=== PATIENT | male | born 1940 | race Caucasian/White ===

== ENCOUNTER 2023-02-08 12:47 | Outpatient (OUT) | payer MEDICARE, BC, SELFPAY ==
[2023-02-08 13:21] LABS: Basophils Percent Auto 0.9 % (0.2-2.0); Eosinophils Absolute Auto 0.1 10^3/uL (0.0-0.7); Eosinophils Percent Auto 2.8 % (0.9-7.0); Hematocrit 40.3 % (42.0-54.0); Hemoglobin 13.5 g/dL (14.0-18.0); Immature Granulocytes Abs Auto 0.02 10^3/uL (0.00-0.03); Immature Granulocytes Pct Auto 0.5 % (0.0-0.5); Lymphocytes Percent Auto 22.8 % (20.5-60.0); Mean Corpuscular HGB Conc 33.5 g/dL (29.9-35.2); Mean Corpuscular Volume 92.4 fL (80.0-94.0); Mean Platelet Volume 9.2 fL (9.5-13.5); Monocytes Absolute Auto 0.4 10^3/uL (0.3-0.8); Monocytes Percent Auto 9.7 % (1.7-12.0); Neutrophils Absolute Auto 2.8 10^3/uL (1.4-6.5); Neutrophils Percent Auto 63.3 % (43.0-75.0); Platelet Count 154 10^3/uL (150-450); Red Blood Count 4.36 10^6/uL (4.70-6.10); Red Cell Distribution Width 13.4 % (11.0-15.0); White Blood Count 4.3 10^3/uL (4.0-11.0)
[2023-02-08 13:37] LABS: Estimated Average Glucose 166 mg/dL; Glycohemoglobin A1C 7.4 % (4.5-6.2)
[2023-02-08 13:55] LABS: Anion Gap 12.6; BUN Creatinine Ratio 11.9; Calcium 8.8 mg/dL (8.5-10.1); Carbon Dioxide 27.5 mmol/L (21.0-32.0); Chloride 100 mmol/L (98-107); Estimated GFR (African America 57 (>=60); Estimated GFR (Non-African Ame 47 (>=60); Glucose 193 mg/dL (74-106); Potassium 4.1 mmol/L (3.5-5.1); Sodium 136 mmol/L (136-145); Thyroid Stimulating Hormone 0.982 uIU/mL (0.358-3.740)
== END 2023-02-08 12:48 ==
PROVIDERS: PCP Internal Medicine; Visit Provider Internal Medicine
DX: I11.0 Hypertensive heart disease with heart failure (principal); I50.32 Chronic diastolic (congestive) heart failure; E11.65 Type 2 diabetes mellitus with hyperglycemia; R53.83 Other fatigue
CPT/HCPCS: 36415; 80048; 83036; 83880; 84443; 85025

== ENCOUNTER 2023-02-19 09:53 | Outpatient (OUT) | payer MEDICARE, BC, SELFPAY ==
--- NOTE | 2023-02-19 09:57 | CT_ITS ---
[address] [address] Patient Name: JOSE L AMES MRN: [id number] date: 1940 Sex: M Assigned Patient Location: CT Current Patient Location: CT Accession/Order Number: [id number] Exam Date: 02/19/2023 10:08 Report Date: 02/19/2023 10:59 At the request of: SHERIF ALEJANDRO Procedure: CT chest wo con EXAMINATION: CT chest wo con HISTORY: Bilateral pulmonary infiltrates R91.8 , weakness, chronic cough, smoker who COMPARISON: No relevant comparison available. TECHNIQUE: Multi-planar CT images were obtained without and/or with IV contrast as indicated by examination type. Axial, Coronal, and Sagittal images. Dose reduction techniques were achieved by using automated exposure control and/or adjustment of mA and/or kV according to patient size and/or use of iterative reconstruction technique. FINDINGS: LUNGS: 5 mm poorly marginated nodule within lateral aspect of right middle lobe. Calcified 10 mm nodule within the anterior base of left lower lobe. Mild emphysematous changes. No acute infiltrates. PLEURA: No mass, effusion, or pneumothorax. VASCULATURE: No abnormality. RISSA: Calcified left hilar lymph nodes compatible with chronic granulomatous disease. MEDIASTINUM: Calcified lymph nodes. CARDIAC: Atherosclerotic coronary artery disease. AORTA: No aneurysm or dissection. CHEST WALL: No mass or axillary adenopathy. BONES: No bone lesion or fracture. LIMITED ABDOMEN: Fatty infiltration of the liver. No suspicious findings Limited images of the upper abdomen. OTHER: Negative. IMPRESSION: 1. No acute infiltrates, pleural effusion, or acute findings. 2. 5 mm nodule within right middle lobe. Follow-up CT chest without contrast in 3, 6, 12, 24 months is recommended to document stability and to evaluate for change. 3. Mild emphysematous changes. Electronically authenticated by: BLAINE FONSECA Date: 02/19/2023 10:59
== END 2023-02-19 09:54 ==
LOC: CT 09:54
PROVIDERS: PCP Internal Medicine; Visit Provider Internal Medicine
DX: R91.8 Other nonspecific abnormal finding of lung field (principal)
CPT/HCPCS: 71250

== ENCOUNTER 2023-06-04 10:26 | Outpatient (OUT) | payer MEDICARE, BC, SELFPAY ==
[2023-06-04 11:02] LABS: Estimated Average Glucose 166 mg/dL; Glycohemoglobin A1C 7.4 % (4.5-6.2)
[2023-06-04 13:23] LABS: Basophils Percent Auto 0.8 % (0.2-2.0); Eosinophils Absolute Auto 0.1 10^3/uL (0.0-0.7); Eosinophils Percent Auto 2.3 % (0.9-7.0); Hemoglobin 13.3 g/dL (14.0-18.0); Immature Granulocytes Abs Auto 0.03 10^3/uL (0.00-0.03); Immature Granulocytes Pct Auto 0.6 % (0.0-0.5); Lymphocytes Percent Auto 19.5 % (20.5-60.0); Mean Corpuscular HGB Conc 33.3 g/dL (29.9-35.2); Mean Corpuscular Hemoglobin 31.9 pg (25.9-34.0); Mean Corpuscular Volume 95.9 fL (80.0-94.0); Mean Platelet Volume 10.2 fL (9.5-13.5); Monocytes Absolute Auto 0.5 10^3/uL (0.3-0.8); Monocytes Percent Auto 9.2 % (1.7-12.0); Neutrophils Absolute Auto 3.3 10^3/uL (1.4-6.5); Neutrophils Percent Auto 67.6 % (43.0-75.0); Platelet Count 148 10^3/uL (150-450); Red Blood Count 4.17 10^6/uL (4.70-6.10); Red Cell Distribution Width 12.8 % (11.0-15.0); White Blood Count 4.9 10^3/uL (4.0-11.0)
[2023-06-04 14:52] LABS: Alanine Aminotransferase 35 U/L (16-63); Albumin Globulin Ratio 1.1; Albumin Level 3.6 g/dL (3.4-5.0); Alkaline Phosphatase 95 U/L (46-116); Anion Gap 11.3; Aspartate Amino Transferase 15 U/L (15-37); BUN Creatinine Ratio 12.3; Bilirubin Total 0.3 mg/dL (0.2-1.0); Carbon Dioxide 29.1 mmol/L (21.0-32.0); Chloride 100 mmol/L (98-107); Estimated GFR (African America >60 (>=60); Estimated GFR (Non-African Ame 57 (>=60); Globulin 3.3 g/dL; Glucose 183 mg/dL (74-106); Potassium 4.4 mmol/L (3.5-5.1); Sodium 136 mmol/L (136-145); Total Protein 6.9 g/dL (6.4-8.2)
== END 2023-06-04 10:27 | disposition home or self-care (01) ==
LOC: LAB 10:29
PROVIDERS: PCP Internal Medicine; Visit Provider Internal Medicine
DX: I12.9 Hypertensive chronic kidney disease with stage 1 through stage 4 chronic kidney disease, or unspecified chronic kidney disease (principal); E11.65 Type 2 diabetes mellitus with hyperglycemia; N18.32 Chronic kidney disease, stage 3b
CPT/HCPCS: 36415; 80053; 83036; 85025

== ENCOUNTER 2023-08-15 10:55 | Outpatient (RCR) | payer MEDICARE, BC, SELFPAY | END 2023-09-01 07:00 | disposition home or self-care (01) | LOC: PT 10:55 | PROVIDERS: PCP Internal Medicine; Visit Provider Internal Medicine | DX: R42 Dizziness and giddiness (principal); M76.60 Achilles tendinitis, unspecified leg; M79.606 Pain in leg, unspecified | CPT/HCPCS: 97110; 97140; 97162 ==

== ENCOUNTER 2023-08-21 12:54 | Outpatient (OUT) | payer MEDICARE, BC, SELFPAY ==
[2023-08-21 13:18] LABS: Basophils Percent Auto 0.5 % (0.2-2.0); Eosinophils Absolute Auto 0.1 10^3/uL (0.0-0.7); Hematocrit 40.4 % (42.0-54.0); Hemoglobin 13.4 g/dL (14.0-18.0); Immature Granulocytes Abs Auto 0.02 10^3/uL (0.00-0.03); Immature Granulocytes Pct Auto 0.3 % (0.0-0.5); Lymphocytes Absolute Auto 1.4 10^3/uL (1.2-3.8); Lymphocytes Percent Auto 22.8 % (20.5-60.0); Mean Corpuscular HGB Conc 33.2 g/dL (29.9-35.2); Mean Corpuscular Hemoglobin 32.1 pg (25.9-34.0); Mean Corpuscular Volume 96.9 fL (80.0-94.0); Mean Platelet Volume 9.9 fL (9.5-13.5); Monocytes Absolute Auto 0.6 10^3/uL (0.3-0.8); Monocytes Percent Auto 10.6 % (1.7-12.0); Neutrophils Absolute Auto 3.9 10^3/uL (1.4-6.5); Neutrophils Percent Auto 64.8 % (43.0-75.0); Platelet Count 146 10^3/uL (150-450); Red Blood Count 4.17 10^6/uL (4.70-6.10); Red Cell Distribution Width 13.3 % (11.0-15.0)
[2023-08-21 13:27] LABS: Alanine Aminotransferase 40 U/L (16-63); Albumin Level 3.5 g/dL (3.4-5.0); Alkaline Phosphatase 95 U/L (46-116); Anion Gap 10.8; Aspartate Amino Transferase 11 U/L (15-37); BUN Creatinine Ratio 16.6; Bilirubin Total 0.3 mg/dL (0.2-1.0); Calcium 9.5 mg/dL (8.5-10.1); Carbon Dioxide 29.5 mmol/L (21.0-32.0); Chloride 100 mmol/L (98-107); Estimated GFR (African America 54 (>=60); Estimated GFR (Non-African Ame 44 (>=60); Globulin 3.4 g/dL; Glucose 188 mg/dL (74-106); Potassium 4.3 mmol/L (3.5-5.1); Sodium 136 mmol/L (136-145); Total Protein 6.9 g/dL (6.4-8.2)
[2023-08-21 13:43] LABS: Thyroid Stimulating Hormone 1.298 uIU/mL (0.358-3.740)
== END 2023-08-21 12:55 | disposition home or self-care (01) ==
LOC: LAB 12:55
PROVIDERS: PCP Internal Medicine; Visit Provider Internal Medicine
DX: E11.65 Type 2 diabetes mellitus with hyperglycemia (principal); E11.22 Type 2 diabetes mellitus with diabetic chronic kidney disease; N18.32 Chronic kidney disease, stage 3b; I12.9 Hypertensive chronic kidney disease with stage 1 through stage 4 chronic kidney disease, or unspecified chronic kidney disease; R53.83 Other fatigue
CPT/HCPCS: 36415; 80053; 84443; 85025

== ENCOUNTER 2023-08-21 13:13 | Outpatient (OUT) | payer MEDICARE, BC, SELFPAY ==
--- NOTE | 2023-08-21 13:16 | MR_ITS ---
The [address] [address] Patient Name: JOSE L AMES MRN: [id number] date: 1940 Sex: M Assigned Patient Location: LAB Current Patient Location: LAB Accession/Order Number: [id number] Exam Date: 08/21/2023 13:30 Report Date: 08/21/2023 15:09 At the request of: JAILYN SEPULVEDA Procedure: MR head/brain wo/w con EXAM: MR head/brain wo/w con HISTORY: Imbalance R26.89, Dizziness R42 COMPARISON: MR brain 11/03/2019. TECHNIQUE: Multiplanar multisequence MR imaging of the brain was performed with and without intravenous contrast. FINDINGS: Calvarium/skull base: No focal marrow replacing lesion suggestive of neoplasm. Orbits: Bilateral napaimute ocular lens replacements. Paranasal sinuses: Mild mucosal thickening involving the inferior right maxillary sinus. Brain: No restricted diffusion. Mild T2 FLAIR signal hyperintensities are present involving supratentorial and to a lesser extent central pontine white matter. Moderate parenchymal volume loss. No abnormal intracranial enhancement. No mass effect, hemorrhage, or hydrocephalus. Grossly normal flow-related signal in the major intracranial arteries and dural sinuses. MR/MR head/brain wo/w con IMPRESSION: No acute intracranial process. Senescent changes detailed above. Electronically authenticated by: HERNÁN DERAS Date: 08/21/2023 15:09
== END 2023-08-21 13:14 | disposition home or self-care (01) ==
LOC: LAB 13:13
PROVIDERS: PCP Internal Medicine; Visit Provider Nurse Practitioner Family
DX: E11.65 Type 2 diabetes mellitus with hyperglycemia (principal); E11.22 Type 2 diabetes mellitus with diabetic chronic kidney disease; N18.32 Chronic kidney disease, stage 3b; I12.9 Hypertensive chronic kidney disease with stage 1 through stage 4 chronic kidney disease, or unspecified chronic kidney disease; R53.83 Other fatigue; R26.89 Other abnormalities of gait and mobility; R42 Dizziness and giddiness
CPT/HCPCS: 36415; 70553; 80053; 84443; 85025; A9575

== ENCOUNTER 2023-09-02 08:42 | Outpatient (RCR) | payer MEDICARE, BC, SELFPAY | END 2023-09-03 15:55 | disposition home or self-care (01) | LOC: PT 08:42 | PROVIDERS: PCP Internal Medicine; Visit Provider Internal Medicine | DX: R42 Dizziness and giddiness (principal); M79.606 Pain in leg, unspecified; M76.60 Achilles tendinitis, unspecified leg ==

== ENCOUNTER 2023-10-01 20:53 | Outpatient (OUT) | payer MEDICARE, BC, SELFPAY ==
--- OUTSIDE RECORDS SUMMARY | 2023-10-01 20:56 | XMS_ITS | CCD ---
Author Name Unknown Address [address] [place] [address] Organization [facility] Care Team Providers Care Transmission Repairer Name Role Phone ERICH KEY Primary Care Physician [phone] DO Erich Key Primary Care Provider MD Javier Murray Admit Provider MD Randolph Velasquez Attending Provider [phone] Randolph Velasquez Attending Unavailable Erich Key Primary Care Unavailable Javier Murray Admitting Unavailable Erich Key Unavailable Pascual PRINCE Attending Unavailable NIKI, Pascual Admitting Unavailable Ramona Burnham Attending Unavailable NIKI, Pascual Attending Unavailable JAVON, ERICH Admitting Unavailable JAVON, ERICH Attending Unavailable JAVON, DR GORMAN Admitting Unavailable BALL, DR GORMAN Attending Unavailable JAVON, DR GORMAN Primary Care Unavailable BALL, DR GORMAN Consulting Unavailable JAVON, DR GORMAN Admitting Unavailable BALL, DR GORMAN Attending Unavailable BALL, DR GORMAN Primary Care Unavailable BALL, DR GORMAN Consulting Unavailable JAVON, DR GORMAN Admitting Unavailable BALL, DR GORMAN Attending Unavailable BALL, DR GORMAN Primary Care Unavailable BALL, DR GORMAN Consulting Unavailable JAVON, DR GORMAN Primary Care Unavailable HAY ., DR TRAN Admitting Unavailable HAY ., DR TRAN Attending Unavailable HAY ., DR TRAN Consulting Unavailable TROTTI, GIROLACRISTAL Consulting Unavailable Erich Key E Unavailable Unavailable Unavailable Staci Burnette Unavailable John, Dr. Connolly Referring Unavailable John, Dr. Connolly Attending Unavailable Javon, Dr. Erich Reed Primary Care See Lopez, Dr. Connolly Attending Unavailable Javon, Dr. Erich Reed Primary Care See Lopez, Dr. Connolly Referring Unavailable John, Dr. Connolly Attending Justin Key, Dr. Erich Reed Primary Care Dr. Cathleen Mckenzie Referring MD CATHLEEN Ramon Attending MD CATHLEEN Ramon Referring Unavailable Javon, Dr. Erich Reed Primary Care MD CATHLEEN Mckenzie Attending MD CATHLEEN Ramon Referring Unavailable Javon, Dr. Erich Reed Primary Care See Key, Dr. Erich Reed Primary Care MD CATHLEEN Mckenzie Attending MD CATHLEEN Ramon Referring Unavailable Javon, Dr. Erich Reed Primary Care See muller Allergies Allergy Classification Reported Allergen(s) Allergy Type Date of Onset Reaction(s) Facility (3 sources) Angiotensin Converting Enzyme (Shruti) Inhibitors; Translations: [SHRUTI Inhibitors] Allergy to substance 08-18-20 [facility] (20 sources) Acetaminophen Drug Allergy [facility] [employer] Other (1 source) Acetaminophen; Translations: [Tylenol] Drug Allergy [facility] (1 source) Acetaminophen Drug Allergy [facility] (1 source) patient allergy list reviewed by nurse or physicia Propensity to adverse reactions 07-11-20 Comment:Done [employer] Other Medications Current Medications Medication Drug Class(es) Dates Sig (Normalized) Sig (Original) acetaminophen 325 mg oral tablet (20 sources) Start: 09-10-2022 take 2 tablets by mouth every six hours as needed for pain acetaminophen 325 mg Tab 650 mg = 2 tab(s), Oral, q6hr, PRN pain, Refills(s) 0 Start Date: 09/10/22 Status: Ordered Start: 09-08-2022 take 650 mg by mouth every six hours Acetaminophen Active 650 MG PO Every 6 hours 0 September 08, 2022 12:00am take 1-2 tablets by mouth every eight hours as needed Acetaminophen 325 MG Oral Tablet TAKE 1 TO 2 TABLETS EVERY 8 HOURS NEEDED. Quantity: 0 Refills: 0 Ordered: 12-Nov-2022 DO Active take 2 tablets by mo ut every eight hours as needed for pain Acetaminophen 325 MG 2 tablets Orally every 8 hours as needed for pain/fever Active albuterol 0.83 mg/ml inhalation solution (14 sources) beta2-Adrenergic Agonist Start: 09-10-2022 take 2.5 mg by inhalation every four hours albuterol 0.083% Inh Idalia 3 mL 2.5 mg, 3 mL, NEB, q4hr Shortness of breath or wheezing, Refill(s) 0 Start Date: 09/10/22 Status: Ordered Albuterol Sulfat e (2.5 MG/3ML) 0.083% 3 mL as needed Inhalation every 6 hrs Not-Taking albuterol 0.833 mg/ml / ipratropium bromide 0.167 mg/ml inhalation solution (1 source) Anticholinergic, beta2-Adrenergic Agonist Start: 09-08-2022 take 1 mL by inhalation three times daily Ipratropium-Albuterol Active 3 ML INHALATION Three times daily September 08, 2022 12:00am amLODIPine 10 mg oral tablet (20 sources) Dihydropyridine Calcium Channel David Start: 09-08-2022 take 1 tablet by mouth every twenty-four hours amLODIPine Besylate 10 MG 1 tablet Orally Once a day Sep, Active take 1 tablet by mouth once kulwant y Norvasc 5 MG Oral Tablet Take 1 tablet daily Quantity: 0 Refills: 0 Ordered: 11-Mar-2023 DO Active amoxicillin 875 mg / clavulanate 125 mg oral tablet (1 source) Penicillin-class Antibacterial Start: 09-08-2022 take 1 tablet by mouth twice daily Amoxicillin-Pot Clavulanate Active 1 TAB PO Twice daily 14 September 08, 2022 12:00am aspirin 81 mg delayed release oral tablet (20 sources) Platelet Aggregation Inhibitor, Nonsteroidal Anti-inflammatory Drug Start: 09-10-2022 take 1 tablet by mouth once daily aspirin 81 mg Oral EC Tab 81 mg = 1 tab(s), Oral, Daily, Refills(s) 0 Start Date: 09/10/22 Status: Ordered Start: 02-19-2018 take 1 tablet by krunal th every twenty-four hours Aspirin 81 81 MG 1 tablet Orally Once a day Jan, Active Start: 02-19-2018 take 1 tablet by mouth once da daren Aspirin 81 81 MG 1 tablet Orally Once a day Jan, Active Start: 02-19-2018 120 actuat budesonide 0.16 mg/actuat / formoterol fumarate 0.0045 mg/actuat metered dose inhaler (18 sources) Corticosteroid, beta2-Adrenergic Agonist Start: 09-08-2022 Budesonide-Formoterol (Symbicort) 160-4.5 mcg/actuation HFA aerosol inhaler Active 1 INH INHALATION Twice daily 10.2 September 08, 2022 12:00am take 2 puff(s) by mouth twice da daren Symbicort 160-4.5 MCG/ACT Inhalation Aerosol INHALE 2 PUFFS TWICE DAILY. RINSE MOUTH AFTER USE. Quantity: 3 Refills: 0 Ordered: 12-Nov-2022 DO Active take 2 puff(s) by inhalation twi ce daily Symbicort 160-4.5 MCG/ACT 2 puffs Inhalation Twice a day Active carboxymethylcellulose sodiu m 5 mg/ml ophthalmic solution (20 sources) Refresh Tears 0. 5 % as directed Ophthalmic Active take 1 drop(s) into the eye(s) four times daily Refresh Tears 0.5 % Ophthalmic Solution INSTILL 1 DROP INTO BOTH EYES 4 TIMES DAILY. Quantity: 0 Refills: 0 Ordered: 12-Nov-2022 DO Active Centrum Silver 50+Men - (14 sources) Centrum Silver 5 0+Men - as directed Orally Active cephalexin 500 mg oral capsule (1 source) Cephalosporin Antibacterial Start: 2023 take 1 capsule by mouth every eight hours Cephalexin 500 MG 1 capsule Orally tid for 7 days Sep, Active cholecalciferol 0.01 mg oral tablet (4 sources) Vitamin D Start: 09-04-2022 take 10 ug by mouth once daily Cholecalciferol (Vitamin D3) Active 10 MCG PO Daily September 04, 2022 12:00am take 1 capsule by [facility] every twenty-four hours Vitamin D3 25 MCG (1000 UT) 1 capsule Orally Once a day Active Vitamin D3 125 M CG (5000 UT) Oral Capsule TAKE DIRECTED. Quantity: 0 Refills: 0 Ordered: 11-Mar-2023 DO Active Clotrimazole-Betameth & Zn Ox 1-0.05 & 20 % (12 sources) Clotrimazole-Bet ameth & Zn Ox 1-0.05 & 20 % as directed Externally Active cyclobenzaprine hydrochloride 5 mg oral tablet (20 sources) Muscle Relaxant take 1 tablet by mouth every twenty-four hours Cyclobenzaprine HCl 5 MG 1 tablet at bedtime as needed Orally Once a day Active doxycycline hyclate 100 mg oral tablet (1 source) Tetracycline- class Drug Start : 09-08 take 100 mg by mouth every twelve hours Doxycycline Hyclate Active 100 MG PO Q12H 10 September 08, 2022 12:00am 120 actuat fluticasone propionate 0.115 mg/actuat / salmeterol 0.021 mg/actuat metered dose inhaler (20 sources) Corticosteroi d, beta2-Adrener gic Agonist Start : 10-07 take 2 puff(s) by inhalation twice daily Advair HFA 115-21 MCG/ACT 2 puffs Inhalation Twice a day Replaces Symbicort Oct, Active Start: 10-07-2022 take 2 puff(s) by in halation every twelve hours Advair HFA 115-21 MCG/ACT Inhalation Aerosol INHALE 2 PUFFS AT 12 HOUR INTERVALS (MORNING AND EVENING). Quantity: 0 Refills: 0 Ordered: 12-Nov-2022 DO Active FreeStyle Lite Test - (20 sources) FreeStyle Lite T est - TEST TWICE DAILY*E11.9* for 25 Active glucagon (rdna) 1 mg injecti on (20 sources) Antihypoglycemic Agent Glucagon Emergen cy 1 MG/ML Injection Solution Reconstituted PRN for low Blood Glucose Quantity: 0 Refills: 0 Ordered: 12-Nov-2022 DO Active glucose 0.4 mg/mg oral gel (1 source) Start: 09-08-2022 Dextrose (Glut ose-15) 40 % Gel Active 0.6 GM PO PRN 0 September 08, 2022 12:00am 12 hr guaiFENesin 600 mg extended release oral tablet (1 source) Start: 09-08-2022 take 1 tablet by krunal th twice daily, then take 1 tablet by mouth every twelve hours Guaifenesin (Mucinex) 600 mg Tablet Extended Release 12hr Active 600 MG PO Twice daily September 08, 2022 12:00am Insulin Aspart U-100 (Novolog Flexpen U-100 Insulin) 100 unit/mL (3 mL) Insulin Pen (2 sources) Start: 09-08-2022 inject 1 dose by subcutaneous injection once at mealtime Insulin Aspart U-100 (Novolog Flexpen U-100 Insulin) 100 unit/mL (3 mL) Insulin Pen Active 1 sliding scale dose SUBCUT 3X/Day with meals and bedtime 0 September 08, 2022 12:00am Start: 09-08-2022 inject 5 [IU] by sub cutaneous injection once before mealtime Insulin Aspart U-100 (Novolog Flexpen U-100 Insulin) 100 unit/mL (3 mL) Insulin Pen Active 5 UNITS SUBCUT 3x/Day before meals 0 September 08, 2022 12:00am 3 ml insulin glargine 100 unt/ml pen injector (20 sources) Insulin Analog Start: 09-10-2022 Lantus Solosta r Pen 100 units/mL subcutaneous solution 20 unit(s), SubCutaneous, Daily, Refills(s) 0 Start Date: 09/10/22 Status: Ordered Start: 09-08-2022 Insulin Glargi ne (Lantus Solostar U-100 Insulin) 100 unit/mL (3 mL) Insulin Pen Active 15 UNITS SUBCUT Daily 0 September 08, 2022 12:00am Lantus SoloStar 100 UNIT/ML 20 units Subcutaneous daily Active Lactobacillus Combination No.4 (Probiotic) 3 billion cell capsule (1 source) Start: 09-08-2022 take 3 capsules by mouth once daily Lactobacillus Combination No.4 (Probiotic) 3 billion cell capsule Active 3000 MMU CELLS PO Daily September 08, 2022 12:00am administer with a meal lisinopril 20 mg oral tablet (20 sources) Angiotensin Converting Enzyme Inhibitor Start: 09-19-2022 End: 10-19-2022 take 1 tablet by mouth once daily lisinopril 20 mg Tab 20 mg = 1 tab(s), Oral, Daily, X 30 day(s), # 30 tab(s), Refills(s) 0, Pharmacy: [facility]/pharmacy #[id number], 180, cm, 08/07/21 10:07:00 EST, Height/Length Dosing, 110.8, kg, 08/07/21 10:07:00 EST, Weight Dosing Start Date: 09/19/22 Stop Date: 10/19/22 Status: Ordered Start: 09-08-2022 take 10 mg by mouth once daily Lisinopril Active 10 MG PO Daily September 08, 2022 12:00am Start: 12-23-2020 End: 09-08-2022 take 20 mg by mouth once daily Lisinopril Discontinued 20 MG PO Daily September 04, 2022 12:00am September 08, 2022 9:19am metFORMIN hydrochloride 1000 mg oral tablet (20 sources) Biguanide Start: 12-23-2020 take 1 tablet by mouth twice daily metformin 1000 mg oral tablet 1,000 mg = 1 tab(s), Oral, BID, Refills(s) 0 Start Date: 12/23/20 Status: Ordered take 1 tablet by krunal th every twelve hours metFORMIN HCl - 1000 MG Oral Tablet TAKE 1 TABLET EVERY 12 HOURS Quantity: 180 Refills: 0 Ordered: 12-Nov-2022 DO Active mupirocin 0.02 mg/mg topical ointment (20 sources) RNA Synthetase Inhibitor Antibacterial Mupirocin 2 % 1 appl ication Externally Twice a day for 30 days Active Mupirocin 2 % Ex ternal Ointment APPLY SPARINGLY TO AFFECTED AREA(S) TWICE DAILY Quantity: 0 Refills: 0 Ordered: 12-Nov-2022 DO Active potassium chloride 10 meq extended release oral tablet (20 sources) Start: 09-25-2022 take 1 tablet by krunal th every twenty-four hours Klor-Con 10 10 MEQ 1 Tablet Orally daily for 30 day(s) Sep, Active Start: 09-10-2022 take 1 tablet by krunal th once daily potassium chloride 15 mEq oral tablet, extended release 15 mEq = 1 tab(s), Oral, Daily, Refills(s) 0 Start Date: 09/10/22 Status: Ordered Start: 09-08-2022 take 15 mEq by mouth once kulwant y Potassium Chloride Active 15 MEQ PO Daily September 08, 2022 12:00am predniSONE 10 mg oral tablet (1 source) Start: 09-08-2022 take 1 tablet by mouth twice daily, then take 1 tablet by mouth once daily, then take 0.5 tablet by mouth once daily Prednisone Active 10 MG PO As Directed September 08, 2022 12:00am Take 1 tablet twice a day for 5 days then 1 tablet daily for 5 days then half a tablet daily Bronwyn-Bid Probiotic - (12 sources) Bronwyn-Bid Probiotic - as directed Orally Active Symbicort 160/4.5 inhalation aerosol with adapter (3 sources) Start: 09-10-2022 take 2 puff(s) by inhalation twice daily Symbicort 160/4.5 inhalation aerosol with adapter 2 puff(s), Inhalation, BID, Refill(s) 0 Start Date: 09/10/22 Status: Ordered tamsulosin hydrochloride 0.4 mg oral capsule (20 sources) alpha-Adrenergic David Start: 05-08-2021 take 1 capsule by mouth once daily tamsulosin 0.4 mg Cap 0.4 mg = 1 cap(s), Oral, Daily, Refills(s) 0 Start Date: 05/08/21 Status: Ordered tiotropium 0.018 mg inhalation powder (20 sources) Anticholinergic Start: 09-10-2022 take 1 capsule by inhalation once daily Spiriva HandiHaler 18 mcg inhalation capsule 18 mcg = 1 cap(s), Inhalation, Daily, Refills(s) 0 Start Date: 09/10/22 Status: Ordered Start: 09-08-2022 take 1 capsule by in halation once daily Tiotropium Power (Spiriva With Handihaler) 18 mcg capsule, w/inhalation device Active 1 CAP INHALATION Daily September 08, 2022 12:00am puncture 1 cap using device; one dose = 2 inhalations Spiriva HandiHal er 18 MCG 1 Casule Inhalation Once a day for 30 days Active tiZANidine 2 mg oral tablet (20 sources) Central alpha-2 Adrenergic Agonist take 0.5-1 tablets by mouth once daily at bedtime tiZANidine HCl 2 MG TAKE 1/2 TO 1 TABLET BY MOUTH EVERY DAY AT BEDTIME for 30 Active torsemide 10 mg oral tablet (20 sources) Loop Diuretic Start: 09-08-2022 take 1 tablet by mouth every twenty-four hours Torsemide 10 MG 1 tablet Orally Once a day Sep, Active Torsemide 10 MG 2 Orally daily Active Vitamin D3 25 MCG (1000 UT) (20 sources) take 1 capsule by mouth once len ly Vitamin D3 25 MCG (1000 UT) 1 capsule Orally Once a day Active Completed/Discontinued Medications Medication Drug Class(es) Dates Sig (Normalized) Sig (Original) azithromycin 250 mg oral tablet (3 sources) Macrolide Antimicrobial Start: 01-10-2023 Azithromycin 250 MG Oral Tablet Quantity: 6 Refills: 0 Ordered: 10-Jan-2023 DO Start : 10-Jan-2023 Complete Start: 01-10-2023 Azithromycin 2 50 MG as directed Orally daily for 5 days December, Active B-12 - up to 1000 mcg (20 sources) Start: 07-23-2023 B-12 - up to 1 000 mcg Jul, 1000 mcg Start: 06-18-2023 B-12 - up to 1 000 mcg Jun, 1000 mcg Start: 03-20-2023 B-12 - up to 1 000 mcg Mar, 1000 mcg Start: 02-11-2023 Start: 02-11-2023 B-12 - up to 1 000 mcg Jan, 1000 mcg Start: 01-10-2023 Start: 01-10-2023 B-12 - up to 1 000 mcg December, 1000 mcg Start: 11-28-2022 Start: 11-28-2022 B-12 - up to 1 000 mcg Oct, 1000 mcg Start: 10-26-2022 Start: 10-26-2022 B-12 - up to 1 000 mcg Oct, 1000 mcg Start: 09-24-2022 Start: 09-24-2022 B-12 - up to 1 000 mcg Sep, 1000 mcg carvedilol 6.25 mg oral tablet (16 sources) alpha-Adrenergic David, beta-Adrenergic David Start: 12-17-2022 take 1 tablet by mouth twice daily at mealtime Carvedilol 6.25 MG Oral Tablet TAKE 1 TABLET TWICE DAILY WITH MEALS. Quantity: 180 Refills: 1 Ordered: 17-Dec-2022 Cathleen Lopez MD Start : 17-Dec-2022 Active new start D/C Amlodipine celecoxib 100 mg oral capsule (1 source) Nonsteroidal Anti-inflammatory Drug Start: 09-04-2022 End: 09-08-2022 take 100 mg by mouth twice daily Celecoxib Discontinued 100 MG PO Twice daily September 04, 2022 12:00am September 08, 2022 9:19am DermacinRx Therazole Rocky 1-0.05 & 20 % External Therapy Pack (5 sources) DermacinRx Therazole Rocky 1-0.05 & 20 % External Therapy Pack as directed Quantity: 0 Refills: 0 Ordered: 12-Nov-2022 DO Active ferrous sulfate (11 sources) take 1 tablet by mouth once daily Ferrous Sulfate 325 (65 Fe) MG 1 tablet Orally Once a day Not-Taking take 1 tablet by krunal th every twenty-four hours Ferrous Sulfate 325 (65 Fe) MG 1 tablet Orally Once a day Not-Taking fluticasone propionate 0.05 mg/actuat metered dose nasal spray (20 sources) Corticosteroid Start: 09-04-2022 End: 09-08-2022 Fluticasone Propionate (Flonase) 50 mcg/actuation [place],Suspension Discontinued 1 SPRAY INTRANASAL Daily September 04, 2022 12:00am September 08, 2022 9:19am take 2 spray(s) nasal route once daily Fluticasone Propionate 50 MCG/ACT USE 2 SPRAYS IN EACH NOSTRIL ONCE DAILY for 90 Active take 2 spray(s) nasal route once daily Fluticasone Propionate 50 MCG/ACT USE 2 SPRAYS IN EACH NOSTRIL ONCE DAILY for 90 Active take 2 spray(s) nasal route once daily Flonase 50 MCG/ACT SUSP SPRAY 2 SPRAYS INTO EACH NOSTRIL EVERY DAY Quantity: 0 Refills: 0 Ordered: 12-Nov-2022 DO Active hydroCHLOROthiazide 12.5 mg oral tablet (1 source) Thiazide Diuretic Start: 09-04-2022 End: 09-08-2022 take 12.5 mg by mouth once daily Hydrochlorothiazide Discontinued 12.5 MG PO Daily September 04, 2022 12:00am September 08, 2022 9:19am Hydrochlorothiazide-12. 5 mg 12.5 MG (11 sources) Start: 02-19-2018 take 1 capsule by mouth once daily in the morning Hydrochlorothiazide-12 .5 mg 12.5 MG 1 capsule in the morning Orally Once a day Jan, Not-Taking 3 ml insulin aspart, human 100 unt/ml pen injector (1 source) Insulin Analog Start: 09-10-2022 NovoLOG FlexPen 100 units/mL injectable solution 5 unit(s), SubCutaneous, TIDAC, plus 150-199 3, 200-249 4, 250-299 7, 300-349 10, 350-399 12, 400-449 14, >450 20, Refills(s) 0 Start Date: 09/10/22 Status: Ordered ketoconazole 20 mg/ml topical cream (1 source) Azole Antifungal Start: 02-07-2023 Ketoconazole 2 % External Cream Quantity: 60 Refills: 0 Ordered: 07-Feb-2023 DO Start : 07-Feb-2023 Complete meloxicam 15 mg oral tablet (11 sources) Nonsteroidal Anti-inflammator y Drug take 1 tablet by mouth every twenty-fou r hours Meloxicam 15 MG 1 tablet Orally Once a day Not-Taking oxybutynin chloride 5 mg oral tablet (20 sources) Cholinergic Muscarinic Antagonist Start: 09-04-2022 End: 09-08-2022 take 5 mg by mouth at bedtime Oxybutynin Chloride Discontinued 5 MG PO Bedtime September 04, 2022 12:00am September 08, 2022 9:19am Start: 08-07-2021 take 1 tablet by krunal th once daily oxybutynin 10 mg ER Tab 10 mg = 1 tab(s), Oral, Daily, # 30 tab(s), Refills(s) 11, Pharmacy: [facility]/pharmacy #[id number], 180, cm, 08/07/21 10:07:00 EST, Height/Length Dosing, 110.8, kg, 08/07/21 10:07:00 EST, Weight Dosing Start Date: 08/07/21 Status: Ordered Problems Active Problems Problem Classification Problem Date Documented Da te Episodic/Chronic Abdominal pain (20 sources) Abdominal pain; Translations: [Unspecified abdominal pain] Resolved: 06-10-2020 Episodic Acute and unspecified renal failure (1 source) Acute kidney failure, unspecified; Translations: [ACUTE KIDNEY FAILURE UNSPECIFIED] Onset: 09-06-2022 Episodic Acute posthemorrhagic anemia (20 sources) Acute posthemorrhagic anemia; Translations: [Acute posthemorrhagic anemia] Episodic Administrative/social admission (4 sources) Counseling procedure with explicit context; Translations: [Tobacco abuse counseling] Onset: 09-04-2022 09-08-2022 Episodic Aortic; peripheral; and visceral artery aneurysms (20 sources) Aneurysm of left common iliac artery; Translations: [Aneurysm of iliac artery] Chronic Chronic kidney disease (11 sources) Chronic kidney disease stage 3A ; Translations: [Chronic kidney disease, Stage III (moderate)] Chronic Chronic obstructive pulmonary disease and bronchiectasis (20 sources) Chronic obstructive lung disease; Translations: [Chronic obstructive pulmonary disease, unspecified] Onset: 09-04-2022 Chronic Complications of surgical procedures or medical care (1 source) Infection following a procedure, other surgical site, initial encounter Episodic Conditions associated with dizziness or vertigo (6 sources) Benign paroxysmal positional vertigo; Translations: [Benign paroxysmal vertigo, bilateral] Episodic Congestive heart failure; nonhypertensive (20 sources) Diastolic heart failure; Translations: [Unspecified diastolic (congestive) heart failure] Onset: 09-04-2022 09-08-2022 Chronic Deficiency and other anemia (3 sources) Anemia due to blood loss 09-10-2022 Chronic Deficiency and other anemia (20 sources) Anemia due to chronic blood loss; Translations: [Iron deficiency anemia secondary to blood loss (chronic)] Chronic Deficiency and other anemia (20 sources) Pernicious anemia; Translations: [Vitamin B12 deficiency anemia due to intrinsic factor deficiency] Episodic Deficiency and other anemia (7 sources) Vitamin B12 deficiency anemia due to intrinsic factor deficiency; Translations: [VITAMIN B12 DEF ANEMIA DUE IF DEF] Onset: 11-01-2021 Episodic Diabetes mellitus with complications (20 sources) Type 2 diabetes mellitus; Translations: [Type 2 diabetes mellitus with hyperglycemia] Onset: 09-06-2022 Chronic Diabetes mellitus without complication (19 sources) Type 2 diabetes mellitus without complication; Translations: [Type 2 diabetes mellitus without complications] Onset: 07-03-2018 Chronic Disorders of lipid metabolism (20 sources) Mixed hyperlipidemia; Translations: [Mixed hyperlipidemia] Onset: 07-03-2018 12-23-2020 Chronic Diverticulosis and diverticulitis (20 sources) Diverticulosis of colon; Translations: [Diverticulosis of large intestine without perforation or abscess without bleeding] Onset: 07-03-2018 12-23-2020 Chronic Essential hypertension (20 sources) Essential hypertension; Translations: [Essential (primary) hypertension] Onset: 04-24-2022 Chronic Fever of unknown origin (3 sources) Fever, unspecified; Translations: [FEVER UNSPECIFIED] Onset: 09-04-2022 Episodic Fracture of upper limb (20 sources) Closed fracture of surgical neck of humerus; Translations: [Closed fracture of humerus] Onset: 04-28-2021 09-10-2022 Episodic Genitourinary symptoms and ill-defined conditions (7 sources) Urge incontinence; Translations: [Urge incontinence of urine] Onset: 09-10-2022 Chronic Genitourinary symptoms and ill-defined conditions (20 sources) Increased frequency of urination; Translations: [Micturition frequency and polyuria] Onset: 09-04-2022 Resolved: 06-10-2020 12-27-2020 Episodic Headache; including migraine (6 sources) Headache; Translations: [Headache, unspecified] Episodic Hyperplasia of prostate (20 sources) Benign prostatic hypertrophy with outflow obstruction; Translations: [Lower urinary tract symptoms due to benign prostatic hypertrophy] Onset: 07-03-2018 12-23-2020 Chronic Hypertension with complications and secondary hypertension (2 sources) Hypertensive heart disease with heart failure; Translations: [Hypertensive heart and chronic kidney disease] Onset: 12-11-2022 Chronic Immunizations and screening for infectious disease (6 sources) Vaccination given; Translations: [Encounter for immunization] Episodic Inflammatory conditions of male genital organs (1 source) Acute prostatitis Episodic Malaise and fatigue (20 sources) Asthenia; Translations: [Other malaise] Onset: 01-08-2019 09-07-2022 Episodic Miscellaneous mental health disorders (20 sources) Occipital headache; Translations: [Occipital headache] Chronic Nutritional deficiencies (20 sources) Vitamin D deficiency; Translations: [Vitamin D deficiency, unspecified] Onset: 11-01-2021 Chronic Other aftercare (20 sources) Long-term current use of insulin; Translations: [intermediate (current) use of insulin] Episodic Other aftercare (20 sources) H/O: high risk medication; Translations: [Other termite helper (current) drug therapy] Episodic Other aftercare (1 source) Other custodial (current) drug therapy; Translations: [OTH ASSISTED CURRENT DRUG THERAPY] Onset: 09-06-2022 Episodic Other aftercare (1 source) ad terminal makeup operator (current) use of aspirin; Translations: [ASSISTED CURRENT USE OF ASPIRIN] Onset: 09-06-2022 Episodic Other aftercare (1 source) intermediate (current) use of oral hypoglycemic drugs; Translations: [LD TEACHER USE ORAL HYPOGLYCEMIC DX] Onset: 09-06-2022 Episodic Other aftercare (5 sources) Post-discharge follow-up; Translations: [Other follow-up examination] Episodic Other aftercare (3 sources) intermediate (current) use of insulin Episodic Other aftercare (6 sources) Long-term current use of drug therapy; Translations: [Other termite helper (current) drug therapy] Episodic Other connective tissue disease (20 sources) Other symptoms and signs involving the nervous system; Translations: [Suspected sleep apnea] Episodic Other connective tissue disease (1 source) Achilles tendinitis, right leg Episodic Other diseases of veins and lymphatics (20 sources) Peripheral venous insufficiency; Translations: [Venous insufficiency (chronic) (peripheral)] Episodic Other diseases of veins and lymphatics (5 sources) Venous insufficiency (chronic) (peripheral) Episodic Other ear and sense organ disorders (20 sources) Impacted cerumen; Translations: [Impacted cerumen, right ear] Onset: 10-16-2018 Resolved: 06-10-2020 Episodic Other gastrointestinal disorders (20 sources) Flatulence, eructation and gas pain; Translations: [Abdominal distension (gaseous)] Episodic Other hematologic conditions (6 sources) Raised cardiac enzyme or marker; Translations: [Other specified abnormalities of plasma proteins] 09-04-2022 Episodic Other hematologic conditions (6 sources) Other specified abnormalities of plasma proteins; Translations: [Other abnormal blood chemistry] Onset: 09-04-2022 09-08-2022 Episodic Other injuries and conditions due to external causes (20 sources) 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, left arm, subsequent encounter; Translations: [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, left arm, subsequent encounter] Episodic Other injuries and conditions due to external causes (6 sources) History of fall; Translations: [History of falling] Episodic Other lower respiratory disease (1 source) Computed tomography result abnormal; Translations: [Other nonspecific abnormal finding of lung field] 09-08-2022 Episodic Other lower respiratory disease (2 sources) Other nonspecific abnormal finding of lung field; Translations: [Other nonspecific abnormal finding of lung field] Onset: 09-04-2022 Episodic Other lower respiratory disease (20 sources) Dyspnea; Translations: [Shortness of breath] Episodic Other lower respiratory disease (1 source) Hypoxemia; Translations: [HYPOXEMIA] Onset: 09-06-2022 Episodic Other lower respiratory disease (2 sources) Shortness of breath; Translations: [SHORTNESS OF BREATH] Onset: 09-06-2022 Episodic Other lower respiratory disease (4 sources) Dyspnea on exertion; Translations: [Shortness of breath] Episodic Other nervous system disorders (20 sources) Unsteadiness on feet; Translations: [Unsteady] Episodic Other nervous system disorders (6 sources) Abnormal gait; Translations: [Unsteadiness on feet] Episodic Other nervous system disorders (3 sources) General unsteadiness; Translations: [Unsteadiness on feet] Episodic Other non-epithelial cancer of skin (20 sources) 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; Translations: [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, including shoulder] Onset: 08-21-2022 Episodic Other nutritional; endocrine; and metabolic disorders (20 sources) Obese class I; Translations: [Body mass index (BMI) 34.0-34.9, adult] Onset: 07-11-2018 Chronic Other nutritional; endocrine; and metabolic disorders (20 sources) Obesity; Translations: [Obesity, unspecified] Chronic Pneumonia (except that caused by tuberculosis or sexually transmitted disease) (11 sources) Pneumonia; Translations: [Pneumonia, unspecified organism] Onset: 09-04-2022 Episodic Residual codes; unclassified (1 source) Disorientated; Translations: [Disorientation, unspecified] Onset: 09-10-2022 Episodic Residual codes; unclassified (1 source) Edema; Translations: [Edema, unspecified] Onset: 09-10-2022 Episodic Residual codes; unclassified (3 sources) Delirium 09-10-2022 Episodic Residual codes; unclassified (3 sources) Dependent edema 09-10-2022 Episodic Residual codes; unclassified (1 source) Tobacco user; Translations: [Tobacco use] 09-08-2022 Episodic Residual codes; unclassified (1 source) Tobacco use; Translations: [Tobacco use] Onset: 09-04-2022 Episodic Residual codes; unclassified (2 sources) Edema of lower extremity; Translations: [Edema] Episodic Respiratory failure; insufficiency; arrest (adult) (2 sources) Acute respiratory failure; Translations: [Acute respiratory failure with hypoxia] 09-04-2022 Episodic Respiratory failure; insufficiency; arrest (adult) (1 source) Respiratory failure; insufficiency; arrest (adult); Translations: [Acute respiratory failure with hypoxia] Onset: 09-04-2022 Septicemia (except in labor) (1 source) Sepsis, unspecified organism; Translations: [SEPSIS UNSPECIFIED ORGANISM] Onset: 09-06-2022 Episodic Skin and subcutaneous tissue infections (20 sources) Carbuncle of buttock; Translations: [Carbuncle of buttock] Episodic Spondylosis; intervertebral disc disorders; other back problems (20 sources) Lumbar spondylosis; Translations: [Spondylosis without myelopathy or radiculopathy, lumbar region] Onset: 07-03-2018 12-23-2020 Chronic Substance-related disorders (20 sources) Nicotine dependence; Translations: [Nicotine dependence, cigarettes, uncomplicated] Onset: 07-11-2018 Chronic Unclassified (3 sources) Asymptomatic microscopic hematuria 12-27-2020 Unclassified (3 sources) 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 05-08-2021 Unclassified (1 source) CONTACT W/AND (SUSP) EXPOS COVID-19; Translations: [CONTACT W/AND (SUSP) EXPOS COVID-19] Onset: 09-06-2022 Past or Other Problems Problem Classification Problem Date Documented Da te Episodic/Chronic Chronic kidney disease (3 sources) Chronic kidney disease Deficiency and other anemia (4 sources) Iron deficiency anemia, unspecified; Translations: [IRON DEFICIENCY ANEMIA UNSPECIFIED] Onset: 2 Episodic Mycoses (6 sources) Candidiasis of skin and nails; Translations: [Candidiasis of skin and nail] Resolved: 0 Episodic Other ear and sense organ disorders (6 sources) Cellulitis of right external ear; Translations: [Cellulitis of right external ear] Resolved: 0 Episodic Other gastrointestinal disorders (6 sources) H/O: gastrointestinal disease; Translations: [Personal history of other diseases of the digestive system] Resolved: 0 Episodic Other gastrointestinal disorders (6 sources) Altered bowel function; Translations: [Change in bowel habit] Resolved: 0 Episodic Other nutritional; endocrine; and metabolic disorders (9 sources) Simple obesity ; Translations: [Other obesity due to excess calories] Resolved: 0 05-01-2021 Chronic Other screening for suspected conditions (not mental disorders or infectious disease) (6 sources) Disorder of cardiovascular system; 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] Onset: 8 Episodic Residual codes; unclassified (6 sources) Reduced libido; Translations: [Decreased libido] Onset: 8 Episodic Screening and history of mental health and substance abuse codes (12 sources) Ex-smoker; Translations: [Personal history of tobacco use] Onset: 8 Episodic Comment on above: quit smoking in 2019 ; Spondylosis; intervertebral disc disorders; other back problems (6 sources) Backache; Translations: [Unspecified backache] Onset: 8 Episodic Unclassified (18 sources) Abdominal aortic aneurysm, without rupture, unspecified; Translations: [Abdominal aortic aneurysm, without rupture, unspecified] Results Test Name Value Interpretation Reference Range Facility Office Visit (Cardiology)on 03-11-2023 Follow-up visit Diagnoses/Problems Assessed Diastolic dysfunction with chronic heart failure (428.32) (I50.32) Hypertension (401.9) (I10) SOB (shortness of breath) on exertion (786.05) (R06.02) Diabetes (250.00) (E11.9) Class 1 obesity with body mass index (BMI) of 33.0 to 33.9 in adult (278.00,V85.33) (E66.9,Z68.33) Lower extremity edema (782.3) (R60.0) Orders Class 1 obesity with body mass index (BMI) of 33.0 to 33.9 in adult Healthy Weight Tips; Status:Complete; Done: [id number] Some eating tips that can help you lose weight.; Status:Complete; Done: [id number] Diabetes Hemoglobin A1C; Status:Canceled; Hyperlipidemia ALT - Alanine Aminotransferase, Serum; Status:Canceled; AST; Status:Canceled; Lipid Panel; Status:Canceled; Patient Instructions Please bring all medicines, vitamins, and herbal supplements with you when you come to the office. Prescriptions will not be filled unless you are compliant with your follow up appointments or have a follow up appointment scheduled as per instruction of your physician. Refills should be requested at the time of your visit. Follow up as needed only The provider reviewed the following test(s) and result(s) with the patient: echocardiogram and Myocardial perfusion study Chief Complaint JOSE L MAURICIO is being seen for a 6 month follow-up of. History of Present Illness Patient is accompanied by . Most recently seen in December 2019 at that time because of significant lower extremity edema we had suggested that he stop the amlodipine. Patient's complaint is fatigue. He denies any shortness of breath. He is quite ambivalent about his medical regimen, says that he does not look at the instructions and he does not know what he takes. He then points to his to be responsible for all his medications, she has a list but the list may not be accurate because it does not the patient remains on amlodipine. No recent laboratory data to review. Patient says that he is under the care of multiple physicians, who prescribed multiple medications, and it is very difficult for him to keep track of them all. Does not report any symptoms of hypoglycemia. Very high clinical suspicion for sleep apnea, in fact patient was sleeping in his chair when I walked into the room. Apparently sleep study has been recommended, but patient would not want to proceed. He says he feels fine . Assessment: 1 hospital stay September 2022 with acute hypoxemic respiratory failure, treated as pneumonia, there is some concern for diastolic heart failure 2. Elevated troponin-raising concern for underlying coronary artery disease, in patient with several risk factors 3. Ex smoker for more than 60 years, having quit about 2 years ago. 4. COPD 5. Hypertension 6. Increased BMI 7. BPH 8. Type 2 diabetes, insulin requiring 9. History of open reduction and internal fixation of fracture of the left arm, history of TURP in 2014, history of colon resection 10. Echocardiogram September 2022-LVEF 60 to 65% impaired LV relaxation/diastolic dysfunction mild concentric LVH upper septal hypertrophy/sigmoid septum grossly normal valves aortic root 4 cm TAPSE 2.6 cm LV end-systolic dimension 2.8 cm RVSP could not be estimated 11. There is an EKG from the hospital dated 09/05/2022, that calls the rhythm to be atrial fibrillation however to my review it looks like sinus with isolated supraventricular premature beats. There is left axis deviation, deviation 12. Lexiscan Myoview December 2022-normal, transient ischemic dilatation 0.91, LVEF 63%, evidence of inferior apical attenuation artifact. 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 14. Lower extremity edema may improve if amlodipine is discontinued. Recommendations: 1. At this point, in order to minimize confusion from recommendations from multiple providers, and given the inconsistency regarding medical therapy, I will see Jose L on an as-needed basis, I will defer his blood pressure management to his primary care. If primary MD feels that patient should see me, I will be more than happy to reevaluate him. Patient with multiple cardiac risk factors multiple comorbidities, with recent hospital stay in the setting of hypoxemic respiratory failure due to pneumonia, could not exclude diastolic heart failure, and had mild elevation of troponin. Diagnosis is elevated troponin not related to myocardial injury, but possibly related to supply demand mismatch. Patient has chronic diastolic heart failure Shortness of breath class III multifactorial EKG today sinus rhythm 85 first-degree AV block NM interval 218 ms compared to EKG of 09/05/2022 heart rate has decreased. 1 Uses cane as ambulatory aid, no falls Surgical History Problems History of Arm surgery History of Cataract surgery History of Colon surgery History of Complete colonoscopy History of Tonsillectomy Current Meds Medication NameInstruction Acetaminophen 325 MG Or (more content not included)... Normal [facility] Tobacco Screening.on 023 Fall risk assessment a) No falls within the last year [facility] 250 DO Work Phone: Tobacco use status [facility] b) No M [facility] [employer] y 250 DO Work Phone: Office Visit (Cardiology)on 12-17-2022 Follow-up visit Patient Instructions Please bring all medicines, vitamins, and herbal supplements with you when you come to the office. Prescriptions will not be filled unless you are compliant with your follow up appointments or have a follow up appointment scheduled as per instruction of your physician. Refills should be requested at the time of your visit. Follow up in 3 months1 1 Amended By: Margie Garcia; Dec 17 2022 3:05 PM REBECAChijunior Lazo JOSE L MAURICIO is being seen for testing results. History of Present Illness Patient is accompanied by to the office. Has multiple cardiac risk factors including suboptimally controlled diabetes. He is here to go over results of his stress test. 1 Has not noticed any chest pressure tightness heaviness palpitations lightheadedness orthopnea or PND, does have lower extremity edema for which she was prescribed torsemide by primary care. Patient is complaining about the increased frequency of urination. Test results were reviewed. 1 This cardiology consultation was prompted by a hospital stay at [facility]. Patient was admitted in transfer from [facility], with hypoxemia cough congestion, treated for pneumonia, CT apparently showed more diffuse changes, raising the possibility for pulmonary vascular congestion. 1 Smoker for 60 years previously heavy recently half pack per day Flat elevation of troponin, not consistent with acute coronary syndrome or plaque rupture, however patient with high risk for having underlying coronary artery disease. Physical examination is notable for significant i.e. 3+ bilateral lower extremity edema. Recent laboratory data showed GFR 1 of 53 consistent with stage IIIa kidney disease. Hemoglobin A1c from September 02 of this year was elevated at 9.8, patient may have been on prednisone at that time. 1 Assessment: 1 1. 1 hospital stay September 2022 1 with acute hypoxemic respiratory failure, treated as pneumonia, there is some concern for diastolic heart failure 2. Elevated troponin-raising concern for underlying coronary artery disease, in patient with several risk factors 3. Ex smoker for more than 60 years, having quit about 2 years ago. 4. COPD 5. Hypertension 6. Increased BMI 7. BPH 8. Type 2 diabetes, insulin requiring 9. History of open reduction and internal fixation of fracture of the left arm, history of TURP in 2014, history of colon resection 10. Echocardiogram September 2022-LVEF 60 to 65% impaired LV relaxation/diastolic dysfunction mild concentric LVH upper septal hypertrophy/sigmoid septum grossly normal valves aortic root 4 cm TAPSE 2.6 cm LV end-systolic dimension 2.8 cm RVSP could not be estimated 11. There is an EKG from the hospital dated 09/05/2022, that calls the rhythm to be atrial fibrillation however to my review it looks like sinus with isolated supraventricular premature beats. There is left axis deviation 12. Lexiscan Myoview December 2022-normal, transient ischemic dilatation 0.91, LVEF 63%, evidence of inferior apical attenuation artifact. 1 Patient with multiple cardiac risk factors multiple comorbidities, with recent hospital stay in the setting of hypoxemic respiratory failure due to pneumonia, could not exclude diastolic heart failure, and had mild elevation of troponin. Diagnosis is elevated troponin not related to myocardial injury, but possibly related to supply demand mismatch. Patient has chronic diastolic heart failure Shortness of breath class III multifactorial 1 Uses cane as ambulatory aid, no falls Significant lower extremity edema, possibly related to diabetic nephropathy?, Amlodipine could be a contributory factor, alternatively chronic right-sided heart failure is not excluded, PA pressure could not be estimated on recent echocardiogram. Patient does not report any shortness of breath but seems to have a relatively limited activity lifestyle. Recommendations: 1. Discontinue amlodipine in view of the fact that lower extremity edema may improve 2. Carvedilol 6.25 mg p.o. twice daily, we were holding off on beta-blockers due to respiratory issues, at recent hospital stay 3. Follow-up in 2 to 3 months, at which time we will recommend further changes in medication such as? Adding Farxiga if affordable. Alternatively, will defer the decision of Kaylynn or Deep to Dr. Joiner.1 1 Amended By: Cathleen Lopez; Dec 17 2022 3:23 PM ESTCurrent Meds Medication NameInstruction Acetaminophen 325 MG Oral TabletTAKE 1 TO 2 TABLETS EVERY 8 HOURS NEEDED. Advair HFA 115-21 MCG/ACT Inhalation AerosolINHALE 2 PUFFS AT 12 HOUR INTERVALS (MORNING AND EVENING). Aspirin 81 MG Oral Tablet Delayed ReleaseTAKE 1 TABLET DAILY. DermacinRx Therazole Rocky 1-0.05 AND 20 % External Therapy Packas directed Flexeril 5 MG TABSTAKE 1 TABLET AT BEDTIME NEEDED. Flonase 50 MCG/ACT SUSPSPRAY 2 SPRAYS INTO EACH NOSTRIL EVERY DAY Glucagon Emergency 1 MG/ML Injection Solution ReconstitutedPRN for low Blood Glucose Klor- (more content not included)... Normal [place] Tobacco Screening.on 023 Adult depression screening assessment No [facility] [facility] [employer] 250 DO Work Phone: Fall risk assessment a) No falls within the last year [facility] 250 DO Work Phone: Tobacco use status [facility] b) No M [facility] 250 DO Work Phone: [facility] CARDIAC STRESS/REST INJE CTIONon 12-11-2022 [facility] CARDIAC STRESS/REST INJECTION Patient Name: JOSE L MAURICIO STUDY: MYOCARDIAL PERFUSION STRESS TEST WITH LEXISCAN Performing facility: [facility], [address] [place] [address], [address], [place] [id number] [facility] Provider: Cathleen Lopez MD, [facility] PCP: Dr. Alejandro KEY Supervising provider: Liz Morales MD INDICATION: R77.8: Elevated troponin I50.32: Diastolic dysfunction with chronic heart failure HISTORY: Gender: M; Age: 82 y/o ; Height: 0 cm; Weight: 216.8732426 kg. Diabetes; High Cholesterol; HTN; SOB; COPD; Quit smoking 2 years ago. COMPARISON: No comparison. ACCESSION NUMBER(S): [id number]; [id number]; [id number] ORDERING CLINICIAN: CATHLEEN LOPEZ TECHNIQUE: ONE DAY protocol. Stress injection: Date:12/11/22, 33.2 mCi of Myoview IV 20 seconds after rapid injection of Lexiscan. Rest injection: Date: 12/12/22, 35.2 mCi of Myoview IV at rest. The patient had a rapid injection of 0.4 mg of Lexiscan IV over 10 seconds. Imaging was performed by gated tomographic technique. Reason for Lexiscan: CANE STRESS TEST DATA: Resting heart rate was 78 BPM. Resting blood pressure was 136/78 mmHg. Peak blood pressure was 130/74 mmHg. Peak heart rate was 90 BPM. TEST TERMINATED DUE TO: Protocol completed FINDINGS: STRESS TEST RESULTS: Resting electrocardiogram revealed normal sinus rhythm. There were no significant ischemic ECG changes or dysrhythmias. The patient did not have chest pains/symptoms during procedure. There was a normal recovery phase. IMAGING RESULTS: Image quality was good. Rest and stress tomographic images were reviewed and revealed normal perfusion without evidence of ischemia, myocardial infarction, or left ventricular dilatation with stress. Overall left ventricular systolic function appeared to be normal without regional wall motion abnormalities. Ejection fraction was 63%. TID is 0.91 and is normal. There was evidence of inferoapical attenuation artifact. IMPRESSION: Normal Lexiscan Myoview cardiac perfusion stress test. No evidence of ischemia or myocardial infarction by perfusion imaging. Normal left ventricular systolic function, ejection fraction 63%. No previous studies are available for comparison. Electronically signed by: IRINA HALL MD Normal [facility] No Panel Informationon 12-11 [facility] 250 DO Work Phone: Office Visit (Cardiology)on 11-12-2022 Follow-up visit Diagnoses/Problems Assessed Hypertension (401.9) (I10) Hyperlipidemia (272.4) (E78.5) Elevated troponin (790.6) (R77.8) COPD (chronic obstructive pulmonary disease) (496) (J44.9) Hospital discharge follow-up (V67.59) (Z09) Diabetes (250.00) (E11.9) Diastolic dysfunction with chronic heart failure (428.32) (I50.32) Class 1 obesity with body mass index (BMI) of 34.0 to 34.9 in adult (278.00,V85.34) (E66.9,Z68.34) Former smoker (V15.82) (Z87.891) quit smoking in 2019 SOB (shortness of breath) on exertion (786.05) (R06.02) Orders Class 1 obesity with body mass index (BMI) of 34.0 to 34.9 in adult Healthy Weight Tips; Status:Complete; Done: 12Nov2022 Some eating tips that can help you lose weight.; Status:Complete; Done: 12Nov2022 Diastolic dysfunction with chronic heart failure, Elevated troponin NM Cardiac Stress/Rest Nuclear Med Order; Status:Hold For - Scheduling; Requested for:12Nov2022; Radiologist to Determine Optimal Study : Y What are the patient's signs and symptoms? : ELEVATED TROPONIN Elevated troponin IO EKG Electrocardiogram- 12 Lead; Status:Complete; Done: 12Nov2022 SocHx: Former smoker Tobacco Use Screening; Status:Complete; Done: 12Nov2022 Patient Instructions Please bring all medicines, vitamins, and herbal supplements with you when you come to the office. Prescriptions will not be filled unless you are compliant with your follow up appointments or have a follow up appointment scheduled as per instruction of your physician. Refills should be requested at the time of your visit. Follow-up after testing completed Chief Complaint JOSE L MAURICIO is being seen for CAD referral S/P [facility] [place]. History of Present Illness 82-year-old with multiple cardiac risk factors is being seen in cardiology consultation at the request of Dr. Key for evaluation of coronary artery disease. Patient ambulates with the help of a cane, and is very careful to avoid falls. 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 Accompanied by to the office. All medications so far are refilled by Dr. Key. This cardiology consultation was prompted by a hospital stay at [facility]. Patient was admitted in transfer from [facility], with hypoxemia cough congestion, treated for pneumonia, CT apparently showed more diffuse changes, raising the possibility for pulmonary vascular congestion. Reviewed extensive records and hospital chart. Reviewed Dr. Velasquez's discharge summary. Smoker for 60 years previously heavy recently half pack per day Flat elevation of troponin, not consistent with acute coronary syndrome or plaque rupture, however patient with high risk for having underlying coronary artery disease. Beta-blockers are being avoided because of the extent of COPD with reactive airway disease during hospital stay. Assessment: 1. Recent hospital stay with acute hypoxemic respiratory failure, treated as pneumonia, there is some concern for diastolic heart failure 2. Elevated troponin-raising concern for underlying coronary artery disease, in patient with several risk factors 3. Ex smoker for more than 60 years, having quit about 2 years ago. 4. COPD 5. Hypertension 6. Increased BMI 7. BPH 8. Type 2 diabetes, insulin requiring 9. History of open reduction and internal fixation of fracture of the left arm, history of TURP in 2015, history of colon resection 10. Echocardiogram September 2022-LVEF 60 to 65% impaired LV relaxation/diastolic dysfunction mild concentric LVH upper septal hypertrophy/sigmoid septum grossly normal valves aortic root 4 cm TAPSE 2.6 cm LV end-systolic dimension 2.8 cm RVSP could not be estimated 11. There is an EKG from the hospital dated 09/05/2022, that calls the rhythm to be atrial fibrillation however to my review it looks like sinus with isolated supraventricular premature beats. There is left axis deviation, Patient with multiple cardiac risk factors multiple comorbidities, with recent hospital stay in the setting of hypoxemic respiratory failure due to pneumonia, could not exclude diastolic heart failure, and had mild elevation of troponin. Diagnosis is elevated troponin not related to myocardial injury, but possibly related to supply demand mismatch. Patient has chronic diastolic heart failure Shortness of breath class III multifactorial EKG today sinus rhythm 85 first-degree AV block NM interval 218 ms compared to EKG of 09/05/2022 heart rate has decreased. Uses cane as ambulatory aid, no falls Recommendations: 1. In addition to ongoing risk factor modification, we will proceed with a Lexiscan Myoview. Follow-up after testing sooner if interval problems arise. Thank you for allowing us to participate in patient's care. Please do not hesitate to call if further questions arise, Sincerely, Cathleen Lopez MD [facility] I told patient that he should bring his inhalers and use them prior to his perfusion study. Current (more content not included)... Normal [facility] Tobacco Screening.on 023 Adult depression screening assessment No [facility] 250 DO Work Phone: Fall risk assessment a) No falls within the last year [facility] 250 DO Work Phone: Tobacco use status CP b) No M [facility] 250 DO Work Phone: Coding Summary.on 10-22-2022 Coding Summary. [id number] Gh0bWw+PGhlYWQ+PE1FV QDsW46stGLqrZ0MD4lRN N4UKHDBYYPLID8ZPG3cd RY0THxdZ3VqsnQr JekkkMXdGA87VMd5NOU6 sFioSLkpjP9jxZAmG6c6 EuIzWT74sQ45CLyzRNCz MfX4McFinikehZXv L4ssAhLobNYcNfx+PHRh YmxlIHdpZHRoPScxMDAl VmRpmYtdPP4lPa6uTZKm LWNvbGxhcHNlOiBj a9wnBALtLItyYA4qbRmc F5CybPC9BJArd9k7Gx78 dHI+ELYgZKO5eClgIZzs o445YcHxh9vpZSP6 wLBqNLazVML7S91kw3A0 TPLgXAMpKGZ4cUI7fX6a zQigixutG1EjsYIuOgQ8 PQB1cEQitV3ctArp lkbkyM1sOzq+H42IZX6W BIGYHW1KTyb3A7RwEdfn dHI+YI90IDQcYF15gDUd hTZda4lpgAc6IlUp CRLdQDL6eXieENprg0Wr NDPlD89mvWRsm9B9GFHw mCnfkSYaQySilFY4sD0w GLotlbmak4cwplqb Gjntr1zasj11yW13B71y NOorFNBaQXH4LPZdOYZu gNgtiu5pnU5mQm9+IDxj l2phk8iewYn7NuEg MLVwyiKvdOvzHJI7s4Ib Fc74E2MgdUmpw2HmGqj3 np65uQRya2Q1aVF6UQsg YFEdwI2fHHfwOjG7 EAGfHbXhiP06pVQwZPit Uk0fnVqkoCveLG1eDGXh kullFSRszT2yHLJqsJJn pJhoNM0kVPKgnefy o966EtYdOZC6GCJfjBHc E1RjnB1lCiDkJHKlSCSq I2AwyARaZYnsE654AUcl SzE1WSIsstUeX4Dy JNFnkRcaSiL4j4N4So0V e1ImqiqfKOG0YDksUBGp JvOaKzHbDiO3S7GmFcf2 CQYphWruJX1mU0Jy FPBvhvyqxesxdBK9EIPo ICNtiZ50yTAiEIdmIi2y e8M2q796FPOkVINlmR91 Wb4jlYniSERvdJDV mL3ngkwcj2lrgusiQqOg UVZvBTr9LWw2JVMywAha ZvMlADV7SmD7UUT9bPAq sY2roVqkkfisxL9o Oyc+I73rpL0dERD2VXO9 fzodQWCqyyXlHL84OP29 O4HmYhbeeRAfgMZ+PGRp rcUgpXrhAN5vOyCi c7smj8LkGSymW5BtRPAj MNcrOmt2XTTsJZC4qSI9 hL0vFUYeQCczk9R5uTD9 D0QxkpXdac4va1lc VDPfUUdvE16ncWCge7L9 UHZhnAW8NPTmmEmlMbSj aB78Jvq+UKAkwUjos2Pj Dbdvu3alk2npbQm1 IjMwJSIgdmFsaWduPSJ0 t7XpKe23Q31yBJlcTQNc FHWhEIBhRLFoqYdxkk3e xQ1kKc5+PGNvbCB3 qUP7lA6zKMLfWmU0GAxj V011FaDgdXZfPdfrz0sy x7nykBc9LpNmJRUvmcLg xGqjMJK8w4DiPj91 T12wNCnpAQAoPGZtQMAk NXMvpCesaw8cbR2bPv8+ VA0on1ryay58vI01sOS+ WSYjQBK3qPfyOAad TIDpjI0mEZjyJwK9YMRj AlUljH53bKMwAFiiAy9g aVqzcBykUG4iWCYrrdlc t865ZwKoy6kwLMBe sDOsTBmvWZD3A64xs9O2 JYXoNBYnJNW3bNQ1kD2v bGlnbjogbGVmdDsgdmVy yGumCQzrHIyhE655 IHRvcDsnPlBhdGllbnQg JdTlLNi4S7AmSpr6IGJu dXicCE6oeYQjBTfeKo6w qPqcxDupQZ0aJSDx rrzfh716MeAqp1qsBSLi dBMsHUxoKON4V79cf3L3 UUThUTOvGGP2dCC0xH9w bGlnbjogbGVmdDsg ijFmmQlfTVetYYrpU483 IHRvcDsnPkJpcnRoIERh sZV0ZS48EW62bTFzr9X5 yWV5Z2LoCRQzcnst idzbvWX6XGBcOEGqaO07 Da6fmGjyGg1gGJOhIFO3 CMYguZYfA3VlnQ1vOeVq LGPlYCBlM3DfpTQb ELdkK412XCsxYaS7EDIy ziSvU5HtJQUxwBlhEvV4 m0E8Ts2KF6N8EN21GO14 tXNnp7S3eLZ0L1Of GTNvgqketrqebJJ2ODLd IEAyuY93Xo4ngIyyFq0e GETkGJR4YEHmuRUwM5Uf cF2lBoEmOMUbVEOq P5MxgANgAFehD072WHat MzP0WMThkxBxK5MxJHUc aDapMrU4l4H4Xl5YOTq3 CD58KJ81mPDfu4V7 vOO5P3MqZOWpetjrxgta wVF2BYYnKRVadO48Ub2b vTdqHn5uWUMwWRO3VRQb aAVvI0OtqM6bKsZi IRFaFESpH5WtrKMtUMip R531XWtoEgO6IJQwxiYs G4NoXHVczTptUhD2m1L4 At7VGBPwIX23ETZ6 tLS6DB42MV47C6IyQokh dGFibGU+PHRhYmxlIHdp ZHRoPScxMDAlJyBzdHls UQ2xVb7uVRVxMBTi jTrghLKiGdDcc5szLVLh JXsgMV5txVrqO8InyCD3 DEEkp0f5Ha55E18sE1Dv dXA+AHFqoUG5uLO0 fB8cAvJlXbV9ZObiE791 JbGiuCAjCqfoc1xyc3vf mUu8FjN1RHDobfRanWxe KYW2y9EbVa54J74x IHdpZHRoPSIxNSUiIHZh jJjksc7hhP5uJm1+PGNv yCA2zBR4wZ5fWjHmJwW6 XApiX046PvNfaBTq Ladrw8yel1wdvAt9XuKo MLNnyrOziGovIBD7q2Hj Ju29O5RqmAfkq8ViWvg0 mq01nSZbz8F1oZG5 X2XvDFLerigdeKYfrBxb PI9mLWZfrihqICSubC1z SFJvT2l2AeIdUxJ2WLdr G0IcbyZ9IBLtkCSw JIaoKKC2C50cd5V1STBe PMBxRDG8wFG4zW3dwHvo bjogbGVmdDsgdmVydGlj QOylMJqoX066WFPy qMhsHVShtQ2bFVEyoCRh uShaMI3nZWSqzdlkKymR AnGbZUzBNyZWMPk9I8Cd Pxi2NNFbcQicOZ7c iIArJQfuDy7jiZagaMpz IG8cDRTiycyrAWTulD7o VZWngCScyXwzVS8gIMOw ysiff121MySmQCP4 JPHvbPWqP1XwdD6rQyRh PYUiVTYbQ9PmtIKgXWqu G127LTyxRxT2AISifkYe P5CcUDEsjLvhXeP3 r0X2Vv1hVG4wET6gMQU9 NQ59LD92oKUux0S7uCE2 N2TzFMGmgtneskzoxAO7 HBOsKPLqzR46gXRk CWkwNi9sf6M8u000MTMl DXYaoX94Zp7eyJhoZZLh pUCBvA3vzobir3uqqdew UcAjECXhNFq5KEo3 TAYgnCnbReFlXJK6CjR6 KQH4tCNdgX0okYewkyva mD4lMri+ODQgWWVhcnM8 C1DdYku0IYLldPtt TV9isPBvBFkjOl1riWzo hTsgQL0zMPLykhqeFLXy dF2zKFTyaJIwqYyxXM6j JKIosoroy936YbRb SRB9MIKkqXIcH6UvnY7s KlPjWTFvGLBvF3BhoSXh CVxmR137NVcxHlL1RMMx ysPmF4UcGYXqlKar CbE3i3I9Kg9MTGgpUC51 UM72pKXyj7C2lPD6F7Xo PXRfbamfilyqyIB7YYWh FKZehZ93kULtKYnh Iy7of7B5w845OTWnYZLo zX12Do1wkPneVKNnuXJM gP9offsms6lxrcqcJwSd RERgMZu0XYv2ERFk pJjpJgGoUCT3EdR6ZFA5 bOQydT5eiWelufradW3m Oyc+PaWmtVTvnU9qOE02 JW91H9OwPvqjrTTl bGU+PHRhYmxlIHdpZHRo SPjtEAZsJgMntYmkCT1y Mq8xVTMsWQHspSvkcGDb IfFev8aqGLByVFpa ML1pjNztB0DahKC9MDMy g5z2Ik72F94kZ8MofKR+ LXNvuPO5fSL0oO2lRvVy TcD1WPxrG365IzBk eMGdYpbgc3gmk5dcnSa7 IjMwJSIgdmFsaWduPSJ0 c5TrHi14D16tGHunNFOi PSIyMCUiIHZhbGln zj6deK5gMw6+PGNvbCB3 lVU5yF1iQjSxFiB4WGgp P967DwGwmHUmRhbdI70b V9OviAN+PHRyPjx0 ZWItmKpaLN7rrTYhLQje Rj8pRHK9DvCrXtHuYFvf X0OhZAAvhokzmjrtmQD0 GVQzPNEmkD19Eh2i yXlzEx7sXVCmYRV7KYUp pPCqP7OueA4qLvHfXZZs ZZQtN1OrcCLnPBnvQ831 IRmyYrP8RRJyawIz W9WnDBOmtIvqSoQ6v1B8 Gg9NdIylqPTzQF3xOmOb CPc3N4EzHre7AEUjuPps ZG0pkVBoTHidKr0o gSrrqObmGK9rWPTrodoq j238KlUvs3ctNRVbfJDh SIjaDUA3N94mk5K9JKSs TVQwNTN0kKU5gG4b bGlnbjogbGVmdDsgdmVy oGzuNExgQPdyM707FNBx oLhgQfFLZpi0W1DgWsb9 WZVexNfwNC8xuAHo AHpdCt6kjIquzLamUL0p AXFresnqw230SeXtc2yc ZNYbaQElGZzbTIZ8W77w w3T8XCPiCNGwGEX1 lBQ5aA2rsNbqprlcxZMx dDsgdmVydGljYWwtYWxp X042BJZdqYozGf3IOvd8 Y5IgLry9CXBllAgu JP9cwAVmJSocWp7qnLzn eEacPU3eOLItnnore806 WuGgm8vdDBGnyENaXVvq AWK0M67pj3E7KMNr JISrPIG5rMO1uJ1nbBke bjogbGVmdDsgdmVydGlj SIztSSkhY774YCMreAum PlBheWVyOjwvdGQ+ HS22dw41G0CbUjasFwb9 POUvBSI9pOF4jZ9vHMLq GZvcy9G9xZC8J6UlxnPq uu4ng5hcJQGqPVmv Y29s (more content not included)... Normal [facility] Auto Diffon 10-18-2022 Basophils/100 WBC (Bld) 0.5 % Normal 0.0-2.0 F [facility] Comment on above: Order Comment: Order Added by Discern Expert. Performed By: #### 2 322071, 30550017, 3402541, 4367507, 7109260 #### [facility] [address] [place] [address] Basophils/Leukocytes Auto (Bld) [Pure # fraction] 0.0 E9/L Normal 0.0-0.2 [facility] Comment on above: Order Comment: Order Added by Discern Expert. Performed By: #### 2 928231, 32046774, 9214899, 4496800, 5501000 #### [facility] [address] [place] [address] Eosinophils/100 WBC (Bld) 3.3 % Normal 0.0-8.0 [facility] Comment on above: Order Comment: Order Added by Discern Expert. Performed By: #### 2 074227, 47941983, 0399173, 4316983, 4268404 #### [facility] [address] [place] [address] Eosinophils/Leukocytes Auto (Bld) [Pure # fraction] 0.2 E9/L Normal 0.0-0.5 [facility] Comment on above: Order Comment: Order Added by Discern Expert. Performed By: #### 2 795643, 35314361, 3682304, 8860774, 9185752 #### [facility] [address] [place] [address] Lymphocytes/100 WBC (Bld) 22.0 % Normal 14.0-50.0 [facility] Comment on above: Order Comment: Order Added by Discern Expert. Performed By: #### 2 637380, 15457384, 2613680, 7405629, 2970734 #### [facility] [address] [place] [address] Lymphocytes/Leukocytes Auto (Bld) [Pure # fraction] 1.3 E9/L Normal 1.0-4.0 [facility] Comment on above: Order Comment: Order Added by Silvia Expert. Performed By: #### 2 286800, 03193165, 3637717, 4767497, 3339642 #### [facility] [address] [place] [address] Monocytes/100 WBC (Bld) 9.4 % Normal 4.0-14.0 [facility] Comment on above: Order Comment: Order Added by Silvia Expert. Performed By: #### 2 740836, 36065355, 1798375, 0123211, 4048123 #### [facility] [address] [place] [address] Monocytes/Leukocytes Auto (Bld) [Pure # fraction] 0.6 E9/L Normal 0.2-1.0 [facility] Comment on above: Order Comment: Order Added by Silvia Expert. Performed By: #### 2 422180, 71771139, 2312800, 1999251, 8199359 #### [facility] [address] [place] [address] Neutrophils/100 WBC (Bld) 64.8 % Normal 36.0-75.0 [facility] Comment on above: Order Comment: Order Added by Silvia Expert. Performed By: #### 2 334839, 77530500, 9602569, 9623666, 9260484 #### [facility] [address] [place] [address] Neutrophils/Leukocytes Auto (Bld) [Pure # fraction] 4.0 E9/L Normal 2.0-7.5 [facility] Comment on above: Order Comment: Order Added by Discern Expert. Performed By: #### 2 254569, 10279832, 5495852, 2979157, 8962388 #### [facility] [address] [place] [address] CBC w/ Auto Diffon 3 Erythrocyte distribution width (RBC) [Ratio] 15.5 % High 10.9-14.2 [facility] Comment on above: Performed By: #### 2 224174, 96880158, 9558494, 6803326, 4437064 #### [facility] [address] [place] [address] Hematocrit (Bld) [Volume fraction] 37.5 % Low 37.7-49.0 [facility] Comment on above: Performed By: #### 2 002181, 14962436, 0808186, 2086819, 1022242 #### [facility] [address] [place] [address] Hemoglobin (Bld) [Mass/Vol] 12.5 g/dL Low 13.5-17.5 [facility] Comment on above: Performed By: #### 2 857548, 61190641, 5217626, 2897916, 3311046 #### [facility] [address] [place] [address] MCH (RBC) [Entitic mass] 30.6 pg Normal 27.0-34.0 [facility] Comment on above: Performed By: #### 2 630617, 82052698, 5806204, 6704183, 2500434 #### [facility] [address] [place] [address] MCHC (RBC) [Mass/Vol] 33.3 g/dL Normal 31.4-36.0 [facility] Comment on above: Performed By: #### 2 939596, 95237065, 2513187, 7523201, 6731761 #### [facility] [address] [place] [address] MCV (RBC) [Entitic vol] 91.8 fL Normal 80.0-100.0 [facility] Comment on above: Performed By: #### 2 986222, 36956672, 0271972, 0739703, 5405930 #### [facility] [address] [place] [address] Platelet mean volume (Bld) [Entitic vol] 7.9 fL Normal 6.4-10.8 [facility] Comment on above: Performed By: #### 2 971798, 84879668, 9066044, 9662361, 9124012 #### [facility] [address] [place] [address] Platelets (Bld) [#/Vol] 185.0 E9/L Normal 150.0-500.0 [facility] Comment on above: Performed By: #### 2 112659, 79801284, 0520789, 9783488, 6048510 #### [facility] [address] [place] [address] RBC (Bld) [#/Vol] 4.1 E12/L Low 4.3-5.9 [facility] Comment on above: Performed By: #### 2 558966, 24261376, 1301759, 5936580, 6426171 #### [facility] [address] [place] [address] WBC corrected for nucl RBC Auto (Bld) [#/Vol] 6.1 E9/L Normal 4.0-11.0 [facility] Comment on above: Performed By: #### 2 809622, 83130542, 9571277, 5599499, 0982945 #### [facility] [address] [place] [address] CMPon 10-18-2022 Albumin [Mass/Vol] 3.7 g/dL Normal 3.3-5.0 [facility] Comment on above: Performed By: #### 2 592116, 63406029, 0100072, 5167451, 0301164 #### [facility] [address] [place] [address] Albumin/Globulin (S) [Mass conc ratio] 1.2 Normal 1.1-2.2 [facility] Comment on above: Performed By: #### 2 633720, 02644339, 9434719, 2060113, 2359564 #### [facility] [address] [place] [address] ALP [Catalytic activity/Vol] 88 Int._Unit/L Normal 21-98 [facility] Comment on above: Performed By: #### 2 569969, 26297638, 0796571, 3496715, 6548493 #### [facility] [address] [place] [address] ALT No additional P-5'-P [Catalytic activity/Vol] 22 Int._Unit/L Normal 6-46 [facility] Comment on above: Performed By: #### 2 554415, 26692160, 5407483, 2021901, 1641269 #### [facility] [address] [place] [address] Anion gap [Moles/Vol] 14 mmol/L Normal 6-16 [facility] Comment on above: Performed By: #### 2 492305, 38929591, 2740479, 2792898, 0497196 #### [facility] [address] [place] [address] AST [Catalytic activity/Vol] 22 Int._Unit/L Normal 5-43 [facility] Comment on above: Performed By: #### 2 236503, 18281834, 1373287, 9454685, 0339038 #### [facility] [address] [place] [address] Bilirubin [Mass/Vol] 0.5 mg/dL Normal 0.0-1.1 [facility] Comment on above: Performed By: #### 2 272041, 50789780, 4493660, 6096030, 2632079 #### [facility] [address] [place] [address] Calcium [Mass/Vol] 9.1 mg/dL Normal 8.9-11.1 [facility] Comment on above: Performed By: #### 2 835944, 46233591, 9367063, 2706634, 5335147 #### [facility] [address] [place] [address] Chloride [Moles/Vol] 99 mmol/L Low 101-111 [facility] Comment on above: Performed By: #### 2 715438, 84110695, 9772825, 9316177, 0291669 #### [facility] [address] [place] [address] CO2 [Moles/Vol] 28 mmol/L Normal 21-31 [facility] Comment on above: Performed By: #### 2 267108, 65794540, 3424958, 0620781, 5964945 #### [facility] [address] [place] [address] Creatinine [Mass/Vol] 1.3 mg/dL Normal 0.5-1.3 [facility] Comment on above: Performed By: #### 2 343382, 85165824, 3349965, 5327711, 0347713 #### [facility] [address] [place] [address] Globulin (S) [Mass/Vol] 3.2 g/dL Normal 1.4-4.0 F [facility] Comment on above: Performed By: #### 2 805872, 41417064, 3014144, 8424931, 6589135 #### [facility] [address] [place] [address] Glucose [Mass/Vol] 102 mg/dL Normal 55-199 [facility] Comment on above: Result Comment: If t his glucose result represents a fasting glucose, interpretation should refer to the following reference range: 55-99 mg/dL Performed By: #### 2 557604, 98301184, 3560988, 2895683, 1231371 #### [facility] [address] [place] [address] Potassium [Moles/Vol] 4.8 mmol/L Normal 3.5-5.3 [facility] Comment on above: Performed By: #### 2 447534, 86776674, 2436219, 9720095, 4846685 #### [facility] [address] [place] [address] Protein [Mass/Vol] 6.9 g/dL Normal 6.0-7.8 [facility] Comment on above: Performed By: #### 2 929002, 00289700, 2070686, 8767574, 4517848 #### [facility] [address] [place] [address] Sodium [Moles/Vol] 136 mmol/L Normal 135-145 [facility] Comment on above: Performed By: #### 2 201034, 61106422, 3640886, 3316584, 3995397 #### [facility] [address] [place] [address] Urea nitrogen [Mass/Vol] 18 mg/dL Normal 5-21 [facility] Comment on above: Performed By: #### 2 107046, 50801279, 6059065, 2483379, 3242348 #### [facility] [address] [place] [address] Urea nitrogen/Creatinine [Mass ratio] 14 No Units Normal 10-20 [facility] Comment on above: Performed By: #### 2 805084, 57205423, 9149558, 3316866, 7381532 #### [facility] [address] [place] [address] TSHon 10-18-2022 TSH Qn 1.62 m[IU]/L Normal 0.34-5.60 [facility] Comment on above: Performed By: #### 2 100336, 46779574, 6728396, 1064379, 7400972 #### [facility] [address] [place] [address] Urinalysison 10-18-2022 Bilirubin Ql (U) Negative Normal Negative [facility] Comment on above: Performed By: #### 2 103675, 37205673, 3142474, 1054538, 9149782 #### [facility] [address] [place] [address] Clarity (U) CLEAR Normal Clear [facility] Comment on above: Performed By: #### 2 457384, 18302858, 0667895, 1453200, 5594992 #### [facility] [address] [place] [address] Color (U) YELLOW Normal Yellow [facility] Comment on above: Performed By: #### 2 214731, 21487687, 2350741, 8029970, 3242324 #### [facility] [address] [place] [address] Epithelial cells.squamous LM.HPF (Urine sed) [#/Area] 0-2 Normal 0-2 [facility] Comment on above: Performed By: #### 2 171602, 65865475, 7594659, 3042408, 9491855 #### [facility] [address] [place] [address] Glucose Test strip (U) [Mass/Vol] Negative Normal Negative [facility] Comment on above: Performed By: #### 2 863923, 59106335, 7150764, 8902285, 5405889 #### [facility] [address] [place] [address] Hemoglobin Ql (U) Negative Normal Negative [facility] Comment on above: Performed By: #### 2 098373, 77679466, 8880984, 9132322, 0168949 #### [facility] [address] [place] [address] Ketones (U) [Mass/Vol] Negative Normal Negative [facility] Comment on above: Performed By: #### 2 086235, 66511389, 7289521, 2753491, 5181763 #### [facility] [address] [place] [address] [place].plasma/[place]. RBC (Bld) [Mass ratio] 0-3 Normal 0-3 [facility] Comment on above: Performed By: #### 2 799964, 74331323, 5831758, 2709879, 2564464 #### [facility] [address] [place] [address] Nitrite Ql (U) Negative Normal Negative [facility] Comment on above: Performed By: #### 2 949819, 51905065, 4740886, 7205974, 1307002 #### [facility] [address] [place] [address] pH (U) 6.0 [pH] Invalid Interpretation Code 5.0-9.0 [facility] Comment on above: Performed By: #### 2 152523, 04106511, 8551782, 5435822, 4189807 #### [facility] [address] [place] [address] Protein (U) [Mass/Vol] Negative Normal Negative [facility] Comment on above: Performed By: #### 2 616212, 99707013, 5268784, 1487031, 9680412 #### [facility] [address] [place] [address] 23226 Specific gravity (U) [Rel density] 1.015 Invalid Interpretation Code 1.005-1.030 [facility] Comment on above: Performed By: #### 2 390380, 63458639, 4483006, 8892123, 7161666 #### [facility] [address] [place] [address] Type of Urine collection method Clean Catch Normal [facility] Comment on above: Performed By: #### 2 895611, 65895393, 1911830, 2579281, 6034757 #### [facility] [address] [place] [address] Urobilinogen Qn (U) 0.2 {Zeb'U}/dL Normal 0.0-1.0 [facility] Comment on above: Performed By: #### 2 029268, 10264062, 3277526, 3731314, 3420401 #### [facility] [address] [place] [address] WBC Auto Ql (U) Negative Normal Negative [facility] Comment on above: Performed By: #### 2 258222, 77880887, 4788824, 0578816, 9184785 #### [facility] [address] [place] [address] WBC LM.HPF (Urine sed) [#/Area] 0-5 Normal 0-5 [facility] Comment on above: Performed By: #### 2 [id number], [id number], [id number], [id number], [id number] #### [facility] [address] [place] [address] eGFRon 10-18-2022 GFR/1.73 sq M.predicted among blacks MDRD (S/P/Bld) [Vol rate/Area] mL/min/{1.73_m2} Normal >=59 [facility] Comment on above: Order Comment: Order added by Discern Expert. Result Comment: eGFR is race adjusted. AA=. Performed By: #### 2 [id number], [id number], [id number], [id number], [id number] #### [facility] [address] [place] [address] GFR/1.73 sq M.predicted among non-blacks MDRD (S/P/Bld) [Vol rate/Area] 53 mL/min/1.73 m2 Low >=59 [facility] Comment on above: Order Comment: Order added by Discern Expert. Result Comment: [employer] deni kidney disease could be indicated at eGFR's of less than 60 mL/min/1.73m2. Kidney failure is indicated at less than 15 mL/min/1.73m2. Performed By: #### 2 [id number], [id number], [id number], [id number], [id number] #### [facility] [address] [place] [address] Physician Orderon 10-16-2022 Physician Order [id number] 0#1.00CD:127 Normal [facility] Physician Order [id number] 1#1.00CD:127 Normal [facility] Physician Order [id number] 8#1.00CD:127 Normal [facility] Physician Order [id number] 7#1.00CD:127 Normal [facility] CHEMISTRYOrdered By: Neli BALDERRAMA User on 09-19-2022 Glucose [Mass/Vol] 110 mg/dL High 55 - 99 mg/dL [facility] POC Subsection Comment on above: Result Comment: Na ara Meter POC Device SN [id number] Invalid Interpretation Code [facility] POC Subsection POC User ID [id number] Invalid Interpretation Code [facility] POC Subsection POC Username LOULOU WRIGHT Invalid Interpretation Code [facility] POC Subsection Glucose [Mass/Vol] 93 mg/dL Normal 55 - 99 mg/dL [facility] [place] [place] POC Subsection Comment on above: Result Comment: Na ara M[employer] POC Device SN [id number] Invalid Interpretation Code [facility] POC Subsection POC User ID [id number] Invalid Interpretation Code [facility] POC Subsection POC Username KRISTEN SHEPPARD Invalid Interpretation Code [facility] POC Subsection Capillary Glucose POCon 09-02 Glucose [Mass/Vol] 110 mg/dL High 55-99 [facility] Comment on above: Result Comment: Na ara Meter Performed By: #### 2 [id number], [id number], [id number], [id number], [id number] #### [facility] [address] [place] [address] Glucose [Mass/Vol] 93 mg/dL Normal 55-99 [facility] Comment on above: Result Comment: Na ara Meter Performed By: #### 2 [id number] #### [facility] [address] [place] [address] Family Medicine Office/Clini c Noteon 09-19-2022 Family Medicine Office/Clinic Note Chief Complaint Discharge History of Present Illness Patient is being seen today for discharge visit. Admit on 09/04 was originally at [place] then transferred to [facility] for hypoxia, cough, and congestion. Tx'd for pneumonia but CT showed more diffuse change not lobar. Coccyx area treated with mepilex dressing. Sent to TCU for skilled pt/ot. Patient on exam is pleasant. Says he is ready to go home. Denies any chest pain or SOB. Afebrile. VSSWNL. No patient or nursing concerns at this time. Home Health [facility]Jyvr Encounter Type: Medicare Reason for Oyzz-ve-Fetb (Diagnosis): DISCHARGE DIAGNOSIS Skilled Encounter Detail I certify that I conducted and documented that a cyym-iw-izjf (F2F) encounter with the consumer occurred within the 90 days prior to the home health services start of care date, or within 30 days following the start of care date (inclusive of the start of care date), preceding the certification of medical necessity. Snf: Yes Physical Therapy: Yes Occupational Therapy: Yes Speech Therapy: No Special Programs Director: No Putty Worker: No Need for Home Health Services I certify based on my findings that... a. Home health services are medically necessary for this patient, including either intermittent assisted and/or therapy, AND b. The patient cannot leave his/her home due to the following reasons: Musculoskeletal - _weaknes/ decreased functional ADL's My clinical finding(s) support the need for these services because: _weakness, ADL assist Certificate of Medical Necessity for Home Health Medicare Requirement I certify that I am the qualifying treating provider for the above-named consumer and that the consumer needs medically necessary home health services for the treatment of consumer's illness or injury that are appropriate for the consumer's diagnosis, prognosis, functional and medical conditions. Review of Systems as per HPI. all other ROS neg. Physical Exam General: Well developed, well nourished, in no acute distress Lungs: Normal respiratory effort and clear to auscultation Cardio: Regular rate and rhythm, no murmur Abdomen: Soft, non-distended, non-tender Musculoskeletal: No deformity noted. Normal range of motion. Joints normal. RLE: no edema_ LLE: no edema_ Neurologic: Grossly normal Skin: No rashes, ulcerations, or suspicious lesions Mental Status: Alert and oriented x3. Normal mood and affect Assessment/Plan 1. COPD type B (J44.9: Chronic obstructive pulmonary disease, unspecified) Smoker. Symbicort,spiriva, prn mednebs. No home O2. 2. DM2 (diabetes mellitus, type 2) (E11.9: Type 2 diabetes mellitus without complications) Lantus increased to 20U daily, Not on home insulin. Metformin 1000mg bid. A1c 9.8%. 3. Essential hypertension (I10: Essential (primary) hypertension) Lisinopril 20mg daily, amlodipine 10mg daily. 4. Pneumonia (J18.9: Pneumonia, unspecified organism) Viral versus lobar. Finished course of Augmentin and doxycycline. Orders: lisinopril, 20 mg = 1 tab(s), Oral, Daily, X 30 day(s), # 30 tab(s), Refills(s) 0, Pharmacy: [facility]/pharmacy #[id number], 180, cm, 08/07/21 10:07:00 EST, Height/Length Dosing, 110.8, kg, 08/07/21 10:07:00 EST, Weight Dosing Follow-up No qualifying data available Problem List/Past Medical History Ongoing Asymptomatic microscopic hematuria BPH with urinary obstruction Cigarette smoker COPD type B Delirium Dependent edema Diverticulosis of colon DM2 (diabetes mellitus, type 2) Essential hypertension Frequency of urination and polyuria Hypertension Lumbar spondylosis Mixed hyperlipidemia Obesity due to excess calories Pneumonia Radial nerve palsy Urge incontinence Urinary frequency Urinary incontinence Historical 3-part fracture of surgical neck of left humerus, initial encounter for closed fracture Anemia, blood loss Procedure/Surgical History ORIF - Open reduction and internal fixation of fracture (05/01/2021), Left arm (04/28/2021), Cystourethroscopy with dilation of urethral stricture (01/12/2021), TURP - Transurethral resection of prostate (2014), Complete resection of colon, Tonsillectomy. Medications acetaminophen 325 mg Tab, 650 mg= 2 tab(s), Oral, q6hr, PRN albuterol 0.083% Inh Idalia 3 mL, 2.5 mg= 3 mL, NEB, q4hr, PRN aspirin 81 mg Oral EC Tab, 81 mg= 1 tab(s), Oral, Daily Lantus Solostar Pen 100 units/mL subcutaneous solution, 20 unit(s), SubCutaneous, Daily lisinopril 20 mg Tab, 20 mg= 1 tab(s), Oral, Daily metformin 1000 mg oral tablet, 1000 mg= 1 tab(s), Oral, BID NovoLOG FlexPen 100 units/mL injectable solution, 5 unit(s), SubCutaneous, TIDAC oxybutynin 10 mg ER Tab, 10 mg= 1 tab(s), Oral, Daily, 11 refills potassium chloride 15 mEq oral tablet, extended release, 15 mEq= 1 tab(s), Oral, Daily Spiriva HandiHaler 18 mcg inhalation capsule, 18 mcg= 1 cap(s), Inhalation, Daily Symbicort 160/4.5 inhalation aerosol with adapter, 2 puff(s), Inhalation, BID (more content not included)... Normal [facility] Comment on above: Result Comment: Elec tronically Signed By: Tej CHILDRESS, Ramona Claros\.br\Date and Time Signed: 09/19/22 11:15 EST CHEMISTRYOrdered By: Lab ROP User on 09-18-2022 Glucose [Mass/Vol] 187 mg/dL High 55 - 99 mg/dL [facility] POC Subsection Comment on above: Result Comment: Na ara Meter POC Device SN [id number] Invalid Interpretation Code [facility] POC Subsection POC User ID [id number] Invalid Interpretation Code [facility] POC Subsection POC Username KRISTEN SHEPPARD Invalid Interpretation Code [facility] POC Subsection Capillary Glucose POCon 09-02 Glucose [Mass/Vol] 187 mg/dL High 55-99 [facility] Comment on above: Result Comment: Na ara Meter Performed By: #### 2 [id number] #### [facility] [address] [place] [address] Glucose [Mass/Vol] 133 mg/dL High 55-99 [facility] Comment on above: Result Comment: Na ara Meter Performed By: #### 2 302585, [id number], 3184270, 1654131, 6123638 #### [facility] [address] [place] [address] BMPon 09-17-2022 Anion gap [Moles/Vol] 14 mmol/L Normal 6-16 [facility] Comment on above: Performed By: #### 2 615839, [id number], 4590842, 5562323, 3533395 #### [facility] [address] [place] [address] Calcium [Mass/Vol] 8.8 mg/dL Low 8.9-11.1 [facility] Comment on above: Performed By: #### 2 279204, 16112294, 3478941, 7891099, 2917877 #### [facility] [address] [place] [address] Chloride [Moles/Vol] 97 mmol/L Low 101-111 [facility] Comment on above: Performed By: #### 2 603264, 29263157, 0786743, 1476183, 7117010 #### [facility] [address] [place] [address] CO2 [Moles/Vol] 28 mmol/L Normal 21-31 [facility] Comment on above: Performed By: #### 2 146581, [id number], 2696178, 0966259, 1150824 #### [facility] [address] [place] [address] Creatinine [Mass/Vol] 1.3 mg/dL Normal 0.5-1.3 [facility] Comment on above: Performed By: #### 2 401842, 61754803, 9781240, 5678982, 1579170 #### [facility] [address] [place] [address] Glucose [Mass/Vol] 89 mg/dL Normal 55-199 [facility] Comment on above: Result Comment: If t his glucose result represents a fasting glucose, interpretation should refer to the following reference range: 55-99 mg/dL Performed By: #### 2 099858, 68809322, 5824244, 1105062, 9046305 #### [facility] [address] [place] [address] Potassium [Moles/Vol] 4.2 mmol/L Normal 3.5-5.3 [facility] Comment on above: Performed By: #### 2 094438, 52216755, 4599575, 8373693, 1221697 #### [facility] [address] [place] [address] Sodium [Moles/Vol] 135 mmol/L Normal 135-145 [facility] Comment on above: Performed By: #### 2 650543, 65916818, 1158788, 7209044, 4691272 #### [facility] [address] [place] [address] Urea nitrogen [Mass/Vol] 20 mg/dL Normal 5-21 [facility] Comment on above: Performed By: #### 2 030830, 48319607, 8353608, 7704957, 3398195 #### [facility] [address] [place] [address] Urea nitrogen/Creatinine [Mass ratio] 15 No Units Normal 10-20 [facility] Comment on above: Performed By: #### 2 876315, 12316854, 7793686, 2735276, 1988810 #### [facility] [address] [place] [address] CHEMISTRYOrdered By: SYSTEM SYSTEM on 09-17-2022 Anion gap [Moles/Vol] 14 mmol/L Normal 6 - 16 mEq/L [facility] Remisol Calcium [Mass/Vol] 8.8 mg/dL Low 8.9 - 11. 1 mg/dL [facility] Remisol Chloride [Moles/Vol] 97 mmol/L Low 101 - 1 11 mmol/L [facility] Remisol CO2 [Moles/Vol] 28 mmol/L Normal 21 - 31 mmol/L [facility] Remisol Creatinine [Mass/Vol] 1.3 mg/dL Normal 0.5 - 1.3 mg/dL [facility] Remisol GFR/1.73 sq M.predicted among blacks MDRD (S/P/Bld) [Vol rate/Area] mL/min/1.73 m2 Normal >=59mL/min/1 .73 m2 [facility] Chem S GFR/1.73 sq M.predicted among non-blacks MDRD (S/P/Bld) [Vol rate/Area] 53 mL/min/1.73 m2 Low >=59mL/min/1 .73 m2 [facility] Chem S Glucose [Mass/Vol] 89 mg/dL Normal 55 - 199 mg/dL [facility] Remisol Potassium [Moles/Vol] 4.2 mmol/L Normal 3.5 - 5.3 mmol/L [facility] Remisol Sodium [Moles/Vol] 135 mmol/L Normal 135 - 145 mmol/L [facility] Remisol Urea nitrogen [Mass/Vol] 20 mg/dL Normal 5 - 21 mg/dL [facility] Remisol Urea nitrogen/Creatinine [Mass ratio] 15 mg/mg Normal 10 - 20 [facility] Remisol CHEMISTRYOrdered By: Omkar Angel on 09-17-2022 HbA1c (Bld) [Mass fraction] 9.8 % High <=5.9% [facility] ChemAutoSS Capillary Glucose POCon 09-02 Glucose [Mass/Vol] 175 mg/dL High 55-99 [facility] Comment on above: Result Comment: Na ara Meter Performed By: #### 2 390242, 16456885, 5323850, 7516285, 4298574 #### [facility] [address] [place] [address] Glucose [Mass/Vol] 104 mg/dL High 55-99 [facility] Comment on above: Result Comment: Na ara Meter Performed By: #### 2 965243, 34916598, 2809020, 7336011, 6067289 #### [facility] [address] [place] [address] Glucose [Mass/Vol] 153 mg/dL High 55-99 [facility] Comment on above: Result Comment: Na ara Meter Performed By: #### 2 853456, 15038489, 4244395, 6002264, 4757943 #### [facility] [address] [place] [address] Glucose [Mass/Vol] 94 mg/dL Normal 55-99 [facility] Comment on above: Result Comment: Na ara Meter Performed By: #### 2 626996, 13023122, 8049691, 6982985, 0086357 #### [facility] [address] [place] [address] [id number] 09-17-2022 HbA1c (Bld) [Mass fraction] 9.8 % High <=5.9 [facility] Comment on above: Performed By: #### 2 458678, 21443000, 3162811, 1377013, 0744198 #### [facility] [address] [place] [address] eGFRon 09-17-2022 GFR/1.73 sq M.predicted among blacks MDRD (S/P/Bld) [Vol rate/Area] mL/min/{1.73_m2} Normal >=59 [facility] Comment on above: Order Comment: Order added by Discern Expert. Result Comment: eGFR is race adjusted. AA=. Performed By: #### 2 065666, 27212217, 6841256, 2553711, 4470690 #### [facility] [address] [place] [address] GFR/1.73 sq M.predicted among non-blacks MDRD (S/P/Bld) [Vol rate/Area] 53 mL/min/1.73 m2 Low >=59 [facility] Comment on above: Order Comment: Order added by Discern Expert. Result Comment: [employer] deni kidney disease could be indicated at eGFR's of less than 60 mL/min/1.73m2. Kidney failure is indicated at less than 15 mL/min/1.73m2. Performed By: #### 2 603155, 30306891, 5922044, 6681787, 0027963 #### [facility] [address] [place] [address] Capillary Glucose POCon 09-02 Glucose [Mass/Vol] 165 mg/dL High 55-99 [facility] Comment on above: Result Comment: Na ara Meter Performed By: #### 2 210754, 52533542, 7871470, 1531426, 1441708 #### [facility] [address] [place] [address] Glucose [Mass/Vol] 137 mg/dL High [address] [place] [address] Comment on above: Result Comment: Na ara Meter Performed By: #### 2 730205, 90139773, 7019182, 2331575, 4773951 #### [facility] [address] [place] [address] Glucose [Mass/Vol] 127 mg/dL [address] Comment on above: Result Comment: Na ara Meter Performed By: #### 2 [id number] #### [facility] [address] [place] [address] Glucose [Mass/Vol] 123 mg/dL [address] Comment on above: Result Comment: Na ara Meter Performed By: #### 2 [id number] #### [facility] [address] [place] [address] Capillary Glucose POCon 09-02 Glucose [Mass/Vol] 221 mg/dL [address] Comment on above: Result Comment: Na ara Meter Performed By: #### 2 695597, 09502706, 3037819, 5653673, 1045345 #### [facility] [address] [place] [address] Glucose [Mass/Vol] 173 mg/dL [address] Comment on above: Result Comment: Na ara Meter Performed By: #### 2 743941, 76642326, 6817203, 1426480, 1662457 #### [facility] [address] [place] [address] Glucose [Mass/Vol] 152 mg/dL [address] Comment on above: Result Comment: Na ara Meter Performed By: #### 2 896156, 38700466, 7975450, 1314807, 4504775 #### [facility] [address] [place] [address] Capillary Glucose POCon 09-02 Glucose [Mass/Vol] 136 mg/dL [address] [facility] Comment on above: Result Comment: Na ara Meter Performed By: #### 2 [id number] #### [facility] [address] [place] [address] Glucose [Mass/Vol] 244 mg/dL High 55-99 [facility] Comment on above: Result Comment: Na ara Meter Performed By: #### 2 553089, 68742090, 4776744, 8508955, 9192585 #### [facility] [address] [place] [address] Glucose [Mass/Vol] 129 mg/dL High 55-99 [facility] Comment on above: Result Comment: Na raa Meter Performed By: #### 2 [id number] #### [facility] [address] [place] [address] Capillary Glucose POCon 09-02 Glucose [Mass/Vol] 316 mg/dL High 55-[address] [place] [address] Comment on above: Result Comment: Na ara Meter Performed By: #### 2 [id number] #### [facility] [address] [place] [address] Glucose [Mass/Vol] 194 mg/dL High 55-[address] [place] [address] Comment on above: Performed By: #### 2 245373, 59416631, 8763908, 5439112, 7848741 #### [facility] [address] [place] [address] Glucose [Mass/Vol] 150 mg/dL High 55-[address] [place] [address] Comment on above: Result Comment: Na ara Meter Performed By: #### 2 [id number] #### [facility] [address] [place] [address] Glucose [Mass/Vol] 209 mg/dL High 55-99 [facility] Comment on above: Result Comment: Na ara Meter Performed By: #### 2 436111, 85575839, 7383545, 6870915, 0738509 #### [facility] [address] [place] [address] Glucose [Mass/Vol] 142 mg/dL High 55-99 [facility] Comment on above: Result Comment: Na ara Meter Performed By: #### 2 762428, 09403265, 6341799, 2504376, 2632513 #### [facility] [address] [place] [address] Capillary Glucose POCon 09-02 Glucose [Mass/Vol] 260 mg/dL High 55-99 [facility] Comment on above: Result Comment: Na ara Meter Performed By: #### 2 181246, 40290343, 4662374, 5452299, 3877299 #### [facility] [address] [place] [address] Glucose [Mass/Vol] 181 mg/dL High -[address] [place] [address] Comment on above: Result Comment: Na ara Meter Performed By: #### 2 029886, 64955081, 2984707, 6989824, 9671351 #### [facility] [address] [place] [address] Glucose [Mass/Vol] 246 mg/dL High -[address] [place] [address] Comment on above: Result Comment: Na ara Meter Performed By: #### 2 873212, 86231920, 2399984, 9887481, 7449370 #### [facility] [address] [place] [address] Glucose [Mass/Vol] 141 mg/dL High -[address] [place] [address] Comment on above: Result Comment: Na ara Meter Performed By: #### 2 [id number] #### [facility] [address] [place] [address] Capillary Glucose POCon 09-02 Glucose [Mass/Vol] 377 mg/dL [place] [address] [place] [address] Comment on above: Result Comment: Na ara Meter Performed By: #### 2 758065, 56429770, 0383543, 4533983, 3513135 #### [facility] [address] [place] [address] Glucose [Mass/Vol] 279 mg/dL High 55-99 [facility] Comment on above: Result Comment: Repe at Test Performed By: #### 2 [id number] #### [facility] [address] [place] [address] Glucose [Mass/Vol] 230 mg/dL High 55-99 [facility] Comment on above: Result Comment: Na ara Meter Performed By: #### 2 [id number] #### [facility] [address] [place] [address] Glucose [Mass/Vol] 238 mg/dL High 55-99 [facility] Comment on above: Result Comment: Na ara Meter Performed By: #### 2 335312, 41097367, 6326238, 8894134, 3244110 #### [facility] [address] [place] [address] Family Medicine Office/Clini c Noteon 09-11-2022 Family Medicine Office/Clinic Note History of Present Illness [place]CU AD[place] [facility] [place]04 Was originally at [place] then transferred to [facility] for hypoxia, cough and congestion. Tx'd for PNA but CT with more of a diffuse change not lobar. Had troponin rise, not much else known as no narrative record sent and /son contacted and they don't have much info to add. Coccygeal area tx'd with meripex protective dressing. Admit WBC 11,300 discharge (on steroids) 13,600 and today 6300 Cr 1.45 --> 1.2 --> 1.1 Na+ 132 K+ 4.3 Hb 12.6 --> 13.6 PMHx- HTN, BPH s/p TURP, DM-2, obesity Admit TCU 05/24 for left humeral fx, ORIF after fall at home PCP Dr [facility] Baez Dtr is to Dr Simons Physical Exam 153/81 - 81 - 20 wt 241# which is what he was here in 2020 93 - 95% on O2 Large framed, obese WM seated in chair. Alert, pleasant but poor historian Lungs CTA Ht RRR wo murmur Abd obese BLE- 1-2+ edema Assessment/Plan Pt states doesn't really know his meds as handles it. I contacted and she says she sets them out but doesn't know what he takes. Son with her is from [place] and he doesn't know. 1. Pneumonia (J18.9: Pneumonia, unspecified organism) Viral vs lobar? COVID, Influenza was neg to finish augmentin and doxycycline (? was CAP?) Med lists from [facility] confusing- One nurses used on admit doesn't have all his home meds, and I found second list which has home meds to continue but not duration of antbx's. Wean O2 to sat >= 92% not prev on home oxygen rehab [facility] rec'd f/u CT Chest 6 wks out- will plan as OP thru PCP. 2. COPD type B (J44.9: Chronic obstructive pulmonary disease, unspecified) states smoked heavier as younger, still smoking some. Denies any inhalers at home Was sent out on symbicort 160, Spiriva which these seem to be new, and prn medneb d/c guaifenesin- not coughing or expectorating Shorten pred course given high BS's not prev on home oxygen 3. Cigarette smoker (F17.210: Nicotine dependence, cigarettes, uncomplicated) notes cont to smoke some at home 4. DM2 (diabetes mellitus, type 2) (E11.9: Type 2 diabetes mellitus without complications) not on insulin at home feels BS's were running high but says they never tested and is unaware of any A1c results Inc Lantus 20 units daily Cont SSI Resume home metformin to 1000 bid Check A1c with labs next week 5. Hypertension (I10: Essential (primary) hypertension) was prev on lisinopril 20, HCT 12.5 amlodipine 10 is new inc lisinopril 10 back to his usual 20 His Na+ today a little low so will stay off the HCT for now BMP next wk 6. Urge incontinence (N39.41: Urge incontinence) His biggest complaint Frequency and inability to hold since his TURP on tamsulosin, oxybutynin ER 10 at home- resume 7. Delirium (R41.0: Disorientation, unspecified) mild confusion noted Son notes was worse on hosp admission but denies issues at home. would still suspect some underlying dementia- sounds like may be dealing with some as well. monitor 8. Dependent edema (R60.9: Edema, unspecified) was started on torsemide 10 and KCL 15 daily- both unusual choices for apparent edema? Family unaware of any heart issues arising from stay again no discharge narrative sent. Knee high support hose daily Follow-up No qualifying data available Problem List/Past Medical History Ongoing Asymptomatic microscopic hematuria BPH with urinary obstruction Cigarette smoker COPD type B Delirium Dependent edema Diverticulosis of colon DM2 (diabetes mellitus, type 2) Essential hypertension Frequency of urination and polyuria Hypertension Lumbar spondylosis Mixed hyperlipidemia Obesity due to excess calories Pneumonia Radial nerve palsy Urge incontinence Urinary frequency Urinary incontinence Historical 3-part fracture of surgical neck of left humerus, initial encounter for closed fracture Anemia, blood loss Procedure/Surgical History ORIF - Open reduction and internal fixation of fracture (05/01/2021), Left arm (04/28/2021), Cystourethroscopy with dilation of urethral stricture (01/12/2021), TURP - Transurethral resection of prostate (2014), Complete resection of colon, Tonsillectomy. Medications acetaminophen 325 mg Tab, 650 mg= 2 tab(s), Oral, q6hr, PRN albuterol 0.083% Inh Idalia 3 mL, 2.5 mg= 3 mL, NEB, q4hr, PRN aspirin 81 mg Oral EC Tab, 81 mg= 1 tab(s), Oral, Daily Lantus Solostar Pen 100 units/mL subcutaneous solution, 20 unit(s), SubCutaneous, Daily lisinopril 20 mg Tab, 20 mg= 1 tab(s), Oral, Daily metformin 1000 mg oral tablet, 1000 mg= 1 tab(s), Oral, BID NovoLOG FlexPen 100 units/mL injectable solution, 5 unit(s), SubCutaneous, TIDAC oxybutynin 10 mg ER Tab, 10 mg= 1 tab(s), Oral, Daily, 11 refills potassium chloride 15 mEq oral tablet, extended release, 15 mEq= 1 tab(s), Oral, Daily Spiriva HandiHaler 18 mcg inhalation capsule, 18 mcg= 1 cap(s), Inhalation, Daily Symbicort 160/4.5 inhalation (more content not included)... Normal [facility] Comment on above: Result Comment: Elec tronically Signed By: NIKI DAUGHRETY, Pascual\.br\Date and Time Signed: 09/10/22 22:34 EST Auto Diffon 09-10-2022 Basophils/100 WBC (Bld) 0.2 % Normal 0.0-2.0 [facility] Comment on above: Order Comment: Order Added by Discern Expert. Performed By: #### 2 695501, 81839856, 7754885, 1890242, 4838164 #### [facility] [address] [place] [address] Basophils/Leukocytes Auto (Bld) [Pure # fraction] 0.0 E9/L Normal 0.0-0.2 [facility] Comment on above: Order Comment: Order Added by Discern Expert. Performed By: #### 2 926863, 96452771, 3399166, 5199223, 0593690 #### [facility] [address] [place] [address] Eosinophils/100 WBC (Bld) 0.6 % Normal 0.0-8.0 [facility] Comment on above: Order Comment: Order Added by Discern Expert. Performed By: #### 2 256299, 67989845, 9265535, 3220942, 9113698 #### [facility] [address] [place] [address] Eosinophils/Leukocytes Auto (Bld) [Pure # fraction] 0.0 E9/L Normal 0.0-0.5 [facility] Comment on above: Order Comment: Order Added by Discern Expert. Performed By: #### 2 289351, 65429175, 9785166, 1186589, 4947402 #### [facility] [address] [place] [address] Lymphocytes/100 WBC (Bld) 11.4 % Low 14.0-50.0 [facility] Comment on above: Order Comment: Order Added by Discern Expert. Performed By: #### 2 393364, 31980426, 2113424, 0557968, 5041220 #### [facility] [address] [place] [address] Lymphocytes/Leukocytes Auto (Bld) [Pure # fraction] 0.7 E9/L Low 1.0-4.0 [facility] Comment on above: Order Comment: Order Added by Discern Expert. Performed By: #### 2 290412, 75399429, 6138256, 2643127, 4208304 #### [facility] [address] [place] [address] Monocytes/100 WBC (Bld) 7.9 % Normal 4.0-14.0 [facility] Comment on above: Order Comment: Order Added by Discern Expert. Performed By: #### 2 191188, 24404141, 0498910, 1874506, 9373860 #### [facility] [address] [place] [address] Monocytes/Leukocytes Auto (Bld) [Pure # fraction] 0.5 E9/L Normal 0.2-1.0 [facility] Comment on above: Order Comment: Order Added by Discern Expert. Performed By: #### 2 240115, 18628582, 1782086, 4929217, 4715195 #### [facility] [address] [place] [address] Neutrophils/100 WBC (Bld) 79.9 % High 36.0-75.0 [facility] Comment on above: Order Comment: Order Added by Discern Expert. Performed By: #### 2 [id number], [id number], 7335459, 8578395, 5126264 #### [facility] [address] [place] [address] Neutrophils/Leukocytes Auto (Bld) [Pure # fraction] 5.0 E9/L Normal 2.0-7.5 [facility] Comment on above: Order Comment: Order Added by Discern Expert. Performed By: #### 2 015818, [id number], 1607914, 8767314, 9023110 #### [facility] [address] [place] [address] BMPon 09-10-2022 Anion gap [Moles/Vol] 11 mmol/L Normal 6-16 [facility] Comment on above: Performed By: #### 2 514817, 56453477, 9443115, 3334541, 2622310 #### [facility] [address] [place] [address] Calcium [Mass/Vol] 8.3 mg/dL Low 8.9-11.1 [facility] Comment on above: Performed By: #### 2 965194, 30064192, 8240121, 3183592, 6376920 #### [facility] [address] [place] [address] Chloride [Moles/Vol] 93 mmol/L Low 101-111 [facility] Comment on above: Performed By: #### 2 936975, 16400802, 9488626, 1382445, 7244375 #### [facility] [address] [place] [address] CO2 [Moles/Vol] 32 mmol/L High 21-31 [facility] Comment on above: Performed By: #### 2 304434, 57686236, 7783872, 7875240, 8174815 #### [facility] [address] [place] [address] Creatinine [Mass/Vol] 1.1 mg/dL Normal 0.5-1.3 [facility] Comment on above: Performed By: #### 2 409448, 56763277, 0969763, 2212336, 6298123 #### [facility] [address] [place] [address] Glucose [Mass/Vol] 281 mg/dL High 55-199 [facility] Comment on above: Result Comment: If t his glucose result represents a fasting glucose, interpretation should refer to the following reference range: 55-99 mg/dL Performed By: #### 2 475411, 39138919, 4459923, 8104110, 4555463 #### [facility] [address] [place] [address] Potassium [Moles/Vol] 4.3 mmol/L Normal 3.5-5.3 [facility] Comment on above: Performed By: #### 2 532163, 39601562, 6873384, 0293615, 8145625 #### [facility] [address] [place] [address] Sodium [Moles/Vol] 132 mmol/L Low 135-145 [facility] Comment on above: Performed By: #### 2 419453, 64277135, 4980965, 6329672, 4917327 #### [facility] [address] [place] [address] Urea nitrogen [Mass/Vol] 24 mg/dL High 5-21 [facility] Comment on above: Performed By: #### 2 341366, 31238876, 8943434, 5348304, 5906409 #### [facility] [address] [place] [address] Urea nitrogen/Creatinine [Mass ratio] 22 No Units High 10-20 [facility] Comment on above: Performed By: #### 2 290165, 11922987, 7654530, 8431787, 4473306 #### [facility] [address] [place] [address] CBC w/ Auto Diffon 3 Erythrocyte distribution width (RBC) [Ratio] 13.9 % Normal 10.9-14.2 [facility] Comment on above: Performed By: #### 2 431311, 48940268, 8685336, 5484147, 7287096 #### [facility] [address] [place] [address] Hematocrit (Bld) [Volume fraction] 40.7 % Normal 37.7-49.0 [facility] Comment on above: Performed By: #### 2 501575, 90263346, 3251656, 1893566, 9951804 #### [facility] [address] [place] [address] Hemoglobin (Bld) [Mass/Vol] 13.6 g/dL Normal 13.5-17.5 [facility] Comment on above: Performed By: #### 2 661065, 06230015, 2090408, 5452321, 2266536 #### [facility] [address] [place] [address] MCH (RBC) [Entitic mass] 30.5 pg Normal 27.0-34.0 [facility] Comment on above: Performed By: #### 2 517427, 93120602, 9498028, 4147429, 9299952 #### [facility] [address] [place] [address] MCHC (RBC) [Mass/Vol] 33.5 g/dL Normal 31.4-36.0 [facility] Comment on above: Performed By: #### 2 385566, 18730964, 3138076, 7384650, 2996765 #### [facility] [address] [place] [address] MCV (RBC) [Entitic vol] 91.1 fL Normal 80.0-100.0 [facility] Comment on above: Performed By: #### 2 794578, 19408964, 4590834, 2704495, 7403122 #### [facility] [address] [place] [address] Platelet mean volume (Bld) [Entitic vol] 8.0 fL Normal 6.4-10.8 [facility] Comment on above: Performed By: #### 2 776722, 19474365, 5816020, 4496159, 5387958 #### [facility] [address] [place] [address] Platelets (Bld) [#/Vol] 218.0 E9/L Normal 150.0-500.0 [facility] Comment on above: Performed By: #### 2 834218, 53816803, 6051504, 1799763, 3995113 #### [facility] [address] [place] [address] RBC (Bld) [#/Vol] 4.5 E12/L Normal 4.3-5.9 [facility] Comment on above: Performed By: #### 2 695849, 37773185, 2290545, 4737892, 0834768 #### [facility] [address] [place] [address] WBC corrected for nucl RBC Auto (Bld) [#/Vol] 6.3 E9/L Normal 4.0-11.0 [facility] Comment on above: Performed By: #### 2 020458, 03516391, 9885956, 9088078, 1877635 #### [facility] [address] [place] [address] CHEMISTRYOrdered By: SYSTEM SYSTEM on 09-10-2022 Anion gap [Moles/Vol] 11 mmol/L Normal 6 - 16 mEq/L [facility] Calcium [Mass/Vol] 8.3 mg/dL Low 8.9 - 11. 1 mg/dL [facility] Chloride [Moles/Vol] 93 mmol/L Low 101 - 1 11 mmol/L [facility] CO2 [Moles/Vol] 32 mmol/L High 21 - 31 mmol/L [facility] Creatinine [Mass/Vol] 1.1 mg/dL Normal 0.5 - 1.3 mg/dL [facility] Remisol GFR/1.73 sq M.predicted among blacks MDRD (S/P/Bld) [Vol rate/Area] mL/min/1.73 m2 Normal >=59mL/min/1 .73 m2 [facility] Chem S GFR/1.73 sq M.predicted among non-blacks MDRD (S/P/Bld) [Vol rate/Area] mL/min/1.73 m2 Normal >=59mL/min/1 .73 m2 [facility] Chem S Glucose [Mass/Vol] 281 mg/dL High 55 - 199 mg/dL [facility] Potassium [Moles/Vol] 4.3 mmol/L Normal 3.5 - 5.3 mmol/L [facility] Sodium [Moles/Vol] 132 mmol/L Low 135 - 145 mmol/L [facility] Urea nitrogen [Mass/Vol] 24 mg/dL High 5 - 21 mg/dL [facility] Urea nitrogen/Creatinine [Mass ratio] 22 mg/mg High 10 - 20 [facility] Capillary Glucose POCon Glucose [Mass/Vol] 381 mg/dL High 55-99 [facility] Comment on above: Result Comment: Na ara Meter Performed By: #### 2 259632, 21183075, 2105202, 7245571, 5511703 #### [facility] [address] [place] [address] HEMATOLOGYOrdered By: SYSTEM SYSTEM on 09-10-2022 Basophils/100 WBC (Bld) 0.2 % Normal 0.0 - 2.0 % [facility] HemeAutoSS Basophils/Leukocytes Auto (Bld) [Pure # fraction] 0.0 E9/L Normal 0.0 - 0.2 E9/L [facility] HemeAutoSS Eosinophils/100 WBC (Bld) 0.6 % Normal 0.0 - 8.0 % [facility] HemeAutoSS Eosinophils/Leukocytes Auto (Bld) [Pure # fraction] 0.0 E9/L Normal 0.0 - 0.5 E9/L [facility] HemeAutoSS Lymphocytes/100 WBC (Bld) 11.4 % Low 14.0 - 50.0 % [facility] HemeAutoSS Lymphocytes/Leukocytes Auto (Bld) [Pure # fraction] 0.7 E9/L Low 1.0 - 4.0 E9/L [facility] HemeAutoSS Monocytes/100 WBC (Bld) 7.9 % Normal 4.0 - 14.0 % [facility] HemeAutoSS Monocytes/Leukocytes Auto (Bld) [Pure # fraction] 0.5 E9/L Normal 0.2 - 1.0 E9/L [facility] HemeAutoSS Neutrophils/100 WBC (Bld) 79.9 % High 36.0 - 75.0 % [facility] HemeAutoSS Neutrophils/Leukocytes Auto (Bld) [Pure # fraction] 5.0 E9/L Normal 2.0 - 7.5 E9/L [facility] HemeAutoSS HEMATOLOGYOrdered By: Chrissy Orosco on 09-10-2022 Erythrocyte distribution width (RBC) [Ratio] 13.9 % Normal 10.9 - 14.2 % [facility] HemeAutoSS Hematocrit (Bld) [Volume fraction] 40.7 % Normal 37.7 - 49.0 % [facility] HemeAutoSS Hemoglobin (Bld) [Mass/Vol] 13.6 g/dL Normal 13.5 - 17.5 gm/dL [facility] HemeAutoSS MCH (RBC) [Entitic mass] 30.5 pg Normal 27.0 - 34.0 pg [facility] HemeAutoSS MCHC (RBC) [Mass/Vol] 33.5 g/dL Normal 31.4 - 36.0 gm/dL [facility] HemeAutoSS MCV (RBC) [Entitic vol] 91.1 fL Normal 80.0 - 100.0 fL [facility] HemeAutoSS Platelet mean volume (Bld) [Entitic vol] 8.0 fL Normal 6.4 - 10.8 fL [facility] HemeAutoSS Platelets (Bld) [#/Vol] 218.0 E9/L Normal 150. 0 - 500.0 E9/L [facility] HemeAutoSS RBC (Bld) [#/Vol] 4.5 E12/L Normal 4.3 - 5.9 E12/L [facility] HemeAutoSS WBC corrected for nucl RBC Auto (Bld) [#/Vol] 6.3 E9/L Normal 4.0 - 11.0 E9/L [facility] HemeAutoSS eGFRon 09-10-2022 GFR/1.73 sq M.predicted among blacks MDRD (S/P/Bld) [Vol rate/Area] mL/min/{1.73_m2} Normal >=59 [facility] Comment on above: Order Comment: Order Added by Discern Expert. Result Comment: eGFR is race adjusted. AA=. Performed By: #### 2 144256, 19257313, 0917406, 8829311, 8697147 #### [facility] [address] [place] [address] GFR/1.73 sq M.predicted among non-blacks MDRD (S/P/Bld) [Vol rate/Area] mL/min/{1.73_m2} Normal >=59 [facility] Comment on above: Order Comment: Order Added by Discern Expert. Result Comment: [employer] deni kidney disease could be indicated at eGFR's of less than 60 mL/min/1.73m2. Kidney failure is indicated at less than 15 mL/min/1.73m2. Performed By: #### 2 903136, 08577999, 8901583, 4690765, 8817873 #### [facility] [address] [place] [address] Capillary Glucose POCon Glucose [Mass/Vol] 403 mg/dL High 55-99 [facility] Comment on above: Result Comment: Na ara Meter Performed By: #### 2 298379, 88503293, 6272144, 7002609, 8093330 #### [facility] [address] [place] [address] Glucose [Mass/Vol] 370 mg/dL High 55-99 [facility] Comment on above: Result Comment: Na ara Meter Performed By: #### 2 620418, 08603631, 3473662, 5347859, 8267312 #### [facility] [address] [place] [address] Glucose [Mass/Vol] 286 mg/dL High 55-99 [facility] Comment on above: Performed By: #### 2 971282, 77868991, 1754590, 2895709, 7823917 #### [facility] [address] [place] [address] Glucose [Mass/Vol] 196 mg/dL High 55-99 [facility] Comment on above: Result Comment: Na ara Meter Performed By: #### 2 [id number] #### [facility] [address] [place] [address] Basic Metabolic Panelon Anion gap [Moles/Vol] 7.5 mmol/L Normal 6.0-15.0 [facility] Comment on above: Performed By: #### G JESENIA #### Point of Care testing , Calcium [Mass/Vol] 7.9 mg/dL Low 8.2-10.2 [facility] Comment on above: Performed By: #### G JESENIA #### Point of Care testing , Chloride [Moles/Vol] 98 mmol/L Normal 95-114 [facility] Comment on above: Performed By: #### G JESENIA #### Point of Care testing , CO2 [Moles/Vol] 31.9 mmol/L High 22.0-30.0 [facility] Comment on above: Performed By: #### G LULS #### Point of Care testing , Creatinine [Mass/Vol] 1.12 mg/dL Normal 0.64-1.27 [facility] Comment on above: Performed By: #### G LULS #### Point of Care testing , Creatinine Clr Calc Pharmacy 62.70 [facility] Comment on above: Result Comment: PERF ORMED BY: [facility] [place] [address] PATHOLOGIST [employer] CLARENCE MARTINO M.D. Performed By: #### G LULS #### Point of Care testing , Estimated GFR ( [place] > 60 [facility] Comment on above: Result Comment: GFR estimated reference range: According to KDOQI guidelines, <60 ml/min/1.73m2 is sufficient to diagnose a patient with chronic kidney disease. Performed By: #### G LULS #### Point of Care testing , Estimated GFR (Non- Am > 60 [facility] Comment on above: Performed By: #### G LULS #### Point of Care testing , Glucose [Mass/Vol] 170 mg/dL High 70-100 [facility] Comment on above: Result Comment: [place] Glucose Reference Range is dependent on time and content of last meal. Glucose of more than 200 mg/dL in a nonstressed, ambulatory subject supports the diagnosis of Diabetes Mellitus. ADA recommended reference range Performed By: #### G LULS #### Point of Care testing , Potassium [Moles/Vol] 3.4 mmol/L Significan t change down 3.5-5.1 [facility] Comment on above: Performed By: #### G LULS #### Point of Care testing , Sodium [Moles/Vol] 134 mmol/L Low 136-146 [facility] Comment on above: Performed By: #### G LULS #### Point of Care testing , Urea nitrogen [Mass/Vol] 22 mg/dL Normal 9-23 [facility] Comment on above: Performed By: #### G LULS #### Point of Care testing , COVID-19 Antigenon 3 COVID-19 Antigen Healthcare Worker?: N Reference Range: Negative Negative results, from patients with symptom onset beyond five days, should be treated as presumptive and confirmation with a molecular assay, if necessary, for patient management, may be performed. Negative results do not rule out COVID-19 and should not be used as the sole basis for treatment or patient management decisions, including infection control decisions. Negative results should be considered in the context of a patient's recent exposures, history and the presence of clinical signs and symptoms consistent with COVID-19. The Kyung SARS Antigen DAVE does not differentiate between SARS-CoV and SARS-CoV-2. This test was developed and its performance characteristic determined by [employer] and validated at [facility]. This test has not been FDA cleared or approved. This test has been authorized by FDA under an Emergency Use Authorization (EUA). This test has been validated in accordance with the FDA's Guidance Document (Policy for Diagnostics Testing in Laboratories Certified to Perform High Complexity Testing under CLIA prior to Emergency Use Authorization for Coronavirus Disease-2019 during the Public Health Emergency) issued on December 03, 2019. This test is only authorized for the duration of time the declaration that circumstances exist justifying the authorization of the emergency use of in vitro diagnostic tests for detection of SARS-CoV-2 virus and/or diagnosis of COVID-19 infection under section 564(b)(1) of the Act, 21 U.S.C. 360bbb-3(b)(1), unless the authorization is terminated or revoked sooner. SARS-CoV+SARS-CoV-2 (COVID-19) Ag [Presence] in Respiratory specimen by Rapid immunoassay Negative for SARS Antigen by DAVE PERFORMED BY: [facility] [address] [place] [address] PATHOLOGIST [employer]F CLARENCE MARTINO M.D. Normal [facility] Comment on above: Performed By: #### G JESENIA #### Point of Care testing , COVID-19 SOFIAOrdered By: Ra daryl Velasquez on 09-08-2022 SARS-CoV+SARS-CoV-2 (COVID-19) Ag IA.rapid Ql (Resp) Negative Negative [facility] Comment on above: This is a duplicate Kyung SARS Antigen (DAVE) result to be used for statistical tracking purpose only. Capillary Glucose POCon -0 Glucose [Mass/Vol] 199 mg/dL High 55-99 [facility] Comment on above: Result Comment: Na ara Meter Performed By: #### 2 168125, [id number], 0132168, 1247622, 3036329 #### [facility] [address] [place] [address] Glucose [Mass/Vol] 415 mg/dL High 55-99 [facility] Comment on above: Result Comment: Na ara Meter Performed By: #### 2 [id number] #### [facility] [address] [place] [address] Creatinine and Glomerular fi ltration rate.predicted panel (S/P/Bld)Ordered By: Randolph Velasquez on 09-08-2022 Creatinine [Mass/Vol] 1.12 mg/dL 0.64-1.27 [facility] Estimated glomerular filtrat ion rate (GFR) non- AmericanOrdered By: Randolph Velasquez on 09-08-2022 GFR/1.73 sq M.predicted among non-blacks MDRD (S/P/Bld) [Vol rate/Area] > 60 mL/Min [facility] Glucose Glucometer (BldC) [M ass/Vol]Ordered By: Randolph Velasquez on 09-08-2022 Glucose [Mass/Vol] 342 mg/dL [facility] Comment on above: Random Glucose Refer ence Range is dependent on time and content of last meal. Glucose of more than 200 mg/dL in a nonstressed, ambulatory subject supports the diagnosis of Diabetes Mellitus. Glucose Poct Glucometerson 0 09-08-2022 Glucose [Mass/Vol] 342 mg/dL Normal [facility] Comment on above: Result Comment: [place] Glucose Reference Range is dependent on time and content of last meal. Glucose of more than 200 mg/dL in a nonstressed, ambulatory subject supports the diagnosis of Diabetes Mellitus. PERFORMED BY: [facility] [address] [place] [address] PATHOLOGIST [employer] CLARENCE MARTINO M.D. Performed By: #### G LULS #### Point of Care testing , Glucose [Mass/Vol] 179 mg/dL Normal [facility] Comment on above: Result Comment: [place] om Glucose Reference Range is dependent on time and content of last meal. Glucose of more than 200 mg/dL in a nonstressed, ambulatory subject supports the diagnosis of Diabetes Mellitus. PERFORMED BY: [facility] [address] [place] [address] PATHOLOGIST [employer]IEF CALRENCE MARTINO M.D. Performed By: #### B MP, LACTIC, BNP, HS TROP, DIFF CBC #### [facility] [address] No Panel InformationOrdered By: Randolph Velasquez on 09-08-2022 SARS Antigen (LFIA) [facility] Estimated GFR () > 60 mL/Min [facility] Comment on above: GFR estimated refere nce range: According to KDOQI guidelines, <60 ml/min/1.73m2 is sufficient to diagnose a patient with chronic kidney disease. Pharmacy Creatinine Clearance (Chem 62.70 [facility] Serum or plasma anion gap de terminationOrdered By: Randolph Velasquez on 09-08-2022 Anion gap [Moles/Vol] 7.5 mmol/L 6.0-15.0 [facility] Serum or plasma calcium [place] urement (mass/volume)Ordered By: Randolph Velasquez on 09-08-2022 Calcium [Mass/Vol] 7.9 mg/dL 8.2-10.2 [facility] Serum or plasma chloride kathy surement (moles/volume)Ordered By: Randolph Velasquez on 09-08-2022 Chloride [Moles/Vol] 98 mmol/L 95-114 [facility] Serum or plasma glucose [place] urement (mass/volume)Ordered By: Randolph Velasquez on 09-08-2022 Glucose [Mass/Vol] 170 mg/dL 70-100 [facility] Comment on above: ADA recommended refe rence rangeRandom Glucose Reference Range is dependent on time and content of last meal. Glucose of more than 200 mg/dL in a nonstressed, ambulatory subject supports the diagnosis of Diabetes Mellitus. Serum or plasma potassium me asurement (moles/volume)Ordered By: Randolph Velasquez on 09-08-2022 Potassium [Moles/Vol] 3.4 mmol/L 3.5-5.1 [facility] Comment on above: Delta: 4.9 on Serum or plasma sodium measu rement (moles/volume)Ordered By: Randolph Velasquez on 09-08-2022 Sodium [Moles/Vol] 134 mmol/L 136-146 [facility] Serum or plasma total carbon dioxide measurement (moles/volume)Ordered By: Randolph Velasquez on 09-08-2022 CO2 [Moles/Vol] 31.9 mmol/L 22.0-30.0 [facility] Serum or plasma urea nitroge n measurement (mass/volume)Ordered By: Randolph Velasquez on 09-08-2022 Urea nitrogen [Mass/Vol] 22 mg/dL 9-23 [facility] Kyung Ag Negativeon 09-08-19 Kyung Ag Negative Negative Normal Negative [facility] Comment on above: Result Comment: This is a duplicate Kyung SARS Antigen (DAVE) result to be used for statistical tracking purpose only. PERFORMED BY: [place] [address] [place] [address] PATHOLOGIST [employer] CLARENCE MARTINO M.D. Performed By: #### G LUEMMIE #### Point of Care testing , Automated erythrocytes count in urine sediment (number/area)Ordered By: Randolph Velasquez on 09-07-2022 RBC Auto (Urine sed) [#/Area] Innumerable [HPF] 0-4 [facility] Automated leukocytes count i n urine sediment (number/area)Ordered By: Randolph Velasquez on 09-07-2022 WBC Auto (Urine sed) [#/Area] 1-2 [HPF] 0-4 [facility] Basic Metabolic Panelon Anion gap [Moles/Vol] 15.7 mmol/L High 6.0-15.0 [facility] Comment on above: Performed By: #### G LULS #### Point of Care testing , Calcium [Mass/Vol] 8.4 mg/dL Normal 8.2-10.2 [facility] Comment on above: Performed By: #### G LULS #### Point of Care testing , Chloride [Moles/Vol] 97 mmol/L Normal 95-114 [facility] Comment on above: Performed By: #### G LULS #### Point of Care testing , CO2 [Moles/Vol] 31.2 mmol/L High 22.0-30.0 [facility] Comment on above: Performed By: #### G LULS #### Point of Care testing , Creatinine [Mass/Vol] 1.21 mg/dL Normal 0.64-1.27 [facility] Comment on above: Performed By: #### G LULS #### Point of Care testing , Creatinine Clr Calc Pharmacy 58.03 [facility] Comment on above: Result Comment: PERF ORMED BY: [facility] [address] [place] [address] PATHOLOGIST [employer]IEF CLARENCE MARTINO M.D. Performed By: #### G LULS #### Point of Care testing , Estimated GFR ( [place] > 60 [facility] Comment on above: Result Comment: GFR estimated reference range: According to KDOQI guidelines, <60 ml/min/1.73m2 is sufficient to diagnose a patient with chronic kidney disease. Performed By: #### G LULS #### Point of Care testing , Estimated GFR (Non- Am 57 [facility] Comment on above: Performed By: #### G LULS #### Point of Care testing , Glucose [Mass/Vol] 220 mg/dL High 70-100 [facility] Comment on above: Result Comment: [place] om Glucose Reference Range is dependent on time and content of last meal. Glucose of more than 200 mg/dL in a nonstressed, ambulatory subject supports the diagnosis of Diabetes Mellitus. ADA recommended reference range Performed By: #### G LULS #### Point of Care testing , Potassium [Moles/Vol] 4.9 mmol/L Normal 3.5-5.1 [facility] Comment on above: Performed By: #### G LULS #### Point of Care testing , Sodium [Moles/Vol] 139 mmol/L Normal 136-146 [facility] Comment on above: Performed By: #### G LULS #### Point of Care testing , Urea nitrogen [Mass/Vol] 30 mg/dL High 9-23 [facility] Comment on above: Performed By: #### G LULS #### Point of Care testing , Basophils Auto (Bld) [#/Vol] Ordered By: Randolph Velasquez on 09-07-2022 Basophils (Bld) [#/Vol] 0.0 10*3/uL 0.0-0.2 [facility] Basophils/100 WBC Auto (Bld) Ordered By: Randolph Velasquez on 09-07-2022 Basophils/100 WBC (Bld) 0.3 % . F [facility] Bilirubin Test strip Ql (U)O rdered By: Randolph Velasquez on 09-07-2022 Bilirubin Ql (U) Negative Negative [facility] Color Auto (U)Ordered By: Ra daryl Velasquez on 09-07-2022 Color (U) Yellow Yellow [facility] Dipstick and Microscopicon 0 09-07-2022 Appearance (U) Clear Normal Clear [facility] Comment on above: Order Comment: Name Collection Type:: Lewis Catheter Performed By: #### G LULS #### Point of Care testing , Bacteria,Urine None Seen Normal None Seen [facility] Comment on above: Order Comment: Name Collection Type:: Lewis Catheter Performed By: #### G LULS #### Point of Care testing , Bilirubin,Urine Negative Normal Negative [facility] Comment on above: Order Comment: Name Collection Type:: Lewis Catheter Performed By: #### G LULS #### Point of Care testing , Color (U) Yellow Normal Yellow [facility] Comment on above: Order Comment: Name Collection Type:: Lewis Catheter Performed By: #### G LULS #### Point of Care testing , Glucose Ql (U) >=1000 [facility] Normal [facility] Comment on above: Order Comment: Name Collection Type:: Lewis Catheter Performed By: #### G LULS #### Point of Care testing , Hyaline Casts,Urine 0-8 Normal 0-8 [facility] Comment on above: Order Comment: Name Collection Type:: Lewis Catheter Result Comment: PERF ORMED BY: [address] [place] [id number] PATHOLOGIST [employer]IE[employer] CLARENCE MARTINO M.D. Performed By: #### G LULS #### Point of Care testing , Ketones Ql (U) Trace High Negative [facility] Comment on above: Order Comment: Name Collection Type:: Lewis Catheter Performed By: #### G LULS #### Point of Care testing , Leukocyte esterase Test strip Ql (U) 1+ High Negative [facility] Comment on above: Order Comment: Name Collection Type:: Lewis Catheter Performed By: #### G LULS #### Point of Care testing , Nitrite,Urine Negative Normal Negative [facility] Comment on above: Order Comment: Name Collection Type:: Lewis Catheter Performed By: #### G LULS #### Point of Care testing , Occult Blood,Urine 3+ High Negative [facility] Comment on above: Order Comment: Name Collection Type:: Lewis Catheter Result Comment: PERF ORMED BY: [address] [place] [id number] PATHOLOGIST [employer]IE[employer] CLARENCE MARTINO M.D. Performed By: #### G LULS #### Point of Care testing , pH (U) 5.5 [pH] Normal 5.0-9.0 [facility] Comment on above: Order Comment: Name Collection Type:: Lewis Catheter Performed By: #### G LULS #### Point of Care testing , Protein (U) [Mass/Vol] 100 mg/dL High Negative [facility] Comment on above: Order Comment: Name Collection Type:: Lewis Catheter Performed By: #### G LULS #### Point of Care testing , RBC,Urine Innumerable High 0-4 [facility] Comment on above: Order Comment: Name Collection Type:: Lewis Catheter Performed By: #### G LULS #### Point of Care testing , Specificy Gilbert,Urine 1.030 Normal 1.001-1.030 [facility] Comment on above: Order Comment: Name Collection Type:: Lewis Catheter Performed By: #### G LULS #### Point of Care testing , Squamous Epithelial Cell,Urine None Seen Normal 0-2 [facility] Comment on above: Order Comment: Name Collection Type:: Lewis Catheter Performed By: #### G LULS #### Point of Care testing , Urobilinogen,Urine Normal Normal Normal [facility] Comment on above: Order Comment: Name Collection Type:: Lewis Catheter Performed By: #### G LULS #### Point of Care testing , WBC,Urine 1-2 Normal 0-4 [facility] Comment on above: Order Comment: Name Collection Type:: Lewis Catheter Performed By: #### G LULS #### Point of Care testing , Eosinophils Auto (Bld) [#/Vo l]Ordered By: [facility] on 09-07-2022 Eosinophils (Bld) [#/Vol] 0.0 10*3/uL 0.0-0.45 [facility] Eosinophils/100 WBC Auto (Bl d)Ordered By: [facility] on 09-07-2022 Eosinophils/100 WBC (Bld) 0.0 % . [facility] Erythrocyte distribution wid th Auto (RBC) [Ratio][facility] on 09-07-2022 Erythrocyte distribution width (RBC) [Ratio] 13.9 % 12.0-14.8 [facility] Glucose Poct Glucometerson 0 09-07-2022 Commemt1 Normal [facility] Comment on above: Result Comment: Glu2 : Will Repeat Test Performed By: #### B MP, LACTIC, BNP, HS TROP, DIFF CBC #### [facility] [address] [place] [address] [place] Commemt2 Cleaned Meter Normal [facility] Comment on above: Result Comment: PERF ORMED BY: [facility] [address] [place] [address] PATHOLOGIST [employer] CLARENCE MARTINO M.D. Performed By: #### B MP, LACTIC, BNP, HS TROP, DIFF CBC #### [facility] [address] Glucose [Mass/Vol] 428 mg/dL Off scale high [facility] Comment on above: Result Comment: [place] om Glucose Reference Range is dependent on time and content of last meal. Glucose of more than 200 mg/dL in a nonstressed, ambulatory subject supports the diagnosis of Diabetes Mellitus. Performed By: #### B MP, LACTIC, BNP, HS TROP, DIFF CBC #### [facility] [address] Commemt1 Glu2: Cleaned Meter Normal [facility] Comment on above: Result Comment: PERF ORMED BY: [address] [place] [address] PATHOLOGIST [employer] CLARENCE MARTINO M.D. Performed By: #### G LULS #### Point of Care testing , Glucose [Mass/Vol] 277 mg/dL [facility] Comment on above: Result Comment: [place] om Glucose Reference Range is dependent on time and content of last meal. Glucose of more than 200 mg/dL in a nonstressed, ambulatory subject supports the diagnosis of Diabetes Mellitus. Performed By: #### G LULS #### Point of Care testing , Glucose [Mass/Vol] 355 mg/dL Normal [facility] Comment on above: Result Comment: [place] om Glucose Reference Range is dependent on time and content of last meal. Glucose of more than 200 mg/dL in a nonstressed, ambulatory subject supports the diagnosis of Diabetes Mellitus. PERFORMED BY: [place] [address] PATHOLOGIST [employer] CLARENCE MARTINO M.D. Performed By: #### G LULS #### Point of Care testing , Glucose [Mass/Vol] 235 mg/dL Normal [facility] Comment on above: Result Comment: [place] om Glucose Reference Range is dependent on time and content of last meal. Glucose of more than 200 mg/dL in a nonstressed, ambulatory subject supports the diagnosis of Diabetes Mellitus. PERFORMED BY: [facility] [address] [place] [address] PATHOLOGIST [employer] CLARENCE MARTINO M.D. Performed By: #### G LULS #### Point of Care testing , Glucose [Mass/Vol] 399 mg/dL Normal [facility] Comment on above: Result Comment: [place] Glucose Reference Range is dependent on time and content of last meal. Glucose of more than 200 mg/dL in a nonstressed, ambulatory subject supports the diagnosis of Diabetes Mellitus. PERFORMED BY: [place] [address] PATHOLOGIST [employer] CLARENCE MARTINO M.D. Performed By: #### B MP, LACTIC, BNP, HS TROP, DIFF CBC #### [place] [id number] [facility] Hematocrit Auto (Bld) [Volum e fraction]Ordered By: Randolph Velasquez on 09-07-2022 Hematocrit (Bld) [Volume fraction] 38.6 % 38.8-50.0 [facility] Hemoglobin [Mass/volume] in BloodOrdered By: Randolph Velasquez on 09-07-2022 Hemoglobin (Bld) [Mass/Vol] 12.6 g/dL 13.0-17.0 [facility] Ketones Auto test strip (U) [Mass/Vol]Ordered By: Randolph Velasquez on 09-07-2022 Ketones (U) [Mass/Vol] Trace Negative [facility] - UrinalysisOrder ed By: Randolph Velasquez on 09-07-2022 Hyaline casts LM Ql (Urine sed) 0-8 [LPF] 0-8 [facility] Leukocytes [#/volume] correc layton for nucleated erythrocytes in Blood by Automated counOrdered By: Randolph Velasquez on 09-07-2022 WBC corrected for nucl RBC Auto (Bld) [#/Vol] 13.0 10*3/uL 4.1-10.5 [facility] Lymphocytes Auto (Bld) [#/Vo l]Ordered By: Randolph Velasquez on 09-07-2022 Lymphocytes (Bld) [#/Vol] 0.5 10*3/uL 1.00-4.8 [facility] Lymphocytes/100 WBC Auto (Bl d)Ordered By: Randolph Velasquez on 09-07-2022 Lymphocytes/100 WBC (Bld) 3.6 % . [facility] MCH Auto (RBC) [Entitic mass ]Ordered By: Randolph Velasquez on 09-07-2022 MCH (RBC) [Entitic mass] 30.2 pg 27.5-35.2 [facility] MCHC Auto (RBC) [Mass/Vol]Or dered By: Randolph Velasquez on 09-07-2022 MCHC (RBC) [Mass/Vol] 32.7 g/dL 32.5-35.6 [facility] MCV Auto (RBC) [Entitic vol] Ordered By: Randolph Velasquez on 09-07-2022 MCV (RBC) [Entitic vol] 92.1 fL 83.5-101 F [facility] Monocytes Auto (Bld) [#/Vol] Ordered By: Randolph Velasquez on 09-07-2022 Monocytes (Bld) [#/Vol] 0.6 10*3/uL 0.0-0.8 [facility] Monocytes/100 WBC Auto (Bld) Ordered By: Randolph Velasquez on 09-07-2022 Monocytes/100 WBC (Bld) 4.5 % . [facility] Neutrophils Auto (Bld) [#/Vo l]Ordered By: Randolph Velasquez on 09-07-2022 Neutrophils (Bld) [#/Vol] 11.9 10*3/uL 1.8-7.7 [facility] Neutrophils/100 WBC Auto (Bl d)Ordered By: Randolph Velasquez on 09-07-2022 Neutrophils/100 WBC (Bld) 91.6 % . [facility] Nitrite Test strip Ql (U)Ord ered By: Randolph Velasquez on 09-07-2022 Nitrite Ql (U) Negative Negative [facility] No Panel InformationOrdered By: Randolph Velasquez on 09-07-2022 Bedside Glucose #2 Comment Cleaned meter [facility] Bedside Glucose Comment See comment [facility] Comment on above: Glu2: Will Repeat Te st Nucleated erythrocytes [Pres ence] in Blood by Automated countOrdered By: Randolph Velasquez on 09-07-2022 Nucleated RBC Auto Ql (Bld) 0.0 /100{WBC} 0-0.5 [facility] Platelet adequacy [Presence] in Blood by Light microscopyOrdered By: Randolph Velasquez on 09-07-2022 Platelets LM Ql (Bld) Normal Normal [facility] Platelet mean volume Auto (B ld) [Entitic vol]Ordered By: Randolph Velasquez on 09-07-2022 Platelet mean volume (Bld) [Entitic vol] 8.3 fL 6.6-10.1 [facility] Platelet morphology finding [Identifier] in BloodOrdered By: Randolph Velasquez on 09-07-2022 Platelet morphology finding Nom (Bld) Normal Normal [facility] Platelets Auto (Bld) [#/Vol] Ordered By: Randolph Velasquez on 09-07-2022 Platelets (Bld) [#/Vol] 227 10*3/uL 150-450 [facility] Protein Auto test strip (U) [Mass/Vol]Ordered By: Randolph Velasquez on 09-07-2022 Protein (U) [Mass/Vol] 100 mg/dL Negative [facility] RBC Auto (Bld) [#/Vol]Ordere d By: Randolph Velasquez on 09-07-2022 RBC (Bld) [#/Vol] 4.19 10*6/uL 3.90-5.60 [facility] RBC morphologyOrdered By: Ra daryl Velasquez on 09-07-2022 RBC morphology finding Nom (Bld) Normal Normal [facility] Scan and CBCon 09-07-2022 Basophils (Bld) [#/Vol] 0.0 10*3/uL Normal 0.0-0.2 [facility] Comment on above: Performed By: #### G LULS #### Point of Care testing , Basophils/100 WBC (Bld) 0.3 % Normal . [facility] Comment on above: Performed By: #### G LULS #### Point of Care testing , Eosinophils (Bld) [#/Vol] 0.0 10*3/uL Normal 0.0-0.45 [facility] Comment on above: Performed By: #### G KRYSTALLS #### Point of Care testing , Eosinophils/100 WBC (Bld) 0.0 % Normal . [facility] Comment on above: Performed By: #### G KRYSTALLS #### Point of Care testing , Erythrocyte distribution width (RBC) [Ratio] 13.9 % Normal 12.0-14.8 [facility] Comment on above: Performed By: #### G KRYSTALLS #### Point of Care testing , Hematocrit (Bld) [Volume fraction] 38.6 % Low 38.8-50.0 [facility] Comment on above: Performed By: #### G KRYSTALLS #### Point of Care testing , Hemoglobin (Bld) [Mass/Vol] 12.6 g/dL Low 13.0-17.0 [facility] Comment on above: Performed By: #### G KRYSTALLS #### Point of Care testing , Lymphocytes (Bld) [#/Vol] 0.5 10*3/uL Low 1.00-4.8 [facility] Comment on above: Performed By: #### G KRYSTALLS #### Point of Care testing , Lymphocytes/100 WBC (Bld) 3.6 % Normal . [facility] Comment on above: Performed By: #### Joon RICELS #### Point of Care testing , MCH (RBC) [Entitic mass] 30.2 pg Normal 27.5-35.2 [facility] Comment on above: Performed By: #### G KRYSTALLS #### Point of Care testing , MCV (RBC) [Entitic vol] 92.1 fL Normal 83.5-101 F [facility] Comment on above: Performed By: #### G KRYSTALLS #### Point of Care testing , Mean Corpuscular HGB Conc 32.7 g/dL Normal 32.5-35.6 [facility] Comment on above: Performed By: #### Joon RICELS #### Point of Care testing , Monocytes (Bld) [#/Vol] 0.6 10*3/uL Normal 0.0-0.8 [facility] Comment on above: Performed By: #### G LULS #### Point of Care testing , Monocytes/100 WBC (Bld) 4.5 % Normal . [facility] Comment on above: Performed By: #### G LULS #### Point of Care testing , Neutrophils (Bld) [#/Vol] 11.9 10*3/uL High 1.8-7.7 [facility] Comment on above: Performed By: #### G LULS #### Point of Care testing , Neutrophils/100 WBC (Bld) 91.6 % Normal . [facility] Comment on above: Performed By: #### G LULS #### Point of Care testing , NRBC% 0.0 /100{WBC} Normal 0-0.5 [facility] Comment on above: Performed By: #### G LULS #### Point of Care testing , Platelet Estimate Normal Normal Normal [facility] Comment on above: Performed By: #### G LULS #### Point of Care testing , Platelet mean volume (Bld) [Entitic vol] 8.3 fL Normal 6.6-10.1 [facility] Comment on above: Performed By: #### G LULS #### Point of Care testing , Platelet Morphology Normal Normal Normal [facility] Comment on above: Result Comment: PERF ORMED BY: [facility] [address] [place] [address] PATHOLOGIST [employer]F CLARENCE MARTINO M.D. Performed By: #### G LULS #### Point of Care testing , Platelets (Bld) [#/Vol] 227 10*3/uL Normal 150-450 [facility] Comment on above: Performed By: #### G LULS #### Point of Care testing , RBC (Bld) [#/Vol] 4.19 10*6/uL Normal 3.90-5.60 [facility] Comment on above: Performed By: #### G LULS #### Point of Care testing , RBC morphology finding Nom (Bld) Normal Normal Normal [facility] Comment on above: Performed By: #### G KRYSTALLS #### Point of Care testing , WBC (Bld) [#/Vol] 13.0 10*3/uL High 4.1-10.5 [facility] Comment on above: Performed By: #### G LULS #### Point of Care testing , Specific gravity Auto test s trip (U) [Rel density]Ordered By: Randolph Velasquez on 09-07-2022 Specific gravity (U) [Rel density] 1.030 1.001-1.030 [facility] Squamous epithelial cells de tection in urine sediment by light microscopyOrdered By: Randolph Velasquez on 09-07-2022 Epithelial cells.squamous LM Ql (Urine sed) None seen [HPF] 0-2 [facility] Urine bacteria detection by automated methodOrdered By: Randolph Velasquez on 09-07-2022 Bacteria Auto Ql (U) None seen None Seen [facility] Urine clarity by refractomet ry automatedOrdered By: Randolph Velasquez on 09-07-2022 Clarity Refractometry automated (U) Clear Clear [facility] Urine glucose measurement by automated test strip (mass/volume)Ordered By: Randolph Velasquez on 09-07-2022 Glucose Auto test strip (U) [Mass/Vol] >=1000 mg/dL Normal [facility] Urine hemoglobin detection b y automated test stripOrdered By: Randolph Velasquez on 09-07-2022 Hemoglobin Auto test strip Ql (U) 3+ Negative [facility] Urine leukocyte esterase det ection by automated test stripOrdered By: Randolph Velasquez on 09-07-2022 Leukocyte esterase Auto test strip Ql (U) 1+ Negative [facility] Urobilinogen Auto test strip (U) [Mass/Vol]Ordered By: Randolph Velasquez on 09-07-2022 Urobilinogen (U) [Mass/Vol] Normal mg/dL Normal [facility] WBC Auto (Bld) [#/Vol]Ordere d By: Randolph Velasquez on 01-06-2023 WBC (Bld) [#/Vol] 13.0 10*3/uL 4.1-10.5 [facility] pH Auto test strip (U)Ordere d By: Randolph Velasquez on 09-07-2022 pH (U) 5.5 [pH] 5.0-9.0 [facility] Aerobic Cultureon 09-06-2022 Aerobic Culture Light Normal Respiratory Nadine 2 Days Gram Stain Result 1+ White Blood Cells 1+ Epithelial Cells Rare Gram Positive Cocci Rare Gram Positive Bacilli PERFORMED BY: [place] [address] PATHOLOGIST [employer] CLARENCE MARTINO M.D. [facility] Comment on above: Performed By: #### G JESENIA #### Point of Care testing , Glucose Poct Glucometerson 0 09-06-2022 Commemt1 Glu2: Cleaned Meter [facility] Comment on above: Performed By: #### B MP, LACTIC, BNP, HS TROP, DIFF CBC #### [address] Commemt2 WILL NOTIFY DR/RN [facility] Comment on above: Result Comment: PERF ORMED BY: [place] [address] PATHOLOGIST [employer] CLARENCE MARTINO M.D. Performed By: #### B MP, LACTIC, BNP, HS TROP, DIFF CBC #### [address] Glucose [Mass/Vol] 486 mg/dL Off scale high [facility] Comment on above: Result Comment: [facility] Glucose Reference Range is dependent on time and content of last meal. Glucose of more than 200 mg/dL in a nonstressed, ambulatory subject supports the diagnosis of Diabetes Mellitus. Performed By: #### B MP, LACTIC, BNP, HS TROP, DIFF CBC #### [facility] [address] [place] [address] Commemt1 [facility] Comment on above: Result Comment: Glu2 : Will Repeat Test PERFORMED BY: [place] [id number] PATHOLOGIST [employer] CLARENCE MARTINO M.D. Performed By: #### G LULS #### Point of Care testing , Glucose [Mass/Vol] 437 mg/dL Off scale [facility] Comment on above: Result Comment: [place] Glucose Reference Range is dependent on time and content of last meal. Glucose of more than 200 mg/dL in a nonstressed, ambulatory subject supports the diagnosis of Diabetes Mellitus. Performed By: #### G LULS #### Point of Care testing , Commemt1 Glu2: Cleaned Meter [facility] Comment on above: Performed By: #### G LULS #### Point of Care testing , Commemt2 WILL NOTIFY DR/RN [facility] Comment on above: Result Comment: PERF ORMED BY: [address] [place] [address] PATHOLOGIST [employer] CLARENCE MARTINO M.D. Performed By: #### G LULS #### Point of Care testing , Glucose [Mass/Vol] 451 mg/dL Off scale [facility] Comment on above: Result Comment: [place] Glucose Reference Range is dependent on time and content of last meal. Glucose of more than 200 mg/dL in a nonstressed, ambulatory subject supports the diagnosis of Diabetes Mellitus. Performed By: #### G LULS #### Point of Care testing , Commemt1 [facility] Comment on above: Result Comment: Glu2 : WILL NOTIFY DR/CLEO PERFORMED BY: [facility] [address] [place] [address] PATHOLOGIST [employer] CLARENCE MARTINO M.D. Performed By: #### G LULS #### Point of Care testing , Glucose [Mass/Vol] 421 mg/dL Off scale [facility] Comment on above: Result Comment: [place] Glucose Reference Range is dependent on time and content of last meal. Glucose of more than 200 mg/dL in a nonstressed, ambulatory subject supports the diagnosis of Diabetes Mellitus. Performed By: #### G LULS #### Point of Care testing , Glucose [Mass/Vol] 356 mg/dL Normal [facility] Comment on above: Result Comment: [place] [facility] Glucose Reference Range is dependent on time and content of last meal. Glucose of more than 200 mg/dL in a nonstressed, ambulatory subject supports the diagnosis of Diabetes Mellitus. PERFORMED BY: [place] [address] PATHOLOGIST [employer] CLARENCE MARTINO M.D. Performed By: #### B MP, LACTIC, BNP, HS TROP, DIFF CBC #### [address] Commemt1 Normal [facility] Comment on above: Result Comment: Glu2 : WILL NOTIFY DR/RN PERFORMED BY: [place] [address] PATHOLOGIST [employer] CLARENCE MARTINO M.D. Performed By: #### G LULS #### Point of Care testing , Glucose [Mass/Vol] 419 mg/dL Off scale [facility] Comment on above: Result Comment: [place] [facility] Glucose Reference Range is dependent on time and content of last meal. Glucose of more than 200 mg/dL in a nonstressed, ambulatory subject supports the diagnosis of Diabetes Mellitus. Performed By: #### G LUEMMIE #### Point of Care testing , Gram Stainon 09-06-2022 Microscopic observation Gram stain Nom (Unsp spec) Gram Stain Result 1+ White Blood Cells 1+ Epithelial Cells Rare Gram Positive Cocci Rare Gram Positive Bacilli PERFORMED BY: [place] [address] PATHOLOGIST [employer] CLARENCE MARTINO M.D. [facility] Comment on above: Performed By: #### A ERC, GS #### [address] Arterial Blood Gason 023 ABG Base Excess 0.3 mmol/L Normal -3.0-3.0 [facility] Comment on above: Performed By: #### B MP, LACTIC, BNP, HS TROP, DIFF CBC #### [address] [place] [address] [place] ABG Frac Inspired O2 32 % Normal [facility] Comment on above: Performed By: #### B MP, LACTIC, BNP, HS TROP, DIFF CBC #### [address] ABG Liter Flow 2 Normal [facility] Comment on above: Performed By: #### B MP, LACTIC, BNP, HS TROP, DIFF CBC #### [address] ABG Oxygen Content 8.3 mmol/L Normal 6.6-9.7 [facility] Comment on above: Performed By: #### B MP, LACTIC, BNP, HS TROP, DIFF CBC #### [address] ABG Oxygen Saturation 95.6 % Normal 95.0-100.0 [facility] Comment on above: Performed By: #### B MP, LACTIC, BNP, HS TROP, DIFF CBC #### [address] ABG PCO2 36.7 mm[Hg] Normal 35.0-45.0 [facility] Comment on above: Performed By: #### B MP, LACTIC, BNP, HS TROP, DIFF CBC #### [address] ABG PH 7.44 Normal 7.35-7.45 [facility] Comment on above: Performed By: #### B MP, LACTIC, BNP, HS TROP, DIFF CBC #### [address] ABG PO2 75.3 mm[Hg] Low 80.0-100.0 [facility] Comment on above: Performed By: #### B MP, LACTIC, BNP, HS TROP, DIFF CBC #### [address] CO2 [Moles/Vol] 25.3 mmol/L Normal 23.0-27.0 [facility] Comment on above: Performed By: #### B MP, LACTIC, BNP, HS TROP, DIFF CBC #### [facility] [address] HCO3 (Bld) [Moles/Vol] 24.1 mmol/L Normal 23.0-29.0 [facility] Comment on above: Performed By: #### B MP, LACTIC, BNP, HS TROP, DIFF CBC #### [facility] [address] Oxygen Device Nasal Cannula Normal [facility] Comment on above: Performed By: #### B MP, LACTIC, BNP, HS TROP, DIFF CBC #### [address] Respiratory Critical Normal [facility] Comment on above: Result Comment: Crit ical Value called on: 09/05/2022 at 11:59 PERFORMED BY: [place] [address] PATHOLOGIST [employer]IEF CLARENCE MARTINO M.D. Performed By: #### B MP, LACTIC, BNP, HS TROP, DIFF CBC #### [address] VBG Draw Site Right Brachial Normal [facility] Comment on above: Performed By: #### B MP, LACTIC, BNP, HS TROP, DIFF CBC #### [address] B-Type Natriuretic Peptideon 09-05-2022 Natriuretic peptide B (Bld) [Mass/Vol] 200.0 pg/mL High 5-100 [facility] Comment on above: Result Comment: PERF ORMED BY: [place] [address] PATHOLOGIST [employer]IEF CLARENCE MARTINO M.D. Performed By: #### B MP, LACTIC, BNP, HS TROP, DIFF CBC #### [address] Band form neutrophils/100 WB C Manual cnt (Bld)Ordered By: Lakesha Haskins on 09-05-2022 Band form neutrophils/100 WBC (Bld) 17 % 0-5 [facility] Basic Metabolic Panelon -0 Anion gap [Moles/Vol] 14.6 mmol/L Normal 6.0-15.0 [facility] Comment on above: Performed By: #### G LULS #### Point of Care testing , Calcium [Mass/Vol] 8.3 mg/dL Normal 8.2-10.2 [facility] Comment on above: Performed By: #### G LULS #### Point of Care testing , Chloride [Moles/Vol] 99 mmol/L Normal 95-114 [facility] Comment on above: Performed By: #### G LULS #### Point of Care testing , CO2 [Moles/Vol] 28.3 mmol/L Normal 22.0-30.0 [facility] Comment on above: Performed By: #### G LULS #### Point of Care testing , Creatinine [Mass/Vol] 1.21 mg/dL Normal 0.64-1.27 [facility] Comment on above: Performed By: #### G LULS #### Point of Care testing , Creatinine Clr Calc Pharmacy 57.67 [facility] Comment on above: Result Comment: PERF ORMED BY: [facility] [address] [place] [address] PATHOLOGIST [employer]IEF CLARENCE MARTINO M.D. Performed By: #### G LULS #### Point of Care testing , Estimated GFR ( [place] > 60 [facility] Comment on above: Result Comment: GFR estimated reference range: According to KDOQI guidelines, <60 ml/min/1.73m2 is sufficient to diagnose a patient with chronic kidney disease. Performed By: #### G LULS #### Point of Care testing , Estimated GFR (Non- Am 57 [facility] Comment on above: Performed By: #### G LULS #### Point of Care testing , Glucose [Mass/Vol] 313 mg/dL High 70-100 [facility] Comment on above: Result Comment: [facility] Glucose Reference Range is dependent on time and content of last meal. Glucose of more than 200 mg/dL in a nonstressed, ambulatory subject supports the diagnosis of Diabetes Mellitus. ADA recommended reference range Performed By: #### G LULS #### Point of Care testing , Potassium [Moles/Vol] 3.9 mmol/L Normal 3.5-5.1 [facility] Comment on above: Performed By: #### G LULS #### Point of Care testing , Sodium [Moles/Vol] 138 mmol/L Normal 136-146 [facility] Comment on above: Performed By: #### G LULS #### Point of Care testing , Urea nitrogen [Mass/Vol] 22 mg/dL Normal 9-23 [facility] Comment on above: Performed By: #### G LULS #### Point of Care testing , Anion gap [Moles/Vol] 14.1 mmol/L Normal 6.0-15.0 [facility] Comment on above: Performed By: #### B MP, LACTIC, BNP, HS TROP, DIFF CBC #### [facility] [address] Calcium [Mass/Vol] 8.6 mg/dL Normal 8.2-10.2 [facility] Comment on above: Performed By: #### B MP, LACTIC, BNP, HS TROP, DIFF CBC #### [facility] [address] Chloride [Moles/Vol] 99 mmol/L Normal 95-114 [facility] Comment on above: Performed By: #### B MP, LACTIC, BNP, HS TROP, DIFF CBC #### [place] [address] [place] CO2 [Moles/Vol] 27.0 mmol/L Normal 22.0-30.0 [facility] Comment on above: Performed By: #### B MP, LACTIC, BNP, HS TROP, DIFF CBC #### [facility] [address] Creatinine [Mass/Vol] 1.24 mg/dL Normal 0.64-1.27 [facility] Comment on above: Performed By: #### B MP, LACTIC, BNP, HS TROP, DIFF CBC #### [address] Creatinine Clr Calc Pharmacy 56.53 [facility] Comment on above: Result Comment: PERF ORMED BY: [place] [address] PATHOLOGIST [employer]IEF CLARENCE MARTINO M.D. Performed By: #### B MP, LACTIC, BNP, HS TROP, DIFF CBC #### [address] Estimated GFR ( [place] > 60 [facility] Comment on above: Result Comment: GFR estimated reference range: According to KDOQI guidelines, <60 ml/min/1.73m2 is sufficient to diagnose a patient with chronic kidney disease. Performed By: #### B MP, LACTIC, BNP, HS TROP, DIFF CBC #### [address] Estimated GFR (Non- Am 56 [facility] Comment on above: Performed By: #### B MP, LACTIC, BNP, HS TROP, DIFF CBC #### [address] Glucose [Mass/Vol] 315 mg/dL High 70-100 [facility] Comment on above: Result Comment: [place] om Glucose Reference Range is dependent on time and content of last meal. Glucose of more than 200 mg/dL in a nonstressed, ambulatory subject supports the diagnosis of Diabetes Mellitus. ADA recommended reference range Performed By: #### B MP, LACTIC, BNP, HS TROP, DIFF CBC #### [address] Potassium [Moles/Vol] 4.1 mmol/L Normal 3.5-5.1 [facility] Comment on above: Performed By: #### B MP, LACTIC, BNP, HS TROP, DIFF CBC #### [address] Sodium [Moles/Vol] 136 mmol/L Normal 136-146 [facility] Comment on above: Performed By: #### B MP, LACTIC, BNP, HS TROP, DIFF CBC #### [facility] [address] [place] [id number] [place] Urea nitrogen [Mass/Vol] 22 mg/dL Normal 9- [facility] Comment on above: Performed By: #### B MP, LACTIC, BNP, HS TROP, DIFF CBC #### [facility] [address] [place] [id number] [facility] Basophils/100 WBC Manual cnt (Bld)Ordered By: Lakesha Haskins on 09-05-2022 Basophils/100 WBC (Bld) 0 % 0-2 [facility] CT chest w conon 09-05-2022 CT chest w con [facility] [place] [address] [place] [address] CT Scan Report Signed Patient: Jose L Mauricio MR#: [id number] : 1940 Acct:[id number] Age/Sex: 81 / M ADM Date: 09/04/22 Loc: Room: [address] [place] [address] Type: ADM IN Attending Dr: Randolph Velasquez MD Copies to: Randolph Velasquez MD Ordering Provider: Randolph Velasquez MD Date of Service: 09/05/22 CT/CT chest w con: PNA, COPD , smoker, ro/ CA CT CHEST WITH INTRAVENOUS CONTRAST: CLINICAL HISTORY: Cough, shortness of breath, fever, chest pain, hypoxia COMPARISON: Chest 09/05/2022 TECHNIQUE: Spiral images were obtained through the chest following intravenous administration of IV contrast. This CT exam was performed using one or more following dose reduction techniques: Automated exposure control, adjustment of the mA and/or kV according to patient size, or use of iterative reconstruction technique. FINDINGS: Mediastinum:Thoracic aorta demonstrates mild calcification. Pulmonary trunk appears nondilated. No pleural effusion. Calcified subcarinal and left hilar lymph nodes. The esophagus is grossly unremarkable. Lungs:Retrograde motion limits evaluation. Scattered tree-in-bud nodularity is seen. Bronchial wall thickening and mild consolidative changes involving the basilar segments of the lower lobes. No pneumothorax. Calcified granuloma left lower lobe. Abd:Hepatic steatosis. Splenic granulomas. Thickening of the adrenal glands. 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 Soft tissues/Bones: Soft tissues of the no acute findings. Osseous structures demonstrate degenerative change. CT/CT chest w con IMPRESSION: Scattered tree-in-bud nodularity. Bronchial wall thickening with mild consolidative changes involving the lower lobes. An infectious process, possibly related to aspiration is suspected. Repeat CT chest after therapy is recommended to ensure resolution. Impression dictated by: Singh Ha Jr., LibbyORl09/05/2022 3:30 PM Dictation Location: [place] [address] Transcribed By: [facility] 09/05/22 1530 Dictated By: Singh Ha Jr, DO 09/05/22 1527 Signed By: 09/05/22 1530 Normal [facility] Diff and CBCon 09-05-2022 Band form neutrophils/100 WBC (Bld) 17 % High 0-5 [facility] Comment on above: Performed By: #### G LULS #### Point of Care testing , Basophils/100 WBC (Bld) 0 % Normal 0-2 [facility] Comment on above: Performed By: #### G LULS #### Point of Care testing , Eosinophils/100 WBC (Bld) 0 % Low 1-3 [facility] Comment on above: Performed By: #### G LULS #### Point of Care testing , Erythrocyte distribution width (RBC) [Ratio] 14.0 % Normal 12.0-14.8 [facility] Comment on above: Performed By: #### G LULS #### Point of Care testing , Hematocrit (Bld) [Volume fraction] 37.1 % Low 38.8-50.0 [facility] Comment on above: Performed By: #### G LULS #### Point of Care testing , Hemoglobin (Bld) [Mass/Vol] 12.5 g/dL Low 13.0-17.0 [facility] Comment on above: Performed By: #### G LULS #### Point of Care testing , Lymphocytes/100 WBC (Bld) 8 % Low 18-42 [facility] Comment on above: Performed By: #### G LULS #### Point of Care testing , MCH (RBC) [Entitic mass] 30.9 pg Normal 27.5-35.2 [facility] Comment on above: Performed By: #### G LULS #### Point of Care testing , MCV (RBC) [Entitic vol] 91.9 fL Normal 83.5-101 [facility] Comment on above: Performed By: #### G LULS #### Point of Care testing , Mean Corpuscular HGB Conc 33.6 g/dL Normal 32.5-35.6 [facility] Comment on above: Performed By: #### G LULS #### Point of Care testing , Metamyelocytes 1 % High 0-0 [facility] Comment on above: Performed By: #### G LULS #### Point of Care testing , Monocytes/100 WBC (Bld) 8 % Normal 2-11 [facility] Comment on above: Performed By: #### G LULS #### Point of Care testing , Platelet Estimate Normal Normal Normal [facility] Comment on above: Performed By: #### G LULS #### Point of Care testing , Platelet mean volume (Bld) [Entitic vol] 8.0 fL Normal 6.6-10.1 [facility] Comment on above: Result Comment: PERF ORMED BY: [address] [place] [address] PATHOLOGIST [employer]IEF CLARENCE MARTINO M.D. Performed By: #### G LULS #### Point of Care testing , Platelet Morphology Normal Normal Normal [facility] Comment on above: Result Comment: PERF ORMED BY: [facility] [address] [facility] [place] [address] PATHOLOGIST [employer]IEF CLARENCE MARTINO M.D. Performed By: #### G LULS #### Point of Care testing , Platelets (Bld) [#/Vol] 212 10*3/uL Normal 150-450 [facility] Comment on above: Performed By: #### G LULS #### Point of Care testing , RBC (Bld) [#/Vol] 4.04 10*6/uL Normal 3.90-5.60 [facility] Comment on above: Performed By: #### G JESENIA #### Point of Care testing , RBC morphology finding Nom (Bld) Normal Normal Normal [facility] Comment on above: Performed By: #### G JESENIA #### Point of Care testing , Segmented neutrophils/100 WBC (Bld) 66 % Normal 50-70 [facility] Comment on above: Performed By: #### G JESENIA #### Point of Care testing , WBC (Bld) [#/Vol] 9.6 10*3/uL Normal 4.1-10.5 [facility] Comment on above: Performed By: #### G JESENIA #### Point of Care testing , Band form neutrophils/100 WBC (Bld) 32 % High 0-5 [facility] Comment on above: Performed By: #### B MP, LACTIC, BNP, HS TROP, DIFF CBC #### [facility] [address] [place] [address] [place] Basophils/100 WBC (Bld) 2 % Normal 0-2 [facility] Comment on above: Performed By: #### B MP, LACTIC, BNP, HS TROP, DIFF CBC #### [facility] [address] [place] [address] [place] Eosinophils/100 WBC (Bld) 1 % Normal 1-3 [facility] Comment on above: Performed By: #### B MP, LACTIC, BNP, HS TROP, DIFF CBC #### [facility] [address] [place] [address] [place] Erythrocyte distribution width (RBC) [Ratio] 14.2 % Normal 12.0-14.8 [facility] Comment on above: Performed By: #### B MP, LACTIC, BNP, HS TROP, DIFF CBC #### [facility] [address] [place] [address] [place] Hematocrit (Bld) [Volume fraction] 38.5 % Low 38.8-50.0 [facility] Comment on above: Performed By: #### B MP, LACTIC, BNP, HS TROP, DIFF CBC #### [facility] [address] [place] [address] [place] Hemoglobin (Bld) [Mass/Vol] 13.0 g/dL Normal 13.0-17.0 [facility] Comment on above: Performed By: #### B MP, LACTIC, BNP, HS TROP, DIFF CBC #### [address] Lymphocytes/100 WBC (Bld) 7 % Low 18-42 [facility] Comment on above: Performed By: #### B MP, LACTIC, BNP, HS TROP, DIFF CBC #### [address] MCH (RBC) [Entitic mass] 31.1 pg Normal 27.5-35.2 [facility] Comment on above: Performed By: #### B MP, LACTIC, BNP, HS TROP, DIFF CBC #### [address] MCV (RBC) [Entitic vol] 91.7 fL Normal 83.5-101 [facility] Comment on above: Performed By: #### B MP, LACTIC, BNP, HS TROP, DIFF CBC #### [address] Mean Corpuscular HGB Conc 33.9 g/dL Normal 32.5-35.6 [facility] Comment on above: Performed By: #### B MP, LACTIC, BNP, HS TROP, DIFF CBC #### [address] Monocytes/100 WBC (Bld) 5 % Normal 2-11 [facility] Comment on above: Performed By: #### B MP, LACTIC, BNP, HS TROP, DIFF CBC #### [address] Myelocytes 4 % High 0-0 [facility] Comment on above: Performed By: #### B MP, LACTIC, BNP, HS TROP, DIFF CBC #### [address] Plasma Cells 1 % High 0-0 [facility] Comment on above: Performed By: #### B MP, LACTIC, BNP, HS TROP, DIFF CBC #### [facility] [address] Platelet Estimate Normal Normal Normal [facility] Comment on above: Performed By: #### B MP, LACTIC, BNP, HS TROP, DIFF CBC #### [address] Platelet mean volume (Bld) [Entitic vol] 8.1 fL Normal 6.6-10.1 [facility] Comment on above: Performed By: #### B MP, LACTIC, BNP, HS TROP, DIFF CBC #### [address] Platelet Morphology Normal Normal Normal [facility] Comment on above: Result Comment: PERF ORMED BY: [place] [address] PATHOLOGIST [employer] CHIEF CLARENCE MARTINO M.D. Performed By: #### B MP, LACTIC, BNP, HS TROP, DIFF CBC #### [address] Platelets (Bld) [#/Vol] 230 10*3/uL Normal 150-450 [facility] Comment on above: Performed By: #### B MP, LACTIC, BNP, HS TROP, DIFF CBC #### [address] Promyelocytes 1 % High 0-0 [facility] Comment on above: Performed By: #### B MP, LACTIC, BNP, HS TROP, DIFF CBC #### [address] RBC (Bld) [#/Vol] 4.20 10*6/uL Normal 3.90-5.60 [facility] Comment on above: Performed By: #### B MP, LACTIC, BNP, HS TROP, DIFF CBC #### [address] RBC morphology finding Nom (Bld) Normal Normal Normal [facility] Comment on above: Performed By: #### B MP, LACTIC, BNP, HS TROP, DIFF CBC #### [address] Segmented neutrophils/100 WBC (Bld) 47 % Low 50-70 [facility] Comment on above: Performed By: #### B MP, LACTIC, BNP, HS TROP, DIFF CBC #### [facility] [address] WBC (Bld) [#/Vol] 9.5 10*3/uL Normal 4.1-10.5 [facility] Comment on above: Performed By: #### B MP, LACTIC, BNP, HS TROP, DIFF CBC #### [facility] [address] ECG 12 lead ECGon 09-05-2022 ECG 12 lead ECG [facility] [place] [address] Electrocardiograph Report Signed Patient: Jose L Mauricio MR#: [id number] : 1940 Acct:[id number] Age/Sex: 81 / M ADM Date: 09/04/22 Loc: Room: [address] [place] [address] Type: DIS IN Attending Dr: Randolph Velasquez MD Ordering Provider: Randolph Velasquez MD Date of Service: 09/05/2212/23/1118 ECG/ECG 12 lead ECG: pt evalulation Copies to: Test Reason : Blood Pressure : / mmHG Vent. Rate : 111 BPM Atrial Rate : 113 BPM P-R Int : 000 ms QRS Dur : 102 ms QT Int : 324 ms P-R-T Axes : 000 -36 047 degrees QTc Int : 440 ms Atrial fibrillation with rapid ventricular response Left axis deviation Diffuse nonspecific ST and T wave changes Abnormal ECG When compared with ECG of 05-SEP-2022 11:17, (Unconfirmed) Atrial fibrillation has replaced Sinus rhythm Significant changes have occurred Confirmed by CESAR HAILE DO ([id number]) on 09/06/2022 7:24:15 PM Referred By: Electronically Signed By:CESAR HAILE DO Transcribed By: MUS Signed By Cesar Haile DO 09/06 [facility] ECH echo transthoracicon [facility] echo transthoracic [facility] [address] Echocardiogram Signed Patient: Jose L Mauricio MR#: [id number] : 1940 Acct:[id number] Age/Sex: 81 / M ADM Date: 09/04/22 Loc: Room: [address] [place] [address] Type: DIS IN Attending Dr: Randolph Velasquez MD Ordering Provider: Lakesha Haskins APRN Date of Service: 09/04/2211/22/2332 ECH/ECH echo transthoracic: elevated troponins Copies to: MD Lakesha Mccullough, COLD REDUCTION ROLLER BSA: 2.3 m2 BP: 165/80 mmHg HR: 106 Reason For Study: elevated troponins History: DM. HTN. Former Smoker. Interpretation Summary The left ventricular wall motion is normal. Mild concentric left ventricular hypertrophy. Ejection Fraction = 60-65%. A variety of Doppler measurements indicate impaired left ventricular relaxation, which is associated with grade I/IV or mild diastolic dysfunction. Borderline aortic root dilatation. There is no comparison study available. Procedure/Quality: A two-dimensional transthoracic echocardiogram with color flow, Doppler and injection of contrast agent Definity was performed. A two- dimensional transthoracic echocardiogram with color flow and Doppler was performed. The study was technically good in quality. Left Ventricle: The left ventricular size is normal. Mild concentric left ventricular hypertrophy. Upper septal hypertrophy (sigmoid septum), normal variant. Ejection Fraction = 60-65%. A variety of Doppler measurements indicate impaired left ventricular relaxation, which is associated with grade I/IV or mild diastolic dysfunction. The left ventricular wall motion is normal. Left Atrium: The left atrium appears normal in size. Right Atrium: The right atrium appears normal in size. Right Ventricle: The right ventricular size, thickness and function are normal. Aortic Valve: The aortic valve is normal in structure and function. No aortic regurgitation is present. Mitral Valve: The mitral valve is normal in structure and function. There is no mitral regurgitation noted. Tricuspid Valve: The tricuspid valve is normal in structure and function. No tricuspid regurgitation. Pulmonic Valve: The pulmonic valve is normal in structure and function. Arteries: Borderline aortic root dilatation. Pericardium/Pleura: No pericardial effusion seen. There is no pleural effusion. IVC/Hepatic Viens: The inferior vena cava is normal in size, with a normal collapsibility index. Measurements with Normals IVSd: 1.2 cm (0.7-1.1 cm)LVIDd: 4.3 cm(3.7-5.4 cm) LVPWd: 1.3 cm (0.7-1.1 cm)LVIDs: 2.8 cm(2.3-3.6 cm) Ao root diam: 3.8 cm (2.0-3.6 cm) asc Aorta Diam: 4.0 cm(2.1-3.4cm) Doppler with Normals LV V1 max: 97.0 cm/sec (0.7-1.7m/s)MV E max alex: 80.2 cm/sec(0.8-1.3m/s) MV A max alex: 143.2 cm/sec(0.0-0.0m/s) MV E/A: 0.56 (<1.5) MMode/2D Measurements Calculations TAPSE: 2.6 cm FS: 34.1 % Ao root area: LVOT diam: 2.5 cm RV S Alex: EDV(Teich): 11.5 cm2 LVOT area: 4.7 cm2 18.3 cm/sec 83.6 ml ESV(Teich): 30.6 ml EF(Teich): 63.4 % __ LVLd ap4: 8.3 cm SV(MOD-sp4): LAV(MOD-sp4): LA A2 area: 16.1 cm2 EDV(MOD-sp4): 63.1 ml 52.4 ml 116.0 ml LAV(MOD-sp2): LA A4 area: 20.2 cm2 LVLs ap4: 7.4 cm 43.9 ml LA length (vol): ESV(MOD-sp4): 5.9 cm 52.9 ml LA vol: 46.5 ml EF(MOD-sp4): 54.4 % LA vol index: 20.5 ml/m2 Doppler Measurements Calculations MV dec time: E/E' lat: 8.8 MV dec slope: Ao V2 max: 0.15 sec E/E' med: 13.4 209.0 cm/sec 542.2 cm/sec2 Ao max P.5 mmHg Ao mean P.7 mmHg Ao V2 mean: 174.6 cm/sec Ao V2 VTI: 33.2 cm VÍCTOR(I,D): 2.0 cm2 VÍCTOR(V,D): 2.2 cm2 __ LV V1 max PG: RAP systole: 3.8 mmHg 3.0 mmHg LV V1 mean P.3 mmHg LV V1 mean: 72.5 cm/sec LV V1 VTI: 14.2 cm Transcribed By: NELDA Performed At: 09/05/22 0841 Signed By: Liz Morales MD 09/05/22 0943 Normal [facility] Eosinophils/100 WBC Manual c nt (Bld)Ordered By: Lakesha Haskins on 09-05-2022 Eosinophils/100 WBC (Bld) 0 % 1-3 [facility] Glucose Poct Glucometerson 0 09-05-2022 Glucose [Mass/Vol] 338 mg/dL Normal [facility] Comment on above: Result Comment: [place] Glucose Reference Range is dependent on time and content of last meal. Glucose of more than 200 mg/dL in a nonstressed, ambulatory subject supports the diagnosis of Diabetes Mellitus. PERFORMED BY: [place] [address] PATHOLOGIST [employer]IEF CLARENCE MARTINO M.D. Performed By: #### G LULS #### Point of Care testing , Commemt1 Glu2: Cleaned Meter Normal [facility] Comment on above: Result Comment: PERF ORMED BY: [place] [id number] PATHOLOGIST [employer] CHIEF CLARENCE MARTINO M.D. Performed By: #### B MP, LACTIC, BNP, HS TROP, DIFF CBC #### [address] Glucose [Mass/Vol] 269 mg/dL Normal [facility] Comment on above: Result Comment: [place] om Glucose Reference Range is dependent on time and content of last meal. Glucose of more than 200 mg/dL in a nonstressed, ambulatory subject supports the diagnosis of Diabetes Mellitus. Performed By: #### B MP, LACTIC, BNP, HS TROP, DIFF CBC #### [address] Glucose [Mass/Vol] 344 mg/dL Normal [facility] Comment on above: Result Comment: [place] om Glucose Reference Range is dependent on time and content of last meal. Glucose of more than 200 mg/dL in a nonstressed, ambulatory subject supports the diagnosis of Diabetes Mellitus. PERFORMED BY: [place] [address] PATHOLOGIST [employer] CHIEF CLARENCE MARTINO M.D. Performed By: #### B MP, LACTIC, BNP, HS TROP, DIFF CBC #### [address] Glucose [Mass/Vol] 340 mg/dL Normal [facility] Comment on above: Result Comment: [place] Glucose Reference Range is dependent on time and content of last meal. Glucose of more than 200 mg/dL in a nonstressed, ambulatory subject supports the diagnosis of Diabetes Mellitus. PERFORMED BY: [place] [address] PATHOLOGIST [employer] CHIEF CLARENCE MARTINO M.D. Performed By: #### G LULS #### Point of Care testing , Glucose [Mass/Vol] 342 mg/dL Normal [facility] Comment on above: Result Comment: [place] om Glucose Reference Range is dependent on time and content of last meal. Glucose of more than 200 mg/dL in a nonstressed, ambulatory subject supports the diagnosis of Diabetes Mellitus. PERFORMED BY: [place] [address] PATHOLOGIST [employer]UR[employer]IEF CLARENCE MARTINO M.D. Performed By: #### B MP, LACTIC, BNP, HS TROP, DIFF CBC #### [address] [place] [address] [facility] Laboratory - Chemistry and C hemistry - challengeOrdered By: Randolph Velasquez on 09-05-2022 CO2 [Moles/Vol] 25.3 mmol/L 23.0-27.0 [facility] HCO3 (Bld) [Moles/Vol] 24.1 mmol/L 23.0-29.0 [facility] [place] [facility] Lactic Acidon 09-05-2022 Lactate [Moles/Vol] 1.6 mmol/L Normal 0.5-2.2 [facility] Comment on above: Result Comment: PERF ORMED BY: [facility] [address] [place] [address] PATHOLOGIST [employer] CHIEF CLARENCE MARTINO M.D. Performed By: #### B MP, LACTIC, BNP, HS TROP, DIFF CBC #### [facility] [address] [place] [id number] [facility] Lymphocytes/100 WBC Manual c nt (Bld)Ordered By: Lakesha Haskins on 09-05-2022 Lymphocytes/100 WBC (Bld) 8 % 18-42 [facility] Metamyelocytes/100 WBC Manua l cnt (Bld)Ordered By: Lakesha Haskins on 09-05-2022 Metamyelocytes/100 WBC (Bld) 1 % 0-0 [facility] Monocytes/100 WBC Manual cnt (Bld)Ordered By: Lakesha Haskins on 09-05-2022 Monocytes/100 WBC (Bld) 8 % 2-11 [facility] [place] [facility] No Panel InformationOrdered By: Randolph Velasquez on 09-05-2022 Arterial Blood Base Excess 0.3 mmol/L -3.0-3.0 [facility] Arterial Blood Oxygen Content 8.3 mmol/L 6.6-9.7 [facility] Arterial Blood Oxygen Saturation 95.6 % 95.0-100.0 [facility] Arterial Blood Partial Pressure CO2 36.7 mm[Hg] 35.0-45.0 [facility] Arterial Blood Partial Pressure O2 75.3 mm[Hg] 80.0-100.0 [facility] Arterial Blood pH 7.44 7.35-7.45 [facility] Blood Gas Critical Value See comment [facility] Comment on above: Critical Value coles d on: 09/05/2022 at 11:59 Blood Gas Liter Flow 2 L/min [facility] Blood Gas Sample Site Right brachial [facility] FiO2 32 % [facility] Oxygen Delivery Device Nasal cannula [facility] Segmented neutrophils/100 WB C Manual cnt (Bld)Ordered By: Lakesha Haskins on 09-05-2022 Segmented neutrophils/100 WBC (Bld) 66 % 50-70 [facility] Troponin I High Sensitivityo n 09-05-2022 Troponin I High Sensitivity 97 pg/mL Off scale high 0-20 [facility] Comment on above: Result Comment: Resu lts called at 0640 on 09/05/22 PERFORMED BY: [place] [address] PATHOLOGIST [employer] CHIEF CLARENCE MARTINO M.D. Performed By: #### G LULS #### Point of Care testing , Troponin I High Sensitivity 128 pg/mL Off scale high 0-20 [facility] Comment on above: Result Comment: Resu lts called at 0123 on 09/05/22 PERFORMED BY: [place] [address] PATHOLOGIST [employer] CHIEF CLARENCE MARTINO M.D. Performed By: #### B MP, LACTIC, BNP, HS TROP, DIFF CBC #### [place] [address] [place] Troponin I.cardiac [Mass/vol ume] in Serum or Plasma by High sensitivity methodOrdered By: Lakesha Haskins on 09-05-2022 Troponin I.cardiac High sensitivity method [Mass/Vol] 97 pg/mL 0-20 [facility] Comment on above: Results calledat 064 0 on 09/05/22 XR chest 1V portableon 09-05 XR chest 1V portable [facility] [place] [address] [place], [place] [id number] XRay Report Signed Patient: Jose L Mauricio MR#: [id number] : 1940 Acct:[id number] Age/Sex: 81 / M ADM Date: 09/04/22 Loc: Room: [address] [place] [address] Type: ADM IN Attending Dr: Randolph Velasquez MD Copies to: Randolph Velasquez MD Ordering Provider: Randolph Velasquez MD Date of Service: 09/05/22 XR/XR chest 1V portable: Pneumonia, CHF SINGLE VIEW CHEST CLINICAL HISTORY: Cough, pneumonia/CHF. COMPARISON: Chest 09/04/2022 FINDINGS: Heart appears normal in size. Interstitial changes are unchanged. Evidence old granulomatous disease. No consolidation pneumothorax, large pleural effusion or free air. XR/XR chest 1V portable IMPRESSION: NO SIGNIFICANT CHANGE IN CHEST FINDINGS COMPARED TO THE 09/04/2022 STUDY. INTERSTITIAL CHANGES PERSIST WITHOUT FOCAL CONSOLIDATION. Impression dictated by: Singh Ha Jr., D.O.09/05/2022 12:48 PM Dictation Location: [place] [address] Transcribed By: [facility] 09/05/22 1248 Dictated By: Singh Ha Jr, DO 09/05/22 1245 Signed By: 09/05/22 1248 [facility] ACETONE SERUMon 09-04-2022 ACETONE Negative Normal NEGATIVE [facility] Comment on above: Performed By: #### A CETON #### [facility] [address] [place] [address] Dr. Luis Manuel Asher BNPon 09-04-2022 Natriuretic peptide B (Bld) [Mass/Vol] 1464.0 pg/mL Normal <=1,800.0 [facility] Comment on above: Performed By: #### V ITAD #### [facility] [address] [place] [address] Dr. Luis Manuel Asher CBC W MANUAL DIFFon 09-04-19 ATYPICAL LYMPH # Normal [facility] Comment on above: Performed By: #### C BCMAN #### [facility] [address] [place] [address] Dr. Luis Manuel Asher ATYPICAL LYMPH % Normal [facility] Comment on above: Performed By: #### C BCMAN #### [facility] [address] [place] [address] Dr. Luis Manuel Asher BAND # 0.7 103/ul Critically high 0.0-0.3 [facility] Comment on above: Performed By: #### C BCMAN #### [facility] [address] [place] [address] Dr. Luis Manuel Asher BAND % 6 % Critically high 0-5 [facility] Comment on above: Performed By: #### C BCMAN #### [facility] [address] [place] [address] Dr. Luis Manuel Asher BASOM # 0.00 103/ul Normal 0.00-0.10 [facility] Comment on above: Performed By: #### C BCMAN #### [facility] [address] [place] [address] Dr. Luis Manuel Asher BASOM % 0.0 % Critically low 0.2-2.0 [facility] Comment on above: Performed By: #### C BCYAMILETH #### [facility] [address] [place] [address] Dr. Luis Manuel Asher BLAST # Normal [facility] Comment on above: Performed By: #### C SANTOS #### [facility] [address] [place] [address] Dr. Luis Manuel Asher BLAST % Normal [facility] Comment on above: Performed By: #### C BCYAMILETH #### [facility] [address] [place] [address] Dr. Luis Manuel Asher CORRECTED WBC Normal 4.0-11.0 [facility] Comment on above: Performed By: #### C BCMAN #### [facility] [address] [place] [address] Dr. Luis Manuel Asher EOS # 0.00 103/ul Normal 0.00-0.70 [facility] Comment on above: Performed By: #### C BCMAN #### [facility] [address] [place] [address] Dr. Luis Manuel Asher EOS% 0.0 % Critically low 0.9-7.0 [facility] Comment on above: Performed By: #### C BCYAMILETH #### [facility] [address] [place] [address] Dr. Luis Manuel Asher HCT 41.3 % Critically low 42.0-54.0 [facility] Comment on above: Performed By: #### C SANTOS #### [facility] [address] [address] [address] Luis Manuel Asher HGB 13.6 g/dl Critically low 14.0-18.0 [facility] Comment on above: Performed By: #### C SANTOS #### [facility] [address] [address] [address] Luis Manuel Asher LYMPHM # 0.79 103/ul Critically low 1.20-3.80 [facility] Comment on above: Performed By: #### C SANTOS #### [facility] [address] [place] [address] Dr. Luis Manuel Asher LYMPHM% 7.0 % Critically low 20.5-60.0 [facility] Comment on above: Performed By: #### C SANTOS #### [facility] [address] [place] [address] Dr. Luis Manuel Asher MCH 30.4 pg Normal 25.9-34.0 [facility] Comment on above: Performed By: #### C SANTOS #### [facility] [address] [place] [address] Dr. Luis Manuel Asher MCHC 32.9 g/dl Normal 29.9-35.2 [facility] Comment on above: Performed By: #### C SANTOS #### [facility] [address] [place] [address] Dr. Luis Manuel Asher MCV 92.2 fL Normal 80.0-94.0 [facility] Comment on above: Performed By: #### C SANTOS #### [facility] [address] [address] [address] Luis Manuel Asher METAMYELOCYTE # Normal [facility] Comment on above: Performed By: #### C SANTOS #### [facility] [address] [place] [address] Dr. Luis Manuel Asher METAMYELOCYTE % Normal [facility] Comment on above: Performed By: #### C SANTOS #### [facility] [address] [address] [address] Luis Manuel Asher MONOM# 1.36 103/ul Critically high 0.30-0.80 [facility] Comment on above: Performed By: #### C SANTOS #### [facility] [address] [address] [address] Luis Manuel Asher MONOM% 12.0 % Normal 1.7-12.0 [facility] Comment on above: Performed By: #### C SANTOS #### [facility] [address] [place] [address] Dr. Luis Manuel Asher MPV 10.0 fL Normal 9.5-13.5 [facility] Comment on above: Performed By: #### C SANTOS #### [facility] [address] [place] [address] Dr. Luis Manuel Asher MYELOCYTE # Normal [facility] Comment on above: Performed By: #### C SANTOS #### [facility] [address] [place] [address] Dr. Luis Manuel Asher MYELOCYTE % Normal [facility] Comment on above: Performed By: #### C SANTOS #### [facility] [address] [place] [address] Dr. Luis Manuel Asher NRBC Normal [facility] Comment on above: Performed By: #### Naz GRAHAM #### [facility] [address] [place] [address] Dr. Luis Manuel Asher PLT 251 103/ul Normal 150-450 [facility] Comment on above: Performed By: #### C SANTOS #### [facility] [address] [place] [address] Dr. Luis Manuel Asher RBC 4.48 106/ul Critically low 4.70-6.10 [facility] Comment on above: Performed By: #### C SANTOS #### [facility] [address] [place] [address] Dr. Luis Manuel Asher RDW 13.4 % Normal 11.0-15.0 [facility] Comment on above: Performed By: #### C SANTOS #### [facility] [address] [address] [address] Luis Manuel Asher SEG # 8.47 103/ul Critically high 1.40-6.50 [facility] Comment on above: Performed By: #### C BCMAN #### [facility] [address] [place] [address] Dr. Luis Manuel Asher SEG % 75.0 % Normal 43.0-75.0 [facility] Comment on above: Performed By: #### C BCMAN #### [facility] [address] [address] [address] Luis Manuel Asher WBC 11.3 103/ul Critically high 4.0-11.0 [facility] Comment on above: Performed By: #### C SHIRAMAN #### [facility] [address] [place] [address] Dr. Luis Manuel Asher CULTURE BLOODon 09-04-2022 Microscopic examination of blood, culture Culture Observations: NO GROWTH AT 5 DAYS. Normal [facility] Comment on above: Performed By: #### V ITAD #### [facility] [address] [place] [address] Dr. Luis Manuel Asher Microscopic examination of blood, culture Culture Observations: NO GROWTH AT 5 DAYS. Normal [facility] Comment on above: Performed By: #### V ITAD #### [facility] [address] [place] [address] Dr. Luis Manuel Asher [facility]on SARS-CoV-2 (COVID-19) RNA ABE+probe Ql (Unsp spec) Not detected Normal NOT DETECTED [facility] Comment on above: Result Comment: When diagnostic testing is negative, the possibility of a false negative should be considered in the context of a patient's recent exposures and the presence of clinical signs and symptoms consistent with SARS-CoV-2. This test is not yet approved or cleared by the [place] FDA. When there are no FDA-approved or cleared tests available, and other criteria are met, FDA can make tests available under an emergency access mechanism called an Emergency Use Authorization (EUA). The EUA for this test is supported by the [employer] of Health and Human Service's declaration that circumstances exist to justify the emergency use of in vitro diagnostics for the detection and/or diagnosis of the virus that causes COVID-19. This EUA will remain in effect for the duration of the COVID-19 declaration justifying emergency of IVDs, unless it is terminated or revoked by the FDA (after which the test may no longer be used). Performed By: #### V ITAD #### [facility] [address] [place] [address] Dr. Luis Manuel Asher INFLUENZA A AND B AGon 09-04 INFLUANE SEE BELOW Normal [facility] Comment on above: Result Comment: Nega tive for Flu A protein angiten. Infection due to Flu A cannot be ruled out. Flu A angiten in the sample may be below the detection limit of the test. Performed By: #### A CETON #### [facility] [address] [place] [address] Dr. Luis Manuel Asher [facility]GED WITH [facility] SEE BELOW Normal [facility] Comment on above: Result Comment: Nega tive for Flu B protein antigen. Infection due to Flu B cannot be ruled out. Flu B antigen in the sample may be below the detection limit of the test. Performed By: #### A CETON #### [facility] [address] [place] [address] Dr. Luis Manuel Asher INFLUENZA A AG Negative Normal NEGATIVE SEE COMMENT [facility] Comment on above: Performed By: #### A CETON #### [facility] [address] [place] [address] Dr. Luis Manuel Asher INFLUENZA B AG Negative Normal NEGATIVE SEE COMMENT [facility] Comment on above: Performed By: #### A CETON #### [facility] [address] [place] [address] Dr. Luis Manuel Asher LACTATE/LACTIC ACIDon 2022 Lactate [Moles/Vol] 4.0 mmol/L Critically high 0.4-1.9 [facility] Comment on above: Performed By: #### L ACT #### [facility] [address] [place] [address] Dr. Luis Manuel Asher Laboratory - Chemistry and C hemistry - challengeOrdered By: Lakesha Haskins on 09-04-2022 Natriuretic peptide B (Bld) [Mass/Vol] 200.0 pg/mL 5-100 [facility] Myelocytes/100 WBC Manual cn t (Bld)Ordered By: Lakesha Haskins on 09-04-2022 Myelocytes/100 WBC (Bld) 4 % 0-0 [facility] POINT OF CARE GLUCOSEon - Glucose [Mass/Vol] 362 mg/dL Critically high -106 [facility] Comment on above: Performed By: #### P OCGLUC #### [facility] [address] [place] [address] Dr. Luis Manuel Asher Glucose [Mass/Vol] 352 mg/dL Critically high -106 [facility] Comment on above: Performed By: #### V ITAD #### [facility] [address] [place] [address] Dr. Luis Manuel Asher PROF 14(COMP METB)on 023 Albumin [Mass/Vol] 2.6 g/dL Critically low 3.4-5.0 [facility] Comment on above: Performed By: #### V ITAD #### [facility] [address] [address] [address] Luis Manuel Asher Albumin/Globulin [Mass ratio] 0.5 {ratio} Normal [facility] Comment on above: Performed By: #### V ITAD #### [facility] [address] [place] [address] Dr. Luis Manuel sAher ALP [Catalytic activity/Vol] 163 U/L Critically high 46-116 [facility] Comment on above: Performed By: #### V ITAD #### [facility] [address] [address] [address] Luis Manuel Asher ALT [Catalytic activity/Vol] 98 U/L Critically high 16-63 [facility] Comment on above: Performed By: #### V ITAD #### [facility] [address] [place] [address] Dr. Luis Manuel Asher Anion gap [Moles/Vol] 14.9 mmol/L Normal [facility] Comment on above: Performed By: #### V ITAD #### [facility] [address] [address] [address] Luis Manuel Asher AST [Catalytic activity/Vol] 57 U/L Critically high 15-37 [facility] Comment on above: Performed By: #### V ITAD #### [facility] [address] [address] [address] Luis Manuel Asher Bilirubin [Mass/Vol] 0.4 mg/dL Normal 0.2-1.0 [facility] Comment on above: Performed By: #### V ITAD #### [facility] [address] [address] [address] Luis Manuel Asher Calcium [Mass/Vol] 9.4 mg/dL Normal 8.5-10.1 [facility] Comment on above: Performed By: #### V ITAD #### [facility] [address] [address] [address] Luis Manuel Asher Chloride [Moles/Vol] 100 mmol/L Normal 98-107 [facility] Comment on above: Performed By: #### V ITAD #### [facility] [address] [address] [address] Luis Manuel Asher CO2 [Moles/Vol] 27.2 mmol/L Normal 21.0-32.0 [facility] Comment on above: Performed By: #### V ITAD #### [facility] [address] [address] [address] Luis Manuel Asher Creatinine [Mass/Vol] 1.45 mg/dL Critically high 0.70-1.30 [facility] Comment on above: Performed By: #### V ITAD #### [facility] [address] [address] [address] Luis Manuel Asher EGFR-AF WALLISIAN 56 mL/min/1.73m2 Critically low >=60 [facility] Comment on above: Performed By: #### V ITAD #### [facility] [address] [address] [address] Luis Manuel Asher EGFR-NON AF WALLISIAN 46 mL/min/1.73m2 Critically low >=60 [facility] Comment on above: Performed By: #### V ITAD #### [facility] [address] [address] [address] Luis Manuel Asher Globulin (S) [Mass/Vol] 4.9 g/dL Normal [facility] Comment on above: Performed By: #### V ITAD #### [facility] [address] [address] [address] Luis Manuel Asher Glucose [Mass/Vol] 396 mg/dL Critically high 74-106 [facility] Comment on above: Performed By: #### V ITAD #### [facility] [address] [address] [address] Luis Manuel Asher Potassium [Moles/Vol] 4.1 mmol/L Normal 3.5-5.1 [facility] Comment on above: Performed By: #### V ITAD #### [facility] [address] [address] [address] Luis Manuel Asher Protein [Mass/Vol] 7.5 g/dL Normal 6.4-8.2 [facility] Comment on above: Performed By: #### V ITAD #### [facility] [address] [address] [address] Luis Manuel Asher Sodium [Moles/Vol] 138 mmol/L Normal 136-145 [facility] Comment on above: Performed By: #### V ITAD #### [facility] [address] [address] [address] Luis Manuel Asher Urea nitrogen [Mass/Vol] 26.0 mg/dL Critically high 7.0-18.0 [facility] Comment on above: Performed By: #### V ITAD #### [facility] [address] [address] [address] Luis Manuel Asher Urea nitrogen/Creatinine [Mass ratio] 17.9 mg/mg Normal [facility] Comment on above: Performed By: #### V ITAD #### [facility] [id number] Luis Manuel Asher Plasma cells/100 leukocytes in Blood by Manual countOrdered By: Lakesha Haskins on 09-04-2022 Plasma cells/100 WBC Manual cnt (Bld) 1 % 0-0 [facility] Promyelocytes/100 WBC Manual cnt (Bld)Ordered By: Lakesha Haskins on 09-04-2022 Promyelocytes/100 WBC (Bld) 1 % 0-0 [facility] TROPONIN, HIGH SENSITIVITYon 09-04-2022 HSTROP 180.9 pg/mL Critically high 4.0-76.1 [facility] Comment on above: Result Comment: CUT- OFF POINTS HAVE BEEN ESTABLISHED BASED ON THE FOURTH UNIVERSAL DEFINITIONS OF MYOCARDIAL INFARCTION. THE UPPER REFERENCE LIMIT (URL) OF TROPONIN, DEFINED THE 99TH PERCENTILE OF cTnI DISTRIBUTION IN A REFERENCE POPULATION, HAS BEEN CONFIRMED THE DECISION THRESHOLD FOR [place] DIAGNOSIS. Performed By: #### V ITAD #### [facility] [address] [address] [address] Luis Manuel Asher Urine lactic acid measuremen tOrdered By: Lakesha Haskins on 09-04-2022 Lactate (U) [Moles/Vol] 1.6 mmol/L 0.5-2.2 [facility] [place] [facility] XR CHEST 1 Von 09-04-2022 XR CHEST 1 V ONE-VIEW CHEST RADIOGRAPH, 09/04/2022 4:55 PM EST COMPARISON: Chest, 11/02/2020. CLINICAL HISTORY: SHORTNESS OF BREATH/weakness and confusion. Findings and impression: 1. Some questionable interstitial pulmonary edema suspected. Some underlying inflammatory or infectious pneumonitis cannot be excluded. 2. Borderline heart size. 3. No acute osseous abnormality. Electronically authenticated by: Gael KENNEY Date: 2022-09-04 17:54 Normal [facility] MICROALBUMIN URINEon 022 Albumin, Urine 30.0 ug/mL Normal Not Estab. The [facility] Comment on above: Performed By: #### A CETON #### [facility] [address] [place], [place] [address] Dr. Luis Manuel Asher CBC AUTO DIFFon 04-24-2022 BASO # 0.0 103/ul Normal 0.0-0.1 [facility] Comment on above: Performed By: #### C BC #### [facility] [address], [place] [address] Dr. Luis Manuel Asher Basophils/100 WBC (Bld) 0.5 % Normal 0.2-2.0 [facility] Comment on above: Performed By: #### C BC #### [facility] [address] [place] [address] Dr. Luis Manuel Asher EO # 0.1 103/ul Normal 0.0-0.7 [facility] Comment on above: Performed By: #### C BC #### [facility] [address] [place] [address] Dr. Luis Manuel Asher Eosinophils/100 WBC (Bld) 1.4 % Normal 0.9-7.0 [facility] Comment on above: Performed By: #### C BC #### [facility] [address] [place] [address] Dr. Luis Manuel Asher Erythrocyte distribution width (RBC) [Ratio] 13.1 % Normal 11.0-15.0 [facility] Comment on above: Performed By: #### C BC #### [facility] [address] [place] [address] Dr. Luis Manuel Asher Hematocrit (Bld) [Volume fraction] 39.3 % Critically low 42.0-54.0 [facility] Comment on above: Performed By: #### C BC #### [facility] [address] [place] [address] Dr. Luis Manuel Asher Hemoglobin (Bld) [Mass/Vol] 13.3 g/dL Critically low 14.0-18.0 [facility] Comment on above: Performed By: #### C BC #### [facility] [address] [place] [address] Dr. Luis Manuel Asher IG # 0.02 10e3/ul Normal 0.00-0.03 [facility] Comment on above: Performed By: #### C BC #### [facility] [address] [place] [address] Dr. Luis Manuel Asher IG % 0.3 % Normal 0.0-0.5 [facility] Comment on above: Performed By: #### C BC #### [facility] [address] [place] [address] Dr. Luis Manuel Asher LYMPH # 0.6 103/ul Critically low 1.2-3.8 [facility] Comment on above: Performed By: #### C BC #### [facility] [address] [place] [address] Dr. Luis Manuel Asher Lymphocytes/100 WBC (Bld) 9.1 % Critically low 20.5-60.0 [facility] Comment on above: Performed By: #### C BC #### [facility] [address] [place] [address] Dr. LuisM anuel Asher MANUAL DIFF REQ NO Normal [facility] Comment on above: Performed By: #### C BC #### [facility] [address] [place] [address] Dr. Luis Manuel Asher MCH (RBC) [Entitic mass] 31.0 pg Normal 25.9-34.0 [facility] Comment on above: Performed By: #### C BC #### [facility] [address] [place] [address] Dr. Luis Manuel Asher MCHC (RBC) [Mass/Vol] 33.8 g/dL Normal 29.9-35.2 [facility] Comment on above: Performed By: #### C BC #### [facility] [address] [place] [address] Dr. Luis Manuel Asher MCV (RBC) [Entitic vol] 91.6 fL Normal 80.0-94.0 [facility] Comment on above: Performed By: #### C BC #### [facility] [address] [place] [address] Dr. Luis Manuel Asher MONO # 0.7 103/ul Normal 0.3-0.8 [facility] Comment on above: Performed By: #### C BC #### [facility] [address] [place] [address] Dr. Luis Manuel Asher Monocytes/100 WBC (Bld) 10.3 % Normal 1.7-12.0 [facility] Comment on above: Performed By: #### C BC #### [facility] [address] [place] [address] Dr. Luis Manuel Asher NEUT # 5.0 103/ul Normal 1.4-6.5 [facility] Comment on above: Performed By: #### C BC #### [facility] [address] [address] [address] Luis Manuel Asher Neutrophils/100 WBC (Bld) 78.4 % Critically high 43.0-75.0 [facility] Comment on above: Performed By: #### C BC #### [facility] [address] [address] [address] Luis Manuel Asher Platelet mean volume (Bld) [Entitic vol] 9.7 fL Normal 9.5-13.5 [facility] Comment on above: Performed By: #### C BC #### [facility] [address] [address] [address] Luis Manuel Asher PLT 148 103/ul Critically low 150-450 [facility] Comment on above: Performed By: #### C BC #### [facility] [address] [address] [address] Luis Manuel Asher RBC 4.29 106/ul Critically low 4.70-6.10 [facility] Comment on above: Performed By: #### C BC #### [facility] [address] [address] [address] Luis Manuel Asher WBC 6.4 103/ul Normal 4.0-11.0 [facility] Comment on above: Performed By: #### C BC #### [facility] [address] [address] [address] Luis Manuel Asher GLYCOHEMOGLOBIN A1Con 2021 ADA RECOMMENDATION SEE BELOW Normal [facility] Comment on above: Result Comment: ADA RECOMMENDED LIMIT 4.0 - 6.0 ADA THERAPEUTIC TARGET < 7.0 ACTION SUGGESTED > 7.0 Performed By: #### A CETON #### [facility] [address] [address] [address] Luis Manuel Asher Glucose [Mass/Vol] 169 mg/dL Normal [facility] Comment on above: Performed By: #### A CETON #### [facility] [address] [address] [address] Luis Manuel Asher HbA1c (Bld) [Mass fraction] 7.5 % Critically high 4.5-6.2 [facility] Comment on above: Performed By: #### A CETON #### [facility] [address] [address] [address] Luis Manuel Asher PROF CHEM 8 (BAS METB)on Anion gap [Moles/Vol] 7.8 mmol/L Normal [facility] Comment on above: Performed By: #### B MP #### [facility] [address] [place] [address] Dr. Luis Manuel Asher Calcium [Mass/Vol] 8.3 mg/dL Critically low 8.5-10.1 [facility] Comment on above: Performed By: #### B MP #### [facility] [address] [place] [address] Dr. Luis Manuel Asher Chloride [Moles/Vol] 97 mmol/L Critically low 98-107 [facility] Comment on above: Performed By: #### B MP #### [facility] [address] [place] [address] Dr. Luis Manuel Asher CO2 [Moles/Vol] 29.6 mmol/L Normal 21.0-32.0 [facility] Comment on above: Performed By: #### B MP #### [facility] [address] [place] [address] Dr. Luis Manuel Asher Creatinine [Mass/Vol] 1.36 mg/dL Critically high 0.70-1.30 [facility] Comment on above: Performed By: #### B MP #### [facility] [address] [place] [address] Dr. Luis Manuel Asher EGFR-AF WALLISIAN >60 Normal >=60 [facility] Comment on above: Performed By: #### B MP #### [facility] [address] [place] [address] Dr. Luis Manuel Asher EGFR-NON AF WALLISIAN 50 mL/min/1.73m2 Critically low >=60 [facility] Comment on above: Performed By: #### B MP #### [facility] [address] [place] [address] Dr. Luis Manuel Asher Glucose [Mass/Vol] 331 mg/dL Critically high 74-106 [facility] Comment on above: Performed By: #### B MP #### [facility] [address] [address] [address] Luis Manuel Asher Potassium [Moles/Vol] 4.4 mmol/L Normal 3.5-5.1 [facility] Comment on above: Performed By: #### B MP #### [facility] [address] [address] [address] Luis Manuel Asher Sodium [Moles/Vol] 130 mmol/L Critically low 136-145 [facility] Comment on above: Performed By: #### B MP #### [facility] [address] [address] [address] Luis Manuel Asher Urea nitrogen [Mass/Vol] 15.0 mg/dL Normal 7.0-18.0 [facility] Comment on above: Performed By: #### B MP #### [facility] [address] [place] [address] Dr. Luis Manuel Asher Urea nitrogen/Creatinine [Mass ratio] 11.0 mg/mg Normal [facility] Comment on above: Performed By: #### B MP #### [facility] [address] [place] [address] Dr. Luis Manuel Asher OT - Home Exercise Programon 02-12-2022 OT - Home Exercise Program [id number] #1.00CD:127 Normal [facility] OT - Otheron 02-12-2022 OT - Other [id number] #1.00CD:127 Normal [facility] Nonvisit Note - OTon 022 Nonvisit Note - OT Pt. cx, still at the eye doctor. Normal [facility] Nonvisit Note - OTon 022 Nonvisit Note - OT cancelled per Pt's unable to make this appointment. Normal [facility] PT - Home Exercise Programon 12-15-2021 PT - Home Exercise Program [id number] 5#1.00CD:127 Normal [facility] PT - Home Exercise Programon 12-11-2021 PT - Home Exercise Program [id number] 3#1.00CD:127 Normal [facility] PT - Assessmentson 2 PT - Assessments [id number] #1.00CD:127 Normal [facility] FERRITINon 11-29-2021 Ferritin [Mass/Vol] 57.0 ng/mL Normal 17.9-464.0 [facility] Comment on above: Performed By: #### F ERR #### [facility] [address] [address] [address] Luis Manuel Asher GLYCOHEMOGLOBIN A1Con 2021 ADA RECOMMENDATION ADA THERAPEUTIC TARGET 6.0 - 7.0 ACTION SUGGESTED > 7.0 Normal [facility] Comment on above: Performed By: #### A 1C #### [facility] [address] [address] [address] Luis Manuel Asher Glucose [Mass/Vol] 146 mg/dL Normal [facility] Comment on above: Performed By: #### A 1C #### [facility] [address] [address] [address] Luis Manuel Asher HbA1c (Bld) [Mass fraction] 6.7 % Critically high <=6.0 [facility] Comment on above: Performed By: #### A 1C #### [facility] [address] [address] [address] Luis Manuel Asher PT - Assessmentson 2 PT - Assessments [id number] 6#1.00CD:127 Normal [facility] PT - Home Exercise Programon 11-23-2021 PT - Home Exercise Program [id number] #1.00CD:127 Normal [facility] PT - Orderson 11-23-2021 PT - Orders [id number] 4#1.00CD:127 Normal [facility] OT - Home Exercise Programon 11-21-2021 OT - Home Exercise Program [id number] #1.00CD:127 Normal [facility] PT - Assessmentson PT - Assessments [id number] 0#1.00CD:127 Normal [facility] CBC AUTO DIFFon 10-30-2021 BASO # 0.0 103/ul Normal 0.0-0.1 [facility] Comment on above: Performed By: #### V ITAD #### [facility] [address] [place] [address] Dr. Luis Manuel Asher Basophils/100 WBC (Bld) 0.6 % Normal 0.2-2.0 [facility] Comment on above: Performed By: #### V ITAD #### [facility] [address] [place] [address] Dr. Luis Manuel Asher EO # 0.2 103/ul Normal 0.0-0.7 [facility] Comment on above: Performed By: #### V ITAD #### [facility] [address] [place] [address] Dr. Luis Manuel Asher Eosinophils/100 WBC (Bld) 2.9 % Normal 0.9-7.0 [facility] Comment on above: Performed By: #### V ITAD #### [facility] [address] [place] [address] Dr. Luis Manuel Asher Erythrocyte distribution width (RBC) [Ratio] 13.1 % Normal 11.0-15.0 [facility] Comment on above: Performed By: #### V ITAD #### [facility] [address] [place] [address] Dr. Luis Manuel Asher Hematocrit (Bld) [Volume fraction] 42.3 % Normal 42.0-54.0 [facility] Comment on above: Performed By: #### V ITAD #### [facility] [address] [place] [address] Dr. Luis Manuel Asher Hemoglobin (Bld) [Mass/Vol] 14.0 g/dL Normal 14.0-18.0 [facility] Comment on above: Performed By: #### V ITAD #### [facility] [address] [place] [address] Dr. Luis Manuel Asher IG # 0.02 10e3/ul Normal 0.00-0.03 [facility] Comment on above: Performed By: #### V ITAD #### [facility] [address] [place] [address] Dr. Luis Manuel Asher IG % 0.4 % Normal 0.0-0.5 [facility] Comment on above: Performed By: #### V ITAD #### [facility] [address] [place] [address] Dr. Luis Manuel Asher LYMPH # 0.8 103/ul Critically low 1.2-3.8 [facility] Comment on above: Performed By: #### V ITAD #### [facility] [address] [place] [address] Dr. Luis Manuel Asher Lymphocytes/100 WBC (Bld) 15.5 % Critically low 20.5-60.0 [facility] Comment on above: Performed By: #### V ITAD #### [facility] [address] [place] [address] Dr. Luis Manuel Asher MANUAL DIFF REQ NO Normal [facility] Comment on above: Performed By: #### V ITAD #### [facility] [address] [place] [address] Dr. Luis Manuel Asher MCH (RBC) [Entitic mass] 30.5 pg Normal 25.9-34.0 [facility] Comment on above: Performed By: #### V ITAD #### [facility] [address] [place] [address] Dr. Luis Manuel Asher MCHC (RBC) [Mass/Vol] 33.1 g/dL Normal 29.9-35.2 [facility] Comment on above: Performed By: #### V ITAD #### [facility] [address] [place] [address] Dr. Luis Manuel Asher MCV (RBC) [Entitic vol] 92.2 fL Normal 80.0-94.0 [facility] Comment on above: Performed By: #### V ITAD #### [facility] [address] [place] [address] Dr. Luis Manuel Asher MONO # 0.5 103/ul Normal 0.3-0.8 [facility] Comment on above: Performed By: #### V ITAD #### [facility] [address] [place] [address] Dr. Luis Manuel Asher Monocytes/100 WBC (Bld) 10.0 % Normal 1.7-12.0 [facility] Comment on above: Performed By: #### V ITAD #### [facility] [address] [place] [address] Dr. Luis Manuel Asher NEUT # 3.6 103/ul Normal 1.4-6.5 [facility] Comment on above: Performed By: #### V ITAD #### [facility] [address] [place] [address] Dr. Luis Manuel Asher Neutrophils/100 WBC (Bld) 70.6 % Normal 43.0-75.0 [facility] Comment on above: Performed By: #### V ITAD #### [facility] [address] [place] [address] Dr. Luis Manuel Asher Platelet mean volume (Bld) [Entitic vol] 10.1 fL Normal 9.5-13.5 [facility] Comment on above: Performed By: #### V ITAD #### [facility] [address] [place] [address] Dr. Luis Manuel Asher PLT 161 103/ul Normal 150-450 [facility] Comment on above: Result Comment: smea r reviewed for platelets Performed By: #### V ITAD #### [facility] [address] [place] [address] Dr. Luis Manuel Asher RBC 4.59 106/ul Critically low 4.70-6.10 [facility] Comment on above: Performed By: #### V ITAD #### [facility] [address] [place] [address] Dr. Luis Manuel Asher WBC 5.1 103/ul Normal 4.0-11.0 [facility] Comment on above: Performed By: #### V ITAD #### [facility] [address] [place] [address] Dr. Luis Manuel Asher PROF 14(COMP METB)on 022 Albumin [Mass/Vol] 3.9 g/dL Normal 3.5-5.0 [facility] Comment on above: Performed By: #### T EMERITA, CMP #### [facility] [address] [place] [address] Dr. Luis Manuel Asher Albumin/Globulin [Mass ratio] 1.2 {ratio} Normal [facility] Comment on above: Performed By: #### T EMERITA, CMP #### [facility] [address] [place] [address] Dr. Luis Manuel Asher ALP [Catalytic activity/Vol] 85 U/L Normal 38-126 [facility] Comment on above: Performed By: #### T EMERITA, CMP #### [facility] [address] [place] [address] Dr. Luis Manuel Asher ALT [Catalytic activity/Vol] 28 U/L Normal 21-72 [facility] Comment on above: Performed By: #### T EMERITA, CMP #### [facility] [address] [place] [address] Dr. Luis Manuel Asher Anion gap [Moles/Vol] 8.6 mmol/L Normal [facility] Comment on above: Performed By: #### T EMERITA, CMP #### [facility] [address] [place] [address] Dr. Luis Manuel Asher AST [Catalytic activity/Vol] 14 U/L Critically low 17-59 [facility] Comment on above: Performed By: #### T EMERITA, CMP #### [facility] [address] [place] [address] Dr. Luis Manuel Asher Bilirubin [Mass/Vol] 0.4 mg/dL Normal 0.2-1.3 [facility] Comment on above: Performed By: #### T EMERITA, CMP #### [facility] [address] [place] [address] Dr. Luis Manuel Asher Calcium [Mass/Vol] 9.7 mg/dL Normal 8.4-10.2 [facility] Comment on above: Performed By: #### T SH, CMP #### [facility] [address] [place] [address] Dr. Luis Manuel Asher Chloride [Moles/Vol] 99 mmol/L Normal 98-107 [facility] Comment on above: Performed By: #### T SH, CMP #### [facility] [address] [address] [address] Luis Manuel Asher CO2 [Moles/Vol] 32.2 mmol/L Critically high 22.0-30.0 [facility] Comment on above: Performed By: #### T SH, CMP #### [facility] [address] [place] [address] Dr. Luis Manuel Asher Creatinine [Mass/Vol] 1.20 mg/dL Normal 0.66-1.25 [facility] Comment on above: Performed By: #### T SH, CMP #### [facility] [address] [place] [address] Dr. Luis Manuel Asher EGFR-AF WALLISIAN >60 Normal >=60 [facility] Comment on above: Performed By: #### T SH, CMP #### [facility] [address] [place] [address] Dr. Luis Manuel Asher EGFR-NON AF WALLISIAN 58 mL/min/1.73m2 Critically low >=60 [facility] Comment on above: Performed By: #### T EMERITA, CMP #### [facility] [address] [place] [address] Dr. Luis Manuel Asher Globulin (S) [Mass/Vol] 3.2 g/dL Normal [facility] Comment on above: Performed By: #### T SH, CMP #### [facility] [address] [place] [address] Dr. Luis Manuel Asher Glucose [Mass/Vol] 135 mg/dL Critically high 74-106 [facility] Comment on above: Performed By: #### T SH, CMP #### [facility] [address] [place] [address] Dr. Luis Manuel Asher Potassium [Moles/Vol] 4.8 mmol/L Normal 3.4-5.0 [facility] Comment on above: Performed By: #### T EMERITA, CMP #### [facility] [address] [place] [address] Dr. Luis Manuel Asher Protein [Mass/Vol] 7.1 g/dL Normal 6.1-8.2 [facility] Comment on above: Performed By: #### T EMERITA, CMP #### [facility] [address] [place] [address] Dr. Luis Manuel Asher Sodium [Moles/Vol] 135 mmol/L Critically low 137-145 [facility] Comment on above: Performed By: #### T EMERITA, CMP #### [facility] [address] [place] [address] Dr. Luis Manuel Asher Urea nitrogen [Mass/Vol] 19.0 mg/dL Normal 9.0-20.0 [facility] Comment on above: Performed By: #### T EMERITA, CMP #### [facility] [address] [place] [address] Dr. Luis Manuel Asher Urea nitrogen/Creatinine [Mass ratio] 15.8 mg/mg Normal [facility] Comment on above: Performed By: #### T EMERITA, CMP #### [facility] [address] [place] [address] Dr. Luis Manuel Asher PT - Orderson 10-30-2021 PT - Orders [id number] #1.00CD:127 Normal [facility] TSHon 10-30-2021 TSH 1.146 uIU/mL Normal 0.470-4.680 [facility] Comment on above: Performed By: #### V ITAD #### [facility] [address] [place] [address] Dr. Luis Manuel Asher TSH RANGE SEE BELOW Normal [facility] Comment on above: Result Comment: <0.3 4 UIU/ml HYPERTHYROID 0.34-5.60 UIU/ml EUTHYROID >5.60 UIU/ml HYPOTHYROID Performed By: #### V ITAD #### [facility] [address] [address] [address] Luis Manuel Asher VITAMIN D 25 OHon 10-30-2021 VIT D 25-OH 84.6 ng/mL Normal [facility] Comment on above: Performed By: #### V ITAD #### [facility] [address] [address] [address] Luis Manuel Asher VIT D RANGES SEE BELOW Normal [facility] Comment on above: Result Comment: <20 ng/mL Vit D deficient 20 - <30 ng/mL Vit D insufficient 30 - 100 ng/mL Vit D sufficient >100 ng/mL Potential Toxicity Performed By: #### V ITAD #### [facility] [address] [place] [address] Dr. Luis Manuel Asher Vital Signs Date Time Vital Sign Value Performing Clinician Facility 08-07-2023 10:30-0500 Body height 180.34 cm Erich Lolay Other [facility] Other 08-07-2023 10:30-0500 Body mass index (BMI) [Ratio] 34.42 kg/m2 Erich Ball Other [facility] Other 08-07-2023 10:30-0500 Body weight 111.95 kg Erich Ball Other [facility] [employer] [facility] Other 08-07-2023 10:30-0500 Diastolic blood pressure 74 mm[Hg] Erich Ball Other [facility] Other 08-07-2023 10:30-0500 Respiratory rate 12 /min Erich Ball Other [facility] [employer] [facility] Other 08-07-2023 10:30-0500 Systolic blood pressure 136 mm[Hg] Erich Ball Other [facility] Other 05-08-2023 11:00-0400 Body height 180.34 cm Erich Ball Other [facility] [employer] [facility] Other 05-08-2023 11:00-0400 Body mass index (BMI) [Ratio] 34.84 kg/m2 Erich Ball Other [facility] Other 05-08-2023 11:00-0400 Body weight 113.31 kg Erich Ball Other [facility] Other 05-08-2023 11:00-0400 Diastolic blood pressure 79 mm[Hg] Erich Ball Other [facility] Other 05-08-2023 11:00-0400 Respiratory rate 12 /min Erich Ball Other [facility] Other 05-08-2023 11:00-0400 Systolic blood pressure 161 mm[Hg] Erich Ball Other [facility] Other 03-11-2023 12:48-0400 Body height 182.88 cm Erich E Ball Work Phone: [facility] [employer] DO Work Phone: 03-11-2023 12:48-0400 Body mass index (BMI) [Ratio] 33.92 kg/m2 Erich E Ball Work Phone: [facility] [employer] DO Work Phone: 03-11-2023 12:48-0400 Body surface area Derived from formula 2.34 m2 Erich E Ball Work Phone: [facility] [facility] [employer] DO Work Phone: 03-11-2023 12:48-0400 Body weight 113.46 kg Erich E Ball Work Phone: [facility] [email or web address] DO Work Phone: 03-11-2023 12:48-0400 Diastolic blood pressure 72 mm[Hg] Erich E Ball Work Phone: [facility] [employer] 250 DO Work Phone: 03-11-2023 12:48-0400 Heart rate 78 /min Erich E Ball Work Phone: [facility] [employer] 250 DO Work Phone: 03-11-2023 12:48-0400 Systolic blood pressure 128 mm[Hg] Erich E Ball Work Phone: [facility] [employer] DO Work Phone: 02-05-2023 14:30-0400 Body height 180.34 cm Erich Ball Other [facility] Other 02-05-2023 14:30-0400 Body mass index (BMI) [Ratio] 35.42 kg/m2 Erich Ball Other [employer] Other 02-05-2023 14:30-0400 Body weight 115.21 kg Erich Ball Other [employer] Other 02-05-2023 14:30-0400 Diastolic blood pressure 74 mm[Hg] Erich Ball Other [facility] Other 02-05-2023 14:30-0400 Respiratory rate 12 /min Erich Ball Other [employer] Other 02-05-2023 14:30-0400 Systolic blood pressure 117 mm[Hg] Erich Ball Other [employer] Other 12-17-2022 14:49-0400 Body height 182.88 cm Erich E Ball Work Phone: [facility] [employer] 250 DO Work Phone: 12-17-2022 14:49-0400 Body mass index (BMI) [Ratio] 34.31 kg/m2 Erich E Ball Work Phone: [facility] [employer] 250 DO Work Phone: 12-17-2022 14:49-0400 Body surface area Derived from formula 2.35 m2 Erich E Ball Work Phone: [facility] 250 DO Work Phone: 12-17-2022 14:49-0400 Body weight 114.76 kg Erich E Ball Work Phone: [facility] 250 DO Work Phone: 12-17-2022 14:49-0400 Diastolic blood pressure 70 mm[Hg] Erich E Ball Work Phone: [facility] 250 DO Work Phone: 12-17-2022 14:49-0400 Heart rate 76 /min Erich E Ball Work Phone: [facility] [employer] 250 DO Work Phone: 12-17-2022 14:49-0400 Systolic blood pressure 128 mm[Hg] Erich E Ball Work Phone: [facility] 250 DO Work Phone: 12-11-2022 14:00-0400 63 1 Erich E Ball Work Phone: [facility] [email or web address] [place] Work Phone: Comment on above: [id number] 11-21-2022 12:00-0400 Body height 180.34 cm Erich Ball Other [facility] [employer] Other 11-21-2022 12:00-0400 Body mass index (BMI) [Ratio] 35.37 kg/m2 Erich Ball Other [facility] [employer] Other 11-21-2022 12:00-0400 Body weight 115.03 kg Erich Ball Other [facility] Other 11-21-2022 12:00-0400 Diastolic blood pressure 73 mm[Hg] Erich Ball Other [facility] [employer] Other 11-21-2022 12:00-0400 Respiratory rate 16 /min Erich Ball Other [facility] [employer] Other 11-21-2022 12:00-0400 Systolic blood pressure 144 mm[Hg] Erich Ball Other [facility] [employer] Other 11-12-2022 10:48-0400 Diastolic blood pressure 80 mm[Hg] Erich E Ball Work Phone: [facility] [employer] 250 DO Work Phone: 11-12-2022 10:48-0400 Systolic blood pressure 142 mm[Hg] Erich E Ball Work Phone: [facility] [employer] 250 DO Work Phone: 11-12-2022 10:27-0400 Diastolic blood pressure 86 mm[Hg] Erich E Ball Work Phone: [facility] [employer] 250 DO Work Phone: 11-12-2022 10:27-0400 Systolic blood pressure 148 mm[Hg] Erich E Ball Work Phone: [facility] [employer] 250 DO Work Phone: 11-12-2022 10:22-0400 Body height 182.88 cm Erich E Ball Work Phone: [facility] [employer] 250 DO Work Phone: 11-12-2022 10:22-0400 Body mass index (BMI) [Ratio] 34.31 kg/m2 Erich E Ball Work Phone: [facility] [employer] 250 DO Work Phone: 11-12-2022 10:22-0400 Body surface area Derived from formula 2.35 m2 Erich E Ball Work Phone: [facility] [email or web address] 250 DO Work Phone: 11-12-2022 10:22-0400 Body weight 114.76 kg Erich E Ball Work Phone: [facility] [employer] 250 DO Work Phone: 11-12-2022 10:22-0400 Diastolic blood pressure 86 mm[Hg] Erich E Ball Work Phone: [facility] [employer] 250 DO Work Phone: 11-12-2022 10:22-0400 Heart rate 85 /min Erich E Ball Work Phone: [facility] [employer] 250 DO Work Phone: 11-12-2022 10:22-0400 Systolic blood pressure 150 mm[Hg] Erich E Ball Work Phone: [facility] [employer] 250 DO Work Phone: 10-26-2022 11:30-0500 Body height 180.34 cm Erich Ball Other [facility] [employer] Other 10-26-2022 11:30-0500 Body mass index (BMI) [Ratio] 34.22 kg/m2 Erich Ball Other [facility] [employer] Other 10-26-2022 11:30-0500 Body weight 111.31 kg Erich Ball Other [facility] [employer] Other 10-26-2022 11:30-0500 Diastolic blood pressure 68 mm[Hg] Erich Ball Other [facility] [employer] Other 10-26-2022 11:30-0500 Respiratory rate 16 /min Erich Ball Other [facility] [employer] Other 10-26-2022 11:30-0500 SaO2% (BldA) [Mass fraction] 97 % Erich Ball Other [facility] [employer] Other 10-26-2022 11:30-0500 Systolic blood pressure 122 mm[Hg] Erich Ball Other [facility] [employer] Other 09-09-2022 08:15-0500 SaO2% (BldA) [Mass fraction] 93 % Pascual PRINCE [facility] 09-08-2022 11:46-0500 Body temperature 97.8 [degF] DO Erich Ball Work Phone: [facility] 09-08-2022 11:46-0500 Diastolic blood pressure 73 mm[Hg] DO Erich Ball Work Phone: [facility] 09-08-2022 11:46-0500 Heart rate 82 /min DO Erich Ball Work Phone: [facility] 09-08-2022 11:46-0500 Inhaled oxygen flow rate 2 L/min DO Erich Ball Work Phone: [facility] 09-08-2022 11:46-0500 Respiratory rate 17 /min DO Erich Ball Work Phone: [facility] 09-08-2022 11:46-0500 SaO2% (BldA) [Mass fraction] 92 % DO Erich Ball Work Phone: [facility] 09-08-2022 11:46-0500 Systolic blood pressure 121 mm[Hg] DO Erich Ball Work Phone: [facility] 09-08-2022 06:00-0500 Body weight 110.3 kg DO Erich Ball Work Phone: [facility] 09-05-2022 15:05-0500 Body height 180.34 cm DO Erich Ball Work Phone: [facility] Encounters Encounter Date Encounter Type Care Provider Facility Start: 2023 End: 2023 ambulatory Erich Javon Other [employer] Other Start: 2023 Telephone encounter Erich Key [facility] Start: 08-23-2023 End: 08-23-2023 ambulatory Erich Ball Other [employer] Other Start: 08-23-2023 Telephone encounter Erich Key [facility] Start: 08-07-2023 End: 08-07-2023 ambulatory Erich Ball Other [employer] Other Start: 08-07-2023 Office outpatient vi sit 25 minutes Erich Ball [facility] Start: 07-23-2023 End: 07-23-2023 ambulatory Erich Ball Other [employer] Other Start: 07-23-2023 Nursing evaluation o f patient and report Erich Ball [facility] Start: 06-18-2023 End: 06-18-2023 ambulatory Erich Ball Other [employer] Other Start: 06-18-2023 Nursing evaluation o f patient and report Erich Key [facility] Start: 06-05-2023 End: 06-05-2023 ambulatory Erich Ball Other [employer] Other Start: 06-05-2023 Telephone encounter Erich Key [facility] Start: 06-04-2023 End: 06-04-2023 ambulatory Erich Ball Other [employer] Other Start: 06-04-2023 Telephone encounter Erich Key [facility] Start: 05-08-2023 End: 05-08-2023 ambulatory Erich Ball Other [employer] Other Start: 05-08-2023 Patient encounter procedure Erich Ball [facility] Start: 04-22-2023 End: 04-22-2023 ambulatory Erich Ball Other [employer] Other Start: 04-22-2023 Telephone encounter Erich JAVIER [facility] Start: 03-20-2023 End: 03-20-2023 ambulatory Erich Key Other [employer] Other Start: 03-20-2023 Nursing evaluation o f patient and report Erich Key [facility] Start: 03-11-2023 Office outpatient vi sit 15 minutes Erich E Javon Work Phone: [facility] 250 DO Work Phone: Start: 03-11-2023 ambulatory MD CATHLEEN LOPEZ Facilit y: Start: 02-14-2023 End: 02-14-2023 ambulatory Erich Key Other [employer] Other Start: 02-14-2023 Telephone encounter Erich JAVIER [facility] Start: 02-13-2023 End: 02-13-2023 ambulatory Erich Key Other [employer] Other Start: 02-13-2023 Telephone encounter Erich JAVIER [facility] Start: 02-11-2023 End: 02-11-2023 ambulatory Staci Burnette Other [employer] Other Start: 02-11-2023 Nursing evaluation o f patient and report Staci Burnette [facility] Start: 02-05-2023 End: 02-05-2023 ambulatory Erich Key Other [employer] Other Start: 02-05-2023 Office outpatient vi sit 25 minutes Erich Key [facility] Start: 01-10-2023 End: 01-10-2023 ambulatory Erich Key Other [employer] Other Start: 01-10-2023 Nursing evaluation o f patient and report Erich Key [facility] Start: 01-10-2023 Telephone encounter Erich Ball [facility] Start: 12-17-2022 Office outpatient vi sit 25 minutes Erich Valentine Ball Work Phone: [facility] 250 DO Work Phone: Start: 12-17-2022 ambulatory MD CATHLEEN Rivera y: Start: 12-12-[address] Cathleen Joseph [id number] Start: 12-11-2022 Patient encounter procedure Erich Grijalva [facility] [place] Work Phone: Start: 12-11-[address] Cathleen Joseph [id number] Start: 12-03-2022 End: 12-03-2022 ambulatory Erich Key Other [employer] Other Start: 12-03-2022 Telephone encounter Erich Key [facility] Start: 11-21-2022 End: 11-21-2022 ambulatory Erich Key Other [employer] Other Start: 11-21-2022 Office outpatient vi sit 25 minutes Erich Key [facility] Start: 11-12-2022 Office consultation new/estab patient 60 min Erich Grijalva Ball Work Phone: [facility] 250 DO Work Phone: Start: 11-12-2022 Patient encounter procedure Erich Key Work Phone: [facility] 250 DO Work Phone: Start: 11-12-2022 ambulatory MD CATHLEEN LOPEZ Facilit y: Start: 10-26-2022 End: 10-26-2022 ambulatory Erich Key Other [employer] Other Start: 10-26-2022 Office outpatient vi sit 25 minutes Erich Key [facility] Start: 10-16-2022 End: 10-24-2022 ambulatory ERICH KEY Facility:[facility] Start: 10-07-2022 End: 10-07-2022 ambulatory Erich Key Other [employer] Other Start: 10-07-2022 Telephone encounter Erich Dupree [facility] Start: 10-03-2022 End: 10-03-2022 ambulatory Erich Key Other [employer] Other Start: 10-03-2022 Telephone encounter Erich Javon Dupree [facility] Start: 09-25-2022 End: 09-25-2022 ambulatory Erich Key Other [employer] Other Start: 09-25-2022 Telephone encounter Erich Dupree [facility] Start: 09-19-2022 End: 2022 ambulatory Ramona Burnham Facility:[id number] Start: 09-19-2022 End: 09-19-2022 [facility]Site [facility] Start: 09-10-2022 End: 09-11-2022 ambulatory Pascual PRINCE Facility:[id number] Start: 09-10-2022 Telephone encounter Erich Dupree [facility] Start: 09-10-2022 End: 09-10-2022 Off-Site [facility] Start: 09-08-2022 End: 09-19-2022 ambulatory Pascual SAGAMORE Facility:[facility] Start: 09-08-2022 End: 09-19-2022 Evaluation and management of inpatient Pascual PRINCE [facility] Start: 09-05-2022 End: 09-05-2022 ambulatory Erich Key Other [employer] Other Start: 09-05-2022 Telephone encounter Erich Key No [facility] Start: 09-05-[address] Erich Key Facility:[id number] Start: 09-04-2022 End: 09-08-2022 Evaluation and management of inpatient Randolph Velasquez Facility:[facility] Start: 09-04-2022 End: 09-08-2022 Evaluation and management of inpatient DO Erich Key Work Phone: [facility] [employer] Work Phone: Start: 09-04-2022 End: 09-04-[address] ERICH KEY Facility:[facility] Start: 04-24-2022 End: 04-25-[address] ERICH KEY Facility:[facility] Start: 04-23-2022 Adult health examination Jorge L anderson Javon Other [employer] Other Start: 11-29-2021 End: 11-30-[address] ERICH KEY Facility:[facility] Start: 10-30-2021 End: 10-31-[address] ERICH KEY Facility:[facility] Procedures Date Procedure Procedure Detail Performing Clinician Start: 09-08-2022 SARS Antigen (LFIA) DO Erich Key Work Phone: Start: 09-05-2022 CT of thorax with contrast DO Erich Key Work Phone: Start: 09-05-2022 Plain chest X-ray DO Dominic son Javon Work Phone: Start: 05-01-2021 Open reduction of fr acture with internal fixation Pascual PRINCE Comment on above: HUMERAL SHAFT WITH E XTENSION OF HUMERAL HEAD. Start: 04-28-2021 Left upper arm struc ture (body structure) Pascual PRINCE Start: 01-12-2021 Cystourethroscopy wi th dilation of urethral stricture Pascual PRINCE Start: 09-02-2014 Transurethral prostatectomy Pascual PRINCE Cataract surgery Erich Key Work Phone: Depression screening Ashley [facility] Other Operation on colon Erich Key Work Phone: Surgical repair of u pper extremity Erich Grijalva Javon Work Phone: Tonsillectomy Pascual NEWMANLOKI Ambrocio Tonsillectomy Erich Girjalva Reji moulton Work Phone: Total colectomy Pascual NEWMAN ADAM Total colonoscopy Erich Key Work Phone: Plan of Treatment Date Care Activity Detail Author Start: 03-11-2023 FUV, Provider: Cathleen Lopez, Status: Pen, Time: 12:45 PM FUV, Provider: Cathleen Lopez, Status: Pen, Time: 12:45 PM [facility] 250 DO Work Phone: Start: 12-17-2022 FUV, Provider: Cathleen Lopez, Status: Pen, Time: 2:45 PM FUV, Provider: Cathleen Lopez, Status: Pen, Time: 2:45 PM [facility] 250 DO Work Phone: Start: 12-12-2022 REST ONLY, Provider: DON HHVI NUCLEAR 01,[id number], Status: Pen, Time: 12:30 PM REST ONLY, Provider: ODN HHVI NUCLEAR 01,[id number], Status: Pen, Time: 12:30 PM [facility] 250 DO Work Phone: Start: 12-11-2022 STRESSNUC2, Provider : DON HHVI NUCLEAR 01,[id number], Status: Pen, Time: 2:00 PM STRESSNUC2, Provider: DON HHVI NUCLEAR 01,[id number], Status: Pen, Time: 2:00 PM [facility] 250 DO Work Phone: Start: 09-08-2022 [facility] Start: 09-04-[address] [facility] Patient referral [facility] Work Phone: Immunizations Immunization Date Immunization Notes Care Provider Liz dixon 06-10-2022 Fluzone High-Dose Quadrivalent 0.7 ML Intramuscular Suspension Prefilled Syringe Erich Key Work Phone: [facility] 250 DO Work Phone: 06-10-2022 influenza virus vaccine, unspecified formulation Pascual PRINCE [facility] 01-23-2022 Comirnaty 30 MCG/0.3 ML Intramuscular Suspension Erich Key Work Phone: [facility] 250 DO Work Phone: 01-23-2022 SARS-CoV-2 mRNA (dcltldxdlzq-iosa-ehwul se) vaccine Pascual PRINCE [facility] 07-05-2021 COVID-19, mRNA, LNP- S, PF, 100 mcg or 50 mcg dose Pascual PRINCE [facility] 06-23-2021 influenza virus vaccine, split virus (incl. purified surface antigen) Erich Key Other [facility] [employer] Other 04-27-2021 tetanus toxoid, redu angela diphtheria toxoid, and acellular pertussis vaccine, adsorbed Pascual PRINCE [facility] Comment on above: Early/Late Reason: E mikki/Late Reason: Other : . 10-12-2020 SARS-CoV-2 (COVID-19 ) mRNA-1273 vaccine Pascual PRINCE [facility] 09-14-2020 SARS-CoV-2 (COVID-19 ) mRNA-1273 vaccine Pascual PRINCE [facility] 06-02-2020 influenza virus vaccine, unspecified formulation Pascual PRINCE [facility] 09-19-2019 zoster vaccine, live Ashley Key Other [employer] Other 05-30-2019 influenza virus vaccine, split virus (incl. purified surface antigen) Erich Key Other [employer] Other 05-30-2019 zoster vaccine recombinant Pascual PRINCE [facility] 06-11-2018 influenza virus vaccine, split virus (incl. purified surface antigen) Erich Key Other [employer] Other 06-01-2017 influenza virus vaccine, split virus (incl. purified surface antigen) Erich Key Other [employer] Other 02-25-2016 pneumococcal polysaccharide vaccine, 23 valent Erich Key Other [employer] Other 12-18-2014 pneumococcal conjuga te vaccine, 13 valent Erich Key Other [employer] Other 07-11-2005 influenza virus vaccine, whole virus Erich Key Work Phone: [facility] 250 DO Work Phone: 07-11-2005 pneumococcal polysaccharide vaccine, 23 valent Pascual PRINCE [facility] Payers Date Payer Category Payer Self-pay 1961 Medicare [id number] 1961 Unknown [id number] 1938 Unknown [id number] 2.16.8 [id number] 1938 Unknown [id number] 2.16.8 [id number] 1938 Unknown [id number] 2.16.8 [id number] 1938 Unknown [id number] 2.16.8 40.1.002376.3.579.2.727 1938 Unknown [id number] 2.16.84 0.1.865096.3.579.2.593 1938 Unknown [id number] 2.16.84 0.1.206624.3.579.2.593 1938 Unknown [id number] 2.16.84 0.1.414127.3.579.2.593 1938 Unknown [id number] 2.16.84 0.1.847437.3.579.2.593 1938 Unknown [id number] 2.16.8 40.1.359510.3.579.2.1068 1938 Unknown [id number] 2.16.8 [id number] 1938 Unknown [id number] 2.16.8 40.1.001664.3.579.2.1068 1938 Unknown [id number] 2.16. 840.1.370774.3.579.2.356 1938 Unknown [id number] 2.16. [id number] 1938 Unknown [id number] 2.16 [id number] 1938 Unknown [id number] 2.16 [id number] Unknown [id number] 2.16.8 [id number] Unknown Social History Date Type Detail Facility Start: 08-07-2021 Tobacco smoking status Light t obacco smoker (finding) [facility] Sex Assigned At Male [facility] Start: 09-04-2022 [facility] Start: 1940 Sex Assigned At Male [facility] No alcohol use No alcohol use [facility] 250 DO Work Phone: Comment on above: quit smoking in 2019 ; Medical Equipment Procedure Code Equipment Code Equipment Origin al Text Equipment Identifier Dates HUMERUS FRACTURE ORIF Alissa DO Edward K. 05/01/21 Unknown Arm L FDA Start: 05-01-2021 HUMERUS FRACTURE ORIF Maxwell DO, Edward K. 05/01/21 Unknown Arm L FDA Start: 05-01-2021 HUMERUS FRACTURE ORIF Maxwell DO, Edward K. 05/01/21 Unknown Arm L FDA Start: 05-01-2021 HUMERUS FRACTURE ORIF Maxwell DO, Edward K. 05/01/21 Unknown Arm L FDA Start: 05-01-2021 HUMERUS FRACTURE ORIF Maxwell DO, Edward K. 05/01/21 Unknown Arm L FDA Start: 05-01-2021 HUMERUS FRACTURE ORIF Maxwell DO, Edward K. 05/01/21 Unknown Arm L FDA Start: 05-01-2021 HUMERUS FRACTURE ORIF Maxwell DO, Edward K. 05/01/21 Unknown Arm L FDA Start: 05-01-2021 HUMERUS FRACTURE ORIF Maxwell DO, Edward K. 05/01/21 Unknown Arm L FDA Start: 05-01-2021 HUMERUS FRACTURE ORIF Maxwell DO, Edward K. 05/01/21 Unknown Arm L FDA Start: 05-01-2021 HUMERUS FRACTURE ORIF Maxwell DO, Edward K. 05/01/21 Unknown Arm L FDA Start: 05-01-2021 HUMERUS FRACTURE ORIF Maxwell DO, Edward K. 05/01/21 Unknown Arm L FDA Start: 05-01-2021 HUMERUS FRACTURE ORIF Maxwell DO, Edward K. 05/01/21 Unknown Arm L FDA Start: 05-01-2021 HUMERUS FRACTURE ORIF Maxwell DO, Edward K. 05/01/21 Unknown Arm L FDA Start: 05-01-2021 HUMERUS FRACTURE ORIF Maxwell DO, Edward K. 05/01/21 Unknown Arm L FDA Start: 05-01-2021 HUMERUS FRACTURE ORIF Maxwell DO, Edward K. 05/01/21 Unknown Arm L FDA Start: 05-01-2021 HUMERUS FRACTURE ORIF Zach Maxwell DOolas K. 05/01/21 Unknown Arm L FDA Start: 05-01-2021 HUMERUS FRACTURE ORIF Alissa CRISTINA Edward K. 05/01/21 Unknown Arm L FDA Start: 05-01-2021 HUMERUS FRACTURE ORIF Alissa CRISTINA Edward K. 05/01/21 Unknown Arm L FDA Start: 05-01-2021 HUMERUS FRACTURE ORIF Alissa CRISTINA Edward K. 05/01/21 Unknown Arm L FDA Start: 05-01-2021 HUMERUS FRACTURE ORIF Alissa CRISTINA Edward K. 05/01/21 Unknown Arm L FDA Start: 05-01-2021 HUMERUS FRACTURE ORIF Alissa CRISTINA Edward K. 05/01/21 Unknown Arm L FDA Start: 05-01-2021 HUMERUS FRACTURE ORIF Alissa CRISTINA Edward K. 05/01/21 Unknown Arm L FDA Start: 05-01-2021 HUMERUS FRACTURE ORIF Alissa CRISTINA Edward K. 05/01/21 Unknown Arm L FDA Start: 05-01-2021 HUMERUS FRACTURE ORIF Alissa CRISTINA Edward K. 05/01/21 Unknown Arm L FDA Start: 05-01-2021 HUMERUS FRACTURE ORIF Alissa CRISTINA Edward K. 05/01/21 Unknown Arm L FDA Start: 05-01-2021 HUMERUS FRACTURE ORIF Alissa CRISTINA Edward K. 05/01/21 Unknown Arm L FDA Start: 05-01-2021 HUMERUS FRACTURE ORIF Alissa CRISTINA Edward K. 05/01/21 Unknown Arm L FDA Start: 05-01-2021 HUMERUS FRACTURE ORIF Alissa CRISTINA Edward K. 05/01/21 Unknown Arm L FDA Start: 05-01-2021 HUMERUS FRACTURE ORIF Alissa CRISTINA Edward K. 05/01/21 Unknown Arm L FDA Start: 05-01-2021 HUMERUS FRACTURE ORIF Alissa CRISTINA, Edward K. 05/01/21 Unknown Arm L FDA Start: 05-01-2021 HUMERUS FRACTURE ORIF Alissa CRISTINA Edward K. 05/01/21 Unknown Arm L FDA Start: 05-01-2021 HUMERUS FRACTURE ORIF Alissa CRISTINA Edward K. 05/01/21 Unknown Arm L FDA Start: 05-01-2021 HUMERUS FRACTURE ORIF Alissa DO, Edward K. 05/01/21 Unknown Arm L FDA Start: 05-01-2021 HUMERUS FRACTURE ORIF Alissa DO, Edward K. 05/01/21 Unknown Arm L FDA Start: 05-01-2021 HUMERUS FRACTURE ORIF Alissa DO, Edward K. 05/01/21 Unknown Arm L FDA Start: 05-01-2021 HUMERUS FRACTURE ORIF Alissa DO, Edward K. 05/01/21 Unknown Arm L FDA Start: 05-01-2021 HUMERUS FRACTURE ORIF Alissa DO, Edward K. 05/01/21 Unknown Arm L FDA Start: 05-01-2021 HUMERUS FRACTURE ORIF Alissa DO, Edward K. 05/01/21 Unknown Arm L FDA Start: 05-01-2021 HUMERUS FRACTURE ORIF Alissa DO, Edward K. 05/01/21 Unknown Arm L FDA Start: 05-01-2021 HUMERUS FRACTURE ORIF Alissa DO, Edward K. 05/01/21 Unknown Arm L FDA Start: 05-01-2021 HUMERUS FRACTURE ORIF Alissa DO, Edward K. 05/01/21 Unknown Arm L FDA Start: 05-01-2021 HUMERUS FRACTURE ORIF Alissa DO, Edward K. 05/01/21 Unknown Arm L FDA Start: 05-01-2021 HUMERUS FRACTURE ORIF Alissa DO, Edward K. 05/01/21 Unknown Arm L FDA Start: 05-01-2021 HUMERUS FRACTURE ORIF Alissa DO, Edward K. 05/01/21 Unknown Arm L FDA Start: 05-01-2021 HUMERUS FRACTURE ORIF Maxwell DO, Edward K. 05/01/21 Unknown Arm L FDA Start: 05-01-2021 HUMERUS FRACTURE ORIF Maxwell DO, Edward K. 05/01/21 Unknown Arm L FDA Start: 05-01-2021 HUMERUS FRACTURE ORIF Maxwell DO, Edward K. 05/01/21 Unknown Arm L FDA Start: 05-01-2021 HUMERUS FRACTURE ORIF Maxwell DO, Edward K. 05/01/21 Unknown Arm L FDA Start: 05-01-2021 HUMERUS FRACTURE ORIF Rica Maxwell DOs K. 05/01/21 Unknown Arm L FDA Start: 05-01-2021 HUMERUS FRACTURE ORIF Rica Maxwell DOs K. 05/01/21 Unknown Arm L FDA Start: 05-01-2021 HUMERUS FRACTURE ORIF Rica Maxwell DOs K. 05/01/21 Unknown Arm L FDA Start: 05-01-2021 HUMERUS FRACTURE ORIF Rica Maxwell DOs K. 05/01/21 Unknown Arm L FDA Start: 05-01-2021 HUMERUS FRACTURE ORIF Rica Maxwell DOs K. 05/01/21 Unknown Arm L FDA Start: 05-01-2021 HUMERUS FRACTURE ORIF Rica Maxwell DOs K. 05/01/21 Unknown Arm L FDA Start: 05-01-2021 Goals Date Patient Goal Desired Activity /State Functional Status Date Assessment Result Facility 09-08-2022 Functional status Patient at Baseline [facility] Work Phone: Mental Status Date Assessment Result Facility 09-08-2022 Cognitive function Cognitive Sta tus Patient at Baseline [facility] Work Phone: Clinical Notes 12-02-2019 to 2023 Note Date & Type Note Facility 2023 Evaluation note Encounter Date Diagnosis Assessment Notes Sep, Acute prostatitis (ICD-10 - N41.0) [employer] Other 12-06-2023 Evaluation note* Encounter Date Diagnosis Assessment Notes Treatment Notes Treatment Clinical Notes Aug, Type 2 diabetes mellitus with hyperglycemia, without long-term current use of insulin (ICD-10 - E11.65) This patient is following a comprehensive diabetic treatment plan. They are checking their feet daily for calluses and nonhealing ulcers. They are being seen for yearly dilated eye examinations. Goals: SBP less than 130, LDL less than 100, FBS less than 140, A1C less than 7%. They are checking their BS daily, will which are reviewed at the office visit. Continue regular routine monitoring of A1C,] Microalbumin, Dilated eye exam and Foot exam Aug, Type 2 diabetes mellitus with diabetic polyneuropathy, without long-term current use of insulin (ICD-10 - E11.42) Inspect feet daily for cuts and calluses.Recommend diabetic shoes and inserts to prevent callus formation.Fall precautions. Aug, Stage 3b chronic kidney disease (ICD-10 - N18.32) The patient is instructed on adequate control of hypertension and diabetes, if appropriate. They are also educated on the associated risks of NSAIDs and PPI use with kidney disease. They were instructed on adequate fluid balance and to avoid dehydration. Aug, Chronic diastolic heart failure (ICD-10 - I50.32) Healthy, low salt diet and exercise. Daily weights. Euvolemic today w/ mild peripheral edema Aug, Mucopurulent chronic bronchitis (ICD-10 - J41.1) Instructed on smoking cessation. Mucolytics as needed. UTD w/ vaccines Aug, Cigarette nicotine dependence without complication (ICD-10 - F17.210) This patient has been encouraged to quit tobacco use immediately. They are aware of the hazards associated with tobacco use, including but not limited to respiratory infections, vascular disease and cancers. Aug, Primary hypertension (ICD-10 - I10) This patient is instructed to consume a healthy, low-fat, low-salt diet. They are also encouraged to continue exercise to achieve/maintain a normal BMI. Aug, Chronic venous insufficiency (ICD-10 - I87.2) Avoid salt and elevate lower extremities, support stockings, inspect legs and feet daily for blisters and ulcerations. Kassie's sign negative Aug, Fatigue, unspecified type (ICD-10 - R53.83) Multifactorial:- COPD, diastolic heart failure, deconditioning, untreated YASMANI- sedentary lifestyle, poor sleeping habits due to nocturia, daytime somnolence Encouraged to increase activity, walk daily, avoid napping. Discussed testing for YASMANI Aug, Generally unsteady (ICD-10 - R26.81) Neurologic examination normal. Finger-nose, heel-graves, toe-heel walk all normal Romberg negative. Ambulates w/ shoulders forward in a slow tentative shuffling gait Recommend referral to PT Aug, Achilles tendinitis of right lower extremity (ICD-10 - M76.61) No provoking injury or accident. Pain reproduced w/ palpation of mid Gastrocnemius muscle and over distal tendon. No bruising or erythema. Negative Kassie's sign No s/s DVT, ischemia or injury. Likely tendonitis: - instructed on stretching exercises - ice/heat and stretch - refer to PT Aug, Suspected sleep apnea (ICD-10 - R29.818) Refer to sleep clinic for testing. Sleep w/ HOB elevated, avoid back sleeping. Weight loss [employer] Other 11-21-2023 Evaluation note* Encounter Date Diagnosis Assessment Notes Treatment Notes Treatment Clinical Notes Jul, Pernicious anemia (ICD-10 - D51.0) [employer] Other 10-17-2023 Evaluation note* Encounter Date Diagnosis Assessment Notes Treatment Notes Treatment Clinical Notes Jun, Pernicious anemia (ICD-10 - D51.0) [employer] Other 09-06-2023 Evaluation note* Encounter Date Diagnosis Assessment Notes Treatment Notes Treatment Clinical Notes May, Medicare annual well ness visit, subsequent (ICD-10 - Z00.00) Personalized health advice was given to the beneficiary including a written plan for screenings discussed and provided. Advanced care planning reviewed and/or information given as requested. Additional counseling was provided here today in regards to, [ ]. The above visit was performed by [ ], under direct supervision of [ ]. Document reviewed and amended by provider signed below. May, Type 2 diabetes dana itus with hyperglycemia, without long-term current use of insulin (ICD-10 - E11.65) This patient is following a comprehensive diabetic treatment plan. They are checking their feet daily for calluses and nonhealing ulcers. They are being seen for yearly dilated eye examinations. Goals: SBP less than 130, LDL less than 100, FBS less than 140, AC and A1C less than 7%. They are checking their BS daily, will which are reviewed at the office visit. Continue regular routine monitoring of A1C,] Microalbumin, Dilated eye exam and Foot exam May, Type 2 diabetes dana itus with diabetic polyneuropathy, without long-term current use of insulin (ICD-10 - E11.42) Inspect feet daily for cuts and calluses.Recommend diabetic shoes and inserts to prevent callus formation.Fall precautions. May, Stage 3b chronic kid madina disease (ICD-10 - N18.32) May, Chronic diastolic he art failure (ICD-10 - I50.32) Instructed on low salt diet, exercise and daily weights. Instructed to notify office for any unexpected weight gain > 3lbs and/or increased dyspnea, difficulty breathing during sleep, worsening lower extremity swelling, chest pain or lightheadedness. May, Primary hypertension (ICD-10 - I10) This patient is instructed to consume a healthy, low-fat, low-salt diet. They are also encouraged to continue exercise to achieve/maintain a normal BMI. Patient is instructed on home BP measurements: - rest for 5 minutes w/o talking- positioned w/ feet on floor and arm supported- average best 2/3 readings w/ goal < 135/85 May, Mucopurulent chronic bronchitis (ICD-10 - J41.1) Instructed on smoking cessation States he cut back May, Pure hypercholestero lemia (ICD-10 - E78.00) Instructed on diet and exercise with continued statin therapy.Discussed the beneficial effects of lowering cholesterol in reducing the risk for cerebrovascular and cardiovascular disease. May, Chronic venous insufficiency (ICD-10 - I87.2) Avoid salt and elevate lower extremities, support stockings, inspect legs and feet daily for blisters and ulcerations. May, Suspected sleep apne a (ICD-10 - R29.818) This patient is aware of the benefits associated with YASMANI: With continued use, the patient reduces the risk for NV, CVA, HTN, cardiac dysrhythmias and sudden cardiac deaths.The patient is also aware of the association between YASMANI and morning headaches, daytime somnolence, fatigue and obesity Refuses to be tested May, Benign prostatic hyperplasia with lower urinary tract symptoms (ICD-10 - N40.1) Symptoms tolerable Continue FLomax May, Cigarette nicotine dependence without complication (ICD-10 - F17.210) This patient has been encouraged to quit tobacco use immediately. They are aware of the hazards associated with tobacco use, including but not limited to respiratory infections, vascular disease and cancers. [employer] Other 08-21-2023 Evaluation note* Encounter Date Diagnosis Assessment Notes Treatment Notes Treatment Clinical Notes Apr, Mucopurulent chronic bronchitis (ICD-10 - J41.1) [employer] Other 07-19-2023 Evaluation note* Encounter Date Diagnosis Assessment Notes Treatment Notes Treatment Clinical Notes Mar, Pernicious anemia (ICD-10 - D51.0) [employer] Other 06-12-2023 Evaluation note* Encounter Date Diagnosis Assessment Notes Treatment Notes Treatment Clinical Notes Jan, Pernicious anemia (ICD-10 - D51.0) [employer] Other 06-06-2023 Evaluation note* Encounter Date Diagnosis Assessment Notes Treatment Notes Treatment Clinical Notes Jan, Chronic diastolic he art failure (ICD-10 - I50.32) Instructed on low salt diet, exercise and daily weights. Instructed to notify office for any unexpected weight gain > 3lbs and/or increased dyspnea, difficulty breathing during sleep, worsening lower extremity swelling, chest pain or lightheadedness. Jan, Primary hypertension (ICD-10 - I10) This patient is instructed to consume a healthy, low-fat, low-salt diet. They are also encouraged to continue exercise to achieve/maintain a normal BMI. Jan, Mucopurulent chronic bronchitis (ICD-10 - J41.1) Mucinex daily as needed for cough. Push fluids to assist in clearing secretions. SMoking cessation stressed. Jan, Type 2 diabetes dana itus with hyperglycemia (ICD-10 - E11.65) This patient is following a comprehensive diabetic treatment plan. They are checking their feet daily for calluses and nonhealing ulcers. They are being seen for yearly dilated eye examinations. Goals: SBP less than 130, LDL less than 100, FBS less than 140, AC and A1C less than 7%. They are checking their BS daily, will which are reviewed at the office visit. 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 Jan, Cigarette nicotine dependence without complication (ICD-10 - F17.210) This patient has been encouraged to quit tobacco use immediately. They are aware of the hazards associated with tobacco use, including but not limited to respiratory infections, vascular disease and cancers. Jan, Chronic venous insufficiency (ICD-10 - I87.2) Avoid salt and elevate lower extremities, support stockings, inspect legs and feet daily for blisters and ulcerations. Jan, Pure hypercholestero lemia (ICD-10 - E78.00) Instructed on diet and exercise with continued statin therapy.Discussed the beneficial effects of lowering cholesterol in reducing the risk for cerebrovascular and cardiovascular disease. Jan, intermediate (current) use of insulin (ICD-10 - Z79.4) Jan, Bilateral pulmonary infiltrates (ICD-10 - R91.8) Denies dyspnea, cough, wheezing or hemoptysis. Denies fever, chills or any additional symptoms of intercurrent infection Jan, Fatigue, unspecified type (ICD-10 - R53.83) [employer] Other 05-11-2023 Evaluation note* Encounter Date Diagnosis Assessment Notes Treatment Notes Treatment Clinical Notes December, Pernicious anemia (ICD-10 - D51.0) [employer] Other 03-22-2023 Evaluation note* Encounter Date Diagnosis Assessment Notes Treatment Notes Treatment Clinical Notes Oct, Primary hypertension (ICD-10 - I10) This patient is instructed to consume a healthy, low-fat, low-salt diet. They are also encouraged to continue exercise to achieve/maintain a normal BMI. Oct, Type 2 diabetes mellitus with hyperglycemia (ICD-10 - E11.65) This patient is following a comprehensive diabetic treatment plan. They are checking their feet daily for calluses and nonhealing ulcers. They are being seen for yearly dilated eye examinations. Goals: SBP less than 130, LDL less than 100, FBS less than 140, AC and A1C less than 7%. They are checking their BS daily, will which are reviewed at the office visit. Oct, Mucopurulent chronic bronchitis (ICD-10 - J41.1) Mucinex as needed Continue Spiriva and Symbicort Tobacco cessation discussed Oct, Chronic diastolic heart failure (ICD-10 - I50.32) Control BP, diuresis for fluid excess. Increase activity Decrease weight Repeat Echocardiogram yearly Oct, Suspected sleep apnea (ICD-10 - R29.818) Daytime fatigue, easily falls asleep, snoring, increased BMI, enlarged neck size and gender all increase risk for YASMANI. Discussed treatment options, need to complete sleep study before treatment options discussed Weight loss stressed Refer for home sleep study Oct, Cigarette nicotine dependence without complication (ICD-10 - F17.210) This patient has been encouraged to quit tobacco use immediately. They are aware of the hazards associated with tobacco use, including but not limited to respiratory infections, vascular disease and cancers. Oct, intermediate (current) use of insulin (ICD-10 - Z79.4) Oct, Surgical wound infection (ICD-10 - T81.49XA) [employer] Other 02-24-2023 Evaluation note* Encounter Date Diagnosis Assessment Notes Treatment Notes Treatment Clinical Notes Oct, Primary hypertension (ICD-10 - I10) This patient is instructed to consume a healthy, low-fat, low-salt diet. They are also encouraged to continue exercise to achieve/maintain a normal BMI. Oct, Mucopurulent chronic bronchitis (ICD-10 - J41.1) No episodes of acute exacerbation. Continue LABA/ICS and LAMA - may simplify to LABA/LAMA combination Oct, Cigarette nicotine dependence without complication (ICD-10 - F17.210) This patient has been encouraged to quit tobacco use immediately. They are aware of the hazards associated with tobacco use, including but not limited to respiratory infections, vascular disease and cancers. Encouraged to continue abstinence Oct, Type 2 diabetes mellitus with hyperglycemia (ICD-10 - E11.65) This patient is following a comprehensive diabetic treatment plan. They are checking their feet daily for calluses and nonhealing ulcers. They are being seen for yearly dilated eye examinations. Goals: SBP less than 130, LDL less than 100, FBS less than 140, AC and A1C less than 7%. They are checking their BS daily, will which are reviewed at the office visit. A1C: May simplify treatment to lantus and one Metformin - d/c'd ISS coverage Oct, intermediate (current) use of insulin (ICD-10 - Z79.4) Oct, Chronic diastolic heart failure (ICD-10 - I50.32) Maintain euvolemic state. Control BP and HR Oct, Pernicious anemia (ICD-10 - D51.0) COntinue B12 injections Oct, Pneumonia of lower lobe due to infectious organism, unspecified laterality (ICD-10 - J18.9) Review imaging results from [facility] vs CXR f/u to ensure resolution [employer] Other 02-05-2023 Evaluation note* Encounter Date Diagnosis Assessment Notes Treatment Notes Treatment Clinical Notes Oct, Mucopurulent chronic bronchitis (ICD-10 - J41.1) [employer] Other 01-24-2023 Evaluation note* Encounter Date Diagnosis Assessment Notes Treatment Notes Treatment Clinical Notes Sep, Community acquired pneumonia, unspecified laterality (ICD-10 - J18.9) [employer] Other 01-24-2023 Evaluation note* Encounter Date Diagnosis Assessment Notes Treatment Notes Treatment Clinical Notes Sep, Mucopurulent chronic bronchitis (ICD-10 - J41.1) Sep, Chronic venous insufficiency (ICD-10 - I87.2) [employer] Other 01-08-2023 NoteST completed bedside swallow evaluation. Patient admitted to [facility] with dx of RESPIRATORY FAILURE, PNEUMONIA DMII, HTN, ELEVATED TROPONIN. On this date, patient presents with oral, suspect pharyngeal swallow WFL. Patient tolerated trials of pureed, soft and bite sized, regular diet consistencies, and thin liquids. Patient stated he wears full upper dentures, however, were not present during bedside examination. Patient with adequate A\P transit, mild prolonged mastication, and no oral residue remaining post-swallow. No overt s/s of aspiration/penetration were noted throughout all consistenciestrialed. ST recommends regular diet and thin liquids; pills one at a time with water. No additionaldysphagia tx is warranted at this time.[facility]01-07-2023 Discharge summary Author Randolph Velasquez [facility] September 08, 2022 9:31am Note Date/Time September 08, 2022 9: 31am [facility] [address] [place], [place] [id number] Discharge Summary Signed Patient: Jose L Mauricio MR#: [id number] : 1940 Acct:[id number] Age/Sex: 81 / M Adm Date: 3 Loc: 4 Room: [address] [place] [address]: Randolph Velasquez MD Copies to: DO Randolph Delatorre MD~ Providers Date of Discharge: 09/08/22 Discharging Provider: Randolph Velasquez Primary Care Provider: Erich Key Consults: 09/04/22 22:57 Consult to Occupational Therapy Routine Consult to Physical Therapy Routine 09/05/22 09:34 swallow [Consult to Speech Therapy] Routine Discharge Diagnosis (1) Acute respiratory failure with hypoxia: (2) Community acquired pneumonia: (3) Type 2 diabetes mellitus: (4) Hypertension: (5) Elevated troponin: (6) Multifactorial functional impairment: (7) Diastolic heart failure: (8) Tobacco abuse: (9) Tobacco abuse counseling: (10) COPD exacerbation: (11) Abnormal CT lung screening: (12) Hematuria: Final Diagnosis Final Discharge Diagnosis: As listed above and others that are not listed Summary Hospital Course Hospital course: Patient was transferred to [facility] with respiratory distress and hypoxic respiratory failure requiring the use of oxygen. I orderedCAT scan of the chest which showed bilateral infiltration suspected to have pneumonia. Patient had bilateral wheezing indicative of acute COPD exacerbationand bronchospasm. Blood culture from [place] came back negative thus far Patient was started on Unasyn and doxycycline for community and aspiration pneumonia. Patient was seen by speech who did not detect any evidence of aspiration. Patient was started on albuterol, Atrovent, Mucinex and the Solu-Medrol. With the aforementioned the treatment that the patient had made significant improvement and the resolution of his respiratory symptoms. Is back to baselinestate. Patient had never been diagnosed having COPD however I do suspect that he has underlying COPD and emphysema. He has been a smoker for the last 60 years. He used to be heavy smoker but now he smokes a half a pack daily. Patient will be discharged home on a combination of corticosteroid, long-acting but agonist and anticholinergic in addition to as needed but agonist and anticholinergic immediate release Patient will be discharged on antibiotic and a tapered dose of prednisone. Echocardiogram showed evidence of a diastolic heart failure. Patient will be discharged on a small dose of diuretics and potassium supplementation Flat elevation of the troponin. No clinical evidence to suggest ACS or acute plaque rupture nonetheless patient may have underlying CAD. He is on aspirin. Avoid beta-david. Patient will be arranged to follow-up with cardiology in the outpatient setting. He may need to have coronary investigation which may include but not limited to cardiac stress test no evidence of angina at this time Hematuria after Lewis catheter inserted. Could be traumatic in nature. I wouldrecommend repeat UA. If hematuria persist I would recommend referral to see urology. He may need to have cystoscopy or IVP or other imagings for the kidneys Recommended the patient to follow-up with pulmonary regarding underlying COPD. The patient would need to have a repeat CAT scan of the chest in 6 weeks to ensure complete resolution of the abnormality seen otherwise he would need to have additional investigation which may include but not limited to bronchoscopy. I had informed the patient and his family (, son and grandson ) that I may not have addressed or treated all of your medical illnesses or the abnormal blood work or imaging studies during this hospitalization. Please ask your primary care provider to obtain [facility] records entirely to follow up on all of the abnormal physical, laboratory, and imaging findings that I have not addressed. Please return back to the emergency room or seek medical attention if your symptoms worsen or return. Discharging you from [facility] does not mean that your medical care ends here and now. You may still need additional monitoring, work up, investigation, and treatment plan to be handled from this point on by out patient providers including your primary care provider and specialists. For any medication question, please contact your retail pharmacist or your primary care provider. Patient has multiple complex medical issues. All appear to be stable. I do nothave any clear or strong clinical justification to extend inpatient hospitalization. Patient however will require close and the frequent monitoringas well as additional work-up, investigation and therapeutic intervention that could take place from this point on post discharge. That is to prevent relapse,decompensation, rehospitalization and other medical implications. Patient was seen by physical and Occupational Therapy team. He is recommended to be discharged to rehab unit for short period of time before he can go back home. Time Spent with Patient Time spent providing/coordinating discharge services (# min): 75 Diagnostic Studies Completed and Pending Studies Pending studies at discharge: 09/06/22 06:30 Sputum Culture Routine Preliminary micro results at discharge 09/06/22 06:30 Aerobic Culture - Preliminary Sputum - Expectorated Light Normal Respiratory Nadine 1 Day Labs on day of discharge: 09/08/22 07:39: POC Glucose 179 09/08/22 05:39: PHA Creatinine Clear 62.70, Sodium 134 L, Potassium 3.4 L D, Chloride 98, Carbon Dioxide 31.9 H, Anion Gap 7.5, BUN 22, Creatinine 1.12, Est GFR ( Amer) > 60, Est GFR (Non-Af Amer) > 60, Glucose 170 H, Calcium 7.9 L 09/07/22 20:38: POC Glucose 428 H*, POC Glucose Comment Cleaned meter 09/07/22 16:24: POC Glucose 277, POC Glucose Comment Glu2: cleaned meter 09/07/22 11:22: POC Glucose 355 09/07/22 07:10: Corrected WBC 13.0 H, Uncorrected WBC Count 13.0 H, RBC 4.19, Hgb 12.6 L, Hct 38.6 L, MCV 92.1, MCH 30.2, MCHC 32.7, RDW 13.9, Plt Count 227, MPV 8.3, Neut % (Auto) 91.6, Lymph % (Auto) 3.6, [place] % (Auto) 4.5, Eos % (Auto)0.0, Baso % (Auto) 0.3, Nucleat RBC Rel Count 0.0, Neut # (Auto) 11.9 H, Lymph #(Auto) 0.5 L, [place] # (Auto) 0.6, Eos # (Auto) 0.0, Baso # (Auto) 0.0, Platelet Estimate Normal, Plt Morphology Comment Normal, RBC Morphology Normal Exam Physical Exam Vital Signs: Temp Pulse Resp BP Pulse Ox O2 Del Method O2 Flow Rate 97.7 F 88 16 139/77 94 L Nasal Cannula 2 09/08/22 08:00 09/08/22 08:00 09/08/22 08:00 09/08/22 08:00 09/08/22 08:00 09/08/22 08:00 09/08/22 08:00 Narrative: [pt is awake and alert. oriented to place and person but not to the exact date and location. Morbidly obese. No Respiratory distress at rest or with minimal exertion. HEENT: [place] conjunctiva and NL buccal mucosa Neck: Supple, no tenderness Endocrine: No Thyromegaly. Vascular: No JVD or carotid bruit. Lymphatic: No cervical lymphadenopathy. Chest: Almost complete resolution of the bilateral rhonchi and wheezing Heart RRR, no extra sound or murmur. Abd: Soft, no tenderness, no rebound and no rigidity. Increase abd girth therefore clinically I could not exclude the possibility of intra abd mass or organomegaly. LE: No cyanosis or clubbing, no varices or edema. Neuro: Awake and oriented to place and person but not to the exact date and location. Symmetrical motor and tone. Moderate functional loss. Patient is able to change his position in bed and sit up. Patient is able to ambulate with support and supervision []] Discharge Plan Discharge Plan Patient Disposition: Sn[facility] Facility Additional Instructions: I may not have addressed or treated all of your medical illnesses or the abnormal blood work or imaging studies during this hospitalization. Please ask your primary care provider to obtain [facility] records entirely to follow up on all of the abnormal physical, laboratory, and imaging findings that I have not addressed. At the rehab facility Please do CBC and BMP every Saturday and for 2 weeks then every Saturday Please arrange for patient to have repeat CAT scan of the chest in 6 weeks to ensure complete resolution of abnormalities seen on current CAT scan done at [facility]. Please collaborate with his primary care doctor to arrange for that. Please monitor his voiding pattern, frequency and the residual Fall precautions. Titrate oxygen to keep saturation above 92% Please evaluate for possible need of home oxygen within 24 hours of discharge back home Titrate insulin to keep his blood sugar between 1 20-180. Please arrange for patient to follow-up with PCP, pulmonary and cardiology as instructed prior to discharge from home. Please arrange for patient to have a repeat UA in 2 weeks to ensure complete resolution of his hematuria. If his hematuria persists I would recommend that you refer him to see urology. Please return back to the emergency room or seek medical attention if your symptoms worsen or return. Discharging you from [facility] does not mean that your medical care ends here and now. You may still need additional monitoring, work up, investigation, and treatment plan to be handled from this point on by out patient providers including your primary care provider and specialists. For any medication question, please contact your retail pharmacist or your primary care provider. Thank you. Stand Alone Forms: Insulin Corrective Scale #3 Prescriptions: New acetaminophen 325 mg Tablet 650 mg PO Q6HR PRN (Reason: Pain Scale 1 - 3 or fever) Qty: 0 0RF dextrose [Glutose-15] 40 % Gel 0.6 g PO PRN PRN (Reason: Hypoglycemia) Qty: 0 0RF amlodipine 10 mg Tablet 10 mg PO DAILY Qty: 0 0RF doxycycline hyclate 100 mg Tablet 100 mg PO Q12H 5 Days Qty: 10 0RF insulin aspart U-100 [Novolog Flexpen U-100 Insulin] 100 unit/mL (3 mL) Insulin Pen 1 sliding scale dose subcut TID.WM.HS Qty: 0 0RF guaifenesin [Mucinex] 600 mg Tablet Extended Release 12hr 600 mg PO BID PRN (Reason: cough) Qty: 0 0RF ipratropium-albuterol 0.5 mg-3 mg(2.5 mg base)/3 mL Solution For Nebulization 3 ml inhalation TID PRN (Reason: wheezing) Qty: 0 0RF lisinopril 10 mg Tablet 10 mg PO DAILY Qty: 0 0RF Probiotic 3 billion cell capsule 3,000 mmu cells PO DAILY Qty: 20 0RF Rx Instructions: administer with a meal amoxicillin-pot clavulanate 875-125 mg tablet 1 tab PO BID 7 Days Qty: 14 0RF prednisone 10 mg tablet 10 mg PO DIRECTED Qty: 18 0RF Rx Instructions: Take 1 tablet twice a day for 5 days then 1 tablet daily for 5 days then half a tablet daily torsemide 10 mg tablet 10 mg PO DAILY Qty: 30 0RF potassium chloride 15 mEq tablet,ER particles/crystals 15 meq PO DAILY Qty: 30 0RF insulin aspart U-100 [Novolog Flexpen U-100 Insulin] 100 unit/mL (3 mL) Insulin Pen 5 units subcut TID.AC Qty: 0 0RF insulin glargine [Lantus Solostar U-100 Insulin] 100 unit/mL (3 mL) Insulin Pen 15 units subcut DAILY Qty: 0 0RF budesonide-formoterol [Symbicort] 160-4.5 mcg/actuation HFA aerosol inhaler 1 inh inhalation BID Qty: 10.2 0RF Spiriva with HandiHaler 18 mcg capsule, w/inhalation device 1 cap inhalation DAILY Qty: 30 0RF Rx Instructions: puncture 1 cap using device; one dose = 2 inhalations Continued oxybutynin chloride 10 mg tablet extended release 24hr 10 mg PO DAILY Patient Comments: TAKE 1 TABLET BY MOUTH EVERY DAY tamsulosin 0.4 mg capsule 0.4 mg PO DAILY Patient Comments: TAKE 1 CAPSULE BY MOUTH EVERY DAY IN THE EVENING metformin 1,000 mg tablet 1,000 mg PO BID aspirin 81 mg Tablet 81 mg PO DAILY cholecalciferol (vitamin D3) 10 mcg (400 unit) Tablet 10 mcg PO DAILY Discontinued lisinopril 20 mg Tablet 20 mg PO DAILY celecoxib 100 mg Capsule 100 mg PO BID oxybutynin chloride 5 mg Tablet 5 mg PO HS fluticasone propionate [Flonase] 50 mcg/actuation [place],Suspension 1 spray INTRANASAL DAILY PRN (Reason: Congestion) hydrochlorothiazide 12.5 mg tablet 12.5 mg PO DAILY Follow Up: Liz Morales MD [Active Staff] - (Suspect underlying CAD) Vince Welsh MD [Active Staff] - (COPD. Abnormal CT of the chest) Erich Key DO [Primary Care Provider] - (Follow-up with your Primary Care Provider after discharge from Rehab) Documented By: Randolph Velasquez MD 09/08/22922 Signed By: <Electronically signed by Randolph Velasquez MD> 09/08/22930 [facility] Work Phone: [phone] 249-757601-06-2023 Progress note Author Randolph Velasquez [facility] September 07, 2022 9:02am Note Date/Time September 07, 2022 9: 02am [facility] [address] [place] [address] Hospitalist Progress Note Signed Patient: Jose L Mauricio MR#: [id number] : 1940 Acct:[id number] Age/Sex: 81 / M Adm Date: 3 Loc: Room: [address] [place] [address] Type: ADM IN Attending Dr: Randolph Velasquez MD Copies to: ~ Date of Service: 09/07/2022 Subjective Subjective Narrative: Patient continues to improve gradually. Less cough and congestion. Less shortness of breath. Improved strength and stamina. Uneventful night otherwise. Exam Physical Exam Vital Signs: Temp Pulse Resp BP Pulse Ox O2 Del Method O2 Flow Rate 98.0 F 95 H 16 151/72 H 93 L Nasal Cannula 3 09/07/22 03:14 09/07/22 08:13 09/07/22 08:13 09/07/22 03:14 09/07/22 03:14 09/07/22 08:09 09/07/22 08:09 Narrative: [pt is awake and alert. oriented to place and person but not to the exact date and location. Morbidly obese. No Respiratory distress at rest. Mild respiratory distress with minimal exertion such as changing position and is sitting up in bed HEENT: [place] conjunctiva and NL buccal mucosa Neck: Supple, no tenderness Endocrine: No Thyromegaly. Vascular: No JVD or carotid bruit. Lymphatic: No cervical lymphadenopathy. Chest: Noticeable improvement of the bilateral rhonchi and wheezing Heart RRR, no extra sound or murmur. Abd: Soft, no tenderness, no rebound and no rigidity. Increase abd girth therefore clinically I could not exclude the possibility of intra abd mass or organomegaly. LE: No cyanosis or clubbing, no varices or edema. Neuro: Awake and oriented to place and person but not to the exact date and location. Symmetrical motor and tone. Moderate functional loss. Patient is able to change his position in bed and sit up. Patient is able to ambulate with support and supervision []] Objective Lab Results 09/07/22 07:10 09/07/22 07:10 Microbiology Results Microbiology 09/06/22 06:30 Sputum - Expectorated Gram Stain - Final Meds Allergies and Active Meds Allergies SHRUTI Inhibitors Allergy (Mild, Verified 09/04/22 23:10) Cough Active Meds: Active Medications Generic Name Dose Route Start Last Admin Trade Name Freq PRN Reason Stop Dose Admin Acetaminophen 650 mg 09/04/22 22:57 Acetaminophen 325 Mg Tablet PO 09/04/23 22:56 Q6HR PRN Pain Scale 1 - 3 or fever Albuterol 2.5 mg 09/05/22 09:40 Albuterol Neb 2.5 Mg/3 Ml Vial.Neb INHALATION 09/05/23 09:39 Q3H PRN Shortness Of Breath Albuterol/Ipratropium 3 ml 09/05/22 14:00 09/07/22 08:14 Ipratropium/Albuterol 0.5-3 Mg 3 Ml Ampul.Neb INHALATION 09/05/23 13:59 3 ml TID SHARI Administration Amlodipine Besylate 10 mg 09/07/22 10:00 Amlodipine 10 Mg Tablet PO 09/07/23 09:59 DAILY SHARI Aspirin 81 mg 09/05/22 09:00 09/06/22 09:21 Aspirin 81 Mg Tablet.Dr PO 09/05/23 08:59 81 mg DAILY SHARI Administration Dextrose 0 gm 09/05/22 09:39 Dextrose 20 % In Water 10 Gm/50 Ml Syringe IV-PUSH 09/05/23 09:38 PRN PRN Hypoglycemia Doxycycline Hyclate 100 mg 09/07/22 10:00 Doxycycline Hyclate 100 Mg Tablet PO Q12H SHARI Enoxaparin Sodium 40 mg 09/05/22 10:00 09/06/22 09:25 Enoxaparin 40 Mg/0.4 Ml Syringe SUBCUT 09/05/23 09:59 40 mg DAILY@1000 SHARI Administration Fluticasone Propionate 1 spray 09/04/22 23:34 Fluticasone Propionate [place] 120 [place]/16 Gm Bottle INTRANASAL 09/04/23 23:33 DAILY PRN Congestion Furosemide 40 mg 09/07/22 08:00 Furosemide 40 Mg Tablet PO 09/07/23 07:59 DAILY.8A SHARI Glucose 0 gm 09/05/22 09:37 Dextrose 40% Gel 15 Gm Tube PO 09/05/23 09:36 PRN PRN Hypoglycemia Guaifenesin 600 mg 09/05/22 10:00 09/06/22 21:36 Guaifenesin 600 Mg Tab.Er.12h PO 09/05/23 09:59 600 mg BID SHARI Administration Hydralazine HCl 10 mg 09/05/22 11:47 Hydralazine 20 Mg/Ml Vial IV-PUSH 09/05/23 11:46 Q4H PRN Blood Pressure - High Ampicillin Sodium/Sulbactam Sodium 3 gm in 100 mls @ 200 mls/hr 09/05/22 02:30 09/07/22 05:07 Unasyn IV 200 mls/hr Q6H SHARI Administration Insulin Aspart 0 units 09/05/22 10:00 09/06/22 22:59 Insulin Aspart 300 Units/3 Ml Insuln.Pen SUBCUT 09/05/23 09:59 14 units TID.WM.HS SHARI Administration Protocol Insulin Aspart 5 units 09/06/22 11:30 09/06/22 17:15 Insulin Aspart 300 Units/3 Ml Insuln.Pen SUBCUT 09/06/23 11:29 5 units TID.AC SHARI Administration Lisinopril 10 mg 09/06/22 09:30 09/06/22 10:32 Lisinopril 10 Mg Tablet PO 09/06/23 09:29 10 mg DAILY SHARI Administration Methylprednisolone Sodium Succinate 40 mg 09/06/22 21:00 09/06/22 21:36 Methylprednisolone Sod Succ/Pf 40 Mg/Ml (1ml) Vial IV-PUSH 09/06/23 20:59 40 mg Q12H SHARI Administration Nystatin 200,000 unit 09/04/22 23:40 09/06/22 21:36 Nystatin Susp 500,000 Unit/5 Ml Udc PO 09/04/23 23:39 200,000 unit QID SHARI Administration Sodium Chloride 0 ml 09/05/22 06:00 09/07/22 05:10 Sodium Chloride 0.9 % 10 Ml Syringe IV-PUSH 09/05/23 05:59 10 ml QSHIFT SHARI Administration Tamsulosin HCl 0.4 mg 09/05/22 21:00 09/06/22 21:37 Tamsulosin 0.4 Mg Cap.Er.24h PO 09/05/23 20:59 0.4 mg QPM SHARI Administration A&P - Hospitalist Assessment/Plan (1) Acute respiratory failure with hypoxia: (2) Community acquired pneumonia: (3) Type 2 diabetes mellitus: (4) Hypertension: (5) Elevated troponin: (6) Multifactorial functional impairment: Plan Acute hypoxic respiratory failure 2/2 community-acquired pneumonia Severe sepsis secondary to community-acquired pneumonia I believe that patient also has COPD exacerbation. He continues to smoke. He has been a smoker for 50 years. I suspect that the patient has chronic hypoxic respiratory failure. He is not on oxygen at home but likely will qualify for oxygen Much improvement over the last 24 hours. We called [facility] to inquire about the blood culture. Blood culture from [facility] showed no growth thus far. Swallow evaluation did not reveal any aspiration risk. Continue antibiotic. Continue Solu-Medrol. Continue albuterol and Atrovent Pulmonary edema?, mild diastolic acute on chronic heart failure. Echocardiogram showed normal ejection fraction ? Lasix x ? Lewis catheter?accurate I&O -Requested echo. Keep patient in a euvolemic state, preferably on dry and dry side. Continue Lasix 40 mg p.o. daily. Elevated troponin ? Trend troponins. Flat elevation. Doubt ACS. Requested EKG -Normal ejection fraction. I suspect that the patient could have underlying CAD. I would recommend CAD evaluation electively once his respiratory issues have resolved. Could be done in the outpatient setting to be arranged by PCP Tobacco addiction. Counseling about the need to stop smoking. Patient has been a smoker for 50 years he used to smoke heavily in the past. Now he smokes few cigarettes daily Chronic conditions T2DM?fingersticks AC at bedtime, sliding scale insulin coverage. Poor control. Increased the sliding scale dose as well as the long-acting insulin dose. I added meal insulin as per HTN?monitor, better controlled. Continue amlodipine and lisinopril. BPH?tamsulosin ANGIE, resolved. Resume lisinopril at small dose, increased dose of amlodipine DVT PPx ? Heparin, SCDs CODE STATUS ? DNR CCA without intubation as discussed with patient Functional impairment. Patient may qualify to go to a skilled care for short period of time I had discussed his case with his and the son on 09/05 and on 09/06. I provided information about his disease, prognosis, expectation and trajectory. I answered all of her questions. Continue current treatment plan. Expect discharge to skilled care tomorrow. Documented By: Randolph Velasquez MD 09/07/22 0857 Signed By: <Electronically signed by Randolph Velasquez MD> 09/07/22 0902 [facility] Work Phone: [phone] Progress note Author Randolph Velasquez [facility] September 06, 2022 9:15am Note Date/Time September 06, 2022 9: 15am [facility] [address] [place] [address] Hospitalist Progress Note Signed Patient: Jose L Mauricio MR#: [id number] : 1940 Acct:[id number] Age/Sex: 81 / M Adm Date: 3 Loc: 4P Room: 0D8448-0 Type: ADM IN Attending Dr: Randolph Velasquez MD Copies to: ~ Date of Service: 09/06/2022 Subjective Subjective Narrative: Patient is somewhat better. Maybe about 25% better. Less cough and congestion. Less tachypnea. No chest pain or palpitation. No abdominal pain, nausea or vomiting Exam Physical Exam Vital Signs: Temp Pulse Resp BP Pulse Ox O2 Del Method O2 Flow Rate 97.8 F 108 H 16 172/91 H 91 L Nasal Cannula 3 09/06/22 07:35 09/06/22 09:05 09/06/22 09:05 09/06/22 07:35 09/06/22 09:05 09/06/22 09:05 09/06/22 09:05 Narrative: [pt is awake and alert. oriented to place and person but not to the exact date and location. Morbidly obese. No Respiratory distress at rest. Mild respiratory distress with minimal exertion such as changing position and is sitting up in bed HEENT: [place] conjunctiva and NL buccal mucosa Neck: Supple, no tenderness Endocrine: No Thyromegaly. Vascular: No JVD or carotid bruit. Lymphatic: No cervical lymphadenopathy. Chest: Bilateral rhonchi and wheezing noted persistent since yesterday. Heart RRR, no extra sound or murmur. Abd: Soft, no tenderness, no rebound and no rigidity. Increase abd girth therefore clinically I could not exclude the possibility of intra abd mass or organomegaly. LE: No cyanosis or clubbing, no varices or edema. Neuro: Awake and oriented to place and person but not to the exact date and location. Symmetrical motor and tone. Moderate functional loss. Patient needed the my support to sit up from laying position. []] Objective Lab Results 09/05/22 05:22 09/05/22 05:22 Meds Allergies and Active Meds Allergies SHRUTI Inhibitors Allergy (Mild, Verified 09/04/22 23:10) Cough Active Meds: Active Medications Generic Name Dose Route Start Last Admin Trade Name Freq PRN Reason Stop Dose Admin Acetaminophen 650 mg 09/04/22 22:57 Acetaminophen 325 Mg Tablet PO 09/04/23 22:56 Q6HR PRN Pain Scale 1 - 3 or fever Albuterol 2.5 mg 09/05/22 09:40 Albuterol Neb 2.5 Mg/3 Ml Vial.Neb INHALATION 09/05/23 09:39 Q3H PRN Shortness Of Breath Albuterol/Ipratropium 3 ml 09/05/22 14:00 09/06/22 09:05 Ipratropium/Albuterol 0.5-3 Mg 3 Ml Ampul.Neb INHALATION 09/05/23 13:59 3 ml TID SHARI Administration Amlodipine Besylate 5 mg 09/06/22 09:15 Amlodipine 5 Mg Tablet PO 09/06/23 09:14 BID SHARI Aspirin 81 mg 09/05/22 09:00 09/05/22 09:50 Aspirin 81 Mg Tablet.Dr PO 09/05/23 08:59 81 mg DAILY SHARI Administration Dextrose 0 gm 09/05/22 09:39 Dextrose 20 % In Water 10 Gm/50 Ml Syringe IV-PUSH 09/05/23 09:38 PRN PRN Hypoglycemia Enoxaparin Sodium 40 mg 09/05/22 10:00 09/05/22 10:16 Enoxaparin 40 Mg/0.4 Ml Syringe SUBCUT 09/05/23 09:59 40 mg DAILY@1000 SHARI Administration Fluticasone Propionate 1 spray 09/04/22 23:34 Fluticasone Propionate [place] 120 [place]/16 Gm Bottle INTRANASAL 09/04/23 23:33 DAILY PRN Congestion Furosemide 40 mg 09/05/22 10:00 09/05/22 09:52 Furosemide 40 Mg/4 Ml Vial IV-PUSH 09/05/23 09:59 40 mg DAILY.8A SHARI Administration Glucose 0 gm 09/05/22 09:37 Dextrose 40% Gel 15 Gm Tube PO 09/05/23 09:36 PRN PRN Hypoglycemia Guaifenesin 600 mg 09/05/22 10:00 09/05/22 21:19 Guaifenesin 600 Mg Tab.Er.12h PO 09/05/23 09:59 600 mg BID SHARI Administration Hydralazine HCl 10 mg 09/05/22 11:47 Hydralazine 20 Mg/Ml Vial IV-PUSH 09/05/23 11:46 Q4H PRN Blood Pressure - High Ampicillin Sodium/Sulbactam Sodium 3 gm in 100 mls @ 200 mls/hr 09/05/22 02:30 09/06/22 04:11 Unasyn IV 200 mls/hr Q6H SHARI Administration Doxycycline Hyclate 100 mg in 100 mls @ 100 mls/hr 09/05/22 10:00 09/05/22 23:17 Doxy 100 IV Infused Q12H SHARI Infusion Insulin Aspart 0 units 09/05/22 10:00 09/06/22 07:40 Insulin Aspart 300 Units/3 Ml Insuln.Pen SUBCUT 09/05/23 09:59 12 units TID.WM.HS SHARI Administration Protocol Insulin Aspart 5 units 09/06/22 11:30 Insulin Aspart 300 Units/3 Ml Insuln.Pen SUBCUT 09/06/23 11:29 TID.AC SHARI Insulin Glargine 25 units 09/06/22 09:10 Insulin Glargine 300 Units/3 Ml Insuln.Pen SUBCUT 09/06/23 09:09 DAILY SHARI Methylprednisolone Sodium Succinate 40 mg 09/05/22 14:00 09/06/22 06:15 Methylprednisolone Sod Succ/Pf 40 Mg/Ml (1ml) Vial IV-PUSH 09/05/23 13:59 40 mg Q8HR SHARI Administration Nystatin 200,000 unit 09/04/22 23:40 09/05/22 21:20 Nystatin Susp 500,000 Unit/5 Ml Udc PO 09/04/23 23:39 200,000 unit QID SHARI Administration Sodium Chloride 0 ml 09/05/22 06:00 09/06/22 06:15 Sodium Chloride 0.9 % 10 Ml Syringe IV-PUSH 09/05/23 05:59 10 ml QSHIFT SHARI Administration Tamsulosin HCl 0.4 mg 09/05/22 21:00 09/05/22 21:19 Tamsulosin 0.4 Mg Cap.Er.24h PO 09/05/23 20:59 0.4 mg QPM SHARI Administration A&P - Hospitalist Assessment/Plan (1) Acute respiratory failure with hypoxia: (2) Community acquired pneumonia: (3) Type 2 diabetes mellitus: (4) Hypertension: (5) Elevated troponin: Plan Acute hypoxic respiratory failure 2/2 community-acquired pneumonia Severe sepsis secondary to community-acquired pneumonia I believe that patient also has COPD exacerbation. He continues to smoke. He has been a smoker for 50 years. I suspect that the patient has chronic hypoxic respiratory failure. He is not on oxygen at home but likely will qualify for oxygen Swallow evaluation did not reveal any aspiration risk. Continue antibiotic. Continue Solu-Medrol. Continue albuterol and Atrovent Pulmonary edema?, mild diastolic acute on chronic heart failure. Echocardiogram showed normal ejection fraction ? Lasix x ? Lewis catheter?accurate I&O -Requested echo. Keep patient in a euvolemic state, preferably on dry and dry side Elevated troponin ? Trend troponins. Flat elevation. Doubt ACS. Requested EKG -Normal ejection fraction. I suspect that the patient could have underlying CAD. I would recommend CAD evaluation electively once his respiratory issues have resolved. Could be done in the outpatient setting to be arranged by PCP Oral Thrush - Nystatin suspension Tobacco addiction. Counseling about the need to stop smoking. Patient has been a smoker for 50 years he used to smoke heavily in the past. Now he smokes few cigarettes daily Chronic conditions T2DM?fingersticks AC at bedtime, sliding scale insulin coverage. Poor control. Increase the sliding scale dose as well as the long-acting insulin dose. I added meal insulin as per HTN?monitor, hold lisinopril and HCTZ for now BPH?tamsulosin ANGIE, resolved. Resume lisinopril at small dose, increased dose of amlodipine DVT PPx ? Heparin, SCDs CODE STATUS ? DNR CCA without intubation as discussed with patient Functional impairment. Patient may qualify to go to a skilled care for short period of time I had discussed his case with his and the son on 09/05/2022. I provided information about his disease, prognosis, expectation and trajectory. Answered all of her questions Documented By: Randolph Velasquez MD 09/06/2211 Signed By: <Electronically signed by Randolph Velasquez MD> 09/06/2215 [facility] Work Phone: [phone] 615-246201-04-2023 Progress note Author Randolph Velasquez [facility] September 05, 2022 9:46am Note Date/Time September 05, 2022 9: 46am [facility] [address] [place] [address] Hospitalist Progress Note Signed Patient: Jose L Mauricio MR#: [id number] : 1940 Acct:[id number] Age/Sex: 81 / M Adm Date: 3 Loc: Room: [address] [place] [address] Type: ADM IN Attending Dr: Randolph Velasquez MD Copies to: ~ Date of Service: 09/05/2022 Subjective Subjective Narrative: I saw patient this morning. Is coughing throughout. Audible rhonchi noted. Heis awake. He has cognitive loss. Is able to answer questions. He denies any headaches. No chest pain. No abdominal pain. No nausea or vomiting. Exam Physical Exam Vital Signs: Temp Pulse Resp BP Pulse Ox O2 Del Method O2 Flow Rate 98.3 F 110 H 20 165/80 H 95 Nasal Cannula 6 09/05/22 04:00 09/05/22 04:00 09/05/22 04:00 09/05/22 04:00 09/05/22 04:00 09/05/22 08:19 09/05/22 08:19 Narrative: [pt is awake and alert. oriented to place and person but not to the exact date and location. Morbidly obese. Mild respiratory distress. Respiratory it is about 20 patient is on oxygen. Morbidly obese HEENT: [place] conjunctiva and NL buccal mucosa Neck: Supple, no tenderness Endocrine: No Thyromegaly. Vascular: No JVD or carotid bruit. Lymphatic: No cervical lymphadenopathy. Chest: Bilateral rhonchi and wheezing noted Heart RRR, no extra sound or murmur. Abd: Soft, no tenderness, no rebound and no rigidity. Increase abd girth therefore clinically I could not exclude the possibility of intra abd mass or organomegaly. LE: No cyanosis or clubbing, no varices or edema. Neuro: Awake and oriented to place and person but not to the exact date and location. Symmetrical motor and tone. Moderate functional loss. Patient needed the my support to sit up from laying position. []] Objective Lab Results 09/05/22 05:22 09/05/22 05:22 Meds Allergies and Active Meds Allergies SHRUTI Inhibitors Allergy (Mild, Verified 09/04/22 23:10) Cough Active Meds: Active Medications Generic Name Dose Route Start Last Admin Trade Name Freq PRN Reason Stop Dose Admin Acetaminophen 650 mg 09/04/22 22:57 Acetaminophen 325 Mg Tablet PO 09/04/23 22:56 Q6HR PRN Pain Scale 1 - 3 or fever Albuterol 2.5 mg 09/05/22 09:40 Albuterol Neb 2.5 Mg/3 Ml Vial.Neb INHALATION 09/05/23 09:39 Q3H PRN Shortness Of Breath Albuterol/Ipratropium 3 ml 09/05/22 14:00 Ipratropium/Albuterol 0.5-3 Mg 3 Ml Ampul.Neb INHALATION 09/05/23 13:59 TID SHARI Aspirin 81 mg 09/05/22 09:00 Aspirin 81 Mg Tablet. PO 09/05/23 08:59 DAILY [facility] Dextrose 0 gm 09/05/22 09:39 Dextrose 20 % In Water 10 Gm/50 Ml Syringe IV-PUSH 09/05/23 09:38 PRN PRN Hypoglycemia Enoxaparin Sodium 40 mg 09/05/22 10:00 Enoxaparin 40 Mg/0.4 Ml Syringe SUBCUT 09/05/23 09:59 DAILY@1000 [facility] Fluticasone Propionate 1 spray 09/04/22 23:34 Fluticasone Propionate [place] 120 [place]/16 Gm Bottle INTRANASAL 09/04/23 23:33 DAILY PRN Congestion Furosemide 40 mg 09/05/22 08:00 Furosemide 40 Mg/4 Ml Vial IV-PUSH 09/05/23 07:59 BID@0800,1600 [facility] Glucose 0 gm 09/05/22 09:37 Dextrose 40% Gel 15 Gm Tube PO 09/05/23 09:36 PRN PRN Hypoglycemia Guaifenesin 600 mg 09/05/22 21:00 Guaifenesin 600 Mg Tab.Er.12h PO 09/05/23 20:59 BID [facility] Ampicillin Sodium/Sulbactam Sodium 3 gm in 100 mls @ 200 mls/hr 09/05/22 02:30 09/05/22 03:58 Unasyn IV 200 mls/hr Q6H [facility] Administration Doxycycline Hyclate 100 mg in 100 mls @ 100 mls/hr 09/05/22 10:00 Doxy 100 IV Q12H [facility] Insulin Aspart 0 units 09/05/22 12:00 Insulin Aspart 300 Units/3 Ml Insuln.Pen SUBCUT 09/05/23 11:59 TID.WM.HS [facility] Protocol Insulin Glargine 15 units 09/05/22 09:45 Insulin Glargine 300 Units/3 Ml Insuln.Pen SUBCUT 09/05/23 09:44 DAILY [facility] Methylprednisolone Sodium Succinate 40 mg 09/05/22 14:00 Methylprednisolone Sod Succ/Pf 40 Mg/Ml (1ml) Vial IV-PUSH 09/05/23 13:59 Q8HR SHARI Nystatin 200,000 unit 09/04/22 23:40 09/05/22 00:34 Nystatin Susp 500,000 Unit/5 Ml Udc PO 09/04/23 23:39 200,000 unit QID SHARI Administration Sodium Chloride 0 ml 09/05/22 06:00 09/05/22 07:23 Sodium Chloride 0.9 % 10 Ml Syringe IV-PUSH 09/05/23 05:59 10 ml QSHIFT SHARI Administration Tamsulosin HCl 0.4 mg 09/05/22 21:00 Tamsulosin 0.4 Mg Cap.Er.24h PO 09/05/23 20:59 QPM [facility] A&P - Hospitalist Assessment/Plan (1) Acute respiratory failure with hypoxia: (2) Community acquired pneumonia: (3) Type 2 diabetes mellitus: (4) Hypertension: (5) Elevated troponin: Plan Acute hypoxic respiratory failure 2/2 community-acquired pneumonia Severe sepsis secondary to community-acquired pneumonia I believe that patient also has COPD exacerbation. He continues to smoke. He has been a smoker for 50 years. I suspect that the patient has chronic hypoxic respiratory failure. He is not on oxygen at home but likely will qualify for oxygen ? Telemetry ? Oxygen as needed, keep SPO2 greater than 90%?currently on 6 L nasal cannula ? Unasyn, added doxycycline to cover atypical organism -Repeat chest x-ray today ? Recheck lactate, CBC, BMP ? CBC, BMP in a.m. ? Blood cultures were obtained at the [facility] -Counseling about tobacco addiction and the need to stop. -Consider CAT scan of the chest. Pulmonary edema?recheck BNP ? Lasix x 1 now ? Lewis catheter?accurate I&O -Requested echo. Keep patient in a euvolemic state, preferably on dry and dry side Elevated troponin ? Trend troponins. Flat elevation. Doubt ACS. Requested EKG ? Echocardiogram Oral Thrush - Nystatin suspension Chronic conditions T2DM?fingersticks AC at bedtime, sliding scale insulin coverage. I had a long acting insulin HTN?monitor, hold lisinopril and HCTZ for now BPH?tamsulosin ANGIE, resolved. Resume lisinopril at small dose DVT PPx ? Heparin, SCDs CODE STATUS ? DNR CCA without intubation as discussed with patient Attending Physician Attestation: I personally reviewed the history, performed the bennett elements of the exam, formulated the plan of care and confirmed the written note. I agree with the findings and plan as documented in this note and have edited it if needed to reflect my findings and plan. Patient was transferred from [facility]. Initial working diagnosis: -Sepsis secondary to community-acquired pneumonia: Started IV antibiotics. Blood cultures were collected at [facility]. Follow-up and de-escalate accordingly. -Acute hypoxic respiratory failure secondary to pneumonia: Requiring oxygen. Wean off as tolerated -Suspect new onset CHF given elevated BNP, chest x-ray with bilateral vascular congestion, leg edema on exam. Given Lasix. Check echocardiogram Javier Jerry MD Documented By: Randolph Velasquez MD 09/05/22 0942 Signed By: <Electronically signed by Randolph Velasquez MD> 09/05/22 0946 [facility] Work Phone: [phone] History and physical note Author Javier Murray [facility] September 05, 2022 1:03am Note Date/Time September 04, 2022 11 :14pm [facility] [address] [place], [place] [address] Hospitalist H&P Signed Patient: Jose L Mauricio MR#: [id number] : 1940 Acct:[id number] Age/Sex: 81 / M Adm Date: 3 Loc: Room: [address] [place] [address] Type: ADM IN Attending Dr: Clyde Wright DO Copies to: DO Javier Delatorre MD Paula G Smith, APRN Shawn J Warner, ~ HPI DATE OF EXAMINATION: 09/04/22 CHIEF COMPLAINT: shortness of breath, cough, fever, chills HISTORY OF PRESENT ILLNESS: Mr. Mauricio is an 81-year-old male with a PMH of T2DM, HTN, BPH that was transferred from the [facility] for elevated troponin, shortness of breath, with increasing weakness and confusion at home. Seen and evaluated at bedside. He had removed his oxygen and was wrapped around his neck. Oxygen reapplied, 6 L nasal cannula. He is alert and oriented to time, place, and self. However his conversation seems to wander, slight confusion. He reports fever, chills at home over the past few days. Shortness of breath has worsened over the past few days as well, harsh, moist, nonproductive cough. He also reports chest pain with palpation. Patient arrived to the [facility] emergency room with a pulse ox of 80% on room air. Family reported fever with cough and shortness of breath, generalized weakness and increasing confusion over the last week. Nasal swab was negative for influenza and COVID. CBC white blood cell count 11.3. Lactateis 4, NT proBNP is 1464, troponin high-sensitivity is 180.9. CMP with a glucoseof 396, BUN 26, creatinine 1.45, liver enzymes elevated ALT 98, AST 57, ALP 163. Chest x-ray shows questionable interstitial pulmonary edema suspected. Some underlying inflammatory or infectious pneumonitis cannot be excluded, borderlineheart size. Patient received Zosyn 3.375, 500 cc normal saline bolus, and 5 units of regular insulin. Repeat blood glucose was 352. Review of Systems Review of Systems Review of systems: A 10 point review of systems was obtained, negative unless noted in the HPI or below. [facility] Social History Smoking Status: Former smoker Substance Use Type: None Meds Medications and Allergies Allergies SHRUTI Inhibitors Allergy (Mild, Verified 09/04/22 23:10) Cough Home Medications aspirin 81 mg tablet 81 mg PO DAILY 09/04/22 [History Confirmed 09/04/22] celecoxib 100 mg capsule 100 mg PO BID 09/04/22 [History Confirmed 09/04/22] cholecalciferol (vitamin D3) 10 mcg (400 unit) tablet 10 mcg PO DAILY 09/04/22 [History Confirmed 09/04/22] fluticasone propionate 50 mcg/actuation nasal spray,suspension 1 spray intranasal DAILY PRN Congestion 09/04/22 [History Confirmed 09/04/22] hydrochlorothiazide 12.5 mg tablet 12.5 mg PO DAILY 09/04/22 [History Confirmed 09/04/22] lisinopril 20 mg tablet 20 mg PO DAILY 09/04/22 [History Confirmed 09/04/22] metformin 1,000 mg tablet 1,000 mg PO BID 09/04/22 [History Confirmed 09/04/22] oxybutynin chloride 10 mg tablet,extended release 24 hr 10 mg PO DAILY 09/04/22 [History Confirmed 09/04/22] oxybutynin chloride 5 mg tablet 5 mg PO HS 09/04/22 [History Confirmed 09/04/22] tamsulosin 0.4 mg capsule 0.4 mg PO DAILY 09/04/22 [History Confirmed 09/04/22] Exam Physical Exam Vital Signs: Temp Pulse Resp BP Pulse Ox O2 Del Method O2 Flow Rate 98.3 F 102 H 18 163/79 H 92 L Nasal Cannula 6 09/04/22 21:11 09/04/22 21:11 09/04/22 21:11 09/04/22 21:11 09/04/22 21:11 09/04/22 21:24 09/04/22 21:24 Narrative: CONST- Appears well -developed and well nourished. HEAD - Normocephalic and atraumatic EENT-Sclera nonicteric, conjunctive are non-erythemic, moist oral mucosa-tongue white, pharynx clear NECK-Supple, no cervical lymphadenopathy CARDIAC-tachycardic, regular rhythm, S1 & S2. PULM-bibasilar crackles, exp wheeze, 6L NC, no accessory muscle use, moist, nonpoductive cough ABD - Soft. Bowel sounds are normal. No distention. No tenderness EXTREM- +2 edema BLE calves, nontender SKIN- W/D good turgor, abrasion to R elbow, band aid to L wrist MS- MAEX4 spontaneously with equal with equal strength NEURO- A&Ox3 speech clear and tongue midline, equal facial symmetry PSYCH-Mood, affect, and behavior appropriate A&P - Hospitalist Assessment/Plan (1) Acute respiratory failure with hypoxia: (2) Community acquired pneumonia: (3) Type 2 diabetes mellitus: (4) Hypertension: (5) Elevated troponin: Plan Acute hypoxic respiratory failure 2/2 community-acquired pneumonia Severe sepsis secondary to community-acquired pneumonia ? Telemetry ? Oxygen as needed, keep SPO2 greater than 90%?currently on 6 L nasal cannula ? Unasyn ? Recheck lactate, CBC, BMP ? CBC, BMP in a.m. ? Blood cultures were obtained at the [facility] Pulmonary edema?recheck BNP ? Lasix x 1 now ? Lewis catheter?accurate I&O Elevated troponin ? Trend troponins ? Echocardiogram Oral Thrush - Nystatin suspension Chronic conditions T2DM?fingersticks AC at bedtime, sliding scale insulin coverage HTN?monitor, hold lisinopril and HCTZ for now BPH?tamsulosin DVT PPx ? Heparin, SCDs CODE STATUS ? DNR CCA without intubation as discussed with patient Attending Physician Attestation: I personally reviewed the history, performed the bennett elements of the exam, formulated the plan of care and confirmed the written note. I agree with the findings and plan as documented in this note and have edited it if needed to reflect my findings and plan. Patient was transferred from [facility]. Initial working diagnosis: -Sepsis secondary to community-acquired pneumonia: Started IV antibiotics. Blood cultures were collected at [place]. Follow-up and de-escalate accordingly. -Acute hypoxic respiratory failure secondary to pneumonia: Requiring oxygen. Wean off as tolerated -Suspect new onset CHF given elevated BNP, chest x-ray with bilateral vascular congestion, leg edema on exam. Given Lasix. Check echocardiogram Javier Jerry MD Documented By: Lakesha Haskins APRN 09/04/22 2304 Signed By: <Electronically signed by DOROTHY Haskins> 09/04/22 2344 <Electronically signed by Javier Murray MD> 09/05/22 0103 [facility] Work Phone: [phone] History of Present illness Narrative* Patient is accompanied by . * Most recently seen in December 2019 at that time because of significant lower extremity edema we had suggested that he stop the amlodipine. * Patient's complaint is fatigue. He denies any shortness of breath. He is quite ambivalent about hismedical regimen, says that he does not look at the instructions and he does not know what he takes.He then points to his to be responsible for all his medications, she has a list but the list may not be accurate because it does not the patient remains on amlodipine. * No recent laboratory data to review. * Patient says that he is under the care of multiple physicians, who prescribed multiple medications,and it is very difficult for him to keep track of them all. * Does not report any symptoms of hypoglycemia. * Very high clinical suspicion for sleep apnea, in fact patient was sleeping in his chair when I walked into the room. Apparently sleep study has been recommended, but patient would not want to proceed. He says he feels fine . * Assessment: * 1 hospital stay September 2022 with acute hypoxemic respiratory failure, treated as pneumonia, there is some concern for diastolic heart failure * 2. Elevated troponin-raising concern for underlying coronary artery disease, in patient with several risk factors * 3. Ex smoker for more than 60 years, having quit about 2 years ago. * 4. COPD * 5. Hypertension * 6. Increased BMI * 7. BPH * 8. Type 2 diabetes, insulin requiring * 9. History of open reduction and internal fixation of fracture of the left arm, history of TURP in 2015, history of colon resection * 10. Echocardiogram September 2022-LVEF 60 to 65% impaired LV relaxation/diastolic dysfunction mild concentric LVH upper septal hypertrophy/sigmoid septum grossly normal valves aortic root 4 cm TAPSE 2.6 cm LV end-systolic dimension 2.8 cm RVSP could not be estimated * 11. There is an EKG from the hospital dated 09/05/2022, that calls the rhythm to be atrial fibrillation however to my review it looks like sinus with isolated supraventricular premature beats. There isleft axis deviation, * deviation * 12. Lexiscan Myoview December 2022-normal, transient ischemic dilatation 0.91, LVEF 63%, evidence of inferior apical attenuation artifact. 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 * 14. Lower extremity edema may improve if amlodipine is discontinued. * Recommendations: * 1. At this point, in order to minimize confusion from recommendations from multiple providers, and given the inconsistency regarding medical therapy, I will see Jose L on an as-needed basis, I will defer his blood pressure management to his primary care. * If primary MD feels that patient should see me, I will be more than happy to reevaluate him. * Patient with multiple cardiac risk factors multiple comorbidities, [facility] due to pneumonia, could not exclude diastolic heart failure, and had mild elevation of troponin. * Diagnosis is elevated troponin not related to myocardial injury, but possibly related to supply demand mismatch. * Patient has chronic diastolic heart failure * Shortness of breath class III multifactorial * EKG today sinus rhythm 85 first-degree AV block NM interval 218 ms compared to EKG of 09/05/2022 heart rate has decreased. * 1 Uses cane as ambulatory aid, no falls [facility] DO Work Phone: Chief complaint Narrative - ReportedLARRY KWAKU is being seen for CAD referral S/P FT.[facility] DO Work Phone: Chief complaint Narrative - ReportedLARRY KWAKU is being seen for CAD referral S/P FT.[facility] DO Work Phone: Evaluation + Plan note No data available for this section [facility] Evaluation note* Diagnosis Onset Date Resolution Status Acute respiratory failure with hypoxia acute Community acquired pneumonia acute Elevated troponin acute Hypertension acute Multifactorial functional impairment acute Type 2 diabetes mellitus acu [facility] Work Phone: Evaluation noteNo [place] Other History general Narrative - Reported* Type Description Date Medical History 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 Medical History Left humeral fracture Medical History Suspected sleep apnea Medical History Pernicious anemia Medical History Obesity Medical History Benign prostatic hyp erplasia with lower urinary tract symptoms Medical History Cervical spondylosis Medical History Type 2 diabetes dana itus with hyperglycemia, without long-term current use of insulin Medical History Hyperlipidemia, mixed Medical History Essential hypertension Medical History Carbuncle of buttock Medical History High risk medication use Medical History Abdominal aortic ane urysm, without rupture, unspecified Medical History Chronic venous insufficiency Medical History Iron deficiency anemia due to ch ronic blood loss Medical History Fatigue Medical History Vitamin D deficiency Medical History Acute blood loss anemia Medical History Injury of radial ner ve at upper arm level, left arm, subsequent encounter Medical History Hearing loss of right ear due to cerumen impaction Medical History Unsteady Medical History Shortness of breath Medical History Malaise Medical History Frequency of urination Medical History Polyuria Medical History Cerumen in auditory canal on exa mination Medical History Occipital headache Medical History Type 2 diabetes dana itus with diabetic polyneuropathy, without long-term current use of insulin Medical History Lumbar spondylosis Medical History Diverticulosis of colon Medical History 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 Surgical History Part of colon removed Surgical History CATARACT EXTRACTION, BILATERAL 07/2021 Surgical History ORIF, HUMERUS, PROXIMAL 04/2021 Surgical History COLON RESECTION, OPEN SIGMOID 0 11/2019 Surgical History TONSILLECTOMY Surgical History COLONOSCOPY Surgical History TURP WITH CYSTOSCOPY 2014 Hospitalization History [facility] Hospitalization History SEE SURGICAL HX [facility] [employer] Other History general [facility]ative - [facility] [employer] Other History of Present illness Narrative* 82-year-old with multiple cardiac risk factors is being seen in cardiology consultation at the request of Dr. Key for evaluation of coronary artery disease. * Patient ambulates with the help of a cane, and is very careful to avoid falls. 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 * Accompanied by to the office. * All medications so far are refilled by Dr. Key. * This cardiology consultation was prompted by a hospital stay at [facility].Patient was admitted in transfer from [facility], with hypoxemia cough congestion, treated for pneumonia, CT apparently showed more diffuse changes, raising the possibility for pulmonary vascular congestion. * Reviewed extensive records and hospital chart. Reviewed Dr. Velasquez's discharge summary. * Smoker for 60 years previously heavy recently half pack per day * Flat elevation of troponin, not consistent with acute coronary syndrome or plaque rupture, however patient with high risk for having underlying coronary artery disease. Beta-blockers are being avoided because of the extent of COPD with reactive airway disease during hospital stay. * Assessment: * 1. Recent hospital stay with acute hypoxemic respiratory failure, treated as pneumonia, there is some concern for diastolic heart failure * 2. Elevated troponin-raising concern for underlying coronary artery disease, in patient with several risk factors * 3. Ex smoker for more than 60 years, having quit about 2 years ago. * 4. COPD * 5. Hypertension * 6. Increased BMI * 7. BPH * 8. Type 2 diabetes, insulin requiring * 9. History of open reduction and internal fixation of fracture of the left arm, history of TURP in 2014, history of colon resection * 10. Echocardiogram September 2022-LVEF 60 to 65% impaired LV relaxation/diastolic dysfunction mild concentric LVH upper septal hypertrophy/sigmoid septum grossly normal valves aortic root 4 cm TAPSE 2.6 cm LV end-systolic dimension 2.8 cm RVSP could not be estimated * 11. There is an EKG from the hospital dated 09/05/2022, that calls the rhythm to be atrial fibrillation however to my review it looks like sinus with isolated supraventricular premature beats. There isleft axis deviation, * Patient with multiple cardiac risk factors multiple comorbidities, [facility] hypoxemic respiratory failure due to pneumonia, could not exclude diastolic heart failure, and had mild elevation of troponin. * Diagnosis is elevated troponin not related to myocardial injury, but possibly related to supply demand mismatch. * Patient has chronic diastolic heart failure * Shortness of breath class III multifactorial * EKG today sinus rhythm 85 first-degree AV block NM interval 218 ms compared to EKG of 09/05/2022 heart rate has decreased. * Uses cane as ambulatory aid, no falls * Recommendations: * 1. In addition to ongoing risk factor modification, we will proceed with a Lexiscan Myoview. Follow-up after testing sooner if interval problems arise. * Thank you for allowing us to participate in patient's care. Please do not hesitate to call if further questions arise, * Sincerely, * Cathleen Lopez MD [facility] * I told patient that he should bring his inhalers and use them prior to his perfusion study. [facility] DO Work Phone: Hospital Discharge instructions No data available for this section [facility] Discharge instructions Additional Instructions I may not have addressed or treated all of your medical illnesses or the abnormal blood work or imaging studies during this hospitalization. Please ask your primary care provider to obtain [facility] records entirely to follow up on all of the abnormal physical, laboratory, and imaging findings that I have not addressed. At the rehab facility Please do CBC and BMP every Saturday and for 2 weeks then every Saturday Please arrange for patient to have repeat CAT scan of the chest in 6 weeks to ensure complete resolution of abnormalities seen on current CAT scan done at [facility]. Please collaborate with his primary care doctor to arrange for that. Please monitor his voiding pattern, frequency and the residual Fall precautions. Titrate oxygen to keep saturation above 92% Please evaluate for possible need of home oxygen within 24 hours of discharge back home Titrate insulin to keep his blood sugar between 1 20-180. Please arrange for patient to follow-up with PCP, pulmonary and cardiology as instructed prior to discharge from home. Please arrange for patient to have a repeat UA in 2 weeks to ensure complete resolution of his hematuria. If his hematuria persists I would recommend that you refer him to see urology. Please return back to the emergency room or seek medical attention if your symptoms worsen or return. Discharging you from [facility] does not mean that your medical care ends here and now. You may still need additional monitoring, work up, investigation, and treatment plan to be handled from this point on by out patient providers including your primary care provider and specialists. For any medication question, please contact your retail pharmacist or your primary care provider. Thank you. [facility] Rehab to manage care: - DNRCCA without intubation - PT/OT eval and treat - Routine vital signs - Mepilex border foam to coccyx for added protection. Change every 3 days and as needed. - CBC and BMP every Saturday and for 2 weeks then every Saturday - Repeat CT scan with contrast in 6 weeks - - Monitor intake and output- notify MD if unable to urinate - lewis catheter removed on 09/08/22 - Fingerstick blood sugar ACHS - sliding scale 3 as ordered - Oxygen at 2L per nasal cannula - titrate as needed to keep pox > 92% - Repeat urinalysis in 2 weeks - [facility] Work Phone: Progress note No data available for this section [facility] Chief Complaint and Reason for Visit Chief Complaint Sepsis second to pne umonia Reason for Visit Acute respiratory fa ilure with hypoxia Community acquired pneumonia Elevated troponin Hypertension Multifactorial functional impairment Type 2 diabetes mellitus Advance Directives Advance Directive Response Recorded Date/ Time Advance Directives No September 04, 2022 6:55pm Summary Purpose Family History Unknown Family Member Name Dates Details No pertinent family history: Mother, Father, Sibling(V49.89, Z78.9) Status:Active Unknown Family Member Name Dates Details No pertinent family history: Mother, Father, Sibling(V49.89, Z78.9) Status:Active Unknown Family Member Name Dates Details No pertinent family history: Mother, Father, Sibling(V49.89, Z78.9) Status:Active Unknown Family Member Name Dates Details No pertinent family history: Mother, Father, Sibling(V49.89, Z78.9) Status:Active Unknown Family Member Name Dates Details No pertinent family history: Mother, Father, Sibling(V49.89, Z78.9) Status:Active Chief Complaint JOSE L MAURICIO is being seen for a 6 month follow-up of. Additional Source Comments Patient Care team informatio n (unrecognized section and content) Team Status: Inactive Member Role Status Dates Erich Key DO Primary Care Provider Active Javier Murray MD Admit Provider Active Randolph Velasquez MD Attending Provider Active Team Status: Active Member Role Status Dates Erich Key DO Primary Care Provider Active (unrecognized sect ion and content) No Status Records FoundNo Status Records FoundNo Status Records FoundNo Status Records FoundNo Status Records FoundNo Status Records Found INFORMATION SOURCE (unrecogn ized section and content) DATE CREATED AUTHOR 10/06/2022 [facility] DATE CREATED AUTHOR AUTHOR'S ORGANIZ ATION 10/26/2022 [facility] DATE CREATED AUTHOR AUTHOR'S ORGANIZ ATION 10/26/2022 [facility] DATE CREATED AUTHOR AUTHOR'S ORGANIZ ATION [facility] DATE CREATED AUTHOR AUTHOR'S ORGANIZ ATION 03/12/2023 [facility] DATE CREATED AUTHOR AUTHOR'S ORGANIZ ATION 03/12/2023 [employer] REASON FOR VISIT (unrecogniz ed section and content) ClinicalTCT scanNo Informa tiondischargeNo Information1 month Follow up4 MONTH FOLLOW UPCT [id number] upB-12 ShotWeight/BP checkB-12 ShotRefillAWEAWENo InformationLab resultsB-12 ShotB-12 SHOT3 month Follow uplab resultsMedication Change FOR RECORDS PERTAINING TO PATIENTS WHO ARE OR HAVE BEEN ENROLLED IN A CHEMICAL DEPENDENCY/SUBSTANCEABUSE PROGRAM, SOME INFORMATION MAY BE OMITTED. This clinical summary was aggregated from multiple sources. Caution should be exercised in using it in the provision of clinical care. This summary normalizes information from multiple sources, and as a consequence, information in this document may materially change the coding, format and clinical context of patient data. In addition, data may be omitted in some cases. CLINICAL DECISIONS SHOULD BE BASED ON THE PRIMARY CLINICAL RECORDS. [email or web address] [facility]. provides no warranty or guarantee of the accuracy or completeness of information in this document.
== END 2023-10-01 20:54 | disposition home or self-care (01) ==
LOC: SLEEP 20:53
PROVIDERS: PCP Internal Medicine; Visit Provider Internal Medicine
DX: G47.33 Obstructive sleep apnea (adult) (pediatric) (principal)
CPT/HCPCS: 95810

== ENCOUNTER 2023-11-14 10:07 | Outpatient (RCR) | payer MEDICARE, BC, SELFPAY | END 2024-02-08 11:23 | disposition home or self-care (01) | LOC: PT 10:07 | PROVIDERS: PCP Internal Medicine; Visit Provider Internal Medicine | DX: R42 Dizziness and giddiness (principal); R26.81 Unsteadiness on feet; R26.89 Other abnormalities of gait and mobility; R29.3 Abnormal posture | CPT/HCPCS: 97110; 97162; 97530 ==

== ENCOUNTER 2023-12-19 14:54 | Outpatient (OUT) | payer MEDICARE, BC, SELFPAY ==
[2023-12-19 15:21] LABS: Basophils Percent Auto 0.6 % (0.2-2.0); Eosinophils Absolute Auto 0.1 10^3/uL (0.0-0.7); Eosinophils Percent Auto 1.1 % (0.9-7.0); Hematocrit 38.3 % (42.0-54.0); Hemoglobin 12.3 g/dL (14.0-18.0); Immature Granulocytes Abs Auto 0.01 10^3/uL (0.00-0.03); Immature Granulocytes Pct Auto 0.2 % (0.0-0.5); Lymphocytes Absolute Auto 1.1 10^3/uL (1.2-3.8); Mean Corpuscular HGB Conc 32.1 g/dL (29.9-35.2); Mean Corpuscular Volume 99.7 fL (80.0-94.0); Mean Platelet Volume 9.6 fL (9.5-13.5); Monocytes Absolute Auto 0.5 10^3/uL (0.3-0.8); Monocytes Percent Auto 9.2 % (1.7-12.0); Neutrophils Absolute Auto 3.7 10^3/uL (1.4-6.5); Neutrophils Percent Auto 68.9 % (43.0-75.0); Platelet Count 136 10^3/uL (150-450); Red Blood Count 3.84 10^6/uL (4.70-6.10); Red Cell Distribution Width 12.9 % (11.0-15.0); White Blood Count 5.4 10^3/uL (4.0-11.0)
[2023-12-19 15:55] LABS: Alanine Aminotransferase 36 U/L (16-63); Albumin Globulin Ratio 1.1; Albumin Level 3.4 g/dL (3.4-5.0); Alkaline Phosphatase 88 U/L (46-116); Anion Gap 12.4; Aspartate Amino Transferase 14 U/L (15-37); BUN Creatinine Ratio 13.5; Bilirubin Total 0.3 mg/dL (0.2-1.0); C Reactive Protein <0.50 mg/dL (<=0.50); Calcium 9.3 mg/dL (8.5-10.1); Carbon Dioxide 31.6 mmol/L (21.0-32.0); Chloride 102 mmol/L (98-107); Estimated GFR (African America 52 (>=60); Estimated GFR (Non-African Ame 43 (>=60); Globulin 3.1 g/dL; Glucose 217 mg/dL (74-106); Sodium 141 mmol/L (136-145); Thyroid Stimulating Hormone 0.974 uIU/mL (0.358-3.740); Total Protein 6.5 g/dL (6.4-8.2)
[2023-12-19 17:11] LABS: Estimated Average Glucose 166 mg/dL; Glycohemoglobin A1C 7.4 % (4.5-6.2)
[2023-12-19 19:10] LABS: Percent Iron Saturation 26.9 %
[2023-12-20 15:09] LABS: Albumin 3.9 g/dL (2.9-4.4); Alpha-1-Globulin 0.2 g/dL (0.0-0.4); Alpha-2-Globulin 0.6 g/dL (0.4-1.0); Free Kappa Lt Chains,S 33.8 mg/L (3.3-19.4); Gamma Globulin 0.7 g/dL (0.4-1.8); Immunoglobulin A, Qn, Serum 112 mg/dL (61-437); Immunoglobulin G, Qn, Serum 805 mg/dL (603-1613); Immunoglobulin M, Qn, Serum 48 mg/dL (15-143); Kappa/Lambda Ratio,S 1.61 (0.26-1.65); Protein, Total 6.2 g/dL (6.0-8.5)
== END 2023-12-19 14:55 | disposition home or self-care (01) ==
LOC: LAB 14:55
PROVIDERS: PCP Internal Medicine; Visit Provider Internal Medicine
DX: I13.0 Hypertensive heart and chronic kidney disease with heart failure and stage 1 through stage 4 chronic kidney disease, or unspecified chronic kidney disease (principal); N18.32 Chronic kidney disease, stage 3b; I50.32 Chronic diastolic (congestive) heart failure; E78.00 Pure hypercholesterolemia, unspecified; E11.65 Type 2 diabetes mellitus with hyperglycemia; E11.22 Type 2 diabetes mellitus with diabetic chronic kidney disease; R53.83 Other fatigue
CPT/HCPCS: 36415; 80053; 82607; 82728; 82746; 83036; 83540; 83550; 84443; 85025; 86140

== ENCOUNTER 2024-01-16 09:26 | Outpatient (OUT) | payer MEDICARE, BC, SELFPAY ==
--- NOTE | 2024-01-16 09:30 | US_ITS ---
[facility] [place] [id number] Patient Name: JOSE L AMES MRN: [id number] date: 1940 Sex: M Assigned Patient Location: [place] Current Patient Location: [place] Accession/Order Number: [id number] Exam Date: 01/16/2024 09:32 Report Date: 01/16/2024 14:29 At the request of: SHERIF ALEJANDRO Procedure: US renal BI US renal BI, 01/16/2024 9:32 AM EDT INDICATION: Stage 3b Chronic Kidney Disease, Anemia COMPARISON: There is no appropriate prior study for comparison. FINDINGS: The kidneys measure 11.4 x 4.9 x 5.3 cm on the right and 10.8 x 5.9 x 6.3 cm on the left side. No hydronephrosis is noted. Normal vascularity of kidneys. Tiny hyperechogenic lesion in the midpole of the left kidney is noted measuring 2 x 1 x 2 mm likely nonobstructive nephrolithiasis. Multiple calcified granulomas within the spleen are noted. The visualized portion of the urinary bladder is unremarkable. No ureteral jet is noted. The urinary bladder measures 45.9 cc. The visualized portion of the liver is hyperechogenic suggesting of hepatic steatosis. US/US renal BI IMPRESSION: No hydronephrosis Electronically authenticated by: MORENITA AGUIRRE Date: 01/16/2024 14:29
[2024-01-16 10:23] LABS: Basophils Percent Auto 0.8 % (0.2-2.0); Eosinophils Absolute Auto 0.1 10^3/uL (0.0-0.7); Eosinophils Percent Auto 1.5 % (0.9-7.0); Hematocrit 39.5 % (42.0-54.0); Hemoglobin 13.3 g/dL (14.0-18.0); Immature Granulocytes Abs Auto 0.01 10^3/uL (0.00-0.03); Immature Granulocytes Pct Auto 0.2 % (0.0-0.5); Lymphocytes Absolute Auto 0.9 10^3/uL (1.2-3.8); Lymphocytes Percent Auto 17.7 % (20.5-60.0); Mean Corpuscular HGB Conc 33.7 g/dL (29.9-35.2); Mean Corpuscular Hemoglobin 32.8 pg (25.9-34.0); Mean Corpuscular Volume 97.3 fL (80.0-94.0); Mean Platelet Volume 9.5 fL (9.5-13.5); Monocytes Absolute Auto 0.4 10^3/uL (0.3-0.8); Monocytes Percent Auto 9.2 % (1.7-12.0); Neutrophils Absolute Auto 3.4 10^3/uL (1.4-6.5); Neutrophils Percent Auto 70.6 % (43.0-75.0); Platelet Count 123 10^3/uL (150-450); Red Blood Count 4.06 10^6/uL (4.70-6.10); White Blood Count 4.8 10^3/uL (4.0-11.0)
[2024-01-16 10:36] LABS: Creatinine Urine Random 117.34 mg/dL (20.00-300.00); Protein Creatinine Ratio Urine 0.28; Total Protein Urine Random 32.8 mg/dL (<=11.9)
[2024-01-16 11:28] LABS: Anion Gap 9.2; BUN Creatinine Ratio 12.2; Calcium 9.1 mg/dL (8.5-10.1); Carbon Dioxide 32.5 mmol/L (21.0-32.0); Chloride 100 mmol/L (98-107); Estimated GFR (African America >60 (>=60); Estimated GFR (Non-African Ame 56 (>=60); Glucose 244 mg/dL (74-106); Potassium 4.7 mmol/L (3.5-5.1); Sodium 137 mmol/L (136-145)
== END 2024-01-16 09:27 | disposition home or self-care (01) ==
LOC: US 09:26
PROVIDERS: PCP Internal Medicine; Visit Provider Internal Medicine
DX: N18.32 Chronic kidney disease, stage 3b (principal); D64.9 Anemia, unspecified
CPT/HCPCS: 36415; 76775; 80048; 82570; 84156; 85025

== ENCOUNTER 2024-04-07 10:58 | Outpatient (OUT) | payer MEDICARE, BC, SELFPAY ==
[2024-04-07 11:17] LABS: Basophils Percent Auto 0.9 % (0.2-2.0); Eosinophils Percent Auto 0.7 % (0.9-7.0); Hematocrit 42.1 % (42.0-54.0); Immature Granulocytes Abs Auto 0.01 10^3/uL (0.00-0.03); Immature Granulocytes Pct Auto 0.2 % (0.0-0.5); Lymphocytes Absolute Auto 0.7 10^3/uL (1.2-3.8); Lymphocytes Percent Auto 16.1 % (20.5-60.0); Mean Corpuscular HGB Conc 33.3 g/dL (29.9-35.2); Mean Corpuscular Hemoglobin 32.7 pg (25.9-34.0); Mean Corpuscular Volume 98.4 fL (80.0-94.0); Mean Platelet Volume 9.7 fL (9.5-13.5); Monocytes Absolute Auto 0.4 10^3/uL (0.3-0.8); Monocytes Percent Auto 9.1 % (1.7-12.0); Neutrophils Absolute Auto 3.3 10^3/uL (1.4-6.5); Platelet Count 125 10^3/uL (150-450); Red Blood Count 4.28 10^6/uL (4.70-6.10); Red Cell Distribution Width 12.8 % (11.0-15.0); White Blood Count 4.5 10^3/uL (4.0-11.0)
--- OUTSIDE RECORDS SUMMARY | 2024-04-07 11:21 | XMS_ITS | CCD ---
Author Organization [facility] Care Team Providers Care Service Establishment Attendant Name Role Phone ERICH KEY Primary Care Physician [phone] DO Erich Key Primary Care Provider [phone] MD Javier Murray Admit Provider MD Randolph Velasquez Attending Provider Randolph Velasquez Attending Unavailable Erich Key Primary Care Unavailable Javier Murray Admitting Unavailable Erich Key Unavailable JAVON, DR GORMAN Admitting Unavailable BALL, [...] HAY ., DR TRAN Consulting Unavailable TROTTI, GIROLAMO Consulting Unavailable Javon, Erich Grijalva Unavailable Unavailable Unavailable Staci Burnette Unavailable Dr. Cathleen Loepz Referring Unavailable John, Dr. Connolly Attending Unavailable Javon, Dr. Erich Reed Primary Care See Lopez, Dr. Connolly Attending Unavailable Javon, Dr. Erich Reed Primary Care See Lopez, Dr. Connolly Referring Unavailable John, Dr. Connolly Attending Unavailable Javon, Dr. Erich Reed Primary Care See Lopez, Dr. Connolly Referring Unavailable MD CATHLEEN LOPEZ Attending Unavailable MD CATHLEEN LOPEZ Referring Unavailable Javon, Dr. Erich Reed Primary Care MD CATHLEEN Jo Attending Unavailable MD CATHLEEN LOPEZ Referring Unavailable Javon, Dr. Erich Reed Primary Care See Key, Dr. Erich Reed Primary Care MD CATHLEEN Jo Attending Unavailable MD CATHLEEN LOPEZ Referring Unavailable Javon, Dr. Erich Reed Primary Care Carlos A Mendez Attending Unavailable Carlos A PETERS Attending Unavailable Carlos A PETERS Attending Unavailable JAILYN SEPULVEDA Attending Unavailable Allergies Allergy Classification Reported Allergen(s) Allergy Type Date of Onset Reaction(s) Facility (5 sources) Angiotensin Converting Enzyme (Shruti) Inhibitors; Translations: [SHRUTI Inhibitors] Allergy to substance 08-18-20 17 [facility] (20 sources) Acetaminophen Drug Allergy 11-06-19 24 [facility] (1 source) Acetaminophen Drug Allergy [facility]ository (1 source) patient allergy list reviewed by nurse or physicia Propensity to adverse reactions 07-11-20 Comment:Done [facility] Other (1 source) Acetaminophen; Translations: [Tylenol] Drug Allergy [facility] Repository Medications Current Medications Medication Drug Class(es) Dates [...] Every 6 hours 0 September 08, 2022 1:00am take 1-2 tablets by mouth every eight hours as needed Acetaminophen 325 MG Oral Tablet TAKE 1 TO 2 TABLETS EVERY 8 HOURS NEEDED. Quantity: 0 Refills: 0 Ordered: 12-Nov-2022 DO Active take 2 tablets by mo [facility] every eight hours as needed for pain Acetaminophen 325 MG 2 tablets Orally every 8 hours as needed for pain/fever Active albuterol 0.83 mg/ml inhalation solution (15 sources) beta2-Adrenergic Agonist Start: 09-10-2022 take 2.5 mg by inhalation every four hours albuterol 0.083% Inh Idalia 3 mL 2.5 mg, 3 mL, NEB, q4hr Shortness of breath or wheezing, Refill(s) 0 Start Date: 09/10/22 Status: Ordered Albuterol Sulfat e (2.5 MG/3ML) 0.083% 3 mL as needed Inhalation every 6 hrs Not-Taking amLODIPine 10 mg oral tablet (20 sources) Dihydropyridine Calcium Channel David Start: 09-08-2022 amLODIPine 10 mg Tab Refills(s) 0 Start Date: 01/29/24 Status: Ordered take 1 tablet by mouth once kulwant y Norvasc 5 MG Oral Tablet Take 1 tablet daily Quantity: 0 Refills: 0 Ordered: 11-Mar-2023 DO Active aspirin 81 mg delayed release oral tablet (20 sources) Platelet Aggregation Inhibitor, Nonsteroidal Anti-inflammatory Drug Start: 09-10-2022 take 1 tablet by mouth once daily aspirin 81 mg Oral EC Tab 81 mg = 1 tab(s), Oral, Daily, Refills(s) 0 Start Date: 09/10/22 Status: Ordered Start: 02-19-2018 take 81 mg by mouth once daily Aspirin Active 81 MG PO Daily September 04, 2022 1:00am Start: 02-19-2018 take 1 tablet by krunal th every twenty-four hours Aspirin 81 81 MG 1 tablet Orally Once a day Jan, Active Start: 02-19-2018 Blood-Glucose Meter (Freesty le Lite Meter) kit (1 source) Start: 01-09-2024 Blood-Glucose Meter (Freestyle Lite Meter) kit Active 0 .Route January 09, 2024 12:00am to check blood sugar daily Carboxymethylcellulose (20 sources) Start: 11-05-2023 Carboxymethylc ellulose Sodium Active 1 DROPS OPHTHALMIC As Directed November 05, 2023 1:00am Refresh Tears 0. 5 % as directed Ophthalmic Active take 1 drop(s) into the eye(s) four times daily Refresh Tears 0.5 % Ophthalmic Solution INSTILL 1 DROP INTO BOTH EYES 4 TIMES DAILY. Quantity: 0 Refills: 0 Ordered: 12-Nov-2022 DO Active carvedilol 6.25 mg oral tablet (20 sources) alpha-Adrenergic David, beta-Adrenergic David Start: 11-05-2023 take 6.25 mg by mouth twice daily Carvedilol Active 6.25 MG PO Twice daily November 05, 2023 1:00am Start: 12-17-2022 take 1 tablet by krunal twice daily at mealtime Carvedilol 6.25 MG Oral Tablet TAKE 1 TABLET TWICE DAILY WITH MEALS. Quantity: 180 Refills: 1 Ordered: 17-Dec-2022 Cathleen Lopez MD Start : 17-Dec-2022 Active new start D/C Amlodipine Centrum Silver 50+Men - (16 sources) Centrum Silver 5 0+Men - as directed Orally Active cephalexin 500 mg oral capsule (3 sources) Cephalosporin Antibacterial Start: 2023 take 1 capsule by mouth every eight hours Cephalexin 500 MG 1 capsule Orally tid for 14 days Sep, Active cholecalciferol 0.01 mg oral tablet (8 sources) Vitamin D Start: 09-04-2022 take 10 ug by mouth once daily Cholecalciferol (Vitamin D3) Active 10 MCG PO Daily September 04, 2022 1:00am take 1 capsule by mo ut every twenty-four hours Vitamin D3 25 MCG [...] Relaxant take 1 tablet by mouth every twenty-fou r hours Cyclobenzaprine HCl 5 MG 1 tablet at bedtime as needed Orally Once a day Active empagliflozin 10 mg oral tablet (1 source) Sodium-Glucose Cotransporter 2 Inhibitor Start : 02-04 take 1 tablet by mouth once daily Empagliflozin (Jardiance) 10 mg tablet Active 10 MG PO Daily 90 90 February 05, 2024 12:00am fluticasone propionate 0.05 mg/actuat metered dose nasal spray (20 sources) Corticosteroid Start : 11-04 Fluticasone Propionate Active 2 SPRAY INTRANASAL Daily November 05, 2023 1:00am Start: 09-04-2022 End: 09-08-2022 Fluticasone Propionate (Flon ase) 50 mcg/actuation Gage,Suspension Discontinued 1 SPRAY INTRANASAL Daily September 04, 2022 1:00am September 08, 2022 10:19am take 2 spray(s) nasa l route once daily Fluticasone Propionate 50 MCG/ACT USE 2 SPRAYS IN EACH NOSTRIL ONCE DAILY for 90 Active take 2 spray(s) nasa l route once daily Fluticasone Propionate 50 MCG/ACT USE 2 SPRAYS IN EACH NOSTRIL ONCE DAILY for 90 Active take 2 spray(s) nasa l route once daily Flonase 50 MCG/ACT SUSP SPRAY 2 SPRAYS INTO EACH NOSTRIL EVERY DAY Quantity: 0 Refills: 0 Ordered: 12-Nov-2022 DO Active Fluticasone Propion-Salmeterol (20 sources) Corticosteroid, beta2-Adrenergic Agonist Start: 11-05-2023 take 1 puff(s) by inhalation twice daily Fluticasone Propion-Salmeterol (Advair Hfa) 115-21 mcg/actuation HFA aerosol inhaler Active 2 PUFF INHALATION Twice daily November 05, 2023 1:00am Start: 10-07-2022 take 2 puff(s) by in halation twice daily Advair HFA 115-21 MCG/ACT 2 [...] DO Active glucose 0.4 mg/mg oral gel (3 sources) Start: 09-08-2022 Dextrose (Glut ose-15) 40 % Gel Active 0.6 GM PO PRN 0 September 08, 2022 1:00am Insulin Aspart U-100 (Novolog Flexpen U-100 Insulin) 100 unit/mL (3 mL) Insulin Pen (6 sources) Start: 09-08-2022 inject 1 dose by subcutaneous injection once at mealtime Insulin Aspart U-100 (Novolog Flexpen U-100 Insulin) 100 unit/mL (3 mL) Insulin Pen Active 1 sliding scale dose SUBCUT 3X/Day with meals and bedtime 0 September 08, 2022 1:00am Start: 09-08-2022 End: 11-05-2023 inject 5 [IU] by subcutaneous injection once before mealtime Insulin Aspart U-100 (Novolog Flexpen U-100 Insulin) 100 unit/mL (3 mL) Insulin Pen Discontinued 5 UNITS SUBCUT 3x/Day before meals 0 September 08, 2022 1:00am November 05, 2023 12:29pm Start: 09-08-2022 inject 1 dose by sub cutaneous injection once at mealtime Insulin Aspart U-100 [...] pen injector (20 sources) Insulin Analog Start: 11-05-2023 Insulin Glargi ne (Lantus Solostar U-100 Insulin) 100 unit/mL (3 mL) insulin pen Active 20 UNIT SUBCUT Daily November 05, 2023 12:25pm Start: 09-10-2022 Lantus Solosta r Pen 100 units/mL subcutaneous solution 20 unit(s), SubCutaneous, Daily, Refills(s) 0 Start Date: 09/10/22 Status: Ordered Start: 09-08-2022 End: 11-05-2023 Insulin Glargine (Lantus Idalia ostar U-100 Insulin) 100 unit/mL (3 mL) Insulin Pen Discontinued 15 UNITS SUBCUT Daily 0 September 08, 2022 1:00am November 05, 2023 12:29pm Lantus SoloStar 100 UNIT/ML 20 units Subcutaneous daily Active Lactobacillus Combination No.4 (Probiotic) 3 billion cell capsule (3 sources) Start: 09-08-2022 take 3 capsules by mouth once daily Lactobacillus Combination No.4 (Probiotic) 3 billion cell capsule Active 3000 MMU CELLS PO Daily September 08, 2022 1:00am administer with a meal Start: 09-08-2022 take 3 capsules by m outh once daily Lactobacillus Combination No.4 (Probiotic) 3 billion cell capsule Active 3000 MMU CELLS PO Daily September 08, 2022 12:00am administer with a meal lisinopril 20 mg oral tablet (20 sources) Angiotensin Converting Enzyme Inhibitor Start: 01-29-2024 lisinopril 20 mg Tab Refills(s) 0 Start Date: 01/29/24 Status: Ordered Start: 11-11-2023 take 1 tablet by krunal th once daily Lisinopril Active 0 .ROUTE .COMPLEX November 11, 2023 1:23pm TAKE 1 TABLET BY MOUTH EVERY DAY Start: 11-05-2023 End: 11-11-2023 take 20 mg by mouth once daily Lisinopril Discontinued 20 MG PO Daily November 05, 2023 1:00am November 11, 2023 1:23pm Start: 09-19-2022 End: 10-19-2022 take 1 tablet by mouth once daily lisinopril 20 mg Tab 20 mg = 1 tab(s), Oral, Daily, X 30 day(s), # 30 tab(s), Refills(s) 0, Pharmacy: [facility]/pharmacy #[id number], 180, cm, 08/07/21 10:07:00 EST, Height/Length Dosing, 110.8, kg, 08/07/21 10:07:00 EST, Weight Dosing Start Date: 09/19/22 Stop Date: 10/19/22 Status: Ordered Start: 09-08-2022 End: 11-05-2023 take 10 mg by mouth once daily Lisinopril Discontinued 10 MG PO Daily 0 September 08, 2022 1:00am November 05, 2023 12:25pm Start: 12-23-2020 End: 09-08-2022 take 20 mg by mouth once daily Lisinopril Discontinued 20 MG PO Daily September 04, 2022 1:00am September 08, 2022 10:19am 24 hr mirabegron 50 mg extended release oral tablet (2 sources) beta3-Adrenergic Agonist Start: 02-05-2024 take 50 mg by mouth once daily Mirabegron Active 50 MG PO Daily February 05, 2024 12:00am Start: 01-29-2024 take 1 tablet by krunal th once daily Myrbetriq 50 mg oral tablet, extended release 50 mg = 1 tab(s), Oral, Daily, # 30 tab(s), Refills(s) 11, Pharmacy: [facility]/pharmacy #[id number] Start Date: 01/29/24 Status: Ordered mupirocin 0.02 mg/mg topical ointment (20 sources) RNA Synthetase Inhibitor Antibacterial Start: 11-05-2023 Mupirocin Active 1 APPLIC TOPICAL Twice daily November 05, 2023 1:00am Mupirocin 2 % 1 application Externally Twice a day for 30 days Active Mupirocin 2 % Ex ternal Ointment APPLY SPARINGLY TO AFFECTED AREA(S) TWICE DAILY Quantity: 0 Refills: 0 Ordered: 12-Nov-2022 DO Active Ov-Bob-Demee-B0-Wujpxqt-Vwoz in (Centrum Silver Men) [phone] mcg tablet (2 sources) Start: 11-05-2023 take 1 tablet by mouth once daily Vl-Arq-Ygfzp-M7-Ztfmaaf-Colzvb (Centrum Silver Men) [phone] mcg tablet Active 1 TAB PO Daily November 05, 2023 1:00am potassium chloride 10 meq extended release oral tablet (20 sources) Start: 11-05-2023 take 10 mEq by mouth once daily Potassium Chloride Active 10 MEQ PO Daily November 05, 2023 1:00am Start: 09-25-2022 take 1 tablet by krunal every twenty-four hours Klor-Con 10 10 MEQ 1 Tablet Orally daily for 30 day(s) Sep, Active Start: 09-08-2022 End: 11-05-2023 take 15 mEq by mouth once daily Potassium Chloride Dis continued 15 MEQ PO Daily September 08, 2022 1:00am November 05, 2023 12:26pm Bronwyn-Bid Probiotic - (12 sources) Bronwyn-Bid Probiot ic - as directed Orally Active Symbicort 160/4.5 inhalation aerosol with adapter (4 sources) Start: take 2 puff(s) by inhalation twice daily Symbicort 160/4.5 inhalation aerosol with adapter 2 puff(s), Inhalation, BID, Refill(s) 0 Start Date: 09/10/22 Status: Ordered tamsulosin hydrochloride 0.4 mg oral capsule (20 sources) alpha-Adrenergic David Start: take 1 capsule by mouth once daily in the evening Tamsulosin Active 0 .ROUTE .COMPLEX October 26, 2023 4:55pm TAKE 1 CAPSULE BY MOUTH EVERY EVENING Start: 05-08-2021 End: 10-26-2023 take 0.4 mg by mouth once daily Tamsulosin Discontinued 0.4 MG PO Daily September 04, 2022 1:00am October 26, 2023 4:55pm tiotropium 0.018 mg inhalation powder (20 sources) Anticholinergic Start: 09-10-2022 take 1 capsule by inhalation once daily Spiriva HandiHaler 18 mcg inhalation capsule 18 mcg = 1 cap(s), Inhalation, Daily, Refills(s) 0 Start Date: 09/10/22 Status: Ordered Start: 09-10-2022 take 1 capsule by in halation once daily Spiriva HandiHaler 18 mcg inhalation capsule 18 mcg = 1 cap(s), Inhalation, Daily, Refills(s) 0 Start Date: 09/10/22 Status: Ordered Start: 09-08-2022 End: 11-05-2023 take 1 capsule by inhalation once daily Tiotropium [place] (Spiriva With Handihaler) 18 mcg capsule, w/inhalation device Discontinued 1 CAP INHALATION Daily September 08, 2022 1:00am November 05, 2023 12:28pm puncture 1 cap using device; one dose = 2 inhalations tiZANidine 2 mg oral tablet (20 sources) Central alpha-2 Adrenergic Agonist Start: 01-29-2024 tiZANidine 2 mg Tab Refills(s) 0 Start Date: 01/29/24 Status: Ordered Start: 12-13-2023 take 0.5-1 tablets b y mouth once daily at bedtime Tizanidine Active 0 .ROUTE .COMPLEX December 13, 2023 1:56pm TAKE 1/2 TO 1 TABLET BY MOUTH EVERY DAY AT BEDTIME Start: 11-05-2023 End: 12-13-2023 take 2 mg by mouth once daily at bedtime Tizanidine Discontinued 2 MG PO Daily at bedtime November 05, 2023 1:00am December 13, 2023 1:56pm take 0.5-1 tablets b y mouth once daily at bedtime tiZANidine HCl 2 MG TAKE 1/2 TO 1 TABLET BY MOUTH EVERY DAY AT BEDTIME for 30 Active torsemide 10 mg oral tablet (20 sources) Loop Diuretic Start: 11-05-2023 take 20 mg by mouth once daily Torsemide Active 20 MG PO Daily November 05, 2023 12:28pm Start: 09-08-2022 End: 11-05-2023 take 10 mg by mouth once daily Torsemide Discontinued 10 MG PO Daily September 08, 2022 1:00am November 05, 2023 12:29pm Torsemide 10 MG 2 Orally daily Active Vitamin D3 25 MCG (1000 UT) (20 sources) take 1 capsule by mouth once len ly Vitamin D3 25 MCG (1000 UT) 1 capsule Orally Once a day Active Completed/Discontinued Medications Medication Drug Class(es) Dates Sig (Normalized) Sig (Original) albuterol 0.833 mg/ml / ipratropium bromide 0.167 mg/ml inhalation solution (3 sources) Anticholinergic, beta2-Adrenergic Agonist Start: 09-08-2022 End: 11-05-2023 take 1 mL by inhalation three times daily Ipratropium-[place] rol Discontinued 3 ML INHALATION Three times daily September 08, 2022 1:00am November 05, 2023 12:29pm amoxicillin 875 mg / clavulanate 125 mg oral tablet (3 sources) Penicillin-class Antibacterial Start: 09-08-2022 End: 11-05-2023 take 1 tablet by mouth twice daily Amoxicillin-Pot Clavulanate Discontinued 1 TAB PO Twice daily 14 September 08, 2022 1:00am November 05, 2023 12:22pm azithromycin 250 mg oral tablet (3 sources) [...] to 1 000 mcg Sep, 1000 mcg 120 actuat budesonide 0.16 mg/actuat / formoterol fumarate 0.0045 mg/actuat metered dose inhaler (20 sources) Corticosteroid, beta2-Adrenergic Agonist Start: 09-08-2022 End: 11-05-2023 Budesonide-Formoterol (Symbicort) 160-4.5 mcg/actuation HFA aerosol inhaler Discontinued 1 INH INHALATION Twice daily 10.2 September 08, 2022 1:00am November 05, 2023 12:28pm take 2 puff(s) by mouth twice da daren Symbicort 160-4.5 MCG/ACT Inhalation Aerosol INHALE 2 PUFFS TWICE DAILY. RINSE MOUTH AFTER USE. Quantity: 3 Refills: 0 Ordered: 12-Nov-2022 DO Active take 2 puff(s) by inhalation twi ce daily Symbicort 160-4.5 MCG/ACT 2 puffs Inhalation Twice a day Active celecoxib 100 mg oral capsule (3 sources) Nonsteroidal Anti-inflammatory Drug Start: 09-04-2022 End: 09-08-2022 take 100 mg by mouth twice daily Celecoxib Discontinued 100 MG PO Twice daily September 04, 2022 1:00am September 08, 2022 10:19am DermacinRx Therazole Rocky 1-0.05 & 20 % External Therapy Pack (5 sources) DermacinRx Therazole Rocky 1-0.05 & 20 % External Therapy Pack as directed Quantity: 0 Refills: 0 Ordered: 12-Nov-2022 DO Active doxycycline hyclate 100 mg oral tablet (3 sources) Tetracycline-class Drug Start: 09-08-2022 End: 11-05-2023 take 100 mg by mouth every twelve hours Doxycycline Hyclate Discontinued 100 MG PO Q12H 10 September 08, 2022 1:00am November 05, 2023 12:22pm ferrous sulfate (11 sources) take 1 tablet by mouth once daily Ferrous Sulfate 325 (65 Fe) MG 1 tablet Orally Once a day Not-Taking take 1 tablet by krunal th every twenty-four hours Ferrous Sulfate 325 (65 Fe) MG 1 tablet Orally Once a day Not-Taking 12 hr guaiFENesin 600 mg extended release oral tablet (3 sources) Start: 09-08-2022 End: 11-05-2023 take 1 tablet by mouth twice daily, then take 1 tablet by mouth every twelve hours Guaifenesin (Mucinex) 600 mg Tablet Extended Release 12hr Discontinued 600 MG PO Twice daily September 08, 2022 1:00am November 05, 2023 12:29pm hydroCHLOROthiazide 12.5 mg oral tablet (3 sources) Thiazide Diuretic Start: 09-04-2022 End: 09-08-2022 take 12.5 mg by mouth once daily Hydrochlorothiazide Discontinued 12.5 MG PO Daily September 04, 2022 1:00am September 08, 2022 10:19am Hydrochlorothiazide-12. 5 mg 12.5 MG (11 sources) [...] 1 tablet Orally Once a day Not-Taking metFORMIN hydrochloride 1000 mg oral tablet (20 sources) Biguanide Start: 12-23-2020 End: 02-05-2024 take 1000 mg by mouth twice daily Metformin Discontinued 1000 MG PO Twice daily September 04, 2022 1:00am February 05, 2024 11:25am take 1 tablet by krunal th every twelve hours metFORMIN HCl - 1000 MG Oral Tablet TAKE 1 TABLET EVERY 12 HOURS Quantity: 180 Refills: 0 Ordered: 12-Nov-2022 DO Active oxybutynin chloride 5 mg oral tablet (20 sources) Cholinergic Muscarinic Antagonist Start: 09-04-2022 End: 09-08-2022 take 5 mg by mouth at bedtime Oxybutynin Chloride Discontinued 5 MG PO Bedtime September 04, 2022 1:00am September 08, 2022 10:19am Start: 08-07-2021 take 10 mg by mouth once daily Oxybutynin Chloride Active 10 MG PO Daily September 04, 2022 1:00am predniSONE 10 mg oral tablet (3 sources) Start: 09-08-2022 End: 11-05-2023 take 1 tablet by mouth twice daily, then take 1 tablet by mouth once daily, then take 0.5 tablet by mouth once daily Prednisone Discontinued 10 MG PO As Directed 18 September 08, 2022 1:00am November 05, 2023 12:29pm Take 1 tablet twice a day for 5 days then 1 tablet daily for 5 days then half a tablet daily Problems Active Problems Problem Classification Problem Date Documented Da te Episodic/Chronic Abdominal pain (20 sources) Abdominal pain; Translations: [Unspecified abdominal pain] Resolved: 06-10-2020 Episodic Acute and unspecified renal failure (1 source) Acute kidney failure, unspecified; Translations: [ACUTE KIDNEY FAILURE UNSPECIFIED] Onset: 09-06-2022 Episodic Acute posthemorrhagic anemia (20 sources) Acute posthemorrhagic anemia; Translations: [Acute posthemorrhagic anemia] Episodic Administrative/social admission (6 sources) Counseling procedure with explicit context; Translations: [Tobacco abuse counseling] Onset: 09-04-2022 09-08-2022 Episodic Aortic; peripheral; and visceral artery aneurysms (20 sources) Aneurysm of left common iliac artery; Translations: [Aneurysm of iliac artery] Chronic Chronic kidney disease (16 sources) Chronic kidney disease stage 3A ; Translations: [Chronic kidney disease, Stage III (moderate)] 11-05-2023 Chronic Chronic obstructive pulmonary disease and bronchiectasis [...] 09-04-2022 09-08-2022 Chronic Deficiency and other anemia (4 sources) Anemia due to blood loss 09-10-2022 Chronic Deficiency and other anemia (20 sources) Anemia due to chronic blood loss; Translations: [Iron deficiency anemia secondary to blood loss (chronic)] Chronic Deficiency and other anemia (20 sources) Pernicious anemia; Translations: [Vitamin B12 deficiency anemia due to intrinsic factor deficiency] 11-06-2023 Episodic Deficiency and other anemia (9 sources) Vitamin B12 deficiency anemia due to intrinsic factor deficiency; Translations: [Pernicious anemia] Onset: 11-01-2021 Episodic Deficiency and other anemia (1 source) Anemia; Translations: [Anemia, unspecified] 01-05-2024 Episodic Diabetes mellitus with complications (20 sources) Type 2 diabetes mellitus; Translations: [Type 2 diabetes mellitus with hyperglycemia] Onset: 09-06-2022 Chronic Diabetes mellitus without complication (20 sources) Type 2 diabetes mellitus without complication; [...] 09-10-2022 Episodic Genitourinary symptoms and ill-defined conditions (9 sources) Urge incontinence; Translations: [Urge incontinence of [...] sources) Long-term current use of insulin; Translations: [group home (current) use of insulin] Episodic Other aftercare (20 sources) H/O: high risk medication; Translations: [Other intermediate (current) drug therapy] Episodic Other aftercare (1 source) Other intermediate (current) drug therapy; Translations: [OTH USP CURRENT DRUG THERAPY] Onset: 09-06-2022 Episodic Other aftercare (1 source) group home (current) use of aspirin; Translations: [INVOICE 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 CLERK CURRENT USE OF ASPIRIN] Onset: 09-06-2022 Episodic Other aftercare (1 source) group home (current) use of oral hypoglycemic drugs; Translations: [INVOICE 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 CLERK USE ORAL HYPOGLYCEMIC DX] Onset: 09-06-2022 Episodic Other aftercare (5 sources) Post-discharge follow-up; Translations: [Other follow-up examination] Episodic Other aftercare (3 sources) group home (current) use of insulin Episodic Other aftercare (6 sources) Long-term current use of drug therapy; Translations: [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] Episodic Other connective tissue disease (20 sources) Other symptoms and signs involving the nervous system; Translations: [Suspected sleep apnea] Episodic Other connective tissue disease (1 source) Achilles tendinitis, right leg Episodic Other diseases of bladder and urethra (1 source) Detrusor overactivity; Translations: [Overactive bladder] Onset: 01-29-2024 Chronic Other diseases of bladder and urethra (1 source) Overactive bladder 01-29-2024 Chronic Other diseases of veins and lymphatics (20 sources) Peripheral venous insufficiency; Translations: [Venous insufficiency (chronic) (peripheral)] Episodic Other diseases of veins and lymphatics (7 sources) Venous insufficiency (chronic) (peripheral); Translations: [Venous (peripheral) insufficiency, unspecified] Episodic Other diseases of veins and lymphatics (2 sources) Venous insufficiency of leg; Translations: [Venous insufficiency (chronic) (peripheral)] 11-03-2023 Episodic Other ear and sense organ disorders (20 sources) Impacted cerumen; Translations: [Impacted cerumen, right ear] Onset: 10-16-2018 Resolved: 06-10-2020 Episodic Other gastrointestinal disorders (20 sources) Flatulence, eructation and gas pain; Translations: [Abdominal distension (gaseous)] Episodic Other hematologic conditions (8 sources) Raised cardiac enzyme or marker; Translations: [...] of falling] Episodic Other lower respiratory disease (3 sources) Computed tomography result abnormal; Translations: [Other nonspecific [...] on feet] Episodic Other nervous system disorders (7 sources) General unsteadiness; Translations: [Unsteadiness on feet] 11-06-2023 Episodic Other non-epithelial cancer of skin (20 sources) 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; Translations: [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, including shoulder] Onset: 08-21-2022 Episodic Other nutritional; endocrine; and metabolic disorders (10 sources) Simple obesity ; Translations: [Other obesity due to excess calories] Resolved: 03-21-2020 05-01-2021 Chronic Other nutritional; endocrine; and metabolic disorders (20 sources) Obese class I; Translations: [Body mass index (BMI) 34.0-34.9, adult] Onset: 07-11-2018 Chronic Other nutritional; endocrine; and metabolic disorders (20 sources) Obesity; Translations: [Obesity, unspecified] Chronic Pneumonia (except that caused by tuberculosis or sexually transmitted disease) (14 sources) Pneumonia; Translations: [Pneumonia, unspecified organism] Onset: 09-04-2022 Episodic Residual codes; unclassified (2 sources) Obstructive sleep apnea syndrome; Translations: [Obstructive sleep apnea (adult) (pediatric)] 11-03-2023 Chronic Residual codes; unclassified (2 sources) Obstructive sleep apnea (adult) (pediatric); Translations: [Obstructive sleep apnea (adult)(pediatric)] 11-06-2023 Chronic Residual codes; unclassified (1 source) Disorientated; Translations: [Disorientation, unspecified] Onset: 09-10-2022 Episodic Residual codes; unclassified (1 source) Edema; Translations: [Edema, unspecified] Onset: 09-10-2022 Episodic Residual codes; unclassified (4 sources) Delirium 09-10-2022 Episodic Residual codes; unclassified (4 sources) Dependent edema 09-10-2022 Episodic Residual codes; unclassified (3 sources) Tobacco user; Translations: [Tobacco use] 09-08-2022 Episodic Residual codes; unclassified (1 source) Tobacco use; Translations: [Tobacco use] Onset: 09-04-2022 Episodic Residual codes; unclassified (2 sources) Edema of lower extremity; Translations: [Edema] Episodic Respiratory failure; insufficiency; arrest (adult) (4 sources) Acute respiratory failure; Translations: [Acute respiratory [...] dependence, cigarettes, uncomplicated] Onset: 07-11-2018 Chronic Unclassified (4 sources) Asymptomatic microscopic hematuria 12-27-2020 Unclassified (4 sources) Injury of radial nerve at upper [...] in bowel habit] Resolved: 0 Episodic Other screening for suspected conditions (not mental [...] Test Name Value Interpretation Reference Range Facility Ambulatory Visit Summaryon 0 01-29-2024 Ambulatory Visit Summary JOSE L MAURICIO :1940 Visit Date:01/29/2024 Ambulatory Visit Instructions Your Diagnosis OAB (overactive bladder) BPH with urinary obstruction Asymptomatic microscopic hematuria Your Care Team Attending Physician - Carlos A PETERS MD Primary Care Physician - ERICH KEY DO This Is Your Medications List mirabegron (Myrbetriq 50 mg oral tablet, extended release) Contact prescribing physician if questions or concerns acetaminophen (acetaminophen 325 mg Tab) albuterol (albuterol 0.083% Inh Idalia 3 mL) amlodipine (amLODIPine 10 mg Tab) aspirin (aspirin 81 mg Oral EC Tab) budesonide-formotero l (Symbicort 160/4.5 inhalation aerosol with adapter) insulin glargine (Lantus Solostar Pen 100 units/mL subcutaneous solution) lisinopril (lisinopril 20 mg Tab) metformin (metformin 1000 mg oral tablet) potassium chloride (potassium chloride 15 mEq oral tablet, extended release) tiotropium (Spiriva HandiHaler 18 mcg inhalation capsule) tizanidine (tiZANidine 2 mg Tab) torsemide (torsemide 10 mg Tab) [Image Removed: STOP]Stop taking these medications tamsulosin (tamsulosin 0.4 mg Cap) Procedures Performed ORIF - Open reduction and internal fixation of fracture (05/01/2021), Left arm (04/28/2021), Cystourethroscopy with dilation of urethral stricture (01/12/2021), TURP - Transurethral resection of prostate (2014), Complete resection of colon, Tonsillectomy. What to do next Scheduled Follow-Up Appointments Saturday 1:00 PM EDT With: Carlos A PETERS MD Where: [facility] Patient Educationon 01-29-20 Patient Education Obstetrics and Gynecology Overactive Bladder, Adult Overactive bladder is a condition in which a person has a sudden and frequent need to urinate. A person might also leak urine if he or she cannot get to the bathroom fast enough (urinary incontinence). Sometimes, symptoms can interfere with work or social activities. What are the causes? Overactive bladder is associated with poor nerve signals between your bladder and your brain. Your bladder may get the signal to empty before it is full. You may also have very sensitive muscles that make your bladder squeeze too soon. This condition may also be caused by other factors, such as: ? Medical conditions: ? Urinary tract infection. ? Infection of nearby tissues. ? Prostate enlargement. ? Bladder stones, inflammation, or tumors. ? Diabetes. ? Muscle or nerve weakness, especially from these conditions: ? A spinal cord injury. ? Stroke. ? Multiple sclerosis. ? Parkinson's disease. ? Other causes: ? Surgery on the uterus or urethra. ? Drinking too much caffeine or alcohol. ? Certain medicines, especially those that eliminate extra fluid in the body (diuretics). ? Constipation. What increases the risk? You may be at greater risk for overactive bladder if you: ? Are an older adult. ? Smoke. ? Are going through menopause. ? Have prostate problems. ? Have a neurological disease, such as stroke, dementia, Parkinson's disease, or multiple sclerosis (MS). ? Eat or drink alcohol, spicy food, caffeine, and other things that irritate the bladder. ? Are overweight or obese. What are the signs or symptoms? Symptoms of this condition include a sudden, strong urge to urinate. Other symptoms include: ? Leaking urine. ? Urinating 8 or more times a day. ? Waking up to urinate 2 or more times overnight. How is this diagnosed? This condition may be diagnosed based on: ? Your symptoms and medical history. ? A physical exam. ? Blood or urine tests to check for possible causes, such as infection. You may also need to see a health care provider who specializes in urinary tract problems. This is called a urologist. How is this treated? Treatment for overactive bladder depends on the cause of your condition and whether it is mild or severe. Treatment may include: ? Bladder training, such as: ? Learning to control the urge to urinate by following a schedule to urinate at regular intervals. ? Doing Kegel exercises to strengthen the pelvic floor muscles that support your bladder. ? Special devices, such as: ? Biofeedback. This uses sensors to help you become aware of your body's signals. ? Electrical stimulation. This uses electrodes placed inside the body (implanted) or outside the body. These electrodes send gentle pulses of electricity to strengthen the nerves or muscles that control the bladder. ? Women may use a plastic device, called a pessary, that fits into the vagina and supports the bladder. ? Medicines, such as: ? Antibiotics to treat bladder infection. ? Antispasmodics to stop the bladder from releasing urine at the wrong time. ? Tricyclic antidepressants to relax bladder muscles. ? Injections of botulinum toxin type A directly into the bladder tissue to relax bladder muscles. ? Surgery, such as: ? A device may be implanted to help manage the nerve signals that control urination. ? An electrode may be implanted to stimulate electrical signals in the bladder. ? A procedure may be done to change the shape of the bladder. This is done only in very severe cases. Follow these instructions at home: Eating and drinking ? Make diet or lifestyle changes recommended by your health care provider. These may include: ? Drinking fluids throughout the day and not only with meals. ? Cutting down on caffeine or alcohol. ? Eating a healthy and balanced diet to prevent constipation. This may include: ? Choosing foods that are high in fiber, such as beans, whole grains, and fresh fruits and vegetables. ? Limiting foods that are high in fat and processed sugars, such as fried and sweet foods. Lifestyle ? Lose weight if needed. ? Do not use any products that contain nicotine or tobacco. These include cigarettes, chewing tobacco, and vaping devices, such as e-cigarettes. If you need help quitting, ask your health care provider. General instructions ? Take diuf-cjv-[id number] and prescription medicines only as told by your health care provider. ? If you were prescribed an antibiotic medicine, take it as told by your health care provider. Do not stop taking the antibiotic even if you start to feel better. ? Use any implants or pessary as told by your health care provider. ? If needed, wear pads to absorb urine leakage. ? Keep a log to track how much and when you drink, and when you need to urinate. This will help your health care provider monitor yo (more content not included)... [facility] Urology Office/Clinic Noteon 01-29-2024 Urology Office/Clinic Note HPI Staff 83 year old male here for frequency Previous Dx: Bph with luts *flomax 0.4mg qd by pcp *, Micro hematuria, Urinary frequency qd*, ED pt. states that the Flomax is not helping TURP done 2014 Dysuria: no Incomplete bladder emptying: no Hematuria: no Frequency: Urgency:severe Nocturia: 4x Stream: good stream Leaking: intermittent Post void dripping: no Wearing pads/ Depends: no Urge incontinence: no Stress incontinence: no Incontinence without Sensory Awareness: no Abdominal pain: no Flank pain: no Sexual complaints: no History of Present Illness Tests reviewed: reviewed UA. I have reviewed the previous health record information and history for this patient from Dr. Peters. I have reviewed and verified the staff HPI to be accurate for this encounter. There have been no associated fever, chills, flank pain, or blood in the urine. Denies any urinary infections since last encounter. Review of Systems ROS - Provider Constitutional: denies weight loss, denies hot flashes. Eyes: denies eye problems. Gastrointestinal: denies nausea, denies vomiting. Cardiovascular: denies chest pain or angina. Integumentary: no dryness Musculoskeletal: denies musculoskeletal symptoms. ENMT: denies otolaryngeal symptoms. Respiratory: no shortness of breath. Heme/Lymph: denies easy bleeding tendency, denies easy bruising tendency. Psychiatric: no confusion, no anxiety. Genitourinary: See HPI. Physical Exam General Appearance: alert, no distress, well nourished, well developed male. Assessment/Plan Pt here with today. 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 RICHY N/A. Portions of this record may have been created with voice recognition artificial intelligence software, specifically Lil[employer]uxe, [employer] and or toucanBox. Substitutions may have occurred due to the inherent limitations of voice recognition and artificial intelligence software. 1. OAB (overactive bladder) (N32.81: Overactive bladder) PVR (cc): 01/28/ - 27 Having severe urgency and getting up 4x per night. Minimal leakage. Has taken Oxybutynin in the past. No longer taking. States he stopped taking it due to no improvement. Discussed alternative OAB medications such as Myrbetriq. Pt advised that it could be cost prohibitive. Pt willing to trial to see if med is covered by insurance. Reports he used to drink 10-12 cups of coffee per day. States he drinks 0-1 cups now. Counseled pt on how bladder irritants affect urination. Literature provided today. PE: bladder nonpalpable, no CVA tenderness. -Script sent for Myrbetriq 50mg qd -Pt to call if cost prohibitive -F/up in 6 wks, cont sx monitoring 2. 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 prostatic hyperplasia with lower urinary tract symptoms) S/p TURP 2014. States this was done by Dr. Carrasquillo. UA today neg. IPSS 11. No longer taking Flomax due to no improvement. See #1. 3. Asymptomatic microscopic hematuria (R31.21: Asymptomatic microscopic hematuria) S/p cysto/UD 01/12/21. FISH/cytol 12/29/20 neg. UA today neg. Denies gross hematuria. Pt understands to call the office with visible blood in urine. The patient is here with his today. He has a history of a prostate resection in the distant past. Reviewing his IPSS score sheet, urinary flow problems do not exist. It is mainly urgency and problems sleeping. Bladder irritants sheet given. He states he has good urinary flow which seems to indicate good open bladder outlet status post TURP. He had tried oxybutynin in the past without much success and I have not seen him in several years. Will now start with a beta 3 agonist and the potential side effects have been discussed with him. Follow-up in about 6 to 8 weeks and he knows that he needs to be on the medication for at least 4 to 6 weeks to see if it is going to help. Follow-up With When Contact Information LORRAINE DAUGHERTY, Carlos A Hamilton, URL [address] [place] [phone] Additional Instructions: 6 wks Patient Education Overactive Bladder, Adult I, Alisson Saeed, personally scribed for Dr. Peters on 01/29/2024 14:46:11. . Documentation recorded by the scribeAlisson, accurately reflects the services(s) I performed and decisions made by me. Authenticated by Dr. Peters on 01/29/2024 14:49:34. Problem List/Past Medical History Ongoing Asymptomatic microscopic hematuria BPH with urinary obstruction Cigarette smoker COPD type B Delirium Dependent edema Diverticulosis of colon DM2 (diabetes mellitus, type 2) Essential hypertension Frequency of urination and polyuria Hypertension Lumbar spondylosis Mixed hyperlipidemia OAB (overactive bladder) Obesity due to excess calories Pneumonia Radial nerve palsy Urge incontinence Urinary frequency Urinary incontinence Historical 3-part fracture of surgical neck of left humerus, (more content not included)... [facility] Comment on above: Result Comment: Elec tronically Signed By: Carlos A PETERS MD\.br\Date and Time Signed: 01/29/24 14:50 EDT\.br\Electronically Co-Signed By: Alisson Saeed\.br\Date and Time Co-Signed: 01/29/24 14:46 EDT\.br\Electronically Co-Signed By: Alisson Saeed\.br\Date and Time Co-Signed: 01/29/24 14:47 EDT Basophils Auto (Bld) [#/Vol] on 01-16-2024 Basophils (Bld) [#/Vol] 0.0 10 3/uL 0.0-0.1 [facility] Basophils/100 WBC Auto (Bld) on 01-16-2024 Basophils/100 WBC (Bld) 0.8 % 0.2-2.0 [facility] Eosinophils/100 WBC Auto (Bl d)on 01-16-2024 Eosinophils/100 WBC (Bld) 1.5 % 0.9-7.0 [facility] Erythrocyte distribution wid th Auto (RBC) [Ratio]on 01-16-2024 Erythrocyte distribution width (RBC) [Ratio] 13.0 % 11.0-15.0 [facility] Estimated glomerular filtrat ion rate (GFR) non- Americanon 01-16-2024 GFR/1.73 sq M.predicted among non-blacks MDRD (S/P/Bld) [Vol rate/Area] 56 mL/min/{1.73_m2} >=60 [facility] Hematocrit Auto (Bld) [Volum e fraction]on 01-16-2024 Hematocrit (Bld) [Volume fraction] 39.5 % 42.0-54.0 [facility] Hemoglobin [Mass/volume] in Bloodon 01-16-2024 Hemoglobin (Bld) [Mass/Vol] 13.3 g/dL 14.0-18.0 [facility] Laboratory - Chemistry and C hemistry - challengeon 01-16-2024 Calcium [Mass/Vol] 9.1 mg/dL 8.5-10.1 [facility] Chloride [Moles/Vol] 100 mmol/L 98-107 [facility] CO2 [Moles/Vol] 32.5 mmol/L 21.0-32.0 [facility] Creatinine [Mass/Vol] 1.23 mg/dL 0.70-1.30 [facility] GFR/1.73 sq M.predicted MDRD (S/P/Bld) [Vol rate/Area] mL/min/{1.73_m2} >=60 [facility] Glucose [Mass/Vol] 244 mg/dL 74-106 [facility] Potassium [Moles/Vol] 4.7 mmol/L 3.5-5.1 [facility] Sodium [Moles/Vol] 137 mmol/L 136-145 [facility] Urea nitrogen [Mass/Vol] 15.0 mg/dL 7.0-18.0 [facility] Urea nitrogen/Creatinine [Mass ratio] 12.2 mg/mg [facility] Laboratory - Hematology and Cell countson 01-16-2024 Immature granulocytes/100 WBC (Bld) 0.2 % 0.0-0.5 [facility] Laboratory - Urinalysison Protein (U) [Mass/Vol] 32.8 mg/dL <=11.9 [facility] Leukocytes [#/volume] correc layton for nucleated erythrocytes in Blood by Automated counon 01-16-2024 WBC corrected for nucl RBC Auto (Bld) [#/Vol] 4.8 10 3/uL 4.0-11.0 [facility] Lymphocytes Auto (Bld) [#/Vo l]on 01-16-2024 Lymphocytes (Bld) [#/Vol] 0.9 10 3/uL 1.2-3.8 [facility] Lymphocytes/100 WBC Auto (Bl d)on 01-16-2024 Lymphocytes/100 WBC (Bld) 17.7 % 20.5-60.0 [facility] MCH Auto (RBC) [Entitic mass ]on 01-16-2024 MCH (RBC) [Entitic mass] 32.8 pg 25.9-34.0 [facility] MCHC Auto (RBC) [Mass/Vol]on 01-16-2024 MCHC (RBC) [Mass/Vol] 33.7 g/dL 29.9-35.2 [facility] MCV Auto (RBC) [Entitic vol] on 01-16-2024 MCV (RBC) [Entitic vol] 97.3 fL 80.0-94.0 [facility] Monocytes Auto (Bld) [#/Vol] on 01-16-2024 Monocytes (Bld) [#/Vol] 0.4 10 3/uL 0.3-0.8 [facility] Monocytes/100 WBC Auto (Bld) on 01-16-2024 Monocytes/100 WBC (Bld) 9.2 % 1.7-12.0 [facility] Neutrophils Auto (Bld) [#/Vo l]on 01-16-2024 Neutrophils (Bld) [#/Vol] 3.4 10 3/uL 1.4-6.5 [facility] Neutrophils/100 WBC Auto (Bl d)on 01-16-2024 Neutrophils/100 WBC (Bld) 70.6 % 43.0-75.0 [facility] No Panel Informationon 01-15 Eosinophils # (Auto) 0.1 10 3/uL 0.0-0.7 [facility] Immature Granulocyte # (Auto) 0.01 10 3/uL 0.00-0.03 [facility] Urine Random Creatinine 117.34 mg/dL 20.00-300. 00 [facility] Platelet mean volume Auto (B ld) [Entitic vol]on 01-16-2024 Platelet mean volume (Bld) [Entitic vol] 9.5 fL 9.5-13.5 [facility] Platelets Auto (Bld) [#/Vol] on 01-16-2024 Platelets (Bld) [#/Vol] 123 10 3/uL 150-450 [facility] RBC Auto (Bld) [#/Vol]on RBC (Bld) [#/Vol] 4.06 10 6/uL 4.70-6.10 [facility] Serum or plasma anion gap de terminationon 01-16-2024 Anion gap [Moles/Vol] 9.2 mmol/L [facility] Urine protein/creatinine rat ioon 01-16-2024 Protein/Creatinine (U) [Ratio] 0.28 [facility] Albumin [Mass/volume] in Ser um or Plasmaon 12-19-2023 Albumin [Mass/Vol] 3.9 g/dL 2.9-4.4 [facility] Basophils Auto (Bld) [#/Vol] on 12-19-2023 Basophils (Bld) [#/Vol] 0.0 10 3/uL 0.0-0.1 [facility] Basophils/100 WBC Auto (Bld) on 12-19-2023 Basophils/100 WBC (Bld) 0.6 % 0.2-2.0 [facility] Eosinophils/100 WBC Auto (Bl d)on 12-19-2023 Eosinophils/100 WBC (Bld) 1.1 % 0.9-7.0 [facility] Erythrocyte distribution wid th Auto (RBC) [Ratio]on 12-19-2023 Erythrocyte distribution width (RBC) [Ratio] 12.9 % 11.0-15.0 [facility] Estimated glomerular filtrat ion rate (GFR) non- Americanon 12-19-2023 GFR/1.73 sq M.predicted among non-blacks MDRD (S/P/Bld) [Vol rate/Area] 43 mL/min/{1.73_m2} >=60 [facility] Globulin Calc (S) [Mass/Vol] on 12-19-2023 Globulin (S) [Mass/Vol] 3.1 g/dL [facility] Glucose mean value [Mass/vol ume] in Blood Estimated from glycated hemoglobinon 12-19-2023 Average glucose Estimated from glycated hemoglobin (Bld) [Mass/Vol] 166 mg/dL [facility] Hematocrit Auto (Bld) [Volum e fraction]on 12-19-2023 Hematocrit (Bld) [Volume fraction] 38.3 % 42.0-54.0 [facility] Hemoglobin [Mass/volume] in Bloodon 12-19-2023 Hemoglobin (Bld) [Mass/Vol] 12.3 g/dL 14.0-18.0 [facility] IgA [Mass/volume] in Serum o r Plasmaon 12-19-2023 IgA [Mass/Vol] 112 mg/dL 61-437 [facility] IgG [Mass/volume] in Serum o r Plasmaon 12-19-2023 IgG [Mass/Vol] 805 mg/dL 603-1613 [facility] IgM [Mass/volume] in Serum o r Plasmaon 12-19-2023 IgM [Mass/Vol] 48 mg/dL 15-143 [facility] Immunoglobulin light chains. kappa.free [Mass/volume] in Serumon 12-19-2023 Immunoglobulin light chains.kappa.free (S) [Mass/Vol] 33.8 mg/L 3.3-19.4 [facility] Immunoglobulin light chains. kappa.free/Immunoglobulin light chains.lambda.free [Sandra 12-19-2023 Immunoglobulin light chains.kappa.free/Immuno globulin light chains.lambda.free (S) [Mass ratio] 1.61 0.26-1.65 [facility] Comment on above: Performed at: [address] [id number] Director: Juan José Butler PhD, Phone: [phone] Immunoglobulin light chains. lambda.free [Mass/volume] in Serum or Plasmaon 12-19-2023 Immunoglobulin light chains.lambda.free [Mass/Vol] 21.0 mg/L 5.7-26.3 [facility] Iron binding capacity [Mass/ volume] in Serum or Plasmaon 12-19-2023 Iron binding capacity [Mass/Vol] 294.0 ug/dL 250.0-450.0 [facility] Iron saturation [Mass Fracti on] in Serum or Plasmaon 12-19-2023 Iron saturation [Mass fraction] 26.9 % [facility] Laboratory - Chemistry and C hemistry - challengeon 12-19-2023 Albumin [Mass/Vol] 3.4 g/dL 3.4-5.0 [facility] ALP [Catalytic activity/Vol] 88 U/L 46-116 [facility] ALT [Catalytic activity/Vol] 36 U/L 16-63 [facility] AST [Catalytic activity/Vol] 14 U/L 15-37 [facility] Bilirubin [Mass/Vol] 0.3 mg/dL 0.2-1.0 [facility] Calcium [Mass/Vol] 9.3 mg/dL 8.5-10.1 [facility] Chloride [Moles/Vol] 102 mmol/L 98-107 [facility] CO2 [Moles/Vol] 31.6 mmol/L 21.0-32.0 [facility] Cobalamin (Vitamin B12) [Mass/Vol] 386.0 pg/mL 193.0-986.0 [facility] Creatinine [Mass/Vol] 1.55 mg/dL 0.70-1.30 [facility] Ferritin [Mass/Vol] 94.0 ng/mL 26.0-388.0 [facility] GFR/1.73 sq M.predicted MDRD (S/P/Bld) [Vol rate/Area] 52 mL/min/{1.73_m2} >=60 [facility] Glucose [Mass/Vol] 217 mg/dL 74-106 [facility] Iron [Mass/Vol] 79.0 ug/dL 65.0-175.0 [facility] Potassium [Moles/Vol] 5.0 mmol/L 3.5-5.1 [facility] Protein [Mass/Vol] 6.5 g/dL 6.4-8.2 [facility] Sodium [Moles/Vol] 141 mmol/L 136-145 [facility] TSH Qn 0.974 m[IU]/L 0.358-3.740 [facility] Urea nitrogen [Mass/Vol] 21.0 mg/dL 7.0-18.0 [facility] Urea nitrogen/Creatinine [Mass ratio] 13.5 mg/mg [facility] Laboratory - Hematology and Cell countson 12-19-2023 HbA1c (Bld) [Mass fraction] 7.4 % 4.5-6.2 [facility] Comment on above: ADA RECOMMENDED LIMI T 4.0 - 6.0ADA THERAPEUTIC TARGET < 7.0ACTION SUGGESTED> 7.0 Immature granulocytes/100 WBC (Bld) 0.2 % 0.0-0.5 [facility] Leukocytes [#/volume] correc layton for nucleated erythrocytes in Blood by Automated counon 12-19-2023 WBC corrected for nucl RBC Auto (Bld) [#/Vol] 5.4 10 3/uL 4.0-11.0 [facility] Lymphocytes Auto (Bld) [#/Vo l]on 12-19-2023 Lymphocytes (Bld) [#/Vol] 1.1 10 3/uL 1.2-3.8 [facility] Lymphocytes/100 WBC Auto (Bl d)on 12-19-2023 Lymphocytes/100 WBC (Bld) 20.0 % 20.5-60.0 [facility] MCH Auto (RBC) [Entitic mass ]on 12-19-2023 MCH (RBC) [Entitic mass] 32.0 pg 25.9-34.0 [facility] MCHC Auto (RBC) [Mass/Vol]on 12-19-2023 MCHC (RBC) [Mass/Vol] 32.1 g/dL 29.9-35.2 [facility] MCV Auto (RBC) [Entitic vol] on 12-19-2023 MCV (RBC) [Entitic vol] 99.7 fL 80.0-94.0 [facility] Monocytes Auto (Bld) [#/Vol] on 12-19-2023 Monocytes (Bld) [#/Vol] 0.5 10 3/uL 0.3-0.8 [facility] Monocytes/100 WBC Auto (Bld) on 12-19-2023 Monocytes/100 WBC (Bld) 9.2 % 1.7-12.0 [facility] Neutrophils Auto (Bld) [#/Vo l]on 12-19-2023 Neutrophils (Bld) [#/Vol] 3.7 10 3/uL 1.4-6.5 [facility] Neutrophils/100 WBC Auto (Bl d)on 12-19-2023 Neutrophils/100 WBC (Bld) 68.9 % 43.0-75.0 [facility] No Panel Informationon 12-18 C-Reactive Protein, Quantitative <0.50 mg/dL <=0.50 [facility] Eosinophils # (Auto) 0.1 10 3/uL 0.0-0.7 [facility] Folate 22.10 ng/mL 8.60-58.90 [facility] Immature Granulocyte # (Auto) 0.01 10 3/uL 0.00-0.03 [facility] Protein Electrophoresis M-Delfino Not Observed g/dL Not Observed [facility] Protein Electrophoresis Note Comment . [facility] Comment on above: Protein electrophore sis scan will follow via computer,mail, or bulb assembler delivery. Platelet mean volume Auto (B ld) [Entitic vol]on 12-19-2023 Platelet mean volume (Bld) [Entitic vol] 9.6 fL 9.5-13.5 [facility] Platelets Auto (Bld) [#/Vol] on 12-19-2023 Platelets (Bld) [#/Vol] 136 10 3/uL 150-450 [facility] Protein [Mass/volume] in Ser um or Plasmaon 12-19-2023 Protein [Mass/Vol] 6.2 g/dL 6.0-8.5 [facility] RBC Auto (Bld) [#/Vol]on RBC (Bld) [#/Vol] 3.84 10 6/uL 4.70-6.10 [facility] Serum globulin measurement ( mass/volume)on 12-19-2023 Globulin (S) [Mass/Vol] 2.3 g/dL 2.2-3.9 [facility] Serum or plasma albumin/glob ulin mass ratioon 12-19-2023 Albumin/Globulin [Mass ratio] 1.1 {ratio} [facility] Albumin/Globulin [Mass ratio] 1.7 {ratio} 0.7-1.7 [facility] Serum or plasma alpha 1 glob ulin measurement by electrophoresis (mass/volume)on 12-19-2023 Alpha 1 globulin Elph [Mass/Vol] 0.2 g/dL 0.0-0.4 [facility] Serum or plasma alpha 2 glob ulin measurement by electrophoresis (mass/volume)on 12-19-2023 Alpha 2 globulin Elph [Mass/Vol] 0.6 g/dL 0.4-1.0 [facility] Serum or plasma anion gap de terminationon 12-19-2023 Anion gap [Moles/Vol] 12.4 mmol/L [facility] Serum or plasma beta globuli n measurement by electrophoresis (mass/volume)on 12-19-2023 Beta globulin Elph [Mass/Vol] 0.8 g/dL 0.7-1.3 [facility] Serum or plasma gamma globul in measurement by electrophoresis (mass/volume)on 12-19-2023 Gamma globulin Elph [Mass/Vol] 0.7 g/dL 0.4-1.8 [facility] Serum or plasma immunoelectr ophoresis interpretationon 12-19-2023 Interpretation IEP [Interp] Comment . [facility] Comment on above: No monoclonality det ected. Office Visit (Cardiology)on 03-11-2023 Follow-up visit Diagnoses/Problems [...] in adult Healthy Weight Tips; Status:Complete; Done: [id number] Some eating tips that can help you lose weight.; Status:Complete; Done: [id number] Diabetes Hemoglobin A1C; Status:Canceled; Hyperlipidemia ALT - [...] today sinus rhythm 85 first-degree AV block NE interval 218 ms compared to EKG of 09/05/2022 heart rate has decreased. 1 Uses cane as ambulatory aid, no falls Surgical History Problems History of Arm surgery History of Cataract surgery History of Colon surgery History of Complete colonoscopy History of Tonsillectomy Current Meds Medication NameInstruction Acetaminophen 325 MG Or (more content not included)... Normal [employer] Tobacco Screening.on 023 Fall risk assessment a) No falls within the last year [facility] [place] [employer] DaWanda 250 DO Work Phone: Tobacco use status CPHS b) No [facility] [employer] [place] 250 DO Work Phone: Office Visit (Cardiology)on [...] Margie Garcia; Dec 17 2022 3:05 PM ESTChief Complaint JOSE L MAURICIO is being seen [...] was prompted by a hospital stay at [facility]. Patient was admitted in transfer from [facility], with hypoxemia cough congestion, treated for pneumonia, [...] affordable. Alternatively, will defer the decision of Farximisty or Jardiance to Dr. Joiner.1 1 Amended By: Cathleen [...] Glucose Klor- (more content not included)... Normal [employer] Tobacco Screening.on 023 Adult depression screening assessment No [facility] [employer] [place] 250 DO Work Phone: Fall risk assessment a) No falls within the last year [facility] [employer] [place] 250 DO Work Phone: Tobacco use status CPHS b) No [facility] [employer] [place] 250 DO Work Phone: [facility] CARDIAC STRESS/REST INJE CTIONon 12-11-2022 [facility] CARDIAC STRESS/REST INJECTION Patient Name: JOSE L MAURICIO STUDY: MYOCARDIAL PERFUSION STRESS TEST WITH LEXISCAN Performing facility: [facility], [address] [place] [address], [address] [place] [id number] [facility] Provider: Cathleen Lopez MD, [facility] PCP: Dr. 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 Diabetes; High Cholesterol; HTN; SOB; COPD; Quit smoking 2 years ago. COMPARISON: No comparison. ACCESSION NUMBER(S): [id number]; [id number]; [id number] ORDERING CLINICIAN: CATHLEEN LOPEZ TECHNIQUE: ONE DAY [...] Electronically signed by: IRINA HALL MD Normal [facility] No Panel Informationon 12-11 Normal -[facility] [place] 250 DO Work Phone: Office Visit (Cardiology)on [...] is being seen for CAD referral S/P [facility]. History of Present Illness 82-year-old with multiple [...] was prompted by a hospital stay at [facility]. Patient was admitted in transfer from [facility], with hypoxemia cough congestion, treated for pneumonia, [...] today sinus rhythm 85 first-degree AV block NE interval 218 ms compared to EKG of [...] further questions arise, Sincerely, Cathleen Lopez MD [facility] I told patient that he should bring his inhalers and use them prior to his perfusion study. Current (more content not included)... Normal [employer] Tobacco Screening.on 023 Adult depression screening assessment No [facility] [place] [employer] [place] 250 DO Work Phone: Fall risk assessment a) No falls within the last year [facility] [place] 250 DO Work Phone: Tobacco use status CPHS b) No [facility] [place] [employer] [place] 250 DO Work Phone: CHEMISTRYOrdered By: Lab ROP User on 09-19-2022 Glucose [Mass/Vol] 110 mg/dL High 55 - 99 mg/dL [facility] POC Subsection Comment on above: Result Comment: Na [employer]ra Meter POC Device SN [id number] Invalid Interpretation Code [facility] POC Subsection POC User ID [id number] Invalid Interpretation Code [facility] POC Subsection POC Username ADRIANA LOULOU Invalid Interpretation Code [facility] POC Subsection Glucose [Mass/Vol] 93 mg/dL Normal 55 - 99 mg/dL [facility] POC Subsection Comment on above: Result Comment: [employer] POC Device SN [id number] Invalid Interpretation Code [facility] POC Subsection POC User ID [id number] Invalid Interpretation Code [facility] POC Subsection POC Username KRISTEN SHEPPARD Invalid Interpretation Code [facility] POC Subsection CHEMISTRYOrdered By: Lab ROP User on 09-18-2022 Glucose [Mass/Vol] 187 mg/dL High 55 - 99 mg/dL [facility] POC Subsection Comment on above: Result Comment: [employer] M[employer] POC Device SN [id number] Invalid Interpretation Code [facility] POC Subsection POC User ID [id number] Invalid Interpretation Code [facility] POC Subsection POC Username KRISTEN SHEPPARD Invalid Interpretation Code [facility] POC Subsection CHEMISTRYOrdered By: SYSTEM SYSTEM on 09-17-2022 Anion gap [Moles/Vol] 14 mmol/L Normal 6 - 16 mEq/L F [facility] Remisol Calcium [Mass/Vol] 8.8 mg/dL Low 8.9 - 11. 1 mg/dL [facility] Remisol Chloride [Moles/Vol] 97 mmol/L Low 101 - 1 11 mmol/L [facility] CO2 [Moles/Vol] 28 mmol/L Normal 21 - 31 mmol/L [facility] Creatinine [Mass/Vol] 1.3 mg/dL Normal 0.5 - 1.3 mg/dL [facility] GFR/1.73 sq M.predicted among blacks MDRD (S/P/Bld) [Vol rate/Area] mL/min/1.73 m2 Normal >=59mL/min/1 .73 m2 [facility] Chem S GFR/1.73 sq M.predicted among non-blacks MDRD (S/P/Bld) [Vol rate/Area] 53 mL/min/1.73 m2 Low >=59mL/min/1 .73 m2 [facility] Chem S Glucose [Mass/Vol] 89 mg/dL Normal 55 - 199 mg/dL [facility] Potassium [Moles/Vol] 4.2 mmol/L Normal 3.5 - 5.3 mmol/L [facility] Sodium [Moles/Vol] 135 mmol/L Normal 135 - 145 mmol/L [facility] Urea nitrogen [Mass/Vol] 20 mg/dL Normal 5 - 21 mg/d L [facility] Urea nitrogen/Creatinine [Mass ratio] 15 mg/mg Normal 10 - 20 [facility] Remisol CHEMISTRYOrdered By: Omkar Angel on 09-17-2022 HbA1c (Bld) [Mass fraction] 9.8 % High <=5.9% [facility] ChemAutoSS CHEMISTRYOrdered By: SYSTEM SYSTEM on 09-10-2022 Anion gap [Moles/Vol] 11 mmol/L Normal 6 - 16 mEq/L F [facility] Remisol Calcium [Mass/Vol] 8.3 mg/dL Low 8.9 - 11. 1 mg/dL [facility] Chloride [Moles/Vol] 93 mmol/L Low 101 - 1 11 mmol/L [facility] CO2 [Moles/Vol] 32 mmol/L High 21 - 31 mmol/L [facility] Creatinine [Mass/Vol] 1.1 mg/dL Normal 0.5 - 1.3 mg/dL [facility] GFR/1.73 sq M.predicted among blacks MDRD (S/P/Bld) [Vol rate/Area] mL/min/1.73 m2 Normal >=59mL/min/1 .73 m2 [facility] Chem S GFR/1.73 sq M.predicted among non-blacks MDRD (S/P/Bld) [Vol rate/Area] mL/min/1.73 m2 Normal >=59mL/min/1 .73 m2 [facility] Chem S Glucose [Mass/Vol] 281 mg/dL High 55 - 199 mg/dL [facility] Potassium [Moles/Vol] 4.3 mmol/L Normal 3.5 - 5.3 mmol/L [facility] Sodium [Moles/Vol] 132 mmol/L Low 135 - 145 mmol/L [facility] Remisol Urea nitrogen [Mass/Vol] 24 mg/dL High 5 - 21 mg/d L [facility] Remisol Urea nitrogen/Creatinine [Mass ratio] 22 mg/mg High 10 - 20 [facility] Remisol HEMATOLOGYOrdered By: SYSTEM SYSTEM on 09-10-2022 Basophils/100 [...] 5.0 E9/L Normal 2.0 - 7.5 E9/L [facility] HemeAutoSS HEMATOLOGYOrdered By: Chrissy Orosco on 09-10-2022 Erythrocyte distribution width (RBC) [Ratio] 13.9 % Normal 10.9 - 14.2 % [facility] HemeAutoSS Hematocrit (Bld) [Volume fraction] 40.7 % Normal 37.7 - 49.0 % [facility] HemeAutoSS Hemoglobin (Bld) [Mass/Vol] 13.6 g/dL Normal 13.5 - 17.5 gm/dL [facility] HemeAutoSS MCH (RBC) [Entitic mass] 30.5 pg Normal 27. 0 - 34.0 pg [facility] [employer]eAutoSS MCHC (RBC) [Mass/Vol] 33.5 g/dL Normal 31.4 - 36.0 gm/dL [facility] [employer]eAutoSS MCV (RBC) [Entitic vol] 91.1 fL Normal 80.0 - 100.0 fL [facility] HemeAutoSS Platelet mean volume (Bld) [Entitic vol] 8.0 fL Normal 6.4 - 10.8 fL [facility] [employer] Platelets (Bld) [#/Vol] 218.0 E9/L Normal 150. 0 - 500.0 E9/L [facility] [employer] RBC (Bld) [#/Vol] 4.5 E12/L Normal 4.3 - 5.9 E12/L [facility] [employer] WBC corrected for nucl RBC Auto (Bld) [#/Vol] 6.3 E9/L Normal 4.0 - 11.0 E9/L [facility] HemeAutoSS Basic Metabolic Panelon Anion gap [Moles/Vol] 7.5 mmol/L Normal 6.0-15.0 [facility] Comment on above: Performed By: #### G LULS #### Point of Care testing , Calcium [Mass/Vol] 7.9 mg/dL Low 8.2-10.2 [facility] Comment on above: Performed By: #### G LULS #### Point of Care testing , Chloride [Moles/Vol] 98 mmol/L Normal 95-114 [facility] Comment on above: Performed By: #### G LULS #### Point of Care testing , CO2 [Moles/Vol] 31.9 mmol/L High 22.0-30.0 [facility] Comment on above: Performed By: #### G LULS #### Point of Care testing , Creatinine [Mass/Vol] 1.12 mg/dL Normal 0.64-1.27 [facility] Comment on above: Performed By: #### G LULS #### Point of Care testing , Creatinine Clr Calc Pharmacy 62.70 [facility] Comment on above: Result Comment: PERF ORMED BY: [facility] [address] [place] [address] PATHOLOGIST GREEN CHAIN PULLER CLARENCE MARTINO M.D. Performed By: #### G LULS #### Point of Care testing , Estimated GFR ( [place] > 60 [facility] Comment on above: Result Comment: GFR estimated reference range: According to KDOQI guidelines, <60 ml/min/1.73m2 is sufficient to diagnose a patient with chronic kidney disease. Performed By: #### G LULS #### Point of Care testing , Estimated GFR (Non- Am > 60 [facility] Comment on above: Performed By: #### G LULS #### Point of Care testing , Glucose [Mass/Vol] 170 mg/dL High 70-100 [facility] Comment on above: Result Comment: [place] Glucose Reference Range is dependent on time and content of last meal. Glucose of more than 200 mg/dL in a nonstressed, ambulatory subject supports the diagnosis of Diabetes Mellitus. ADA recommended reference range Performed By: #### G LULS #### Point of Care testing , Potassium [Moles/Vol] 3.4 mmol/L Significan t change down 3.5-5.1 [facility] Comment on above: Performed By: #### G LULS #### Point of Care testing , Sodium [Moles/Vol] 134 mmol/L Low 136-146 [facility] Comment on above: Performed By: #### G LULS #### Point of Care testing , Urea nitrogen [Mass/Vol] 22 mg/dL Normal 9-23 [facility] Comment on above: Performed By: #### G LULS #### Point of Care testing , COVID-19 Antigenon COVID-19 Antigen Healthcare Worker?: N Reference Range: [...] developed and its performance characteristic determined by [employer] and validated at [facility]. This test has not been FDA cleared [...] for SARS Antigen by DAVE PERFORMED BY: [place] [address] [place] [address] PATHOLOGIST GREEN CHAIN PULLER CLARENCE MARTINO M.D. Normal [facility] Comment on above: Performed By: #### G LULS #### Point of Care testing , COVID-19 SOFIAOrdered By: Ra daryl Velasquez on 09-08-2022 SARS-CoV+SARS-CoV-2 (COVID-19) Ag IA.rapid Ql (Resp) Negative Negative [facility] Comment on above: This is a duplicate [employer] SARS Antigen (DAVE) result to be used for statistical tracking purpose only. Creatinine and Glomerular fi ltration rate.predicted panel (S/P/Bld)Ordered By: Randolph Velasquez on 09-08-2022 Creatinine [Mass/Vol] 1.12 mg/dL 0.64-1.27 [facility] Estimated glomerular filtrat ion rate (GFR) non- AmericanOrdered By: Randolph Velasquez on 09-08-2022 GFR/1.73 sq M.predicted among non-blacks MDRD (S/P/Bld) [Vol rate/Area] > 60 mL/Min [facility] Glucose Glucometer (BldC) [M ass/Vol]Ordered By: Randolph Velasquez on 09-08-2022 Glucose [Mass/Vol] 342 mg/dL [facility] Comment on above: Random Glucose Refer ence Range is dependent on time and content of last meal. Glucose of more than 200 mg/dL in a nonstressed, ambulatory subject supports the diagnosis of Diabetes Mellitus. Glucose Poct Glucometerson 0 09-08-2022 Glucose [Mass/Vol] 342 mg/dL Normal [facility] Comment on above: Result Comment: [place] om Glucose Reference Range is dependent on time and content of last meal. Glucose of more than 200 mg/dL in a nonstressed, ambulatory subject supports the diagnosis of Diabetes Mellitus. PERFORMED BY: [facility] [address] [place] [address] PATHOLOGIST GREEN CHAIN PULLER CLARENCE MARTINO M.D. Performed By: #### G LULS #### Point of Care testing , Glucose [Mass/Vol] 179 mg/dL Normal [facility] Comment on above: Result Comment: [place] Glucose Reference Range is dependent on time and content of last meal. Glucose of more than 200 mg/dL in a nonstressed, ambulatory subject supports the diagnosis of Diabetes Mellitus. PERFORMED BY: [facility] [address] [place] [address] PATHOLOGIST GREEN CHAIN PULLER CLARENCE MARTINO M.D. Performed By: #### B MP, LACTIC, BNP, HS TROP, DIFF CBC #### [facility] [address] No Panel InformationOrdered By: Randolph Velasquez on 09-08-2022 SARS Antigen (LFIA) [facility] Estimated GFR () > 60 mL/Min [facility] Comment on above: GFR estimated refere nce range: According to KDOQI guidelines, <60 ml/min/1.73m2 is sufficient to diagnose a patient with chronic kidney disease. Pharmacy Creatinine Clearance (Chem 62.70 [facility] Serum or plasma anion gap de terminationOrdered By: Randolph Velasquez on 09-08-2022 Anion gap [Moles/Vol] 7.5 mmol/L 6.0-15.0 [facility] Serum or plasma calcium [place] urement (mass/volume)Ordered By: Randolph Velasquez on 09-08-2022 Calcium [Mass/Vol] 7.9 mg/dL 8.2-10.2 [facility] Serum or plasma chloride kathy surement (moles/volume)Ordered By: Randolph Velasquez on 09-08-2022 Chloride [Moles/Vol] 98 mmol/L 95-114 [facility] Serum or plasma glucose [place] urement (mass/volume)Ordered By: Randolph Velasquez on 09-08-2022 Glucose [Mass/Vol] 170 mg/dL 70-100 [facility] Comment on above: ADA recommended refe rence rangeRandom Glucose Reference Range is dependent on time and content of last meal. Glucose of more than 200 mg/dL in a nonstressed, ambulatory subject supports the diagnosis of Diabetes Mellitus. Serum or plasma potassium me asurement (moles/volume)Ordered By: Randolph Velasquez on 09-08-2022 Potassium [Moles/Vol] 3.4 mmol/L 3.5-5.1 [facility] Comment on above: Delta: 4.9 on Serum or plasma sodium measu rement (moles/volume)Ordered By: Randolph Velasquez on 09-08-2022 Sodium [Moles/Vol] 134 mmol/L 136-146 [facility] Serum or plasma total carbon dioxide measurement (moles/volume)Ordered By: Randolph Velasquez on 09-08-2022 CO2 [Moles/Vol] 31.9 mmol/L 22.0-30.0 [facility] Serum or plasma urea nitroge n measurement (mass/volume)Ordered By: Randolph Velasquez on 09-08-2022 Urea nitrogen [Mass/Vol] 22 mg/dL 9-23 [facility] Ky[employer] Ag Negativeon 09-08-19 Ky[employer] Ag Negative Negative Normal Negative [facility] Comment on above: Result Comment: This is a duplicate [employer] SARS Antigen (DAVE) result to be used for statistical tracking purpose only. PERFORMED BY: [facility] [place] [address] PATHOLOGIST GREEN CHAIN PULLER CLARENCE MARTINO M.D. Performed By: #### G LULS #### Point of Care testing , Automated erythrocytes count in urine sediment (number/area)Ordered By: Randolph Velasquez on 09-07-2022 RBC Auto (Urine sed) [#/Area] Innumerable [HPF] 0-4 [facility] Automated leukocytes count i n urine sediment (number/area)Ordered By: Randolph Velasquez on 09-07-2022 WBC Auto (Urine sed) [#/Area] 1-2 [HPF] 0-4 [facility] Basic Metabolic Panelon Anion gap [Moles/Vol] 15.7 mmol/L High 6.0-15.0 [facility] Comment on above: Performed By: #### G LULS #### Point of Care testing , Calcium [Mass/Vol] 8.4 mg/dL Normal 8.2-10.2 [facility] Comment on above: Performed By: #### G LULS #### Point of Care testing , Chloride [Moles/Vol] 97 mmol/L Normal 95-114 [facility] Comment on above: Performed By: #### G LULS #### Point of Care testing , CO2 [Moles/Vol] 31.2 mmol/L High 22.0-30.0 [facility] Comment on above: Performed By: #### G LULS #### Point of Care testing , Creatinine [Mass/Vol] 1.21 mg/dL Normal 0.64-1.27 [facility] Comment on above: Performed By: #### G LULS #### Point of Care testing , Creatinine Clr Calc Pharmacy 58.03 [facility] Comment on above: Result Comment: PERF ORMED BY: [facility] [address] [place] [address] PATHOLOGIST GREEN CHAIN PULLER CLARENCE MARTINO M.D. Performed By: #### G LULS #### Point of Care testing , Estimated GFR ( [place] > 60 [facility] Comment on above: Result Comment: GFR estimated reference range: According to KDOQI guidelines, <60 ml/min/1.73m2 is sufficient to diagnose a patient with chronic kidney disease. Performed By: #### G LULS #### Point of Care testing , Estimated GFR (Non- Am 57 [facility] Comment on above: Performed By: #### G LULS #### Point of Care testing , Glucose [Mass/Vol] 220 mg/dL High 70-100 [facility] Comment on above: Result Comment: [place] Glucose Reference Range is dependent on time and content of last meal. Glucose of more than 200 mg/dL in a nonstressed, ambulatory subject supports the diagnosis of Diabetes Mellitus. ADA recommended reference range Performed By: #### G LULS #### Point of Care testing , Potassium [Moles/Vol] 4.9 mmol/L Normal 3.5-5.1 [facility] Comment on above: Performed By: #### G LULS #### Point of Care testing , Sodium [Moles/Vol] 139 mmol/L Normal 136-146 [facility] Comment on above: Performed By: #### G LULS #### Point of Care testing , Urea nitrogen [Mass/Vol] 30 mg/dL High 9-23 [facility] Comment on above: Performed By: #### G LULS #### Point of Care testing , Basophils Auto (Bld) [#/Vol] Ordered By: Randolph Velasquez on 09-07-2022 Basophils (Bld) [#/Vol] 0.0 10*3/uL 0.0-0.2 [facility] Basophils/100 WBC Auto (Bld) Ordered By: Randolph Velasquez on 09-07-2022 Basophils/100 WBC (Bld) 0.3 % . [facility] Bilirubin Test strip Ql (U)O rdered By: Randolph Velasquez on 09-07-2022 Bilirubin Ql (U) Negative Negative [facility] Color Auto (U)Ordered By: Ra daryl Velasquez on 09-07-2022 Color (U) Yellow Yellow [facility] Dipstick and Microscopicon 0 09-07-2022 Appearance (U) Clear Normal Clear [facility] Comment on above: Order Comment: Name Collection Type:: Lewis Catheter Performed By: #### G LULS #### Point of Care testing , Bacteria,Urine None Seen Normal None Seen [facility] Comment on above: Order Comment: Name Collection Type:: Lewis Catheter Performed By: #### G LULS #### Point of Care testing , Bilirubin,Urine Negative Normal Negative [facility] Comment on above: Order Comment: Name Collection Type:: Lewis Catheter Performed By: #### G LULS #### Point of Care testing , Color (U) Yellow Normal [facility] Comment on above: Order Comment: Name Collection Type:: Lewis Catheter Performed By: #### G LULS #### Point of Care testing , Glucose Ql (U) >=1000 High Normal [facility] Comment on above: Order Comment: Name Collection Type:: Lewis Catheter Performed By: #### G LULS #### Point of Care testing , Hyaline Casts,Urine 0-8 Normal 0-8 [facility] Comment on above: Order Comment: Name Collection Type:: Lewis Catheter Result Comment: PERF ORMED BY: [facility] [address] [place] [address] PATHOLOGIST GREEN CHAIN PULLER CLARENCE MARTINO M.D. Performed By: #### G LULS #### Point of Care testing , Ketones Ql (U) Trace High Negative [facility] Comment on above: Order Comment: Name Collection Type:: Lewis Catheter Performed By: #### G LULS #### Point of Care testing , Leukocyte esterase Test strip Ql (U) 1+ High Negative [facility] Comment on above: Order Comment: Name Collection Type:: Lewis Catheter Performed By: #### G LULS #### Point of Care testing , Nitrite,Urine Negative Normal Negative [facility] Comment on above: Order Comment: Name Collection Type:: Lewis Catheter Performed By: #### G LULS #### Point of Care testing , Occult Blood,Urine 3+ High Negative [facility] Comment on above: Order Comment: Name Collection Type:: Lewis Catheter Result Comment: PERF ORMED BY: [facility] [address] [place] [address] PATHOLOGIST GREEN CHAIN PULLER CLARENCE MARTINO M.D. Performed By: #### G LULS #### Point of Care testing , pH (U) 5.5 [pH] Normal 5.0-9.0 [facility] Comment on above: Order Comment: Name Collection Type:: Lewis Catheter Performed By: #### G LULS #### Point of Care testing , Protein (U) [Mass/Vol] 100 mg/dL High Negative [facility] Comment on above: Order Comment: Name Collection Type:: Lewis Catheter Performed By: #### G LULS #### Point of Care testing , RBC,Urine Innumerable High 0-4 [facility] Comment on above: Order Comment: Name Collection Type:: Lewis Catheter Performed By: #### G LULS #### Point of Care testing , Specificy [place],Urine 1.030 Normal 1.001-1.030 [facility] Comment on above: Order Comment: Name Collection Type:: Lewis Catheter Performed By: #### G LULS #### Point of Care testing , Squamous Epithelial Cell,Urine None Seen Normal 0-2 [facility] Comment on above: Order Comment: Name Collection Type:: Lewis Catheter Performed By: #### G LULS #### Point of Care testing , Urobilinogen,Urine Normal Normal Normal [facility] Comment on above: Order Comment: Name Collection Type:: Lewis Catheter Performed By: #### G JESENIA #### Point of Care testing , WBC,Urine 1-2 Normal 0-4 [facility] Comment on above: Order Comment: Name Collection Type:: Lewis Catheter Performed By: #### G JESENIA #### Point of Care testing , Eosinophils Auto (Bld) [#/Vo l]Ordered By: Randolph Velasquez on 09-07-2022 Eosinophils (Bld) [#/Vol] 0.0 10*3/uL 0.0-0.45 [facility] Eosinophils/100 WBC Auto (Bl d)Ordered By: Randolph Velasquez on 09-07-2022 Eosinophils/100 WBC (Bld) 0.0 % . [facility] Erythrocyte distribution wid th Auto (RBC) [Ratio]Ordered By: Randolph Velasquez on 09-07-2022 Erythrocyte distribution width (RBC) [Ratio] 13.9 % 12.0-14.8 [facility] Glucose Poct Glucometerson 0 09-07-2022 Commemt1 Normal [facility] Comment on above: Result Comment: Glu2 : Will Repeat Test Performed By: #### B MP, LACTIC, BNP, HS TROP, DIFF CBC #### [facility] [address] Commemt2 Cleaned Meter Normal [facility] Comment on above: Result Comment: PERF ORMED BY: [place] [address] PATHOLOGIST GREEN CHAIN PULLER CLARENCE MARTINO M.D. Performed By: #### B MP, LACTIC, BNP, HS TROP, DIFF CBC #### [facility] [address] [place] [address] [place] Glucose [Mass/Vol] 428 mg/dL Off scale high [facility] Comment on above: Result Comment: [place] Glucose Reference Range is dependent on time and content of last meal. Glucose of more than 200 mg/dL in a nonstressed, ambulatory subject supports the diagnosis of Diabetes Mellitus. Performed By: #### B MP, LACTIC, BNP, HS TROP, DIFF CBC #### [address] Commemt1 Glu2: Cleaned Meter Normal [facility] Comment on above: Result Comment: PERF ORMED BY: [place] [address] PATHOLOGIST GREEN CHAIN PULLER CLARENCE MARTINO M.D. Performed By: #### G LULS #### Point of Care testing , Glucose [Mass/Vol] 277 mg/dL Normal [facility] Comment on above: Result Comment: [place] Glucose Reference Range is dependent on time and content of last meal. Glucose of more than 200 mg/dL in a nonstressed, ambulatory subject supports the diagnosis of Diabetes Mellitus. Performed By: #### G LULS #### Point of Care testing , Glucose [Mass/Vol] 355 mg/dL Normal [facility] Comment on above: Result Comment: [place] Glucose Reference Range is dependent on time and content of last meal. Glucose of more than 200 mg/dL in a nonstressed, ambulatory subject supports the diagnosis of Diabetes Mellitus. PERFORMED BY: [place] [address] PATHOLOGIST GREEN CHAIN PULLER CLARENCE MARTINO M.D. Performed By: #### G LULS #### Point of Care testing , Glucose [Mass/Vol] 235 mg/dL Normal [facility] Comment on above: Result Comment: [place] Glucose Reference Range is dependent on time and content of last meal. Glucose of more than 200 mg/dL in a nonstressed, ambulatory subject supports the diagnosis of Diabetes Mellitus. PERFORMED BY: [place] [address] PATHOLOGIST GREEN CHAIN PULLER CLARENCE MARTINO M.D. Performed By: #### G LULS #### Point of Care testing , Glucose [Mass/Vol] 399 mg/dL Normal [facility] Comment on above: Result Comment: [place] Glucose Reference Range is dependent on time and content of last meal. Glucose of more than 200 mg/dL in a nonstressed, ambulatory subject supports the diagnosis of Diabetes Mellitus. PERFORMED BY: [facility] [address] [place] [address] PATHOLOGIST GREEN CHAIN PULLER CLARENCE MARTINO M.D. Performed By: #### B MP, LACTIC, BNP, HS TROP, DIFF CBC #### [facility] [address] Hematocrit Auto (Bld) [Volum e fraction]Ordered By: Randolph Velasquez on 09-07-2022 Hematocrit (Bld) [Volume fraction] 38.6 % 38.8-50.0 [facility] Hemoglobin [Mass/volume] in BloodOrdered By: Randolph Velasquez on 09-07-2022 Hemoglobin (Bld) [Mass/Vol] 12.6 g/dL 13.0-17.0 [facility] Ketones Auto test strip (U) [Mass/Vol]Ordered By: Randolph Velasquez on 09-07-2022 Ketones (U) [Mass/Vol] Trace Negative [facility] Laboratory - UrinalysisOrder ed By: Randolph Velasquez on 09-07-2022 Hyaline casts LM Ql (Urine sed) 0-8 [LPF] 0-8 [facility] Leukocytes [#/volume] correc layton for nucleated erythrocytes in Blood by Automated counOrdered By: Randolph Velsaquez on 09-07-2022 WBC corrected for nucl RBC Auto (Bld) [#/Vol] 13.0 10*3/uL 4.1-10.5 [facility] Lymphocytes Auto (Bld) [#/Vo l]Ordered By: Randolph Velasquez on 09-07-2022 Lymphocytes (Bld) [#/Vol] 0.5 10*3/uL 1.00-4.8 [facility] Lymphocytes/100 WBC Auto (Bl d)Ordered By: Randolph Velasquez on 09-07-2022 Lymphocytes/100 WBC (Bld) 3.6 % . [facility] MCH Auto (RBC) [Entitic mass ]Ordered By: Randolph Velasquez on 09-07-2022 MCH (RBC) [Entitic mass] 30.2 pg 27.5-35.2 [facility] MCHC Auto (RBC) [Mass/Vol]Or dered By: Randolph Velasquez on 09-07-2022 MCHC (RBC) [Mass/Vol] 32.7 g/dL 32.5-35.6 [facility] MCV Auto (RBC) [Entitic vol] Ordered By: Randolph Velasquez on 09-07-2022 MCV (RBC) [Entitic vol] 92.1 fL 83.5-101 [facility] Monocytes Auto (Bld) [#/Vol] Ordered By: Randolph Velasquez on 09-07-2022 Monocytes (Bld) [#/Vol] 0.6 10*3/uL 0.0-0.8 [facility] Monocytes/100 WBC Auto (Bld) Ordered By: Randolph Velasquez on 09-07-2022 Monocytes/100 WBC (Bld) 4.5 % . [facility] Neutrophils Auto (Bld) [#/Vo l]Ordered By: Randoplh Velasquez on 09-07-2022 Neutrophils (Bld) [#/Vol] 11.9 10*3/uL 1.8-7.7 [facility] Neutrophils/100 WBC Auto (Bl d)Ordered By: Randolph Velasquez on 09-07-2022 Neutrophils/100 WBC (Bld) 91.6 % . [facility] Nitrite Test strip Ql (U)Ord ered By: Randolph Velasquez on 09-07-2022 Nitrite Ql (U) Negative Negative [facility] No Panel InformationOrdered By: Randolph Velasquez on 09-07-2022 Bedside Glucose #2 Comment Cleaned meter [facility] Bedside Glucose Comment See comment [facility] Comment on above: Glu2: Will Repeat Te st Nucleated erythrocytes [Pres ence] in Blood by Automated countOrdered By: Randolph Velasquez on 09-07-2022 Nucleated RBC Auto Ql (Bld) 0.0 /100{WBC} 0-0.5 [facility] Platelet adequacy [Presence] in Blood by Light microscopyOrdered By: Randolph Velasquez on 09-07-2022 Platelets LM Ql (Bld) Normal Normal [facility] Platelet mean volume Auto (B ld) [Entitic vol]Ordered By: Randolph Velasquez on 09-07-2022 Platelet mean volume (Bld) [Entitic vol] 8.3 fL 6.6-10.1 [facility] Platelet morphology finding [Identifier] in BloodOrdered By: Randolph Velasquez on 09-07-2022 Platelet morphology finding Nom (Bld) Normal Normal [facility] Platelets Auto (Bld) [#/Vol] Ordered By: Randolph Velasquez on 09-07-2022 Platelets (Bld) [#/Vol] 227 10*3/uL 150-450 [facility] Protein Auto test strip (U) [Mass/Vol]Ordered By: Randolph Velasquez on 09-07-2022 Protein (U) [Mass/Vol] 100 mg/dL Negative [facility] RBC Auto (Bld) [#/Vol]Ordere d By: Randolph Velasquez on 09-07-2022 RBC (Bld) [#/Vol] 4.19 10*6/uL 3.90-5.60 [facility] RBC morphologyOrdered By: Ra daryl Velasquez on 09-07-2022 RBC morphology finding Nom (Bld) Normal Normal [facility] Scan and CBCon 09-07-2022 Basophils (Bld) [#/Vol] 0.0 10*3/uL Normal 0.0-0.2 [facility] Comment on above: Performed By: #### G LULS #### Point of Care testing , Basophils/100 WBC (Bld) 0.3 % Normal . [facility] Comment on above: Performed By: #### G LULS #### Point of Care testing , Eosinophils (Bld) [#/Vol] 0.0 10*3/uL Normal 0.0-0.45 [facility] Comment on above: Performed By: #### G LULS #### Point of Care testing , Eosinophils/100 WBC (Bld) 0.0 % Normal . [facility] Comment on above: Performed By: #### G LULS #### Point of Care testing , Erythrocyte distribution width (RBC) [Ratio] 13.9 % Normal 12.0-14.8 [facility] Comment on above: Performed By: #### G KRYSTALLS #### Point of Care testing , Hematocrit (Bld) [Volume fraction] 38.6 % Low 38.8-50.0 [facility] Comment on above: Performed By: #### G KRYSTALLS #### Point of Care testing , Hemoglobin (Bld) [Mass/Vol] 12.6 g/dL Low 13.0-17.0 [facility] Comment on above: Performed By: #### G LULS #### Point of Care testing , Lymphocytes (Bld) [#/Vol] 0.5 10*3/uL Low 1.00-4.8 [facility] Comment on above: Performed By: #### G KRYSTALLS #### Point of Care testing , Lymphocytes/100 WBC (Bld) 3.6 % Normal . [facility] Comment on above: Performed By: #### G LULS #### Point of Care testing , MCH (RBC) [Entitic mass] 30.2 pg Normal 27.5-35.2 [facility] Comment on above: Performed By: #### G KRYSTALLS #### Point of Care testing , MCV (RBC) [Entitic vol] 92.1 fL Normal 83.5-101 [facility] Comment on above: Performed By: #### G LULS #### Point of Care testing , Mean Corpuscular HGB Conc 32.7 g/dL Normal 32.5-35.6 [facility] Comment on above: Performed By: #### G LULS #### Point of Care testing , Monocytes (Bld) [#/Vol] 0.6 10*3/uL Normal 0.0-0.8 [facility] Comment on above: Performed By: #### G LULS #### Point of Care testing , Monocytes/100 WBC (Bld) 4.5 % Normal . [facility] Comment on above: Performed By: #### G LULS #### Point of Care testing , Neutrophils (Bld) [#/Vol] 11.9 10*3/uL High 1.8-7.7 [facility] Comment on above: Performed By: #### G LULS #### Point of Care testing , Neutrophils/100 WBC (Bld) 91.6 % Normal . [facility] Comment on above: Performed By: #### G LULS #### Point of Care testing , NRBC% 0.0 /100{WBC} Normal 0-0.5 [facility] Comment on above: Performed By: #### G LULS #### Point of Care testing , Platelet Estimate Normal Normal Normal [facility] Comment on above: Performed By: #### G LULS #### Point of Care testing , Platelet mean volume (Bld) [Entitic vol] 8.3 fL Normal 6.6-10.1 [facility] Comment on above: Performed By: #### G LULS #### Point of Care testing , Platelet Morphology Normal Normal Normal [facility] Comment on above: Result Comment: PERF ORMED BY: [facility] [address] [place] [address] PATHOLOGIST GREEN CHAIN PULLER CLARENCE MARTINO M.D. Performed By: #### G KRYSTALLS #### Point of Care testing , Platelets (Bld) [#/Vol] 227 10*3/uL Normal 150-450 [facility] Comment on above: Performed By: #### G LULS #### Point of Care testing , RBC (Bld) [#/Vol] 4.19 10*6/uL Normal 3.90-5.60 [facility] Comment on above: Performed By: #### G LULS #### Point of Care testing , RBC morphology finding Nom (Bld) Normal Normal Normal [facility] Comment on above: Performed By: #### G LULS #### Point of Care testing , WBC (Bld) [#/Vol] 13.0 10*3/uL High 4.1-10.5 [facility] Comment on above: Performed By: #### G LULS #### Point of Care testing , Specific gravity Auto test s trip (U) [Rel density]Ordered By: Randolph Velasquez on 09-07-2022 Specific gravity (U) [Rel density] 1.030 1.001-1.030 [facility] Squamous epithelial cells de tection in urine sediment by light microscopyOrdered By: Randolph Velasquez on 09-07-2022 Epithelial cells.squamous LM Ql (Urine sed) None seen [HPF] 0-2 [facility] Urine bacteria detection by automated methodOrdered By: Randolph Velasquez on 09-07-2022 Bacteria Auto Ql (U) None seen None Seen [facility] Urine clarity by refractomet ry automatedOrdered By: Randolph Velasquez on 09-07-2022 Clarity Refractometry automated (U) Clear Clear [facility] Urine glucose measurement by automated test strip (mass/volume)Ordered By: Randolph Velasquez on 09-07-2022 Glucose Auto test strip (U) [Mass/Vol] >=1000 mg/dL Normal [facility] Urine hemoglobin detection b y automated test stripOrdered By: Randolph Velasquez on 09-07-2022 Hemoglobin Auto test strip Ql (U) 3+ Negative [facility] Urine leukocyte esterase det ection by automated test stripOrdered By: Randolph Velasquez on 09-07-2022 Leukocyte esterase Auto test strip Ql (U) 1+ Negative [facility] Urobilinogen Auto test strip (U) [Mass/Vol]Ordered By: Randolph Velasquez on 09-07-2022 Urobilinogen (U) [Mass/Vol] Normal mg/dL Normal [facility] WBC Auto (Bld) [#/Vol]Ordere d By: Randolph Velasquez on 09-07-2022 WBC (Bld) [#/Vol] 13.0 10*3/uL 4.1-10.5 [facility] pH Auto test strip (U)Ordere d By: Randolph Velasquez on 09-07-2022 pH (U) 5.5 [pH] 5.0-9.0 [facility] Aerobic Cultureon 09-06-2022 Aerobic Culture Light Normal Respiratory Nadine 2 Days Gram Stain Result 1+ White Blood Cells 1+ Epithelial Cells Rare Gram Positive Cocci Rare Gram Positive Bacilli PERFORMED BY: [facility] [place] [address] PATHOLOGIST GREEN CHAIN PULLER CLARENCE MARTINO M.D. [facility] Comment on above: Performed By: #### G LULS #### Point of Care testing , Glucose Poct Glucometerson 0 09-06-2022 Commemt1 Glu2: Cleaned Meter [facility] Comment on above: Performed By: #### B MP, LACTIC, BNP, HS TROP, DIFF CBC #### [address] Commemt2 WILL NOTIFY DR/RN [facility] Comment on above: Result Comment: PERF ORMED BY: [place] [address] PATHOLOGIST GREEN CHAIN PULLER CLARENCE MARTINO M.D. Performed By: #### B MP, LACTIC, BNP, HS TROP, DIFF CBC #### [address] Glucose [Mass/Vol] 486 mg/dL Off scale [facility] Comment on above: Result Comment: [place] om Glucose Reference Range is dependent on time and content of last meal. Glucose of more than 200 mg/dL in a nonstressed, ambulatory subject supports the diagnosis of Diabetes Mellitus. Performed By: #### B MP, LACTIC, BNP, HS TROP, DIFF CBC #### [address] Commemt1 [facility] Comment on above: Result Comment: Glu2 : Will Repeat Test PERFORMED BY: [place] [address] PATHOLOGIST GREEN CHAIN PULLER CLARENCE MARTINO M.D. Performed By: #### G LULS #### Point of Care testing , Glucose [Mass/Vol] 437 mg/dL Off scale high [facility] Comment on above: Result Comment: [place] om Glucose Reference Range is dependent on time and content of last meal. Glucose of more than 200 mg/dL in a nonstressed, ambulatory subject supports the diagnosis of Diabetes Mellitus. Performed By: #### G LULS #### Point of Care testing , Commemt1 Glu2: Cleaned Meter Normal [facility] Comment on above: Performed By: #### G LULS #### Point of Care testing , Commemt2 WILL NOTIFY DR/RN [facility] Comment on above: Result Comment: PERF ORMED BY: [place] [address] PATHOLOGIST GREEN CHAIN PULLER CLARENCE MARTINO M.D. Performed By: #### G LULS #### Point of Care testing , Glucose [Mass/Vol] 451 mg/dL Off scale [facility] Comment on above: Result Comment: [place] om Glucose Reference Range is dependent on time and content of last meal. Glucose of more than 200 mg/dL in a nonstressed, ambulatory subject supports the diagnosis of Diabetes Mellitus. Performed By: #### G LULS #### Point of Care testing , Commemt1 [facility] Comment on above: Result Comment: Glu2 : WILL NOTIFY DR/RN PERFORMED BY: [place] [address] PATHOLOGIST GREEN CHAIN PULLER CLARENCE MARTINO M.D. Performed By: #### G LULS #### Point of Care testing , Glucose [Mass/Vol] 421 mg/dL Off scale [facility] Comment on above: Result Comment: [place] om Glucose Reference Range is dependent on time and content of last meal. Glucose of more than 200 mg/dL in a nonstressed, ambulatory subject supports the diagnosis of Diabetes Mellitus. Performed By: #### G LULS #### Point of Care testing , Glucose [Mass/Vol] 356 mg/dL [facility] Comment on above: Result Comment: [place] om Glucose Reference Range is dependent on time and content of last meal. Glucose of more than 200 mg/dL in a nonstressed, ambulatory subject supports the diagnosis of Diabetes Mellitus. PERFORMED BY: [place] [address] PATHOLOGIST GREEN CHAIN PULLER CLARENCE MARTINO M.D. Performed By: #### B MP, LACTIC, BNP, HS TROP, DIFF CBC #### [place] [address] [place] Commemt1 [facility] Comment on above: Result Comment: Glu2 : WILL NOTIFY DR/RN PERFORMED BY: [place] [address] PATHOLOGIST GREEN CHAIN PULLER CLARENCE MARTINO M.D. Performed By: #### G JESENIA #### Point of Care testing , Glucose [Mass/Vol] 419 mg/dL Off scale high [facility] Comment on above: Result Comment: [facility] Glucose Reference Range is dependent on time and content of last meal. Glucose of more than 200 mg/dL in a nonstressed, ambulatory subject supports the diagnosis of Diabetes Mellitus. Performed By: #### G JESENIA #### Point of Care testing , Gram Stainon 09-06-2022 Microscopic observation Gram stain Nom (Unsp spec) Gram Stain Result 1+ White Blood Cells 1+ Epithelial Cells Rare Gram Positive Cocci Rare Gram Positive Bacilli PERFORMED BY: [place] [address] PATHOLOGIST GREEN CHAIN PULLER CLARENCE MARTINO M.D. [facility] Comment on above: Performed By: #### A MELANIE LUNA #### [address] Arterial Blood Gason 023 ABG Base Excess 0.3 mmol/L Normal -3.0-3.0 [facility] Comment on above: Performed By: #### B MP, LACTIC, BNP, HS TROP, DIFF CBC #### [address] ABG Frac Inspired O2 32 % [facility] Comment on above: Performed By: #### B MP, LACTIC, BNP, HS TROP, DIFF CBC #### [address] ABG Liter Flow 2 [facility] Comment on above: Performed By: #### B MP, LACTIC, BNP, HS TROP, DIFF CBC #### [address] ABG Oxygen Content 8.3 mmol/L Normal 6.6-9.7 [facility] Comment on above: Performed By: #### B MP, LACTIC, BNP, HS TROP, DIFF CBC #### [address] ABG Oxygen Saturation 95.6 % Normal 95.0-100.0 [facility] Comment on above: Performed By: #### B MP, LACTIC, BNP, HS TROP, DIFF CBC #### [address] ABG PCO2 36.7 mm[Hg] Normal 35.0-45.0 [facility] Comment on above: Performed By: #### B MP, LACTIC, BNP, HS TROP, DIFF CBC #### [address] ABG PH 7.44 Normal 7.35-7.45 [facility] Comment on above: Performed By: #### B MP, LACTIC, BNP, HS TROP, DIFF CBC #### [address] ABG PO2 75.3 mm[Hg] Low 80.0-100.0 [facility] Comment on above: Performed By: #### B MP, LACTIC, BNP, HS TROP, DIFF CBC #### [address] CO2 [Moles/Vol] 25.3 mmol/L Normal 23.0-27.0 [facility] Comment on above: Performed By: #### B MP, LACTIC, BNP, HS TROP, DIFF CBC #### [address] HCO3 (Bld) [Moles/Vol] 24.1 mmol/L Normal 23.0-29.0 [facility] Comment on above: Performed By: #### B MP, LACTIC, BNP, HS TROP, DIFF CBC #### [address] Oxygen Device Nasal Cannula Normal [facility] Comment on above: Performed By: #### B MP, LACTIC, BNP, HS TROP, DIFF CBC #### [address] Respiratory Critical Normal [facility] Comment on above: Result Comment: Crit ical Value called on: 09/05/2022 at 11:59 PERFORMED BY: [place] [address] PATHOLOGIST GREEN CHAIN PULLER CLARENCE MARTINO M.D. Performed By: #### B MP, LACTIC, BNP, HS TROP, DIFF CBC #### [address] VBG Draw Site Right Brachial Normal [facility] Comment on above: Performed By: #### B MP, LACTIC, BNP, HS TROP, DIFF CBC #### [address] B-Type Natriuretic Peptideon 09-05-2022 Natriuretic peptide B (Bld) [Mass/Vol] 200.0 pg/mL High 5-100 [facility] Comment on above: Result Comment: PERF ORMED BY: [place] [address] PATHOLOGIST GREEN CHAIN PULLER CLARENCE MARTINO M.D. Performed By: #### B MP, LACTIC, BNP, HS TROP, DIFF CBC #### [address] Band form neutrophils/100 WB C Manual cnt (Bld)Ordered By: Lakesha Haskins on 09-05-2022 Band form neutrophils/100 WBC (Bld) 17 % 0-5 [facility] Basic Metabolic Panelon Anion gap [Moles/Vol] 14.6 mmol/L Normal 6.0-15.0 [facility] Comment on above: Performed By: #### G JESENIA #### Point of Care testing , Calcium [Mass/Vol] 8.3 mg/dL Normal 8.2-10.2 [facility] Comment on above: Performed By: #### G LULS #### Point of Care testing , Chloride [Moles/Vol] 99 mmol/L Normal 95-114 [facility] Comment on above: Performed By: #### G LULS #### Point of Care testing , CO2 [Moles/Vol] 28.3 mmol/L Normal 22.0-30.0 [facility] Comment on above: Performed By: #### G LULS #### Point of Care testing , Creatinine [Mass/Vol] 1.21 mg/dL Normal 0.64-1.27 [facility] Comment on above: Performed By: #### G LULS #### Point of Care testing , Creatinine Clr Calc Pharmacy 57.67 [facility] Comment on above: Result Comment: PERF ORMED BY: [facility] [address] [place] [address] PATHOLOGIST GREEN CHAIN PULLER CLARENCE MARTINO M.D. Performed By: #### G LULS #### Point of Care testing , Estimated GFR ( [place] > 60 [facility] Comment on above: Result Comment: GFR estimated reference range: According to KDOQI guidelines, <60 ml/min/1.73m2 is sufficient to diagnose a patient with chronic kidney disease. Performed By: #### G LULS #### Point of Care testing , Estimated GFR (Non- Am 57 [facility] Comment on above: Performed By: #### G LULS #### Point of Care testing , Glucose [Mass/Vol] 313 mg/dL High 70-100 [facility] Comment on above: Result Comment: [place] Glucose Reference Range is dependent on time and content of last meal. Glucose of more than 200 mg/dL in a nonstressed, ambulatory subject supports the diagnosis of Diabetes Mellitus. ADA recommended reference range Performed By: #### G LULS #### Point of Care testing , Potassium [Moles/Vol] 3.9 mmol/L Normal 3.5-5.1 [facility] Comment on above: Performed By: #### G LULS #### Point of Care testing , Sodium [Moles/Vol] 138 mmol/L Normal 136-146 [facility] Comment on above: Performed By: #### G LULS #### Point of Care testing , Urea nitrogen [Mass/Vol] 22 mg/dL Normal 9-23 [facility] Comment on above: Performed By: #### G JESENIA #### Point of Care testing , Anion gap [Moles/Vol] 14.1 mmol/L Normal 6.0-15.0 [facility] Comment on above: Performed By: #### B MP, LACTIC, BNP, HS TROP, DIFF CBC #### [facility] [address] Calcium [Mass/Vol] 8.6 mg/dL Normal 8.2-10.2 [facility] Comment on above: Performed By: #### B MP, LACTIC, BNP, HS TROP, DIFF CBC #### [address] Chloride [Moles/Vol] 99 mmol/L Normal 95-114 [facility] Comment on above: Performed By: #### B MP, LACTIC, BNP, HS TROP, DIFF CBC #### [address] CO2 [Moles/Vol] 27.0 mmol/L Normal 22.0-30.0 [facility] Comment on above: Performed By: #### B MP, LACTIC, BNP, HS TROP, DIFF CBC #### [address] Creatinine [Mass/Vol] 1.24 mg/dL Normal 0.64-1.27 [facility] Comment on above: Performed By: #### B MP, LACTIC, BNP, HS TROP, DIFF CBC #### [address] Creatinine Clr Calc Pharmacy 56.53 Normal [facility] Comment on above: Result Comment: PERF ORMED BY: [place] [address] PATHOLOGIST GREEN CHAIN PULLER CLARENCE MARTINO M.D. Performed By: #### B MP, LACTIC, BNP, HS TROP, DIFF CBC #### [address] Estimated GFR ( [place] > 60 [facility] Comment on above: Result Comment: GFR estimated reference range: According to KDOQI guidelines, <60 ml/min/1.73m2 is sufficient to diagnose a patient with chronic kidney disease. Performed By: #### B MP, LACTIC, BNP, HS TROP, DIFF CBC #### [facility] [address] [place] [address] [place] Estimated GFR (Non- Am 56 [facility] Comment on above: Performed By: #### B MP, LACTIC, BNP, HS TROP, DIFF CBC #### [facility] [address] [place] [address] [place] Glucose [Mass/Vol] 315 mg/dL High 70-100 [facility] Comment on above: Result Comment: [place] om Glucose Reference Range is dependent on time and content of last meal. Glucose of more than 200 mg/dL in a nonstressed, ambulatory subject supports the diagnosis of Diabetes Mellitus. ADA recommended reference range Performed By: #### B MP, LACTIC, BNP, HS TROP, DIFF CBC #### [facility] [address] [place] [address] [place] Potassium [Moles/Vol] 4.1 mmol/L Normal 3.5-5.1 [facility] Comment on above: Performed By: #### B MP, LACTIC, BNP, HS TROP, DIFF CBC #### [facility] [address] [place] [id number] [place] Sodium [Moles/Vol] 136 mmol/L Normal 136-146 [facility] Comment on above: Performed By: #### B MP, LACTIC, BNP, HS TROP, DIFF CBC #### [facility] [address] [place] [address] [place] Urea nitrogen [Mass/Vol] 22 mg/dL Normal 9-23 [facility] Comment on above: Performed By: #### B MP, LACTIC, BNP, HS TROP, DIFF CBC #### [facility] [address] [place] [id number] [place] Basophils/100 WBC Manual cnt (Bld)Ordered By: Lakesha Haskins on 09-05-2022 Basophils/100 WBC (Bld) 0 % 0-[address] [facility] [address] chest w conon 09-05-2022 CT chest w con [facility] [place] [address] [place] [address] CT Scan Report Signed Patient: Jose L Mauricio MR#: [id number] : 1940 Acct:[id number] Age/Sex: 81 / M ADM Date: 09/04/22 Loc: Room: [address] [place] [address] Type: ADM IN Attending Dr: Randolph Velasquez [...] resolution. Impression dictated by: Singh Ha Jr., D.O.09/05/2022 3:30 PM Dictation Location: [place] [address] Transcribed By: [facility] 09/05/22 1530 Dictated By: Singh Ha Jr, DO 09/05/22 1527 Signed By: 09/05/22 1530 Normal [facility] Diff and CBCon 09-05-2022 Band form neutrophils/100 WBC (Bld) 17 % High 0-5 [facility] Comment on above: Performed By: #### G KRYSTALLS #### Point of Care testing , Basophils/100 WBC (Bld) 0 % Normal 0-2 [facility] Comment on above: Performed By: #### G KRYSTALLS #### Point of Care testing , Eosinophils/100 WBC (Bld) 0 % Low 1-3 [facility] Comment on above: Performed By: #### G KRYSTALLS #### Point of Care testing , Erythrocyte distribution width (RBC) [Ratio] 14.0 % Normal 12.0-14.8 [facility] Comment on above: Performed By: #### G KRYSTALLS #### Point of Care testing , Hematocrit (Bld) [Volume fraction] 37.1 % Low 38.8-50.0 [facility] Comment on above: Performed By: #### G KRYSTALLS #### Point of Care testing , Hemoglobin (Bld) [Mass/Vol] 12.5 g/dL Low 13.0-17.0 [facility] Comment on above: Performed By: #### G KRYSTALLS #### Point of Care testing , Lymphocytes/100 WBC (Bld) 8 % Low 18-42 [facility] Comment on above: Performed By: #### G LULS #### Point of Care testing , MCH (RBC) [Entitic mass] 30.9 pg Normal 27.5-35.2 [facility] Comment on above: Performed By: #### G LULS #### Point of Care testing , MCV (RBC) [Entitic vol] 91.9 fL Normal 83.5-101 [facility] Comment on above: Performed By: #### G LULS #### Point of Care testing , Mean Corpuscular HGB Conc 33.6 g/dL Normal 32.5-35.6 [facility] Comment on above: Performed By: #### G LULS #### Point of Care testing , Metamyelocytes 1 % High 0-0 [facility] Comment on above: Performed By: #### G LULS #### Point of Care testing , Monocytes/100 WBC (Bld) 8 % Normal 2-11 [facility] Comment on above: Performed By: #### G LULS #### Point of Care testing , Platelet Estimate Normal Normal Normal [facility] Comment on above: Performed By: #### G LULS #### Point of Care testing , Platelet mean volume (Bld) [Entitic vol] 8.0 fL Normal 6.6-10.1 [facility] Comment on above: Result Comment: PERF ORMED BY: [address] [place] [address] PATHOLOGIST GREEN CHAIN PULLER CLARENCE MARTINO M.D. Performed By: #### G LULS #### Point of Care testing , Platelet Morphology Normal Normal Normal [facility] Comment on above: Result Comment: PERF ORMED BY: [address] [place] [address] PATHOLOGIST GREEN CH[employer] PULLER CLARENCE MARTINO M.D. Performed By: #### G LULS #### Point of Care testing , Platelets (Bld) [#/Vol] 212 10*3/uL Normal 150-450 [facility] Comment on above: Performed By: #### G LULS #### Point of Care testing , RBC (Bld) [#/Vol] 4.04 10*6/uL Normal 3.90-5.60 [facility] Comment on above: Performed By: #### G LULS #### Point of Care testing , RBC morphology finding Nom (Bld) Normal Normal Normal [facility] Comment on above: Performed By: #### G LULS #### Point of Care testing , Segmented neutrophils/100 WBC (Bld) 66 % Normal 50-70 [facility] Comment on above: Performed By: #### G LULS #### Point of Care testing , WBC (Bld) [#/Vol] 9.6 10*3/uL Normal 4.1-10.5 [facility] Comment on above: Performed By: #### G LULS #### Point of Care testing , Band form neutrophils/100 WBC (Bld) 32 % High 0-5 [facility] Comment on above: Performed By: #### B MP, LACTIC, BNP, HS TROP, DIFF CBC #### [address] Basophils/100 WBC (Bld) 2 % Normal 0-2 [facility] Comment on above: Performed By: #### B MP, LACTIC, BNP, HS TROP, DIFF CBC #### [address] Eosinophils/100 WBC (Bld) 1 % Normal 1-3 [facility] Comment on above: Performed By: #### B MP, LACTIC, BNP, HS TROP, DIFF CBC #### [address] Erythrocyte distribution width (RBC) [Ratio] 14.2 % Normal 12.0-14.8 [facility] Comment on above: Performed By: #### B MP, LACTIC, BNP, HS TROP, DIFF CBC #### [address] Hematocrit (Bld) [Volume fraction] 38.5 % Low 38.8-50.0 [facility] Comment on above: Performed By: #### B MP, LACTIC, BNP, HS TROP, DIFF CBC #### [address] Hemoglobin (Bld) [Mass/Vol] 13.0 g/dL Normal 13.0-17.0 [facility] Comment on above: Performed By: #### B MP, LACTIC, BNP, HS TROP, DIFF CBC #### [address] Lymphocytes/100 WBC (Bld) 7 % Low 18-42 [facility] Comment on above: Performed By: #### B MP, LACTIC, BNP, HS TROP, DIFF CBC #### [address] MCH (RBC) [Entitic mass] 31.1 pg Normal 27.5-35.2 [facility] Comment on above: Performed By: #### B MP, LACTIC, BNP, HS TROP, DIFF CBC #### [address] MCV (RBC) [Entitic vol] 91.7 fL Normal 83.5-101 [facility] Comment on above: Performed By: #### B MP, LACTIC, BNP, HS TROP, DIFF CBC #### [address] Mean Corpuscular HGB Conc 33.9 g/dL Normal 32.5-35.6 [facility] Comment on above: Performed By: #### B MP, LACTIC, BNP, HS TROP, DIFF CBC #### [address] Monocytes/100 WBC (Bld) 5 % Normal 2-11 [facility] Comment on above: Performed By: #### B MP, LACTIC, BNP, HS TROP, DIFF CBC #### [address] Myelocytes 4 % High 0-0 [facility] Comment on above: Performed By: #### B MP, LACTIC, BNP, HS TROP, DIFF CBC #### [address] Plasma Cells 1 % High 0-0 [facility] Comment on above: Performed By: #### B MP, LACTIC, BNP, HS TROP, DIFF CBC #### [address] Platelet Estimate Normal Normal Normal [facility] Comment on above: Performed By: #### B MP, LACTIC, BNP, HS TROP, DIFF CBC #### [address] Platelet mean volume (Bld) [Entitic vol] 8.1 fL Normal 6.6-10.1 [facility] Comment on above: Performed By: #### B MP, LACTIC, BNP, HS TROP, DIFF CBC #### [address] Platelet Morphology Normal Normal Normal [facility] Comment on above: Result Comment: PERF ORMED BY: [place] [address] PATHOLOGIST GREEN CH[employer] PULLER CLARENCE MARTINO M.D. Performed By: #### B MP, LACTIC, BNP, HS TROP, DIFF CBC #### [address] Platelets (Bld) [#/Vol] 230 10*3/uL Normal 150-450 [facility] Comment on above: Performed By: #### B MP, LACTIC, BNP, HS TROP, DIFF CBC #### [address] Promyelocytes 1 % High 0-0 [facility] Comment on above: Performed By: #### B MP, LACTIC, BNP, HS TROP, DIFF CBC #### [address] RBC (Bld) [#/Vol] 4.20 10*6/uL Normal 3.90-5.60 [facility] Comment on above: Performed By: #### B MP, LACTIC, BNP, HS TROP, DIFF CBC #### [address] RBC morphology finding Nom (Bld) Normal Normal Normal [facility] Comment on above: Performed By: #### B MP, LACTIC, BNP, HS TROP, DIFF CBC #### [address] Segmented neutrophils/100 WBC (Bld) 47 % Low 50-70 [facility] Comment on above: Performed By: #### B MP, LACTIC, BNP, HS TROP, DIFF CBC #### [address] WBC (Bld) [#/Vol] 9.5 10*3/uL Normal 4.1-10.5 [facility] Comment on above: Performed By: #### B MP, LACTIC, BNP, HS TROP, DIFF CBC #### [address] ECG 12 lead ECGon 09-05-2022 ECG 12 lead ECG [place] [address] Electrocardiograph Report Signed Patient: Jose L Mauricio MR#: [id number] : 1940 Acct:[id number] Age/Sex: 81 / M ADM Date: 09/04/22 Loc: 4P Room: [address] [place] [address] Type: DIS IN Attending Dr: Randolph Velasquez [...] MUS Signed By Cesar Haile DO 09/06 Normal [facility] ECH echo transthoracicon ECH echo transthoracic [place] [address] Echocardiogram Signed Patient: Jose L Mauricio MR#: [id number] : 1940 Acct:[id number] Age/Sex: 81 / M ADM Date: 09/04/22 Loc: 4 Room: [address] [place] [address] Type: DIS IN Attending Dr: Randolph Velasquez MD Ordering Provider: Lakesha Haskins APRN Date of Service: 09/04/2211/22/2332 ECH/ECH echo transthoracic: elevated troponins Copies to: MD Lakesha Mccullough, [employer] BSA: 2.3 m2 BP: 165/80 mmHg HR: [...] By: Liz Morales MD 09/05/22 0943 Normal [facility] Eosinophils/100 WBC Manual c nt (Bld)Ordered By: Lakesha Haskins on 09-05-2022 Eosinophils/100 WBC (Bld) 0 % 1-3 [facility] Glucose Poct Glucometerson 0 09-05-2022 Glucose [Mass/Vol] 338 mg/dL Normal [facility] Comment on above: Result Comment: [facility] Glucose Reference Range is dependent on time and content of last meal. Glucose of more than 200 mg/dL in a nonstressed, ambulatory subject supports the diagnosis of Diabetes Mellitus. PERFORMED BY: [place] [address] PATHOLOGIST GREEN CH[employer] PULLER CLARENCE MARTINO M.D. Performed By: #### G LULS #### Point of Care testing , Commemt1 Glu2: Cleaned Meter Normal [facility] Comment on above: Result Comment: PERF ORMED BY: [place] [address] PATHOLOGIST GRE[employer] P[employer]ER CLARENCE MARTINO M.D. Performed By: #### B MP, LACTIC, BNP, HS TROP, DIFF CBC #### [facility] [address] [place] [address] [place] Glucose [Mass/Vol] 269 mg/dL Normal [facility] Comment on above: Result Comment: [place] [facility] Glucose Reference Range is dependent on time and content of last meal. Glucose of more than 200 mg/dL in a nonstressed, ambulatory subject supports the diagnosis of Diabetes Mellitus. Performed By: #### B MP, LACTIC, BNP, HS TROP, DIFF CBC #### [facility] [address] [place], [place] [id number] [place] Glucose [Mass/Vol] 344 mg/dL Normal [facility] Comment on above: Result Comment: [place] Glucose Reference Range is dependent on time and content of last meal. Glucose of more than 200 mg/dL in a nonstressed, ambulatory subject supports the diagnosis of Diabetes Mellitus. PERFORMED BY: [place] [address] PATHOLOGIST GRE[employer] CH[employer] PULLER CLARENCE MARTINO M.D. Performed By: #### B MP, LACTIC, BNP, HS TROP, DIFF CBC #### [address] Glucose [Mass/Vol] 340 mg/dL Normal [facility] Comment on above: Result Comment: [facility] Glucose Reference Range is dependent on time and content of last meal. Glucose of more than 200 mg/dL in a nonstressed, ambulatory subject supports the diagnosis of Diabetes Mellitus. PERFORMED BY: [place] [address] PATHOLOGIST [employer] PULLER CLARENCE MARTINO M.D. Performed By: #### G LULS #### Point of Care testing , Glucose [Mass/Vol] 342 mg/dL Normal [facility] Comment on above: Result Comment: [place] Glucose Reference Range is dependent on time and content of last meal. Glucose of more than 200 mg/dL in a nonstressed, ambulatory subject supports the diagnosis of Diabetes Mellitus. PERFORMED BY: [place] [address] PATHOLOGIST GREEN CH[employer] PULLER CLARENCE MARTINO M.D. Performed By: #### B MP, LACTIC, BNP, HS TROP, DIFF CBC #### [address] Laboratory - Chemistry and C hemistry - challengeOrdered By: Randolph Velasquez on 09-05-2022 CO2 [Moles/Vol] 25.3 mmol/L 23.0-27.0 [facility] HCO3 (Bld) [Moles/Vol] 24.1 mmol/L 23.0-29.0 [facility] Lactic Acidon 09-05-2022 Lactate [Moles/Vol] 1.6 mmol/L Normal 0.5-2.2 [facility] Comment on above: Result Comment: PERF ORMED BY: [facility] [address] [place] [address] PATHOLOGIST GREEN CH[employer] PULLER CLARENCE MARTINO M.D. Performed By: #### B MP, LACTIC, BNP, HS TROP, DIFF CBC #### [facility] [address] Lymphocytes/100 WBC Manual c nt (Bld)Ordered By: Lakesha Haskins on 09-05-2022 Lymphocytes/100 WBC (Bld) 8 % 18-42 [facility] Metamyelocytes/100 WBC Manua l cnt (Bld)Ordered By: Lakesha Haskins on 09-05-2022 Metamyelocytes/100 WBC (Bld) 1 % 0-0 [facility] Monocytes/100 WBC Manual cnt (Bld)Ordered By: Lakesha Haskins on 09-05-2022 Monocytes/100 WBC (Bld) 8 % 2-11 [facility] No Panel InformationOrdered By: Randolph Velasquez on 09-05-2022 Arterial Blood Base Excess 0.3 mmol/L -3.0-3.0 [facility] Arterial Blood Oxygen Content 8.3 mmol/L 6.6-9.7 [facility] Arterial Blood Oxygen Saturation 95.6 % 95.0-100.0 [facility] Arterial Blood Partial Pressure CO2 36.7 mm[Hg] 35.0-45.0 [facility] Arterial Blood Partial Pressure O2 75.3 mm[Hg] 80.0-100.0 [facility] Arterial Blood pH 7.44 7.35-7.45 [facility] Blood Gas Critical Value See comment [facility] Comment on above: Critical Value coles d on: 09/05/2022 at 11:59 Blood Gas Liter Flow 2 L/min [facility] Blood Gas Sample Site Right brachial [facility] FiO2 32 % [facility] Oxygen Delivery Device Nasal cannula [facility] Segmented neutrophils/100 WB C Manual cnt (Bld)Ordered By: Lakesha Haskins on 09-05-2022 Segmented neutrophils/100 WBC (Bld) 66 % 50-70 [facility] Troponin I High Sensitivityo n 09-05-2022 Troponin I High Sensitivity 97 pg/mL Off scale high 0-20 [facility] Comment on above: Result Comment: Resu lts called at 0640 on 09/05/22 PERFORMED BY: [place] [address] PATHOLOGIST GREEN CHAIN PULLER CLARENCE MARTINO M.D. Performed By: #### G LULS #### Point of Care testing , Troponin I High Sensitivity 128 pg/mL Off scale high 0-20 [facility] Comment on above: Result Comment: Resu lts called at 0123 on 09/05/22 PERFORMED BY: [place] [address] PATHOLOGIST GREEN CH[employer] PULLER CLARENCE MARTINO M.D. Performed By: #### B MP, LACTIC, BNP, HS TROP, DIFF CBC #### [address] Troponin I.cardiac [Mass/vol ume] in Serum or Plasma by High sensitivity methodOrdered By: Lakesha Haskins on 09-05-2022 Troponin I.cardiac High sensitivity method [Mass/Vol] 97 pg/mL 0-20 [facility] Comment on above: Results calledat 064 0 on 09/05/22 XR chest 1V portableon 09-05 XR chest 1V portable [facility] [place] [address] [place] [address] XRay Report Signed Patient: Jose L Mauricio MR#: [id number] : 1940 Acct:[id number] Age/Sex: 81 / M ADM Date: 09/04/22 Loc: Room: [address] [place] [address] Type: ADM IN Attending Dr: Randolph Velasquez [...] CONSOLIDATION. Impression dictated by: Singh Ha Jr., Omid09/05/2022 12:48 PM Dictation Location: [place] [address] Transcribed By: [facility] 09/05/22 1248 Dictated By: Singh Ha Jr, DO 09/05/22 1245 Signed By: 09/05/22 1248 Normal [facility] ACETONE SERUMon 09-04-2022 ACETONE Negative Normal NEGATIVE [facility] Comment on above: Performed By: #### A CETON #### [facility] [address] [place] [address] Dr. Luis Manuel Asher BNPon 09-04-2022 Natriuretic peptide B (Bld) [Mass/Vol] 1464.0 pg/mL Normal <=1,800.0 [facility] Comment on above: Performed By: #### V ITAD #### [facility] [address] [place] [address] Dr. Luis Manuel Asher CBC W MANUAL DIFFon 09-04-19 ATYPICAL LYMPH # Normal [facility] Comment on above: Performed By: #### C BCMAN #### [facility] [address] [place] [address] Dr. Luis Manuel Asher ATYPICAL LYMPH % Normal [facility] Comment on above: Performed By: #### C BCMAN #### [facility] [address] [place] [address] Dr. Luis Manuel Asher BAND # 0.7 103/ul Critically high 0.0-0.3 [facility] Comment on above: Performed By: #### C BCMAN #### [facility] [address] [place] [address] Dr. Luis Manuel Asher BAND % 6 % Critically high 0-5 [facility] Comment on above: Performed By: #### C BCMAN #### [facility] [address] [place] [address] Dr. Luis Manuel Asher BASOM # 0.00 103/ul Normal 0.00-0.10 [facility] Comment on above: Performed By: #### C SANTOS #### [facility] [address] [place] [address] Dr. Luis Manuel Asher BASOM % 0.0 % Critically low 0.2-2.0 [facility] Comment on above: Performed By: #### C BCYAMILETH #### [facility] [address] [place] [address] Dr. Luis Manuel Asher BLAST # Normal [facility] Comment on above: Performed By: #### C SANTOS #### [facility] [address] [place] [address] Dr. Luis Manuel Asher BLAST % Normal [facility] Comment on above: Performed By: #### C SANTOS #### [facility] [address] [place] [address] Dr. Luis Manuel Asher CORRECTED WBC Normal 4.0-11.0 [facility] Comment on above: Performed By: #### C SANTOS #### [facility] [address] [place] [address] Dr. Luis Manuel Asher EOS # 0.00 103/ul Normal 0.00-0.70 [facility] Comment on above: Performed By: #### C SANTOS #### [facility] [address] [place] [address] Dr. Luis Manuel Asher EOS% 0.0 % Critically low 0.9-7.0 [facility] Comment on above: Performed By: #### C SANTOS #### [facility] [address] [place] [address] Dr. Luis Manuel Asher HCT 41.3 % Critically low 42.0-54.0 [facility] Comment on above: Performed By: #### C SANTOS #### [facility] [address] [place] [address] Dr. Luis Manuel Asher HGB 13.6 g/dl Critically low 14.0-18.0 [facility] Comment on above: Performed By: #### C SANTOS #### [facility] [address] [place] [address] Dr. Luis Manuel Asher LYMPHM # 0.79 103/ul Critically low 1.20-3.80 [facility] Comment on above: Performed By: #### C SANTOS #### [facility] [address] [place] [address] Dr. Luis Manuel Asher LYMPHM% 7.0 % Critically low 20.5-60.0 [facility] Comment on above: Performed By: #### C SANTOS #### [facility] [address] [address] [address] Luis Manuel Asher MCH 30.4 pg Normal 25.9-34.0 [facility] Comment on above: Performed By: #### C SANTOS #### [facility] [address] [place] [address] Dr. Luis Manuel Asher MCHC 32.9 g/dl Normal 29.9-35.2 [facility] Comment on above: Performed By: #### C SANTOS #### [facility] [address] [place] [address] Dr. Luis Manuel Asher MCV 92.2 fL Normal 80.0-94.0 [facility] Comment on above: Performed By: #### C SANTOS #### [facility] [address] [place] [address] Dr. Luis Manuel Asher METAMYELOCYTE # Normal [facility] Comment on above: Performed By: #### C SANTOS #### [facility] [address] [place] [address] Dr. Luis Manuel Asher METAMYELOCYTE % Normal [facility] Comment on above: Performed By: #### C SANTOS #### [facility] [address] [place] [address] Dr. Luis Manuel Asher MONOM# 1.36 103/ul Critically high 0.30-0.80 [facility] Comment on above: Performed By: #### C SANTOS #### [facility] [address] [place] [address] Dr. Luis Manuel Asher MONOM% 12.0 % Normal 1.7-12.0 [facility] Comment on above: Performed By: #### C SANTOS #### [facility] [address] [address] [address] Luis Manuel Asher MPV 10.0 fL Normal 9.5-13.5 [facility] Comment on above: Performed By: #### C SANTOS #### [facility] [address] [place] [address] Dr. Luis Manuel Asher MYELOCYTE # Normal [facility] Comment on above: Performed By: #### C SANTOS #### [facility] [address] [address] [address] Luis Manuel Asher MYELOCYTE % Normal [facility] Comment on above: Performed By: #### C SANTOS #### [facility] [address] [place] [address] Dr. Luis Manuel Asher NRBC Normal [facility] Comment on above: Performed By: #### C SANTOS #### [facility] [address] [place] [address] Dr. Luis Manuel Asher PLT 251 103/ul Normal 150-450 [facility] Comment on above: Performed By: #### C SANTOS #### [facility] [address] [place] [address] Dr. Luis Manuel Asher RBC 4.48 106/ul Critically low 4.70-6.10 [facility] Comment on above: Performed By: #### C SANTOS #### [facility] [address] [place] [address] Dr. Luis Manuel Asher RDW 13.4 % Normal 11.0-15.0 [facility] Comment on above: Performed By: #### C SANTOS #### [facility] [address] [place] [address] Dr. Luis Manuel Asher SEG # 8.47 103/ul Critically high 1.40-6.50 [facility] Comment on above: Performed By: #### C SANTOS #### [facility] [address] [place] [address] Dr. Luis Manuel Asher SEG % 75.0 % Normal 43.0-75.0 [facility] Comment on above: Performed By: #### C SANTOS #### [facility] [address] [place] [address] Dr. Luis Manuel Asher WBC 11.3 103/ul Critically high 4.0-11.0 [facility] Comment on above: Performed By: #### C BCMAN #### [facility] [address] [place] [address] Dr. Luis Manuel Asher CULTURE BLOODon 09-04-2022 Microscopic examination of blood, culture Culture Observations: NO GROWTH AT 5 DAYS. Normal [facility] Comment on above: Performed By: #### V ITAD #### [facility] [address] [place] [address] Dr. Luis Manuel Asher Microscopic examination of blood, culture Culture Observations: NO GROWTH AT 5 DAYS. Normal [facility] Comment on above: Performed By: #### V ITAD #### [facility] [address] [place] [address] Dr. Luis Manuel Asher Covid-19 PCR ([facility])on SARS-CoV-2 (COVID-19) RNA ABE+probe Ql (Unsp spec) Not detected Normal NOT DETECTED [facility] Comment on above: Result Comment: When diagnostic [...] for this test is supported by the [employer] of Health and Human Service's declaration that [...] used). Performed By: #### V ITAD #### [facility] [address] [place] [address] Dr. Luis Manuel Asher INFLUENZA A AND B AGon 09-04 INFLUANEGH SEE BELOW [facility] Comment on above: Result Comment: Nega tive for Flu A protein angiten. Infection due to Flu A cannot be ruled out. Flu A angiten in the sample may be below the detection limit of the test. Performed By: #### A CETON #### [facility] [address] [place] [address] Dr. Luis Manuel Asher [facility] SEE BELOW Normal [facility] Comment on above: Result Comment: Nega tive for Flu B protein antigen. Infection due to Flu B cannot be ruled out. Flu B antigen in the sample may be below the detection limit of the test. Performed By: #### A CETON #### [facility] [address] [place] [address] Dr. Luis Manuel Asher INFLUENZA A AG Negative Normal NEGATIVE SEE COMMENT [facility] Comment on above: Performed By: #### A CETON #### [facility] [address] [place] [address] Dr. Luis Manuel Asher INFLUENZA B AG Negative Normal NEGATIVE SEE COMMENT [facility] Comment on above: Performed By: #### A CETON #### [facility] [address] [place] [address] Dr. Luis Manuel Asher LACTATE/LACTIC ACIDon 2022 Lactate [Moles/Vol] 4.0 mmol/L Critically high 0.4-1.9 [facility] Comment on above: Performed By: #### L ACT #### [facility] [address] [place] [address] Dr. Luis Manuel Asher Laboratory - Chemistry and C hemistry - challengeOrdered By: Lakesha Haskins on 09-04-2022 Natriuretic peptide B (Bld) [Mass/Vol] 200.0 pg/mL 5-100 [facility] Myelocytes/100 WBC Manual cn t (Bld)Ordered By: Lakesha Haskins on 09-04-2022 Myelocytes/100 WBC (Bld) 4 % 0-0 [facility] POINT OF CARE GLUCOSEon Glucose [Mass/Vol] 362 mg/dL Critically high 74-106 [facility] Comment on above: Performed By: #### P OCGLUC #### [facility] [address] [address] [address] Luis Manuel Asher Glucose [Mass/Vol] 352 mg/dL Critically high 74-106 [facility] Comment on above: Performed By: #### V ITAD #### [facility] [address] [place] [address] Dr. Luis Manuel Asher PROF 14(COMP METB)on 023 Albumin [Mass/Vol] 2.6 g/dL Critically low 3.4-5.0 [facility] Comment on above: Performed By: #### V ITAD #### [facility] [address] [place] [address] Dr. Luis Manuel Asher Albumin/Globulin [Mass ratio] 0.5 {ratio} Normal [facility] Comment on above: Performed By: #### V ITAD #### [facility] [address] [place] [address] Dr. Luis Manuel Asher ALP [Catalytic activity/Vol] 163 U/L Critically high 46-116 [facility] Comment on above: Performed By: #### V ITAD #### [facility] [address] [place] [address] Dr. Luis Manuel Asher ALT [Catalytic activity/Vol] 98 U/L Critically high 16-63 [facility] Comment on above: Performed By: #### V ITAD #### [facility] [address] [place] [address] Dr. Luis Manuel Asher Anion gap [Moles/Vol] 14.9 mmol/L Normal [facility] Comment on above: Performed By: #### V ITAD #### [facility] [address] [place] [address] Dr. Luis Manuel Asher AST [Catalytic activity/Vol] 57 U/L Critically high 15-37 [facility] Comment on above: Performed By: #### V ITAD #### [facility] [address] [place] [address] Dr. Luis Manuel Asher Bilirubin [Mass/Vol] 0.4 mg/dL Normal 0.2-1.0 [facility] Comment on above: Performed By: #### V ITAD #### [facility] [address] [address] [address] Luis Manuel Asher Calcium [Mass/Vol] 9.4 mg/dL Normal 8.5-10.1 [facility] Comment on above: Performed By: #### V ITAD #### [facility] [address] [address] [address] Luis Manuel Asher Chloride [Moles/Vol] 100 mmol/L Normal 98-107 [facility] Comment on above: Performed By: #### V ITAD #### [facility] [address] [address] [address] Luis Manuel Asher CO2 [Moles/Vol] 27.2 mmol/L Normal 21.0-32.0 [facility] Comment on above: Performed By: #### V ITAD #### [facility] [address] [address] [address] Luis Manuel Asher Creatinine [Mass/Vol] 1.45 mg/dL Critically high 0.70-1.30 [facility] Comment on above: Performed By: #### V ITAD #### [facility] [address] [address] [address] Luis Manuel Asher EGFR-AF PALAUAN 56 mL/min/1.73m2 Critically low >=60 [facility] Comment on above: Performed By: #### V ITAD #### [facility] [address] [address] [address] Luis Manuel Asher EGFR-NON AF PALAUAN 46 mL/min/1.73m2 Critically low >=60 [facility] Comment on above: Performed By: #### V ITAD #### [facility] [address] [address] [address] Luis Manuel sAher Globulin (S) [Mass/Vol] 4.9 g/dL Normal [facility] Comment on above: Performed By: #### V ITAD #### [facility] [address] [address] [address] Luis Manuel Asher Glucose [Mass/Vol] 396 mg/dL Critically high 74-106 [facility] Comment on above: Performed By: #### V ITAD #### [facility] [address] [address] [address] Luis Manuel Asher Potassium [Moles/Vol] 4.1 mmol/L Normal 3.5-5.1 [facility] Comment on above: Performed By: #### V ITAD #### [facility] [address] [address] [address] Luis Manuel Asher Protein [Mass/Vol] 7.5 g/dL Normal 6.4-8.2 [facility] Comment on above: Performed By: #### V ITAD #### [facility] [address] [address] [address] Luis Manuel Asher Sodium [Moles/Vol] 138 mmol/L Normal 136-145 [facility] Comment on above: Performed By: #### V ITAD #### [facility] [address] [address] [address] Luis Manuel Asher Urea nitrogen [Mass/Vol] 26.0 mg/dL Critically high 7.0-18 .0 [facility] Comment on above: Performed By: #### V ITAD #### [facility] [address] [address] [address] Luis Manuel Asher Urea nitrogen/Creatinine [Mass ratio] 17.9 mg/mg Normal [facility] Comment on above: Performed By: #### V ITAD #### [facility] [address] [address] [address] Luis Manuel Asher Plasma cells/100 leukocytes in Blood by Manual countOrdered By: Lakesha Haskins on 09-04-2022 Plasma cells/100 WBC Manual cnt (Bld) 1 % 0-0 [facility] Promyelocytes/100 WBC Manual cnt (Bld)Ordered By: Lakesha Haskins on 09-04-2022 Promyelocytes/100 WBC (Bld) 1 % 0-0 [facility] TROPONIN, HIGH SENSITIVITYon 09-04-2022 HSTROP 180.9 pg/mL Critically high 4.0-76.1 [facility] Comment on above: Result Comment: CUT- OFF POINTS HAVE BEEN ESTABLISHED BASED ON THE FOURTH UNIVERSAL DEFINITIONS OF MYOCARDIAL INFARCTION. THE UPPER REFERENCE LIMIT (URL) OF TROPONIN, DEFINED THE 99TH PERCENTILE OF cTnI DISTRIBUTION IN A REFERENCE POPULATION, HAS BEEN CONFIRMED THE DECISION THRESHOLD FOR ND DIAGNOSIS. Performed By: #### V ITAD #### [facility] [address] [place] [address] Dr. Luis Manuel Asher Urine lactic acid measuremen tOrdered By: Lakesha Haskins on 09-04-2022 Lactate (U) [Moles/Vol] 1.6 mmol/L 0.5-2.2 [facility] XR CHEST 1 Von 09-04-2022 XR CHEST 1 V ONE-VIEW CHEST RADIOGRAPH, 09/04/2022 4:55 PM EST COMPARISON: Chest, 11/02/2020. CLINICAL HISTORY: SHORTNESS OF BREATH/weakness and confusion. Findings and impression: 1. Some questionable interstitial pulmonary edema suspected. Some underlying inflammatory or infectious pneumonitis cannot be excluded. 2. Borderline heart size. 3. No acute osseous abnormality. Electronically authenticated by: Gael KENNEY Date: 2022-09-04 17:54 Normal [facility] MICROALBUMIN URINEon 022 Albumin, Urine 30.0 ug/mL Normal Not Estab. [facility] Comment on above: Performed By: #### A CETON #### [facility] [address] [place] [address] Dr. Luis Manuel Asher CBC AUTO DIFFon 04-24-2022 BASO # 0.0 103/ul Normal 0.0-0.1 [facility] Comment on above: Performed By: #### C BC #### [facility] [address] [place] [address] Dr. Luis Manuel Asher Basophils/100 WBC (Bld) 0.5 % Normal 0.2-2.0 [facility] Comment on above: Performed By: #### C BC #### [facility] [address] [place] [address] Dr. Luis Manuel Asher EO # 0.1 103/ul Normal 0.0-0.7 [facility] Comment on above: Performed By: #### C BC #### [facility] [address] [place] [address] Dr. Luis Manuel Asher Eosinophils/100 WBC (Bld) 1.4 % Normal 0.9-7.0 [facility] Comment on above: Performed By: #### C BC #### [facility] [address] [place] [address] Dr. Luis Manuel Asher Erythrocyte distribution width (RBC) [Ratio] 13.1 % Normal 11.0-15.0 [facility] Comment on above: Performed By: #### C BC #### [facility] [address] [place] [address] Dr. Luis Manuel Asher Hematocrit (Bld) [Volume fraction] 39.3 % Critically low 42.0-54.0 [facility] Comment on above: Performed By: #### C BC #### [facility] [address] [place] [address] Dr. Luis Manuel Asher Hemoglobin (Bld) [Mass/Vol] 13.3 g/dL Critically low 14.0-18.0 [facility] Comment on above: Performed By: #### C BC #### [facility] [address] [place] [address] Dr. Luis Manuel Asher IG # 0.02 10e3/ul Normal 0.00-0.03 [facility] Comment on above: Performed By: #### C BC #### [facility] [address] [place] [address] Dr. Luis Manuel Asher IG % 0.3 % Normal 0.0-0.5 [facility] Comment on above: Performed By: #### C BC #### [facility] [address] [place] [address] Dr. Luis Manuel Asher LYMPH # 0.6 103/ul Critically low 1.2-3.8 [facility] Comment on above: Performed By: #### C BC #### [facility] [address] [place] [address] Dr. Luis Manuel Asher Lymphocytes/100 WBC (Bld) 9.1 % Critically low 20.5-60.0 [facility] Comment on above: Performed By: #### C BC #### [facility] [address] [place] [address] Dr. Luis Manuel Asher MANUAL DIFF REQ NO Normal [facility] Comment on above: Performed By: #### C BC #### [facility] [address] [address] [address] Luis Manuel Asher MCH (RBC) [Entitic mass] 31.0 pg Normal 25.9-34.0 [facility] Comment on above: Performed By: #### C BC #### [facility] [address] [address] [address] Luis Manuel Asher MCHC (RBC) [Mass/Vol] 33.8 g/dL Normal 29.9-35.2 [facility] Comment on above: Performed By: #### C BC #### [facility] [address] [place] [address] Dr. Luis Manuel Asher MCV (RBC) [Entitic vol] 91.6 fL Normal 80.0-94.0 [facility] Comment on above: Performed By: #### C BC #### [facility] [address] [place] [address] Dr. Luis Manuel Asher MONO # 0.7 103/ul Normal 0.3-0.8 [facility] Comment on above: Performed By: #### C BC #### [facility] [address] [place] [address] Dr. Luis Manuel Asher Monocytes/100 WBC (Bld) 10.3 % Normal 1.7-12.0 [facility] Comment on above: Performed By: #### C BC #### [facility] [address] [place] [address] Dr. Luis Manuel Asher NEUT # 5.0 103/ul Normal 1.4-6.5 [facility] Comment on above: Performed By: #### C BC #### [facility] [address] [place] [address] Dr. Luis Manuel Asher Neutrophils/100 WBC (Bld) 78.4 % Critically high 43.0-75.0 [facility] Comment on above: Performed By: #### C BC #### [facility] [address] [place] [address] Dr. Luis Manuel Asher Platelet mean volume (Bld) [Entitic vol] 9.7 fL Normal 9.5-13.5 [facility] Comment on above: Performed By: #### C BC #### [facility] [address] [address] [address] Luis Manuel Asher PLT 148 103/ul Critically low 150-450 [facility] Comment on above: Performed By: #### C BC #### [facility] [address] [address] [address] Luis Manuel Asehr RBC 4.29 106/ul Critically low 4.70-6.10 [facility] Comment on above: Performed By: #### C BC #### [facility] [address] [address] [address] Luis Manuel Asher WBC 6.4 103/ul Normal 4.0-11.0 [facility] Comment on above: Performed By: #### C BC #### [facility] [address] [place] [address] Dr. Luis Manuel Asher GLYCOHEMOGLOBIN A1Con 2021 ADA RECOMMENDATION SEE BELOW Normal [facility] Comment on above: Result Comment: ADA RECOMMENDED LIMIT 4.0 - 6.0 ADA THERAPEUTIC TARGET < 7.0 ACTION SUGGESTED > 7.0 Performed By: #### A CETON #### [facility] [address] [place] [address] Dr. Luis Manuel Asher Glucose [Mass/Vol] 169 mg/dL Normal [facility] Comment on above: Performed By: #### A CETON #### [facility] [address] [place] [address] Dr. Luis Manuel Asher HbA1c (Bld) [Mass fraction] 7.5 % Critically high 4.5-6.2 [facility] Comment on above: Performed By: #### A CETON #### [facility] [address] [place] [address] Dr. Luis Manuel Asher PROF CHEM 8 (BAS METB)on Anion gap [Moles/Vol] 7.8 mmol/L Normal [facility] Comment on above: Performed By: #### B MP #### [facility] [address] [place] [address] Dr. Luis Manuel Asher Calcium [Mass/Vol] 8.3 mg/dL Critically low 8.5-10.1 [facility] Comment on above: Performed By: #### B MP #### [facility] [address] [address] [address] Luis Manuel Asher Chloride [Moles/Vol] 97 mmol/L Critically low 98-107 [facility] Comment on above: Performed By: #### B MP #### [facility] [address] [address] [address] Luis Manuel Asher CO2 [Moles/Vol] 29.6 mmol/L Normal 21.0-32.0 [facility] Comment on above: Performed By: #### B MP #### [facility] [address] [place] [address] Dr. Luis Manuel Asher Creatinine [Mass/Vol] 1.36 mg/dL Critically high 0.70-1.30 [facility] Comment on above: Performed By: #### B MP #### [facility] [address] [place] [address] Dr. Luis Manuel Asher EGFR-AF PALAUAN >60 Normal >=60 [facility] Comment on above: Performed By: #### B MP #### [facility] [address] [place] [address] Dr. Luis Manuel Asher EGFR-NON AF PALAUAN 50 mL/min/1.73m2 Critically low >=60 [facility] Comment on above: Performed By: #### B MP #### [facility] [address] [address] [address] Luis Manuel Asher Glucose [Mass/Vol] 331 mg/dL Critically high 74-106 [facility] Comment on above: Performed By: #### B MP #### [facility] [address] [place] [address] Dr. Luis Manuel Asher Potassium [Moles/Vol] 4.4 mmol/L Normal 3.5-5.1 [facility] Comment on above: Performed By: #### B MP #### [facility] [address] [place] [address] Dr. Luis Manuel Asher Sodium [Moles/Vol] 130 mmol/L Critically low 136-145 [facility] Comment on above: Performed By: #### B MP #### [facility] [address] [place] [address] Dr. Luis Manuel Asher Urea nitrogen [Mass/Vol] 15.0 mg/dL Normal 7.0-18.0 [facility] Comment on above: Performed By: #### B MP #### [facility] [address] [place] [address] Dr. Luis Manuel Asher Urea nitrogen/Creatinine [Mass ratio] 11.0 mg/mg Normal [facility] Comment on above: Performed By: #### B MP #### [facility] [address] [place] [address] Dr. Luis Manuel Asher FERRITINon 11-29-2021 Ferritin [Mass/Vol] 57.0 ng/mL Normal 17.9-464.0 [facility] Comment on above: Performed By: #### F ERR #### [facility] [address] [place] [address] Dr. Luis Manuel Asher GLYCOHEMOGLOBIN A1Con 2021 ADA RECOMMENDATION ADA THERAPEUTIC TARGET 6.0 - 7.0 ACTION SUGGESTED > 7.0 [facility] Comment on above: Performed By: #### A 1C #### [facility] [address] [place] [address] Dr. Luis Manuel Asher Glucose [Mass/Vol] 146 mg/dL Normal [facility] Comment on above: Performed By: #### A 1C #### [facility] [address] [place] [address] Dr. Luis Manuel Asher HbA1c (Bld) [Mass fraction] 6.7 % Critically high <=6.0 [facility] Comment on above: Performed By: #### A 1C #### [facility] [address] [place] [address] Dr. Luis Manuel Asher CBC AUTO DIFFon 10-30-2021 BASO # 0.0 103/ul Normal 0.0-0.1 [facility] Comment on above: Performed By: #### V ITAD #### [facility] [address] [place], [place] [id number] Dr. Luis Manuel Asher Basophils/100 WBC (Bld) 0.6 % Normal 0.2-2.0 [facility] Comment on above: Performed By: #### V ITAD #### [facility] [address] [place] [address] Dr. Luis Manuel Asher EO # 0.2 103/ul Normal 0.0-0.7 [facility] Comment on above: Performed By: #### V ITAD #### [facility] [address] [place] [address] Dr. Luis Manuel Asher Eosinophils/100 WBC (Bld) 2.9 % Normal 0.9-7.0 [facility] Comment on above: Performed By: #### V ITAD #### [facility] [address] [place] [address] Dr. Luis Manuel Asher Erythrocyte distribution width (RBC) [Ratio] 13.1 % Normal 11.0-15.0 [facility] Comment on above: Performed By: #### V ITAD #### [facility] [address] [place] [address] Dr. Luis Manuel Asher Hematocrit (Bld) [Volume fraction] 42.3 % Normal 42.0-54.0 [facility] Comment on above: Performed By: #### V ITAD #### [facility] [address] [place] [address] Dr. Luis Manuel Asher Hemoglobin (Bld) [Mass/Vol] 14.0 g/dL Normal 14.0-18.0 [facility] Comment on above: Performed By: #### V ITAD #### [facility] [address] [place] [address] Dr. Luis Manuel Asher IG # 0.02 10e3/ul Normal 0.00-0.03 [facility] Comment on above: Performed By: #### V ITAD #### [facility] [address] [place] [address] Dr. Luis Manuel Asher IG % 0.4 % Normal 0.0-0.5 [facility] Comment on above: Performed By: #### V ITAD #### [facility] [address] [address] [address] Luis Manuel Asher LYMPH # 0.8 103/ul Critically low 1.2-3.8 [facility] Comment on above: Performed By: #### V ITAD #### [facility] [address] [place] [address] Dr. Luis Manuel Asher Lymphocytes/100 WBC (Bld) 15.5 % Critically low 20.5-60.0 [facility] Comment on above: Performed By: #### V ITAD #### [facility] [address] [address] [address] Luis Manuel Asher MANUAL DIFF REQ NO Normal [facility] Comment on above: Performed By: #### V ITAD #### [facility] [address] [place] [address] Dr. Luis Manuel Asher MCH (RBC) [Entitic mass] 30.5 pg Normal 25.9-34.0 [facility] Comment on above: Performed By: #### V ITAD #### [facility] [address] [place] [address] Dr. Luis Manuel Asher MCHC (RBC) [Mass/Vol] 33.1 g/dL Normal 29.9-35.2 [facility] Comment on above: Performed By: #### V ITAD #### [facility] [address] [place] [address] Dr. Luis Manuel Asher MCV (RBC) [Entitic vol] 92.2 fL Normal 80.0-94.0 [facility] Comment on above: Performed By: #### V ITAD #### [facility] [address] [place] [address] Dr. Luis Manuel Asher MONO # 0.5 103/ul Normal 0.3-0.8 [facility] Comment on above: Performed By: #### V ITAD #### [facility] [address] [place] [address] Dr. Luis Manuel Asher Monocytes/100 WBC (Bld) 10.0 % Normal 1.7-12.0 [facility] Comment on above: Performed By: #### V ITAD #### [facility] [address] [address] [address] Luis Manuel Asher NEUT # 3.6 103/ul Normal 1.4-6.5 [facility] Comment on above: Performed By: #### V ITAD #### [facility] [address] [place] [address] Dr. Luis Manuel Asher Neutrophils/100 WBC (Bld) 70.6 % Normal 43.0-75.0 [facility] Comment on above: Performed By: #### V ITAD #### [facility] [address] [place] [address] Dr. Luis Manuel Asher Platelet mean volume (Bld) [Entitic vol] 10.1 fL Normal 9.5-13.5 [facility] Comment on above: Performed By: #### V ITAD #### [facility] [address] [place] [address] Dr. Luis Manuel Asher PLT 161 103/ul Normal 150-450 [facility] Comment on above: Result Comment: kayden vela reviewed for platelets Performed By: #### V ITAD #### [facility] [address] [place] [address] Dr. Luis Manuel Asher RBC 4.59 106/ul Critically low 4.70-6.10 [facility] Comment on above: Performed By: #### V ITAD #### [facility] [address] [place] [address] Dr. Luis Manuel Asher WBC 5.1 103/ul Normal 4.0-11.0 [facility] Comment on above: Performed By: #### V ITAD #### [facility] [address] [place] [address] Dr. Luis Manuel Asher PROF 14(COMP METB)on 022 Albumin [Mass/Vol] 3.9 g/dL Normal 3.5-5.0 [facility] Comment on above: Performed By: #### T SH, CMP #### [facility] [address] [place] [address] Dr. Luis Manuel Asher Albumin/Globulin [Mass ratio] 1.2 {ratio} Normal [facility] Comment on above: Performed By: #### T SH, CMP #### [facility] [address] [address] [address] Luis Manuel Asher ALP [Catalytic activity/Vol] 85 U/L Normal 38-126 [facility] Comment on above: Performed By: #### T SH, CMP #### [facility] [address] [address] [address] Luis Manuel Asher ALT [Catalytic activity/Vol] 28 U/L Normal 21-72 [facility] Comment on above: Performed By: #### T SH, CMP #### [facility] [address] [address] [address] Luis Manuel Asher Anion gap [Moles/Vol] 8.6 mmol/L Normal [facility] Comment on above: Performed By: #### T SH, CMP #### [facility] [address] [place] [address] Dr. Luis Manuel Asher AST [Catalytic activity/Vol] 14 U/L Critically low 17-59 [facility] Comment on above: Performed By: #### T SH, CMP #### [facility] [address] [place] [address] Dr. Luis Manuel Asher Bilirubin [Mass/Vol] 0.4 mg/dL Normal 0.2-1.3 [facility] Comment on above: Performed By: #### T SH, CMP #### [facility] [address] [place] [address] Dr. Luis Manuel Asher Calcium [Mass/Vol] 9.7 mg/dL Normal 8.4-10.2 [facility] Comment on above: Performed By: #### T SH, CMP #### [facility] [address] [address] [address] Luis Manuel Asher Chloride [Moles/Vol] 99 mmol/L Normal 98-107 [facility] Comment on above: Performed By: #### T SH, CMP #### [facility] [address] [address] [address] Luis Manuel Asher CO2 [Moles/Vol] 32.2 mmol/L Critically high 22.0-30.0 [facility] Comment on above: Performed By: #### T SH, CMP #### [facility] [address] [address] [address] Luis Manuel Asher Creatinine [Mass/Vol] 1.20 mg/dL Normal 0.66-1.25 [facility] Comment on above: Performed By: #### T SH, CMP #### [facility] [address] [address] [address] Luis Manuel Asher EGFR-AF PALAUAN >60 Normal >=60 [facility] Comment on above: Performed By: #### T SH, CMP #### [facility] [address] [address] [address] Luis Manuel Asher EGFR-NON AF PALAUAN 58 mL/min/1.73m2 Critically low >=60 [facility] Comment on above: Performed By: #### T SH, CMP #### [facility] [address] [address] [address] Luis Manuel Asher Globulin (S) [Mass/Vol] 3.2 g/dL Normal [facility] Comment on above: Performed By: #### T SH, CMP #### [facility] [address] [address] [address] Luis Manuel Asher Glucose [Mass/Vol] 135 mg/dL Critically high 74-106 [facility] Comment on above: Performed By: #### T SH, CMP #### [facility] [address] [address] [address] Luis Manuel Asher Potassium [Moles/Vol] 4.8 mmol/L Normal 3.4-5.0 [facility] Comment on above: Performed By: #### T SH, CMP #### [facility] [address] [address] [address] Luis Manuel Asher Protein [Mass/Vol] 7.1 g/dL Normal 6.1-8.2 [facility] Comment on above: Performed By: #### T SH, CMP #### [facility] [address] [address] [address] Luis Manuel Asher Sodium [Moles/Vol] 135 mmol/L Critically low 137-145 [facility] Comment on above: Performed By: #### T SH, CMP #### [facility] [address] [place] [address] Dr. Luis Manuel Asher Urea nitrogen [Mass/Vol] 19.0 mg/dL Normal 9.0-20.0 [facility] Comment on above: Performed By: #### T SH, CMP #### [facility] [address] [place] [address] Dr. Luis Manuel Asher Urea nitrogen/Creatinine [Mass ratio] 15.8 mg/mg Normal [facility] Comment on above: Performed By: #### T SH, CMP #### [facility] [address] [place] [address] Dr. Luis Manuel Asher TSHon 10-30-2021 TSH 1.146 uIU/mL Normal 0.470-4.680 [facility] Comment on above: Performed By: #### V ITAD #### [facility] [address] [place] [address] Dr. Luis Manuel Asher TSH RANGE SEE BELOW Normal [facility] Comment on above: Result Comment: <0.3 4 UIU/ml HYPERTHYROID 0.34-5.60 UIU/ml EUTHYROID >5.60 UIU/ml HYPOTHYROID Performed By: #### V ITAD #### [facility] [address] [place] [address] Dr. Luis Manuel Asher VITAMIN D 25 OHon 10-30-2021 VIT D 25-OH 84.6 ng/mL Normal [facility] Comment on above: Performed By: #### V ITAD #### [facility] [address] [place] [address] Dr. Luis Manuel Asher VIT D RANGES SEE BELOW Normal [facility] Comment on above: Result Comment: <20 ng/mL Vit D deficient 20 - <30 ng/mL Vit D insufficient 30 - 100 ng/mL Vit D sufficient >100 ng/mL Potential Toxicity Performed By: #### V ITAD #### [facility] [address] [place] [address] Dr. Luis Manuel Asher Vital Signs Date Time Vital Sign Value Performing Clinician Facility 02-05-2024 11:15-0400 Body height 180.34 cm [facility] 02-05-2024 11:15-0400 Body mass index (BMI) [Ratio] 32.8 kg/m2 [facility] 02-05-2024 11:15-0400 Body weight 106.65 kg [facility] 02-05-2024 11:15-0400 Diastolic blood pressure 75 mm[Hg] [facility] 02-05-2024 11:15-0400 Heart rate 84 /min [facility] 02-05-2024 11:15-0400 Respiratory rate 12 /min [facility] 02-05-2024 11:15-0400 Systolic blood pressure 135 mm[Hg] [facility] 11-06-2023 10:39-0500 Body height 180.34 cm [facility] 11-06-2023 10:39-0500 Body mass index (BMI) [Ratio] 32.8 kg/m2 [facility] 11-06-2023 10:39-0500 Body weight 106.82 kg [facility] 11-06-2023 10:39-0500 Diastolic blood pressure 68 mm[Hg] [facility] 11-06-2023 10:39-0500 Heart rate 89 /min [facility] 11-06-2023 10:39-0500 Respiratory rate 20 /min [facility] 11-06-2023 10:39-0500 Systolic blood pressure 122 mm[Hg] [facility] 08-07-2023 10:30-0500 Body height 180.34 cm Erich Ball Other [facility] [employer] Other 08-07-2023 10:30-0500 Body mass index (BMI) [Ratio] 34.42 kg/m2 Erich Ball Other [employer] [facility] [employer] Other 08-07-2023 10:30-0500 Body weight 111.95 kg Erich Ball Other [employer] [facility] [employer] Other 08-07-2023 10:30-0500 Diastolic blood pressure 74 mm[Hg] Erich Ball Other [employer] Other 08-07-2023 10:30-0500 Respiratory rate 12 /min Erich Ball Other [place] [employer] Other 08-07-2023 10:30-0500 Systolic blood pressure 136 mm[Hg] Erich Ball Other [place] [employer] Other 05-08-2023 11:00-0400 Body height 180.34 cm Erich Ball Other [place] [employer] Other 05-08-2023 11:00-0400 Body mass index (BMI) [Ratio] 34.84 kg/m2 Erich Ball Other [place] [employer] Other 05-08-2023 11:00-0400 Body weight 113.31 kg Erich Ball Other [place] [employer] Other 05-08-2023 11:00-0400 Diastolic blood pressure 79 mm[Hg] Erich Ball Other [employer] Other 05-08-2023 11:00-0400 Respiratory rate 12 /min Erich Ball Other [place] [employer] Other 05-08-2023 11:00-0400 Systolic blood pressure 161 mm[Hg] Erich Ball Other [place] [employer] Other 03-11-2023 12:48-0400 Body height 182.88 cm Erich E Ball Work Phone: [facility] [employer] [facility] DO Work Phone: 03-11-2023 12:48-0400 Body mass index (BMI) [Ratio] 33.92 kg/m2 Erich E Ball Work Phone: [facility] [employer] 250 DO Work Phone: 03-11-2023 12:48-0400 Body surface area Derived from formula 2.34 m2 Erich E Ball Work Phone: [facility] [employer] 250 DO Work Phone: 03-11-2023 12:48-0400 Body weight 113.46 kg Erich E Ball Work Phone: [facility] [employer] 250 DO Work Phone: 03-11-2023 12:48-0400 Diastolic blood pressure 72 mm[Hg] Erich E Ball Work Phone: [facility] [employer] 250 DO Work Phone: 03-11-2023 12:48-0400 Heart rate 78 /min Erich E Ball Work Phone: [facility] [employer] 250 DO Work Phone: 03-11-2023 12:48-0400 Systolic blood pressure 128 mm[Hg] Erich E Ball Work Phone: [facility] [employer] 250 DO Work Phone: 02-05-2023 14:30-0400 Body height 180.34 cm Erich Ball Other [employer] [facility] [employer] Other 02-05-2023 14:30-0400 Body mass index (BMI) [Ratio] 35.42 kg/m2 Erich Ball Other [employer] Other 02-05-2023 14:30-0400 Body weight 115.21 kg Erich Ball Other [employer] Other 02-05-2023 14:30-0400 Diastolic blood pressure 74 mm[Hg] Erich Ball Other [employer] Other 02-05-2023 14:30-0400 Respiratory rate 12 /min Erich Ball Other [employer] Other 02-05-2023 14:30-0400 Systolic blood pressure 117 mm[Hg] Erich Ball Other [facility] [employer] Other 12-17-2022 14:49-0400 Body height 182.88 cm Erich E Ball Work Phone: [facility] [employer] 250 DO Work Phone: 12-17-2022 14:49-0400 Body mass index (BMI) [Ratio] 34.31 kg/m2 Erich E Ball Work Phone: [facility] 250 DO Work Phone: 12-17-2022 14:49-0400 Body surface area Derived from formula 2.35 m2 Erich E Ball Work Phone: [facility] 250 DO Work Phone: 12-17-2022 14:49-0400 Body weight 114.76 kg Erich E Ball Work Phone: [facility] 250 DO Work Phone: 12-17-2022 14:49-0400 Diastolic blood pressure 70 mm[Hg] Erich E Ball Work Phone: [facility] 250 DO Work Phone: 12-17-2022 14:49-0400 Heart rate 76 /min Erich E Ball Work Phone: [facility] 250 DO Work Phone: 12-17-2022 14:49-0400 Systolic blood pressure 128 mm[Hg] Erich E Ball Work Phone: [facility] 250 DO Work Phone: 12-11-2022 14:00-0400 63 1 Erich E Ball Work Phone: [facility] [address] [place] Work Phone: Comment on above: [id number] 11-21-2022 12:00-0400 Body height 180.34 cm Erich Ball Other [place] [employer] Other 11-21-2022 12:00-0400 Body mass index (BMI) [Ratio] 35.37 kg/m2 Erich Ball Other [place] [employer] Other 11-21-2022 12:00-0400 Body weight 115.03 kg Erich Ball Other [place] [employer] Other 11-21-2022 12:00-0400 Diastolic blood pressure 73 mm[Hg] Erich Ball Other [place] [employer] Other 11-21-2022 12:00-0400 Respiratory rate 16 /min Erich Ball Other [place] [employer] Other 11-21-2022 12:00-0400 Systolic blood pressure 144 mm[Hg] Erich Ball Other [place] [employer] Other 11-12-2022 10:48-0400 Diastolic blood pressure 80 mm[Hg] Erich E Ball Work Phone: [facility] [employer] 250 DO Work Phone: 11-12-2022 10:48-0400 Systolic blood pressure 142 mm[Hg] Erich E Ball Work Phone: [facility] [employer] 250 DO Work Phone: 11-12-2022 10:27-0400 Diastolic blood pressure 86 mm[Hg] Erich E Ball Work Phone: [facility] [employer] 250 DO Work Phone: 11-12-2022 10:27-0400 Systolic blood pressure 148 mm[Hg] Erich E Ball Work Phone: [facility] [employer] 250 DO Work Phone: 11-12-2022 10:22-0400 Body height 182.88 cm Erich E Ball Work Phone: [facility] [employer] 250 DO Work Phone: 11-12-2022 10:22-0400 Body mass index (BMI) [Ratio] 34.31 kg/m2 Erich E Ball Work Phone: [facility] [employer] 250 DO Work Phone: 11-12-2022 10:22-0400 Body surface area Derived from formula 2.35 m2 Erich E Ball Work Phone: [facility] [employer] 250 DO Work Phone: 11-12-2022 10:22-0400 Body weight 114.76 kg Erich E Ball Work Phone: [facility] [employer] 250 DO Work Phone: 11-12-2022 10:22-0400 Diastolic blood pressure 86 mm[Hg] Erich E Ball Work Phone: [facility] [employer] 250 DO Work Phone: 11-12-2022 10:22-0400 Heart rate 85 /min Erich E Ball Work Phone: [facility] [employer] 250 DO Work Phone: 11-12-2022 10:22-0400 Systolic blood pressure 150 mm[Hg] Erich E Ball Work Phone: [facility] [employer] 250 DO Work Phone: 10-26-2022 11:30-0500 Body height 180.34 cm Erich Ball Other [facility] [employer] Other 10-26-2022 11:30-0500 Body mass index (BMI) [Ratio] 34.22 kg/m2 Erich Ball Other [place] [employer] Other 10-26-2022 11:30-0500 Body weight 111.31 kg Erich Ball Other [facility] [employer] Other 10-26-2022 11:30-0500 Diastolic blood pressure 68 mm[Hg] Erich Ball Other [employer] [facility] [employer] Other 10-26-2022 11:30-0500 Respiratory rate 16 /min Erich Ball Other [employer] [facility] [employer] Other 10-26-2022 11:30-0500 SaO2% (BldA) [Mass fraction] 97 % Erich Ball Other [facility] [employer] Other 10-26-2022 11:30-0500 Systolic blood pressure 122 mm[Hg] Erich Ball Other [facility] [employer] Other 09-09-2022 08:15-0500 SaO2% (BldA) [Mass fraction] 93 % Pascual PRINCE [facility] 09-08-2022 11:46-0500 Body temperature 97.8 [degF] DO Erich Ball Work Phone: [facility] 09-08-2022 11:46-0500 Diastolic blood pressure 73 mm[Hg] DO Erich Ball Work Phone: [facility] 09-08-2022 11:46-0500 Heart rate 82 /min DO Erich Ball Work Phone: [facility] 09-08-2022 11:46-0500 Inhaled oxygen flow rate 2 L/min DO Erich Ball Work Phone: [facility] 09-08-2022 11:46-0500 Respiratory rate 17 /min DO Erich Ball Work Phone: [facility] 09-08-2022 11:46-0500 SaO2% (BldA) [Mass fraction] 92 % DO Erich Ball Work Phone: [facility] 09-08-2022 11:46-0500 Systolic blood pressure 121 mm[Hg] DO Erich Key Work Phone: [facility] 09-08-2022 06:00-0500 Body weight 110.3 kg DO Erich Key Work Phone: [facility] 09-05-2022 15:05-0500 Body height 180.34 cm DO Erich Key Work Phone: [facility] Encounters Encounter Date Encounter Type Care Provider Facility Start: 04-15-2024 ambulatory Carlos A PETERS Facility :[facility] Start: 02-05-2024 End: 02-05-2024 ambulatory [facility] Work Phone: Start: 02-05-2024 End: 02-05-2024 Patient encounter procedure [facility] Work Phone: Start: 01-30-2024 End: 01-30-2024 ambulatory JAILYN SEPULVEDA Not Available Start: 01-29-2024 End: 01-30-2024 ambulatory Carlos A PETERS Facility:[facility] Start: 01-29-2024 End: 01-29-2024 Patient encounter procedure Carlos A PETERS [facility] Start: 01-16-2024 Non-patient / Non-visit [facility] Work Phone: Start: 01-13-2024 Non-patient / Non-visit [facility] Work Phone: Start: 12-19-2023 End: 12-19-2023 ambulatory [facility] Work Phone: Start: 12-19-2023 End: 12-19-2023 Patient encounter procedure [facility] Work Phone: Start: 11-06-2023 End: 11-06-2023 Patient encounter procedure [facility] Work Phone: Start: 10-03-2023 End: 10-03-2023 ambulatory Erich Key Other [employer] Other Start: 10-03-2023 Telephone encounter Erich Key [facility] Start: 10-03-2023 Patient encounter procedure [facility]- Start: 10-02-2023 End: 10-02-2023 ambulatory Erich Key Other [employer] Other Start: 10-02-2023 Telephone encounter Erich Key [facility] Start: 2023 End: 2023 ambulatory Erich Key Other [employer] Other Start: 2023 Telephone encounter Erich Key [facility] Start: 08-23-2023 End: 08-23-2023 ambulatory Erich Key Other [employer] Other Start: 08-23-2023 Telephone encounter Erich Key [facility] Start: 08-07-2023 End: 08-07-2023 ambulatory Erich Key Other [employer] Other Start: 08-07-2023 Office outpatient vi sit 25 minutes Erich Key [facility] Start: 07-23-2023 End: 07-23-2023 ambulatory Erich Key Other [employer] Other Start: 07-23-2023 Nursing evaluation o f patient and report Erich Key [facility] Start: 06-18-2023 End: 06-18-2023 ambulatory Erich Javon Other [employer] Other Start: 06-18-2023 Nursing evaluation o f patient and report Erich Key [facility] Start: 06-05-2023 End: 06-05-2023 ambulatory Erich Javon Other [employer] Other Start: 06-05-2023 Telephone encounter Erich Key [facility] Start: 06-04-2023 End: 06-04-2023 ambulatory Erich Key Other [employer] Other Start: 06-04-2023 Telephone encounter Erich JAVIER [facility] Start: 05-08-2023 End: 05-08-2023 ambulatory Erich Key Other [employer] Other Start: 05-08-2023 Patient encounter procedure Erich Key [facility] Start: 04-22-2023 End: 04-22-2023 ambulatory Erich Key Other [employer] Other Start: 04-22-2023 Telephone encounter Erich JAVIER [facility] Start: 03-20-2023 End: 03-20-2023 ambulatory Erich Key Other [employer] Other Start: 03-20-2023 Nursing evaluation o f patient and report Erich Key [facility] Start: 03-11-2023 Office outpatient vi sit 15 minutes Erich Key Work Phone: [facility] 250 DO Work Phone: Start: 03-11-2023 ambulatory MD CATHLEEN LOPEZ Facilit y: Start: 02-14-2023 End: 02-14-2023 ambulatory Erich Key Other [employer] Other Start: 02-14-2023 Telephone encounter Erich JAVIER [facility] Start: 02-13-2023 End: 02-13-2023 ambulatory Erich Key Other [employer] Other Start: 02-13-2023 Telephone encounter Erich JAVIER [facility] Start: 02-11-2023 End: 02-11-2023 ambulatory Staci Burnette Other [employer] Other Start: 02-11-2023 Nursing evaluation o f patient and report Staci Burnette [facility] Start: 02-05-2023 End: 02-05-2023 ambulatory Erich Key Other [employer] Other Start: 02-05-2023 Office outpatient vi sit 25 minutes Erich Key [facility] Start: 01-10-2023 End: 01-10-2023 ambulatory Erich Key Other [employer] Other Start: 01-10-2023 Nursing evaluation o f patient and report Erich Key [facility] Start: 01-10-2023 Telephone encounter Erich Key [facility] Start: 12-17-2022 Office outpatient vi sit 25 minutes Erich E Ball Work Phone: [facility] [employer] 250 DO Work Phone: Start: 12-17-2022 ambulatory MD CATHLEEN LOPEZ Facilit y:[id number] Start: 12-12-[address] Cathleen Lopez Facili ty:[id number] Start: 12-11-2022 Patient encounter procedure Erich E Ball Work Phone: [facility] [employer] [address] [place] Work Phone: Start: 12-11-[address] Cathleen Joseph ty:[id number] Start: 12-03-2022 End: 12-03-2022 ambulatory Erich Key Other [employer] Other Start: 12-03-2022 Telephone encounter Erich JAVIER G [facility] Start: 11-21-2022 End: 11-21-2022 ambulatory Erich Key Other [employer] Other Start: 11-21-2022 Office outpatient vi sit 25 minutes Erich Key [facility] Start: 11-12-2022 Office consultation new/estab patient 60 min Erich E Ball Work Phone: [facility] [employer] 250 DO Work Phone: Start: 11-12-2022 Patient encounter procedure Erich Key Work Phone: [facility] 250 DO Work Phone: Start: 11-12-2022 ambulatory MD CATHLEEN Rivera y: Start: 10-26-2022 End: 10-26-2022 ambulatory Erich Key Other [employer] Other Start: 10-26-2022 Office outpatient vi sit 25 minutes [facility] Start: 10-07-2022 End: 10-07-2022 ambulatory Erich Key Other [employer] Other Start: 10-07-2022 Telephone encounter [facility] Start: 10-03-2022 End: 10-03-2022 ambulatory Erich Key Other [employer] Other Start: 10-03-2022 Telephone encounter [facility] Start: 09-25-2022 End: 09-25-2022 ambulatory Erich Key Other [employer] Other Start: 09-25-2022 Telephone encounter [facility] Start: 09-19-2022 End: 09-19-2022 [facility] Start: 09-10-2022 End: 09-10-2022 ambulatory Erich Key Other [employer] Other Start: 09-10-2022 Telephone encounter [facility] Start: 09-10-2022 End: 09-10-2022 Off-Site [facility] Start: 09-08-2022 End: 09-19-2022 Evaluation and management of inpatient Pascual PRINCE [facility] Start: 09-05-2022 End: 09-05-2022 ambulatory Erich Key Other [employer] Other Start: 09-05-2022 Telephone encounter Erich Key No rt [employer] Start: 09-05-[address] Erich Key Facility:[id number] Start: 09-04-2022 End: 09-08-2022 Evaluation and management of inpatient Rafemmie Velasquez Facility:[facility] Start: 09-04-2022 End: 09-08-2022 Evaluation and management of inpatient DO Erich Javon Work Phone: [facility] [place] [facility] Work Phone: Start: 09-04-2022 End: 09-04-[address] ERICH KEY Facility:[id number] Start: 04-24-2022 End: 04-25-[address] ERICH KEY Facility:[facility] Start: 04-23-2022 Adult health examination Jorge L monica Javon Other [employer] Other Start: 11-29-2021 End: 11-30-[address] [...] structure) Pascual PRINCE Start: 01-12-2021 Cystourethroscopy wi dilation of urethral stricture Pascual PRINCE Start: 09-02-2014 Transurethral prostatectomy Pascual PRINCE Cataract surgery Erich Key Work Phone: Depression screening Ashley Key Other Operation on colon Erich Key Work Phone: Surgical repair of u pper extremity Erich Key Work Phone: Tonsillectomy Pascual [place] D Tonsillectomy Erich Grijalva Bal l Work Phone: Total colectomy [facility] [place] DianaOD Total colonoscopy Erich Key Work Phone: Plan of Treatment Date Care Activity Detail Author Start: 03-11-2023 FUV, Provider: Cathleen Lopez, Status: Pen, Time: 12:45 PM FUV, Provider: Cathleen Lopez, Status: Pen, [facility]: [facility] Work [facility]: Start: 12-17-2022 FUV, Provider: Cathleen Lopez, Status: Pen, Time: 2:45 PM FUV, Provider: Cathleen Lopez, Status: Pen, Time: 2:45 PM [facility] Work [facility]: Start: 12-12-2022 REST ONLY, Provider: DON HHVI NUCLEAR 01,[id number], Status: Pen, Time: 12:30 PM REST ONLY, Provider: DON HHVI NUCLEAR 01,[id number], Status: Pen, Time: 12:30 [facility] Work [facility]: Start: 12-11-2022 STRESSNUC2, Provider : DON HHVI NUCLEAR 01,[id number], Status: Pen, Time: 2:00 PM STRESSNUC2, Provider: DON HHVI NUCLEAR 01,[id number], Status: Pen, [facility]: 2:00 [facility] Work Phone: Start: 09-08-2022 [facility] Start: 09-04-2022 Hospital admission [facility] Patient referral [facility] Work Phone: Immunizations Immunization Date Immunization Notes Care Provider Liz dixon 06-10-2022 Fluzone High-Dose Quadrivalent 0.7 ML Intramuscular Suspension Prefilled Syringe Erich Key Work Phone: [facility] 250 DO Work Phone: 06-10-2022 influenza virus vaccine, unspecified formulation P[facility] PRINCE [facility] 01-23-2022 Comirnaty 30 MCG/0.3 ML Intramuscular Suspension Erich Key Work Phone: [facility] 250 DO Work Phone: 01-23-2022 SARS-CoV-2 mRNA (lkttxgtsbmy-uwgu-rietu se) vaccine Pascual PRINCE [facility] 07-05-2021 COVID-19, mRNA, LNP- S, PF, 100 mcg or 50 mcg dose Pascual PRINCE [facility] 06-23-2021 influenza virus vaccine, split virus (incl. purified surface antigen) Erich Key Other [facility] Other 06-23-2021 influenza virus vaccine, unspecified formulation [facility] 04-27-2021 tetanus toxoid, redu angela diphtheria toxoid, and acellular pertussis vaccine, adsorbed Pascual PRINCE [facility] Comment on above: Early/Late Reason: E mikki/Late Reason: Other : . 10-12-2020 SARS-CoV-2 (COVID-19 ) mRNA-1273 vaccine Pascual PRINCE [facility] [place] 09-14-2020 SARS-CoV-2 (COVID-19 ) mRNA-2654 vaccine Pascual PRINCE [facility] 06-02-2020 influenza virus vaccine, unspecified formulation Pascual PRINCE [facility] 09-19-2019 zoster vaccine, live Benjami n Javon Other [facility] 05-30-2019 influenza virus vaccine, split virus (incl. purified surface antigen) Erich Key Other [facility] Other 05-30-2019 influenza virus vaccine, unspecified formulation [facility] 05-30-2019 zoster vaccine recombinant Pascual PRINCE [facility] 06-11-2018 influenza virus vaccine, split virus (incl. purified surface antigen) Erich Key Other [facility] Other 06-11-2018 influenza virus vaccine, unspecified formulation [facility] 06-01-2017 influenza virus vaccine, split virus (incl. purified surface antigen) Erich Key Other [facility] Other 06-01-2017 influenza virus vaccine, unspecified formulation [facility] 02-25-2016 pneumococcal polysaccharide vaccine, 23 valent Erich Key Other [facility] 12-18-2014 pneumococcal conjuga te vaccine, 13 valent Erich Key Other [facility] 07-11-2005 influenza virus vaccine, whole virus Erich Key Work Phone: [facility] 250 DO Work Phone: 07-11-2005 pneumococcal polysaccharide vaccine, 23 valent Pascual [facility] Payers Date Payer Category Payer Self-pay 1961 Medicare [id number] 1961 Unknown [id number] 1940 Unknown [id number] 2.16.84 [id number] 1940 Unknown [id number] 2.16.84 0.1.495939.3.579.2.593 1938 Unknown [id number] 2.16.84 0.1.663342.3.579.2.593 1938 Unknown [id number] 2.16.84 0.1.221963.3.579.2.593 1938 Unknown [id number] 2.16.8 40.1.676819.3.579.2.1068 1938 Unknown [id number] 2.16.8 40.1.864563.3.579.2.1068 1938 Unknown [id number] 2.16.8 40.1.522581.3.579.2.1068 1938 Unknown [id number] 2.16. 840.1.741317.3.579.2.356 1938 Unknown [id number] 2.16. 840.1.714514.3.579.2.356 1938 Unknown [id number] 2.16. 840.1.447787.3.579.2.356 1938 Unknown [id number] 2.16. 840.1.360793.3.579.2.356 1938 Unknown [id number] 2.16.8 40.1.391828.3.579.2.727 1938 Unknown [id number] 2.16.8 40.1.114259.3.579.2.727 1938 Unknown [id number] 2.16.8 40.1.405873.3.579.2.727 1938 Unknown [id number] 2.16.84 0.1.258379.3.579.2.1259 Unknown [id number] 2.16.8 40.1.043145.3.579.2.531 Unknown Social History Date Type Detail Facility Start: 08-07-2021 End: 01-29-2024 Tobacco smoking status Light tobacco smoker (finding) [facility] Sex Assigned At Male [facility] Start: 09-04-2022 End: 10-03-2023 Tobacco smoking status [facility] Ex-smoker (finding) [facility] Start: 1940 Sex Assigned At Male [facility] No alcohol use No alcohol use [facility] 250 DO Work Phone: Comment on above: quit smoking in 2019 ; Medical Equipment Procedure Code Equipment Code Equipment Origin al Text Equipment Identifier Dates HUMERUS FRACTURE ORIF Alissa DO, Edward K. [...] FDA Start: 05-01-2021 HUMERUS FRACTURE ORIF Alissa CRITSINA Edward K. 05/01/21 Unknown Arm L FDA [...] 05/01/21 Unknown Arm L FDA Start: 05-01-2021 Blood Sugar Diagnostic (Freestyle Lite Strips) strip Start: 11-05-2023 HUMERUS FRACTURE ORIF Alissa CRISTINA Edward K. [...] 05/01/21 Unknown Arm L FDA Start: 05-01-2021 Blood Sugar Diagnostic (Freestyle Lite Strips) strip Start: 01-09-2024 Blood Sugar Diagnostic (Freestyle Lite Strips) strip Start: 11-05-2023 Lancets (Freesty le Lancets) 28 gauge misc Start: 01-13-2024 Lancets (Freesty le Lancets) 28 gauge misc Start: 01-13-2024 End: 05-13-2024 Goals Date Patient Goal Desired Activity /State Functional Status Date Assessment Result Facility 09-08-2022 Functional status [facility] at [facility] Work Phone: Mental Status Date Assessment Result Facility 09-08-2022 Cognitive function Cognitive Sta tus Patient at [facility] Work Phone: Clinical Notes 12-02-2019 to 01-29-2024 Note Date & Type Note Facility 01-29-2024 Hospital Discharg e instructions Patient Education 01/29/2024 14:39:18 Overactive Bladder, Adult Overactive Bladder, Adult Overactive bladder is a condition in which a person has a sudden and frequent need to urinate. A person might also leak urine if he or she cannot get to the bathroom fast enough (urinary incontinence). Sometimes, symptoms can interfere with work or social activities. What are the causes? Overactive bladder is associated with poor nerve signals between your bladder and your brain. Your bladder may get the signal to empty before it is full. You may also have very sensitive muscles that make your bladder squeeze too soon. This condition may also be caused by other factors, such as: Medical conditions: ?Urinary tract infection. ?Infection of nearby tissues. ?Prostate enlargement. ?Bladder stones, inflammation, or tumors. ?Diabetes. ?Muscle or nerve weakness, especially from these conditions: ?A spinal cord injury. ?Stroke. ?Multiple sclerosis. ?Parkinson's disease. Other causes: ?Surgery on the uterus or urethra. ?Drinking too much caffeine or alcohol. ?Certain medicines, especially those that eliminate extra fluid in the body (diuretics). ?Constipation. What increases the risk? You may be at greater risk for overactive bladder if you: Are an older adult. Smoke. Are going through menopause. Have prostate problems. Have a neurological disease, such as stroke, dementia, Parkinson's disease, or multiple sclerosis (MS). Eat or drink alcohol, spicy food, caffeine, and other things that irritate the bladder. Are overweight or obese. What are the signs or symptoms? Symptoms of this condition include a sudden, strong urge to urinate. Other symptoms include: Leaking urine. Urinating 8 or more times a day. Waking up to urinate 2 or more times overnight. How is this diagnosed? This condition may be diagnosed based on: Your symptoms and medical history. A physical exam. Blood or urine tests to check for possible causes, such as infection. You may also need to see a health care provider who specializes in urinary tract problems. This is called a urologist. How is this treated? Treatment for overactive bladder depends on the cause of your condition and whether it is mild or severe. Treatment may include: Bladder training, such as: ?Learning to control the urge to urinate by following a schedule to urinate at regular intervals. ?Doing Kegel exercises to strengthen the pelvic floor muscles that support your bladder. Special devices, such as: ?Biofeedback. This uses sensors to help you become aware of your body's signals. ?Electrical stimulation. This uses electrodes placed inside the body (implanted) or outside the body. These electrodes send gentle pulses of electricity to strengthen the nerves or muscles that control the bladder. ?Women may use a plastic device, called a pessary, that fits into the vagina and supports the bladder. Medicines, such as: ?Antibiotics to treat bladder infection. ?Antispasmodics to stop the bladder from releasing urine at the wrong time. ?Tricyclic antidepressants to relax bladder muscles. ?Injections of botulinum toxin type A directly into the bladder tissue to relax bladder muscles. Surgery, such as: ?A device may be implanted to help manage the nerve signals that control urination. ?An electrode may be implanted to stimulate electrical signals in the bladder. ?A procedure may be done to change the shape of the bladder. This is done only in very severe cases. Follow these instructions at home: Eating and drinking Make diet or lifestyle changes recommended by your health care provider. These may include: ?Drinking fluids throughout the day and not only with meals. ?Cutting down on caffeine or alcohol. ?Eating a healthy and balanced diet to prevent constipation. This may include: ?Choosing foods that are high in fiber, such as beans, whole grains, and fresh fruits and vegetables. ?Limiting foods that are high in fat and processed sugars, such as fried and sweet foods. Lifestyle Lose weight if needed. Do not use any products that contain nicotine or tobacco. These include cigarettes, chewing tobacco, and vaping devices, such as e-cigarettes. If you need help quitting, ask your health care provider. General instructions Take xyqa-kvq-vlbcpgy and prescription medicines only as told by your health care provider. If you were prescribed an antibiotic medicine, take it as told by your health care provider. Do not stop taking the antibiotic even if you start to feel better. Use any implants or pessary as told by your health care provider. If needed, wear pads to absorb urine leakage. Keep a log to track how much and when you drink, and when you need to urinate. This will help your health care provider monitor your condition. Keep all follow-up visits. This is important. Contact a health care provider if: You have a fever or chills. Your symptoms do not get better with treatment. Your pain and discomfort get worse. You have more frequent urges to urinate. Get help right away if: You are not able to control your bladder. Summary Overactive bladder refers to a condition in which a person has a sudden and frequent need to urinate. Several conditions may lead to an overactive bladder. Treatment for overactive bladder depends on the cause and severity of your condition. Making lifestyle changes, doing Kegel exercises, keeping a log, and taking medicines can help with this condition. This information is not intended to replace advice given to you by your health care provider. Make sure you discuss any questions you have with your health care provider. Document Revised: 05/08/2021 Document Reviewed: 05/08/2021 [employer] Patient Education 2022 [place]. Follow Up Care 01/28/2024 16:14:14 With:LORRAINE DAUGHERTY, Carlos A Hamilton, URL Address: [address] [place], [place] [id number]- When: Unknown [facility] 2023 Evaluation note Encounter Date Diagnosis Assessment Notes Sep, Acute prostatitis (ICD-10 - N41.0) [facility] Other [id number] Evaluation note* Encounter Date Diagnosis Assessment Notes [...] HOB elevated, avoid back sleeping. Weight loss [facility] Other 11-21-2023 Evaluation note* Encounter Date Diagnosis Assessment Notes Treatment Notes Treatment Clinical Notes Jul, Pernicious anemia (ICD-10 - D51.0) [facility] Other 10-17-2023 Evaluation note* Encounter Date Diagnosis Assessment Notes Treatment Notes Treatment Clinical Notes Jun, Pernicious anemia (ICD-10 - D51.0) [facility] Other 09-06-2023 Evaluation note* Encounter Date Diagnosis [...] is aware of the benefits associated with AYSMANI: With continued use, the patient reduces the risk for ND, CVA, HTN, cardiac dysrhythmias and sudden cardiac [...] to respiratory infections, vascular disease and cancers. [facility] Other 08-21-2023 Evaluation note* Encounter Date Diagnosis Assessment Notes Treatment Notes Treatment Clinical Notes Apr, Mucopurulent chronic bronchitis (ICD-10 - J41.1) [facility] Other 07-19-2023 Evaluation note* Encounter Date Diagnosis Assessment Notes Treatment Notes Treatment Clinical Notes Mar, Pernicious anemia (ICD-10 - D51.0) [facility] Other 06-12-2023 Evaluation note* Encounter Date Diagnosis Assessment Notes Treatment Notes Treatment Clinical Notes Jan, Pernicious anemia (ICD-10 - D51.0) [facility] Other 06-06-2023 Evaluation note* Encounter Date Diagnosis [...] risk for cerebrovascular and cardiovascular disease. Jan, group home (current) use of insulin (ICD-10 - Z79.4) Jan, Bilateral pulmonary infiltrates (ICD-10 - R91.8) Denies dyspnea, cough, wheezing or hemoptysis. Denies fever, chills or any additional symptoms of intercurrent infection Jan, Fatigue, unspecified type (ICD-10 - R53.83) [facility] Other 05-11-2023 Evaluation note* Encounter Date Diagnosis Assessment Notes Treatment Notes Treatment Clinical Notes December, Pernicious anemia (ICD-10 - D51.0) [facility] Other 03-22-2023 Evaluation note* Encounter Date Diagnosis [...] respiratory infections, vascular disease and cancers. 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 Control BP and HR Oct, Pernicious anemia (ICD-10 - D51.0) COntinue B12 injections Oct, Pneumonia of lower lobe due to infectious organism, unspecified laterality (ICD-10 - J18.9) Review imaging results from [facility]. CT vs CXR f/u to ensure resolution [facility] Other 02-05-2023 Evaluation note* Encounter Date Diagnosis Assessment Notes Treatment Notes Treatment Clinical Notes Oct, Mucopurulent chronic bronchitis (ICD-10 - J41.1) [facility] Other 01-24-2023 Evaluation note* Encounter Date Diagnosis Assessment Notes Treatment Notes Treatment Clinical Notes Sep, Community acquired pneumonia, unspecified laterality (ICD-10 - J18.9) [employer] [facility] Other 01-24-2023 Evaluation note* Encounter Date Diagnosis Assessment Notes Treatment Notes Treatment Clinical Notes Sep, Mucopurulent chronic bronchitis (ICD-10 - J41.1) Sep, Chronic venous insufficiency (ICD-10 - I87.2) [facility] Other 01-07-2023 Discharge summary Author Randolph Velasquez [facility] September 08, 2022 9:31am Note Date/Time September 08, 2022 9: 31am [facility] [address] [place] [address] Discharge Summary Signed Patient: Jose L Mauricio MR#: [id number] : 1940 Acct:[id number] Age/Sex: 81 / M Adm Date: 3 Loc: Room: [address] [place] [address]: Randolph Velasquez MD Copies to: [...] Course Hospital course: Patient was transferred to [facility] with respiratory distress and hypoxic respiratory failure requiring the use of oxygen. I orderedCAT scan of the chest which showed bilateral infiltration suspected to have pneumonia. Patient had bilateral wheezing indicative of acute COPD exacerbationand bronchospasm. Blood culture from [place] came back negative thus far Patient was [...] ask your primary care provider to obtain [facility] records entirely to follow up on all of the abnormal physical, laboratory, and imaging findings that I have not addressed. Please return back to the emergency room or seek medical attention if your symptoms worsen or return. Discharging you from [facility] does not mean that your medical care [...] % (Auto) 91.6, Lymph % (Auto) 3.6, [place] % (Auto) 4.5, Eos % (Auto)0.0, Baso % (Auto) 0.3, Nucleat RBC Rel Count 0.0, Neut # (Auto) 11.9 H, Lymph #(Auto) 0.5 L, [place] # (Auto) 0.6, Eos # (Auto) 0.0, [...] at rest or with minimal exertion. HEENT: Beltrami conjunctiva and NL buccal mucosa Neck: Supple, [...] []] Discharge Plan Discharge Plan Patient Disposition: Senior Care Facility Additional Instructions: I may not have addressed or treated all of your medical illnesses or the abnormal blood work or imaging studies during this hospitalization. Please ask your primary care provider to obtain [facility] records entirely to follow up on all [...] seen on current CAT scan done at [facility]. Please collaborate with his primary care doctor [...] symptoms worsen or return. Discharging you from [facility] does not mean that your medical care [...] PO HS fluticasone propionate [Flonase] 50 mcg/actuation Gage,Suspension 1 spray INTRANASAL DAILY PRN (Reason: Congestion) [...] <Electronically signed by Randolph Velasquez MD> 09/08/22930 [facility] Work Phone: 1(301) 169-610301-06-2023 Progress note Author Randolph Velasquez [facility] September 07, 2022 9:02am Note Date/Time September 07, 2022 9: 02am [facility] [address] [place] [address] Hospitalist Progress Note Signed Patient: Jose L Mauricio MR#: [id number] : 1940 Acct:[id number] Age/Sex: 81 / M Adm Date: 3 Loc: Room: [address] [place] [address] Type: ADM IN Attending Dr: Randolph Velasquez [...] and is sitting up in bed HEENT: Beltrami conjunctiva and NL buccal mucosa Neck: Supple, [...] 09:00 09/06/22 09:21 Aspirin 81 Mg Tablet.Dr HOPKINS 09/05/23 08:59 81 mg DAILY SHARI Administration [...] Propionate 1 spray 09/04/22 23:34 Fluticasone Propionate Gage 120 Gage/16 Gm Bottle INTRANASAL 09/04/23 23:33 DAILY PRN [...] over the last 24 hours. We called [place] to inquire about the blood culture. Blood culture from [place] showed no growth thus far. Swallow evaluation [...] signed by Randolph Velasquez MD> 09/07/22 0902 [facility] Work Phone: 1(181) 698-347501-05-2023 Progress note Author Randolph Velasquez [facility] September 06, 2022 9:15am Note Date/Time September 06, 2022 9: 15am [facility] [address] [place] [address] Hospitalist Progress Note Signed Patient: Jose L Mauricio MR#: [id number] : 1940 Acct:[id number] Age/Sex: 81 / M Adm Date: 3 Loc: Room: [address] [place] [address] Type: ADM IN Attending Dr: Randolph Velasquez [...] and is sitting up in bed HEENT: Beltrami conjunctiva and NL buccal mucosa Neck: Supple, [...] 09/05/22 09:00 09/05/22 09:50 Aspirin 81 Mg Tablet. PO 09/05/23 08:59 81 mg DAILY SHARI Administration Dextrose 0 gm 09/05/22 09:39 Dextrose 20 % In Water 10 Gm/50 Ml Syringe IV-PUSH 09/05/23 09:38 PRN PRN Hypoglycemia Enoxaparin Sodium 40 mg 09/05/22 10:00 09/05/22 10:16 Enoxaparin 40 Mg/0.4 Ml Syringe SUBCUT 09/05/23 09:59 40 mg DAILY@1000 SHARI Administration Fluticasone Propionate 1 spray 09/04/22 23:34 Fluticasone Propionate Gage 120 Gage/16 Gm Bottle INTRANASAL 09/04/23 23:33 DAILY PRN [...] her questions Documented By: Randolph Velasquez MD 09/06/22910 Signed By: <Electronically signed by Randolph Velasquez MD> 09/06/2215 [facility] Work Phone: 1(626) 844-390301-04-2023 Progress note Author Randolph Velasquez [facility] September 05, 2022 9:46am Note Date/Time September 05, 2022 9: 46am [facility] [address] [place] [address] Hospitalist Progress Note Signed Patient: Jose L Mauricio MR#: [id number] : 1940 Acct:[id number] Age/Sex: 81 / M Adm Date: 3 Loc: Room: [address] [place] [address] Type: ADM IN Attending Dr: Randolph Velasquez [...] patient is on oxygen. Morbidly obese HEENT: Beltrami conjunctiva and NL buccal mucosa Neck: Supple, [...] 81 mg 09/05/22 09:00 Aspirin 81 [address]Dr HOPKINS 09/05/23 08:59 DAILY SHARI Dextrose 0 gm 09/05/22 09:39 Dextrose 20 % In Water 10 Gm/50 Ml Syringe IV-PUSH 09/05/23 09:38 PRN PRN Hypoglycemia Enoxaparin Sodium 40 mg 09/05/22 10:00 Enoxaparin 40 Mg/0.4 Ml Syringe SUBCUT 09/05/23 09:59 DAILY@1000 [facility] Fluticasone Propionate 1 spray 09/04/22 23:34 Fluticasone Propionate Gage 120 Gage/16 Gm Bottle INTRANASAL 09/04/23 23:33 DAILY PRN Congestion Furosemide 40 mg 09/05/22 08:00 Furosemide 40 Mg/4 Ml Vial IV-PUSH 09/05/23 07:59 BID@0800,1600 [facility] Glucose 0 gm 09/05/22 09:37 Dextrose 40% Gel 15 Gm Tube PO 09/05/23 09:36 PRN PRN Hypoglycemia Guaifenesin 600 mg 09/05/22 21:00 Guaifenesin 600 Mg Tab.Er.12h PO 09/05/23 20:59 BID [facility] Ampicillin Sodium/Sulbactam Sodium 3 gm in 100 mls @ 200 mls/hr 09/05/22 02:30 09/05/22 03:58 Unasyn IV 200 mls/hr Q6H SHARI Administration Doxycycline Hyclate 100 mg in 100 mls @ 100 mls/hr 09/05/22 10:00 Doxy 100 IV Q12H [facility] Insulin Aspart 0 units 09/05/22 12:00 Insulin Aspart 300 Units/3 Ml Insuln.Pen SUBCUT 09/05/23 11:59 TID.WM.HS [facility] Protocol Insulin Glargine 15 units 09/05/22 09:45 Insulin Glargine 300 Units/3 Ml Insuln.Pen SUBCUT 09/05/23 09:44 DAILY [facility] Methylprednisolone Sodium Succinate 40 mg 09/05/22 14:00 Methylprednisolone Sod Succ/Pf 40 Mg/Ml (1ml) Vial IV-PUSH 09/05/23 13:59 Q8HR [facility] Nystatin 200,000 unit 09/04/22 23:40 09/05/22 00:34 Nystatin Susp 500,000 Unit/5 Ml Udc PO 09/04/23 23:39 200,000 unit QID SHARI Administration Sodium Chloride 0 ml 09/05/22 06:00 09/05/22 07:23 Sodium Chloride 0.9 % 10 Ml Syringe IV-PUSH 09/05/23 05:59 10 ml QSHIFT SHARI Administration Tamsulosin HCl 0.4 mg 09/05/22 21:00 Tamsulosin 0.4 Mg Cap.Er.24h PO 09/05/23 20:59 QPM [facility] A&P - Hospitalist Assessment/Plan (1) Acute respiratory [...] ? Blood cultures were obtained at the [facility] -Counseling about tobacco addiction and the need [...] findings and plan. Patient was transferred from [facility]. Initial working diagnosis: -Sepsis secondary to community-acquired pneumonia: Started IV antibiotics. Blood cultures were collected at [place]. Follow-up and de-escalate accordingly. -Acute hypoxic respiratory failure secondary to pneumonia: Requiring oxygen. Wean off as tolerated -Suspect new onset CHF given elevated BNP, chest x-ray with bilateral vascular congestion, leg edema on exam. Given Lasix. Check echocardiogram Javier Jerry MD Documented By: Randolph Velasquez MD 09/05/22 0942 Signed By: <Electronically signed by Randolph Velasquez MD> 09/05/22 0946 [facility] Work Phone: 1(440) 752-222301-04-2023 History and physical note Author Javier Murray [facility] September 05, 2022 1:03am Note Date/Time September 04, 2022 11 :14pm [facility] [address] [place] [address] Hospitalist H&P Signed Patient: Jose L Mauricio MR#: [id number] 2655 : 1940 Acct:[id number] Age/Sex: 81 / M Adm Date: 3 Loc: Room: [address] [place] [address] Type: ADM IN Attending Dr: Clyde Wright DO Copies to: DO Javier Delatorre MD Paula G Smith, APRN Shawn J Warner, ~ HPI DATE OF EXAMINATION: 09/04/22 CHIEF COMPLAINT: shortness of breath, cough, fever, chills HISTORY OF PRESENT ILLNESS: Mr. Mauricio is an 81-year-old male with a PMH of T2DM, HTN, BPH that was transferred from the [facility] for elevated troponin, shortness of breath, with [...] pain with palpation. Patient arrived to the [facility] emergency room with a pulse ox of [...] unless noted in the HPI or below. [facility] Social History Smoking Status: Former smoker Substance [...] ? Blood cultures were obtained at the [facility] Pulmonary edema?recheck BNP ? Lasix x 1 [...] findings and plan. Patient was transferred from [facility]. Initial working diagnosis: -Sepsis secondary to community-acquired pneumonia: Started IV antibiotics. Blood cultures were collected at [place]. Follow-up and de-escalate accordingly. -Acute hypoxic respiratory failure secondary to pneumonia: Requiring oxygen. Wean off as tolerated -Suspect new onset CHF given elevated BNP, chest x-ray with bilateral vascular congestion, leg edema on exam. Given Lasix. Check echocardiogram Javier Jerry MD Documented By: Lakesha Haskins APRN 09/04/22 1029 Signed By: <Electronically signed by DOROTHY Haskins> 09/04/22 2349 <Electronically signed by Javier Murray MD> 09/05/22 0103 [facility] Work Phone: [phone] 115-802504-01-2020 History of Present illness Narrative* Patient is [...] multiple comorbidities, [facility] respiratory failure due to pneumonia, could not exclude diastolic heart failure, and had mild elevation of troponin. * Diagnosis is elevated troponin not related to myocardial injury, but possibly related to supply demand mismatch. * Patient has chronic diastolic heart failure * Shortness of breath class III multifactorial * EKG today sinus rhythm 85 first-degree AV block NE interval 218 ms compared to EKG of 09/05/2022 heart rate has decreased. * 1 Uses cane as ambulatory aid, no falls -[facility] [employer] 250 DO Work Phone: Chief complaint Narrative - ReportedLARRY KWAKU is being seen for CAD referral S/P [facility] [employer] 250 DO Work Phone: Chief complaint Narrative - ReportedLARRY KWAKU is being seen for CAD referral S/P [facility] 250 DO Work Phone: Evaluation + Plan note No data available for this section [facility] Evaluation + Plan note Future Appointments Appointment Date:04/15/2024 01:00:00 PM Scheduled Provider:Carlos A PETERS MD Location:[facility] Appointment Type:URO Office Visit [facility] Evaluation note* Diagnosis Onset Date Resolution Status Acute respiratory failure with hypoxia acute Community acquired pneumonia acute Elevated troponin acute Hypertension acute Multifactorial functional impairment acute Type 2 diabetes mellitus acu te [facility] Work Phone: Evaluation noteNo [employer] Other Evaluation note* Diagnosis Onset Date Resolution Status Cervical spondylosis acute Chronic venous insufficiency of lower extremity acute Generally unsteady acute HTN (hypertension) acute Hypercholesterolemia acute Nicotine dependence acute YASMANI (obstructive sleep apnea) acute Pernicious anemia acute Type 2 diabetes mellitus with hyperglycemia acute [facility] Work Phone: Evaluation note* Diagnosis Onset Date Resolution Status Chronic heart failure with p reserved ejection fraction (HFpEF) acute Chronic venous insufficiency of lower extremity acute Generally unsteady acute HTN (hypertension) acute Hypercholesterolemia acute Nicotine dependence acute YASMANI (obstructive sleep apnea) acute Pernicious anemia acute Stage 3b chronic kidney disease acute Type 2 diabetes mellitus with hyperglycemia acute [facility] Work Phone: History general Narrative - Reported* Type Description [...] History TURP WITH CYSTOSCOPY 2014 Hospitalization History [facility] Hospitalization History SEE SURGICAL HX [facility] [employer] Other [employer] general Narrative - ReportedNort [employer] Other [employer] general Narrative - Reported* Type Description Date [...] COLONOSCOPY Surgical History TURP WITH CYSTOSCOPY 2014 Surgical History YASMANI (AHI 17, low O2 82) Hospitalization History [facility] Hospitalization History SEE SURGICAL HX [employer] Other History of Present illness Narrative* 82-year-old [...] was prompted by a hospital stay at [facility].Patient was admitted in transfer from [facility], with hypoxemia cough congestion, treated for pneumonia, [...] multiple comorbidities, with [place] of hypox[place] respiratory failure due to pneumonia, could not exclude diastolic heart failure, and had mild elevation of troponin. * Diagnosis is elevated troponin not related to myocardial injury, but possibly related to supply demand mismatch. * Patient has chronic diastolic heart failure * Shortness of breath class III multifactorial * EKG today sinus rhythm 85 first-degree AV block NE interval 218 ms compared to EKG of [...] arise, * Sincerely, * Cathleen Lopez MD [facility] * I told patient that he should bring his inhalers and use them prior to his perfusion study. [facility] 250 DO Work Phone: Hospital Discharge instructions No data available for this section [facility] Discharge instructions Additional Instructions I may not have addressed or treated all of your medical illnesses or the abnormal blood work or imaging studies during this hospitalization. Please ask your primary care provider to obtain [facility] records entirely to follow up on all [...] seen [facility]. Please collaborate with his primary care doctor [...] symptoms worsen or return. Discharging you from [facility] does not mean that your medical care ends here and now. You may still need additional monitoring, work up, investigation, and treatment plan to be handled from this point on by out patient providers including your primary care provider and specialists. For any medication question, please contact your retail pharmacist or your primary care provider. Thank you. [facility] Rehab to manage care: - DNRCCA without [...] Repeat [facility]inal[facility] in 2 [facility] Work [facility]: Progress note No data available for this section [facility] Chief Complaint and Reason for Visit Chief Complaint Sepsis second to pne [place] Reason for Visit Acute respiratory fa ilure with hypoxia Community acquired pneumonia Elevated troponin Hypertension Multifactorial functional impairment Type 2 diabetes mellitus Chief Complaint 3 month follow up B12 Reason for Visit Cervical spondylosis Chronic venous insufficiency of lower extremity Generally unsteady HTN (hypertension) Hypercholesterolemia Nicotine dependence YASMANI (obstructive sleep apnea) Pernicious anemia Type 2 diabetes mellitus with hyperglycemia Chief Complaint B12 Amb Documentation 3 month follow up Reason for Visit Chronic heart failur e with preserved ejection fraction (HFpEF) Chronic venous insufficiency of lower extremity Generally unsteady HTN (hypertension) Hypercholesterolemia Nicotine dependence YASMANI (obstructive sleep apnea) Pernicious anemia Stage 3b chronic kidney disease Type 2 diabetes mellitus with hyperglycemia Advance Directives Advance Directive Response Recorded Date/ Time Advance Directives No September 04, 2022 6:55pm Advance Directive Response Recorded Date/ Time Advance Directives No September 04, 2022 7:55pm Summary Purpose Family History Unknown Family Member [...] family history: Mother, Father, Sibling(V49.89, Z78.9) Status:Active Relationship Condition Age at Onset Recorded Date/T asif father Unknown Not Specified Unknown Chief Complaint JOSE L MAURICIO is being seen for a 6 month follow-up of. Additional Source Comments Patient Care team informatio n (unrecognized section and content) Team Status: Active Member Role Status Dates Erich Key DO Primary Care Provider Active Team Status: Inactive Member Role Status Dates Erich Key DO Primary Care Provider Active Start: December 19, 2023 End: December 19, 2023 Melissa Sneed APRN DIRECTOR OF CAMPUS RECREATION-C Attending Provider Act abe Start: December 19, 2023 End: December 19, 2023 Team Status: Active Member Role Status Dates Erich Key DO Primary Care Provider Active Start: January 13, 2024 GINNY Bee Attending Provider Active Start : January 13, 2024 Team Status: Active Member Role Status Dates Erich Key DO Primary Care Provide r, Attending Provider Active Start: January 16, 2024 Team Status: Inactive Member Role Status Dates Erich Key DO Primary Care Provide r, Attending Provider Active Start: February 05, 2024 End: February 05, 2024 Team Status: Inactive Member Role Status Dates Erich Key DO Primary Care Provider Active Javier Murray MD Admit Provider Active Randolph Velasquez MD Attending Provider Active Team Status: Active Member Role Status Dates Erich Key DO Primary Care Provider Active Team Status: Active Member Role Status Dates Provider Conversion Attending Provider Active St art: October 03, 2023 Team Status: Inactive Member Role Status Dates Erich Key DO Primary Care Provide r, Attending Provider Active Start: November 06, 2023 End: November 06, 2023 Team Status: Inactive Member Role Status Dates Erich Key DO Primary Care Provider Active Start: December 19, 2023 End: December 19, 2023 Melissa Sneed APRN DIRECTOR OF CAMPUS RECREATION-C Attending Provider Act abe Start: December 19, 2023 End: December 19, 2023 Team Status: Active Member Role Status Dates Erich Key DO Primary Care Provider Active Start: January 13, 2024 GINNY Bee Attending Provider Active Start : January 13, 2024 Team Status: Active Member Role Status Dates Erich Key DO Primary Care Provide r, Attending Provider Active Start: January 16, 2024 Team Status: Inactive Member Role Status Dates Erich Key DO Primary Care Provide r, Attending Provider Active Start: February 05, 2024 End: February 05, 2024 (unrecognized sect ion and content) No Status Records FoundNo Status Records FoundNo Status Records FoundNo Status Records FoundNo Status Records FoundNo Status Records FoundNo Status Records Found INFORMATION SOURCE (unrecogn ized section and content) DATE CREATED AUTHOR 10/06/2022 [facility] DATE CREATED AUTHOR AUTHOR'S ORGANIZ ATION 10/26/2022 [facility] DATE CREATED AUTHOR AUTHOR'S ORGANIZ ATION [facility]20[facility] DATE CREATED AUTHOR AUTHOR'S ORGANIZ ATION 03/12/2023 [facility] DATE CREATED AUTHOR AUTHOR'S ORGANIZ ATION 03/12/2023 [employer] DATE CREATED AUTHOR AUTHOR'S ORGANIZ ATION [facility]/2024 [facility] DATE CREATED AUTHOR AUTHOR'S ORGANIZ ATION 01/31/2024 [facility] EPIC REASON FOR VISIT (unrecogniz ed section and content) ClinicalTCMCT scanNo Informa tiondischargeNo Information1 month Follow up4 MONTH FOLLOW UPCT [id number] upB-12 ShotWeight/BP checkB-12 ShotRefillAWEAWENo InformationLab resultsB-12 ShotB-12 SHOT3 month Follow uplab resultsMedication ChangeUpdateNo Information Goals (unrecognized section and content) Goals may be documented in a n alternate section FOR RECORDS PERTAINING TO PATIENTS WHO ARE [...] BE BASED ON THE PRIMARY CLINICAL RECORDS. [facility]. provides no warranty or guarantee of the accuracy or completeness of information in this document.
[2024-04-07 11:32] LABS: Estimated Average Glucose 203 mg/dL; Glycohemoglobin A1C 8.7 % (4.5-6.2)
[2024-04-07 11:54] LABS: Alanine Aminotransferase 27 U/L (16-63); Albumin Globulin Ratio 1.2; Albumin Level 3.5 g/dL (3.4-5.0); Alkaline Phosphatase 120 U/L (46-116); Anion Gap 12.4; Aspartate Amino Transferase 16 U/L (15-37); BUN Creatinine Ratio 17.8; Bilirubin Total 0.4 mg/dL (0.2-1.0); Carbon Dioxide 27.1 mmol/L (21.0-32.0); Chloride 101 mmol/L (98-107); Estimated GFR (African America >60 (>=60); Estimated GFR (Non-African Ame 59 (>=60); Glucose 248 mg/dL (74-106); Potassium 4.5 mmol/L (3.5-5.1); Sodium 136 mmol/L (136-145); Total Protein 6.5 g/dL (6.4-8.2)
== END 2024-04-07 10:59 | disposition home or self-care (01) ==
LOC: LAB 10:59
PROVIDERS: PCP Internal Medicine; Visit Provider Internal Medicine
DX: I12.9 Hypertensive chronic kidney disease with stage 1 through stage 4 chronic kidney disease, or unspecified chronic kidney disease (principal); N18.32 Chronic kidney disease, stage 3b; E11.65 Type 2 diabetes mellitus with hyperglycemia; D69.6 Thrombocytopenia, unspecified
CPT/HCPCS: 36415; 80053; 83036; 85025

== ENCOUNTER 2024-04-14 12:51 | Outpatient (OUT) | payer MEDICARE, BC, SELFPAY | END 2024-04-14 12:52 | disposition home or self-care (01) | PROVIDERS: PCP Internal Medicine; Visit Provider Internal Medicine | DX: R00.0 Tachycardia, unspecified (principal) | CPT/HCPCS: 93242 ==

== ENCOUNTER 2024-07-09 12:56 | Outpatient (RCR) | payer MEDICARE, BC, SELFPAY | END 2024-07-28 08:25 | disposition home or self-care (01) | LOC: PT 12:56 | PROVIDERS: PCP Internal Medicine; Visit Provider Nurse Practitioner Family | DX: R26.89 Other abnormalities of gait and mobility (principal); R42 Dizziness and giddiness; R53.1 Weakness | CPT/HCPCS: 97110; 97112; 97161 ==

== ENCOUNTER 2024-07-16 10:23 | Outpatient (OUT) | payer MEDICARE, BC, SELFPAY ==
[2024-07-16 10:59] LABS: Microalbumin Urine Random <1.3 mg/dL (<=30.0)
[2024-07-16 11:10] LABS: Basophils Absolute Auto 0.1 10^3/uL (0.0-0.1); Basophils Percent Auto 0.9 % (0.2-2.0); Eosinophils Absolute Auto 0.1 10^3/uL (0.0-0.7); Eosinophils Percent Auto 0.9 % (0.9-7.0); Hematocrit 40.5 % (42.0-54.0); Hemoglobin 13.9 g/dL (14.0-18.0); Immature Granulocytes Abs Auto 0.04 10^3/uL (0.00-0.03); Immature Granulocytes Pct Auto 0.7 % (0.0-0.5); Lymphocytes Absolute Auto 1.3 10^3/uL (1.2-3.8); Mean Corpuscular HGB Conc 34.3 g/dL (29.9-35.2); Mean Corpuscular Hemoglobin 33.6 pg (25.9-34.0); Mean Corpuscular Volume 97.8 fL (80.0-94.0); Mean Platelet Volume 9.6 fL (9.5-13.5); Monocytes Absolute Auto 0.6 10^3/uL (0.3-0.8); Monocytes Percent Auto 10.3 % (1.7-12.0); Neutrophils Absolute Auto 3.5 10^3/uL (1.4-6.5); Neutrophils Percent Auto 64.2 % (43.0-75.0); Platelet Count 112 10^3/uL (150-450); Red Blood Count 4.14 10^6/uL (4.70-6.10); Red Cell Distribution Width 13.2 % (11.0-15.0); White Blood Count 5.4 10^3/uL (4.0-11.0)
[2024-07-16 12:12] LABS: Estimated Average Glucose 137 mg/dL; Glycohemoglobin A1C 6.4 % (4.5-6.2)
[2024-07-16 12:49] LABS: Alanine Aminotransferase 24 U/L (16-63); Albumin Globulin Ratio 1.1; Albumin Level 3.7 g/dL (3.4-5.0); Alkaline Phosphatase 116 U/L (46-116); Anion Gap 13.9; Aspartate Amino Transferase 15 U/L (15-37); BUN Creatinine Ratio 11.3; Bilirubin Total 0.5 mg/dL (0.2-1.0); Calcium 9.1 mg/dL (8.5-10.1); Carbon Dioxide 28.6 mmol/L (21.0-32.0); Chloride 100 mmol/L (98-107); Estimated GFR (African America 57 (>=60 mL/min/1.73m^2); Estimated GFR (Non-African Ame 47 (>=60 mL/min/1.73m^2); Globulin 3.4 g/dL; Glucose 129 mg/dL (74-106); Potassium 4.5 mmol/L (3.5-5.1); Sodium 138 mmol/L (136-145); Thyroid Stimulating Hormone 1.188 uIU/mL (0.358-3.740); Total Protein 7.1 g/dL (6.4-8.2)
== END 2024-07-16 10:24 | disposition home or self-care (01) ==
LOC: LAB 10:26
PROVIDERS: PCP Internal Medicine; Visit Provider Internal Medicine
DX: E11.65 Type 2 diabetes mellitus with hyperglycemia (principal); N18.32 Chronic kidney disease, stage 3b; I10 Essential (primary) hypertension; D69.6 Thrombocytopenia, unspecified; R53.83 Other fatigue
CPT/HCPCS: 36415; 80053; 82043; 83036; 84443; 85025

== ENCOUNTER 2024-10-06 09:09 | Outpatient (OUT) | payer MEDICARE, BC, SELFPAY ==
[2024-10-06 10:06] LABS: Basophils Percent Auto 0.7 % (0.2-2.0); Eosinophils Absolute Auto 0.1 10^3/uL (0.0-0.7); Eosinophils Percent Auto 1.8 % (0.9-7.0); Hematocrit 40.4 % (42.0-54.0); Hemoglobin 13.6 g/dL (14.0-18.0); Immature Granulocytes Abs Auto 0.02 10^3/uL (0.00-0.03); Immature Granulocytes Pct Auto 0.5 % (0.0-0.5); Lymphocytes Percent Auto 22.6 % (20.5-60.0); Mean Corpuscular HGB Conc 33.7 g/dL (29.9-35.2); Mean Corpuscular Hemoglobin 33.3 pg (25.9-34.0); Mean Platelet Volume 9.6 fL (9.5-13.5); Monocytes Absolute Auto 0.4 10^3/uL (0.3-0.8); Monocytes Percent Auto 9.8 % (1.7-12.0); Neutrophils Absolute Auto 2.8 10^3/uL (1.4-6.5); Neutrophils Percent Auto 64.6 % (43.0-75.0); Platelet Count 105 10^3/uL (150-450); Red Blood Count 4.08 10^6/uL (4.70-6.10); Red Cell Distribution Width 12.7 % (11.0-15.0); White Blood Count 4.4 10^3/uL (4.0-11.0)
[2024-10-06 10:13] LABS: Anion Gap 10.7; BUN Creatinine Ratio 8.5; Calcium 8.8 mg/dL (8.5-10.1); Carbon Dioxide 29.9 mmol/L (21.0-32.0); Chloride 104 mmol/L (98-107); Estimated GFR (African America 57 (>=60 mL/min/1.73m^2); Estimated GFR (Non-African Ame 47 (>=60 mL/min/1.73m^2); Glucose 147 mg/dL (74-106); Potassium 4.6 mmol/L (3.5-5.1); Sodium 140 mmol/L (136-145)
== END 2024-10-06 09:10 | disposition home or self-care (01) ==
LOC: LAB 09:11
PROVIDERS: PCP Internal Medicine; Visit Provider Internal Medicine
DX: D69.6 Thrombocytopenia, unspecified (principal); N18.31 Chronic kidney disease, stage 3a
CPT/HCPCS: 36415; 80048; 85025

== ENCOUNTER 2024-10-08 16:12 | Emergency (ER) | payer MEDICARE, BC, SELFPAY ==
[2024-10-08] VITALS (73 sets, daily range): BP systolic 47–116; BP diastolic 25–64; PULSE 66–119; TEMP 35.8; O2SAT 90–100; BMI 34.9
--- NOTE | 2024-10-08 16:05 | CT_ITS ---
The [address] [address] Patient Name: JOSE L AMES MRN: [id number] date: 1940 Sex: M Assigned Patient Location: ED.MAIN Current Patient Location: ED.MAIN Accession/Order Number: [id number] Exam Date: 10/08/2024 16:08 Report Date: 10/08/2024 16:33 At the request of: MARITZA MARIANO Procedure: CT stroke head/brain wo con CT stroke head/brain wo con, 10/08/2024 4:08 PM EST INDICATION: CVA COMPARISON: There is no appropriate prior study for comparison. TECHNIQUE: Axial CT images of the brain from skull base to vertex, including portions of the face and sinuses, were obtained without contrast . Multiplanar reformatted images were generated and reviewed as needed. Dose reduction techniques were achieved by using automated exposure control and/or adjustment of mA and/or kV according to patient size and/or use of iterative reconstruction technique. FINDINGS: The cerebral sulci as well as ventricular system are enlarged consistent with moderate ex vacuo cerebral volume loss. There is no intracranial mass, mass effect, midline shift, intra or extra-axial fluid collection or hemorrhage. Periventricular and centrum semiovale hypodensities are most likely consistent with microvascular ischemic changes. There is status post bilateral lens replacement. The visualized portions of orbits, mastoid air cells as well as paranasal sinuses are unremarkable. There is no suspicious osteolytic or osteoblastic lesion. CT/CT stroke head/brain wo con IMPRESSION: No acute intracranial process is noted. Electronically authenticated by: MORENITA AGUIRRE Date: 10/08/2024 16:33
--- NOTE | 2024-10-08 16:17 | ECG_ITS ---
[facility] Test Date: 2024-10-08 Pat Name: JOSE L AMES Department: Room: - Gender: Male Electrolytic De Scaler: : 1940 Requested By: [id number] Order Number: [id number] Reading MD: SHERIF ALEJANDRO Measurements Intervals [place] Rate: 119 P: 60 [place]: 182 QRS: -5 QRSD: 102 T: 65 QT: 316 QTc: 386 Interpretive Statements 1120 Sinus tachycardia 3623 Possible inferior myocardial infarction, probably old 9150 abnormal ECG No previous ECG available for comparison Electronically Signed On 10-08-2024 20:18:48 EST by SHERIF ALEJANDRO
--- NOTE | 2024-10-08 16:23 | ED_ITS ---
HPI - Neuro Symptoms/Deficit General Chief Complaint: Neuro Symptoms/Deficit Stated Complaint: POSS CVA Time Seen by Provider: 10/08/24 16:19 History of Present Illness HPI Narrative: 84 year old male presents to the ED via EMS for AMS, increased weakness. He was brought in for a possible CVA. LKW was 1600. Pt was on the commode at home when he fell. EMS noted slurred speech, facial droop, extremity weakness. Pt is alert and oriented. Pt exhibits generalized weakness. He has not felt well all day. He has not had anything to eat or drink today, per family. He denies pain. Denies injury with the fall. Denies pain to his head, neck, back, chest, abdomen, extremities. Pt denies fever, chills, cough, dizziness, vision changes. Denies difficulty swallowing. Denies N/V. Pt soiled with urine and stool upon arrival. Related Data Home Medications ?Medication ?Instructions ?Recorded ?Confirmed amlodipine 10 mg tablet 10 mg PO DAILY 10/08/24 10/08/24 furosemide 40 mg tablet 20 mg PO DAILY 10/08/24 10/08/24 insulin glargine 100 unit/mL (3 20 unit subcut DAILY 10/08/24 10/08/24 mL) subcutaneous pen (Lantus Solostar U-100 Insulin) lisinopril 20 mg tablet 20 mg PO DAILY 10/08/24 10/08/24 mirabegron 50 mg tablet,extended 50 mg PO Q24H 10/08/24 10/08/24 release 24 hr oxybutynin 3.9 mg/24 hr semiweekly 10/08/24 transdermal patch oxybutynin chloride 5 mg tablet 5 mg PO .QHS 10/08/24 10/08/24 potassium chloride 10 mEq 10 meq PO DAILY 10/08/24 10/08/24 tablet,extended release semaglutide 0.25 mg or 0.5 mg (2 2 mg subcut QWEEK 10/08/24 10/08/24 mg/3 mL) subcutaneous pen injector (Ozempic) tamsulosin 0.4 mg capsule 0.4 mg PO .QHS 10/08/24 10/08/24 tizanidine 2 mg tablet 2 mg PO .QHS 10/08/24 10/08/24 Allergies Allergy/AdvReac Type Severity Reaction Status Date / Time No Known Drug Allergies Allergy Verified 10/08/24 17:21 Review of Systems ROS Constitutional Reports: fatigue; Denies: fever or chills Ears, nose, mouth, and throat Denies: throat pain or neck pain Cardiovascular Denies: chest pain Respiratory Denies: shortness of breath or cough Gastrointestinal Denies: abdominal pain, nausea or vomiting Genitourinary Denies: painful urination, urinary frequency, urinary urgency or blood in urine Musculoskeletal Denies: back pain, neck pain, extremity pain or extremity swelling Integumentary/Breast Denies: rash Neurological Reports: weakness in extremities; Denies: headache, numbness in extremities or dizziness Exam Constitutional Vital Signs, click to edit/add: Last Vital Signs Temp 96.5 F L 10/08/24 16:23 Pulse 92 H 10/08/24 20:20 Resp 14 10/08/24 20:20 BP 101/46 L 10/08/24 20:15 Pulse Ox 97 10/08/24 20:20 O2 Del Method Nasal Cannula 10/08/24 18:58 O2 Flow Rate 2 10/08/24 18:58 Common normals: no apparent distress, oriented x3 and alert General appearance: cooperative HENIL Common normals: external ears normal; oral mucous membranes not moist (DRY) Head and scalp: no Flowers's sign and no raccoon eyes Nose: external nose not normal External ear: external ears normal Mouth: no drooling Eye Common normals: PERRL, EOMs intact bilaterally, conjunctivae normal and no scleral icterus Neck & C-Spine Common normals: supple Cervical spine: no cervical spine tenderness, no paracervical muscle tenderness and no paracervical muscle spasm Chest Chest: symmetrical chest wall rise Respiratory Common normals: normal respiratory effort and clear to auscultation bilaterally Effort & inspection: able to speak in complete sentences and symmetric chest movement Cardio Common normals: regular rhythm Rate: tachycardic GI Common normals: Normal to inspection, nondistended, normoactive bowel sounds present, soft to palpation and non-tender Back & Pelvis Thoracic spine/upper back: normal to inspection; no thoracic spinal tenderness, no paraspinal muscle tenderness and no paraspinal muscle spasm Lumbar spine/lower back: normal to inspection; no lumbar spinal tenderness, no paraspinal muscle tenderness and no paraspinal muscle spasm Pelvis: buttocks normal Neuro Common normals: oriented x3 and CN's II-XII intact bilaterally Sensorium/orientation: awake and alert Coordination/balance: [id number] test normal Other: NIH Stroke Scale/Score (NIHSS) from [email or web address] on 10/08/2024 All calculations should be rechecked by clinician prior to use RESULT SUMMARY: 9 points NIH Stroke Scale INPUTS: 1A: Level of consciousness ?> 0 = Alert; keenly responsive 1B: Ask month and age ?> 1 = 1 question right 1C: 'Blink eyes' & 'squeeze hands' ?> 0 = Performs both tasks 2: Horizontal extraocular movements ?> 0 = Normal 3: Visual alcala ?> 0 = No visual loss 4: Facial palsy ?> 1 = Minor paralysis (flat nasolabial fold, smile asymmetry) 5A: Left arm motor drift ?> 1 = Drift, but doesn't hit bed 5B: Right arm motor drift ?> 0 = No drift for 10 seconds 6A: Left leg motor drift ?> 3 = No effort against gravity 6B: Right leg motor drift ?> 1 = Drift, but doesn't hit bed 7: Limb Ataxia ?> 1 = Ataxia in 1 Limb 8: Sensation ?> 0 = Normal; no sensory loss 9: Language/aphasia ?> 0 = Normal; no aphasia 10: Dysarthria ?> 1 = Mild-moderate dysarthria: slurring but can be understood 11: Extinction/inattention ?> 0 = No abnormality Course Vital Signs Vital signs: Vital Signs Pulse Oximetry 92 L 10/08/24 16:16 Temperature 96.5 F L 10/08/24 16:23 Pulse Rate 92 H 10/08/24 20:20 Respiratory Rate 14 10/08/24 20:20 Blood Pressure 101/46 L 10/08/24 20:15 Pulse Oximetry 97 10/08/24 20:20 Oxygen Delivery Method Nasal Cannula 10/08/24 18:58 Oxygen Delivery Flow Rate 2 10/08/24 18:58 MDM - Neuro Symptoms/Deficit MDM Narrative Medical decision making narrative: A stroke alert was called by the ED attending upon pt arrival. NIH score was 9. CT scan of the head was negative for acute findings. A telestroke consult was completed. Dr. Carrillo did the telestroke consult with the patient. I did speak with Dr. Carrillo; she did not recommend TPA at this time; sx likely related to generalized weakness. BUN was 43, creatinine 3.09; 10/06/24 his BUN was 12, cre atinine 1.42. WBC count was 17.2 today; it was 4.4 on 10/06/24. Today his initial lactic acid was 5.3. A sepsis alert was called. Blood cultures were drawn and IV antibiotics were started. He was started on the sepsis IV fluid 30ml/kg bolus. The patient's blood pressure dropped. A Levophed drip was started. The patient's blood pressure improved. Family requested the patient be transferred to [facility] for admission. They were contacted and there were no beds available; the transfer was declined. Family was in agreement to then try [facility]. I spoke with Dr. Murray from [facility]. A complete and detailed handoff report was given. The patient was accepted for transfer. The patient and his family were updated. Chest x-ray: No acute cardiopulmonary process in the chest. CT abdomen: Mild fluid distention of small bowel loops without discrete transition zone. This may represent gastroenteritis. Early small bowel obstruction not completely excluded. No obstructing urinary tract stone. Medical Records Attestation: I reviewed the patient's medical records. Lab Data Attestation: I reviewed the patient's lab results. Labs: Lab Results 10/08/24 10/08/24 10/08/24 Range/Units 16:24 16:55 17:52 WBC 17.2 H (4.0-11.0) 10^3/uL RBC 4.33 L (4.70-6.10) 10^6/uL Hgb 14.9 (14.0-18.0) g/dL Hct 42.6 (42.0-54.0) % MCV 98.4 H (80.0-94.0) fL MCH 34.4 H (25.9-34.0) pg MCHC 35.0 (29.9-35.2) g/dL RDW 13.1 (11.0-15.0) % Plt Count 101 L (150-450) 10^3/uL MPV 10.2 (9.5-13.5) fL Neut % (Auto) 93.9 H (43.0-75.0) % Lymph % (Auto) 2.2 L (20.5-60.0) % [place] % (Auto) 3.0 (1.7-12.0) % Eos % (Auto) 0.2 L (0.9-7.0) % Baso % (Auto) 0.1 L (0.2-2.0) % Neut # (Auto) 16.1 H (1.4-6.5) 10^3/uL Lymph # (Auto) 0.4 L (1.2-3.8) 10^3/uL [place] # (Auto) 0.5 (0.3-0.8) 10^3/uL Eos # (Auto) 0.0 (0.0-0.7) 10^3/uL Baso # (Auto) 0.0 (0.0-0.1) 10^3/uL Abs Immat Gran (auto) 0.11 H (0.00-0.03) 10^3/uL Imm/Tot Granulo (auto) 0.6 H (0.0-0.5) % PT 11.4 (9.0-11.6) sec INR 1.08 Sodium 137 (136-145) mmol/L Potassium 4.4 (3.5-5.1) mmol/L Chloride 102 (98-107) mmol/L Carbon Dioxide 16.1 L (21.0-32.0) mmol/L Anion Gap 23.3 BUN 43.0 H (7.0-18.0) mg/dL Creatinine 3.09 H (0.70-1.30) mg/dL Est GFR ( Amer) 23 L (>=60 mL/min/1.73m^2) Est GFR (Non-Af Amer) 19 L (>=60 mL/min/1.73m^2) BUN/Creatinine Ratio 13.9 Glucose 309 H (74-106) mg/dL Lactate 5.3 H* (0.4-2.0) mmol/L Calcium 8.2 L (8.5-10.1) mg/dL Total Bilirubin 0.7 (0.2-1.0) mg/dL AST 17 (15-37) U/L ALT 20 (16-63) U/L Alkaline Phosphatase 84 (46-116) U/L Troponin I High Sens 10.7 (4.0-76.1) pg/mL Total Protein 6.6 (6.4-8.2) g/dL Albumin 3.5 (3.4-5.0) g/dL Globulin 3.1 g/dL Albumin/Globulin Ratio 1.1 Urine Color (YELLOW) Urine Clarity (CLEAR) Urine pH (5.0-9.0) Ur Specific [place] (1.005-1.025) Urine Protein (NEG/TRACE) mg/dL Urine Glucose (UA) (NEGATIVE) mg/dL Urine Ketones (NEGATIVE) mg/dL Urine Occult Blood (NEGATIVE) Urine Nitrite (NEGATIVE) Urine Bilirubin (NEGATIVE) Urine Urobilinogen (0.2-1.0) EU/dL Ur Leukocyte Esterase (NEGATIVE) Ethanol Quant <3 mg/dL Influenza Type A Ag Negative Influenza Type B Ag Negative SARS-CoV-2 Ag (CV2AG) Negative (NEGATIVE) 10/08/24 10/08/24 Range/Units 18:08 20:30 WBC (4.0-11.0) 10^3/uL RBC (4.70-6.10) 10^6/uL Hgb (14.0-18.0) g/dL Hct (42.0-54.0) % MCV (80.0-94.0) fL MCH (25.9-34.0) pg MCHC (29.9-35.2) g/dL RDW (11.0-15.0) % Plt Count (150-450) 10^3/uL MPV (9.5-13.5) fL Neut % (Auto) (43.0-75.0) % Lymph % (Auto) (20.5-60.0) % [place] % (Auto) (1.7-12.0) % Eos % (Auto) (0.9-7.0) % Baso % (Auto) (0.2-2.0) % Neut # (Auto) (1.4-6.5) 10^3/uL Lymph # (Auto) (1.2-3.8) 10^3/uL [place] # (Auto) (0.3-0.8) 10^3/uL Eos # (Auto) (0.0-0.7) 10^3/uL Baso # (Auto) (0.0-0.1) 10^3/uL Abs Immat Gran (auto) (0.00-0.03) 10^3/uL Imm/Tot Granulo (auto) (0.0-0.5) % PT (9.0-11.6) sec INR Sodium (136-145) mmol/L Potassium (3.5-5.1) mmol/L Chloride (98-107) mmol/L Carbon Dioxide (21.0-32.0) mmol/L Anion Gap BUN (7.0-18.0) mg/dL Creatinine (0.70-1.30) mg/dL Est GFR ( Amer) (>=60 mL/min/1.73m^2) Est GFR (Non-Af Amer) (>=60 mL/min/1.73m^2) BUN/Creatinine Ratio Glucose (74-106) mg/dL Lactate 0.7 (0.4-2.0) mmol/L Calcium (8.5-10.1) mg/dL Total Bilirubin (0.2-1.0) mg/dL AST (15-37) U/L ALT (16-63) U/L Alkaline Phosphatase (46-116) U/L Troponin I High Sens (4.0-76.1) pg/mL Total Protein (6.4-8.2) g/dL Albumin (3.4-5.0) g/dL Globulin g/dL Albumin/Globulin Ratio Urine Color Dk. yellow (YELLOW) Urine Clarity Sl cloudy (CLEAR) Urine pH 5.5 (5.0-9.0) Ur Specific [place] >=1.030 A (1.005-1.025) Urine Protein 30 A (NEG/TRACE) mg/dL Urine Glucose (UA) Negative (NEGATIVE) mg/dL Urine Ketones Trace A (NEGATIVE) mg/dL Urine Occult Blood Negative (NEGATIVE) Urine Nitrite Negative (NEGATIVE) Urine Bilirubin Small A (NEGATIVE) Urine Urobilinogen 0.2 (0.2-1.0) EU/dL Ur Leukocyte Esterase Negative (NEGATIVE) Ethanol Quant mg/dL Influenza Type A Ag Influenza Type B Ag SARS-CoV-2 Ag (CV2AG) (NEGATIVE) Imaging Data Chest x-ray: Attestation: I have reviewed the pertinent imaging results. Radiologist's impression: ITS Impressions Brain CT 10/08/24 16:05 IMPRESSION: No acute intracranial process is noted. Electronically authenticated by: MORENITA AGUIRRE Date: 10/08/2024 16:33 Abdomen/Pelvis CT 10/08/24 17:45 IMPRESSION: Mild fluid distention of small bowel loops without discrete transition zone. This may represent gastroenteritis. Early small bowel obstruction not completely excluded. No obstructing urinary tract stone. Electronically authenticated by: IRA WILKINSON Date: 10/08/2024 18:47 ECG Data Attestation: ?I have reviewed the pertinent ECG results. Interpretation: Measurements Intervals [place] Rate: 119 P: 60 MN: 182 QRS: -5 QRSD: 102 T: 65 QT: 316 QTc: 386 Interpretive Statements 1120 Sinus tachycardia 3623 Possible inferior myocardial infarction, probably old 9150 abnormal ECG No previous ECG available for comparison Critical Care Time Critical Care Time Critical Care Time: Yes Total Critical Care Time: 40 Attestation: Due to the high probability of sudden and clinically significant deterioration in the patient's condition he required the highest level of my preparedness to intervene urgently. I provided critical care time including documentation time, medication orders and management, reevaluation, vital sign assessment, ordering and reviewing of lab tests, and ordering and reviewing of x-ray studies. Discharge Plan Discharge Chief Complaint: Neuro Symptoms/Deficit Clinical Impression: Sepsis, ANGIE (acute kidney injury), Generalized weakness, Hypotension Mode of Transportation: EMS Prescriptions / Home Meds: No Action tizanidine 2 mg tablet 2 mg PO .QHS lisinopril 20 mg tablet 20 mg PO DAILY potassium chloride 10 mEq tablet extended release 10 meq PO DAILY amlodipine 10 mg tablet 10 mg PO DAILY mirabegron 50 mg tablet extended release 24 hr 50 mg PO Q24H tamsulosin 0.4 mg capsule 0.4 mg PO .QHS furosemide 40 mg tablet 20 mg PO DAILY oxybutynin 3.9 mg/24 hr patch semiweekly Ozempic 0.25 mg or 0.5 mg (2 mg/3 mL) pen injector 2 mg SUBCUT QWEEK oxybutynin chloride 5 mg tablet 5 mg PO .QHS insulin glargine [Lantus Solostar U-100 Insulin] 100 unit/mL (3 mL) insulin pen 20 unit SUBCUT DAILY Print Language: Maori Referrals: Erich Key DO [Primary Care Provider] - 1 week
[2024-10-08 16:35] LABS: Basophils Percent Auto 0.1 % (0.2-2.0); Eosinophils Percent Auto 0.2 % (0.9-7.0); Hematocrit 42.6 % (42.0-54.0); Hemoglobin 14.9 g/dL (14.0-18.0); Immature Granulocytes Abs Auto 0.11 10^3/uL (0.00-0.03); Immature Granulocytes Pct Auto 0.6 % (0.0-0.5); Lymphocytes Absolute Auto 0.4 10^3/uL (1.2-3.8); Lymphocytes Percent Auto 2.2 % (20.5-60.0); Mean Corpuscular Hemoglobin 34.4 pg (25.9-34.0); Mean Corpuscular Volume 98.4 fL (80.0-94.0); Mean Platelet Volume 10.2 fL (9.5-13.5); Monocytes Absolute Auto 0.5 10^3/uL (0.3-0.8); Neutrophils Absolute Auto 16.1 10^3/uL (1.4-6.5); Neutrophils Percent Auto 93.9 % (43.0-75.0); Platelet Count 101 10^3/uL (150-450); Red Blood Count 4.33 10^6/uL (4.70-6.10); Red Cell Distribution Width 13.1 % (11.0-15.0); White Blood Count 17.2 10^3/uL (4.0-11.0)
[2024-10-08 16:56] LABS: Alanine Aminotransferase 20 U/L (16-63); Albumin Globulin Ratio 1.1; Albumin Level 3.5 g/dL (3.4-5.0); Alkaline Phosphatase 84 U/L (46-116); Anion Gap 23.3; Aspartate Amino Transferase 17 U/L (15-37); BUN Creatinine Ratio 13.9; Bilirubin Total 0.7 mg/dL (0.2-1.0); Calcium 8.2 mg/dL (8.5-10.1); Carbon Dioxide 16.1 mmol/L (21.0-32.0); Chloride 102 mmol/L (98-107); Estimated GFR (African America 23 (>=60 mL/min/1.73m^2); Estimated GFR (Non-African Ame 19 (>=60 mL/min/1.73m^2); Ethanol <3 mg/dL; Globulin 3.1 g/dL; Glucose 309 mg/dL (74-106); Potassium 4.4 mmol/L (3.5-5.1); Sodium 137 mmol/L (136-145); Total Protein 6.6 g/dL (6.4-8.2); Troponin I High Sensitivity 10.7 pg/mL (4.0-76.1)
[2024-10-08 17:12] LABS: Lactate/Lactic Acid 5.3 mmol/L (0.4-2.0)
[2024-10-08 17:23] LABS: INR 1.08; Prothrombin Time 11.4 sec (9.0-11.6)
--- NOTE | 2024-10-08 17:45 | CT_ITS ---
[address] [address] Patient Name: JOSE L AMES MRN: [id number] date: 1940 Sex: M Assigned Patient Location: ED.MAIN Current Patient Location: Accession/Order Number: [id number] Exam Date: 10/08/2024 17:35 Report Date: 10/08/2024 18:47 At the request of: CHELSY CROUCH Procedure: CT abdomen pelvis wo con EXAM: CT abdomen pelvis wo con TECHNIQUE: Axial CT images were obtained of the abdomen and pelvis without intravenous contrast. Sagittal and coronal reformatted images were also obtained. Dose reduction techniques were achieved by using automated exposure control and/or adjustment of mA and/or kV according to patient size and/or use of iterative reconstruction technique. HISTORY: ANGIE, Leukocytosis COMPARISON: 01/09/2021 FINDINGS: Lower chest: The lower lungs are clear. Liver: Diffuse decreased attenuation of liver consistent with steatosis. Gallbladder: Multiple calcified stones of the gallbladder. No biliary dilatation. Pancreas: The pancreas is homogeneous without evidence for mass lesion or inflammation. Spleen: Numerous calcified granulomas throughout the spleen. Adrenal glands: Chronic thickening of the adrenal glands. Kidneys and bladder: Cortical scarring of the midpole right kidney. Unremarkable unenhanced left kidney. No hydronephrosis. No obstructing urinary tract stone. The ureters demonstrate normal caliber. The urinary bladder is unremarkable. GI Tract: Stomach is unremarkable. Fluid distention of small bowel loops without discrete transition point. Post surgical changes of the mid sigmoid colon. Reproductive: Unremarkable Lymph nodes: No retroperitoneal or abdominal lymphadenopathy. 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 Peritoneum: No free intraperitoneal air or fluid. No acute inflammation. Abdominal wall: Degenerative facet changes in the lower lumbar spine. CT/CT abdomen pelvis wo con IMPRESSION: Mild fluid distention of small bowel loops without discrete transition zone. This may represent gastroenteritis. Early small bowel obstruction not completely excluded. No obstructing urinary tract stone. Electronically authenticated by: IRA WILKINSON Date: 10/08/2024 18:47
--- NOTE | 2024-10-08 17:45 | XR_ITS ---
[facility] [place] [id number] Patient Name: JOSE L AMES MRN: [id number] date: 1940 Sex: M Assigned Patient Location: ER Current Patient Location: ED.MAIN Accession/Order Number: [id number] Exam Date: 10/08/2024 17:40 Report Date: 10/08/2024 19:31 At the request of: CHELSY CROUCH Procedure: XR chest 1V EXAMINATION:XR chest 1V INDICATION:Weakness COMPARISON:09/04/2022 TECHNIQUE:A single frontal view of the chest is submitted. FINDINGS: The cardiomediastinal silhouette is not enlarged. The pulmonary vascularity is within normal limits. There is a calcified granuloma in the left lower lobe. No acute airspace disease has developed in the lungs. There is no costophrenic angle blunting. XR/XR chest 1V IMPRESSION: No acute cardiopulmonary process in the chest. Electronically authenticated by: ROSANA MARIE Date: 10/08/2024 19:31
[2024-10-08] MEDS: PIPERACILLIN SODIUM/TAZOBACTAM 4.5 GM in 0.9 % SODIUM CHLORIDE 50 ML IV (17:58)
[2024-10-08 18:20] LABS: Bilirubin Urine SMALL (NEGATIVE); Blood Urine NEGATIVE (NEGATIVE); Clarity Urine SL CLOUDY (CLEAR); Color Urine DK. YELLOW (YELLOW); Glucose Urine UA NEGATIVE (NEGATIVE); Ketones Urine TRACE mg/dL (NEGATIVE); Leukocyte Esterase Urine NEGATIVE (NEGATIVE); Nitrite Urine NEGATIVE (NEGATIVE); Protein Urine 30 mg/dL (NEG/TRACE); Specific Gravity Urine >=1.030 (1.005-1.025); Urobilinogen Urine 0.2 EU/dL (0.2-1.0); pH Urine 5.5 (5.0-9.0)
[2024-10-08 18:22] LABS: Urine Microscopic Indicated NO
--- NOTE | 2024-10-08 18:30 | ECG_ITS ---
The [facility] Test Date: 2024-10-08 Pat Name: JOSE L AMES Department: Room: - Gender: Male [employer] Operator: : 1940 Requested By: SHERIF ALEJANDRO Order Number: [id number] Reading MD: SHERIF ALEJANDRO Measurements Intervals [place] Rate: 97 P: 68 WI: 228 QRS: -12 QRSD: 94 T: 51 QT: 346 QTc: 401 Interpretive Statements 1100 Sinus rhythm 1102 Sinus arrhythmia 2231 First degree AV block 3634 Inferior myocardial infarction, age undetermined 9150 abnormal ECG Electronically Signed On 10-09-2024 16:47:25 EST by SHERIF ALEJANDRO
[2024-10-08 18:32] LABS: Influenza Virus A Antigen Negative; Influenza Virus B Antigen Negative; Internal Control Within Normal Limits; SARS-CoV-2 Ag NEGATIVE (NEGATIVE)
[2024-10-08] MEDS: VANCOMYCIN HCL 1,750 MG in 0.9 % SODIUM CHLORIDE 500 ML 250 MG IV (18:44)
[2024-10-08] MEDS: NOREPINEPHRINE BITARTRATE/D5W 4 MG/250 ML PREMIX 30 MG IV (18:47)
[2024-10-08 21:02] LABS: Lactate/Lactic Acid 0.7 mmol/L (0.4-2.0)
[2024-10-08] MEDS: 0.9 % SODIUM CHLORIDE 1,000 ML 100 ML IV (22:13)
[2024-10-09] VITALS (7 sets, daily range): BP systolic 104–133; BP diastolic 57–68; PULSE 80–91; TEMP 36.6; O2SAT 98–99
--- NOTE | 2024-10-09 00:59 | PC.NURSE ---
Report and update to [facility] crew. Report called to [facility] RN at [phone]. Pt with last BP 130/55. HR 70s, afebrile. NSR no ectopy with perhaps short intervals of afib with controlled ventricular rate in the 70s-90s. Pt left with a much improved mental status, brighter affect, converses with staff with a friendly disposition. Levophed at 12 mcgs and NS at 100 ml/hr.
== END 2024-10-09 01:10 | disposition short-term general hospital (02) ==
PROVIDERS: Emergency Medicine; Nurse Practitioner Family; Emergency Provider Emergency Medicine; PCP Internal Medicine
DX: A41.9 Sepsis, unspecified organism (principal); N17.9 Acute kidney failure, unspecified; R53.1 Weakness; I95.9 Hypotension, unspecified
CPT/HCPCS: 36415; 51702; 70450; 71045; 74176; 80053; 80320; 81003; 83605; 84484; 85025; 85610; 87040; 87804; 87811; 93005; 96365; 96366; 96367; 96368; 99285; J2543; J3370

== ENCOUNTER 2024-12-17 11:30 | Outpatient (OUT) | payer MEDICARE, BC, SELFPAY ==
--- OUTSIDE RECORDS SUMMARY | 2024-12-17 11:41 | XMS_ITS | CCD ---
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 Name Role Phone ERICH ALEJANDRO Primary Care Physician DO Erich Alejandro Primary Care Provider [phone] MD Javier Murray Admit Provider MD Randolph Velasquez Attending Provider Erich Alejandro Unavailable AJVON, DR GORMAN Admitting Unavailable BALL, DR GORMAN Attending Unavailable BALL, DR GORMAN Primary Care Unavailable BALL, DR GORMAN Consulting Unavailable JAVON, DR GORMAN Admitting Unavailable BALL, DR GORMAN Attending Unavailable BALL, DR GORMAN Primary Care Unavailable BALL, DR GORMAN Consulting Unavailable BALL, DR GORMAN Admitting Unavailable BALL, DR GORMAN Attending Unavailable BALL, DR GORMAN Primary Care Unavailable BALL, DR GORMAN Consulting Unavailable JAVON, DR GORMAN Primary Care Unavailable HAY ., DR TRAN Admitting Unavailable HAY ., DR TRAN Attending Unavailable HAY ., DR TRAN Consulting Unavailable TROTTI, GIROLAMO Consulting Unavailable Javon, Erich E Unavailable Unavailable Unavailable Staci Burnette Unavailable [...] Unavailable Javon, Dr. Erich Reed Primary Care Dr. Erich Gallagher Primary Care MD CATHLEEN Jo Attending Unavailable MD CATHLEEN LOPEZ Referring Unavailable Dr. Erich Alejandro Primary Care Erich Gallagher MD Primary Care Provider Jailyn Sepulveda NP Unavailable Vince Cherry DO Unavailable JAILYN SEPULVEDA Attending Unavailable JAILYN SEPULVEDA Attending Unavailable JAILYN SEPULVEDA Attending Unavailable Erich Alejandro DO Primary Care Provider Javier Murray MD Admit Provider Mateusz Arellano MD Other Provider [phone] Harris DAUGHERTY, Angelo Jason Other Provider [place] Caraballo MD Attending Provider Harris DAUGHERTY, Angelo Jason Attending Provider INPATIENT, TELENEUROLOGY Consulting Unavail able Erich Alejandro DO Primary Care Provider Terri DAUGHERTY, Javier Claros Admit Provider Mateusz Arellano MD Other Provider [phone] Angelo Iglesias MD Other Provider [place] Caraballo MD Attending Provider Angelo Iglesias MD Attending Provider Angelo Iglesias Admitting Unavailabl e Angelo Iglesias Attending Unavailabl Erich Gavin Primary Care Unavailable Angelo Iglesias Admitting Unavailabl e Angelo Iglesias Attending Unavailabl e [place] Car[place]allo Referring Unavailab le Erich Alejandro Primary Care Unavailable Javier Murray M Admitting Unavailable Erich [facility] Unavailable Mateusz Arellano Consulting Unavailable [place] Caraballo Attending Unavailab le Angelo Iglesias Consulting [place] MD Referring Provider Carlos A BAEZ Attending Unavailable Sobeida Medina Attending Unavailable Carlos A BAEZ Attending Unavailable Carlos A BAEZ Attending Unavailable Carlos A BAEZ Attending Unavailable Allergies Allergy Classification Reported Allergen(s) Allergy Type Date of Onset Reaction(s) Facility (16 sources) Angiotensin Converting Enzyme (Linda) Inhibitors; Translations: [Linda Inhibitors] Allergy to substance 08-18-20 17 Cough [facility] (20 sources) Acetaminophen Drug Allergy 11-06-19 HYPER [facility] (1 source) Acetaminophen Drug Allergy [facility] (1 source) patient allergy list reviewed by nurse or physicia Propensity to adverse reactions 07-11-20 18 Comment:Done Seen Other (1 source) Acetaminophen; Translations: [Tylenol] Drug Allergy [facility] Repository Medications Current Medications Medication Drug Class(es) Dates Sig (Normalized) Sig (Original) acetaminophen 325 mg oral tablet (20 sources) Start: 09-10-2022 take 2 tablets by mouth every six hours as needed for pain acetaminophen 325 mg Tab 650 mg = 2 tab(s), Oral, q6hr, PRN pain, Refills(s) 0 Start Date: 09/10/22 Status: Ordered Start: 09-08-2022 End: 02-20-2024 take 1-3 tablets by mouth every six hours as needed for pain Acetaminophen 325 mg Tablet Discontinued 650 MG PO Every 6 hours as needed for Pain Scale 1 - 3 or fever 0 September 08, 2022 1:00am February 20, 2024 2:42pm Start: 09-08-2022 End: 02-20-2024 take 650 mg by mouth every six hours Acetaminophen Discontinued 650 MG PO Every 6 hours 0 September 08, 2022 1:00am February 20, 2024 2:42pm take 1-2 tablets by mouth every eight hours as needed Acetaminophen 325 MG Oral Tablet TAKE 1 TO 2 TABLETS EVERY 8 HOURS NEEDED. Quantity: 0 Refills: 0 Ordered: 12-Nov-2022 DO Active take 2 tablets by mo uth every eight hours as needed for pain Acetaminophen 325 MG 2 tablets Orally every 8 hours as needed for pain/fever Active albuterol 0.83 mg/ml inhalation solution (16 sources) beta2-Adrenergic Agonist Start: 09-10-2022 take 2.5 mg by inhalation every four hours albuterol 0.083% Inh Idalia 3 mL 2.5 mg, 3 mL, NEB, q4hr Shortness of breath or wheezing, Refill(s) 0 Start Date: 09/10/22 Status: Ordered Albuterol Sulfat e (2.5 MG/3ML) 0.083% 3 mL as needed Inhalation every 6 hrs Not-Taking ascorbic acid 500 mg oral tablet (17 sources) Vitamin C Start: 04-15-2024 ASCORBIC ACID PO 500 mg 04/15/2024 Active Start: 04-15-2024 ascorbic acid 500 mg Start Date: 04/15/24 Status: Ordered Start: 02-20-2024 take 1 tablet by mouth once da daren Ascorbic Acid (Vitamin C) 500 mg tablet,chewable Active 500 MG PO Daily February 20, 2024 12:00am aspirin 81 mg delayed release oral tablet (20 sources) Platelet Aggregation Inhibitor, Nonsteroidal Anti-inflammatory Drug Start: 09-10-2022 take 1 tablet by mouth once daily aspirin 81 mg Oral EC Tab 81 mg = 1 tab(s), Oral, Daily, Refills(s) 0 Start Date: 09/10/22 Status: Ordered Start: 02-19-2018 take 1 tablet by mouth once da daren Aspirin 81 mg Tablet Active 81 MG PO Daily September 04, 2022 1:00am Start: 02-19-2018 take 1 tablet by krunal th every twenty-four hours Aspirin 81 81 MG 1 tablet Orally Once a day Jan, Active Start: 02-19-2018 betamethasone 0.5 mg/ml / clotrimazole 10 mg/ml topical cream (9 sources) Azole Antifungal, Corticosteroid Start: 05-29-2024 Clotrimazole-Betamethasone 1-0.05 % cream Active 1 APPLIC TOPICAL Twice daily May 29, 2024 12:00am Blood-Glucose Meter (Freestyle Lite Meter) kit (12 sources) Start: 01-09-2024 Blood-Glucose Meter (Freesty le Lite Meter) kit Active 0 .Route January 08, 2024 11:00pm to check blood sugar daily Start: 01-09-2024 Blood-Glucose Meter (Freestyle Lite Meter) kit Active 0 .Route January 09, 2024 12:00am to check blood sugar daily Centrum Silver 50+Men - (16 sources) Centrum Silver 5 0+Men - as directed Orally Active cephalexin 500 mg oral capsule (3 sources) Cephalosporin Antibacterial Start: 2023 take 1 capsule by mouth every eight hours Cephalexin 500 MG 1 capsule Orally tid for 14 days Sep, Active Cholecalciferol (20 sources) Vitamin D Start: 04-15-2024 CHOLECALCIFEROL PO 10 mcg 04/15/2024 Active Start: 04-15-2024 cholecalcifero l 10 mcg Start Date: 04/15/24 Status: Ordered Start: 09-04-2022 take 1 tablet by krunal th once daily Cholecalciferol (Vitamin D3) 10 mcg (400 unit) Tablet Active 10 MCG PO Daily September 04, [...] as needed Orally Once a day Active fluticasone propionate 0.05 mg/actuat metered dose nasal spray (20 sources) Corticosteroid Start : 11-04 fluticasone (Flonase) 50 MCG/ACT nasal spray Daily 11/05/2023 Active Start: 11-05-2023 End: 02-20-2024 Fluticasone Propionate 50 mc g/actuation spray,suspension Discontinued 2 SPRAY INTRANASAL Daily November 05, 2023 1:00am February 20, 2024 2:45pm Start: 09-04-2022 End: 09-08-2022 Fluticasone Propionate (Flon ase) 50 mcg/actuation [place],Suspension Discontinued 1 SPRAY INTRANASAL Daily as needed for Congestion September 04, 2022 1:00am September 08, 2022 [...] 0 Refills: 0 Ordered: 12-Nov-2022 DO Active lisinopril 20 mg oral tablet (20 sources) Angiotensin Converting Enzyme Inhibitor Start: 07-20-2024 End: 11-18-2024 take 10 mg by mouth twice daily Lisinopril 20 mg tablet Active 10 MG PO Twice daily November 18, 2024 5:05pm Start: 11-11-2023 End: 07-20-2024 take 1 tablet by mouth once daily Lisinopril 20 mg tablet Discontinued 0 .ROUTE .COMPLEX November 11, 2023 1:23pm July 20, 2024 5:55pm TAKE 1 TABLET BY MOUTH EVERY DAY Start: 04-07-2023 End: 11-11-2023 take 1 tablet by mouth once daily Lisinopril 20 mg tablet Discontinued 20 MG PO Daily November 05, 2023 1:00am November 11, 2023 1:23pm Start: 09-19-2022 End: 10-19-2022 take 1 tablet by mouth once daily lisinopril 20 mg Tab 20 mg = 1 tab(s), Oral, Daily, X 30 day(s), # 30 tab(s), Refills(s) 0, Pharmacy: [facility]/pharmacy #[id number], 180, cm, 08/07/21 10:07:00 EST, Height/Length Dosing, 110.8, kg, 08/07/21 10:07:00 EST, Weight Dosing Start Date: 09/19/22 Stop Date: 10/19/22 Status: Ordered Start: 09-08-2022 End: 11-05-2023 take 1 tablet by mouth once daily Lisinopril 10 mg Tablet Discontinued 10 MG PO Daily 0 September 08, 2022 1:00am November 05, 2023 12:25pm Start: 12-23-2020 End: 09-08-2022 take 1 tablet by mouth once daily Lisinopril 20 mg Tablet Discontinued 20 MG PO Daily September 04, 2022 1:00am September 08, 2022 10:19am 24 hr mirabegron 50 mg extended release oral tablet (19 sources) beta3-Adrenergic Agonist Start: 07-02-2024 take 1 tablet by mouth once daily, then take 1 tablet by mouth every twenty-four hours mirabegron ER (Myrbetriq) 50 MG 24 hr tablet Take 50 mg by mouth Daily 07/02/2024 Active Start: 01-29-2024 End: 02-20-2024 take 1 tablet by mouth once daily Mirabegron 50 mg tablet extended release 24 hr Discontinued 50 MG PO Daily February 05, 2024 12:00am February 20, 2024 2:47pm Jk-Uae-Wacgw-K4-Hdqjbsi-Bzrv in (Centrum Silver Men) [phone] mcg tablet (13 sources) Start: 11-05-2023 take 1 tablet by mouth once daily Ux-Ijf-Fuykk-B2-Veklzyk-Ijeljq (Centrum Silver Men) [phone] mcg tablet Active 1 TAB PO Daily November 05, 2023 12:00am Start: 11-05-2023 take 1 tablet by krunal th once daily Vi-Ism-Gfpby-I7-Iauxqjr-Jbhnkz (Centrum Silver Men) [phone] mcg tablet Active 1 TAB PO Daily November 05, 2023 1:00am oxybutynin chloride 5 mg oral tablet (20 sources) Cholinergic Muscarinic Antagonist Start: 04-15-2024 take 1 tablet by mouth at bedtime oxybutynin 5 mg Tab 5 mg = 1 tab(s), Oral, Bedtime, Take 30 min prior to bedtime., # 30 tab(s), Refills(s) 11, Pharmacy: [facility]/pharmacy #[id number], 180, cm, 04/15/24 13:22:00 EDT, Height/Length Dosing, 108, kg, 04/15/24 13:22:00 EDT, Weight Dosing Start Date: 04/15/24 Status: Ordered Start: 09-04-2022 End: 09-08-2022 take 1 tablet by mouth at bedtime Oxybutynin Chloride 5 mg Tablet Discontinued 5 MG PO Bedtime September 04, 2022 1:00am September 08, 2022 10:19am Start: 08-07-2021 End: 02-20-2024 take 1 tablet by mouth once daily Oxybutynin Chloride 10 mg tablet extended release 24hr Discontinued 10 MG PO Daily September 04, 2022 1:00am February 20, 2024 2:48pm potassium chloride 10 meq extended release oral tablet (20 sources) Start: 07-02-2024 take 1 tablet by mouth once daily potassium chloride CR (Klor-Con) 10 MEQ ER tablet Take 10 mEq by mouth Daily 07/02/2024 Active Start: 03-26-2024 take 1 tablet by krunal th once daily Potassium Chloride 10 mEq tablet extended release Active 0 .ROUTE .COMPLEX March 26, 2024 11:38am TAKE 1 TABLET BY MOUTH EVERY DAY Start: 11-05-2023 End: 03-26-2024 take 1 tablet by mouth once daily Potassium Chloride 10 mEq tablet extended release Discontinued 10 MEQ PO Daily November 05, 2023 1:00am March 26, 2024 11:38am Start: 09-25-2022 take 1 tablet by krunal th every twenty-four hours Klor-Con 10 10 MEQ 1 Tablet Orally daily for 30 day(s) Sep, Active Start: 09-08-2022 End: 11-05-2023 take 15 mEq by mouth once daily Potassium Chloride Dis continued 15 MEQ PO Daily September 08, 2022 1:00am November 05, 2023 12:26pm predniSONE 20 mg oral tablet (15 sources) Start: 12-14-2024 take 1 tablet by mouth twice daily, then take 1 tablet by mouth once daily Prednisone 20 mg tablet Active 0 PO As Directed 15 December 14, 2024 12:00am 1 tablet PO bid w/ food x 5 days then 1 tablet qd w/ food x 5 days. Start: 09-08-2022 End: 11-05-2023 take 1 tablet by mouth twice daily, then take 1 tablet by mouth once daily, then take 0.5 tablet by mouth once daily Prednisone 10 mg tablet Discontinued 10 MG PO As Directed September 08, 2022 1:00am November 05, 2023 12:29pm Take 1 tablet twice a day for 5 days then 1 tablet daily for 5 days then half a tablet daily Bronwyn-Bid Probiotic - (12 sources) Bronwyn-Bid Probiot ic - as directed Orally Active Semaglutide (15 sources) Start: 10-15-2024 inject 0.25 mg by subcutaneous injection every week, then inject 0.5 mg by subcutaneous injection every week Semaglutide (Ozempic) 0.25 mg or 0.5 mg (2 mg/3 mL) pen injector Active 0 .ROUTE .COMPLEX October 15, 2024 8:00am INJECT 0.25 MG SUBCUTANEOUSLY WEEKLY FOR 4 WEEKS, THEN 0.5 MG WEEKLY THEREAFTER Start: 10-15-2024 inject 0.25 mg by chisholm bcutaneous injection every week, then inject 0.5 mg by subcutaneous injection every week Semaglutide (Ozempic) 0.25 mg or 0.5 mg (2 mg/3 mL) pen injector Active 0 .ROUTE .COMPLEX October 15, 2024 7:00am INJECT 0.25 MG SUBCUTANEOUSLY WEEKLY FOR 4 WEEKS, THEN 0.5 MG WEEKLY THEREAFTER Start: 04-09-2024 End: 10-15-2024 inject 0.25 mg by subcutaneous injection every week, then inject 0.5 mg by subcutaneous injection every week Semaglutide (Ozempic) 0.25 mg or 0.5 mg (2 mg/3 mL) pen injector Discontinued 0 SUBCUT every week April 09, 2024 12:00am October 15, 2024 8:00am 0.25mg SC for 4 weeks, then increase to 0.5mg weekly Start: 04-09-2024 End: 10-15-2024 inject 0.25 mg by subcutaneous injection every week, then inject 0.5 mg by subcutaneous injection every week Semaglutide (Ozempic) 0.25 mg or 0.5 mg (2 mg/3 mL) pen injector Discontinued 0 SUBCUT every week April 08, 2024 11:00pm October 15, 2024 7:00am 0.25mg SC for 4 weeks, then increase to 0.5mg weekly Start: 04-09-2024 inject 0.25 mg by chisholm bcutaneous injection every week, then inject 0.5 mg by subcutaneous injection every week Semaglutide (Ozempic) 0.25 mg or 0.5 mg (2 mg/3 mL) pen injector Active 0 SUBCUT every week 9 April 08, 2024 11:00pm 0.25mg SC for 4 weeks, then increase to 0.5mg weekly Start: 04-09-2024 inject 0.25 mg by chisholm bcutaneous injection every week, then inject 0.5 mg by subcutaneous injection every week Semaglutide (Ozempic) 0.25 mg or 0.5 mg (2 mg/3 mL) pen injector Active 0 SUBCUT every week 9 April 09, 2024 12:00am 0.25mg SC for 4 weeks, then increase to 0.5mg weekly Semaglutide,0.25 or 0.5MG/DOS, 2 MG/3ML solution pen-injector (5 sources) Start: 04-09-2024 Semaglutide,0.25 or 0.5MG/DOS, 2 MG/3ML solution pen-injector every week 04/09/2024 Active Symbicort 160/4.5 inhalation aerosol with adapter (5 sources) Start: 09-10-2022 take 2 puff(s) by inhalation twice daily Symbicort 160/4.5 inhalation aerosol with adapter 2 puff(s), Inhalation, BID, Refill(s) 0 Start Date: 09/10/22 Status: Ordered tamsulosin hydrochloride 0.4 mg oral capsule (20 sources) alpha-Adrene rgic David Start: 10-26-2023 End: 11-18-2024 take 1 capsule by mouth once daily in the evening Tamsulosin 0.4 mg capsule Active 0 .ROUTE .COMPLEX 90 November 18, 2024 5:04pm TAKE 1 CAPSULE BY MOUTH EVERY EVENING Start: 05-08-2021 End: 10-26-2023 take 1 capsule by mouth once daily Tamsulosin 0.4 mg capsule Discontinued 0.4 MG PO Daily September 04, [...] 1 capsule by inhalation once daily Tiotropium Randall (Spiriva With Handihaler) 18 mcg capsule, w/inhalation device Discontinued 1 CAP INHALATION Daily September 08, 2022 1:00am November 05, 2023 12:28pm puncture 1 cap using device; one dose = 2 inhalations tiZANidine 2 mg oral tablet (20 sources) Central alpha-2 Adrenergic Agonist Start: 12-13-2023 End: 06-02-2024 take 0.5-1 tablets by mouth once daily at bedtime Tizanidine 2 mg tablet Active 0 .ROUTE .COMPLEX June 02, 2024 7:14am TAKE 1/2 TO 1 TABLET BY MOUTH EVERY DAY AT BEDTIME Start: 07-04-2023 End: 12-13-2023 take 1 tablet by mouth once daily at bedtime Tizanidine 2 mg tablet Discontinued 2 MG PO Daily at bedtime November 05, 2023 1:00am December 13, 2023 1:56pm torsemide 10 mg oral tablet (20 sources) Loop Diuretic Start: 10-14-2024 take 1 tablet by mouth once daily Torsemide 10 mg Tablet Active 10 MG PO DAILY@0800 30 October 14, 2024 1:00am Start: 11-05-2023 End: 10-14-2024 take 2 tablets by mouth once daily Torsemide 10 mg tablet Discontinued 20 MG PO Daily November 05, 2023 12:28pm October 14, 2024 5:25pm Start: 11-05-2023 take 20 mg by mouth once daily Torsemide Active 20 MG PO Daily November 05, 2023 12:28pm Start: 06-17-2023 take 5 mg by mouth once daily torsemide (Demadex) 10 MG tablet Take 5 mg by mouth Daily 06/17/2023 Active Start: 09-08-2022 End: 11-05-2023 take 1 tablet by mouth once daily Torsemide 10 mg tablet Discontinued 10 MG PO Daily September 08, 2022 1:00am November 05, 2023 12:29pm Torsemide 10 MG 2 Orally daily Active Triamcinolone (1 source) Corticosteroid Start: 12-14-2024 Triamcinolone Acetonide 0.1 % ointment Active 1 APPLIC TOPICAL Twice daily 454 December 14, 2024 12:00am Vitamin D3 25 MCG (1000 UT) (20 sources) take 1 capsule by mouth once len ly Vitamin D3 25 MCG (1000 UT) 1 capsule Orally Once a day Active Completed/Discontinued Medications Medication Drug Class(es) Dates Sig (Normalized) Sig (Original) albuterol 0.833 mg/ml / ipratropium bromide 0.167 mg/ml inhalation solution (14 sources) Anticholinergic, beta2-Adrenergic Agonist Start: 09-08-2022 End: 11-05-2023 take 1 mL by inhalation three times daily as needed for wheezing Ipratropium-Albute rol 0.5 mg-3 mg(2.5 mg base)/3 mL Solution For Nebulization Discontinued 3 ML INHALATION Three times daily as needed for wheezing 0 September 08, 2022 1:00am November 05, 2023 12:29pm amLODIPine 10 mg oral tablet (20 sources) Dihydropyridine Calcium Channel David Start: 07-20-2024 take 5 mg by mouth twice daily Amlodipine 10 mg tablet Active 5 MG PO Twice daily July 20, 2024 5:52pm On Hold: Until follow-up with your primary care physician Start: 03-31-2024 End: 07-20-2024 take 1 tablet by mouth once daily Amlodipine 10 mg tablet Discontinued 0 .ROUTE .COMPLEX March 31, 2024 8:47am July 20, 2024 5:53pm TAKE 1 TABLET BY MOUTH EVERY DAY Start: 02-20-2024 End: 03-31-2024 take 5 mg by mouth once daily Amlodipine 10 mg tablet Discontinued 5 MG PO Daily February 20, 2024 2:43pm March 31, 2024 8:47am Start: 02-20-2024 End: 03-31-2024 take 5 mg by mouth once daily Amlodipine Discontinued 5 MG PO Daily 0 February 20, 2024 2:43pm March 31, 2024 8:47am Start: 09-08-2022 End: 02-20-2024 take 1 tablet by mouth once daily Amlodipine 10 mg Tablet Discontinued 10 MG PO Daily 0 September 08, 2022 1:00am February 20, 2024 2:55pm take 1 tablet by krunal th once daily Norvasc 5 MG Oral Tablet Take 1 tablet daily Quantity: 0 Refills: 0 Ordered: 11-Mar-2023 DO Active amoxicillin 875 mg / clavulanate 125 mg oral tablet (14 sources) Penicillin-class Antibacterial Start: 09-08-2022 End: 11-05-2023 take 1 tablet by mouth twice daily Amoxicillin-Pot Clavulanate 875-125 mg tablet Discontinued 1 TAB PO Twice daily 14 [...] 2 puffs Inhalation Twice a day Active Carboxymethylcellulose (20 sources) Start: 11-05-2023 End: 02-20-2024 Carboxymethylcellulose Sodiu m Discontinued 1 DROPS OPHTHALMIC As Directed November 05, 2023 1:00am February 20, 2024 2:44pm Start: 11-05-2023 Carboxymethylc ellulose Sodium Active 1 DROPS OPHTHALMIC As Directed November 05, 2023 1:00am Refresh Tears 0. 5 % as directed Ophthalmic Active take 1 drop(s) into the eye(s) four times daily Refresh Tears 0.5 % Ophthalmic Solution INSTILL 1 DROP INTO BOTH EYES 4 TIMES DAILY. Quantity: 0 Refills: 0 Ordered: 12-Nov-2022 DO Active Carboxymethylcellulose Sodiu m 0.5 % dropperette (8 sources) Start: 11-05-2023 End: 02-20-2024 Carboxymethylcellulose Sodiu m 0.5 % dropperette Discontinued 1 DROPS OPHTHALMIC As Directed November 05, 2023 1:00am February 20, 2024 2:44pm Start: 11-05-2023 End: 02-20-2024 Carboxymethylcellulose Sodiu m 0.5 % dropperette Discontinued 1 DROPS OPHTHALMIC As Directed November 05, 2023 12:00am February 20, 2024 1:44pm carvedilol 6.25 mg oral tablet (20 sources) alpha-Adrenergic David, beta-Adrenergic David Start: 11-05-2023 End: 02-20-2024 take 1 tablet by mouth twice daily Carvedilol 6.25 mg tablet Discontinued 6.25 MG PO Twice daily November 05, 2023 1:00am February 20, 2024 2:44pm Start: 12-17-2022 take 1 tablet by krunal th twice daily at mealtime Carvedilol 6.25 MG Oral Tablet TAKE 1 TABLET TWICE DAILY WITH MEALS. Quantity: 180 Refills: 1 Ordered: 17-Dec-2022 Cathleen Lopez MD Start : 17-Dec-2022 Active new start D/C Amlodipine celecoxib 100 mg oral capsule (14 sources) Nonsteroidal Anti-inflammatory Drug Start: 09-04-2022 End: 09-08-2022 take 1 capsule by mouth twice daily Celecoxib 100 mg Capsule Discontinued 100 MG PO Twice daily September 04, 2022 1:00am September 08, 2022 10:19am DermacinRx Therazole Rocky 1-0.05 & 20 % External Therapy Pack (5 sources) DermacinRx Therazole Rocky 1-0.05 & 20 % External Therapy Pack as directed Quantity: 0 Refills: 0 Ordered: 12-Nov-2022 DO Active doxycycline hyclate 100 mg oral tablet (14 sources) Tetracycline-class Drug Start: 09-08-2022 End: 11-05-2023 take 1 tablet by mouth every twelve hours Doxycycline Hyclate 100 mg Tablet Discontinued 100 MG PO Q12H 10 5 September 08, 2022 1:00am November 05, 2023 12:22pm empagliflozin 10 mg oral tablet (17 sources) Sodium-Glucose Cotransporter 2 Inhibitor Start: 02-05-2024 End: 04-07-2024 take 1 tablet by mouth once daily Empagliflozin (Jardiance) 10 mg tablet Discontinued 10 MG PO Daily 90 90 February 05, 2024 12:00am April 07, 2024 10:41am ferrous sulfate (11 sources) take 1 tablet by mouth once daily Ferrous Sulfate 325 (65 Fe) MG 1 tablet Orally Once a day Not-Taking take 1 tablet by krunal th every twenty-four hours Ferrous Sulfate 325 (65 Fe) MG 1 tablet Orally Once a day Not-Taking Fluticasone Propion-Salmeterol (20 sources) Corticosteroid, beta2-Adrenergic Agonist Start: 11-05-2023 End: 02-20-2024 take 1 puff(s) by inhalation twice daily Fluticasone Propion-Salmeterol (Advair Hfa) 115-21 mcg/actuation HFA aerosol inhaler Discontinued 2 PUFF INHALATION Twice daily November 05, 2023 12:00am February 20, 2024 1:45pm Start: 11-05-2023 End: 02-20-2024 take 1 puff(s) by inhalation twice daily Fluticasone Propion-Salmeterol (Advair Hfa) 115-21 mcg/actuation HFA aerosol inhaler Discontinued 2 PUFF INHALATION Twice daily November 05, 2023 1:00am February 20, 2024 2:45pm Start: 11-05-2023 take 1 puff(s) by in halation twice daily Fluticasone Propion-Salmeterol (Advair Hfa) 115-21 [...] DO Active glucose 0.4 mg/mg oral gel (14 sources) Start: 09-08-2022 End: 02-20-2024 Dextrose (Glutose-15) 40 % Gel Discontinued 0.6 GM PO PRN as needed for Hypoglycemia 0 September 08, 2022 1:00am February 20, 2024 2:44pm 12 hr guaiFENesin 600 mg extended release oral tablet (14 sources) Start: 09-08-2022 End: 11-05-2023 take 1 tablet by mouth twice daily as needed for cough, then take 1 tablet by mouth every twelve hours as needed for cough Guaifenesin (Mucinex) 600 mg Tablet Extended Release 12hr Discontinued 600 MG PO Twice daily as needed for cough 0 September 08, 2022 1:00am November 05, 2023 12:29pm hydroCHLOROthiazide 12.5 mg oral tablet (20 sources) Thiazide Diuretic Start: 09-04-2022 End: 09-08-2022 take 1 tablet by mouth once daily Hydrochlorothiazide 12.5 mg tablet Discontinued 12.5 MG PO Daily September 04, 2022 1:00am September 08, 2022 10:19am take 1 tablet by krunal th once daily in the morning hydroCHLOROthiazide (HYDRODiuril) 25 MG tablet Take 25 mg by mouth Daily 1 tablet in the morning Active Hydrochlorothiazide-12.5 mg 12.5 MG (11 sources) Start: 02-19-2018 take 1 capsule by mouth once daily in the morning Hydrochlorothiazide-12.5 mg 12.5 MG 1 capsule in the morning Orally Once a day Jan, Not-Taking Insulin Aspart U-100 (Novolog Flexpen U-100 Insulin) 100 unit/mL (3 mL) Insulin Pen (20 sources) Start: 09-08-2022 End: 02-20-2024 inject 1 dose by subcutaneous injection once at mealtime Insulin Aspart U-100 (Novolog Flexpen U-100 Insulin) 100 unit/mL (3 mL) Insulin Pen Discontinued 1 sliding scale dose SUBCUT 3X/Day with meals and bedtime 0 September 08, 2022 12:00am February 20, 2024 1:45pm Start: 09-08-2022 End: 11-05-2023 inject 5 [IU] by subcutaneous injection once before mealtime Insulin Aspart U-100 (Novolog Flexpen U-100 Insulin) 100 unit/mL (3 mL) Insulin Pen Discontinued 5 UNITS SUBCUT 3x/Day before meals 0 September 08, 2022 12:00am November 05, 2023 11:29am Start: 09-08-2022 End: 02-20-2024 inject 1 dose by subcutaneous injection once at mealtime Insulin Aspart U-100 (Novolog Flexpen U-100 Insulin) 100 unit/mL (3 mL) Insulin Pen Discontinued 1 sliding scale dose SUBCUT 3X/Day with meals and bedtime 0 September 08, 2022 1:00am February 20, 2024 2:45pm Start: 09-08-2022 inject 1 dose by sub [...] September 08, 2022 12:00am 3 ml insulin aspart, human 100 unt/ml pen injector (1 source) Insulin Analog Start: 09-10-2022 NovoLOG FlexPe n 100 units/mL injectable solution 5 unit(s), SubCutaneous, TIDAC, plus 150-199 3, 200-249 4, 250-299 7, 300-349 10, 350-399 12, 400-449 14, >450 20, Refills(s) 0 Start Date: 09/10/22 Status: Ordered 3 ml insulin glargine 100 unt/ml pen injector (20 sources) Insulin Analog Start: 11-05-2023 End: 11-18-2024 Insulin Glargine (Lantus Solostar U-100 Insulin) 100 unit/mL (3 mL) insulin pen Discontinued 20 UNIT SUBCUT Daily November 18, 2024 5:26pm November 18, 2024 5:28pm Start: 09-10-2022 Lantus Solosta r Pen 100 units/mL subcutaneous solution 20 unit(s), SubCutaneous, Daily, Refills(s) 0 Start Date: 09/10/22 Status: Ordered Start: 09-08-2022 End: 11-05-2023 Insulin Glargine (Lantus Idalia ostar U-100 Insulin) 100 unit/mL (3 mL) Insulin Pen Discontinued 15 UNITS SUBCUT Daily September 08, 2022 1:00am November 05, 2023 12:29pm Lantus SoloStar 100 UNIT/ML 20 units Subcutaneous daily Active ketoconazole 20 mg/ml topical cream (1 source) Azole Antifungal Start: 02-07-2023 Ketoconazole 2 % External Cream Quantity: 60 Refills: 0 Ordered: 07-Feb-2023 DO Start : 07-Feb-2023 Complete Lactobacillus Combination No.4 (Probiotic) 3 billion cell capsule (14 sources) Start: 09-08-2022 End: 02-20-2024 take 3 capsules by mouth once daily Lactobacillus Combination No.4 (Probiotic) 3 billion cell capsule Discontinued 3000 MMU CELLS PO Daily September 08, 2022 12:00am February 20, 2024 1:45pm administer with a meal Start: 09-08-2022 End: 02-20-2024 take 3 capsules by mouth once daily Lactobacillus Combination No.4 (Probiotic) 3 billion cell capsule Discontinued 3000 MMU CELLS PO Daily September 08, 2022 1:00am February 20, 2024 2:45pm administer with a meal Start: 09-08-2022 take [...] 08, 2022 12:00am administer with a meal meloxicam 15 mg oral tablet (11 sources) Nonsteroidal Anti-inflammatory Drug take 1 tablet by mouth every twenty-four hours Meloxicam 15 MG 1 tablet Orally Once a day Not-Taking metFORMIN hydrochloride 1000 mg oral tablet (20 sources) Biguanide Start: 2020 End: 2023 take 1 tablet by mouth twice daily Metformin 1,000 mg tablet Discontinued 1000 MG PO Twice daily September 04, 2022 1:00am February 05, 2024 11:25am take 1 tablet by krunal every twelve hours metFORMIN HCl - 1000 MG Oral Tablet TAKE 1 TABLET EVERY 12 HOURS Quantity: 180 Refills: 0 Ordered: 12-Nov-2022 DO Active mupirocin 0.02 mg/mg topical ointment (20 sources) RNA Synthetase Inhibitor Antibacterial Start: 11-05-2023 End: 02-20-2024 Mupirocin 2 % ointment Discontinued 1 APPLIC TOPICAL Twice daily November 05, 2023 1:00am February 20, 2024 2:47pm Mupirocin 2 % 1 application Externally Twice a day for 30 days Active Mupirocin 2 % Ex ternal Ointment APPLY SPARINGLY TO AFFECTED AREA(S) TWICE DAILY Quantity: 0 Refills: 0 Ordered: 12-Nov-2022 DO Active Potassium Chloride 15 mEq tablet,ER particles/crystals (8 sources) Start: 09-08-2022 End: 11-05-2023 take 1 tablet by mouth once daily Potassium Chloride 15 mEq tablet,ER particles/crystals Discontinued 15 MEQ PO Daily September 08, 2022 1:00am November 05, 2023 12:26pm Start: 09-08-2022 End: 11-05-2023 take 1 tablet by mouth once daily Potassium Chloride 15 mEq tablet,ER particles/crystals Discontinued 15 MEQ PO Daily September 08, 2022 12:00am November 05, 2023 11:26am Problems Active Problems Problem Classification Problem Date Documented Da te Episodic/Chronic Abdominal pain (20 sources) Abdominal pain; Translations: [Unspecified abdominal pain] Resolved: 0 Episodic Acute and unspecified renal failure (14 sources) Acute kidney failure, unspecified; Translations: [Acute renal failure syndrome] Onset: 3 10-09-2024 Episodic Acute cerebrovascular disease (1 source) Acute cerebrovascular disease Onset: 5 Acute posthemorrhagic anemia (20 sources) Acute posthemorrhagic anemia; Translations: [Acute posthemorrhagic anemia] Episodic Administrative/social admission (16 sources) Counseling procedure with explicit context; Translations: [Tobacco abuse counseling] 09-08-2022 Episodic Comment on above: Problem List clean-u p per request of Phys. EHR Cmte Aortic; peripheral; and visceral artery aneurysms (20 sources) Aneurysm of left common iliac artery; Translations: [Aneurysm of iliac artery] Chronic Chronic kidney disease (20 sources) Chronic kidney disease stage 3A ; Translations: [Chronic kidney disease, Stage III (moderate)] 11-05-2023 Chronic Chronic kidney disease (4 sources) Chronic kidney disease; Translations: [Chronic kidney disease, stage 3a] Onset: 5 Chronic obstructive pulmonary disease and bronchiectasis (20 sources) Chronic obstructive lung disease; Translations: [Chronic obstructive pulmonary disease, unspecified] Onset: 3 Chronic Comment on above: Problem List clean-u p per request of Phys. EHR Cmte Coagulation and hemorrhagic disorders (15 sources) Thrombocytopenic disorder; Translations: [Thrombocytopenia, unspecified] 04-07-2024 Chronic Complications of surgical procedures or medical care (1 source) Infection following a procedure, other surgical site, initial encounter Episodic Conditions associated with dizziness or vertigo (18 sources) Benign paroxysmal positional vertigo; Translations: [Benign paroxysmal vertigo, bilateral] Onset: 4 12-31-2023 Episodic Congestive heart failure; nonhypertensive (20 sources) Diastolic heart failure; Translations: [Unspecified diastolic (congestive) heart failure] Onset: 3 09-08-2022 Chronic Comment on above: Problem List clean-u p per request of Phys. EHR Cmte Echo: LVEF 65%, LVH, normal RV size/function, no valve defect - 09/2022 Deficiency and other anemia (5 sources) Anemia due to blood loss 09-10-2022 Chronic Deficiency and other anemia (20 sources) Anemia due to chronic blood loss; Translations: [Iron deficiency anemia secondary to blood loss (chronic)] Chronic Deficiency and other anemia (6 sources) Pancytopenia; Translations: [Other pancytopenia] 10-11-2024 Chronic Deficiency and other anemia (16 sources) Other pancytopenia; Translations: [Other pancytopenia] Onset: 5 10-14-2024 Chronic Deficiency and other anemia (20 sources) Pernicious anemia; Translations: [Vitamin B12 deficiency anemia due to intrinsic factor deficiency] 11-06-2023 Episodic Deficiency and other anemia (20 sources) Vitamin B12 deficiency anemia due to intrinsic factor deficiency; Translations: [Pernicious anemia] Onset: Episodic Deficiency and other anemia (12 sources) Anemia; Translations: [Anemia, unspecified] 01-05-2024 Episodic Diabetes mellitus with complications (20 sources) Type 2 diabetes mellitus; Translations: [Type 2 diabetes mellitus with hyperglycemia] Onset: 3 Chronic Diabetes mellitus without complication (20 sources) Type 2 diabetes mellitus without complication; Translations: [Type 2 diabetes mellitus without complications] Onset: 8 Chronic Comment on above: Problem List clean-u p per request of Phys. EHR Cmte Disorders of lipid metabolism (20 sources) Mixed hyperlipidemia; Translations: [Mixed hyperlipidemia] Onset: 8 12-23-2020 Chronic Diverticulosis and diverticulitis (20 sources) Diverticulosis of colon; Translations: [Diverticulosis of large intestine without perforation or abscess without bleeding] Onset: 8 12-23-2020 Chronic Essential hypertension (20 sources) Essential hypertension; Translations: [Essential (primary) hypertension] Onset: 2 Chronic Comment on above: Problem List clean-u p per request of Phys. EHR Cmte Fever of unknown origin (3 sources) Fever, unspecified; Translations: [FEVER UNSPECIFIED] Onset: 3 Episodic Fracture of upper limb (20 sources) Closed fracture of surgical neck of humerus; Translations: [Closed fracture of humerus] Onset: 1 09-10-2022 Episodic Genitourinary symptoms and ill-defined conditions (11 sources) Urge incontinence; Translations: [Urge incontinence of urine] Onset: 3 Chronic Genitourinary symptoms and ill-defined conditions (20 sources) Increased frequency of urination; Translations: [Micturition frequency and polyuria] Onset: 4 Resolved: 0 12-27-2020 Episodic Comment on above: Problem List clean-u p per request of Phys. EHR Cmte Headache; including migraine (6 sources) Headache; Translations: [Headache, unspecified] Episodic Hyperplasia of prostate (20 sources) Benign prostatic hypertrophy with outflow obstruction; Translations: [Lower urinary tract symptoms due to benign prostatic hypertrophy] Onset: 8 12-23-2020 Chronic Hypertension with complications and secondary hypertension (2 sources) Hypertensive heart disease with heart failure; Translations: [Hypertensive heart and chronic kidney disease] Onset: 3 Chronic Immunizations and screening for infectious disease (6 sources) Vaccination given; Translations: [Encounter for immunization] Episodic Inflammatory conditions of male genital organs (1 source) Acute prostatitis Episodic Malaise and fatigue (20 sources) Asthenia; Translations: [Other malaise] Onset: 9 09-07-2022 Episodic Comment on above: Problem List clean-u p per request of Phys. EHR Cmte Miscellaneous mental health disorders (20 sources) Occipital headache; Translations: [Occipital headache] Chronic Noninfectious gastroenteritis (13 sources) Gastroenteritis; Translations: [Noninfective gastroenteritis and colitis, unspecified] Onset: 5 10-09-2024 Episodic Nutritional deficiencies (20 sources) Vitamin D deficiency; Translations: [Vitamin D deficiency, unspecified] Onset: 2 Chronic Nutritional deficiencies (3 sources) Deficiency of other specified B group vitamins; Translations: [Other B-complex deficiencies] 05-26-2024 Episodic Other aftercare (20 sources) Long-term current use of insulin; Translations: [long-term (current) use of insulin] Episodic Other aftercare (20 sources) H/O: high risk medication; Translations: [Other long line teamster (current) drug therapy] Episodic Other aftercare (1 source) Other chcf (current) drug therapy; Translations: [OTH SHELTER CURRENT DRUG THERAPY] Onset: 3 Episodic Other aftercare (1 source) long-term (current) use of aspirin; Translations: [HEAD STILL OPERATOR CURRENT USE OF ASPIRIN] Onset: 3 Episodic Other aftercare (1 source) long term acute care registered nurse (current) use of oral hypoglycemic drugs; Translations: [SHELTER USE ORAL HYPOGLYCEMIC DX] Onset: 3 Episodic Other aftercare (5 sources) Post-discharge follow-up; Translations: [Other follow-up examination] Episodic Other aftercare (3 sources) long-term (current) use of insulin Episodic Other aftercare (6 sources) Long-term current use of drug therapy; Translations: [Other long line teamster (current) drug therapy] Episodic Other connective tissue disease (20 sources) Other symptoms and signs involving the nervous system; Translations: [Suspected sleep apnea] Episodic Other connective tissue disease (1 source) Achilles tendinitis, right leg Episodic Other diseases of bladder and urethra (2 sources) Detrusor overactivity; Translations: [Overactive bladder] Onset: 4 Chronic Other diseases of bladder and urethra (2 sources) Overactive bladder 01-29-2024 Chronic Other diseases of veins and lymphatics (20 sources) Peripheral venous insufficiency; Translations: [Venous insufficiency (chronic) (peripheral)] Episodic Other diseases of veins and lymphatics (18 sources) Venous insufficiency (chronic) (peripheral); Translations: [Venous (peripheral) insufficiency, unspecified] Episodic Other diseases of veins and lymphatics (13 sources) Venous insufficiency of leg; Translations: [Venous insufficiency (chronic) (peripheral)] 11-03-2023 Episodic Other ear and sense organ disorders (20 sources) Impacted cerumen; Translations: [Impacted cerumen, right ear] Onset: 9 Resolved: 0 Episodic Other gastrointestinal disorders (20 sources) Flatulence, eructation and gas pain; Translations: [Abdominal distension (gaseous)] Episodic Other gastrointestinal disorders (6 sources) Diarrhea; Translations: [Diarrhea, unspecified] 10-09-2024 Episodic Other gastrointestinal disorders (7 sources) Diarrhea, unspecified; Translations: [Diarrhea] Onset: 5 10-14-2024 Episodic Other hematologic conditions (19 sources) Raised cardiac enzyme or marker; Translations: [Other specified abnormalities of plasma proteins] 09-04-2022 Episodic Comment on above: Problem List clean-u p per request of Phys. EHR Cmte Other hematologic conditions (5 sources) Other specified abnormalities of plasma proteins; Translations: [Other abnormal blood chemistry] Onset: 3 09-08-2022 Episodic Other injuries and conditions due to external causes (20 sources) 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, left arm, subsequent encounter; Translations: [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, left arm, subsequent encounter] Episodic Other injuries and conditions due to external causes (6 sources) History of fall; Translations: [History of falling] Episodic Other lower respiratory disease (14 sources) Computed tomography result abnormal; Translations: [Other nonspecific abnormal finding of lung field] 09-08-2022 Episodic Comment on above: Problem List clean-u p per request of Phys. EHR Cmte Other lower respiratory disease (20 sources) Dyspnea; Translations: [Shortness of breath] Episodic Other lower respiratory disease (1 source) Hypoxemia; Translations: [HYPOXEMIA] Onset: 3 Episodic Other lower respiratory disease (2 sources) Shortness of breath; Translations: [SHORTNESS OF BREATH] Onset: 3 Episodic Other lower respiratory disease (4 sources) Dyspnea on exertion; Translations: [Shortness of breath] Episodic Other lower respiratory disease (1 source) Other nonspecific abnormal finding of lung field Episodic Other nervous system disorders (6 sources) Polyneuropathy; Translations: [Polyneuropathy, unspecified] Onset: 4 12-31-2023 Chronic Other nervous system disorders (6 sources) Left radial neuropathy; Translations: [Lesion of radial nerve, left upper limb] Onset: 4 12-31-2023 Chronic Other nervous system disorders (20 sources) Unsteadiness on feet; Translations: [Unsteady] Episodic Other nervous system disorders (6 sources) Abnormal gait; Translations: [Unsteadiness on feet] Episodic Other nervous system disorders (18 sources) General unsteadiness; Translations: [Unsteadiness on feet] 11-06-2023 Episodic Other nervous system disorders (12 sources) Impairment of balance; Translations: [Other abnormalities of gait and mobility] Onset: 4 12-31-2023 Episodic Other non-epithelial cancer of skin (20 sources) 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; Translations: [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, including shoulder] Onset: 2 Episodic Other nutritional; endocrine; and metabolic disorders (11 sources) Simple obesity ; Translations: [Other obesity due to excess calories] Resolved: 0 05-01-2021 Chronic Other nutritional; endocrine; and metabolic disorders (20 sources) Obese class I; Translations: [Body mass index (BMI) 34.0-34.9, adult] Onset: 8 Chronic Other nutritional; endocrine; and metabolic disorders (20 sources) Obesity; Translations: [Obesity, unspecified] Chronic Pneumonia (except that caused by tuberculosis or sexually transmitted disease) (20 sources) Pneumonia; Translations: [Pneumonia, unspecified organism] Onset: 3 Episodic Comment on above: Problem List clean-u p per request of Phys. EHR Cmte Residual codes; unclassified (13 sources) Obstructive sleep apnea syndrome; Translations: [Obstructive sleep apnea (adult) (pediatric)] 11-03-2023 Chronic Residual codes; unclassified (20 sources) Obstructive sleep apnea (adult) (pediatric); Translations: [Obstructive sleep apnea (adult)(pediatric)] Onset: 5 11-06-2023 Chronic Residual codes; unclassified (8 sources) Daytime somnolence; Translations: [Other hypersomnia] Onset: 4 12-31-2023 Chronic Residual codes; unclassified (1 source) Disorientated; Translations: [Disorientation, unspecified] Onset: 3 Episodic Residual codes; unclassified (1 source) Edema; Translations: [Edema, unspecified] Onset: 3 Episodic Residual codes; unclassified (5 sources) Delirium 09-10-2022 Episodic Residual codes; unclassified (5 sources) Dependent edema 09-10-2022 Episodic Residual codes; unclassified (14 sources) Tobacco user; Translations: [Tobacco use] 09-08-2022 Episodic Comment on above: Problem List clean-u p per request of Phys. EHR Cmte Residual codes; unclassified (2 sources) Edema of lower extremity; Translations: [Edema] Episodic Residual codes; unclassified (1 source) Pain, unspecified; Translations: [Pain, unspecified] Onset: 5 Episodic Respiratory failure; insufficiency; arrest (adult) (15 sources) Acute respiratory failure; Translations: [Acute respiratory failure with hypoxia] 09-04-2022 Episodic Comment on above: Problem List clean-u p per request of Phys. EHR Cmte Septicemia (except in labor) (14 sources) Sepsis, unspecified organism; Translations: [Sepsis] Onset: 3 10-09-2024 Episodic Shock (13 sources) Hypovolemic shock; Translations: [Hypovolemic shock] Onset: 5 10-09-2024 Episodic Skin and subcutaneous tissue infections (20 sources) Carbuncle of buttock; Translations: [Carbuncle of buttock] Episodic Spondylosis; intervertebral disc disorders; other back problems (20 sources) Lumbar spondylosis; Translations: [Spondylosis without myelopathy or radiculopathy, lumbar region] Onset: 8 12-23-2020 Chronic Substance-related disorders (20 sources) Nicotine dependence; Translations: [Nicotine dependence, cigarettes, uncomplicated] Onset: 8 Chronic Syncope (13 sources) Syncope; Translations: [Syncope and collapse] Onset: 5 10-09-2024 Episodic Unclassified (5 sources) Asymptomatic microscopic hematuria 12-27-2020 Unclassified (5 sources) 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 05-08-2021 Unclassified (1 source) CONTACT W/AND (SUSP) EXPOS COVID-19; Translations: [CONTACT W/AND (SUSP) EXPOS COVID-19] Onset: 3 Past or Other Problems Problem Classification Problem Date Documented Da te Episodic/Chronic Deficiency and other anemia (4 sources) Iron deficiency anemia, unspecified; Translations: [IRON DEFICIENCY ANEMIA UNSPECIFIED] Onset: 2 Episodic Mycoses (6 sources) Candidiasis of skin and nails; Translations: [Candidiasis of skin and nail] Resolved: 0 Episodic Other acquired deformities (6 sources) Spondylolysis of cervical spine; Translations: [Spondylolysis, cervical region] Onset: 4 12-31-2023 Episodic Other connective tissue disease (6 sources) Bilateral weakness of upper limbs; Translations: [Other symptoms and signs involving the musculoskeletal system] Onset: 4 12-31-2023 Episodic Other ear and sense organ disorders (6 sources) Cellulitis of right external ear; Translations: [Cellulitis of right external ear] Resolved: 0 Episodic Other gastrointestinal disorders (6 sources) H/O: gastrointestinal disease; Translations: [Personal history of other diseases of the digestive system] Resolved: 0 Episodic Other gastrointestinal disorders (6 sources) Altered bowel function; Translations: [Change in bowel habit] Resolved: 0 Episodic Other nervous system disorders (6 sources) Ataxia; Translations: [Ataxia, unspecified] Onset: 4 12-31-2023 Episodic Other nervous system disorders (6 sources) Paresthesia; Translations: [Paresthesia of skin] Onset: 4 12-31-2023 Episodic Other screening for suspected conditions (not mental disorders or infectious disease) (6 sources) Disorder of cardiovascular system; 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] Onset: 8 Episodic Residual codes; unclassified (6 sources) Reduced libido; Translations: [Decreased libido] Onset: 8 Episodic Residual codes; unclassified (6 sources) Confusional state; Translations: [Disorientation, unspecified] Onset: 4 12-31-2023 Episodic Screening and history of mental health [...] Reference Range Facility Ambulatory Visit Summaryon 0 12-11-2024 Ambulatory Visit Summary Ambulatory Visit Summary MICHAEL AMESRY Mariam :1940 Visit Date:12/11/2024 Ambulatory Visit Instructions Your Diagnosis OAB (overactive bladder) BPH with urinary obstruction Asymptomatic microscopic hematuria Other obstructive and reflux uropathy Your Care Team Attending Physician - JEMAL Medina APRN, Sobeida June Primary Care Physician - JAVON CRISTINA ERICH This Is Your Medications List trospium (trospium 20 mg oral tablet) Contact prescribing physician if questions or concerns amlodipine (amLODIPine 10 mg Tab) ascorbic acid aspirin (aspirin 81 mg Oral EC Tab) betamethasone-clotrimazole topical (betamethasone-clotrimazol e Top 0.05%-1% Crm 15 gram) cholecalciferol insulin glargine (Lantus Solostar Pen 100 units/mL subcutaneous solution) lisinopril (lisinopril 20 mg Tab) mirabegron (Myrbetriq 50 mg oral tablet, extended release) multivitamin with minerals (Centrum Silver) potassium chloride (potassium chloride 15 mEq oral tablet, extended release) semaglutide (Ozempic) tamsulosin (tamsulosin 0.4 mg Cap) tizanidine (tiZANidine 2 mg Tab) torsemide (torsemide 10 mg Tab) [Image Removed: STOP]Stop taking these medications oxybutynin (oxybutynin 5 mg Tab) Procedures Performed ORIF - Open reduction and internal fixation of fracture (05/01/2021), Left arm (04/28/2021), Cystourethroscopy with dilation of urethral stricture (01/12/2021), TURP - Transurethral resection of prostate (2014), Complete resection of colon, Tonsillectomy. What to do next Scheduled Follow-Up Appointments Saturday 10:30 AM EDT With: LORRAINE DAUGHERTY, Carlos A Hamilton Where: [facility] [address], [address] [place] [address]- Medications What How Much When Instructions New trospium (trospium 20 mg oral tablet) 1 Tablets By Mouth At bedtime Refills: 11 Pickup at [facility]/pharmacy #[id number] Unchanged amlodipine (amLODIPine 10 mg Tab) Contact prescribing physician if questions or concerns Unchanged ascorbic acid 500 Milligram Contact prescribing physician if questions or concerns Unchanged aspirin (aspirin 81 mg Oral EC Tab) 1 Tablets By Mouth Every day Contact prescribing physician if questions or concerns Unchanged betamethasone-clotrimazole topical (betamethasone-clotrimazol e Top 0.05%-1% Crm 15 gram) Topical 2 times a day Contact prescribing physician if questions or concerns Unchanged cholecalciferol 10 Microgram Contact prescribing physician if questions or concerns Unchanged insulin glargine (Lantus Solostar Pen 100 units/ mL subcutaneous solution) 20 Units Subcutaneous Every day Contact prescribing physician if questions or concerns Unchanged lisinopril (lisinopril 20 mg Tab) Contact prescribing physician if questions or concerns Unchanged mirabegron (Myrbetriq 50 mg oral tablet, extended release) 1 Tablets By Mouth Every day Contact prescribing physician if questions or concerns Unchanged multivitamin with minerals (Centrum Silver) By Mouth Every day Contact prescribing physician if questions or concerns Unchanged potassium chloride (potassium chloride 15 mEq oral tablet, extended release) 1 Tablets By Mouth Every day Contact prescribing physician if questions or concerns Unchanged semaglutide (Ozempic) Subcutaneous Contact prescribing physician if questions or concerns Unchanged tamsulosin (tamsulosin 0.4 mg Cap) 1 Capsules Contact prescribing physician if questions or concerns Unchanged tizanidine (tiZANidine 2 mg Tab) Contact prescribing physician if questions or concerns Unchanged torsemide (torsemide 10 mg Tab) 1 Tablets By Mouth Every day Contact prescribing physician if questions or concerns Pharmacy Information [facility]/pharmacy #[id number]: [address], [place] [id number] [phone] What How Much When Comments Stop Taking oxybutynin (oxybutynin 5 mg Tab) 1 Tablets By Mouth At bedtime Take 30 min prior to bedtime. Allergies No Known Allergies Problems Ongoing - Any problem that you are currently receiving treatment for. Asymptomatic microscopic hematuria BPH with urinary obstruction Cigarette smoker COPD type B Delirium Dependent edema Diverticulosis of colon DM2 (diabetes mellitus, type 2) Essential hypertension Frequency of urination and polyuria Hypertension Lumbar spondylosis Mixed hyperlipidemia OAB (overactive bladder) Obesity due to excess calories Pneumonia Radial nerve palsy Urge incontinence Urinary frequency Urinary incontinence Historical - Any problem that you are no longer receiving treatment for. 3-part fracture of surgical neck of left humerus, initial encounter for closed fracture Anemia, blood loss Patient Survey You may receive a survey via text or e-mail asking about your office visit. Please share your experience with us by completing your survey. We appreciate your feedback and thank you for choosing us for your care. Normal [facility] Urology Office/Clinic Noteon 12-11-2024 Urology Office/Clinic Note Urology Office/Clinic Note HPI Staff 84 year old male here for 6 month F/U with PVR Previous DX: OAB, BPH w/LUTS and asymptomatic micro hematuria Pt. taking Flomax 0.4mg, Oxybutynin 5mg qhs and Myrbetriq 50mg qd, Pt. states he has not notice a change S/P TURP 2014 and Cysto/UD 01/12/21 PVR 0mL IPSS 13 Pt. denies having pain with urination or gross hematuria Pt. denies having abd pain or flank pain Pt. denies having any incontinence History of Present Illness I have reviewed and verified the staff HPI to be accurate for this encounter. Portions of this record may have been created with voice recognition artificial intelligence software, specifically [employer], [employer] and or [employer]. Substitutions may have occurred due to the inherent limitations of voice recognition and artificial intelligence software. Physical Exam General: Well developed, well nourished, in no acute distress. Assessment/Plan GPC pt 1. OAB (overactive bladder) (N32.81: Overactive bladder) PVR (cc): 01/29/24 - 27 04/15/24 - 0 12/11/24 - 0 Failed oxybutynin d/t no improvement. Started on Myrbetriq 50 mg and noticed slight improvement. Had drastically decreased coffee intake from 10-12 c daily, down to 1-2 c daily. At prior OV, was started on oxybutynin 5 mg qHS to optimize bladder control at night. Patient tolerating w/o SEs, but notes he has had no improvement of urinary sxs. We discussed that we may not be able to optimize OAB sxs any more than they are at this point, but we can trial layering on a different anticholinergic to see if this makes any difference. Pt would prefer this. -Stop oxybutynin -start trospium 20mg qHS, discussed SEs -f/u 3-4 mos w/ PVR Ordered: 19210 Measure Post Void residual urine and/or bladder capacity by US- non-imaging Urnls Dip Stick Auto w/o Microscopy POC 27878 2. 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 prostatic hyperplasia with lower urinary tract symptoms) S/p TURP [address] Carrasquillo IPSS 13 (9), QoL [address] OAB sxs PCP Dr Alejandro restarted pt on tamsulosin 0.4 mg QD. Pt does not notice any improvement of urination. -cont to monitor 3. Asymptomatic microscopic hematuria (R31.21: Asymptomatic microscopic hematuria) S/p cysto/UD 01/12/21. FISH/cytol 12/29/20 neg. UA today w/o blood or infection. Denies UTI sx or episode of gross hematuria since prior OV. pt knows to contact office for any episode of gross hematuria -cont to monitor Other obstructive and reflux uropathy (N13.8: Other obstructive and reflux uropathy) Orders: trospium, 20 mg = 1 tab(s), Oral, Bedtime, # 30 tab(s), Refills(s) 11, Pharmacy: [facility]/pharmacy #[id number], 180, cm, 04/15/24 13:22:00 EDT, Height/Length Dosing, 108, kg, 04/15/24 13:22:00 EDT, Weight Dosing Follow-up With When Contact Information Carol DE LA CRUZ, RU-C, Sobeida X, FAM, URL Additional Instructions: 3- mos Patient Education Overactive Bladder, Adult Problem List/Past Medical History Ongoing Asymptomatic microscopic [...] (2014), Complete resection of colon, Tonsillectomy. Medications amLODIPine 10 mg Tab ascorbic acid, 500 mg aspirin 81 mg Oral EC Tab, 81 mg= 1 tab(s), Oral, Daily betamethasone-clotrimazole Top 0.05%-1% Crm 15 gram, Topical, BID Centrum Silver, Oral, Daily cholecalciferol, 10 mcg Lantus Solostar Pen 100 units/mL subcutaneous solution, 20 unit(s), SubCutaneous, Daily lisinopril 20 mg Tab Myrbetriq 50 mg oral tablet, extended release, 50 mg= 1 tab(s), Oral, Daily, 11 refills Ozempic, SubCutaneous potassium chloride 15 mEq oral tablet, extended release, 15 mEq= 1 tab(s), Oral, Daily tamsulosin 0.4 mg Cap, 0.4 mg= 1 cap(s) tiZANidine 2 mg Tab torsemide 10 mg Tab, 10 mg= 1 tab(s), Oral, Daily trospium 20 mg oral tablet, 20 mg= 1 tab(s), Oral, Bedtime, 11 refills Allergies No Known Allergies Social History Alcohol Never., 12/11/2024 Substance Abuse Never., 12/11/2024 Tobacco 4 or less cigarettes(less than 1/4 pack)/day in last 30 days Tobacco Use:. Yes, 12/11/2024 Family History Brain cancer: Mother. Hepatitis: Father. Immunizations Vaccine Date Status Comments influenza virus va (more content not included)... [facility] Comment on above: Result Comment: Elec tronically Signed By: JEMAL Medina APRN, [place] X\.hussain\Date and Time Signed: 12/11/24 09:45 EDT Basophils Auto (Bld) [#/Vol] Ordered By: Erich Alejandro on 10-22-2024 Basophils (Bld) [#/Vol] Automated basophil count 0.0-0.2 [facility] Basophils/100 WBC Auto (Bld) Ordered By: Erich Alejandro on 10-22-2024 Basophils/100 WBC (Bld) Automated basophil % . [facility] CT guided bone marrow bx/asp iron 10-22-2024 CT guided bone marrow bx/aspir [facility] [address] CT Scan Report Signed Patient: Jose L Ames MR#: [id number] : 1940 Acct:[id number] Age/Sex: 84 / M ADM Date: 10/22/24 Loc: CT Room: Type: [facility] Attending Dr: Angelo Iglesias MD Copies to: Angelo Iglesias MD Ordering Provider: Angelo Iglesias MD Date of Service: 10/22/24 CT/CT guided bone marrow bx/aspir: ACUTE PANCTOPENIA CT GUIDED BONE MARROW BIOPSY OF THE leftILIAC BONE: CLINICAL HISTORY: Pancytopenia FINDINGS: After questions were answered, informed consent was obtained. The patient was placed prone on the CT table and the right iliac bone was selected for biopsy. The skin over the pelvis was prepped and draped in normal sterile fashion. 1% lidocaine was utilized for local anesthesia. Utilizing CT guidance, an 11-gauge OnControl biopsy needle was advanced into the right iliac bone. 12mL of bone marrow was aspirated and given to pathology. After the sample was deemed adequate by pathology, a core biopsy was obtained and needle was withdrawn. Hemostasis was achieved. Bandage was applied. The patient tolerated procedure well without immediate complication. Please note that the patient was monitored throughout the procedure by nursing personnel. This CT exam was performed using one or more following dose reduction techniques: Automated exposure control, adjustment of the mA and/or kV according to patient size, or use of iterative reconstruction technique. CT/CT guided bone marrow bx/aspir IMPRESSION: Successful CT-guided bone marrow biopsy. Impression dictated by: Jorge A Jones M.D.10/22/2024 12:44 PM Dictation Location: [place] [address] Transcribed By: [facility] 10/22/24 1244 Dictated By: Jorge A Jones MD 10/22/24 1243 Signed By: 10/22/24 1244 Normal [facility] Complete Blood Count Auto Di ffon 10-22-2024 Basophils (Bld) [#/Vol] 0.0 10*3/uL Normal 0.0-0.2 [facility] Comment on above: Result Comment: PERF ORMED BY: [place] [address] PATHOLOGIST [employer] FINISHER ALEX SALMERON M.D. Performed By: #### P TT, FIB-C, PT #### [address] Basophils/100 WBC (Bld) 1.1 % Normal . T nalini [facility] Comment on above: Performed By: #### P TT, FIB-C, PT #### [address] Eosinophils (Bld) [#/Vol] 0.0 10*3/uL Normal 0.0-0.45 [facility] Comment on above: Performed By: #### P TT, FIB-C, PT #### [place] [address] [place] Eosinophils/100 WBC (Bld) 1.1 % Normal . [facility] Comment on above: Performed By: #### P TT, FIB-C, PT #### [address] Erythrocyte distribution width (RBC) [Ratio] 13.6 % Normal 12.0-14.8 [facility] Comment on above: Performed By: #### P TT, FIB-C, PT #### [address] Hematocrit (Bld) [Volume fraction] 38.8 % Normal 38.8-50.0 [facility] Comment on above: Performed By: #### P TT, FIB-C, PT #### [address] Hemoglobin (Bld) [Mass/Vol] 13.4 g/dL Normal 13.0-17.0 [facility] Comment on above: Performed By: #### P TT, FIB-C, PT #### [address] Lymphocytes (Bld) [#/Vol] 0.5 10*3/uL Low 1.00-4.8 [facility] Comment on above: Performed By: #### P TT, FIB-C, PT #### [address] Lymphocytes/100 WBC (Bld) 15.2 % Normal . [facility] Comment on above: Performed By: #### P TT, FIB-C, PT #### [address] MCH (RBC) [Entitic mass] 33.8 pg Normal 27.5-35.2 [facility] Comment on above: Performed By: #### P TT, FIB-C, PT #### [address] MCV (RBC) [Entitic vol] 97.9 fL Normal 83.5-101 [facility] Comment on above: Performed By: #### P TT, FIB-C, PT #### [address] Mean Corpuscular HGB Conc 34.5 g/dL Normal 32.5-35.6 [facility] Comment on above: Performed By: #### P TT, FIB-C, PT #### [address] Monocytes (Bld) [#/Vol] 0.5 10*3/uL Normal 0.0-0.8 [facility] Comment on above: Performed By: #### P TT, FIB-C, PT #### [address] Monocytes/100 WBC (Bld) 13.7 % Normal . T [facility] Comment on above: Performed By: #### P TT, FIB-C, PT #### [address] Neutrophils (Bld) [#/Vol] 2.3 10*3/uL Normal 1.8-7.7 [facility] Comment on above: Performed By: #### P TT, FIB-C, PT #### [address] Neutrophils/100 WBC (Bld) 68.9 % Normal . [facility] Comment on above: Performed By: #### P TT, FIB-C, PT #### [address] NRBC% 0.1 /100{WBC} Normal 0-0.5 [facility] Comment on above: Performed By: #### P TT, FIB-C, PT #### [address] Platelet mean volume (Bld) [Entitic vol] 8.2 fL Normal 6.6-10.1 [facility] Comment on above: Performed By: #### P TT, FIB-C, PT #### [place] [address] [place] Platelets (Bld) [#/Vol] 117 10*3/uL Low 150-450 [facility] Comment on above: Performed By: #### P TT, FIB-C, PT #### [place] [address] [place] RBC (Bld) [#/Vol] 3.96 10*6/uL Normal 3.90-5.60 [facility] Comment on above: Performed By: #### P TT, FIB-C, PT #### [facility] [address] [place] [address] [place] WBC (Bld) [#/Vol] 3.4 10*3/uL Low 4.1-10.5 [facility] Comment on above: Performed By: #### P TT, FIB-C, PT #### [facility] [address] Eosinophils Auto (Bld) [#/Vo l]Ordered By: Erich Alejandro on 10-22-2024 Eosinophils (Bld) [#/Vol] Automated eosinophil count 0.0-0.45 [facility] Eosinophils/100 WBC Auto (Bl d)Ordered By: Erich Alejandro on 10-22-2024 Eosinophils/100 WBC (Bld) Automated eosinophil % . [facility] Erythrocyte distribution wid th Auto (RBC) [Ratio]Ordered By: Erich Alejandro on 10-22-2024 Erythrocyte distribution width (RBC) [Ratio] Erythrocyte distribution width [Ratio] by Automated count 12.0-14.8 [facility] Hematocrit Auto (Bld) [Volum e fraction]Ordered By: Erich Alejandro on 10-22-2024 Hematocrit (Bld) [Volume fraction] Hematocrit [Volume Fraction] of Blood by Automated count 38.8-50.0 [facility] Hemoglobin [Mass/volume] in BloodOrdered By: Erich Alejandro on 10-22-2024 Hemoglobin (Bld) [Mass/Vol] Hemoglobin [Mass/volume] in Blood 13.0-17.0 [facility] INR in Platelet poor plasma by Coagulation assayOrdered By: Angelo Iglesias on 10-22-2024 INR Coag (PPP) [Relative time] INR in Platelet poor plasma by Coagulation assay [facility] Comment on above: INR Therapeutic Rang e A) Pre- and Peroperative OAT started two weeks before surgery. NOT HIP SURGERY: 1.5 - 2.5 HIP SURGERY: 2 - 3B) Primary and secondary prevention of venous THROMBOSIS: 2 - 3C) Active venous thrombosis, pulmonary embolismand prevention of recurrent venous thrombosis: 2 - 3D) Prevention of arterial thromboembolismincluding patients with mechanical heart valves: 3 - 4.5 Leukocytes [#/volume] correc layton for nucleated erythrocytes in Blood by Automated counOrdered By: Erich Alejandro on 10-22-2024 WBC corrected for nucl RBC Auto (Bld) [#/Vol] Leukocytes [#/volume] corrected for nucleated erythrocytes in Blood by Automated coun Low 4.1-10.5 [facility] Lymphocytes Auto (Bld) [#/Vo l]Ordered By: Erich Alejandro on 10-22-2024 Lymphocytes (Bld) [#/Vol] Lymphocytes [#/volume] in Blood by Automated count Low 1.00-4.8 [facility] Lymphocytes/100 WBC Auto (Bl d)Ordered By: Erich Alejandro on 10-22-2024 Lymphocytes/100 WBC (Bld) Lymphocytes/100 leukocytes in Blood by Automated count . [facility] MCH Auto (RBC) [Entitic mass ]Ordered By: Erich Alejandro on 10-22-2024 MCH (RBC) [Entitic mass] MCH [Entitic mass] by Automated count 27.5-35.2 [facility] MCHC Auto (RBC) [Mass/Vol]Or dered By: Erich Alejandro on 10-22-2024 MCHC (RBC) [Mass/Vol] MCHC [Mass/volume] by Automated count 32.5-35.6 [facility] MCV Auto (RBC) [Entitic vol] Ordered By: Erich Alejandro on 10-22-2024 MCV (RBC) [Entitic vol] MCV [Entitic vol ume] by Automated count 83.5-101 [facility] Monocytes Auto (Bld) [#/Vol] Ordered By: Erich Alejandro on 10-22-2024 Monocytes (Bld) [#/Vol] Automated blood monocyte count 0.0-0.8 [facility] Monocytes/100 WBC Auto (Bld) Ordered By: Erich Alejandro on 10-22-2024 Monocytes/100 WBC (Bld) Automated monocyte % . [facility] Neutrophils Auto (Bld) [#/Vo l]Ordered By: Erich Alejandro on 10-22-2024 Neutrophils (Bld) [#/Vol] Neutrophils [#/volume] in Blood by Automated count 1.8-7.7 [facility] Neutrophils/100 WBC Auto (Bl d)Ordered By: Erich Aljeandro on 10-22-2024 Neutrophils/100 WBC (Bld) Automated neutrophil % . [facility] No Panel InformationOrdered By: Angelo Iglesias on 10-22-2024 Miscellaneous Pathology Test See comment [facility] Comment on above: See report. Scanned copy available in EMR. Nucleated erythrocytes [Pres ence] in Blood by Automated countOrdered By: Erich Alejandro on 10-22-2024 Nucleated RBC Auto Ql (Bld) Nucleated erythrocytes [Presence] in Blood by Automated count 0-0.5 [facility] Pathology Request for Lab Co rpon 10-22-2024 Pathology Request for Lab Zainab Normal [facility] Comment on above: Result Comment: See report. Scanned copy available in EMR. PERFORMED BY: [place] [address] PATHOLOGIST [employer] FINISHER LAEX SALMERON M.D. Performed By: #### P TT, FIB-C, PT #### [address] Platelet mean volume Auto (B ld) [Entitic vol]Ordered By: Erich Alejandro on 10-22-2024 Platelet mean volume (Bld) [Entitic vol] Platelet mean volume [Entitic volume] in Blood by Automated count 6.6-10.1 [facility] Platelets Auto (Bld) [#/Vol] Ordered By: Erich Alejandro on 10-22-2024 Platelets (Bld) [#/Vol] Platelets [#/vol ume] in Blood by Automated count Low 150-450 [facility] Prothrombin Time INRon 10-22 INR Coag (PPP) [Relative time] 1.0 {INR} Normal [facility] Comment on above: Result Comment: INR Therapeutic Range A) Pre- and Peroperative OAT started two weeks before surgery. NOT HIP SURGERY: 1.5 - 2.5 HIP SURGERY: 2 - 3 B) Primary and secondary prevention of venous THROMBOSIS: 2 - 3 C) Active venous thrombosis, pulmonary embolism and prevention of recurrent venous thrombosis: 2 - 3 D) Prevention of arterial thromboembolism including patients with mechanical heart valves: 3 - 4.5 PERFORMED BY: [address] [place] [address] PATHOLOGIST [employer] FINISHER MOHAMED M EL-FAKHARANY M.D. Performed By: #### B MP, MG, CBC #### [address] PT Coag (PPP) [Time] 11.3 s Normal 9.0-12.9 [facility] Comment on above: Result Comment: A he matocrit value greater than 55% may lead to inaccurate results in coagulation testing. Patients having hematocrit values >55% require a special collection tube for coagulation studies. Please contact the laboratory at [phone] for redraw instructions. Performed By: #### B MP, MG, CBC #### [address] Prothrombin time (PT)Ordered By: Angelo Iglesias on 10-22-2024 PT Coag (PPP) [Time] Prothrombin time (PT) 9.0- 12.9 [facility] Comment on above: A hematocrit value g reater than 55% may lead to inaccurate results in coagulation testing. Patients having hematocrit values >55% require a special collection tube for coagulation studies. Please contact the laboratory at [phone] for redraw instructions. RBC Auto (Bld) [#/Vol]Ordere d By: Erich Alejandro on 10-22-2024 RBC (Bld) [#/Vol] Erythrocytes [#/volu me] in Blood by Automated count 3.90-5.60 [facility] WBC Auto (Bld) [#/Vol]Ordere d By: Erich Alejandro on 10-22-2024 WBC (Bld) [#/Vol] Leukocytes [#/volume ] in Blood by Automated count Low 4.1-10.5 [facility] Basic Metabolic Panelon 10-03 Anion gap [Moles/Vol] 9.3 mmol/L Normal 6.0-15.0 [facility] Comment on above: Performed By: #### B MP, MG, CBC #### [address] Calcium [Mass/Vol] 7.9 mg/dL Low 8.6-10.3 [facility] Comment on above: Performed By: #### B MP, MG, CBC #### [address] Chloride [Moles/Vol] 104 mmol/L Normal 98-107 [facility] Comment on above: Performed By: #### B MP, MG, CBC #### [address] CO2 [Moles/Vol] 27.1 mmol/L Normal 21.0-31.0 [facility] Comment on above: Performed By: #### B MP, MG, CBC #### [address] Creatinine [Mass/Vol] 1.17 mg/dL Normal 0.70-1.30 [facility] Comment on above: Performed By: #### B MP, MG, CBC #### [address] Creatinine Clr Calc Pharmacy 57.95 Normal [facility] Comment on above: Performed By: #### B MP, MG, CBC #### [place] [address] [place] GFR/1.73 sq M.predicted MDRD (S/P/Bld) [Vol rate/Area] mL/min/{1.73_m2} Normal [facility] Comment on above: Performed By: #### B MP, MG, CBC #### [address] Glucose [Mass/Vol] 168 mg/dL High 70-100 [facility] Comment on above: Result Comment: [place] Glucose Reference Range is dependent on time and content of last meal. Glucose of more than 200 mg/dL in a nonstressed, ambulatory subject supports the diagnosis of Diabetes Mellitus. ADA recommended reference range Performed By: #### B MP, MG, CBC #### [place] [address] [place] Potassium [Moles/Vol] 3.4 mmol/L Low 3.5-5.1 [facility] Comment on above: Performed By: #### B MP, MG, CBC #### [place] [address] [place] Sodium [Moles/Vol] 137 mmol/L Normal 136-145 [facility] Comment on above: Performed By: #### B MP, MG, CBC #### [facility] [address] Urea nitrogen [Mass/Vol] 17 mg/dL Normal 7-25 [facility] Comment on above: Performed By: #### B MP, MG, CBC #### [facility] [address] Basophils Auto (Bld) [#/Vol] Ordered By: [place] on 10-14-2024 Basophils (Bld) [#/Vol] Automated basophil count 0.0-0.2 [facility] Basophils/100 WBC Auto (Bld) Ordered By: [place] on 10-14-2024 Basophils/100 WBC (Bld) Automated basophil % . [facility] Calcium [Mass/volume] in Ser um or PlasmaOrdered By: [place] on 10-14-2024 Calcium [Mass/Vol] Calcium [Mass/volume ] in Serum or Plasma Low 8.6-10.3 [facility] Carbon dioxide, total [Moles /volume] in Serum or PlasmaOrdered By: [place] on 10-14-2024 CO2 [Moles/Vol] Carbon dioxide, tota l [Moles/volume] in Serum or Plasma 21.0-31.0 [facility] Chloride [Moles/volume] in S beto or PlasmaOrdered By: [place] on 10-14-2024 Chloride [Moles/Vol] Chloride [Moles/vol ume] in Serum or Plasma 98-107 [facility] Complete Blood Count Auto Di ffon 10-14-2024 Basophils (Bld) [#/Vol] 0.0 10*3/uL Normal 0.0-0.2 [facility] Comment on above: Result Comment: PERF ORMED BY: [facility] [address] [place] [address] PATHOLOGIST [employer]ER ALEX SALMERON M.D. Performed By: #### B MP, MG, CBC #### [facility] [address] Basophils/100 WBC (Bld) 1.4 % Normal . [place] [facility] [facility] Comment on above: Performed By: #### B MP, MG, CBC #### [facility] [address] Eosinophils (Bld) [#/Vol] 0.1 10*3/uL Normal 0.0-0.45 [facility] Comment on above: Performed By: #### B MP, MG, CBC #### [facility] [address] Eosinophils/100 WBC (Bld) 2.0 % Normal . [facility] Comment on above: Performed By: #### B MP, MG, CBC #### [address] Erythrocyte distribution width (RBC) [Ratio] 13.1 % Normal 12.0-14.8 [facility] Comment on above: Performed By: #### B MP, MG, CBC #### [address] Hematocrit (Bld) [Volume fraction] 32.8 % Low 38.8-50.0 [facility] Comment on above: Performed By: #### B MP, MG, CBC #### [address] Hemoglobin (Bld) [Mass/Vol] 11.7 g/dL Low 13.0-17.0 [facility] Comment on above: Performed By: #### B MP, MG, CBC #### [facility] [address] [place] [address] [place] Lymphocytes (Bld) [#/Vol] 0.8 10*3/uL Low 1.00-4.8 [facility] Comment on above: Performed By: #### B MP, MG, CBC #### [facility] [address] [place] [address] [place] Lymphocytes/100 WBC (Bld) 24.6 % Normal . [facility] Comment on above: Performed By: #### B MP, MG, CBC #### [address] MCH (RBC) [Entitic mass] 34.3 pg Normal 27.5-35.2 [facility] Comment on above: Performed By: #### B MP, MG, CBC #### [address] MCV (RBC) [Entitic vol] 96.0 fL Normal 83.5-101 T [facility] Comment on above: Performed By: #### B MP, MG, CBC #### [address] Mean Corpuscular HGB Conc 35.7 g/dL High 32.5-35.6 [facility] Comment on above: Performed By: #### B MP, MG, CBC #### [address] Monocytes (Bld) [#/Vol] 0.3 10*3/uL Normal 0.0-0.8 [facility] Comment on above: Performed By: #### B MP, MG, CBC #### [address] Monocytes/100 WBC (Bld) 9.8 % Normal . [facility] Comment on above: Performed By: #### B MP, MG, CBC #### [address] Neutrophils (Bld) [#/Vol] 2.0 10*3/uL Normal 1.8-7.7 [facility] Comment on above: Performed By: #### B MP, MG, CBC #### [address] Neutrophils/100 WBC (Bld) 62.2 % Normal . [facility] Comment on above: Performed By: #### B MP, MG, CBC #### [address] NRBC% 0.1 /100{WBC} Normal 0-0.5 [facility] Comment on above: Performed By: #### B MP, MG, CBC #### [facility] [address] Platelet mean volume (Bld) [Entitic vol] 8.0 fL Normal 6.6-10.1 [facility] Comment on above: Performed By: #### B MP, MG, CBC #### [facility] [address] Platelets (Bld) [#/Vol] 85 10*3/uL Low 150-450 T he [facility] Comment on above: Performed By: #### B MP, MG, CBC #### [facility] [address] RBC (Bld) [#/Vol] 3.42 10*6/uL Low 3.90-5.60 [facility] Comment on above: Performed By: #### B MP, MG, CBC #### [facility] [address] WBC (Bld) [#/Vol] 3.2 10*3/uL Low 4.1-10.5 [facility] Comment on above: Performed By: #### B MP, MG, CBC #### [facility] [address] [place] [address] Creatinine [Mass/volume] in Serum or PlasmaOrdered By: West Caraballo on 10-14-2024 Creatinine [Mass/Vol] Creatinine [Mass/v olume] in Serum or Plasma 0.70-1.30 [facility] Eosinophils Auto (Bld) [#/Vo l]Ordered By: West Caraballo on 10-14-2024 Eosinophils (Bld) [#/Vol] Automated eosinophil count 0.0-0.45 [facility] Eosinophils/100 WBC Auto (Bl d)Ordered By: West Caraballo on 10-14-2024 Eosinophils/100 WBC (Bld) Automated eosinophil % . [facility] Erythrocyte distribution wid th Auto (RBC) [Ratio]Ordered By: West Caraballo on 10-14-2024 Erythrocyte distribution width (RBC) [Ratio] Erythrocyte distribution width [Ratio] by Automated count 12.0-14.8 [facility] Glucose Glucometer (BldC) [M ass/Vol]Ordered By: West Caraballo on 10-14-2024 Glucose [Mass/Vol] Capillary blood gluc ose measurement by glucometer (mass/volume) [facility] Comment on above: Random Glucose Refer ence Range is dependent on time and content of last meal. Glucose of more than 200 mg/dL in a nonstressed, ambulatory subject supports the diagnosis of Diabetes Mellitus. Glucose Poct Glucometerson 0 10-14-2024 Commemt1 Glu2: Cleaned Meter Normal [facility] Comment on above: Result Comment: PERF ORMED BY: [place] [address] PATHOLOGIST [employer] ALEX SALMERON M.D. Performed By: #### G LULS #### Point of Care testing , Glucose [Mass/Vol] 201 mg/dL Normal [facility] Comment on above: Result Comment: [place] Glucose Reference Range is dependent on time and content of last meal. Glucose of more than 200 mg/dL in a nonstressed, ambulatory subject supports the diagnosis of Diabetes Mellitus. Performed By: #### G LULS #### Point of Care testing , Commemt1 Glu2: Cleaned Meter Normal [facility] Comment on above: Result Comment: PERF ORMED BY: [address] [place] [address] PATHOLOGIST [employer] ALEX SALMERON M.D. Performed By: #### G LULS #### Point of Care testing , Glucose [Mass/Vol] 145 mg/dL Normal [facility] Comment on above: Result Comment: [place] Glucose Reference Range is dependent on time and content of last meal. Glucose of more than 200 mg/dL in a nonstressed, ambulatory subject supports the diagnosis of Diabetes Mellitus. Performed By: #### G LULS #### Point of Care testing , Glucose [Mass/volume] in Ser um or PlasmaOrdered By: West Caraballo on 10-14-2024 Glucose [Mass/Vol] Glucose [Mass/volume ] in Serum or Plasma High 70-100 [facility] Comment on above: ADA recommended refe rence rangeRandom Glucose Reference Range is dependent on time and content of last meal. Glucose of more than 200 mg/dL in a nonstressed, ambulatory subject supports the diagnosis of Diabetes Mellitus. Hematocrit Auto (Bld) [Volum e fraction]Ordered By: West Caraballo on 10-14-2024 Hematocrit (Bld) [Volume fraction] Hematocrit [Volume Fraction] of Blood by Automated count Low 38.8-50.0 [facility] Hemoglobin [Mass/volume] in BloodOrdered By: West Caraballo on 10-14-2024 Hemoglobin (Bld) [Mass/Vol] Hemoglobin [Mass/volume] in Blood Low 13.0-17.0 [facility] Leukocytes [#/volume] correc layton for nucleated erythrocytes in Blood by Automated counOrdered By: West Caraballo on 10-14-2024 WBC corrected for nucl RBC Auto (Bld) [#/Vol] Leukocytes [#/volume] corrected for nucleated erythrocytes in Blood by Automated coun Low 4.1-10.5 [facility] Lymphocytes Auto (Bld) [#/Vo l]Ordered By: West Caraballo on 10-14-2024 Lymphocytes (Bld) [#/Vol] Lymphocytes [#/volume] in Blood by Automated count Low 1.00-4.8 [facility] Lymphocytes/100 WBC Auto (Bl d)Ordered By: West Caraballo on 10-14-2024 Lymphocytes/100 WBC (Bld) Lymphocytes/100 leukocytes in Blood by Automated count . [facility] MCH Auto (RBC) [Entitic mass ]Ordered By: West Caraballo on 10-14-2024 MCH (RBC) [Entitic mass] MCH [Entitic mass] by Automated count 27.5-35.2 [facility] MCHC Auto (RBC) [Mass/Vol]Or dered By: West Caraballo on 10-14-2024 MCHC (RBC) [Mass/Vol] MCHC [Mass/volume] by Automated count High 32.5-35.6 [facility] MCV Auto (RBC) [Entitic vol] Ordered By: West Caraballo on 10-14-2024 MCV (RBC) [Entitic vol] MCV [Entitic vol ume] by Automated count 83.5-101 [facility] Magnesiumon 10-14-2024 Magnesium [Mass/Vol] 1.7 mg/dL Low 1.9-2.7 [facility] Comment on above: Result Comment: PERF ORMED BY: [facility] [address] [place] [address] PATHOLOGIST [employer] ALEX SALMERON M.D. Performed By: #### B MP, MG, CBC #### [facility] [address] Magnesium [Mass/volume] in S beto or PlasmaOrdered By: West Caraballo on 10-14-2024 Magnesium [Mass/Vol] Magnesium [Mass/vol ume] in Serum or Plasma Low 1.9-2.7 [facility] Monocytes Auto (Bld) [#/Vol] Ordered By: Wets Caraballo on 10-14-2024 Monocytes (Bld) [#/Vol] Automated blood monocyte count 0.0-0.8 [facility] Monocytes/100 WBC Auto (Bld) Ordered By: West Caraballo on 10-14-2024 Monocytes/100 WBC (Bld) Automated monocyte % . [facility] Neutrophils Auto (Bld) [#/Vo l]Ordered By: West Caraballo on 10-14-2024 Neutrophils (Bld) [#/Vol] Neutrophils [#/volume] in Blood by Automated count 1.8-7.7 [facility] Neutrophils/100 WBC Auto (Bl d)Ordered By: Westscotty Caraballo on 10-14-2024 Neutrophils/100 WBC (Bld) Automated neutrophil % . [facility] No Panel InformationOrdered By: West Caraballo on 10-14-2024 Bedside Glucose Comment Glu2: cleaned meter [facility] Estimated GFR (CKD-EPI) > 60.0 mL/Min [facility] Creatinine Clearance (Chem 57.95 [facility] Nucleated erythrocytes [Pres ence] in Blood by Automated countOrdered By: West Caraballo on 10-14-2024 Nucleated RBC Auto Ql (Bld) Nucleated erythrocytes [Presence] in Blood by Automated count 0-0.5 [facility] Platelet mean volume Auto (B ld) [Entitic vol]Ordered By: West Caraballo on 10-14-2024 Platelet mean volume (Bld) [Entitic vol] Platelet mean volume [Entitic volume] in Blood by Automated count 6.6-10.1 [facility] Platelets Auto (Bld) [#/Vol] Ordered By: West Caraballo on 10-14-2024 Platelets (Bld) [#/Vol] Platelets [#/vol ume] in Blood by Automated count Low 150-450 [facility] Potassium [Moles/volume] in Serum or PlasmaOrdered By: West Caraballo on 10-14-2024 Potassium [Moles/Vol] Potassium [Moles/v olume] in Serum or Plasma Low 3.5-5.1 [facility] RBC Auto (Bld) [#/Vol]Ordere d By: West Caraballo on 10-14-2024 RBC (Bld) [#/Vol] Erythrocytes [#/volu me] in Blood by Automated count Low 3.90-5.60 [facility] Serum or plasma anion gap de terminationOrdered By: West Caraballo on 10-14-2024 Anion gap [Moles/Vol] Serum or plasma an ion gap determination 6.0-15.0 [facility] Sodium [Moles/volume] in Ser um or PlasmaOrdered By: West Caraballo on 10-14-2024 Sodium [Moles/Vol] Sodium [Moles/volume ] in Serum or Plasma 136-145 [facility] Urea nitrogen [Mass/volume] in Serum or PlasmaOrdered By: West Caraballo on 10-14-2024 Urea nitrogen [Mass/Vol] Urea nitrogen [Mass/volume] in Serum or Plasma 7-25 [facility] WBC Auto (Bld) [#/Vol]Ordere d By: West Caraballo on 10-14-2024 WBC (Bld) [#/Vol] Leukocytes [#/volume ] in Blood by Automated count Low 4.1-10.5 [facility] Basic Metabolic Panelon 10-03 Anion gap [Moles/Vol] 8.8 mmol/L Normal 6.0-15.0 [facility] Comment on above: Performed By: #### B MP, MG, CBC #### [facility] [address] [place] [address] [place] Calcium [Mass/Vol] 7.8 mg/dL Low 8.6-10.3 [facility] Comment on above: Performed By: #### B MP, MG, CBC #### [facility] [address] [place] [address] [place] Chloride [Moles/Vol] 107 mmol/L Normal 98-107 [facility] Comment on above: Performed By: #### B MP, MG, CBC #### [facility] [address] [place] [address] [place] CO2 [Moles/Vol] 25.7 mmol/L Normal 21.0-31.0 [facility] Comment on above: Performed By: #### B MP, MG, CBC #### [facility] [address] [place] [address] [place] Creatinine [Mass/Vol] 1.01 mg/dL Normal 0.70-1.30 [facility] Comment on above: Performed By: #### B MP, MG, CBC #### [facility] [address] [place] [address] [place] Creatinine Clr Calc Pharmacy 67.31 Normal [facility] Comment on above: Result Comment: PERF ORMED BY: [place] [address] PATHOLOGIST [employer] ALEX SALMERON M.D. Performed By: #### B MP, MG, CBC #### [place] [address] [place] GFR/1.73 sq M.predicted MDRD (S/P/Bld) [Vol rate/Area] mL/min/{1.73_m2} Normal [facility] Comment on above: Performed By: #### B MP, MG, CBC #### [address] Glucose [Mass/Vol] 144 mg/dL High 70-100 [facility] Comment on above: Result Comment: [place] Glucose Reference Range is dependent on time and content of last meal. Glucose of more than 200 mg/dL in a nonstressed, ambulatory subject supports the diagnosis of Diabetes Mellitus. ADA recommended reference range Performed By: #### B MP, MG, CBC #### [address] Potassium [Moles/Vol] 3.5 mmol/L Normal 3.5-5.1 [facility] Comment on above: Performed By: #### B MP, MG, CBC #### [address] Sodium [Moles/Vol] 138 mmol/L Normal 136-145 [facility] Comment on above: Performed By: #### B MP, MG, CBC #### [address] Urea nitrogen [Mass/Vol] 14 mg/dL Normal 7-25 [facility] Comment on above: Performed By: #### B MP, MG, CBC #### [address] Complete Blood Count Auto Di ffon 10-13-2024 Basophils (Bld) [#/Vol] 0.0 10*3/uL Normal 0.0-0.2 [facility] Comment on above: Result Comment: PERF ORMED BY: [place] [address] PATHOLOGIST [employer] ALEX SALMERON M.D. Performed By: #### B MP, MG, CBC #### [place] [address] [place] Basophils/100 WBC (Bld) 0.9 % Normal . T he [facility] Comment on above: Performed By: #### B MP, MG, CBC #### [address] Eosinophils (Bld) [#/Vol] 0.0 10*3/uL Normal 0.0-0.45 [facility] Comment on above: Performed By: #### B MP, MG, CBC #### [address] Eosinophils/100 WBC (Bld) 1.7 % Normal . [facility] Comment on above: Performed By: #### B MP, MG, CBC #### [address] Erythrocyte distribution width (RBC) [Ratio] 12.9 % Normal 12.0-14.8 [facility] Comment on above: Performed By: #### B MP, MG, CBC #### [address] Hematocrit (Bld) [Volume fraction] 33.3 % Low 38.8-50.0 [facility] Comment on above: Performed By: #### B MP, MG, CBC #### [address] Hemoglobin (Bld) [Mass/Vol] 11.7 g/dL Low 13.0-17.0 [facility] Comment on above: Performed By: #### B MP, MG, CBC #### [address] Lymphocytes (Bld) [#/Vol] 0.7 10*3/uL Low 1.00-4.8 [facility] Comment on above: Performed By: #### B MP, MG, CBC #### [address] Lymphocytes/100 WBC (Bld) 25.8 % Normal . [facility] Comment on above: Performed By: #### B MP, MG, CBC #### [address] MCH (RBC) [Entitic mass] 33.7 pg Normal 27.5-35.2 [facility] Comment on above: Performed By: #### B MP, MG, CBC #### [address] MCV (RBC) [Entitic vol] 96.2 fL Normal 83.5-101 T [facility] Comment on above: Performed By: #### B MP, MG, CBC #### [address] Mean Corpuscular HGB Conc 35.0 g/dL Normal 32.5-35.6 [facility] Comment on above: Performed By: #### B MP, MG, CBC #### [address] Monocytes (Bld) [#/Vol] 0.2 10*3/uL Normal 0.0-0.8 [facility] Comment on above: Performed By: #### B MP, MG, CBC #### [address] Monocytes/100 WBC (Bld) 7.9 % Normal . [facility] Comment on above: Performed By: #### B MP, MG, CBC #### [address] Neutrophils (Bld) [#/Vol] 1.7 10*3/uL Low 1.8-7.7 [facility] Comment on above: Performed By: #### B MP, MG, CBC #### [address] Neutrophils/100 WBC (Bld) 63.7 % Normal . [facility] Comment on above: Performed By: #### B MP, MG, CBC #### [address] NRBC% 0.2 /100{WBC} Normal 0-0.5 [facility] Comment on above: Performed By: #### B MP, MG, CBC #### [address] Platelet mean volume (Bld) [Entitic vol] 8.0 fL Normal 6.6-10.1 [facility] Comment on above: Performed By: #### B MP, MG, CBC #### [address] Platelets (Bld) [#/Vol] 77 10*3/uL Low 150-450 T he [facility] Comment on above: Performed By: #### B MP, MG, CBC #### [address] RBC (Bld) [#/Vol] 3.46 10*6/uL Low 3.90-5.60 [facility] Comment on above: Performed By: #### B MP, MG, CBC #### [address] WBC (Bld) [#/Vol] 2.7 10*3/uL Low 4.1-10.5 [facility] Comment on above: Performed By: #### B MP, MG, CBC #### [address] Glucose Poct Glucometerson 0 10-13-2024 Glucose [Mass/Vol] 184 mg/dL Normal [facility] Comment on above: Result Comment: [facility] [place] Glucose Reference Range is dependent on time and content of last meal. Glucose of more than 200 mg/dL in a nonstressed, ambulatory subject supports the diagnosis of Diabetes Mellitus. PERFORMED BY: [place] [address] PATHOLOGIST [employer] ALEX SALMERON M.D. Performed By: #### G LULS #### Point of Care testing , Glucose [Mass/Vol] 134 mg/dL Normal [facility] Comment on above: Result Comment: [facility] [place] Glucose Reference Range is dependent on time and content of last meal. Glucose of more than 200 mg/dL in a nonstressed, ambulatory subject supports the diagnosis of Diabetes Mellitus. PERFORMED BY: [place] [address] PATHOLOGIST [employer] ALEX SALMERON M.D. Performed By: #### P TT, FIB-C, PT #### [address] [place] [address] [facility] Glucose [Mass/Vol] 172 mg/dL Normal [facility] Comment on above: Result Comment: [facility] [place] Glucose Reference Range is dependent on time and content of last meal. Glucose of more than 200 mg/dL in a nonstressed, ambulatory subject supports the diagnosis of Diabetes Mellitus. PERFORMED BY: [place] [address] PATHOLOGIST [employer] FIN[employer]ER ALEX SALMERON M.D. Performed By: #### G LULS #### Point of Care testing , Glucose [Mass/Vol] 125 mg/dL Normal [facility] Comment on above: Result Comment: [facility] [place] Glucose Reference Range is dependent on time and content of last meal. Glucose of more than 200 mg/dL in a nonstressed, ambulatory subject supports the diagnosis of Diabetes Mellitus. PERFORMED BY: [address] [address] PATHOLOGIST [employer] ALEX SALMERON M.D. Performed By: #### G LULS #### Point of Care testing , Alanine aminotransferase [En zymatic activity/volume] in Serum or PlasmaOrdered By: Loyda Carlos on 10-12-2024 ALT [Catalytic activity/Vol] Alanine aminotransferase [Enzymatic activity/volume] in Serum or Plasma 752 [facility] Albumin [Mass/volume] in Ser um or Plasma by Bromocresol green (BCG) dye binding methoOrdered By: Loyda Carlos on 10-12-2024 Albumin BCG dye [Mass/Vol] Albumin [Mass/volume] in Serum or Plasma by Bromocresol green (BCG) dye binding metho Low 3.5-5.7 [facility] Alkaline phosphatase [Enzyma tic activity/volume] in Serum or PlasmaOrdered By: Loyda Carlos on 10-12-2024 ALP [Catalytic activity/Vol] Alkaline phosphatase [Enzymatic activity/volume] in Serum or Plasma 34-104 [facility] Aspartate aminotransferase [ Enzymatic activity/volume] in Serum or PlasmaOrdered By: Loyda Carlos on 10-12-2024 AST [Catalytic activity/Vol] Aspartate aminotransferase [Enzymatic activity/volume] in Serum or Plasma High 13-39 [facility] Bilirubin.total [Mass/volume ] in Serum or PlasmaOrdered By: Loyda Carlos on 10-12-2024 Bilirubin [Mass/Vol] Bilirubin.total [Mass/volume] in Serum or Plasma 0.3-1.0 [facility] Complete Blood Count Auto Di ffon 10-12-2024 Basophils (Bld) [#/Vol] 0.0 10*3/uL Normal 0.0-0.2 [facility] Comment on above: Result Comment: PERF ORMED BY: [place] [address] PATHOLOGIST [employer] ALEX SALMERON M.D. Performed By: #### B MP, MG, CBC #### [address] Basophils/100 WBC (Bld) 1.0 % Normal . T he [facility] Comment on above: Performed By: #### B MP, MG, CBC #### [address] Eosinophils (Bld) [#/Vol] 0.0 10*3/uL Normal 0.0-0.45 [facility] Comment on above: Performed By: #### B MP, MG, CBC #### [address] Eosinophils/100 WBC (Bld) 1.5 % Normal . [facility] Comment on above: Performed By: #### B MP, MG, CBC #### [address] Erythrocyte distribution width (RBC) [Ratio] 13.4 % Normal 12.0-14.8 [facility] Comment on above: Performed By: #### B MP, MG, CBC #### [address] Hematocrit (Bld) [Volume fraction] 32.8 % Low 38.8-50.0 [facility] Comment on above: Performed By: #### B MP, MG, CBC #### [address] Hemoglobin (Bld) [Mass/Vol] 11.5 g/dL Low 13.0-17.0 [facility] Comment on above: Performed By: #### B MP, MG, CBC #### [address] Lymphocytes (Bld) [#/Vol] 0.7 10*3/uL Low 1.00-4.8 [facility] Comment on above: Performed By: #### B MP, MG, CBC #### [address] Lymphocytes/100 WBC (Bld) 26.9 % Normal . [facility] Comment on above: Performed By: #### B MP, MG, CBC #### [address] MCH (RBC) [Entitic mass] 33.5 pg Normal 27.5-35.2 [facility] Comment on above: Performed By: #### B MP, MG, CBC #### [address] MCV (RBC) [Entitic vol] 96.0 fL Normal 83.5-101 T nalini [facility] Comment on above: Performed By: #### B MP, MG, CBC #### [address] Mean Corpuscular HGB Conc 34.9 g/dL Normal 32.5-35.6 [facility] Comment on above: Performed By: #### B MP, MG, CBC #### [address] Monocytes (Bld) [#/Vol] 0.3 10*3/uL Normal 0.0-0.8 [facility] Comment on above: Performed By: #### B MP, MG, CBC #### [address] Monocytes/100 WBC (Bld) 10.4 % Normal . T nalini [facility] Group Comment on above: Performed By: #### B MP, MG, CBC #### [address] Neutrophils (Bld) [#/Vol] 1.5 10*3/uL Low 1.8-7.7 The [facility] Comment on above: Performed By: #### B MP, MG, CBC #### [address] Neutrophils/100 WBC (Bld) 60.2 % Normal . The [facility] Comment on above: Performed By: #### B MP, MG, CBC #### [address] NRBC% 0.3 /100{WBC} Normal 0-0.5 The [facility] Comment on above: Performed By: #### B MP, MG, CBC #### [address] Platelet mean volume (Bld) [Entitic vol] 8.0 fL Normal 6.6-10.1 The [facility] Comment on above: Performed By: #### B MP, MG, CBC #### [place] [address] [place] Platelets (Bld) [#/Vol] 73 10*3/uL Low 150-450 T he [facility] Comment on above: Performed By: #### B MP, MG, CBC #### [address] RBC (Bld) [#/Vol] 3.42 10*6/uL Low 3.90-5.60 The [facility] Comment on above: Performed By: #### B MP, MG, CBC #### [place] [address] [place] WBC (Bld) [#/Vol] 2.5 10*3/uL Low 4.1-10.5 The [facility] Comment on above: Performed By: #### B MP, MG, CBC #### [address] Comprehensive Metabolic Pane cyndy 10-12-2024 Albumin [Mass/Vol] 3.0 g/dL Low 3.5-5.7 The [facility] Comment on above: Performed By: #### B MP, MG, CBC #### [facility] [address] Albumin/Globulin [Mass ratio] 1.8 {ratio} Normal [facility] Comment on above: Performed By: #### B MP, MG, CBC #### [facility] [address] ALP [Catalytic activity/Vol] 69 U/L Normal 34-104 [facility] Comment on above: Performed By: #### B MP, MG, CBC #### [facility] [address] ALT [Catalytic activity/Vol] 47 U/L Normal 7-52 [facility] Comment on above: Performed By: #### B MP, MG, CBC #### [address] Anion gap [Moles/Vol] 11.1 mmol/L Normal 6.0-15.[address] [facility] Comment on above: Performed By: #### B MP, MG, CBC #### [address] AST [Catalytic activity/Vol] 42 U/L High 13-39 [facility] Comment on above: Performed By: #### B MP, MG, CBC #### [place] [address] [place] Bilirubin [Mass/Vol] 0.3 mg/dL Normal 0.3-1.0 The [facility] Comment on above: Performed By: #### B MP, MG, CBC #### [place] [address] [place] Calcium [Mass/Vol] 7.5 mg/dL Low 8.6-10.3 The [facility] Comment on above: Performed By: #### B MP, MG, CBC #### [facility] [address] [place] [address] [place] Chloride [Moles/Vol] 109 mmol/L High 98-107 [facility] Comment on above: Performed By: #### B MP, MG, CBC #### [address] CO2 [Moles/Vol] 22.7 mmol/L Normal 21.0-31.0 [facility] Comment on above: Performed By: #### B MP, MG, CBC #### [address] Creatinine [Mass/Vol] 1.07 mg/dL Normal 0.70-1.30 The [facility] Comment on above: Performed By: #### B MP, MG, CBC #### [place] [address] [place] Creatinine Clr Calc Pharmacy 62.69 Normal [facility] Comment on above: Performed By: #### B MP, MG, CBC #### [place] [address] [place] GFR/1.73 sq M.predicted MDRD (S/P/Bld) [Vol rate/Area] mL/min/{1.73_m2} Normal [facility] Comment on above: Performed By: #### B MP, MG, CBC #### [address] Globulin (S) [Mass/Vol] 1.7 g/dL Normal T he [facility] Comment on above: Performed By: #### B MP, MG, CBC #### [address] Glucose [Mass/Vol] 134 mg/dL High 70-100 [facility] Comment on above: Result Comment: [place] Glucose Reference Range is dependent on time and content of last meal. Glucose of more than 200 mg/dL in a nonstressed, ambulatory subject supports the diagnosis of Diabetes Mellitus. ADA recommended reference range Performed By: #### B MP, MG, CBC #### [address] Potassium [Moles/Vol] 3.8 mmol/L Normal 3.5-5.1 The [facility] Comment on above: Performed By: #### B MP, MG, CBC #### [facility] [address] Protein [Mass/Vol] 4.7 g/dL Low 6.4-8.9 The [facility] Comment on above: Performed By: #### B MP, MG, CBC #### [facility] [address] Sodium [Moles/Vol] 139 mmol/L Normal 136-145 [facility] Comment on above: Performed By: #### B MP, MG, CBC #### [facility] [address] Urea nitrogen [Mass/Vol] 14 mg/dL Normal 7-25 The [facility] Comment on above: Performed By: #### B MP, MG, CBC #### [facility] [address] Globulin Calc (S) [Mass/Vol] Ordered By: Loyda Carlos on 10-12-2024 Globulin (S) [Mass/Vol] Serum globulin m easurement by calculation (mass/volume) [facility] Glucose Poct Glucometerson 0 10-12-2024 Glucose [Mass/Vol] 195 mg/dL Normal [facility] Comment on above: Result Comment: [facility] [place] Glucose Reference Range is dependent on time and content of last meal. Glucose of more than 200 mg/dL in a nonstressed, ambulatory subject supports the diagnosis of Diabetes Mellitus. PERFORMED BY: [place] [address] PATHOLOGIST [employer] CUTTER FINISHER ALEX SALMERON M.D. Performed By: #### P TT, FIB-C, PT #### [address] Glucose [Mass/Vol] 171 mg/dL Normal [facility] Comment on above: Result Comment: [facility] [place] Glucose Reference Range is dependent on time and content of last meal. Glucose of more than 200 mg/dL in a nonstressed, ambulatory subject supports the diagnosis of Diabetes Mellitus. PERFORMED BY: [place] [address] PATHOLOGIST [employer] CUTTER FINISHER ALEX SALMERON M.D. Performed By: #### B MP, MG, CBC #### [address] Glucose [Mass/Vol] 154 mg/dL Normal [facility] Comment on above: Result Comment: [place] Glucose Reference Range is dependent on time and content of last meal. Glucose of more than 200 mg/dL in a nonstressed, ambulatory subject supports the diagnosis of Diabetes Mellitus. PERFORMED BY: [place] [address] PATHOLOGIST [employer]UT[employer] FINISHER ALEX SALMERON M.D. Performed By: #### B MP, MG, CBC #### [address] Glucose [Mass/Vol] 134 mg/dL Normal The [facility] Comment on above: Result Comment: [place] Glucose Reference Range is dependent on time and content of last meal. Glucose of more than 200 mg/dL in a nonstressed, ambulatory subject supports the diagnosis of Diabetes Mellitus. PERFORMED BY: [place] [address] PATHOLOGIST [employer]UT[employer] FINISHER ALEX SALMERON M.D. Performed By: #### B MP, MG, CBC #### [address] Magnesiumon 10-12-2024 Magnesium [Mass/Vol] 1.7 mg/dL Low 1.9-2.7 The [facility] Comment on above: Result Comment: PERF ORMED BY: [place] [address] PATHOLOGIST [employer] FINISHER ALEX SALMERON M.D. Performed By: #### G LULS #### Point of Care testing , Phosphate [Mass/volume] in S beto or PlasmaOrdered By: Loyda Carlos on 10-12-2024 Phosphate [Mass/Vol] Phosphate [Mass/vol ume] in Serum or Plasma 2.5-4.5 [facility] Phosphoruson 10-12-2024 Phosphate [Mass/Vol] 2.9 mg/dL Normal 2.5-4.5 The [facility] Comment on above: Performed By: #### G LULS #### Point of Care testing , Protein [Mass/volume] in Ser um or PlasmaOrdered By: Loyda Carlos on 10-12-2024 Protein [Mass/Vol] Protein [Mass/volume ] in Serum or Plasma Low 6.4-8.9 [facility] Serum or plasma albumin/glob ulin mass ratioOrdered By: Loyda Carlos on 10-12-2024 Albumin/Globulin [Mass ratio] Serum or plasma albumin/globulin mass ratio [facility] C reactive protein [Mass/vol ume] in Serum or PlasmaOrdered By: Loyda Carlos on 10-11-2024 CRP [Mass/Vol] C reactive protein [Mass/volume] in Serum or Plasma High 0.0-0.5 [facility] C-Reactive Proteinon 025 C-Reactive Protein 2.5 mg/dL High 0.0-0.5 The [facility] Comment on above: Result Comment: PERF ORMED BY: [place] [address] PATHOLOGIST [employer] C[employer] FINISHER ALEX SALMERON M.D. Performed By: #### B MP, MG, CBC #### [address] Cells analyzed [#]Ordered By : Loyda Carlos on 10-11-2024 Cells analyzed Molgen (Bld/Tiss) [#] Cells analyzed [#] . [facility] Cells counted [#]Ordered By: Loyda Carlos on 10-11-2024 Cells counted Molgen (Bld/Tiss) [#] Total cell count . [facility] Cells karyotyped.total [#] i n Blood or TissueOrdered By: Loyda Carlos on 10-11-2024 Cells karyotyped.total (Bld/Tiss) [#] Cells karyotyped.total [#] in Blood or Tissue . [facility] Chrom Leuk/Lymph Cells Cary zon 10-11-2024 Chrom Leuk/Lymph Cells Analyz 0 Normal . [facility] Comment on above: Performed By: #### P TT, FIB-C, PT #### [address] Chrom Leuk/Lymph Cells Count edon 10-11-2024 Chrom Leuk/Lymph Cells Counted 0 Normal . [facility] Comment on above: Performed By: #### P TT, FIB-C, PT #### [place] [address] [place] Chrom Leuk/Lymph Cells Karot ypon 10-11-2024 Chrom Leuk/Lymph Cells Karotyp 0 Normal . [facility] Comment on above: Performed By: #### P TT, FIB-C, PT #### [address] Chrom Leuk/Lymph Cytogen Res on 10-11-2024 Chrom Leuk/Lymph Cytogen Res Comment: Normal . [facility] Comment on above: Result Comment: NO M ITOTIC ACTIVITY Performed By: #### P TT, FIB-C, PT #### [address] Chrom Leuk/Lymph Dir Reviewo n 10-11-2024 Chrom Leuk/Lymph Dir Review Comment: Normal . [facility] Comment on above: Result Comment: Kyaw Marino, PhD, FACMG Performed at: [facility] [address] [facility] [place], [place] [id number] Customs Collector: Felisha Rivera [facility], Phone: [phone] PERFORMED BY: [place] [address] PATHOLOGIST [employer] CUTTER FINISHER ALEX SALMERON M.D. Performed By: #### P TT, FIB-C, PT #### [address] Chrom Leuk/Lymph GTG Band Re son 10-11-2024 Chrom Leuk/Lymph GTG Band Res N/A Normal . [facility] Comment on above: Performed By: #### P TT, FIB-C, PT #### [address] Chrom Leuk/Lymph Interpretat on 10-11-2024 Chrom Leuk/Lymph Interpretat Comment: Normal . [facility] Comment on above: Result Comment: NO R ESULT Cytogenetic analysis of GTG banded metaphases from unstimulated cultures revealed no mitotic activity. The sample submitted appeared to be blood. Generally, 5% blasts in the peripheral circulation are necessary to obtain cytogenetic results. Bone marrow is recommended for the analysis of disorders with blasts below that percentage. Interphase FISH analysis using indication specific targeted probes or a whole genome SNP microarray (test code 537439) may be considered. The [employer] Technology[employer]oid multi-gene genomic next generation sequencing panel (test code 998160) may also be considered. Testing can be performed on a residual sample, if available. Performed By: #### P TT, FIB-C, PT #### [address] Chromosome Leuk/Lymph Spec T yon 10-11-2024 Chromosome Leuk/Lymph Spec Ty Comment: Normal . [facility] Comment on above: Result Comment: KAELA Ambrocio Performed By: #### P TT, FIB-C, PT #### [address] Chromosome analysis result i n ISCN expressionOrdered By: Loyda Carlos on 10-11-2024 Chr analysis result in ISCN expression Molgen Nom (Bld/Tiss) Chromosome analysis result in ISCN expression . [facility] Comment on above: NO MITOTIC ACTIVITY Clinical tree scout [Stephanie ntifier] in SpecimenOrdered By: Loyda Carlos on 10-11-2024 Clinical tree scout Nom (Unsp spec) [ID] Clinical tree scout [Identifier] in Specimen . [facility] Comment on above: Jennie Marino, PhD, FACMGPerformed at: [id number] [facility], [place], [place] [id number] Director: Felisha Rivera [facility], Phone: [phone] Complete Blood Count Auto Di ffon 10-11-2024 Basophils (Bld) [#/Vol] 0.0 10*3/uL Normal 0.0-0.2 The [facility] Comment on above: Result Comment: PERF ORMED BY: [place] [address] PATHOLOGIST [employer] CUT[employer] FINISHER ALEX SALMERON M.D. Performed By: #### B MP, MG, CBC #### [address] Basophils/100 WBC (Bld) 0.8 % Normal . T nalini [facility] Comment on above: Performed By: #### B MP, MG, CBC #### [address] Eosinophils (Bld) [#/Vol] 0.0 10*3/uL Normal 0.0-0.45 The [facility] Comment on above: Performed By: #### B MP, MG, CBC #### [address] Eosinophils/100 WBC (Bld) 1.1 % Normal . [facility] Comment on above: Performed By: #### B MP, MG, CBC #### [address] Erythrocyte distribution width (RBC) [Ratio] 13.3 % Normal 12.0-14.8 [facility] Comment on above: Performed By: #### B MP, MG, CBC #### [address] Hematocrit (Bld) [Volume fraction] 33.2 % Low 38.8-50.0 The [facility] Comment on above: Performed By: #### B MP, MG, CBC #### [address] Hemoglobin (Bld) [Mass/Vol] 11.6 g/dL Low 13.0-17.0 [facility] Comment on above: Performed By: #### B MP, MG, CBC #### [address] Lymphocytes (Bld) [#/Vol] 0.6 10*3/uL Low 1.00-4.8 [facility] Comment on above: Performed By: #### B MP, MG, CBC #### [place] [address] [place] Lymphocytes/100 WBC (Bld) 22.0 % Normal . [facility] Comment on above: Performed By: #### B MP, MG, CBC #### [address] MCH (RBC) [Entitic mass] 33.7 pg Normal 27.5-35.2 [facility] Comment on above: Performed By: #### B MP, MG, CBC #### [address] MCV (RBC) [Entitic vol] 96.6 fL Normal 83.5-101 T [facility] Comment on above: Performed By: #### B MP, MG, CBC #### [address] Mean Corpuscular HGB Conc 34.9 g/dL Normal 32.5-35.6 [facility] Comment on above: Performed By: #### B MP, MG, CBC #### [address] Monocytes (Bld) [#/Vol] 0.3 10*3/uL Normal 0.0-0.8 [facility] Comment on above: Performed By: #### B MP, MG, CBC #### [address] Monocytes/100 WBC (Bld) 11.4 % Normal . T [facility] Comment on above: Performed By: #### B MP, MG, CBC #### [address] Neutrophils (Bld) [#/Vol] 1.8 10*3/uL Normal 1.8-7.7 The [facility] Comment on above: Performed By: #### B MP, MG, CBC #### [address] Neutrophils/100 WBC (Bld) 64.7 % Normal . [facility] Comment on above: Performed By: #### B MP, MG, CBC #### [address] NRBC% 0.1 /100{WBC} Normal 0-0.5 [facility] Comment on above: Performed By: #### B MP, MG, CBC #### [address] Platelet mean volume (Bld) [Entitic vol] 8.0 fL Normal 6.6-10.1 [facility] Comment on above: Performed By: #### B MP, MG, CBC #### [address] Platelets (Bld) [#/Vol] 73 10*3/uL Low 150-450 T he [facility] Comment on above: Performed By: #### B MP, MG, CBC #### [address] RBC (Bld) [#/Vol] 3.44 10*6/uL Low 3.90-5.60 [facility] Comment on above: Performed By: #### B MP, MG, CBC #### [address] WBC (Bld) [#/Vol] 2.8 10*3/uL Low 4.1-10.5 The [facility] Comment on above: Performed By: #### B MP, MG, CBC #### [address] Comprehensive Metabolic Pane cyndy 10-11-2024 Albumin [Mass/Vol] 3.0 g/dL Low 3.5-5.7 [facility] Comment on above: Performed By: #### B MP, MG, CBC #### [address] Albumin/Globulin [Mass ratio] 1.6 {ratio} Normal [facility] Comment on above: Performed By: #### B MP, MG, CBC #### [address] ALP [Catalytic activity/Vol] 48 U/L Normal 34-104 [facility] Comment on above: Performed By: #### B MP, MG, CBC #### [facility] [address] ALT [Catalytic activity/Vol] 29 U/L Normal 7-52 [facility] Comment on above: Performed By: #### B MP, MG, CBC #### [facility] [address] Anion gap [Moles/Vol] 6.7 mmol/L Normal 6.0-15.0 [facility] Comment on above: Performed By: #### B MP, MG, CBC #### [address] AST [Catalytic activity/Vol] 42 U/L High 13-39 [facility] Comment on above: Performed By: #### B MP, MG, CBC #### [address] Bilirubin [Mass/Vol] 0.3 mg/dL Normal 0.3-1.0 [facility] Comment on above: Performed By: #### B MP, MG, CBC #### [address] Calcium [Mass/Vol] 7.5 mg/dL Low 8.6-10.3 [facility] Comment on above: Performed By: #### B MP, MG, CBC #### [address] Chloride [Moles/Vol] 113 mmol/L High 98-107 [facility] Comment on above: Performed By: #### B MP, MG, CBC #### [facility] [address] [place] [address] [place] CO2 [Moles/Vol] 23.2 mmol/L Normal 21.0-31.0 [facility] Comment on above: Performed By: #### B MP, MG, CBC #### [facility] [address] [place] [address] Creatinine [Mass/Vol] 1.16 mg/dL Normal 0.70-1.30 [facility] Comment on above: Performed By: #### B MP, MG, CBC #### [address] Creatinine Clr Calc Pharmacy 57.83 Normal [facility] Comment on above: Performed By: #### B MP, MG, CBC #### [address] GFR/1.73 sq M.predicted MDRD (S/P/Bld) [Vol rate/Area] mL/min/{1.73_m2} Normal [facility] Comment on above: Performed By: #### B MP, MG, CBC #### [address] Globulin (S) [Mass/Vol] 1.9 g/dL Normal T he [facility] Comment on above: Performed By: #### B MP, MG, CBC #### [address] Glucose [Mass/Vol] 106 mg/dL High 70-100 [facility] Comment on above: Result Comment: [facility] [place] Glucose Reference Range is dependent on time and content of last meal. Glucose of more than 200 mg/dL in a nonstressed, ambulatory subject supports the diagnosis of Diabetes Mellitus. ADA recommended reference range Performed By: #### B MP, MG, CBC #### [address] Potassium [Moles/Vol] 3.9 mmol/L Normal 3.5-5.1 [facility] Comment on above: Performed By: #### B MP, MG, CBC #### [address] Protein [Mass/Vol] 4.9 g/dL Low 6.4-8.9 [facility] Comment on above: Performed By: #### B MP, MG, CBC #### [address] Sodium [Moles/Vol] 139 mmol/L Normal 136-145 [facility] Comment on above: Performed By: #### B MP, MG, CBC #### [address] Urea nitrogen [Mass/Vol] 12 mg/dL Normal 7-25 [facility] Comment on above: Performed By: #### B MP, MG, CBC #### [facility] [address] Copperon 10-11-2024 Copper 76 ug/dL Normal 69-132 [facility] Comment on above: Result Comment: This test was developed and its performance characteristics determined by [employer]. It has not been cleared or approved by the Food and Drug Administration. Detection Limit = 5 Performed at: [facility] [address] [place] [id number] Customs Collector: Yadira Gallegos MD, Phone: [phone] Performed By: #### P TT, FIB-C, PT #### [facility] [address] Copper measurementOrdered By : Angelo Iglesias on 10-11-2024 Basophil percentage Basophil percentage 69-132 [facility] Comment on above: This test was develo ped and its performance characteristicsdetermined by [facility]. It has not been cleared orapproved by the Food and Drug Administration. Detection Limit = 5Performed at: [place] [id number] Director: Yadira Gallegos MD, Phone: [phone] Diagnostic impression [Inter pretation] in Specimen NarrativeOrdered By: Loyda Carlos on 10-11-2024 Diagnostic impression [employer] Yovany (Unsp spec) [Interp] Diagnostic impression [Interpretation] in Specimen Narrative . [facility] Comment on above: NO RESULT Cytogeneti c analysis of GTG banded metaphases fromunstimulated cultures revealed no mitotic activity. Thesample submitted appeared to be blood. Generally, 5% blastsin the peripheral circulation are necessary to obtaincytogenetic results. Bone marrow is recommended for theanalysis of disorders with blasts below that percentage. Interphase FISH analysis using indication specifictargeted probes or a whole genome SNP microarray (test [id number]) may be considered. The [email or web address] multi-genegenomic next generation sequencing panel (test code [id number])may also be considered. Testing can be performed on aresidual sample, if available. Erythrocyte Sedimentation Ra stacey 10-11-2024 ESR (Bld) [Velocity] 14 mm/h Normal 0-19 [facility] Comment on above: Result Comment: PERF ORMED BY: [place] [address] PATHOLOGIST [employer] CUTTER FINISHER ALEX SALMERON M.D. Performed By: #### P TT, FIB-C, PT #### [facility] [address] [place] [address] Erythrocyte sedimentation ra te by Photometric methodOrdered By: Loyda Carlos on 10-11-2024 ESR Photometric method (Bld) [Velocity] Erythrocyte sedimentation rate by Photometric method 0-19 [facility] Ferritinon 10-11-2024 Ferritin [Mass/Vol] 131.0 ng/mL Normal 23.9-336.2 [facility] Comment on above: Order Comment: Comme nt add Performed By: #### P TT, FIB-C, PT #### [address] Ferritin [Mass/volume] in Se rum or PlasmaOrdered By: Loyda Carlos on 10-11-2024 Ferritin [Mass/Vol] Ferritin [Mass/volum e] in Serum or Plasma 23.9-336.2 [facility] Fibrinogenon 10-11-2024 Fibrinogen 353 mg/dL Normal 200-393 [facility] Comment on above: Result Comment: A he matocrit value greater than 55% may lead to inaccurate results in coagulation testing. Patients having hematocrit values >55% require a special collection tube for coagulation studies. Please contact the laboratory at [phone] for redraw instructions. PERFORMED BY: [place] [address] PATHOLOGIST [employer] CUTTER FINISHER ALEX SALMERON M.D. Performed By: #### P TT, FIB-C, PT #### [address] Fibrinogen [Mass/volume] in Platelet poor plasma by Coagulation assayOrdered By: Angelo Iglesias on 10-11-2024 Fibrinogen Coag (PPP) [Mass/Vol] Fibrinogen [Mass/volume] in Platelet poor plasma by Coagulation assay 200-393 [facility] Comment on above: A hematocrit value g reater than 55% may lead to inaccurate results in coagulation testing. Patients having hematocrit values >55% require a special collection tube for coagulation studies. Please contact the laboratory at [phone] for redraw instructions. Folate [Mass/volume] in Seru m or PlasmaOrdered By: Loyda Carlos on 10-11-2024 Folate [Mass/Vol] Folate [Mass/volume] in Serum or Plasma >5.9 [facility] Comment on above: Folate reference ran ge: >5.9 ng/mlThe WHO technical consultation on folate and vitamin [id number] has determined that folate concentrations lessthan 4 ng/ml are considered deficient. Glucose Poct Glucometerson 0 10-11-2024 Glucose [Mass/Vol] 200 mg/dL Normal [facility] Comment on above: Result Comment: [place] Glucose Reference Range is dependent on time and content of last meal. Glucose of more than 200 mg/dL in a nonstressed, ambulatory subject supports the diagnosis of Diabetes Mellitus. PERFORMED BY: [place] [phone] PATHOLOGIST [employer] C[employer] FINISHER ALEX SALMERON M.D. Performed By: #### P TT, FIB-C, PT #### [address] Commemt1 Glu2: Cleaned Meter Normal [facility] Comment on above: Result Comment: PERF ORMED BY: [place] [phone] PATHOLOGIST [employer] FINISHER ALEX SALMERON M.D. Performed By: #### G LULS #### Point of Care testing , Glucose [Mass/Vol] 134 mg/dL Normal [facility] Comment on above: Result Comment: [place] om Glucose Reference Range is dependent on time and content of last meal. Glucose of more than 200 mg/dL in a nonstressed, ambulatory subject supports the diagnosis of Diabetes Mellitus. Performed By: #### G LULS #### Point of Care testing , Glucose [Mass/Vol] 147 mg/dL Normal [facility] Comment on above: Result Comment: [facility] [place] Glucose Reference Range is dependent on time and content of last meal. Glucose of more than 200 mg/dL in a nonstressed, ambulatory subject supports the diagnosis of Diabetes Mellitus. PERFORMED BY: [place] [address] PATHOLOGIST [employer] CUT[employer] FINISHER ALEX SALMERON M.D. Performed By: #### G LULS #### Point of Care testing , HCV Antibody Cascadeon 10-11 Hepatitis C Virus Antibody Non-Reactive Normal Non Reactive [facility] Comment on above: Performed By: #### P TT, FIB-C, PT #### [facility] [address] [place] [address] Interpretation Hepatitis C Comment Normal . [facility] Comment on above: Result Comment: Not infected with HCV unless early or acute infection is suspected (which may be delayed in an immunocompromised individual), or other evidence exists to indicate HCV infection. Performed at: - [place] [id number] Customs Collector: Juan José Butler PhD, Phone: [phone] PERFORMED BY: [place] [address] PATHOLOGIST [employer] CUTTER FINISHER ALEX SALMERON M.D. Performed By: #### P TT, FIB-C, PT #### [facility] [address] [place] [address] HIV 1/O/2 Antigen/Antibodyon 10-11-2024 HIV Screen 4th Generation Non-Reactive Normal Non Reactive [facility] Comment on above: Result Comment: HIV- 1/HIV-2 antibodies and HIV-1 p24 antigen were NOT detected. There is no laboratory evidence of HIV infection. HIV Negative Performed at: [facility] [place] [id number] Customs Collector: Juan José Butler PhD, Phone: [phone] PERFORMED BY: [place] [address] PATHOLOGIST [employer] CUTTER FINISHER ALEX SALMERON M.D. Performed By: #### P TT, FIB-C, PT #### [facility] [address] [place] [address] HIV antibody and antigen woodson elOrdered By: Angelo Iglesias on 10-11-2024 HIV 1+2 Ab+HIV1 p24 Ag IA Ql HIV 1 and HIV-2 antibody assay with HIV-1 p24 antigen detection Non Reactive [facility] Comment on above: HIV-1/HIV-2 antibodi es and HIV-1 p24 antigen were NOTdetected. There is no laboratory evidence of HIV infection.HIV NegativePerformed at: [place] [address]Lab Director: Juan José Butler PhD, Phone: [phone] Hepatitis B Core Antibodyon 10-11-2024 Hepatitis B Core Antibody Negative Normal Negative [facility] Comment on above: Performed By: #### P TT, FIB-C, PT #### [address] Hepatitis B Core Antibody Ig Mon 10-11-2024 Hepatitis B Core Antibody IgM Negative Normal Negative [facility] Comment on above: Result Comment: Perf ormed at: [place] [address] Customs Collector: Juan José Butler PhD, Phone: [phone] Performed By: #### P TT, FIB-C, PT #### [address] Hepatitis B Surface Antibody on 10-11-2024 Hepatitis B Surface Antibody Non-Reactive Normal . [facility] Comment on above: Result Comment: Non Reactive: Not immune to HBV infection. Equivocal: Unable to determine if anti-HBs is present at levels consistent with immunity. Reactive: Anti-HBs concentration detected at greater than 10 mIU/mL. Individual is considered to be immune to infection with HBV. Performed By: #### P TT, FIB-C, PT #### [facility] [address] [place] [address] [place] Hepatitis B Surface Antigeno n 10-11-2024 HBsAg Screen Negative Normal Negative [facility] Comment on above: Result Comment: PERF ORMED BY: [place] [address] PATHOLOGIST [employer] FINISHER ALEX SALMERON M.D. Performed By: #### P TT, FIB-C, PT #### [address] Hepatitis B virus core IgM a ntibody assayOrdered By: Angelo Iglesias on 10-11-2024 Hepatitis B Core IgM Antibody Negative Negative [facility] Comment on above: Performed at: [facility] [employer] [place] [id number] Director: Juan José Butler PhD, Phone: [phone] Hepatitis B virus core antib roxanne assayOrdered By: angelina Iglesias on 10-11-2024 Hepatitis B Core Total Antibody Negative Negative [facility] Hepatitis C virus IgG Ab [Pr esence] in Serum or Plasma by ImmunoassayOrdered By: Angelo Iglesias on 10-11-2024 HCV IgG IA Ql Hepatitis C virus Ig G Ab [Presence] in Serum or Plasma by Immunoassay Non Reactive [facility] INR in Platelet poor plasma by Coagulation assayOrdered By: Angelo Iglesias on 10-11-2024 INR Coag (PPP) [Relative time] INR in Platelet poor plasma by Coagulation assay [facility] Comment on above: INR Therapeutic Rang e A) Pre- and Peroperative OAT started two weeks before surgery. NOT HIP SURGERY: 1.5 - 2.5 HIP SURGERY: 2 - 3B) Primary and secondary prevention of venous THROMBOSIS: 2 - 3C) Active venous thrombosis, pulmonary embolismand prevention of recurrent venous thrombosis: 2 - 3D) Prevention of arterial thromboembolismincluding patients with mechanical heart valves: 3 - 4.5 ISCN band level [#] Qualitat iveOrdered By: Loyda Carlos on 10-11-2024 ISCN band level Molgen Ql (Bld/Tiss) ISCN band level [#] Qualitative . [facility] Iron [Mass/volume] in Serum or PlasmaOrdered By: Loyda Carlos on 10-11-2024 Iron [Mass/Vol] Iron [Mass/volume] i n Serum or Plasma 50-212 [facility] Iron and TIBC Profileon % Iron Saturation 44.2 % Normal 20-50 [facility] Comment on above: Order Comment: Comme nt add Performed By: #### P TT, FIB-C, PT #### [facility] [address] [place] [id number] [facility] Iron [Mass/Vol] 118 ug/dL Normal 50-212 [facility] Comment on above: Order Comment: Comme nt add Performed By: #### P TT, FIB-C, PT #### [facility] [address] [place] [id number] [facility] Total Iron Binding Capacity 267 ug/dL Normal 255-450 [facility] Comment on above: Order Comment: Comme nt add Performed By: #### P TT, FIB-C, PT #### [facility] [address] [place] [address] [facility] Transferrin [Mass/Vol] 191 mg/dL Low 203-362 [facility] Comment on above: Order Comment: Comme nt add Performed By: #### P TT, FIB-C, PT #### [facility] [address] Karyotype identification (no marty result)Ordered By: Loyda Carlos on 10-11-2024 Karyotype Nom (Unsp spec) Karyotype identification nominal [facility] LDH Lactate Dehydrogenaseon 10-11-2024 LDH Lactate Dehydrogenase 199 U/L Normal 140-271 [facility] Comment on above: Order Comment: Comme nt add Performed By: #### P TT, FIB-C, PT #### [facility] [address] [place] [id number] [place] Lactate dehydrogenase [Enzym atic activity/volume] in Serum or Plasma by Lactate to pyOrdered By: Loyda Carlos on 10-11-2024 LDH Lactate to pyruvate reaction [Catalytic activity/Vol] Lactate dehydrogenase [Enzymatic activity/volume] in Serum or Plasma by Lactate to py 140-271 [facility] Magnesiumon 10-11-2024 Magnesium [Mass/Vol] 1.7 mg/dL Low 1.9-2.7 [facility] Comment on above: Result Comment: PERF ORMED BY: [address] [place] [address] PATHOLOGIST [employer] C[employer] FINISHER ALEX SALMERON M.D. Performed By: #### B MP, MG, CBC #### [facility] [address] [place] [address] No Panel InformationOrdered By: Angelo Iglesias on 10-11-2024 Hepatitis C Interpretation Comment . [facility] Comment on above: Not infected with HC V unless early or acute infection issuspected (which may be delayed in an immunocompromisedindividual), or other evidence exists to indicate HCVinfection.Performed at: [facility] [id number] Director: Juan José Butler PhD, Phone: [phone] Partial Thromboplastin Timeo n 10-11-2024 aPTT Coag (Bld) [Time] 27.9 s Normal 25.1-36.5 [facility] Comment on above: Result Comment: A he matocrit value greater than 55% may lead to inaccurate results in coagulation testing. Patients having hematocrit values >55% require a special collection tube for coagulation studies. Please contact the laboratory at [phone] for redraw instructions. Performed By: #### P TT, FIB-C, PT #### [address] Prothrombin Time INRon 10-11 INR Coag (PPP) [Relative time] 0.9 {INR} Normal [facility] Comment on above: Result Comment: INR Therapeutic Range A) Pre- and Peroperative OAT started two weeks before surgery. NOT HIP SURGERY: 1.5 - 2.5 HIP SURGERY: 2 - 3 B) Primary and secondary prevention of venous THROMBOSIS: 2 - 3 C) Active venous thrombosis, pulmonary embolism and prevention of recurrent venous thrombosis: 2 - 3 D) Prevention of arterial thromboembolism including patients with mechanical heart valves: 3 - 4.5 Performed By: #### P TT, FIB-C, PT #### [facility] [address] [place] [address] PT Coag (PPP) [Time] 9.9 s Normal 9.0-12.9 [facility] Comment on above: Result Comment: A he matocrit value greater than 55% may lead to inaccurate results in coagulation testing. Patients having hematocrit values >55% require a special collection tube for coagulation studies. Please contact the laboratory at [phone] for redraw instructions. Performed By: #### P TT, FIB-C, PT #### [facility] [address] [place] [id number] [facility] Prothrombin time (PT)Ordered By: Angelo Iglesias on 10-11-2024 PT Coag (PPP) [Time] Prothrombin time (PT) 9.0- 12.9 [facility] Comment on above: A hematocrit value g reater than 55% may lead to inaccurate results in coagulation testing. Patients having hematocrit values >55% require a special collection tube for coagulation studies. Please contact the laboratory at [phone] for redraw instructions. Reticulocyte Counton 025 Reticulocyte Number 0.035 10*6/uL Normal 0.024-0 .08 4 [facility] Comment on above: Performed By: #### P TT, FIB-C, PT #### [facility] [address] Reticulocyte Percent 0.9 % Normal 0.5-1.5 [facility] Comment on above: Performed By: #### P TT, FIB-C, PT #### [facility] [address] [place] [id number] [facility] Reticulocytes [#/volume] in BloodOrdered By: Loyda Carlos on 10-11-2024 Reticulocytes (Bld) [#/Vol] Absolute reticulocyte count 0.024-0.08 4 [facility] Reticulocytes/100 RBC Auto ( Bld)Ordered By: Loyda Carlos on 10-11-2024 Reticulocytes/100 RBC (Bld) Reticulocyte % auto 0.5-1.5 [facility] Serum hepatitis B virus surf linda antibody detectionOrdered By: Angelo Iglesias on 10-11-2024 HBV surface Ab Ql (S) Hepatitis B virus surface Ab [Presence] in Serum . [facility] Comment on above: Non Reactive: Not im mune to HBV infection. Equivocal: Unable to determine if anti-HBs is present at levels consistent with immunity. Reactive: Anti-HBs concentration detected at greater than 10 mIU/mL. Individual is considered to be immune to infection with HBV. Serum or plasma hepatitis B virus surface antigen detection by immunoassayOrdered By: Angelo Iglesias on 10-11-2024 HBV surface Ag IA Ql Hepatitis B virus s urface Ag [Presence] in Serum or Plasma by Immunoassay Negative [facility] Serum or plasma iron binding capacity measurement (mass/volume)Ordered By: Loyda Carlos on 10-11-2024 Iron binding capacity [Mass/Vol] Iron binding capacity [Mass/volume] in Serum or Plasma 255-450 [facility] Serum or plasma iron saturat ion measurement (mass fraction)Ordered By: Loyda Carlos on 10-11-2024 Iron saturation [Mass fraction] Iron saturation [Mass Fraction] in Serum or Plasma 20-50 [facility] Specimen source identifiedOr dered By: Loyda Carlos on 10-11-2024 Specimen source Nom (Unsp spec) Specimen source identified . [facility] Comment on above: BLOOD Thyroid Stimulating Hormoneo n 10-11-2024 TSH Qn 1.83 m[IU]/L Normal 0.45-5.33 [facility] Comment on above: Order Comment: Comme nt add Result Comment: PERF ORMED BY: [place] [address] PATHOLOGIST [employer] C[employer] FINISHER ALEX SALMERON M.D. Performed By: #### P TT, FIB-C, PT #### [address] Thyrotropin [Units/volume] i n Serum or PlasmaOrdered By: Loyda Carlos on 10-11-2024 TSH Qn Thyrotropin [Units/v olume] in Serum or Plasma 0.45-5.33 [facility] Transferrin [Mass/volume] in Serum or PlasmaOrdered By: Loyda Carlos on 10-11-2024 Transferrin [Mass/Vol] Transferrin [Mass /volume] in Serum or Plasma Low 203-362 [facility] Vit. B12/Folate Profileon Cobalamin (Vitamin B12) [Mass/Vol] 542 pg/mL Normal 180-914 [facility] Comment on above: Order Comment: Comme nt add Performed By: #### P TT, FIB-C, PT #### [facility] [address] Folate 19.0 ng/mL Normal >5.9 [facility] Comment on above: Order Comment: Comme nt add Result Comment: [place] te reference range: >5.9 ng/ml The WHO technical consultation on folate and vitamin b12 deficiencies has determined that folate concentrations less than 4 ng/ml are considered deficient. Performed By: #### P TT, FIB-C, PT #### [facility] [address] Vitamin B12 ser/plasOrdered By: Loyda Carlos on 10-11-2024 Cobalamin (Vitamin B12) [Mass/Vol] Vitamin B12 ser/plas 180-914 [facility] aPTT in Platelet poor plasma by Coagulation assayOrdered By: Angelo Iglesias on 10-11-2024 aPTT Coag (PPP) [Time] Activated partial thromboplastin time (aPTT) in platelet poor plasma by coagulation a 25.1-36.5 [facility] Comment on above: A hematocrit value g reater than 55% may lead to inaccurate results in coagulation testing. Patients having hematocrit values >55% require a special collection tube for coagulation studies. Please contact the laboratory at [phone] for redraw instructions. Anisocytosis LM Ql (Bld)Orde red By: Loyda Carlos on 10-10-2024 Anisocytosis Ql (Bld) Anisocytosis [Pres ence] in Blood by Light microscopy [facility] Campy coli+jejuni BD MaxOrde red By: Lakesha Haskins on 10-10-2024 C. coli+jejuni tuf gene ABE+probe Ql (Stl) Campy coli+jejuni BD Max Negative [facility] Comment on above: Campylobacter test i ncludes C. jejuni and C. coli. Chloride [Moles/volume] in S toolOrdered By: Loyda Carlos on 10-10-2024 Chloride (Stl) [Moles/Vol] Chloride [Moles/volume] in Stool . [facility] Comment on above: INTERPRETIVE INFORMA TION: Fecal ChlorideA reference interval has not been established for fecal specimens.This test was developed and its performance characteristicsdetermined by [facility]. It has not been cleared orapproved by the [place] Food and Drug Administration. This test wasperformed in a CLIA certified laboratory and is intended forclinical purposes.Performed at: [facility] [address] [id number] Director: [facility], Phone: [phone] [facility] Metabolic Pane cyndy 10-10-2024 Albumin [Mass/Vol] 2.9 g/dL Low 3.5-5.7 [facility] Comment on above: Performed By: #### G LULS #### Point of Care testing , Albumin/Globulin [Mass ratio] 1.5 {ratio} Normal [facility] Comment on above: Performed By: #### G LULS #### Point of Care testing , ALP [Catalytic activity/Vol] 48 U/L Normal 34-104 [facility] Comment on above: Performed By: #### G LULS #### Point of Care testing , ALT [Catalytic activity/Vol] 26 U/L Normal 7-52 [facility] Comment on above: Performed By: #### G LULS #### Point of Care testing , Anion gap [Moles/Vol] 7.2 mmol/L Normal 6.0-15.0 [facility] Comment on above: Performed By: #### G LULS #### Point of Care testing , AST [Catalytic activity/Vol] 52 U/L High 13-39 [facility] Comment on above: Performed By: #### G LULS #### Point of Care testing , Bilirubin [Mass/Vol] 0.2 mg/dL Low 0.3-1.0 [facility] Comment on above: Performed By: #### G LULS #### Point of Care testing , Calcium [Mass/Vol] 7.4 mg/dL Low 8.6-10.3 [facility] Comment on above: Performed By: #### G LULS #### Point of Care testing , Chloride [Moles/Vol] 115 mmol/L High 98-107 [facility] Comment on above: Performed By: #### G LULS #### Point of Care testing , CO2 [Moles/Vol] 19.4 mmol/L Low 21.0-31.0 [facility] Comment on above: Performed By: #### G LULS #### Point of Care testing , Creatinine [Mass/Vol] 1.33 mg/dL Significan t change up 0.70-1.30 [facility] Comment on above: Performed By: #### G LULS #### Point of Care testing , Creatinine Clr Calc Pharmacy 50.57 Normal [facility] Comment on above: Performed By: #### G LULS #### Point of Care testing , Estimated GFR 52.056 mL/Min Normal [facility] Comment on above: Performed By: #### G LULS #### Point of Care testing , Globulin (S) [Mass/Vol] 1.9 g/dL Normal T [facility] Comment on above: Performed By: #### G LULS #### Point of Care testing , Glucose [Mass/Vol] 105 mg/dL High 70-100 [facility] Comment on above: Result Comment: [place] Glucose Reference Range is dependent on time and content of last meal. Glucose of more than 200 mg/dL in a nonstressed, ambulatory subject supports the diagnosis of Diabetes Mellitus. ADA recommended reference range Performed By: #### G LULS #### Point of Care testing , Potassium [Moles/Vol] 3.6 mmol/L Normal 3.5-5.1 [facility] Comment on above: Performed By: #### G LULS #### Point of Care testing , Protein [Mass/Vol] 4.8 g/dL Low 6.4-8.9 [facility] Comment on above: Performed By: #### G LULS #### Point of Care testing , Sodium [Moles/Vol] 138 mmol/L Normal 136-145 [facility] Comment on above: Performed By: #### G LULS #### Point of Care testing , Urea nitrogen [Mass/Vol] 21 mg/dL Normal 7-25 [facility] Comment on above: Performed By: #### G LULS #### Point of Care testing , Cryptosporidium Antigen Stoo cyndy 10-10-2024 Cryptosporidium Antigen Stool Negative Normal Negative [facility] Comment on above: Order Comment: SOURC E OF SPECIMEN: Stool Result Comment: Perf ormed at: - [facility] [place] [id number] [place] [address] Customs Collector: Juan José Butler PhD, Phone: [phone] Performed By: #### B MP, MG, CBC #### [address] Cryptosporidium parv+homin B D MaxOrdered By: Loyda Carlos on 10-10-2024 C. parvum+hominis DNA ABE+probe Ql (Stl) Cryptosporidium parv+homin BD Max Negative [facility] Comment on above: Cryptosporidium test includes C. hominis and C. parvum. Cryptosporidium sp Ag [Prese nce] in Stool by ImmunoassayOrdered By: Loyda Carlos on 10-10-2024 Cryptosporidium sp Ag IA Ql (Stl) Cryptosporidium sp Ag [Presence] in Stool by Immunoassay Negative [facility] Comment on above: Performed at: - [facility] [address] [id number] Director: Juan José Butler PhD, Phone: [phone] Entamoeba histolytica BD Max Ordered By: Loyda Carlos on 10-10-2024 E. histolytica DNA ABE+probe Ql (Stl) Entamoeba histolytica BD Max Negative [facility] Comment on above: Testing performed by RT-PCR Erythrocyte morphology findi ng [Identifier] in BloodOrdered By: Loyda Carlos on 10-10-2024 RBC morphology finding Nom (Bld) RBC morphology [facility] Giardia Lamblia Ag EIA Stool on 10-10-2024 Giardia Lamblia Ag EIA Stool Negative Normal Negative [facility] Comment on above: Order Comment: SOURC E OF SPECIMEN: Stool Result Comment: Perf ormed at: - [facility] [address] [id number] Customs Collector: Juan José Butler PhD, Phone: [phone] PERFORMED BY: [place] [address] PATHOLOGIST [employer] CUTTER FINISHER ALEX SALMERON M.D. Performed By: #### B MP, MG, CBC #### [address] Giardia milian BD MaxOrdered By : Loyda Carlos on 10-10-2024 G. lamblia DNA ABE+probe Ql (Stl) Giardia milian BD Max Negative [facility] Giardia lamblia Ag [Presence ] in Stool by ImmunoassayOrdered By: Loyda Carlos on 10-10-2024 G. lamblia Ag IA Ql (Stl) Giardia lamblia Ag [Presence] in Stool by Immunoassay Negative [facility] Comment on above: Performed at: CB - [facility] [place] [address]Lab Director: Juan José Butler PhD, Phone: [phone] Glucose Poct Glucometerson 0 10-10-2024 Glucose [Mass/Vol] 134 mg/dL Normal [facility] Comment on above: Result Comment: [place] Glucose Reference Range is dependent on time and content of last meal. Glucose of more than 200 mg/dL in a nonstressed, ambulatory subject supports the diagnosis of Diabetes Mellitus. PERFORMED BY: [place] [address] PATHOLOGIST [employer] CUTTER FINISHER ALEX SALMERON M.D. Performed By: #### G LULS #### Point of Care testing , Commemt1 Glu2: Cleaned Meter Normal [facility] Comment on above: Result Comment: PERF ORMED BY: [place] [address] PATHOLOGIST [employer] CUTTER FINISHER ALEX SALMERON M.D. Performed By: #### G LULS #### Point of Care testing , Glucose [Mass/Vol] 138 mg/dL Normal [facility] Comment on above: Result Comment: [place] om Glucose Reference Range is dependent on time and content of last meal. Glucose of more than 200 mg/dL in a nonstressed, ambulatory subject supports the diagnosis of Diabetes Mellitus. Performed By: #### G LULS #### Point of Care testing , Commemt1 Glu2: Cleaned Meter Normal [facility] Comment on above: Result Comment: PERF ORMED BY: [address] [address] PATHOLOGIST [employer] CUTTER FINISHER ALEX SALMERON M.D. Performed By: #### G LULS #### Point of Care testing , Glucose [Mass/Vol] 146 mg/dL Normal [facility] Comment on above: Result Comment: [place] om Glucose Reference Range is dependent on time and content of last meal. Glucose of more than 200 mg/dL in a nonstressed, ambulatory subject supports the diagnosis of Diabetes Mellitus. Performed By: #### G LULS #### Point of Care testing , Glucose [Mass/Vol] 99 mg/dL Normal [facility] Comment on above: Result Comment: [place] om Glucose Reference Range is dependent on time and content of last meal. Glucose of more than 200 mg/dL in a nonstressed, ambulatory subject supports the diagnosis of Diabetes Mellitus. PERFORMED BY: [address] [address] PATHOLOGIST [employer] CUTTER FINISHER ALEX SALMERON M.D. Performed By: #### G LULS #### Point of Care testing , Iron and TIBC Profileon % Iron Saturation 14.1 % Low 20-50 [facility] Comment on above: Performed By: #### G LULS #### Point of Care testing , Iron [Mass/Vol] 29 ug/dL Low 50-212 [facility] Comment on above: Performed By: #### G LULS #### Point of Care testing , Total Iron Binding Capacity 206 ug/dL Low 255-450 [facility] Comment on above: Performed By: #### G LULS #### Point of Care testing , Transferrin [Mass/Vol] 147 mg/dL Low 203-362 [facility] Comment on above: Performed By: #### G LULS #### Point of Care testing , Magnesiumon 10-10-2024 Magnesium [Mass/Vol] 1.8 mg/dL Low 1.9-2.7 [facility] Comment on above: Result Comment: PERF ORMED BY: [place] [address] PATHOLOGIST [employer] CUTTER FINISHER ALEX SALMERON M.D. Performed By: #### G LULS #### Point of Care testing , Ova and Parasite Panelon Cryptosporidium (C.hominis+par Negative Normal Negative [facility] Comment on above: Result Comment: Cryp tosporidium test includes C. hominis and C. parvum. Performed By: #### B MP, MG, CBC #### [address] Entamoeba histolytica Negative Normal Negative [facility] Comment on above: Result Comment: Test ing performed by RT-PCR PERFORMED BY: [place] [address] PATHOLOGIST [employer] CUTTER FINISHER ALEX SALMERON M.D. Performed By: #### B MP, MG, CBC #### [facility] [address] [place] [address] Giardia lamblia Negative Normal Negative [facility] Comment on above: Performed By: #### B MP, MG, CBC #### [facility] [address] [place] [address] Ovalocytes [Presence] in Blo od by Light microscopyOrdered By: Loyda Carlos on 10-10-2024 Ovalocytes LM Ql (Bld) Ovalocyte detection [facility] Phosphoruson 10-10-2024 Phosphate [Mass/Vol] 2.4 mg/dL Low 2.5-4.5 [facility] Comment on above: Performed By: #### G LULS #### Point of Care testing , Platelet adequacy [Presence] in Blood by Light microscopyOrdered By: Loyda Carlos on 10-10-2024 Platelets LM Ql (Bld) Platelet adequacy [Presence] in Blood by Light microscopy Normal [facility] Platelet morphology finding [Identifier] in BloodOrdered By: Loyda Carlos on 10-10-2024 Platelet morphology finding Nom (Bld) Platelet morphology finding [Identifier] in Blood Normal [facility] Poikilocytosis [Presence] in Blood by Light microscopyOrdered By: Loyda Carlos on 10-10-2024 Poikilocytosis LM Ql (Bld) Poikilocytosis [Presence] in Blood by Light microscopy [facility] Potassium [Moles/volume] in StoolOrdered By: Loyda Carlos on 10-10-2024 Potassium (Stl) [Moles/Vol] Potassium [Moles/volume] in Stool . [facility] Comment on above: INTERPRETIVE INFORMA TION: Fecal PotassiumA reference interval has not been established for fecal specimens.This test was developed and its performance characteristicsdetermined by [facility]. It has not been cleared orapproved by the [place] Food and Drug Administration. This test wasperformed in a CLIA certified laboratory and is intended forclinical purposes. Salmonellosis BD MaxOrdered By: Lakesha Haskins on 10-10-2024 Salmonella sp spaO gene ABE+probe Ql (Stl) Salmonella sp spaO gene [Presence] in Stool by ABE with probe detection Negative [facility] Comment on above: Testing performed by RT-PCR Scan and CBCon 10-10-2024 Anisocytosis Ql (Bld) Slight Normal [facility] Comment on above: Performed By: #### G LULS #### Point of Care testing , Basophils (Bld) [#/Vol] 0.0 10*3/uL Normal 0.0-0.2 [facility] Comment on above: Performed By: #### G LULS #### Point of Care testing , Basophils/100 WBC (Bld) 0.6 % Normal . T [facility] Comment on above: Performed By: #### G LULS #### Point of Care testing , Eosinophils (Bld) [#/Vol] 0.0 10*3/uL Normal 0.0-0.45 [facility] Comment on above: Performed By: #### G LULS #### Point of Care testing , Eosinophils/100 WBC (Bld) 0.5 % Normal . [facility] Comment on above: Performed By: #### G LULS #### Point of Care testing , Erythrocyte distribution width (RBC) [Ratio] 13.7 % Normal 12.0-14.8 [facility] Comment on above: Performed By: #### G LULS #### Point of Care testing , Hematocrit (Bld) [Volume fraction] 32.9 % Low 38.8-50.0 [facility] Comment on above: Performed By: #### G LULS #### Point of Care testing , Hemoglobin (Bld) [Mass/Vol] 11.4 g/dL Low 13.0-17.0 [facility] Comment on above: Performed By: #### G LULS #### Point of Care testing , Lymphocytes (Bld) [#/Vol] 0.5 10*3/uL Low 1.00-4.8 [facility] Comment on above: Performed By: #### G LULS #### Point of Care testing , Lymphocytes/100 WBC (Bld) 11.5 % Normal . [facility] Comment on above: Performed By: #### G LULS #### Point of Care testing , MCH (RBC) [Entitic mass] 34.0 pg Normal 27.5-35.2 [facility] Comment on above: Performed By: #### G LULS #### Point of Care testing , MCV (RBC) [Entitic vol] 97.8 fL Normal 83.5-101 [facility] Comment on above: Performed By: #### G LULS #### Point of Care testing , Mean Corpuscular HGB Conc 34.8 g/dL Normal 32.5-35.6 [facility] Comment on above: Performed By: #### G LULS #### Point of Care testing , Monocytes (Bld) [#/Vol] 0.8 10*3/uL Normal 0.0-0.8 [facility] Comment on above: Performed By: #### G LULS #### Point of Care testing , Monocytes/100 WBC (Bld) 18.2 % Normal . [facility] Comment on above: Performed By: #### G LULS #### Point of Care testing , Neutrophils (Bld) [#/Vol] 3.2 10*3/uL Normal 1.8-7.7 [facility] Comment on above: Performed By: #### G LULS #### Point of Care testing , Neutrophils/100 WBC (Bld) 69.2 % Normal . [facility] Comment on above: Performed By: #### G LULS #### Point of Care testing , NRBC% 0.1 /100{WBC} Normal 0-0.5 [facility] Comment on above: Performed By: #### G LULS #### Point of Care testing , Ovalocytes Slight Normal [facility] Comment on above: Performed By: #### G LULS #### Point of Care testing , Platelet Estimate Decreased Normal Normal [facility] Comment on above: Performed By: #### G LULS #### Point of Care testing , Platelet mean volume (Bld) [Entitic vol] 8.3 fL Normal 6.6-10.1 [facility] Comment on above: Performed By: #### G LULS #### Point of Care testing , Platelet Morphology Normal Normal Normal [facility] Comment on above: Result Comment: PERF ORMED BY: [place] [address] [place] [address] PATHOLOGIST [employer] CUTTER FINISHER ALEX SALMERON M.D. Performed By: #### G LULS #### Point of Care testing , Platelets (Bld) [#/Vol] 71 10*3/uL Signific ant change down 150-450 [facility] Comment on above: Performed By: #### G LULS #### Point of Care testing , Poikilocytosis Slight Normal [facility] Comment on above: Performed By: #### G LULS #### Point of Care testing , RBC (Bld) [#/Vol] 3.37 10*6/uL Low 3.90-5.60 [facility] Comment on above: Performed By: #### G LULS #### Point of Care testing , Toxic Vacuolation Slight Normal [facility] Comment on above: Performed By: #### G LULS #### Point of Care testing , WBC (Bld) [#/Vol] 4.6 10*3/uL Normal 4.1-10.5 [facility] Comment on above: Performed By: #### G LULS #### Point of Care testing , Shigella Tox 1+2 BD MaxOrder ed By: Lakesha Haskins on 10-10-2024 E. coli stx1+stx2 genes ABE+probe Ql (Stl) Escherichia coli Stx1 and Stx2 toxin stx1+stx2 genes [Presence] in Stool by ABE with Negative [facility] Shigellosis BD MaxOrdered By : Lakesha Haskins on 10-10-2024 Shigella species+EIEC invasion plasmid antigen H ipaH gene ABE+probe Ql (Stl) Shigella species+EIEC invasion plasmid antigen H ipaH gene [Presence] in Stool by ABE Negative [facility] Comment on above: Shigella sp. test in cludes Shigella species and Enteroinvasive E. coli (EIEC). Sodium [Moles/volume] in Sto olOrdered By: Loyda Carlos on 10-10-2024 Sodium (Stl) [Moles/Vol] Sodium [Moles/volume] in Stool . [facility] Comment on above: INTERPRETIVE INFORMA TION: Fecal SodiumA reference interval has not been established for fecal specimens.This test was developed and its performance characteristicsdetermined by [facility]. It has not been cleared orapproved by the [place] Food and Drug Administration. This test wasperformed in a CLIA certified laboratory and is intended forclinical purposes. Stool Bacterial Panelon Campylobacter Negative Normal Negative [facility] Comment on above: Result Comment: Camp ylobacter test includes C. jejuni and C. coli. Performed By: #### P TT, FIB-C, PT #### [facility] [address] Salmonella Species Negative Normal Negative [facility] Comment on above: Result Comment: Test ing performed by RT-PCR PERFORMED BY: [place] [address] PATHOLOGIST [employer] CUT[employer] FINISHER ALEX SALMERON M.D. Performed By: #### P TT, FIB-C, PT #### [address] Shiga Toxin (E coli O157+oth) Negative Normal Negative [facility] Comment on above: Performed By: #### P TT, FIB-C, PT #### [address] Shigella Species Negative Normal Negative [facility] Comment on above: Result Comment: Shig julien sp. test includes Shigella species and Enteroinvasive E. coli (EIEC). Performed By: #### P TT, FIB-C, PT #### [address] Stool Electrolyteson 025 Sodium Stool <20 Normal . [facility] Comment on above: Result Comment: INTE RPRETIVE INFORMATION: Fecal Sodium A reference interval has not been established for fecal specimens. This test was developed and its performance characteristics determined by [facility]. It has not been cleared or approved by the [place] Food and Drug Administration. This test was performed in a CLIA certified laboratory and is intended for clinical purposes. Performed By: #### B MP, MG, CBC #### [address] Stool Chloride <20 Normal . [facility] Comment on above: Result Comment: INTE RPRETIVE INFORMATION: Fecal Chloride A reference interval has not been established for fecal specimens. This test was developed and its performance characteristics determined by [facility]. It has not been cleared or approved by the [place] Food and Drug Administration. This test was performed in a CLIA certified laboratory and is intended for clinical purposes. Performed at: [facility] [address] [id number] Customs Collector: Chang House [facility], Phone: [phone] Performed By: #### B MP, MG, CBC #### [address] Stool Potassium 47 mmol/L Normal . [facility] Comment on above: Result Comment: INTE RPRETIVE INFORMATION: Fecal Potassium A reference interval has not been established for fecal specimens. This test was developed and its performance characteristics determined by [facility]. It has not been cleared or approved by the [place] Food and Drug Administration. This test was performed in a CLIA certified laboratory and is intended for clinical purposes. PERFORMED BY: [place] [address] PATHOLOGIST [employer] CUTTER FINISHER ALEX SALMERON M.D. Performed By: #### B MP, MG, CBC #### [place] [id number] [facility] Thyroid Stimulating Hormoneo n 10-10-2024 TSH Qn 1.35 m[IU]/L Normal 0.45-5.33 [facility] Comment on above: Result Comment: PERF ORMED BY: [place] [address] PATHOLOGIST [employer] FINISHER ALEX SALMERON M.D. Performed By: #### G LULS #### Point of Care testing , Toxic leukocyte vacuolation detectionOrdered By: Loyda Carlos on 10-10-2024 Leukocyte toxic vacuoles LM Ql (Bld) Toxic leukocyte vacuolation detection [facility] Vit. B12/Folate Profileon Cobalamin (Vitamin B12) [Mass/Vol] 472 pg/mL Normal 180-914 [facility] Comment on above: Performed By: #### G LULS #### Point of Care testing , Folate 13.7 ng/mL Normal >5.9 [facility] Comment on above: Result Comment: Kalli te reference range: >5.9 ng/ml The WHO technical consultation on folate and vitamin b12 deficiencies has determined that folate concentrations less than 4 ng/ml are considered deficient. Performed By: #### G LULS #### Point of Care testing , A1C with Estimated Average G luon 10-09-2024 Glucose [Mass/Vol] 160 mg/dL Normal [facility] Comment on above: Result Comment: PERF ORMED BY: [address] [place] [address] PATHOLOGIST [employer] C[employer] FINISHER ALEX SALMERON M.D. Performed By: #### G LULS #### Point of Care testing , HbA1c (Bld) [Mass fraction] 7.2 % High 4.3-5.6 [facility] Comment on above: Result Comment: Incr eased risk for diabetes: 5.7 - 6.4 diabetes: >6.4 glycemic control for adults with diabetes: <7.0 Performed By: #### G LULS #### Point of Care testing , Blood estimated average gluc ose determination by estimation from glycated hemoglobinOrdered By: Lakesha Haskins on 10-09-2024 Average glucose Estimated from glycated hemoglobin (Bld) [Mass/Vol] Glucose mean value [Mass/volume] in Blood Estimated from glycated hemoglobin [facility] CT abdomen pelvis wo conon 0 10-09-2024 CT abdomen pelvis wo con [facility] [address] [place] [id number] CT Scan Report Signed Patient: Jose L Ames MR#: [id number] : 1940 Acct:[id number] Age/Sex: 84 / M ADM Date: 10/09/24 Loc: Room: [address] [place] [address] Type: ADM IN Attending Dr: Loyda Carlos MD Copies to: Loyda Carlos MD Ordering Provider: Loyda Carlos MD Date of Service: 10/09/24 CT/CT abdomen pelvis wo con: rule out colitis vs progression of SBO CT Abdomen and Pelvis withoutcontrast TECHNIQUE: Axial imaging with 2-D reconstruction. . The CT exam was performed using one or more the following dose reduction techniques: Automated exposure control, adjustment of the MA and/or Kv according to patient size, or use of the iterative reconstruction technique. COMPARISON: 10/08/2024 History: Assessment for progression of colitis versus small bowel obstruction. Back pain. LIMITATIONS: None LOWER THORAX basilar atelectasis/scarring. LIVER: Hepatic steatosis. GALLBLADDER: Cholelithiasis identified. BILE DUCTS: No dilatation SPLEEN: Numerous punctate calcifications consistent with remote granulomatous changes. PANCREAS: Unremarkable ADRENAL GLANDS: Similar adenomatous changes of the adrenal glands. KIDNEYS: nonspecific perinephric stranding. No nephrolithiasis or obstructive uropathy. AORTA: Similar infrarenal abdominal aortic aneurysm measuring 3.8 cm. Extensive atherosclerosis throughout the abdomen and pelvis. RETROPERITONEUM: No significant retroperitoneal abnormalities identified. MESENTERY:Unremarkable SMALL BOWEL: Similar mild distention of fluid-filled small bowel loops without transition point. APPENDIX: The appendix is not seen. No pericecal inflammatory changes identified. COLON: Distal partial colectomy changes. Nondistended colon with fluid throughout. Consider diarrheal illness. Mild colitis may be present. URINARY BLADDER: Weinstein catheter nondistended urinary bladder with wall thickening. REPRODUCTIVE SYSTEM: Reproductive structures are unremarkable. PNEUMOPERITONEUM: None PERITONEAL FLUID:None BONY STRUCTURES: Multilevel lumbar facet degeneration. ABDOMINAL WALL: Unremarkable CT/CT abdomen pelvis wo con IMPRESSION: Similar mildly distended fluid-filled small bowel loop without transition point. Likely ileus. Findings suggesting diarrheal illness/colitis. Hepatic steatosis. Cholelithiasis. Similar aneurysmal prominence of the infrarenal abdominal aorta. Impression dictated by: Pascual Harris M.D.10/09/2024 4:57 PM Dictation Location: [place] [address] Transcribed By: [facility] 10/09/241656 Dictated By: Pascual Harris DO 10/09/241644 Signed By: 10/09/241656 Normal [facility] Clostridioides difficile tox in B tcdB gene [Presence] in Stool by ABE with probe deteOrdered By: Lakesha Haskins on 10-09-2024 C. difficile toxin B tcdB gene ABE+probe Ql (Stl) Clostridioides difficile toxin B tcdB gene [Presence] in Stool by ABE with probe dete Negative [facility] Comment on above: Testing performed by RT-PCR Clostridium Difficileon Clostridium Difficile Negative Normal Negative [facility] Comment on above: Order Comment: > or = to 3 loose/watery stools in the last 24 HRS? Y Is patient on promotility agents or tube feeding? N Result Comment: Test ing performed by RT-PCR PERFORMED BY: [facility] [address] [place] [address] PATHOLOGIST [employer] FINISHER ALEX SALMERON M.D. Performed By: #### P TT, FIB-C, PT #### [facility] [address] Complete Blood Count Auto Di ffon 10-09-2024 Basophils (Bld) [#/Vol] 0.0 10*3/uL Normal 0.0-0.2 [facility] Comment on above: Result Comment: PERF ORMED BY: [facility] [address] [place] [address] PATHOLOGIST [employer] FINISHER ALEX SALMERON M.D. Performed By: #### G LULS #### Point of Care testing , Basophils/100 WBC (Bld) 0.4 % Normal . T nalini [facility] Comment on above: Performed By: #### G LULS #### Point of Care testing , Eosinophils (Bld) [#/Vol] 0.1 10*3/uL Normal 0.0-0.45 [facility] Comment on above: Performed By: #### G LULS #### Point of Care testing , Eosinophils/100 WBC (Bld) 1.3 % Normal . [facility] Comment on above: Performed By: #### G LULS #### Point of Care testing , Erythrocyte distribution width (RBC) [Ratio] 13.9 % Normal 12.0-14.8 [facility] Comment on above: Performed By: #### G LULS #### Point of Care testing , Hematocrit (Bld) [Volume fraction] 36.0 % Low 38.8-50.0 [facility] Comment on above: Performed By: #### G LULS #### Point of Care testing , Hemoglobin (Bld) [Mass/Vol] 12.5 g/dL Low 13.0-17.0 [facility] Comment on above: Performed By: #### G LULS #### Point of Care testing , Lymphocytes (Bld) [#/Vol] 0.4 10*3/uL Low 1.00-4.8 [facility] Comment on above: Performed By: #### G LULS #### Point of Care testing , Lymphocytes/100 WBC (Bld) 3.5 % Normal . [facility] Comment on above: Performed By: #### G LULS #### Point of Care testing , MCH (RBC) [Entitic mass] 33.9 pg Normal 27.5-35.2 [facility] Comment on above: Performed By: #### G LULS #### Point of Care testing , MCV (RBC) [Entitic vol] 97.8 fL Normal 83.5-101 T [facility] Comment on above: Performed By: #### G LULS #### Point of Care testing , Mean Corpuscular HGB Conc 34.7 g/dL Normal 32.5-35.6 [facility] Comment on above: Performed By: #### G LULS #### Point of Care testing , Monocytes (Bld) [#/Vol] 1.0 10*3/uL High 0.0-0.8 [facility] Comment on above: Performed By: #### G LULS #### Point of Care testing , Monocytes/100 WBC (Bld) 8.9 % Normal . T [facility] Comment on above: Performed By: #### G LULS #### Point of Care testing , Neutrophils (Bld) [#/Vol] 9.8 10*3/uL High 1.8-7.7 [facility] Comment on above: Performed By: #### G LULS #### Point of Care testing , Neutrophils/100 WBC (Bld) 85.9 % Normal . [facility] Comment on above: Performed By: #### G LULS #### Point of Care testing , NRBC% 0.1 /100{WBC} Normal 0-0.5 [facility] Comment on above: Performed By: #### G LULS #### Point of Care testing , Platelet mean volume (Bld) [Entitic vol] 9.3 fL Normal 6.6-10.1 [facility] Comment on above: Performed By: #### G LULS #### Point of Care testing , Platelets (Bld) [#/Vol] 102 10*3/uL Low 150-450 [facility] Comment on above: Performed By: #### G KRYSTALLS #### Point of Care testing , RBC (Bld) [#/Vol] 3.69 10*6/uL Low 3.90-5.60 [facility] Comment on above: Performed By: #### G KRYSTALLS #### Point of Care testing , WBC (Bld) [#/Vol] 11.4 10*3/uL High 4.1-10.5 [facility] Comment on above: Performed By: #### G KRYSTALLS #### Point of Care testing , Comprehensive Metabolic Pane cyndy 10-09-2024 Albumin [Mass/Vol] 3.3 g/dL Low 3.5-5.7 [facility] Comment on above: Performed By: #### G KRYSTALLS #### Point of Care testing , Albumin/Globulin [Mass ratio] 1.6 {ratio} Normal [facility] Comment on above: Performed By: #### G KRYSTALLS #### Point of Care testing , ALP [Catalytic activity/Vol] 50 U/L Normal 34-104 [facility] Comment on above: Performed By: #### G KRYSTALLS #### Point of Care testing , ALT [Catalytic activity/Vol] 25 U/L Normal 7-52 [facility] Comment on above: Performed By: #### G KRYSTALLS #### Point of Care testing , Anion gap [Moles/Vol] 12.0 mmol/L Normal 6.0-15.0 Th e [facility] Comment on above: Performed By: #### G KRYSTALLS #### Point of Care testing , AST [Catalytic activity/Vol] 48 U/L High 13-39 [facility] Comment on above: Performed By: #### G KRYSTALLS #### Point of Care testing , Bilirubin [Mass/Vol] 0.4 mg/dL Normal 0.3-1.0 [facility] Comment on above: Performed By: #### G KRYSTALLS #### Point of Care testing , Calcium [Mass/Vol] 7.7 mg/dL Low 8.6-10.3 [facility] Comment on above: Performed By: #### G KRYSTALLS #### Point of Care testing , Chloride [Moles/Vol] 110 mmol/L High 98-107 [facility] Comment on above: Performed By: #### G LULS #### Point of Care testing , CO2 [Moles/Vol] 22.5 mmol/L Normal 21.0-31.0 [facility] Comment on above: Performed By: #### G LULS #### Point of Care testing , Creatinine [Mass/Vol] 2.23 mg/dL High 0.70-1.30 [facility] Comment on above: Performed By: #### G LULS #### Point of Care testing , Creatinine Clr Calc Pharmacy 30.12 Normal [facility] Comment on above: Performed By: #### G LULS #### Point of Care testing , Estimated GFR 27.998 mL/Min Normal [facility] Comment on above: Performed By: #### G LULS #### Point of Care testing , Globulin (S) [Mass/Vol] 2.1 g/dL Normal T he [facility] Comment on above: Performed By: #### G LULS #### Point of Care testing , Glucose [Mass/Vol] 185 mg/dL High 70-100 [facility] Comment on above: Result Comment: [place] Glucose Reference Range is dependent on time and content of last meal. Glucose of more than 200 mg/dL in a nonstressed, ambulatory subject supports the diagnosis of Diabetes Mellitus. ADA recommended reference range Performed By: #### G LULS #### Point of Care testing , Potassium [Moles/Vol] 4.5 mmol/L Normal 3.5-5.1 [facility] Comment on above: Performed By: #### G LULS #### Point of Care testing , Protein [Mass/Vol] 5.4 g/dL Low 6.4-8.9 [facility] Comment on above: Performed By: #### G LULS #### Point of Care testing , Sodium [Moles/Vol] 140 mmol/L Normal 136-145 [facility] Comment on above: Performed By: #### G LULS #### Point of Care testing , Urea nitrogen [Mass/Vol] 37 mg/dL High 7-25 [facility] Comment on above: Performed By: #### G LULS #### Point of Care testing , ECG 12 lead ECGon 10-09-2024 ECG 12 lead ECG [facility] [place] [address] Electrocardiograph Report Signed Patient: Jose L Ames MR#: [id number] : 1940 Acct:[id number] Age/Sex: 84 / M ADM Date: 10/09/24 Loc: Room: [address] [place] [address] Type: ADM IN Attending Dr: Javier Murray MD Ordering Provider: Loyda Carlos MD Date of Service: 10/09/2403/26/1941 ECG/ECG 12 lead ECG: prn ekg Copies to: Test Reason : Blood Pressure : 122/62 mmHG Vent. Rate : 89 BPM Atrial Rate : 89 BPM P-R Int : 238 ms QRS Dur : 96 ms QT Int : 376 ms P-R-T Axes : 76 -7 59 degrees QTcB Int : 457 ms Sinus rhythm with sinus arrhythmia with 1st degree AV block Nonspecific T wave abnormality Abnormal ECG When compared with ECG of 09-Oct-2024 19:38, (Unconfirmed) MD interval has increased Confirmed by [facility] ([id number] on 10/12/2024 6:24:02 PM Referred By: Electronically Signed By: VIET HALL MD [facility] Transcribed By: MUS Signed By Viet Hall MD, FACC 10/12/24 1824 Normal [facility] ECG 12 lead ECG [facility] [address] [place] [id number] Electrocardiograph Report Signed Patient: Jose L Ames MR#: [id number] : 1940 Acct:[id number] Age/Sex: 84 / M ADM Date: 10/09/24 Loc: Room: [address] [place] [address] Type: ADM IN Attending Dr: Javier Murray MD Ordering Provider: Loyda Carlos MD Date of Service: 10/09/2403/26/1940 ECG/ECG 12 lead ECG: prn ekg Copies to: Test Reason : Blood Pressure : 122/62 mmHG Vent. Rate : 87 BPM Atrial Rate : 87 BPM P-R Int : * ms QRS Dur : 94 ms QT Int : 352 ms P-R-T Axes : * 8 69 degrees QTcB Int : 423 ms Normal sinus rhythm with sinus arrhythmia Nonspecific T wave abnormality Abnormal ECG When compared with ECG of 05-Sep-2022 11:19, QRS axis shifted right Confirmed by ISABEL DAUGH[facility] ([id number] on 10/12/2024 6:23:20 PM Referred By: Electronically Signed By: VIET HALL MD [facility] Transcribed By: MUS Signed By Viet Hall MD, [facility] 10/12/24 182 Normal [facility] echo transthoracicon [facility] echo transthoracic [facility] [place] [address] Echocardiogram Signed Patient: Jose L Ames MR#: [id number] : 1940 Acct:[id number] Age/Sex: 84 / M ADM Date: 10/09/24 Loc: Room: [address] [place] [address] Type: ADM IN Attending Dr: Loyda Carlos MD Ordering Provider: Lakesha Haskins APRN Date of Service: 10/09/2403/26/500 [facility] tran[facility]: syncope Copies to: MD Lakesha Mccullough, [employer] BSA: 2.3 m2 BP: 105/56 mmHg HR: 85 Reason For Study: syncope History: CKD. CHF. HLD. DM. HTN. Smoker. AAA. Interpretation Summary Mild concentric left ventricular hypertrophy. Ejection Fraction = 55-60%. A variety of Doppler measurements indicate impaired left ventricular relaxation, which is associated with grade I/IV or mild diastolic dysfunction. Mild valvular aortic stenosis. The aortic valve maximum pressure gradient is 36 mmHg. The aortic valve mean gradient is 22 mmHg. Mild aortic root dilatation. The aortic root is 4.2 cm Compared to prior study, changes are noted. The mild aortic stenosis was not previously reported. Procedure/Quality: A two-dimensional transthoracic echocardiogram with color flow, Doppler and injection of contrast agent Definity was performed. A two- dimensional transthoracic echocardiogram with color flow and Doppler was performed. The study was technically suboptimal in quality due to patient body habitus . Left Ventricle: The left ventricular size is normal. Mild concentric left ventricular hypertrophy. Ejection Fraction = 55-60%. A variety of Doppler measurements indicate impaired left ventricular relaxation, which is associated with grade I/IV or mild diastolic dysfunction. The left ventricular wall motion is normal. Left Atrium: The left atrium appears normal in size. The atrial septum appears normal. Right Atrium: The right atrium appears normal in size. Right Ventricle: The right ventricular size, thickness and function are normal. Aortic Valve: The aortic valve is not well visualized. Mild valvular aortic stenosis. The aortic valve maximum pressure gradient is 36 mmHg. The aortic valve mean gradient is 22 mmHg. No aortic regurgitation is present. Mitral Valve: The mitral valve is normal in structure and function. There is no mitral regurgitation noted. Tricuspid Valve: The tricuspid valve is normal in structure and function. No tricuspid regurgitation. Pulmonic Valve: The pulmonic valve is normal in structure and function. Arteries: Mild aortic root dilatation. The aortic root is 4.2 cm. Pericardium/Pleura: No pericardial effusion seen. There is no pleural effusion. IVC/Hepatic Veins: The inferior vena cava is normal in size, with a normal collapsibility index. Measurements with Normals LA dimension: 3.6 cm (2.3-4.0 cm)Ao root diam: 2.5 cm(2.0-3.6 cm) asc Aorta Diam: 3.7 cm(2.1-3.4cm) Doppler with Normals LV V1 max: 117.1 cm/sec (0.7-1.7m/s)MV E max alex: 81.5 cm/sec(0.8-1.3m/s) MV A max alex: 121.4 cm/sec(0.0-0.0m/s) MV E/A: 0.67 (<1.5) MMode/2D Measurements Calculations TAPSE: 2.6 cm Ao root area: LVOT diam: 2.0 cm LVLd ap4: 8.3 cm RV S Alex: 5.1 cm2 LVOT area: 3.3 cm2 EDV(MOD-sp4): 15.8 cm/sec 178.0 ml LVLs ap4: 7.2 cm ESV(MOD-sp4): 79.6 ml EF(MOD-sp4): 55.3 % __ SV(MOD-sp4): LAV(MOD-sp4): LA A2 area: 15.3 cm2 98.4 ml 28.7 ml LAV(MOD-sp2): LA A4 area: 11.5 cm2 41.5 ml LA length (vol): 3.7 cm LA vol: 40.5 ml LA vol index: 17.7 ml/m2 Doppler Measurements Calculations MV dec time: E/E' lat: MV dec slope: Ao V2 max: 0.22 sec 13.6 301.6 cm/sec E/E' med: 376.4 cm/sec2 Ao max P.4 mmHg 9.9 Ao mean P.1 mmHg Ao V2 mean: 222.4 cm/sec Ao V2 VTI: 64.0 cm VÍCTOR(I,D): 1.0 cm2 VÍCTOR(V,D): 1.3 cm2 __ LV V1 max P.5 mmHg LV V1 mean P.8 mmHg LV V1 mean: 76.6 cm/sec LV V1 VTI: 20.0 cm Transcribed By: SCV Performed At: 10/09/24 0901 Signed By: Liz Plata MD 10/09/24 1558 Normal [facility] Glucose Poct Glucometerson 0 10-09-2024 Glucose [Mass/Vol] 137 mg/dL Normal [facility] Comment on above: Result Comment: [place] Glucose Reference Range is dependent on time and content of last meal. Glucose of more than 200 mg/dL in a nonstressed, ambulatory subject supports the diagnosis of Diabetes Mellitus. PERFORMED BY: [place] [address] [place] [address] PATHOLOGIST [employer] FINISHER ALEX SALMERON M.D. Performed By: #### P TT, FIB-C, PT #### [address] Glucose [Mass/Vol] 133 mg/dL Normal [facility] Comment on above: Result Comment: [place] Glucose Reference Range is dependent on time and content of last meal. Glucose of more than 200 mg/dL in a nonstressed, ambulatory subject supports the diagnosis of Diabetes Mellitus. PERFORMED BY: [place] [address] PATHOLOGIST [employer] FINISHER ALEX SALMERON M.D. Performed By: #### G LULS #### Point of Care testing , Commemt1 Glu2: Cleaned Meter Normal [facility] Comment on above: Result Comment: PERF ORMED BY: [place] [address] PATHOLOGIST [employer] FINISHER ALEX SALMERON M.D. Performed By: #### G LULS #### Point of Care testing , Glucose [Mass/Vol] 156 mg/dL Normal [facility] Comment on above: Result Comment: [place] om Glucose Reference Range is dependent on time and content of last meal. Glucose of more than 200 mg/dL in a nonstressed, ambulatory subject supports the diagnosis of Diabetes Mellitus. Performed By: #### G LULS #### Point of Care testing , Commemt1 Glu2: Cleaned Meter Normal [facility] Comment on above: Result Comment: PERF ORMED BY: [place] [address] PATHOLOGIST [employer] FINISHER ALEX SALMERON M.D. Performed By: #### G LULS #### Point of Care testing , Glucose [Mass/Vol] 192 mg/dL Normal [facility] Comment on above: Result Comment: [place] om Glucose Reference Range is dependent on time and content of last meal. Glucose of more than 200 mg/dL in a nonstressed, ambulatory subject supports the diagnosis of Diabetes Mellitus. Performed By: #### G LULS #### Point of Care testing , Hemoglobin A1c/Hemoglobin.to brendan in BloodOrdered By: Lakesha Haskins on 10-09-2024 HbA1c (Bld) [Mass fraction] Hemoglobin A1c percentage High 4.3-5.6 [facility] Comment on above: Increased risk for d iabetes: 5.7 - 6.4diabetes: >6.4glycemic control for adults with diabetes: <7.0 Magnesiumon 10-09-2024 Magnesium [Mass/Vol] 1.9 mg/dL Normal 1.9-2.7 [facility] Comment on above: Performed By: #### G LULS #### Point of Care testing , US carotid doppler BIon US carotid doppler BI [facility] [address] Ultrasound Report Signed Patient: Jose L Ames MR#: [id number] : 1940 Acct:[id number] Age/Sex: 84 / M ADM Date: 10/09/24 Loc: Room: [address] [place] [address] Type: ADM IN Attending Dr: Loyda Carlos MD Ordering Provider: Lakesha Haskins APRN Date of Service: 10/09/24 US/US carotid doppler BI: syncope Copies to: MD Lakesha Villafuerte, DOROTHY CAROTID DUPLEX INDICATION: Altered mental status, slurred speech, facial droop. PROCEDURE: Color-flow duplex scanning is used to interrogate the extracranial carotid arterial system, as well as both vertebral arteries. The proximal right internal carotid artery shows a highest peak systolic velocity of 92.7 cm/s with an end-diastolic velocity of 20.8 cm/s . The mid internal carotid artery measures 77.1 cm/s peak systolic with an end-diastolic velocity of 19.1 cm/s . The distal segment measures 57.2 cm/s peak systolic with an end diastolic velocity of 15.6 cm/s . The velocities of the right common carotid artery are 111 cm/s peak systolic and 23 cm/s end- diastolic proximally and 100 cm/s peak systolic and 19.9 cm/s end-diastolic distally. The peak systolic velocity ratio of the internal to the common carotid artery is 0.93 . The right external carotid artery measures 141 cm/s peak systolic. The right vertebral artery is patent at 67.7 cm/s peak systolic and with antegrade flow. The proximal left internal carotid artery shows a highest peak systolic velocity of 93.8 cm/s with an end-diastolic velocity of 16.2 cm/s . The mid internal carotid artery measures 93.2 cm/s peak systolic with an end-diastolic velocity of 26.1 cm/s . The distal segment measures 75.2 cm/s peak systolic with an end diastolic velocity of 19.2 cm/s . The velocities of the left common carotid artery are 129 cm/s peak systolic and 21.1 cm/s end-diastolic proximally and 116 cm/s peak systolic and 15.5 cm/s end-diastolic distally. The peak systolic velocity ratio of the internal to the common carotid artery is 0.81 . The left external carotid artery measures 101 cm/s peak systolic. The left vertebral artery is patent at 76.4 cm/s peak systolic with antegrade flow. US/US carotid doppler BI IMPRESSION: NO HEMODYNAMICALLY SIGNIFICANT STENOSIS OF EITHER EXTRACRANIAL INTERNAL CAROTID ARTERY. BOTH VERTEBRAL ARTERIES ARE PATENT WITH ANTEGRADE FLOW. Impression dictated by: Dean Barnard MD10/09/2024 9:26 AM Dictation Location: [place] [address] Tech: Sunita Box Transcribed By: KAYLEIGH 10/09/24925 Dictated By: Dean Barnard MD 10/09/24925 Signed By: 10/09/24925 Normal [facility] Vitamin D 25 Hydroxy Totalon 10-09-2024 Vitamin D 25 Hydroxy Total 56.5 ng/mL Normal 30-100 [facility] Comment on above: Result Comment: JOSE MIN D STATUS 25([place])VITAMIN D RANGE (ng/mL) Deficient <20 Insufficient 20 to <30 Sufficient 30 to 100 Reference: Bev MF,Ritu NC, James SIMON, et al. Evaluation,treatment, and prevention of vitamin D deficiency; an Endocrine Society clinical practice guideline. JCEM. 2010; 96(7):1911-30. PERFORMED BY: [address] [place] [address] PATHOLOGIST [employer] FINISHER ALEX SALMERON M.D. Performed By: #### G JESENIA #### Point of Care testing , Vitamin D+Metabolites [Mass/ volume] in Serum or PlasmaOrdered By: Lakesha Haskins on 10-09-2024 Vitamin D+Metabolites [Mass/Vol] Vitamin D+Metabolites [Mass/volume] in Serum or Plasma 30-100 [facility] Comment on above: VITAMIN D STATUS 25( [place])VITAMIN D RANGE (ng/mL) Deficient <20 Insufficient 20 to <30Sufficient 30 to 100Reference: Bev MF,Ritu PACHECO, James SIMON, et al. Evaluation,treatment, and prevention of vitamin D deficiency; an Endocrine Society clinical practice guideline. JCEM. 2010; 96(7):1911-30. Basophils Auto (Bld) [#/Vol] on 10-08-2024 Basophils (Bld) [#/Vol] Automated basophil count 0.0-0.1 [facility] Basophils/100 WBC Auto (Bld) on 10-08-2024 Basophils/100 WBC (Bld) Automated basophil % Low 0. 2-2.0 [facility] Eosinophils/100 WBC Auto (Bl d)on 10-08-2024 Eosinophils/100 WBC (Bld) Automated eosinophil % Low 0.9-7.0 [facility] Erythrocyte distribution wid th Auto (RBC) [Ratio]on 10-08-2024 Erythrocyte distribution width (RBC) [Ratio] Erythrocyte distribution width [Ratio] by Automated count 11.0-15.0 [facility] Estimated glomerular filtrat ion rate (GFR) non- Americanon 10-08-2024 GFR/1.73 sq M.predicted among non-blacks MDRD (S/P/Bld) [Vol rate/Area] Estimated glomerular filtration rate (GFR) non- Low >=60 mL/min/1.7 3m 2 [facility] Globulin Calc (S) [Mass/Vol] on 10-08-2024 Globulin (S) [Mass/Vol] Serum globulin m easurement by calculation (mass/volume) [facility] Hematocrit Auto (Bld) [Volum e fraction]on 10-08-2024 Hematocrit (Bld) [Volume fraction] Hematocrit [Volume Fraction] of Blood by Automated count 42.0-54.0 [facility] Hemoglobin [Mass/volume] in Bloodon 10-08-2024 Hemoglobin (Bld) [Mass/Vol] Hemoglobin [Mass/volume] in Blood 14.0-18.0 [facility] INR in Platelet poor plasma by Coagulation assayon 10-08-2024 INR Coag (PPP) [Relative time] INR in Platelet poor plasma by Coagulation assay [facility] Comment on above: DESIRED INR:2.0-3.0 CONDITIONS NOT LISTED BELOW2.5-3.5 FOR PROSTHETIC HEART VALVE REPLACEMENT2.5-3.5 RECURRENT THROMBOSIS Laboratory - Chemistry and C hemistry - challengeon 10-08-2024 Lactate [Moles/Vol] 0.7 mmol/L 0.4-2.0 [facility] Bilirubin Ql (U) SMALL Abnormal NEGATIVE [facility] Glucose (U) [Mass/Vol] Negative [facility]IVE [facility] Ketones Ql (U) TRACE mg/dL Abnormal NEGATIVE [facility] pH (U) 5.5 [pH] 5.0-9.0 [facility] Specific gravity (U) [Rel density] >=1.030 Abnormal 1.005-1.02 5 [facility] Urobilinogen Qn (U) 0.2 {Zeb'U}/dL 0.2-1.0 [facility] Albumin [Mass/Vol] 3.5 g/dL 3.4-5.0 [facility] ALP [Catalytic activity/Vol] 84 U/L 46-116 [facility] ALT [Catalytic activity/Vol] 20 U/L 16-63 [facility] AST [Catalytic activity/Vol] 17 U/L 15-37 [facility] Bilirubin [Mass/Vol] 0.7 mg/dL 0.2-1.0 [facility] Calcium [Mass/Vol] 8.2 mg/dL Low 8.5-10.1 [facility] Chloride [Moles/Vol] 102 mmol/L 98-107 [facility] CO2 [Moles/Vol] 16.1 mmol/L Low 21.0-32.0 [facility] Creatinine [Mass/Vol] 3.09 mg/dL High 0.70-1.30 [facility] GFR/1.73 sq M.predicted MDRD (S/P/Bld) [Vol rate/Area] 23 mL/min/{1.73_m2} Low >=60 mL/min/1.7 3m 2 [facility] Glucose [Mass/Vol] 309 mg/dL High 74-106 [facility] Potassium [Moles/Vol] 4.4 mmol/L 3.5-5.1 [facility] Protein [Mass/Vol] 6.6 g/dL 6.4-8.2 [facility] Sodium [Moles/Vol] 137 mmol/L 136-145 [facility] Urea nitrogen [Mass/Vol] 43.0 mg/dL High 7.0-18.0 [facility] Urea nitrogen/Creatinine [Mass ratio] 13.9 mg/mg [facility] Laboratory - Hematology and Cell countson 10-08-2024 Immature granulocytes/100 WBC (Bld) 0.6 % High 0.0-0.5 [facility] Laboratory - Microbiology an d Antimicrobial susceptibilityon 10-08-2024 SARS-CoV-2 (COVID-19) RNA ABE+probe Ql (Unsp spec) Negative NEGATIVE [facility] Comment on above: This test has not be en FDA cleared or approved, but has beenauthorized by the FDA under an Emergency Use Authorization(EUA) for use by authorized laboratories certified underIA that meet the requirements to perform moderate or highcomplexity testing. This test has been authorized only forthe detection of proteins from SARS-CoV-2, not for any otherviruses or pathogens. The emergency use of this test isauthorized for the duration of the declaration thatcircumstances exist justifying the authorization ofemergency use of in vitro diagnostic tests for detectionand/or diagnosis of Covid-19 under section 564(b)(1) of theAct, 21 U.S.C. 360bbb-3(b)(1), unless the declaration isterminated or authorization is revoked sooner. Laboratory - Specimen inform ationon 10-08-2024 Appearance (U) SL CLOUDY CLEAR [facility] Color (U) DK. YELLOW YELLOW [facility] Laboratory - Urinalysison Leukocyte esterase Test strip Ql (U) Negative NEGATIVE [facility] Nitrite Ql (U) Negative NEGATIVE [facility] Protein Ql (U) 30 mg/dL Abnormal NEG/TRACE [facility] Leukocytes [#/volume] correc layton for nucleated erythrocytes in Blood by Automated counon 10-08-2024 WBC corrected for nucl RBC Auto (Bld) [#/Vol] Leukocytes [#/volume] corrected for nucleated erythrocytes in Blood by Automated coun High 4.0-11.0 [facility] Lymphocytes Auto (Bld) [#/Vo l]on 10-08-2024 Lymphocytes (Bld) [#/Vol] Lymphocytes [#/volume] in Blood by Automated count Low 1.2-3.8 [facility] Lymphocytes/100 WBC Auto (Bl d)on 10-08-2024 Lymphocytes/100 WBC (Bld) Lymphocytes/100 leukocytes in Blood by Automated count Low 20.5-60.0 [facility] MCH Auto (RBC) [Entitic mass ]on 10-08-2024 MCH (RBC) [Entitic mass] MCH [Entitic mass] by Automated count High 25.9-34.0 [facility] MCHC Auto (RBC) [Mass/Vol]on 10-08-2024 MCHC (RBC) [Mass/Vol] MCHC [Mass/volume] by Automated count 29.9-35.2 [facility] MCV Auto (RBC) [Entitic vol] on 10-08-2024 MCV (RBC) [Entitic vol] MCV [Entitic vol ume] by Automated count High 80.0-94.0 [facility] Monocytes Auto (Bld) [#/Vol] on 10-08-2024 Monocytes (Bld) [#/Vol] Automated blood monocyte count 0.3-0.8 [facility] Monocytes/100 WBC Auto (Bld) on 10-08-2024 Monocytes/100 WBC (Bld) Automated monocyte % 1. 7-12.0 [facility] Neutrophils Auto (Bld) [#/Vo l]on 10-08-2024 Neutrophils (Bld) [#/Vol] Neutrophils [#/volume] in Blood by Automated count High 1.4-6.5 [facility] Neutrophils/100 WBC Auto (Bl d)on 10-08-2024 Neutrophils/100 WBC (Bld) Automated neutrophil % High 43.0-75.0 [facility] No Panel Informationon 10-08 Urine Microscopic Review NO [facility] Urine Occult Blood Negative NEGATIVE [facility] Bedside Influenza Type A Antigen Negative [facility] Comment on above: Negative for Flu A p rotein antigen. Infection due to Flu Acannot be ruled out. Flu A antigen in the sample may bebelow the detection limit of the test. Bedside Influenza Type B Antigen Negative [facility] Comment on above: Negative for Flu B p rotein antigen. Infection due to Flu Bcannot be ruled out. Flu B antigen in the sample may bebelow the detection limit of the test. Eosinophils # (Auto) 0.0 10 3/uL 0.0-0.7 [facility] Ethyl Alcohol Level <3 mg/dL [facility] Comment on above: NOTE: 80 mg/dl is th e legal limit for a blood alcohol level Immature Granulocyte # (Auto) 0.11 10 3/uL High 0.00-0.03 [facility] Troponin I High Sensitivity 10.7 pg/mL 4.0-76.1 [facility] Comment on above: CUT-OFF POINTS HAVE BEEN ESTABLISHED BASED ON THE FOURTHUNIVERSAL DEFINITION OF MYOCARDIAL INFARCTION. THE UPPERREFERENCE LIMIT (URL) OF TROPONIN, DEFINED THE 99THPERCENTILE OF cTnI DISTRIBUTION IN A REFERENCE POPULATION,HAS BEEN CONFIRMED THE DECISION THRESHOLD FOR MIDIAGNOSIS.99TH PERCENTILE = 76.2 PG/MLNOTE: HIGH-SENSITIVITY TROPONIN ASSAY IS NOT INTENDED TO BEUSED IN ISOLATION BUT SHOULD BE INTERPRETED IN CONJUNCTIONWITH OTHER DIAGNOSTIC AND CLINICAL INFORMATION. Platelet mean volume Auto (B ld) [Entitic vol]on 10-08-2024 Platelet mean volume (Bld) [Entitic vol] Platelet mean volume [Entitic volume] in Blood by Automated count 9.5-13.5 [facility] Platelets Auto (Bld) [#/Vol] on 10-08-2024 Platelets (Bld) [#/Vol] Platelets [#/vol ume] in Blood by Automated count Low 150-450 [facility] Prothrombin time (PT)on PT Coag (PPP) [Time] Prothrombin time (PT) 9.0- 11.6 [facility] RBC Auto (Bld) [#/Vol]on RBC (Bld) [#/Vol] Erythrocytes [#/volu me] in Blood by Automated count Low 4.70-6.10 [facility] Serum or plasma albumin/glob ulin mass ratioon 10-08-2024 Albumin/Globulin [Mass ratio] Serum or plasma albumin/globulin mass ratio [facility] Serum or plasma anion gap de terminationon 10-08-2024 Anion gap [Moles/Vol] Serum or plasma an ion gap determination [facility] Provider Letteron 10-07-2024 Provider Letter Provider Letter October 07, 2024 JOSE L KWAKU [address] [place] [phone] : 1940 Dear Rl Ames, We have been trying to reach you with no success. You have an appointment with Dr Baez on October 14 on which will need to be rescheduled since his schedule has changed that day. We have options with his web production assistant/nurse practitioner. Please contact the office at the number listed below to get this appointment rescheduled at your earliest convenience. Thank you for your prompt attention to this matter. Call [phone] option3 as soon as possible to be rescheduled. Sincerely, [facility] Basophils Auto (Bld) [#/Vol] on 10-06-2024 Basophils (Bld) [#/Vol] Automated basophil count 0.0-0.1 [facility] Basophils/100 WBC Auto (Bld) on 10-06-2024 Basophils/100 WBC (Bld) Automated basophil % 0. 2-2.0 [facility] Eosinophils/100 WBC Auto (Bl d)on 10-06-2024 Eosinophils/100 WBC (Bld) Automated eosinophil % 0.9-7.0 [facility] Erythrocyte distribution wid th Auto (RBC) [Ratio]on 10-06-2024 Erythrocyte distribution width (RBC) [Ratio] Erythrocyte distribution width [Ratio] by Automated count 11.0-15.0 [facility] Estimated glomerular filtrat ion rate (GFR) non- Americanon 10-06-2024 GFR/1.73 sq M.predicted among non-blacks MDRD (S/P/Bld) [Vol rate/Area] Estimated glomerular filtration rate (GFR) non- Low >=60 mL/min/1.7 3m 2 [facility] Hematocrit Auto (Bld) [Volum e fraction]on 10-06-2024 Hematocrit (Bld) [Volume fraction] Hematocrit [Volume Fraction] of Blood by Automated count Low 42.0-54.0 [facility] Hemoglobin [Mass/volume] in Bloodon 10-06-2024 Hemoglobin (Bld) [Mass/Vol] Hemoglobin [Mass/volume] in Blood Low 14.0-18.0 [facility] Laboratory - Chemistry and C hemistry - challengeon 10-06-2024 Calcium [Mass/Vol] 8.8 mg/dL 8.5-10.1 [facility] Chloride [Moles/Vol] 104 mmol/L 98-107 [facility] CO2 [Moles/Vol] 29.9 mmol/L 21.0-32.0 [facility] Creatinine [Mass/Vol] 1.42 mg/dL High 0.70-1.30 [facility] GFR/1.73 sq M.predicted MDRD (S/P/Bld) [Vol rate/Area] 57 mL/min/{1.73_m2} Low >=60 mL/min/1.7 3m 2 [facility] Glucose [Mass/Vol] 147 mg/dL High 74-106 [facility] Potassium [Moles/Vol] 4.6 mmol/L 3.5-5.1 [facility] Sodium [Moles/Vol] 140 mmol/L 136-145 [facility] Urea nitrogen [Mass/Vol] 12.0 mg/dL 7.0-18.0 [facility] Urea nitrogen/Creatinine [Mass ratio] 8.5 mg/mg [facility] Laboratory - Hematology and Cell countson 10-06-2024 Immature granulocytes/100 WBC (Bld) 0.5 % 0.0-0.5 [facility] Leukocytes [#/volume] correc layton for nucleated erythrocytes in Blood by Automated counon 10-06-2024 WBC corrected for nucl RBC Auto (Bld) [#/Vol] Leukocytes [#/volume] corrected for nucleated erythrocytes in Blood by Automated coun 4.0-11.0 [facility] Lymphocytes Auto (Bld) [#/Vo l]on 10-06-2024 Lymphocytes (Bld) [#/Vol] Lymphocytes [#/volume] in Blood by Automated count Low 1.2-3.8 [facility] Lymphocytes/100 WBC Auto (Bl d)on 10-06-2024 Lymphocytes/100 WBC (Bld) Lymphocytes/100 leukocytes in Blood by Automated count 20.5-60.0 [facility] MCH Auto (RBC) [Entitic mass ]on 10-06-2024 MCH (RBC) [Entitic mass] MCH [Entitic mass] by Automated count 25.9-34.0 [facility] MCHC Auto (RBC) [Mass/Vol]on 10-06-2024 MCHC (RBC) [Mass/Vol] MCHC [Mass/volume] by Automated count 29.9-35.2 [facility] MCV Auto (RBC) [Entitic vol] on 10-06-2024 MCV (RBC) [Entitic vol] MCV [Entitic vol ume] by Automated count High 80.0-94.0 [facility] Monocytes Auto (Bld) [#/Vol] on 10-06-2024 Monocytes (Bld) [#/Vol] Automated blood monocyte count 0.3-0.8 [facility] Monocytes/100 WBC Auto (Bld) on 10-06-2024 Monocytes/100 WBC (Bld) Automated monocyte % 1. 7-12.0 [facility] Neutrophils Auto (Bld) [#/Vo l]on 10-06-2024 Neutrophils (Bld) [#/Vol] Neutrophils [#/volume] in Blood by Automated count 1.4-6.5 [facility] Neutrophils/100 WBC Auto (Bl d)on 10-06-2024 Neutrophils/100 WBC (Bld) Automated neutrophil % 43.0-75.0 [facility] No Panel Informationon 10-06 Eosinophils # (Auto) 0.1 10 3/uL 0.0-0.7 [facility] Immature Granulocyte # (Auto) 0.02 10 3/uL 0.00-0.03 [facility] Platelet mean volume Auto (B ld) [Entitic vol]on 10-06-2024 Platelet mean volume (Bld) [Entitic vol] Platelet mean volume [Entitic volume] in Blood by Automated count 9.5-13.5 [facility] Platelets Auto (Bld) [#/Vol] on 10-06-2024 Platelets (Bld) [#/Vol] Platelets [#/vol ume] in Blood by Automated count Low 150-450 [facility] RBC Auto (Bld) [#/Vol]on RBC (Bld) [#/Vol] Erythrocytes [#/volu me] in Blood by Automated count Low 4.70-6.10 [facility] Serum or plasma anion gap de terminationon 10-06-2024 Anion gap [Moles/Vol] Serum or plasma an ion gap determination [facility] Basophils Auto (Bld) [#/Vol] on 07-16-2024 Basophils (Bld) [#/Vol] Automated basophil count 0.0-0.1 [facility] Basophils/100 WBC Auto (Bld) on 07-16-2024 Basophils/100 WBC (Bld) Automated basophil % 0. 2-2.0 [facility] Eosinophils/100 WBC Auto (Bl d)on 07-16-2024 Eosinophils/100 WBC (Bld) Automated eosinophil % 0.9-7.0 [facility] Erythrocyte distribution wid th Auto (RBC) [Ratio]on 07-16-2024 Erythrocyte distribution width (RBC) [Ratio] Erythrocyte distribution width [Ratio] by Automated count 11.0-15.0 [facility] Estimated glomerular filtrat ion rate (GFR) non- Americanon 07-16-2024 GFR/1.73 sq M.predicted among non-blacks MDRD (S/P/Bld) [Vol rate/Area] Estimated glomerular filtration rate (GFR) non- Low >=60 mL/min/1.7 3m 2 [facility] Globulin Calc (S) [Mass/Vol] on 07-16-2024 Globulin (S) [Mass/Vol] Serum globulin m easurement by calculation (mass/volume) [facility] Glucose mean value [Mass/vol ume] in Blood Estimated from glycated hemoglobinon 07-16-2024 Average glucose Estimated from glycated hemoglobin (Bld) [Mass/Vol] Glucose mean value [Mass/volume] in Blood Estimated from glycated hemoglobin [facility] Hematocrit Auto (Bld) [Volum e fraction]on 07-16-2024 Hematocrit (Bld) [Volume fraction] Hematocrit [Volume Fraction] of Blood by Automated count Low 42.0-54.0 [facility] Hemoglobin [Mass/volume] in Bloodon 07-16-2024 Hemoglobin (Bld) [Mass/Vol] Hemoglobin [Mass/volume] in Blood Low 14.0-18.0 [facility] Laboratory - Chemistry and C hemistry - challengeon 07-16-2024 Albumin [Mass/Vol] 3.7 g/dL 3.4-5.0 [facility] ALP [Catalytic activity/Vol] 116 U/L 46-116 [facility] ALT [Catalytic activity/Vol] 24 U/L 16-63 [facility] AST [Catalytic activity/Vol] 15 U/L 15-37 [facility] Bilirubin [Mass/Vol] 0.5 mg/dL 0.2-1.0 [facility] Calcium [Mass/Vol] 9.1 mg/dL 8.5-10.1 [facility] Chloride [Moles/Vol] 100 mmol/L 98-107 [facility] CO2 [Moles/Vol] 28.6 mmol/L 21.0-32.0 [facility] Creatinine [Mass/Vol] 1.42 mg/dL High 0.70-1.30 [facility] GFR/1.73 sq M.predicted MDRD (S/P/Bld) [Vol rate/Area] 57 mL/min/{1.73_m2} Low >=60 mL/min/1.7 3m 2 [facility] Glucose [Mass/Vol] 129 mg/dL High 74-106 [facility] Potassium [Moles/Vol] 4.5 mmol/L 3.5-5.1 [facility] Protein [Mass/Vol] 7.1 g/dL 6.4-8.2 [facility] Sodium [Moles/Vol] 138 mmol/L 136-145 [facility] TSH Qn 1.188 m[IU]/L 0.358-3.74 0 [facility] Urea nitrogen [Mass/Vol] 16.0 mg/dL 7.0-18.0 [facility] Urea nitrogen/Creatinine [Mass ratio] 11.3 mg/mg [facility] Laboratory - Hematology and Cell countson 07-16-2024 HbA1c (Bld) [Mass fraction] 6.4 % High 4.5-6.2 [facility] Comment on above: ADA RECOMMENDED LIMI T 4.0 - 6.0ADA THERAPEUTIC TARGET < 7.0ACTION SUGGESTED> 7.0 Immature granulocytes/100 WBC (Bld) 0.7 % High 0.0-0.5 [facility] Leukocytes [#/volume] correc layton for nucleated erythrocytes in Blood by Automated counon 07-16-2024 WBC corrected for nucl RBC Auto (Bld) [#/Vol] Leukocytes [#/volume] corrected for nucleated erythrocytes in Blood by Automated coun 4.0-11.0 [facility] Lymphocytes Auto (Bld) [#/Vo l]on 07-16-2024 Lymphocytes (Bld) [#/Vol] Lymphocytes [#/volume] in Blood by Automated count 1.2-3.8 [facility] Lymphocytes/100 WBC Auto (Bl d)on 07-16-2024 Lymphocytes/100 WBC (Bld) Lymphocytes/100 leukocytes in Blood by Automated count 20.5-60.0 [facility] MCH Auto (RBC) [Entitic mass ]on 07-16-2024 MCH (RBC) [Entitic mass] MCH [Entitic mass] by Automated count 25.9-34.0 [facility] MCHC Auto (RBC) [Mass/Vol]on 07-16-2024 MCHC (RBC) [Mass/Vol] MCHC [Mass/volume] by Automated count 29.9-35.2 [facility] MCV Auto (RBC) [Entitic vol] on 07-16-2024 MCV (RBC) [Entitic vol] MCV [Entitic vol ume] by Automated count High 80.0-94.0 [facility] Microalbumin [Mass/volume] i n Urineon 07-16-2024 Albumin DL <= 20 mg/L (U) [Mass/Vol] Microalbumin [Mass/volume] in Urine <=30.0 [facility] Monocytes Auto (Bld) [#/Vol] on 07-16-2024 Monocytes (Bld) [#/Vol] Automated blood monocyte count 0.3-0.8 [facility] Monocytes/100 WBC Auto (Bld) on 07-16-2024 Monocytes/100 WBC (Bld) Automated monocyte % 1. 7-12.0 [facility] Neutrophils Auto (Bld) [#/Vo l]on 07-16-2024 Neutrophils (Bld) [#/Vol] Neutrophils [#/volume] in Blood by Automated count 1.4-6.5 [facility] Neutrophils/100 WBC Auto (Bl d)on 07-16-2024 Neutrophils/100 WBC (Bld) Automated neutrophil % 43.0-75.0 [facility] No Panel Informationon 07-16 Eosinophils # (Auto) 0.1 10 3/uL 0.0-0.7 [facility] Immature Granulocyte # (Auto) 0.04 10 3/uL High 0.00-0.03 [facility] Platelet mean volume Auto (B ld) [Entitic vol]on 07-16-2024 Platelet mean volume (Bld) [Entitic vol] Platelet mean volume [Entitic volume] in Blood by Automated count 9.5-13.5 [facility] Platelets Auto (Bld) [#/Vol] on 07-16-2024 Platelets (Bld) [#/Vol] Platelets [#/vol ume] in Blood by Automated count Low 150-450 [facility] RBC Auto (Bld) [#/Vol]on RBC (Bld) [#/Vol] Erythrocytes [#/volu me] in Blood by Automated count Low 4.70-6.10 [facility] Serum or plasma albumin/glob ulin mass ratioon 07-16-2024 Albumin/Globulin [Mass ratio] Serum or plasma albumin/globulin mass ratio [facility] Serum or plasma anion gap de terminationon 07-16-2024 Anion gap [Moles/Vol] Serum or plasma an ion gap determination [facility] Ambulatory Visit Summaryon 0 04-15-2024 Ambulatory Visit Summary Ambulatory Visit Summary JOSE L AMES :1940 Visit Date:04/15/2024 Ambulatory Visit Instructions Your Diagnosis OAB (overactive bladder) BPH with urinary obstruction Asymptomatic microscopic hematuria Your Care Team Attending Physician - Carlos A BAEZ MD Primary Care Physician - ERICH ALEJANDRO DO This Is Your Medications List ascorbic acid cholecalciferol mirabegron (Myrbetriq 50 mg oral tablet, extended release) oxybutynin (oxybutynin 5 mg Tab) Contact prescribing physician if questions or concerns acetaminophen (acetaminophen 325 mg Tab) albuterol (albuterol 0.083% Inh Idalia 3 mL) amlodipine (amLODIPine 10 mg Tab) aspirin (aspirin 81 mg Oral EC Tab) budesonide-formoterol (Symbicort 160/4.5 inhalation aerosol with adapter) insulin [...] prostate (2014), Complete resection of colon, Tonsillectomy. Discharge Vitals Height 180 cm Height 71 in Weight 108 kg Weight 237.6 lb BMI 33.33 What to do next Scheduled Follow-Up Appointments Saturday 1:00 PM EST With: Carlos A BAEZ MD Where: [facility] [address] [place] [address]- You Need to Schedule the Following Appointments Follow Up with Carlos A BAEZ MD, URL When: Where: [address] [facility] [address] [place] [address]- Medications What How Much When Instructions New oxybutynin (oxybutynin 5 mg Tab) 1 Tablets By Mouth At bedtime Refills: 11 Take 30 min prior to bedtime. Pickup at [id number] Unchanged ascorbic acid 500 Milligram Unchanged cholecalciferol 10 Microgram Unchanged mirabegron (Myrbetriq 50 mg oral tablet, extended release) 1 Tablets By Mouth Every day Unchanged acetaminophen (acetaminophen 325 mg Tab) 2 Tablets By Mouth Every 6 hours as needed for pain Contact prescribing physician if questions or concerns Unchanged albuterol (albuterol 0.083% Inh Idalia 3 mL) 3 Milliliter Nebulized inhalation (aerosol) Every 4 hours as needed for Shortness of breath or wheezing Contact prescribing physician if questions or concerns Unchanged amlodipine (amLODIPine 10 mg Tab) Contact prescribing physician if questions or concerns Unchanged aspirin (aspirin 81 mg Oral EC Tab) 1 Tablets By Mouth Every day Contact prescribing physician if questions or concerns Unchanged budesonide-formoterol (Symbicort 160/ 4.5 inhalation aerosol with adapter) 2 Puffs Inhalation 2 times a day Contact prescribing physician if questions or concerns Unchanged insulin glargine (Lantus Solostar Pen 100 units/ mL subcutaneous solution) 20 Units Subcutaneous Every day Contact prescribing physician if questions or concerns Unchanged lisinopril (lisinopril 20 mg Tab) Contact prescribing physician if questions or concerns Unchanged metformin (metformin 1000 mg oral tablet) 1 Tablets By Mouth 2 times a day Contact prescribing physician if questions or concerns Unchanged potassium chloride (potassium chloride 15 mEq oral tablet, extended release) 1 Tablets By Mouth Every day Contact prescribing physician if questions or concerns Unchanged tiotropium (Spiriva HandiHaler 18 mcg inhalation capsule) 1 Capsules Inhalation Every day Contact prescribing physician if questions or concerns Unchanged tizanidine (tiZANidine 2 mg Tab) Contact prescribing physician if questions or concerns Unchanged torsemide (torsemide 10 mg Tab) 1 Tablets By Mouth Every day Contact prescribing physician if questions or concerns Pharmacy Information [id number]: [address], [place] [id number] [phone] What How Much When Comments Stop Taking tamsulosin (tamsulosin 0.4 mg Cap) 1 Capsules By Mouth Every day Allergies No Known Allergies Problems Ongoing - Any problem that you are currently receiving treatment for. Asymptomatic microscopic hematuria BPH with urinary obstruction Cigarette smoker COPD type B Delirium Dependent edema Diverticulosis of colon DM2 (diabetes mellitus, type 2) Essential hypertension Frequency of urination and polyuria Hypertension Lumbar spondylosis Mixed hyperlipidemia OAB (overactive bladder) Obesity due to excess calories Pneumonia Radial nerve palsy Urge incontinence Urinary frequency Urinary (more content not included)... [facility] Urology Office/Clinic Noteon 04-15-2024 Urology Office/Clinic Note Urology Office/Clinic Note Chief Complaint 2 monlth F/U HPI Staff 83 yo male here for 2 mos f/up. Prior Dr. Haskins pt. Previous dx: OAB, BPH w/ LUTS, asymptomatic microscopic hematuria. Started on Myrbetriq 50mg ER qd at last visit. Dysuria: no Incomplete bladder emptying: no, PVR 0mL Hematuria: no Frequency: yes Urgency: no Nocturia: 4x's Stream: good stream Post void dripping: no Wearing pads/ Depends: _ Urge incontinence: occasionally Stress incontinence: no Incontinence without Sensory Awareness: no Abdominal pain: no Flank pain: no History of Present Illness Tests reviewed: reviewed UA. I have reviewed the previous health record information and history for this patient from Dr. Baez. I have reviewed and verified the staff HPI to be accurate for this encounter. There have been no associated fever, chills, flank pain, or blood in the urine. Denies any urinary infections since last encounter. Review of Systems PHQ Score Initial Depression Screen Score: 0 SCORE ROS - Provider Constitutional: denies weight loss, denies hot flashes. Eyes: denies eye problems. Gastrointestinal: denies nausea, denies vomiting. Cardiovascular: denies chest pain or angina. Integumentary: no dryness Musculoskeletal: denies musculoskeletal symptoms. ENMT: denies otolaryngeal symptoms. Respiratory: no shortness of breath. Heme/Lymph: denies easy bleeding tendency, denies easy bruising tendency. Psychiatric: no confusion, no anxiety. Genitourinary: See HI. Physical Exam Vitals & Measurements HT: 71 in HT: 180 cm WT: 108 kg WT: 237.6 lb BMI: 33.33 General Appearance: alert, no distress, well nourished, well developed male. Assessment/Plan 83 yo male here for 2 mos f/up. Prior Dr. Haskins pt. Pt accompanied by today. Portions of this record may have been created with voice recognition artificial intelligence software, specifically [employer], [employer] and or [employer]. Substitutions may have occurred due to the inherent limitations of voice recognition and artificial intelligence software. 1. OAB (overactive bladder) (N32.81: Overactive bladder) PVR (cc): 01/29/24 - 04/15/24 - 0 Failed Oxybutynin due to no improvement. Started on Myrbetriq 50mg ER qd at last visit. Has noticed a slight improvement in sx over the last week but is still c/o frequency during the day and night. Has drastically decreased coffee intake. Used to drink 10-12 cups per day. Now 1-2 cups per day. Bladder irritant list has been given in the past. Explained to pt that Botox is not typically recommended for men. Discussed voiding diary, pt feels this wouldn't help. Had the discussion of adding low dose Oxybutynin at night time. Counseled on possible SE. Pt wishes to add a new med. -Begin Oxybutynin 5mg qhs along with Myrbetriq -Cont med wo changes -Cont symptomatic monitoring Follow up in 6 mos w/ PVR and pt to call with an update prior to next appt. 2. 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 prostatic hyperplasia with lower urinary tract symptoms) S/p TURP [address] Carrasquillo. UA today neg for blood or infection. IPSS 9 (11) Failed Flomax due to no improvement. See #1. 3. Asymptomatic microscopic hematuria (R31.21: Asymptomatic microscopic hematuria) S/p cysto/UD 01/12/21. FISH/cytol 12/29/20 neg. UA today neg. Denies gross hematuria. Pt understands to call the office with visible blood in urine. The patient is here with his today. He continues to have urinary frequency which is his essentially only symptom that is fairly severe making him void every 1-2 hours both day and night. He may have had just a bit of improvement lately from the Myrbetriq at 50 mg. I let him know this is unusual for it to take this long to take effect. He has limited coffee and other bladder irritants. Will add a low-dose anticholinergic at night and he knows to monitor his urinary flow. He is carrying a 0 residual by PVR today. Follow-up With When Contact Information Carlos A BAEZ MD, URL [address] [address]- Additional Instructions: 6 mos w/ PVR Patient Education Overactive Bladder, Adult I, Alisson Saeed, personally scribed for Dr. Baez on 04/15/2024 13:33:48. . Documentation recorded by the scribe, Alisson Saeed, accurately reflects the services(s) I performed and decisions made by me. Authenticated by Dr. Baez on 04/15/2024 13:39:04. Problem List/Past Medical History Ongoing Asymptomatic microscopic hematuria BPH with urinary obstruction Cigarette smoker COPD type B Delirium Dependent edema Diverticulosis of colon DM2 (diabetes mellitus, type 2) Essential hypertension Frequency of urination and polyuria Hypertension Lumbar spondylosis Mixed hyperlipidemia OAB (overactive bladder) Obesity due to excess calories Pneumonia Radial nerve p (more content not included)... Normal [facility] Comment on above: Result Comment: Elec tronically Signed By: Carlos A BAEZ MD\.br\Date and Time Signed: 04/15/24 13:39 EDT\.br\Electronically Co-Signed By: Alisson Saeed\.br\Date and Time Co-Signed: 04/15/24 13:35 EDT\.br\Electronically Co-Signed By: Alisson Saeed\.br\Date and Time Co-Signed: 04/15/24 13:36 EDT Basophils Auto (Bld) [#/Vol] on 04-07-2024 Basophils (Bld) [#/Vol] 0.0 10 3/uL 0.0-0.1 [facility] Basophils/100 WBC Auto (Bld) on 04-07-2024 Basophils/100 WBC (Bld) 0.9 % 0.2-2.0 [facility] Eosinophils/100 WBC Auto (Bl d)on 04-07-2024 Eosinophils/100 WBC (Bld) 0.7 % Low 0.9-7.0 [facility] Erythrocyte distribution wid th Auto (RBC) [Ratio]on 04-07-2024 Erythrocyte distribution width (RBC) [Ratio] 12.8 % 11.0-15.0 [facility] Estimated glomerular filtrat ion rate (GFR) non- Americanon 04-07-2024 GFR/1.73 sq M.predicted among non-blacks MDRD (S/P/Bld) [Vol rate/Area] 59 mL/min/{1.73_m2} Low >=60 [facility] Globulin Calc (S) [Mass/Vol] on 04-07-2024 Globulin (S) [Mass/Vol] 3.0 g/dL [facility] Glucose mean value [Mass/vol ume] in Blood Estimated from glycated hemoglobinon 04-07-2024 Average glucose Estimated from glycated hemoglobin (Bld) [Mass/Vol] 203 mg/dL [facility] Hematocrit Auto (Bld) [Volum e fraction]on 04-07-2024 Hematocrit (Bld) [Volume fraction] 42.1 % 42.0-54.0 [facility] Hemoglobin [Mass/volume] in Bloodon 04-07-2024 Hemoglobin (Bld) [Mass/Vol] 14.0 g/dL 14.0-18.0 [facility] Laboratory - Chemistry and C hemistry - challengeon 04-07-2024 Albumin [Mass/Vol] 3.5 g/dL 3.4-5.0 [facility] ALP [Catalytic activity/Vol] 120 U/L High 46-116 [facility] ALT [Catalytic activity/Vol] 27 U/L 16-63 [facility] AST [Catalytic activity/Vol] 16 U/L 15-37 [facility] Bilirubin [Mass/Vol] 0.4 mg/dL 0.2-1.0 [facility] Calcium [Mass/Vol] 9.0 mg/dL 8.5-10.1 [facility] Chloride [Moles/Vol] 101 mmol/L 98-107 [facility] CO2 [Moles/Vol] 27.1 mmol/L 21.0-32.0 [facility] Creatinine [Mass/Vol] 1.18 mg/dL 0.70-1.30 [facility] GFR/1.73 sq M.predicted MDRD (S/P/Bld) [Vol rate/Area] mL/min/{1.73_m2} >=60 [facility] Glucose [Mass/Vol] 248 mg/dL High 74-106 [facility] Potassium [Moles/Vol] 4.5 mmol/L 3.5-5.1 [facility] Protein [Mass/Vol] 6.5 g/dL 6.4-8.2 [facility] Sodium [Moles/Vol] 136 mmol/L 136-145 [facility] Urea nitrogen [Mass/Vol] 21.0 mg/dL High 7.0-18.0 [facility] Urea nitrogen/Creatinine [Mass ratio] 17.8 mg/mg [facility] - Hematology and Cell countson 04-07-2024 HbA1c (Bld) [Mass fraction] 8.7 % High 4.5-6.2 [facility] Comment on above: ADA RECOMMENDED LIMI T 4.0 - 6.0ADA THERAPEUTIC TARGET < 7.0ACTION SUGGESTED> 7.0 Immature granulocytes/100 WBC (Bld) 0.2 % 0.0-0.5 [facility] Leukocytes [#/volume] correc layton for nucleated erythrocytes in Blood by Automated counon 04-07-2024 WBC corrected for nucl RBC Auto (Bld) [#/Vol] 4.5 10 3/uL 4.0-11.0 [facility] Lymphocytes Auto (Bld) [#/Vo l]on 04-07-2024 Lymphocytes (Bld) [#/Vol] 0.7 10 3/uL Low 1.2-3.8 [facility] Lymphocytes/100 WBC Auto (Bl d)on 04-07-2024 Lymphocytes/100 WBC (Bld) 16.1 % Low 20.5-60.0 [facility] MCH Auto (RBC) [Entitic mass ]on 04-07-2024 MCH (RBC) [Entitic mass] 32.7 pg 25.9-34.0 [facility] MCHC Auto (RBC) [Mass/Vol]on 04-07-2024 MCHC (RBC) [Mass/Vol] 33.3 g/dL 29.9-35.2 [facility] MCV Auto (RBC) [Entitic vol] on 04-07-2024 MCV (RBC) [Entitic vol] 98.4 fL High 80.0-94.0 [facility] Monocytes Auto (Bld) [#/Vol] on 04-07-2024 Monocytes (Bld) [#/Vol] 0.4 10 3/uL 0.3-0.8 [facility] Monocytes/100 WBC Auto (Bld) on 04-07-2024 Monocytes/100 WBC (Bld) 9.1 % 1.7-12.0 [facility] Neutrophils Auto (Bld) [#/Vo l]on 04-07-2024 Neutrophils (Bld) [#/Vol] 3.3 10 3/uL 1.4-6.5 [facility] Neutrophils/100 WBC Auto (Bl d)on 04-07-2024 Neutrophils/100 WBC (Bld) 73.0 % 43.0-75.0 [facility] No Panel Informationon 04-07 Eosinophils # (Auto) 0.0 10 3/uL 0.0-0.7 [facility] Immature Granulocyte # (Auto) 0.01 10 3/uL 0.00-0.03 [facility] Platelet mean volume Auto (B ld) [Entitic vol]on 04-07-2024 Platelet mean volume (Bld) [Entitic vol] 9.7 fL 9.5-13.5 [facility] Platelets Auto (Bld) [#/Vol] on 04-07-2024 Platelets (Bld) [#/Vol] 125 10 3/uL Low 150-450 [facility] RBC Auto (Bld) [#/Vol]on RBC (Bld) [#/Vol] 4.28 10 6/uL Low 4.70-6.10 [facility] Serum or plasma albumin/glob ulin mass ratioon 04-07-2024 Albumin/Globulin [Mass ratio] 1.2 {ratio} [facility] Serum or plasma anion gap de terminationon 04-07-2024 Anion gap [Moles/Vol] 12.4 mmol/L [facility]enson 01-30-2024 Screens [id number]#[id number] Normal [facility] Screens [id number]#[id number] Normal [facility] Ambulatory Visit Summaryon 0 01-29-2024 Ambulatory Visit Summary JOSE L AMES :1940 Visit Date:01/29/2024 Ambulatory Visit Instructions Your Diagnosis OAB (overactive bladder) BPH with urinary obstruction Asymptomatic microscopic hematuria Your Care Team Attending Physician - LORRAINE DAUGHERTY, Carlos A Hamilton Primary Care Physician - ERICH ALEJANDRO DO This Is Your Medications List mirabegron (Myrbetriq 50 mg oral tablet, extended release) Contact prescribing physician if questions or concerns acetaminophen (acetaminophen 325 mg Tab) albuterol (albuterol 0.083% Inh Idalia 3 mL) amlodipine (amLODIPine 10 mg Tab) aspirin (aspirin 81 mg Oral EC Tab) budesonide-formoterol (Symbicort 160/4.5 inhalation aerosol with adapter) insulin [...] Follow-Up Appointments Saturday 1:00 PM EDT With: LORRAINE DAUGHERTY, Carlos A Hamilton Where: [facility] Patient Educationon 01-29-20 24 Patient Education Obstetrics and Gynec ology Overactive Bladder, Adult Overactive bladder is a [...] health care provider. General instructions ? Take eonr-wyo-djyonai and prescription medicines only as told by [...] monitor yo (more content not included)... Normal [facility] Urology Office/Clinic Noteon 01-29-2024 Urology Office/Clinic [...] and history for this patient from Dr. Baez. I have reviewed and verified the staff [...] with voice recognition artificial intelligence software, specifically [employer] and or [employer]. Substitutions may have occurred due to the inherent limitations of voice recognition and artificial intelligence software. 1. OAB (overactive bladder) (N32.81: Overactive bladder) PVR (cc): 01/29/24 - 27 Having severe urgency and getting [...] LORRAINE DAUGHERTY, Carlos A Hamilton, URL [address] [address]- Additional Instructions: 6 wks Patient Education Overactive Bladder, Adult I, Alisson Saeed, personally scribed for Dr. Baez on 01/29/2024 14:46:11. . Documentation recorded by the scribe, Alisson Saeed, accurately reflects the services(s) I performed and decisions made by me. Authenticated by Dr. Baez on 01/29/2024 14:49:34. Problem List/Past Medical History [...] left humerus, (more content not included)... Normal [facility] Comment on above: Result Comment: Elec tronically Signed By: LORRAINE DAUGHERTY, Carlos A Hamilton\.br\Date and Time Signed: 01/29/24 14:50 EDT\.br\Electronically Co-Signed By: Alisson Saeed\.br\Date and Time Co-Signed: 01/29/24 14:46 EDT\.br\Electronically Co-Signed By: Alisson Saeed\.br\Date and Time Co-Signed: 01/29/24 14:47 EDT Basophils Auto (Bld) [#/Vol] on 01-16-2024 Basophils (Bld) [#/Vol] 0.0 10 3/uL 0.0-0.1 [facility] Basophils/100 WBC Auto (Bld) on 01-16-2024 Basophils/100 WBC (Bld) 0.8 % 0.2-2.0 [facility] Eosinophils/100 WBC Auto (Bl d)on 01-16-2024 Eosinophils/100 WBC (Bld) 1.5 % 0.9-7.0 [facility] Erythrocyte distribution wid th Auto (RBC) [Ratio]on 01-16-2024 Erythrocyte distribution width (RBC) [Ratio] 13.0 % 11.0-15.0 [facility] Estimated glomerular filtrat ion rate (GFR) non- Americanon 01-16-2024 GFR/1.73 sq M.predicted among non-blacks MDRD (S/P/Bld) [Vol rate/Area] 56 mL/min/{1.73_m2} Low >=60 [facility] Hematocrit Auto (Bld) [Volum e fraction]on 01-16-2024 Hematocrit (Bld) [Volume fraction] 39.5 % Low 42.0-54.0 [facility] Hemoglobin [Mass/volume] in Bloodon 01-16-2024 Hemoglobin (Bld) [Mass/Vol] 13.3 g/dL Low 14.0-18.0 [facility] Laboratory - Chemistry and C hemistry - challengeon 01-16-2024 Calcium [Mass/Vol] 9.1 mg/dL 8.5-10.1 [facility] Chloride [Moles/Vol] 100 mmol/L 98-107 [facility] CO2 [Moles/Vol] 32.5 mmol/L High 21.0-32.0 [facility] Creatinine [Mass/Vol] 1.23 mg/dL 0.70-1.30 [facility] GFR/1.73 sq M.predicted MDRD (S/P/Bld) [Vol rate/Area] mL/min/{1.73_m2} >=60 [facility] Glucose [Mass/Vol] 244 mg/dL High 74-106 [facility] Potassium [Moles/Vol] 4.7 mmol/L 3.5-5.1 [facility] Sodium [Moles/Vol] 137 mmol/L 136-145 [facility] Urea nitrogen [Mass/Vol] 15.0 mg/dL 7.0-18.0 [facility] Urea nitrogen/Creatinine [Mass ratio] 12.2 mg/mg [facility] - Hematology and Cell countson 01-16-2024 Immature granulocytes/100 WBC (Bld) 0.2 % 0.0-0.5 [facility] - Urinalysison Protein (U) [Mass/Vol] 32.8 mg/dL High <=11.9 [facility] Leukocytes [#/volume] correc layton for nucleated erythrocytes in Blood by Automated counon 01-16-2024 WBC corrected for nucl RBC Auto (Bld) [#/Vol] 4.8 10 3/uL 4.0-11.0 [facility] Lymphocytes Auto (Bld) [#/Vo l]on 01-16-2024 Lymphocytes (Bld) [#/Vol] 0.9 10 3/uL Low 1.2-3.8 [facility] Lymphocytes/100 WBC Auto (Bl d)on 01-16-2024 Lymphocytes/100 WBC (Bld) 17.7 % Low 20.5-60.0 [facility] MCH Auto (RBC) [Entitic mass ]on 01-16-2024 MCH (RBC) [Entitic mass] 32.8 pg 25.9-34.0 [facility] MCHC Auto (RBC) [Mass/Vol]on 01-16-2024 MCHC (RBC) [Mass/Vol] 33.7 g/dL 29.9-35.2 [facility] MCV Auto (RBC) [Entitic vol] on 01-16-2024 MCV (RBC) [Entitic vol] 97.3 fL High 80.0-94.0 [facility] Monocytes Auto (Bld) [#/Vol] on 01-16-2024 Monocytes (Bld) [#/Vol] 0.4 10 3/uL 0.3-0.8 [facility] Monocytes/100 WBC Auto (Bld) on 01-16-2024 Monocytes/100 WBC (Bld) 9.2 % 1.7-12.0 [facility] Neutrophils Auto (Bld) [#/Vo l]on 01-16-2024 Neutrophils (Bld) [#/Vol] 3.4 10 3/uL 1.4-6.5 [facility] Neutrophils/100 WBC Auto (Bl d)on 01-16-2024 Neutrophils/100 WBC (Bld) 70.6 % 43.0-75.0 [facility] No Panel Informationon 01-15 Eosinophils # (Auto) 0.1 10 3/uL 0.0-0.7 [facility] Immature Granulocyte # (Auto) 0.01 10 3/uL 0.00-0.03 [facility] Urine Random Creatinine 117.34 mg/dL 20.0 0-300. 00 [facility] Platelet mean volume Auto (B ld) [Entitic vol]on 01-16-2024 Platelet mean volume (Bld) [Entitic vol] 9.5 fL 9.5-13.5 [facility] Platelets Auto (Bld) [#/Vol] on 01-16-2024 Platelets (Bld) [#/Vol] 123 10 3/uL Low 150-450 [facility] RBC Auto (Bld) [#/Vol]on RBC (Bld) [#/Vol] 4.06 10 6/uL Low 4.70-6.10 [facility] Serum or plasma anion gap de terminationon 01-16-2024 Anion gap [Moles/Vol] 9.2 mmol/L [facility] Urine protein/creatinine rat ioon 01-16-2024 Protein/Creatinine (U) [Ratio] 0.28 [facility] Albumin [Mass/volume] in Ser um or Plasmaon 12-19-2023 Albumin [Mass/Vol] 3.9 g/dL 2.9-4.4 [facility] Basophils Auto (Bld) [#/Vol] on 12-19-2023 Basophils (Bld) [#/Vol] 0.0 10 3/uL 0.0-0.1 [facility] Basophils/100 WBC Auto (Bld) on 12-19-2023 Basophils/100 WBC (Bld) 0.6 % 0.2-2.0 [facility] Eosinophils/100 WBC Auto (Bl d)on 12-19-2023 Eosinophils/100 WBC (Bld) 1.1 % 0.9-7.0 [facility] Erythrocyte distribution wid th Auto (RBC) [Ratio]on 12-19-2023 Erythrocyte distribution width (RBC) [Ratio] 12.9 % 11.0-15.0 [facility] Estimated glomerular filtrat ion rate (GFR) non- Americanon 12-19-2023 GFR/1.73 sq M.predicted among non-blacks MDRD (S/P/Bld) [Vol rate/Area] 43 mL/min/{1.73_m2} >=60 [facility] Globulin Calc (S) [Mass/Vol] on 12-19-2023 Globulin (S) [Mass/Vol] 3.1 g/dL [facility] Glucose mean value [Mass/vol ume] in Blood Estimated from glycated hemoglobinon 12-19-2023 Average glucose Estimated from glycated hemoglobin (Bld) [Mass/Vol] 166 mg/dL [facility] Hematocrit Auto (Bld) [Volum e fraction]on 12-19-2023 Hematocrit (Bld) [Volume fraction] 38.3 % 42.0-54.0 [facility] Hemoglobin [Mass/volume] in Bloodon 12-19-2023 Hemoglobin (Bld) [Mass/Vol] 12.3 g/dL 14.0-18.0 [facility] IgA [Mass/volume] in Serum o r Plasmaon 12-19-2023 IgA [Mass/Vol] 112 mg/dL 61-437 [facility] IgG [Mass/volume] in Serum o r Plasmaon 12-19-2023 IgG [Mass/Vol] 805 mg/dL 603-1613 [facility] IgM [Mass/volume] in Serum o r Plasmaon 12-19-2023 IgM [Mass/Vol] 48 mg/dL 15-143 [facility] Immunoglobulin light chains. kappa.free [Mass/volume] in Serumon 12-19-2023 Immunoglobulin light chains.kappa.free (S) [Mass/Vol] 33.8 mg/L 3.3-19.4 [facility] Immunoglobulin light chains. kappa.free/Immunoglobulin light chains.lambda.free [Sandra 12-19-2023 Immunoglobulin light chains.kappa.free/Immun oglobulin light chains.lambda.free (S) [Mass ratio] 1.61 0.26-1.65 [facility] Comment on above: Performed at: [address] [id number] Director: Juan José Butler PhD, Phone: [phone] Immunoglobulin light chains. lambda.free [Mass/volume] in Serum or Plasmaon 12-19-2023 Immunoglobulin light chains.lambda.free [Mass/Vol] 21.0 mg/L 5.7-26.3 [facility] Iron binding capacity [Mass/ volume] in Serum or Plasmaon 12-19-2023 Iron binding capacity [Mass/Vol] 294.0 ug/dL 250.0-450. 0 [facility] Iron saturation [Mass Fracti on] in Serum or Plasmaon 12-19-2023 Iron saturation [Mass fraction] 26.9 % [facility] - Chemistry and C hemistry - challengeon 12-19-2023 Albumin [Mass/Vol] 3.4 g/dL 3.4-5.0 [facility] ALP [Catalytic activity/Vol] 88 U/L 46-116 [facility] ALT [Catalytic activity/Vol] 36 U/L 16-63 [facility] AST [Catalytic activity/Vol] 14 U/L 15-37 [facility] Bilirubin [Mass/Vol] 0.3 mg/dL 0.2-1.0 [facility] Calcium [Mass/Vol] 9.3 mg/dL 8.5-10.1 [facility] Chloride [Moles/Vol] 102 mmol/L 98-107 [facility] CO2 [Moles/Vol] 31.6 mmol/L 21.0-32.0 [facility] Cobalamin (Vitamin B12) [Mass/Vol] 386.0 pg/mL 193.0-986. 0 [facility] Creatinine [Mass/Vol] 1.55 mg/dL 0.70-1.30 [facility] Ferritin [Mass/Vol] 94.0 ng/mL 26.0-388.0 [facility] GFR/1.73 sq M.predicted MDRD (S/P/Bld) [Vol rate/Area] 52 mL/min/{1.73_m2} >=60 [facility] Glucose [Mass/Vol] 217 mg/dL 74-106 [facility] Iron [Mass/Vol] 79.0 ug/dL 65.0-175.0 [facility] Potassium [Moles/Vol] 5.0 mmol/L 3.5-5.1 [facility] Protein [Mass/Vol] 6.5 g/dL 6.4-8.2 [facility] Sodium [Moles/Vol] 141 mmol/L 136-145 [facility] TSH Qn 0.974 m[IU]/L 0.358-3.74 0 [facility] Urea nitrogen [Mass/Vol] 21.0 mg/dL 7.0-18.0 [facility] Urea nitrogen/Creatinine [Mass ratio] 13.5 mg/mg [facility] - Hematology and Cell countson 12-19-2023 HbA1c (Bld) [Mass fraction] 7.4 % 4.5-6.2 [facility] Comment on above: ADA RECOMMENDED LIMI T 4.0 - 6.0ADA THERAPEUTIC TARGET < 7.0ACTION SUGGESTED> 7.0 Immature granulocytes/100 WBC (Bld) 0.2 % 0.0-0.5 [facility] Leukocytes [#/volume] correc layton for nucleated erythrocytes in Blood by Automated counon 12-19-2023 WBC corrected for nucl RBC Auto (Bld) [#/Vol] 5.4 10 3/uL 4.0-11.0 [facility] Lymphocytes Auto (Bld) [#/Vo l]on 12-19-2023 Lymphocytes (Bld) [#/Vol] 1.1 10 3/uL 1.2-3.8 [facility] Lymphocytes/100 WBC Auto (Bl d)on 12-19-2023 Lymphocytes/100 WBC (Bld) 20.0 % 20.5-60.0 [facility] MCH Auto (RBC) [Entitic mass ]on 12-19-2023 MCH (RBC) [Entitic mass] 32.0 pg 25.9-34.0 [facility] MCHC Auto (RBC) [Mass/Vol]on 12-19-2023 MCHC (RBC) [Mass/Vol] 32.1 g/dL 29.9-35.2 [facility] MCV Auto (RBC) [Entitic vol] on 12-19-2023 MCV (RBC) [Entitic vol] 99.7 fL 80.0-94.0 [facility] Monocytes Auto (Bld) [#/Vol] on 12-19-2023 Monocytes (Bld) [#/Vol] 0.5 10 3/uL 0.3-0.8 [facility] Monocytes/100 WBC Auto (Bld) on 12-19-2023 Monocytes/100 WBC (Bld) 9.2 % 1.7-12.0 [facility] Neutrophils Auto (Bld) [#/Vo l]on 12-19-2023 Neutrophils (Bld) [#/Vol] 3.7 10 3/uL 1.4-6.5 [facility] Neutrophils/100 WBC Auto (Bl d)on 12-19-2023 Neutrophils/100 WBC (Bld) 68.9 % 43.0-75.0 [facility] No Panel Informationon 12-18 C-Reactive Protein, Quantitative <0.50 mg/dL <=0.50 [facility] Eosinophils # (Auto) 0.1 10 3/uL 0.0-0.7 [facility] Folate 22.10 ng/mL 8.60-58.90 [facility] Immature Granulocyte # (Auto) 0.01 10 3/uL 0.00-0.03 [facility] Protein Electrophoresis M-Delfino Not Observed g/dL Not Observed [facility] Protein Electrophoresis Note Comment . [facility] Comment on above: Protein electrophore sis scan will follow via computer,mail, or elevator service technician delivery. Platelet mean volume Auto (B ld) [Entitic vol]on 12-19-2023 Platelet mean volume (Bld) [Entitic vol] 9.6 fL 9.5-13.5 [facility] Platelets Auto (Bld) [#/Vol] on 12-19-2023 Platelets (Bld) [#/Vol] 136 10 3/uL 150-450 [facility] Protein [Mass/volume] in Ser um or Plasmaon 12-19-2023 Protein [Mass/Vol] 6.2 g/dL 6.0-8.5 [facility] RBC Auto (Bld) [#/Vol]on RBC (Bld) [#/Vol] 3.84 10 6/uL 4.70-6.10 [facility] Serum globulin measurement ( mass/volume)on 12-19-2023 Globulin (S) [Mass/Vol] 2.3 g/dL 2.2-3.9 [facility] Serum or plasma albumin/glob ulin mass ratioon 12-19-2023 Albumin/Globulin [Mass ratio] 1.1 {ratio} [facility] Albumin/Globulin [Mass ratio] 1.7 {ratio} 0.7-1.7 [facility] Serum or plasma alpha 1 glob ulin measurement by electrophoresis (mass/volume)on 12-19-2023 Alpha 1 globulin Elph [Mass/Vol] 0.2 g/dL 0.0-0.4 [facility] Serum or plasma alpha 2 glob ulin measurement by electrophoresis (mass/volume)on 12-19-2023 Alpha 2 globulin Elph [Mass/Vol] 0.6 g/dL 0.4-1.0 [facility] Serum or plasma anion gap de terminationon 12-19-2023 Anion gap [Moles/Vol] 12.4 mmol/L [facility] or plasma beta globuli n measurement by electrophoresis (mass/volume)on 12-19-2023 Beta globulin Elph [Mass/Vol] 0.8 g/dL 0.7-1.3 [facility] Serum or plasma gamma globul in measurement by electrophoresis (mass/volume)on 12-19-2023 Gamma globulin Elph [Mass/Vol] 0.7 g/dL 0.4-1.8 [facility] Serum or plasma immunoelectr ophoresis interpretationon 12-19-2023 Interpretation IEP [Interp] Comment . [facility] Comment on above: No monoclonality det ected. [...] in adult Healthy Weight Tips; Status:Complete; Done: [id number] Some eating tips that can help you lose weight.; Status:Complete; Done: [id number] Diabetes Hemoglobin A1C; Status:Canceled; Hyperlipidemia ALT - [...] Myocardial perfusion study Chief Complaint JOSE L AMES is being seen for a 6 month [...] today sinus rhythm 85 first-degree AV block MD interval 218 ms compared to EKG of 09/05/2022 heart rate has decreased. 1 Uses cane as ambulatory aid, no falls Surgical History Problems History of Arm surgery History of Cataract surgery History of Colon surgery History of Complete colonoscopy History of Tonsillectomy Current Meds Medication NameInstruction Acetaminophen 325 MG Or (more content not included)... Normal [employer] Tobacco Screening.on 023 Fall risk assessment a) No falls within the last year [facility] Heart-Sandu tammy 250 DO Work Phone: Tobacco use status [facility] b) No [facility] Skem[employer]-Gamar 250 DO Work Phone: Office Visit (Cardiology)on [...] 2022 3:05 PM ESTChief Complaint JOSE L AMES is being seen for testing results. History [...] was prompted by a hospital stay at [facility]. Patient was admitted in transfer from [facility], with hypoxemia cough congestion, treated for [...] Glucose Klor- (more content not included)... Normal [employer] Tobacco Screening.on 023 Adult depression screening assessment No [facility] [employer] 250 DO Work Phone: Fall risk assessment a) No falls within the last year [facility] [employer] [facility] 250 DO Work Phone: Tobacco use status CPHS b) No [facility] [employer] [facility] DO Work Phone: [facility] CARDIAC STRESS/REST INJE CTIONon 12-11-2022 [facility] CARDIAC STRESS/REST INJECTION Patient Name: JOSE L AMES STUDY: MYOCARDIAL PERFUSION STRESS TEST WITH LEXISCAN Performing facility: [facility], [address] [place] [address], [address] Provider: Cathleen Lopez MD, [facility] PCP: Dr. 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 Diabetes; High Cholesterol; HTN; SOB; COPD; Quit smoking 2 years ago. COMPARISON: No comparison. ACCESSION NUMBER(S): [id number]; [id number]; [id number] ORDERING CLINICIAN: CATHLEEN LOPEZ TECHNIQUE: ONE DAY [...] are available for comparison. Electronically signed by: VIET HALL MD Normal [facility] No Panel Informationon 12-11 Normal -[facility] [employer] 250 DO Work Phone: Office Visit (Cardiology)on [...] after testing completed Chief Complaint JOSE L AMES is being seen for CAD referral S/P [facility]. History of Present Illness 82-year-old with multiple cardiac risk factors is being seen in cardiology consultation at the request of Dr. Alejandro for evaluation of coronary artery disease. Patient ambulates with the help of a cane, and is very careful to avoid falls. 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 Accompanied by to the office. All medications so far are refilled by Dr. Alejandro. This cardiology consultation was prompted by a hospital stay at [facility]. Patient was admitted in transfer from [facility], with hypoxemia cough congestion, treated for [...] today sinus rhythm 85 first-degree AV block MD interval 218 ms compared to EKG of [...] further questions arise, Sincerely, Cathleen Lopez MD [facility] I told patient that he should bring his inhalers and use them prior to his perfusion study. Current (more content not included)... Normal [employer] Tobacco Screening.on 023 Adult depression screening assessment No [facility] [facility] 250 DO Work Phone: Fall risk assessment a) No falls within the last year [facility] [facility] 250 DO Work Phone: Tobacco use status CPHS b) No [facility] [employer] [facility] 250 DO Work Phone: CHEMISTRYOrdered By: Lab ROP User on 09-19-2022 Glucose [Mass/Vol] 110 mg/dL High 55 - 99 mg/dL [facility] POC Subsection Comment on above: Result Comment: Na ara Meter POC Device SN [id number] Invalid Interpretation Code [facility] POC Subsection POC User ID [id number] Invalid Interpretation Code [facility] POC Subsection POC Username LOULOU WRIGHT Invalid Interpretation Code [facility] POC Subsection Glucose [Mass/Vol] 93 mg/dL Normal 55 - 99 mg/dL [facility] POC Subsection Comment on above: Result Comment: [employer] POC Device SN [id number] Invalid Interpretation Code [facility] POC Subsection POC User ID [id number] Invalid Interpretation Code [facility] POC Subsection POC Username KRISTEN SHEPPARD Invalid Interpretation Code [facility] POC Subsection CHEMISTRYOrdered By: Lab ROP User on 09-18-2022 Glucose [Mass/Vol] 187 mg/dL High 55 - 99 mg/dL [facility] POC Subsection Comment on above: Result Comment: [employer] POC Device SN [id number] Invalid Interpretation Code [facility] POC Subsection POC User ID [id number] Invalid Interpretation Code [facility] POC Subsection POC Username KRISTEN SHEPPARD Invalid Interpretation Code [facility] POC Subsection CHEMISTRYOrdered By: SYSTEM SYSTEM on 09-17-2022 Anion gap [Moles/Vol] 14 mmol/L Normal 6 - 16 mEq/L [facility] Calcium [Mass/Vol] 8.8 mg/dL Low 8.9 - 11. 1 mg/dL [facility] Chloride [Moles/Vol] 97 mmol/L Low 101 - 1 11 mmol/L [facility] CO2 [Moles/Vol] 28 mmol/L Normal 21 - 31 mmol/L [facility] Creatinine [Mass/Vol] 1.3 mg/dL Normal 0.5 - 1.3 mg/dL [facility] GFR/1.73 sq M.predicted among blacks MDRD (S/P/Bld) [Vol rate/Area] mL/min/1.73 m2 Normal >=59mL/min /1.73 m2 [facility] Chem S GFR/1.73 sq M.predicted among non-blacks MDRD (S/P/Bld) [Vol rate/Area] 53 mL/min/1.73 m2 Low >=59mL/min /1.73 m2 [facility] Chem S Glucose [Mass/Vol] 89 mg/dL Normal 55 - 199 mg/dL [facility] Potassium [Moles/Vol] 4.2 mmol/L Normal 3.5 - 5.3 mmol/L [facility] Sodium [Moles/Vol] 135 mmol/L Normal 135 - 145 mmol/L [facility] Remisol Urea nitrogen [Mass/Vol] 20 mg/dL Normal 5 - 21 mg/dL [facility] Remisol Urea nitrogen/Creatinine [Mass ratio] 15 mg/mg Normal 10 - 20 [facility] Remisol CHEMISTRYOrdered By: Omkar Angel on 09-17-2022 HbA1c (Bld) [Mass fraction] 9.8 % High <=5.9% [facility] ChemAutoSS CHEMISTRYOrdered By: SYSTEM SYSTEM on 09-10-2022 Anion gap [Moles/Vol] 11 mmol/L Normal 6 - 16 mEq/L [facility] Remisol Calcium [Mass/Vol] 8.3 mg/dL Low 8.9 - 11. 1 mg/dL [facility] Remisol Chloride [Moles/Vol] 93 mmol/L Low 101 - 1 11 mmol/L [facility] Remisol CO2 [Moles/Vol] 32 mmol/L High 21 - 31 mmol/L [facility] Remisol Creatinine [Mass/Vol] 1.1 mg/dL Normal 0.5 - 1.3 mg/dL [facility] Remisol GFR/1.73 sq M.predicted among blacks MDRD (S/P/Bld) [Vol rate/Area] mL/min/1.73 m2 Normal >=59mL/min /1.73 m2 [facility] Chem S GFR/1.73 sq M.predicted among non-blacks MDRD (S/P/Bld) [Vol rate/Area] mL/min/1.73 m2 Normal >=59mL/min /1.73 m2 [facility] Chem S Glucose [Mass/Vol] 281 mg/dL High 55 - 199 mg/dL [facility] Remisol Potassium [Moles/Vol] 4.3 mmol/L Normal 3.5 - 5.3 mmol/L [facility] Remisol Sodium [Moles/Vol] 132 mmol/L Low 135 - 145 mmol/L [facility] Remisol Urea nitrogen [Mass/Vol] 24 mg/dL High 5 - 21 mg/dL [facility] Remisol Urea nitrogen/Creatinine [Mass ratio] 22 mg/mg High 10 - 20 [facility] Remisol HEMATOLOGYOrdered By: SYSTEM SYSTEM on 09-10-2022 [...] 30.5 pg Normal 27.0 - 34.0 pg [facility] HemeAutoSS MCHC (RBC) [Mass/Vol] 33.5 g/dL Normal 31.4 - 36.0 gm/dL [facility] HemeAutoSS MCV (RBC) [Entitic vol] 91.1 fL Normal 80.0 - 100.0 fL [facility] HemeAutoSS Platelet mean volume (Bld) [Entitic vol] 8.0 fL Normal 6.4 - 10.8 fL [facility] HemeAutoSS Platelets (Bld) [#/Vol] 218.0 E9/L Normal 150. 0 - 500.0 E9/L [facility] HemeAutoSS RBC (Bld) [#/Vol] 4.5 E12/L Normal 4.3 - 5.9 E12/L [facility] HemeAutoSS WBC corrected for nucl RBC Auto (Bld) [#/Vol] 6.3 E9/L Normal 4.0 - 11.0 E9/L [facility] HemeAutoSS COVID-19 SOFIAOrdered By: Ra daryl Velasquez on 09-08-2022 SARS-CoV+SARS-CoV-2 (COVID-19) Ag IA.rapid Ql (Resp) Negative Negative [facility] Comment on above: This is a duplicate Kyung SARS Antigen (DAVE) result to be used for statistical tracking purpose only. Creatinine and Glomerular fi ltration rate.predicted panel (S/P/Bld)Ordered By: Randolph Velasquez on 09-08-2022 Creatinine [Mass/Vol] 1.12 mg/dL 0.64-1.27 [facility] Estimated glomerular filtrat ion rate (GFR) non- AmericanOrdered By: Randolph Velasquez on 09-08-2022 GFR/1.73 sq M.predicted among non-blacks MDRD (S/P/Bld) [Vol rate/Area] > 60 mL/Min [facility] Glucose Glucometer (BldC) [M ass/Vol]Ordered By: Randolph Velasquez on 09-08-2022 Glucose [Mass/Vol] 342 mg/dL [facility] Comment on above: Random Glucose Refer ence Range is dependent on time and content of last meal. Glucose of more than 200 mg/dL in a nonstressed, ambulatory subject supports the diagnosis of Diabetes Mellitus. No Panel InformationOrdered By: Randolph Velasquez on 09-08-2022 SARS Antigen (LFIA) [facility] Estimated GFR () > 60 mL/Min [facility] Comment on above: GFR estimated refere nce range: According to KDOQI guidelines, <60 ml/min/1.73m2 is sufficient to diagnose a patient with chronic kidney disease. Pharmacy Creatinine Clearance (Chem 62.70 [facility] Serum or plasma anion gap de terminationOrdered By: Randolph Velasquez on 09-08-2022 Anion gap [Moles/Vol] 7.5 mmol/L 6.0-15.0 [facility] Serum or plasma calcium [place] urement (mass/volume)Ordered By: Randolph Velasquez on 09-08-2022 Calcium [Mass/Vol] 7.9 mg/dL 8.2-10.2 [facility] Serum or plasma chloride kathy surement (moles/volume)Ordered By: Randolph Velasquez on 09-08-2022 Chloride [Moles/Vol] 98 mmol/L 95-114 [facility] Serum or plasma glucose [place] urement (mass/volume)Ordered By: Randolph Velasquez on 09-08-2022 Glucose [Mass/Vol] 170 mg/dL 70-100 [facility] Comment on above: ADA recommended refe rence rangeRandom Glucose Reference Range is dependent on time and content of last meal. Glucose of more than 200 mg/dL in a nonstressed, ambulatory subject supports the diagnosis of Diabetes Mellitus. Serum or plasma potassium me asurement (moles/volume)Ordered By: Randolph Velasquez on 09-08-2022 Potassium [Moles/Vol] 3.4 mmol/L 3.5-5.1 [facility] Comment on above: Delta: 4.9 on Serum or plasma sodium measu rement (moles/volume)Ordered By: Randolph Velasquez on 09-08-2022 Sodium [Moles/Vol] 134 mmol/L 136-146 [facility] Serum or plasma total carbon dioxide measurement (moles/volume)Ordered By: Randolph Velasquez on 09-08-2022 CO2 [Moles/Vol] 31.9 mmol/L 22.0-30.0 [facility] Serum or plasma urea nitroge n measurement (mass/volume)Ordered By: Randolph Velasquez on 09-08-2022 Urea nitrogen [Mass/Vol] 22 mg/dL 9- [facility] Automated erythrocytes count in urine sediment (number/area)Ordered By: Randolph Velasquez on 09-07-2022 RBC Auto (Urine sed) [#/Area] Innumerable [HPF] 0-4 [facility] Automated leukocytes count i n urine sediment (number/area)Ordered By: Randolph Velasquez on 09-07-2022 WBC Auto (Urine sed) [#/Area] 1-2 [HPF] 0-4 [facility] Basophils Auto (Bld) [#/Vol] Ordered By: Randolph Velasquez on 09-07-2022 Basophils (Bld) [#/Vol] 0.0 10*3/uL 0.0-0.2 [facility] Basophils/100 WBC Auto (Bld) Ordered By: Randolph Velasquez on 09-07-2022 Basophils/100 WBC (Bld) 0.3 % . [facility] Bilirubin Test strip Ql (U)O rdered By: Randolph Velasquez on 09-07-2022 Bilirubin Ql (U) Negative Negative [facility] Color Auto (U)Ordered By: Ra daryl Velasquez on 09-07-2022 Color (U) Yellow Yellow [facility] Eosinophils Auto (Bld) [#/Vo l]Ordered By: Randolph Velasquez on 09-07-2022 Eosinophils (Bld) [#/Vol] 0.0 10*3/uL 0.0-0.45 [facility] Eosinophils/100 WBC Auto (Bl d)Ordered By: Randolph Velasquez on 09-07-2022 Eosinophils/100 WBC (Bld) 0.0 % . [facility] Erythrocyte distribution wid th Auto (RBC) [Ratio]Ordered By: Randolph Velasquez on 09-07-2022 Erythrocyte distribution width (RBC) [Ratio] 13.9 % 12.0-14.8 [facility] Hematocrit Auto (Bld) [Volum e fraction]Ordered By: Randolph Velasquez on 09-07-2022 Hematocrit (Bld) [Volume fraction] 38.6 % 38.8-50.0 [facility] Hemoglobin [Mass/volume] in BloodOrdered By: Randolph Velasquez on 09-07-2022 Hemoglobin (Bld) [Mass/Vol] 12.6 g/dL 13.0-17.0 [facility] Ketones Auto test strip (U) [Mass/Vol]Ordered By: Randolph Velasquez on 09-07-2022 Ketones (U) [Mass/Vol] Trace Negative Fi [facility] - UrinalysisOrder ed By: Randolph Velasquez on 09-07-2022 Hyaline casts LM Ql (Urine sed) 0-8 [LPF] 0-8 [facility] Leukocytes [#/volume] correc layton for nucleated erythrocytes in Blood by Automated counOrdered By: Randolph Velasquez on 09-07-2022 WBC corrected for nucl RBC Auto (Bld) [#/Vol] 13.0 10*3/uL 4.1-10.5 [facility] Lymphocytes Auto (Bld) [#/Vo l]Ordered By: Randolph Velasquez on 09-07-2022 Lymphocytes (Bld) [#/Vol] 0.5 10*3/uL 1.00-4.8 [facility] Lymphocytes/100 WBC Auto (Bl d)Ordered By: Randolph Velasquez on 09-07-2022 Lymphocytes/100 WBC (Bld) 3.6 % . [facility] MCH Auto (RBC) [Entitic mass ]Ordered By: Randolph Velasquez on 09-07-2022 MCH (RBC) [Entitic mass] 30.2 pg 27.5-35.2 [facility] MCHC Auto (RBC) [Mass/Vol]Or dered By: Randolph Velasquez on 09-07-2022 MCHC (RBC) [Mass/Vol] 32.7 g/dL 32.5-35.6 [facility] MCV Auto (RBC) [Entitic vol] Ordered By: Randolph Velasquez on 09-07-2022 MCV (RBC) [Entitic vol] 92.1 fL 83.5-101 [facility] Monocytes Auto (Bld) [#/Vol] Ordered By: Randolph Velasquez on 09-07-2022 Monocytes (Bld) [#/Vol] 0.6 10*3/uL 0.0-0.8 [facility] Monocytes/100 WBC Auto (Bld) Ordered By: Randolph Velasquez on 09-07-2022 Monocytes/100 WBC (Bld) 4.5 % . [facility] Neutrophils Auto (Bld) [#/Vo l]Ordered By: Randolph Velasquez on 09-07-2022 Neutrophils (Bld) [#/Vol] 11.9 10*3/uL 1.8-7.7 [facility] Neutrophils/100 WBC Auto (Bl d)Ordered By: Randolph Velasquez on 09-07-2022 Neutrophils/100 WBC (Bld) 91.6 % . [facility] Nitrite Test strip Ql (U)Ord ered By: Randolph Velasquez on 09-07-2022 Nitrite Ql (U) Negative Negative [facility] No Panel InformationOrdered By: Randolph Velasquez on 09-07-2022 Bedside Glucose #2 Comment Cleaned meter [facility] Bedside Glucose Comment See comment [facility] Comment on above: Glu2: Will Repeat Te st Nucleated erythrocytes [Pres ence] in Blood by Automated countOrdered By: Randolph Velasquez on 09-07-2022 Nucleated RBC Auto Ql (Bld) 0.0 /100{WBC} 0-0.5 [facility] Platelet adequacy [Presence] in Blood by Light microscopyOrdered By: Randolph Velasquez on 09-07-2022 Platelets LM Ql (Bld) Normal Normal [facility] Platelet mean volume Auto (B ld) [Entitic vol]Ordered By: Randolph Velasquez on 09-07-2022 Platelet mean volume (Bld) [Entitic vol] 8.3 fL 6.6-10.1 [facility] Platelet morphology finding [Identifier] in BloodOrdered By: Randolph Velasquez on 09-07-2022 Platelet morphology finding Nom (Bld) Normal Normal [facility] Platelets Auto (Bld) [#/Vol] Ordered By: Randolph Velasquez on 09-07-2022 Platelets (Bld) [#/Vol] 227 10*3/uL 150-450 [facility] Protein Auto test strip (U) [Mass/Vol]Ordered By: Randolph Velasquez on 09-07-2022 Protein (U) [Mass/Vol] 100 mg/dL Negative [facility] RBC Auto (Bld) [#/Vol]Ordere d By: Randolph Velasquez on 09-07-2022 RBC (Bld) [#/Vol] 4.19 10*6/uL 3.90-5.60 [facility] RBC morphologyOrdered By: Ra daryl Velasquez on 09-07-2022 RBC morphology finding Nom (Bld) Normal Normal [facility] Specific gravity Auto test s trip (U) [Rel density]Ordered By: Randolph Velasquez on 09-07-2022 Specific gravity (U) [Rel density] 1.030 1.001-1.03 0 [facility] Squamous epithelial cells de tection in urine sediment by light microscopyOrdered By: Randolph Velasquez on 09-07-2022 Epithelial cells.squamous LM Ql (Urine sed) None seen [HPF] 0-2 [facility] Urine bacteria detection by automated methodOrdered By: Randolph Velasquez on 09-07-2022 Bacteria Auto Ql (U) None seen None Seen [facility] Urine clarity by refractomet ry automatedOrdered By: Randolph Velasquez on 09-07-2022 Clarity Refractometry automated (U) Clear Clear [facility] Urine glucose measurement by automated test strip (mass/volume)Ordered By: Randolph Velasquez on 09-07-2022 Glucose Auto test strip (U) [Mass/Vol] >=1000 mg/dL Normal [facility] Urine hemoglobin detection b y automated test stripOrdered By: Randolph Velasquez on 09-07-2022 Hemoglobin Auto test strip Ql (U) 3+ Negative [facility] Urine leukocyte esterase det ection by automated test stripOrdered By: Randolph Velasquez on 09-07-2022 Leukocyte esterase Auto test strip Ql (U) 1+ Negative [facility] Urobilinogen Auto test strip (U) [Mass/Vol]Ordered By: Randolph Velasquez on 09-07-2022 Urobilinogen (U) [Mass/Vol] Normal mg/dL Normal [facility] WBC Auto (Bld) [#/Vol]Ordere d By: Randolph Velasquez on 09-07-2022 WBC (Bld) [#/Vol] 13.0 10*3/uL 4.1-10.5 [facility] pH Auto test strip (U)Ordere d By: Randolph Velasquez on 09-07-2022 pH (U) 5.5 [pH] 5.0-9.0 [facility] Band form neutrophils/100 WB C Manual cnt (Bld)Ordered By: Lakesha Haskins on 09-05-2022 Band form neutrophils/100 WBC (Bld) 17 % 0-5 [facility] Basophils/100 WBC Manual cnt (Bld)Ordered By: Lakesha Haskins on 09-05-2022 Basophils/100 WBC (Bld) 0 % 0-2 [facility] Eosinophils/100 WBC Manual c nt (Bld)Ordered By: Lakesha Haskins on 09-05-2022 Eosinophils/100 WBC (Bld) 0 % 1-3 [facility] Laboratory - Chemistry and C hemistry - challengeOrdered By: Randolph Velasquez on 09-05-2022 CO2 [Moles/Vol] 25.3 mmol/L 23.0-27.0 [facility] HCO3 (Bld) [Moles/Vol] 24.1 mmol/L 23.0-29.0 [facility] Lymphocytes/100 WBC Manual c nt (Bld)Ordered By: Lakesha Haskins on 09-05-2022 Lymphocytes/100 WBC (Bld) 8 % 18-42 [facility] Metamyelocytes/100 WBC Manua l cnt (Bld)Ordered By: Lakesha Haskins on 09-05-2022 Metamyelocytes/100 WBC (Bld) 1 % 0-0 [facility] Monocytes/100 WBC Manual cnt (Bld)Ordered By: Lakesha Haskins on 09-05-2022 Monocytes/100 WBC (Bld) 8 % 2-11 [facility] No Panel InformationOrdered By: Randolph Velasquez on 09-05-2022 Arterial Blood Base Excess 0.3 mmol/L -3.0-3.0 [facility] Arterial Blood Oxygen Content 8.3 mmol/L 6.6-9.7 [facility] Arterial Blood Oxygen Saturation 95.6 % 95.0-100.0 [facility] Arterial Blood Partial Pressure CO2 36.7 mm[Hg] 35.0-45.0 [facility] Arterial Blood Partial Pressure O2 75.3 mm[Hg] 80.0-100.0 [facility] Arterial Blood pH 7.44 7.35-7.45 [facility] Blood Gas Critical Value See comment [facility] Comment on above: Critical Value coles d on: 09/05/2022 at 11:59 Blood Gas Liter Flow 2 L/min [facility] Blood Gas Sample Site Right brachial [facility] FiO2 32 % [facility] Oxygen Delivery Device Nasal cannula [facility] Segmented neutrophils/100 WB C Manual cnt (Bld)Ordered By: Lakesha Haskins on 09-05-2022 Segmented neutrophils/100 WBC (Bld) 66 % 50-70 [facility] Troponin I.cardiac [Mass/vol ume] in Serum or Plasma by High sensitivity methodOrdered By: Lakesha Haskins on 09-05-2022 Troponin I.cardiac High sensitivity method [Mass/Vol] 97 pg/mL 0-20 [facility] Comment on above: Results calledat 064 0 on 09/05/22 ACETONE SERUMon 09-04-2022 ACETONE Negative Normal NEGATIVE [facility] Comment on above: Performed By: #### A CETON #### [facility] [address] [place] [address] Dr. Luis Manuel Asher BNPon 09-04-2022 Natriuretic peptide B (Bld) [Mass/Vol] 1464.0 pg/mL Normal <=1,800.0 [facility] Comment on above: Performed By: #### V ITAD #### [facility] [address] [place] [address] Dr. Luis Manuel Asher CBC W MANUAL DIFFon 09-04-19 23 ATYPICAL LYMPH # Normal [facility] Comment on above: Performed By: #### C BCMAN #### [facility] [address] [place] [address] Dr. Luis Manuel Asher ATYPICAL LYMPH % Normal [facility] Comment on above: Performed By: #### C BCMAN #### [facility] [address] [place] [address] Dr. Luis Manuel Asher BAND # 0.7 103/ul Critically high 0.0-0.3 [facility] Comment on above: Performed By: #### C BCMAN #### [facility] [address] [place] [address] Dr. Luis Manuel Asher BAND % 6 % Critically high 0-5 [facility] Comment on above: Performed By: #### C BCMAN #### [facility] [address] [place] [address] Dr. Luis Manuel Asher BASOM # 0.00 103/ul Normal 0.00-0.10 [facility] Comment on above: Performed By: #### C BCMAN #### [facility] [address] [place] [address] Dr. Luis Manuel Asher BASOM % 0.0 % Critically low 0.2-2.0 [facility] Comment on above: Performed By: #### C BCMAN #### [facility] [address] [place] [address] Dr. Luis Manuel Asher BLAST # Normal [facility] Comment on above: Performed By: #### C BCYAMILETH #### [facility] [address] [place] [address] Dr. Luis Manuel Asher BLAST % Normal [facility] Comment on above: Performed By: #### C BCYAMILETH #### [facility] [address] [place] [address] Dr. Luis Manuel Asher CORRECTED WBC Normal 4.0-11.0 [facility] Comment on above: Performed By: #### C BCYAMILETH #### [facility] [address] [place] [address] Dr. Luis Manuel Asher EOS # 0.00 103/ul Normal 0.00-0.70 [facility] Comment on above: Performed By: #### C BCMAN #### [facility] [address] [place] [address] Dr. Luis Manuel Asher EOS% 0.0 % Critically low 0.9-7.0 [facility] Comment on above: Performed By: #### C BCMAN #### [facility] [address] [place] [address] Dr. Luis Manuel Asher HCT 41.3 % Critically low 42.0-54.0 [facility] Comment on above: Performed By: #### C SANTOS #### [facility] [address] [address] [address] Luis Manuel Asher HGB 13.6 g/dl Critically low 14.0-18.0 [facility] Comment on above: Performed By: #### C SANTOS #### [facility] [address] [address] [address] Luis Manuel Asher LYMPHM # 0.79 103/ul Critically low 1.20-3.80 [facility] Comment on above: Performed By: #### C SANTOS #### [facility] [address] [address] [address] Luis Manuel Asher LYMPHM% 7.0 % Critically low 20.5-60.0 [facility] Comment on above: Performed By: #### C SANTOS #### [facility] [address] [place] [address] Dr. Luis Manuel Asher MCH 30.4 pg Normal 25.9-34.0 [facility] Comment on above: Performed By: #### C SANTOS #### [facility] [address] [place] [address] Dr. Luis Manuel Asher MCHC 32.9 g/dl Normal 29.9-35.2 [facility] Comment on above: Performed By: #### C SANTOS #### [facility] [address] [place] [address] Dr. Luis Manuel Asher MCV 92.2 fL Normal 80.0-94.0 [facility] Comment on above: Performed By: #### C SANTOS #### [facility] [address] [place] [address] Dr. Luis Manuel Asher METAMYELOCYTE # Normal [facility] Comment on above: Performed By: #### C SANTOS #### [facility] [address] [place] [address] Dr. Luis Manuel Asher METAMYELOCYTE % Normal [facility] Comment on above: Performed By: #### C SANTOS #### [facility] [address] [place] [address] Dr. Luis Manuel Asher MONOM# 1.36 103/ul Critically high 0.30-0.80 [facility] Comment on above: Performed By: #### C SHIRAMAN #### [facility] [address] [place] [address] Dr. Luis Manuel Asher MONOM% 12.0 % Normal 1.7-12.0 [facility] Comment on above: Performed By: #### C BCYAMILETH #### [facility] [address] [place] [address] Dr. Luis Manuel Asher MPV 10.0 fL Normal 9.5-13.5 [facility] Comment on above: Performed By: #### C BCMAN #### [facility] [address] [place] [address] Dr. Luis Manuel Asher MYELOCYTE # Normal [facility] Comment on above: Performed By: #### C SANTOS #### [facility] [address] [place] [address] Dr. Luis Manuel Asher MYELOCYTE % Normal [facility] Comment on above: Performed By: #### C SANTOS #### [facility] [address] [place] [address] Dr. Luis Manuel Asher NRBC Normal [facility] Comment on above: Performed By: #### C SANTOS #### [facility] [address] [place] [address] Dr. Luis Manuel Asher PLT 251 103/ul Normal 150-450 [facility] Comment on above: Performed By: #### C SANTOS #### [facility] [address] [place] [address] Dr. Luis Manuel Asher RBC 4.48 106/ul Critically low 4.70-6.10 [facility] Comment on above: Performed By: #### C BCYAMILETH #### [facility] [address] [place] [address] Dr. Luis Manuel Asher RDW 13.4 % Normal 11.0-15.0 [facility] Comment on above: Performed By: #### C SANTOS #### [facility] [address] [place] [address] Dr. Luis Manuel Asher SEG # 8.47 103/ul Critically high 1.40-6.50 [facility] Comment on above: Performed By: #### C BCMAN #### [facility] [address] [place] [address] Dr. Luis Manuel Asher SEG % 75.0 % Normal 43.0-75.0 [facility] Comment on above: Performed By: #### C BCMAN #### [facility] [address] [address] [address] Luis Manuel Asher WBC 11.3 103/ul Critically high 4.0-11.0 [facility] Comment on above: Performed By: #### C BCMAN #### [facility] [address] [address] [address] Luis Manuel Asher CULTURE BLOODon 09-04-2022 Microscopic examination of blood, culture Culture Observations: NO GROWTH AT 5 DAYS. Normal [facility] Comment on above: Performed By: #### V ITAD #### [facility] [address] [place] [address] Dr. Luis Manuel Asher Microscopic examination of blood, culture Culture Observations: NO GROWTH AT 5 DAYS. Normal [facility] Comment on above: Performed By: #### V ITAD #### [facility] [address] [place] [address] Dr. Luis Manuel Asher Covid-19 PCR (CVDTB)on SARS-CoV-2 (COVID-19) RNA ABE+probe Ql (Unsp spec) Not detected Normal NOT DETECTED [facility] Comment on above: Result Comment: When [...] for this test is supported by the [place] of [employer] and Human Service's declaration that [...] used). Performed By: #### V ITAD #### [facility] [address] [place] [address] Dr. Luis Manuel Asher INFLUENZA A AND B AGon 09-04 INFLUANE SEE BELOW Normal [facility] Comment on above: Result Comment: Nega tive for Flu A protein angiten. Infection due to Flu A cannot be ruled out. Flu A angiten in the sample may be below the detection limit of the test. Performed By: #### A CETON #### [facility] [address] [place] [address] Dr. Luis Manuel As[facility] Normal [facility] Comment on above: Result Comment: Nega tive for Flu B protein antigen. Infection due to Flu B cannot be ruled out. Flu B antigen in the sample may be below the detection limit of the test. Performed By: #### A CETON #### [facility] [address] [place] [address] Dr. Luis Manuel Asher INFLUENZA A AG Negative Normal NEGATIVE SEE COMMENT [facility] Comment on above: Performed By: #### A CETON #### [facility] [address] [place] [address] Dr. Luis Manuel Asher INFLUENZA B AG Negative Normal NEGATIVE SEE COMMENT [facility] Comment on above: Performed By: #### A CETON #### [facility] [address] [place] [address] Dr. Luis Manuel Asher LACTATE/LACTIC ACIDon 2022 Lactate [Moles/Vol] 4.0 mmol/L Critically high 0.4-1.9 [facility] Comment on above: Performed By: #### L ACT #### [facility] [address] [place] [address] Dr. Luis Manuel Asher Laboratory - Chemistry and C hemistry - challengeOrdered By: Lakesha Haskins on 09-04-2022 Natriuretic peptide B (Bld) [Mass/Vol] 200.0 pg/mL 5-100 [facility] Myelocytes/100 WBC Manual cn t (Bld)Ordered By: Lakesha Haskins on 09-04-2022 Myelocytes/100 WBC (Bld) 4 % 0-0 [facility] POINT OF CARE GLUCOSEon -0 Glucose [Mass/Vol] 362 mg/dL Critically high 74-106 [facility] Comment on above: Performed By: #### P OCGLUC #### [facility] [address] [address] [address] Luis Manuel Asher Glucose [Mass/Vol] 352 mg/dL Critically high 74-106 [facility] Comment on above: Performed By: #### V ITAD #### [facility] [address] [place] [address] Dr. Luis Manuel Asher PROF 14(COMP METB)on 023 Albumin [Mass/Vol] 2.6 g/dL Critically low 3.4-5.0 [facility] Comment on above: Performed By: #### V ITAD #### [facility] [address] [place] [address] Dr. Luis Manuel Asher Albumin/Globulin [Mass ratio] 0.5 {ratio} Normal [facility] Comment on above: Performed By: #### V ITAD #### [facility] [address] [place] [address] Dr. Luis Manuel Asher ALP [Catalytic activity/Vol] 163 U/L Critically high 46-116 [facility] Comment on above: Performed By: #### V ITAD #### [facility] [address] [address] [address] Luis Manuel Asher ALT [Catalytic activity/Vol] 98 U/L Critically high 16-63 [facility] Comment on above: Performed By: #### V ITAD #### [facility] [address] [place] [address] Dr. Luis Manuel Asher Anion gap [Moles/Vol] 14.9 mmol/L Normal [facility] Comment on above: Performed By: #### V ITAD #### [facility] [address] [place] [address] Dr. Luis Manuel Asher AST [Catalytic activity/Vol] 57 U/L Critically high 15-37 [facility] Comment on above: Performed By: #### V ITAD #### [facility] [address] [place] [address] Dr. Luis Manuel Asher Bilirubin [Mass/Vol] 0.4 mg/dL Normal 0.2-1.0 [facility] Comment on above: Performed By: #### V ITAD #### [facility] [address] [place] [address] Dr. Luis Manuel Asher Calcium [Mass/Vol] 9.4 mg/dL Normal 8.5-10.1 [facility] Comment on above: Performed By: #### V ITAD #### [facility] [address] [place] [address] Dr. Luis Manuel Asher Chloride [Moles/Vol] 100 mmol/L Normal 98-107 [facility] Comment on above: Performed By: #### V ITAD #### [facility] [address] [place] [address] Dr. Luis Manuel Asher CO2 [Moles/Vol] 27.2 mmol/L Normal 21.0-32.0 [facility] Comment on above: Performed By: #### V ITAD #### [facility] [address] [place] [address] Dr. Luis Manuel Asher Creatinine [Mass/Vol] 1.45 mg/dL Critically high 0.70-1.30 [facility] Comment on above: Performed By: #### V ITAD #### [facility] [address] [place] [address] Dr. Luis Manuel Asher EGFR-AF ETHIOPIAN 56 mL/min/1.73m2 Critically low >=60 [facility] Comment on above: Performed By: #### V ITAD #### [facility] [address] [place] [address] Dr. Luis Manuel Asher EGFR-NON AF ETHIOPIAN 46 mL/min/1.73m2 Critically low >=60 [facility] Comment on above: Performed By: #### V ITAD #### [facility] [address] [place] [address] Dr. Luis Manuel Asher Globulin (S) [Mass/Vol] 4.9 g/dL Normal [facility] Comment on above: Performed By: #### V ITAD #### [facility] [address] [place] [address] Dr. Luis Manuel Asher Glucose [Mass/Vol] 396 mg/dL Critically high 74-106 [facility] Comment on above: Performed By: #### V ITAD #### [facility] [address] [place] [address] Dr. Luis Manuel Asher Potassium [Moles/Vol] 4.1 mmol/L Normal 3.5-5.1 [facility] Comment on above: Performed By: #### V ITAD #### [facility] [address] [place] [address] Dr. Luis Manuel Asher Protein [Mass/Vol] 7.5 g/dL Normal 6.4-8.2 [facility] Comment on above: Performed By: #### V ITAD #### [facility] [address] [place] [address] Dr. Luis Manuel Asher Sodium [Moles/Vol] 138 mmol/L Normal 136-145 [facility] Comment on above: Performed By: #### V ITAD #### [facility] [address] [place] [address] Dr. Luis Manuel Asher Urea nitrogen [Mass/Vol] 26.0 mg/dL Critically high 7.0-18.0 [facility] Comment on above: Performed By: #### V ITAD #### [facility] [address] [place] [address] Dr. Luis Manuel Asher Urea nitrogen/Creatinine [Mass ratio] 17.9 mg/mg Normal [facility] Comment on above: Performed By: #### V ITAD #### [facility] [address] [place] [address] Dr. Luis Manuel Asher Plasma cells/100 leukocytes in Blood by Manual countOrdered By: Lakesha Haskins on 09-04-2022 Plasma cells/100 WBC Manual cnt (Bld) 1 % 0-0 [facility] Promyelocytes/100 WBC Manual cnt (Bld)Ordered By: Lakesha Haskins on 09-04-2022 Promyelocytes/100 WBC (Bld) 1 % 0-0 [facility] TROPONIN, HIGH SENSITIVITYon 09-04-2022 HSTROP 180.9 pg/mL Critically high 4.0-76.1 [facility] Comment on above: Result Comment: CUT- OFF POINTS HAVE BEEN ESTABLISHED BASED ON THE FOURTH UNIVERSAL DEFINITIONS OF MYOCARDIAL INFARCTION. THE UPPER REFERENCE LIMIT (URL) OF TROPONIN, DEFINED THE 99TH PERCENTILE OF cTnI DISTRIBUTION IN A REFERENCE POPULATION, HAS BEEN CONFIRMED THE DECISION THRESHOLD FOR MO DIAGNOSIS. Performed By: #### V ITAD #### [facility] [address] [place] [address] Dr. Luis Manuel Asher Urine lactic acid measuremen tOrdered By: Lakesha Haskins on 09-04-2022 Lactate (U) [Moles/Vol] 1.6 mmol/L 0.5-2.2 [facility] XR CHEST 1 Von 09-04-2022 XR CHEST 1 V ONE-VIEW CHEST RADIO GRAPH, 09/04/2022 4:55 PM EST COMPARISON: Chest, 11/02/2020. CLINICAL HISTORY: SHORTNESS OF BREATH/weakness and confusion. Findings and impression: 1. Some questionable interstitial pulmonary edema suspected. Some underlying inflammatory or infectious pneumonitis cannot be excluded. 2. Borderline heart size. 3. No acute osseous abnormality. Electronically authenticated by: Gael KENNEY Date: 2022-09-04 17:54 Normal [facility] MICROALBUMIN URINEon 022 Albumin, Urine 30.0 ug/mL Normal Not Estab. [facility] Comment on above: Performed By: #### A CETON #### [facility] [address] [place] [address] Dr. Luis Manuel Asher CBC AUTO DIFFon 04-24-2022 BASO # 0.0 103/ul Normal 0.0-0.1 [facility] Comment on above: Performed By: #### C BC #### [facility] [address] [place] [address] Dr. Luis Manuel sAher Basophils/100 WBC (Bld) 0.5 % Normal 0.2-2.0 [facility] Comment on above: Performed By: #### C BC #### [facility] [address] [place] [address] Dr. Luis Manuel Asher EO # 0.1 103/ul Normal 0.0-0.7 [facility] Comment on above: Performed By: #### C BC #### [facility] [address] [place] [address] Dr. Luis Manuel Asher Eosinophils/100 WBC (Bld) 1.4 % Normal 0.9-7.0 [facility] Comment on above: Performed By: #### C BC #### [facility] [address] [place] [address] Dr. Luis Manuel Asher Erythrocyte distribution width (RBC) [Ratio] 13.1 % Normal 11.0-15.0 [facility] Comment on above: Performed By: #### C BC #### [facility] [address] [place] [address] Dr. Luis Manuel Asher Hematocrit (Bld) [Volume fraction] 39.3 % Critically low 42.0-54.0 [facility] Comment on above: Performed By: #### C BC #### [facility] [address] [place] [address] Dr. Luis Manuel Asher Hemoglobin (Bld) [Mass/Vol] 13.3 g/dL Critically low 14.0-18.0 [facility] Comment on above: Performed By: #### C BC #### [facility] [address] [place] [address] Dr. Luis Manuel Asher IG # 0.02 10e3/ul Normal 0.00-0.03 [facility] Comment on above: Performed By: #### C BC #### [facility] [address] [place] [address] Dr. Luis Manuel Asher IG % 0.3 % Normal 0.0-0.5 [facility] Comment on above: Performed By: #### C BC #### [facility] [address] [place] [address] Dr. Luis Manuel Asher LYMPH # 0.6 103/ul Critically low 1.2-3.8 [facility] Comment on above: Performed By: #### C BC #### [facility] [address] [place] [address] Dr. Luis Manuel Asher Lymphocytes/100 WBC (Bld) 9.1 % Critically low 20.5-60.0 [facility] Comment on above: Performed By: #### C BC #### [facility] [address] [place] [address] Dr. Luis Manuel Asher MANUAL DIFF REQ NO Normal [facility] Comment on above: Performed By: #### C BC #### [facility] [address] [place] [address] Dr. Luis Manuel Asher MCH (RBC) [Entitic mass] 31.0 pg Normal 25.9-34.0 [facility] Comment on above: Performed By: #### C BC #### [facility] [address] [place] [address] Dr. Luis Manuel Asher MCHC (RBC) [Mass/Vol] 33.8 g/dL Normal 29.9-35.2 [facility] Comment on above: Performed By: #### C BC #### [facility] [address] [place] [address] Dr. Luis Manuel Asher MCV (RBC) [Entitic vol] 91.6 fL Normal 80.0-94.0 [facility] Comment on above: Performed By: #### C BC #### [facility] [address] [place] [address] Dr. Luis Manuel Asher MONO # 0.7 103/ul Normal 0.3-0.8 [facility] Comment on above: Performed By: #### C BC #### [facility] [address] [place] [address] Dr. Luis Manuel Asher Monocytes/100 WBC (Bld) 10.3 % Normal 1.7-12.0 [facility] Comment on above: Performed By: #### C BC #### [facility] [address] [place] [address] Dr. Luis Manuel Asher NEUT # 5.0 103/ul Normal 1.4-6.5 [facility] Comment on above: Performed By: #### C BC #### [facility] [address] [place] [address] Dr. Luis Manuel Asher Neutrophils/100 WBC (Bld) 78.4 % Critically high 43.0-75.0 [facility] Comment on above: Performed By: #### C BC #### [facility] [address] [address] [address] Luis Manuel Asher Platelet mean volume (Bld) [Entitic vol] 9.7 fL Normal 9.5-13.5 [facility] Comment on above: Performed By: #### C BC #### [facility] [address] [place] [address] Dr. Luis Manuel Asher PLT 148 103/ul Critically low 150-450 [facility] Comment on above: Performed By: #### C BC #### [facility] [address] [place] [address] Dr. Luis Manuel Asher RBC 4.29 106/ul Critically low 4.70-6.10 [facility] Comment on above: Performed By: #### C BC #### [facility] [address] [place] [address] Dr. Luis Manuel Asher WBC 6.4 103/ul Normal 4.0-11.0 [facility] Comment on above: Performed By: #### C BC #### [facility] [address] [place] [address] Dr. Luis Manuel Asher GLYCOHEMOGLOBIN A1Con 2021 ADA RECOMMENDATION SEE BELOW Normal [facility] Comment on above: Result Comment: ADA RECOMMENDED LIMIT 4.0 - 6.0 ADA THERAPEUTIC TARGET < 7.0 ACTION SUGGESTED > 7.0 Performed By: #### A CETON #### [facility] [address] [place] [address] Dr. Luis Manuel Asher Glucose [Mass/Vol] 169 mg/dL Normal [facility] Comment on above: Performed By: #### A CETON #### [facility] [address] [place] [address] Dr. Luis Manuel Asher HbA1c (Bld) [Mass fraction] 7.5 % Critically high 4.5-6.2 [facility] Comment on above: Performed By: #### A CETON #### [facility] [address] [address] [address] Luis Manuel Asher PROF CHEM 8 (BAS METB)on Anion gap [Moles/Vol] 7.8 mmol/L Normal [facility] Comment on above: Performed By: #### B MP #### [facility] [address] [address] [address] Luis Manuel Asher Calcium [Mass/Vol] 8.3 mg/dL Critically low 8.5-10.1 [facility] Comment on above: Performed By: #### B MP #### [facility] [address] [address] [address] Luis Manuel Asher Chloride [Moles/Vol] 97 mmol/L Critically low 98-107 [facility] Comment on above: Performed By: #### B MP #### [facility] [address] [place] [address] Dr. Luis Manuel Asher CO2 [Moles/Vol] 29.6 mmol/L Normal 21.0-32.0 [facility] Comment on above: Performed By: #### B MP #### [facility] [address] [place] [address] Dr. Luis Manuel Asher Creatinine [Mass/Vol] 1.36 mg/dL Critically high 0.70-1.30 [facility] Comment on above: Performed By: #### B MP #### [facility] [address] [place] [address] Dr. Luis Manuel Asher EGFR-AF ETHIOPIAN >60 Normal >=60 [facility] Comment on above: Performed By: #### B MP #### [facility] [address] [place] [address] Dr. Luis Manuel Asher EGFR-NON AF ETHIOPIAN 50 mL/min/1.73m2 Critically low >=60 [facility] Comment on above: Performed By: #### B MP #### [facility] [address] [place] [address] Dr. Luis Manuel Asher Glucose [Mass/Vol] 331 mg/dL Critically high 74-106 [facility] Comment on above: Performed By: #### B MP #### [facility] [address] [address] [address] Luis Manuel Asher Potassium [Moles/Vol] 4.4 mmol/L Normal 3.5-5.1 [facility] Comment on above: Performed By: #### B MP #### [facility] [address] [place] [address] Dr. Luis Manuel Asher Sodium [Moles/Vol] 130 mmol/L Critically low 136-145 [facility] Comment on above: Performed By: #### B MP #### [facility] [address] [place] [address] Dr. Luis Manuel Asher Urea nitrogen [Mass/Vol] 15.0 mg/dL Normal 7.0-18.0 [facility] Comment on above: Performed By: #### B MP #### [facility] [address] [place] [address] Dr. Luis Manuel Asher Urea nitrogen/Creatinine [Mass ratio] 11.0 mg/mg Normal [facility] Comment on above: Performed By: #### B MP #### [facility] [address] [place] [address] Dr. Luis Manuel Asher FERRITINon 11-29-2021 Ferritin [Mass/Vol] 57.0 ng/mL Normal 17.9-464.0 [facility] Comment on above: Performed By: #### F ERR #### [facility] [address] [place] [address] Dr. Luis Manuel Asher GLYCOHEMOGLOBIN A1Con 2021 ADA RECOMMENDATION ADA THERAPEUTIC TARG ET 6.0 - 7.0 ACTION SUGGESTED > 7.0 Normal [facility] Comment on above: Performed By: #### A 1C #### [facility] [address] [place] [address] Dr. Luis Manuel Asher Glucose [Mass/Vol] 146 mg/dL Normal [facility] Comment on above: Performed By: #### A 1C #### [facility] [address] [place] [address] Dr. Luis Manuel Asher HbA1c (Bld) [Mass fraction] 6.7 % Critically high <=6.0 [facility] Comment on above: Performed By: #### A 1C #### [facility] [address] [address] [address] Luis Manuel Asher CBC AUTO DIFFon 10-30-2021 BASO # 0.0 103/ul Normal 0.0-0.1 [facility] Comment on above: Performed By: #### V ITAD #### [facility] [address] [place] [address] Dr. Luis Manuel Asher Basophils/100 WBC (Bld) 0.6 % Normal 0.2-2.0 [facility] Comment on above: Performed By: #### V ITAD #### [facility] [address] [place] [address] Dr. Luis Manuel Asher EO # 0.2 103/ul Normal 0.0-0.7 [facility] Comment on above: Performed By: #### V ITAD #### [facility] [address] [place] [address] Dr. Luis Manuel Asher Eosinophils/100 WBC (Bld) 2.9 % Normal 0.9-7.0 [facility] Comment on above: Performed By: #### V ITAD #### [facility] [address] [place] [address] Dr. Luis Manuel Asher Erythrocyte distribution width (RBC) [Ratio] 13.1 % Normal 11.0-15.0 [facility] Comment on above: Performed By: #### V ITAD #### [facility] [address] [place] [address] Dr. Luis Manuel Asher Hematocrit (Bld) [Volume fraction] 42.3 % Normal 42.0-54.0 [facility] Comment on above: Performed By: #### V ITAD #### [facility] [address] [place] [address] Dr. Luis Manuel Asher Hemoglobin (Bld) [Mass/Vol] 14.0 g/dL Normal 14.0-18.0 [facility] Comment on above: Performed By: #### V ITAD #### [facility] [address] [place] [address] Dr. Luis Manuel Asher IG # 0.02 10e3/ul Normal 0.00-0.03 [facility] Comment on above: Performed By: #### V ITAD #### [facility] [address] [place] [address] Dr. Luis Manuel Asher IG % 0.4 % Normal 0.0-0.5 [facility] Comment on above: Performed By: #### V ITAD #### [facility] [address] [place] [address] Dr. Luis Manuel Asher LYMPH # 0.8 103/ul Critically low 1.2-3.8 [facility] Comment on above: Performed By: #### V ITAD #### [facility] [address] [place] [address] Dr. Luis Manuel Asher Lymphocytes/100 WBC (Bld) 15.5 % Critically low 20.5-60.0 [facility] Comment on above: Performed By: #### V ITAD #### [facility] [address] [place] [address] Dr. Luis Manuel Asher MANUAL DIFF REQ NO Normal [facility] Comment on above: Performed By: #### V ITAD #### [facility] [address] [place] [address] Dr. Luis Manuel Asher MCH (RBC) [Entitic mass] 30.5 pg Normal 25.9-34.0 [facility] Comment on above: Performed By: #### V ITAD #### [facility] [address] [place] [address] Dr. Luis Manuel Asher MCHC (RBC) [Mass/Vol] 33.1 g/dL Normal 29.9-35.2 [facility] Comment on above: Performed By: #### V ITAD #### [facility] [address] [place] [address] Dr. Luis Manuel Asher MCV (RBC) [Entitic vol] 92.2 fL Normal 80.0-94.0 [facility] Comment on above: Performed By: #### V ITAD #### [facility] [address] [place] [address] Dr. Luis Manuel Asher MONO # 0.5 103/ul Normal 0.3-0.8 [facility] Comment on above: Performed By: #### V ITAD #### [facility] [address] [address] [address] Luis Manuel Asher Monocytes/100 WBC (Bld) 10.0 % Normal 1.7-12.0 [facility] Comment on above: Performed By: #### V ITAD #### [facility] [address] [address] [address] Luis Manuel Asher NEUT # 3.6 103/ul Normal 1.4-6.5 [facility] Comment on above: Performed By: #### V ITAD #### [facility] [address] [place] [address] Dr. Luis Manuel Asher Neutrophils/100 WBC (Bld) 70.6 % Normal 43.0-75.0 [facility] Comment on above: Performed By: #### V ITAD #### [facility] [address] [place] [address] Dr. Luis Manuel Asher Platelet mean volume (Bld) [Entitic vol] 10.1 fL Normal 9.5-13.5 [facility] Comment on above: Performed By: #### V ITAD #### [facility] [address] [place] [address] Dr. Luis Manuel Asher PLT 161 103/ul Normal 150-450 [facility] Comment on above: Result Comment: smea r reviewed for platelets Performed By: #### V ITAD #### [facility] [address] [place] [address] Dr. Luis Manuel Asher RBC 4.59 106/ul Critically low 4.70-6.10 [facility] Comment on above: Performed By: #### V ITAD #### [facility] [address] [place] [address] Dr. Luis Manuel Asher WBC 5.1 103/ul Normal 4.0-11.0 [facility] Comment on above: Performed By: #### V ITAD #### [facility] [address] [place] [address] Dr. Luis Manuel Asher PROF 14(COMP METB)on 022 Albumin [Mass/Vol] 3.9 g/dL Normal 3.5-5.0 [facility] Comment on above: Performed By: #### T SH, CMP #### [facility] [address] [place] [address] Dr. Luis Manuel Asher Albumin/Globulin [Mass ratio] 1.2 {ratio} Normal [facility] Comment on above: Performed By: #### T SH, CMP #### [facility] [address] [address] [address] Luis Manuel Asher ALP [Catalytic activity/Vol] 85 U/L Normal 38-126 [facility] Comment on above: Performed By: #### T SH, CMP #### [facility] [address] [place] [address] Dr. Luis Manuel Asher ALT [Catalytic activity/Vol] 28 U/L Normal 21-72 [facility] Comment on above: Performed By: #### T EMERITA, CMP #### [facility] [address] [place] [address] Dr. Luis Manuel Asher Anion gap [Moles/Vol] 8.6 mmol/L Normal [facility] Comment on above: Performed By: #### T EMERITA, CMP #### [facility] [address] [place] [address] Dr. Luis Manuel Asher AST [Catalytic activity/Vol] 14 U/L Critically low 17-59 [facility] Comment on above: Performed By: #### T EMERITA, CMP #### [facility] [address] [place] [address] Dr. Luis Manuel Asher Bilirubin [Mass/Vol] 0.4 mg/dL Normal 0.2-1.3 [facility] Comment on above: Performed By: #### T SH, CMP #### [facility] [address] [place] [address] Dr. Luis Manuel Asher Calcium [Mass/Vol] 9.7 mg/dL Normal 8.4-10.2 [facility] Comment on above: Performed By: #### T SH, CMP #### [facility] [address] [place] [address] Dr. Luis Manuel Asher Chloride [Moles/Vol] 99 mmol/L Normal 98-107 [facility] Comment on above: Performed By: #### T SH, CMP #### [facility] [address] [address] [address] Luis Manuel Asher CO2 [Moles/Vol] 32.2 mmol/L Critically high 22.0-30.0 [facility] Comment on above: Performed By: #### T SH, CMP #### [facility] [address] [address] [address] Luis Manuel Asher Creatinine [Mass/Vol] 1.20 mg/dL Normal 0.66-1.25 [facility] Comment on above: Performed By: #### T SH, CMP #### [facility] [address] [address] [address] Luis Manuel Asher EGFR-AF ETHIOPIAN >60 Normal >=60 [facility] Comment on above: Performed By: #### T SH, CMP #### [facility] [address] [address] [address] Luis Manuel Asher EGFR-NON AF ETHIOPIAN 58 mL/min/1.73m2 Critically low >=60 [facility] Comment on above: Performed By: #### T SH, CMP #### [facility] [address] [address] [address] Luis Manuel Asher Globulin (S) [Mass/Vol] 3.2 g/dL Normal [facility] Comment on above: Performed By: #### T SH, CMP #### [facility] [address] [address] [address] Luis Manuel Asher Glucose [Mass/Vol] 135 mg/dL Critically high 74-106 [facility] Comment on above: Performed By: #### T SH, CMP #### [facility] [address] [address] [address] Luis Manuel Asher Potassium [Moles/Vol] 4.8 mmol/L Normal 3.4-5.0 [facility] Comment on above: Performed By: #### T SH, CMP #### [facility] [address] [address] [address] Luis Manuel Asher Protein [Mass/Vol] 7.1 g/dL Normal 6.1-8.2 [facility] Comment on above: Performed By: #### T SH, CMP #### [facility] [address] [place] [address] Dr. Luis Manuel Asher Sodium [Moles/Vol] 135 mmol/L Critically low 137-145 [facility] Comment on above: Performed By: #### T SH, CMP #### [facility] [address] [place] [address] Dr. Luis Manuel Asher Urea nitrogen [Mass/Vol] 19.0 mg/dL Normal 9.0-20.0 [facility] Comment on above: Performed By: #### T SH, CMP #### [facility] [address] [place] [address] Dr. Luis Manuel Asher Urea nitrogen/Creatinine [Mass ratio] 15.8 mg/mg Normal [facility] Comment on above: Performed By: #### T SH, CMP #### [facility] [address] [place] [address] Dr. Luis Manuel Asher TSHon 10-30-2021 TSH 1.146 uIU/mL Normal 0.470-4.68 0 [facility] Comment on above: Performed By: #### V ITAD #### [facility] [address] [place] [address] Dr. Luis Manuel Asher TSH RANGE SEE BELOW Normal [facility] Comment on above: Result Comment: <0.3 4 UIU/ml HYPERTHYROID 0.34-5.60 UIU/ml EUTHYROID >5.60 UIU/ml HYPOTHYROID Performed By: #### V ITAD #### [facility] [address] [place] [address] Dr. Luis Manuel Asher VITAMIN D 25 OHon 10-30-2021 VIT D 25-OH 84.6 ng/mL Normal [facility] Comment on above: Performed By: #### V ITAD #### [facility] [address] [place] [address] Dr. Luis Manuel Asher VIT D RANGES SEE BELOW Normal [facility] Comment on above: Result Comment: <20 ng/mL Vit D deficient 20 - <30 ng/mL Vit D insufficient 30 - 100 ng/mL Vit D sufficient >100 ng/mL Potential Toxicity Performed By: #### V ITAD #### [facility] [address] [place] [address] Dr. Luis Manuel Asher Vital Signs Date Time Vital Sign Value Performing Clinician Facility 12-14-2024 15:25-0400 Body height 182.88 cm Erich Ball DO Work Phone: [facility] 12-14-2024 15:25-0400 Body mass index (BMI) [Ratio] 32.3 kg/m2 Erich Ball DO Work Phone: [facility] 12-14-2024 15:25-0400 Body weight 107.95 kg Erich Ball DO Work Phone: [facility] 12-14-2024 15:25-0400 Diastolic blood pressure 74 mm[Hg] Erich Ball DO Work Phone: [facility] 12-14-2024 15:25-0400 Heart rate 83 /min Erich Ball DO Work Phone: [facility] 12-14-2024 15:25-0400 Respiratory rate 12 /min Erich Ball DO Work Phone: [facility] 12-14-2024 15:25-0400 Systolic blood pressure 156 mm[Hg] Erich Ball DO Work Phone: [facility] 11-05-2024 09:02-0500 Body height 182.88 cm Erich Ball DO Work Phone: [facility] 11-05-2024 09:02-0500 Body mass index (BMI) [Ratio] 32.3 kg/m2 Erich Ball DO Work Phone: [facility] 11-05-2024 09:02-0500 Body weight 107.95 kg Erich Ball DO Work Phone: [facility] 11-05-2024 09:02-0500 Diastolic blood pressure 78 mm[Hg] Erich Ball DO Work Phone: [facility] 11-05-2024 09:02-0500 Heart rate 74 /min Erich Ball DO Work Phone: [facility] 11-05-2024 09:02-0500 Respiratory rate 20 /min Erich Ball DO Work Phone: [facility] 11-05-2024 09:02-0500 SaO2% (BldA) [Mass fraction] 97 % Erich Ball DO Work Phone: [facility] 11-05-2024 09:02-0500 Systolic blood pressure 136 mm[Hg] Erich Ball DO Work Phone: [facility] 10-22-2024 11:10-0500 Diastolic blood pressure 81 mm[Hg] Erich Ball DO Work Phone: [facility] 10-22-2024 11:10-0500 Heart rate 69 /min Erich Ball DO Work Phone: [facility] 10-22-2024 11:10-0500 Respiratory rate 16 /min Erich Ball DO Work Phone: [facility] 10-22-2024 11:10-0500 SaO2% (BldA) [Mass fraction] 96 % Erich Ball DO Work Phone: [facility] 10-22-2024 11:10-0500 Systolic blood pressure 159 mm[Hg] Erich Ball DO Work Phone: [facility] 10-22-2024 09:21-0500 Body height 182.88 cm Erich Ball DO Work Phone: [facility] 10-22-2024 09:21-0500 Body weight 110.22 kg Erich Ball DO Work Phone: [facility] 10-21-2024 11:43-0500 Body height 182.88 cm Erich Ball DO Work Phone: [facility] 10-21-2024 11:43-0500 Body mass index (BMI) [Ratio] 32.1 kg/m2 Erich Ball DO Work Phone: [facility] 10-21-2024 11:43-0500 Body weight 107.67 kg Erich Ball DO Work Phone: [facility] 10-21-2024 11:43-0500 Diastolic blood pressure 69 mm[Hg] Erich Ball DO Work Phone: [facility] 10-21-2024 11:43-0500 Heart rate 78 /min Erich Ball DO Work Phone: [facility] 10-21-2024 11:43-0500 Respiratory rate 20 /min Erich Ball DO Work Phone: [facility] 10-21-2024 11:43-0500 Systolic blood pressure 136 mm[Hg] Reich Ball DO Work Phone: [facility] 10-14-2024 12:00-0500 Diastolic blood pressure 75 mm[Hg] Erich Ball DO Work Phone: [facility] 10-14-2024 12:00-0500 Heart rate 85 /min Erich Ball DO Work Phone: [facility] 10-14-2024 12:00-0500 Respiratory rate 20 /min Erich Ball DO Work Phone: [facility] 10-14-2024 12:00-0500 SaO2% (BldA) [Mass fraction] 97 % Erich Ball DO Work Phone: [facility] 10-14-2024 12:00-0500 Systolic blood pressure 148 mm[Hg] Erich Ball DO Work Phone: [facility] 10-14-2024 08:00-0500 Body temperature 97.8 [degF] Erich Ball DO Work Phone: [facility] 10-14-2024 04:27-0500 Body weight 109.6 kg Erich Ball DO Work Phone: [facility] 10-13-2024 16:00-0500 Body height 182.88 cm Erich Ball DO Work Phone: [facility] 10-05-2024 14:35-0500 Body mass index (BMI) [Ratio] 33.19 kg/m2 Jailyn Sepulveda [employer] Work Phone: [facility] 10-05-2024 14:35-0500 Body weight 107.96 kg Jailyn Sepulveda [employer] Work Phone: [facility] 10-05-2024 14:35-0500 Diastolic blood pressure 74 mm[Hg] Jailyn Coco [employer] Work Phone: [facility] 10-05-2024 14:35-0500 Heart rate 87 /min Jailyn Coco [employer] Work Phone: [facility] 10-05-2024 14:35-0500 Systolic blood pressure 131 mm[Hg] Jailyn Coco [employer] Work Phone: [facility] 07-15-2024 14:09-0500 Body height 180.34 cm [facility] 07-15-2024 14:09-0500 Body mass index (BMI) [Ratio] 33.5 kg/m2 [facility] 07-15-2024 14:09-0500 Body weight 109.03 kg [facility] 07-15-2024 14:09-0500 Diastolic blood pressure 81 mm[Hg] [facility] 07-15-2024 14:09-0500 Heart rate 76 /min [facility] 07-15-2024 14:09-0500 Respiratory rate 12 /min [facility] 07-15-2024 14:09-0500 Systolic blood pressure 145 mm[Hg] [facility] 07-06-2024 13:05-0500 Body mass index (BMI) [Ratio] 33.05 kg/m2 Jailyn Sepulveda [employer] Work Phone: [facility] 07-06-2024 13:05-0500 Body weight 107.5 kg Jailyn Sepulveda [employer] Work Phone: [facility] 07-06-2024 13:05-0500 Diastolic blood pressure 65 mm[Hg] Jailyn Coco [employer] Work Phone: [facility] 07-06-2024 13:05-0500 Heart rate 75 /min Jailyn Coco [employer] Work Phone: [facility] 07-06-2024 13:05-0500 Systolic blood pressure 137 mm[Hg] Jailyn Coco MACKAY Work Phone: [facility] 04-07-2024 10:11-0400 Body height 180.34 cm [facility] 04-07-2024 10:11-0400 Body mass index (BMI) [Ratio] 32.5 kg/m2 [facility] 04-07-2024 10:11-0400 Body weight 105.68 kg [facility] 04-07-2024 10:11-0400 Diastolic blood pressure 67 mm[Hg] [facility] 04-07-2024 10:11-0400 Heart rate 89 /min [facility] 04-07-2024 10:11-0400 Respiratory rate 12 /min [facility] 04-07-2024 10:11-0400 Systolic blood pressure 113 mm[Hg] [facility] 02-05-2024 11:15-0400 Body height 180.34 cm [facility] 02-05-2024 11:15-0400 Body mass index (BMI) [Ratio] 32.8 kg/m2 [facility] 02-05-2024 11:15-0400 Body weight 106.65 kg [facility] 02-05-2024 11:15-0400 Diastolic blood pressure 75 mm[Hg] [facility] 02-05-2024 11:15-0400 Heart rate 84 /min [facility] 02-05-2024 11:15-0400 Respiratory rate 12 /min [facility] 02-05-2024 11:15-0400 Systolic blood pressure 135 mm[Hg] [facility] 11-06-2023 10:39-0500 Body height 180.34 cm [facility] 11-06-2023 10:39-0500 Body mass index (BMI) [Ratio] 32.8 kg/m2 [facility] 11-06-2023 10:39-0500 Body weight 106.82 kg [facility] 11-06-2023 10:39-0500 Diastolic blood pressure 68 mm[Hg] [facility] 11-06-2023 10:39-0500 Heart rate 89 /min [facility] 11-06-2023 10:39-0500 Respiratory rate 20 /min [facility] 11-06-2023 10:39-0500 Systolic blood pressure 122 mm[Hg] [facility] 08-07-2023 10:30-0500 Body height 180.34 cm Erich Ball Other [facility] [employer] Other 08-07-2023 10:30-0500 Body mass index (BMI) [Ratio] 34.42 kg/m2 Erich Ball Other [facility] Other 08-07-2023 10:30-0500 Body weight 111.95 kg Erich Ball Other [facility] Other 08-07-2023 10:30-0500 Diastolic blood pressure 74 mm[Hg] Erich Ball Other [employer] Other 08-07-2023 10:30-0500 Respiratory rate 12 /min Erich Ball Other [facility] Other 08-07-2023 10:30-0500 Systolic blood pressure 136 mm[Hg] Erich Ball Other [facility] Other 05-08-2023 11:00-0400 Body height 180.34 cm Erich Ball Other [facility] Other 05-08-2023 11:00-0400 Body mass index (BMI) [Ratio] 34.84 kg/m2 Erich Ball Other [employer] Other 05-08-2023 11:00-0400 Body weight 113.31 kg Erich Ball Other [employer] Other 05-08-2023 11:00-0400 Diastolic blood pressure 79 mm[Hg] Erich Ball Other [facility] [employer] Other 05-08-2023 11:00-0400 Respiratory rate 12 /min Erich Ball Other [facility] [employer] Other 05-08-2023 11:00-0400 Systolic blood pressure 161 mm[Hg] Erich Ball Other [facility] [employer] Other 03-11-2023 12:48-0400 Body height 182.88 cm Erich E Ball Work Phone: [facility] [place] [address] DO Work Phone: 03-11-2023 12:48-0400 Body mass index (BMI) [Ratio] 33.92 kg/m2 Erich E Ball Work Phone: [facility] [employer] DO Work Phone: 03-11-2023 12:48-0400 Body surface area Derived from formula 2.34 m2 Erich E Ball Work Phone: [facility] [place] 250 DO Work Phone: 03-11-2023 12:48-0400 Body weight 113.46 kg Erich E Ball Work Phone: [facility] [employer] [address] DO Work Phone: 03-11-2023 12:48-0400 Diastolic blood pressure 72 mm[Hg] Erich E Ball Work Phone: [facility] [employer] [address] DO Work Phone: 03-11-2023 12:48-0400 Heart rate 78 /min Erich E Ball Work Phone: [facility] [employer] 250 DO Work Phone: 03-11-2023 12:48-0400 Systolic blood pressure 128 mm[Hg] Erich E Ball Work Phone: [facility] [employer] 250 DO Work Phone: 02-05-2023 14:30-0400 Body height 180.34 cm Erich Ball Other [facility] [employer] Other 02-05-2023 14:30-0400 Body mass index (BMI) [Ratio] 35.42 kg/m2 Erich Ball Other [employer] Other 02-05-2023 14:30-0400 Body weight 115.21 kg Erich Ball Other [facility] Other 02-05-2023 14:30-0400 Diastolic blood pressure 74 mm[Hg] Erich Ball Other [employer] Other 02-05-2023 14:30-0400 Respiratory rate 12 /min Erich Ball Other [employer] Other 02-05-2023 14:30-0400 Systolic blood pressure 117 mm[Hg] Erich Ball Other [facility] Other 12-17-2022 14:49-0400 Body height 182.88 cm Erich E Ball Work Phone: [facility] [place] 250 DO Work Phone: 12-17-2022 14:49-0400 Body mass index (BMI) [Ratio] 34.31 kg/m2 Erich E Ball Work Phone: [employer] 250 DO Work Phone: 12-17-2022 14:49-0400 Body surface area Derived from formula 2.35 m2 Erich E Ball Work Phone: [employer] [address] DO Work Phone: 12-17-2022 14:49-0400 Body weight 114.76 kg Erich E Ball Work Phone: [facility] [employer] DO Work Phone: 12-17-2022 14:49-0400 Diastolic blood pressure 70 mm[Hg] Erich E Ball Work Phone: [facility] [employer] 250 DO Work Phone: 12-17-2022 14:49-0400 Heart rate 76 /min Erich E Ball Work Phone: [facility] [employer] DO Work Phone: 12-17-2022 14:49-0400 Systolic blood pressure 128 mm[Hg] Erich E Ball Work Phone: [facility] [employer] DO Work Phone: 12-11-2022 14:00-0400 63 1 Erich E Ball Work Phone: [facility] [place] [address] [place] Work Phone: Comment on above: [id number] 11-21-2022 12:00-0400 Body height 180.34 cm Erich Ball Other [facility] [employer] Other 11-21-2022 12:00-0400 Body mass index (BMI) [Ratio] 35.37 kg/m2 Erich Ball Other [facility] [employer] Other 11-21-2022 12:00-0400 Body weight 115.03 kg Erich Ball Other [facility] [employer] Other 11-21-2022 12:00-0400 Diastolic blood pressure 73 mm[Hg] Erich Ball Other [facility] [employer] Other 11-21-2022 12:00-0400 Respiratory rate 16 /min Erich Ball Other [place] [employer] [employer] Other 11-21-2022 12:00-0400 Systolic blood pressure 144 mm[Hg] Erich Ball Other [facility] [employer] Other 11-12-2022 10:48-0400 Diastolic blood pressure 80 mm[Hg] Erich E Ball Work Phone: [facility] [employer] 250 DO Work Phone: 11-12-2022 10:48-0400 Systolic blood pressure 142 mm[Hg] Erihc E Ball Work Phone: [facility] [employer] 250 DO Work Phone: 11-12-2022 10:27-0400 Diastolic blood pressure 86 mm[Hg] Erich E Ball Work Phone: [facility] [employer] 250 DO Work Phone: 11-12-2022 10:27-0400 Systolic blood pressure 148 mm[Hg] Erich E Ball Work Phone: [facility] [employer] DO Work Phone: 11-12-2022 10:22-0400 Body height 182.88 cm Erich E Ball Work Phone: [facility] [employer] 250 DO Work Phone: 11-12-2022 10:22-0400 Body mass index (BMI) [Ratio] 34.31 kg/m2 Erich E Ball Work Phone: [facility] [employer] DO Work Phone: 11-12-2022 10:22-0400 Body surface area Derived from formula 2.35 m2 Erich E Ball Work Phone: [facility] [employer] DO Work Phone: 11-12-2022 10:22-0400 Body weight 114.76 kg Erich E Ball Work Phone: [facility] [employer] DO Work Phone: 11-12-2022 10:22-0400 Diastolic blood pressure 86 mm[Hg] Erich E Ball Work Phone: [facility] [place] [address] DO Work Phone: 11-12-2022 10:22-0400 Heart rate 85 /min Erich E Ball Work Phone: [facility] [place] 250 DO Work Phone: 11-12-2022 10:22-0400 Systolic blood pressure 150 mm[Hg] Erich E Ball Work Phone: [facility] [place] [address] DO Work Phone: 10-26-2022 11:30-0500 Body height 180.34 cm Erich Ball Other [facility] [employer] Other 10-26-2022 11:30-0500 Body mass index (BMI) [Ratio] 34.22 kg/m2 Erich Ball Other [facility] [employer] Other 10-26-2022 11:30-0500 Body weight 111.31 kg Erich Ball Other [employer] Other 10-26-2022 11:30-0500 Diastolic blood pressure 68 mm[Hg] Erich Ball Other [facility] [employer] Other 10-26-2022 11:30-0500 Respiratory rate 16 /min Erich Ball Other [facility] Other 10-26-2022 11:30-0500 SaO2% (BldA) [Mass fraction] 97 % Erich Ball Other [employer] Other 10-26-2022 11:30-0500 Systolic blood pressure 122 mm[Hg] Erich Ball Other [facility] Other 09-09-2022 08:15-0500 SaO2% (BldA) [Mass fraction] 93 % Pascual PRINCE [facility] 09-08-2022 11:46-0500 Body temperature 97.8 [degF] DO Erich Ball Work Phone: [facility] 09-08-2022 11:46-0500 Diastolic blood pressure 73 mm[Hg] DO Erich Ball Work Phone: [facility] 09-08-2022 11:46-0500 Heart rate 82 /min DO Erich Ball Work Phone: [facility] 09-08-2022 11:46-0500 Inhaled oxygen flow rate 2 L/min DO Erich Ball Work Phone: [facility] 09-08-2022 11:46-0500 Respiratory rate 17 /min DO Erich Ball Work Phone: [facility] 09-08-2022 11:46-0500 SaO2% (BldA) [Mass fraction] 92 % DO Erich Ball Work Phone: [facility] 09-08-2022 11:46-0500 Systolic blood pressure 121 mm[Hg] DO Erich Ball Work Phone: [facility] 09-08-2022 06:00-0500 Body weight 110.3 kg DO Erich Ball Work Phone: [facility] 09-05-2022 15:05-0500 Body height 180.34 cm DO Erich Ball Work Phone: [facility] Encounters Encounter Date Encounter Type Care Provider Facility Start: 04-07-2025 ambulatory Carlos A BAEZ Facility :[facility] [place] Start: 12-14-2024 End: 12-14-2024 ambulatory Erich Ball DO Work Phone: [facility] Work Phone: Start: 12-14-2024 End: 12-14-2024 Patient encounter procedure Erich Ball DO Work Phone: [facility] Work Phone: Start: 12-11-2024 End: 12-11-2024 ambulatory Sobeida X Ordaich Facility:[facility] Start: 12-10-2024 End: 12-10-2024 ambulatory Erich Ball DO Work Phone: [facility] Work Phone: Start: 12-10-2024 End: 12-10-2024 Patient encounter procedure Erich Ball DO Work Phone: [facility] Work Phone: Start: 11-05-2024 End: 11-05-2024 Patient encounter procedure Erich Ball DO Work Phone: [facility] Work Phone: Start: 11-05-2024 End: 11-05-2024 ambulatory Erich Ball DO Work Phone: [facility] Work Phone: Start: 11-05-2024 Registered Recurring Erich Ball DO Work Phone: [facility] Work Phone: Start: 10-22-2024 End: 10-22-2024 Admission to same day surgery center Erich Ball DO Work Phone: [facility] Work Phone: Start: 10-22-2024 End: 10-22-2024 ambulatory Erich Ball DO Work Phone: [facility] Work Phone: Start: 10-21-2024 End: 10-21-2024 ambulatory Erich Ball DO Work Phone: [facility] Work Phone: Start: 10-21-2024 End: 10-21-2024 Patient encounter procedure Erich Ball DO Work Phone: [facility] Work Phone: Start: 10-15-2024 Non-patient / Non-visit Benjam in Ball DO Work Phone: [facility] Work Phone: Start: 10-11-2024 ambulatory [facility]ENEUROLOGY INPATIENT [facility] Start: 10-10-2024 Non-patient / Non-visit Benjam in Ball DO Work Phone: [facility] Gastro Work Phone: Start: 10-09-2024 Non-patient / Non-visit Benjam in Ball DO Work Phone: [facility] Work Phone: Start: 10-09-2024 Non-patient / Non-visit Benjam in Ball DO Work Phone: [facility] Pulmonary Work Phone: Start: 10-09-2024 End: 10-14-2024 Evaluation and management of inpatient Erich Ball DO Work Phone: [facility] Work Phone: Start: 10-08-2024 Non-patient / Non-visit Benjam in Ball DO Work Phone: [facility] Work Phone: Start: 10-08-2024 End: 11-03-2024 Emergency department patient visit TELENEUROLOGY INPATIENT [facility] Start: 10-08-2024 Non-patient / Non-visit Benjam in Ball DO Work Phone: [facility] Physician [facility] Work Phone: Start: 10-06-2024 Non-patient / Non-visit Benjam in Ball DO Work Phone: [facility] Physician [facility] Work Phone: Start: 10-05-2024 End: 10-05-2024 Patient encounter procedure [facility] Physician [facility] Work Phone: Start: 10-05-2024 End: 10-05-2024 Office outpatient visit 15 minutes Jailyn Sepulveda DOUGH CUTTER Work Phone: [facility] Comment on above: Imbalance (Primary D x); Dizziness; Generalized weakness Start: 10-05-2024 End: 10-05-2024 ambulatory JAILYN COCO [facility] Work Phone: Start: 10-05-2024 End: 10-05-2024 Bamboo flowsheet Jailyn Sepulveda DOUGH CUTTER Work Phone: [facility] Start: 10-05-2024 End: 10-05-2024 Bamboo flowsheet Jailyn Sepulveda DOUGH CUTTER Work Phone: [facility] Start: 09-01-2024 End: 09-01-2024 Patient encounter procedure [facility] Phys[facility] Work Phone: Start: 07-16-2024 Non-patient / Non-visit [facility] Work Phone: Start: 07-15-2024 End: 07-15-2024 ambulatory [facility] Work Phone: Start: 07-15-2024 End: 07-15-2024 Patient encounter procedure [facility] Work Phone: Start: 07-13-2024 Patient encounter procedure [facility] Start: 07-06-2024 End: 07-06-2024 Bamboo flowsheet Jailyn Sepulveda DOUGH CUTTER Work Phone: [facility] Start: 07-06-2024 End: 07-06-2024 Bamboo flowsheet Jailynrocco Sepulveda DOUGH CUTTER Work Phone: [facility] [place] [address] Start: 07-06-2024 End: 07-06-2024 Office outpatient visit 15 minutes Jailyn Sepulveda DOUGH CUTTER Work Phone: [facility] [place] [address] Comment on above: Imbalance (Primary D x); Dizziness; Generalized weakness; Daytime hypersomnolence Start: 07-06-2024 End: 07-06-2024 ambulatory JAILYN SEPULVEDA Not Available Start: 07-01-2024 Non-patient / Non-visit [facility] Work Phone: Start: 06-30-2024 End: 06-30-2024 ambulatory [facility] Work Phone: Start: 06-30-2024 End: 06-30-2024 Patient encounter procedure [facility] Work Phone: Start: 05-26-2024 End: 05-26-2024 ambulatory [facility] Work Phone: Start: 05-26-2024 End: 05-26-2024 Patient encounter procedure [facility] Work Phone: Start: 04-28-2024 Non-patient / Non-visit [facility] Work Phone: Start: 04-15-2024 End: 04-15-2024 ambulatory Carlos A BAEZ Facility:[facility] [place] Start: 04-15-2024 End: 04-15-2024 Patient encounter procedure [facility]AEZ [facility] Start: 04-07-2024 End: 04-07-2024 ambulatory [facility] Work Phone: Start: 04-07-2024 End: 04-07-2024 Patient encounter procedure [facility] Work Phone: Start: 02-05-2024 End: 02-05-2024 ambulatory [facility] Work Phone: Start: 02-05-2024 End: 02-05-2024 Patient encounter procedure [facility] Work Phone: Start: 01-30-2024 End: 01-30-2024 ambulatory JAILYN SEPULVEDA Not Available Start: 01-29-2024 End: 01-29-2024 ambulatory Carlos A BAEZ Facility:[facility] [place] Start: 01-29-2024 End: 01-29-2024 Patient encounter procedure Carlos A BAEZ [facility] Start: 01-16-2024 Non-patient / Non-visit [facility]ician [facility] Work Phone: Start: 01-13-2024 Non-patient / Non-visit [facility] Work Phone: Start: 12-19-2023 End: 12-19-2023 ambulatory [facility] Work Phone: Start: 12-19-2023 End: 12-19-2023 Patient encounter procedure [facility] Work Phone: Start: 11-06-2023 End: 11-06-2023 Patient encounter procedure [facility] Phys[facility] Work Phone: Start: 10-03-2023 End: 10-03-2023 ambulatory Erich Ball Other Seen Other Start: 10-03-2023 Telephone encounter Erich Ball FP G [facility] Start: 10-03-2023 Patient encounter procedure [facility]- Start: 10-02-2023 End: 10-02-2023 ambulatory Erich Ball Other Seen Other Start: 10-02-2023 Telephone encounter Erich Ball FP G [facility] Start: 2023 End: 2023 ambulatory Erich Ball Other Seen Other Start: 2023 Telephone encounter Erich Ball FP G [facility] Start: 08-23-2023 End: 08-23-2023 ambulatory Erich Ball Other Seen Other Start: 08-23-2023 Telephone encounter Erich Ball FP G [facility] Start: 08-07-2023 End: 08-07-2023 ambulatory Erich Alejandro Other Seen Other Start: 08-07-2023 Office outpatient vi sit 25 minutes Erich Alejandro [facility] Start: 07-23-2023 End: 07-23-2023 ambulatory Erich Alejandro Other Seen Other Start: 07-23-2023 Nursing evaluation o f patient and report Erich Alejandro [facility] Start: 06-18-2023 End: 06-18-2023 ambulatory Erich Alejandro Other Seen Other Start: 06-18-2023 Nursing evaluation o f patient and report Erich Alejandro [facility] Start: 06-05-2023 End: 06-05-2023 ambulatory Erich Alejandro Other Seen Other Start: 06-05-2023 Telephone encounter Erich Alejandro FP [facility] Start: 06-04-2023 End: 06-04-2023 ambulatory Erich Alejandro Other Seen Other Start: 06-04-2023 Telephone encounter Erich Alejandro FP [facility] Start: 05-08-2023 End: 05-08-2023 ambulatory Erich Alejandro Other Seen Other Start: 05-08-2023 Patient encounter procedure Erich Alejandro [facility] Start: 04-22-2023 End: 04-22-2023 ambulatory Erich Alejandro Other Seen Other Start: 04-22-2023 Telephone encounter Erich Alejandro FP [facility] Start: 03-20-2023 End: 03-20-2023 ambulatory Erich Alejadnro Other Seen Other Start: 03-20-2023 Nursing evaluation o f patient and report Erich Alejandro [facility] Start: 03-11-2023 Office outpatient vi sit 15 minutes Erich E Ball Work Phone: [facility] DO Work Phone: Start: 03-11-2023 ambulatory MD CATHLEEN LOPEZ Facilit y: Start: 02-14-2023 End: 02-14-2023 ambulatory Erich Alejandro Other Seen Other Start: 02-14-2023 Telephone encounter Erich Alejandro FP [facility] Start: 02-13-2023 End: 02-13-2023 ambulatory Erich Alejandro Other Seen Other Start: 02-13-2023 Telephone encounter Erich Alejandro FP [facility] Start: 02-11-2023 End: 02-11-2023 ambulatory Staci Burnette Other Seen Other Start: 02-11-2023 Nursing evaluation o f patient and report Staci Burnette [facility] Start: 02-05-2023 End: 02-05-2023 ambulatory Erich Alejandro Other Seen Other Start: 02-05-2023 Office outpatient vi sit 25 minutes Erich Alejandro [facility] Start: 01-10-2023 End: 01-10-2023 ambulatory Erich Alejandro Other Seen Other Start: 01-10-2023 Nursing evaluation o f patient and report Erich Alejandro [facility] Start: 01-10-2023 Telephone encounter Erich Alejandro FP [facility] Start: 12-17-2022 Office outpatient vi sit 25 minutes Erich E Ball Work Phone: [facility] DO Work Phone: Start: 12-17-2022 ambulatory MD CATHLEEN LOPEZ Facilit y: Start: 12-12-[address] Cathleen Lopez Facili ty:[id number] Start: 12-11-2022 Patient encounter procedure Erich E Ball Work Phone: [facility] [place] Work Phone: Start: 12-11-[address] Cathleen Ness ty:[id number] Start: 12-03-2022 End: 12-03-2022 ambulatory Erich Alejandro Other Seen Other Start: 12-03-2022 Telephone encounter Erich JAVIER [facility] Start: 11-21-2022 End: 11-21-2022 ambulatory Erich Ball Other Seen Other Start: 11-21-2022 Office outpatient vi sit 25 minutes Erich Javon [facility] Start: 11-12-2022 Office consultation new/estab patient 60 min Erich Valentine Ball Work Phone: [facility] 250 DO Work Phone: Start: 11-12-2022 Patient encounter procedure Erich Valentine Ball Work Phone: [facility] DO Work Phone: Start: 11-12-2022 ambulatory MD CATHLEEN LOPEZ Facilit y: Start: 10-26-2022 End: 10-26-2022 ambulatory Erich Ball Other [employer] Other Start: 10-26-2022 Office outpatient vi sit 25 minutes Erich Alejandro [facility] Start: 10-07-2022 End: 10-07-2022 ambulatory Erich Ball Other Seen Other Start: 10-07-2022 Telephone encounter Erich Alejandro FP [facility] Start: 10-03-2022 End: 10-03-2022 ambulatory Erich Ball Other Seen Other Start: 10-03-2022 Telephone encounter Erich Alejandro FP [facility] Start: 09-25-2022 End: 09-25-2022 ambulatory Erich Ball Other Seen Other Start: 09-25-2022 Telephone encounter Erich Alejandro FP [facility] Start: 09-19-2022 End: 09-19-2022 [facility]Site [facility] Start: 09-10-2022 End: 09-10-2022 ambulatory Erich Alejandro Other Seen Other Start: 09-10-2022 Telephone encounter Erich Alejandro FP [facility] Start: 09-10-2022 End: 09-10-2022 [facility]-Site [facility] Start: 09-08-2022 End: 09-19-2022 Evaluation and management of inpatient Pascual PRINCE [facility] Start: 09-05-2022 End: 09-05-2022 ambulatory Erich Alejandro Other Seen Other Start: 09-05-2022 Telephone encounter Erich Alejandro No [facility] [employer] Start: 09-05-[address] Erich Alejandro Facility:[id number] Start: 09-04-2022 End: 09-08-2022 Evaluation and management of inpatient DO Erich Alejandro Work Phone: [facility] Work Phone: Start: 09-04-2022 End: 09-04-[address] ERICH ALEJANDRO Facility:[facility] Start: 04-24-2022 End: 04-25-[address] ERICH ALEJANDRO Facility:[facility] Start: 04-23-2022 Adult health examination Jorge L Alejandro Other [employer] Other Start: 11-29-2021 End: 11-30-[address] ERICH ALEJANDRO Facility:[facility] Start: 10-30-2021 End: 10-31-[address] ERICH ALEJANDRO Facility:[facility] Procedures Date Procedure Procedure Detail Performing Clinician Start: 10-22-2024 Bone marrow sampling Be huy Alejandro DO Work Phone: Start: 10-09-2024 CT of abdomen and pe lvis without contrast Erich Alejandro DO Work Phone: Start: 10-09-2024 Doppler ultrasonogra phy of bilateral carotid arteries Erich Alejandro DO Work Phone: Start: 09-08-2022 SARS Antigen (LFIA) DO Erich Alejandro Work Phone: Start: 09-05-2022 CT of thorax with contrast DO Erich Alejandro Work Phone: Start: 09-05-2022 Plain chest X-ray DO Be huy Alejandro Work Phone: Start: 05-01-2021 Open reduction of fr acture with internal fixation Pascual NIKI Comment on above: HUMERAL SHAFT WITH E XTENSION OF HUMERAL HEAD. Start: 04-28-2021 Left upper arm struc ture (body structure) Pascual NIKI Start: 01-12-2021 Cystourethroscopy wi dilation of urethral stricture Pasc[facility] NIKI Start: 09-02-2014 Transurethral prostatectomy [facility] CROWELLWOOD Cataract surgery Erich Alejandro Work Phone: Depression screening Ashley Alejandro Other Operation on colon Erich Alejandro Work Phone: Surgical repair of u pper extremity Erich Alejandro Work Phone: Tonsillectomy P[facility]ual MARTINEZ D Tonsillectomy Erich Grijalva Bal l Work Phone: Total colectomy [facility] [place] O[place] Total colonoscopy Erich Alejandro Work Phone: Plan of Treatment Date Care Activity Detail Author Start: 04-12-2025 End: 04-12-2025 Patient encounter procedure 04/12/2025 1:00 PM EDT Office Visit [facility] [address] [place] [address] Gracia Brady NP [address] [place] [id number] [facility] Start: 10-22-2024 End: 10-22-2024 [facility] Start: 10-22-2024 Bone marrow sampling [facility] Start: 10-16-2024 Bone marrow sampling [facility] Start: 10-14-2024 [facility] Start: 10-11-2024 [facility] Start: 10-11-2024 Referral to tree scout [facility] Start: 10-10-2024 [facility] Start: 10-09-2024 Referral to awning hanger helper [facility] Start: 10-09-2024 Hospital admission [facility] Start: 10-05-2024 End: 10-05-2024 Patient encounter procedure [facility] Comment on above: Arrived Start: 07-06-2024 End: 07-06-2024 Patient encounter procedure 07/06/2024 1:00 PM EST Office Visit [facility] [address] Formerly [facility] [place] [address] Jailyn Sepulveda NP [address] [place], [place] [id number] [facility] [place] [facility] Comment on above: Arrived Start: 05-03-2024 Influenza vaccination Influenz a Vaccine (#1) [facility] Start: 03-11-2023 FUV, Provider: Cathleen Lopez, Status: Pen, Time: 12:45 PM FUV, Provider: Cathleen Lopez, Status: Pen, Time: 12:45 PM -[facility] 250 DO Work Phone: Start: 12-17-2022 FUV, Provider: Cathleen Lopez, Status: Pen, Time: 2:45 PM FUV, Provider: Cathleen Lopez, Status: Pen, Time: 2:45 PM [facility] DO Work Phone: Start: 12-12-2022 REST ONLY, Provider: DON COVARRUBIASI NUCLEAR 01,[id number], Status: Pen, Time: 12:30 PM REST ONLY, Provider: DON COVARRUBIASI NUCLEAR 01,[id number], Status: Pen, Time: 12:30 PM [facility] 250 DO Work Phone: Start: 12-11-2022 STRESSNUC2, Provider : DON COVARRUBIASI NUCLEAR 01,[id number], Status: Pen, Time: 2:00 PM STRESSNUC2, Provider: DON COVARRUBIASI NUCLEAR 01,[id number], Status: Pen, Time: 2:[address] [facility] Work Phone: Start: 09-08-2022 [facility] Start: 09-04-2022 Hospital admission [facility] Comprehensive metabo lic 1999 panel - Serum or Plasma [facility] Comprehensive metabo lic 1999 panel - Serum or Plasma [facility] Comprehensive metabo lic 1999 panel - Serum or Plasma [facility] Comprehensive metabo lic 1999 panel - Serum or Plasma [facility] Karyotype [Identifie r] in Unspecified specimen Nominal [facility] Microalbumin [Mass/v olume] in Urine [facility] Patient Education [facility] Work Phone: Patient referral [facility] Work Phone: [facility] Immunizations Immunization Date Immunization Notes Care Provider Liz dixon 05-29-2024 influenza virus vaccine, unspecified formulation Jailyn Sepulveda NP Work Phone: [facility] 06-10-2022 Fluzone High-Dose Quadrivalent 0.7 ML Intramuscular Suspension Prefilled Syringe Erich Alejandro Work Phone: [facility] [place] [facility] DO Work Phone: 06-10-2022 influenza virus vaccine, unspecified formulation Pascual PRINCE [facility] 01-23-2022 Comirnaty 30 MCG/0.3 ML Intramuscular Suspension Erich Valentine Javon Work Phone: [facility] DO Work Phone: 01-23-2022 SARS-CoV-2 mRNA (iddnsewumwi-vzfp-pqphs se) vaccine Pascual PRINCE [facility] 07-05-2021 COVID-19, mRNA, LNP- S, PF, 100 mcg or 50 mcg dose Pascual PRINCE [facility] 06-23-2021 influenza virus vaccine, split virus (incl. purified surface antigen) Erich Alejandro Other [facility] [employer] Other 06-23-2021 influenza virus vaccine, unspecified formulation [facility] 04-27-2021 tetanus toxoid, redu angela diphtheria toxoid, and acellular pertussis vaccine, adsorbed Pascual PRINCE [facility] Comment on above: Early/Late Reason: E mikki/Late Reason: Other : . 10-12-2020 SARS-CoV-2 (COVID-19 ) mRNA-1273 vaccine Pascual PRINCE [facility] 09-14-2020 SARS-CoV-2 (COVID-19 ) mRNA-1273 vaccine Pascual PRINCE [facility] 06-02-2020 influenza virus vaccine, unspecified formulation Pascual PRINCE [facility] 09-19-2019 zoster vaccine, live Benjdorie Alejandro Other [facility] 05-30-2019 influenza virus vaccine, split virus (incl. purified surface antigen) Erich Alejandro Other [facility] Other 05-30-2019 influenza virus vaccine, unspecified formulation [facility] 05-30-2019 zoster vaccine recombinant Pascual PRINCE [facility] 06-11-2018 influenza virus vaccine, split virus (incl. purified surface antigen) Erich Alejandro Other [facility] Other 06-11-2018 influenza virus vaccine, unspecified formulation [facility] 06-01-2017 influenza virus vaccine, split virus (incl. purified surface antigen) Erich Alejandro Other [facility] [employer] Other 06-01-2017 influenza virus vaccine, unspecified formulation [facility] 02-25-2016 pneumococcal polysaccharide vaccine, 23 valent Erich Alejandro Other [facility] 12-18-2014 pneumococcal conjuga te vaccine, 13 valent Erich Alejandro Other [facility] 07-11-2005 influenza virus vaccine, whole virus Erich Alejandro Work Phone: [facility] 250 DO Work Phone: 07-11-2005 pneumococcal polysaccharide vaccine, 23 valent Pascual PRINCE [facility] Payers Date Payer Category Payer Self-pay 2011 [facility] [id number] 2003 Medicare MEDICARE [id number] 1959 Medicare [id number] 1959 Unknown [id number] 1938 Unknown [id number] [id number] 9.2.593 1938 Unknown [id number] 2.16.840.1.718169.3.57 9.2.593 1938 Unknown [id number] 2.16.840.1.391388.3.57 9.2.593 1938 Unknown [id number] 2.16.840.1.188723.3.57 9.2.593 1938 Unknown [id number] 2.16.840.1.757359.3.57 9.2.1068 1938 Unknown [id number] 2.16.840.1.607738.3.57 9.2.1068 1938 Unknown [id number] 2.16.840.1.172754.3.57 9.2.1068 1938 Unknown [id number] 2.16.840.1.897066.3.57 9.2.356 1938 Unknown [id number] 2.16.840.1.843917.3.57 9.2.356 1938 Unknown [id number] 2.16.840.1.577194.3.57 9.2.356 1938 Unknown [id number] 2.16.840.1.087402.3.57 9.2.356 1938 Unknown [id number] 2.16.840.1.204333.3.57 9.2.1259 1938 Unknown [id number] 2.16.840.1.784146.3.57 9.2.1259 1938 Unknown [id number] 2.16.840.1.648450.3.57 9.2.1259 1938 Unknown [id number] 2.16.840.1.112690.3.57 9.2.1286 1938 Unknown [id number] 2.16.840.1.120061.3.57 9.2.1286 1938 Unknown [id number] 2.16.840.1.714688.3.57 9.2.727 1938 Unknown [id number] 2.16.840.1.021312.3.57 9.2.727 1938 Unknown [id number] 2.16.840.1.910274.3.57 9.2.727 1938 Unknown [id number] 2.16.840.1.477360.3.57 9.2.727 1938 Unknown [id number] 2.16.840.1.688352.3.57 9.2.727 Unknown Unknown [id number] 2.16.840.1.816551.3.57 9.2.531 Unknown [id number] 2.16.840.1.421377.3.57 9.2.531 Unknown [id number] 2.16.840.1.710951.3.57 9.2.531 Social History Date Type Detail Facility Start: 08-07-2021 End: 04-15-2024 Tobacco smoking status Light tobacco smoker (finding) [facility] Start: 12-31-2023 Sex Assigned At Male F [facility] Start: 09-04-2022 End: 11-05-2024 Tobacco smoking status NHIS Ex-smoker (finding) [facility] Start: 1940 Sex Assigned At Male F [facility] Start: 12-31-2023 No alcohol use No alcohol use -Nor [facility] 250 DO Work Phone: Comment on above: quit smoking in 2020 ; Start: 12-31-2023 Tobacco smoking stat us WAIS Never smoked tobacco [facility] Start: 01-30-2024 End: 10-05-2024 Alcoholic beverage intake Lifetime non-drinker (finding) [facility] Start: 1940 Sex assigned at Not on file [facility] Start: 07-15-2024 End: 12-14-2024 Sex Male (finding) [facility] Start: 10-11-2024 End: 10-22-2024 Tobacco smoking status WAIS Current some day smoker [facility] Start: 10-12-2024 SDOH Follow up SDOH Follow up [facility] Work Phone: Medical Equipment Procedure Code Equipment Code Equipment Origin al Text Equipment Identifier Dates HUMERUS FRACTURE ORIF Alissa CRISTINAEdward 05/01/21 Unknown Arm L FDA Start: 05-01-2021 HUMERUS FRACTURE ORIF Alissa CRISTINARicas K. 05/01/21 Unknown Arm L FDA Start: 05-01-2021 HUMERUS FRACTURE ORIF Alissa DOZachEdward K. 05/01/21 Unknown Arm L FDA Start: 05-01-2021 HUMERUS FRACTURE ORIF Alissa CRISTINAZachEdward K. 05/01/21 Unknown Arm L FDA Start: 05-01-2021 HUMERUS FRACTURE ORIF Alissa DOZachEdward K. 05/01/21 Unknown Arm L FDA Start: 05-01-2021 HUMERUS FRACTURE ORIF Alissa DO Edward K. [...] FDA Start: 05-01-2021 HUMERUS FRACTURE ORIF Alissa DO Edward K. [...] 05/01/21 Unknown Arm L FDA Start: 05-01-2021 Start: 11-05-2023 Blood Sugar Diagnostic (Freestyle Lite Strips) strip Start: 11-05-2023 HUMERUS FRACTURE ORIF Alissa CRISTINA, Edward K. [...] Lancets) 28 gauge misc Start: 01-13-2024 End: 01-13-2024 Blood Sugar Diagnostic (Freestyle Lite Strips) strip Start: 01-09-2024 Lancets (Freesty le Lancets) 28 gauge misc Start: 01-13-2024 Pen Needle, Diab etic (Bd Ultra-Fine Mini Pen Needle) 31 gauge x 3/16 needle Start: 02-06-2024 Blood Sugar Diagnostic (Freestyle Lite Strips) strip Start: 11-05-2023 End: 02-05-2024 Lancets (Freesty le Lancets) 28 gauge misc Start: 01-13-2024 End: 01-13-2024 Pen Needle, Diab etic (Bd Ultra-Fine Mini Pen Needle) 31 gauge x 3/16 needle Start: 02-06-2024 End: 02-06-2024 HUMERUS FRACTURE ORIF Maxwell DO, Edward K. [...] Diagnostic (Freestyle Lite Strips) strip Start: 01-09-2024 Lancets (Freesty le Lancets) 28 gauge misc Start: 01-13-2024 Pen Needle, Diab etic (Bd Ultra-Fine Mini Pen Needle) 31 gauge x 3/16 needle Start: 02-06-2024 Blood Sugar Diagnostic (Freestyle Lite Strips) strip Start: 11-05-2023 End: 02-05-2024 Lancets (Freesty le Lancets) 28 gauge misc Start: 01-13-2024 End: 01-13-2024 Pen Needle, Diab etic (Bd Ultra-Fine Mini Pen Needle) 31 gauge x 3/16 needle Start: 02-06-2024 End: 02-06-2024 Blood Sugar Diagnostic (Freestyle Lite Strips) strip Start: 01-09-2024 Lancets (Freesty le Lancets) 28 gauge misc Start: 01-13-2024 Pen Needle, Diab etic (Bd Ultra-Fine Mini Pen Needle) 31 gauge x 3/16 needle Start: 02-06-2024 Blood Sugar Diagnostic (Freestyle Lite Strips) strip Start: 11-05-2023 End: 02-05-2024 Lancets (Freesty le Lancets) 28 gauge misc Start: 01-13-2024 End: 01-13-2024 Pen Needle, Diab etic (Bd Ultra-Fine Mini Pen Needle) 31 gauge x 3/16 needle Start: 02-06-2024 End: 02-06-2024 Blood Sugar Diagnostic (Freestyle Lite Strips) strip Start: 01-09-2024 Lancets (Freesty le Lancets) 28 gauge misc Start: 01-13-2024 Pen Needle, Diab etic (Bd Ultra-Fine Mini Pen Needle) 31 gauge x 3/16 needle Start: 02-06-2024 Blood Sugar Diagnostic (Freestyle Lite Strips) strip Start: 11-05-2023 End: 02-05-2024 Lancets (Freesty le Lancets) 28 gauge misc Start: 01-13-2024 End: 01-13-2024 Pen Needle, Diab etic (Bd Ultra-Fine Mini Pen Needle) 31 gauge x 3/16 needle Start: 02-06-2024 End: 02-06-2024 Blood Sugar Diagnostic (Freestyle Lite Strips) strip Start: 01-09-2024 Lancets (Freesty le Lancets) 28 gauge misc Start: 01-13-2024 Pen Needle, Diab etic (Bd Ultra-Fine Mini Pen Needle) 31 gauge x 3/16 needle Start: 02-06-2024 Blood Sugar Diagnostic (Freestyle Lite Strips) strip Start: 11-05-2023 End: 02-05-2024 Lancets (Freesty le Lancets) 28 gauge misc Start: 01-13-2024 End: 01-13-2024 Pen Needle, Diab etic (Bd Ultra-Fine Mini Pen Needle) 31 gauge x 3/16 needle Start: 02-06-2024 End: 02-06-2024 Blood Sugar Diagnostic (Freestyle Lite Strips) strip Start: 01-09-2024 Lancets (Freesty le Lancets) 28 gauge misc Start: 01-13-2024 Pen Needle, Diab etic (Bd Ultra-Fine Mini Pen Needle) 31 gauge x 3/16 needle Start: 02-06-2024 Blood Sugar Diagnostic (Freestyle Lite Strips) strip Start: 11-05-2023 End: 02-05-2024 Lancets (Freesty le Lancets) 28 gauge misc Start: 01-13-2024 End: 01-13-2024 Pen Needle, Diab etic (Bd Ultra-Fine Mini Pen Needle) 31 gauge x 3/16 needle Start: 02-06-2024 End: 02-06-2024 Blood Sugar Diagnostic (Freestyle Lite Strips) strip Start: 01-09-2024 Lancets (Freesty le Lancets) 28 gauge misc Start: 01-13-2024 Pen Needle, Diab etic (Bd Ultra-Fine Mini Pen Needle) 31 gauge x 3/16 needle Start: 02-06-2024 Blood Sugar Diagnostic (Freestyle Lite Strips) strip Start: 11-05-2023 End: 02-05-2024 Lancets (Freesty le Lancets) 28 gauge misc Start: 01-13-2024 End: 01-13-2024 Pen Needle, Diab etic (Bd Ultra-Fine Mini Pen Needle) 31 gauge x 3/16 needle Start: 02-06-2024 End: 02-06-2024 Blood Sugar Diagnostic (Freestyle Lite Strips) strip Start: 01-09-2024 Lancets (Freesty le Lancets) 28 gauge misc Start: 01-13-2024 Pen Needle, Diab etic (Bd Ultra-Fine Mini Pen Needle) 31 gauge x 3/16 needle Start: 02-06-2024 Blood Sugar Diagnostic (Freestyle Lite Strips) strip Start: 11-05-2023 End: 02-05-2024 Lancets (Freesty le Lancets) 28 gauge misc Start: 01-13-2024 End: 01-13-2024 Pen Needle, Diab etic (Bd Ultra-Fine Mini Pen Needle) 31 gauge x 3/16 needle Start: 02-06-2024 End: 02-06-2024 Blood Sugar Diagnostic (Freestyle Lite Strips) strip Start: 01-09-2024 Lancets (Freesty le Lancets) 28 gauge misc Start: 01-13-2024 Pen Needle, Diab etic (Bd Ultra-Fine Mini Pen Needle) 31 gauge x 3/16 needle Start: 02-06-2024 Blood Sugar Diagnostic (Freestyle Lite Strips) strip Start: 11-05-2023 End: 02-05-2024 Lancets (Freesty le Lancets) 28 gauge misc Start: 01-13-2024 End: 01-13-2024 Pen Needle, Diab etic (Bd Ultra-Fine Mini Pen Needle) 31 gauge x 3/16 needle Start: 02-06-2024 End: 02-06-2024 Blood Sugar Diagnostic (Freestyle Lite Strips) strip Start: 01-09-2024 Lancets (Freesty le Lancets) 28 gauge misc Start: 01-13-2024 Pen Needle, Diab etic (Bd Ultra-Fine Mini Pen Needle) 31 gauge x 3/16 needle Start: 02-06-2024 Blood Sugar Diagnostic (Freestyle Lite Strips) strip Start: 11-05-2023 End: 02-05-2024 Lancets (Freesty le Lancets) 28 gauge misc Start: 01-13-2024 End: 01-13-2024 Pen Needle, Diab etic (Bd Ultra-Fine Mini Pen Needle) 31 gauge x 3/16 needle Start: 02-06-2024 End: 02-06-2024 Blood Sugar Diagnostic (Freestyle Lite Strips) strip Start: 01-09-2024 Lancets (Freesty le Lancets) 28 gauge misc Start: 01-13-2024 Pen Needle, Diab etic (Bd Ultra-Fine Mini Pen Needle) 31 gauge x 3/16 needle Start: 02-06-2024 Blood Sugar Diagnostic (Freestyle Lite Strips) strip Start: 11-05-2023 End: 02-05-2024 Lancets (Freesty le Lancets) 28 gauge misc Start: 01-13-2024 End: 01-13-2024 Pen Needle, Diab etic (Bd Ultra-Fine Mini Pen Needle) 31 gauge x 3/16 needle Start: 02-06-2024 End: 02-06-2024 Goals Date Patient Goal Desired Activity /State Functional Status Date Assessment Result Facility 10-14-2024 Functional status Patient at Baseline [facility] Work Phone: 10-09-2024 Functional status Disability Sta tus Patient at Baseline [facility] Work Phone: 04-15-2024 Functional Status N/A [facility] 09-08-2022 Functional status Patient at Baseline [facility] Work Phone: Mental Status Date Assessment Result Facility 10-09-2024 Cognitive function Cognitive Sta tus Patient at Baseline [facility] Work Phone: 09-08-2022 Cognitive function Cognitive Sta tus Patient at Baseline [facility] Work Phone: Clinical Notes 12-02-2019 to 12-11-2024 Note Date & Type Note Facility 12-11-2024 Note Patient Education Obstetrics and Gynecology Overactive Bladder, [...] be caused by other factors, such as: ??? Medical conditions: ? Urinary tract infection. ? Infection of nearby tissues. ? Prostate enlargement. ? Bladder stones, inflammation, or tumors. ? Diabetes. ? Muscle or nerve weakness, especially from these conditions: ? A spinal cord injury. ? Stroke. ? Multiple sclerosis. ? Parkinson's disease. ??? Other causes: ? Surgery on the uterus or urethra. ? Drinking too much caffeine or alcohol. ? Certain medicines, especially those that eliminate extra fluid in the body (diuretics). ? Constipation. What increases the risk? You may be at greater risk for overactive bladder if you: ??? Are an older adult. ??? Smoke. ??? Are going through menopause. ??? Have prostate problems. ??? Have a neurological disease, such as stroke, dementia, Parkinson's disease, or multiple sclerosis (MS). ??? Eat or drink alcohol, spicy food, caffeine, and other things that irritate the bladder. ??? Are overweight or obese. What are the signs or symptoms? Symptoms of this condition include a sudden, strong urge to urinate. Other symptoms include: ??? Leaking urine. ??? Urinating 8 or more times a day. ??? Waking up to urinate 2 or more times overnight. How is this diagnosed? This condition may be diagnosed based on: ??? Your symptoms and medical history. ??? A physical exam. ??? Blood or urine tests to check for possible causes, such as infection. You may also need to see a health care provider who specializes in urinary tract problems. This is called a urologist. How is this treated? Treatment for overactive bladder depends on the cause of your condition and whether it is mild or severe. Treatment may include: ??? Bladder training, such as: ? Learning to control the urge to urinate by following a schedule to urinate at regular intervals. ? Doing Kegel exercises to strengthen the pelvic floor muscles that support your bladder. ??? Special devices, such as: ? Biofeedback. This [...] into the vagina and supports the bladder. ??? Medicines, such as: ? Antibiotics to treat bladder infection. ? Antispasmodics to stop the bladder from releasing urine at the wrong time. ? Tricyclic antidepressants to relax bladder muscles. ? Injections of botulinum toxin type A directly into the bladder tissue to relax bladder muscles. ??? Surgery, such as: ? A device may be implanted to help manage the nerve signals that control urination. ? An electrode may be implanted to stimulate electrical signals in the bladder. ? A procedure may be done to change the shape of the bladder. This is done only in very severe cases. Follow these instructions at home: Eating and drinking ??? Make diet or lifestyle changes recommended by [...] such as fried and sweet foods. Lifestyle ??? Lose weight if needed. ??? Do not use any products that contain nicotine or tobacco. These include cigarettes, chewing tobacco, and vaping devices, such as e-cigarettes. If you need help quitting, ask your health care provider. General instructions ??? Take tdkb-[id number] and prescription medicines only as told by your health care provider. ??? If you were prescribed an antibiotic medicine, take it as told by your health care provider. Do not stop taking the antibiotic even if you start to feel better. ??? Use any implants or pessary as told by your health care provider. ??? If needed, wear pads to absorb urine leakage. ??? Keep a log to track how much and when you drink, and whe (more content not included)... [facility] 11-05-2024 Progress note [facility] 10-13-2024 Progress note Note Date/Time October 13, 2024 12:55pm [facility] [address] [place] [address] Hospitalist Progress Note Signed Patient: Jose L Ames MR#: [id number] : 1940 Acct:[id number] Age/Sex: 84 / M Adm Date: 5 Loc: Room: 7G5063-1 Type: ADM IN Attending Dr: West Caraballo MD Copies to: ~ Date of Service: 10/13/2024 Subjective Subjective Narrative: Seen and assessed at bedside with granddaughter present. He states that he is ambulating reasonably well and his bedside RN notes that he is a 'stand-by' assist at this time. He lives at home with his , and is somewhat concerned about getting around under his own power. He was not interested in senior living placement. Patient's granddaughter did ask about acute inpatient rehab,and I stated that he likely would not be a candidate given that he is ambulatingand performing ADLs reasonably well. His vital signs remained stable and normalovernight. Exam Physical Exam Vital Signs: Temp Pulse Resp BP Pulse Ox O2 Del Method 97.8 F 72 18 159/69 H 96 Room Air 10/13/24 08:00 10/13/24 08:00 10/13/24 08:00 10/13/24 08:00 10/13/24 08:00 10/13/24 08:00 Narrative: Constitutional: Elderly WM, resting in bed comfortably HEENT: Moist mucous membranes, neck supple Cardiovascular: RRR, no M/R/G, normal S1 and S2, no JVD Respiratory: Lungs clear to auscultation bilaterally, no wheezes, rales or rhonchi GI: Soft, NTND, normoactive bowel sounds : Deferred Neuro: AAO x3, no focal deficits. CN III-XII grossly intact, Strength 5/5 throughout Extremities: 1+ edema in the bilateral lower extremities Psych: Patient calm, cooperative and conversant Objective Lab Results 10/13/24 03:49 10/13/24 03:49 Meds Allergies and Active Meds Allergies LINDA Inhibitors Allergy (Mild, Verified 07/15/24 14:09) Cough acetaminophen (Tylenol) Allergy (Unknown, Verified 07/15/24 14:09) HYPER Active Meds: Active Medications Generic Name Dose Route Start Last Admin Trade Name Freq PRN Reason Stop Dose Admin Acetaminophen 650 mg 10/09/24 02:17 10/09/24 03:26 Acetaminophen 325 Mg Tablet PO 10/09/25 02:16 650 mg Q6HR PRN Administration Fever or Pain Dextrose 0 gm 10/09/24 02:17 Dextrose 50% In Water 25 Gm/50 Ml Syringe IV-PUSH 10/09/25 02:16 PRN PRN Hypoglycemia Glucose 0 gm 10/09/24 02:17 Dextrose 40% Gel 15 Gm Tube PO 10/09/25 02:16 PRN PRN Hypoglycemia Insulin Aspart 0 units 10/09/24 08:00 10/13/24 12:33 Insulin Aspart 300 Units/3 Ml SUBCUT 10/09/25 07:59 1 units TID.WM.HS SHARI Administration Protocol Loperamide HCl 2 mg 10/09/24 15:26 10/10/24 20:32 Loperamide 2 Mg Capsule PO 10/09/25 15:25 2 mg Q12H PRN Administration Diarrhea Melatonin 3 mg 10/09/24 03:50 10/12/24 21:02 Melatonin 3 Mg Tablet PO 10/09/25 03:49 3 mg QHS SHARI Administration Menthol/Zinc Oxide 1 applic 10/09/24 15:26 Menthol/Zinc Oxide Oint 113 Gm Tube TOPICAL 10/09/25 15:25 TID PRN skin breakdown Pantoprazole Sodium 40 mg 10/11/24 09:00 10/13/24 08:38 Pantoprazole 40 Mg Vial IV-PUSH 10/11/25 08:59 40 mg DAILY SHARI Administration Sodium Chloride 10 ml 10/10/24 12:34 10/12/24 09:45 Sodium Chloride 0.9 % 10 Ml Vial.Pf INJECTION 10/10/25 12:33 10 ml PRN PRN Administration Dilution Sodium Chloride 10 ml 10/10/24 12:34 10/12/24 16:35 Sodium Chloride 0.9 % 10 Ml Syringe IV-PUSH 10/10/25 12:33 10 ml PRN PRN Administration Flush A&P - Hospitalist Assessment/Plan (1) Hypovolemic shock: (2) Sepsis: (3) Gastroenteritis: (4) Syncope: (5) ANGIE (acute kidney injury): Plan Syncope Secondary to Hypovolemic Shock- likely due to GI loss from diarrhea for days -Resolved Suspected sepsis-suspect this is in setting of GI illness and hypovolemia, so may have not been any true sepsis picture ANGIE- likely due to diarrhea, patient reported diarrhea for the last few days>>Improved almost resolved Gastroenteritis, viral vs bacterial Pancytopenia, reactive vs Myeloproliferative disorder? Overall patient significantly improved. He wants to continue to ambulate on hisown today and see if he will be able to care for himself at home. I will restart his torsemide at low-dose due to lower extremity edema on physical exam. Will monitor renal function closely. Diarrhea appears to have resolved. He isplanning on having his bone marrow biopsy on 10/22/2024. I believe this can be done as an outpatient. -Check [facility] for any evidence of positive culture results -Patient is off Levophed and off IV fluids. His BP is stable, improving with noloose bowel movements -Since diarrhea has resolved and patient has lower extremity edema on clinical exam, will restart torsemide at lower dose, 10mg daily -Continue loperamide, diarrhea is significantly improved -Discontinued Zosyn per hematology, as there is no clear source of infection andpatient is empirically treated enough for now -Appreciate GI consult, so far stool workup all came back neg -Nursing team checked with [facility] yesterday blood cultures were still pending,we were not notified of any positive result -Echo showed EF of 55-60% with grade I/IV or mild diastolic dysfunction. Mild valvular stenosis -Carotid doppler was negative for a hemodynamically significant stenosis of either extracranial internal carotid artery. vertebrals were patent bilaterally . -PT/OT recommendations appreciated -For the pancytopenia, obtained LDH, ESR, CRP as well as reticulocyte count and TSH with anemia workup including B12/folic acid/ferritin/iron profile/TIBC -hematology was consulted, given the drop in his white count along with platelets and Hgbt, plan for bone marrow biopsy by IR 10/22/24 Chronic Conditions: Diastolic heart failure- last EF 65% in 2022 T2DM- fingersticks ACHS, SSIC, basal insulin BPH DVT prophylaxis- SCDs, patient has anemia and thrombocytopenia Discussed plan with the patient and his son at bedside. Answered his questions and addressed his concerns Documented By: West Caraballo MD 5 1239 Signed By: <Electronically signed by West Caraballo MD> 10/13/[address] [place] [address] Work Phone: [phone]) 319-360002-11-2025 [place] [address] Hospitalist Progress Note Signed Patient: Jose L Ames MR#: [id number] : 1940 Acct:[id number] Age/Sex: 84 / M Adm Date: 5 Loc: Room: [address] [place] [address] Type: ADM IN Attending Dr: West Caraballo MD Copies to: ~ Date of Service: 10/13/2024 Subjective Subjective Narrative: Seen and assessed at bedside with granddaughter present. He states that he is ambulating reasonablywell and his bedside RN notes that he is a 'stand-by' assist at this time. He lives at home with his , and is somewhat concerned about getting around under his own power. He was not interested inskilled nursing placement. Patient's granddaughter did ask about acute inpatient rehab,and I statedthat he likely would not be a candidate given that he is ambulatingand performing ADLs reasonably well. His vital signs remained stable and normalovernight. Exam Physical Exam Vital Signs: Temp Pulse Resp BP Pulse Ox O2 Del Method 97.8 F 72 18 159/69 H 96 Room Air 10/13/24 08:00 10/13/24 08:00 10/13/24 08:00 10/13/24 08:00 10/13/24 08:00 10/13/24 08:00 Narrative: Constitutional: Elderly WM, resting in bed comfortably HEENT: Moist mucous membranes, neck supple Cardiovascular: RRR, no M/R/G, normal S1 and S2, no JVD Respiratory: Lungs clear to auscultation bilaterally, no wheezes, rales or rhonchi GI: Soft, NTND, normoactive bowel sounds : Deferred Neuro: AAO x3, no focal deficits. CN III-XII grossly intact, Strength 5/5 throughout Extremities: 1+ edema in the bilateral lower extremities Psych: Patient calm, cooperative and conversant Objective Lab Results 10/13/24 03:49 10/13/24 03:49 Meds Allergies and Active Meds Allergies LINDA Inhibitors Allergy (Mild, Verified 07/15/24 14:09) Cough acetaminophen (Tylenol) Allergy (Unknown, Verified 07/15/24 14:09) HYPER Active Meds: Active Medications Generic Name Dose Route Start Last Admin Trade Name Marco A PRN Reason Stop Dose Admin Acetaminophen 650 mg 10/09/24 02:17 10/09/24 03:26 Acetaminophen 325 Mg Tablet PO 10/09/25 02:16 650 mg Q6HR PRN Administration Fever or Pain Dextrose 0 gm 10/09/24 02:17 Dextrose 50% In Water 25 Gm/50 Ml Syringe IV-PUSH 10/09/25 02:16 PRN PRN Hypoglycemia Glucose 0 gm 10/09/24 02:17 Dextrose 40% Gel 15 Gm Tube PO 10/09/25 02:16 PRN PRN Hypoglycemia Insulin Aspart 0 units 10/09/24 08:00 10/13/24 12:33 Insulin Aspart 300 Units/3 Ml SUBCUT 10/09/25 07:59 1 units TID.WM.HS SHARI Administration Protocol Loperamide HCl 2 mg 10/09/24 15:26 10/10/24 20:32 Loperamide 2 Mg Capsule PO 10/09/25 15:25 2 mg Q12H PRN Administration Diarrhea Melatonin 3 mg 10/09/24 03:50 10/12/24 21:02 Melatonin 3 Mg Tablet PO 10/09/25 03:49 3 mg QHS SHARI Administration Menthol/Zinc Oxide 1 applic 10/09/24 15:26 Menthol/Zinc Oxide Oint 113 Gm Tube TOPICAL 10/09/25 15:25 TID PRN skin breakdown Pantoprazole Sodium 40 mg 10/11/24 09:00 10/13/24 08:38 Pantoprazole 40 Mg Vial IV-PUSH 10/11/25 08:59 40 mg DAILY SHARI Administration Sodium Chloride 10 ml 10/10/24 12:34 10/12/24 09:45 Sodium Chloride 0.9 % 10 Ml Vial.Pf INJECTION 10/10/25 12:33 10 ml PRN PRN Administration Dilution Sodium Chloride 10 ml 10/10/24 12:34 10/12/24 16:35 Sodium Chloride 0.9 % 10 Ml Syringe IV-PUSH 10/10/25 12:33 10 ml PRN PRN Administration Flush A&P - Hospitalist Assessment/Plan (1) Hypovolemic shock: (2) Sepsis: (3) Gastroenteritis: (4) Syncope: (5) ANGIE (acute kidney injury): Plan Syncope Secondary to Hypovolemic Shock- likely due to GI loss from diarrhea for days -Resolved Suspected sepsis-suspect this is in setting of GI illness and hypovolemia, so may have not been anytrue sepsis picture ANGIE- likely due to diarrhea, patient reported diarrhea for the last few days>>Improved almostresolved Gastroenteritis, viral vs bacterial Pancytopenia, reactive vs Myeloproliferative disorder? Overall patient significantly improved. He wants to continue to ambulate on hisown today and see ifhe will be able to care for himself at home. I will restart his torsemide at low-dose due to lower extremity edema on physical exam. Will monitor renal function closely. Diarrhea appears to have resolved. He isplanning on having his bone marrow biopsy on 10/22/2024. I believe this can be done as an outpatient. -Check [facility] for any evidence of positive culture results -Patient is off Levophed and off IV fluids. His BP is stable, improving with noloose bowel movements -Since diarrhea has resolved and patient has lower extremity edema on clinical exam, will restart torsemide at lower dose, 10mg daily -Continue loperamide, diarrhea is significantly improved -Discontinued Zosyn per hematology, as there is no clear source of infection andpatient is empirically treated enough for now -Appreciate GI consult, so far stool workup all came back neg -Nursing team checked with [facility] yesterday blood cultures were still pending,we were not notified of any positive result -Echo showed EF of 55-60% with grade I/IV or mild diastolic dysfunction. Mild valvular stenosis -Carotid doppler was negative for a hemodynamically significant stenosis of either extracranial internal carotid artery. vertebrals were patent bilaterally . -PT/OT recommendations appreciated -For the pancytopenia, obtained LDH, ESR, CRP as well as reticulocyte count and TSH with anemia workup including B12/folic acid/ferritin/iron profile/TIBC -hematology was consulted, given the drop in his white count along with platelets and Hgbt, plan for bone marrow biopsy by IR 10/22/24 Chronic Conditions: Diastolic heart failure- last EF 65% in 2022 T2DM- fingersticks ACHS, SSIC, basal insulin BPH DVT prophylaxis- SCDs, patient has anemia and thrombocytopenia Discussed plan with the patient and his son at bedside. Answered his questions and addressed his concerns Documented By: West Caraballo MD 5 1239 Signed By: 10/13/[address] [place], [place] [id number] Progress note Author Javier Murray [facility] Note Date/Time October 12, 2024 12:56pm [facility] [address] [place] [address] Hospitalist Progress Note Signed Patient: Jose L Ames MR#: [id number] : 1940 Acct:[id number] Age/Sex: 84 / M Adm Date: 5 Loc: Room: [address] [place] [address] Type: ADM IN Attending Dr: Javier Murray MD Copies to: ~ Date of Service: 10/12/2024 Subjective Subjective Narrative: Patient seen and examined at bedside. Not in acute distress. No events overnight. No fever or chills. No nausea or vomiting. No loose stools overnight or today, that is much better according to him. He feels weak though. Hematology consulted, recs for bone marrow biopsy. IR scheduling for this Saturday. Exam Physical Exam Vital Signs: Temp Pulse Resp BP Pulse Ox O2 Del Method 98.0 F 76 17 168/76 H 96 Room Air 10/12/24 08:00 10/12/24 12:00 10/12/24 12:00 10/12/24 12:00 10/12/24 12:00 10/12/24 12:00 Narrative: Const General: cooperative HEENT Normal oropharyngeal mucosa without any ulcers or exudates Eyes: Conjunctiva normal Pulmonary Auscultation: clear to auscultation , no crackles, no wheezes Cardiovascular Rate: normal rate Rhythm: regular rhythm Heart Sounds: S1 normal, S2 normal and no murmurs GI Inspection: non-distended Palpation: soft, not firm and nontender. No rigidity or rebound. Deferred Neuro General: alert, awake and oriented x3. No obvious new focal deficit Musculoskeletal: normal range of motion Extrem General: no cyanosis, no pedal edema Psych Appearance: appropriate affect. Grossly normal Objective Lab Results 10/12/24 04:41 10/12/24 04:41 Meds Allergies and Active Meds Allergies LINDA Inhibitors Allergy (Mild, Verified 07/15/24 14:09) Cough acetaminophen (Tylenol) Allergy (Unknown, Verified 07/15/24 14:09) HYPER Active Meds: Active Medications Generic Name Dose Route Start Last Admin Trade Name Freq PRN Reason Stop Dose Admin Acetaminophen 650 mg 10/09/24 02:17 10/09/24 03:26 Acetaminophen 325 Mg Tablet PO 10/09/25 02:16 650 mg Q6HR PRN Administration Fever or Pain Dextrose 0 gm 10/09/24 02:17 Dextrose 50% In Water 25 Gm/50 Ml Syringe IV-PUSH 10/09/25 02:16 PRN PRN Hypoglycemia Glucose 0 gm 10/09/24 02:17 Dextrose 40% Gel 15 Gm Tube PO 10/09/25 02:16 PRN PRN Hypoglycemia Norepinephrine Bitartrate 16 mg in 250 mls @ 4.688 mls/hr 10/09/24 04:30 10/12/24 04:20 Levophed IV 10/09/25 04:29 Not Given .Q24H SHARI Protocol 5 MCG/MIN Magnesium Sulfate 2 gm in 50 mls @ 25 mls/hr 10/12/24 12:20 Magnesium Sulf 2gm-*Swfi* IV 10/12/24 14:19 ONCE ONE Insulin Aspart 0 units 10/09/24 08:00 10/12/24 12:03 Insulin Aspart 300 Units/3 Ml SUBCUT 10/09/25 07:59 1 units TID.WM.HS SHARI Administration Protocol Loperamide HCl 2 mg 10/09/24 15:26 10/10/24 20:32 Loperamide 2 Mg Capsule PO 10/09/25 15:25 2 mg Q12H PRN Administration Diarrhea Melatonin 3 mg 10/09/24 03:50 10/11/24 21:13 Melatonin 3 Mg Tablet PO 10/09/25 03:49 3 mg QHS SHARI Administration Menthol/Zinc Oxide 1 applic 10/09/24 15:26 Menthol/Zinc Oxide Oint 113 Gm Tube TOPICAL 10/09/25 15:25 TID PRN skin breakdown Pantoprazole Sodium 40 mg 10/11/24 09:00 10/12/24 09:45 Pantoprazole 40 Mg Vial IV-PUSH 10/11/25 08:59 40 mg DAILY SHARI Administration Sodium Chloride 10 ml 10/10/24 12:34 10/12/24 09:45 Sodium Chloride 0.9 % 10 Ml Vial.Pf INJECTION 10/10/25 12:33 10 ml PRN PRN Administration Dilution Sodium Chloride 10 ml 10/10/24 12:34 10/12/24 09:45 Sodium Chloride 0.9 % 10 Ml Syringe IV-PUSH 10/10/25 12:33 10 ml PRN PRN Administration Flush A&P - Hospitalist Assessment/Plan (1) Hypovolemic shock: (2) Sepsis: (3) Gastroenteritis: (4) Syncope: (5) ANGIE (acute kidney injury): Plan Syncope secondary to Hypovolemic shock- likely due to GI loss from diarrhea for days -Resolved Suspected sepsis- unknown source of infection- ANGIE- likely due to diarrhea, patient reported diarrhea for the last few days>>Improved almost resolved Gastroenteritis, viral vs bacterial Pancytopenia, reactive vs Myeloproliferative disorder? -Patient is off Levophed and off IV fluids. He is BP is stable, improving with no loose to -Continue loperamide, diarrhea is significantly -Discontinued Zosyn per hematology, as there is no clear source of infection andpatient is empirically treated enough for now -Appreciate GI consult, so far stool workup all came back -Nursing team checked with Rosa yesterday blood cultures were still pending,we were not notified of any positive result -Echo showed EF of 55-60% with grade I/IV or mild diastolic dysfunction. Mild valvular stenosis -Carotid doppler was negative for a hemodynamically significant stenosis of either extracranial internal carotid artery. vertebrals were patent bilaterally . -PT/OT recommendations appreciated -For the pancytopenia, obtained LDH, ESR, CRP as well as reticulocyte count and TSH with anemia workup including B12/folic acid/ferritin/iron profile/TIBC -hematology was consulted, given the drop in his white count along with platelets and Hgbt, plan for bone marrow biopsy by IR this Saturday. Chronic conditions Diastolic heart failure- last EF 65% in 2022 T2DM- fingersticks ACHS, SSIC, basal insulin BPH DVT prophylaxis- SCDs, patient has anemia and thrombocytopenia Discussed plan with the patient and his son at bedside. Answered his questions and addressed his concerns plan for bone marrow biopsy by IR this Saturday. Documented By: Javier Murray MD 10/12/24 12 53 Signed By: <Electronically signed by Javier Murray MD> 10/12/[address] [place] [address] Work Phone: [phone] 157-457602-10-2025 [place] [address] Hospitalist Progress Note Signed Patient: Jose L Ames MR#: [id number] [id number] : 1940 Acct:[id number] Age/Sex: 84 / M Adm Date: 5 Loc: Room: [address] [place] [address] Type: ADM IN Attending Dr: Javier Murray MD Copies to: ~ Date of Service: 10/12/2024 Subjective Subjective Narrative: Patient seen and examined at bedside. Not in acute distress. No events overnight. No fever or chills. No nausea or vomiting. No loose stools overnight or today, that is much better according to him. He feels weak though. Hematology consulted, recs for bone marrow biopsy. IR scheduling for this Saturday. Exam Physical Exam Vital Signs: Temp Pulse Resp BP Pulse Ox O2 Del Method 98.0 F 76 17 168/76 H 96 Room Air 10/12/24 08:00 10/12/24 12:00 10/12/24 12:00 10/12/24 12:00 10/12/24 12:00 10/12/24 12:00 Narrative: Const General: cooperative HEENT Normal oropharyngeal mucosa without any ulcers or exudates Eyes: Conjunctiva normal Pulmonary Auscultation: clear to auscultation , no crackles, no wheezes Cardiovascular Rate: normal rate Rhythm: regular rhythm Heart Sounds: S1 normal, S2 normal and no murmurs GI Inspection: non-distended Palpation: soft, not firm and nontender. No rigidity or rebound. Deferred Neuro General: alert, awake and oriented x3. No obvious new focal deficit Musculoskeletal: normal range of motion Extrem General: no cyanosis, no pedal edema Psych Appearance: appropriate affect. Grossly normal Objective Lab Results 10/12/24 04:41 10/12/24 04:41 Meds Allergies and Active Meds Allergies LINDA Inhibitors Allergy (Mild, Verified 07/15/24 14:09) Cough acetaminophen (Tylenol) Allergy (Unknown, Verified 07/15/24 14:09) HYPER Active Meds: Active Medications Generic Name Dose Route Start Last Admin Trade Name Freq PRN Reason Stop Dose Admin Acetaminophen 650 mg 10/09/24 02:17 10/09/24 03:26 Acetaminophen 325 Mg Tablet PO 10/09/25 02:16 650 mg Q6HR PRN Administration Fever or Pain Dextrose 0 gm 10/09/24 02:17 Dextrose 50% In Water 25 Gm/50 Ml Syringe IV-PUSH 10/09/25 02:16 PRN PRN Hypoglycemia Glucose 0 gm 10/09/24 02:17 Dextrose 40% Gel 15 Gm Tube PO 10/09/25 02:16 PRN PRN Hypoglycemia Norepinephrine Bitartrate 16 mg in 250 mls @ 4.688 mls/hr 10/09/24 04:30 10/12/24 04:20 Levophed IV 10/09/25 04:29 Not Given .Q24H SHARI Protocol 5 MCG/MIN Magnesium Sulfate 2 gm in 50 mls @ 25 mls/hr 10/12/24 12:20 Magnesium Sulf 2gm-*Swfi* IV 10/12/24 14:19 ONCE ONE Insulin Aspart 0 units 10/09/24 08:00 10/12/24 12:03 Insulin Aspart 300 Units/3 Ml SUBCUT 10/09/25 07:59 1 units TID.WM.HS SHARI Administration Protocol Loperamide HCl 2 mg 10/09/24 15:26 10/10/24 20:32 Loperamide 2 Mg Capsule PO 10/09/25 15:25 2 mg Q12H PRN Administration Diarrhea Melatonin 3 mg 10/09/24 03:50 10/11/24 21:13 Melatonin 3 Mg Tablet PO 10/09/25 03:49 3 mg QHS SHARI Administration Menthol/Zinc Oxide 1 applic 10/09/24 15:26 Menthol/Zinc Oxide Oint 113 Gm Tube TOPICAL 10/09/25 15:25 TID PRN skin breakdown Pantoprazole Sodium 40 mg 10/11/24 09:00 10/12/24 09:45 Pantoprazole 40 Mg Vial IV-PUSH 10/11/25 08:59 40 mg DAILY SHARI Administration Sodium Chloride 10 ml 10/10/24 12:34 10/12/24 09:45 Sodium Chloride 0.9 % 10 Ml Vial.Pf INJECTION 10/10/25 12:33 10 ml PRN PRN Administration Dilution Sodium Chloride 10 ml 10/10/24 12:34 10/12/24 09:45 Sodium Chloride 0.9 % 10 Ml Syringe IV-PUSH 10/10/25 12:33 10 ml PRN PRN Administration Flush A&P - Hospitalist Assessment/Plan (1) Hypovolemic shock: (2) Sepsis: (3) Gastroenteritis: (4) Syncope: (5) ANGIE (acute kidney injury): Plan Syncope secondary to Hypovolemic shock- likely due to GI loss from diarrhea for days -Resolved Suspected sepsis- unknown source of infection- ANGIE- likely due to diarrhea, patient reported diarrhea for the last few days>>Improved almostresolved Gastroenteritis, viral vs bacterial Pancytopenia, reactive vs Myeloproliferative disorder? -Patient is off Levophed and off IV fluids. He is BP is stable, improving with no loose to -Continue loperamide, diarrhea is significantly -Discontinued Zosyn per hematology, as there is no clear source of infection andpatient is empirically treated enough for now -Appreciate GI consult, so far stool workup all came back -Nursing team checked with Rosa yesterday blood cultures were still pending,we were not notified of any positive result -Echo showed EF of 55-60% with grade I/IV or mild diastolic dysfunction. Mild valvular stenosis -Carotid doppler was negative for a hemodynamically significant stenosis of either extracranial internal carotid artery. vertebrals were patent bilaterally . -PT/OT recommendations appreciated -For the pancytopenia, obtained LDH, ESR, CRP as well as reticulocyte count and TSH with anemia workup including B12/folic acid/ferritin/iron profile/TIBC -hematology was consulted, given the drop in his white count along with platelets and Hgbt, plan for bone marrow biopsy by IR this Saturday. Chronic conditions Diastolic heart failure- last EF 65% in 2022 T2DM- fingersticks ACHS, SSIC, basal insulin BPH DVT prophylaxis- SCDs, patient has anemia and thrombocytopenia Discussed plan with the patient and his son at bedside. Answered his questions and addressed his concerns plan for bone marrow biopsy by IR this Saturday. Documented By: Javier Murray MD 10/12/24 12 53 Signed By: 10/12/[address] [place], [place] 4274902-10-2025 Progress note Author Loyda Carlos [facility] Note Date/Time October 11, 2024 1 0:02pm [facility] [address] [place] [address] Hospitalist Progress Note Signed with Addenda Patient: Jose L Ames MR#: [id number] : 1940 Acct:[id number] Age/Sex: 84 / M Adm Date: 5 Loc: Room: [address] [place] [address] Type: ADM IN Attending Dr: Loyda Carlos MD Copies to: ~ ADDENDUM1 Tried to call Angle the pt's daughter over the cell phone, could not get a hold of her Addendum Documented By: Loyda Carlos MD 10/11/242201 Addendum Signed By: <Electronically signed by Loyda Carlos MD> 10/11/242201 Date of Service: 10/11/2024 Subjective Subjective Narrative: Patient seen and examined at bedside. Not in acute distress. No events overnight. No fever or chills. No nausea or vomiting. No loose stools today. He worked with PT yesterday, states that his energy levels have improved compared to when he first came in. Exam Physical Exam Vital Signs: Temp Pulse Resp BP Pulse Ox O2 Del Method 98.6 F 88 16 156/72 H 93 L Room Air 10/11/24 09:00 10/11/24 09:00 10/11/24 09:00 10/11/24 09:00 10/11/24 09:00 10/11/24 09:00 Narrative: CONSTANT- Ill appearing, not in acute distress. Follows commands, and conversant HEAD - Normocephalic and atraumatic EENT-Sclera nonicteric, conjunctive are pale, dry oral mucosa, pharynx clear NECK-Supple, no cervical lymphadenopathy, no thyromegaly, no JVD CARDIAC-normal rate, regular rhythm, S1 & S2, no abnormal heart sounds PULM-diminished without wheeze or rhonchi, RA, no accessory muscle use or cough noted ABD - Soft. Bowel sounds are normal. No distention. No tenderness EXTREM-no edema BLE calves, nontender SKIN- W/D good turgor, red rash to groin, redness to inner thighs MS- MAEX4 spontaneously with equal with equal strength?generalized weakness NEURO- A&Ox3 speech clear and tongue midline, equal facial symmetry, no focal motor deficits, did not assess gait as pt reporting shakiness and weakness when he tries to stand up or ambulate, however no focal sensory or motor deficits Objective Lab Results 10/11/24 08:24 10/11/24 08:24 Meds Allergies and Active Meds Allergies LINDA Inhibitors Allergy (Mild, Verified 07/15/24 14:09) Cough acetaminophen (Tylenol) Allergy (Unknown, Verified 07/15/24 14:09) HYPER Active Meds: Active Medications Generic Name Dose Route Start Last Admin Trade Name Freq PRN Reason Stop Dose Admin Acetaminophen 650 mg 10/09/24 02:17 10/09/24 03:26 Acetaminophen 325 Mg Tablet PO 10/09/25 02:16 650 mg Q6HR PRN Administration Fever or Pain Dextrose 0 gm 10/09/24 02:17 Dextrose 50% In Water 25 Gm/50 Ml Syringe IV-PUSH 10/09/25 02:16 PRN PRN Hypoglycemia Glucose 0 gm 10/09/24 02:17 Dextrose 40% Gel 15 Gm Tube PO 10/09/25 02:16 PRN PRN Hypoglycemia Norepinephrine Bitartrate 16 mg in 250 mls @ 4.688 mls/hr 10/09/24 04:30 10/11/24 05:19 Levophed IV 10/09/25 04:29 Not Given .Q24H SHARI Protocol 5 MCG/MIN Piperacillin Sod/Tazobactam Sod 3.375 gm in 100 mls @ 25 mls/hr 10/09/24 16:00 10/11/24 08:40 Zosyn IV 25 mls/hr Q8H SHARI Administration Insulin Aspart 0 units 10/09/24 08:00 10/11/24 08:39 Insulin Aspart 300 Units/3 Ml SUBCUT 10/09/25 07:59 Not Given TID.WM.HS SHARI Protocol Loperamide HCl 2 mg 10/09/24 15:26 10/10/24 20:32 Loperamide 2 Mg Capsule PO 10/09/25 15:25 2 mg Q12H PRN Administration Diarrhea Melatonin 3 mg 10/09/24 03:50 10/10/24 23:15 Melatonin 3 Mg Tablet PO 10/09/25 03:49 3 mg QHS SHARI Administration Menthol/Zinc Oxide 1 applic 10/09/24 15:26 Menthol/Zinc Oxide Oint 113 Gm Tube TOPICAL 10/09/25 15:25 TID PRN skin breakdown Pantoprazole Sodium 40 mg 10/11/24 09:00 10/11/24 08:40 Pantoprazole 40 Mg Vial IV-PUSH 10/11/25 08:59 40 mg DAILY SHARI Administration Sodium Chloride 10 ml 10/10/24 12:34 Sodium Chloride 0.9 % 10 Ml Vial.Pf INJECTION 10/10/25 12:33 PRN PRN Dilution Sodium Chloride 10 ml 10/10/24 12:34 Sodium Chloride 0.9 % 10 Ml Syringe IV-PUSH 10/10/25 12:33 PRN PRN Flush A&P - Hospitalist Assessment/Plan (1) Hypovolemic shock: (2) Sepsis: (3) Gastroenteritis: (4) Syncope: (5) ANGIE (acute kidney injury): Plan Syncope secondary to Hypovolemic shock- likely due to GI loss from diarrhea for days -Resolved Suspected sepsis- unknown source of infection- ANGIE- likely due to diarrhea, patient reported diarrhea for the last few days>>Improved almost resolved Gastroenteritis, viral vs bacterial Pancytopenia, reactive vs Myeloproliferative disorder? -Patient is off Levophed and off IV fluids. He is BP is stable, improving with no loose to -Continue loperamide, diarrhea is significantly -Continue Zosyn IV as per dose by pharmacy, I would stop Zosyn in 2 days as there is no clear source of infection and patient is empirically treated enough for now -Appreciate GI consult, so far stool workup all came back -Nursing team checked with [facility] yesterday blood cultures were still pending,we were not notified of any positive result -Echo showed EF of 55-60% with grade I/IV or mild diastolic dysfunction. Mild valvular stenosis -Carotid doppler was negative for a hemodynamically significant stenosis of either extracranial internal carotid artery. vertebrals were patent bilaterally . -PT/OT recommendations appreciated -For the pancytopenia, I obtained LDH, ESR, CRP as well as reticulocyte count and TSH with anemia workup including B12/folic acid/ferritin/iron profile/TIBC -Will consult hematology given the drop in his white count along with platelets and Hgbt, however it is more of lymphopenia patient is not on steroids to explain that. Chronic conditions Diastolic heart failure- last EF 65% in 2022 T2DM- fingersticks ACHS, SSIC, basal insulin BPH DVT prophylaxis- SCDs, patient has anemia and thrombocytopenia Discussed the plan of plan with the patient at bedside. Answered his questions and addressed his concerns Time Spent With Patient (min): 50 Documented By: Loyda Carlos MD 10/11/24 1127 Signed By: <Electronically signed by Loyda Carlos MD> 10/11/24 9[address] [facility] Work Phone: [phone] 100-491002-09-[address] [address] Hospitalist Progress Note Signed with Paula Patient: Jose L Ames MR#: [id number] 2655 : 1940 Acct:[id number] Age/Sex: 84 / M Adm Date: 5 Loc: 4P Room: 1E1250-9 Type: ADM IN Attending Dr: Loyda Carlos MD Copies to: ~ ADDENDUM1 Tried to call Angle the pt's daughter over the cell phone, could not get a hold of her Addendum Documented By: Loyda Carlos MD 10/11/242201 Addendum Signed By: 10/11/242201 Date of Service: 10/11/2024 Subjective Subjective Narrative: Patient seen and examined at bedside. Not in acute distress. No events overnight. No fever or chills. No nausea or vomiting. No loose stools today. He worked with PT yesterday, states that his energylevels have improved compared to when he first came in. Exam Physical Exam Vital Signs: Temp Pulse Resp BP Pulse Ox O2 Del Method 98.6 F 88 16 156/72 H 93 L Room Air 10/11/24 09:00 10/11/24 09:00 10/11/24 09:00 10/11/24 09:00 10/11/24 09:00 10/11/24 09:00 Narrative: CONSTANT- Ill appearing, not in acute distress. Follows commands, and conversant HEAD - Normocephalic and atraumatic EENT-Sclera nonicteric, conjunctive are pale, dry oral mucosa, pharynx clear NECK-Supple, no cervical lymphadenopathy, no thyromegaly, no JVD CARDIAC-normal rate, regular rhythm, S1 & S2, no abnormal heart sounds PULM-diminished without wheeze or rhonchi, RA, no accessory muscle use or cough noted ABD - Soft. Bowel sounds are normal. No distention. No tenderness EXTREM-no edema BLE calves, nontender SKIN- W/D good turgor, red rash to groin, redness to inner thighs MS- MAEX4 spontaneously with equal with equal strength?generalized weakness NEURO- A&Ox3 speech clear and tongue midline, equal facial symmetry, no focal motor deficits, did not assess gait as pt reporting shakiness and weakness when he tries to stand up or ambulate, however no focal sensory or motor deficits Objective Lab Results 10/11/24 08:24 10/11/24 08:24 Meds Allergies and Active Meds Allergies LINDA Inhibitors Allergy (Mild, Verified 07/15/24 14:09) Cough acetaminophen (Tylenol) Allergy (Unknown, Verified 07/15/24 14:09) HYPER Active Meds: Active Medications Generic Name Dose Route Start Last Admin Trade Name Freq PRN Reason Stop Dose Admin Acetaminophen 650 mg 10/09/24 02:17 10/09/24 03:26 Acetaminophen 325 Mg Tablet PO 10/09/25 02:16 650 mg Q6HR PRN Administration Fever or Pain Dextrose 0 gm 10/09/24 02:17 Dextrose 50% In Water 25 Gm/50 Ml Syringe IV-PUSH 10/09/25 02:16 PRN PRN Hypoglycemia Glucose 0 gm 10/09/24 02:17 Dextrose 40% Gel 15 Gm Tube PO 10/09/25 02:16 PRN PRN Hypoglycemia Norepinephrine Bitartrate 16 mg in 250 mls @ 4.688 mls/hr 10/09/24 04:30 10/11/24 05:19 Levophed IV 10/09/25 04:29 Not Given .Q24H SHARI Protocol 5 MCG/MIN Piperacillin Sod/Tazobactam Sod 3.375 gm in 100 mls @ 25 mls/hr 10/09/24 16:00 10/11/24 08:40 Zosyn IV 25 mls/hr Q8H SHARI Administration Insulin Aspart 0 units 10/09/24 08:00 10/11/24 08:39 Insulin Aspart 300 Units/3 Ml SUBCUT 10/09/25 07:59 Not Given TID.WM.HS SHARI Protocol Loperamide HCl 2 mg 10/09/24 15:26 10/10/24 20:32 Loperamide 2 Mg Capsule PO 10/09/25 15:25 2 mg Q12H PRN Administration Diarrhea Melatonin 3 mg 10/09/24 03:50 10/10/24 23:15 Melatonin 3 Mg Tablet PO 10/09/25 03:49 3 mg QHS SHARI Administration Menthol/Zinc Oxide 1 applic 10/09/24 15:26 Menthol/Zinc Oxide Oint 113 Gm Tube TOPICAL 10/09/25 15:25 TID PRN skin breakdown Pantoprazole Sodium 40 mg 10/11/24 09:00 10/11/24 08:40 Pantoprazole 40 Mg Vial IV-PUSH 10/11/25 08:59 40 mg DAILY SHARI Administration Sodium Chloride 10 ml 10/10/24 12:34 Sodium Chloride 0.9 % 10 Ml Vial.Pf INJECTION 10/10/25 12:33 PRN PRN Dilution Sodium Chloride 10 ml 10/10/24 12:34 Sodium Chloride 0.9 % 10 Ml Syringe IV-PUSH 10/10/25 12:33 PRN PRN Flush A&P - Hospitalist Assessment/Plan (1) Hypovolemic shock: (2) Sepsis: (3) Gastroenteritis: (4) Syncope: (5) ANGIE (acute kidney injury): Plan Syncope secondary to Hypovolemic shock- likely due to GI loss from diarrhea for days -Resolved Suspected sepsis- unknown source of infection- ANGIE- likely due to diarrhea, patient reported diarrhea for the last few days>>Improved almostresolved Gastroenteritis, viral vs bacterial Pancytopenia, reactive vs Myeloproliferative disorder? -Patient is off Levophed and off IV fluids. He is BP is stable, improving with no loose to -Continue loperamide, diarrhea is significantly -Continue Zosyn IV as per dose by pharmacy, I would stop Zosyn in 2 days as there is no clear source of infection and patient is empirically treated enough for now -Appreciate GI consult, so far stool workup all came back -Nursing team checked with [facility] yesterday blood cultures were still pending,we were not notified of any positive result -Echo showed EF of 55-60% with grade I/IV or mild diastolic dysfunction. Mild valvular stenosis -Carotid doppler was negative for a hemodynamically significant stenosis of either extracranial internal carotid artery. vertebrals were patent bilaterally . -PT/OT recommendations appreciated -For the pancytopenia, I obtained LDH, ESR, CRP as well as reticulocyte count and TSH with anemia workup including B12/folic acid/ferritin/iron profile/TIBC -Will consult hematology given the drop in his white count along with platelets and Hgbt, however it is more of lymphopenia patient is not on steroids to explain that. Chronic conditions Diastolic heart failure- last EF 65% in 2022 T2DM- fingersticks ACHS, SSIC, basal insulin BPH DVT prophylaxis- SCDs, patient has anemia and thrombocytopenia Discussed the plan of plan with the patient at bedside. Answered his questions and addressed his concerns Time Spent With Patient (min): 50 Documented By: Loyda Carlos MD 10/11/24 1127 Signed By: 10/11/24 2200 [facility]02-09-2025 Consult note Author Angelo Iglesias [facility] Note Date/Time October 11, 2024 1 :10pm [facility] [address] [place] [address] Med Onc/Hem Consult Note Signed Patient: Jose L Ames MR#: [id number] 2655 : 1940 Acct:[id number] Age/Sex: 84 / M Adm Date: 5 Loc: Room: [address] [place] [address] Type: ADM IN Attending Dr: Loyda Carlos MD Copies to: DO Angelo Delatorre MD Mohamad Akil, MD~ CONSULT DATE: 10/11/2024 REQUESTING PROVIDER: Loyda Carlos MD REASON FOR CONSULT: Acute pancytopenia HISTORY OF PRESENT: Jose L Ames is a 84 year old male seen at the request of the hospitalist service for acute pancytopenia management. Jose L has history of CKD, diastolic heart failure?last EF 65%, BPH, T2DM, HTN, YASMANI, AAA who presented to [facility] emergency room for altered mental status and weakness. [facility] chart review?patient arrived to [facility] via EMS for altered mental status, increased weakness, EMS reported slurred speech, facial droop and extremity weakness. CT of the head was performed which showed no acute intracranial process. tPA was not recommended suggested symptoms were related to generalized weakness. CBC with a white blood cell count of 17.2, otherwise unremarkable. Coags were unremarkable. CMP creatinine 3.09. Initiallactic acid 5.3, repeat 0.7. Blood alcohol less than 3. Nasal swab was negative for influenza and COVID. UA with dark yellow, cloudy urine, negative for bacteria, leukocytes and nitrites, specific gravity greater than 1.03 and 30of protein, did not reflex for culture. Chest x-ray showed no acute intra cardiopulmonary process. CT of the abdomen pelvis showed mild fluid distention of small bowel loops without discrete transition zone which may represent gastroenteritis, early small bowel obstruction not completely excluded. EKG sinus tachycardia, repeat EKG sinus rhythm with first- degree AVB. He did become hypotensive after saline bolus?total of 2.5 L, Levophed drip was started. He was medicated with vancomycin, Zosyn. Weinstein catheter was inserted. He was transferred here as inpatient to the intensive care unit under the care of the hospitalist team. Patient has remote history of at least partial colectomy for diverticulitis. Hereports approximately 3 weeks of diarrhea which has gotten particularly worse 2 to 3 days prior to admission. He reports he more recently has been trying to decrease liquid intake due to diarrhea but had been continuing oral intake with food. He denied prior fever, shaking shivering chills, or sweats. He denies significant cough, sputum production nor significant respiratory complaints. Hedenies chest pain or palpitations. He did not endorse blood in his stool or dark tarry stool. He denies dysuria nor hematuria. He denied history of previous malignancies or ever treated with chemotherapy. He denies dizziness or shortness of breath, nausea or vomiting. He states that he smokes about 1 cigarette a day, denies alcohol or illicit druguse. At [facility], his iron studies were c/w anemia of chronic disease with mildly low iron, TIBC and iron sat. No ferritin was done. B12 and folate were within normal range. he was started on Zosyn since 10/09/24 and since then he has had rapid decline in his WBC, H?H and plt count. Current CBC revealed WBC down from 11 to 2.8, hgb down from 14 to 11. Plt down from 101 to 77. Review of Systems Review of Systems All other systems reviewed & are negative unless noted below or in HPI Constitutional Constitutional: Denies poor appetite and Denies weight loss Eyes Eyes: Denies change in vision and Denies eye discharge ENT Ears, Nose, Mouth, and Throat: Denies nasal discharge, Denies sore throat and Denies vertigo Cardiovascular Cardiovascular: Denies chest pain and Denies dyspnea on exertion Respiratory Respiratory: Denies chest congestion, Denies cough and Denies dyspnea on exertion Gastrointestinal Gastrointestinal: Reports as per HPI Musculoskeletal Musculoskeletal: Denies arthralgias, Denies muscle weakness and Denies numbness Integumentary/Breasts Skin/Breast: Denies change in pigmentation and Denies rash Neurologic Neurologic: Denies numbness and Denies vertigo Psychiatric Psychiatric: Denies anxiety and Denies depression Hematologic/Lymphatic Hematologic/Lymphatic: Denies easy bruising and Denies lymphadenopathy [facility] Medical History (Updated 10/11/24 @ 13:06 by Angelo Iglesias MD) Pancytopenia Chronic kidney disease Medicare annual wellness visit, subsequent Thrombocytopenia Chronic heart failure with preserved ejection fraction (HFpEF) Echo: LVEF 65%, LVH, normal RV size/function, no valve defect - 09/2022 Anemia Vitamin D deficiency 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 Pernicious anemia Mucopurulent chronic bronchitis Lumbar spondylosis 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 Left humeral fracture Iron deficiency anemia due to chronic blood loss Generally unsteady Diverticulosis of colon Chronic diastolic heart failure Benign prostatic hyperplasia with lower urinary tract symptoms Aneurysm of left common iliac artery Abdominal aortic aneurysm, without rupture, unspecified Abdominal aortic aneurysm Chronic venous insufficiency of lower extremity Hypercholesterolemia Cervical spondylosis Nicotine dependence Type 2 diabetes mellitus with hyperglycemia YASMANI (obstructive sleep apnea) HTN (hypertension) Surgical History History of tonsillectomy H/O colonoscopy (~2017) S/P TURP (transurethral resection of prostate) H/O bilateral cataract extraction History of colon resection (~2019) open sigmoid Family History Father Mother Social History Smoking Status: Current some day smoker Tobacco Type: cigarettes Substance Use Type: None Allergies LINDA Inhibitors Allergy (Mild, Verified 07/15/24 14:09) Cough acetaminophen (Tylenol) Allergy (Unknown, Verified 07/15/24 14:09) HYPER Home Medications aspirin 81 mg tablet 81 mg PO DAILY 09/04/22 [History Confirmed 07/15/24] cholecalciferol (vitamin D3) 10 mcg (400 unit) tablet 10 mcg PO DAILY 09/04/22 [History Confirmed 07/15/24] tamsulosin 0.4 mg capsule See Rx Instructions .Route .COMPLEX #90 caps 10/26/23 [Rx Confirmed 07/15/24] insulin glargine 100 unit/mL (3 mL) subcutaneous pen (Lantus Solostar U-100 Insulin) 20 unit subcut DAILY 11/05/23 [History Confirmed 07/15/24] qtbtzstw-gv-efxiz 300 mcg-K 60 mcg-lycop 600 mcg-lutein 300 mcg tablet (Centrum Silver Men) 1 tab PO DAILY 11/05/23 [History Confirmed 07/15/24] torsemide 10 mg tablet 20 mg PO DAILY 11/05/23 [History Confirmed 07/15/24] blood sugar diagnostic (FreeStyle Lite Strips) #100 ea 01/09/24 [Rx Confirmed 07/15/24] blood-glucose meter (FreeStyle Lite Meter kit) #1 ea 01/09/24 [Rx Confirmed 07/15/24] lancets 28 gauge (FreeStyle Lancets) #100 ea 01/13/24 [Rx Confirmed 07/15/24] pen needle, diabetic 31 gauge x 3/16 (BD Ultra-Fine Mini Pen Needle) #100 ea 02/06/24 [Rx Confirmed 07/15/24] ascorbic acid (vitamin C) 500 mg chewable tablet 500 mg PO DAILY 02/20/24 [History Confirmed 07/15/24] potassium chloride 10 mEq tablet,extended release See Rx Instructions .Route .COMPLEX #30 tabs 03/26/24 [Rx Confirmed 07/15/24] semaglutide 0.25 mg or 0.5 mg (2 mg/3 mL) subcutaneous pen injector (Ozempic) See Rx Instructions subcut QWEEK 84 days #9 mL 04/09/24 [Rx Confirmed 07/15/24] clotrimazole-betamethasone 1 %-0.05 % topical cream 1 applic topical BID 30 days#45 grams 05/29/24 [Rx Confirmed 07/15/24] tizanidine 2 mg tablet See Rx Instructions .Route .COMPLEX #30 tabs 06/02/24 [Rx Confirmed 07/15/24] amlodipine 10 mg tablet 5 mg (1/2 x 10 mg) PO BID #30 tabs 07/20/24 [Rx] lisinopril 20 mg tablet 10 mg (1/2 x 20 mg) PO BID #30 tabs 07/20/24 [Rx] Exam Physical Exam Vital Signs: Temp Pulse Resp BP Pulse Ox O2 Del Method 98.6 F 77 16 150/66 H 94 L Room Air 10/11/24 09:00 10/11/24 12:08 10/11/24 12:08 10/11/24 12:08 10/11/24 12:08 10/11/24 12:08 Narrative: CONSTANT- Ill appearing, not in acute distress. Follows commands, and conversant HEAD - Normocephalic and atraumatic EENT-Sclera nonicteric, conjunctive are pale, dry oral mucosa, pharynx clear NECK-Supple, no cervical lymphadenopathy, no thyromegaly, no JVD CARDIAC-normal rate, regular rhythm, S1 & S2, no abnormal heart sounds PULM-diminished without wheeze or rhonchi, RA, no accessory muscle use or cough noted ABD - Soft. Bowel sounds are normal. No distention. No tenderness EXTREM-no edema BLE calves, nontender SKIN- W/D good turgor, red rash to groin, redness to inner thighs MS- MAEX4 spontaneously with equal with equal strength?generalized weakness NEURO- A&Ox3 speech clear and tongue midline, equal facial symmetry, no focal motor deficits, did not assess gait as pt reporting shakiness and weakness when he tries to stand up or ambulate, however no focal sensory or motor deficits LABS 10/11/24 11:55: POC Glucose 147 10/11/24 08:24: Corrected WBC 2.8 L, Uncorrected WBC Count 2.8 L, RBC 3.44 L, Hgb 11.6 L, Hct 33.2 L, MCV 96.6, MCH 33.7, MCHC 34.9, RDW 13.3, Plt Count 73 L, MPV 8.0, Neut % (Auto) 64.7, Lymph % (Auto) 22.0, Bingham % (Auto) 11.4, Eos % (Auto) 1.1, Baso % (Auto) 0.8, Nucleat RBC Rel Count 0.1, Neut # (Auto) 1.8, Lymph # (Auto) 0.6 L, Bingham # (Auto) 0.3, Eos # (Auto) 0.0, Baso # (Auto) 0.0, PHA Creatinine Clear 57.83, Sodium 139, Potassium 3.9, Chloride 113 H, Carbon Dioxide 23.2, Anion Gap 6.7, BUN 12, Creatinine 1.16, Est GFR (CKD-EPI) > 60.0, Glucose 106 H, Calcium 7.5 L, Magnesium 1.7 L, Total Bilirubin 0.3, AST 42 H, ALT 29, Alkaline Phosphatase 48, Total Protein 4.9 L, Albumin 3.0 L, Globulin 1.9, Albumin/Globulin Ratio 1.6 10/10/24 23:11: POC Glucose 134 10/10/24 17:02: POC Glucose 138, POC Glucose Comment Glu2: cleaned meter 10/10/24 15:23: Stool Cryptosporidium PCR Negative, Stl E. histolytica PCR Negative, Stool Giardia Lamblia PCR Negative 10/10/24 04:53: Iron 29 L, TIBC 206 L, Iron Saturation 14.1 L, Transferrin 147 L, Vitamin B12 472, Folate 13.7, TSH 3rd Generation 1.35 Assessment & Plan (1) Pancytopenia: Code(s): D61.818 - Other pancytopenia (2) Diarrhea: Code(s): R19.7 - Diarrhea, unspecified (3) Hypovolemic shock: Code(s): R57.1 - Hypovolemic shock (4) ANGIE (acute kidney injury): Code(s): N17.9 - Acute kidney failure, unspecified (5) Gastroenteritis: Code(s): K52.9 - Noninfective gastroenteritis and colitis, unspecified (6) Sepsis: Code(s): A41.9 - Sepsis, unspecified organism (7) Chronic kidney disease: Qualifiers: Chronic kidney disease stage: stage 3 (moderate) Chronic kidney disease stage 3 subtype: stage 3a (GFR 45-59) Qualified Code(s): N18.31 - Chronic kidney disease, stage 3a Code(s): N18.9 - Chronic kidney disease, unspecified Plan See HPI for details. My suspicion is that his acute pancytopenia is Zosyn related but can not rule out AML or DIC or Septic shock related bone marrow suppression versus copper deficiency or still iron deficiency on top of his anemia of cheonic disease. He was started on Zosyn since 10/09/24 and since then he has had rapid decline in his WBC, H?H and plt count. Current CBC revealed WBC down from 11 to 2.8, hgb down from 14 to 11. Plt down from 101 to 77. PLAN: I ordered Bone marrow biopsy and aspirate for 10/12/24. Copper level, ferritin level, HIV, Chronic hep panel, LDH and coags for DIC labs. I recommend stopping Zosyn and follow CBC with diff daily. If antibiotics still needed, consider antibiotics that does not cause myelosuppression. Will follow the labs along with you. No Active Chemotherapy Documented By: Angelo Iglesias MD 10/11/24 1255 Signed By: <Electronically signed by Angelo Iglesias MD> 10/11/24 131 [facility] Work Phone: [phone] [address] Med Onc/Hem Consult Note Signed Patient: Jose L Ames MR#: [id number] : 1940 Acct:[id number] Age/Sex: 84 / M Adm Date: 5 Loc: Room: [address] [place] [address] Type: ADM IN Attending Dr: Loyda Carlos MD Copies to: DO Angelo Delatorre MD Mohamad Akil, MD~ CONSULT DATE: 10/11/2024 REQUESTING PROVIDER: Loyda Carlos MD REASON FOR CONSULT: Acute pancytopenia HISTORY OF PRESENT: Jose L Ames is a 84 year old male seen at the request of the hospitalist service for acute pancytopenia management. Jose L has history of CKD, diastolic heart failure?last EF 65%, BPH, T2DM, HTN, YASMANI, AAA who presented to [facility] emergency room for altered mental status and weakness. [facility] chart review?patient arrived to [facility] via EMS for altered mental status, increased weakness, EMS reported slurred speech, facial droop and extremity weakness. CT of the head was performed which showed no acute intracranial process. tPA was not recommended suggested symptoms were related to generalized weakness. CBC with a white blood cell count of 17.2, otherwise unremarkable. Coags were unremarkable. CMP creatinine 3.09. Initiallactic acid 5.3, repeat 0.7. Blood alcohol less than 3. Nasal swab was negative for influenza and COVID. UA with dark yellow, cloudy urine, negative for bacteria, leukocytes and nitrites, specific gravity greater than 1.03 and 30of protein, did not reflex for culture. Chest x-ray showed no acute intra cardiopulmonary process. CT of the abdomen pelvis showed mild fluid distention of small bowel loops without discrete transition zone which may represent gastroenteritis, early small bowel obstruction not completely excluded. EKG sinus tachycardia, repeat EKG sinus rhythm with first-degree AVB. He did become hypotensive after saline bolus?total of 2.5 L, Levophed drip was started. He was medicated with vancomycin, Zosyn. Weinstein catheter was inserted. He was transferred here as inpatient to the intensive care unit under the care of the hospitalist team. Patient has remote history of at least partial colectomy for diverticulitis. Hereports approximately 3 weeks of diarrhea which has gotten particularly worse 2 to 3 days prior to admission. He reportshe more recently has been trying to decrease liquid intake due to diarrhea but had been continuing oral intake with food. He denied prior fever, shaking shivering chills, or sweats. He denies significant cough, sputum production nor significant respiratory complaints. Hedenies chest pain or palpitations. He did not endorse blood in his stool or dark tarry stool. He denies dysuria nor hematuria. He denied history of previous malignancies or ever treated with chemotherapy. He denies dizziness or shortness of breath, nausea or vomiting. He states that he smokes about 1 cigarette a day, denies alcohol or illicit druguse. At [facility], his iron studies were c/w anemia of chronic disease with mildly low iron, TIBC and iron sat. No ferritin was done. B12 and folate were within normal range. he was started on Zosyn since 10/09/24 and since then he has had rapid decline in his WBC, H?H and plt count. Current CBC revealed WBC down from 11 to 2.8, hgb down from 14 to 11. Plt down from 101 to 77. Review of Systems Review of Systems All other systems reviewed & are negative unless noted below or in HPI Constitutional Constitutional: Denies poor appetite and Denies weight loss Eyes Eyes: Denies change in vision and Denies eye discharge ENT Ears, Nose, Mouth, and Throat: Denies nasal discharge, Denies sore throat and Denies vertigo Cardiovascular Cardiovascular: Denies chest pain and Denies dyspnea on exertion Respiratory Respiratory: Denies chest congestion, Denies cough and Denies dyspnea on exertion Gastrointestinal Gastrointestinal: Reports as per HPI Musculoskeletal Musculoskeletal: Denies arthralgias, Denies muscle weakness and Denies numbness Integumentary/Breasts Skin/Breast: Denies change in pigmentation and Denies rash Neurologic Neurologic: Denies numbness and Denies vertigo Psychiatric Psychiatric: Denies anxiety and Denies depression Hematologic/Lymphatic Hematologic/Lymphatic: Denies easy bruising and Denies lymphadenopathy [facility] Medical History (Updated 10/11/24 @ 13:06 by Angelo Iglesias MD) Pancytopenia Chronic kidney disease Medicare annual wellness visit, subsequent Thrombocytopenia Chronic heart failure with preserved ejection fraction (HFpEF) Echo: LVEF 65%, LVH, normal RV size/function, no valve defect - 09/2022 Anemia Vitamin D deficiency 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 Pernicious anemia Mucopurulent chronic bronchitis Lumbar spondylosis 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 Left humeral fracture Iron deficiency anemia due to chronic blood loss Generally unsteady Diverticulosis of colon Chronic diastolic heart failure Benign prostatic hyperplasia with lower urinary tract symptoms Aneurysm of left common iliac artery Abdominal aortic aneurysm, without rupture, unspecified Abdominal aortic aneurysm Chronic venous insufficiency of lower extremity Hypercholesterolemia Cervical spondylosis Nicotine dependence Type 2 diabetes mellitus with hyperglycemia YASMANI (obstructive sleep apnea) HTN (hypertension) Surgical History History of tonsillectomy H/O colonoscopy (~2017) S/P TURP (transurethral resection of prostate) H/O bilateral cataract extraction History of colon resection (~2019) open sigmoid Family History Father Mother Social History Smoking Status: Current some day smoker Tobacco Type: cigarettes Substance Use Type: None Allergies LINDA Inhibitors Allergy (Mild, Verified 07/15/24 14:09) Cough acetaminophen (Tylenol) Allergy (Unknown, Verified 07/15/24 14:09) HYPER Home Medications aspirin 81 mg tablet 81 mg PO DAILY 09/04/22 [History Confirmed 07/15/24] cholecalciferol (vitamin D3) 10 mcg (400 unit) tablet 10 mcg PO DAILY 09/04/22 [History Confirmed 07/15/24] tamsulosin 0.4 mg capsule See Rx Instructions .Route .COMPLEX #90 caps 10/26/23 [Rx Confirmed 07/15/24] insulin glargine 100 unit/mL (3 mL) subcutaneous pen (Lantus Solostar U-100 Insulin) 20 unit subcutDAILY 11/05/23 [History Confirmed 07/15/24] htuqrfyt-sd-gjpjt 300 mcg-K 60 mcg-lycop 600 mcg-lutein 300 mcg tablet (Centrum Silver Men) 1 tab PO DAILY 11/05/23 [History Confirmed 07/15/24] torsemide 10 mg tablet 20 mg PO DAILY 11/05/23 [History Confirmed 07/15/24] blood sugar diagnostic (FreeStyle Lite Strips) #100 ea 01/09/24 [Rx Confirmed 07/15/24] blood-glucose meter (FreeStyle Lite Meter kit) #1 ea 01/09/24 [Rx Confirmed 07/15/24] lancets 28 gauge (FreeStyle Lancets) #100 ea 01/13/24 [Rx Confirmed 07/15/24] pen needle, diabetic 31 gauge x 3/16 (BD Ultra-Fine Mini Pen Needle) #100 ea 02/06/24 [Rx Confirmed 07/15/24] ascorbic acid (vitamin C) 500 mg chewable tablet 500 mg PO DAILY 02/20/24 [History Confirmed 07/15/24] potassium chloride 10 mEq tablet,extended release See Rx Instructions .Route .COMPLEX #30 tabs 03/26/24 [Rx Confirmed 07/15/24] semaglutide 0.25 mg or 0.5 mg (2 mg/3 mL) subcutaneous pen injector (Ozempic) See Rx Instructions subcut QWEEK 84 days #9 mL 04/09/24 [Rx Confirmed 07/15/24] clotrimazole-betamethasone 1 %-0.05 % topical cream 1 applic topical BID 30 days#45 grams 05/29/24 [Rx Confirmed 07/15/24] tizanidine 2 mg tablet See Rx Instructions .Route .COMPLEX #30 tabs 06/02/24 [Rx Confirmed 07/15/24] amlodipine 10 mg tablet 5 mg (1/2 x 10 mg) PO BID #30 tabs 07/20/24 [Rx] lisinopril 20 mg tablet 10 mg (1/2 x 20 mg) PO BID #30 tabs 07/20/24 [Rx] Exam Physical Exam Vital Signs: Temp Pulse Resp BP Pulse Ox O2 Del Method 98.6 F 77 16 150/66 H 94 L Room Air 10/11/24 09:00 10/11/24 12:08 10/11/24 12:08 10/11/24 12:08 10/11/24 12:08 10/11/24 12:08 Narrative: CONSTANT- Ill appearing, not in acute distress. Follows commands, and conversant HEAD - Normocephalic and atraumatic EENT-Sclera nonicteric, conjunctive are pale, dry oral mucosa, pharynx clear NECK-Supple, no cervical lymphadenopathy, no thyromegaly, no JVD CARDIAC-normal rate, regular rhythm, S1 & S2, no abnormal heart sounds PULM-diminished without wheeze or rhonchi, RA, no accessory muscle use or cough noted ABD - Soft. Bowel sounds are normal. No distention. No tenderness EXTREM-no edema BLE calves, nontender SKIN- W/D good turgor, red rash to groin, redness to inner thighs MS- MAEX4 spontaneously with equal with equal strength?generalized weakness NEURO- A&Ox3 speech clear and tongue midline, equal facial symmetry, no focal motor deficits, did not assess gait as pt reporting shakiness and weakness when he tries to stand up or ambulate, however no focal sensory or motor deficits LABS 10/11/24 11:55: POC Glucose 147 10/11/24 08:24: Corrected WBC 2.8 L, Uncorrected WBC Count 2.8 L, RBC 3.44 L, Hgb 11.6 L, Hct 33.2 L, MCV 96.6, MCH 33.7, MCHC 34.9, RDW 13.3, Plt Count 73 L, MPV 8.0, Neut % (Auto) 64.7, Lymph % (Auto) 22.0, [place] % (Auto) 11.4, Eos % (Auto) 1.1, Baso % (Auto) 0.8, Nucleat RBC Rel Count 0.1, Neut #(Auto) 1.8, Lymph # (Auto) 0.6 L, Bingham # (Auto) 0.3, Eos # (Auto) 0.0, Baso # (Auto) 0.0, PHA Creatinine Clear 57.83, Sodium 139, Potassium 3.9, Chloride 113 H, Carbon Dioxide 23.2, Anion Gap 6.7, BUN 12, Creatinine 1.16, Est GFR (CKD-EPI) > 60.0, Glucose 106 H, Calcium 7.5 L, Magnesium 1.7 L, Total Bilirubin 0.3, AST 42 H, ALT 29, Alkaline Phosphatase 48, Total Protein 4.9 L, Albumin 3.0 L, Globulin 1.9, Albumin/Globulin Ratio 1.6 10/10/24 23:11: POC Glucose 134 10/10/24 17:02: POC Glucose 138, POC Glucose Comment Glu2: cleaned meter 10/10/24 15:23: Stool Cryptosporidium PCR Negative, Stl E. histolytica PCR Negative, Stool Giardia Lamblia PCR Negative 10/10/24 04:53: Iron 29 L, TIBC 206 L, Iron Saturation 14.1 L, Transferrin 147 L, Vitamin B12 472, Folate 13.7, TSH 3rd Generation 1.35 Assessment & Plan (1) Pancytopenia: Code(s): D61.818 - Other pancytopenia (2) Diarrhea: Code(s): R19.7 - Diarrhea, unspecified (3) Hypovolemic shock: Code(s): R57.1 - Hypovolemic shock (4) ANGIE (acute kidney injury): Code(s): N17.9 - Acute kidney failure, unspecified (5) Gastroenteritis: Code(s): K52.9 - Noninfective gastroenteritis and colitis, unspecified (6) Sepsis: Code(s): A41.9 - Sepsis, unspecified organism (7) Chronic kidney disease: Qualifiers: Chronic kidney disease stage: stage 3 (moderate) Chronic kidney disease stage 3 subtype: stage 3a (GFR 45-59) Qualified Code(s): N18.31 - Chronic kidney disease, stage 3a Code(s): N18.9 - Chronic kidney disease, unspecified Plan See HPI for details. My suspicion is that his acute pancytopenia is Zosyn related but can not rule out AML or DIC or Septic shock related bone marrow suppression versus copper deficiency or still iron deficiency on top of his anemia of cheonic disease. He was started on Zosyn since 10/09/24 and since then he has had rapid decline in his WBC, H?H and plt count. Current CBC revealed WBC down from 11 to 2.8, hgb down from 14 to 11. Plt down from 101 to 77. PLAN: I ordered Bone marrow biopsy and aspirate for 10/12/24. Copper level, ferritin level, HIV, Chronic hep panel, LDH and coags for DIC labs. I recommend stopping Zosyn and follow CBC with diff daily. If antibiotics still needed, consider antibiotics that does not cause myelosuppression. Will follow the labs along with you. No Active Chemotherapy Documented By: Angelo Iglesias MD 10/11/24 1256 Signed By: 10/11/24 1310 [facility]02-09-2025 Progress note Author Loyda Carlos [facility] Note Date/Time October 10, 2024 1 1:33pm [facility] [address] [place] [address] Hospitalist Progress Note Signed Patient: Jose L Ames MR#: [id number] : 1940 Acct:[id number] Age/Sex: 84 / M Adm Date: 5 Loc: Room: [address] [place] [address] Type: ADM IN Attending Dr: Loyda Carlos MD Copies to: ~ Date of Service: 10/10/2024 Subjective Subjective Narrative: Patient seen and examined at bedside. Not in acute distress. No events overnight. No fever or chills. No nausea or vomiting. Still have loose stools. Exam Physical Exam Vital Signs: Temp Pulse Resp BP Pulse Ox O2 Del Method 98.3 F 79 17 119/64 97 Room Air 10/10/24 11:00 10/10/24 12:00 10/10/24 11:00 10/10/24 12:00 10/10/24 11:00 10/10/24 11:00 Narrative: CONSTANT- Ill appearing, not in acute distress. Follows commands, and conversant HEAD - Normocephalic and atraumatic EENT-Sclera nonicteric, conjunctive are pale, dry oral mucosa, pharynx clear NECK-Supple, no cervical lymphadenopathy, no thyromegaly, no JVD CARDIAC-normal rate, regular rhythm, S1 & S2, no abnormal heart sounds PULM-diminished without wheeze or rhonchi, RA, no accessory muscle use or cough noted ABD - Soft. Bowel sounds are normal. No distention. No tenderness EXTREM-no edema BLE calves, nontender SKIN- W/D good turgor, red rash to groin, redness to inner thighs MS- MAEX4 spontaneously with equal with equal strength?generalized weakness NEURO- A&Ox3 speech clear and tongue midline, equal facial symmetry, no focal motor deficits, did not assess gait as pt reporting shakiness and weakness when he tries to stand up or ambulate, however no focal sensory or motor deficits Objective Lab Results 10/10/24 04:53 10/10/24 04:53 Meds Allergies and Active Meds Allergies LINDA Inhibitors Allergy (Mild, Verified 07/15/24 14:09) Cough acetaminophen (Tylenol) Allergy (Unknown, Verified 07/15/24 14:09) HYPER Active Meds: Active Medications Generic Name Dose Route Start Last Admin Trade Name Marco A PRN Reason Stop Dose Admin Acetaminophen 650 mg 10/09/24 02:17 10/09/24 03:26 Acetaminophen 325 Mg Tablet PO 10/09/25 02:16 650 mg Q6HR PRN Administration Fever or Pain Dextrose 0 gm 10/09/24 02:17 Dextrose 50% In Water 25 Gm/50 Ml Syringe IV-PUSH 10/09/25 02:16 PRN PRN Hypoglycemia Glucose 0 gm 10/09/24 02:17 Dextrose 40% Gel 15 Gm Tube PO 10/09/25 02:16 PRN PRN Hypoglycemia Heparin Sodium (Porcine) 5,000 unit 10/09/24 09:00 10/10/24 08:49 Heparin 5,000 Unit/Ml Vial SUBCUT 10/09/25 08:59 5,000 unit Q12HR SHARI Administration Norepinephrine Bitartrate 16 mg in 250 mls @ 4.688 mls/hr 10/09/24 04:30 10/10/24 06:36 Levophed IV 10/09/25 04:29 Not Given .Q24H SHARI Protocol 5 MCG/MIN Piperacillin Sod/Tazobactam Sod 3.375 gm in 100 mls @ 25 mls/hr 10/09/24 16:00 10/10/24 08:43 Zosyn IV 25 mls/hr Q8H SHARI Administration Insulin Aspart 0 units 10/09/24 08:00 10/10/24 11:45 Insulin Aspart 300 Units/3 Ml SUBCUT 10/09/25 07:59 Not Given TID.WM.HS SHARI Protocol Loperamide HCl 2 mg 10/09/24 15:26 10/10/24 06:37 Loperamide 2 Mg Capsule PO 10/09/25 15:25 2 mg Q12H PRN Administration Diarrhea Melatonin 3 mg 10/09/24 03:50 10/09/24 22:28 Melatonin 3 Mg Tablet PO 10/09/25 03:49 3 mg QHS SHARI Administration Menthol/Zinc Oxide 1 applic 10/09/24 15:26 Menthol/Zinc Oxide Oint 113 Gm Tube TOPICAL 10/09/25 15:25 TID PRN skin breakdown A&P - Hospitalist Assessment/Plan (1) Hypovolemic shock: (2) Sepsis: (3) Gastroenteritis: (4) Syncope: (5) ANGIE (acute kidney injury): Plan Syncope secondary to Hypovolemic shock- likely due to GI loss from diarrhea for days -Resolving Suspected sepsis- unknown source of infection ANGIE- likely due to diarrhea, patient reported diarrhea for the last few days>>Improved almost resolved Gastroenteritis, viral vs bacterial Normocytic anemia, could be dilutional however rule out nutritional deficiencies - Will continue IV fluids and/or levophed with a target MAP of 65 or and more -Continue loperamide, diarrhea is slowing down -Continue Zosyn IV as per dose by pharmacy -Sent stool bacterial panel, consulted GI - Follow blood cultures from [facility] which were drawn when pt was at [place], I asked the nursing team to confirm the blood cultures drawn and to be updated on the results -Appreciate GI input, will follow on stool studies and adjust antimicrobial therapy -Hold nephrotoxic medications -Echo showed EF of 55-60% with grade I/IV or mild diastolic dysfunction. Mild valvular stenosis -Carotid doppler was negative for a hemodynamically significant stenosis of either extracranial internal carotid artery. vertebrals were patent bilaterally . -PT/OT as he was to be get stronger for goes to out of the unit. He can be transferred out of the ICU after the PT/OT evaluation Chronic conditions Diastolic heart failure- last EF 65% in 2022 T2DM- fingersticks ACHS, SSIC, basal insulin BPH DVT prophylaxis- SCDs, patient has anemia and thrombocytopenia Diet- 1800 ADA Code status- Full code I discussed the plan of manage with the patient at bedside. Time Spent With Patient (min): 50 Documented By: Loyda Carlos MD 10/10/24 1225 Signed By: <Electronically signed by Loyda Carlos MD> 10/10/24 8489 [facility] Work Phone: 1(918) 853-435802-08-2025 [place] [address] Hospitalist Progress Note Signed Patient: Jose L Ames MR#: [id number] : 1940 Acct:[id number] Age/Sex: 84 / M Adm Date: 5 Loc: Room: 4S9127-3 Type: ADM IN Attending Dr: Loyda Carlos MD Copies to: ~ Date of Service: 10/10/2024 Subjective Subjective Narrative: Patient seen and examined at bedside. Not in acute distress. No events overnight. No fever or chills. No nausea or vomiting. Still have loose stools. Exam Physical Exam Vital Signs: Temp Pulse Resp BP Pulse Ox O2 Del Method 98.3 F 79 17 119/64 97 Room Air 10/10/24 11:00 10/10/24 12:00 10/10/24 11:00 10/10/24 12:00 10/10/24 11:00 10/10/24 11:00 Narrative: CONSTANT- Ill appearing, not in acute distress. Follows commands, and conversant HEAD - Normocephalic and atraumatic EENT-Sclera nonicteric, conjunctive are pale, dry oral mucosa, pharynx clear NECK-Supple, no cervical lymphadenopathy, no thyromegaly, no JVD CARDIAC-normal rate, regular rhythm, S1 & S2, no abnormal heart sounds PULM-diminished without wheeze or rhonchi, RA, no accessory muscle use or cough noted ABD - Soft. Bowel sounds are normal. No distention. No tenderness EXTREM-no edema BLE calves, nontender SKIN- W/D good turgor, red rash to groin, redness to inner thighs MS- MAEX4 spontaneously with equal with equal strength?generalized weakness NEURO- A&Ox3 speech clear and tongue midline, equal facial symmetry, no focal motor deficits, did not assess gait as pt reporting shakiness and weakness when he tries to stand up or ambulate, however no focal sensory or motor deficits Objective Lab Results 10/10/24 04:53 10/10/24 04:53 Meds Allergies and Active Meds Allergies LINDA Inhibitors Allergy (Mild, Verified 07/15/24 14:09) Cough acetaminophen (Tylenol) Allergy (Unknown, Verified 07/15/24 14:09) HYPER Active Meds: Active Medications Generic Name Dose Route Start Last Admin Trade Name Freq PRN Reason Stop Dose Admin Acetaminophen 650 mg 10/09/24 02:17 10/09/24 03:26 Acetaminophen 325 Mg Tablet PO 10/09/25 02:16 650 mg Q6HR PRN Administration Fever or Pain Dextrose 0 gm 10/09/24 02:17 Dextrose 50% In Water 25 Gm/50 Ml Syringe IV-PUSH 10/09/25 02:16 PRN PRN Hypoglycemia Glucose 0 gm 10/09/24 02:17 Dextrose 40% Gel 15 Gm Tube PO 10/09/25 02:16 PRN PRN Hypoglycemia Heparin Sodium (Porcine) 5,000 unit 10/09/24 09:00 10/10/24 08:49 Heparin 5,000 Unit/Ml Vial SUBCUT 10/09/25 08:59 5,000 unit Q12HR SHARI Administration Norepinephrine Bitartrate 16 mg in 250 mls @ 4.688 mls/hr 10/09/24 04:30 10/10/24 06:36 Levophed IV 10/09/25 04:29 Not Given .Q24H SHARI Protocol 5 MCG/MIN Piperacillin Sod/Tazobactam Sod 3.375 gm in 100 mls @ 25 mls/hr 10/09/24 16:00 10/10/24 08:43 Zosyn IV 25 mls/hr Q8H SHARI Administration Insulin Aspart 0 units 10/09/24 08:00 10/10/24 11:45 Insulin Aspart 300 Units/3 Ml SUBCUT 10/09/25 07:59 Not Given TID.WM.[facility] Protocol Loperamide HCl 2 mg 10/09/24 15:26 10/10/24 06:37 Loperamide 2 Mg Capsule PO 10/09/25 15:25 2 mg Q12H PRN Administration Diarrhea Melatonin 3 mg 10/09/24 03:50 10/09/24 22:28 Melatonin 3 Mg Tablet PO 10/09/25 03:49 3 mg QHS SHARI Administration Menthol/Zinc Oxide 1 applic 10/09/24 15:26 Menthol/Zinc Oxide Oint 113 Gm Tube TOPICAL 10/09/25 15:25 TID PRN skin breakdown A&P - Hospitalist Assessment/Plan (1) Hypovolemic shock: (2) Sepsis: (3) Gastroenteritis: (4) Syncope: (5) ANGIE (acute kidney injury): Plan Syncope secondary to Hypovolemic shock- likely due to GI loss from diarrhea for days -Resolving Suspected sepsis- unknown source of infection ANGIE- likely due to diarrhea, patient reported diarrhea for the last few days>>Improved almostresolved Gastroenteritis, viral vs bacterial Normocytic anemia, could be dilutional however rule out nutritional deficiencies - Will continue IV fluids and/or levophed with a target MAP of 65 or and more -Continue loperamide, diarrhea is slowing down -Continue Zosyn IV as per dose by pharmacy -Sent stool bacterial panel, consulted GI - Follow blood cultures from [facility] which were drawn when pt was at [place], I asked the nursing teamto confirm the blood cultures drawn and to be updated on the results -Appreciate GI input, will follow on stool studies and adjust antimicrobial therapy -Hold nephrotoxic medications -Echo showed EF of 55-60% with grade I/IV or mild diastolic dysfunction. Mild valvular stenosis -Carotid doppler was negative for a hemodynamically significant stenosis of either extracranial internal carotid artery. vertebrals were patent bilaterally . -PT/OT as he was to be get stronger for goes to out of the unit. He can be transferred out of the ICU after the PT/OT evaluation Chronic conditions Diastolic heart failure- last EF 65% in 2022 T2DM- fingersticks ACHS, SSIC, basal insulin BPH DVT prophylaxis- SCDs, patient has anemia and thrombocytopenia Diet- 1800 ADA Code status- Full code I discussed the plan of manage with the patient at bedside. Time Spent With Patient (min): 50 Documented By: Loyda Carlos MD 10/10/245 Signed By: 10/10/24 [facility]3 [facility]02-08-2025 Consult note Author Mateusz Arellano [facility] Note Date/Time October 10, 2024 1 2:09pm [facility] [address] [place] [address] Gastroenterology Consult Note Signed Patient: Jose L Ames MR#: [id number] : 1940 Acct:[id number] Age/Sex: 84 / M Adm Date: 5 Loc: Room: [address] [place] [address] Type: ADM IN Attending Dr: Loyda Carlos MD Copies to: DO Mateusz Delatorre MD Mohamad Akil, MD~ HPI Data of Consult Date of Consultation: 10/10/24 Requesting Physician: Loyda Carlos MD Consult Narrative History of present illness: Mr. Ames is a 84 year old male who is admitted with intractable diarrhea, who GIis consulted for diarrhea. He is transferred from [facility] initially for altered mental status and weakness. Currently the patient is mentating fine. History is well recorded in the chart. The patient states that mid last week he developed urgency, lower abdominal cramping and diarrhea. States prior to this his bowel movements were normal at his baseline, 1 formed bowel movement about every 2 days. States that he eats out frequently but denies any sick contacts. No recent travel. Denies any blood in the stool. Denies fevers but thinks he may have had some chills. Patient states that yesterday he had about 8 liquid bowel movements. Thinks this is starting to slow down. Abdominal cramping has improved. Apparently CT scan at the outside hospital showed minimally dilated small bowel with fluid levels consistent with gastroenteritis. Initially at presentation hehad some hemodynamic instability and was hypotensive with ANGIE which is significantly improved. Elevated white count on admission. H&H at baseline. Patient has been on antibiotics for 48 hours. Unfortunately only a C. difficileand bacterial panel (Shigella, Campylobacter and Salmonella) was sent. cc:: CC: Loyda Carlos MD Review of Systems Constitutional Constitutional: Denies poor appetite and Denies weight loss Eyes Eyes: Denies change in vision and Denies eye discharge ENT Ears, Nose, Mouth, and Throat: Denies nasal discharge, Denies sore throat and Denies vertigo Cardiovascular Cardiovascular: Denies chest pain and Denies dyspnea on exertion Respiratory Respiratory: Denies chest congestion, Denies cough and Denies dyspnea on exertion Gastrointestinal Gastrointestinal: Reports as per HPI Musculoskeletal Musculoskeletal: Denies arthralgias, Denies muscle weakness and Denies numbness Integumentary/Breasts Skin/Breast: Denies change in pigmentation and Denies rash Neurologic Neurologic: Denies numbness and Denies vertigo Psychiatric Psychiatric: Denies anxiety and Denies depression Hematologic/Lymphatic Hematologic/Lymphatic: Denies easy bruising and Denies lymphadenopathy [facility] Medical History (Updated 10/09/24 @ 13:11 by Vince Welsh MD) Chronic kidney disease Medicare annual wellness visit, subsequent Thrombocytopenia Chronic heart failure with preserved ejection fraction (HFpEF) Echo: LVEF 65%, LVH, normal RV size/function, no valve defect - 09/2022 Anemia Vitamin D deficiency 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 Pernicious anemia Mucopurulent chronic bronchitis Lumbar spondylosis 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 Left humeral fracture Iron deficiency anemia due to chronic blood loss Generally unsteady Diverticulosis of colon Chronic diastolic heart failure Benign prostatic hyperplasia with lower urinary tract symptoms Aneurysm of left common iliac artery Abdominal aortic aneurysm, without rupture, unspecified Abdominal aortic aneurysm Chronic venous insufficiency of lower extremity Hypercholesterolemia Cervical spondylosis Nicotine dependence Type 2 diabetes mellitus with hyperglycemia YASMANI (obstructive sleep apnea) HTN (hypertension) Surgical History History of tonsillectomy H/O colonoscopy (~2017) S/P TURP (transurethral resection of prostate) H/O bilateral cataract extraction History of colon resection (~2019) open sigmoid Family History Father Mother Social History Smoking Status: Current some day smoker Tobacco Type: cigarettes Substance Use Type: None Meds Medications and Allergies Allergies LINDA Inhibitors Allergy (Mild, Verified 07/15/24 14:09) Cough acetaminophen (Tylenol) Allergy (Unknown, Verified 07/15/24 14:09) HYPER Home Medications aspirin 81 mg tablet 81 mg PO DAILY 09/04/22 [History Confirmed 07/15/24] cholecalciferol (vitamin D3) 10 mcg (400 unit) tablet 10 mcg PO DAILY 09/04/22 [History Confirmed 07/15/24] tamsulosin 0.4 mg capsule See Rx Instructions .Route .COMPLEX #90 caps 10/26/23 [Rx Confirmed 07/15/24] insulin glargine 100 unit/mL (3 mL) subcutaneous pen (Lantus Solostar U-100 Insulin) 20 unit subcut DAILY 11/05/23 [History Confirmed 07/15/24] oavvfnei-uq-mxbfv 300 mcg-K 60 mcg-lycop 600 mcg-lutein 300 mcg tablet (Centrum Silver Men) 1 tab PO DAILY 11/05/23 [History Confirmed 07/15/24] torsemide 10 mg tablet 20 mg PO DAILY 11/05/23 [History Confirmed 07/15/24] blood sugar diagnostic (FreeStyle Lite Strips) #100 ea 01/09/24 [Rx Confirmed 07/15/24] blood-glucose meter (FreeStyle Lite Meter kit) #1 ea 01/09/24 [Rx Confirmed 07/15/24] lancets 28 gauge (FreeStyle Lancets) #100 ea 01/13/24 [Rx Confirmed 07/15/24] pen needle, diabetic 31 gauge x 3/16 (BD Ultra-Fine Mini Pen Needle) #100 ea 02/06/24 [Rx Confirmed 07/15/24] ascorbic acid (vitamin C) 500 mg chewable tablet 500 mg PO DAILY 02/20/24 [History Confirmed 07/15/24] potassium chloride 10 mEq tablet,extended release See Rx Instructions .Route .COMPLEX #30 tabs 03/26/24 [Rx Confirmed 07/15/24] semaglutide 0.25 mg or 0.5 mg (2 mg/3 mL) subcutaneous pen injector (Ozempic) See Rx Instructions subcut QWEEK 84 days #9 mL 04/09/24 [Rx Confirmed 07/15/24] clotrimazole-betamethasone 1 %-0.05 % topical cream 1 applic topical BID 30 days#45 grams 05/29/24 [Rx Confirmed 07/15/24] tizanidine 2 mg tablet See Rx Instructions .Route .COMPLEX #30 tabs 06/02/24 [Rx Confirmed 07/15/24] amlodipine 10 mg tablet 5 mg (1/2 x 10 mg) PO BID #30 tabs 07/20/24 [Rx] lisinopril 20 mg tablet 10 mg (1/2 x 20 mg) PO BID #30 tabs 07/20/24 [Rx] Exam Physical Exam Vital Signs: Temp Pulse Resp BP Pulse Ox O2 Del Method 98.3 F 80 17 125/63 97 Room Air 10/10/24 11:00 10/10/24 11:00 10/10/24 11:00 10/10/24 11:00 10/10/24 11:10/10/24 11:00 Const General: no acute distress and well developed HEENT Head: normocephalic and atraumatic Mouth: moist mucous membranes Eyes Sclera: sclerae normal (no scleral icterus) EOM: EOM intact bilaterally Neck Other: trachea midline Resp Effort & Inspection: normal respiratory effort and able to speak in complete sentences GI Inspection: normal to inspection and non-distended Palpation: soft and nontender Skin General: turgor normal and no jaundice Neuro General: patient alert and patient oriented x3 Psych Appearance: grossly normal Mental Status: mental status grossly normal Results - Gastroenterology Labs Labs: Laboratory Results - last 24 hr 10/09/24 10/09/24 10/09/24 12:34 17:02 20:44 Corrected WBC Uncorrected WBC Count RBC Hgb Hct MCV MCH MCHC RDW Plt Count MPV Neut % (Auto) Lymph % (Auto) [place] % (Auto) Eos % (Auto) Baso % (Auto) Nucleat RBC Rel Count Neut # (Auto) Lymph # (Auto) [place] # (Auto) Eos # (Auto) Baso # (Auto) Toxic Vacuolation Platelet Estimate Plt Morphology Comment RBC Morphology Poikilocytosis Anisocytosis Ovalocytes PHA Creatinine Clear Sodium Potassium Chloride Carbon Dioxide Anion Gap BUN Creatinine Est GFR (CKD-EPI) Glucose POC Glucose 156 133 137 POC Glucose Comment Glu2: cleaned meter Calcium Phosphorus Magnesium Total Bilirubin AST ALT Alkaline Phosphatase Total Protein Albumin Globulin Albumin/Globulin Ratio Stool Shigella PCR Stool Campylobacter PCR Stool Salmonella (PCR) Stool Shiga Toxin (PCR) 10/10/24 10/10/24 10/10/24 02:30 04:53 07:30 Corrected WBC 4.6 Uncorrected WBC Count 4.6 RBC 3.37 L Hgb 11.4 L Hct 32.9 L MCV 97.8 MCH 34.0 MCHC 34.8 RDW 13.7 Plt Count 71 L D MPV 8.3 Neut % (Auto) 69.2 Lymph % (Auto) 11.5 [place] % (Auto) 18.2 Eos % (Auto) 0.5 Baso % (Auto) 0.6 Nucleat RBC Rel Count 0.1 Neut # (Auto) 3.2 Lymph # (Auto) 0.5 L [place] # (Auto) 0.8 Eos # (Auto) 0.0 Baso # (Auto) 0.0 Toxic Vacuolation Slight Platelet Estimate Decreased Plt Morphology Comment Normal RBC Morphology N/A Poikilocytosis Slight Anisocytosis Slight Ovalocytes Slight PHA Creatinine Clear 50.57 Sodium 138 Potassium 3.6 Chloride 115 H Carbon Dioxide 19.4 L Anion Gap 7.2 BUN 21 Creatinine 1.33 H D Est GFR (CKD-EPI) 52.056 Glucose 105 H POC Glucose 99 POC Glucose Comment Calcium 7.4 L Phosphorus 2.4 L Magnesium 1.8 L Total Bilirubin 0.2 L AST 52 H ALT 26 Alkaline Phosphatase 48 Total Protein 4.8 L Albumin 2.9 L Globulin 1.9 Albumin/Globulin Ratio 1.5 Stool Shigella PCR Negative Stool Campylobacter PCR Negative Stool Salmonella (PCR) Negative Stool Shiga Toxin (PCR) Negative 10/10/24 11:35 Corrected WBC Uncorrected WBC Count RBC Hgb Hct MCV MCH MCHC RDW Plt Count MPV Neut % (Auto) Lymph % (Auto) [place] % (Auto) Eos % (Auto) Baso % (Auto) Nucleat RBC Rel Count Neut # (Auto) Lymph # (Auto) [place] # (Auto) Eos # (Auto) Baso # (Auto) Toxic Vacuolation Platelet Estimate Plt Morphology Comment RBC Morphology Poikilocytosis Anisocytosis Ovalocytes PHA Creatinine Clear Sodium Potassium Chloride Carbon Dioxide Anion Gap BUN Creatinine Est GFR (CKD-EPI) Glucose POC Glucose 146 POC Glucose Comment Glu2: cleaned meter Calcium Phosphorus Magnesium Total Bilirubin AST ALT Alkaline Phosphatase Total Protein Albumin Globulin Albumin/Globulin Ratio Stool Shigella PCR Stool Campylobacter PCR Stool Salmonella (PCR) Stool Shiga Toxin (PCR) A&P - Gastroenterology Assessment/Plan (1) Diarrhea: (2) Hypovolemic shock: (3) ANGIE (acute kidney injury): (4) Gastroenteritis: Plan Patients with acute diarrhea need infectious workup. Unfortunately only a stool bacterial pathogen panel was sent which only test for Salmonella, Shigella and Campylobacter. This is not an adequate stool infectious workup and does not replace a stool culture by itself, but can be sent in conjunction with a stool culture. Alternatively to a bacterial panel with C. difficile and stool culture, a GI PCR profile could be sent. -Please send stool infectious workup if positive treat with appropriate antimicrobial regimen. -Patient was meeting sepsis criteria, it does not appear he had any blood cultures sent, I would recommend sending blood cultures as well -Unfortunately as he has been on antibiotics for over 48 hours this has likely sterilized his cultures, so even if he is culture negative I would still recommend giving the patient a full 10 days of treatment -Continue supportive care, fluid and electrolyte replacement therapy Thank you for this consult, little further to add from a GI standpoint. I will peripherally follow. Documented By: Mateusz Arellano MD 10/10/24 1201 Signed By: <Electronically signed by Mateusz Arellano MD> 10/10/24 1209 [facility] Work Phone: [phone]) 566-929702-08-2025 Progress note Author Sergio Oliva [facility] Note Date/Time October 10, 2024 1 0:49am [facility] [address] [place], [place] [id number] Pulmonology Progress Note Signed Patient: Jose L Ames MR#: [id number] 2655 : 1940 Acct:[id number] Age/Sex: 84 / M Adm Date: 5 Loc: Room: [address] [place] [address] Type: ADM IN Attending Dr: Loyda Carlos MD Copies to: ~ Date of Service: 10/10/2024 Subjective Subjective Narrative: No acute events overnight. He has remained off of pressors throughout the evening. No new complaints this morning. Still feels a little bit fatigued butoverall improving. Exam Physical Exam Vital Signs: Temp Pulse Resp BP Pulse Ox O2 Del Method 99.0 F 82 18 142/67 H 94 L Room Air 10/10/24 08:00 10/10/24 09:00 10/10/24 08:00 10/10/24 09:00 10/10/24 08:00 10/10/24 08:00 Narrative: General: AOx3, NAD, resting comfortably sitting up in bed Head: Normocephalic and atraumatic Neck: No obvious elevation of JVP Mouth: Moist mucous membranes Pulmonary: CTAB Cardiovascular: There is a regular rate and rhythm, normal S1 and S2, no murmurs, rubs, gallops Abdomen: Soft, nondistended, nontender to palpation Extremities: There is no clubbing of the upper extremities, there was no lower extremity edema Neurological: follows all commands, no gross focal deficits Psych: mood normal, affect normal Objective Intake and Output I&O - Last 24 Hours: Intake & Output 10/09/24 10/10/24 10/10/24 23:59 07:59 15:59 Intake Total 1100 / 3650 950 / 950 Output Total 525 / 1525 675 / 675 Balance 575 / 2125 275 / 275 Weight 106.3 kg Labs 10/10/24 04:53 10/10/24 04:53 Assessment/Plan Assessment/Plan (1) Hypovolemic shock: (2) ANGIE (acute kidney injury): (3) Diarrhea: (4) Chronic kidney disease: (5) Chronic heart failure with preserved ejection fraction (HFpEF): (6) YASMANI (obstructive sleep apnea): (7) Type 2 diabetes mellitus with hyperglycemia: Plan Assessment: 1. Hypovolemic shock 2. Diarrhea 3. Acute on chronic kidney injury, improving Plan: ? He has been weaned off of pressors ? Continue with volume replacement ? Continue ongoing workup for diarrhea ? His ICU needs have improved, he is okay for transfer out of the ICU from my standpoint, I will sign off Documented By: Sergio Oliva MD 10/10/24 1040 Signed By: <Electronically signed by Sergio Oliva MD> 10/10/24 1049 [facility] Work Phone: [phone]) 547-582802-08-2025 [place] [address] Gastroenterology Consult Note Signed Patient: Jose L Ames MR#: [id number] : 1940 Acct:[id number] Age/Sex: 84 / M Adm Date: 5 Loc: Room: [address] [place] [address] Type: ADM IN Attending Dr: Loyda Carlos MD Copies to: DO Mateusz Delatorre MD Mohamad Akil, MD~ HPI Data of Consult Date of Consultation: 10/10/24 Requesting Physician: Loyda Carlos MD Consult Narrative History of present illness: Mr. Ames is a 84 year old male who is admitted with intractable diarrhea, who GIis consulted for diarrhea. He is transferred from [facility] initially for altered mental status and weakness. Currently the patient is mentating fine. History is well recorded in the chart. The patient states that mid last week he developed urgency, lower abdominal cramping and diarrhea. States prior to this his bowel movements were normal at his baseline, 1 formed bowel movement about every 2 days. States that he eats out frequently but denies any sick contacts. No recent travel. Denies any blood in the stool. Denies fevers but thinks he may have had some chills. Patient states that yesterday he had about 8 liquid bowel movements. Thinks this is starting to slow down. Abdominal cramping has improved. Apparently CT scan at the outside hospital showed minimally dilated small bowel with fluid levels consistent with gastroenteritis. Initially at presentation hehad some hemodynamic instability and washypotensive with ANGIE which is significantly improved. Elevated white count on admission. H&H atbaseline. Patient has been on antibiotics for 48 hours. Unfortunately only a C. difficileand bacterial panel (Shigella, Campylobacter and Salmonella) was sent. cc:: CC: Loyda Carlos MD Review of Systems Constitutional Constitutional: Denies poor appetite and Denies weight loss Eyes Eyes: Denies change in vision and Denies eye discharge ENT Ears, Nose, Mouth, and Throat: Denies nasal discharge, Denies sore throat and Denies vertigo Cardiovascular Cardiovascular: Denies chest pain and Denies dyspnea on exertion Respiratory Respiratory: Denies chest congestion, Denies cough and Denies dyspnea on exertion Gastrointestinal Gastrointestinal: Reports as per HPI Musculoskeletal Musculoskeletal: Denies arthralgias, Denies muscle weakness and Denies numbness Integumentary/Breasts Skin/Breast: Denies change in pigmentation and Denies rash Neurologic Neurologic: Denies numbness and Denies vertigo Psychiatric Psychiatric: Denies anxiety and Denies depression Hematologic/Lymphatic Hematologic/Lymphatic: Denies easy bruising and Denies lymphadenopathy [facility] Medical History (Updated 10/09/24 @ 13:11 by Vince Welsh MD) Chronic kidney disease Medicare annual wellness visit, subsequent Thrombocytopenia Chronic heart failure with preserved ejection fraction (HFpEF) Echo: LVEF 65%, LVH, normal RV size/function, no valve defect - 09/2022 Anemia Vitamin D deficiency 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 Pernicious anemia Mucopurulent chronic bronchitis Lumbar spondylosis 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 Left humeral fracture Iron deficiency anemia due to chronic blood loss Generally unsteady Diverticulosis of colon Chronic diastolic heart failure Benign prostatic hyperplasia with lower urinary tract symptoms Aneurysm of left common iliac artery Abdominal aortic aneurysm, without rupture, unspecified Abdominal aortic aneurysm Chronic venous insufficiency of lower extremity Hypercholesterolemia Cervical spondylosis Nicotine dependence Type 2 diabetes mellitus with hyperglycemia YASMANI (obstructive sleep apnea) HTN (hypertension) Surgical History History of tonsillectomy H/O colonoscopy (~2017) S/P TURP (transurethral resection of prostate) H/O bilateral cataract extraction History of colon resection (~2019) open sigmoid Family History Father Mother Social History Smoking Status: Current some day smoker Tobacco Type: cigarettes Substance Use Type: None Meds Medications and Allergies Allergies LINDA Inhibitors Allergy (Mild, Verified 07/15/24 14:09) Cough acetaminophen (Tylenol) Allergy (Unknown, Verified 07/15/24 14:09) HYPER Home Medications aspirin 81 mg tablet 81 mg PO DAILY 09/04/22 [History Confirmed 07/15/24] cholecalciferol (vitamin D3) 10 mcg (400 unit) tablet 10 mcg PO DAILY 09/04/22 [History Confirmed 07/15/24] tamsulosin 0.4 mg capsule See Rx Instructions .Route .COMPLEX #90 caps 10/26/23 [Rx Confirmed 07/15/24] insulin glargine 100 unit/mL (3 mL) subcutaneous pen (Lantus Solostar U-100 Insulin) 20 unit subcutDAILY 11/05/23 [History Confirmed 07/15/24] ibnavvak-rv-ulygd 300 mcg-K 60 mcg-lycop 600 mcg-lutein 300 mcg tablet (Centrum Silver Men) 1 tab PO DAILY 11/05/23 [History Confirmed 07/15/24] torsemide 10 mg tablet 20 mg PO DAILY 11/05/23 [History Confirmed 07/15/24] blood sugar diagnostic (FreeStyle Lite Strips) #100 ea 01/09/24 [Rx Confirmed 07/15/24] blood-glucose meter (FreeStyle Lite Meter kit) #1 ea 01/09/24 [Rx Confirmed 07/15/24] lancets 28 gauge (FreeStyle Lancets) #100 ea 01/13/24 [Rx Confirmed 07/15/24] pen needle, diabetic 31 gauge x 3/16 (BD Ultra-Fine Mini Pen Needle) #100 ea 02/06/24 [Rx Confirmed 07/15/24] ascorbic acid (vitamin C) 500 mg chewable tablet 500 mg PO DAILY 02/20/24 [History Confirmed 07/15/24] potassium chloride 10 mEq tablet,extended release See Rx Instructions .Route .COMPLEX #30 tabs 03/26/24 [Rx Confirmed 07/15/24] semaglutide 0.25 mg or 0.5 mg (2 mg/3 mL) subcutaneous pen injector (Ozempic) See Rx Instructions subcut QWEEK 84 days #9 mL 04/09/24 [Rx Confirmed 07/15/24] clotrimazole-betamethasone 1 %-0.05 % topical cream 1 applic topical BID 30 days#45 grams 05/29/24 [Rx Confirmed 07/15/24] tizanidine 2 mg tablet See Rx Instructions .Route .COMPLEX #30 tabs 06/02/24 [Rx Confirmed 07/15/24] amlodipine 10 mg tablet 5 mg (1/2 x 10 mg) PO BID #30 tabs 07/20/24 [Rx] lisinopril 20 mg tablet 10 mg (1/2 x 20 mg) PO BID #30 tabs 07/20/24 [Rx] Exam Physical Exam Vital Signs: Temp Pulse Resp BP Pulse Ox O2 Del Method 98.3 F 80 17 125/63 97 Room Air 10/10/24 11:00 10/10/24 11:00 10/10/24 11:00 10/10/24 11:00 10/10/24 11:00 10/10/24 11:00 Const General: no acute distress and well developed HEENT Head: normocephalic and atraumatic Mouth: moist mucous membranes Eyes Sclera: sclerae normal (no scleral icterus) EOM: EOM intact bilaterally Neck Other: trachea midline Resp Effort & Inspection: normal respiratory effort and able to speak in complete sentences GI Inspection: normal to inspection and non-distended Palpation: soft and nontender Skin General: turgor normal and no jaundice Neuro General: patient alert and patient oriented x3 Psych Appearance: grossly normal Mental Status: mental status grossly normal Results - Gastroenterology Labs Labs: Laboratory Results - last 24 hr 10/09/24 10/09/24 10/09/24 12:34 17:02 20:44 Corrected WBC Uncorrected WBC Count RBC Hgb Hct MCV MCH MCHC RDW Plt Count MPV Neut % (Auto) Lymph % (Auto) [place]ingham % (Auto) Eos % (Auto) Baso % (Auto) Nucleat RBC Rel Count Neut # (Auto) Lymph # (Auto) Bingham # (Auto) Eos # (Auto) Baso # (Auto) Toxic Vacuolation Platelet Estimate Plt Morphology Comment RBC Morphology Poikilocytosis Anisocytosis Ovalocytes PHA Creatinine Clear Sodium Potassium Chloride Carbon Dioxide Anion Gap BUN Creatinine Est GFR (CKD-EPI) Glucose POC Glucose 156 133 137 POC Glucose Comment Glu2: cleaned meter Calcium Phosphorus Magnesium Total Bilirubin AST ALT Alkaline Phosphatase Total Protein Albumin Globulin Albumin/Globulin Ratio Stool Shigella PCR Stool Campylobacter PCR Stool Salmonella (PCR) Stool Shiga Toxin (PCR) 10/10/24 10/10/24 10/10/24 02:30 04:53 07:30 Corrected WBC 4.6 Uncorrected WBC Count 4.6 RBC 3.37 L Hgb 11.4 L Hct 32.9 L MCV 97.8 MCH 34.0 MCHC 34.8 RDW 13.7 Plt Count 71 L D MPV 8.3 Neut % (Auto) 69.2 Lymph % (Auto) 11.5 Bingham % (Auto) 18.2 Eos % (Auto) 0.5 Baso % (Auto) 0.6 Nucleat RBC Rel Count 0.1 Neut # (Auto) 3.2 Lymph # (Auto) 0.5 L Bingham # (Auto) 0.8 Eos # (Auto) 0.0 Baso # (Auto) 0.0 Toxic Vacuolation Slight Platelet Estimate Decreased Plt Morphology Comment Normal RBC Morphology N/A Poikilocytosis Slight Anisocytosis Slight Ovalocytes Slight PHA Creatinine Clear 50.57 Sodium 138 Potassium 3.6 Chloride 115 H Carbon Dioxide 19.4 L Anion Gap 7.2 BUN 21 Creatinine 1.33 H D Est GFR (CKD-EPI) 52.056 Glucose 105 H POC Glucose 99 POC Glucose Comment Calcium 7.4 L Phosphorus 2.4 L Magnesium 1.8 L Total Bilirubin 0.2 L AST 52 H ALT 26 Alkaline Phosphatase 48 Total Protein 4.8 L Albumin 2.9 L Globulin 1.9 Albumin/Globulin Ratio 1.5 Stool Shigella PCR Negative Stool Campylobacter PCR Negative Stool Salmonella (PCR) Negative Stool Shiga Toxin (PCR) Negative 10/10/24 11:35 Corrected WBC Uncorrected WBC Count RBC Hgb Hct MCV MCH MCHC RDW Plt Count MPV Neut % (Auto) Lymph % (Auto) Bingham % (Auto) Eos % (Auto) Baso % (Auto) Nucleat RBC Rel Count Neut # (Auto) Lymph # (Auto) Bingham # (Auto) Eos # (Auto) Baso # (Auto) Toxic Vacuolation Platelet Estimate Plt Morphology Comment RBC Morphology Poikilocytosis Anisocytosis Ovalocytes PHA Creatinine Clear Sodium Potassium Chloride Carbon Dioxide Anion Gap BUN Creatinine Est GFR (CKD-EPI) Glucose POC Glucose 146 POC Glucose Comment Glu2: cleaned meter Calcium Phosphorus Magnesium Total Bilirubin AST ALT Alkaline Phosphatase Total Protein Albumin Globulin Albumin/Globulin Ratio Stool Shigella PCR Stool Campylobacter PCR Stool Salmonella (PCR) Stool Shiga Toxin (PCR) A&P - Gastroenterology Assessment/Plan (1) Diarrhea: (2) Hypovolemic shock: (3) ANGIE (acute kidney injury): (4) Gastroenteritis: Plan Patients with acute diarrhea need infectious workup. Unfortunately only a stool bacterial pathogen panel was sent which only test for Salmonella, Shigella and Campylobacter. This is not an adequate stool infectious workup and does not replace a stool culture by itself, but can be sent in conjunction with a stool culture. Alternatively to a bacterial panel with C. difficile and stool culture, a GIPCR profile could be sent. -Please send stool infectious workup if positive treat with appropriate antimicrobial regimen. -Patient was meeting sepsis criteria, it does not appear he had any blood cultures sent, I would recommend sending blood cultures as well -Unfortunately as he has been on antibiotics for over 48 hours this has likely sterilized his cultures, so even if he is culture negative I would still recommend giving the patient a full 10 days of treatment -Continue supportive care, fluid and electrolyte replacement therapy Thank you for this consult, little further to add from a GI standpoint. I will peripherally follow. Documented By: Mateusz Arellano MD 10/10/24 1201 Signed By: 10/10/24 1209 [facility]02-08-2025 [place] [address] Pulmonology Progress Note Signed Patient: Jose L Ames MR#: [id number] 2655 : 1940 Acct:[id number] Age/Sex: 84 / M Adm Date: 5 Loc: Room: [address] [place] [address] Type: ADM IN Attending Dr: Loyda Carlos MD Copies to: ~ Date of Service: 10/10/2024 Subjective Subjective Narrative: No acute events overnight. He has remained off of pressors throughout the evening. No new complaints this morning. Still feels a little bit fatigued butoverall improving. Exam Physical Exam Vital Signs: Temp Pulse Resp BP Pulse Ox O2 Del Method 99.0 F 82 18 142/67 H 94 L Room Air 10/10/24 08:00 10/10/24 09:00 10/10/24 08:00 10/10/24 09:00 10/10/24 08:00 10/10/24 08:00 Narrative: General: AOx3, NAD, resting comfortably sitting up in bed Head: Normocephalic and atraumatic Neck: No obvious elevation of JVP Mouth: Moist mucous membranes Pulmonary: CTAB Cardiovascular: There is a regular rate and rhythm, normal S1 and S2, no murmurs, rubs, gallops Abdomen: Soft, nondistended, nontender to palpation Extremities: There is no clubbing of the upper extremities, there was no lower extremity edema Neurological: follows all commands, no gross focal deficits Psych: mood normal, affect normal Objective Intake and Output I&O - Last 24 Hours: Intake & Output 10/09/24 10/10/24 10/10/24 23:59 07:59 15:59 Intake Total 1100 / 3650 950 / 950 Output Total 525 / 1525 675 / 675 Balance 575 / 2125 275 / 275 Weight 106.3 kg Labs 10/10/24 04:53 10/10/24 04:53 Assessment/Plan Assessment/Plan (1) Hypovolemic shock: (2) ANGIE (acute kidney injury): (3) Diarrhea: (4) Chronic kidney disease: (5) Chronic heart failure with preserved ejection fraction (HFpEF): (6) YASMANI (obstructive sleep apnea): (7) Type 2 diabetes mellitus with hyperglycemia: Plan Assessment: 1. Hypovolemic shock 2. Diarrhea 3. Acute on chronic kidney injury, improving Plan: ? He has been weaned off of pressors ? Continue with volume replacement ? Continue ongoing workup for diarrhea ? His ICU needs have improved, he is okay for transfer out of the ICU from my standpoint, I will sign off Documented By: Sergio Oliva MD 10/10/241039 Signed By: 10/10/24 1049 [facility]02-08-2025 Progress note Author Loyda Carlos [facility] Note Date/Time October 09, 2024 1 0:01pm [facility] [address] [place] [address] Hospitalist Progress Note Signed Patient: Jose L Ames MR#: [id number] : 1940 Acct:[id number] Age/Sex: 84 / M Adm Date: 5 Loc: Room: 7C3642-3 Type: ADM IN Attending Dr: Loyda Carlos MD Copies to: ~ Date of Service: 10/09/2024 Subjective Subjective Narrative: Patient seen and examined at bedside. I received this patient as an overnight admission. His blood pressure remains depended on Levophed, even though requirements are decreasing. He is on IV fluids as well. Managed by ICU. I also had the opportunity to meet with him and his as well as his daughter at bedside. We discussed goals of care patient opted for full code which I updated in the chart. No fever no chills however patient has at least 7-8 episodes of diarrhea during the day. Watery no blood no mucus. C. difficile was negative. Patient is reporting weakness and shakiness whenever he tries to stand up. Exam Physical Exam Vital Signs: Temp Pulse Resp BP Pulse Ox O2 Del Method 98.0 F 92 22 122/57 L 94 L Room Air 10/09/24 12:00 10/09/24 13:00 10/09/24 13:00 10/09/24 13:00 10/09/24 13:00 10/09/24 13:00 Narrative: CONSTANT- Ill appearing, not in acute distress. Follows commands, and conversant HEAD - Normocephalic and atraumatic EENT-Sclera nonicteric, conjunctive are pale, dry oral mucosa, pharynx clear NECK-Supple, no cervical lymphadenopathy, no thyromegaly, no JVD CARDIAC-normal rate, regular rhythm, S1 & S2, no abnormal heart sounds PULM-diminished without wheeze or rhonchi, RA, no accessory muscle use or cough noted ABD - Soft. Bowel sounds are normal. No distention. No tenderness EXTREM-no edema BLE calves, nontender SKIN- W/D good turgor, red rash to groin, redness to inner thighs MS- MAEX4 spontaneously with equal with equal strength?generalized weakness NEURO- A&Ox3 speech clear and tongue midline, equal facial symmetry, no focal motor deficits, did not assess gait as pt reporting shakiness and weakness when he tries to stand up or ambulate, however no focal sensory or motor deficits Objective Lab Results 10/09/24 04:27 10/09/24 04:27 Meds Allergies and Active Meds Allergies LINDA Inhibitors Allergy (Mild, Verified 07/15/24 14:09) Cough acetaminophen (Tylenol) Allergy (Unknown, Verified 07/15/24 14:09) HYPER Active Meds: Active Medications Generic Name Dose Route Start Last Admin Trade Name Sixtoq PRN Reason Stop Dose Admin Acetaminophen 650 mg 10/09/24 02:17 10/09/24 03:26 Acetaminophen 325 Mg Tablet PO 10/09/25 02:16 650 mg Q6HR PRN Administration Fever or Pain Dextrose 0 gm 10/09/24 02:17 Dextrose 50% In Water 25 Gm/50 Ml Syringe IV-PUSH 10/09/25 02:16 PRN PRN Hypoglycemia Glucose 0 gm 10/09/24 02:17 Dextrose 40% Gel 15 Gm Tube PO 10/09/25 02:16 PRN PRN Hypoglycemia Heparin Sodium (Porcine) 5,000 unit 10/09/24 09:00 10/09/24 09:32 Heparin 5,000 Unit/Ml Vial SUBCUT 10/09/25 08:59 5,000 unit Q12HR SHARI Administration Sodium Chloride 1,000 mls @ 100 mls/hr 10/09/24 02:30 10/09/24 13:26 0.9% Sodium Chloride 1,000 Ml IV 10/09/24 22:29 100 mls/hr .Q10H SHARI Administration Norepinephrine Bitartrate 16 mg in 250 mls @ 4.688 mls/hr 10/09/24 04:30 10/09/24 12:15 Levophed IV 10/09/25 04:29 2 mcg/min .Q24H SHARI 1.88 mls/hr Infusion Protocol 5 MCG/MIN Piperacillin Sod/Tazobactam Sod 3.375 gm in 100 mls @ 25 mls/hr 10/09/24 16:00 Zosyn IV Q8H SHARI Insulin Aspart 0 units 10/09/24 08:00 10/09/24 12:35 Insulin Aspart 300 Units/3 Ml SUBCUT 10/09/25 07:59 1 units TID.WM.HS SHARI Administration Protocol Melatonin 3 mg 10/09/24 03:50 10/09/24 03:51 Melatonin 3 Mg Tablet PO 10/09/25 03:49 3 mg QHS SHARI Administration A&P - Hospitalist Assessment/Plan (1) Hypovolemic shock: (2) Sepsis: (3) Gastroenteritis: (4) Syncope: (5) ANGIE (acute kidney injury): Plan Hypovolemic shock- likely due to GI loss from diarrhea for days Suspected sepsis- unknown source of infection ANGIE- likely due to diarrhea, patient reported diarrhea for the last few days Gastroenteritis, viral vs bacterial - Will continue IV fluids and/or levophed with a target MAP of 65 or and more -C diff negative, will start loperamide -Sent stool bacterial panel, consulted GI - Follow blood cultures from [facility] -Hold nephrotoxic medications - Hold b/p medications for now Syncope- likely syncopal episode at home from hypovolemia, hypotension - Carotid US in am, Echo in am - Up with assist, fall precautions - Noted that stroke alert was called at [facility] and deemed by telestroke team due to sepsis/infection Chronic conditions Diastolic heart failure- last EF 65% in 2022 T2DM- fingersticks ACHS, SSIC, basal insulin BPH DVT prophylaxis- SCDs Diet- 1800 ADA Code status- Full code Discussed goals of care and plan of management with pt, his , and his daughter Attending Physician Attestation: I personally reviewed the history, performed the bennett elements of the exam, formulated the plan of care and confirmed the written note. I agree with the findings and plan as documented in this note and have edited it if needed to reflect my findings and plan. Javier Jerry MD Time Spent With Patient (min): 50 Documented By: Loyda Carlos MD 10/09/24 1336 Signed By: <Electronically signed by Loyda Carlos MD> 10/09/24 7265 [facility] Work Phone: [phone]) 291-252802-07-[address] [address] Hospitalist Progress Note Signed Patient: Jose L Ames MR#: [id number] 2655 : 1940 Acct:[id number] Age/Sex: 84 / M Adm Date: 5 Loc: Room: [address] [place] [address] Type: ADM IN Attending Dr: Loyda Carlos MD Copies to: ~ Date of Service: 10/09/2024 Subjective Subjective Narrative: Patient seen and examined at bedside. I received this patient as an overnight admission. His blood pressure remains depended on Levophed, even though requirements are decreasing. He is on IV fluids as well. Managed by ICU. I also had the opportunity to meet with him and his as well as his daughter at bedside. We discussed goals of care patient opted for full code which I updated in the chart. No fever no chills however patient has at least 7-8 episodes of diarrhea during the day. Watery noblood no mucus. C. difficile was negative. Patient is reporting weakness and shakiness whenever he tries to stand up. Exam Physical Exam Vital Signs: Temp Pulse Resp BP Pulse Ox O2 Del Method 98.0 F 92 22 122/57 L 94 L Room Air 10/09/24 12:00 10/09/24 13:00 10/09/24 13:00 10/09/24 13:00 10/09/24 13:00 10/09/24 13:00 Narrative: CONSTANT- Ill appearing, not in acute distress. Follows commands, and conversant HEAD - Normocephalic and atraumatic EENT-Sclera nonicteric, conjunctive are pale, dry oral mucosa, pharynx clear NECK-Supple, no cervical lymphadenopathy, no thyromegaly, no JVD CARDIAC-normal rate, regular rhythm, S1 & S2, no abnormal heart sounds PULM-diminished without wheeze or rhonchi, RA, no accessory muscle use or cough noted ABD - Soft. Bowel sounds are normal. No distention. No tenderness EXTREM-no edema BLE calves, nontender SKIN- W/D good turgor, red rash to groin, redness to inner thighs MS- MAEX4 spontaneously with equal with equal strength?generalized weakness NEURO- A&Ox3 speech clear and tongue midline, equal facial symmetry, no focal motor deficits, did not assess gait as pt reporting shakiness and weakness when he tries to stand up or ambulate, however no focal sensory or motor deficits Objective Lab Results 10/09/24 04:27 10/09/24 04:27 Meds Allergies and Active Meds Allergies LINDA Inhibitors Allergy (Mild, Verified 07/15/24 14:09) Cough acetaminophen (Tylenol) Allergy (Unknown, Verified 07/15/24 14:09) HYPER Active Meds: Active Medications Generic Name Dose Route Start Last Admin Trade Name Freq PRN Reason Stop Dose Admin Acetaminophen 650 mg 10/09/24 02:17 10/09/24 03:26 Acetaminophen 325 Mg Tablet PO 10/09/25 02:16 650 mg Q6HR PRN Administration Fever or Pain Dextrose 0 gm 10/09/24 02:17 Dextrose 50% In Water 25 Gm/50 Ml Syringe IV-PUSH 10/09/25 02:16 PRN PRN Hypoglycemia Glucose 0 gm 10/09/24 02:17 Dextrose 40% Gel 15 Gm Tube PO 10/09/25 02:16 PRN PRN Hypoglycemia Heparin Sodium (Porcine) 5,000 unit 10/09/24 09:00 10/09/24 09:32 Heparin 5,000 Unit/Ml Vial SUBCUT 10/09/25 08:59 5,000 unit Q12HR SHARI Administration Sodium Chloride 1,000 mls @ 100 mls/hr 10/09/24 02:30 10/09/24 13:26 0.9% Sodium Chloride 1,000 Ml IV 10/09/24 22:29 100 mls/hr .Q10H SHARI Administration Norepinephrine Bitartrate 16 mg in 250 mls @ 4.688 mls/hr 10/09/24 04:30 10/09/24 12:15 Levophed IV 10/09/25 04:29 2 mcg/min .Q24H SHARI 1.88 mls/hr Infusion Protocol 5 MCG/MIN Piperacillin Sod/Tazobactam Sod 3.375 gm in 100 mls @ 25 mls/hr 10/09/24 16:00 Zosyn IV Q8H SHARI Insulin Aspart 0 units 10/09/24 08:00 10/09/24 12:35 Insulin Aspart 300 Units/3 Ml SUBCUT 10/09/25 07:59 1 units TID.WM.HS SHARI Administration Protocol Melatonin 3 mg 10/09/24 03:50 10/09/24 03:51 Melatonin 3 Mg Tablet PO 10/09/25 03:49 3 mg QHS SHARI Administration A&P - Hospitalist Assessment/Plan (1) Hypovolemic shock: (2) Sepsis: (3) Gastroenteritis: (4) Syncope: (5) ANGIE (acute kidney injury): Plan Hypovolemic shock- likely due to GI loss from diarrhea for days Suspected sepsis- unknown source of infection ANGIE- likely due to diarrhea, patient reported diarrhea for the last few days Gastroenteritis, viral vs bacterial - Will continue IV fluids and/or levophed with a target MAP of 65 or and more -C diff negative, will start loperamide -Sent stool bacterial panel, consulted GI - Follow blood cultures from [facility] -Hold nephrotoxic medications - Hold b/p medications for now Syncope- likely syncopal episode at home from hypovolemia, hypotension - Carotid US in am, Echo in am - Up with assist, fall precautions - Noted that stroke alert was called at [facility] and deemed by telestroke team due to sepsis/infection Chronic conditions Diastolic heart failure- last EF 65% in 2022 T2DM- fingersticks ACHS, SSIC, basal insulin BPH DVT prophylaxis- SCDs Diet- 1800 ADA Code status- Full code Discussed goals of care and plan of management with pt, his , and his daughter Attending Physician Attestation: I personally reviewed the history, performed the bennett elements of the exam, formulated the plan of care and confirmed the written note. I agree with the findings and plan as documented in this note and have edited it if needed to reflect my findings and plan. Javier Jerry MD Time Spent With Patient (min): 50 Documented By: Loyda Carlos MD 10/09/24 1336 Signed By: 10/09/242200 [facility]02-07-2025 Radiology Diagnostic study note [facility] [address] [place] [address] CT Scan Report Signed Patient: Jose L Ames MR#: [id number] 2655 : 1940 Acct:[id number] Age/Sex: 84 / M ADM Date: 5 Loc: Room: [address] [place] [address] Type: ADM IN Attending Dr: Loyda Carlos MD Copies to: Loyda Carlos MD~ Ordering Provider: Loyda Carlos MD Date of Service: 10/09/24 CT/CT abdomen pelvis wo con: rule out colitis vs progression of SBO CT Abdomen and Pelvis withoutcontrast TECHNIQUE: Axial imaging with 2-D reconstruction. . The CT exam was performed using one or more thefollowing dose reduction techniques: Automated exposure control, adjustment of the MA and/or Kv according to patient size, or use of theiterative reconstruction technique. COMPARISON: 10/08/2024 History: Assessment for progression of colitis versus small bowel obstruction. Back pain. LIMITATIONS: None LOWER THORAX basilar atelectasis/scarring. LIVER: Hepatic steatosis. GALLBLADDER: Cholelithiasis identified. BILE DUCTS: No dilatation SPLEEN: Numerous punctate calcifications consistent with remote granulomatous changes. PANCREAS: Unremarkable ADRENAL GLANDS: Similar adenomatous changes of the adrenal glands. KIDNEYS: nonspecific perinephric stranding. No nephrolithiasis or obstructive uropathy. AORTA: Similar infrarenal abdominal aortic aneurysm measuring 3.8 cm. Extensiveatherosclerosis throughout the abdomen and pelvis. RETROPERITONEUM: No significant retroperitoneal abnormalities identified. MESENTERY:Unremarkable SMALL BOWEL: Similar mild distention of fluid-filled small bowel loops without transition point. APPENDIX: The appendix is not seen. No pericecal inflammatory changes identified. COLON: Distal partial colectomy changes. Nondistended colon with fluid throughout. Consider diarrheal illness. Mild colitis may be present. URINARY BLADDER: Weinstein catheter nondistended urinary bladder with wall thickening. REPRODUCTIVE SYSTEM: Reproductive structures are unremarkable. PNEUMOPERITONEUM: None PERITONEAL FLUID:None BONY STRUCTURES: Multilevel lumbar facet degeneration. ABDOMINAL WALL: Unremarkable CT/CT abdomen pelvis wo con IMPRESSION: Similar mildly distended fluid-filled small bowel loop without transition point. Likelyileus. Findings suggesting diarrheal illness/colitis. Hepatic steatosis. Cholelithiasis. Similar aneurysmal prominence of the infrarenal abdominal aorta. Impression dictated by: Pascual Harris M.D.10/09/2024 4:57 PM Dictation Location: [place] [address] Transcribed By: [facility] 10/09/241656 Dictated By: Pascual Harris DO 10/09/241644 Signed By: 10/09/241656 [facility]02-07-2025 Consult note Author Vince Welsh [facility] Note Date/Time October 09, 2024 1 :16pm [facility] [address] [place] [address] Pulmonology Consult Note Signed Patient: Jose L Ames MR#: [id number] 2655 : 1940 Acct:[id number] Age/Sex: 84 / M Adm Date: 5 Loc: Room: 1G0241-6 Type: ADM IN Attending Dr: Loyda Carlos MD Copies to: DO Vince Delatorre MD Mohamad Akil, MD~ HPI Date/Time of Consultation: Date of Service: 10/09/2024 Time of Service: 13:04 Consulting Provider: Vince Welsh Requesting Provider: Loyda Carlos History of Present Illness History of present illness: Mr. Ames is a 84 year old male seen at the request of the hospitalist service for critical care medicine management. Patient was accepted in transfer from the [facility] emergency department for altered mental status and weakness. Patient has prior history of chronic kidney disease, heart failure with preserved ejection fraction, diabetes mellitus, hypertension, and sleep apnea. Patient has remote history of at least partial colectomy for diverticulitis. He reports approximately 3 weeks of diarrhea which has gotten particularly worse 2 to 3 days prior to admission. He reports he more recently has been trying to decrease liquid intake due to diarrhea but had been continuing oral intake with food. He denied prior fever, shaking shivering chills, or sweats. He denies significant cough, sputum production nor significant respiratory complaints. He denies chest pain or palpitations. He did not endorse blood in his stool or dark tarry stool. He denies dysuria nor hematuria. 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 Left humeral fracture Iron deficiency anemia due to chronic blood loss Generally unsteady Diverticulosis of colon Chronic diastolic heart failure Benign prostatic hyperplasia with lower urinary tract symptoms Aneurysm of left common iliac artery Abdominal aortic aneurysm, without rupture, unspecified Abdominal aortic aneurysm Chronic venous insufficiency of lower extremity Hypercholesterolemia Cervical spondylosis Nicotine dependence Type 2 diabetes mellitus with hyperglycemia YASMANI (obstructive sleep apnea) HTN (hypertension) Surgical History History of tonsillectomy H/O colonoscopy (~2017) S/P TURP (transurethral resection of prostate) H/O bilateral cataract extraction History of colon resection (~2019) open sigmoid Family History Father Mother Social History Smoking Status: Current some day smoker Tobacco Type: cigarettes Substance Use Type: None Meds Medications and Allergies Allergies LINDA Inhibitors Allergy (Mild, Verified 07/15/24 14:09) Cough acetaminophen (Tylenol) Allergy (Unknown, Verified 07/15/24 14:09) HYPER Home Medications aspirin 81 mg tablet 81 mg PO DAILY 09/04/22 [History Confirmed 07/15/24] cholecalciferol (vitamin D3) 10 mcg (400 unit) tablet 10 mcg PO DAILY 09/04/22 [History Confirmed 07/15/24] tamsulosin 0.4 mg capsule See Rx Instructions .Route .COMPLEX #90 caps 10/26/23 [Rx Confirmed 07/15/24] insulin glargine 100 unit/mL (3 mL) subcutaneous pen (Lantus Solostar U-100 Insulin) 20 unit subcut DAILY 11/05/23 [History Confirmed 07/15/24] tumlkovs-fp-kyiqq 300 mcg-K 60 mcg-lycop 600 mcg-lutein 300 mcg tablet (Centrum Silver Men) 1 tab PO DAILY 11/05/23 [History Confirmed 07/15/24] torsemide 10 mg tablet 20 mg PO DAILY 11/05/23 [History Confirmed 07/15/24] blood sugar diagnostic (FreeStyle Lite Strips) #100 ea 01/09/24 [Rx Confirmed 07/15/24] blood-glucose meter (FreeStyle Lite Meter kit) #1 ea 01/09/24 [Rx Confirmed 07/15/24] lancets 28 gauge (FreeStyle Lancets) #100 ea 01/13/24 [Rx Confirmed 07/15/24] pen needle, diabetic 31 gauge x 3/16 (BD Ultra-Fine Mini Pen Needle) #100 ea 02/06/24 [Rx Confirmed 07/15/24] ascorbic acid (vitamin C) 500 mg chewable tablet 500 mg PO DAILY 02/20/24 [History Confirmed 07/15/24] potassium chloride 10 mEq tablet,extended release See Rx Instructions .Route .COMPLEX #30 tabs 03/26/24 [Rx Confirmed 07/15/24] semaglutide 0.25 mg or 0.5 mg (2 mg/3 mL) subcutaneous pen injector (Ozempic) See Rx Instructions subcut QWEEK 84 days #9 mL 04/09/24 [Rx Confirmed 07/15/24] clotrimazole-betamethasone 1 %-0.05 % topical cream 1 applic topical BID 30 days#45 grams 05/29/24 [Rx Confirmed 07/15/24] tizanidine 2 mg tablet See Rx Instructions .Route .COMPLEX #30 tabs 06/02/24 [Rx Confirmed 07/15/24] amlodipine 10 mg tablet 5 mg (1/2 x 10 mg) PO BID #30 tabs 07/20/24 [Rx] lisinopril 20 mg tablet 10 mg (1/2 x 20 mg) PO BID #30 tabs 07/20/24 [Rx] Exam Physical Exam Vital Signs: Temp Pulse Resp BP Pulse Ox O2 Del Method 98.0 F 92 22 122/57 L 94 L Room Air 10/09/24 12:00 10/09/24 13:00 10/09/24 13:00 10/09/24 13:00 10/09/24 13:00 10/09/24 13:00 Const General: cooperative Orientation: alert and awake HEENT Head: normal to inspection Ears: hearing grossly normal bilaterally and external ears normal Nose: external nose normal Face and sinus: normal facial exam Eyes Sclera: sclerae normal Neck Neck: normal visual inspection Resp Effort & Inspection: normal respiratory effort Auscultation: clear to auscultation bilaterally, diminished lung sounds, no rales, no rhonchi and no wheezes Cardio Rate: regular rate Rhythm: regular rhythm Heart Sounds: S1 normal, S2 normal and no murmurs GI Inspection: normal to inspection Palpation: soft and nontender Auscultation: hypoactive bowel sounds Rectal Exam: deferred General: deferred Skin General: no rashes or lesions noted (Warm and dry) Extrem General: no pedal edema Results - Pulmonology Intake and Output I&O - Last 24 Hours: Intake & Output 10/08/24 10/09/24 10/09/24 23:59 07:59 15:59 Intake Total 800 / 800 Output Total 450 / 450 Balance 350 / 350 Weight 107.8 kg Labs 10/09/24 04:27 10/09/24 04:27 Assessment/Plan (1) Hypovolemic shock: (2) ANGIE (acute kidney injury): (3) Diarrhea: (4) Chronic kidney disease: (5) Chronic heart failure with preserved ejection fraction (HFpEF): (6) YASMANI (obstructive sleep apnea): (7) Type 2 diabetes mellitus with hyperglycemia: Plan Hospital day #1 for patient transferred from the [facility] for presumptive hypovolemic shock due to dehydration with diarrhea with subsequent acute on chronic kidney injury * Continue volume resuscitation and try to wean off pressors with patient having only peripheral IV * Consider consult to gastroenterology for diarrhea resulting in hypovolemia; defer to hospitalist service with stool bacterial panel pending * Continue supportive care Documented By: Vince Welsh MD 5 1305 Signed By: <Electronically signed by MD Vince Welsh> 10/09/24 [facility] Work Phone: 1(134) 138-500302-07-2025 [place] [address] Pulmonology Consult Note Signed Patient: Jose L Ames MR#: [id number] : 1940 Acct:[id number] Age/Sex: 84 / M Adm Date: 5 Loc: Room: [address] [place] [address] Type: ADM IN Attending Dr: Loyda Carlos MD Copies to: DO Vince Delatorre MD Mohamad Akil, MD~ HPI Date/Time of Consultation: Date of Service: 10/09/2024 Time of Service: 13:04 Consulting Provider: Vince Welsh Requesting Provider: Loyda Carlos History of Present Illness History of present illness: Mr. Ames is a 84 year old male seen at the request of the hospitalist service for critical care medicine management. Patient was accepted in transfer from the [facility] emergency department for altered mental status and weakness. Patient has prior history of chronic kidney disease, heart failure with preserved ejection fraction, diabetes mellitus, hypertension, and sleep apnea. Patient has remote history of at least partial colectomy for diverticulitis. He reports approximately 3 weeks of diarrhea which has gotten particularly worse 2 to 3 days prior to admission. He reports he more recently has been trying to decrease liquid intake due to diarrhea but had been continuing oral intake with food. He denied prior fever, shaking shivering chills, or sweats. He denies significant cough, sputum production nor significant respiratory complaints. He denies chest pain or palpitations. Hedid not endorse blood in his stool or dark tarry stool. He denies dysuria nor hematuria. 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 Pernicious anemia Mucopurulent chronic bronchitis Lumbar spondylosis long-term (current) use of insulin Left humeral fracture Iron deficiency anemia due to chronic blood loss Generally unsteady Diverticulosis of colon Chronic diastolic heart failure Benign prostatic hyperplasia with lower urinary tract symptoms Aneurysm of left common iliac artery Abdominal aortic aneurysm, without rupture, unspecified Abdominal aortic aneurysm Chronic venous insufficiency of lower extremity Hypercholesterolemia Cervical spondylosis Nicotine dependence Type 2 diabetes mellitus with hyperglycemia YASMANI (obstructive sleep apnea) HTN (hypertension) Surgical History History of tonsillectomy H/O colonoscopy (~2017) S/P TURP (transurethral resection of prostate) H/O bilateral cataract extraction History of colon resection (~2019) open sigmoid Family History Father Mother Social History Smoking Status: Current some day smoker Tobacco Type: cigarettes Substance Use Type: None Meds Medications and Allergies Allergies LINDA Inhibitors Allergy (Mild, Verified 07/15/24 14:09) Cough acetaminophen (Tylenol) Allergy (Unknown, Verified 07/15/24 14:09) HYPER Home Medications aspirin 81 mg tablet 81 mg PO DAILY 09/04/22 [History Confirmed 07/15/24] cholecalciferol (vitamin D3) 10 mcg (400 unit) tablet 10 mcg PO DAILY 09/04/22 [History Confirmed 07/15/24] tamsulosin 0.4 mg capsule See Rx Instructions .Route .COMPLEX #90 caps 10/26/23 [Rx Confirmed 07/15/24] insulin glargine 100 unit/mL (3 mL) subcutaneous pen (Lantus Solostar U-100 Insulin) 20 unit subcutDAILY 11/05/23 [History Confirmed 07/15/24] [id number]-[id number] 300 mcg-K 60 mcg-lycop 600 mcg-lutein 300 mcg tablet (Centrum Silver Men) 1 tab PO DAILY 11/05/23 [History Confirmed 07/15/24] torsemide 10 mg tablet 20 mg PO DAILY 11/05/23 [History Confirmed 07/15/24] blood sugar diagnostic (FreeStyle Lite Strips) #100 ea 01/09/24 [Rx Confirmed 07/15/24] blood-glucose meter (FreeStyle Lite Meter kit) #1 ea 01/09/24 [Rx Confirmed 07/15/24] lancets 28 gauge (FreeStyle Lancets) #100 ea 01/13/24 [Rx Confirmed 07/15/24] pen needle, diabetic 31 gauge x 3/16 (BD Ultra-Fine Mini Pen Needle) #100 ea 02/06/24 [Rx Confirmed 07/15/24] ascorbic acid (vitamin C) 500 mg chewable tablet 500 mg PO DAILY 02/20/24 [History Confirmed 07/15/24] potassium chloride 10 mEq tablet,extended release See Rx Instructions .Route .COMPLEX #30 tabs 03/26/24 [Rx Confirmed 07/15/24] semaglutide 0.25 mg or 0.5 mg (2 mg/3 mL) subcutaneous pen injector (Ozempic) See Rx Instructions subcut QWEEK 84 days #9 mL 04/09/24 [Rx Confirmed 07/15/24] clotrimazole-betamethasone 1 %-0.05 % topical cream 1 applic topical BID 30 days#45 grams 05/29/24 [Rx Confirmed 07/15/24] tizanidine 2 mg tablet See Rx Instructions .Route .COMPLEX #30 tabs 06/02/24 [Rx Confirmed 07/15/24] amlodipine 10 mg tablet 5 mg (1/2 x 10 mg) PO BID #30 tabs 07/20/24 [Rx] lisinopril 20 mg tablet 10 mg (1/2 x 20 mg) PO BID #30 tabs 07/20/24 [Rx] Exam Physical Exam Vital Signs: Temp Pulse Resp BP Pulse Ox O2 Del Method 98.0 F 92 22 122/57 L 94 L Room Air 10/09/24 12:00 10/09/24 13:00 10/09/24 13:00 10/09/24 13:00 10/09/24 13:00 10/09/24 13:00 Const General: cooperative Orientation: alert and awake HEENT Head: normal to inspection Ears: hearing grossly normal bilaterally and external ears normal Nose: external nose normal Face and sinus: normal facial exam Eyes Sclera: sclerae normal Neck Neck: normal visual inspection Resp Effort & Inspection: normal respiratory effort Auscultation: clear to auscultation bilaterally, diminished lung sounds, no rales, no rhonchi and no wheezes Cardio Rate: regular rate Rhythm: regular rhythm Heart Sounds: S1 normal, S2 normal and no murmurs GI Inspection: normal to inspection Palpation: soft and nontender Auscultation: hypoactive bowel sounds Rectal Exam: deferred General: deferred Skin General: no rashes or lesions noted (Warm and dry) Extrem General: no pedal edema Results - Pulmonology Intake and Output I&O - Last 24 Hours: Intake & Output 10/08/24 10/09/24 10/09/24 23:59 07:59 15:59 Intake Total 800 / 800 Output Total 450 / 450 Balance 350 / 350 Weight 107.8 kg Labs 10/09/24 04:27 10/09/24 04:27 Assessment/Plan (1) Hypovolemic shock: (2) ANGIE (acute kidney injury): (3) Diarrhea: (4) Chronic kidney disease: (5) Chronic heart failure with preserved ejection fraction (HFpEF): (6) YASMANI (obstructive sleep apnea): (7) Type 2 diabetes mellitus with hyperglycemia: Plan Hospital day #1 for patient transferred from the [facility] for presumptive hypovolemic shock due to dehydration with diarrhea with subsequent acute on chronic kidney injury * Continue volume resuscitation and try to wean off pressors with patient having only peripheral IV * Consider consult to gastroenterology for diarrhea resulting in hypovolemia; defer to hospitalist service with stool bacterial panel pending * Continue supportive care Documented By: Vince Welsh MD 5 1304 Signed By: 10/09/24 1316 [facility]02-07-2025 Radiology Diagnostic study note [facility] Main [facility] [address] [place] [address] Ultrasound Report Signed Patient: Jose L Ames MR#: [id number] 2655 : 1940 Acct:[id number] Age/Sex: 84 / M ADM Date: Loc: Room: [address] [place] [address] Type: ADM IN Attending Dr: Loyda Carlos MD Ordering Provider: Lakesha Haskins APRN Date of Service: 10/09/24 US/US carotid doppler BI: syncope Copies to: MD Lakesha Villafuerte, [employer]~ CAROTID DUPLEX INDICATION: Altered mental status, slurred speech, facial droop. PROCEDURE: Color-flow duplex scanning is used to interrogate the extracranial carotid arterial system, as well as both vertebral arteries. The proximal rightinternal carotid artery shows a highest peak systolic velocity of 92.7 cm/s withan end-diastolic velocity of 20.8 cm/s . The mid internal carotid artery measures 77.1 cm/s peak systolic with an end-diastolic velocity of 19.1 cm/s . The distalsegment measures 57.2 cm/s peak systolic with an end diastolic velocity of 15.6 cm/s . The velocities of the right common carotid artery are 111 cm/s peak systolic and 23 cm/s end-diastolic proximally and 100 cm/s peak systolic and 19.9 cm/s end-diastolic distally. The peak systolic velocity ratioof the internal to the common carotid artery is 0.93 . The right external carotid artery measures 141cm/s peak systolic. The right vertebral artery is patent at 67.7 cm/s peak systolic and with antegrade flow. The proximal left internal carotid artery shows a highest peak systolic velocityof 93.8 cm/s with an end-diastolic velocity of 16.2 cm/s . The mid internal carotid artery measures 93.2 cm/s peak systolic with an end-diastolic velocity of 26.1 cm/s . The distal segment measures 75.2 cm/s peak systolic with an end diastolic velocity of 19.2 cm/s . The velocities of the left common carotidartery [id number] cm/s peak systolic and 21.1 cm/s end-diastolic proximally and 116 cm/s peak systolic and 15.5 cm/s end-diastolic distally. The peak systolicvelocity ratio of the internal to the common carotid artery is 0.81 . The left external carotid artery measures 101 cm/s peak systolic. The left vertebral artery is patent at 76.4 cm/s peak systolic with antegrade flow. US/US carotid doppler BI IMPRESSION: NO HEMODYNAMICALLY SIGNIFICANT STENOSIS OF EITHER EXTRACRANIAL INTERNAL CAROTID ARTERY. BOTH VERTEBRAL ARTERIES ARE PATENT WITH ANTEGRADE FLOW. Impression dictated by: Dean Barnard MD10/09/2024 9:26 AM Dictation Location: [place] [address] Tech: [employer] Transcribed By: KAYLEIGH 10/09/24925 Dictated By: Dean Barnard MD 10/09/24925 Signed By: 10/09/24925 [facility] Work Phone: 1(328) 170-468102-07-2025 History and physical note Author Lakesha Haskins [facility] Note Date/Time October 09, 2024 4 :20am [facility] [address] [place] [address] Hospitalist H&P Signed Patient: Jose L Ames MR#: [id number] : 1940 Acct:[id number] Age/Sex: 84 / M Adm Date: 5 Loc: Room: [address] [place] [address] Type: ADM IN Attending Dr: Javier Murray MD Copies to: DO Javier Delatorre MD Paula G Smith, [employer]~ HPI DATE OF EXAMINATION: 10/09/24 CHIEF COMPLAINT: I don't remember HISTORY OF PRESENT ILLNESS: Mr. Ames is an 84-year-old male with a PMH of CKD, diastolic heart failure?last EF 65%, BPH, T2DM, HTN, YASMANI, AAA who presented to [facility] emergency room for altered mental status and weakness. Patient seen and examined upon transfer here to [facility] at bedside. He is very pleasant, alert and oriented, cracking jokes. He reports that he does not remember why he went to the emergency room. He remembers walking into the bathroom and having a bowel movement standing up to clean himself and that is all. He does not remember feeling dizzy or lightheaded at home. Does not remember anything else until he woke up on the cart in the emergency room. He does not believe that he hit his head. He denies chest pain, shortness of breath, fever or chills, nausea or vomiting. He states that he has had diarrheafor the last few days at home, watery and brown. He states that he smokes about1 cigarette a day, denies alcohol or illicit drug use. [facility] chart review?patient arrived to [facility] via EMS for altered mental status, increased weakness, EMS reported slurred speech, facial droop and extremity weakness. NIH was performed as for a score of 9. CT of thehead was performed which showed no acute intracranial process. Telestroke was performed tPA was not recommended suggested symptoms were related to generalizedweakness. Blood cultures were drawn and these are pending. CBC with a white blood cell count of 17.2, otherwise unremarkable. Coags were unremarkable. CMPwith a sodium 137, potassium 4.4, serum bicarb 16.1, BUN 43, creatinine 3.09, GFR 19, glucose 309. Initial lactic acid 5.3, repeat 0.7. Blood alcohol less than 3. Nasal swab was negative for influenza and COVID. UA with dark yellow, cloudy urine, negative for bacteria, leukocytes and nitrites, specific gravity greater than 1.03 and 30 of protein, did not reflex for culture. Chest x-ray showed no acute intra cardiopulmonary process. CT of the abdomen pelvis showed mild fluid distention of small bowel loops without discrete transition zone which may represent gastroenteritis, early small bowel obstruction not completely excluded. EKG sinus tachycardia, repeat EKG sinus rhythm with first- degree AVB. He did become hypotensive after saline bolus?total of 2.5 L, Levophed drip was started. He was medicated with vancomycin, Zosyn. Weinstein catheter was inserted. He was transferred here as inpatient to the intensive care unit under the care of the hospitalist team. Review of Systems Review of Systems Review of systems: A 10 point review of systems was obtained, negative unless noted in the HPI or below. 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 Pernicious anemia Mucopurulent chronic bronchitis Lumbar spondylosis long-term (current) use of insulin Left humeral fracture Iron deficiency anemia due to chronic blood loss Generally unsteady Diverticulosis of colon Chronic diastolic heart failure Benign prostatic hyperplasia with lower urinary tract symptoms Aneurysm of left common iliac artery Abdominal aortic aneurysm, without rupture, unspecified Abdominal aortic aneurysm Chronic venous insufficiency of lower extremity Hypercholesterolemia Cervical spondylosis Nicotine dependence Type 2 diabetes mellitus with hyperglycemia YASMANI (obstructive sleep apnea) HTN (hypertension) Surgical History History of tonsillectomy H/O colonoscopy (~2017) S/P TURP (transurethral resection of prostate) H/O bilateral cataract extraction History of colon resection (~2019) open sigmoid Family History Father Mother Social History Marital Status: Household Members: spouse Housing: house Smoking Status: Current some day smoker Tobacco Type: cigarettes Substance Use Type: None Meds Medications and Allergies Allergies LINDA Inhibitors Allergy (Mild, Verified 07/15/24 14:09) Cough acetaminophen (Tylenol) Allergy (Unknown, Verified 07/15/24 14:09) HYPER Home Medications aspirin 81 mg tablet 81 mg PO DAILY 09/04/22 [History Confirmed 07/15/24] cholecalciferol (vitamin D3) 10 mcg (400 unit) tablet 10 mcg PO DAILY 09/04/22 [History Confirmed 07/15/24] tamsulosin 0.4 mg capsule See Rx Instructions .Route .COMPLEX #90 caps 10/26/23 [Rx Confirmed 07/15/24] insulin glargine 100 unit/mL (3 mL) subcutaneous pen (Lantus Solostar U-100 Insulin) 20 unit subcut DAILY 11/05/23 [History Confirmed 07/15/24] drpgomiq-zb-oikqc 300 mcg-K 60 mcg-lycop 600 mcg-lutein 300 mcg tablet (Centrum Silver Men) 1 tab PO DAILY 11/05/23 [History Confirmed 07/15/24] torsemide 10 mg tablet 20 mg PO DAILY 11/05/23 [History Confirmed 07/15/24] blood sugar diagnostic (FreeStyle Lite Strips) #100 ea 01/09/24 [Rx Confirmed 07/15/24] blood-glucose meter (FreeStyle Lite Meter kit) #1 ea 01/09/24 [Rx Confirmed 07/15/24] lancets 28 gauge (FreeStyle Lancets) #100 ea 01/13/24 [Rx Confirmed 07/15/24] pen needle, diabetic 31 gauge x 3/16 (BD Ultra-Fine Mini Pen Needle) #100 ea 02/06/24 [Rx Confirmed 07/15/24] ascorbic acid (vitamin C) 500 mg chewable tablet 500 mg PO DAILY 02/20/24 [History Confirmed 07/15/24] potassium chloride 10 mEq tablet,extended release See Rx Instructions .Route .COMPLEX #30 tabs 03/26/24 [Rx Confirmed 07/15/24] semaglutide 0.25 mg or 0.5 mg (2 mg/3 mL) subcutaneous pen injector (Ozempic) See Rx Instructions subcut QWEEK 84 days #9 mL 04/09/24 [Rx Confirmed 07/15/24] clotrimazole-betamethasone 1 %-0.05 % topical cream 1 applic topical BID 30 days#45 grams 05/29/24 [Rx Confirmed 07/15/24] tizanidine 2 mg tablet See Rx Instructions .Route .COMPLEX #30 tabs 06/02/24 [Rx Confirmed 07/15/24] amlodipine 10 mg tablet 5 mg (1/2 x 10 mg) PO BID #30 tabs 07/20/24 [Rx] lisinopril 20 mg tablet 10 mg (1/2 x 20 mg) PO BID #30 tabs 07/20/24 [Rx] Exam Physical Exam Narrative: CONST- Appears well -developed and well nourished. HEAD - Normocephalic and atraumatic EENT-Sclera nonicteric, conjunctive are non-erythemic, dry oral mucosa, pharynx clear NECK-Supple, no cervical lymphadenopathy CARDIAC-normal rate, regular rhythm, S1 & S2. PULM-diminished without wheeze or rhonchi, RA, no accessory muscle use or cough noted ABD - Soft. Bowel sounds are normal. No distention. No tenderness EXTREM-no edema BLE calves, nontender SKIN- W/D good turgor, red rash to groin, redness to inner thighs MS- MAEX4 spontaneously with equal with equal strength?generalized weakness NEURO- A&Ox3 speech clear and tongue midline, equal facial symmetry, no focal motor deficits PSYCH-Mood, affect, and behavior appropriate Assessment & Plan Assessment/Plan (1) Hypovolemic shock: (2) Sepsis: (3) Gastroenteritis: (4) Syncope: (5) ANGIE (acute kidney injury): Plan Hypovolemic shock- likely due to GI loss from diarrhea for days, received 2.5L saline bolus @ [facility], resolved here, off norepinephrine Suspected sepsis- unknown source of infection- tachycardic, leukocytosis- received vancomycin and Zosyn ANGIE- likely due to diarrhea, patient reported diarrhea for the last few days Gastroenteritis - Will continue IV hydration- 0.9 NS @ 100cc/hr - Stool bacteria panel, c-diff - Continue Zosyn for now - Follow blood cultures from [facility] - CBC, CMP, Mag in am - Hold nephrotoxic medications - Hold b/p medications for now Syncope- likely syncopal episode at home from hypovolemia, hypotension - Carotid US in am, Echo in am - Up with assist, fall precautions - Noted that stroke alert was called at [facility] and deemed by telestroke team due to sepsis/infection Chronic conditions Diastolic heart failure- last EF 65% in 2022 T2DM- fingersticks ACHS, SSIC, basal insulin BPH DVT prophylaxis- SCDs Diet- 1800 ADA Code status- Full code Attending Physician Attestation: I personally reviewed the history, performed the bennett elements of the exam, formulated the plan of care and confirmed the written note. I agree with the findings and plan as documented in this note and have edited it if needed to reflect my findings and plan. Javier Jerry MD IP vs OBS Justification Based on differential dx, clinical care plan, and risk of adverse events, if untreated, in my clinical judgement this patient requires an acute care setting as: INPATIENT because of an expectation of an over 2 midnight stay. Estimated length of stay (# of days): 3 Documented By: Lakesha Haskins APRN 10/09/24 0228 Signed By: <Electronically signed by DOROTHY Haskins> 10/09/24 0311 <Electronically signed by Javier Murray MD> 10/09/24 0420 [facility] Work Phone: 1(891) 945-270002-07-2025 [place] [address] Hospitalist H&P Signed Patient: Jose L Ames MR#: [id number] [id number] : 1940 Acct:[id number] Age/Sex: 84 / M Adm Date: 5 Loc: Room: [address] [place] [address] Type: ADM IN Attending Dr: Javier Murray MD Copies to: DO Javier Delatorre MD Paula G Smith, DOROTHY~ HPI DATE OF EXAMINATION: 10/09/24 CHIEF COMPLAINT: I don't remember HISTORY OF PRESENT ILLNESS: Mr. Ames is an 84-year-old male with a PMH of CKD, diastolic heart failure?last EF 65%, BPH, T2DM, HTN, YASMANI, AAA who presented to [facility] emergency room for altered mental status and weakness. Patient seen and examined upon transfer here to [facility] at bedside. Heis very pleasant, alert and oriented, cracking jokes. He reports that he does not remember why he went to the emergency room. He remembers walking into the bathroom and having a bowel movement standing up to clean himself and that is all. He does not remember feeling dizzy or lightheaded at home. Does not remember anything else until he woke up on the cart in the emergency room. He does not believe that he hit his head. He denies chest pain, shortness of breath, fever or chills, nausea or vomiting. He states that he has had diarrheafor the last few days at home, watery and brown. He states that he smokes about1 cigarette a day, denies alcohol or illicit drug use. [facility] chart review?patient arrived to [facility] via EMS for altered mental status, increased weakness, EMS reported slurred speech, facial droop and extremity weakness. NIH was performed as for a score of 9. CT of thehead was performed which showed no acute intracranial process.Telestroke was performed tPA was not recommended suggested symptoms were related to generalizedweakness. Blood cultures were drawn and these are pending. CBC with a white blood cell count of 17.2, otherwise unremarkable. Coags were unremarkable. CMPwith a sodium 137, potassium 4.4, serum bicarb 16.1, BUN 43, creatinine 3.09, GFR 19, glucose 309. Initial lactic acid 5.3, repeat 0.7. Blood alcohol less than 3. Nasal swab was negative for influenza and COVID. UA with dark yellow, cloudy urine, negative for bacteria, leukocytes and nitrites, specific gravity greater than 1.03 and 30 of protein, did not reflex for culture. Chest x-ray showed no acute intra cardiopulmonary process. CT of the abdomen pelvis showed mild fluid distention of small bowel loops without discrete transition zone which may represent gastroenteritis, early small bowel obstruction not completely excluded. EKG sinus tachycardia, repeat EKG sinus rhythm with first-degree AVB. He did become hypotensive after saline bolus?total of 2.5 L, Levophed drip was started. He was medicated with vancomycin, Zosyn. Weinstein catheter was inserted. He was transferred here as inpatient to the intensive care unit under the care of the hospitalist team. Review of Systems Review of Systems Review of systems: A 10 point review of systems was obtained, negative unless noted in the HPI or below. 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 Pernicious anemia Mucopurulent chronic bronchitis Lumbar spondylosis long-term (current) use of insulin Left humeral fracture Iron deficiency anemia due to chronic blood loss Generally unsteady Diverticulosis of colon Chronic diastolic heart failure Benign prostatic hyperplasia with lower urinary tract symptoms Aneurysm of left common iliac artery Abdominal aortic aneurysm, without rupture, unspecified Abdominal aortic aneurysm Chronic venous insufficiency of lower extremity Hypercholesterolemia Cervical spondylosis Nicotine dependence Type 2 diabetes mellitus with hyperglycemia YASMANI (obstructive sleep apnea) HTN (hypertension) Surgical History History of tonsillectomy H/O colonoscopy (~2017) S/P TURP (transurethral resection of prostate) H/O bilateral cataract extraction History of colon resection (~2019) open sigmoid Family History Father Mother Social History Marital Status: Household Members: spouse Housing: house Smoking Status: Current some day smoker Tobacco Type: cigarettes Substance Use Type: None Meds Medications and Allergies Allergies LINDA Inhibitors Allergy (Mild, Verified 07/15/24 14:09) Cough acetaminophen (Tylenol) Allergy (Unknown, Verified 07/15/24 14:09) HYPER Home Medications aspirin 81 mg tablet 81 mg PO DAILY 09/04/22 [History Confirmed 07/15/24] cholecalciferol (vitamin D3) 10 mcg (400 unit) tablet 10 mcg PO DAILY 09/04/22 [History Confirmed 07/15/24] tamsulosin 0.4 mg capsule See Rx Instructions .Route .COMPLEX #90 caps 10/26/23 [Rx Confirmed 07/15/24] insulin glargine 100 unit/mL (3 mL) subcutaneous pen (Lantus Solostar U-100 Insulin) 20 unit subcutDAILY 11/05/23 [History Confirmed 07/15/24] [id number] 300 mcg-K 60 mcg-lycop 600 mcg-lutein 300 mcg tablet (Centrum Silver Men) 1 tab PO DAILY 11/05/23 [History Confirmed 07/15/24] torsemide 10 mg tablet 20 mg PO DAILY 11/05/23 [History Confirmed 07/15/24] blood sugar diagnostic (FreeStyle Lite Strips) #100 ea 01/09/24 [Rx Confirmed 07/15/24] blood-glucose meter (FreeStyle Lite Meter kit) #1 ea 01/09/24 [Rx Confirmed 07/15/24] lancets 28 gauge (FreeStyle Lancets) #100 ea 01/13/24 [Rx Confirmed 07/15/24] pen needle, diabetic 31 gauge x 3/16 (BD Ultra-Fine Mini Pen Needle) #100 ea 02/06/24 [Rx Confirmed 07/15/24] ascorbic acid (vitamin C) 500 mg chewable tablet 500 mg PO DAILY 02/20/24 [History Confirmed 07/15/24] potassium chloride 10 mEq tablet,extended release See Rx Instructions .Route .COMPLEX #30 tabs 03/26/24 [Rx Confirmed 07/15/24] semaglutide 0.25 mg or 0.5 mg (2 mg/3 mL) subcutaneous pen injector (Ozempic) See Rx Instructions subcut QWEEK 84 days #9 mL 04/09/24 [Rx Confirmed 07/15/24] clotrimazole-betamethasone 1 %-0.05 % topical cream 1 applic topical BID 30 days#45 grams 05/29/24 [Rx Confirmed 07/15/24] tizanidine 2 mg tablet See Rx Instructions .Route .COMPLEX #30 tabs 06/02/24 [Rx Confirmed 07/15/24] amlodipine 10 mg tablet 5 mg (1/2 x 10 mg) PO BID #30 tabs 07/20/24 [Rx] lisinopril 20 mg tablet 10 mg (1/2 x 20 mg) PO BID #30 tabs 07/20/24 [Rx] Exam Physical Exam Narrative: CONST- Appears well -developed and well nourished. HEAD - Normocephalic and atraumatic EENT-Sclera nonicteric, conjunctive are non-erythemic, dry oral mucosa, pharynx clear NECK-Supple, no cervical lymphadenopathy CARDIAC-normal rate, regular rhythm, S1 & S2. PULM-diminished without wheeze or rhonchi, RA, no accessory muscle use or cough noted ABD - Soft. Bowel sounds are normal. No distention. No tenderness EXTREM-no edema BLE calves, nontender SKIN- W/D good turgor, red rash to groin, redness to inner thighs MS- MAEX4 spontaneously with equal with equal strength?generalized weakness NEURO- A&Ox3 speech clear and tongue midline, equal facial symmetry, no focal motor deficits PSYCH-Mood, affect, and behavior appropriate Assessment & Plan Assessment/Plan (1) Hypovolemic shock: (2) Sepsis: (3) Gastroenteritis: (4) Syncope: (5) ANGIE (acute kidney injury): Plan Hypovolemic shock- likely due to GI loss from diarrhea for days, received 2.5L saline bolus @ [facility], resolved here, off norepinephrine Suspected sepsis- unknown source of infection- tachycardic, leukocytosis- received vancomycin and Zosyn ANGIE- likely due to diarrhea, patient reported diarrhea for the last few days Gastroenteritis - Will continue IV hydration- 0.9 NS @ 100cc/hr - Stool bacteria panel, c-diff - Continue Zosyn for now - Follow blood cultures from [facility] - CBC, CMP, Mag in am - Hold nephrotoxic medications - Hold b/p medications for now Syncope- likely syncopal episode at home from hypovolemia, hypotension - Carotid US in am, Echo in am - Up with assist, fall precautions - Noted that stroke alert was called at [place] and deemed by telestroke team due to sepsis/infection Chronic conditions Diastolic heart failure- last EF 65% in 2022 T2DM- fingersticks ACHS, SSIC, basal insulin BPH DVT prophylaxis- SCDs Diet- 1800 ADA Code status- Full code Attending Physician Attestation: I personally reviewed the history, performed the bennett elements of the exam, formulated the plan of care and confirmed the written note. I agree with the findings and plan as documented in this note and have edited it if needed to reflect my findings and plan. Javier Jerry MD IP vs OBS Justification Based on differential dx, clinical care plan, and risk of adverse events, if untreated, in my clinical judgement this patient requires an acute care setting as: INPATIENT because of an expectation ofan over 2 midnight stay. Estimated length of stay (# of days): 3 Documented By: Lakesha Haskins APRN 10/09/24 0228 Signed By: [id number] [facility]02-07-2025 Evaluation note* Diagnosis Onset Date Resolution Status Admit Date ANGIE (acute kidney injury) acute October 09, 2024 1:47am Chronic heart failure with preserved ejection fraction (HFpEF) acute October 09 1:47am Chronic kidney disease acute Fe 2024 1:47am Diarrhea acute October 09, 2024 1:47am Gastroenteritis acute October 09, 2024 1:47am Hypovolemic shock acute 2024 1:47am YASMANI (obstructive sleep apnea) acute October 09, 2024 1:47am Pancytopenia acute October 1:47am Sepsis acute October 09, 2024 1:47am Syncope acute October 09, 2024 1:47am Type 2 diabetes mellitus wit h hyperglycemia acute October 09 1:47am [facility] Work Phone: 1(347) 426-237102-07-2025 Evaluation note* Diagnosis Onset Date Resolution Status Admit Date ANGIE (acute kidney injury) acute October 09, 2024 1:47am Chronic heart failure with preserved ejection fraction (HFpEF) acute October 09 1:47am Chronic kidney disease acute 2024 1:47am Diarrhea acute October 09, 2024 1:47am Gastroenteritis acute October 09, 2024 1:47am Hypovolemic shock acute 2024 1:47am YASMANI (obstructive sleep apnea) acute October 09, 2024 1:47am Pancytopenia acute October 1:47am Sepsis acute October 09, 2024 1:47am Syncope acute October 09, 2024 1:47am Type 2 diabetes mellitus wit h hyperglycemia acute October 09 1:47am Chronic heart failure with preserved ejection fraction (HFpEF) acute October 21, 025 11:31am Chronic kidney disease acute Fe ary 2024 11:31am Chronic venous insufficiency of lower extremity acute October 21 025 11:31am HTN (hypertension) acute ua ry 2024 11:31am Nicotine dependence acute Febru real 2024 11:31am YASMANI (obstructive sleep apnea) acute October 21, 2024 11:31am Pancytopenia acute October 11:31am Pernicious anemia acute 2024 11:31am Type 2 diabetes mellitus wit h hyperglycemia acute October 21 025 11:31am [facility] Work Phone: 1(139) 330-678502-07-2025 Evaluation note* Diagnosis Onset Date Resolution Status Admit Date ANGIE (acute kidney injury) acute October 09, 2024 1:47am Chronic heart failure with preserved ejection fraction (HFpEF) acute October 09 1:47am Chronic kidney disease acute 2024 1:47am Diarrhea acute October 09, 2024 1:47am Gastroenteritis acute October 09, 2024 1:47am YASMANI (obstructive sleep apnea) acute October 09, 2024 1:47am Sepsis acute October 09, 2024 1:47am Syncope acute October 09, 2024 1:47am Type 2 diabetes mellitus wit h hyperglycemia acute October 09 1:47am Hypovolemic shock resolved 2024 1:47am Pancytopenia resolved October 1:47am Chronic heart failure with preserved ejection fraction (HFpEF) acute October 21 11:31am Chronic venous insufficiency of lower extremity acute October 21 11:31am HTN (hypertension) acute 2024 11:31am Nicotine dependence acute 2024 11:31am YASMANI (obstructive sleep apnea) acute October 21, 2024 11:31am Pernicious anemia acute 2024 11:31am Type 2 diabetes mellitus wit h hyperglycemia acute October 21 11:31am Pancytopenia resolved October 11:31am Pernicious anemia acute 2024 8:53am Thrombocytopenia acute October 22, 2024 8:53am [facility] Work Phone: 1(962) 373-378302-07-2025 Evaluation note* Diagnosis Onset Date Resolution Status Admit Date ANGIE (acute kidney injury) acute October 09, 2024 1:47am Chronic heart failure with preserved ejection fraction (HFpEF) acute October 09 1:47am Chronic kidney disease acute 2024 1:47am Diarrhea acute October 09, 2024 1:47am Gastroenteritis acute October 09, 2024 1:47am YASMANI (obstructive sleep apnea) acute October 09, 2024 1:47am Pancytopenia acute October 1:47am Sepsis acute October 09, 2024 1:47am Syncope acute October 09, 2024 1:47am Type 2 diabetes mellitus wit h hyperglycemia acute October 09 1:47am Hypovolemic shock resolved 2024 1:47am Chronic heart failure with preserved ejection fraction (HFpEF) acute October 21 025 11:31am Chronic venous insufficiency of lower extremity acute October 21 025 11:31am HTN (hypertension) acute 2024 11:31am Nicotine dependence acute 2024 11:31am YASMANI (obstructive sleep apnea) acute October 21, 2024 11:31am Pancytopenia acute October 11:31am Pernicious anemia acute 2024 11:31am Type 2 diabetes mellitus wit h hyperglycemia acute October 21 11:31am Pernicious anemia acute 2024 8:53am Thrombocytopenia acute October 22, 2024 8:53am Pancytopenia acute November 05 8:53am [facility] Work Phone: 1(694) 314-531802-07-2025 Evaluation note* Diagnosis Onset Date Resolution Status Admit Date ANGIE (acute kidney injury) acute October 09, 2024 1:47am Chronic heart failure with preserved ejection fraction (HFpEF) acute October 09 1:47am Chronic kidney disease acute 2024 1:47am Diarrhea acute October 09, 2024 1:47am Gastroenteritis acute October 09, 2024 1:47am YASMANI (obstructive sleep apnea) acute October 09, 2024 1:47am Pancytopenia acute October 1:47am Sepsis acute October 09, 2024 1:47am Syncope acute October 09, 2024 1:47am Type 2 diabetes mellitus wit h hyperglycemia acute October 09 1:47am Hypovolemic shock resolved 2024 1:47am Chronic heart failure with preserved ejection fraction (HFpEF) acute October 21 11:31am Chronic venous insufficiency of lower extremity acute October 21 11:31am HTN (hypertension) acute 2024 11:31am Nicotine dependence acute 2024 11:31am YASMANI (obstructive sleep apnea) acute October 21, 2024 11:31am Pancytopenia acute October 11:31am Pernicious anemia acute 2024 11:31am Type 2 diabetes mellitus wit h hyperglycemia acute February 19th, 2 025 11:31am Pernicious anemia acute ua2024 8:53am Thrombocytopenia acute October 22, 2024 8:53am Pancytopenia acute November 05 025 8:53am Pernicious anemia acute December 012024 2:13pm Chronic heart failure with preserved ejection fraction (HFpEF) acute December 14, 2024 2:34pm Chronic kidney disease acute Ap 2024 2:34pm HTN (hypertension) acute December 14, 2024 2:34pm Pancytopenia acute December 14, 2024 2:34pm Type 2 diabetes mellitus wit h hyperglycemia acute December 14, 2024 2:34pm [facility] Work Phone: 1(288) 502-726502-03-2025 History of Present illness Narrative* Jailyn Sepulveda, THOMPSON - 10/05/2024 2:40 PM EST Images from the original note were not included. Chief Complaint Patient presents with Dizziness Imbalance Weakness, Gen Subjective Jose L Ames, 84 y.o., male Patient is here for follow up and is accompanied today by his , Iva. He reports that his dizziness/ imbalance has improved since last seen. He was referred to PT at his last visit and states this has been beneficial. He states that he and his are walking at the mall now and states that the distance he is able to walk has improved. He admits to recent changes in the timing of some of his blood pressure medications and states this has helped his dizziness. He denies this being particularly bothersome today. Denies falls, walks with a cane. He states he sleeps well, only wakes to use the restroom. He denies any episodes of confusion or changes in memory. Denies further concern today. Review of Systems Constitutional: Positive for fatigue. Negative for appetite change and fever. Respiratory: Negative for cough, shortness of breath and wheezing. Cardiovascular: Negative for chest pain, palpitations and leg swelling. Gastrointestinal: Negative for abdominal pain, constipation, diarrhea and nausea. Musculoskeletal: Positive for gait problem. Negative for arthralgias and myalgias. Neurological: Positive for dizziness (improved per patient). Negative for tremors, numbness and headaches. Past Medical History: Diagnosis Date Diverticulitis Past Surgical History: Procedure Laterality Date ROTATOR CUFF REPAIR TONSILLECTOMY Family History Problem Relation Name Age of Onset Cancer Mother Cancer Father Social History Tobacco Use Smoking status: Never Smokeless tobacco: Not on file Substance Use Topics Alcohol use: Never Allergies: Patient has no known allergies. Vitals: 10/05/24 1435 BP: 131/74 Pulse: 87 Body mass index is 33.19 kg/m . weight: 238 lb Neurologic exam: Mental status: Well nourished, well developed and in no acute distress. Grossly oriented to person, place and time. Recent and remote memory are intact. Language is fluent without aphasia. Attention and concentration are normal. Fund of knowledge is appropriate for level of education. Cranial nerves: CN II: Visual acuity is normal. Visual alcala full to confrontation. CN III, IV, : pupils equal round and reactive to light. Extraocular movements intact. No ptosis present. CN V: Facial sensation is normal. CN VII: Full and symmetric facial movement. CN VIII: Hearing is intact. CN IX and X: Palate elevates symmetrically. CN XI: Shoulder shrug is normal bilaterally. CN XII: Tongue is midline without atrophy or fasciculation. Motor: RUE Strength deltoid, , biceps , triceps , wrist extensors , wrist flexor 5/5 , aerial planting and cultivation manager strength 4+/5. LUE Strength deltoid , biceps , triceps , wrist extensors , wrist flexor 5/5 , aerial planting and cultivation manager strength 4-/5. RLE Strength illopsoas, quadriceps, tibialis anterior, and gastrocnemius strength 5/5. LLE Strength illopsoas, quadriceps, tibialis anterior, and gastrocnemius strength 5/5. Normal tone x4 extremities. Bulk is normal. Sensory: Sensation is intact to light touch throughout distal extremities. Reflexes: Deep tendon reflexes diffusely hypoactive throughout. Coordination: [id number] testing is normal Rapid alternating movements are normal Gait: Cane Review and summary of old records: Orthos 10/03/23: sitting 124/68 95 supine 130/78 97 standing 110/61 97 patient admits mild lightheadedness upon standing MRI of the brain at [facility] on 08/21/23: No acute intracranial process. Senescent changes. EMG LUE 10/04/21: A generalized process such as polyneuropathy which is axon loss in type and moderate in degree electrically is suspected. Further EDX evaluation is required to confirm the diagnosis. 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 (ordering physician orthopedic surgeon) MRI cervical spine without contrast at [facility] on 03/30/21: Mild discogenic disease without central spinal canal or foraminal stenosis. X-ray of the cervical spine demonstrates moderate to severe degenerative changes with multilevel spondylolisthesis. MRI of the brain without contrast on 11/03/19: No hemorrhage, mass or mass effect. Age-appropriate atrophy and chronic small vessel disease. Mild chronic sinusitis. Assessment/Plan Diagnoses and all orders for this visit: Imbalance Patient has chronic complaints of intermittent imbalance, mainly associated with getting up from a seated position (though this does not happen every time he gets up). Per patient symptoms are worse in the morning. MRI brain in 2019 was unremarkable, as was the cervical MRI in 2020. He does have a history of cerumen impaction, which is recurrent, and certainly could play into a vestibular component. Due to concerns with changes in his symptoms we did repeat brain MRI 08/21/23 which was unremakarkable. Orthos have been positive in the office previously which certainly may be causative. The patient admits to improvement in symptoms following recent adjustments in his blood pressure medicationfurther supportive of the above. He has also since completed PT which he feels was beneficial. PLAN: - Recomended slow position changes and liberalization of salt and water (he does have edema so I advised he also discuss this with PCP) - Recommended close follow up with PCP/cardiology for ongoing monitoring/management of HTN and orthostatic hypotension. - Continue home PT exercises. Dizziness Improved and not a complaint today. See above Generalized weakness The patient has generalized weakness which is likely resultant from deconditioning. Strength on exam is overall normal and the patient admits to improvement with PT. PLAN: - Recommended continued home PT exercises (the patient reports that he is now walking at the mall for exercise.) - Recommended the use of a walker to help with stability, this was again discussed today. - Fall precautions discussed Upper extremity weakness Patient was following with ortho after left arm fracture led to weakness. 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 Weakness has improved. PLAN: - Continue following with ortho as per their recommendations Daytime hypersomnolence Patient has daytime hypersomnolence, snoring, and reports potential apneic episodes. In addition to this, his age and body habitus also raise significant concern for YASMANI. He has since completed a sleep study (ordered by another provider) though these results are not available to me today and he denies current follow up with sleep medicine. PLAN: - Follow up with sleep medicine as per their recommendations Follow up in 6 months per patient request or sooner if symptoms worsen, fail to improve, or should a new neurological concern arise. Pt has been fully educated on their diagnosis, treatment options, follow up plan, and return instructions documented in this encounterCarondelet [id number] Evaluation note* Diagnosis Onset Date Resolution Status Admit Date Chronic heart failure with preserved ejection fraction (HFpEF) acute July 15 1:53pm Chronic kidney disease acute No vember 2023 1:53pm Chronic venous insufficiency of lower extremity acute July 15 1:53pm Generally unsteady acute Novemb er 2023 1:53pm HTN (hypertension) acute Novemb er 2023 1:53pm Medicare annual wellness vis it, subsequent acute July 15 1:53pm Nicotine dependence acute Novem viola 2023 1:53pm YASMANI (obstructive sleep apnea) acute July 15, 2024 1:53pm Pernicious anemia acute Novembe r 2023 1:53pm Type 2 diabetes mellitus wit h hyperglycemia acute July 15 1:53pm [facility] Work Phone: 1(828) 701-359411-04-2024 History of Present illness Narrative* Jailyn Sepulveda NP - 07/06/2024 1:00 PM EST Images from the original note were not included. Chief Complaint Patient presents with Dizziness Gait Problem Weakness, Gen BUE Subjective Jose L Ames, 83 y.o., male Patient is here for follow up and is accompanied today by his . He reports that his dizziness/ imbalance has not worsened since last seen. He reports that he only experiences this in the morning after taking medication, this can last several hours. Denies looking a certain direction or moving his head as being a trigger. Denies falls, walks with a cane. He states he sleeps well, only wakes touse the restroom. Denies following with sleep medicine, states he will not be returning.He denies any episodes of confusion or changes in memory. He also follows with cardiology and denies recent visits. Denies further concern today. Review of Systems Constitutional: Positive for fatigue. Negative for appetite change and fever. Respiratory: Negative for cough, shortness of breath and wheezing. Cardiovascular: Negative for chest pain, palpitations and leg swelling. Gastrointestinal: Negative for abdominal pain, constipation, diarrhea and nausea. Musculoskeletal: Positive for gait problem. Negative for arthralgias and myalgias. Neurological: Positive for dizziness. Negative for tremors, numbness and headaches. Past Medical History: Diagnosis Date Diverticulitis Past Surgical History: Procedure Laterality Date ROTATOR CUFF REPAIR TONSILLECTOMY Family History Problem Relation Name Age of Onset Cancer Mother Cancer Father Social History Tobacco Use Smoking status: Never Smokeless tobacco: Not on file Substance Use Topics Alcohol use: Never Allergies: Patient has no known allergies. Vitals: 07/06/24 1305 BP: 137/65 Pulse: 75 Body mass index is 33.05 kg/m . weight: 237 lb Neurologic exam: Mental status: Well nourished, well developed and in no acute distress. Grossly oriented to person, place and time. Recent and remote memory are intact. Language is fluent without aphasia. Attention and concentration are normal. Fund of knowledge is appropriate for level of education. Cranial nerves: CN II: Visual acuity is normal. Visual alcala full to confrontation. CN III, IV, : pupils equal round and reactive to light. Extraocular movements intact. No ptosis present. CN V: Facial sensation is normal. CN VII: Full and symmetric facial movement. CN VIII: Hearing is intact. CN IX and X: Palate elevates symmetrically. CN XI: Shoulder shrug is normal bilaterally. CN XII: Tongue is midline without atrophy or fasciculation. Motor: RUE Strength deltoid, , biceps , triceps , wrist extensors , wrist flexor 5/5 , aerial planting and cultivation manager strength 4+/5. LUE Strength deltoid , biceps , triceps , wrist extensors , wrist flexor 5/5 , aerial planting and cultivation manager strength 4-/5. RLE Strength illopsoas, quadriceps, tibialis anterior, and gastrocnemius strength 5/5. LLE Strength illopsoas, quadriceps, tibialis anterior, and gastrocnemius strength 5/5. Normal tone x4 extremities. Bulk is normal. Sensory: Sensation is intact to light touch throughout distal extremities. Reflexes: Deep tendon reflexes diffusely hypoactive throughout. Coordination: [id number]-uw-[id number] testing is normal Rapid alternating movements are normal Gait: Cane Review and summary of old records: orthos 10/03/23: sitting 124/68 95 supine 130/78 97 standing 110/61 97 patient admits mild lightheadedness upon standing MRI of the brain at [facility] on 08/21/24: No acute intracranial process. Senescent changes. EMG LUE 10/04/21: A generalized process such as polyneuropathy which is axon loss in type and moderate in degree electrically is suspected. Further EDX evaluation is required to confirm the diagnosis. 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 (ordering physician orthopedic surgeon) MRI cervical spine without contrast at [facility] on 03/30/21: Mild discogenic disease without central spinal canal or foraminal stenosis. X-ray of the cervical spine demonstrates moderate to severe degenerative changes with multilevel spondylolisthesis. MRI of the brain without contrast on 11/03/19: No hemorrhage, mass or mass effect. Age-appropriate atrophy and chronic small vessel disease. Mild chronic sinusitis. Assessment/Plan Diagnoses and all orders for this visit: Imbalance Patient has chronic complaints of intermittent imbalance, mainly associated with getting up from a seated position (though this does not happen every time he gets up). Per patient symptoms are worse in the morning. MRI brain in 2019 was unremarkable, as was the cervical MRI in 2020. He does have a history of cerumen impaction, which is recurrent, and certainly could play into a vestibular component. Due to concerns with changes in his symptoms we did repeat brain MRI 08/21/23 which was unremakarkable. Orthos have been positive in the office previously. PLAN: - Recomended slow position changes and liberalization of salt and water (he does have edema so I advised he also discuss this with PCP) - Recommended close follow up with PCP/cardiology for ongoing monitoring/management of HTN and orthostatic hypotension. - Referral to PT Dizziness See above Generalized weakness The patient has generalized weakness which is likely resultant from deconditioning. Strength on exam is overall normal. PLAN: - Referral to PT - Recommended the use of a walker to help with stability, this was again discussed today. - Fall precautions discussed Upper extremity weakness Patient is following with ortho after left arm fracture leading to weakness. 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 PLAN: - Continue following with ortho as per their recommendations Daytime hypersomnolence Patient has daytime hypersomnolence, snoring, and reports potential apneic episodes. In addition to this his age and body habitus also raise significant concern for YASMANI. He since completed a sleep study though these results are not available to me today and he denies current follow up with sleep medicine. PLAN: - Follow up with sleep medicine as per their recommendations Follow up in 2-3 months or sooner if symptoms worsen, fail to improve, or should a new neurologicalconcern arise. Pt has been fully educated on their diagnosis, treatment options, follow up plan, and return instructions documented in this encounterCarondelet [id number] Evaluation note* Diagnosis Onset Date Resolution Status Admit Date Vitamin B12 deficiency noneactive Se ptember 2023 3:25pm Chronic heart failure with preserved ejection fraction (HFpEF) acute July 15, 2 024 1:53pm Chronic kidney disease acute No vember 2023 1:53pm Chronic venous insufficiency of lower extremity acute July 1:53pm Generally unsteady acute Novemb er 2023 1:53pm HTN (hypertension) acute Novemb er 2023 1:53pm Medicare annual wellness visit, subsequent acute July 15, 2024 1:53pm Nicotine dependence acute Novem viola 2023 1:53pm YASMANI (obstructive sleep apnea) acute July 15, 2 024 1:53pm Pernicious anemia acute Novembe r 2023 1:53pm Type 2 diabetes mellitus with hyperglycemia acute July 1:53pm [facility] Work Phone: 1(309) 564-498908-14-2024 Hospital Discharge instructions Patient Education 04/15/2024 13:28:07 Overactive Bladder, Adult Overactive Bladder, Adult Overactive [...] You may also have very sensitive muscles thatmake your bladder squeeze too soon. This condition [...] your health care provider. General instructions Take pdcg-ogg-ijkwdzs and prescription medicines only as told by your health care provider. If you were prescribed an antibiotic medicine, take it as told by your health care provider. Do notstop taking the antibiotic even if you start [...] provider. Document Revised: 05/08/2021 Document Reviewed: 05/08/2021 TMS Patient Education 2022 [employer]. Follow Up Care 01/29/2024 14:49:01 With:LORRAINE DAUGHERTY, Carlos A Hamilton, URL Address: [facility] [employer] [address] [place], [place] [id number]- When: Unknown [facility] 08-14-2024 NotePatient Education Obstetrics and Gynecology Overactive Bladder, Adult [...] You may also have very sensitive muscles thatmake your bladder squeeze too soon. This condition [...] as stroke, dementia, Parkinson's disease, or multiple sclerosis(MS). ? Eat or drink alcohol, spicy food, [...] health care provider. General instructions ? Take gatj-qpp-htwcbtj and prescription medicines only as told by [...] urinate. This will help your health care (more content not included)...[facility]05-29-2024 Hospital Discharge instructions Patient Education 01/29/2024 14:39:18 Overactive Bladder, [...] You may also have very sensitive muscles thatmake your bladder squeeze too soon. This condition [...] your health care provider. General instructions Take ojhc-uge-xwhvfum and prescription medicines only as told by your health care provider. If you were prescribed an antibiotic medicine, take it as told by your health care provider. Do notstop taking the antibiotic even if you start [...] provider. Document Revised: 05/08/2021 Document Reviewed: 05/08/2021 TMS Patient Education 2022 [employer] Follow Up Care 01/28/2024 16:14:14 With:LORRAINE DAUGHERTY, Carlos A Hamilton, URL Address: [address] [address]- When: Unknown [facility] 01-19-2024 Evaluation note* Encounter Date Diagnosis Assessment Notes Treatment Notes Treatment Clinical Notes Sep, Acute prostatitis (ICD-10 - N41.0) Seen Other 12-06-2023 Evaluation note* Encounter Date Diagnosis [...] HOB elevated, avoid back sleeping. Weight loss Seen Other 11-21-2023 Evaluation note* Encounter Date Diagnosis Assessment Notes Treatment Notes Treatment Clinical Notes Jul, Pernicious anemia (ICD-10 - D51.0) Seen Other 10-17-2023 Evaluation note* Encounter Date Diagnosis Assessment Notes Treatment Notes Treatment Clinical Notes Jun, Pernicious anemia (ICD-10 - D51.0) Seen Other 09-06-2023 Evaluation note* Encounter Date Diagnosis [...] by [ ], under direct supervision of Dr. [ ]. Document reviewed and amended by [...] use, the patient reduces the risk for MO, CVA, HTN, cardiac dysrhythmias and sudden cardiac [...] to respiratory infections, vascular disease and cancers. Seen Other 08-21-2023 Evaluation note* Encounter Date Diagnosis Assessment Notes Treatment Notes Treatment Clinical Notes Apr, Mucopurulent chronic bronchitis (ICD-10 - J41.1) Seen Other 07-19-2023 Evaluation note* Encounter Date Diagnosis Assessment Notes Treatment Notes Treatment Clinical Notes Mar, Pernicious anemia (ICD-10 - D51.0) Seen Other 06-12-2023 Evaluation note* Encounter Date Diagnosis Assessment Notes Treatment Notes Treatment Clinical Notes Jan, Pernicious anemia (ICD-10 - D51.0) Seen Other 06-06-2023 Evaluation note* Encounter Date Diagnosis [...] risk for cerebrovascular and cardiovascular disease. Jan, long-term (current) use of insulin (ICD-10 - Z79.4) Jan, Bilateral pulmonary infiltrates (ICD-10 - R91.8) Denies dyspnea, cough, wheezing or hemoptysis. Denies fever, chills or any additional symptoms of intercurrent infection Jan, Fatigue, unspecified type (ICD-10 - R53.83) Seen Other 05-11-2023 Evaluation note* Encounter Date Diagnosis Assessment Notes Treatment Notes Treatment Clinical Notes December, Pernicious anemia (ICD-10 - D51.0) Seen Other 03-22-2023 Evaluation note* Encounter Date Diagnosis [...] respiratory infections, vascular disease and cancers. 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 Control BP and HR Oct, Pernicious anemia (ICD-10 - D51.0) COntinue B12 injections Oct, Pneumonia of lower lobe due to infectious organism, unspecified laterality (ICD-10 - J18.9) Review imaging results from [facility]. [place] vs CXR f/u to ensure resolution Seen Other 02-05-2023 Evaluation note* Encounter Date Diagnosis Assessment Notes Treatment Notes Treatment Clinical Notes Oct, Mucopurulent chronic bronchitis (ICD-10 - J41.1) Seen Other 01-24-2023 Evaluation note* Encounter Date Diagnosis Assessment Notes Treatment Notes Treatment Clinical Notes Sep, Community acquired pneumonia, unspecified laterality (ICD-10 - J18.9) Seen Other 01-24-2023 Evaluation note* Encounter Date Diagnosis Assessment Notes Treatment Notes Treatment Clinical Notes Sep, Mucopurulent chronic bronchitis (ICD-10 - J41.1) Sep, Chronic venous insufficiency (ICD-10 - I87.2) Seen Other 01-07-2023 Discharge summary Author Rafik Massouh [facility] September 08, 2022 9:31am Note Date/Time September 08, 2022 9: 31am [facility] [address] [place] [address] Discharge Summary Signed Patient: Jose L Ames MR#: [id number] : 1940 Acct:[id number] Age/Sex: 81 / M Adm Date: 3 Loc: Room: [address] [place] [address]: Randolph Velasquez MD Copies to: DO Randolph Delatorre MD~ Providers Date of Discharge: 09/08/22 Discharging Provider: Randolph Velasquez Primary Care Provider: Erich Alejandro Consults: 09/04/22 22:57 Consult to Occupational Therapy [...] Course Hospital course: Patient was transferred to [facility] with respiratory distress and hypoxic respiratory failure requiring the use of oxygen. I orderedCAT scan of the chest which showed bilateral infiltration suspected to have pneumonia. Patient had bilateral wheezing indicative of acute COPD exacerbationand bronchospasm. Blood culture from [place] came back negative thus far Patient was [...] of angina at this time Hematuria after Weinstein catheter inserted. Could be traumatic in nature. [...] ask your primary care provider to obtain [facility] records entirely to follow up on all of the abnormal physical, laboratory, and imaging findings that I have not addressed. Please return back to the emergency room or seek medical attention if your symptoms worsen or return. Discharging you from [facility] does not mean that your medical care [...] % (Auto) 91.6, Lymph % (Auto) 3.6, [place] % (Auto) 4.5, Eos % (Auto)0.0, Baso % (Auto) 0.3, Nucleat RBC Rel Count 0.0, Neut # (Auto) 11.9 H, Lymph #(Auto) 0.5 L, [place] # (Auto) 0.6, Eos # (Auto) 0.0, [...] at rest or with minimal exertion. HEENT: [place] conjunctiva and NL buccal mucosa Neck: Supple, [...] []] Discharge Plan Discharge Plan Patient Disposition: Nursing Home Facility Additional Instructions: I may not have addressed or treated all of your medical illnesses or the abnormal blood work or imaging studies during this hospitalization. Please ask your primary care provider to obtain [facility] records entirely to follow up on all [...] seen on current CAT scan done at [facility]. Please collaborate with his primary care doctor [...] symptoms worsen or return. Discharging you from [facility] does not mean that your medical care [...] PO HS fluticasone propionate [Flonase] 50 mcg/actuation [place],Suspension 1 spray INTRANASAL DAILY PRN (Reason: Congestion) hydrochlorothiazide 12.5 mg tablet 12.5 mg PO DAILY Follow Up: Liz Plata MD [Active Staff] - (Suspect underlying CAD) Vince Welsh MD [Active Staff] - (COPD. Abnormal CT of the chest) Erich Alejandro DO [Primary Care Provider] - (Follow-up with your Primary Care Provider after discharge from Rehab) Documented By: Randolph Velasquez MD 09/08/22922 Signed By: <Electronically signed by Randolph Velasquez MD> 09/08/22930 [facility] Work Phone: 1(435) 269-911501-06-2023 Progress note Author Randolph Velasquez [facility] September 07, 2022 9:02am Note Date/Time September 07, 2022 9: 02am [facility] [address] [place] [address] Hospitalist Progress Note Signed Patient: Jose L Ames MR#: [id number] : 1940 Acct:[id number] Age/Sex: 81 / M Adm Date: 3 Loc: Room: 0N4458-6 Type: ADM IN Attending Dr: Randolph Velasquez [...] and is sitting up in bed HEENT: [place] conjunctiva and NL buccal mucosa Neck: Supple, [...] Final Meds Allergies and Active Meds Allergies LINDA Inhibitors Allergy (Mild, Verified 09/04/22 23:10) Cough [...] Propionate 1 spray 09/04/22 23:34 Fluticasone Propionate [place] 120 [place]/16 Gm Bottle INTRANASAL 09/04/23 23:33 DAILY PRN [...] over the last 24 hours. We called [facility] to inquire about the blood culture. Blood culture from [facility] showed no growth thus far. Swallow evaluation did not reveal any aspiration risk. Continue antibiotic. Continue Solu-Medrol. Continue albuterol and Atrovent Pulmonary edema?, mild diastolic acute on chronic heart failure. Echocardiogram showed normal ejection fraction ? Lasix x ? Weinstein catheter?accurate I&O -Requested echo. Keep patient in [...] signed by Randolph Velasquez MD> 09/07/22 0902 [facility] Work Phone: 1(520) 602-486801-05-2023 Progress note Author Randolph Velasquez [facility] September 06, 2022 9:15am Note Date/Time September 06, 2022 9: 15am [facility] [address] [place] [address] Hospitalist Progress Note Signed Patient: Jose L Ames MR#: [id number] : 1940 Acct:[id number] Age/Sex: 81 / M Adm Date: 3 Loc: 4 Room: 3J3090-1 Type: ADM IN Attending Dr: Randolph Velasquez [...] and is sitting up in bed HEENT: [place] conjunctiva and NL buccal mucosa Neck: Supple, [...] 05:22 Meds Allergies and Active Meds Allergies LINDA Inhibitors Allergy (Mild, Verified 09/04/22 23:10) Cough [...] Propionate 1 spray 09/04/22 23:34 Fluticasone Propionate [place] 120 [place]/16 Gm Bottle INTRANASAL 09/04/23 23:33 DAILY PRN [...] normal ejection fraction ? Lasix x ? Weinstein catheter?accurate I&O -Requested echo. Keep patient in [...] By: <Electronically signed by Randolph Velasquez MD> 09/06/22914 [facility] Work Phone: [phone]) 613-186601-04-2023 Progress note Author Randolph Velasquez [facility] September 05, 2022 9:46am Note Date/Time September 05, 2022 9: 46am [facility] [address] [place] [address] Hospitalist Progress Note Signed Patient: Jose L Ames MR#: [id number] : 1940 Acct:[id number] Age/Sex: 81 / M Adm Date: 3 Loc: 4P Room: [address] [place] [address] Type: ADM IN Attending Dr: Randolph Velasquez [...] patient is on oxygen. Morbidly obese HEENT: [place] conjunctiva and NL buccal mucosa Neck: Supple, [...] 05:22 Meds Allergies and Active Meds Allergies LINDA Inhibitors Allergy (Mild, Verified 09/04/22 23:10) Cough [...] 81 Mg Tablet. PO 09/05/23 08:59 DAILY SHARI Dextrose 0 gm 09/05/22 09:39 Dextrose 20 % In Water 10 Gm/50 Ml Syringe IV-PUSH 09/05/23 09:38 PRN PRN Hypoglycemia Enoxaparin Sodium 40 mg 09/05/22 10:00 Enoxaparin 40 Mg/0.4 Ml Syringe SUBCUT 09/05/23 09:59 DAILY@1000 [facility] Fluticasone Propionate 1 spray 09/04/22 23:34 Fluticasone Propionate [place] 120 [place]/16 Gm Bottle INTRANASAL 09/04/23 23:33 DAILY PRN Congestion Furosemide 40 mg 09/05/22 08:00 Furosemide 40 Mg/4 Ml Vial IV-PUSH 09/05/23 07:59 BID@0800,1600 [facility] Glucose 0 gm 09/05/22 09:37 Dextrose 40% Gel 15 Gm Tube PO 09/05/23 09:36 PRN PRN Hypoglycemia Guaifenesin 600 mg 09/05/22 21:00 Guaifenesin 600 Mg Tab.Er.12h PO 09/05/23 20:59 BID SHARI Ampicillin Sodium/Sulbactam Sodium 3 gm in 100 mls @ 200 mls/hr 09/05/22 02:30 09/05/22 03:58 Unasyn IV 200 mls/hr Q6H SHARI Administration Doxycycline Hyclate 100 mg in 100 mls @ 100 mls/hr 09/05/22 10:00 Doxy 100 IV Q12H SHARI Insulin Aspart 0 units 09/05/22 12:00 Insulin Aspart 300 Units/3 Ml Insuln.Pen SUBCUT 09/05/23 11:59 TID.WM.HS [facility] Protocol Insulin Glargine 15 units 09/05/22 09:45 Insulin Glargine 300 Units/3 Ml Insuln.Pen SUBCUT 09/05/23 09:44 DAILY [facility] Methylprednisolone Sodium Succinate 40 mg 09/05/22 14:00 [...] 0.4 Mg Cap.Er.24h PO 09/05/23 20:59 QPM SHARI A&P - Hospitalist Assessment/Plan (1) Acute respiratory [...] ? Blood cultures were obtained at the [facility] -Counseling about tobacco addiction and the need to stop. -Consider CAT scan of the chest. Pulmonary edema?recheck BNP ? Lasix x 1 now ? Weinstein catheter?accurate I&O -Requested echo. Keep patient in [...] findings and plan. Patient was transferred from [facility]. Initial working diagnosis: -Sepsis secondary to community-acquired pneumonia: Started IV antibiotics. Blood cultures were collected at [facility]. Follow-up and de-escalate accordingly. -Acute hypoxic respiratory failure secondary to pneumonia: Requiring oxygen. Wean off as tolerated -Suspect new onset CHF given elevated BNP, chest x-ray with bilateral vascular congestion, leg edema on exam. Given Lasix. Check echocardiogram Javier Jerry MD Documented By: Randolph Velasquez MD 09/05/2242 Signed By: <Electronically signed by Randolph Velasquez MD> 09/05/22 0946 [facility] Work Phone: 1([phone]) 963-197401-04-2023 History and physical note Author Javier Murray [facility] September 05, 2022 1:03am Note Date/Time September 04, 2022 11 :14pm [facility] [address] [place] [address] Hospitalist H&P Signed Patient: Jose L Ames MR#: [id number] : 1940 Acct:[id number] Age/Sex: 81 / M Adm Date: 3 Loc: Room: [address] [place] [address] Type: ADM IN Attending Dr: Clyde Wright DO Copies to: DO Javier Delatorre MD Paula G Smith, APRN Shawn J Warner, ~ HPI DATE OF EXAMINATION: 09/04/22 CHIEF COMPLAINT: shortness of breath, cough, fever, chills HISTORY OF PRESENT ILLNESS: Mr. Ames is an 81-year-old male with a PMH of T2DM, HTN, BPH that was transferred from the [facility] for elevated troponin, shortness of breath, [...] pain with palpation. Patient arrived to the [facility] emergency room with a pulse ox [...] unless noted in the HPI or below. [facility] Social History Smoking Status: Former smoker Substance Use Type: None Meds Medications and Allergies Allergies LINDA Inhibitors Allergy (Mild, Verified 09/04/22 23:10) Cough [...] ? Blood cultures were obtained at the [facility] Pulmonary edema?recheck BNP ? Lasix x 1 now ? Weinstein catheter?accurate I&O Elevated troponin ? Trend troponins [...] findings and plan. Patient was transferred from [facility]. Initial working diagnosis: -Sepsis secondary to community-acquired pneumonia: Started IV antibiotics. Blood cultures were collected at [facility]. Follow-up and de-escalate accordingly. -Acute hypoxic respiratory failure secondary to pneumonia: Requiring oxygen. Wean off as tolerated -Suspect new onset CHF given elevated BNP, chest x-ray with bilateral vascular congestion, leg edema on exam. Given Lasix. Check echocardiogram Javier Jerry MD Documented By: Lakesha Haskins APRN 09/04/22 4685 Signed By: <Electronically signed by DOROTHY Haskins> 09/04/22 2345 <Electronically signed by Javier Murray MD> 09/05/22 0103 [facility] Work Phone: 1([phone]) 411-469004-01-2020 History of Present illness Narrative* Patient is [...] multiple comorbidities, [facility] respiratory [facility] due to pneumonia, could not exclude diastolic heart failure, and had mild elevation of troponin. * Diagnosis is elevated troponin not related to myocardial injury, but possibly related to supply demand mismatch. * Patient has chronic diastolic heart failure * Shortness of breath class III multifactorial * EKG today sinus rhythm 85 first-degree AV block MD interval 218 ms compared to EKG of 09/05/2022 heart rate has decreased. * 1 Uses cane as ambulatory aid, no falls [facility] DO Work Phone: Chief complaint Narrative - ReportedLARRY KWAKU is being seen for CAD referral [facility] DO Work Phone: Chihs complaint Narrative - ReportedLARRY KWAKU is being seen for CAD referral S/P [facility] DO Work Phone: Evaluation + Plan note No data available for this section [facility] Evaluation + Plan note Future Appointments Appointment Date:04/15/2024 01:00:00 PM Scheduled Provider:Carlos A BAEZ MD Location:[facility] Appointment Type:URO Office Visit [facility] Evaluation + Plan note Future Appointments Appointment Date:10/14/2024 01:00:00 PM Scheduled Provider:Carlos A BAEZ MD Location:[facility] Appointment Type:URO Office Visit [facility] Evaluation note* Diagnosis Onset Date Resolution Status Acute respiratory failure with hypoxia acute Community acquired pneumonia acute Elevated troponin acute Hypertension acute Multifactorial functional impairment acute Type 2 diabetes mellitus acu te [facility] Work Phone: Evaluation noteNo [facility] [employer] Other Evaluation note* Diagnosis Onset Date Resolution Status Cervical spondylosis acute Chronic venous insufficiency of lower extremity acute Generally unsteady acute HTN (hypertension) acute Hypercholesterolemia acute Nicotine dependence acute YASMANI (obstructive sleep apnea) acute Pernicious anemia acute Type 2 diabetes mellitus with hyperglycemia acute [facility] Work Phone: Evaluation note* Diagnosis Onset Date Resolution Status Chronic heart failure with p reserved ejection fraction (HFpEF) acute Chronic venous insufficiency of lower extremity acute Generally unsteady acute HTN (hypertension) acute Hypercholesterolemia acute Nicotine dependence acute YASMANI (obstructive sleep apnea) acute Pernicious anemia acute Stage 3b chronic kidney disease acute Type 2 diabetes mellitus with hyperglycemia acute [facility] Work Phone: Evaluation note* Diagnosis Onset Date Resolution Status Chronic heart failure with p reserved ejection fraction (HFpEF) acute Chronic venous insufficiency of lower extremity acute Generally unsteady acute HTN (hypertension) acute Hypercholesterolemia acute Nicotine dependence acute YASMANI (obstructive sleep apnea) acute Pernicious anemia acute Stage 3b chronic kidney disease acute Type 2 diabetes mellitus with hyperglycemia acute Chronic heart failure with p reserved ejection fraction (HFpEF) acute Chronic venous insufficiency of lower extremity acute Generally unsteady acute HTN (hypertension) acute Nicotine dependence acute YASMANI (obstructive sleep apnea) acute Pernicious anemia acute Stage 3b chronic kidney disease acute Type 2 diabetes mellitus with hyperglycemia acute [facility] Work Phone: Evaluation note* Diagnosis Onset Date Resolution Status Chronic heart failure with p reserved ejection fraction (HFpEF) acute Chronic venous insufficiency of lower extremity acute Generally unsteady acute HTN (hypertension) acute Nicotine dependence acute YASMANI (obstructive sleep apnea) acute Pernicious anemia acute Stage 3b chronic kidney disease acute Type 2 diabetes mellitus with hyperglycemia acute Vitamin B12 deficiency nonea ctive [facility] Work Phone: Evaluation note* Diagnosis Imbalance- Primary Abnormality of gait Dizziness Dizziness and giddiness Generalized weakness Daytime hypersomnolence documented in this encounter [facility]* Diagnosis Imbalance- Primary Abnormality of gait Dizziness Dizziness and giddiness Generalized weakness documented in this encounter [facility] HealthcareHistory general Narrative - Reported* Type Description Date [...] History TURP WITH CYSTOSCOPY 2014 Hospitalization History [facility] Hospitalization History SEE SURGICAL HX [facility] [employer] Other History general Narrative - [facility] [employer] Other History general Narrative - Reported* Type [...] (AHI 17, low O2 82) Hospitalization History [facility] Hospitalization History SEE SURGICAL HX Seen Other History of Present illness Narrative* 82-year-old with multiple cardiac risk factors is being seen in cardiology consultation at the request of Dr. Alejandro for evaluation of coronary artery disease. * Patient ambulates with the help of a cane, and is very careful to avoid falls. 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 * Accompanied by to the office. * All medications so far are refilled by Dr. Alejandro. * This cardiology consultation was prompted by a hospital stay at [facility].Patient was admitted in transfer from [facility], with hypoxemia cough congestion, treated for [...] multiple comorbidities, [facility] respiratory failure due to pneumonia, could not exclude diastolic heart failure, and had mild elevation of troponin. * Diagnosis is elevated troponin not related to myocardial injury, but possibly related to supply demand mismatch. * Patient has chronic diastolic heart failure * Shortness of breath class III multifactorial * EKG today sinus rhythm 85 first-degree AV block MD interval 218 ms compared to EKG of [...] arise, * Sincerely, * Cathleen Lopez MD [facility] * I told patient that he should bring his inhalers and use them prior to his perfusion study. [facility] DO Work Phone: Hospital Discharge instructions No data available for this section [facility] Discharge instructions Additional Instructions I may not have addressed or treated all of your medical illnesses or the abnormal blood work or imaging studies during this hospitalization. Please ask your primary care provider to obtain [facility] records entirely to follow up on all [...] seen on current CAT scan done at [facility]. Please collaborate with his primary care doctor [...] symptoms worsen or return. Discharging you from [facility] does not mean that your medical care ends here and now. You may still need additional monitoring, work up, investigation, and treatment plan to be handled from this point on by out patient providers including your primary care provider and specialists. For any medication question, please contact your retail pharmacist or your primary care provider. Thank you. [facility] Rehab to manage care: [...] notify MD if unable to urinate - weinstein catheter removed on 09/08/22 - Fingerstick blood sugar ACHS - sliding scale 3 as ordered - Oxygen at 2L per nasal cannula - titrate as needed to keep pox > 92% - Repeat urinalysis in 2 weeks - [facility] Work Phone: Progress note No data available for this section [facility] Progress note Author Angelo Iglesias [facility] Note Date/Time November 05, 2024 8:44 am [facility] [place] [address] Cancer Center Note Signed Patient: Jose L Ames MR#: [id number] : 1940 Acct:[id number] Age/Sex: 84 / M Type: REG AMB Date of Service: 11/05/24 Copies to: DO [place] MD~ Assessment & Plan A/P (1) Pancytopenia: Plan See HPI for details. My suspicion is that his acute pancytopenia is Zosyn related but can not rule out AML or DIC or Septic shock related bone marrow suppression versus copper deficiency or still iron deficiency on top of his anemia of cheonic disease. He was started on Zosyn since 10/09/24 and since then he has had rapid decline in his WBC, H?H and plt count. Current CBC revealed WBC down from 11 to 2.8, hgb down from 14 to 11. Plt down from 101 to 77. I recommended stopping Zosyn as a possible contributing factor to the myelosuppression. Other differential diagnosis was is on sepsis for which she was admitted 11/05/24: He is here with his for results of the BMBx done for pancytopenia. His PT PTT INR were normal on 10/11/2024. HIV is nonreactive. Copper level is normal 76 on 10/11/2024. His hepatitis B surface antigen negative surface antibody nonreactive core total antibodies negative and core IgM antibodies negative hepatitis C antibodies nonreactive as well. Bone marrow biopsy was done on 10/22/2024 which revealed low-level monoclonal B cells about 1% of the sample of uncertain clinical significance. Blasts were not increased there were only 1%. Neutrophils were 76% monocyte 6% and the lymphocyte about 7 to 8%. Plasma cells were 0.2%. Bone marrow biopsy and aspirate core results reviewed revealed: Diagnostic features of hematopoietic neoplasia or overt dysplasia are not identified. Normocellular bone marrow for age 25 to 30% with trilineage hematopoiesis and no increase in blasts. No significant increase in marrow treat reticulin fibers. Storage iron was present. Given adequate megakaryocytes presents his thrombocytopenia is most likely related to a peripheral sequestration of the platelet or peripheral destruction of the platelet. And flow cytometry revealedno significant immunophenotypic abnormalities. Cytogenetics could not be done because there were no immediate face is availableduring the test. PLAN: Since his bone marrow did not reveal any immunophenotypic abnormalities or MDS or leukemia lymphoma or bone marrow failure, we will follow observation. Repeat labs including CBC with differential CMP folate iron studies B12 and LDH in 6 months and see him then. He asked me about his generalized weakness I asked him to continue his current outpatient physical therapy and follow-up with his primary care physician in regards to that. Patient Instructions: cbc,cmp,iron,b12,ldh in 6 months return in 6 months CHEMO PLAN No Active Chemotherapy History of Present Illness HPI REASON FOR CONSULT: Acute pancytopenia HISTORY OF PRESENT: Jose L Ames is a 84 year old male seen at the request of the hospitalist service for acute pancytopenia management. Jose L has history of CKD, diastolic heart failure?last EF 65%, BPH, T2DM, HTN, YASMANI, AAA who presented to [facility] emergency room for altered mental status and weakness. [facility] chart review?patient arrived to [facility] via EMS for altered mental status, increased weakness, EMS reported slurred speech, facial droop and extremity weakness. CT of the head was performed which showed no acute intracranial process. tPA was not recommended suggested symptoms were related to generalized weakness. CBC with a white blood cell count of 17.2, otherwise unremarkable. Coags were unremarkable. CMP creatinine 3.09. Initiallactic acid 5.3, repeat 0.7. Blood alcohol less than 3. Nasal swab was negative for influenza and COVID. UA with dark yellow, cloudy urine, negative for bacteria, leukocytes and nitrites, specific gravity greater than 1.03 and 30of protein, did not reflex for culture. Chest x-ray showed no acute intra cardiopulmonary process. CT of the abdomen pelvis showed mild fluid distention of small bowel loops without discrete transition zone which may represent gastroenteritis, early small bowel obstruction not completely excluded. EKG sinus tachycardia, repeat EKG sinus rhythm with first- degree AVB. He did become hypotensive after saline bolus?total of 2.5 L, Levophed drip was started. He was medicated with vancomycin, Zosyn. Weinstein catheter was inserted. He was transferred here as inpatient to the intensive care unit under the care of the hospitalist team. Patient has remote history of at least partial colectomy for diverticulitis. Hereports approximately 3 weeks of diarrhea which has gotten particularly worse 2 to 3 days prior to admission. He reports he more recently has been trying to decrease liquid intake due to diarrhea but had been continuing oral intake with food. He denied prior fever, shaking shivering chills, or sweats. He denies significant cough, sputum production nor significant respiratory complaints. Hedenies chest pain or palpitations. He did not endorse blood in his stool or dark tarry stool. He denies dysuria nor hematuria. He denied history of previous malignancies or ever treated with chemotherapy. He denies dizziness or shortness of breath, nausea or vomiting. He states that he smokes about 1 cigarette a day, denies alcohol or illicit druguse. At [facility], his iron studies were c/w anemia of chronic disease with mildly low iron, TIBC and iron sat. No ferritin was done. B12 and folate were within normal range. he was started on Zosyn since 10/09/24 and since then he has had rapid decline in his WBC, H?H and plt count. Current CBC revealed WBC down from 11 to 2.8, hgb down from 14 to 11. Plt down from 101 to 77. 11/05/24: He is here with his for results of the BMBx done for pancytopenia. His PT PTT INR were normal on 10/11/2024. HIV is nonreactive. Copper level is normal 76 on 10/11/2024. His hepatitis B surface antigen negative surface antibody nonreactive core total antibodies negative and core IgM antibodies negative hepatitis C antibodies nonreactive as well. Bone marrow biopsy was done on 10/22/2024 which revealed low-level monoclonal B cells about 1% of the sample of uncertain clinical significance. Blasts were not increased there were only 1%. Neutrophils were 76% monocyte 6% and the lymphocyte about 7 to 8%. Plasma cells were 0.2%. Bone marrow biopsy and aspirate core results reviewed revealed: Diagnostic features of hematopoietic neoplasia or overt dysplasia are not identified. Normocellular bone marrow for age 25 to 30% with trilineage hematopoiesis and no increase in blasts. No significant increase in marrow treat reticulin fibers. Storage iron was present. Given adequate megakaryocytes presents his thrombocytopenia is most likely related to a peripheral sequestration of the platelet or peripheral destruction of the platelet. And flow cytometry revealedno significant immunophenotypic abnormalities. Cytogenetics could not be done because there were no immediate face is availableduring the test. Intake Vitals/Pain Assessment 11/05/24 09:02 Height 6 ft Weight 107.955 kg BMI 32.3 Body Fat % 53.18 BP 136/78 Blood Pressure Location Rt brachial Position Sitting Pulse 74 Pulse Source NIBP Respiration 20 Pulse Oximetry (%) 97 Oxygen Delivery Method room air Are you having pain? No Intake Visit Reasons: FOLLOW UP AFTER BONE MARROW BX Accompanied by: Spouse Allergies LINDA Inhibitors Allergy (Mild, Verified 11/05/24 09:06) Cough Home Medications - Last Reconciled 11/05/24 by GINNY Benz amlodipine 5 mg (1/2 x 10 mg) PO BID ascorbic acid (vitamin C) 500 mg PO DAILY aspirin 81 mg PO DAILY blood sugar diagnostic (FreeStyle Lite Strips) to test blood sugar twice daily blood-glucose meter (FreeStyle Lite Meter kit) to check blood sugar daily cholecalciferol (vitamin D3) 10 mcg PO DAILY clotrimazole-betamethasone 1-0.05 % 1 applic topical BID 30 days insulin glargine (Lantus Solostar U-100 Insulin) 20 units subcut DAILY lancets (FreeStyle Lancets) TEST TWICE DAILY*E11.9* lisinopril 10 mg (1/2 x 20 mg) PO BID [id number] mcg (Centrum Silver Men) 1 tab PO DAILY pen needle, diabetic (BD Ultra-Fine Mini Pen Needle) USE WITH LANTUS DAILY potassium chloride ER TAKE 1 TABLET BY MOUTH EVERY DAY semaglutide (Ozempic) INJECT 0.25 MG SUBCUTANEOUSLY WEEKLY FOR 4 WEEKS, THEN 0.5 MG WEEKLY THEREAFTER tamsulosin TAKE 1 CAPSULE BY MOUTH EVERY EVENING tizanidine TAKE 1/2 TO 1 TABLET BY MOUTH EVERY DAY AT BEDTIME torsemide 10 mg PO DAILY@0800 30 days Gastrointestinal Is the patient taking opioids for pain control?: No Bowel Protocol for Opioids Given: No Bowel Pattern: Regular Bowel Movement Aid(s): None Falls Fall Precaution Measures Taken: Patient in chair Nurse's Note: Patient is here for an inpatient follow up with labs and imaging for review. 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 Left humeral fracture Iron deficiency anemia due to chronic blood loss Generally unsteady Diverticulosis of colon Chronic diastolic heart failure Benign prostatic hyperplasia with lower urinary tract symptoms Aneurysm of left common iliac artery Abdominal aortic aneurysm, without rupture, unspecified Abdominal aortic aneurysm Chronic venous insufficiency of lower extremity Hypercholesterolemia Cervical spondylosis Nicotine dependence Type 2 diabetes mellitus with hyperglycemia YASMANI (obstructive sleep apnea) HTN (hypertension) Surgical History Surgical History History of tonsillectomy H/O colonoscopy (~2017) S/P TURP (transurethral resection of prostate) H/O bilateral cataract extraction History of colon resection (~2019) open sigmoid Family History Family History Father Mother Social History Social History (Updated 11/05/24 @ 09:11 by GINNY Benz) Smoking status: Former smoker Within the past year, how often did you have a drink containing alcohol: never AUDIT-C Alcohol total score: 0 AUDIT-C Alcohol score interpretation: A score less than 4 is consistent with normal alcohol consumption. In the past 12 months, have you used illegal drugs or prescription drugs for non-medical reasons?: No Review of Systems ROS Details: All systems reviewed & no additional complaints except as documented General: Patient denied fevers, chills, rigors, weight loss or loss of appetite. Head: Patient denied any headaches or vision changes Thoracic: Patient denied any shortness of breath or cough or hemoptysis Cardiovascular patient denies any chest pain or leg edema GI: Patient denies any nausea vomiting rectal bleed diarrhea : Patient denied gross hematuria. Hematology: Patient denied any bleeding from any source. No easy bruising. Lymphatic: No enlarged LAP anywhere. Skin: Normal skin exam no rashes or suspicious lesions. Neurological patient denies any headache or dizziness or focal weakness or sensory changes. Physical Exam EXAM HEENT normocephalic atraumatic pupils are equal and round Neck supple without thyromegaly or any cervical lymphadenopathy. Chest clear to auscultation bilaterally without wheezing crackles or rhonchi Heart regular rate and rhythm S1-S2 without murmurs gallop or rub Abdomen soft nontender not distended without hepatosplenomegaly or masses clinically Extremities no edema of the lower extremities Skin without any suspicious rashes Lymphatic system no lymphadenopathy in the cervical area axillary areas or inguinal areas bilaterally Neurological exam patient is cooperative alert and oriented x3 no focal deficits. Results - [facility] LAB RESULTS Corrected WBC 3.4 X10E3/uL (4.1-10.5) L 10/22/24 09:14 10/22 Hgb 13.4 g/dL (13.0-17.0) 10/22/24 09:14 10/22/24 Hct 38.8 % (38.8-50.0) 10/22/24 09:14 10/22/24 MCV 97.9 fl (83.5-101) 10/22/24 09:14 10/22/24 RDW 13.6 % (12.0-14.8) 10/22/24 09:14 10/22/24 Plt Count 117 x10E3/uL (150-450) L 10/22/24 09:14 Sodium 137 mmol/L (136-145) 10/14/24 04:37 10/14/24 Potassium 3.4 mmol/L (3.5-5.1) L 10/14/24 04:37 10/14/24 BUN 17 mg/dL (7-25) 10/14/24 04:37 10/14/24 Creatinine 1.17 mg/dL (0.70-1.30) 10/14/24 04:37 10/14/24 Glucose 168 mg/dL (70-100) H 10/14/24 04:37 10/14/24 Est GFR (CKD-EPI) > 60.0 mL/Min 10/14/24 04:37 10/14/24 Calcium 7.9 mg/dL (8.6-10.3) L 10/14/24 04:37 10/14/24 Total Bilirubin 0.3 mg/dl (0.3-1.0) 10/12/24 04:41 10/12/24 AST 42 U/L (13-39) H 10/12/24 04:41 10/12/24 ALT 47 U/L (7-52) 10/12/24 04:41 10/12/24 Alkaline Phosphatase 69 U/L (34-104) 10/12/24 04:41 10/12/24 Iron 118 ug/dL (50-212) 10/11/24 13:26 10/11/24 Iron Saturation 44.2 % (20-50) 10/11/24 13:26 10/11/24 Ferritin 131.0 ng/mL (23.9-336.2) 10/11/24 13:26 Total Protein 4.7 gm/dL (6.4-8.9) L 10/12/24 04:41 10/12/24 Albumin 3.0 gm/dL (3.5-5.7) L 10/12/24 04:41 10/12/24 Lactate Dehydrogenase 199 U/L (140-271) 10/11/24 13:26 5 Social Determinants of Health Screening SDOH last assessed in clinic: 11/05/24 Will the patient participate in the screening?: Yes Do you worry about having a steady place to live?: No In the past 12 months, have you had to go without electric, gas, oil, or water in your home?: No Have you or anyone in your house had to go without enough food to eat?: No Has lack of reliable transportation kept you from medical appointments or from doing things needed for daily living?: No Has anyone in your support network made you feel unsafe for any reason?: No Does the patient want assistance with any of the above?: No Dictated By: Angelo Iglesias MD DD/ [id number] Signed By: <Electronically signed by Angelo Iglesias MD> 11/05/24 0944 [facility] Work Phone: Chief Complaint and Reason for Visit Chief [...] disease Type 2 diabetes mellitus with hyperglycemia Chief Complaint Amb Documentation 3 month follow up 2 month follow up Reason for Visit Chronic heart failur e with preserved ejection fraction (HFpEF) Chronic venous insufficiency of lower extremity Generally unsteady HTN (hypertension) Hypercholesterolemia Nicotine dependence YASMANI (obstructive sleep apnea) Pernicious anemia Stage 3b chronic kidney disease Type 2 diabetes mellitus with hyperglycemia Chronic heart failure with preserved ejection fraction (HFpEF) Chronic venous insufficiency of lower extremity Generally unsteady HTN (hypertension) Nicotine dependence YASMANI (obstructive sleep apnea) Pernicious anemia Stage 3b chronic kidney disease Type 2 diabetes mellitus with hyperglycemia Chief Complaint 2 month follow up B12 Shot Reason for Visit Chronic heart failur e with preserved ejection fraction (HFpEF) Chronic venous insufficiency of lower extremity Generally unsteady HTN (hypertension) Nicotine dependence YASMANI (obstructive sleep apnea) Pernicious anemia Stage 3b chronic kidney disease Type 2 diabetes mellitus with hyperglycemia Vitamin B12 deficiency Chief Complaint 2 month follow up B12 Shot B12 Shot Reason for Visit Chronic heart failur e with preserved ejection fraction (HFpEF) Chronic venous insufficiency of lower extremity Generally unsteady HTN (hypertension) Nicotine dependence YASMANI (obstructive sleep apnea) Pernicious anemia Stage 3b chronic kidney disease Type 2 diabetes mellitus with hyperglycemia Vitamin B12 deficiency Chief Complaint Admit Date B12 Shot May 26, 2024 3:25pm B12 Shot June 30, 2024 1 1:34am CC Adult Risk Stratification June 12:15pm 3 month f/u July 15, 2024 1:53pm Reason for Visit Admit Date Vitamin B12 deficiency May 26, 3:25pm Chronic heart failure with p reserved ejection fraction (HFpEF) July 15, 2024 1:53pm Chronic kidney disease July 15 1:53pm Chronic venous insufficiency of lower ex tremity July 15, 2024 1:53pm Generally unsteady July 15, 2024 1:53pm HTN (hypertension) July 15, 2024 1:53pm Medicare annual wellness visit, lailae nt July 15, 2024 1:53pm Nicotine dependence July 15, 2024 1:53pm YASMANI (obstructive sleep apnea) July 032023 1:53pm Pernicious anemia July 15, 2024 1:53pm Type 2 diabetes mellitus with hyperglyce lyla July 15, 2024 1:53pm Chief Complaint Admit Date 3 month f/u July 15, 2024 1:53pm B12 September 01, 2024 10:51am b12 shot October 05, 2024 3 :27pm Reason for Visit Admit Date Chronic heart failure with p reserved ejection fraction (HFpEF) July 15, 2024 1:53pm Chronic kidney disease July 15 1:53pm Chronic venous insufficiency of lower ex tremity July 15, 2024 1:53pm Generally unsteady July 15, 2024 1:53pm HTN (hypertension) July 15, 2024 1:53pm Medicare annual wellness visit, michelle nt July 15, 2024 1:53pm Nicotine dependence July 15, 2024 1:53pm YASMANI (obstructive sleep apnea) July 032023 1:53pm Pernicious anemia July 15, 2024 1:53pm Type 2 diabetes mellitus with hyperglyce lyla July 15, 2024 1:53pm Chief Complaint Admit Date B12 September 01, 2024 10:51am b12 shot October 05, 2024 3 :27pm septic shock October 09, 2024 1 :47am septic shock October 09, 2024 1 :04pm septic shock October 10, 2024 1 2:01pm Reason for Visit Admit Date ANGIE (acute kidney injury) October 09, 2024 1:47am Chronic heart failure with p reserved ejection fraction (HFpEF) October 09, 2024 1:47am Chronic kidney disease October 09 1:47am Diarrhea October 09, 2024 1 :47am Gastroenteritis October 09, 2024 1 :47am Hypovolemic shock October 09, 2024 1 :47am YASMANI (obstructive sleep apnea) October 092024 1:47am Pancytopenia October 09, 2024 1 :47am Sepsis October 09, 2024 1 :47am Syncope October 09, 2024 1 :47am Type 2 diabetes mellitus with hyperglyce lyla October 09, 2024 1:47am Chief Complaint Admit Date B12 September 01, 2024 10:51am b12 shot October 05, 2024 3 :27pm septic shock October 09, 2024 1 :47am septic shock October 09, 2024 1 :04pm septic shock October 10, 2024 1 2:01pm Amb Documentation October 15, 2024 9:07am Reason for Visit Admit Date ANGIE (acute kidney injury) October 09, 2024 1:47am Chronic heart failure with p reserved ejection fraction (HFpEF) October 09, 2024 1:47am Chronic kidney disease October 09 1:47am Diarrhea October 09, 2024 1 :47am Gastroenteritis October 09, 2024 1 :47am Hypovolemic shock October 09, 2024 1 :47am YASMANI (obstructive sleep apnea) October 092024 1:47am Pancytopenia October 09, 2024 1 :47am Sepsis October 09, 2024 1 :47am Syncope October 09, 2024 1 :47am Type 2 diabetes mellitus with hyperglyce lyla October 09, 2024 1:47am Chronic heart failure with p reserved ejection fraction (HFpEF) October 21, 2024 11:31am Chronic kidney disease October 21 11:31am Chronic venous insufficiency of lower ex tremity October 21, 2024 11:31am HTN (hypertension) October 21, 2024 11:31am Nicotine dependence October 21, 2024 11:31am YASMANI (obstructive sleep apnea) October 032024 11:31am Pancytopenia October 21, 2024 11:31am Pernicious anemia October 21, 2024 11:31am Type 2 diabetes mellitus with hyperglyce lyla October 21, 2024 11:31am Chief Complaint Admit Date B12 September 01, 2024 10:51am b12 shot October 05, 2024 3 :27pm septic shock October 09, 2024 1 :47am septic shock October 09, 2024 1 :04pm septic shock October 10, 2024 1 2:01pm Amb Documentation October 15, 2024 9:07am pancytopenia October 22, 2024 8:53am Reason for Visit Admit Date ANGIE (acute kidney injury) October 09, 2024 1:47am Chronic heart failure with p reserved ejection fraction (HFpEF) October 09, 2024 1:47am Chronic kidney disease October 09 1:47am Diarrhea October 09, 2024 1 :47am Gastroenteritis October 09, 2024 1 :47am YASMANI (obstructive sleep apnea) October 092024 1:47am Sepsis October 09, 2024 1 :47am Syncope October 09, 2024 1 :47am Type 2 diabetes mellitus with hyperglyce lyla October 09, 2024 1:47am Hypovolemic shock October 09, 2024 1 :47am Pancytopenia October 09, 2024 1 :47am Chronic heart failure with p reserved ejection fraction (HFpEF) October 21, 2024 11:31am Chronic venous insufficiency of lower ex tremity October 21, 2024 11:31am HTN (hypertension) October 21, 2024 11:31am Nicotine dependence October 21, 2024 11:31am YASMANI (obstructive sleep apnea) October 032024 11:31am Pernicious anemia October 21, 2024 11:31am Type 2 diabetes mellitus with hyperglyce lyla October 21, 2024 11:31am Pancytopenia October 21, 2024 11:31am Pernicious anemia October 22, 2024 8:53am Thrombocytopenia October 22, 2024 8:53am Chief Complaint Admit Date B12 September 01, 2024 10:51am b12 shot October 05, 2024 3 :27pm septic shock October 09, 2024 1 :47am septic shock October 09, 2024 1 :04pm septic shock October 10, 2024 1 2:01pm Amb Documentation October 15, 2024 9:07am pancytopenia October 22, 2024 8:53am FOLLOW UP AFTER BONE MARROW BX October 8:53am Reason for Visit Admit Date ANGIE (acute kidney injury) October 09, 2024 1:47am Chronic heart failure with p reserved ejection fraction (HFpEF) October 09, 2024 1:47am Chronic kidney disease October 09 1:47am Diarrhea October 09, 2024 1 :47am Gastroenteritis October 09, 2024 1 :47am YASMANI (obstructive sleep apnea) October 092024 1:47am Pancytopenia October 09, 2024 1 :47am Sepsis October 09, 2024 1 :47am Syncope October 09, 2024 1 :47am Type 2 diabetes mellitus with hyperglyce lyla October 09, 2024 1:47am Hypovolemic shock October 09, 2024 1 :47am Chronic heart failure with p reserved ejection fraction (HFpEF) October 21, 2024 11:31am Chronic venous insufficiency of lower ex tremity October 21, 2024 11:31am HTN (hypertension) October 21, 2024 11:31am Nicotine dependence October 21, 2024 11:31am YASMANI (obstructive sleep apnea) October 032024 11:31am Pancytopenia October 21, 2024 11:31am Pernicious anemia October 21, 2024 11:31am Type 2 diabetes mellitus with hyperglyce lyla October 21, 2024 11:31am Pernicious anemia October 22, 2024 8:53am Thrombocytopenia October 22, 2024 8:53am Pancytopenia November 05, 2024 8:53 am Chief Complaint Admit Date b12 shot October 05, 2024 3 :27pm septic shock October 09, 2024 1 :47am septic shock October 09, 2024 1 :04pm septic shock October 10, 2024 1 2:01pm Amb Documentation October 15, 2024 9:07am pancytopenia October 22, 2024 8:53am PANCYTOPENIA November 05, 2024 8:45 am FOLLOW UP AFTER BONE MARROW BX October 8:53am B12 shot December 10, 2024 2:1 3pm Chief Complaint Admit Date b12 shot October 05, 2024 3 :27pm septic shock October 09, 2024 1 :47am septic shock October 09, 2024 1 :04pm septic shock October 10, 2024 1 2:01pm Amb Documentation October 15, 2024 9:07am pancytopenia October 22, 2024 8:53am PANCYTOPENIA November 05, 2024 8:45 am FOLLOW UP AFTER BONE MARROW BX October 8:53am B12 shot December 10, 2024 2:1 3pm leg rash December 14, 2024 2:3 4pm Reason for Visit Admit Date ANGIE (acute kidney injury) October 09, 2024 1:47am Chronic heart failure with p reserved ejection fraction (HFpEF) October 09, 2024 1:47am Chronic kidney disease October 09 1:47am Diarrhea October 09, 2024 1 :47am Gastroenteritis October 09, 2024 1 :47am YASMANI (obstructive sleep apnea) October 092024 1:47am Pancytopenia October 09, 2024 1 :47am Sepsis October 09, 2024 1 :47am Syncope October 09, 2024 1 :47am Type 2 diabetes mellitus with hyperglyce lyla October 09, 2024 1:47am Hypovolemic shock October 09, 2024 1 :47am Chronic heart failure with p reserved ejection fraction (HFpEF) October 21, 2024 11:31am Chronic venous insufficiency of lower ex tremity October 21, 2024 11:31am HTN (hypertension) October 21, 2024 11:31am Nicotine dependence October 21, 2024 11:31am YASMANI (obstructive sleep apnea) October 032024 11:31am Pancytopenia October 21, 2024 11:31am Pernicious anemia October 21, 2024 11:31am Type 2 diabetes mellitus with hyperglyce lyla October 21, 2024 11:31am Pernicious anemia October 22, 2024 8:53am Thrombocytopenia October 22, 2024 8:53am Pancytopenia November 05, 2024 8:53 am Pernicious anemia December 10, 2024 2:1 3pm Chronic heart failure with p reserved ejection fraction (HFpEF) December 14, 2024 2:34pm Chronic kidney disease December 14, 2024 2:34pm HTN (hypertension) December 14, 2024 2:3 4pm Pancytopenia December 14, 2024 2:3 4pm Type 2 diabetes mellitus with hyperglyce lyla December 14, 2024 2:34pm Advance Directives Advance Directive Response Recorded Date/ [...] Date/T asif father Unknown Not Specified Unknown Relationship Condition Age at Onset Recorded Date/T asif father Unknown mother Unknown Chief Complaint JOSE L AMES is being seen for a 6 month follow-up of. Additional Source Comments Patient Care team informatio n (unrecognized section and content) Team Status: Active Member Role Status Dates Erich Alejandro DO Primary Care Provider Active Team Status: Inactive Member Role Status Dates Erich Alejandro DO Primary Care Provide r, Attending Provider Active Start: September 01, 2024 End: September 01, 2024 Team Status: Inactive Member Role Status Dates Erich Alejandro DO Primary Care Provide r, Attending Provider Active Start: October 05, 2024 End: October 05, 2024 Team Status: Active Member Role Status Dates Erich Alejandro DO Primary Care Provide r, Attending Provider Active Start: October 06, 2024 Team Status: Active Member Role Status Dates Erich Alejandro DO Primary Care Provider Active Start: October 08, 2024 Carey Paz Smith DO Attending Provider Active Sta rt: October 08, 2024 Team Status: Inactive Member Role Status Dates Erich Alejandro DO Primary Care Provider Active Start: October 09, 2024 End: October 14, 2024 Javier Murray MD Admit Provider Active Sta rt: October 09, 2024 End: October 14, 2024 Mateusz Arellano MD Other Provider Active Start : October 09, 2024 End: October 14, 2024 Angelo Iglesias MD Other Provider Active Start: October 09, 2024 End: October 14, 2024 West Caraballo MD Attending Provider Active Start: October 09, 2024 End: October 14, 2024 Team Status: Active Member Role Status Dates Erich Alejandro DO Primary Care Provider Active Start: October 09, 2024 Javier Murray MD Admit Provider Active Sta rt: October 09, 2024 Vince Welsh MD Attending Pr ovider, Other Provider Active Start: October 09, 2024 Loyda Carlos MD Other Provider Active Start: 2024 Team Status: Active Member Role Status Dates Erich Alejandro DO Primary Care Provider Active Start: October 10, 2024 Javier Murray MD Admit Provider Active Sta rt: October 10, 2024 Vince Welsh MD Other Provider Active Start: October 10, 2024 Mateusz Arellano MD Attending Provider, Other Provider Active Start: October 10, 2024 Loyda Carlos MD Other Provider Active Start: 2024 Team Status: Active Member Role Status Dates Erich Alejandro DO Primary Care Provider Active Start: October 15, 2024 Nicole Santiago CMA Attending Provider Active Start: October 15, 2024 Team Status: Inactive Member Role Status Dates Erich Alejandro DO Primary Care Provide r, Attending Provider Active Start: October 21, 2024 End: October 21, 2024 Team Status: Active Member Role Status Dates Erich Alejandro DO Primary Care Provide r, Attending Provider Active Start: July 16, 2024 Team Status: Inactive Member Role Status Dates Erich Alejandro DO Primary Care Provide r, Attending Provider Active Start: July 15, 2024 End: July 15, 2024 Team Status: Active Member Role Status Dates Erich Alejandro DO Primary Care Provide r, Attending Provider Active Start: April 28, 2024 Team Status: Inactive Member Role Status Dates Erich Alejandro DO Primary Care Provide r, Attending Provider Active Start: May 26, 2024 End: May 26, 2024 Team Status: Inactive Member Role Status Dates Erich Alejandro DO Primary Care Provide r, Attending Provider Active Start: June 30, 2024 End: June 30, 2024 Team Status: Active Member Role Status Dates Erich Alejandro DO Primary Care Provide r, Attending Provider Active Start: July 01, 2024 Team Status: Inactive Member Role Status Jeremiah Alejandro DO Primary Care Provide r, Attending Provider Active Start: April 07, 2024 End: April 07, 2024 Team Status: Active Member Role Status Jeremiah Alejandro DO Primary Care Provider Active Start: January 13, 2024 GINNY Bee Attending Provider Active Start : January 13, 2024 Team Status: Active Member Role Status Jeremiah Alejandro DO Primary Care Provide r, Attending Provider Active Start: January 16, 2024 Team Status: Inactive Member Role Status Jeremiah Alejandro DO Primary Care Provide r, Attending Provider Active Start: February 05, 2024 End: February 05, 2024 Team Status: Inactive Member Role Status Dates Erich Alejandro DO Primary Care Provider Active Start: December 19, 2023 End: December 19, 2023 Melissa Sneed APRN [employer] Attending Provider Act abe Start: December 19, 2023 End: December 19, 2023 Team Status: Inactive Member Role Status Dates Erich Alejandro DO Primary Care Provider Active Javier Murray MD Admit Provider Active Randolph Velasquez MD Attending Provider Active Team Status: Active Member Role Status Dates Provider Conversion Attending Provider Active St art: October 03, 2023 Team Status: Inactive Member Role Status Dates Erich Alejandro DO Primary Care Provide r, Attending Provider Active Start: November 06, 2023 End: November 06, 2023 [employer]ber 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[employer]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 Specialty Start Date End Date Erich Alejandro MD [address] [place] [facility] [place] [id number] PCP - General Internal Medicine 01/30/24 [employer]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 Specialty Start Date End Date Erich Alejandro MD [address] [facility] [place] [phone] PCP - General Internal Medicine 01/30/24 [employer]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 Specialty Start Date End Date Erich Alejandro MD [address] [facility] [place] [address] PCP - General Internal Medicine 01/30/24 Jailyn Sepulveda NP [address] [id number] Nurse Practitioner Neurology 07/06/24 Vince Cherry DO [address] [place] [address] Referring Physician Neurology 07/06/24 [employer]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 Specialty Start Date End Date Erich Alejandro MD [address] [facility] [place] [id number] PCP - General Internal Medicine 01/30/24 Jailyn Sepulveda NP [address] [address] Nurse Practitioner Neurology 07/06/24 Vince Cherry DO [address] [place] [address] Referring Physician Neurology 07/06/24 Team Status: Inactive Member Role Status Dates Erich Alejandro DO Primary Care Provider Active Start: October 22, 2024 End: October 22, 2024 Angelo Iglesias MD Attending Provider Active Start: October 22, 2024 End: October 22, 2024 Team Status: Active Member Role Status Dates Erich Alejandro DO Primary Care Provide r, Attending Provider Active Start: October 08, 2024 Team Status: Active Member Role Status Dates Erich Alejandro DO Primary Care Provide r, Attending Provider Active Start: October 09, 2024 Team Status: Inactive Member Role Status Dates Erich Alejandro DO Primary Care Provider Active Start: November 05, 2024 End: November 05, 2024 Angelo Iglesias MD Attending Provider Active Start: November 05, 2024 End: November 05, 2024 West Caraballo MD Referring Provider Active Start: November 05, 2024 End: November 05, 2024 Team Status: Active Member Role Status Dates Erich Alejandro DO Primary Care Provider Active Start: November 05, 2024 Angelo Iglesias MD Attending Provider Active Start: November 05, 2024 West Caraballo MD Referring Provider Active Start: November 05, 2024 Team Status: Inactive Member Role Status Dates Erich Alejandro DO Primary Care Provider Active Start: December 10, 2024 End: December 10, 2024 Staci Burnette MD Attending Provider Active St art: December 10, 2024 End: December 10, 2024 Team Status: Inactive Member Role Status Dates Erich Alejandro DO Primary Care Provide r, Attending Provider Active Start: December 14, 2024 End: December 14, 2024 REASON FOR VISIT (unrecogniz ed section and content) Reason Comments Dizziness Gait Problem Weakness, Gen BUE Reason Comments Dizziness Imbalance Weakness, Gen (unrecognized sect ion and content) No Status Records FoundNo Status Records FoundNo Status Records FoundNo Status Records FoundNo Status Records FoundNo Status Records FoundNo Status Records FoundNo Status Records Found INFORMATION SOURCE (unrecogn ized section and content) DATE CREATED AUTHOR 10/26/2022 [facility] DATE CREATED AUTHOR AUTHOR'S ORGANIZ ATION 03/[facility]/2023 [facility] DATE CREATED AUTHOR AUTHOR'S ORGANIZ ATION 03/12/2023 [facility] DATE CREATED AUTHOR AUTHOR'S ORGANIZ ATION 03/12/2023 [employer] DATE CREATED AUTHOR AUTHOR'S ORGANIZ ATION 10/06/2024 [facility] DATE CREATED AUTHOR AUTHOR'S ORGANIZ ATION 11/04/2024 [facility] DATE CREATED AUTHOR AUTHOR'S ORGANIZ ATION 11/15/2024 [facility] DATE CREATED AUTHOR AUTHOR'S ORGANIZ ATION 12/12/2024 [facility] Goals (unrecognized section and content) Goals may [...] BE BASED ON THE PRIMARY CLINICAL RECORDS. [facility] [employer] [facility]. provides no warranty or guarantee of the accuracy or completeness of information in this document.
[2024-12-17 12:22] LABS: Hematocrit 37.7 % (42.0-54.0); Hemoglobin 13.1 g/dL (14.0-18.0); Mean Corpuscular HGB Conc 34.7 g/dL (29.9-35.2); Mean Corpuscular Hemoglobin 34.6 pg (25.9-34.0); Mean Corpuscular Volume 99.5 fL (80.0-94.0); Mean Platelet Volume 9.2 fL (9.5-13.5); Platelet Count 111 10^3/uL (150-450); Red Blood Count 3.79 10^6/uL (4.70-6.10); White Blood Count 5.1 10^3/uL (4.0-11.0)
[2024-12-17 12:48] LABS: Lymphocytes Absolute Manual 0.61 10^3/uL (1.20-3.80); Monocytes Absolute Manual 0.15 10^3/uL (0.30-0.80); Segmented Neut Absolute Manual 4.33 10^3/uL (1.4-6.5)
[2024-12-17 13:41] LABS: Alanine Aminotransferase 20 U/L (16-63); Albumin Globulin Ratio 1.3; Albumin Level 3.7 g/dL (3.4-5.0); Alkaline Phosphatase 131 U/L (46-116); Anion Gap 12.1; Aspartate Amino Transferase 13 U/L (15-37); BUN Creatinine Ratio 13.8; Bilirubin Total 0.4 mg/dL (0.2-1.0); Calcium 8.7 mg/dL (8.5-10.1); Carbon Dioxide 27.1 mmol/L (21.0-32.0); Chloride 102 mmol/L (98-107); Estimated GFR (African America 53 (>=60 mL/min/1.73m^2); Estimated GFR (Non-African Ame 44 (>=60 mL/min/1.73m^2); Globulin 2.8 g/dL; Glucose 247 mg/dL (74-106); Potassium 4.2 mmol/L (3.5-5.1); Sodium 137 mmol/L (136-145); Thyroid Stimulating Hormone 1.099 uIU/mL (0.358-3.740); Total Protein 6.5 g/dL (6.4-8.2)
== END 2024-12-17 11:31 | disposition home or self-care (01) ==
LOC: LAB 11:36
PROVIDERS: PCP Internal Medicine; Visit Provider Internal Medicine
DX: R53.83 Other fatigue (principal); D61.818 Other pancytopenia; N18.31 Chronic kidney disease, stage 3a; I50.32 Chronic diastolic (congestive) heart failure; E11.65 Type 2 diabetes mellitus with hyperglycemia; I12.9 Hypertensive chronic kidney disease with stage 1 through stage 4 chronic kidney disease, or unspecified chronic kidney disease
CPT/HCPCS: 36415; 80053; 84443; 85007; 85027

== ENCOUNTER 2025-04-23 11:50 | Outpatient (OUT) | payer MEDICARE, BC, SELFPAY ==
--- OUTSIDE RECORDS SUMMARY | 2025-04-23 12:04 | XMS_ITS | CCD ---
Author Organization [facility] Care Team Providers Care Sales Rep Name Role Phone ERICH ALEJANDRO Primary Care Physician DO Erich Alejandro Primary Care Provider MD Javier Murray Admit Provider MD Randolph Velasquez Attending Provider Erich Alejandro Unavailable JAVON, DR GORMAN Admitting Unavailable BALL, [...] TRAN Consulting Unavailable TROTTI, GIROLACRISTAL Consulting Unavailable Javon, Erich E Unavailable Unavailable Unavailable Staci Burnette Unavailable Dr. Cathleen Lopez Referring Unavailable John, Dr. Connolly Attending Unavailable Javon, Dr. Erich Reed Primary Care See Lopez, Dr. Connolly Attending Unavailable Javon, Dr. Erich Reed Primary Care See Lopez, Dr. Connolly Referring Unavailable Jonh, Dr. Connolly Attending Unavailable Javon, Dr. Erich [...] Unavailable Erich Alejandro DO Primary Care Provider Terri DAUGHERTY, Javier Claros Admit Provider Mateusz Arellano MD Other Provider Harris DAUGHERTY, Angelo Jason Other Provider [phone] [place] Caraballo MD Attending Provider Harris DAUGHERTY, Angelo Jason Attending Provider INPATIENT, TELENEUROLOGY Consulting Unavail able Erich Alejandro DO Primary Care Provider Terri DAUGHERTY, Javier Claros Admit Provider Mateusz Arellano MD Other Provider Angelo Iglesias MD Other Provider [place] Caraballo MD Attending Provider Angelo Iglesias MD Attending Provider Angelo Iglesias Admitting Unavailabl e Angelo Iglesias Attending Unavailabl Erich Gavin Primary Care Unavailable Angelo Iglesias Admitting Unavailabl e Angelo Iglesias Attending Unavailabl e [place] Caraballo Referring Unavailab le Erich Alejandro Primary Care Unavailable Javier Murray M Admitting Unavailable Erich Alejandro Primary Care Unavailable Mateusz Arellano Consulting Unavailable [place] Caraballo Attending Unavailab le Angelo Iglesias Consulting Unavailboom Caraballo MD, West Grijalva Referring Provider Javon CRISTINA Erich Primary Care Provider [phone] Harris DAUGHERTY, Angelo Jason Attending Provider Javon CRISTINA Erich Primary Care Provider [phone] Staci Burnette MD Attending Provider Javon CRISTINAErich Attending Provider [phone] Carlos A BAEZ Attending Unavailable Carlos A BAEZ Attending Unavailable Sobeida Medina Attending Unavailable Carlos A BAEZ Attending Unavailable Javon CRISTINA Erich Primary Care Provider Erich Alejandro DO Attending Provider Staci Burnette MD Attending Provider Jose Antonio DE LA CRUZ-SHELL CORE AND MOLDING SUPERVISOR-CGracia Attending Provider Allergies Allergy Classification Reported Allergen(s) Allergy Type Date of Onset Reaction(s) Facility (19 sources) Angiotensin Converting Enzyme (Linda) Inhibitors; Translations: [Linda Inhibitors] Allergy to substance 08-18-20 17 [facility] (20 sources) Acetaminophen Drug Allergy 11-06-19 24 [facility] (1 source) Acetaminophen Drug Allergy [facility] (1 source) patient allergy list reviewed by nurse or physicia Propensity to adverse reactions 07-11-20 18 Comment:Done Hupu Other (1 source) Acetaminophen; Translations: [Tylenol] Drug Allergy [facility] Repository Medications Current Medications Medication Drug [...] DO Active take 2 tablets by mo [facility] every eight hours as needed for [...] Not-Taking ascorbic acid 500 mg oral tablet (20 sources) Vitamin C Start: 04-15-2024 ASCORBIC ACID PO 500 mg 04/15/2024 Active Start: 04-15-2024 ascorbic acid 500 mg Start Date: 04/15/24 Status: Ordered Repeat number: 1 Start: 04-15-2024 ascorbic acid 500 mg Start Date: 04/15/24 Status: Ordered Start: 02-20-2024 take 1 tablet by mouth once da daren Ascorbic Acid (Vitamin C) 500 mg tablet,chewable Active 500 MG PO Daily February 20, 2024 12:00am Complies with drug therapy aspirin 81 mg delayed release oral tablet (20 sources) Platelet Aggregation Inhibitor, Nonsteroidal Anti-inflammatory Drug Start: 09-10-2022 take 1 tablet by mouth once daily aspirin 81 mg Oral EC Tab 81 mg = 1 tab(s), Oral, Daily, Refills(s) 0 Start Date: 09/10/22 Status: Ordered Repeat number: 1 Start: 02-19-2018 take 1 tablet by mouth once da daren Aspirin 81 mg Tablet Active 81 MG PO Daily September 04, 2022 1:00am Complies with drug therapy Start: 02-19-2018 take 1 tablet by krunal every twenty-four hours Aspirin 81 81 MG 1 tablet Orally Once a day Jan, Active Start: 02-19-2018 betamethasone 0.5 mg/ml / clotrimazole 10 mg/ml topical cream (13 sources) Azole Antifungal, Corticosteroid Start: 05-29-2024 Clotrimazole-Betamethasone 1-0.05 % cream Active 1 APPLIC TOPICAL Twice daily 45 May 29, 2024 12:00am Complies with drug therapy Blood-Glucose Meter (Freestyle Lite Meter) kit (15 sources) Start: 01-09-2024 Blood-Glucose Meter (Freesty le Lite Meter) kit Active 0 .Route January 08, 2024 11:00pm to check blood sugar daily Start: 01-09-2024 Blood-Glucose Meter (Freestyle Lite Meter) kit Active 0 .Route January 09, 2024 12:00am to check blood sugar daily Centrum Silver (1 source) Start: 12-11-2024 Centrum Silver Oral, Daily Start Date: 12/11/24 Status: Ordered Repeat number: 1 Centrum Silver 50+Men - (16 sources) Centrum Silver 5 0+Men - as directed Orally Active cephalexin 500 mg oral tablet (6 sources) Cephalosporin Antibacterial Start: 01-21-2025 take 1 tablet by mouth three times daily Cephalexin 500 mg tablet Active 500 MG PO Three times daily 14 01January 21, 2025 12:00am Complies with drug therapy Start: 2023 take 1 capsule by mo [facility] every eight hours Cephalexin 500 MG 1 capsule Orally tid for 14 days Sep, Active Cholecalciferol (20 sources) Vitamin D Start: 04-15-2024 CHOLECALCIFERO L PO 10 mcg 04/15/2024 Active Start: 04-15-2024 cholecalcifero l 10 mcg Start Date: 04/15/24 Status: Ordered Repeat number: 1 Start: 04-15-2024 cholecalcifero l 10 mcg Start Date: 04/15/24 Status: Ordered Start: 09-04-2022 take 1 tablet by krunal once daily Cholecalciferol (Vitamin D3) 10 mcg (400 unit) Tablet Active 10 MCG PO Daily September 04, 2022 1:00am Complies with drug therapy take 1 capsule by mo uth every twenty-four hours Vitamin D3 25 MCG [...] 09-08-2022 Fluticasone Propionate (Flon ase) 50 mcg/actuation Vesper,Suspension Discontinued 1 SPRAY INTRANASAL Daily as needed [...] 0 Refills: 0 Ordered: 12-Nov-2022 DO Active hyoscyamine sulfate 0.12 mg / methenamine 118 mg / methylene blue 10 mg / phenyl salicylate 36 mg / sodium phosphate, monobasic 40.8 mg oral capsule (1 source) Oxidation-Reduction Agent Start: 04-07-2025 Uribel oral capsule 1 cap(s), Oral, Daily, 40 caplet(s), Refill(s) 1, [facility]/pharmacy #[id number], 180, cm, 04/07/25 10:35:00 EDT, Height/Length Dosing, 110.5, kg, 04/07/25 10:35:00 EDT, Weight Dosing Start Date: 04/07/25 Status: Ordered Quantity: 40.0 Unit: caplet(s) Repeat number: 2 lisinopril 20 mg oral tablet (20 sources) Angiotensin Converting Enzyme Inhibitor Start: 07-20-2024 End: 11-18-2024 take 10 mg by mouth twice daily Lisinopril 20 mg tablet Active 10 MG PO Twice daily November 18, 2024 5:05pm Complies with drug therapy Start: 01-29-2024 lisinopril 20 mg Tab Refills(s) 0 Start Date: 01/29/24 Status: Ordered Repeat number: 1 Start: 11-11-2023 End: 07-20-2024 take 1 tablet [...] day(s), # 30 tab(s), Refills(s) 0, Pharmacy: [facility]/pharmacy #[id number], 180, cm, 08/07/21 10:07:00 EST, Height/Length [...] mirabegron 50 mg extended release oral tablet (20 sources) beta3-Adrenergic Agonist Start: 03-08-2025 take 1 tablet by mouth once daily Myrbetriq 50 mg oral tablet, extended release 50 mg = 1 tab(s), Oral, Daily, # 90 tab(s), Refills(s) 3, Pharmacy: [facility]/pharmacy #[id number], 180, cm, 04/15/24 13:22:00 EDT, Height/Length Dosing, 108, kg, 04/15/24 13:22:00 EDT, Weight Dosing Start Date: 03/08/25 Status: Ordered Quantity: 90.0 Unit: tab(s) Repeat number: 4 Start: 01-29-2024 End: 02-20-2024 take 1 tablet by mouth once daily Mirabegron 50 mg tablet extended release 24 hr Discontinued 50 MG PO Daily February 05, 2024 12:00am February 20, 2024 2:47pm Ql-Akh-Vfbiz-X8-Wvawqjz-Mfqe in (Centrum Silver Men) 109-60-758-300 mcg tablet (16 sources) Start: 11-05-2023 take 1 tablet by mouth once daily Lm-Mjn-Xpkkj-P8-Pnezetu-Iwbhby (Centrum Silver Men) [id number] mcg tablet Active 1 TAB PO Daily November 05, 2023 1:00am Complies with drug therapy Start: 11-05-2023 take 1 tablet by mouth once da daren Start: 11-05-2023 take 1 tablet by mouth once da daren Us-Epg-Izxfu-A1-Dwsyxzu-Dtlqyf (Centrum Silver Men) [id number] mcg tablet Active 1 TAB PO Daily November 05, 2023 12:00am Start: 11-05-2023 take 1 tablet by mouth once da daren Cc-Wkt-Dcnto-H3-Xgzkeks-Yvafkq (Centrum Silver Men) [phone] mcg tablet Active 1 TAB PO Daily November 05, 2023 1:00am oxybutynin chloride 5 mg oral tablet (20 sources) Cholinergic Muscarinic Antagonist Start: 04-15-2024 take 1 tablet by mouth at bedtime oxybutynin 5 mg Tab 5 mg = 1 tab(s), Oral, Bedtime, Take 30 min prior to bedtime., # 30 tab(s), Refills(s) 11, Pharmacy: [facility]/pharmacy #[id number], 180, cm, 04/15/24 13:22:00 EDT, Height/Length Dosing, [...] Start: 03-26-2024 take 1 tablet by krunal once daily Potassium Chloride 10 mEq tablet extended release Active 0 .ROUTE .COMPLEX March 26, 2024 11:38am TAKE 1 TABLET BY MOUTH EVERY DAY Complies with drug therapy Start: 11-05-2023 End: 03-26-2024 take 1 tablet by mouth once daily Potassium Chloride 10 mEq tablet extended release Discontinued 10 MEQ PO Daily November 05, 2023 1:00am March 26, 2024 11:38am Start: 09-25-2022 take 1 tablet by krunal th every twenty-four hours Klor-Con 10 10 MEQ 1 Tablet Orally daily for 30 day(s) Sep, Active Start: 09-08-2022 End: 11-05-2023 take 1 tablet by mouth once daily Potassium Chloride 15 mEq tablet,ER particles/crystals Discontinued 15 MEQ PO Daily September 08, 2022 1:00am November 05, 2023 12:26pm predniSONE 20 mg oral tablet (20 sources) Start: 12-14-2024 take 1 tablet by mouth twice daily, then take 1 tablet by mouth once daily Prednisone 20 mg tablet Active 0 PO As Directed 16 06December 14, 2024 12:00am 1 tablet PO bid w/ food x 5 days then 1 tablet qd w/ food x 5 days. Complies with drug therapy Start: 09-08-2022 End: 11-05-2023 take 1 tablet [...] ic - as directed Orally Active Semaglutide (20 sources) Start: 10-15-2024 inject 0.25 mg by subcutaneous injection every week, then inject 0.5 mg by subcutaneous injection every week Semaglutide (Ozempic) 0.25 mg or 0.5 mg (2 mg/3 mL) pen injector Active 0 .ROUTE .COMPLEX October 15, 2024 8:00am INJECT 0.25 MG SUBCUTANEOUSLY WEEKLY FOR 4 WEEKS, THEN 0.5 MG WEEKLY THEREAFTER Complies with drug therapy Start: 10-15-2024 inject 0.25 mg by chisholm bcutaneous injection every week, then inject 0.5 mg by subcutaneous injection every week Start: 10-15-2024 inject 0.25 mg by chisholm [...] pen injector Active 0 SUBCUT every week April 08, 2024 11:00pm 0.25mg SC for 4 weeks, then increase to 0.5mg weekly Start: 04-09-2024 inject 0.25 mg by chisholm bcutaneous injection every week, then inject 0.5 mg by subcutaneous injection every week Semaglutide (Ozempic) 0.25 mg or 0.5 mg (2 mg/3 mL) pen injector Active 0 SUBCUT every week April 09, 2024 12:00am 0.25mg SC for 4 weeks, then increase to 0.5mg weekly Ozempic (1 source) Start: 12-11-2024 Ozempic SubCutaneous Start Date: 12/11/24 Status: Ordered Repeat number: 1 Semaglutide,0.25 or 0.5MG/DOS, 2 MG/3ML solution pen-injector (5 sources) Start: 04-09-2024 Semaglutide,0. 25 or 0.5MG/DOS, 2 MG/3ML solution pen-injector every week 04/09/2024 Active Symbicort 160/4.5 inhalation aerosol with adapter (5 sources) Start: 09-10-2022 take 2 puff(s) by inhalation twice daily Symbicort 160/4.5 inhalation aerosol with adapter 2 puff(s), Inhalation, BID, Refill(s) 0 Start Date: 09/10/22 Status: Ordered tamsulosin hydrochloride 0.4 mg oral capsule (20 sources) alpha-Adrenerg ic David Start: 10-26-2023 End: 11-18-2024 take 1 capsule by mouth once daily in the evening Tamsulosin 0.4 mg capsule Active 0 .ROUTE .COMPLEX 90 November 18, 2024 5:04pm TAKE 1 CAPSULE BY MOUTH EVERY EVENING Complies with drug therapy Start: 05-08-2021 End: 10-26-2023 take 1 capsule [...] 1 capsule by inhalation once daily Tiotropium [place] (Spiriva With Handihaler) 18 mcg capsule, w/inhalation device Discontinued 1 CAP INHALATION Daily September 08, 2022 1:00am November 05, 2023 12:28pm puncture 1 cap using device; one dose = 2 inhalations torsemide 10 mg oral tablet (20 sources) Loop Diuretic Start: 02-14-2025 take 2 tablets by mouth once daily Torsemide 10 mg tablet Active 0 .ROUTE .COMPLEX 180 February 14, 2025 3:00pm TAKE 2 TABLETS BY MOUTH DAILY Complies with drug therapy Start: 11-05-2023 End: 10-14-2024 take 2 tablets [...] mouth Daily 06/17/2023 Active Start: 09-08-2022 End: 02-14-2025 take 1 tablet by mouth once daily Torsemide 10 mg Tablet Discontinued 10 MG PO DAILY@0800 30 October 14, 2024 1:00am February 14, 2025 3:01pm Torsemide 10 MG 2 Orally daily Active triamcinolone acetonide 0.001 mg/mg topical ointment (4 sources) Corticosteroid Start: 12-14-2024 Triamcinolone Acetonide 0.1 % ointment Active 1 APPLIC TOPICAL Twice daily 454 December 14, 2024 12:00am Complies with drug therapy Start: 12-14-2024 Triamcinolone Acetonide 0.1 % ointment Active 1 APPLIC TOPICAL Twice daily 454 December 14, 2024 12:00am trospium chloride 20 mg oral tablet (1 source) Cholinergic Muscarinic Antagonist Start: 12-11-2024 take 1 tablet by mouth at bedtime trospium 20 mg oral tablet 20 mg = 1 tab(s), Oral, Bedtime, # 30 tab(s), Refills(s) 11, Pharmacy: [facility]/pharmacy #[id number], 180, cm, 04/15/24 13:22:00 EDT, Height/Length Dosing, 108, kg, 04/15/24 13:22:00 EDT, Weight Dosing Start Date: 12/11/24 Status: Ordered Quantity: 30.0 Unit: tab(s) Repeat number: 12 Vitamin D3 25 MCG (1000 UT) (20 sources) take 1 capsule by mouth once len ly Vitamin D3 25 MCG (1000 UT) 1 capsule Orally Once a day Active Completed/Discontinued Medications Medication Drug Class(es) Dates Sig (Normalized) Sig (Original) albuterol 0.833 mg/ml / ipratropium bromide 0.167 mg/ml inhalation solution (17 sources) Anticholinergic, beta2-Adrenergic Agonist Start: 09-08-2022 End: [...] Until follow-up with your primary care physician Complies with drug therapy Start: 03-31-2024 End: 07-20-2024 take 1 tablet by mouth once daily Amlodipine 10 mg tablet Discontinued 0 .ROUTE .COMPLEX March 31, 2024 8:47am July 20, 2024 5:53pm TAKE 1 TABLET BY MOUTH EVERY DAY Start: 02-20-2024 End: 03-31-2024 take 5 mg by mouth once daily Amlodipine 10 mg tablet Discontinued 5 MG PO Daily 0 February 20, 2024 2:43pm March 31, 2024 8:47am Start: 02-20-2024 End: 03-31-2024 take 5 mg by mouth once daily Amlodipine Discontinued 5 MG PO Daily 0 February 20, 2024 2:43pm March 31, 2024 8:47am Start: 09-08-2022 End: 02-20-2024 take 1 tablet by mouth once daily Amlodipine 10 mg Tablet Discontinued 10 MG PO Daily September 08, 2022 1:00am February 20, 2024 2:55pm take 1 tablet by krunal th once daily Norvasc 5 MG Oral Tablet Take 1 tablet daily Quantity: 0 Refills: 0 Ordered: 11-Mar-2023 DO Active amoxicillin 875 mg / clavulanate 125 mg oral tablet (17 sources) Penicillin-class Antibacterial Start: 09-08-2022 End: 11-05-2023 [...] m 5 mg/ml ophthalmic solution (20 sources) Start: 11-05-2023 End: 02-20-2024 Carboxymethylcellulose [...] Active Carboxymethylcellulose Sodiu m 0.5 % dropperette (9 sources) Start: 11-05-2023 End: 02-20-2024 Carboxymethylcellulose Sodiu [...] D/C Amlodipine celecoxib 100 mg oral capsule (17 sources) Nonsteroidal Anti-inflammatory Drug Start: 09-04-2022 End: [...] Active doxycycline hyclate 100 mg oral tablet (17 sources) Tetracycline-class Drug Start: 09-08-2022 End: 11-05-2023 take 1 tablet by mouth every twelve hours Doxycycline Hyclate 100 mg Tablet Discontinued 100 MG PO Q12H 10 5 September 08, 2022 1:00am November 05, 2023 12:22pm empagliflozin 10 mg oral tablet (20 sources) Sodium-Glucose Cotransporter 2 Inhibitor Start: 02-05-2024 [...] DO Active glucose 0.4 mg/mg oral gel (17 sources) Start: 09-08-2022 End: 02-20-2024 Dextrose (Glutose-15) 40 % Gel Discontinued 0.6 GM PO PRN as needed for Hypoglycemia 0 September 08, 2022 1:00am February 20, 2024 2:44pm 12 hr guaiFENesin 600 mg extended release oral tablet (17 sources) Start: 09-08-2022 End: 11-05-2023 take 1 [...] dose SUBCUT 3X/Day with meals and bedtime September 08, 2022 12:00am Start: 09-08-2022 inject 5 [IU] by sub cutaneous injection once before mealtime Insulin Aspart U-100 (Novolog Flexpen U-100 Insulin) 100 unit/mL (3 mL) Insulin Pen Active 5 UNITS SUBCUT 3x/Day before meals 0 September 08, 2022 12:00am 3 ml insulin aspart, human 100 unt/ml pen injector (5 sources) Insulin Analog Start: 09-10-2022 NovoLOG FlexPe n 100 units/mL injectable solution 5 unit(s), SubCutaneous, TIDAC, plus 150-199 3, 200-249 4, 250-299 7, 300-349 10, 350-399 12, 400-449 14, >450 20, Refills(s) 0 Start Date: 09/10/22 Status: Ordered Start: 09-08-2022 End: 02-20-2024 inject 1 dose by subcutaneous injection once at mealtime Insulin Aspart U-100 (Novolog Flexpen U-100 Insulin) 100 unit/mL (3 mL) Insulin Pen Discontinued 1 sliding scale dose SUBCUT 3X/Day with meals and bedtime 0 September 08, 2022 1:00am February 20, 2024 2:45pm Start: 09-08-2022 End: 11-05-2023 inject 5 [IU] by subcutaneous injection once before mealtime Insulin Aspart U-100 (Novolog Flexpen U-100 Insulin) 100 unit/mL (3 mL) Insulin Pen Discontinued 5 UNITS SUBCUT 3x/Day before meals 0 September 08, 2022 1:00am November 05, 2023 12:29pm 3 ml insulin glargine 100 unt/ml pen injector (20 sources) Insulin Analog Start: 11-05-2023 End: 11-18-2024 Insulin Glargine (Lantus Solostar U-100 Insulin) 100 unit/mL (3 mL) insulin pen Discontinued 20 UNIT SUBCUT Daily 15 30 November 18, 2024 5:26pm November 18, 2024 5:28pm Start: 09-10-2022 Lantus Solosta r Pen 100 units/mL subcutaneous solution 20 unit(s), SubCutaneous, Daily, Refills(s) 0 Start Date: 09/10/22 Status: Ordered Repeat number: 1 Start: 09-08-2022 End: 11-05-2023 Insulin Glargine (Lantus [...] Combination No.4 (Probiotic) 3 billion cell capsule (17 sources) Start: 09-08-2022 End: 02-20-2024 take 3 [...] Active Potassium Chloride 15 mEq tablet,ER particles/crystals (9 sources) Start: 09-08-2022 End: 11-05-2023 take 1 tablet by mouth once daily Potassium Chloride 15 mEq tablet,ER particles/crystals Discontinued 15 MEQ PO Daily September 08, 2022 1:00am November 05, 2023 12:26pm Start: 09-08-2022 End: 11-05-2023 take 1 tablet by mouth once daily Potassium Chloride 15 mEq tablet,ER particles/crystals Discontinued 15 MEQ PO Daily September 08, 2022 12:00am November 05, 2023 11:26am tiZANidine 2 mg oral tablet (20 sources) Central alpha-2 Adrenergic Agonist Start: 01-29-2024 tiZANidine 2 mg Tab Refills(s) 0 Start Date: 01/29/24 Status: Ordered Repeat number: 1 Start: 12-13-2023 End: 12-16-2024 take 0.5-1 tablets by mouth once daily at bedtime Tizanidine 2 mg tablet Discontinued 0 .ROUTE .COMPLEX June 02, 2024 7:14am December 16, 2024 1:33pm TAKE 1/2 TO 1 TABLET BY MOUTH EVERY DAY AT BEDTIME Start: 07-04-2023 End: 12-13-2023 take 1 tablet by mouth once daily at bedtime Tizanidine 2 mg tablet Discontinued 2 MG PO Daily at bedtime November 05, 2023 1:00am December 13, 2023 1:56pm Problems Active Problems Problem Classification Problem Date Documented Da te Episodic/Chronic Abdominal pain (20 sources) Abdominal pain; Translations: [Unspecified abdominal pain] Resolved: 0 Episodic Acute and unspecified renal failure (17 sources) Acute kidney failure, unspecified; Translations: [Acute renal failure syndrome] Onset: 3 10-09-2024 Episodic Acute cerebrovascular disease (1 source) Acute cerebrovascular disease Onset: 5 Acute posthemorrhagic anemia (20 sources) Acute posthemorrhagic anemia; Translations: [Acute posthemorrhagic anemia] Episodic Administrative/social admission (19 sources) Counseling procedure with explicit context; Translations: [...] Phys. EHR Cmte Coagulation and hemorrhagic disorders (18 sources) Thrombocytopenic disorder; Translations: [Thrombocytopenia, unspecified] 04-07-2024 [...] defect - 09/2022 Deficiency and other anemia (6 sources) Anemia due to blood loss 09-10-2022 Chronic Deficiency and other anemia (20 sources) Anemia due to chronic blood loss; Translations: [Iron deficiency anemia secondary to blood loss (chronic)] Chronic Deficiency and other anemia (12 sources) Pancytopenia; Translations: [Other pancytopenia] 10-11-2024 Chronic Deficiency and other anemia (19 sources) Other pancytopenia; Translations: [Other pancytopenia] Onset: 5 10-14-2024 Chronic Deficiency and other anemia (20 sources) Pernicious anemia; Translations: [Vitamin B12 deficiency anemia due to intrinsic factor deficiency] 11-06-2023 Episodic Deficiency and other anemia (20 sources) Vitamin B12 deficiency anemia due to intrinsic factor deficiency; Translations: [Pernicious anemia] Onset: 2 Episodic Deficiency and other anemia (15 sources) Anemia; Translations: [Anemia, unspecified] 01-05-2024 Episodic [...] 09-10-2022 Episodic Genitourinary symptoms and ill-defined conditions (13 sources) Urge incontinence; Translations: [Urge incontinence of [...] headache; Translations: [Occipital headache] Chronic Noninfectious gastroenteritis (16 sources) Gastroenteritis; Translations: [Noninfective gastroenteritis and colitis, unspecified] Onset: 5 10-09-2024 Episodic Nutritional deficiencies (20 sources) Vitamin D deficiency; Translations: [Vitamin D deficiency, unspecified] Onset: 2 Chronic Nutritional deficiencies (4 sources) Deficiency of other specified B group vitamins; Translations: [Other B-complex deficiencies] 05-26-2024 Episodic Other aftercare (20 sources) Long-term current use of insulin; Translations: [paleontological helper (current) use of insulin] Episodic Other aftercare (20 sources) H/O: high risk medication; Translations: [Other reading assistant (current) drug therapy] Episodic Other aftercare (1 source) Other care home (current) drug therapy; Translations: [OTH CHEMICAL ENGINEER CURRENT DRUG THERAPY] Onset: 3 Episodic Other aftercare (1 source) [facility] (current) use of aspirin; Translations: [CORRECTION CURRENT USE OF ASPIRIN] Onset: 3 Episodic Other aftercare (1 source) paleontological helper (current) use of oral hypoglycemic drugs; Translations: [CHEMICAL ENGINEER USE ORAL HYPOGLYCEMIC DX] Onset: 3 Episodic Other aftercare (5 sources) Post-discharge follow-up; Translations: [Other follow-up examination] Episodic Other aftercare (3 sources) [facility] (current) use of insulin Episodic Other aftercare (6 sources) Long-term current use of drug therapy; Translations: [Other reading assistant (current) drug therapy] Episodic Other connective tissue disease (20 sources) Other symptoms and signs involving the nervous system; Translations: [Suspected sleep apnea] Episodic Other connective tissue disease (1 source) Achilles tendinitis, right leg Episodic Other diseases of bladder and urethra (3 sources) Detrusor overactivity; Translations: [Overactive bladder] Onset: 4 Chronic Other diseases of bladder and urethra (3 sources) Overactive bladder 01-29-2024 Chronic Other diseases of veins and lymphatics (20 sources) Peripheral venous insufficiency; Translations: [Venous insufficiency (chronic) (peripheral)] Episodic Other diseases of veins and lymphatics (19 sources) Venous insufficiency (chronic) (peripheral); Translations: [Venous (peripheral) insufficiency, unspecified] Episodic Other diseases of veins and lymphatics (18 sources) Venous insufficiency of leg; Translations: [Venous insufficiency (chronic) (peripheral)] 11-03-2023 Episodic Other ear and sense organ disorders (20 sources) Impacted cerumen; Translations: [Impacted cerumen, right ear] Onset: 9 Resolved: 0 Episodic Other gastrointestinal disorders (20 sources) Flatulence, eructation and gas pain; Translations: [Abdominal distension (gaseous)] Episodic Other gastrointestinal disorders (9 sources) Diarrhea; Translations: [Diarrhea, unspecified] 10-09-2024 Episodic Other gastrointestinal disorders (7 sources) Diarrhea, unspecified; Translations: [Diarrhea] Onset: 5 10-14-2024 Episodic Other hematologic conditions (20 sources) Raised cardiac enzyme or marker; Translations: [...] of falling] Episodic Other lower respiratory disease (17 sources) Computed tomography result abnormal; Translations: [Other [...] on feet] Episodic Other nervous system disorders (20 sources) General unsteadiness; Translations: [Unsteadiness on feet] [...] Episodic Other nutritional; endocrine; and metabolic disorders (12 sources) Simple obesity ; Translations: [Other obesity due to excess calories] Resolved: 0 05-01-2021 Chronic Other nutritional; endocrine; and metabolic disorders (20 sources) Obese class I; Translations: [Body mass index (BMI) 34.0-34.9, adult] Onset: 8 Chronic Other nutritional; endocrine; and metabolic disorders (20 sources) Obesity; Translations: [Obesity, unspecified] 01-21-2025 Chronic Other skin disorders (4 sources) Vesicular eczema; Translations: [Dyshidrosis [pompholyx]] 12-14-2024 Episodic Other skin disorders (1 source) Dyshidrosis [pompholyx]; Translations: [Dyshidrosis] 12-14-2024 Episodic Pneumonia (except that caused by tuberculosis or sexually transmitted disease) (20 sources) Pneumonia; Translations: [Pneumonia, unspecified organism] Onset: 3 Episodic Comment on above: Problem List clean-u p per request of Phys. EHR Cmte Residual codes; unclassified (18 sources) Obstructive sleep apnea syndrome; Translations: [Obstructive sleep apnea (adult) (pediatric)] 11-03-2023 Chronic Residual codes; unclassified (20 sources) Obstructive sleep apnea (adult) (pediatric); Translations: [Obstructive sleep apnea (adult)(pediatric)] Onset: 5 03-06-2024 Chronic Residual codes; unclassified (8 sources) Daytime somnolence; Translations: [Other hypersomnia] Onset: 4 12-31-2023 Chronic Residual codes; unclassified (1 source) Disorientated; Translations: [Disorientation, unspecified] Onset: 3 Episodic Residual codes; unclassified (1 source) Edema; Translations: [Edema, unspecified] Onset: 3 Episodic Residual codes; unclassified (6 sources) Delirium 09-10-2022 Episodic Residual codes; unclassified (6 sources) Dependent edema 09-10-2022 Episodic Residual codes; unclassified (17 sources) Tobacco user; Translations: [Tobacco use] 09-08-2022 Episodic Comment on above: Problem List clean-u p per request of Phys. EHR Cmte Residual codes; unclassified (2 sources) Edema of lower extremity; Translations: [Edema] Episodic Residual codes; unclassified (1 source) Pain, unspecified; Translations: [Pain, unspecified] Onset: 5 Episodic Respiratory failure; insufficiency; arrest (adult) (18 sources) Acute respiratory failure; Translations: [Acute respiratory failure with hypoxia] 09-04-2022 Episodic Comment on above: Problem List clean-u p per request of Phys. EHR Cmte Septicemia (except in labor) (17 sources) Sepsis, unspecified organism; Translations: [Sepsis] Onset: 3 10-09-2024 Episodic Shock (16 sources) Hypovolemic shock; Translations: [Hypovolemic shock] Onset: 5 10-09-2024 Episodic Skin and subcutaneous tissue infections (20 sources) Carbuncle of buttock; Translations: [Carbuncle of buttock] Episodic Spondylosis; intervertebral disc disorders; other back problems (20 sources) Lumbar spondylosis; Translations: [Spondylosis without myelopathy or radiculopathy, lumbar region] Onset: 8 12-23-2020 Chronic Substance-related disorders (20 sources) Nicotine dependence; Translations: [Nicotine dependence, cigarettes, uncomplicated] Onset: 8 Chronic Syncope (16 sources) Syncope; Translations: [Syncope and collapse] Onset: 5 10-09-2024 Episodic Unclassified (6 sources) Asymptomatic microscopic hematuria 12-27-2020 Unclassified (6 sources) 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..] mEq oral tablet, extended release) semaglutide (Ozempic) tizanidine (tiZANidine 2 mg Tab) torsemide (torsemide 10 mg Tab) Procedures Performed ORIF - Open reduction and internal fixation of fracture (05/01/2021), Left arm (04/28/2021), Cystourethroscopy with dilation of urethral stricture (01/12/2021), TURP - Transurethral resection of prostate (2014), Complete resection of colon, Tonsillectomy. Discharge Vitals Heart Rate (Peripheral) 77 Blood Pressure 160/89 Height 71 in Height 180 cm Weight 243.611 lb Weight 110.5 kg BMI 34.1 What to do next Scheduled Follow-Up Appointments Saturday 2:00 PM EST With: Carlos A BAEZ MD Where: [facility] [address], [address] [place] [address]- You Need to Schedule the Following Appointments Follow Up with LORRAINE DAUGHERTY, Carlos A Hamilton, JOSE CARLOS When: Where: [address] [facility] [address] [place] [address]- Medications What How Much When Instructions New hyoscyamine/ methena/ mblue/ phenylsal/ sodbiphos (Uribel oral capsule) 1 Capsules By Mouth Every day Refills: 1 Pickup at [facility]/pharmacy #[id number] Unchanged mirabegron (Myrbetriq 50 mg oral tablet, extended release) 1 Tablets By Mouth Every day Unchanged trospium (trospium 20 mg oral tablet) 1 Tablets By Mouth At bedtime Unchanged amlodipine (amLODIPine 10 mg Tab) Contact [...] physician if questions or concerns Pharmacy Information [facility]/pharmacy #[id number]: [address], [place] [phone] Allergies No Known Allergies Problems Ongoing - [...] initial encounter for closed fracture Anemia, blood (more content not included)... Normal [facility] Urology Office/Clinic Noteon 04-07-2025 Urology Office/Clinic Note Urology Office/Clinic Note Chief Complaint follow up HPI Staff 84 year old male here for 4 month follow up to starting Trospium 20mg qhs Previous Dx: OAB, bph with luts, Micro hematuria states patient is still taking Myrbetriq 50mg qd, has not noticed any changes in urination since starting trospium Patient denies any dysuria or gross hematuria. Denies any flank or abdomen pain. Severe urgency. History of Present Illness Tests reviewed: reviewed UA. I have reviewed the previous health record information and history for this patient from Dr. Baez I have reviewed and verified the staff HPI to be accurate for this encounter. Review of Systems PHQ Score Initial [...] no anxiety. Genitourinary: See HPI. Physical Exam Vitals & Measurements HR: 77(Peripheral) BP: 160/89 HT: 71 in HT: 180 cm WT: 110.5 kg WT: 243.611 lb BMI: 34.1 General Appearance: alert, no distress, well nourished, well developed male. Assessment/Plan RICHY 16 Portions of this record may have been created with voice recognition artificial intelligence software, specifically [employer], [employer] and or [employer]. Substitutions may have occurred due to the inherent limitations of voice recognition and artificial intelligence software. 1. OAB (overactive bladder) (N32.81: Overactive bladder) PVR (cc) 01/29/24 - 04/15/24 - 0 12/11/24 - 0 Pt had drastically decreased coffee intake from 10-12 c daily, down to 1-2 c daily. Pt states he is drinking more than 1-2 cups now but hasn't noticed a worsening in symptoms. Pt was previously started on oxybutynin 5 mg qhs to optimize bladder control at night. Had no improvement. Oxybutynin was d/c at last visit and pt was started on Trospium 20 mg qd. Pt states he is taking Trospium 20 mg qd and Myrbetriq 50 mg ER qd. Discussed starting Uribel to see if pt notices improvement. Directed pt to stop Trospium if he starts Uribel. Still encouraged pt to decrease coffee intake. states he drinks orange juice occasionally. -Start Uribel #40, coupon provided, pt to d/c Trospium if he starts Uribel -F/up in 4 mos 2. 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 prostatic hyperplasia with lower urinary tract symptoms) S/p TURP [address] Carrasquillo. IPSS 12 (13) Pt states he has not taken Flomax in quite sometime. See #1. 3. Asymptomatic microscopic hematuria (R31.21: Asymptomatic microscopic hematuria) FISH/cytol 12/29/20 neg. S/p cysto/UD 01/12/21. UA today negative for blood or infection. Denies gross hematuria. Pt knows to call our office with visible blood in urine. Patient is here with his . He still has overactivity of the bladder with especially urgency and frequency and nocturia. He has tried several anticholinergics and is actually on a combination of a beta 3 agonist and anticholinergic and still has symptomatology. Will now try a medication like Uribel. He knows this can stain be due to the methylene blue. He should stop the trospium while taking the Uribel. I again gave him the bladder irritants sheet. This has been an overall difficult frustrating situation as even the new list of medications is not helping his symptomatology. He is back drinking as much coffee as he wants because he tried to nearly discontinue it and the symptoms did not improve. Considering a second opinion at this point but will try the Uribel. Prescription sent. Tentative 4-month follow-up. Follow-up With When Contact Information LORRAINE DAUGHERTY, Carlos A Hamilton, URL [address] [place] [id number]- Additional Instructions: 4 mos Patient Education Overactive Bladder, Adult I, Alisson Saeed, personally scribed for Dr. Baez on 04/07/2025 10:50:39. . Documentation recorded by the scribeAlisson, accurately reflects the services(s) I performed and decisions made by me. Authenticated by Dr. Baez on 04/07/2025 10:51:22. Problem List/Past Medical History Ongoing Asymptomatic microscopic hematuria BPH with urinary obstruction Cigarette smoker COPD type B Delirium Dependent edema Diverticulosis of colon DM2 (diabetes mellitus, type 2) Essential hypertension Frequency of urination and polyuria Hypertension Lumbar spondylosis Mixed hyperlipidemia OAB (overactive bladder) Obesity due to excess calories Pneumonia Radial nerve palsy Urge incontinence Urinary frequency Urinary (more content not included)... Normal [facility] Comment on above: Result Comment: Elec tronically Signed By: Carlos A BAEZ MD\.br\Date and Time Signed: 04/07/25 10:52 EDT\.br\Electronically Co-Signed By: Alisson Saeed.br\Date and Time Co-Signed: 04/07/25 10:50 EDT HbA1c HPLC (Bld) [Mass fract ion]on 01-21-2025 HbA1c (Bld) [Mass fraction] Hemoglobin A1c/Hemoglobin.total in Blood by HPLC [facility] HbA1c (Bld) [Mass fraction] 7.1 % [facility] Basophils/100 WBC Manual cnt (Bld)on 12-17-2024 Basophils/100 WBC (Bld) Basophils/100 le ukocytes in Blood by Manual count Low 0.2-2.0 [facility] Basophils/100 WBC (Bld) 0.0 % Low 0.2-2.0 [facility] Eosinophils/100 WBC Manual c nt (Bld)on 12-17-2024 Eosinophils/100 WBC (Bld) Eosinophils/100 leukocytes in Blood by Manual count Low 0.9-7.0 [facility] Eosinophils/100 WBC (Bld) 0.0 % Low 0.9-7.0 [facility] Erythrocyte distribution wid th Auto (RBC) [Ratio]on 12-17-2024 Erythrocyte distribution width (RBC) [Ratio] Erythrocyte distribution width [Ratio] by Automated count 11.0-15.0 [facility] Erythrocyte distribution width (RBC) [Ratio] 13.0 % 11.0-15.0 [facility] Estimated glomerular filtrat ion rate (GFR) non- Americanon 12-17-2024 GFR/1.73 sq M.predicted among non-blacks MDRD (S/P/Bld) [Vol rate/Area] Estimated glomerular filtration rate (GFR) non- Low >=60 mL/min/1.7 3m 2 [facility] GFR/1.73 sq M.predicted among non-blacks MDRD (S/P/Bld) [Vol rate/Area] 44 mL/min/{1.73_m2} Low >=60 mL/min/1.7 3m 2 [facility] Globulin Calc (S) [Mass/Vol] on 12-17-2024 Globulin (S) [Mass/Vol] Serum globulin m easurement by calculation (mass/volume) [facility] Globulin (S) [Mass/Vol] 2.8 g/dL [facility] Hematocrit Auto (Bld) [Volum e fraction]on 12-17-2024 Hematocrit (Bld) [Volume fraction] Hematocrit [Volume Fraction] of Blood by Automated count Low 42.0-54.0 [facility] Hematocrit (Bld) [Volume fraction] 37.7 % Low 42.0-54.0 [facility] Hemoglobin [Mass/volume] in Bloodon 12-17-2024 Hemoglobin (Bld) [Mass/Vol] Hemoglobin [Mass/volume] in Blood Low 14.0-18.0 [facility] Hemoglobin (Bld) [Mass/Vol] 13.1 g/dL Low 14.0-18.0 [facility] Laboratory - Chemistry and C hemistry - challengeon 12-17-2024 Albumin [Mass/Vol] 3.7 g/dL 3.4-5.0 [facility] ALP [Catalytic activity/Vol] 131 U/L High 46-116 [facility] ALT [Catalytic activity/Vol] 20 U/L 16-63 [facility] AST [Catalytic activity/Vol] 13 U/L Low 15-37 [facility] Bilirubin [Mass/Vol] 0.4 mg/dL 0.2-1.0 [facility] Calcium [Mass/Vol] 8.7 mg/dL 8.5-10.1 [facility] Chloride [Moles/Vol] 102 mmol/L 98-107 [facility] CO2 [Moles/Vol] 27.1 mmol/L 21.0-32.0 [facility] Creatinine [Mass/Vol] 1.52 mg/dL High 0.70-1.30 [facility] GFR/1.73 sq M.predicted MDRD (S/P/Bld) [Vol rate/Area] 53 mL/min/{1.73_m2} Low >=60 mL/min/1.7 3m 2 [facility] Glucose [Mass/Vol] 247 mg/dL High 74-106 [facility] Potassium [Moles/Vol] 4.2 mmol/L 3.5-5.1 [facility] Protein [Mass/Vol] 6.5 g/dL 6.4-8.2 [facility] Sodium [Moles/Vol] 137 mmol/L 136-145 [facility] TSH Qn 1.099 m[IU]/L 0.358-3.74 0 [facility] Urea nitrogen [Mass/Vol] 21.0 mg/dL High 7.0-18.0 [facility] Urea nitrogen/Creatinine [Mass ratio] 13.8 mg/mg [facility] Laboratory - Hematology and Cell countson 12-17-2024 Lymphocytes/100 WBC (Bld) 12.0 % Low 20.5-60.0 [facility] Monocytes/100 WBC (Bld) 3.0 % 1.7-12.0 [facility] Leukocytes [#/volume] correc layton for nucleated erythrocytes in Blood by Automated counon 12-17-2024 WBC corrected for nucl RBC Auto (Bld) [#/Vol] Leukocytes [#/volume] corrected for nucleated erythrocytes in Blood by Automated coun 4.0-11.0 [facility] WBC corrected for nucl RBC Auto (Bld) [#/Vol] 5.1 10 3/uL 4.0-11.0 [facility] MCH Auto (RBC) [Entitic mass ]on 12-17-2024 MCH (RBC) [Entitic mass] MCH [Entitic mass] by Automated count High 25.9-34.0 [facility] MCH (RBC) [Entitic mass] 34.6 pg High 25.9-34.0 [facility] MCHC Auto (RBC) [Mass/Vol]on 12-17-2024 MCHC (RBC) [Mass/Vol] MCHC [Mass/volume] by Automated count 29.9-35.2 [facility] MCHC (RBC) [Mass/Vol] 34.7 g/dL 29.9-35.2 [facility] MCV Auto (RBC) [Entitic vol] on 12-17-2024 MCV (RBC) [Entitic vol] MCV [Entitic vol ume] by Automated count High 80.0-94.0 [facility] MCV (RBC) [Entitic vol] 99.5 fL High 80.0-94.0 [facility] No Panel Informationon 12-17 Absolute Basophils (Manual) 0.00 10 3/uL 0.00-0.10 [facility] Eosinophils # (Manual) 0.00 10 3/uL 0.00-0.70 [facility] Lymphocytes # (Manual) 0.61 10 3/uL Low 1.20-3.80 [facility] Monocytes # (Manual) 0.15 10 3/uL Low 0.30-0.80 [facility] Segmented Neutrophils # (Manual) 4.33 10 3/uL 1.4-6.5 [facility] Platelet mean volume Auto (B ld) [Entitic vol]on 12-17-2024 Platelet mean volume (Bld) [Entitic vol] Platelet mean volume [Entitic volume] in Blood by Automated count Low 9.5-13.5 [facility] Platelet mean volume (Bld) [Entitic vol] 9.2 fL Low 9.5-13.5 [facility] Platelets Auto (Bld) [#/Vol] on 12-17-2024 Platelets (Bld) [#/Vol] Platelets [#/vol ume] in Blood by Automated count Low 150-450 [facility] Platelets (Bld) [#/Vol] 111 10 3/uL Low 150-450 [facility] RBC Auto (Bld) [#/Vol]on RBC (Bld) [#/Vol] Erythrocytes [#/volu me] in Blood by Automated count Low 4.70-6.10 [facility] RBC (Bld) [#/Vol] 3.79 10 6/uL Low 4.70-6.10 [facility] Segmented neutrophils/100 WB C Manual cnt (Bld)on 12-17-2024 Segmented neutrophils/100 WBC (Bld) Manual blood segmented neutrophils/100 leukocytes High 43.0-75.0 [facility] Segmented neutrophils/100 WBC (Bld) 85.0 % High 43.0-75.0 [facility] Serum or plasma albumin/glob ulin mass ratioon 12-17-2024 Albumin/Globulin [Mass ratio] Serum or plasma albumin/globulin mass ratio [facility] Albumin/Globulin [Mass ratio] 1.3 {ratio} [facility] Serum or plasma anion gap de terminationon 12-17-2024 Anion gap [Moles/Vol] Serum or plasma an ion gap determination [facility] Anion gap [Moles/Vol] 12.1 mmol/L [facility] Ambulatory Visit Summaryon 0 12-11-2024 Ambulatory Visit Summary Ambulatory Visit Summary JOSE L AMES :1940 Visit Date:12/11/2024 Ambulatory Visit Instructions Your Diagnosis OAB (overactive bladder) BPH with urinary obstruction Asymptomatic microscopic hematuria Other obstructive and reflux uropathy Your Care Team Attending Physician - JEMAL Medina APRN, Sobeida June Primary Care Physician - ERICH ALEJANDRO DO This Is Your Medications List trospium (trospium [...] Carlos A Hamilton Where: [facility] [address], [address] [place] [id number]- Medications What How Much When Instructions New trospium (trospium 20 mg oral tablet) 1 Tablets By Mouth At bedtime Refills: 11 Pickup at [facility]/pharmacy #[id number] Unchanged amlodipine (amLODIPine 10 mg Tab) Contact [...] physician if questions or concerns Pharmacy Information [facility]/pharmacy #[id number]: [address], [place] [phone] What How Much When Comments Stop Taking [...] for choosing us for your care. Normal [facility] Urology Office/Clinic Noteon 12-11-2024 Urology Office/Clinic Note [...] with voice recognition artificial intelligence software, specifically [employer], [employer] and or [employer]. Substitutions may have occurred due to the [...] SEs -f/u 3-4 mos w/ PVR Ordered: 38898 Measure Post Void residual urine and/or bladder capacity by US- non-imaging Urnls Dip Stick Auto w/o Microscopy POC 00826 2. 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 Normal [facility] Comment on above: Result Comment: Elec tronically Signed By: JEMAL Medina APRN, [place] X\.br\Date and Time Signed: 12/11/24 09:45 EDT Basophils Auto (Bld) [#/Vol] Ordered By: Erich Alejandro on 10-22-2024 Basophils (Bld) [#/Vol] Automated basophil count 0.0-0.2 [facility] Basophils/100 WBC Auto (Bld) Ordered By: Erich Alejandro on 10-22-2024 Basophils/100 WBC (Bld) Automated basophil % . [facility] CT guided bone marrow bx/asp iron 10-22-2024 CT guided bone marrow bx/aspir [facility] [place] [address] CT Scan Report Signed Patient: Jose L Ames MR#: [id number] : 1940 Acct:[id number] Age/Sex: 84 / M ADM Date: 10/22/24 Loc: CT Room: Type: [facility] Attending Dr: Angelo Iglesias MD Copies to: [...] local anesthesia. Utilizing CT guidance, an 11-gauge [employer] biopsy needle was advanced into the right [...] A Jones M.D.10/22/2024 12:44 PM Dictation Location: [place] [address] Transcribed By: [facility] 10/22/24 1244 Dictated By: Jorge A Jones MD 10/22/24 1243 Signed By: 10/22/24 1244 Normal [facility] Complete Blood Count Auto Di ffon 10-22-2024 Basophils (Bld) [#/Vol] 0.0 10*3/uL Normal 0.0-0.2 [facility] Comment on above: Result Comment: PERF ORMED BY: [place] [address] PATHOLOGIST COMPUTER INSTALLATION ENGINEER ALEX SALMERON M.D. Performed By: #### P TT, FIB-C, PT #### [address] Basophils/100 WBC (Bld) 1.1 % Normal . [facility] Comment on above: Performed By: #### P TT, FIB-C, PT #### [address] Eosinophils (Bld) [#/Vol] 0.0 10*3/uL Normal 0.0-0.45 [facility] Comment on above: Performed By: #### P TT, FIB-C, PT #### [address] Eosinophils/100 WBC (Bld) 1.1 % Normal . [facility] Comment on above: Performed By: #### P TT, FIB-C, PT #### [address] Erythrocyte distribution width (RBC) [Ratio] 13.6 % Normal 12.0-14.8 [facility] Comment on above: Performed By: #### P TT, FIB-C, PT #### [address] Hematocrit (Bld) [Volume fraction] 38.8 % Normal 38.8-50.0 [facility] Comment on above: Performed By: #### P TT, FIB-C, PT #### [place] [address] [place] Hemoglobin (Bld) [Mass/Vol] 13.4 g/dL Normal 13.0-17.0 [facility] Comment on above: Performed By: #### P TT, FIB-C, PT #### [address] Lymphocytes (Bld) [#/Vol] 0.5 10*3/uL Low 1.00-4.8 [facility] Comment on above: Performed By: #### P TT, FIB-C, PT #### [address] Lymphocytes/100 WBC (Bld) 15.2 % Normal . [facility] Comment on above: Performed By: #### P TT, FIB-C, PT #### [address] MCH (RBC) [Entitic mass] 33.8 pg Normal 27.5-35.2 [facility] Comment on above: Performed By: #### P TT, FIB-C, PT #### [address] MCV (RBC) [Entitic vol] 97.9 fL Normal 83.5-101 T [facility] Comment on above: Performed By: #### P TT, FIB-C, PT #### [address] Mean Corpuscular HGB Conc 34.5 g/dL Normal 32.5-35.6 [facility] Comment on above: Performed By: #### P TT, FIB-C, PT #### [address] Monocytes (Bld) [#/Vol] 0.5 10*3/uL Normal 0.0-0.8 [facility] Comment on above: Performed By: #### P TT, FIB-C, PT #### [address] Monocytes/100 WBC (Bld) 13.7 % Normal . [facility] Comment on above: Performed By: #### P TT, FIB-C, PT #### [address] Neutrophils (Bld) [#/Vol] 2.3 10*3/uL Normal 1.8-7.7 [facility] Comment on above: Performed By: #### P TT, FIB-C, PT #### [address] [place] [address] [place] Neutrophils/100 WBC (Bld) 68.9 % Normal . [facility] Comment on above: Performed By: #### P TT, FIB-C, PT #### [address] NRBC% 0.1 /100{WBC} Normal 0-0.5 [facility] Comment on above: Performed By: #### P TT, FIB-C, PT #### [address] Platelet mean volume (Bld) [Entitic vol] 8.2 fL Normal 6.6-10.1 [facility] Comment on above: Performed By: #### P TT, FIB-C, PT #### [address] Platelets (Bld) [#/Vol] 117 10*3/uL Low 150-450 [facility] Comment on above: Performed By: #### P TT, FIB-C, PT #### [address] RBC (Bld) [#/Vol] 3.96 10*6/uL Normal 3.90-5.60 [facility] Comment on above: Performed By: #### P TT, FIB-C, PT #### [address] WBC (Bld) [#/Vol] 3.4 10*3/uL Low 4.1-10.5 [facility] Comment on above: Performed By: #### P TT, FIB-C, PT #### [place] [address] [place] Eosinophils Auto (Bld) [#/Vo l]Ordered By: Erich Alejandro on 10-22-2024 Eosinophils (Bld) [#/Vol] Automated eosinophil count 0.0-0.45 [facility] Eosinophils/100 WBC Auto (Bl d)Ordered By: Erich Alejandro on 10-22-2024 Eosinophils/100 WBC (Bld) Automated eosinophil % . [facility] Erythrocyte distribution wid th Auto (RBC) [Ratio]Ordered By: Erich Alejandro on 10-22-2024 Erythrocyte distribution width (RBC) [Ratio] Erythrocyte distribution width [Ratio] by Automated count 12.0-14.8 [facility] Hematocrit Auto (Bld) [Volum e fraction]Ordered By: Erich Alejandro on 10-22-2024 Hematocrit (Bld) [Volume fraction] Hematocrit [Volume Fraction] of Blood by Automated count 38.8-50.0 [facility] Hemoglobin [Mass/volume] in BloodOrdered By: Erich Alejandro on 10-22-2024 Hemoglobin (Bld) [Mass/Vol] Hemoglobin [Mass/volume] in Blood 13.0-17.0 [facility] INR in Platelet poor plasma by Coagulation assayOrdered By: Angelo Iglesias on 10-22-2024 INR Coag (PPP) [Relative time] INR in Platelet poor plasma by Coagulation assay [facility] Comment on above: INR Therapeutic Rang e [...] in Blood by Automated coun Low 4.1-10.5 [facility] Lymphocytes Auto (Bld) [#/Vo l]Ordered By: Erich Alejandro on 10-22-2024 Lymphocytes (Bld) [#/Vol] Lymphocytes [#/volume] in Blood by Automated count Low 1.00-4.8 [facility] Lymphocytes/100 WBC Auto (Bl d)Ordered By: Erihc Alejandro on 10-22-2024 Lymphocytes/100 WBC (Bld) Lymphocytes/100 leukocytes in Blood by Automated count . [facility] MCH Auto (RBC) [Entitic mass ]Ordered By: Erich Alejandro on 10-22-2024 MCH (RBC) [Entitic mass] MCH [Entitic mass] by Automated count 27.5-35.2 [facility] MCHC Auto (RBC) [Mass/Vol]Or dered By: Erich Alejandro on 10-22-2024 MCHC (RBC) [Mass/Vol] MCHC [Mass/volume] by Automated count 32.5-35.6 [facility] MCV Auto (RBC) [Entitic vol] Ordered By: Erich Alejandro on 10-22-2024 MCV (RBC) [Entitic vol] MCV [Entitic vol ume] by Automated count 83.5-101 [facility] Monocytes Auto (Bld) [#/Vol] Ordered By: Erich Alejandro on 10-22-2024 Monocytes (Bld) [#/Vol] Automated blood monocyte count 0.0-0.8 [facility] Monocytes/100 WBC Auto (Bld) Ordered By: Erich Alejandro on 10-22-2024 Monocytes/100 WBC (Bld) Automated monocyte % . [facility] Neutrophils Auto (Bld) [#/Vo l]Ordered By: Erich Alejandro on 10-22-2024 Neutrophils (Bld) [#/Vol] Neutrophils [#/volume] in Blood by Automated count 1.8-7.7 [facility] Neutrophils/100 WBC Auto (Bl d)Ordered By: Erich Alejandro on 10-22-2024 Neutrophils/100 WBC (Bld) Automated neutrophil % . [facility] No Panel InformationOrdered By: Angelo Iglesias on 10-22-2024 Miscellaneous Pathology Test See comment [facility] Comment on above: See report. Scanned copy available in EMR. Nucleated erythrocytes [Pres ence] in Blood by Automated countOrdered By: Erich Alejandro on 10-22-2024 Nucleated RBC Auto Ql (Bld) Nucleated erythrocytes [Presence] in Blood by Automated count 0-0.5 [facility] Pathology Request for Lab Co rpon 10-22-2024 Pathology Request for Lab Zainab Normal [facility] Comment on above: Result Comment: See report. Scanned copy available in EMR. PERFORMED BY: [place] [id number] [place] [address] PATHOLOGIST COMPUTER INSTALLATION ENGINEER ALEX SALMERON M.D. Performed By: #### P TT, FIB-C, PT #### [facility] [address] Platelet mean volume Auto (B ld) [Entitic vol]Ordered By: Erich Alejandro on 10-22-2024 Platelet mean volume (Bld) [Entitic vol] Platelet mean volume [Entitic volume] in Blood by Automated count 6.6-10.1 [facility] Platelets Auto (Bld) [#/Vol] Ordered By: Erich Alejandro on 10-22-2024 Platelets (Bld) [#/Vol] Platelets [#/vol ume] in Blood by Automated count Low 150-450 [facility] Prothrombin Time INRon 10-22 INR Coag (PPP) [Relative time] 1.0 {INR} Normal [facility] Comment on above: Result Comment: [...] heart valves: 3 - 4.5 PERFORMED BY: [place] [address] PATHOLOGIST COMPUTER INSTALLATION ENGINEER ALEX SALMERON M.D. Performed By: #### B MP, MG, CBC #### [place] [id number] [facility] PT Coag (PPP) [Time] 11.3 s Normal 9.0-12.9 [facility] Comment on above: Result Comment: A he matocrit value greater than 55% may lead to inaccurate results in coagulation testing. Patients having hematocrit values >55% require a special collection tube for coagulation studies. Please contact the laboratory at [phone] for redraw instructions. Performed By: #### B MP, MG, CBC #### [place] [id number] [facility] Prothrombin time (PT)Ordered By: Angelo Iglesias on 10-22-2024 PT Coag (PPP) [Time] Prothrombin time (PT) 9.0- 12.9 [facility] Comment on above: A hematocrit value g reater than 55% may lead to inaccurate results in coagulation testing. Patients having hematocrit values >55% require a special collection tube for coagulation studies. Please contact the laboratory at [phone] for redraw instructions. RBC Auto (Bld) [#/Vol]Ordere d By: Erich Alejandro on 10-22-2024 RBC (Bld) [#/Vol] Erythrocytes [#/volu me] in Blood by Automated count 3.90-5.60 [facility] WBC Auto (Bld) [#/Vol]Ordere d By: Erich Alejandro on 10-22-2024 WBC (Bld) [#/Vol] Leukocytes [#/volume ] in Blood by Automated count Low 4.1-10.5 [facility] Basic Metabolic Panelon 10-03 Anion gap [Moles/Vol] 9.3 mmol/L Normal 6.0-15.0 [facility] Comment on above: Performed By: #### B MP, MG, CBC #### [address] Calcium [Mass/Vol] 7.9 mg/dL Low 8.6-10.3 [facility] Comment on above: Performed By: #### B MP, MG, CBC #### [address] Chloride [Moles/Vol] 104 mmol/L Normal 98-107 [facility] Comment on above: Performed By: #### B MP, MG, CBC #### [facility] [address] [place] [address] [place] CO2 [Moles/Vol] 27.1 mmol/L Normal 21.0-31.0 [facility] Comment on above: Performed By: #### B MP, MG, CBC #### [facility] [address] [place] [address] [place] Creatinine [Mass/Vol] 1.17 mg/dL Normal 0.70-1.30 [facility] Comment on above: Performed By: #### B MP, MG, CBC #### [facility] [address] [place] [address] Creatinine Clr Calc Pharmacy 57.95 Normal [facility] Comment on above: Performed By: #### B MP, MG, CBC #### [place] [address] [place] GFR/1.73 sq M.predicted MDRD (S/P/Bld) [Vol rate/Area] mL/min/{1.73_m2} Normal [facility] Comment on above: Performed By: #### B MP, MG, CBC #### [address] Glucose [Mass/Vol] 168 mg/dL High 70-100 [facility] Comment on above: Result Comment: [place] Glucose Reference Range is dependent on time and content of last meal. Glucose of more than 200 mg/dL in a nonstressed, ambulatory subject supports the diagnosis of Diabetes Mellitus. ADA recommended reference range Performed By: #### B MP, MG, CBC #### [address] Potassium [Moles/Vol] 3.4 mmol/L Low 3.5-5.1 [facility] Comment on above: Performed By: #### B MP, MG, CBC #### [address] Sodium [Moles/Vol] 137 mmol/L Normal 136-145 [facility] Comment on above: Performed By: #### B MP, MG, CBC #### [address] Urea nitrogen [Mass/Vol] 17 mg/dL Normal 7-25 [facility] Comment on above: Performed By: #### B MP, MG, CBC #### [place] [address] [place] Basophils Auto (Bld) [#/Vol] Ordered By: [place] on 10-14-2024 Basophils (Bld) [#/Vol] Automated basophil count 0.0-0.2 [facility] Basophils/100 WBC Auto (Bld) Ordered By: [place] on 10-14-2024 Basophils/100 WBC (Bld) Automated basophil % . [facility] Calcium [Mass/volume] in Ser um or PlasmaOrdered By: [place] on 10-14-2024 Calcium [Mass/Vol] Calcium [Mass/volume ] in Serum or Plasma Low 8.6-10.3 [facility] Carbon dioxide, total [Moles /volume] in Serum or PlasmaOrdered By: [place] on 10-14-2024 CO2 [Moles/Vol] Carbon dioxide, tota l [Moles/volume] in Serum or Plasma 21.0-31.0 [facility] Chloride [Moles/volume] in S beto or PlasmaOrdered By: [place] Car[place] on 10-14-2024 Chloride [Moles/Vol] Chloride [Moles/vol ume] in Serum or Plasma 98-107 [facility] Complete Blood Count Auto Di ffon 10-14-2024 Basophils (Bld) [#/Vol] 0.0 10*3/uL Normal 0.0-0.2 [facility] Comment on above: Result Comment: PERF ORMED BY: [place] [address] PATHOLOGIST COMPUTER INSTALLATION ENGINEER ALEX SALMERON M.D. Performed By: #### B MP, MG, CBC #### [facility] [address] Basophils/100 WBC (Bld) 1.4 % Normal . [place] [facility] Comment on above: Performed By: #### B MP, MG, CBC #### [facility] [address] [place] [address] [place] Eosinophils (Bld) [#/Vol] 0.1 10*3/uL Normal 0.0-0.45 [facility] Comment on above: Performed By: #### B MP, MG, CBC #### [facility] [address] [place] [address] [place] Eosinophils/100 WBC (Bld) 2.0 % Normal . [facility] Comment on above: Performed By: #### B MP, MG, CBC #### [address] Erythrocyte distribution width (RBC) [Ratio] 13.1 % Normal 12.0-14.8 [facility] Comment on above: Performed By: #### B MP, MG, CBC #### [address] Hematocrit (Bld) [Volume fraction] 32.8 % Low 38.8-50.0 [facility] Comment on above: Performed By: #### B MP, MG, CBC #### [address] Hemoglobin (Bld) [Mass/Vol] 11.7 g/dL Low 13.0-17.0 [facility] Comment on above: Performed By: #### B MP, MG, CBC #### [address] Lymphocytes (Bld) [#/Vol] 0.8 10*3/uL Low 1.00-4.8 [facility] Comment on above: Performed By: #### B MP, MG, CBC #### [address] Lymphocytes/100 WBC (Bld) 24.6 % Normal . [facility] Comment on above: Performed By: #### B MP, MG, CBC #### [address] MCH (RBC) [Entitic mass] 34.3 pg Normal 27.5-35.2 [facility] Comment on above: Performed By: #### B MP, MG, CBC #### [address] MCV (RBC) [Entitic vol] 96.0 fL Normal 83.5-101 [facility] Comment on above: Performed By: #### B MP, MG, CBC #### [address] Mean Corpuscular HGB Conc 35.7 g/dL High 32.5-35.6 [facility] Comment on above: Performed By: #### B MP, MG, CBC #### [facility] [address] Monocytes (Bld) [#/Vol] 0.3 10*3/uL Normal 0.0-0.8 [facility] Comment on above: Performed By: #### B MP, MG, CBC #### [facility] [address] [place] [address] [place] Monocytes/100 WBC (Bld) 9.8 % Normal . [place] [facility] Comment on above: Performed By: #### B MP, MG, CBC #### [facility] [address] [place] [address] [place] Neutrophils (Bld) [#/Vol] 2.0 10*3/uL Normal 1.8-7.7 [facility] Comment on above: Performed By: #### B MP, MG, CBC #### [facility] [address] [place] [address] [place] Neutrophils/100 WBC (Bld) 62.2 % Normal . [facility] Comment on above: Performed By: #### B MP, MG, CBC #### [facility] [address] [place] [address] [place] NRBC% 0.1 /100{WBC} Normal 0-0.5 [facility] Comment on above: Performed By: #### B MP, MG, CBC #### [facility] [address] [place] [address] [place] Platelet mean volume (Bld) [Entitic vol] 8.0 fL Normal 6.6-10.1 [facility] Comment on above: Performed By: #### B MP, MG, CBC #### [facility] [address] [place] [address] [place] Platelets (Bld) [#/Vol] 85 10*3/uL Low 150-450 [facility] Comment on above: Performed By: #### B MP, MG, CBC #### [facility] [address] [place] [address] [place] RBC (Bld) [#/Vol] 3.42 10*6/uL Low 3.90-5.60 [facility] Comment on above: Performed By: #### B MP, MG, CBC #### [facility] [address] WBC (Bld) [#/Vol] 3.2 10*3/uL Low 4.1-10.5 [facility] Comment on above: Performed By: #### B MP, MG, CBC #### [facility] [address] Creatinine [Mass/volume] in Serum or PlasmaOrdered By: [place] on 10-14-2024 Creatinine [Mass/Vol] Creatinine [Mass/v olume] in Serum or Plasma 0.70-1.30 [facility] Eosinophils Auto (Bld) [#/Vo l]Ordered By: [place] on 10-14-2024 Eosinophils (Bld) [#/Vol] Automated eosinophil count 0.0-0.45 [facility] Eosinophils/100 WBC Auto (Bl d)Ordered By: [place] Car[place] on 10-14-2024 Eosinophils/100 WBC (Bld) Automated eosinophil % . [facility] Erythrocyte distribution wid th Auto (RBC) [Ratio]Ordered By: [place] on 10-14-2024 Erythrocyte distribution width (RBC) [Ratio] Erythrocyte distribution width [Ratio] by Automated count 12.0-14.8 [facility] Glucose Glucometer (BldC) [M ass/Vol]Ordered By: [place] Carab[place] on 10-14-2024 Glucose [Mass/Vol] Capillary blood gluc ose measurement by glucometer (mass/volume) [facility] Comment on above: Random Glucose Refer ence Range is dependent on time and content of last meal. Glucose of more than 200 mg/dL in a nonstressed, ambulatory subject supports the diagnosis of Diabetes Mellitus. Glucose Poct Glucometerson 0 10-14-2024 Commemt1 Glu2: Cleaned Meter Normal [facility] Comment on above: Result Comment: PERF ORMED BY: [facility] [address] [place] [address] PATHOLOGIST COMPUTER INSTALLATION ENGINEER ALEX SALMERON M.D. Performed By: #### G LULS #### Point of Care testing , Glucose [Mass/Vol] 201 mg/dL Normal [facility] Comment on above: Result Comment: [place] om Glucose Reference Range is dependent on time and content of last meal. Glucose of more than 200 mg/dL in a nonstressed, ambulatory subject supports the diagnosis of Diabetes Mellitus. Performed By: #### G LULS #### Point of Care testing , Commemt1 Glu2: Cleaned Meter Normal [facility] Comment on above: Result Comment: PERF ORMED BY: [facility] [address] [place] [address] PATHOLOGIST COMPUTER INSTALLATION ENGINEER ALEX SALMERON M.D. Performed By: #### G LULS #### Point of Care testing , Glucose [Mass/Vol] 145 mg/dL Normal [facility] Comment on above: Result Comment: [place] om Glucose Reference Range is dependent on [...] ] in Serum or Plasma High 70-100 [facility] Comment on above: ADA recommended [...] of Blood by Automated count Low 38.8-50.0 [facility] Hemoglobin [Mass/volume] in BloodOrdered By: [place] Caraballo on 10-14-2024 Hemoglobin (Bld) [Mass/Vol] Hemoglobin [Mass/volume] in Blood Low 13.0-17.0 [facility] Leukocytes [#/volume] correc layton for nucleated erythrocytes in Blood by Automated counOrdered By: [place] Caraballo on 10-14-2024 WBC corrected for nucl RBC Auto (Bld) [#/Vol] Leukocytes [#/volume] corrected for nucleated erythrocytes in Blood by Automated coun Low 4.1-10.5 [facility] Lymphocytes Auto (Bld) [#/Vo l]Ordered By: [place] Carab[place] on 10-14-2024 Lymphocytes (Bld) [#/Vol] Lymphocytes [#/volume] in Blood by Automated count Low 1.00-4.8 [facility] Lymphocytes/100 WBC Auto (Bl d)Ordered By: Westshannan Caraballo on 10-14-2024 Lymphocytes/100 WBC (Bld) Lymphocytes/100 leukocytes in Blood by Automated count . [facility] MCH Auto (RBC) [Entitic mass ]Ordered By: [place] Caraballo on 10-14-2024 MCH (RBC) [Entitic mass] MCH [Entitic mass] by Automated count 27.5-35.2 [facility] MCHC Auto (RBC) [Mass/Vol]Or dered By: [place] Caraballo on 10-14-2024 MCHC (RBC) [Mass/Vol] MCHC [Mass/volume] by Automated count High 32.5-35.6 [facility] MCV Auto (RBC) [Entitic vol] Ordered By: [place] Caraballo on 10-14-2024 MCV (RBC) [Entitic vol] MCV [Entitic vol ume] by Automated count 83.5-101 [facility] Magnesiumon 10-14-2024 Magnesium [Mass/Vol] 1.7 mg/dL Low 1.9-2.7 [facility] Comment on above: Result Comment: PERF ORMED BY: [place] [address] PATHOLOGIST COMPUTER INSTALLATION ENGINEER ALEX SALMERON M.D. Performed By: #### B MP, MG, CBC #### [address] Magnesium [Mass/volume] in S beto or PlasmaOrdered By: West Caraballo on 10-14-2024 Magnesium [Mass/Vol] Magnesium [Mass/vol ume] in Serum or Plasma Low 1.9-2.7 [facility] Monocytes Auto (Bld) [#/Vol] Ordered By: [place] Caraballo on 10-14-2024 Monocytes (Bld) [#/Vol] Automated blood monocyte count 0.0-0.8 [facility] Monocytes/100 WBC Auto (Bld) Ordered By: [place] Caraballo on 10-14-2024 Monocytes/100 WBC (Bld) Automated monocyte % . [facility] Neutrophils Auto (Bld) [#/Vo l]Ordered By: [place] Carab[place] on 10-14-2024 Neutrophils (Bld) [#/Vol] Neutrophils [#/volume] in Blood by Automated count 1.8-7.7 [facility] Neutrophils/100 WBC Auto (Bl d)Ordered By: [place] Caraballo on 10-14-2024 Neutrophils/100 WBC (Bld) Automated neutrophil % . [facility] No Panel InformationOrdered By: [place] Caraballo on 10-14-2024 Bedside Glucose Comment Glu2: cleaned meter [facility] Estimated GFR (CKD-EPI) > 60.0 mL/Min [facility] Pharmacy Creatinine Clearance (Chem 57.95 [facility] Nucleated erythrocytes [Pres ence] in Blood by Automated countOrdered By: [place] Caraballo on 10-14-2024 Nucleated RBC Auto Ql (Bld) Nucleated erythrocytes [Presence] in Blood by Automated count 0-0.5 [facility] Platelet mean volume Auto (B ld) [Entitic vol]Ordered By: [place] Caraballo on 10-14-2024 Platelet mean volume (Bld) [Entitic vol] Platelet mean volume [Entitic volume] in Blood by Automated count 6.6-10.1 [facility] Platelets Auto (Bld) [#/Vol] Ordered By: [place] Carab[place] on 10-14-2024 Platelets (Bld) [#/Vol] Platelets [#/vol ume] in Blood by Automated count Low 150-450 [facility] Potassium [Moles/volume] in Serum or PlasmaOrdered By: [place] Car[place] on 10-14-2024 Potassium [Moles/Vol] Potassium [Moles/v olume] in Serum or Plasma Low 3.5-5.1 [facility] RBC Auto (Bld) [#/Vol]Ordere d By: [place] Car[place] on 10-14-2024 RBC (Bld) [#/Vol] Erythrocytes [#/volu me] in Blood by Automated count Low 3.90-5.60 [facility] Serum or plasma anion gap de terminationOrdered By: [place] Caraballo on 10-14-2024 Anion gap [Moles/Vol] Serum or plasma an ion gap determination 6.0-15.0 [facility] Sodium [Moles/volume] in Ser um or PlasmaOrdered By: [place] Caraballo on 10-14-2024 Sodium [Moles/Vol] Sodium [Moles/volume ] in Serum or Plasma 136-145 [facility] Urea nitrogen [Mass/volume] in Serum or PlasmaOrdered By: West Caraballo on 10-14-2024 Urea nitrogen [Mass/Vol] Urea nitrogen [Mass/volume] in Serum or Plasma 7-25 [facility] WBC Auto (Bld) [#/Vol]Ordere d By: [place] Caraballo on 10-14-2024 WBC (Bld) [#/Vol] Leukocytes [#/volume ] in Blood by Automated count Low 4.1-10.5 [facility] Basic Metabolic Panelon 10-03 Anion gap [Moles/Vol] 8.8 mmol/L Normal 6.0-15.0 [facility] Comment on above: Performed By: #### B MP, MG, CBC #### [facility] [address] [place] [address] [place] Calcium [Mass/Vol] 7.8 mg/dL Low 8.6-10.3 [facility] Comment on above: Performed By: #### B MP, MG, CBC #### [facility] [address] [place] [id number] [place] Chloride [Moles/Vol] 107 mmol/L Normal 98-107 [facility] Comment on above: Performed By: #### B MP, MG, CBC #### [facility] [address] CO2 [Moles/Vol] 25.7 mmol/L Normal 21.0-31.0 [facility] Comment on above: Performed By: #### B MP, MG, CBC #### [facility] [address] [place] [address] [place] Creatinine [Mass/Vol] 1.01 mg/dL Normal 0.70-1.30 [facility] Comment on above: Performed By: #### B MP, MG, CBC #### [facility] [address] [place] [address] [place] Creatinine Clr Calc Pharmacy 67.31 Normal [facility] Comment on above: Result Comment: PERF ORMED BY: [place] [address] PATHOLOGIST COMPUTER INSTALLATION ENGINEER ALEX SALMERON M.D. Performed By: #### B MP, MG, CBC #### [facility] [address] [place] [address] [place] GFR/1.73 sq M.predicted MDRD (S/P/Bld) [Vol rate/Area] mL/min/{1.73_m2} Normal [facility] Comment on above: Performed By: #### B MP, MG, CBC #### [facility] [address] Glucose [Mass/Vol] 144 mg/dL High 70-100 [facility] Comment on above: Result Comment: [place] Glucose Reference Range is dependent on time and content of last meal. Glucose of more than 200 mg/dL in a nonstressed, ambulatory subject supports the diagnosis of Diabetes Mellitus. ADA recommended reference range Performed By: #### B MP, MG, CBC #### [facility] [address] Potassium [Moles/Vol] 3.5 mmol/L Normal 3.5-5.1 [facility] Comment on above: Performed By: #### B MP, MG, CBC #### [address] Sodium [Moles/Vol] 138 mmol/L Normal 136-145 [facility] Comment on above: Performed By: #### B MP, MG, CBC #### [address] Urea nitrogen [Mass/Vol] 14 mg/dL Normal 7-25 [facility] Comment on above: Performed By: #### B MP, MG, CBC #### [address] Complete Blood Count Auto Di ffon 10-13-2024 Basophils (Bld) [#/Vol] 0.0 10*3/uL Normal 0.0-0.2 [facility] Comment on above: Result Comment: PERF ORMED BY: [place] [address] PATHOLOGIST COMPUTER INSTALLATION ENGINEER ALEX SALMERON M.D. Performed By: #### B MP, MG, CBC #### [address] Basophils/100 WBC (Bld) 0.9 % Normal . T [facility] Comment on above: Performed By: #### B MP, MG, CBC #### [address] Eosinophils (Bld) [#/Vol] 0.0 10*3/uL Normal 0.0-0.45 [facility] Comment on above: Performed By: #### B MP, MG, CBC #### [address] Eosinophils/100 WBC (Bld) 1.7 % Normal . [facility] Comment on above: Performed By: #### B MP, MG, CBC #### [address] Erythrocyte distribution width (RBC) [Ratio] 12.9 % Normal 12.0-14.8 [facility] Comment on above: Performed By: #### B MP, MG, CBC #### [address] Hematocrit (Bld) [Volume fraction] 33.3 % Low 38.8-50.0 [facility] Comment on above: Performed By: #### B MP, MG, CBC #### [address] Hemoglobin (Bld) [Mass/Vol] 11.7 g/dL Low 13.0-17.0 [facility] Comment on above: Performed By: #### B MP, MG, CBC #### [address] Lymphocytes (Bld) [#/Vol] 0.7 10*3/uL Low 1.00-4.8 [facility] Comment on above: Performed By: #### B MP, MG, CBC #### [address] Lymphocytes/100 WBC (Bld) 25.8 % Normal . [facility] Comment on above: Performed By: #### B MP, MG, CBC #### [address] MCH (RBC) [Entitic mass] 33.7 pg Normal 27.5-35.2 [facility] Comment on above: Performed By: #### B MP, MG, CBC #### [address] MCV (RBC) [Entitic vol] 96.2 fL Normal 83.5-101 [facility] Comment on above: Performed By: #### B MP, MG, CBC #### [address] Mean Corpuscular HGB Conc 35.0 g/dL Normal 32.5-35.6 [facility] Comment on above: Performed By: #### B MP, MG, CBC #### [address] Monocytes (Bld) [#/Vol] 0.2 10*3/uL Normal 0.0-0.8 [facility] Comment on above: Performed By: #### B MP, MG, CBC #### [facility] [address] [place] [address] [place] Monocytes/100 WBC (Bld) 7.9 % Normal . [facility] Comment on above: Performed By: #### B MP, MG, CBC #### [facility] [address] [place] [address] [place] Neutrophils (Bld) [#/Vol] 1.7 10*3/uL Low 1.8-7.7 [facility] Comment on above: Performed By: #### B MP, MG, CBC #### [facility] [address] Neutrophils/100 WBC (Bld) 63.7 % Normal . [facility] Comment on above: Performed By: #### B MP, MG, CBC #### [address] NRBC% 0.2 /100{WBC} Normal 0-0.5 [facility] Comment on above: Performed By: #### B MP, MG, CBC #### [facility] [address] [place] [address] [place] Platelet mean volume (Bld) [Entitic vol] 8.0 fL Normal 6.6-10.1 [facility] Comment on above: Performed By: #### B MP, MG, CBC #### [facility] [address] [place] [address] [place] Platelets (Bld) [#/Vol] 77 10*3/uL Low 150-450 [facility] Comment on above: Performed By: #### B MP, MG, CBC #### [facility] [address] [place] [address] [place] RBC (Bld) [#/Vol] 3.46 10*6/uL Low 3.90-5.60 [facility] Comment on above: Performed By: #### B MP, MG, CBC #### [facility] [address] [place] [address] [place] WBC (Bld) [#/Vol] 2.7 10*3/uL Low 4.1-10.5 [facility] Comment on above: Performed By: #### B MP, MG, CBC #### [facility] [address] Glucose Poct Glucometerson 0 10-13-2024 Glucose [Mass/Vol] 184 mg/dL Normal [facility] Comment on above: Result Comment: [place] om Glucose Reference Range is dependent on time and content of last meal. Glucose of more than 200 mg/dL in a nonstressed, ambulatory subject supports the diagnosis of Diabetes Mellitus. PERFORMED BY: [place] [address] PATHOLOGIST COMPUTER INSTALLATION ENGINEER ALEX SALMERON M.D. Performed By: #### G LULS #### Point of Care testing , Glucose [Mass/Vol] 134 mg/dL Normal [facility] Comment on above: Result Comment: [place] Glucose Reference Range is dependent on time and content of last meal. Glucose of more than 200 mg/dL in a nonstressed, ambulatory subject supports the diagnosis of Diabetes Mellitus. PERFORMED BY: [place] [address] PATHOLOGIST COMPUTER INSTALLATION ENGINEER ALEX SALMERON M.D. Performed By: #### P TT, FIB-C, PT #### [facility] [address] [place] [address] Glucose [Mass/Vol] 172 mg/dL Normal [facility] Comment on above: Result Comment: [place] Glucose Reference Range is dependent on time and content of last meal. Glucose of more than 200 mg/dL in a nonstressed, ambulatory subject supports the diagnosis of Diabetes Mellitus. PERFORMED BY: [place] [address] PATHOLOGIST COMPUTER INSTALLATION ENGINEER ALEX SALMERON M.D. Performed By: #### G LULS #### Point of Care testing , Glucose [Mass/Vol] 125 mg/dL Normal [facility] Comment on above: Result Comment: [place] om Glucose Reference Range is dependent on time and content of last meal. Glucose of more than 200 mg/dL in a nonstressed, ambulatory subject supports the diagnosis of Diabetes Mellitus. PERFORMED BY: [place] [address] PATHOLOGIST COMPUTER INSTALLATION ENGINEER ALEX SALMERON M.D. Performed By: #### G LULS #### Point of Care testing , Alanine aminotransferase [En zymatic activity/volume] in Serum or PlasmaOrdered By: Loyda Carlos on 10-12-2024 ALT [Catalytic activity/Vol] Alanine aminotransferase [Enzymatic activity/volume] in Serum or Plasma 7-52 [facility] Albumin [Mass/volume] in Ser um or Plasma by Bromocresol green (BCG) dye binding methoOrdered By: Loyda Carlos on 10-12-2024 Albumin BCG dye [Mass/Vol] Albumin [Mass/volume] in Serum or Plasma by Bromocresol green (BCG) dye binding metho Low 3.5-5.7 [facility] Alkaline phosphatase [Enzyma tic activity/volume] in Serum or PlasmaOrdered By: Loyda Carlos on 10-12-2024 ALP [Catalytic activity/Vol] Alkaline phosphatase [Enzymatic activity/volume] in Serum or Plasma 34-104 [facility] Aspartate aminotransferase [ Enzymatic activity/volume] in Serum or PlasmaOrdered By: Loyda Carlos on 10-12-2024 AST [Catalytic activity/Vol] Aspartate aminotransferase [Enzymatic activity/volume] in Serum or Plasma High 13-39 [facility] Bilirubin.total [Mass/volume ] in Serum or PlasmaOrdered By: Loyda Carlos on 10-12-2024 Bilirubin [Mass/Vol] Bilirubin.total [Mass/volume] in Serum or Plasma 0.3-1.0 [facility] Complete Blood Count Auto Di ffon 10-12-2024 Basophils (Bld) [#/Vol] 0.0 10*3/uL Normal 0.0-0.2 [facility] Comment on above: Result Comment: PERF ORMED BY: [address] [address] PATHOLOGIST COMPUTER INSTALLATION ENGINEER ALEX SALMERON M.D. Performed By: #### B MP, MG, CBC #### [place] [address] Basophils/100 WBC (Bld) 1.0 % Normal . [facility] Comment on above: Performed By: #### B MP, MG, CBC #### [address] Eosinophils (Bld) [#/Vol] 0.0 10*3/uL Normal 0.0-0.45 [facility] Comment on above: Performed By: #### B MP, MG, CBC #### [address] Eosinophils/100 WBC (Bld) 1.5 % Normal . [facility] Comment on above: Performed By: #### B MP, MG, CBC #### [address] Erythrocyte distribution width (RBC) [Ratio] 13.4 % Normal 12.0-14.8 [facility] Comment on above: Performed By: #### B MP, MG, CBC #### [address] Hematocrit (Bld) [Volume fraction] 32.8 % Low 38.8-50.0 [facility] Comment on above: Performed By: #### B MP, MG, CBC #### [address] Hemoglobin (Bld) [Mass/Vol] 11.5 g/dL Low 13.0-17.0 [facility] Comment on above: Performed By: #### B MP, MG, CBC #### [place] [address] [place] Lymphocytes (Bld) [#/Vol] 0.7 10*3/uL Low 1.00-4.8 [facility] Comment on above: Performed By: #### B MP, MG, CBC #### [address] Lymphocytes/100 WBC (Bld) 26.9 % Normal . [facility] Comment on above: Performed By: #### B MP, MG, CBC #### [address] MCH (RBC) [Entitic mass] 33.5 pg Normal 27.5-35.2 [facility] Comment on above: Performed By: #### B MP, MG, CBC #### [address] MCV (RBC) [Entitic vol] 96.0 fL Normal 83.5-101 [facility] Comment on above: Performed By: #### B MP, MG, CBC #### [address] Mean Corpuscular HGB Conc 34.9 g/dL Normal 32.5-35.6 [facility] Comment on above: Performed By: #### B MP, MG, CBC #### [address] Monocytes (Bld) [#/Vol] 0.3 10*3/uL Normal 0.0-0.8 [facility] Comment on above: Performed By: #### B MP, MG, CBC #### [address] Monocytes/100 WBC (Bld) 10.4 % Normal . [facility] Comment on above: Performed By: #### B MP, MG, CBC #### [address] Neutrophils (Bld) [#/Vol] 1.5 10*3/uL Low 1.8-7.7 [facility] Comment on above: Performed By: #### B MP, MG, CBC #### [address] Neutrophils/100 WBC (Bld) 60.2 % Normal . [facility] Comment on above: Performed By: #### B MP, MG, CBC #### [address] NRBC% 0.3 /100{WBC} Normal 0-0.5 [facility] Comment on above: Performed By: #### B MP, MG, CBC #### [address] Platelet mean volume (Bld) [Entitic vol] 8.0 fL Normal 6.6-10.1 [facility] Comment on above: Performed By: #### B MP, MG, CBC #### [address] Platelets (Bld) [#/Vol] 73 10*3/uL Low 150-450 T [facility] Comment on above: Performed By: #### B MP, MG, CBC #### [address] RBC (Bld) [#/Vol] 3.42 10*6/uL Low 3.90-5.60 [facility] Comment on above: Performed By: #### B MP, MG, CBC #### [address] WBC (Bld) [#/Vol] 2.5 10*3/uL Low 4.1-10.5 [facility] Comment on above: Performed By: #### B MP, MG, CBC #### [address] Comprehensive Metabolic Pane cyndy 10-12-2024 Albumin [Mass/Vol] 3.0 g/dL Low 3.5-5.7 [facility] Comment on above: Performed By: #### B MP, MG, CBC #### [address] Albumin/Globulin [Mass ratio] 1.8 {ratio} Normal [facility] Comment on above: Performed By: #### B MP, MG, CBC #### [address] ALP [Catalytic activity/Vol] 69 U/L Normal 34-104 [facility] Comment on above: Performed By: #### B MP, MG, CBC #### [address] ALT [Catalytic activity/Vol] 47 U/L Normal 7-52 [facility] Comment on above: Performed By: #### B MP, MG, CBC #### [facility] [address] Anion gap [Moles/Vol] 11.1 mmol/L Normal 6.0-15.0 [facility] Comment on above: Performed By: #### B MP, MG, CBC #### [facility] [address] AST [Catalytic activity/Vol] 42 U/L High 13-39 [facility] Comment on above: Performed By: #### B MP, MG, CBC #### [facility] [address] Bilirubin [Mass/Vol] 0.3 mg/dL Normal 0.3-1.0 [facility] Comment on above: Performed By: #### B MP, MG, CBC #### [facility] [address] Calcium [Mass/Vol] 7.5 mg/dL Low 8.6-10.3 [facility] Comment on above: Performed By: #### B MP, MG, CBC #### [facility] [address] [place] [address] [place] Chloride [Moles/Vol] 109 mmol/L High 98-107 [facility] Comment on above: Performed By: #### B MP, MG, CBC #### [facility] [address] [place] [address] [place] CO2 [Moles/Vol] 22.7 mmol/L Normal 21.0-31.0 [facility] Comment on above: Performed By: #### B MP, MG, CBC #### [facility] [address] [place] [address] [place] Creatinine [Mass/Vol] 1.07 mg/dL Normal 0.70-1.30 [facility] Comment on above: Performed By: #### B MP, MG, CBC #### [facility] [address] [place] [address] [place] Creatinine Clr Calc Pharmacy 62.69 Normal [facility] Comment on above: Performed By: #### B MP, MG, CBC #### [facility] [address] [place] [address] [place] GFR/1.73 sq M.predicted MDRD (S/P/Bld) [Vol rate/Area] mL/min/{1.73_m2} Normal [facility] Comment on above: Performed By: #### B MP, MG, CBC #### [facility] [address] [place] [address] [place] Globulin (S) [Mass/Vol] 1.7 g/dL Normal T [facility] Comment on above: Performed By: #### B MP, MG, CBC #### [address] Glucose [Mass/Vol] 134 mg/dL High 70-100 [facility] Comment on above: Result Comment: [facility] Glucose Reference Range is dependent on time and content of last meal. Glucose of more than 200 mg/dL in a nonstressed, ambulatory subject supports the diagnosis of Diabetes Mellitus. ADA recommended reference range Performed By: #### B MP, MG, CBC #### [address] Potassium [Moles/Vol] 3.8 mmol/L Normal 3.5-5.1 [facility] Comment on above: Performed By: #### B MP, MG, CBC #### [address] Protein [Mass/Vol] 4.7 g/dL Low 6.4-8.9 [facility] Comment on above: Performed By: #### B MP, MG, CBC #### [place] [address] [place] Sodium [Moles/Vol] 139 mmol/L Normal 136-145 [facility] Comment on above: Performed By: #### B MP, MG, CBC #### [address] Urea nitrogen [Mass/Vol] 14 mg/dL Normal 7-25 [facility] Comment on above: Performed By: #### B MP, MG, CBC #### [address] [address] [place] Globulin Calc (S) [Mass/Vol] Ordered By: Loyda Carlos on 10-12-2024 Globulin (S) [Mass/Vol] Serum globulin m easurement by calculation (mass/volume) [facility] Glucose Poct Glucometerson 0 10-12-2024 Glucose [Mass/Vol] 195 mg/dL Normal [facility] Comment on above: Result Comment: [place] Glucose Reference Range is dependent on time and content of last meal. Glucose of more than 200 mg/dL in a nonstressed, ambulatory subject supports the diagnosis of Diabetes Mellitus. PERFORMED BY: [place] [address] PATHOLOGIST COMPUTER INSTALLATION ENGINEER ALEX SALMERON M.D. Performed By: #### P TT, FIB-C, PT #### [address] Glucose [Mass/Vol] 171 mg/dL Normal [facility] Comment on above: Result Comment: [facility] Glucose Reference Range is dependent on time and content of last meal. Glucose of more than 200 mg/dL in a nonstressed, ambulatory subject supports the diagnosis of Diabetes Mellitus. PERFORMED BY: [place] [address] PATHOLOGIST COMPUTER INSTALLATION ENGINEER ALEX SALMERON M.D. Performed By: #### B MP, MG, CBC #### [address] Glucose [Mass/Vol] 154 mg/dL Normal [facility] Comment on above: Result Comment: [facility] Glucose Reference Range is dependent on time and content of last meal. Glucose of more than 200 mg/dL in a nonstressed, ambulatory subject supports the diagnosis of Diabetes Mellitus. PERFORMED BY: [place] [address] PATHOLOGIST COMPUTER INSTALLATION ENGINEER ALEX SALMERON M.D. Performed By: #### B MP, MG, CBC #### [address] Glucose [Mass/Vol] 134 mg/dL Normal [facility] Comment on above: Result Comment: [facility] Glucose Reference Range is dependent on time and content of last meal. Glucose of more than 200 mg/dL in a nonstressed, ambulatory subject supports the diagnosis of Diabetes Mellitus. PERFORMED BY: [place] [address] PATHOLOGIST COMPUTER INSTALLATION ENGINEER ALEX SALMERON M.D. Performed By: #### B MP, MG, CBC #### [address] Magnesiumon 10-12-2024 Magnesium [Mass/Vol] 1.7 mg/dL Low 1.9-2.7 [facility] Comment on above: Result Comment: PERF ORMED BY: [place] [address] PATHOLOGIST COMPUTER INSTALLATION ENGINEER ALEX SALMERON M.D. Performed By: #### G LULS #### Point of Care testing , Phosphate [Mass/volume] in S beto or PlasmaOrdered By: Loyda Carlos on 10-12-2024 Phosphate [Mass/Vol] Phosphate [Mass/vol ume] in Serum or Plasma 2.5-4.5 [facility] Phosphoruson 10-12-2024 Phosphate [Mass/Vol] 2.9 mg/dL Normal 2.5-4.5 [facility] Comment on above: Performed By: #### G LULS #### Point of Care testing , Protein [Mass/volume] in Ser um or PlasmaOrdered By: Loyda Carlos on 10-12-2024 Protein [Mass/Vol] Protein [Mass/volume ] in Serum or Plasma Low 6.4-8.9 [facility] Serum or plasma albumin/glob ulin mass ratioOrdered By: Loyda Carlos on 10-12-2024 Albumin/Globulin [Mass ratio] Serum or plasma albumin/globulin mass ratio [facility] C reactive protein [Mass/vol ume] in Serum or PlasmaOrdered By: Loyda Carlos on 10-11-2024 CRP [Mass/Vol] C reactive protein [Mass/volume] in Serum or Plasma High 0.0-0.5 [facility] C-Reactive Proteinon 025 C-Reactive Protein 2.5 mg/dL High 0.0-0.5 [facility] Comment on above: Result Comment: PERF ORMED BY: [place] [address] PATHOLOGIST COMPUTER INSTALLATION ENGINEER ALEX SALMERON M.D. Performed By: #### B MP, MG, CBC #### [address] Cells analyzed [#]Ordered By : Loyda Carlos on 10-11-2024 Cells analyzed Molgen (Bld/Tiss) [#] Cells analyzed [#] . [facility] Cells counted [#]Ordered By: Loyda Carlos on 10-11-2024 Cells counted Molgen (Bld/Tiss) [#] Total cell count . [facility] Cells karyotyped.total [#] i n Blood or TissueOrdered By: Loyda Carlos on 10-11-2024 Cells karyotyped.total (Bld/Tiss) [#] Cells karyotyped.total [#] in Blood or Tissue . [facility] Chrom Leuk/Lymph Cells Cary zon 10-11-2024 Chrom Leuk/Lymph Cells Analyz 0 Normal . [facility] Comment on above: Performed By: #### P TT, FIB-C, PT #### [address] Chrom Leuk/Lymph Cells Count edon 10-11-2024 Chrom Leuk/Lymph Cells Counted 0 Normal . [facility] Comment on above: Performed By: #### P TT, FIB-C, PT #### [facility] [address] [place] [address] [place] Chrom Leuk/Lymph Cells Karot ypon 10-11-2024 Chrom Leuk/Lymph Cells Karotyp 0 Normal . [facility] Comment on above: Performed By: #### P TT, FIB-C, PT #### [address] Chrom Leuk/Lymph Cytogen Res on 10-11-2024 Chrom Leuk/Lymph Cytogen Res Comment: Normal . [facility] Comment on above: Result Comment: NO M ITOTIC ACTIVITY Performed By: #### P TT, FIB-C, PT #### [address] Chrom Leuk/Lymph Dir Reviewo n 10-11-2024 Chrom Leuk/Lymph Dir Review Comment: Normal . [facility] Comment on above: Result Comment: Kyaw Marino, PhD, FACMG Performed at: [facility] [place] [address] [facility] [address], [place], [place] [id number] Household Appliance Installer: Felisha Rivera [facility], Phone: [phone] PERFORMED BY: [place] [address] PATHOLOGIST COMPUTER INSTALLATION ENGINEER ALEX SALMERON M.D. Performed By: #### P TT, FIB-C, PT #### [address] Chrom Leuk/Lymph GTG Band Re son 10-11-2024 Chrom Leuk/Lymph GTG Band Res N/A Normal . [facility] Comment on above: Performed By: #### P TT, FIB-C, PT #### [address] Chrom Leuk/Lymph Interpretat on 10-11-2024 Chrom Leuk/Lymph Interpretat Comment: Normal . [facility] Comment on above: Result Comment: [...] a whole genome SNP microarray (test code 038287) may be considered. The [email or web address] multi-gene genomic next generation sequencing panel (test code 212756) may also be considered. Testing can be performed on a residual sample, if available. Performed By: #### P TT, FIB-C, PT #### [address] Chromosome Leuk/Lymph Spec T yon 10-11-2024 Chromosome Leuk/Lymph Spec Ty Comment: Normal . [facility] Comment on above: Result Comment: BLOO D Performed By: #### P TT, FIB-C, PT #### [address] Chromosome analysis result i n ISCN expressionOrdered By: Loyda Carlos on 10-11-2024 Chr analysis result in ISCN expression Molgen Nom (Bld/Tiss) Chromosome analysis result in ISCN expression . [facility] Comment on above: NO MITOTIC ACTIVITY Clinical choke reamer [Stephanie ntifier] in SpecimenOrdered By: Loyda Carlos on 10-11-2024 Clinical choke reamer Nom (Unsp spec) [ID] Clinical choke reamer [Identifier] in Specimen . [facility] Comment on above: Jennie Marino, PhD, FACMGPerformed at: [facility] [id number] [facility] [place], [place], [place] [id number] Director: Felisha Rivera [facility], Phone: [phone] Complete Blood Count Auto Di ffon 10-11-2024 Basophils (Bld) [#/Vol] 0.0 10*3/uL Normal 0.0-0.2 [facility] Comment on above: Result Comment: PERF ORMED BY: [place] [address] PATHOLOGIST COMPUTER INSTALLATION ENGINEER ALEX SALMERON M.D. Performed By: #### B MP, MG, CBC #### [facility] [address] [place] [address] [place] Basophils/100 WBC (Bld) 0.8 % Normal . T [facility] Comment on above: Performed By: #### B MP, MG, CBC #### [facility] [address] [place] [address] [place] Eosinophils (Bld) [#/Vol] 0.0 10*3/uL Normal 0.0-0.45 [facility] Comment on above: Performed By: #### B MP, MG, CBC #### [place] [address] [place] Eosinophils/100 WBC (Bld) 1.1 % Normal . [facility] Comment on above: Performed By: #### B MP, MG, CBC #### [address] Erythrocyte distribution width (RBC) [Ratio] 13.3 % Normal 12.0-14.8 [facility] Comment on above: Performed By: #### B MP, MG, CBC #### [address] Hematocrit (Bld) [Volume fraction] 33.2 % Low 38.8-50.0 [facility] Comment on above: Performed By: #### B MP, MG, CBC #### [address] Hemoglobin (Bld) [Mass/Vol] 11.6 g/dL Low 13.0-17.0 [facility] Comment on above: Performed By: #### B MP, MG, CBC #### [address] Lymphocytes (Bld) [#/Vol] 0.6 10*3/uL Low 1.00-4.8 [facility] Comment on above: Performed By: #### B MP, MG, CBC #### [address] Lymphocytes/100 WBC (Bld) 22.0 % Normal . [facility] Comment on above: Performed By: #### B MP, MG, CBC #### [address] MCH (RBC) [Entitic mass] 33.7 pg Normal 27.5-35.2 [facility] Comment on above: Performed By: #### B MP, MG, CBC #### [address] MCV (RBC) [Entitic vol] 96.6 fL Normal 83.5-101 T [facility] Comment on above: Performed By: #### B MP, MG, CBC #### [address] Mean Corpuscular HGB Conc 34.9 g/dL Normal 32.5-35.6 [facility] Comment on above: Performed By: #### B MP, MG, CBC #### [address] Monocytes (Bld) [#/Vol] 0.3 10*3/uL Normal 0.0-0.8 [facility] Comment on above: Performed By: #### B MP, MG, CBC #### [address] Monocytes/100 WBC (Bld) 11.4 % Normal . [facility] Comment on above: Performed By: #### B MP, MG, CBC #### [address] Neutrophils (Bld) [#/Vol] 1.8 10*3/uL Normal 1.8-7.7 [facility] Comment on above: Performed By: #### B MP, MG, CBC #### [address] Neutrophils/100 WBC (Bld) 64.7 % Normal . [facility] Comment on above: Performed By: #### B MP, MG, CBC #### [address] NRBC% 0.1 /100{WBC} Normal 0-0.5 [facility] Comment on above: Performed By: #### B MP, MG, CBC #### [address] Platelet mean volume (Bld) [Entitic vol] 8.0 fL Normal 6.6-10.1 [facility] Comment on above: Performed By: #### B MP, MG, CBC #### [address] Platelets (Bld) [#/Vol] 73 10*3/uL Low 150-450 T [facility] Comment on above: Performed By: #### B MP, MG, CBC #### [place] [address] [place] RBC (Bld) [#/Vol] 3.44 10*6/uL Low 3.90-5.60 [facility] Comment on above: Performed By: #### B MP, MG, CBC #### [address] WBC (Bld) [#/Vol] 2.8 10*3/uL Low 4.1-10.5 [facility] Comment on above: Performed By: #### B MP, MG, CBC #### [address] Comprehensive Metabolic Pane cyndy 10-11-2024 Albumin [Mass/Vol] 3.0 g/dL Low 3.5-5.7 [facility] Comment on above: Performed By: #### B MP, MG, CBC #### [address] Albumin/Globulin [Mass ratio] 1.6 {ratio} Normal [facility] Comment on above: Performed By: #### B MP, MG, CBC #### [address] ALP [Catalytic activity/Vol] 48 U/L Normal 34-104 [facility] Comment on above: Performed By: #### B MP, MG, CBC #### [address] ALT [Catalytic activity/Vol] 29 U/L Normal 7-52 [facility] Comment on above: Performed By: #### B MP, MG, CBC #### [address] Anion gap [Moles/Vol] 6.7 mmol/L Normal 6.0-15.0 [facility] Comment on above: Performed By: #### B MP, MG, CBC #### [address] AST [Catalytic activity/Vol] 42 U/L High 13-39 [facility] Comment on above: Performed By: #### B MP, MG, CBC #### [address] [place] [address] [place] Bilirubin [Mass/Vol] 0.3 mg/dL Normal 0.3-1.0 [facility] Comment on above: Performed By: #### B MP, MG, CBC #### [facility] [address] Calcium [Mass/Vol] 7.5 mg/dL Low 8.6-10.3 [facility] Comment on above: Performed By: #### B MP, MG, CBC #### [address] Chloride [Moles/Vol] 113 mmol/L High 98-107 [facility] Comment on above: Performed By: #### B MP, MG, CBC #### [address] CO2 [Moles/Vol] 23.2 mmol/L Normal 21.0-31.0 [facility] Comment on above: Performed By: #### B MP, MG, CBC #### [address] Creatinine [Mass/Vol] 1.16 mg/dL Normal 0.70-1.30 [facility] Comment on above: Performed By: #### B MP, MG, CBC #### [place] [address] [place] Creatinine Clr Calc Pharmacy 57.83 Normal [facility] Comment on above: Performed By: #### B MP, MG, CBC #### [place] [address] [place] GFR/1.73 sq M.predicted MDRD (S/P/Bld) [Vol rate/Area] mL/min/{1.73_m2} Normal [facility] Comment on above: Performed By: #### B MP, MG, CBC #### [address] Globulin (S) [Mass/Vol] 1.9 g/dL Normal T [facility] Comment on above: Performed By: #### B MP, MG, CBC #### [facility] [address] Glucose [Mass/Vol] 106 mg/dL High 70-100 [facility] Comment on above: Result Comment: [facility] Glucose Reference Range is dependent on time and content of last meal. Glucose of more than 200 mg/dL in a nonstressed, ambulatory subject supports the diagnosis of Diabetes Mellitus. ADA recommended reference range Performed By: #### B MP, MG, CBC #### [address] Potassium [Moles/Vol] 3.9 mmol/L Normal 3.5-5.1 [facility] Comment on above: Performed By: #### B MP, MG, CBC #### [address] Protein [Mass/Vol] 4.9 g/dL Low 6.4-8.9 [facility] Comment on above: Performed By: #### B MP, MG, CBC #### [address] Sodium [Moles/Vol] 139 mmol/L Normal 136-145 [facility] Comment on above: Performed By: #### B MP, MG, CBC #### [address] Urea nitrogen [Mass/Vol] 12 mg/dL Normal 7-25 [facility] Comment on above: Performed By: #### B MP, MG, CBC #### [address] Copperon 10-11-2024 Copper 76 ug/dL Normal 69-132 [facility] Comment on above: Result Comment: This test was developed and its performance characteristics determined by [employer]. It has not been cleared or approved by the Food and Drug Administration. Detection Limit = 5 Performed at: [address] [id number] Household Appliance Installer: Yadira Gallegos MD, Phone: [phone] Performed By: #### P TT, FIB-C, PT #### [address] Copper measurementOrdered By : Angelo Iglesias on 10-11-2024 Basophil percentage Basophil percentage 69-132 [facility] Comment on above: This test was develo ped and its performance characteristicsdetermined by [facility]. It has not been cleared orapproved by the Food and Drug Administration. Detection Limit = 5Performed at: [facility] Lab[address] [id number] Director: Yadira Gallegos MD, Phone: [phone] Diagnostic impression [Inter pretation] in Specimen NarrativeOrdered By: Loyda Carlos on 10-11-2024 Diagnostic impression [employer] Yovany (Unsp spec) [Interp] Diagnostic impression [Interpretation] in Specimen Narrative . [facility] Comment on above: NO RESULT Cytogeneti c analysis of GTG banded metaphases fromunstimulated cultures revealed no mitotic activity. Thesample submitted appeared to be blood. Generally, 5% blastsin the peripheral circulation are necessary to obtaincytogenetic results. Bone marrow is recommended for theanalysis of disorders with blasts below that percentage. Interphase FISH analysis using indication specifictargeted probes or a whole genome SNP microarray (test [id number]) may be considered. The [email or web address] multi-genegenomic next generation sequencing panel (test code [id number])may also be considered. Testing can be performed on aresidual sample, if available. Erythrocyte Sedimentation Ra stacey 10-11-2024 ESR (Bld) [Velocity] 14 mm/h Normal 0-19 [facility] Comment on above: Result Comment: PERF ORMED BY: [place] [id number] PATHOLOGIST COMPUTER INSTALLATION ENGINEER ALEX SALMERON M.D. Performed By: #### P TT, FIB-C, PT #### [address] Erythrocyte sedimentation ra te by Photometric methodOrdered By: Loyda Carlos on 10-11-2024 ESR Photometric method (Bld) [Velocity] Erythrocyte sedimentation rate by Photometric method 0-19 [facility] Ferritinon 10-11-2024 Ferritin [Mass/Vol] 131.0 ng/mL Normal 23.9-336.2 [facility] Comment on above: Order Comment: Comme nt add Performed By: #### P TT, FIB-C, PT #### [facility] [address] [place] [address] [place] Ferritin [Mass/volume] in Se rum or PlasmaOrdered By: Loyda Carlos on 10-11-2024 Ferritin [Mass/Vol] Ferritin [Mass/volum e] in Serum or Plasma 23.9-336.2 [facility] Fibrinogenon 10-11-2024 Fibrinogen 353 mg/dL Normal 200-393 [facility] Comment on above: Result Comment: A he matocrit value greater than 55% may lead to inaccurate results in coagulation testing. Patients having hematocrit values >55% require a special collection tube for coagulation studies. Please contact the laboratory at [phone] for redraw instructions. PERFORMED BY: [place] [address] PATHOLOGIST COMPUTER INSTALLATION ENGINEER ALEX SALMERON M.D. Performed By: #### P TT, FIB-C, PT #### [facility] [address] [place] [address] [facility] Fibrinogen [Mass/volume] in Platelet poor plasma by Coagulation assayOrdered By: Angelo Iglesias on 10-11-2024 Fibrinogen Coag (PPP) [Mass/Vol] Fibrinogen [Mass/volume] in Platelet poor plasma by Coagulation assay 200-393 [facility] Comment on above: A hematocrit value g reater than 55% may lead to inaccurate results in coagulation testing. Patients having hematocrit values >55% require a special collection tube for coagulation studies. Please contact the laboratory at [phone] for redraw instructions. Folate [Mass/volume] in Seru m or PlasmaOrdered By: Loyda Carlos on 10-11-2024 Folate [Mass/Vol] Folate [Mass/volume] in Serum or Plasma >5.9 [facility] Comment on above: Folate reference ran ge: >5.9 ng/mlThe WHO technical consultation on folate and vitamin [id number] has determined that folate concentrations lessthan 4 ng/ml are considered deficient. Glucose Poct Glucometerson 0 10-11-2024 Glucose [Mass/Vol] 200 mg/dL Normal [facility] Comment on above: Result Comment: [place] [facility] Glucose Reference Range is dependent on time and content of last meal. Glucose of more than 200 mg/dL in a nonstressed, ambulatory subject supports the diagnosis of Diabetes Mellitus. PERFORMED BY: [place] [address] PATHOLOGIST COMPUTER INSTALLATION ENGINEER ALEX SALMERON M.D. Performed By: #### P TT, FIB-C, PT #### [facility] [address] [place] [address] Commemt1 Glu2: Cleaned Meter Normal [facility] Comment on above: Result Comment: PERF ORMED BY: [place] [address] PATHOLOGIST COMPUTER INSTALLATION ENGINEER ALEX SALMERON M.D. Performed By: #### G LULS #### Point of Care testing , Glucose [Mass/Vol] 134 mg/dL Normal [facility] Comment on above: Result Comment: [place] [facility] Glucose Reference Range is dependent on time and content of last meal. Glucose of more than 200 mg/dL in a nonstressed, ambulatory subject supports the diagnosis of Diabetes Mellitus. Performed By: #### G LULS #### Point of Care testing , Glucose [Mass/Vol] 147 mg/dL Normal [facility] Comment on above: Result Comment: [place] [facility] Glucose Reference Range is dependent on time and content of last meal. Glucose of more than 200 mg/dL in a nonstressed, ambulatory subject supports the diagnosis of Diabetes Mellitus. PERFORMED BY: [place] [address] PATHOLOGIST COMPUTER INSTALLATION ENGINEER ALEX SALMERON M.D. Performed By: #### G LULS #### Point of Care testing , HCV Antibody Cascadeon 10-11 Hepatitis C Virus Antibody Non-Reactive Normal Non Reactive [facility] Comment on above: Performed By: #### P TT, FIB-C, PT #### [facility] [address] [place] [address] Interpretation Hepatitis C Comment Normal . [facility] Comment on above: Result Comment: Not infected with HCV unless early or acute infection is suspected (which may be delayed in an immunocompromised individual), or other evidence exists to indicate HCV infection. Performed at: [address] [id number] Household Appliance Installer: Juan José Butler PhD, Phone: [phone] PERFORMED BY: [place] [address] PATHOLOGIST COMPUTER INSTALLATION ENGINEER ALEX SALMERON M.D. Performed By: #### P TT, FIB-C, PT #### [facility] [address] [place], [place] [id number] [facility] HIV 1/O/2 Antigen/Antibodyon 10-11-2024 HIV Screen 4th Generation Non-Reactive Normal Non Reactive [facility] Comment on above: Result Comment: HIV- 1/HIV-2 antibodies and HIV-1 p24 antigen were NOT detected. There is no laboratory evidence of HIV infection. HIV Negative Performed at: [place] [id number] Household Appliance Installer: Juan José Butler PhD, Phone: [phone] PERFORMED BY: [place] [address] PATHOLOGIST COMPUTER INSTALLATION ENGINEER ALEX SALMERON M.D. Performed By: #### P TT, FIB-C, PT #### [facility] [address] [place], [place] [id number] [facility] HIV antibody and antigen woodson elOrdered By: Angelo Iglesias on 10-11-2024 HIV 1+2 Ab+HIV1 p24 Ag IA Ql HIV 1 and HIV-2 antibody assay with HIV-1 p24 antigen detection Non Reactive [facility] Comment on above: HIV-1/HIV-2 antibodi es and HIV-1 p24 antigen were NOTdetected. There is no laboratory evidence of HIV infection.HIV NegativePerformed at: [address] [id number] Director: Juan José Butler PhD, Phone: [phone] Hepatitis B Core Antibodyon 10-11-2024 Hepatitis B Core Antibody Negative Normal Negative [facility] Comment on above: Performed By: #### P TT, FIB-C, PT #### [facility] [address] [place] [address] [place] Hepatitis B Core Antibody Ig Mon 10-11-2024 Hepatitis B Core Antibody IgM Negative Normal Negative [facility] Comment on above: Result Comment: Perf ormed at: CB - [facility] [address] [place], [place] [id number] Household Appliance Installer: Juan José Butler PhD, Phone: [phone] Performed By: #### P TT, FIB-C, PT #### [address] Hepatitis B Surface Antibody on 10-11-2024 Hepatitis B Surface Antibody Non-Reactive Normal . [facility] Comment on above: Result Comment: Non Reactive: Not immune to HBV infection. Equivocal: Unable to determine if anti-HBs is present at levels consistent with immunity. Reactive: Anti-HBs concentration detected at greater than 10 mIU/mL. Individual is considered to be immune to infection with HBV. Performed By: #### P TT, FIB-C, PT #### [facility] [address] [place] [address] Hepatitis B Surface Antigeno n 10-11-2024 HBsAg Screen Negative Normal Negative [facility] Comment on above: Result Comment: PERF ORMED BY: [place] [address] PATHOLOGIST COMPUTER INSTALLATION ENGINEER ALEX SALMERON M.D. Performed By: #### P TT, FIB-C, PT #### [facility] [address] [place] [address] Hepatitis B virus core IgM a ntibody assayOrdered By: Angelo Iglesias on 10-11-2024 Hepatitis B Core IgM Antibody Negative Negative [facility] Comment on above: Performed at: CB - [facility] [id number] [place], [place] [id number] Director: Juan José Butler PhD, Phone: [phone] Hepatitis B virus core antib roxanne assayOrdered By: Angelo Iglesias on 10-11-2024 Hepatitis B Core Total Antibody Negative Negative [facility] Hepatitis C virus IgG Ab [Pr esence] in Serum or Plasma by ImmunoassayOrdered By: Angelo Iglesias on 10-11-2024 HCV IgG IA Ql Hepatitis C virus Ig G Ab [Presence] in Serum or Plasma by Immunoassay Non Reactive [facility] INR in Platelet poor plasma by Coagulation assayOrdered By: Angelo Iglesias on 10-11-2024 INR Coag (PPP) [Relative time] INR in Platelet poor plasma by Coagulation assay [facility] Comment on above: INR Therapeutic Rang e [...] (Bld/Tiss) ISCN band level [#] Qualitative . [facility] Iron [Mass/volume] in Serum or PlasmaOrdered By: Loyda Carlos on 10-11-2024 Iron [Mass/Vol] Iron [Mass/volume] i n Serum or Plasma 50-212 [facility] Iron and TIBC Profileon % Iron Saturation 44.2 % Normal 20-50 [facility] Comment on above: Order Comment: Comme nt add Performed By: #### P TT, FIB-C, PT #### [facility] [address] [place] [id number] [facility] Iron [Mass/Vol] 118 ug/dL Normal 50-212 [facility] Comment on above: Order Comment: Comme nt add Performed By: #### P TT, FIB-C, PT #### [facility] [address] [place] [id number] [facility] Total Iron Binding Capacity 267 ug/dL Normal 255-450 [facility] Comment on above: Order Comment: Comme nt add Performed By: #### P TT, FIB-C, PT #### [facility] [address] Transferrin [Mass/Vol] 191 mg/dL Low 203-362 [facility] Comment on above: Order Comment: Comme nt add Performed By: #### P TT, FIB-C, PT #### [facility] [address] [place] [address] Karyotype identification (no marty result)Ordered By: Loyda Carlos on 10-11-2024 Karyotype Nom (Unsp spec) Karyotype identification nominal [facility] LDH Lactate Dehydrogenaseon 10-11-2024 LDH Lactate Dehydrogenase 199 U/L Normal 140-271 [facility] Comment on above: Order Comment: Comme nt add Performed By: #### P TT, FIB-C, PT #### [facility] [address] [place] [address] Lactate dehydrogenase [Enzym atic activity/volume] in Serum or Plasma by Lactate to pyOrdered By: Loyda Carlos on 10-11-2024 LDH Lactate to pyruvate reaction [Catalytic activity/Vol] Lactate dehydrogenase [Enzymatic activity/volume] in Serum or Plasma by Lactate to py 140-271 [facility] Magnesiumon 10-11-2024 Magnesium [Mass/Vol] 1.7 mg/dL Low 1.9-2.7 [facility] Comment on above: Result Comment: PERF ORMED BY: [place] [address] PATHOLOGIST COMPUTER INSTALLATION ENGINEER ALEX SALMERON M.D. Performed By: #### B MP, MG, CBC #### [facility] [address] [place] [address] No Panel InformationOrdered By: Angelo Iglesias on 10-11-2024 Hepatitis C Interpretation Comment . [facility] Comment on above: Not infected with HC V unless early or acute infection issuspected (which may be delayed in an immunocompromisedindividual), or other evidence exists to indicate HCVinfection.Performed at: - [facility] [id number] Director: Juan José Butler PhD, Phone: [phone] Partial Thromboplastin Timeo n 10-11-2024 aPTT Coag (Bld) [Time] 27.9 s Normal 25.1-36.5 [facility] Comment on above: Result Comment: A he matocrit value greater than 55% may lead to inaccurate results in coagulation testing. Patients having hematocrit values >55% require a special collection tube for coagulation studies. Please contact the laboratory at [phone] for redraw instructions. Performed By: #### P TT, FIB-C, PT #### [facility] [address] [place] [address] [facility] Prothrombin Time INRon 10-11 INR Coag (PPP) [Relative time] 0.9 {INR} Normal [facility] Comment on above: Result Comment: [...] By: #### P TT, FIB-C, PT #### [facility] [address] [place] [address] [facility] PT Coag (PPP) [Time] 9.9 s Normal 9.0-12.9 [facility] Comment on above: Result Comment: A he matocrit value greater than 55% may lead to inaccurate results in coagulation testing. Patients having hematocrit values >55% require a special collection tube for coagulation studies. Please contact the laboratory at [phone] for redraw instructions. Performed By: #### P TT, FIB-C, PT #### [facility] [address] [place] [address] [facility] Prothrombin time (PT)Ordered By: Angelo Iglesias on 10-11-2024 PT Coag (PPP) [Time] Prothrombin time (PT) 9.0- 12.9 [facility] Comment on above: A hematocrit value g reater than 55% may lead to inaccurate results in coagulation testing. Patients having hematocrit values >55% require a special collection tube for coagulation studies. Please contact the laboratory at [phone] for redraw instructions. Reticulocyte Counton 025 Reticulocyte Number 0.035 10*6/uL Normal 0.024-0 .08 4 [facility] Comment on above: Performed By: #### P TT, FIB-C, PT #### [facility] [address] Reticulocyte Percent 0.9 % Normal 0.5-1.5 [facility] Comment on above: Performed By: #### P TT, FIB-C, PT #### [facility] [address] [place] [address] [place] Reticulocytes [#/volume] in BloodOrdered By: Loyda Carlos on 10-11-2024 Reticulocytes (Bld) [#/Vol] Absolute reticulocyte count 0.024-0.08 4 [facility] Reticulocytes/100 RBC Auto ( Bld)Ordered By: Loyda Carlos on 10-11-2024 Reticulocytes/100 RBC (Bld) Reticulocyte % auto 0.5-1.5 [facility] Serum hepatitis B virus surf linda antibody detectionOrdered By: Angelo Iglesias on 10-11-2024 HBV surface Ab Ql (S) Hepatitis B virus surface Ab [Presence] in Serum . [facility] Comment on above: Non Reactive: Not im [...] in Serum or Plasma by Immunoassay Negative [facility] Serum or plasma iron binding capacity measurement (mass/volume)Ordered By: Loyda Carlos on 10-11-2024 Iron binding capacity [Mass/Vol] Iron binding capacity [Mass/volume] in Serum or Plasma 255-450 [facility] Serum or plasma iron saturat ion measurement (mass fraction)Ordered By: Loyda Carlos on 10-11-2024 Iron saturation [Mass fraction] Iron saturation [Mass Fraction] in Serum or Plasma 20-50 [facility] Specimen source identifiedOr dered By: Loyda Carlos on 10-11-2024 Specimen source Nom (Unsp spec) Specimen source identified . [facility] Comment on above: BLOOD Thyroid Stimulating Hormoneo n 10-11-2024 TSH Qn 1.83 m[IU]/L Normal 0.45-5.33 [facility] Comment on above: Order Comment: Comme nt add Result Comment: PERF ORMED BY: [place] [address] PATHOLOGIST COMPUTER INSTALLATION ENGINEER ALEX SALMERON M.D. Performed By: #### P TT, FIB-C, PT #### [facility] [address] [place] [address] Thyrotropin [Units/volume] i n Serum or PlasmaOrdered By: Loyda Carlos on 10-11-2024 TSH Qn Thyrotropin [Units/v olume] in Serum or Plasma 0.45-5.33 [facility] Transferrin [Mass/volume] in Serum or PlasmaOrdered By: Loyda Carlos on 10-11-2024 Transferrin [Mass/Vol] Transferrin [Mass /volume] in Serum or Plasma Low 203-362 [facility] Vit. B12/Folate Profileon Cobalamin (Vitamin B12) [Mass/Vol] 542 pg/mL Normal 180-914 [facility] Comment on above: Order Comment: Comme nt add Performed By: #### P TT, FIB-C, PT #### [facility] [address] [place] [address] Folate 19.0 ng/mL Normal >5.9 [facility] Comment on above: Order Comment: Comme nt add Result Comment: Kalli te reference range: >5.9 ng/ml The WHO technical consultation on folate and vitamin b12 deficiencies has determined that folate concentrations less than 4 ng/ml are considered deficient. Performed By: #### P TT, FIB-C, PT #### [facility] [address] [place] [address] Vitamin B12 ser/plasOrdered By: Loyda Carlos on 10-11-2024 Cobalamin (Vitamin B12) [Mass/Vol] Vitamin B12 ser/plas 180-234 [facility] aPTT in Platelet poor plasma by Coagulation assayOrdered By: Angelo Iglesias on 10-11-2024 aPTT Coag (PPP) [Time] Activated partial thromboplastin time (aPTT) in platelet poor plasma by coagulation a 25.1-36.5 [facility] Comment on above: A hematocrit value g reater than 55% may lead to inaccurate results in coagulation testing. Patients having hematocrit values >55% require a special collection tube for coagulation studies. Please contact the laboratory at [phone] for redraw instructions. Anisocytosis LM Ql (Bld)Orde red By: Loyda Carlos on 10-10-2024 Anisocytosis Ql (Bld) Anisocytosis [Pres ence] in Blood by Light microscopy [facility] Campy coli+jejuni BD MaxOrde red By: Lakesha Haskins on 10-10-2024 C. coli+jejuni tuf gene ABE+probe Ql (Stl) Campy coli+jejuni BD Max Negative [facility] Comment on above: Campylobacter test i ncludes C. jejuni and C. coli. Chloride [Moles/volume] in S toolOrdered By: Loyda Carlos on 10-10-2024 Chloride (Stl) [Moles/Vol] Chloride [Moles/volume] in Stool . [facility] Comment on above: INTERPRETIVE INFORMA TION: Fecal ChlorideA reference interval has not been established for fecal specimens.This test was developed and its performance characteristicsdetermined by [facility]. It has not been cleared orapproved by the [place] Food and Drug Administration. This test wasperformed in a CLIA certified laboratory and is intended forclinical purposes.Performed at: [facility] [address] [id number] Director: Chang House [facility], Phone: [phone] Comprehensive Metabolic Pane cyndy 10-10-2024 Albumin [Mass/Vol] 2.9 g/dL Low 3.5-5.7 [facility] Comment on above: Performed By: #### G KRYSTALLS #### Point of Care testing , Albumin/Globulin [Mass ratio] 1.5 {ratio} Normal [facility] Comment on above: Performed By: #### G KRYSTALLS #### Point of Care testing , ALP [Catalytic activity/Vol] 48 U/L Normal 34-104 [facility] Comment on above: Performed By: #### G KRYSTALLS #### Point of Care testing , ALT [Catalytic activity/Vol] 26 U/L Normal 7-52 [facility] Comment on above: Performed By: #### G KRYSTALLS #### Point of Care testing , Anion gap [Moles/Vol] 7.2 mmol/L Normal 6.0-15.0 [facility] Comment on above: Performed By: #### G KRYSTALLS #### Point of Care testing , AST [Catalytic activity/Vol] 52 U/L High 13-39 [facility] Comment on above: Performed By: #### G KRYSTALLS #### Point of Care testing , Bilirubin [Mass/Vol] 0.2 mg/dL Low 0.3-1.0 [facility] Comment on above: Performed By: #### G KRYSTALLS #### Point of Care testing , Calcium [Mass/Vol] 7.4 mg/dL Low 8.6-10.3 [facility] Comment on above: Performed By: #### G KRYSTALLS #### Point of Care testing , Chloride [Moles/Vol] 115 mmol/L High 98-107 [facility] Comment on above: Performed By: #### G KRYSTALLS #### Point of Care testing , CO2 [Moles/Vol] 19.4 mmol/L Low 21.0-31.0 [facility] Comment on above: Performed By: #### G KRYSTALLS #### Point of Care testing , Creatinine [Mass/Vol] 1.33 mg/dL Significan t change up 0.70-1.30 [facility] Comment on above: Performed By: #### G KRYSTALLS #### Point of Care testing , Creatinine Clr Calc Pharmacy 50.57 Normal [facility] Comment on above: Performed By: #### G LULS #### Point of Care testing , Estimated GFR 52.056 mL/Min Normal [facility] Comment on above: Performed By: #### G LULS #### Point of Care testing , Globulin (S) [Mass/Vol] 1.9 g/dL Normal [facility] Comment on above: Performed By: #### G LULS #### Point of Care testing , Glucose [Mass/Vol] 105 mg/dL High 70-100 [facility] Comment on above: Result Comment: [facility] Glucose Reference Range is dependent on time and content of last meal. Glucose of more than 200 mg/dL in a nonstressed, ambulatory subject supports the diagnosis of Diabetes Mellitus. ADA recommended reference range Performed By: #### G LULS #### Point of Care testing , Potassium [Moles/Vol] 3.6 mmol/L Normal 3.5-5.1 [facility] Comment on above: Performed By: #### G LULS #### Point of Care testing , Protein [Mass/Vol] 4.8 g/dL Low 6.4-8.9 [facility] Comment on above: Performed By: #### G LULS #### Point of Care testing , Sodium [Moles/Vol] 138 mmol/L Normal 136-145 [facility] Comment on above: Performed By: #### G LULS #### Point of Care testing , Urea nitrogen [Mass/Vol] 21 mg/dL Normal 7-25 [facility] Comment on above: Performed By: #### G LULS #### Point of Care testing , Cryptosporidium Antigen [facility] 10-10-2024 Cryptosporidium Antigen Stool Negative Normal Negative [facility] Comment on above: Order Comment: SOURC E OF SPECIMEN: Stool Result Comment: Perf ormed at: CB - [facility] [address] [id number] Household Appliance Installer: Juan José Butler PhD, Phone: [phone] Performed By: #### B MP, MG, CBC #### [facility] [address] Cryptosporidium parv+homin B D MaxOrdered By: Loyda Carlos on 10-10-2024 C. parvum+hominis DNA ABE+probe Ql (Stl) Cryptosporidium parv+homin BD Max Negative [facility] Comment on above: Cryptosporidium test includes C. hominis and C. parvum. Cryptosporidium sp Ag [Prese nce] in Stool by ImmunoassayOrdered By: Loyda Carlos on 10-10-2024 Cryptosporidium sp Ag IA Ql (Stl) Cryptosporidium sp Ag [Presence] in Stool by Immunoassay Negative [facility] Comment on above: Performed at: - [facility] [place] [address]Lab Director: Juan José Butler PhD, Phone: [phone] Entamoeba histolytica BD Max Ordered By: Loyda Carlos on 10-10-2024 E. histolytica DNA ABE+probe Ql (Stl) Entamoeba histolytica BD Max Negative [facility] Comment on above: Testing performed by RT-PCR Erythrocyte morphology findi ng [Identifier] in BloodOrdered By: Loyda Carlos on 10-10-2024 RBC morphology finding Nom (Bld) RBC morphology [facility] Giardia Lamblia Ag EIA Stool on 10-10-2024 Giardia Lamblia Ag EIA Stool Negative Normal Negative [facility] Comment on above: Order Comment: SOURC E OF SPECIMEN: Stool Result Comment: Perf ormed at: - [facility] [place] [address] Household Appliance Installer: Juan José Butler PhD, Phone: [phone] PERFORMED BY: [place] [address] PATHOLOGIST COMPUTER INSTALLATION ENGINEER ALEX SALMERON M.D. Performed By: #### B MP, MG, CBC #### [address] Giardia milian BD MaxOrdered By : Loyda Carlos on 10-10-2024 G. lamblia DNA ABE+probe Ql (Stl) Giardia milian BD Max Negative [facility] Giardia lamblia Ag [Presence ] in Stool by ImmunoassayOrdered By: Loyda Carlos on 10-10-2024 G. lamblia Ag IA Ql (Stl) Giardia lamblia Ag [Presence] in Stool by Immunoassay Negative [facility] Comment on above: Performed at: [address] [id number] Director: Juan José Butler PhD, Phone: [phone] Glucose Poct Glucometerson 0 10-10-2024 Glucose [Mass/Vol] 134 mg/dL Normal [facility] Comment on above: Result Comment: [facility] Glucose Reference Range is dependent on time and content of last meal. Glucose of more than 200 mg/dL in a nonstressed, ambulatory subject supports the diagnosis of Diabetes Mellitus. PERFORMED BY: [place] [address] PATHOLOGIST COMPUTER INSTALLATION ENGINEER ALEX SALMERON M.D. Performed By: #### G LULS #### Point of Care testing , Commemt1 Glu2: Cleaned Meter Normal [facility] Comment on above: Result Comment: PERF ORMED BY: [place] [address] PATHOLOGIST COMPUTER INSTALLATION ENGINEER ALEX SALMERON M.D. Performed By: #### G LULS #### Point of Care testing , Glucose [Mass/Vol] 138 mg/dL Normal [facility] Comment on above: Result Comment: [place] Glucose Reference Range is dependent on time and content of last meal. Glucose of more than 200 mg/dL in a nonstressed, ambulatory subject supports the diagnosis of Diabetes Mellitus. Performed By: #### G LULS #### Point of Care testing , Commemt1 Glu2: Cleaned Meter Normal [facility] Comment on above: Result Comment: PERF ORMED BY: [place] [address] PATHOLOGIST COMPUTER INSTALLATION ENGINEER ALEX SALMERON M.D. Performed By: #### G LULS #### Point of Care testing , Glucose [Mass/Vol] 146 mg/dL Normal [facility] Comment on above: Result Comment: [place] Glucose Reference Range is dependent on time and content of last meal. Glucose of more than 200 mg/dL in a nonstressed, ambulatory subject supports the diagnosis of Diabetes Mellitus. Performed By: #### G LULS #### Point of Care testing , Glucose [Mass/Vol] 99 mg/dL Normal [facility] Comment on above: Result Comment: [facility] Glucose Reference Range is dependent on time and content of last meal. Glucose of more than 200 mg/dL in a nonstressed, ambulatory subject supports the diagnosis of Diabetes Mellitus. PERFORMED BY: [facility] [address] [place] [address] PATHOLOGIST COMPUTER INSTALLATION ENGINEER ALEX SALMERON M.D. Performed By: #### G LULS #### Point of Care testing , Iron and TIBC Profileon % Iron Saturation 14.1 % Low 20-50 [facility] Comment on above: Performed By: #### G LULS #### Point of Care testing , Iron [Mass/Vol] 29 ug/dL Low 50-212 [facility] Comment on above: Performed By: #### G LULS #### Point of Care testing , Total Iron Binding Capacity 206 ug/dL Low 255-450 [facility] Comment on above: Performed By: #### G LULS #### Point of Care testing , Transferrin [Mass/Vol] 147 mg/dL Low 203-362 [facility] Comment on above: Performed By: #### G LULS #### Point of Care testing , Magnesiumon 10-10-2024 Magnesium [Mass/Vol] 1.8 mg/dL Low 1.9-2.7 [facility] Comment on above: Result Comment: PERF ORMED BY: [facility] [address] [place] [address] PATHOLOGIST COMPUTER INSTALLATION ENGINEER ALEX SALMERON M.D. Performed By: #### G LULS #### Point of Care testing , Ova and Parasite Panelon Cryptosporidium (C.hominis+par Negative Normal Negative [facility] Comment on above: Result Comment: Cryp tosporidium test includes C. hominis and C. parvum. Performed By: #### B MP, MG, CBC #### [facility] [address] Entamoeba histolytica Negative Normal Negative [facility] Comment on above: Result Comment: Test ing performed by RT-PCR PERFORMED BY: [place] [address] PATHOLOGIST COMPUTER INSTALLATION ENGINEER ALEX SALMERON M.D. Performed By: #### B MP, MG, CBC #### [facility] [address] Giardia lamblia Negative Normal Negative [facility] Comment on above: Performed By: #### B MP, MG, CBC #### [facility] [address] Ovalocytes [Presence] in Blo od by Light microscopyOrdered By: Loyda Carlos on 10-10-2024 Ovalocytes LM Ql (Bld) Ovalocyte detection [facility] Phosphoruson 10-10-2024 Phosphate [Mass/Vol] 2.4 mg/dL Low 2.5-4.5 [facility] Comment on above: Performed By: #### G LULS #### Point of Care testing , Platelet adequacy [Presence] in Blood by Light microscopyOrdered By: Loyda Carlos on 10-10-2024 Platelets LM Ql (Bld) Platelet adequacy [Presence] in Blood by Light microscopy Normal [facility] Platelet morphology finding [Identifier] in BloodOrdered By: Loyda Carlos on 10-10-2024 Platelet morphology finding Nom (Bld) Platelet morphology finding [Identifier] in Blood Normal [facility] Poikilocytosis [Presence] in Blood by Light microscopyOrdered By: Loyda Carlos on 10-10-2024 Poikilocytosis LM Ql (Bld) Poikilocytosis [Presence] in Blood by Light microscopy [facility] Potassium [Moles/volume] in StoolOrdered By: Loyda Carlos on 10-10-2024 Potassium (Stl) [Moles/Vol] Potassium [Moles/volume] in Stool . [facility] Comment on above: INTERPRETIVE INFORMA TION: Fecal PotassiumA reference interval has not been established for fecal specimens.This test was developed and its performance characteristicsdetermined by [facility]. It has not been cleared orapproved by the [place] Food and Drug Administration. This test wasperformed in a CLIA certified laboratory and is intended forclinical purposes. Salmonellosis BD MaxOrdered By: Lakesha Haskins on 10-10-2024 Salmonella sp spaO gene ABE+probe Ql (Stl) Salmonella sp spaO gene [Presence] in Stool by ABE with probe detection Negative [facility] Comment on above: Testing performed by RT-PCR Scan and CBCon 10-10-2024 Anisocytosis Ql (Bld) Slight Normal [facility] Comment on above: Performed By: #### G LULS #### Point of Care testing , Basophils (Bld) [#/Vol] 0.0 10*3/uL Normal 0.0-0.2 [facility] Comment on above: Performed By: #### G LULS #### Point of Care testing , Basophils/100 WBC (Bld) 0.6 % Normal . [facility] Comment on above: Performed By: #### G LULS #### Point of Care testing , Eosinophils (Bld) [#/Vol] 0.0 10*3/uL Normal 0.0-0.45 [facility] Comment on above: Performed By: #### G LULS #### Point of Care testing , Eosinophils/100 WBC (Bld) 0.5 % Normal . [facility] Comment on above: Performed By: #### G LULS #### Point of Care testing , Erythrocyte distribution width (RBC) [Ratio] 13.7 % Normal 12.0-14.8 [facility] Comment on above: Performed By: #### G LULS #### Point of Care testing , Hematocrit (Bld) [Volume fraction] 32.9 % Low 38.8-50.0 [facility] Comment on above: Performed By: #### G LULS #### Point of Care testing , Hemoglobin (Bld) [Mass/Vol] 11.4 g/dL Low 13.0-17.0 [facility] Comment on above: Performed By: #### G LULS #### Point of Care testing , Lymphocytes (Bld) [#/Vol] 0.5 10*3/uL Low 1.00-4.8 [facility] Comment on above: Performed By: #### G LULS #### Point of Care testing , Lymphocytes/100 WBC (Bld) 11.5 % Normal . [facility] Comment on above: Performed By: #### G LULS #### Point of Care testing , MCH (RBC) [Entitic mass] 34.0 pg Normal 27.5-35.2 [facility] Comment on above: Performed By: #### G LULS #### Point of Care testing , MCV (RBC) [Entitic vol] 97.8 fL Normal 83.5-101 [facility] Comment on above: Performed By: #### G LULS #### Point of Care testing , Mean Corpuscular HGB Conc 34.8 g/dL Normal 32.5-35.6 [facility] Comment on above: Performed By: #### G LULS #### Point of Care testing , Monocytes (Bld) [#/Vol] 0.8 10*3/uL Normal 0.0-0.8 [facility] Comment on above: Performed By: #### G LULS #### Point of Care testing , Monocytes/100 WBC (Bld) 18.2 % Normal . [facility] Comment on above: Performed By: #### G LULS #### Point of Care testing , Neutrophils (Bld) [#/Vol] 3.2 10*3/uL Normal 1.8-7.7 [facility] Comment on above: Performed By: #### G LULS #### Point of Care testing , Neutrophils/100 WBC (Bld) 69.2 % Normal . [facility] Comment on above: Performed By: #### G LULS #### Point of Care testing , NRBC% 0.1 /100{WBC} Normal 0-0.5 [facility] Comment on above: Performed By: #### G LULS #### Point of Care testing , Ovalocytes Slight Normal [facility] Comment on above: Performed By: #### G LULS #### Point of Care testing , Platelet Estimate Decreased Normal Normal [facility] Comment on above: Performed By: #### G LULS #### Point of Care testing , Platelet mean volume (Bld) [Entitic vol] 8.3 fL Normal 6.6-10.1 [facility] Comment on above: Performed By: #### G LULS #### Point of Care testing , Platelet Morphology Normal Normal Normal [facility] Comment on above: Result Comment: PERF ORMED BY: [facility] [address] [place] [address] PATHOLOGIST COMPUTER INSTALLATION ENGINEER ALEX SALMERON M.D. Performed By: #### G LULS #### Point of Care testing , Platelets (Bld) [#/Vol] 71 10*3/uL Signific ant change down 150-450 [facility] Comment on above: Performed By: #### G LULS #### Point of Care testing , Poikilocytosis Slight Normal [facility] Comment on above: Performed By: #### G LULS #### Point of Care testing , RBC (Bld) [#/Vol] 3.37 10*6/uL Low 3.90-5.60 [facility] Comment on above: Performed By: #### G LULS #### Point of Care testing , Toxic Vacuolation Slight Normal [facility] Comment on above: Performed By: #### G LULS #### Point of Care testing , WBC (Bld) [#/Vol] 4.6 10*3/uL Normal 4.1-10.5 [facility] Comment on above: Performed By: #### G LULS #### Point of Care testing , Shigella Tox 1+2 BD MaxOrder ed By: Lakesha Haskins on 10-10-2024 E. coli stx1+stx2 genes ABE+probe Ql (Stl) Escherichia coli Stx1 and Stx2 toxin stx1+stx2 genes [Presence] in Stool by ABE with Negative [facility] Shigellosis BD MaxOrdered By : Lakesha Haskins on 10-10-2024 Shigella species+EIEC invasion plasmid antigen H ipaH gene ABE+probe Ql (Stl) Shigella species+EIEC invasion plasmid antigen H ipaH gene [Presence] in Stool by ABE Negative [facility] Comment on above: Shigella sp. test in cludes Shigella species and Enteroinvasive E. coli (EIEC). Sodium [Moles/volume] in Sto olOrdered By: Loyda Carlos on 10-10-2024 Sodium (Stl) [Moles/Vol] Sodium [Moles/volume] in Stool . [facility] Comment on above: INTERPRETIVE INFORMA TION: Fecal SodiumA reference interval has not been established for fecal specimens.This test was developed and its performance characteristicsdetermined by [facility]. It has not been cleared orapproved by the [place] Food and Drug Administration. This test wasperformed in a CLIA certified laboratory and is intended forclinical purposes. Stool Bacterial Panelon Campylobacter Negative Normal Negative [facility] Comment on above: Result Comment: Camp ylobacter test includes C. jejuni and C. coli. Performed By: #### P TT, FIB-C, PT #### [address] Salmonella Species Negative Normal Negative [facility] Comment on above: Result Comment: Test ing performed by RT-PCR PERFORMED BY: [place] [address] PATHOLOGIST COMPUTER INSTALLATION ENGINEER ALEX SALMERON M.D. Performed By: #### P TT, FIB-C, PT #### [address] Shiga Toxin (E coli O157+oth) Negative Normal Negative [facility] Comment on above: Performed By: #### P TT, FIB-C, PT #### [facility] [address] [place] [address] Shigella Species Negative Normal Negative [facility] Comment on above: Result Comment: Shig julien sp. test includes Shigella species and Enteroinvasive E. coli (EIEC). Performed By: #### P TT, FIB-C, PT #### [facility] [address] Stool Electrolyteson 025 Sodium Stool <20 Normal . [facility] Comment on above: Result Comment: INTE RPRETIVE INFORMATION: Fecal Sodium A reference interval has not been established for fecal specimens. This test was developed and its performance characteristics determined by [facility]. It has not been cleared or approved by the [place] Food and Drug Administration. This test was performed in a CLIA certified laboratory and is intended for clinical purposes. Performed By: #### B MP, MG, CBC #### [address] Stool Chloride <20 Normal . [facility] Comment on above: Result Comment: INTE RPRETIVE INFORMATION: Fecal Chloride A reference interval has not been established for fecal specimens. This test was developed and its performance characteristics determined by [facility]. It has not been cleared or approved by the [place] Food and Drug Administration. This test was performed in a CLIA certified laboratory and is intended for clinical purposes. Performed at: [facility] [address] [id number] Household Appliance Installer: Chang House [facility], Phone: [phone] Performed By: #### B FABIOLA MG, CBC #### [address] Stool Potassium 47 mmol/L Normal . [facility] Comment on above: Result Comment: INTE RPRETIVE INFORMATION: Fecal Potassium A reference interval has not been established for fecal specimens. This test was developed and its performance characteristics determined by [facility]. It has not been cleared or approved by the [place] Food and Drug Administration. This test was performed in a CLIA certified laboratory and is intended for clinical purposes. PERFORMED BY: [place] [address] PATHOLOGIST COMPUTER INSTALLATION ENGINEER ALEX SALMERON M.D. Performed By: #### B MP, MG, CBC #### [address] Thyroid Stimulating Hormoneo n 10-10-2024 TSH Qn 1.35 m[IU]/L Normal 0.45-5.33 [facility] Comment on above: Result Comment: PERF ORMED BY: [address] [place] [address] PATHOLOGIST COMPUTER INSTALLATION ENGINEER ALEX SALMERON M.D. Performed By: #### G LULS #### Point of Care testing , Toxic leukocyte vacuolation detectionOrdered By: Loyda Carlos on 10-10-2024 Leukocyte toxic vacuoles LM Ql (Bld) Toxic leukocyte vacuolation detection [facility] Vit. B12/Folate Profileon Cobalamin (Vitamin B12) [Mass/Vol] 472 pg/mL Normal 180-914 [facility] Comment on above: Performed By: #### G LULS #### Point of Care testing , Folate 13.7 ng/mL Normal >5.9 [facility] Comment on above: Result Comment: Kalli te reference range: >5.9 ng/ml The WHO technical consultation on folate and vitamin b12 deficiencies has determined that folate concentrations less than 4 ng/ml are considered deficient. Performed By: #### G LULS #### Point of Care testing , A1C with Estimated Average Joon ramsayn 10-09-2024 Glucose [Mass/Vol] 160 mg/dL Normal [facility] Comment on above: Result Comment: PERF ORMED BY: [address] [place] [address] PATHOLOGIST COMPUTER INSTALLATION ENGINEER ALEX SALMERON M.D. Performed By: #### G LULS #### Point of Care testing , HbA1c (Bld) [Mass fraction] 7.2 % High 4.3-5.6 [facility] Comment on above: Result Comment: [...] [Mass/volume] in Blood Estimated from glycated hemoglobin [facility] CT abdomen pelvis wo conon 0 10-09-2024 CT abdomen pelvis wo con [facility] Main [place] [address] [place] [address] CT Scan Report Signed Patient: Jose L Ames MR#: [id number] : 1940 Acct:[id number] Age/Sex: 84 / M ADM Date: 10/09/24 Loc: Room: [address] [place] [address] Type: ADM IN Attending Dr: Loyda Carlos [...] Pascual Harris M.D.10/09/2024 4:57 PM Dictation Location: [place] [address] Transcribed By: [facility] 10/09/24 165 Dictated By: Pascual Harris DO 10/09/245 Signed By: 10/09/241656 Normal [facility] Clostridioides difficile tox in B tcdB gene [Presence] in Stool by ABE with probe deteOrdered By: Lakesha Haskins on 10-09-2024 C. difficile toxin B tcdB gene ABE+probe Ql (Stl) Clostridioides difficile toxin B tcdB gene [Presence] in Stool by ABE with probe dete Negative [facility] Comment on above: Testing performed by RT-PCR Clostridium Difficileon Clostridium Difficile Negative Normal Negative [facility] Comment on above: Order Comment: > or = to 3 loose/watery stools in the last 24 HRS? Y Is patient on promotility agents or tube feeding? N Result Comment: Test ing performed by RT-PCR PERFORMED BY: [place] [address] PATHOLOGIST COMPUTER INSTALLATION ENGINEER ALEX SALMERON M.D. Performed By: #### P TT, FIB-C, PT #### [address] Complete Blood Count Auto Di ffon 10-09-2024 Basophils (Bld) [#/Vol] 0.0 10*3/uL Normal 0.0-0.2 [facility] Comment on above: Result Comment: PERF ORMED BY: [place] [address] PATHOLOGIST COMPUTER INSTALLATION ENGINEER ALEX SALMERON M.D. Performed By: #### G LULS #### Point of Care testing , Basophils/100 WBC (Bld) 0.4 % Normal . [facility] Comment on above: Performed By: #### G LULS #### Point of Care testing , Eosinophils (Bld) [#/Vol] 0.1 10*3/uL Normal 0.0-0.45 [facility] Comment on above: Performed By: #### G LULS #### Point of Care testing , Eosinophils/100 WBC (Bld) 1.3 % Normal . [facility] Comment on above: Performed By: #### G LULS #### Point of Care testing , Erythrocyte distribution width (RBC) [Ratio] 13.9 % Normal 12.0-14.8 [facility] Comment on above: Performed By: #### G LULS #### Point of Care testing , Hematocrit (Bld) [Volume fraction] 36.0 % Low 38.8-50.0 [facility] Comment on above: Performed By: #### G LULS #### Point of Care testing , Hemoglobin (Bld) [Mass/Vol] 12.5 g/dL Low 13.0-17.0 [facility] Comment on above: Performed By: #### G LULS #### Point of Care testing , Lymphocytes (Bld) [#/Vol] 0.4 10*3/uL Low 1.00-4.8 [facility] Comment on above: Performed By: #### G LULS #### Point of Care testing , Lymphocytes/100 WBC (Bld) 3.5 % Normal . [facility] Comment on above: Performed By: #### G LULS #### Point of Care testing , MCH (RBC) [Entitic mass] 33.9 pg Normal 27.5-35.2 [facility] Comment on above: Performed By: #### G LULS #### Point of Care testing , MCV (RBC) [Entitic vol] 97.8 fL Normal 83.5-101 [facility] Comment on above: Performed By: #### G LULS #### Point of Care testing , Mean Corpuscular HGB Conc 34.7 g/dL Normal 32.5-35.6 [facility] Comment on above: Performed By: #### G LULS #### Point of Care testing , Monocytes (Bld) [#/Vol] 1.0 10*3/uL High 0.0-0.8 [facility] Comment on above: Performed By: #### G LULS #### Point of Care testing , Monocytes/100 WBC (Bld) 8.9 % Normal . [facility] Comment on above: Performed By: #### G LULS #### Point of Care testing , Neutrophils (Bld) [#/Vol] 9.8 10*3/uL High 1.8-7.7 [facility] Comment on above: Performed By: #### G LULS #### Point of Care testing , Neutrophils/100 WBC (Bld) 85.9 % Normal . [facility] Comment on above: Performed By: #### G LULS #### Point of Care testing , NRBC% 0.1 /100{WBC} Normal 0-0.5 [facility] Comment on above: Performed By: #### G LULS #### Point of Care testing , Platelet mean volume (Bld) [Entitic vol] 9.3 fL Normal 6.6-10.1 [facility] Comment on above: Performed By: #### G LULS #### Point of Care testing , Platelets (Bld) [#/Vol] 102 10*3/uL Low 150-450 [facility] Comment on above: Performed By: #### G LULS #### Point of Care testing , RBC (Bld) [#/Vol] 3.69 10*6/uL Low 3.90-5.60 [facility] Comment on above: Performed By: #### G LULS #### Point of Care testing , WBC (Bld) [#/Vol] 11.4 10*3/uL High 4.1-10.5 [facility] Comment on above: Performed By: #### G LULS #### Point of Care testing , Comprehensive Metabolic Pane ycndy 10-09-2024 Albumin [Mass/Vol] 3.3 g/dL Low 3.5-5.7 [facility] Comment on above: Performed By: #### G LULS #### Point of Care testing , Albumin/Globulin [Mass ratio] 1.6 {ratio} Normal [facility] Comment on above: Performed By: #### G LULS #### Point of Care testing , ALP [Catalytic activity/Vol] 50 U/L Normal 34-104 [facility] Comment on above: Performed By: #### G LULS #### Point of Care testing , ALT [Catalytic activity/Vol] 25 U/L Normal 7-52 [facility] Comment on above: Performed By: #### G LULS #### Point of Care testing , Anion gap [Moles/Vol] 12.0 mmol/L Normal 6.0-15.0 [facility] Comment on above: Performed By: #### G LULS #### Point of Care testing , AST [Catalytic activity/Vol] 48 U/L High 13-39 [facility] Comment on above: Performed By: #### G LULS #### Point of Care testing , Bilirubin [Mass/Vol] 0.4 mg/dL Normal 0.3-1.0 [facility] Comment on above: Performed By: #### G LULS #### Point of Care testing , Calcium [Mass/Vol] 7.7 mg/dL Low 8.6-10.3 [facility] Comment on above: Performed By: #### G LULS #### Point of Care testing , Chloride [Moles/Vol] 110 mmol/L High 98-107 [facility] Comment on above: Performed By: #### G LULS #### Point of Care testing , CO2 [Moles/Vol] 22.5 mmol/L Normal 21.0-31.0 [facility] Comment on above: Performed By: #### G LULS #### Point of Care testing , Creatinine [Mass/Vol] 2.23 mg/dL High 0.70-1.30 [facility] Comment on above: Performed By: #### G LULS #### Point of Care testing , Creatinine Clr Calc Pharmacy 30.12 Normal [facility] Comment on above: Performed By: #### G LULS #### Point of Care testing , Estimated GFR 27.998 mL/Min Normal [facility] Comment on above: Performed By: #### G LULS #### Point of Care testing , Globulin (S) [Mass/Vol] 2.1 g/dL Normal [facility] Comment on above: Performed By: #### G LULS #### Point of Care testing , Glucose [Mass/Vol] 185 mg/dL High 70-100 [facility] Comment on above: Result Comment: [facility] Glucose Reference Range is dependent on time and content of last meal. Glucose of more than 200 mg/dL in a nonstressed, ambulatory subject supports the diagnosis of Diabetes Mellitus. ADA recommended reference range Performed By: #### G LULS #### Point of Care testing , Potassium [Moles/Vol] 4.5 mmol/L Normal 3.5-5.1 [facility] Comment on above: Performed By: #### G LULS #### Point of Care testing , Protein [Mass/Vol] 5.4 g/dL Low 6.4-8.9 [facility] Comment on above: Performed By: #### G LULS #### Point of Care testing , Sodium [Moles/Vol] 140 mmol/L Normal 136-145 [facility] Comment on above: Performed By: #### G LULS #### Point of Care testing , Urea nitrogen [Mass/Vol] 37 mg/dL High 7-25 [facility] Comment on above: Performed By: #### G LULS #### Point of Care testing , ECG 12 lead ECGon 10-09-2024 ECG 12 lead ECG [facility] [place] [address] Electrocardiograph Report Signed Patient: Jose L Ames MR#: [id number] : 1940 Acct:[id number] Age/Sex: 84 / M ADM Date: 10/09/24 Loc: Room: [address] [place] [address] Type: ADM IN Attending Dr: Javier Murray [...] compared with ECG of 09-Oct-2024 19:38, (Unconfirmed) VT interval has increased Confirmed by VIET HALL MD, FACC ([id number]) on 10/12/2024 6:24:02 PM Referred By: Electronically Signed By: VIET HALL MD FAC Transcribed By: MUS Signed By Viet Hall MD, FACC 10/12/24 182 Normal [facility] ECG 12 lead ECG [facility] [address] Electrocardiograph Report Signed Patient: Jose L Ames MR#: [id number] : 1940 Acct:[id number] Age/Sex: 84 / M ADM Date: 10/09/24 Loc: Room: [address] [place] [address] Type: ADM IN Attending Dr: Javier Murray [...] 11:19, QRS axis shifted right Confirmed by VIET HALL MD, FACC ([id number]) on 10/12/2024 6:23:20 PM Referred By: Electronically Signed By: VIET HALL MD, FACC Transcribed By: MUS Signed By Viet Hall MD, FACC 10/12/24 1823 Normal [facility] ECH echo transthoracicon ECH echo transthoracic [facility] Main [place] [address] [place] [address] Echocardiogram Signed Patient: Jose L Ames MR#: [id number] : 1940 Acct:[id number] Age/Sex: 84 / M ADM Date: 10/09/24 Loc: Room: [address] [place] [address] Type: ADM IN Attending Dr: Loyda Carlos MD Ordering Provider: Lakesha Haskins APRN Date of Service: 10/09/2403/26/500 ECH/ECH echo transthoracic: syncope Copies to: MD Lakesha Mccullough, MANUFACTURING MAINTENANCE MANAGER BSA: 2.3 m2 BP: 105/56 mmHg HR: [...] LV V1 VTI: 20.0 cm Transcribed By: NELDA Performed At: 10/09/24 0901 Signed By: Liz Plata MD 10/09/24 1558 Normal [facility] Glucose Poct Glucometerson 0 10-09-2024 Glucose [Mass/Vol] 137 mg/dL Normal [facility] Comment on above: Result Comment: [facility] Glucose Reference Range is dependent on time and content of last meal. Glucose of more than 200 mg/dL in a nonstressed, ambulatory subject supports the diagnosis of Diabetes Mellitus. PERFORMED BY: [phone] PATHOLOGIST COMPUTER INSTALLATION ENGINEER ALEX SALMERON M.D. Performed By: #### P TT, FIB-C, PT #### [address] Glucose [Mass/Vol] 133 mg/dL Normal [facility] Comment on above: Result Comment: [place] Glucose Reference Range is dependent on time and content of last meal. Glucose of more than 200 mg/dL in a nonstressed, ambulatory subject supports the diagnosis of Diabetes Mellitus. PERFORMED BY: [phone] PATHOLOGIST COMPUTER INSTALLATION ENGINEER ALEX SALMERON M.D. Performed By: #### G LULS #### Point of Care testing , Commemt1 Glu2: Cleaned Meter Normal [facility] Comment on above: Result Comment: PERF ORMED BY: [place] [address] PATHOLOGIST COMPUTER INSTALLATION ENGINEER ALEX SALMERON M.D. Performed By: #### G LULS #### Point of Care testing , Glucose [Mass/Vol] 156 mg/dL Normal [facility] Comment on above: Result Comment: [place] [facility] Glucose Reference Range is dependent on time and content of last meal. Glucose of more than 200 mg/dL in a nonstressed, ambulatory subject supports the diagnosis of Diabetes Mellitus. Performed By: #### G LULS #### Point of Care testing , Commemt1 Glu2: Cleaned Meter Normal [facility] Comment on above: Result Comment: PERF ORMED BY: [address] [address] PATHOLOGIST COMPUTER INSTALLATION ENGINEER ALEX SALMERON M.D. Performed By: #### G LULS #### Point of Care testing , Glucose [Mass/Vol] 192 mg/dL Normal [facility] Comment on above: Result Comment: [place] [facility] Glucose Reference Range is dependent on time and content of last meal. Glucose of more than 200 mg/dL in a nonstressed, ambulatory subject supports the diagnosis of Diabetes Mellitus. Performed By: #### G LULS #### Point of Care testing , Hemoglobin A1c/Hemoglobin.to brendan in BloodOrdered By: Lakesha Haskins on 10-09-2024 HbA1c (Bld) [Mass fraction] Hemoglobin A1c percentage High 4.3-5.6 [facility] Comment on above: Increased risk for d iabetes: 5.7 - 6.4diabetes: >6.4glycemic control for adults with diabetes: <7.0 Magnesiumon 10-09-2024 Magnesium [Mass/Vol] 1.9 mg/dL Normal 1.9-2.7 [facility] Comment on above: Performed By: #### G LULS #### Point of Care testing , US carotid doppler BIon US carotid doppler BI [facility] Main [place] [address] [place] [id number] Ultrasound Report Signed Patient: Jose L Ames MR#: [id number] : 1940 Acct:[id number] Age/Sex: 84 / M ADM Date: 10/09/24 Loc: Room: 2R7719-6 Type: ADM IN Attending Dr: Loyda Carlos MD Ordering Provider: Lakesha Haskins APRN Date of Service: 10/09/24 US/US carotid doppler BI: syncope Copies to: MD Lakesha Villafuerte, MANUFACTURING MAINTENANCE MANAGER CAROTID DUPLEX INDICATION: Altered mental status, slurred [...] Dean Barnard MD10/09/2024 9:26 AM Dictation Location: [facility] Tech: Sunita Box Transcribed By: KAYLEIGH 10/09/24925 Dictated By: Dean Barnard MD 10/09/24925 Signed By: 10/09/24925 Normal [facility] Vitamin D 25 Hydroxy Totalon 10-09-2024 Vitamin D 25 Hydroxy Total 56.5 ng/mL Normal 30-100 [facility] Comment on above: Result Comment: JOSE MIN D STATUS 25(OH)VITAMIN D RANGE (ng/mL) Deficient <20 Insufficient 20 to <30 Sufficient 30 to 100 Reference: Ritu Devries, James SIMON et al. Evaluation,treatment, and prevention of vitamin D deficiency; an Endocrine Society clinical practice guideline. JCEM. 2010; 96(7):1911-30. PERFORMED BY: [address] [place] [address] PATHOLOGIST COMPUTER INSTALLATION ENGINEER ALEX SALMERON M.D. Performed By: #### G LULS #### Point of Care testing , Vitamin D+Metabolites [Mass/ volume] in Serum or PlasmaOrdered By: Lakesha Haskins on 10-09-2024 Vitamin D+Metabolites [Mass/Vol] Vitamin D+Metabolites [Mass/volume] in Serum or Plasma 30-100 [facility] Comment on above: VITAMIN D STATUS 25( [place])VITAMIN D RANGE (ng/mL) Deficient <20 Insufficient 20 to <30Sufficient 30 to 100Reference: Ritu Devries, James SIMON et al. Evaluation,treatment, and prevention of vitamin D deficiency; an Endocrine Society clinical practice guideline. JCEM. 2010; 96(7):1911-30. Basophils Auto (Bld) [#/Vol] on 10-08-2024 Basophils (Bld) [#/Vol] Automated basophil count 0.0-0.1 [facility] Basophils/100 WBC Auto (Bld) on 10-08-2024 Basophils/100 WBC (Bld) Automated basophil % Low 0. 2-2.0 [facility] Eosinophils/100 WBC Auto (Bl d)on 10-08-2024 Eosinophils/100 WBC (Bld) Automated eosinophil % Low 0.9-7.0 [facility] Erythrocyte distribution wid th Auto (RBC) [Ratio]on 10-08-2024 Erythrocyte distribution width (RBC) [Ratio] Erythrocyte distribution width [Ratio] by Automated count 11.0-15.0 [facility] Estimated glomerular filtrat ion rate (GFR) non- Americanon 10-08-2024 GFR/1.73 sq M.predicted among non-blacks MDRD (S/P/Bld) [Vol rate/Area] Estimated glomerular filtration rate (GFR) non- Low >=60 mL/min/1.7 3m 2 [facility] Globulin Calc (S) [Mass/Vol] on 10-08-2024 Globulin (S) [Mass/Vol] Serum globulin m easurement by calculation (mass/volume) [facility] Hematocrit Auto (Bld) [Volum e fraction]on 10-08-2024 Hematocrit (Bld) [Volume fraction] Hematocrit [Volume Fraction] of Blood by Automated count 42.0-54.0 [facility] Hemoglobin [Mass/volume] in Bloodon 10-08-2024 Hemoglobin (Bld) [Mass/Vol] Hemoglobin [Mass/volume] in Blood 14.0-18.0 [facility] INR in Platelet poor plasma by Coagulation assayon 10-08-2024 INR Coag (PPP) [Relative time] INR in Platelet poor plasma by Coagulation assay [facility] Comment on above: DESIRED INR:2.0-3.0 CONDITIONS NOT LISTED BELOW2.5-3.5 FOR PROSTHETIC HEART VALVE REPLACEMENT2.5-3.5 RECURRENT THROMBOSIS Laboratory - Chemistry and C hemistry - challengeon 10-08-2024 Lactate [Moles/Vol] 0.7 mmol/L 0.4-2.0 [facility] Bilirubin Ql (U) SMALL Abnormal NEGATIVE [facility] Glucose (U) [Mass/Vol] Negative NEGATIVE Fi relaReplaced by [facility] Ketones Ql (U) TRACE mg/dL Abnormal NEGATIVE [facility] pH (U) 5.5 [pH] 5.0-9.0 [facility] Specific gravity (U) [Rel density] >=1.030 Abnormal 1.005-1.02 5 [facility] Urobilinogen Qn (U) 0.2 {Zeb'U}/dL 0.2-1.0 [facility] Albumin [Mass/Vol] 3.5 g/dL 3.4-5.0 [facility] ALP [Catalytic activity/Vol] 84 U/L 46-116 [facility] ALT [Catalytic activity/Vol] 20 U/L 16-63 [facility] AST [Catalytic activity/Vol] 17 U/L 15-37 [facility] Bilirubin [Mass/Vol] 0.7 mg/dL 0.2-1.0 [facility] Calcium [Mass/Vol] 8.2 mg/dL Low 8.5-10.1 [facility] Chloride [Moles/Vol] 102 mmol/L 98-107 [facility] CO2 [Moles/Vol] 16.1 mmol/L Low 21.0-32.0 [facility] Creatinine [Mass/Vol] 3.09 mg/dL High 0.70-1.30 [facility] GFR/1.73 sq M.predicted MDRD (S/P/Bld) [Vol rate/Area] 23 mL/min/{1.73_m2} Low >=60 mL/min/1.7 3m 2 [facility] Glucose [Mass/Vol] 309 mg/dL High 74-106 [facility] Potassium [Moles/Vol] 4.4 mmol/L 3.5-5.1 [facility] Protein [Mass/Vol] 6.6 g/dL 6.4-8.2 [facility] Sodium [Moles/Vol] 137 mmol/L 136-145 [facility] Urea nitrogen [Mass/Vol] 43.0 mg/dL High 7.0-18.0 [facility] Urea nitrogen/Creatinine [Mass ratio] 13.9 mg/mg [facility] Laboratory - Hematology and Cell countson 10-08-2024 Immature granulocytes/100 WBC (Bld) 0.6 % High 0.0-0.5 [facility] Laboratory - Microbiology an d Antimicrobial susceptibilityon 10-08-2024 SARS-CoV-2 (COVID-19) RNA ABE+probe Ql (Unsp spec) Negative NEGATIVE [facility] Comment on above: This test has not [...] ationon 10-08-2024 Appearance (U) SL CLOUDY CLEAR [facility] Color (U) DK. YELLOW YELLOW [facility] Laboratory - Urinalysison Leukocyte esterase Test strip Ql (U) Negative NEGATIVE [facility] Nitrite Ql (U) Negative NEGATIVE [facility] Protein Ql (U) 30 mg/dL Abnormal NEG/TRACE [facility] Leukocytes [#/volume] correc layton for nucleated erythrocytes in Blood by Automated counon 10-08-2024 WBC corrected for nucl RBC Auto (Bld) [#/Vol] Leukocytes [#/volume] corrected for nucleated erythrocytes in Blood by Automated coun High 4.0-11.0 [facility] Lymphocytes Auto (Bld) [#/Vo l]on 10-08-2024 Lymphocytes (Bld) [#/Vol] Lymphocytes [#/volume] in Blood by Automated count Low 1.2-3.8 [facility] Lymphocytes/100 WBC Auto (Bl d)on 10-08-2024 Lymphocytes/100 WBC (Bld) Lymphocytes/100 leukocytes in Blood by Automated count Low 20.5-60.0 [facility] MCH Auto (RBC) [Entitic mass ]on 10-08-2024 MCH (RBC) [Entitic mass] MCH [Entitic mass] by Automated count High 25.9-34.0 [facility] MCHC Auto (RBC) [Mass/Vol]on 10-08-2024 MCHC (RBC) [Mass/Vol] MCHC [Mass/volume] by Automated count 29.9-35.2 [facility] MCV Auto (RBC) [Entitic vol] on 10-08-2024 MCV (RBC) [Entitic vol] MCV [Entitic vol ume] by Automated count High 80.0-94.0 [facility] Monocytes Auto (Bld) [#/Vol] on 10-08-2024 Monocytes (Bld) [#/Vol] Automated blood monocyte count 0.3-0.8 [facility] Monocytes/100 WBC Auto (Bld) on 10-08-2024 Monocytes/100 WBC (Bld) Automated monocyte % 1. 7-12.0 [facility] Neutrophils Auto (Bld) [#/Vo l]on 10-08-2024 Neutrophils (Bld) [#/Vol] Neutrophils [#/volume] in Blood by Automated count High 1.4-6.5 [facility] Neutrophils/100 WBC Auto (Bl d)on 10-08-2024 Neutrophils/100 WBC (Bld) Automated neutrophil % High 43.0-75.0 [facility] No Panel Informationon 10-08 Urine Microscopic Review NO [facility] Urine Occult Blood Negative NEGATIVE [facility] Bedside Influenza Type A Antigen Negative [facility] Comment on above: Negative for Flu A p rotein antigen. Infection due to Flu Acannot be ruled out. Flu A antigen in the sample may bebelow the detection limit of the test. Bedside Influenza Type B Antigen Negative [facility] Comment on above: Negative for Flu B p rotein antigen. Infection due to Flu Bcannot be ruled out. Flu B antigen in the sample may bebelow the detection limit of the test. Eosinophils # (Auto) 0.0 10 3/uL 0.0-0.7 [facility] Ethyl Alcohol Level <3 mg/dL [facility] Comment on above: NOTE: 80 mg/dl is th e legal limit for a blood alcohol level Immature Granulocyte # (Auto) 0.11 10 3/uL High 0.00-0.03 [facility] Troponin I High Sensitivity 10.7 pg/mL 4.0-76.1 [facility] Comment on above: CUT-OFF POINTS HAVE BEEN [...] volume] in Blood by Automated count 9.5-13.5 [facility] Platelets Auto (Bld) [#/Vol] on 10-08-2024 Platelets (Bld) [#/Vol] Platelets [#/vol ume] in Blood by Automated count Low 150-450 [facility] Prothrombin time (PT)on PT Coag (PPP) [Time] Prothrombin time (PT) 9.0- 11.6 [facility] RBC Auto (Bld) [#/Vol]on RBC (Bld) [#/Vol] Erythrocytes [#/volu me] in Blood by Automated count Low 4.70-6.10 [facility] Serum or plasma albumin/glob ulin mass ratioon 10-08-2024 Albumin/Globulin [Mass ratio] Serum or plasma albumin/globulin mass ratio [facility] Serum or plasma anion gap de terminationon 10-08-2024 Anion gap [Moles/Vol] Serum or plasma an ion gap determination [facility] Provider Letteron 02-05-2025 Provider Letter Provider Letter October 07, 2024 JOSE L AMES [address] [place] [id number] : 1940 Dear Mr. Ames, We have been trying to reach you with no success. You have an appointment with Dr Baez on October 14 on which will need to be rescheduled since his schedule has changed that day. We have options with his carpenter assistant installer/nurse practitioner. Please contact the office at the number listed below to get this appointment rescheduled at your earliest convenience. Thank you for your prompt attention to this matter. Call [phone] option3 as soon as possible to be rescheduled. Sincerely, [facility] Normal [facility] Basophils Auto (Bld) [#/Vol] on 10-06-2024 Basophils (Bld) [#/Vol] Automated basophil count 0.0-0.1 [facility] Basophils/100 WBC Auto (Bld) on 10-06-2024 Basophils/100 WBC (Bld) Automated basophil % 0. 2-2.0 [facility] Eosinophils/100 WBC Auto (Bl d)on 10-06-2024 Eosinophils/100 WBC (Bld) Automated eosinophil % 0.9-7.0 [facility] Erythrocyte distribution wid th Auto (RBC) [Ratio]on 10-06-2024 Erythrocyte distribution width (RBC) [Ratio] Erythrocyte distribution width [Ratio] by Automated count 11.0-15.0 [facility] Estimated glomerular filtrat ion rate (GFR) non- Americanon 10-06-2024 GFR/1.73 sq M.predicted among non-blacks MDRD (S/P/Bld) [Vol rate/Area] Estimated glomerular filtration rate (GFR) non- Low >=60 mL/min/1.7 3m 2 [facility] Hematocrit Auto (Bld) [Volum e fraction]on 10-06-2024 Hematocrit (Bld) [Volume fraction] Hematocrit [Volume Fraction] of Blood by Automated count Low 42.0-54.0 [facility] Hemoglobin [Mass/volume] in Bloodon 10-06-2024 Hemoglobin (Bld) [Mass/Vol] Hemoglobin [Mass/volume] in Blood Low 14.0-18.0 [facility] Laboratory - Chemistry and C hemistry - challengeon 10-06-2024 Calcium [Mass/Vol] 8.8 mg/dL 8.5-10.1 [facility] Chloride [Moles/Vol] 104 mmol/L 98-107 [facility] CO2 [Moles/Vol] 29.9 mmol/L 21.0-32.0 [facility] Creatinine [Mass/Vol] 1.42 mg/dL High 0.70-1.30 [facility] GFR/1.73 sq M.predicted MDRD (S/P/Bld) [Vol rate/Area] 57 mL/min/{1.73_m2} Low >=60 mL/min/1.7 3m 2 [facility] Glucose [Mass/Vol] 147 mg/dL High 74-106 [facility] Potassium [Moles/Vol] 4.6 mmol/L 3.5-5.1 [facility] Sodium [Moles/Vol] 140 mmol/L 136-145 [facility] Urea nitrogen [Mass/Vol] 12.0 mg/dL 7.0-18.0 [facility] Urea nitrogen/Creatinine [Mass ratio] 8.5 mg/mg [facility] Laboratory - Hematology and Cell countson 10-06-2024 Immature granulocytes/100 WBC (Bld) 0.5 % 0.0-0.5 [facility] Leukocytes [#/volume] correc layton for nucleated erythrocytes in Blood by Automated counon 10-06-2024 WBC corrected for nucl RBC Auto (Bld) [#/Vol] Leukocytes [#/volume] corrected for nucleated erythrocytes in Blood by Automated coun 4.0-11.0 [facility] Lymphocytes Auto (Bld) [#/Vo l]on 10-06-2024 Lymphocytes (Bld) [#/Vol] Lymphocytes [#/volume] in Blood by Automated count Low 1.2-3.8 [facility] Lymphocytes/100 WBC Auto (Bl d)on 10-06-2024 Lymphocytes/100 WBC (Bld) Lymphocytes/100 leukocytes in Blood by Automated count 20.5-60.0 [facility] MCH Auto (RBC) [Entitic mass ]on 10-06-2024 MCH (RBC) [Entitic mass] MCH [Entitic mass] by Automated count 25.9-34.0 [facility] MCHC Auto (RBC) [Mass/Vol]on 10-06-2024 MCHC (RBC) [Mass/Vol] MCHC [Mass/volume] by Automated count 29.9-35.2 [facility] MCV Auto (RBC) [Entitic vol] on 10-06-2024 MCV (RBC) [Entitic vol] MCV [Entitic vol ume] by Automated count High 80.0-94.0 [facility] Monocytes Auto (Bld) [#/Vol] on 10-06-2024 Monocytes (Bld) [#/Vol] Automated blood monocyte count 0.3-0.8 [facility] Monocytes/100 WBC Auto (Bld) on 10-06-2024 Monocytes/100 WBC (Bld) Automated monocyte % 1. 7-12.0 [facility] Neutrophils Auto (Bld) [#/Vo l]on 10-06-2024 Neutrophils (Bld) [#/Vol] Neutrophils [#/volume] in Blood by Automated count 1.4-6.5 [facility] Neutrophils/100 WBC Auto (Bl d)on 10-06-2024 Neutrophils/100 WBC (Bld) Automated neutrophil % 43.0-75.0 [facility] No Panel Informationon 10-06 Eosinophils # (Auto) 0.1 10 3/uL 0.0-0.7 [facility] Immature Granulocyte # (Auto) 0.02 10 3/uL 0.00-0.03 [facility] Platelet mean volume Auto (B ld) [Entitic vol]on 10-06-2024 Platelet mean volume (Bld) [Entitic vol] Platelet mean volume [Entitic volume] in Blood by Automated count 9.5-13.5 [facility] Platelets Auto (Bld) [#/Vol] on 10-06-2024 Platelets (Bld) [#/Vol] Platelets [#/vol ume] in Blood by Automated count Low 150-450 [facility] RBC Auto (Bld) [#/Vol]on 02- 04-2025 RBC (Bld) [#/Vol] Erythrocytes [#/volu me] in Blood by Automated count Low 4.70-6.10 [facility] Serum or plasma anion gap de terminationon 10-06-2024 Anion gap [Moles/Vol] Serum or plasma an ion gap determination [facility] Basophils Auto (Bld) [#/Vol] on 07-16-2024 Basophils (Bld) [#/Vol] Automated basophil count 0.0-0.1 [facility] Basophils/100 WBC Auto (Bld) on 07-16-2024 Basophils/100 WBC (Bld) Automated basophil % 0. 2-2.0 [facility] Eosinophils/100 WBC Auto (Bl d)on 07-16-2024 Eosinophils/100 WBC (Bld) Automated eosinophil % 0.9-7.0 [facility] Erythrocyte distribution wid th Auto (RBC) [Ratio]on 07-16-2024 Erythrocyte distribution width (RBC) [Ratio] Erythrocyte distribution width [Ratio] by Automated count 11.0-15.0 [facility] Estimated glomerular filtrat ion rate (GFR) non- Americanon 07-16-2024 GFR/1.73 sq M.predicted among non-blacks MDRD (S/P/Bld) [Vol rate/Area] Estimated glomerular filtration rate (GFR) non- Low >=60 mL/min/1.7 3m 2 [facility] Globulin Calc (S) [Mass/Vol] on 07-16-2024 Globulin (S) [Mass/Vol] Serum globulin m easurement by calculation (mass/volume) [facility] Glucose mean value [Mass/vol ume] in Blood Estimated from glycated hemoglobinon 07-16-2024 Average glucose Estimated from glycated hemoglobin (Bld) [Mass/Vol] Glucose mean value [Mass/volume] in Blood Estimated from glycated hemoglobin [facility] Hematocrit Auto (Bld) [Volum e fraction]on 07-16-2024 Hematocrit (Bld) [Volume fraction] Hematocrit [Volume Fraction] of Blood by Automated count Low 42.0-54.0 [facility] Hemoglobin [Mass/volume] in Bloodon 07-16-2024 Hemoglobin (Bld) [Mass/Vol] Hemoglobin [Mass/volume] in Blood Low 14.0-18.0 [facility] Laboratory - Chemistry and C hemistry - challengeon 07-16-2024 Albumin [Mass/Vol] 3.7 g/dL 3.4-5.0 [facility] ALP [Catalytic activity/Vol] 116 U/L 46-116 [facility] ALT [Catalytic activity/Vol] 24 U/L 16-63 [facility] AST [Catalytic activity/Vol] 15 U/L 15-37 [facility] Bilirubin [Mass/Vol] 0.5 mg/dL 0.2-1.0 [facility] Calcium [Mass/Vol] 9.1 mg/dL 8.5-10.1 [facility] Chloride [Moles/Vol] 100 mmol/L 98-107 [facility] CO2 [Moles/Vol] 28.6 mmol/L 21.0-32.0 [facility] Creatinine [Mass/Vol] 1.42 mg/dL High 0.70-1.30 [facility] GFR/1.73 sq M.predicted MDRD (S/P/Bld) [Vol rate/Area] 57 mL/min/{1.73_m2} Low >=60 mL/min/1.7 3m 2 [facility] Glucose [Mass/Vol] 129 mg/dL High 74-106 [facility] Potassium [Moles/Vol] 4.5 mmol/L 3.5-5.1 [facility] Protein [Mass/Vol] 7.1 g/dL 6.4-8.2 [facility] Sodium [Moles/Vol] 138 mmol/L 136-145 [facility] TSH Qn 1.188 m[IU]/L 0.358-3.74 0 [facility] Urea nitrogen [Mass/Vol] 16.0 mg/dL 7.0-18.0 [facility] Urea nitrogen/Creatinine [Mass ratio] 11.3 mg/mg [facility] Laboratory - Hematology and Cell countson 07-16-2024 HbA1c (Bld) [Mass fraction] 6.4 % High 4.5-6.2 [facility] Comment on above: ADA RECOMMENDED LIMI T 4.0 - 6.0ADA THERAPEUTIC TARGET < 7.0ACTION SUGGESTED> 7.0 Immature granulocytes/100 WBC (Bld) 0.7 % High 0.0-0.5 [facility] Leukocytes [#/volume] correc layton for nucleated erythrocytes in Blood by Automated counon 07-16-2024 WBC corrected for nucl RBC Auto (Bld) [#/Vol] Leukocytes [#/volume] corrected for nucleated erythrocytes in Blood by Automated coun 4.0-11.0 [facility] Lymphocytes Auto (Bld) [#/Vo l]on 07-16-2024 Lymphocytes (Bld) [#/Vol] Lymphocytes [#/volume] in Blood by Automated count 1.2-3.8 [facility] Lymphocytes/100 WBC Auto (Bl d)on 07-16-2024 Lymphocytes/100 WBC (Bld) Lymphocytes/100 leukocytes in Blood by Automated count 20.5-60.0 [facility] MCH Auto (RBC) [Entitic mass ]on 07-16-2024 MCH (RBC) [Entitic mass] MCH [Entitic mass] by Automated count 25.9-34.0 [facility] MCHC Auto (RBC) [Mass/Vol]on 07-16-2024 MCHC (RBC) [Mass/Vol] MCHC [Mass/volume] by Automated count 29.9-35.2 [facility] MCV Auto (RBC) [Entitic vol] on 07-16-2024 MCV (RBC) [Entitic vol] MCV [Entitic vol ume] by Automated count High 80.0-94.0 [facility] Microalbumin [Mass/volume] i n Urineon 07-16-2024 Albumin DL <= 20 mg/L (U) [Mass/Vol] Microalbumin [Mass/volume] in Urine <=30.0 [facility] Monocytes Auto (Bld) [#/Vol] on 07-16-2024 Monocytes (Bld) [#/Vol] Automated blood monocyte count 0.3-0.8 [facility] Monocytes/100 WBC Auto (Bld) on 07-16-2024 Monocytes/100 WBC (Bld) Automated monocyte % 1. 7-12.0 [facility] Neutrophils Auto (Bld) [#/Vo l]on 07-16-2024 Neutrophils (Bld) [#/Vol] Neutrophils [#/volume] in Blood by Automated count 1.4-6.5 [facility] Neutrophils/100 WBC Auto (Bl d)on 07-16-2024 Neutrophils/100 WBC (Bld) Automated neutrophil % 43.0-75.0 [facility] No Panel Informationon 07-16 Eosinophils # (Auto) 0.1 10 3/uL 0.0-0.7 [facility] Immature Granulocyte # (Auto) 0.04 10 3/uL High 0.00-0.03 [facility] Platelet mean volume Auto (B ld) [Entitic vol]on 07-16-2024 Platelet mean volume (Bld) [Entitic vol] Platelet mean volume [Entitic volume] in Blood by Automated count 9.5-13.5 [facility] Platelets Auto (Bld) [#/Vol] on 07-16-2024 Platelets (Bld) [#/Vol] Platelets [#/vol ume] in Blood by Automated count Low 150-450 [facility] RBC Auto (Bld) [#/Vol]on RBC (Bld) [#/Vol] Erythrocytes [#/volu me] in Blood by Automated count Low 4.70-6.10 [facility] Serum or plasma albumin/glob ulin mass ratioon 07-16-2024 Albumin/Globulin [Mass ratio] Serum or plasma albumin/globulin mass ratio [facility] Serum or plasma anion gap de terminationon 07-16-2024 Anion gap [Moles/Vol] Serum or plasma an ion gap determination [facility] Ambulatory Visit Summaryon 0 04-15-2024 Ambulatory Visit Summary Ambulatory Visit Summary JOSE L AMES :1940 Visit Date:04/15/2024 Ambulatory Visit Instructions Your Diagnosis OAB (overactive bladder) BPH with urinary obstruction Asymptomatic microscopic hematuria Your Care Team Attending Physician - LORRAINE DAUGHERTY, Carlos A Hamilton Primary Care Physician - JAVON CRISTINA, ERICH This Is Your Medications List ascorbic acid [...] Saturday 1:00 PM EST With: Carlos A BEAZ MD Where: [facility] [address], [address] [place] [address]- You Need to Schedule the Following Appointments Follow Up with Carlos A BAEZ MD, URL When: Where: [address] [facility] [address] [place] [address]- Medications What How Much When Instructions New oxybutynin (oxybutynin 5 mg Tab) 1 Tablets By Mouth At bedtime Refills: 11 Take 30 min prior to bedtime. Pickup at [facility]/pharmacy #[id number] Unchanged ascorbic acid 500 Milligram Unchanged cholecalciferol [...] physician if questions or concerns Pharmacy Information [facility]/pharmacy #[id number]: [address] [place], [place] [id number] [phone] What How Much When Comments Stop Taking [...] frequency Urinary (more content not included)... Normal [facility] Urology Office/Clinic Noteon 04-15-2024 Urology Office/Clinic [...] with voice recognition artificial intelligence software, specifically [email or web address], [employer] and or [employer]. Substitutions may have occurred due to the inherent limitations of voice recognition and artificial intelligence software. 1. OAB (overactive bladder) (N32.81: Overactive bladder) PVR (cc): 01/29/24 - 27 04/15/24 - 0 Failed Oxybutynin due to [...] PVR today. Follow-up With When Contact Information LORRAINE DAUGHERTY, Carlos A P, URL [address] [address]- Additional Instructions: 6 mos w/ PVR Patient Education Overactive Bladder, Adult I, Alisson Saeed, personally scribed for Dr. Baez on 04/15/2024 13:33:48. . Documentation recorded by the scribe, Alisson Saeed, accurately reflects the services(s) I performed and decisions made by me. Authenticated by Dr. aBez on 04/15/2024 13:39:04. Problem List/Past Medical History Ongoing Asymptomatic microscopic hematuria BPH with urinary obstruction Cigarette smoker COPD type B Delirium Dependent edema Diverticulosis of colon DM2 (diabetes mellitus, type 2) Essential hypertension Frequency of urination and polyuria Hypertension Lumbar spondylosis Mixed hyperlipidemia OAB (overactive bladder) Obesity due to excess calories Pneumonia Radial nerve p (more content not included)... Normal [facility] Comment on above: Result Comment: Elec tronically Signed By: Carlos A BAEZ MD\.br\Date and Time Signed: 04/15/24 13:39 EDT\.br\Electronically Co-Signed By: Alisson Saeed\.br\Date and Time Co-Signed: 04/15/24 13:35 EDT\.br\Electronically Co-Signed By: Alisson Saeed\.br\Date and Time Co-Signed: 04/15/24 13:36 EDT Basophils Auto (Bld) [#/Vol] on 04-07-2024 Basophils (Bld) [#/Vol] 0.0 10 3/uL 0.0-0.1 [facility] Basophils/100 WBC Auto (Bld) on 04-07-2024 Basophils/100 WBC (Bld) 0.9 % 0.2-2.0 [facility] Eosinophils/100 WBC Auto (Bl d)on 04-07-2024 Eosinophils/100 WBC (Bld) 0.7 % Low 0.9-7.0 [facility] Erythrocyte distribution wid th Auto (RBC) [Ratio]on 04-07-2024 Erythrocyte distribution width (RBC) [Ratio] 12.8 % 11.0-15.0 [facility] Estimated glomerular filtrat ion rate (GFR) non- Americanon 04-07-2024 GFR/1.73 sq M.predicted among non-blacks MDRD (S/P/Bld) [Vol rate/Area] 59 mL/min/{1.73_m2} Low >=60 [facility] Globulin Calc (S) [Mass/Vol] on 04-07-2024 Globulin (S) [Mass/Vol] 3.0 g/dL [facility] Glucose mean value [Mass/vol ume] in Blood Estimated from glycated hemoglobinon 04-07-2024 Average glucose Estimated from glycated hemoglobin (Bld) [Mass/Vol] 203 mg/dL [facility] Hematocrit Auto (Bld) [Volum e fraction]on 04-07-2024 Hematocrit (Bld) [Volume fraction] 42.1 % 42.0-54.0 [facility] Hemoglobin [Mass/volume] in Bloodon 04-07-2024 Hemoglobin (Bld) [Mass/Vol] 14.0 g/dL 14.0-18.0 [facility] Laboratory - Chemistry and C hemistry - challengeon 04-07-2024 Albumin [Mass/Vol] 3.5 g/dL 3.4-5.0 [facility] ALP [Catalytic activity/Vol] 120 U/L High 46-116 [facility] ALT [Catalytic activity/Vol] 27 U/L 16-63 [facility] AST [Catalytic activity/Vol] 16 U/L 15-37 [facility] Bilirubin [Mass/Vol] 0.4 mg/dL 0.2-1.0 [facility] Calcium [Mass/Vol] 9.0 mg/dL 8.5-10.1 [facility] Chloride [Moles/Vol] 101 mmol/L 98-107 [facility] CO2 [Moles/Vol] 27.1 mmol/L 21.0-32.0 [facility] Creatinine [Mass/Vol] 1.18 mg/dL 0.70-1.30 [facility] GFR/1.73 sq M.predicted MDRD (S/P/Bld) [Vol rate/Area] mL/min/{1.73_m2} >=60 [facility] Glucose [Mass/Vol] 248 mg/dL High 74-106 [facility] Potassium [Moles/Vol] 4.5 mmol/L 3.5-5.1 [facility] Protein [Mass/Vol] 6.5 g/dL 6.4-8.2 [facility] Sodium [Moles/Vol] 136 mmol/L 136-145 [facility] Urea nitrogen [Mass/Vol] 21.0 mg/dL High 7.0-18.0 [facility] Urea nitrogen/Creatinine [Mass ratio] 17.8 mg/mg [facility] Laboratory - Hematology and Cell countson 04-07-2024 HbA1c (Bld) [Mass fraction] 8.7 % High 4.5-6.2 [facility] Comment on above: ADA RECOMMENDED LIMI T 4.0 - 6.0ADA THERAPEUTIC TARGET < 7.0ACTION SUGGESTED> 7.0 Immature granulocytes/100 WBC (Bld) 0.2 % 0.0-0.5 [facility] Leukocytes [#/volume] correc layton for nucleated erythrocytes in Blood by Automated counon 04-07-2024 WBC corrected for nucl RBC Auto (Bld) [#/Vol] 4.5 10 3/uL 4.0-11.0 [facility] Lymphocytes Auto (Bld) [#/Vo l]on 04-07-2024 Lymphocytes (Bld) [#/Vol] 0.7 10 3/uL Low 1.2-3.8 [facility] Lymphocytes/100 WBC Auto (Bl d)on 04-07-2024 Lymphocytes/100 WBC (Bld) 16.1 % Low 20.5-60.0 [facility] MCH Auto (RBC) [Entitic mass ]on 04-07-2024 MCH (RBC) [Entitic mass] 32.7 pg 25.9-34.0 [facility] MCHC Auto (RBC) [Mass/Vol]on 04-07-2024 MCHC (RBC) [Mass/Vol] 33.3 g/dL 29.9-35.2 [facility] MCV Auto (RBC) [Entitic vol] on 04-07-2024 MCV (RBC) [Entitic vol] 98.4 fL High 80.0-94.0 [facility] Monocytes Auto (Bld) [#/Vol] on 04-07-2024 Monocytes (Bld) [#/Vol] 0.4 10 3/uL 0.3-0.8 [facility] Monocytes/100 WBC Auto (Bld) on 04-07-2024 Monocytes/100 WBC (Bld) 9.1 % 1.7-12.0 [facility] Neutrophils Auto (Bld) [#/Vo l]on 04-07-2024 Neutrophils (Bld) [#/Vol] 3.3 10 3/uL 1.4-6.5 [facility] Neutrophils/100 WBC Auto (Bl d)on 04-07-2024 Neutrophils/100 WBC (Bld) 73.0 % 43.0-75.0 [facility] No Panel Informationon 04-07 Eosinophils # (Auto) 0.0 10 3/uL 0.0-0.7 [facility] Immature Granulocyte # (Auto) 0.01 10 3/uL 0.00-0.03 [facility] Platelet mean volume Auto (B ld) [Entitic vol]on 04-07-2024 Platelet mean volume (Bld) [Entitic vol] 9.7 fL 9.5-13.5 [facility] Platelets Auto (Bld) [#/Vol] on 04-07-2024 Platelets (Bld) [#/Vol] 125 10 3/uL Low 150-450 [facility] RBC Auto (Bld) [#/Vol]on RBC (Bld) [#/Vol] 4.28 10 6/uL Low 4.70-6.10 [facility] Serum or plasma albumin/glob ulin mass ratioon 04-07-2024 Albumin/Globulin [Mass ratio] 1.2 {ratio} [facility] Serum or plasma anion gap de terminationon 04-07-2024 Anion gap [Moles/Vol] 12.4 mmol/L [facility] Basophils Auto (Bld) [#/Vol] on 01-16-2024 Basophils (Bld) [#/Vol] 0.0 10 3/uL 0.0-0.1 [facility] Basophils/100 WBC Auto (Bld) on 01-16-2024 Basophils/100 WBC (Bld) 0.8 % 0.2-2.0 [facility] Eosinophils/100 WBC Auto (Bl d)on 01-16-2024 Eosinophils/100 WBC (Bld) 1.5 % 0.9-7.0 [facility] Erythrocyte distribution wid th Auto (RBC) [Ratio]on 01-16-2024 Erythrocyte distribution width (RBC) [Ratio] 13.0 % 11.0-15.0 [facility] Estimated glomerular filtrat ion rate (GFR) non- Americanon 01-16-2024 GFR/1.73 sq M.predicted among non-blacks MDRD (S/P/Bld) [Vol rate/Area] 56 mL/min/{1.73_m2} Low >=60 [facility] Hematocrit Auto (Bld) [Volum e fraction]on 01-16-2024 Hematocrit (Bld) [Volume fraction] 39.5 % Low 42.0-54.0 [facility] Hemoglobin [Mass/volume] in Bloodon 01-16-2024 Hemoglobin (Bld) [Mass/Vol] 13.3 g/dL Low 14.0-18.0 [facility] Laboratory - Chemistry and C hemistry - challengeon 01-16-2024 Calcium [Mass/Vol] 9.1 mg/dL 8.5-10.1 [facility] Chloride [Moles/Vol] 100 mmol/L 98-107 [facility] CO2 [Moles/Vol] 32.5 mmol/L High 21.0-32.0 [facility] Creatinine [Mass/Vol] 1.23 mg/dL 0.70-1.30 [facility] GFR/1.73 sq M.predicted MDRD (S/P/Bld) [Vol rate/Area] mL/min/{1.73_m2} >=60 [facility] Glucose [Mass/Vol] 244 mg/dL High 74-106 [facility] Potassium [Moles/Vol] 4.7 mmol/L 3.5-5.1 [facility] Sodium [Moles/Vol] 137 mmol/L 136-145 [facility] Urea nitrogen [Mass/Vol] 15.0 mg/dL 7.0-18.0 [facility] Urea nitrogen/Creatinine [Mass ratio] 12.2 mg/mg [facility] Laboratory - Hematology and Cell countson 01-16-2024 Immature granulocytes/100 WBC (Bld) 0.2 % 0.0-0.5 [facility] Laboratory - Urinalysison Protein (U) [Mass/Vol] 32.8 mg/dL High <=11.9 [facility] Leukocytes [#/volume] correc layton for nucleated erythrocytes in Blood by Automated counon 01-16-2024 WBC corrected for nucl RBC Auto (Bld) [#/Vol] 4.8 10 3/uL 4.0-11.0 [facility] Lymphocytes Auto (Bld) [#/Vo l]on 01-16-2024 Lymphocytes (Bld) [#/Vol] 0.9 10 3/uL Low 1.2-3.8 [facility] Lymphocytes/100 WBC Auto (Bl d)on 01-16-2024 Lymphocytes/100 WBC (Bld) 17.7 % Low 20.5-60.0 [facility] MCH Auto (RBC) [Entitic mass ]on 01-16-2024 MCH (RBC) [Entitic mass] 32.8 pg 25.9-34.0 [facility] MCHC Auto (RBC) [Mass/Vol]on 01-16-2024 MCHC (RBC) [Mass/Vol] 33.7 g/dL 29.9-35.2 [facility] MCV Auto (RBC) [Entitic vol] on 01-16-2024 MCV (RBC) [Entitic vol] 97.3 fL High 80.0-94.0 [facility] Monocytes Auto (Bld) [#/Vol] on 01-16-2024 Monocytes (Bld) [#/Vol] 0.4 10 3/uL 0.3-0.8 [facility] Monocytes/100 WBC Auto (Bld) on 01-16-2024 Monocytes/100 WBC (Bld) 9.2 % 1.7-12.0 [facility] Neutrophils Auto (Bld) [#/Vo l]on 01-16-2024 Neutrophils (Bld) [#/Vol] 3.4 10 3/uL 1.4-6.5 [facility] Neutrophils/100 WBC Auto (Bl d)on 01-16-2024 Neutrophils/100 WBC (Bld) 70.6 % 43.0-75.0 [facility] No Panel Informationon 01-15 Eosinophils # (Auto) 0.1 10 3/uL 0.0-0.7 [facility] Immature Granulocyte # (Auto) 0.01 10 3/uL 0.00-0.03 [facility] Urine Random Creatinine 117.34 mg/dL 20.0 0-300. 00 [facility] Platelet mean volume Auto (B ld) [Entitic vol]on 01-16-2024 Platelet mean volume (Bld) [Entitic vol] 9.5 fL 9.5-13.5 [facility] Platelets Auto (Bld) [#/Vol] on 01-16-2024 Platelets (Bld) [#/Vol] 123 10 3/uL Low 150-450 [facility] RBC Auto (Bld) [#/Vol]on RBC (Bld) [#/Vol] 4.06 10 6/uL Low 4.70-6.10 [facility] Serum or plasma anion gap de terminationon 01-16-2024 Anion gap [Moles/Vol] 9.2 mmol/L [facility] Urine protein/creatinine rat ioon 01-16-2024 Protein/Creatinine (U) [Ratio] 0.28 [facility] Albumin [Mass/volume] in Ser um or Plasmaon 12-19-2023 Albumin [Mass/Vol] 3.9 g/dL 2.9-4.4 [facility] Basophils Auto (Bld) [#/Vol] on 12-19-2023 Basophils (Bld) [#/Vol] 0.0 10 3/uL 0.0-0.1 [facility] Basophils/100 WBC Auto (Bld) on 12-19-2023 Basophils/100 WBC (Bld) 0.6 % 0.2-2.0 [facility] Eosinophils/100 WBC Auto (Bl d)on 12-19-2023 Eosinophils/100 WBC (Bld) 1.1 % 0.9-7.0 [facility] Erythrocyte distribution wid th Auto (RBC) [Ratio]on 12-19-2023 Erythrocyte distribution width (RBC) [Ratio] 12.9 % 11.0-15.0 [facility] Estimated glomerular filtrat ion rate (GFR) non- Americanon 12-19-2023 GFR/1.73 sq M.predicted among non-blacks MDRD (S/P/Bld) [Vol rate/Area] 43 mL/min/{1.73_m2} >=60 [facility] Globulin Calc (S) [Mass/Vol] on 12-19-2023 Globulin (S) [Mass/Vol] 3.1 g/dL [facility] Glucose mean value [Mass/vol ume] in Blood Estimated from glycated hemoglobinon 12-19-2023 Average glucose Estimated from glycated hemoglobin (Bld) [Mass/Vol] 166 mg/dL [facility] Hematocrit Auto (Bld) [Volum e fraction]on 12-19-2023 Hematocrit (Bld) [Volume fraction] 38.3 % 42.0-54.0 [facility] Hemoglobin [Mass/volume] in Bloodon 12-19-2023 Hemoglobin (Bld) [Mass/Vol] 12.3 g/dL 14.0-18.0 [facility] IgA [Mass/volume] in Serum o r Plasmaon 12-19-2023 IgA [Mass/Vol] 112 mg/dL 61-437 [facility] IgG [Mass/volume] in Serum o r Plasmaon 12-19-2023 IgG [Mass/Vol] 805 mg/dL 603-1613 [facility] IgM [Mass/volume] in Serum o r Plasmaon 12-19-2023 IgM [Mass/Vol] 48 mg/dL 15-143 [facility] Immunoglobulin light chains. kappa.free [Mass/volume] in Serumon 12-19-2023 Immunoglobulin light chains.kappa.free (S) [Mass/Vol] 33.8 mg/L 3.3-19.4 [facility] Immunoglobulin light chains. kappa.free/Immunoglobulin light chains.lambda.free [Sandra 12-19-2023 Immunoglobulin light chains.kappa.free/Immun oglobulin light chains.lambda.free (S) [Mass ratio] 1.61 0.26-1.65 [facility] Comment on above: Performed at: - [address] [id number] Director: Juan José Butler PhD, Phone: [phone] Immunoglobulin light chains. lambda.free [Mass/volume] in Serum or Plasmaon 12-19-2023 Immunoglobulin light chains.lambda.free [Mass/Vol] 21.0 mg/L 5.7-26.3 [facility] Iron binding capacity [Mass/ volume] in Serum or Plasmaon 12-19-2023 Iron binding capacity [Mass/Vol] 294.0 ug/dL 250.0-450. 0 [facility] Iron saturation [Mass Fracti on] in Serum or Plasmaon 12-19-2023 Iron saturation [Mass fraction] 26.9 % [facility] Laboratory - Chemistry and C hemistry - challengeon 12-19-2023 Albumin [Mass/Vol] 3.4 g/dL 3.4-5.0 [facility] ALP [Catalytic activity/Vol] 88 U/L 46-116 [facility] ALT [Catalytic activity/Vol] 36 U/L 16-63 [facility] AST [Catalytic activity/Vol] 14 U/L 15-37 [facility] Bilirubin [Mass/Vol] 0.3 mg/dL 0.2-1.0 [facility] Calcium [Mass/Vol] 9.3 mg/dL 8.5-10.1 [facility] Chloride [Moles/Vol] 102 mmol/L 98-107 [facility] CO2 [Moles/Vol] 31.6 mmol/L 21.0-32.0 [facility] Cobalamin (Vitamin B12) [Mass/Vol] 386.0 pg/mL 193.0-986. 0 [facility] Creatinine [Mass/Vol] 1.55 mg/dL 0.70-1.30 [facility] Ferritin [Mass/Vol] 94.0 ng/mL 26.0-388.0 [facility] GFR/1.73 sq M.predicted MDRD (S/P/Bld) [Vol rate/Area] 52 mL/min/{1.73_m2} >=60 [facility] Glucose [Mass/Vol] 217 mg/dL 74-106 [facility] Iron [Mass/Vol] 79.0 ug/dL 65.0-175.0 [facility] Potassium [Moles/Vol] 5.0 mmol/L 3.5-5.1 [facility] Protein [Mass/Vol] 6.5 g/dL 6.4-8.2 [facility] Sodium [Moles/Vol] 141 mmol/L 136-145 [facility] TSH Qn 0.974 m[IU]/L 0.358-3.74 0 [facility] Urea nitrogen [Mass/Vol] 21.0 mg/dL 7.0-18.0 [facility] Urea nitrogen/Creatinine [Mass ratio] 13.5 mg/mg [facility] Laboratory - Hematology and Cell countson 12-19-2023 HbA1c (Bld) [Mass fraction] 7.4 % 4.5-6.2 [facility] Comment on above: ADA RECOMMENDED LIMI T 4.0 - 6.0ADA THERAPEUTIC TARGET < 7.0ACTION SUGGESTED> 7.0 Immature granulocytes/100 WBC (Bld) 0.2 % 0.0-0.5 [facility] Leukocytes [#/volume] correc layton for nucleated erythrocytes in Blood by Automated counon 12-19-2023 WBC corrected for nucl RBC Auto (Bld) [#/Vol] 5.4 10 3/uL 4.0-11.0 [facility] Lymphocytes Auto (Bld) [#/Vo l]on 12-19-2023 Lymphocytes (Bld) [#/Vol] 1.1 10 3/uL 1.2-3.8 [facility] Lymphocytes/100 WBC Auto (Bl d)on 12-19-2023 Lymphocytes/100 WBC (Bld) 20.0 % 20.5-60.0 [facility] MCH Auto (RBC) [Entitic mass ]on 12-19-2023 MCH (RBC) [Entitic mass] 32.0 pg 25.9-34.0 [facility] MCHC Auto (RBC) [Mass/Vol]on 12-19-2023 MCHC (RBC) [Mass/Vol] 32.1 g/dL 29.9-35.2 [facility] MCV Auto (RBC) [Entitic vol] on 12-19-2023 MCV (RBC) [Entitic vol] 99.7 fL 80.0-94.0 [facility] Monocytes Auto (Bld) [#/Vol] on 12-19-2023 Monocytes (Bld) [#/Vol] 0.5 10 3/uL 0.3-0.8 [facility] Monocytes/100 WBC Auto (Bld) on 12-19-2023 Monocytes/100 WBC (Bld) 9.2 % 1.7-12.0 [facility] Neutrophils Auto (Bld) [#/Vo l]on 12-19-2023 Neutrophils (Bld) [#/Vol] 3.7 10 3/uL 1.4-6.5 [facility] Neutrophils/100 WBC Auto (Bl d)on 12-19-2023 Neutrophils/100 WBC (Bld) 68.9 % 43.0-75.0 [facility] No Panel Informationon 12-18 C-Reactive Protein, Quantitative <0.50 mg/dL <=0.50 [facility] Eosinophils # (Auto) 0.1 10 3/uL 0.0-0.7 [facility] Folate 22.10 ng/mL 8.60-58.90 [facility] Immature Granulocyte # (Auto) 0.01 10 3/uL 0.00-0.03 [facility] Protein Electrophoresis M-Delfino Not Observed g/dL Not Observed [facility] Protein Electrophoresis Note Comment . [facility] Comment on above: Protein electrophore sis scan will follow via computer,mail, or cupola liner delivery. Platelet mean volume Auto (B ld) [Entitic vol]on 12-19-2023 Platelet mean volume (Bld) [Entitic vol] 9.6 fL 9.5-13.5 [facility] Platelets Auto (Bld) [#/Vol] on 12-19-2023 Platelets (Bld) [#/Vol] 136 10 3/uL 150-450 [facility] Protein [Mass/volume] in Ser um or Plasmaon 12-19-2023 Protein [Mass/Vol] 6.2 g/dL 6.0-8.5 [facility] RBC Auto (Bld) [#/Vol]on RBC (Bld) [#/Vol] 3.84 10 6/uL 4.70-6.10 [facility] Serum globulin measurement ( mass/volume)on 12-19-2023 Globulin (S) [Mass/Vol] 2.3 g/dL 2.2-3.9 [facility] Serum or plasma albumin/glob ulin mass ratioon 12-19-2023 Albumin/Globulin [Mass ratio] 1.1 {ratio} [facility] Albumin/Globulin [Mass ratio] 1.7 {ratio} 0.7-1.7 [facility] Serum or plasma alpha 1 glob ulin measurement by electrophoresis (mass/volume)on 12-19-2023 Alpha 1 globulin Elph [Mass/Vol] 0.2 g/dL 0.0-0.4 [facility] Serum or plasma alpha 2 glob ulin measurement by electrophoresis (mass/volume)on 12-19-2023 Alpha 2 globulin Elph [Mass/Vol] 0.6 g/dL 0.4-1.0 [facility] Serum or plasma anion gap de terminationon 12-19-2023 Anion gap [Moles/Vol] 12.4 mmol/L [facility] Serum or plasma beta globuli n measurement by electrophoresis (mass/volume)on 12-19-2023 Beta globulin Elph [Mass/Vol] 0.8 g/dL 0.7-1.3 [facility] Serum or plasma gamma globul in measurement by electrophoresis (mass/volume)on 12-19-2023 Gamma globulin Elph [Mass/Vol] 0.7 g/dL 0.4-1.8 [facility] Serum or plasma immunoelectr ophoresis interpretationon 12-19-2023 Interpretation IEP [Interp] Comment . [facility] Comment on above: No monoclonality [...] in adult Healthy Weight Tips; Status:Complete; Done: [id number] Some eating tips that can help you lose weight.; Status:Complete; Done: [id number] Diabetes Hemoglobin A1C; Status:Canceled; Hyperlipidemia ALT - [...] today sinus rhythm 85 first-degree AV block VT interval 218 ms compared to EKG of 09/05/2022 heart rate has decreased. 1 Uses cane as ambulatory aid, no falls Surgical History Problems History of Arm surgery History of Cataract surgery History of Colon surgery History of Complete colonoscopy History of Tonsillectomy Current Meds Medication NameInstruction Acetaminophen 325 MG Or (more content not included)... Normal [facility] [place] Tobacco Screening.on 023 Fall risk assessment a) No falls within the last year [facility] [employer] tammy 250 DO Work Phone: Tobacco use status CPHS b) No M [facility] [employer] 250 DO Work Phone: Office Visit (Cardiology)on [...] up in 3 months1 1 Amended By: Mragie Garcia; Dec 17 2022 3:05 PM ESTChief [...] was prompted by a hospital stay at [facility]. Patient was admitted in transfer from [facility], with hypoxemia cough congestion, treated for [...] Glucose Klor- (more content not included)... Normal [facility] [place] Tobacco Screening.on 023 Adult depression screening assessment No [facility] [employer] 250 DO Work Phone: Fall risk assessment a) No falls within the last year [facility] [employer] 250 DO Work Phone: Tobacco use status CPHS b) No M [facility] [employer] 250 DO Work Phone: [facility] CARDIAC STRESS/REST INJE CTIONon 12-11-2022 [facility] CARDIAC STRESS/REST INJECTION Patient Name: JOSE L AMES STUDY: MYOCARDIAL PERFUSION STRESS TEST WITH LEXISCAN Performing facility: [facility], [address] [place] [address], [place] [address], [address] Provider: Cathleen Lopez MD, [facility] PCP: Dr. 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 Diabetes; High Cholesterol; HTN; SOB; COPD; Quit smoking 2 years ago. COMPARISON: No comparison. ACCESSION NUMBER(S): [id number]; [id number]; [id number] ORDERING CLINICIAN: CATHLEEN LOPEZ TECHNIQUE: ONE DAY [...] Electronically signed by: VIET HALL MD Normal [facility] No Panel Informationon 12-11 Normal [facility] [employer] tammy 250 DO Work Phone: Office Visit [...] is being seen for CAD referral S/[facility]. History of Present Illness 82-year-old with multiple [...] was prompted by a hospital stay at [facility]. Patient was admitted in transfer from [facility], with hypoxemia cough congestion, treated for [...] today sinus rhythm 85 first-degree AV block VT interval 218 ms compared to EKG of [...] questions arise, Sincerely, Cathleen Lopez MD [facility] I told patient that he should bring his inhalers and use them prior to his perfusion study. Current (more content not included)... Normal [facility] [place] Tobacco Screening.on 023 Adult depression screening assessment No [facility] [employer] 250 DO Work Phone: Fall risk assessment a) No falls within the last year [facility] [employer] 250 DO Work Phone: Tobacco use status CPHS b) No [facility] [employer] 250 DO Work Phone: CHEMISTRYOrdered By: Lab ROP User on 09-19-2022 Glucose [Mass/Vol] 110 mg/dL High 55 - 99 mg/dL [facility] POC Subsection Comment on above: Result Comment: [employer] POC Device SN [id number] Invalid Interpretation Code [facility] POC Subsection POC User ID [id number] Invalid Interpretation Code [facility] POC Subsection POC Username LOULOU WRIGHT Invalid Interpretation Code [facility] POC Subsection Glucose [Mass/Vol] 93 mg/dL Normal 55 - 99 mg/dL [facility] POC Subsection Comment on above: Result Comment: [employer] POC Device SN [id number] Invalid Interpretation Code [facility] POC Subsection POC User ID [id number] Invalid Interpretation Code [facility] POC Subsection POC Username KRISTEN SHEPPARD Invalid Interpretation Code [facility] POC Subsection CHEMISTRYOrdered By: Lab ROP User on 09-18-2022 Glucose [Mass/Vol] 187 mg/dL High 55 - 99 mg/dL [facility] POC Subsection Comment on above: Result Comment: [employer] POC Device SN [id number] Invalid Interpretation Code [facility] POC Subsection POC User ID [id number] Invalid Interpretation Code [facility] POC Subsection POC [...] rate/Area] mL/min/1.73 m2 Normal >=59mL/min /1.73 m2 [facility] Chem S GFR/1.73 sq M.predicted among non-blacks MDRD (S/P/Bld) [Vol rate/Area] 53 mL/min/1.73 m2 Low >=59mL/min /1.73 m2 [facility] Chem S Glucose [Mass/Vol] 89 mg/dL Normal 55 - 199 mg/dL [facility] Potassium [Moles/Vol] 4.2 mmol/L Normal 3.5 - 5.3 mmol/L [facility] Sodium [Moles/Vol] 135 mmol/L Normal 135 - 145 mmol/L [facility] Urea nitrogen [Mass/Vol] 20 mg/dL Normal 5 - 21 mg/dL [facility] Urea nitrogen/Creatinine [Mass ratio] 15 mg/mg Normal 10 - 20 [facility] Remisol CHEMISTRYOrdered By: Omkar Angel on 09-17-2022 HbA1c (Bld) [Mass fraction] 9.8 % High <=5.9% [facility] ChemAutoSS CHEMISTRYOrdered By: SYSTEM SYSTEM on 09-10-2022 Anion gap [Moles/Vol] 11 mmol/L Normal 6 - 16 mEq/L [facility] Calcium [Mass/Vol] 8.3 mg/dL Low 8.9 - 11. 1 mg/dL [facility] Chloride [Moles/Vol] 93 mmol/L Low 101 - 1 11 mmol/L [facility] CO2 [Moles/Vol] 32 mmol/L High 21 - 31 mmol/L [facility] Remisol Creatinine [Mass/Vol] 1.1 mg/dL Normal 0.5 - 1.3 mg/dL [facility] Remisol GFR/1.73 sq M.predicted among blacks MDRD (S/P/Bld) [Vol rate/Area] mL/min/1.73 m2 Normal >=59mL/min /1.73 m2 [facility] Chem S GFR/1.73 sq M.predicted among non-blacks MDRD (S/P/Bld) [Vol rate/Area] mL/min/1.73 m2 Normal >=59mL/min /1.73 m2 [facility] Chem S Glucose [Mass/Vol] 281 mg/dL High 55 - 199 mg/dL [facility] Potassium [Moles/Vol] 4.3 mmol/L Normal 3.5 - 5.3 mmol/L [facility] Sodium [Moles/Vol] 132 mmol/L Low 135 - 145 mmol/L [facility] Urea nitrogen [Mass/Vol] 24 mg/dL High 5 - 21 mg/dL [facility] Urea nitrogen/Creatinine [Mass ratio] 22 mg/mg High 10 - 20 [facility] HEMATOLOGYOrdered By: SYSTEM SYSTEM on 09-10-2022 [...] 91.1 fL Normal 80.0 - 100.0 fL [facility] HemeAutoSS Platelet mean volume (Bld) [Entitic vol] 8.0 fL Normal 6.4 - 10.8 fL [facility] HemeAutoSS Platelets (Bld) [#/Vol] 218.0 E9/L Normal 150. 0 - 500.0 E9/L [facility] HemeAutoSS RBC (Bld) [#/Vol] 4.5 E12/L Normal 4.3 - 5.9 E12/L [facility] HemeAutoSS WBC corrected for nucl RBC Auto (Bld) [#/Vol] 6.3 E9/L Normal 4.0 - 11.0 E9/L [facility] HemeAutoSS COVID-19 SOFIAOrdered By: Ra daryl Velasquez on 09-08-2022 SARS-CoV+SARS-CoV-2 (COVID-19) Ag IA.rapid Ql (Resp) Negative Negative [facility] Comment on above: This is a duplicate [employer] SARS Antigen (DAVE) result to be used for statistical tracking purpose only. Creatinine and Glomerular fi ltration rate.predicted panel (S/P/Bld)Ordered By: Randolph Velasquez on 09-08-2022 Creatinine [Mass/Vol] 1.12 mg/dL 0.64-1.27 [facility] Estimated glomerular filtrat ion rate (GFR) non- AmericanOrdered By: Randolph Velasquez on 09-08-2022 GFR/1.73 sq M.predicted among non-blacks MDRD (S/P/Bld) [Vol rate/Area] > 60 mL/Min [facility] Glucose Glucometer (BldC) [M ass/Vol]Ordered By: Randolph Velasquez on 09-08-2022 Glucose [Mass/Vol] 342 mg/dL [facility] Comment on above: Random Glucose Refer ence Range is dependent on time and content of last meal. Glucose of more than 200 mg/dL in a nonstressed, ambulatory subject supports the diagnosis of Diabetes Mellitus. No Panel InformationOrdered By: Randolph Velasquez on 09-08-2022 SARS Antigen (LFIA) [facility] Estimated GFR () > 60 mL/Min [facility] Comment on above: GFR estimated refere nce range: According to KDOQI guidelines, <60 ml/min/1.73m2 is sufficient to diagnose a patient with chronic kidney disease. Pharmacy Creatinine Clearance (Chem 62.70 [facility] Serum or plasma anion gap de terminationOrdered By: Randolph Velasquez on 09-08-2022 Anion gap [Moles/Vol] 7.5 mmol/L 6.0-15.0 [facility] Serum or plasma calcium [place] urement (mass/volume)Ordered By: Randolph Velasquez on 09-08-2022 Calcium [Mass/Vol] 7.9 mg/dL 8.2-10.2 [facility] Serum or plasma chloride kathy surement (moles/volume)Ordered By: Randolph Velasquez on 09-08-2022 Chloride [Moles/Vol] 98 mmol/L 95-114 [facility] Serum or plasma glucose [place] urement (mass/volume)Ordered By: Randolph Velasquez on 09-08-2022 Glucose [Mass/Vol] 170 mg/dL 70-100 [facility] Comment on above: ADA recommended refe rence rangeRandom Glucose Reference Range is dependent on time and content of last meal. Glucose of more than 200 mg/dL in a nonstressed, ambulatory subject supports the diagnosis of Diabetes Mellitus. Serum or plasma potassium me asurement (moles/volume)Ordered By: Randolph Velasquez on 09-08-2022 Potassium [Moles/Vol] 3.4 mmol/L 3.5-5.1 [facility] Comment on above: Delta: 4.9 on Serum or plasma sodium measu rement (moles/volume)Ordered By: Randolph Velasquez on 09-08-2022 Sodium [Moles/Vol] 134 mmol/L 136-146 [facility] Serum or plasma total carbon dioxide measurement (moles/volume)Ordered By: Randolph Velasquez on 09-08-2022 CO2 [Moles/Vol] 31.9 mmol/L 22.0-30.0 [facility] Serum or plasma urea nitroge n measurement (mass/volume)Ordered By: Randolph Velasquez on 09-08-2022 Urea nitrogen [Mass/Vol] 22 mg/dL 9 [facility] Automated erythrocytes count in urine sediment (number/area)Ordered By: Randolph Velasquez on 09-07-2022 RBC Auto (Urine sed) [#/Area] Innumerable [HPF] 0-4 [facility] Automated leukocytes count i n urine sediment (number/area)Ordered By: Randolph Velasquez on 09-07-2022 WBC Auto (Urine sed) [#/Area] 1-2 [HPF] 0-4 [facility] Basophils Auto (Bld) [#/Vol] Ordered By: Randolph Velasquez on 09-07-2022 Basophils (Bld) [#/Vol] 0.0 10*3/uL 0.0-0.2 [facility] Basophils/100 WBC Auto (Bld) Ordered By: Randolph Velasquez on 09-07-2022 Basophils/100 WBC (Bld) 0.3 % . F [facility] Bilirubin Test strip Ql (U)O rdered By: Randolph Velasquez on 09-07-2022 Bilirubin Ql (U) Negative Negative [facility] Color Auto (U)Ordered By: Ra daryl Velasquez on 09-07-2022 Color (U) Yellow Yellow [facility] Eosinophils Auto (Bld) [#/Vo l]Ordered By: Randolph Velasquez on 09-07-2022 Eosinophils (Bld) [#/Vol] 0.0 10*3/uL 0.0-0.45 [facility] Eosinophils/100 WBC Auto (Bl d)Ordered By: Randolph Velasquez on 09-07-2022 Eosinophils/100 WBC (Bld) 0.0 % . [facility] Erythrocyte distribution wid th Auto (RBC) [Ratio]Ordered By: Randolph Velasquez on 09-07-2022 Erythrocyte distribution width (RBC) [Ratio] 13.9 % 12.0-14.8 [facility] Hematocrit Auto (Bld) [Volum e fraction]Ordered By: Randolph Velasquez on 09-07-2022 Hematocrit (Bld) [Volume fraction] 38.6 % 38.8-50.0 [facility] Hemoglobin [Mass/volume] in BloodOrdered By: Randolph Velasquez on 09-07-2022 Hemoglobin (Bld) [Mass/Vol] 12.6 g/dL 13.0-17.0 [facility] Ketones Auto test strip (U) [Mass/Vol]Ordered By: Randolph Velasquez on 09-07-2022 Ketones (U) [Mass/Vol] Trace Negative [facility] Laboratory - UrinalysisOrder ed By: Randolph Velasquez on 09-07-2022 Hyaline casts LM Ql (Urine sed) 0-8 [LPF] 0-8 [facility] Leukocytes [#/volume] correc layton for nucleated erythrocytes in Blood by Automated counOrdered By: Randolph Velasquez on 09-07-2022 WBC corrected for nucl RBC Auto (Bld) [#/Vol] 13.0 10*3/uL 4.1-10.5 [facility] Lymphocytes Auto (Bld) [#/Vo l]Ordered By: Randolph Velasquez on 09-07-2022 Lymphocytes (Bld) [#/Vol] 0.5 10*3/uL 1.00-4.8 [facility] Lymphocytes/100 WBC Auto (Bl d)Ordered By: Randolph Velasquez on 09-07-2022 Lymphocytes/100 WBC (Bld) 3.6 % . [facility] MCH Auto (RBC) [Entitic mass ]Ordered By: Randolph Velasquez on 09-07-2022 MCH (RBC) [Entitic mass] 30.2 pg 27.5-35.2 [facility] MCHC Auto (RBC) [Mass/Vol]Or dered By: Randolph Velasquez on 09-07-2022 MCHC (RBC) [Mass/Vol] 32.7 g/dL 32.5-35.6 [facility] MCV Auto (RBC) [Entitic vol] Ordered By: Randolph Velasquez on 09-07-2022 MCV (RBC) [Entitic vol] 92.1 fL 83.5-101 F [facility] Monocytes Auto (Bld) [#/Vol] Ordered By: Randolph Velasquez on 09-07-2022 Monocytes (Bld) [#/Vol] 0.6 10*3/uL 0.0-0.8 [facility] Monocytes/100 WBC Auto (Bld) Ordered By: Randolph Velasquez on 09-07-2022 Monocytes/100 WBC (Bld) 4.5 % . [facility] Neutrophils Auto (Bld) [#/Vo l]Ordered By: Randolph Velasqeuz on 09-07-2022 Neutrophils (Bld) [#/Vol] 11.9 10*3/uL 1.8-7.7 [facility] Neutrophils/100 WBC Auto (Bl d)Ordered By: Randolph Velasquez on 09-07-2022 Neutrophils/100 WBC (Bld) 91.6 % . [facility] Nitrite Test strip Ql (U)Ord ered By: Randolph Velasquez on 09-07-2022 Nitrite Ql (U) Negative Negative [facility] No Panel InformationOrdered By: Randolph Velasquez on 09-07-2022 Bedside Glucose #2 Comment Cleaned meter [facility] Bedside Glucose Comment See comment [facility] Comment on above: Glu2: Will Repeat Te st Nucleated erythrocytes [Pres ence] in Blood by Automated countOrdered By: Randolph Velasquez on 09-07-2022 Nucleated RBC Auto Ql (Bld) 0.0 /100{WBC} 0-0.5 [facility] Platelet adequacy [Presence] in Blood by Light microscopyOrdered By: Randolph Velasquez on 09-07-2022 Platelets LM Ql (Bld) Normal Normal [facility] Platelet mean volume Auto (B ld) [Entitic vol]Ordered By: Randolph Velasquez on 09-07-2022 Platelet mean volume (Bld) [Entitic vol] 8.3 fL 6.6-10.1 [facility] Platelet morphology finding [Identifier] in BloodOrdered By: Randolph Velasquez on 09-07-2022 Platelet morphology finding Nom (Bld) Normal Normal [facility] Platelets Auto (Bld) [#/Vol] Ordered By: Randolph Velasquez on 09-07-2022 Platelets (Bld) [#/Vol] 227 10*3/uL 150-450 [facility] Protein Auto test strip (U) [Mass/Vol]Ordered By: Randolph Velasquez on 09-07-2022 Protein (U) [Mass/Vol] 100 mg/dL Negative [facility] RBC Auto (Bld) [#/Vol]Ordere d By: Randolph Velasquez on 09-07-2022 RBC (Bld) [#/Vol] 4.19 10*6/uL 3.90-5.60 [facility] RBC morphologyOrdered By: Ra daryl Velasquez on 09-07-2022 RBC morphology finding Nom (Bld) Normal Normal [facility] Specific gravity Auto test s trip (U) [Rel density]Ordered By: Randolph Velasquez on 09-07-2022 Specific gravity (U) [Rel density] 1.030 1.001-1.03 0 [facility] Squamous epithelial cells de tection in urine sediment by light microscopyOrdered By: Randolph Velasquez on 09-07-2022 Epithelial cells.squamous LM Ql (Urine sed) None seen [HPF] 0-2 [facility] Urine bacteria detection by automated methodOrdered By: Randolph Velasquez on 09-07-2022 Bacteria Auto Ql (U) None seen None Seen [facility] Urine clarity by refractomet ry automatedOrdered By: Randolph Velasquez on 09-07-2022 Clarity Refractometry automated (U) Clear Clear [facility] Urine glucose measurement by automated test strip (mass/volume)Ordered By: Randolph Velasquez on 09-07-2022 Glucose Auto test strip (U) [Mass/Vol] >=1000 mg/dL Normal [facility] Urine hemoglobin detection b y automated test stripOrdered By: Randolph Velasquez on 09-07-2022 Hemoglobin Auto test strip Ql (U) 3+ Negative [facility] Urine leukocyte esterase det ection by automated test stripOrdered By: Randolph Velasquez on 09-07-2022 Leukocyte esterase Auto test strip Ql (U) 1+ Negative [facility] Urobilinogen Auto test strip (U) [Mass/Vol]Ordered By: Randolph Velasquez on 09-07-2022 Urobilinogen (U) [Mass/Vol] Normal mg/dL Normal [facility] WBC Auto (Bld) [#/Vol]Ordere d By: Randolph Velasquez on 09-07-2022 WBC (Bld) [#/Vol] 13.0 10*3/uL 4.1-10.5 [facility] pH Auto test strip (U)Ordere d By: Randolph Velasquez on 09-07-2022 pH (U) 5.5 [pH] 5.0-9.0 [facility] Band form neutrophils/100 WB C Manual cnt (Bld)Ordered By: Lakesha Haskins on 09-05-2022 Band form neutrophils/100 WBC (Bld) 17 % 0-5 [facility] Basophils/100 WBC Manual cnt (Bld)Ordered By: Lakesha Haksins on 09-05-2022 Basophils/100 WBC (Bld) 0 % 0-2 [facility] Eosinophils/100 WBC Manual c nt (Bld)Ordered By: Lakesha Haskins on 09-05-2022 Eosinophils/100 WBC (Bld) 0 % 1-3 [facility] Laboratory - Chemistry and C hemistry - challengeOrdered By: Randolph Velasquez on 09-05-2022 CO2 [Moles/Vol] 25.3 mmol/L 23.0-27.0 [facility] HCO3 (Bld) [Moles/Vol] 24.1 mmol/L 23.0-29.0 [facility] Lymphocytes/100 WBC Manual c nt (Bld)Ordered By: Lakesha Haskins on 09-05-2022 Lymphocytes/100 WBC (Bld) 8 % 18-42 [facility] Metamyelocytes/100 WBC Manua l cnt (Bld)Ordered By: Lakesha Haskins on 09-05-2022 Metamyelocytes/100 WBC (Bld) 1 % 0-0 [facility] Monocytes/100 WBC Manual cnt (Bld)Ordered By: Lakesha Haskins on 09-05-2022 Monocytes/100 WBC (Bld) 8 % 2-11 [facility] No Panel InformationOrdered By: Randolph Velasquez on 09-05-2022 Arterial Blood Base Excess 0.3 mmol/L -3.0-3.0 [facility] Arterial Blood Oxygen Content 8.3 mmol/L 6.6-9.7 [facility] Arterial Blood Oxygen Saturation 95.6 % 95.0-100.0 [facility] Arterial Blood Partial Pressure CO2 36.7 mm[Hg] 35.0-45.0 [facility] Arterial Blood Partial Pressure O2 75.3 mm[Hg] 80.0-100.0 [facility] Arterial Blood pH 7.44 7.35-7.45 [facility] Blood Gas Critical Value See comment [facility] Comment on above: Critical Value coles d on: 09/05/2022 at 11:59 Blood Gas Liter Flow 2 L/min [facility] Blood Gas Sample Site Right brachial [facility] FiO2 32 % [facility] Oxygen Delivery Device Nasal cannula [facility] Segmented neutrophils/100 WB C Manual cnt (Bld)Ordered By: Lakesha Haskins on 09-05-2022 Segmented neutrophils/100 WBC (Bld) 66 % 50-70 [facility] Troponin I.cardiac [Mass/vol ume] in Serum or Plasma by High sensitivity methodOrdered By: Lakesha Haskins on 09-05-2022 Troponin I.cardiac High sensitivity method [Mass/Vol] 97 pg/mL 0-20 [facility] Comment on above: Results calledat 064 0 on 09/05/22 ACETONE SERUMon 09-04-2022 ACETONE Negative Normal NEGATIVE [facility] Comment on above: Performed By: #### A CETON #### [facility] [address] [place] [address] Dr. Luis Manuel Asher BNPon 09-04-2022 Natriuretic peptide B (Bld) [Mass/Vol] 1464.0 pg/mL Normal <=1,800.0 [facility] Comment on above: Performed By: #### V ITAD #### [facility] [address] [address] [address] Luis aMnuel Asher CBC W MANUAL DIFFon 09-04-19 ATYPICAL LYMPH # Normal [facility] Comment on above: Performed By: #### C BCMAN #### [facility] [address] [address] [address] Luis Manuel Asher ATYPICAL LYMPH % Normal [facility] Comment on above: Performed By: #### C BCMAN #### [facility] [address] [address] [address] Luis Manuel Asher BAND # 0.7 103/ul Critically high 0.0-0.3 [facility] Comment on above: Performed By: #### C SANTOS #### [facility] [address] [place] [address] Dr. Luis Manuel Asher BAND % 6 % Critically high 0-5 [facility] Comment on above: Performed By: #### C SANTOS #### [facility] [address] [address] [address] Luis Manuel Asher BASOM # 0.00 103/ul Normal 0.00-0.10 [facility] Comment on above: Performed By: #### C SANTOS #### [facility] [address] [place] [address] Dr. Luis Manuel Asher BASOM % 0.0 % Critically low 0.2-2.0 [facility] Comment on above: Performed By: #### C SANTOS #### [facility] [address] [place] [address] Dr. Luis Manuel Asher BLAST # Normal [facility] Comment on above: Performed By: #### C SANTOS #### [facility] [address] [place] [address] Dr. Luis Manuel Asher BLAST % Normal [facility] Comment on above: Performed By: #### C SANTOS #### [facility] [address] [place] [address] Dr. Luis Manuel Asher CORRECTED WBC Normal 4.0-11.0 [facility] Comment on above: Performed By: #### C SANTOS #### [facility] [address] [place] [address] Dr. Luis Manuel Asher EOS # 0.00 103/ul Normal 0.00-0.70 [facility] Comment on above: Performed By: #### C SANTOS #### [facility] [address] [place] [address] Dr. Luis Manuel Asher EOS% 0.0 % Critically low 0.9-7.0 [facility] Comment on above: Performed By: #### C SANTOS #### [facility] [address] [address] [address] Luis Manuel Asher HCT 41.3 % Critically low 42.0-54.0 [facility] Comment on above: Performed By: #### C SANTOS #### [facility] [address] [address] [address] Luis Manuel Asher HGB 13.6 g/dl Critically low 14.0-18.0 [facility] Comment on above: Performed By: #### C SANTOS #### [facility] [address] [place] [address] Dr. Luis Manuel Asher LYMPHM # 0.79 103/ul Critically low 1.20-3.80 [facility] Comment on above: Performed By: #### C SANTOS #### [facility] [address] [place] [address] Dr. Luis Manuel Asher LYMPHM% 7.0 % Critically low 20.5-60.0 [facility] Comment on above: Performed By: #### C SANTOS #### [facility] [address] [place] [address] Dr. Luis Manuel Asher MCH 30.4 pg Normal 25.9-34.0 [facility] Comment on above: Performed By: #### C SANTOS #### [facility] [address] [place] [address] Dr. Luis Manuel Asher MCHC 32.9 g/dl Normal 29.9-35.2 [facility] Comment on above: Performed By: #### C SANTOS #### [facility] [address] [place] [address] Dr. Luis Manuel Asher MCV 92.2 fL Normal 80.0-94.0 [facility] Comment on above: Performed By: #### C SANTOS #### [facility] [address] [place] [address] Dr. Luis Manuel Asher METAMYELOCYTE # Normal [facility] Comment on above: Performed By: #### C SANTOS #### [facility] [address] [place] [address] Dr. Luis Manuel Asher METAMYELOCYTE % Normal [facility] Comment on above: Performed By: #### C SANTOS #### [facility] [address] [place] [address] Dr. Luis Manuel Asher MONOM# 1.36 103/ul Critically high 0.30-0.80 [facility] Comment on above: Performed By: #### Naz GRAHAM #### [facility] [address] [place] [address] Dr. Luis Manuel Asher MONOM% 12.0 % Normal 1.7-12.0 [facility] Comment on above: Performed By: #### C SANTOS #### [facility] [address] [place] [address] Dr. Luis Manuel Asher MPV 10.0 fL Normal 9.5-13.5 [facility] Comment on above: Performed By: #### Naz GRAHAM #### [facility] [address] [place] [address] Dr. Luis Manuel Asher MYELOCYTE # Normal [facility] Comment on above: Performed By: #### Naz GRAHAM #### [facility] [address] [place] [address] Dr. Luis Manuel Asher MYELOCYTE % Normal [facility] Comment on above: Performed By: #### Naz GRAHAM #### [facility] [address] [place] [address] Dr. Luis Manuel Asher NRBC Normal [facility] Comment on above: Performed By: #### Naz GRAHAM #### [facility] [address] [place] [address] Dr. Luis Manuel Asher PLT 251 103/ul Normal 150-450 [facility] Comment on above: Performed By: #### C SANTOS #### [facility] [address] [place] [address] Dr. Luis Manuel Asher RBC 4.48 106/ul Critically low 4.70-6.10 [facility] Comment on above: Performed By: #### C SANTOS #### [facility] [address] [place] [address] Dr. Luis Manuel Asher RDW 13.4 % Normal 11.0-15.0 [facility] Comment on above: Performed By: #### C SANTOS #### [facility] [address] [address] [address] Luis Manuel Asher SEG # 8.47 103/ul Critically high 1.40-6.50 [facility] Comment on above: Performed By: #### C BCMAN #### [facility] [address] [address] [address] Luis Manuel Asher SEG % 75.0 % Normal 43.0-75.0 [facility] Comment on above: Performed By: #### C BCMAN #### [facility] [id number] Luis Manuel Asher WBC 11.3 103/ul Critically high 4.0-11.0 [facility] Comment on above: Performed By: #### C BCMAN #### [facility] [address] [place] [address] Dr. Luis Manuel Asher CULTURE BLOODon 09-04-2022 Microscopic examination of blood, culture Culture Observations: NO GROWTH AT 5 DAYS. Normal [facility] Comment on above: Performed By: #### V ITAD #### [facility] [address] [place] [address] Dr. Luis Manuel Asher Microscopic examination of blood, culture Culture Observations: NO GROWTH AT 5 DAYS. Normal [facility] Comment on above: Performed By: #### V ITAD #### [facility] [address] [place] [address] Dr. Luis Manuel Asher Covid-19 PCR (CVDTB)on SARS-CoV-2 (COVID-19) RNA ABE+probe Ql (Unsp spec) Not detected Normal NOT DETECTED [facility] Comment on above: Result Comment: When [...] for this test is supported by the [place] of Health and Human Service's declaration that [...] By: #### V ITAD #### [facility] [address] [place] [address] Dr. Luis Manuel Asher INFLUENZA A AND B AGon 09-04 INFLUANEGH SEE BELOW Normal [facility] Comment on above: Result Comment: Nega tive for Flu A protein angiten. Infection due to Flu A cannot be ruled out. Flu A angiten in the sample may be below the detection limit of the test. Performed By: #### A CETON #### [facility] [address] [place] [address] Dr. Luis Manuel Asher INFLUBNEGH SEE BELOW Normal [facility] Comment on above: Result Comment: Nega tive for Flu B protein antigen. Infection due to Flu B cannot be ruled out. Flu B antigen in the sample may be below the detection limit of the test. Performed By: #### A CETON #### [facility] [address] [place] [address] Dr. Luis Manuel Asher INFLUENZA A AG Negative Normal NEGATIVE SEE COMMENT [facility] Comment on above: Performed By: #### A CETON #### [facility] [address] [place] [address] Dr. Luis Manuel Asher INFLUENZA B AG Negative Normal NEGATIVE SEE COMMENT [facility] Comment on above: Performed By: #### A CETON #### [facility] [address] [place] [address] Dr. Luis Manuel Asher LACTATE/LACTIC ACIDon 2022 Lactate [Moles/Vol] 4.0 mmol/L Critically high 0.4-1.9 [facility] Comment on above: Performed By: #### L ACT #### [facility] [address] [place] [address] Dr. Luis Manuel Asher Laboratory - Chemistry and C hemistry - challengeOrdered By: Lakesha Haskins on 09-04-2022 Natriuretic peptide B (Bld) [Mass/Vol] 200.0 pg/mL 5-100 [facility] Myelocytes/100 WBC Manual cn t (Bld)Ordered By: Lakesha Haskins on 09-04-2022 Myelocytes/100 WBC (Bld) 4 % 0-0 [facility] POINT OF CARE GLUCOSEon 01-0 Glucose [Mass/Vol] 362 mg/dL Critically high 74-106 [facility] Comment on above: Performed By: #### P OCGLUC #### [facility] [address] [place] [address] Dr. Luis Manuel Asher Glucose [Mass/Vol] 352 mg/dL Critically high -106 [facility] Comment on above: Performed By: #### V ITAD #### [facility] [address] [place] [address] Dr. Luis Manuel Asher PROF 14(COMP METB)on 023 Albumin [Mass/Vol] 2.6 g/dL Critically low 3.4-5.0 [facility] Comment on above: Performed By: #### V ITAD #### [facility] [address] [address] [address] Luis Manuel Asher Albumin/Globulin [Mass ratio] 0.5 {ratio} Normal [facility] Comment on above: Performed By: #### V ITAD #### [facility] [address] [address] [address] Luis Manuel Asher ALP [Catalytic activity/Vol] 163 U/L Critically high 46-116 [facility] Comment on above: Performed By: #### V ITAD #### [facility] [address] [address] [address] Luis Manuel Asher ALT [Catalytic activity/Vol] 98 U/L Critically high 16-63 [facility] Comment on above: Performed By: #### V ITAD #### [facility] [address] [address] [address] Luis Manuel Asher Anion gap [Moles/Vol] 14.9 mmol/L Normal [facility] Comment on above: Performed By: #### V ITAD #### [facility] [address] [address] [address] Luis Manuel Asher AST [Catalytic activity/Vol] 57 U/L Critically high 15-37 [facility] Comment on above: Performed By: #### V ITAD #### [facility] [address] [address] [address] Luis Manuel Asher Bilirubin [Mass/Vol] 0.4 mg/dL Normal 0.2-1.0 [facility] Comment on above: Performed By: #### V ITAD #### [facility] [address] [address] [address] Luis Manuel Asher Calcium [Mass/Vol] 9.4 mg/dL Normal 8.5-10.1 [facility] Comment on above: Performed By: #### V ITAD #### [facility] [address] [place] [address] Dr. Luis Manuel Asher Chloride [Moles/Vol] 100 mmol/L Normal 98-107 [facility] Comment on above: Performed By: #### V ITAD #### [facility] [address] [place] [address] Dr. Luis Manuel Asher CO2 [Moles/Vol] 27.2 mmol/L Normal 21.0-32.0 [facility] Comment on above: Performed By: #### V ITAD #### [facility] [address] [place] [address] Dr. Luis Manuel Asher Creatinine [Mass/Vol] 1.45 mg/dL Critically high 0.70-1.30 [facility] Comment on above: Performed By: #### V ITAD #### [facility] [address] [place] [address] Dr. Luis Manuel Asher EGFR-AF ANGOLAN 56 mL/min/1.73m2 Critically low >=60 [facility] Comment on above: Performed By: #### V ITAD #### [facility] [address] [address] [address] Luis Manuel Asher EGFR-NON AF ANGOLAN 46 mL/min/1.73m2 Critically low >=60 [facility] Comment on above: Performed By: #### V ITAD #### [facility] [address] [address] [address] Luis Manuel Asher Globulin (S) [Mass/Vol] 4.9 g/dL Normal [facility] Comment on above: Performed By: #### V ITAD #### [facility] [address] [address] [address] Luis Manuel Asher Glucose [Mass/Vol] 396 mg/dL Critically high 74-106 [facility] Comment on above: Performed By: #### V ITAD #### [facility] [address] [address] [address] Luis Manuel Asher Potassium [Moles/Vol] 4.1 mmol/L Normal 3.5-5.1 [facility] Comment on above: Performed By: #### V ITAD #### [facility] [address] [place] [address] Dr. Luis Manuel Asher Protein [Mass/Vol] 7.5 g/dL Normal 6.4-8.2 [facility] Comment on above: Performed By: #### V ITAD #### [facility] [address] [place] [address] Dr. Luis Manuel Asher Sodium [Moles/Vol] 138 mmol/L Normal 136-145 [facility] Comment on above: Performed By: #### V ITAD #### [facility] [address] [place] [address] Dr. Luis Manuel Asher Urea nitrogen [Mass/Vol] 26.0 mg/dL Critically high 7.0-18.0 [facility] Comment on above: Performed By: #### V ITAD #### [facility] [address] [place] [address] Dr. Luis Manuel Asher Urea nitrogen/Creatinine [Mass ratio] 17.9 mg/mg Normal [facility] Comment on above: Performed By: #### V ITAD #### [facility] [address] [place] [address] Dr. Luis Manuel Asher Plasma cells/100 leukocytes in Blood by Manual countOrdered By: Lakesha Haskins on 09-04-2022 Plasma cells/100 WBC Manual cnt (Bld) 1 % 0-0 [facility] Promyelocytes/100 WBC Manual cnt (Bld)Ordered By: Lakesha Haskins on 09-04-2022 Promyelocytes/100 WBC (Bld) 1 % 0-0 [facility] TROPONIN, HIGH SENSITIVITYon 09-04-2022 HSTROP 180.9 pg/mL Critically high 4.0-76.1 [facility] Comment on above: Result Comment: CUT- OFF POINTS HAVE BEEN ESTABLISHED BASED ON THE FOURTH UNIVERSAL DEFINITIONS OF MYOCARDIAL INFARCTION. THE UPPER REFERENCE LIMIT (URL) OF TROPONIN, DEFINED THE 99TH PERCENTILE OF cTnI DISTRIBUTION IN A REFERENCE POPULATION, HAS BEEN CONFIRMED THE DECISION THRESHOLD FOR DC DIAGNOSIS. Performed By: #### V ITAD #### [facility] [address] [place] [address] Dr. Luis Manuel Asher Urine lactic acid measuremen tOrdered By: Lakesha Haskins on 09-04-2022 Lactate (U) [Moles/Vol] 1.6 mmol/L 0.5-2.2 [facility] [facility] XR CHEST 1 Von 09-04-2022 XR [...] Gael KENNEY Date: 2022-09-04 17:54 Normal [facility] MICROALBUMIN URINEon 022 Albumin, Urine 30.0 ug/mL Normal Not Estab. [facility] Comment on above: Performed By: #### A CETON #### [facility] [address] [place] [address] Dr. Luis Manuel Asher CBC AUTO DIFFon 04-24-2022 BASO # 0.0 103/ul Normal 0.0-0.1 [facility] Comment on above: Performed By: #### C BC #### [facility] [address] [place] [address] Dr. Luis Manuel Asher Basophils/100 WBC (Bld) 0.5 % Normal 0.2-2.0 [facility] Comment on above: Performed By: #### C BC #### [facility] [address] [place] [address] Dr. Luis Manuel Asher EO # 0.1 103/ul Normal 0.0-0.7 [facility] Comment on above: Performed By: #### C BC #### [facility] [address] [place] [address] Dr. Luis Manuel Asher Eosinophils/100 WBC (Bld) 1.4 % Normal 0.9-7.0 [facility] Comment on above: Performed By: #### C BC #### [facility] [address] [place] [address] Dr. Luis Manuel Asher Erythrocyte distribution width (RBC) [Ratio] 13.1 % Normal 11.0-15.0 [facility] Comment on above: Performed By: #### C BC #### [facility] [address] [place] [address] Dr. Luis Manuel Asher Hematocrit (Bld) [Volume fraction] 39.3 % Critically low 42.0-54.0 [facility] Comment on above: Performed By: #### C BC #### [facility] [address] [place] [address] Dr. Luis Manuel Asher Hemoglobin (Bld) [Mass/Vol] 13.3 g/dL Critically low 14.0-18.0 [facility] Comment on above: Performed By: #### C BC #### [facility] [address] [place] [address] Dr. Luis Manuel Asher IG # 0.02 10e3/ul Normal 0.00-0.03 [facility] Comment on above: Performed By: #### C BC #### [facility] [address] [place] [address] Dr. Luis Manuel Asher IG % 0.3 % Normal 0.0-0.5 [facility] Comment on above: Performed By: #### C BC #### [facility] [address] [place] [address] Dr. Luis Manuel Asher LYMPH # 0.6 103/ul Critically low 1.2-3.8 [facility] Comment on above: Performed By: #### C BC #### [facility] [address] [place] [address] Dr. Luis Manuel Asher Lymphocytes/100 WBC (Bld) 9.1 % Critically low 20.5-60.0 [facility] Comment on above: Performed By: #### C BC #### [facility] [address] [place] [address] Dr. Luis Manuel Asher MANUAL DIFF REQ NO Normal [facility] Comment on above: Performed By: #### C BC #### [facility] [address] [place] [address] Dr. Luis Manuel Asher MCH (RBC) [Entitic mass] 31.0 pg Normal 25.9-34.0 [facility] Comment on above: Performed By: #### C BC #### [facility] [address] [place] [address] Dr. Luis Manuel Asher MCHC (RBC) [Mass/Vol] 33.8 g/dL Normal 29.9-35.2 [facility] Comment on above: Performed By: #### C BC #### [facility] [address] [place] [address] Dr. Luis Manuel Asher MCV (RBC) [Entitic vol] 91.6 fL Normal 80.0-94.0 [facility] Comment on above: Performed By: #### C BC #### [facility] [address] [place] [address] Dr. Luis Manuel Asher MONO # 0.7 103/ul Normal 0.3-0.8 [facility] Comment on above: Performed By: #### C BC #### [facility] [address] [place] [address] Dr. Luis Manuel Asher Monocytes/100 WBC (Bld) 10.3 % Normal 1.7-12.0 [facility] Comment on above: Performed By: #### C BC #### [facility] [address] [place] [address] Dr. Luis Manuel Asher NEUT # 5.0 103/ul Normal 1.4-6.5 [facility] Comment on above: Performed By: #### C BC #### [facility] [address] [address] [address] Luis Manuel Asher Neutrophils/100 WBC (Bld) 78.4 % Critically high 43.0-75.0 [facility] Comment on above: Performed By: #### C BC #### [facility] [address] [address] [address] Luis Manuel Asher Platelet mean volume (Bld) [Entitic vol] 9.7 fL Normal 9.5-13.5 [facility] Comment on above: Performed By: #### C BC #### [facility] [address] [place] [address] Dr. Luis Manuel Asher PLT 148 103/ul Critically low 150-450 [facility] Comment on above: Performed By: #### C BC #### [facility] [address] [place] [address] Dr. Luis Manuel Asher RBC 4.29 106/ul Critically low 4.70-6.10 [facility] Comment on above: Performed By: #### C BC #### [facility] [address] [address] [address] Luis Manuel Asher WBC 6.4 103/ul Normal 4.0-11.0 [facility] Comment on above: Performed By: #### C BC #### [facility] [address] [place] [address] Dr. Luis Manuel Asher GLYCOHEMOGLOBIN A1Con 2021 ADA RECOMMENDATION SEE BELOW Normal [facility] Comment on above: Result Comment: ADA RECOMMENDED LIMIT 4.0 - 6.0 ADA THERAPEUTIC TARGET < 7.0 ACTION SUGGESTED > 7.0 Performed By: #### A CETON #### [facility] [address] [place] [address] Dr. Luis Manuel Asher Glucose [Mass/Vol] 169 mg/dL Normal [facility] Comment on above: Performed By: #### A CETON #### [facility] [address] [address] [address] Luis Manuel Asher HbA1c (Bld) [Mass fraction] 7.5 % Critically high 4.5-6.2 [facility] Comment on above: Performed By: #### A CETON #### [facility] [address] [place] [address] Dr. Luis Manuel Asher PROF CHEM 8 (BAS METB)on Anion gap [Moles/Vol] 7.8 mmol/L Normal [facility] Comment on above: Performed By: #### B MP #### [facility] [address] [address] [address] Luis Manuel Asher Calcium [Mass/Vol] 8.3 mg/dL Critically low 8.5-10.1 [facility] Comment on above: Performed By: #### B MP #### [facility] [address] [place] [address] Dr. Luis Manuel Asher Chloride [Moles/Vol] 97 mmol/L Critically low 98-107 [facility] Comment on above: Performed By: #### B MP #### [facility] [address] [place] [address] Dr. Luis Manuel Asher CO2 [Moles/Vol] 29.6 mmol/L Normal 21.0-32.0 [facility] Comment on above: Performed By: #### B MP #### [facility] [address] [place] [address] Dr. Luis Manuel Asher Creatinine [Mass/Vol] 1.36 mg/dL Critically high 0.70-1.30 [facility] Comment on above: Performed By: #### B MP #### [facility] [address] [place] [address] Dr. Luis Manuel Asher EGFR-AF ANGOLAN >60 Normal >=60 [facility] Comment on above: Performed By: #### B MP #### [facility] [address] [place] [address] Dr. Luis Manuel Asher EGFR-NON AF ANGOLAN 50 mL/min/1.73m2 Critically low >=60 [facility] Comment on above: Performed By: #### B MP #### [facility] [address] [place] [address] Dr. Luis Manuel Asher Glucose [Mass/Vol] 331 mg/dL Critically high 74-106 T [facility] Comment on above: Performed By: #### B MP #### [facility] [address] [place] [address] Dr. Luis Manuel Asher Potassium [Moles/Vol] 4.4 mmol/L Normal 3.5-5.1 [facility] Comment on above: Performed By: #### B MP #### [facility] [address] [place] [address] Dr. Luis Manuel Asher Sodium [Moles/Vol] 130 mmol/L Critically low 136-145 Th e [facility] Comment on above: Performed By: #### B MP #### [facility] [address] [place] [address] Dr. Luis Manuel Asher Urea nitrogen [Mass/Vol] 15.0 mg/dL Normal 7.0-18.0 [facility] Comment on above: Performed By: #### B MP #### [facility] [address] [place] [address] Dr. Luis Manuel Asher Urea nitrogen/Creatinine [Mass ratio] 11.0 mg/mg Normal [facility] Comment on above: Performed By: #### B MP #### [facility] [address] [place] [address] Dr. Luis Manuel Asher FERRITINon 11-29-2021 Ferritin [Mass/Vol] 57.0 ng/mL Normal 17.9-464.0 [facility] Comment on above: Performed By: #### F ERR #### [facility] [address] [place] [address] Dr. Luis Manuel Asher GLYCOHEMOGLOBIN A1Con 2021 ADA RECOMMENDATION ADA THERAPEUTIC TARG ET 6.0 - 7.0 ACTION SUGGESTED > 7.0 Normal [facility] Comment on above: Performed By: #### A 1C #### [facility] [address] [place] [address] Dr. Luis Manuel Asher Glucose [Mass/Vol] 146 mg/dL Normal [facility] Comment on above: Performed By: #### A 1C #### [facility] [address] [place] [address] Dr. Luis Manuel Asher HbA1c (Bld) [Mass fraction] 6.7 % Critically high <=6.0 [facility] Comment on above: Performed By: #### A 1C #### [facility] [address] [place] [address] Dr. Luis Manuel Asher CBC AUTO DIFFon 10-30-2021 BASO # 0.0 103/ul Normal 0.0-0.1 [facility] Comment on above: Performed By: #### V ITAD #### [facility] [address] [place] [address] Dr. Luis Manuel Asher Basophils/100 WBC (Bld) 0.6 % Normal 0.2-2.0 [facility] Comment on above: Performed By: #### V ITAD #### [facility] [address] [place] [address] Dr. Luis Manuel Asher EO # 0.2 103/ul Normal 0.0-0.7 [facility] Comment on above: Performed By: #### V ITAD #### [facility] [address] [place] [address] Dr. Luis Manuel Asher Eosinophils/100 WBC (Bld) 2.9 % Normal 0.9-7.0 [facility] Comment on above: Performed By: #### V ITAD #### [facility] [address] [place] [address] Dr. Luis Manuel Asher Erythrocyte distribution width (RBC) [Ratio] 13.1 % Normal 11.0-15.0 [facility] Comment on above: Performed By: #### V ITAD #### [facility] [address] [place] [address] Dr. Luis Manuel Asher Hematocrit (Bld) [Volume fraction] 42.3 % Normal 42.0-54.0 [facility] Comment on above: Performed By: #### V ITAD #### [facility] [address] [place] [address] Dr. Luis Manuel Asher Hemoglobin (Bld) [Mass/Vol] 14.0 g/dL Normal 14.0-18.0 [facility] Comment on above: Performed By: #### V ITAD #### [facility] [address] [address] [address] Luis Manuel Asher IG # 0.02 10e3/ul Normal 0.00-0.03 [facility] Comment on above: Performed By: #### V ITAD #### [facility] [address] [address] [address] Luis Manuel Asher IG % 0.4 % Normal 0.0-0.5 [facility] Comment on above: Performed By: #### V ITAD #### [facility] [address] [place] [address] Dr. Luis Manuel Asher LYMPH # 0.8 103/ul Critically low 1.2-3.8 [facility] Comment on above: Performed By: #### V ITAD #### [facility] [address] [place] [address] Dr. Luis Manuel Asher Lymphocytes/100 WBC (Bld) 15.5 % Critically low 20.5-60.0 [facility] Comment on above: Performed By: #### V ITAD #### [facility] [address] [place] [address] Dr. Luis Manuel Asher MANUAL DIFF REQ NO Normal [facility] Comment on above: Performed By: #### V ITAD #### [facility] [address] [place] [address] Dr. Luis Manuel Asher MCH (RBC) [Entitic mass] 30.5 pg Normal 25.9-34.0 [facility] Comment on above: Performed By: #### V ITAD #### [facility] [address] [place] [address] Dr. Luis Manuel Asher MCHC (RBC) [Mass/Vol] 33.1 g/dL Normal 29.9-35.2 [facility] Comment on above: Performed By: #### V ITAD #### [facility] [address] [place] [address] Dr. Luis Manuel Asher MCV (RBC) [Entitic vol] 92.2 fL Normal 80.0-94.0 [facility] Comment on above: Performed By: #### V ITAD #### [facility] [address] [address] [address] Luis Manuel Asher MONO # 0.5 103/ul Normal 0.3-0.8 [facility] Comment on above: Performed By: #### V ITAD #### [facility] [address] [place] [address] Dr. Luis Manuel Asher Monocytes/100 WBC (Bld) 10.0 % Normal 1.7-12.0 T [facility] Comment on above: Performed By: #### V ITAD #### [facility] [address] [place] [address] Dr. Luis Manuel sAher NEUT # 3.6 103/ul Normal 1.4-6.5 [facility] Comment on above: Performed By: #### V ITAD #### [facility] [address] [place] [address] Dr. Luis Manuel Asher Neutrophils/100 WBC (Bld) 70.6 % Normal 43.0-75.0 [facility] Comment on above: Performed By: #### V ITAD #### [facility] [address] [place] [address] Dr. Luis Manuel Asher Platelet mean volume (Bld) [Entitic vol] 10.1 fL Normal 9.5-13.5 [facility] Comment on above: Performed By: #### V ITAD #### [facility] [address] [place] [address] Dr. Luis Manuel Asher PLT 161 103/ul Normal 150-450 [facility] Comment on above: Result Comment: smea r reviewed for platelets Performed By: #### V ITAD #### [facility] [address] [place] [address] Dr. Luis Manuel Asher RBC 4.59 106/ul Critically low 4.70-6.10 [facility] Comment on above: Performed By: #### V ITAD #### [facility] [address] [place] [address] Dr. Luis Manuel Asher WBC 5.1 103/ul Normal 4.0-11.0 [facility] Comment on above: Performed By: #### V ITAD #### [facility] [address] [place] [address] Dr. Luis Manuel Asher PROF 14(COMP METB)on 022 Albumin [Mass/Vol] 3.9 g/dL Normal 3.5-5.0 [facility] Comment on above: Performed By: #### T SH, CMP #### [facility] [address] [place] [address] Dr. Luis Manuel Asher Albumin/Globulin [Mass ratio] 1.2 {ratio} Normal [facility] Comment on above: Performed By: #### T SH, CMP #### [facility] [address] [place] [address] Dr. Luis Manuel Asher ALP [Catalytic activity/Vol] 85 U/L Normal 38-126 [facility] Comment on above: Performed By: #### T SH, CMP #### [facility] [address] [place] [address] Dr. Luis Manuel Asher ALT [Catalytic activity/Vol] 28 U/L Normal 21-72 [facility] Comment on above: Performed By: #### T SH, CMP #### [facility] [address] [place] [address] Dr. Luis Manuel Asher Anion gap [Moles/Vol] 8.6 mmol/L Normal [facility] Comment on above: Performed By: #### T SH, CMP #### [facility] [address] [place] [address] Dr. Luis Manuel Asher AST [Catalytic activity/Vol] 14 U/L Critically low 17-59 [facility] Comment on above: Performed By: #### T SH, CMP #### [facility] [address] [place] [address] Dr. Luis Manuel Asher Bilirubin [Mass/Vol] 0.4 mg/dL Normal 0.2-1.3 [facility] Comment on above: Performed By: #### T SH, CMP #### [facility] [address] [place] [address] Dr. Luis Manuel Asher Calcium [Mass/Vol] 9.7 mg/dL Normal 8.4-10.2 [facility] Comment on above: Performed By: #### T SH, CMP #### [facility] [address] [address] [address] Luis Manuel Asher Chloride [Moles/Vol] 99 mmol/L Normal 98-107 [facility] Comment on above: Performed By: #### T SH, CMP #### [facility] [address] [address] [address] Luis Manuel Asher CO2 [Moles/Vol] 32.2 mmol/L Critically high 22.0-30.0 [facility] Comment on above: Performed By: #### T SH, CMP #### [facility] [address] [address] [address] Luis Manuel Asher Creatinine [Mass/Vol] 1.20 mg/dL Normal 0.66-1.25 [facility] Comment on above: Performed By: #### T SH, CMP #### [facility] [address] [place] [address] Dr. Luis Manuel Asher EGFR-AF ANGOLAN >60 Normal >=60 [facility] Comment on above: Performed By: #### T SH, CMP #### [facility] [address] [place] [address] Dr. Luis Manuel Asher EGFR-NON AF ANGOLAN 58 mL/min/1.73m2 Critically low >=60 [facility] Comment on above: Performed By: #### T SH, CMP #### [facility] [address] [place] [address] Dr. Luis Manuel Asher Globulin (S) [Mass/Vol] 3.2 g/dL Normal [facility] Comment on above: Performed By: #### T SH, CMP #### [facility] [address] [address] [address] Luis Manuel Asher Glucose [Mass/Vol] 135 mg/dL Critically high 74-106 [facility] Comment on above: Performed By: #### T SH, CMP #### [facility] [address] [place] [address] Dr. Luis Manuel Asher Potassium [Moles/Vol] 4.8 mmol/L Normal 3.4-5.0 [facility] Comment on above: Performed By: #### T SH, CMP #### [facility] [address] [place] [address] Dr. Luis Manuel Asher Protein [Mass/Vol] 7.1 g/dL Normal 6.1-8.2 [facility] Comment on above: Performed By: #### T SH, CMP #### [facility] [address] [place] [address] Dr. Luis Manuel Asher Sodium [Moles/Vol] 135 mmol/L Critically low 137-145 Th [facility] Comment on above: Performed By: #### T SH, CMP #### [facility] [address] [place] [address] Dr. Luis Manuel Asher Urea nitrogen [Mass/Vol] 19.0 mg/dL Normal 9.0-20.0 [facility] Comment on above: Performed By: #### T SH, CMP #### [facility] [address] [place] [address] Dr. Luis Manuel Asher Urea nitrogen/Creatinine [Mass ratio] 15.8 mg/mg Normal [facility] Comment on above: Performed By: #### T SH, CMP #### [facility] [address] [place] [address] Dr. Luis Manuel Asher TSHon 10-30-2021 TSH 1.146 uIU/mL Normal 0.470-4.68 0 [facility] Comment on above: Performed By: #### V ITAD #### [facility] [address] [place] [address] Dr. Luis Manuel Asher TSH RANGE SEE BELOW Normal [facility] Comment on above: Result Comment: <0.3 4 UIU/ml HYPERTHYROID 0.34-5.60 UIU/ml EUTHYROID >5.60 UIU/ml HYPOTHYROID Performed By: #### V ITAD #### [facility] [address] [place] [address] Dr. Luis Manuel Asher VITAMIN D 25 OHon 10-30-2021 VIT D 25-OH 84.6 ng/mL Normal [facility] Comment on above: Performed By: #### V ITAD #### [facility] [address] [place] [address] Dr. Luis Manuel Asher VIT D RANGES SEE BELOW Normal [facility] Comment on above: Result Comment: <20 ng/mL Vit D deficient 20 - <30 ng/mL Vit D insufficient 30 - 100 ng/mL Vit D sufficient >100 ng/mL Potential Toxicity Performed By: #### V ITAD #### [facility] [address] [address] [address] Luis Manuel Asher Vital Signs Date Time Vital Sign Value Performing Clinician Facility 04-12-2025 13:00-0400 Body height 180.34 cm Erich Ball DO Work Phone: [facility] 04-12-2025 13:00-0400 Body mass index (BMI) [Ratio] 33.5 kg/m2 Erich Ball DO Work Phone: [facility] 04-12-2025 13:00-0400 Body weight 108.86 kg Erich Ball DO Work Phone: [facility] 04-12-2025 13:00-0400 Diastolic blood pressure 92 mm[Hg] Erich Ball DO Work Phone: [facility] 04-12-2025 13:00-0400 Heart rate 84 /min Erich Ball DO Work Phone: [facility] 04-12-2025 13:00-0400 Respiratory rate 16 /min Erich Ball DO Work Phone: [facility] 04-12-2025 13:00-0400 SaO2% (BldA) [Mass fraction] 93 % Erich Ball DO Work Phone: [facility] 04-12-2025 13:00-0400 Systolic blood pressure 142 mm[Hg] Erich Ball DO Work Phone: [facility] 01-21-2025 10:36-0400 Body height 182.88 cm Erich Ball DO Work Phone: [facility] 01-21-2025 10:36-0400 Body mass index (BMI) [Ratio] 33.3 kg/m2 Erich Ball DO Work Phone: [facility] 01-21-2025 10:36-0400 Body weight 111.35 kg Erich Ball DO Work Phone: [facility] 01-21-2025 10:36-0400 Diastolic blood pressure 89 mm[Hg] Erich Ball DO Work Phone: [facility] 01-21-2025 10:36-0400 Heart rate 83 /min Erich Ball DO Work Phone: [facility] 01-21-2025 10:36-0400 Respiratory rate 12 /min Erich Ball DO Work Phone: [facility] 01-21-2025 10:36-0400 Systolic blood pressure 139 mm[Hg] Erich Ball DO Work Phone: [facility] 12-14-2024 15:25-0400 Body height 182.88 cm Erich Ball DO Work Phone: [facility] 12-14-2024 15:25-0400 Body mass index (BMI) [Ratio] 32.3 kg/m2 Erich Ball DO Work Phone: [facility] 12-14-2024 15:25-0400 Body weight 107.95 kg Erich Ball DO Work Phone: [facility] 12-14-2024 15:25-0400 Diastolic blood pressure 74 mm[Hg] Erich Ball DO Work Phone: [facility] 12-14-2024 15:25-0400 Diastolic blood pressure 89 mm[Hg] Erich Ball DO Work Phone: [facility] 12-14-2024 15:25-0400 Heart rate 83 /min Erich Ball DO Work Phone: [facility] 12-14-2024 15:25-0400 Respiratory rate 12 /min Erich Ball DO Work Phone: [facility] 12-14-2024 15:25-0400 Systolic blood pressure 156 mm[Hg] Erich Ball DO Work Phone: [facility] 12-14-2024 15:25-0400 Systolic blood pressure 139 mm[Hg] Erich Ball DO Work Phone: [facility] 11-05-2024 09:02-0500 Body height 182.88 cm Erich Ball DO Work Phone: [facility] 11-05-2024 09:02-0500 Body mass index (BMI) [Ratio] 32.3 kg/m2 Erich Ball DO Work Phone: [facility] 11-05-2024 09:02-0500 Body weight 107.95 kg Erich Ball DO Work Phone: [facility] 11-05-2024 09:02-0500 Diastolic blood pressure 78 mm[Hg] Erich Ball DO Work Phone: [facility] 11-05-2024 09:02-0500 Heart rate 74 /min Erich Ball DO Work Phone: [facility] 11-05-2024 09:02-0500 Respiratory rate 20 /min Erich Ball DO Work Phone: [facility] 11-05-2024 09:02-0500 SaO2% (BldA) [Mass fraction] 97 % Erich Ball DO Work Phone: [facility] 11-05-2024 09:02-0500 Systolic blood pressure 136 mm[Hg] Erich Ball DO Work Phone: [facility] 10-22-2024 11:10-0500 Diastolic blood pressure 81 mm[Hg] Erich Ball DO Work Phone: [facility] 10-22-2024 11:10-0500 Heart rate 69 /min Erich Ball DO Work Phone: [facility] 10-22-2024 11:10-0500 Respiratory rate 16 /min Erich Ball DO Work Phone: [facility] 10-22-2024 11:10-0500 SaO2% (BldA) [Mass fraction] 96 % Erich Ball DO Work Phone: [facility] 10-22-2024 11:10-0500 Systolic blood pressure 159 mm[Hg] Erich Ball DO Work Phone: [facility] 10-22-2024 09:21-0500 Body height 182.88 cm Erich Ball DO Work Phone: [facility] 10-22-2024 09:21-0500 Body weight 110.22 kg Erich Ball DO Work Phone: [facility] 10-21-2024 11:43-0500 Body height 182.88 cm Erich Ball DO Work Phone: [facility] 10-21-2024 11:43-0500 Body mass index (BMI) [Ratio] 32.1 kg/m2 Erich Ball DO Work Phone: [facility] 10-21-2024 11:43-0500 Body weight 107.67 kg Erich Ball DO Work Phone: [facility] 10-21-2024 11:43-0500 Diastolic blood pressure 69 mm[Hg] Erich Ball DO Work Phone: [facility] 10-21-2024 11:43-0500 Heart rate 78 /min Erich Ball DO Work Phone: [facility] 10-21-2024 11:43-0500 Respiratory rate 20 /min Erich Ball DO Work Phone: [facility] 10-21-2024 11:43-0500 Systolic blood pressure 136 mm[Hg] Erich Ball DO Work Phone: [facility] 10-14-2024 12:00-0500 Diastolic blood pressure 75 mm[Hg] Erich Ball DO Work Phone: [facility] 10-14-2024 12:00-0500 Heart rate 85 /min Erich Ball DO Work Phone: [facility] 10-14-2024 12:00-0500 Respiratory rate 20 /min Erich Ball DO Work Phone: [facility] 10-14-2024 12:00-0500 SaO2% (BldA) [Mass fraction] 97 % Erich Ball DO Work Phone: [facility] 10-14-2024 12:00-0500 Systolic blood pressure 148 mm[Hg] Erich Ball DO Work Phone: [facility] 10-14-2024 08:00-0500 Body temperature 97.8 [degF] Erich Ball DO Work Phone: [facility] 10-14-2024 04:27-0500 Body weight 109.6 kg Erich Ball DO Work Phone: [facility] 10-13-2024 16:00-0500 Body height 182.88 cm Erich Ball DO Work Phone: [facility] 10-05-2024 14:35-0500 Body mass index (BMI) [Ratio] 33.19 kg/m2 Jailyn Sepulveda [employer] COMM[employer]ION[employer] Work Phone: [facility] 10-05-2024 14:35-0500 Body weight 107.96 kg Jailyn Sepulveda [employer] COMM[employer]ION[employer] Work Phone: [facility] 10-05-2024 14:35-0500 Diastolic blood pressure 74 mm[Hg] Jailyn Sepulveda [employer] Work Phone: [facility] 10-05-2024 14:35-0500 Heart rate 87 /min Jailyn Sepulveda [employer] Work Phone: [facility] 10-05-2024 14:35-0500 Systolic blood pressure 131 mm[Hg] Jailyn Sepulveda [employer] COMM[employer]ION[employer] Work Phone: [facility] 07-15-2024 14:09-0500 Body height 180.34 cm [facility] 07-15-2024 14:09-0500 Body mass index (BMI) [Ratio] 33.5 kg/m2 [facility] 07-15-2024 14:09-0500 Body weight 109.03 kg [facility] 07-15-2024 14:09-0500 Diastolic blood pressure 81 mm[Hg] [facility] 07-15-2024 14:09-0500 Heart rate 76 /min [facility] 07-15-2024 14:09-0500 Respiratory rate 12 /min [facility] 07-15-2024 14:09-0500 Systolic blood pressure 145 mm[Hg] [facility] 07-06-2024 13:05-0500 Body mass index (BMI) [Ratio] 33.05 kg/m2 Jailynrocco Sepulveda [employer] COMMISSION[employer] Work Phone: [facility] 07-06-2024 13:05-0500 Body weight 107.5 kg Jailyn Sepulveda [employer] COMM[employer]ION[employer] Work Phone: [facility] 07-06-2024 13:05-0500 Diastolic blood pressure 65 mm[Hg] Jailynrocco Sepulveda [employer] COMM[employer]IONER Work Phone: [facility] 07-06-2024 13:05-0500 Heart rate 75 /min Jailynrocco Sepulveda [employer] COMM[employer]ION[employer] Work Phone: [facility] 07-06-2024 13:05-0500 Systolic blood pressure 137 mm[Hg] Jailynrocco Sepulveda [employer] COMM[employer]IONER Work Phone: [facility] 04-07-2024 10:11-0400 Body height 180.34 cm [facility] 04-07-2024 10:11-0400 Body mass index (BMI) [Ratio] 32.5 kg/m2 [facility] 04-07-2024 10:11-0400 Body weight 105.68 kg [facility] 04-07-2024 10:11-0400 Diastolic blood pressure 67 mm[Hg] [facility] 04-07-2024 10:11-0400 Heart rate 89 /min [facility] 04-07-2024 10:11-0400 Respiratory rate 12 /min [facility] 04-07-2024 10:11-0400 Systolic blood pressure 113 mm[Hg] [facility] 02-05-2024 11:15-0400 Body height 180.34 cm [facility] 02-05-2024 11:15-0400 Body mass index (BMI) [Ratio] 32.8 kg/m2 [facility] 02-05-2024 11:15-0400 Body weight 106.65 kg [facility] 02-05-2024 11:15-0400 Diastolic blood pressure 75 mm[Hg] [facility] 02-05-2024 11:15-0400 Heart rate 84 /min [facility] 02-05-2024 11:15-0400 Respiratory rate 12 /min [facility] 02-05-2024 11:15-0400 Systolic blood pressure 135 mm[Hg] [facility] 11-06-2023 10:39-0500 Body height 180.34 cm [facility] 11-06-2023 10:39-0500 Body mass index (BMI) [Ratio] 32.8 kg/m2 [facility] 11-06-2023 10:39-0500 Body weight 106.82 kg [facility] 11-06-2023 10:39-0500 Diastolic blood pressure 68 mm[Hg] [facility] 11-06-2023 10:39-0500 Heart rate 89 /min [facility] 11-06-2023 10:39-0500 Respiratory rate 20 /min [facility] 11-06-2023 10:39-0500 Systolic blood pressure 122 mm[Hg] [facility] 08-07-2023 10:30-0500 Body height 180.34 cm Erich Ball Other [facility] [employer] Other 08-07-2023 10:30-0500 Body mass index (BMI) [Ratio] 34.42 kg/m2 Erich Ball Other [employer] [facility] [employer] Other 08-07-2023 10:30-0500 Body weight 111.95 kg Erich Ball Other [employer] [facility] [employer] Other 08-07-2023 10:30-0500 Diastolic blood pressure 74 mm[Hg] Erich Ball Other [employer] [facility] [employer] Other 08-07-2023 10:30-0500 Respiratory rate 12 /min Erich Ball Other [employer] Other 08-07-2023 10:30-0500 Systolic blood pressure 136 mm[Hg] Erich Ball Other [employer] Other 05-08-2023 11:00-0400 Body height 180.34 cm Erich Ball Other [employer] Other 05-08-2023 11:00-0400 Body mass index (BMI) [Ratio] 34.84 kg/m2 Erich Ball Other [employer] Other 05-08-2023 11:00-0400 Body weight 113.31 kg Erich Ball Other [employer] Other 05-08-2023 11:00-0400 Diastolic blood pressure 79 mm[Hg] Erich Ball Other [employer] Other 05-08-2023 11:00-0400 Respiratory rate 12 /min Erich Ball Other [employer] Other 05-08-2023 11:00-0400 Systolic blood pressure 161 mm[Hg] Erich Ball Other [employer] Other 03-11-2023 12:48-0400 Body height 182.88 cm Erich E Ball Work Phone: [employer] DO Work Phone: 03-11-2023 12:48-0400 Body mass index (BMI) [Ratio] 33.92 kg/m2 Erich E Ball Work Phone: [employer] DO Work Phone: 03-11-2023 12:48-0400 Body surface area Derived from formula 2.34 m2 Erich E Ball [facility] [employer] [facility] Work Phone: 03-11-2023 12:48-0400 Body weight 113.46 kg Erich E Ball Work Phone: [facility] [employer] DO Work Phone: 03-11-2023 12:48-0400 Diastolic blood pressure 72 mm[Hg] Erich E Ball Work Phone: [facility] [employer] DO Work Phone: 03-11-2023 12:48-0400 Heart rate 78 /min Erich E Ball Work Phone: [facility] [employer] DO Work Phone: 03-11-2023 12:48-0400 Systolic blood pressure 128 mm[Hg] Erich E Ball Work Phone: [facility] [employer] DO Work Phone: 02-05-2023 14:30-0400 Body height 180.34 cm Erich Ball Other [employer] Other 02-05-2023 14:30-0400 Body mass index (BMI) [Ratio] 35.42 kg/m2 Erich Ball Other [employer] Other 02-05-2023 14:30-0400 Body weight 115.21 kg Erich Ball Other [employer] Other 02-05-2023 14:30-0400 Diastolic blood pressure 74 mm[Hg] Erich Ball Other [employer] Other 02-05-2023 14:30-0400 Respiratory rate 12 /min Erich Ball Other [employer] Other 02-05-2023 14:30-0400 Systolic blood pressure 117 mm[Hg] Erich Ball Other [employer] Other 12-17-2022 14:49-0400 Body height 182.88 cm Erich E Ball Work Phone: [facility] 250 DO Work Phone: 12-17-2022 14:49-0400 Body mass index (BMI) [Ratio] 34.31 kg/m2 Erich E Ball Work Phone: [facility] 250 DO Work Phone: 12-17-2022 14:49-0400 Body surface area Derived from formula 2.35 m2 Erich E Ball Work Phone: [facility] 250 DO Work Phone: 12-17-2022 14:49-0400 Body weight 114.76 kg Erich E Ball Work Phone: [facility] 250 DO Work Phone: 12-17-2022 14:49-0400 Diastolic blood pressure 70 mm[Hg] Erich E Ball Work Phone: [facility] 250 DO Work Phone: 12-17-2022 14:49-0400 Heart rate 76 /min Erich E Ball Work Phone: [facility] 250 DO Work Phone: 12-17-2022 14:49-0400 Systolic blood pressure 128 mm[Hg] Erich E Ball Work Phone: [facility] 250 DO Work Phone: 12-11-2022 14:00-0400 63 1 Erich E Ball Work Phone: [facility] [address] [place] Work Phone: Comment on above: [id number] 11-21-2022 12:00-0400 Body height 180.34 cm Erich Ball Other [facility] [employer] Other 11-21-2022 12:00-0400 Body mass index (BMI) [Ratio] 35.37 kg/m2 Erich Ball Other [employer] Other 11-21-2022 12:00-0400 Body weight 115.03 kg Erich Ball Other [employer] Other 11-21-2022 12:00-0400 Diastolic blood pressure 73 mm[Hg] Erich Ball Other [facility] [employer] Other 11-21-2022 12:00-0400 Respiratory rate 16 /min Erich Ball Other [facility] [employer] Other 11-21-2022 12:00-0400 Systolic blood pressure 144 mm[Hg] Erich Ball Other [employer] Other 11-12-2022 10:48-0400 Diastolic blood pressure 80 mm[Hg] Erich E Ball [facility] [employer] 250 DO Work Phone: 11-12-2022 10:48-0400 Systolic blood pressure 142 mm[Hg] Erich E Ball Work Phone: [facility] [employer] DO Work Phone: 11-12-2022 10:27-0400 Diastolic blood pressure 86 mm[Hg] Erich E Ball Work Phone: [facility] [employer] 250 DO Work Phone: 11-12-2022 10:27-0400 Systolic blood pressure 148 mm[Hg] Erich E Ball Work Phone: [facility] [employer] DO Work Phone: 11-12-2022 10:22-0400 Body height 182.88 cm Erich E Ball Work Phone: [facility] [employer] DO Work Phone: 11-12-2022 10:22-0400 Body mass index (BMI) [Ratio] 34.31 kg/m2 Erich E Ball Work Phone: [facility] [employer] DO Work Phone: 11-12-2022 10:22-0400 Body surface area Derived from formula 2.35 m2 Erich E Ball Work Phone: [facility] [employer] 250 DO Work Phone: 11-12-2022 10:22-0400 Body weight 114.76 kg Erich E Ball Work Phone: [facility] [employer] 250 DO Work Phone: 11-12-2022 10:22-0400 Diastolic blood pressure 86 mm[Hg] Erich E Ball Work Phone: [facility] [employer] DO Work Phone: 11-12-2022 10:22-0400 Heart rate 85 /min Erich E Ball Work Phone: [facility] [employer] DO Work Phone: 11-12-2022 10:22-0400 Systolic blood pressure 150 mm[Hg] Erich E Ball Work Phone: [facility] [employer] DO Work Phone: 10-26-2022 11:30-0500 Body height 180.34 cm Erich Ball Other [facility] [employer] Other 10-26-2022 11:30-0500 Body mass index (BMI) [Ratio] 34.22 kg/m2 Erich Ball Other [employer] Other 10-26-2022 11:30-0500 Body weight 111.31 kg Erich Ball Other [employer] Other 02-24-2023 11:30-0500 Diastolic blood pressure 68 mm[Hg] Erich Ball Other [facility] [employer] Other 10-26-2022 11:30-0500 Respiratory rate 16 /min Erich Ball Other [facility] [employer] Other 10-26-2022 11:30-0500 SaO2% (BldA) [Mass fraction] 97 % Erich Ball Other [facility] [employer] Other 10-26-2022 11:30-0500 Systolic blood pressure 122 mm[Hg] Erich Ball Other [facility] [employer] Other 09-09-2022 08:15-0500 SaO2% (BldA) [Mass fraction] 93 % Pascual PRINCE [facility] 09-08-2022 11:46-0500 Body temperature 97.8 [degF] DO Erich Ball Work Phone: [facility] 09-08-2022 11:46-0500 Diastolic blood pressure 73 mm[Hg] DO Erich Ball Work Phone: [facility] 09-08-2022 11:46-0500 Heart rate 82 /min DO Erich Ball Work Phone: [facility] 09-08-2022 11:46-0500 Inhaled oxygen flow rate 2 L/min DO Erich Ball Work Phone: [facility] 09-08-2022 11:46-0500 Respiratory rate 17 /min DO Erich Ball Work Phone: [facility] 09-08-2022 11:46-0500 SaO2% (BldA) [Mass fraction] 92 % DO Erich Ball Work Phone: [facility] 09-08-2022 11:46-0500 Systolic blood pressure 121 mm[Hg] DO Erich Ball Work Phone: [facility] 09-08-2022 06:00-0500 Body weight 110.3 kg DO Erich Ball Work Phone: [facility] 09-05-2022 15:05-0500 Body height 180.34 cm DO Erich Ball Work Phone: [facility] Encounters Encounter Date Encounter Type Care Provider Facility Start: 08-18-2025 ambulatory Carlos A BAEZ Facility :[facility] Start: 04-12-2025 End: 04-12-2025 ambulatory Erich Ball DO Work Phone: [facility] Work Phone: Start: 04-12-2025 End: 04-12-2025 Patient encounter procedure Gracia Brady 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 Start: 03-04-2025 End: 03-04-2025 ambulatory Erich Ball DO Work Phone: [facility] Work Phone: Start: 03-04-2025 End: 03-04-2025 Patient encounter procedure Staci Burnette [facility] Work Phone: Start: 01-21-2025 End: 01-21-2025 ambulatory Erich Ball DO Work Phone: [facility] Work Phone: Start: 01-21-2025 End: 01-21-2025 Patient encounter procedure Erich Ball DO Work Phone: [facility] Work Phone: Start: 12-17-2024 Non-patient / Non-visit Benjam in Ball DO Work Phone: [facility] Work Phone: Start: 12-14-2024 End: 12-14-2024 ambulatory Erich Ball DO Work Phone: [facility] Work Phone: Start: 12-14-2024 End: 12-14-2024 Patient encounter procedure Erich Ball DO Work Phone: [facility] Work Phone: Start: 12-11-2024 End: 12-11-2024 ambulatory Sobeida X Orzech Facility:[facility] Start: 12-10-2024 End: 12-10-2024 ambulatory Erich Ball DO Work Phone: [facility] Work Phone: Start: 12-10-2024 End: 12-10-2024 Patient encounter procedure Erich Ball DO Work Phone: [facility] Work Phone: Start: 11-05-2024 End: 11-05-2024 Patient encounter procedure Erich Ball DO Work Phone: [facility] Work Phone: Start: 11-05-2024 End: 11-05-2024 ambulatory Erich Ball DO Work Phone: [facility] Work Phone: Start: 11-05-2024 Registered Recurring Erich Ball DO Work Phone: [facility] Work Phone: Start: 10-22-2024 End: 10-22-2024 Admission to same day surgery center Erich Ball DO Work Phone: [facility] [place] Work Phone: Start: 10-22-2024 End: 10-22-2024 ambulatory Erich Ball DO Work Phone: [facility] Work Phone: Start: 10-21-2024 End: 10-21-2024 ambulatory Erich Ball DO Work Phone: [facility] Work Phone: Start: 10-21-2024 End: 10-21-2024 Patient encounter procedure Erich Ball DO Work Phone: [facility] Work Phone: Start: 10-15-2024 Non-patient / Non-visit Benjam in Ball DO Work Phone: [facility] Work Phone: Start: 10-11-2024 ambulatory [facility]UROLOGY INPATIENT [facility] Start: 10-10-2024 Non-patient / Non-visit Benjam in Ball DO Work Phone: [facility] Work Phone: Start: 10-09-2024 Non-patient / Non-visit Benjam in Ball DO Work Phone: [facility] Work Phone: Start: 10-09-2024 Non-patient / Non-visit Benjam in Ball DO Work Phone: [facility] Work Phone: Start: 10-09-2024 End: 10-14-2024 Evaluation and management of inpatient Erich Ball DO Work Phone: [facility] Work Phone: Start: 10-08-2024 Non-patient / Non-visit Benjam in Ball DO Work Phone: [facility] Work Phone: Start: 10-08-2024 End: 11-03-2024 Emergency department patient visit TELENEUROLOGY INPATIENT [facility] Start: 10-08-2024 Non-patient / Non-visit Benjam in Ball DO Work Phone: [facility] Work Phone: Start: 10-06-2024 Non-patient / Non-visit Benjam in Javon DO Work Phone: [facility] Work Phone: Start: 10-05-2024 End: 10-05-2024 Patient encounter procedure [facility] Work Phone: Start: 10-05-2024 End: 10-05-2024 Office outpatient visit 15 minutes Jailyn Sepulveda [employer]ION[employer] Work Phone: [facility] Comment on above: Imbalance (Primary D x); Dizziness; Generalized weakness Start: 10-05-2024 End: 10-05-2024 ambulatory [facility] Work Phone: Start: 10-05-2024 End: 10-05-2024 Bamboo flowsheet Jailyn Sepulveda [employer] COMM[employer]ION[employer] Work Phone: [facility] Start: 10-05-2024 End: 10-05-2024 Bamboo flowsheet Jailyn Sepulveda [employer] COMMISSIONER Work Phone: [facility] Start: 09-01-2024 End: 09-01-2024 Patient encounter procedure [facility] Work Phone: Start: 07-16-2024 Non-patient / Non-visit [facility] Work Phone: Start: 07-15-2024 End: 07-15-2024 ambulatory [facility] Work Phone: Start: 07-15-2024 End: 07-15-2024 Patient encounter procedure [facility] Work Phone: Start: 07-13-2024 Patient encounter procedure [facility] Start: 07-06-2024 End: 07-06-2024 Bamboo flowsheet Jailyn Sepulveda [employer] COMMISSIONER Work Phone: [facility] [address] Start: 07-06-2024 End: 07-06-2024 Bamboo flowsheet Jailyn Jey [employer] COMMISSIONER Work Phone: [facility] [address] Start: 07-06-2024 End: 07-06-2024 Office outpatient visit 15 minutes Jailyn Jey [employer] COMMISSIONER Work Phone: [facility] Comment on above: Imbalance (Primary D x); Dizziness; Generalized weakness; Daytime hypersomnolence Start: 07-06-2024 End: 07-06-2024 ambulatory JAILYN SEPULVEDA Not Available Start: 07-01-2024 Non-patient / Non-visit [facility] Work Phone: Start: 06-30-2024 End: 06-30-2024 ambulatory [facility] Work Phone: Start: 06-30-2024 End: 06-30-2024 Patient encounter procedure [facility] Work Phone: Start: 05-26-2024 End: 05-26-2024 [facility] Work Phone: Start: 05-26-2024 End: 05-26-2024 Patient encounter procedure [facility] Work Phone: Start: 04-28-2024 Non-patient / Non-visit [facility] Work Phone: Start: 04-15-2024 End: 04-15-2024 ambulatory Carlos A BAEZ Facility:[facility] Start: 04-15-2024 End: 04-15-2024 Patient encounter procedure Carlos A BAEZ [facility] Start: 04-07-2024 End: 04-07-2024 ambulatory [facility] Work Phone: Start: 04-07-2024 End: 04-07-2024 Patient encounter procedure [facility] Work Phone: Start: 02-05-2024 End: 02-05-2024 ambulatory [facility] Work Phone: Start: 02-05-2024 End: 02-05-2024 Patient encounter procedure [facility] Work Phone: Start: 01-30-2024 End: 01-30-2024 ambulatory JAILYN SEPULVEDA Not Available Start: 01-29-2024 End: 01-29-2024 Patient encounter procedure Carlos A Alfonso BAEZ [facility] Start: 01-16-2024 Non-patient / Non-visit [facility] Work Phone: Start: 01-13-2024 Non-patient / Non-visit [facility] Work Phone: Start: 12-19-2023 End: 12-19-2023 ambulatory [facility] Work Phone: Start: 12-19-2023 End: 12-19-2023 Patient encounter procedure [facility] Work Phone: Start: 11-06-2023 End: 11-06-2023 Patient encounter procedure [facility] Work Phone: Start: 10-03-2023 End: 10-03-2023 ambulatory Erich Javon Other [employer] Other Start: 10-03-2023 Telephone encounter Erich Alejandro [facility] Start: 10-03-2023 Patient encounter procedure [facility]- Start: 10-02-2023 End: 10-02-2023 ambulatory Erich Ball Other [employer] Other Start: 10-02-2023 Telephone encounter Erich Javon [facility] Start: 2023 End: 2023 ambulatory Erich Javon Other [employer] Other Start: 2023 Telephone encounter Erich Alejandro [facility] Start: 08-23-2023 End: 08-23-2023 ambulatory Erich Ball Other [facility] Other Start: 08-23-2023 Telephone encounter Erich Ball [facility] Start: 08-07-2023 End: 08-07-2023 ambulatory Erich Ball Other [facility] Other Start: 08-07-2023 Office outpatient vi sit 25 minutes Erich Ball [facility] Start: 07-23-2023 End: 07-23-2023 ambulatory Erich Ball Other [facility] Other Start: 07-23-2023 Nursing evaluation o f patient and report Erich Ball [facility] Start: 06-18-2023 End: 06-18-2023 ambulatory Erich Ball Other [facility] Other Start: 06-18-2023 Nursing evaluation o f patient and report Erich Alejandro [facility] Start: 06-05-2023 End: 06-05-2023 ambulatory Erich Ball Other [facility] Other Start: 06-05-2023 Telephone encounter Erich Ball [facility] Start: 06-04-2023 End: 06-04-2023 ambulatory Erich Ball Other [facility] Other Start: 06-04-2023 Telephone encounter Erich Ball [facility] Start: 05-08-2023 End: 05-08-2023 ambulatory Erich Ball Other [facility] Other Start: 05-08-2023 Patient encounter procedure Erich Ball [facility] Start: 04-22-2023 End: 04-22-2023 ambulatory Erich Ball Other [facility] Other Start: 04-22-2023 Telephone encounter Erich JAVIER [facility] Start: 03-20-2023 End: 03-20-2023 ambulatory Erich Alejandro Other [facility] Other Start: 03-20-2023 Nursing evaluation o f patient and report Erich Alejandro [facility] Start: 03-11-2023 Office outpatient vi sit 15 minutes Erich Valentine Ball Work Phone: [facility] DO Work Phone: Start: 03-11-2023 ambulatory MD CATHLEEN LOPEZ Facilit y: Start: 02-14-2023 End: 02-14-2023 ambulatory Erich Alejandro Other [facility] Other Start: 02-14-2023 Telephone encounter Erich JAVIER [facility] Start: 02-13-2023 End: 02-13-2023 ambulatory Erich Alejandro Other [employer] Other Start: 02-13-2023 Telephone encounter Erich JAVIER [facility] Start: 02-11-2023 End: 02-11-2023 ambulatory Staci Burnette Other [facility] Other Start: 02-11-2023 Nursing evaluation o f patient and report Staci Burnette [facility] Start: 02-05-2023 End: 02-05-2023 ambulatory Erich Alejandro Other [facility] Other Start: 02-05-2023 Office outpatient vi sit 25 minutes Erich Alejandro [facility] Start: 01-10-2023 End: 01-10-2023 ambulatory Erich Alejandro Other [facility] Other Start: 01-10-2023 Nursing evaluation o f patient and report Erich Alejandro [facility] Start: 01-10-2023 Telephone encounter Erich JAVIER [facility] Start: 12-17-2022 Office outpatient vi sit 25 minutes Erich E Ball Work Phone: [facility] DO Work Phone: Start: 12-17-2022 ambulatory MD CATHLEEN Rivera y: Start: 12-12-[address] Cathleen Joseph [id number] Start: 12-11-2022 Patient encounter procedure Erich E Ball Work Phone: [facility] [place] Work Phone: Start: 12-11-[address] Cathleen Joseph [id number] Start: 12-03-2022 End: 12-03-2022 ambulatory Erich Alejandro Other [facility] Other Start: 12-03-2022 Telephone encounter Erich Javon [facility] Start: 11-21-2022 End: 11-21-2022 ambulatory Erich Ball Other [facility] Other Start: 11-21-2022 Office outpatient vi sit 25 minutes Erich Ball [facility] Start: 11-12-2022 Office consultation new/estab patient 60 min Erich E Ball Work Phone: [facility] DO Work Phone: Start: 11-12-2022 Patient encounter procedure Erich E Ball Work Phone: [facility] DO Work Phone: Start: 11-12-2022 ambulatory MD CATHLEEN Rivera y: Start: 10-26-2022 End: 10-26-2022 ambulatory Erich Ball Other [facility] Other Start: 10-26-2022 Office outpatient vi sit 25 minutes Erich Ball [facility] Start: 10-07-2022 End: 10-07-2022 ambulatory Erich Ball Other [facility] Other Start: 10-07-2022 Tele[facility] encounter [facility] Start: 10-03-2022 End: 10-03-2022 ambulatory Erich Javon Other [facility] Other Start: 10-03-2022 Telephone encounter [facility] Start: 09-25-2022 End: 09-25-2022 ambulatory Erich Javon Other [place] [employer] Other Start: 09-25-2022 Telephone encounter [facility] Start: 09-19-2022 End: 09-19-2022 [facility] Start: 09-10-2022 End: 09-10-2022 ambulatory Erich Alejandro Other [place] [employer] Other Start: 09-10-2022 Telephone encounter [facility] Start: 09-10-2022 End: 09-10-2022 [facility] Start: 09-08-2022 End: 09-19-2022 Evaluation and management of inpatient [facility] Start: 09-05-2022 End: 09-05-2022 ambulatory Erich Alejandro Other [place] [employer] Other Start: 09-05-2022 Telephone encounter Erich Alejandro [facility] [employer] Start: 09-05-[address] Erich Alejandro Facility:[id number] Start: 09-04-2022 End: 09-08-2022 Evaluation and management of inpatient DO Erich Alejandro Work Phone: [facility] [employer] Work Phone: Start: 09-04-2022 End: 09-04-[address] ERICH ALEJANDRO Facility:H1 Start: 04-24-2022 End: 04-25-[address] ERICH ALEJANDRO Facility:[facility]1 Start: 04-23-2022 Adult health examination Jorge L Alejandro Other [facility] [employer] Other Start: 11-29-2021 End: 11-30-[address] [...] (body structure) [facility] Start: 01-12-2021 Cystourethroscopy [facility] dilation of urethral stricture [facility] Start: 09-02-2014 Transurethral prostatectomy [facility] Cataract surgery Erich Alejandro Work Phone: Depression screening Ashley Alejandro Other Operation on colon Erich Alejandro Work Phone: Surgical repair of u pper extremity Erich Alejandro Work Phone: Tonsillectomy [facility] Tonsillectomy Erich Grijalva Reji moulton Work Phone: Total colectomy [facility] ADAM Total colonoscopy Erich Grijalva Javon Work Phone: Plan of Treatment Date Care Activity Detail Author Start: 04-12-2025 End: 04-12-2025 Patient encounter procedure 04/12/2025 1:00 PM EDT Office Visit [facility] [address] [place] [address] Gracia Brady NP [address] [place] [address] [facility] Start: 10-22-2024 End: 10-22-2024 [facility] Start: 10-22-2024 Bone marrow sampling [facility] Start: 10-16-2024 Bone marrow sampling [facility] Start: 10-14-2024 [facility] Start: 10-11-2024 [facility] Start: 10-11-2024 Referral to report developer [facility] Start: 10-10-2024 [facility] Start: 10-09-2024 Referral to faith healer [facility] Start: 10-09-2024 Hospital admission [facility] Start: 10-05-2024 End: 10-05-2024 Patient encounter procedure [facility] [address] Comment on above: Arrived Start: 07-06-2024 End: 07-06-2024 Patient encounter procedure 07/06/2024 1:00 PM EST Office Visit [facility] [address] [place] [address] Jailyn Sepulveda NP [address] [place] [address] [address] [facility] [place] [address] Comment on above: Arrived Start: 05-03-2024 Influenza vaccination Influenz a Vaccine (#1) [facility] Start: 03-11-2023 FUV, Provider: Cathleen Lopez, Status: Pen, Time: 12:45 PM FUV, Provider: Cathleen Lopez, Status: Pen, Time: 12:45 PM [facility] DO Work Phone: Start: 12-17-2022 FUV, Provider: Cathleen Lopez, Status: Pen, Time: 2:45 PM FUV, Provider: Cathleen Lopez, Status: Pen, Time: 2:45 PM [facility] DO Work Phone: Start: 12-12-2022 REST ONLY, Provider: DON HHVI NUCLEAR 01,[id number], Status: Pen, Time: 12:30 PM REST ONLY, Provider: DON [facility] NUCLEAR 01,[id number], Status: Pen, Time: 12:30 PM [facility] DO Work Phone: Start: 12-11-2022 STRESSNUC2, Provider : DON [facility] NUCLEAR 01,[id number], Status: Pen, Time: 2:00 PM STRESSNUC2, Provider: DON [facility] NUCLEAR 01,[id number], Status: Pen, Time: 2:00 PM [facility] DO Work Phone: Start: 09-08-2022 [facility] Start: 09-04-2022 Hospital admission [facility] Comprehensive metabo lic 1999 panel - Serum or Plasma [facility] Comprehensive metabo lic 1999 panel - Serum or Plasma [facility] Comprehensive metabo lic 1999 panel - Serum or Plasma [facility] Comprehensive metabo lic 1999 panel - Serum or Plasma [facility] Karyotype [Identifie r] in Unspecified specimen Nominal [facility] Microalbumin [Mass/v olume] in Urine [facility] Patient Education [facility] Work Phone: Patient referral [facility] Work Phone: [facility] Immunizations Immunization Date Immunization Notes Care Provider Fa cili 05-29-2024 influenza virus vaccine, unspecified formulation Jailyn Sepulveda [employer] Work Phone: [facility] 06-10-2022 Fluzone High-Dose Quadrivalent 0.7 ML Intramuscular Suspension Prefilled Syringe Erich Alejandro Work Phone: [facility] 250 DO Work Phone: 06-10-2022 influenza virus vaccine, unspecified formulation [facility] 01-23-2022 Comirnaty 30 MCG/0.3 ML Intramuscular Suspension Erich Valentine Alejandro Work Phone: [facility] 250 DO Work Phone: 01-23-2022 SARS-CoV-2 mRNA (xwfxmfjlhpt-tikb-fgheo se) vaccine [facility] 07-05-2021 COVID-19, mRNA, LNP- S, PF, 100 mcg or 50 mcg dose [facility] 06-23-2021 influenza virus vaccine, split virus (incl. purified surface antigen) Erich Alejandro Other [employer] Other 06-23-2021 influenza virus vaccine, unspecified formulation [facility] 04-27-2021 tetanus toxoid, redu angela diphtheria toxoid, and acellular pertussis vaccine, adsorbed [facility] Comment on above: Early/Late Reason: E mikki/Late Reason: Other : . 10-12-2020 SARS-CoV-2 (COVID-19 ) mRNA-1273 vaccine [facility] [place] 09-14-2020 SARS-CoV-2 (COVID-19 ) mRNA-1273 vaccine [facility] 06-02-2020 influenza virus vaccine, unspecified formulation [facility] 09-19-2019 zoster vaccine, live Benjami catrachita Alejandro Other [facility] 05-30-2019 influenza virus vaccine, split virus (incl. purified surface antigen) Erich Alejandro Other [facility] [employer] Other 05-30-2019 influenza virus vaccine, unspecified formulation [facility] 05-30-2019 zoster vaccine recombinant [facility] 06-11-2018 influenza virus vaccine, split virus (incl. purified surface antigen) Erich Alejandro Other [facility] Other 06-11-2018 influenza virus vaccine, unspecified formulation [facility] 06-01-2017 influenza virus vaccine, split virus (incl. purified surface antigen) Erich Alejandro Other [employer] Other 06-01-2017 influenza virus vaccine, unspecified formulation [facility] 02-25-2016 pneumococcal polysaccharide vaccine, 23 valent Erich Alejandro Other [facility] 12-18-2014 pneumococcal conjuga te vaccine, 13 valent Ercih Alejandro Other [facility] 07-11-2005 influenza virus vaccine, whole virus Erich Alejandro Work Phone: [facility] 250 DO Work Phone: 07-11-2005 pneumococcal polysaccharide vaccine, 23 valent [facility] Payers Date Payer Category Payer Self-pay 2024 Private Health Insurance [id number] 2011 Blue Cross Blue Shield BCBS [id number] 2003 Medicare [id number] 1959 Medicare [id number] 1959 Unknown [id number] 1938 Unknown [id number] 2.16.840.1.920800.3.57 9.2.593 1938 Unknown [id number] 2.16.840.1.652328.3.57 9.2.593 1938 Unknown [id number] 2.16.840.1.454290.3.57 9.2.593 1938 Unknown [id number] 2.16.840.1.818177.3.57 9.2.593 1938 Unknown [id number] 2.16.840.1.334596.3.57 9.2.1068 1938 Unknown [id number] 2.16.840.1.215173.3.57 9.2.1068 1938 Unknown [id number] 2.16.840.1.958406.3.57 9.2.1068 1938 Unknown [id number] 2.16.840.1.441286.3.57 9.2.356 1938 Unknown [id number] 2.16.840.1.456389.3.57 9.2.356 1938 Unknown [id number] 2.16.840.1.728263.3.57 9.2.356 1938 Unknown [id number] 2.16.840.1.849806.3.57 9.2.356 1938 Unknown [id number] 2.16.840.1.260866.3.57 9.2.1259 1938 Unknown [id number] 2.16.840.1.795688.3.57 9.2.1259 1938 Unknown [id number] 2.16.840.1.133360.3.57 9.2.1259 1938 Unknown [id number] 2.16.840.1.964352.3.57 9.2.1286 1938 Unknown [id number] 2.16.840.1.950076.3.57 9.2.1286 1938 Unknown [id number] 2.16.840.1.233288.3.57 9.2.727 1938 Unknown [id number] 2.16.840.1.736740.3.57 9.2.727 1938 Unknown [id number] 2.16840.1.518334.3.57 9.2.727 1938 Unknown [id number] 2.16.840.1.588581.3.57 9.2.727 Unknown Unknown [id number] 2.16.840.1.331391.3.57 9.2.531 Unknown [id number] 2.16.840.1.614574.3.57 9.2.531 Unknown [id number] 2.16.840.1.309129.3.57 9.2.531 Social History Date Type Detail Facility Start: 08-07-2021 End: 04-07-2025 Tobacco smoking status Light tobacco smoker (finding) [facility] Start: 12-31-2023 Sex Assigned At Male [facility] Start: 09-04-2022 End: 11-05-2024 Tobacco smoking status NHIS Ex-smoker (finding) [facility] Start: 1940 Sex Assigned At Male F [facility] Start: 12-31-2023 No alcohol use No alcohol use [facility] DO Work Phone: Comment on above: quit smoking in 2019 ; Start: 12-31-2023 Tobacco smoking stat us DCIS Never smoked tobacco [facility] Start: 01-30-2024 End: 10-05-2024 Alcoholic beverage intake Lifetime non-drinker (finding) [facility] Start: 1940 Sex assigned at Not on file N [facility] Start: 01-14-2018 End: 07-15-2024 Sex Male (finding) [facility] Start: 10-11-2024 End: 10-22-2024 Tobacco smoking status NHIS Current some day smoker [facility] Start: 10-12-2024 SDOH Follow up SDOH Follow up [facility] Work Phone: Tobacco smoking status Never [facility] Sexual Orientation [facility] Medical Equipment Procedure Code Equipment Code Equipment Origin al Text Equipment Identifier Dates HUMERUS FRACTURE ORIF Alissa Edward CRISTINA 05/01/21 Unknown Arm L FDA Start: 05-01-2021 HUMERUS FRACTURE ORIF Alissa CRISTINARicas Jesusita 05/01/21 Unknown Arm L FDA Start: 05-01-2021 HUMERUS FRACTURE ORIF Alissa CRISTINAEdward 05/01/21 Unknown Arm L FDA Start: 05-01-2021 HUMERUS FRACTURE ORIF Alissa Edward CRISTINA 05/01/21 Unknown Arm L FDA Start: 05-01-2021 HUMERUS FRACTURE ORIF Alissa Edward CRISTINA 05/01/21 Unknown Arm L FDA Start: 05-01-2021 HUMERUS FRACTURE ORIF Alissa CRISTINA Edward K. 05/01/21 Unknown Arm L FDA Start: 05-01-2021 HUMERUS FRACTURE ORIF Alissa CRISTIAN Edward K. 05/01/21 Unknown Arm L FDA [...] L FDA Start: 05-01-2021 HUMERUS FRACTURE ORIF Alisas CRISTINA Edward K. 05/01/21 Unknown Arm L [...] Start: 02-06-2024 End: 02-06-2024 HUMERUS FRACTURE ORIF Alissa CRISTINA Edward K. [...] FDA Start: 05-01-2021 HUMERUS FRACTURE ORIF Maxwell DO Edward K. 05/01/21 Unknown Arm L FDA Start: 05-01-2021 HUMERUS FRACTURE ORIF Maxwell DO, Edward K. 05/01/21 Unknown Arm L FDA Start: 05-01-2021 HUMERUS FRACTURE ORIF Maxwell DO Edward K. 05/01/21 Unknown Arm L [...] Sugar Diagnostic (Freestyle Lite Strips) strip Start: 04-11-2025 Lancets (Freesty le Lancets) 28 gauge misc Start: 01-13-2024 Pen Needle, Diab etic (Bd Ultra-Fine Mini Pen Needle) 31 gauge x 3/16 needle Start: 02-06-2024 Blood Sugar Diagnostic (Freestyle Lite Strips) strip Start: 01-09-2024 End: 04-11-2025 Blood Sugar Diagnostic (Freestyle Lite Strips) strip Start: 11-05-2023 End: 02-05-2024 Lancets (Freesty le Lancets) 28 gauge misc Start: 01-13-2024 End: 01-13-2024 Pen Needle, Diab etic (Bd Ultra-Fine Mini Pen Needle) 31 gauge x 3/16 needle Start: 02-06-2024 End: 02-06-2024 Goals Date Patient Goal Desired Activity /State Functional Status Date Assessment Result Facility 10-14-2024 Functional status Patient at Baseline [facility] Work Phone: 10-09-2024 Functional status Disability Sta tus Patient at Baseline [facility] Work Phone: 04-15-2024 Functional Status N/A [facility] 09-08-2022 Functional status Patient at Baseline [facility] Work Phone: Mental Status Date Assessment Result Facility 10-09-2024 Cognitive function Cognitive Sta tus Patient at Baseline [facility] Work Phone: 09-08-2022 Cognitive function Cognitive Sta tus Patient at Baseline [facility] Work Phone: Clinical Notes 12-02-2019 to 04-07-2025 Note Date & Type Note Facility 04-07-2025 Hospital Discharg e instructions Patient Education 04/07/2025 10:37:44 Overactive Bladder, Adult Overactive Bladder, Adult Overactive [...] your health care provider. General instructions Take thtn-prq-bxfykoc and prescription medicines only as told by [...] provider. Document Revised: 05/08/2021 Document Reviewed: 05/08/2021 [employer] Patient Education 2023 [employer]. Follow Up Care 12/11/2024 09:41:12 With:LORRAINE DAUGHERTY, Carlos A P, URL Address: [address] [place], [place] [address] [address] [place], [place] [address]- When: Unknown [facility] 04-07-2025 Note Patient Education Obstetrics and Gynecology Overactive [...] health care provider. General instructions ??? Take aesr-wvp-sxsipih and prescription medicines only as told by [...] drink, and whe (more content not included)... [facility] 01-21-2025 Evaluation note Diagnosis Onset Date Resolution Chronic heart failure with preserved ejection fraction (HFpEF) acute January 21, 2025 10:28am Chronic venous insufficiency of lower extremity acute January 21, 2025 10:28am HTN (hypertension) acute January 212024 10:28am Nicotine dependence acute January 012024 10:28am Obesity acute January 21, 2025 10:28am YASMANI (obstructive sleep apnea) acute January 21, 2025 10:28am Pancytopenia acute January 21 10:28am Pernicious anemia acute December 10:28am Type 2 diabetes mellitus with hyperglycemia acute January 21 10:28am Polyuria noneactive January 21, 2025 10:28am Pernicious anemia acute March 3:26pm Vitamin B12 deficiency noneactive 2024 3:26pm [facility] Work Phone: 1(399) 518-200804-11-2025 NotePatient Education Obstetrics and Gynecology Overactive Bladder, [...] health care provider. General instructions ??? Take cofg-kti-ipzydzz and prescription medicines only as told by your health care provider. ??? If you were prescribed an antibiotic medicine, take it as told by your health care provider. Donot stop taking the antibiotic even if you start to feel better. ??? Use any implants or pessary as told by your health care provider. ??? If needed, wear pads to absorb urine leakage. ??? Keep a log to track how much and when you drink, and whe (more content not included)...[facility]04-10-2025 Evaluation note* Diagnosis Onset Date Resolution Status Admit Date Pernicious anemia acute December 012024 2:13pm Chronic heart failure with preserved ejection fraction (HFpEF) acute December 14, 2024 2:34pm Chronic kidney disease acute Ap ril 2024 2:34pm Dyshidrotic dermatitis acute Ap ril 2024 2:34pm Pancytopenia acute December 14, 2024 2:34pm Type 2 diabetes mellitus wit h hyperglycemia acute December 14, 2024 2:34pm Chronic heart failure with preserved ejection fraction (HFpEF) acute January 21, 2025 1 0:28am Chronic venous insufficiency of lower extremity acute January 21 10:28am HTN (hypertension) acute January 212024 10:28am Nicotine dependence acute January 012024 10:28am Obesity acute January 21, 2025 10:28am YASMANI (obstructive sleep apnea) acute January 21, 2025 10:28am Pancytopenia acute January 21 10:28am Pernicious anemia acute December 10:28am Type 2 diabetes mellitus wit h hyperglycemia acute January 21, 2025 1 0:28am Polyuria noneactive January 21, 2025 10:28am [facility] Work Phone: 1(501) 764-801003-06-2025 Evaluation note* Diagnosis Onset Date Resolution Status Admit Date Pancytopenia acute November 05 8:53am Pernicious anemia acute December 012024 2:13pm Chronic heart failure with preserved ejection fraction (HFpEF) acute December 14, 2024 2:34pm Chronic kidney disease acute Ap ril 2024 2:34pm Dyshidrotic dermatitis acute Ap ril 2024 2:34pm Pancytopenia acute December 14, 2024 2:34pm Type 2 diabetes mellitus wit h hyperglycemia acute December 14, 2024 2:34pm Chronic heart failure with preserved ejection fraction (HFpEF) acute January 21, 2025 1 0:28am Chronic venous insufficiency of lower extremity acute January 21 10:28am HTN (hypertension) acute January 212024 10:28am Nicotine dependence acute January 012024 10:28am YASMANI (obstructive sleep apnea) acute January 21, 2025 10:28am Pancytopenia acute January 21 10:28am Pernicious anemia acute December 10:28am Type 2 diabetes mellitus wit h hyperglycemia acute January 21, 2025 1 0:28am Polyuria noneactive January 21, 2025 10:28am [facility] Work Phone: 1(357) 941-351903-06-2025 [facility] [place] [address] Cancer Center Note Signed Patient: Jose L Ames MR#: [id number] : 1940 Acct:[id number] Age/Sex: 84 / M Type: REG AMB [...] negative surface antibody nonreactive core total antibodies negativeand core IgM antibodies negative hepatitis C antibodies [...] neoplasia or overt dysplasia are not identified. Normocellularbone marrow for age 25 to 30% with [...] any immunophenotypic abnormalities or MDS or leukemia lymphomaor bone marrow failure, we will follow observation. Repeat labs including CBC with differential CMP folate iron studies B12 and LDH in 6 months and seehim then. He asked me about his generalized [...] T2DM, HTN, YASMANI, AAA who presented to [facility] emergency room for altered mental status and weakness. [facility] chart review?patient arrived to [facility] via EMS for altered mental status, [...] denies alcohol or illicit druguse. At [facility], his iron studies were c/w anemia of [...] negative surface antibody nonreactive core total antibodies negativeand core IgM antibodies negative hepatitis C antibodies [...] neoplasia or overt dysplasia are not identified. Normocellularbone marrow for age 25 to 30% with [...] mg (1/2 x 20 mg) PO BID eh-qbm-jpihk-O5-zwiesih-zkokwq [id number] mcg (Centrum Silver Men) 1 tab PO [...] up with labs and imaging for review. 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 (current) use of insulin Left humeral fracture [...] 10/12/24 Lactate Dehydrogenase 199 U/L (140-271) 10/11/24 13: 5 Social Determinants of Health Screening SDOH [...] Angelo Iglesias MD DD/ 0857 Signed By: 11/05/24 0944 [facility]02-11-2025 Progress note Author West Caraballo [facility] Note Date/Time October 13, 2024 12:55pm [facility] ENTER [address] [place] [address] Hospitalist Progress Note Signed Patient: Jose L Ames MR#: [id number] 2655 : 1940 Acct:[id number] Age/Sex: 84 / M Adm Date: 5 Loc: 4P Room: 9U4878-4 Type: ADM IN Attending Dr: West Caraballo [...] own power. He was not interested in fpc placement. Patient's granddaughter did ask about acute [...] can be done as an outpatient. -Check [facility] for any evidence of positive culture [...] came back neg -Nursing team checked with [facility] yesterday blood cultures were still pending,we were [...] his concerns Documented By: West Caraballo MD 1 2800 Signed By: <Electronically signed by West Caraballo MD> 10/13/24 2523 [facility] Work Phone: 1(469) 748-595202-11-2025 [place] [phone] Hospitalist Progress Note Signed Patient: Jose L Ames MR#: [id number] 2655 : 1940 Acct:[id number] Age/Sex: 84 / M Adm Date: 5 Loc: 4 Room: [address] [place] [address] Type: ADM IN Attending Dr: West Caraballo [...] can be done as an outpatient. -Check [facility] for any evidence of positive culture [...] came back neg -Nursing team checked with [facility] yesterday blood cultures were still pending,we were [...] concerns Documented By: West Caraballo MD 5 1853 Signed By: 10/13/24 1255 [facility]02-10-2025 Progress note Author Javier Murray [facility] Note Date/Time October 12, 2024 12:56pm [facility] ENTER [address] [place] [address] Hospitalist Progress Note Signed Patient: Jose L Ames MR#: [id number] 2655 : 1940 Acct:[id number] Age/Sex: 84 / M Adm Date: 5 Loc: Room: [address] [place] [address] Type: ADM IN Attending Dr: Javier Murray [...] all came back -Nursing team checked with [place] yesterday blood cultures were still pending,we were [...] <Electronically signed by Javier Murray MD> 10/12/24 4538 [facility] Work Phone: 1(592) 674-254902-10-2025 [place] [phone] Hospitalist Progress Note Signed Patient: Jose L Ames MR#: [id number] 2655 : 1940 Acct:[id number] Age/Sex: 84 / M Adm Date: 5 Loc: 4 Room: [address] [place] [address] Type: ADM IN Attending Dr: Javier Murray [...] all came back -Nursing team checked with [facility] yesterday blood cultures were still pending,we were [...] MD 10/12/24 12 53 Signed By: 10/12/24 1256 [facility]02-10-2025 Progress note Author Loyda Carlos [facility] Note Date/Time October 11, 2024 1 0:02pm [facility] ENTER [address] [place] [address] Hospitalist Progress Note Signed with aPula Patient: Jose L Ames MR#: [id number] 2655 : 1940 Acct:[id number] Age/Sex: 84 / M Adm Date: 5 Loc: Room: [address] [place] [address] Type: ADM IN Attending Dr: Loyda Carlos [...] all came back -Nursing team checked with [place] yesterday blood cultures were still pending,we were [...] By: <Electronically signed by Loyda Carlos MD> 10/11/242199 [facility] Work Phone: 1(132) 612-315202-09-2025 [place] [address] Hospitalist Progress Note Signed with Addenda Patient: Jose L Ames MR#: [id number] 2655 : 1940 Acct:[id number] Age/Sex: 84 / M Adm Date: 5 Loc: Room: [address] [place] [address] Type: ADM IN Attending Dr: Loyda Carlos MD Copies to: ~ ADDENDUM1 Tried to call Angle the pt's daughter over the cell phone, could not get a hold of her Addendum Documented By: Loyad Carlos MD 10/11/242201 Addendum Signed By: 10/11/242201 [...] all came back -Nursing team checked with [facility] yesterday blood cultures were still pending,we were [...] MD 10/11/24 1127 Signed By: 10/11/24 2200 [facility]02-09-2025 Consult note Author Angelo Iglesias [facility] Note Date/Time October 11, 2024 1 :10pm [facility] EN[facility] [address] [place] [address] Med Onc/Hem Consult Note Signed Patient: Jose L Ames MR#: [id number] 2655 : 1940 Acct:[id number] Age/Sex: 84 / M Adm Date: 5 Loc: Room: [address] [place] [address] Type: ADM IN Attending Dr: Loyda Carlos [...] T2DM, HTN, YASMANI, AAA who presented to [facility] emergency room for altered mental status and weakness. [facility] chart review?patient arrived to [facility] via EMS for altered mental status, [...] denies alcohol or illicit druguse. 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 Pernicious anemia Mucopurulent chronic bronchitis Lumbar spondylosis FDC (current) use of insulin Left humeral fracture [...] unit subcut DAILY 11/05/23 [History Confirmed 07/15/24] tqgivwxp-fd-zwvfp 300 mcg-K 60 mcg-lycop 600 mcg-lutein 300 [...] % (Auto) 64.7, Lymph % (Auto) 22.0, [place] % (Auto) 11.4, Eos % (Auto) 1.1, Baso % (Auto) 0.8, Nucleat RBC Rel Count 0.1, Neut # (Auto) 1.8, Lymph # (Auto) 0.6 L, [place] # (Auto) 0.3, Eos # (Auto) 0.0, [...] Angelo Iglesias MD 10/11/24 1256 Signed By: <Electronically signed by Angelo Iglesias MD> 10/11/24 1310 [facility] Work Phone: 1(896) 469-496602-09-2025 [place] [address] Med Onc/Hem Consult Note Signed Patient: Jose L Ames MR#: [id number] 2655 : 1940 Acct:[id number] Age/Sex: 84 / M Adm Date: 5 Loc: Room: [address] [place] [address] Type: ADM IN Attending Dr: Loyda Carlos [...] T2DM, HTN, YASMANI, AAA who presented to [facility] emergency room for altered mental status and weakness. [facility] chart review?patient arrived to [facility] via EMS for altered mental status, [...] denies alcohol or illicit druguse. 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 Pernicious anemia Mucopurulent chronic bronchitis Lumbar spondylosis paleontological helper (current) use of insulin Left humeral fracture [...] 20 unit subcutDAILY 11/05/23 [History Confirmed 07/15/24] uefswfyb-at-dhdrd 300 mcg-K 60 mcg-lycop 600 mcg-lutein 300 [...] % (Auto) 64.7, Lymph % (Auto) 22.0, [place] % (Auto) 11.4, Eos % (Auto) 1.1, Baso % (Auto) 0.8, Nucleat RBC Rel Count 0.1, Neut #(Auto) 1.8, Lymph # (Auto) 0.6 L, [place] # (Auto) 0.3, Eos # (Auto) 0.0, [...] MD 10/11/24 1256 Signed By: 10/11/24 1310 [facility]02-09-2025 Progress note Author Loyda Carlos [facility] Note Date/Time October 10, 2024 1 1:33pm [facility] EN[facility] [address] [place] [address] Hospitalist Progress Note Signed Patient: Jose L Ames MR#: [id number] 2655 : 1940 Acct:[id number] Age/Sex: 84 / M Adm Date: 5 Loc: Room: [address] [place] [address] Type: ADM IN Attending Dr: Loyda Carlos [...] 79 17 119/64 97 Room Air 10/10/24 11:10/10/24 12:10/10/24 11:10/10/24 12:10/10/24 11:10/10/24 11:00 Narrative: CONSTANT- Ill appearing, not in [...] Ml SUBCUT 10/09/25 07:59 Not Given TID.WM.HS [facility] Protocol Loperamide HCl 2 mg 10/09/24 15:26 [...] consulted GI - Follow blood cultures from [facility] which were drawn when pt was at [facility], I asked the nursing team to confirm [...] <Electronically signed by Loyda Carlos MD> 10/10/24 8986 [facility] Work Phone: 1(994) 622-262302-08-2025 [place] [phone] Hospitalist Progress Note Signed Patient: Jose L Ames MR#: [id number] 2655 : 1940 Acct:[id number] Age/Sex: 84 / M Adm Date: 5 Loc: Room: [address] [place] [address] Type: ADM IN Attending Dr: Loyda Carlos [...] 10/10/24 12:00 10/10/24 11:00 10/10/24 12:00 10/10/24 11:10/10/24 11:00 Narrative: CONSTANT- Ill appearing, not in [...] consulted GI - Follow blood cultures from [facility] which were drawn when pt was at [facility], I asked the nursing teamto confirm the [...] Loyda Carlos MD 10/10/24 1225 Signed By: 10/10/24 0043 [facility]02-08-2025 Consult note Author Mateusz Arellano [facility] Note Date/Time October 10, 2024 1 2:09pm [facility] EN[facility] [address] [place] [address] Gastroenterology Consult Note Signed Patient: Jose L Ames MR#: [id number] 2655 : 1940 Acct:[id number] Age/Sex: 84 / M Adm Date: 5 Loc: Room: [address] [place] [address] Type: ADM IN Attending Dr: Loyda Carlos MD Copies to: DO Mateusz Delatorre MD Mohamad Akil, MD~ HPI Data of Consult Date of Consultation: 10/10/24 Requesting Physician: Loyda Carlos MD Consult Narrative History of present illness: Mr. Ames is a 84 year old male who is admitted with intractable diarrhea, who GIis consulted for diarrhea. He is transferred from OSH initially for altered mental status and weakness. 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 Pernicious anemia Mucopurulent chronic bronchitis Lumbar spondylosis FDC (current) use of insulin Left humeral fracture [...] unit subcut DAILY 11/05/23 [History Confirmed 07/15/24] tnndpckn-js-cgpkd 300 mcg-K 60 mcg-lycop 600 mcg-lutein 300 [...] MPV Neut % (Auto) Lymph % (Auto) [place] % (Auto) Eos % (Auto) Baso % (Auto) Nucleat RBC Rel Count Neut # (Auto) Lymph # (Auto) [place] # (Auto) Eos # (Auto) Baso # [...] % (Auto) 69.2 Lymph % (Auto) 11.5 [place] % (Auto) 18.2 Eos % (Auto) 0.5 Baso % (Auto) 0.6 Nucleat RBC Rel Count 0.1 Neut # (Auto) 3.2 Lymph # (Auto) 0.5 L [place] # (Auto) 0.8 Eos # (Auto) 0.0 [...] MPV Neut % (Auto) Lymph % (Auto) [place] % (Auto) Eos % (Auto) Baso % (Auto) Nucleat RBC Rel Count Neut # (Auto) Lymph # (Auto) [place] # (Auto) Eos # (Auto) Baso # [...] signed by Mateusz Arellano MD> 10/10/24 1209 [facility] Work Phone: 1(335) 538-465602-08-2025 Progress note Author Sergio Hazel [facility] Note Date/Time October 10, 2024 1 0:49am [facility] EN[facility] [address] [place] [address] Pulmonology Progress Note Signed Patient: Jose L Ames MR#: [id number] 2655 : 1940 Acct:[id number] Age/Sex: 84 / M Adm Date: 5 Loc: Room: [address] [place] [address] Type: ADM IN Attending Dr: Loyda Carlos [...] off Documented By: Sergio Oliva MD 10/10/24 104 Signed By: <Electronically signed by Sergio Oliva MD> 10/10/24 1049 [facility] Work Phone: 1([phone]) 622-771002-08-2025 [place] [address] Gastroenterology Consult Note Signed Patient: Jose L Ames MR#: [id number] 2655 : 1940 Acct:[id number] Age/Sex: 84 / M Adm Date: 5 Loc: Room: [address] [place] [address] Type: ADM IN Attending Dr: Loyda Carlos MD Copies to: DO Mateusz Delatorre MD Mohamad Akil, MD~ HPI Data of Consult Date of Consultation: 10/10/24 Requesting Physician: Loyda Carlos MD Consult Narrative History of present illness: Mr. Ames is a 84 year old male who is admitted with intractable diarrhea, who GIis consulted for diarrhea. He is transferred from OSH initially for altered mental status and weakness. 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 Pernicious anemia Mucopurulent chronic bronchitis Lumbar spondylosis FDC (current) use of insulin Left humeral fracture [...] 20 unit subcutDAILY 11/05/23 [History Confirmed 07/15/24] bzvhnqln-fe-aiofw 300 mcg-K 60 mcg-lycop 600 mcg-lutein 300 [...] MPV Neut % (Auto) Lymph % (Auto) [place] % (Auto) Eos % (Auto) Baso % (Auto) Nucleat RBC Rel Count Neut # (Auto) Lymph # (Auto) [place] # (Auto) Eos # (Auto) Baso # [...] % (Auto) 69.2 Lymph % (Auto) 11.5 [place] % (Auto) 18.2 Eos % (Auto) 0.5 Baso % (Auto) 0.6 Nucleat RBC Rel Count 0.1 Neut # (Auto) 3.2 Lymph # (Auto) 0.5 L [place] # (Auto) 0.8 Eos # (Auto) 0.0 [...] MPV Neut % (Auto) Lymph % (Auto) [place] % (Auto) Eos % (Auto) Baso % (Auto) Nucleat RBC Rel Count Neut # (Auto) Lymph # (Auto) [place] # (Auto) Eos # (Auto) Baso # [...] MD 10/10/24 1201 Signed By: 10/10/24 1209 [facility]02-08-2025 [place] [address] Pulmonology Progress Note Signed Patient: Jose L Ames MR#: [id number] 2655 : 1940 Acct:[id number] Age/Sex: 84 / M Adm Date: 5 Loc: Room: [address] [place] [address] Type: ADM IN Attending Dr: Loyda Carlos [...] off Documented By: Sergio Oliva MD 10/10/24 104 Signed By: 10/10/24 1049 [facility]02-08-2025 Progress note Author Loyda Carlos [facility] Note Date/Time October 09, 2024 1 0:01pm [facility] EN[facility] [address] [place] [address] Hospitalist Progress Note Signed Patient: Jose L Ames MR#: [id number] 2655 : 1940 Acct:[id number] Age/Sex: 84 / M Adm Date: 5 Loc: Room: [address] [place] [address] Type: ADM IN Attending Dr: Loyda Carlos [...] 10/09/24 13:00 10/09/24 13:00 10/09/24 13:00 10/09/24 13:10/09/24 13:00 Narrative: CONSTANT- Ill appearing, not in [...] Levophed IV 10/09/25 04:29 2 mcg/min .Q24H SHRAI 1.88 mls/hr Infusion Protocol 5 MCG/MIN Piperacillin [...] consulted GI - Follow blood cultures from [facility] -Hold nephrotoxic medications - Hold b/p medications for now Syncope- likely syncopal episode at home from hypovolemia, hypotension - Carotid US in am, Echo in am - Up with assist, fall precautions - Noted that stroke alert was called at [facility] and deemed by telestroke team due to [...] <Electronically signed by Loyda Carlos MD> 10/09/24 220 [facility] Work Phone: 1(894) 157-240202-07-[address] [address] Hospitalist Progress Note Signed Patient: Jose L Ames MR#: [id number] 2655 : 1940 Acct:[id number] Age/Sex: 84 / M Adm Date: 5 Loc: Room: [address] [place] [address] Type: ADM IN Attending Dr: Loyda Carlos [...] 94 L Room Air 10/09/24 12:00 10/09/24 13:10/09/24 13:00 10/09/24 13:00 10/09/24 13:10/09/24 13:00 Narrative: CONSTANT- Ill appearing, not in [...] consulted GI - Follow blood cultures from [facility] -Hold nephrotoxic medications - Hold b/p medications for now Syncope- likely syncopal episode at home from hypovolemia, hypotension - Carotid US in am, Echo in am - Up with assist, fall precautions - Noted that stroke alert was called at [facility] and deemed by telestroke team due to [...] Loyda Carlos MD 10/09/24 1336 Signed By: 10/09/241 [facility]02-07-2025 Radiology Diagnostic study note [facility] Main [place] [address] [place] [address] CT Scan Report Signed Patient: Jose L Ames MR#: [id number] 2655 : 1940 Acct:[id number] Age/Sex: 84 / M ADM Date: 5 Loc: Room: [address] [place] [address] Type: ADM IN Attending Dr: Loyda Carlos [...] Pascual Harris M.D.10/09/2024 4:57 PM Dictation Location: [place] [address] Transcribed By: [facility] 10/09/241656 Dictated By: Pascual Harris DO 10/09/241644 Signed By: 10/09/24 1657 [facility]02-07-2025 Consult note Author Vince Welsh [facility] Note Date/Time October 09, 2024 1 :16pm [facility] EN[facility] [address] [place] [address] Pulmonology Consult Note Signed Patient: Jose L Ames MR#: [id number] 2655 : 1940 Acct:[id number] Age/Sex: 84 / M Adm Date: 5 Loc: Room: [address] [place] [address] Type: ADM IN Attending Dr: Loyda Carlos [...] Patient was accepted in transfer from the [facility] emergency department for altered mental status [...] negative unless noted below or in HPI [facility] Medical History (Updated 10/09/24 @ 13:11 by Vince Welsh MD) Chronic kidney disease Medicare annual wellness visit, subsequent Thrombocytopenia Chronic heart failure with preserved ejection fraction (HFpEF) Echo: LVEF 65%, LVH, normal RV size/function, no valve defect - 09/2022 Anemia Vitamin D deficiency 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 Pernicious anemia Mucopurulent chronic bronchitis Lumbar spondylosis paleontological helper (current) use of insulin Left humeral fracture [...] unit subcut DAILY 11/05/23 [History Confirmed 07/15/24] snvljnpq-nc-rqhil 300 mcg-K 60 mcg-lycop 600 mcg-lutein 300 [...] day #1 for patient transferred from the [facility] for presumptive hypovolemic shock due to [...] Vince Welsh MD 5 1304 Signed By: <Electronically signed by MD Vince Welsh> 10/09/24 4586 [facility] Work Phone: 1(995) 802-811002-07-2025 [place] [address] Pulmonology Consult Note Signed Patient: Jose L Ames MR#: [id number] 2655 : 1940 Acct:[id number] Age/Sex: 84 / M Adm Date: 5 Loc: Room: [address] [place] [address] Type: ADM IN Attending Dr: Loyda Carlos [...] Patient was accepted in transfer from the [facility] emergency department for altered mental status [...] negative unless noted below or in HPI [facility] Medical History (Updated 10/09/24 @ 13:11 by Vince Welsh MD) Chronic kidney disease Medicare annual wellness visit, subsequent Thrombocytopenia Chronic heart failure with preserved ejection fraction (HFpEF) Echo: LVEF 65%, LVH, normal RV size/function, no valve defect - 09/2022 Anemia Vitamin D deficiency 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 Pernicious anemia Mucopurulent chronic bronchitis Lumbar spondylosis paleontological helper (current) use of insulin Left humeral fracture [...] 20 unit subcutDAILY 11/05/23 [History Confirmed 07/15/24] kdvwggna-jn-ttwpu 300 mcg-K 60 mcg-lycop 600 mcg-lutein 300 [...] day #1 for patient transferred from the [facility] for presumptive hypovolemic shock due to [...] MD 5 1304 Signed By: 10/09/24 1316 [facility]02-07-2025 Radiology Diagnostic study note [facility] Main [place] [address] [place] [address] Ultrasound Report Signed Patient: Jose L Ames MR#: [id number] 2655 : 1940 Acct:[id number] Age/Sex: 84 / M ADM Date: 5 Loc: Room: [address] [place] [address] Type: ADM IN Attending Dr: Loyda Carlos MD Ordering Provider: Lakesha Haskins APRN Date of Service: 10/09/24 US/US carotid doppler BI: syncope Copies to: MD Lakesha Villafuerte APRN~ CAROTID DUPLEX INDICATION: Altered mental status, slurred [...] The velocities of the left common carotidartery dck562 cm/s peak systolic and 21.1 cm/s end-diastolic [...] Dean Barnard MD10/09/2024 9:26 AM Dictation Location: RAD-DOC-04 Tech: Sunita Box Transcribed By: PWS 10/09/24925 Dictated By: Dean Barnard MD 10/09/24925 Signed By: 10/09/24925 [facility] Work Phone: 1(634) 409-917902-07-2025 History and physical note Author Lakesha Haskins [facility] Note Date/Time October 09, 2024 4 :20am [facility] ENTER [address] [place] [address] Hospitalist H&P Signed Patient: Jose L Ames MR#: [id number] 2655 : 1940 Acct:[id number] Age/Sex: 84 / M Adm Date: 5 Loc: Room: [id number] Type: ADM IN Attending Dr: Javier Murray MD Copies to: Erich Alejandro,MD Lakesha [place], MANUFACTURING MAINTENANCE MANAGER~ HPI DATE OF EXAMINATION: 10/09/24 CHIEF COMPLAINT: I don't remember HISTORY OF PRESENT ILLNESS: Mr. Ames is an 84-year-old male with a PMH of CKD, diastolic heart failure?last EF 65%, BPH, T2DM, HTN, YASMANI, AAA who presented to [facility] emergency room for altered mental status and weakness. Patient seen and examined upon transfer here to [facility] at bedside. He is very pleasant, alert [...] day, denies alcohol or illicit drug use. [facility] chart review?patient arrived to [facility] via EMS for altered mental status, [...] unless noted in the HPI or below. 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 Pernicious anemia Mucopurulent chronic bronchitis Lumbar spondylosis FDC (current) use of insulin Left humeral fracture [...] unit subcut DAILY 11/05/23 [History Confirmed 07/15/24] bscmuuku-su-owkty 300 mcg-K 60 mcg-lycop 600 mcg-lutein 300 [...] for now - Follow blood cultures from [facility] - CBC, CMP, Mag in am - Hold nephrotoxic medications - Hold b/p medications for now Syncope- likely syncopal episode at home from hypovolemia, hypotension - Carotid US in am, Echo in am - Up with assist, fall precautions - Noted that stroke alert was called at [facility] and deemed by telestroke team due to [...] signed by Javier Murray MD> 10/09/24 0420 [facility] Work Phone: 1(422) 161-263502-07-2025 [place] [address] Hospitalist H&P Signed Patient: Jose L Ames MR#: [id number] 2655 : 1940 Acct:[id number] Age/Sex: 84 / M Adm Date: 5 Loc: Room: [address] [place] [address] Type: ADM IN Attending Dr: Javier Murray MD Copies to: DO Javier Delatorre MD Paula G Smith, APRN~ HPI DATE OF EXAMINATION: 10/09/24 CHIEF COMPLAINT: I don't remember HISTORY OF PRESENT ILLNESS: Mr. Ames is an 84-year-old male with a PMH of CKD, diastolic heart failure?last EF 65%, BPH, T2DM, HTN, YASMANI, AAA who presented to [facility] emergency room for altered mental status and weakness. Patient seen and examined upon transfer here to [facility] at bedside. Heis very pleasant, alert and [...] day, denies alcohol or illicit drug use. [facility] chart review?patient arrived to [facility] via EMS for altered mental status, [...] unless noted in the HPI or below. 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 Pernicious anemia Mucopurulent chronic bronchitis Lumbar spondylosis paleontological helper (current) use of insulin Left humeral fracture [...] 20 unit subcutDAILY 11/05/23 [History Confirmed 07/15/24] wdnztxom-qd-agzhe 300 mcg-K 60 mcg-lycop 600 mcg-lutein 300 [...] for now - Follow blood cultures from [facility] - CBC, CMP, Mag in am - Hold nephrotoxic medications - Hold b/p medications for now Syncope- likely syncopal episode at home from hypovolemia, hypotension - Carotid US in am, Echo in am - Up with assist, fall precautions - Noted that stroke alert was called at [facility] and deemed by telestroke team due to [...] Lakesha Haskins APRN 10/09/24 0228 Signed By: 10/09/2431010/09/24 042 [facility]02-07-2025 Evaluation note* Diagnosis Onset Date Resolution Status Admit Date ANGIE (acute kidney injury) acute October 09, 2024 1:47am Chronic heart failure with preserved ejection fraction (HFpEF) acute October 09 1:47am Chronic kidney disease acute Fe bru2024 1:47am Diarrhea acute October 09, 2024 1:47am Gastroenteritis acute October 09, 2024 1:47am Hypovolemic shock acute 2024 1:47am YASMANI (obstructive sleep apnea) acute October 09, 2024 1:47am Pancytopenia acute October 1:47am Sepsis acute October 09, 2024 1:47am Syncope acute October 09, 2024 1:47am Type 2 diabetes mellitus wit h hyperglycemia acute October 09 1:47am [facility] Work Phone: 1(852) 644-617502-07-2025 Evaluation note* Diagnosis Onset Date Resolution Status [...] preserved ejection fraction (HFpEF) acute October 21, 2 025 11:31am Chronic kidney disease acute Fe bruary 2024 11:31am Chronic venous insufficiency of lower extremity acute October 21, 2 025 11:31am HTN (hypertension) acute 2024 11:31am Nicotine dependence acute Febru 2024 11:31am YASMANI (obstructive sleep apnea) acute October 21, 2024 11:31am Pancytopenia acute October 11:31am Pernicious anemia acute 2024 11:31am Type 2 diabetes mellitus wit h hyperglycemia acute October 21 11:31am [facility] Work Phone: 1([phone]) [phone] Evaluation note* Diagnosis Onset Date Resolution Status [...] (hypertension) acute 2024 11:31am Nicotine dependence acute Febru 2024 11:31am YASMANI (obstructive sleep apnea) acute October 21, 2024 11:31am Pernicious anemia acute 2024 11:31am Type 2 diabetes mellitus wit h hyperglycemia acute October 21 11:31am Pancytopenia resolved October 11:31am Pernicious anemia acute Febr2024 8:53am Thrombocytopenia acute October 22, 2024 8:53am [facility] Work Phone: 1([phone]) 148-242302-07-2025 Evaluation note* Diagnosis Onset Date Resolution Status [...] h hyperglycemia acute October 21 025 11:31am Pernicious anemia acute 2024 8:53am Thrombocytopenia acute October 22, 2024 8:53am Pancytopenia acute November 05 8:53am [facility] Work Phone: 1([phone]) 359-750502-07-2025 Evaluation note* Diagnosis Onset Date Resolution Status [...] (HFpEF) acute October 21, 025 11:31am Chronic venous insufficiency of lower extremity acute October 21 025 11:31am HTN (hypertension) acute 2024 11:31am Nicotine dependence acute Febru real 2024 11:31am YASMANI (obstructive sleep apnea) acute October 21, 2024 11:31am Pancytopenia acute October 11:31am Pernicious anemia acute 2024 11:31am Type 2 diabetes mellitus wit h hyperglycemia acute October 21 025 11:31am Pernicious anemia acute 2024 8:53am Thrombocytopenia acute October 22, 2024 8:53am Pancytopenia acute November 05 025 8:53am Pernicious anemia acute December 012024 2:13pm Chronic heart failure with preserved ejection fraction (HFpEF) acute December 14, 2024 2:34pm Chronic kidney disease acute Ap ril 2024 2:34pm HTN (hypertension) acute December 14, 2024 2:34pm Pancytopenia acute December 14, 2024 2:34pm Type 2 diabetes mellitus wit h hyperglycemia acute December 14, 2024 2:34pm [facility] Work Phone: 1(200) 564-541102-03-2025 History of Present illness Narrative* Jailyn Sepulveda, [...] wrist extensors , wrist flexor 5/5 , analytics architect strength 4+/5. LUE Strength deltoid , biceps , triceps , wrist extensors , wrist flexor 5/5 , analytics architect strength 4-/5. RLE Strength illopsoas, quadriceps, tibialis anterior, and gastrocnemius strength 5/5. LLE Strength illopsoas, quadriceps, tibialis anterior, and gastrocnemius strength 5/5. Normal tone x4 extremities. Bulk is normal. Sensory: Sensation is intact to light touch throughout distal extremities. Reflexes: Deep tendon reflexes diffusely hypoactive throughout. Coordination: Wlotzl-ph-ozzo testing is normal Rapid alternating movements are normal Gait: Cane Review and summary of old records: [facility] 10/03/23: sitting 124/68 95 supine 130/78 97 standing 110/61 97 patient admits mild lightheadedness upon standing MRI of the brain at [facility] on 08/21/23: No acute intracranial process. [...] surgeon) MRI cervical spine without contrast at [facility] on 03/30/21: Mild discogenic disease without central [...] plan, and return instructions documented in this encounterGeneral Leonard Wood Army Community [id number] Evaluation note* Diagnosis Onset Date Resolution Status Admit Date Chronic heart failure with preserved ejection fraction (HFpEF) acute July 15 1:53pm Chronic kidney disease acute No vember 2023 1:53pm Chronic venous insufficiency of lower extremity acute July 15 024 1:53pm Generally unsteady acute Novemb er 2023 1:53pm HTN (hypertension) acute Novemb er 2023 1:53pm Medicare annual wellness vis it, subsequent acute July 15 1:53pm Nicotine dependence acute Novem viola 2023 1:53pm YASMANI (obstructive sleep apnea) acute July 15, 2024 1:53pm Pernicious anemia acute Novembe r 2023 1:53pm Type 2 diabetes mellitus wit h hyperglycemia acute July 15 024 1:53pm [facility] Work Phone: 1(884) 484-496311-04-2024 History of Present illness Narrative* Jailyn Sepulveda, RAILRO[employer] COMMISSIONER - 07/06/2024 1:00 PM EST Images from [...] wrist extensors , wrist flexor 5/5 , analytics architect strength 4+/5. LUE Strength deltoid , biceps , triceps , wrist extensors , wrist flexor 5/5 , analytics architect strength 4-/5. RLE Strength illopsoas, quadriceps, tibialis anterior, and gastrocnemius strength 5/5. LLE Strength illopsoas, quadriceps, tibialis anterior, and gastrocnemius strength 5/5. Normal tone x4 extremities. Bulk is normal. Sensory: Sensation is intact to light touch throughout distal extremities. Reflexes: Deep tendon reflexes diffusely hypoactive throughout. Coordination: Dvtucy-tc-fmzb testing is normal Rapid alternating movements are normal Gait: Cane Review and summary of old records: [facility] 10/03/23: sitting 124/68 95 supine 130/78 97 standing 110/61 97 patient admits mild lightheadedness upon standing MRI of the brain at [facility] on 08/21/24: No acute intracranial process. [...] surgeon) MRI cervical spine without contrast at [facility] on 03/30/21: Mild discogenic disease without central [...] plan, and return instructions documented in this encounterGeneral Leonard Wood Army Community [id number] Evaluation note* Diagnosis Onset Date Resolution Status [...] with hyperglycemia acute July 1:53pm [facility] Work Phone: 1(679) 663-472308-14-2024 Hospital Discharge instructions Patient Education 04/15/2024 13:28:07 [...] your health care provider. General instructions Take uyuq-tos-brlcmte and prescription medicines only as told by [...] provider. Document Revised: 05/08/2021 Document Reviewed: 05/08/2021 [employer] Patient Education 2022 [employer]. Follow Up Care 01/29/2024 14:49:01 With:LORRAINE DAUGHERTY, Carlos A Hamilton, URL Address: [address] [place], [place] [id number]- When: Unknown [facility] 08-14-2024 NotePatient Education Obstetrics and Gynecology [...] health care provider. General instructions ? Take nsah-rnv-lsdyqss and prescription medicines only as told by [...] help your health care (more content not included)...[facility]05-29-2024 Hospital Discharge instructions Patient Education 01/29/2024 [...] your health care provider. General instructions Take knmi-xer-lqusxlj and prescription medicines only as told by [...] provider. Document Revised: 05/08/2021 Document Reviewed: 05/08/2021 [employer] Patient Education 2022 [employer]. Follow Up Care 01/28/2024 16:14:14 With:LORRAINE DAUGHERTY, Carlos A Hamilton, URL Address: [address] [place], [place] [id number]- When: Unknown [facility] 01-19-2024 Evaluation note* Encounter Date Diagnosis Assessment Notes Treatment Notes Treatment Clinical Notes Sep, Acute prostatitis (ICD-10 - N41.0) [facility] Other 12-06-2023 Evaluation note* Encounter Date Diagnosis [...] HOB elevated, avoid back sleeping. Weight loss [facility] Other 11-21-2023 Evaluation note* Encounter Date Diagnosis Assessment Notes Treatment Notes Treatment Clinical Notes Jul, Pernicious anemia (ICD-10 - D51.0) [facility] Other 10-17-2023 Evaluation note* Encounter Date Diagnosis Assessment Notes Treatment Notes Treatment Clinical Notes Jun, Pernicious anemia (ICD-10 - D51.0) [facility] Other 09-06-2023 Evaluation note* Encounter Date Diagnosis [...] use, the patient reduces the risk for DC, CVA, HTN, cardiac dysrhythmias and sudden cardiac [...] to respiratory infections, vascular disease and cancers. [facility] Other 08-21-2023 Evaluation note* Encounter Date Diagnosis Assessment Notes Treatment Notes Treatment Clinical Notes Apr, Mucopurulent chronic bronchitis (ICD-10 - J41.1) [facility] Other 07-19-2023 Evaluation note* Encounter Date Diagnosis Assessment Notes Treatment Notes Treatment Clinical Notes Mar, Pernicious anemia (ICD-10 - D51.0) [facility] Other 06-12-2023 Evaluation note* Encounter Date Diagnosis Assessment Notes Treatment Notes Treatment Clinical Notes Jan, Pernicious anemia (ICD-10 - D51.0) [facility] Other 06-06-2023 Evaluation note* Encounter Date Diagnosis [...] risk for cerebrovascular and cardiovascular disease. Jan, FDC (current) use of insulin (ICD-10 - Z79.4) Jan, Bilateral pulmonary infiltrates (ICD-10 - R91.8) Denies dyspnea, cough, wheezing or hemoptysis. Denies fever, chills or any additional symptoms of intercurrent infection Jan, Fatigue, unspecified type (ICD-10 - R53.83) [facility] Other 05-11-2023 Evaluation note* Encounter Date Diagnosis Assessment Notes Treatment Notes Treatment Clinical Notes December, Pernicious anemia (ICD-10 - D51.0) [facility] Other 03-22-2023 Evaluation note* Encounter Date Diagnosis [...] respiratory infections, vascular disease and cancers. Oct, paleontological helper (current) use of insulin (ICD-10 - Z79.4) Oct, Surgical wound infection (ICD-10 - T81.49XA) [facility] Other 02-24-2023 Evaluation note* Encounter Date Diagnosis [...] one Metformin - d/c'd ISS coverage Oct, FDC (current) use of insulin (ICD-10 - Z79.4) Oct, Chronic diastolic heart failure (ICD-10 - I50.32) Maintain euvolemic state. Control BP and HR Oct, Pernicious anemia (ICD-10 - D51.0) COntinue B12 injections Oct, Pneumonia of lower lobe due to infectious organism, unspecified laterality (ICD-10 - J18.9) Review imaging results from [facility]. CT vs CXR f/u to ensure resolution [facility] Other 02-05-2023 Evaluation note* Encounter Date Diagnosis Assessment Notes Treatment Notes Treatment Clinical Notes Oct, Mucopurulent chronic bronchitis (ICD-10 - J41.1) [facility] Other 01-24-2023 Evaluation note* Encounter Date Diagnosis Assessment Notes Treatment Notes Treatment Clinical Notes Sep, Community acquired pneumonia, unspecified laterality (ICD-10 - J18.9) [facility] [employer] Other 01-24-2023 Evaluation note* Encounter Date Diagnosis Assessment Notes Treatment Notes Treatment Clinical Notes Sep, Mucopurulent chronic bronchitis (ICD-10 - J41.1) Sep, Chronic venous insufficiency (ICD-10 - I87.2) [facility] [employer] Other 01-07-2023 Discharge summary Author Randolph Velasquez [facility] September 08, 2022 9:31am Note Date/Time September 08, 2022 9: 31am [facility] [address] [place] [address] Discharge Summary Signed Patient: Jose L Ames MR#: [id number] : 1940 Acct:[id number] Age/Sex: 81 / M Adm Date: 3 Loc: Room: [address] [place] [address]: Randolph Velasquez MD Copies to: [...] Course Hospital course: Patient was transferred to [facility] with respiratory distress and hypoxic respiratory failure requiring the use of oxygen. I orderedCAT scan of the chest which showed bilateral infiltration suspected to have pneumonia. Patient had bilateral wheezing indicative of acute COPD exacerbationand bronchospasm. Blood culture from [place] came back negative thus far Patient was [...] your primary care provider to obtain [facility] records entirely to follow up on all of the abnormal physical, laboratory, and imaging findings that I have not addressed. Please return back to the emergency room or seek medical attention if your symptoms worsen or return. Discharging you from [facility] does not mean that your medical care [...] % (Auto) 91.6, Lymph % (Auto) 3.6, [place] % (Auto) 4.5, Eos % (Auto)0.0, Baso % (Auto) 0.3, Nucleat RBC Rel Count 0.0, Neut # (Auto) 11.9 H, Lymph #(Auto) 0.5 L, [place] # (Auto) 0.6, Eos # (Auto) 0.0, [...] at rest or with minimal exertion. HEENT: Edroy conjunctiva and NL buccal mucosa Neck: Supple, [...] []] Discharge Plan Discharge Plan Patient Disposition: Retirement Facility Additional Instructions: I may not have addressed or treated all of your medical illnesses or the abnormal blood work or imaging studies during this hospitalization. Please ask your primary care provider to obtain [facility] records entirely to follow up on all [...] seen on current CAT scan done at [facility]. Please collaborate with his primary [...] worsen or return. Discharging you from [facility] does not mean that your medical care [...] PO HS fluticasone propionate [Flonase] 50 mcg/actuation Vesper,Suspension 1 spray INTRANASAL DAILY PRN (Reason: Congestion) hydrochlorothiazide 12.5 mg tablet 12.5 mg PO DAILY Follow Up: Liz Plata MD [Active Staff] - (Suspect underlying CAD) Vince Welsh MD [Active Staff] - (COPD. Abnormal CT of the chest) Erich Alejandro DO [Primary Care Provider] - (Follow-up with your Primary Care Provider after discharge from Rehab) Documented By: Randolph Velasquez MD 09/08/22 1944 Signed By: <Electronically signed by Randolph Velasquez MD> 09/08/22 0914 [facility] Work Phone: 1(309) 537-690201-06-2023 Progress note Author Randolph Velasquez [facility] September 07, 2022 9:02am Note Date/Time September 07, 2022 9: 02am [facility] [address] [place], [place] [id number] Hospitalist Progress Note Signed Patient: Jose L Ames MR#: [id number] : 1940 Acct:[id number] Age/Sex: 81 / M Adm Date: 3 Loc: 4 Room: [address] [place] [address] Type: ADM IN Attending Dr: Randolph Velasquez [...] and is sitting up in bed HEENT: Edroy conjunctiva and NL buccal mucosa Neck: Supple, [...] Propionate 1 spray 09/04/22 23:34 Fluticasone Propionate Vesper 120 Vesper/16 Gm Bottle INTRANASAL 09/04/23 23:33 DAILY PRN Congestion Furosemide 40 mg 09/07/22 08:00 Furosemide 40 Mg Tablet PO 09/07/23 07:59 DAILY.8A SHARI Glucose 0 gm 01/04/23 09:37 Dextrose 40% Gel 15 Gm Tube [...] over the last 24 hours. We called [facility] to inquire about the blood culture. Blood culture from [facility] showed no growth thus far. Swallow evaluation [...] signed by Randolph Velasquez MD> 09/07/22 0902 [facility] Work Phone: 1([phone]) 229-845601-05-2023 Progress note Author Randolph Velasquez [facility] September 06, 2022 9:15am Note Date/Time September 06, 2022 9: 15am [facility] [address] [place] [address] Hospitalist Progress Note Signed Patient: Jose L Ames MR#: [id number] : 1940 Acct:[id number] Age/Sex: 81 / M Adm Date: 3 Loc: 4 Room: [address] [place] [address] Type: ADM IN Attending Dr: Randolph Velasquez [...] and is sitting up in bed HEENT: Edroy conjunctiva and NL buccal mucosa Neck: Supple, [...] Propionate 1 spray 09/04/22 23:34 Fluticasone Propionate Vesper 120 Vesper/16 Gm Bottle INTRANASAL 09/04/23 23:33 DAILY PRN [...] <Electronically signed by Randolph Velasquez MD> 09/06/2215 [facility] Work Phone: 1(263) 496-420701-04-2023 Progress note Author Randolph Velasquez [facility] September 05, 2022 9:46am Note Date/Time September 05, 2022 9: 46am [facility] [address] [place] [address] Hospitalist Progress Note Signed Patient: Jose L Ames MR#: [id number] : 1940 Acct:[id number] Age/Sex: 81 / M Adm Date: 3 Loc: 4 Room: [address] [place] [address] Type: ADM IN Attending Dr: Randolph Velasquez [...] patient is on oxygen. Morbidly obese HEENT: Edroy conjunctiva and NL buccal mucosa Neck: Supple, [...] Mg/0.4 Ml Syringe SUBCUT 09/05/23 09:59 DAILY@1000 SHARI Fluticasone Propionate 1 spray 09/04/22 23:34 Fluticasone Propionate Vesper 120 Vesper/16 Gm Bottle INTRANASAL 09/04/23 23:33 DAILY PRN Congestion Furosemide 40 mg 09/05/22 08:00 Furosemide 40 Mg/4 Ml Vial IV-PUSH 09/05/23 07:59 BID@0800,1600 [facility] Glucose 0 gm 09/05/22 09:37 Dextrose [...] mls/hr 09/05/22 10:00 Doxy 100 IV Q12H [facility] Insulin Aspart 0 units 09/05/22 12:00 Insulin Aspart 300 Units/3 Ml Insuln.Pen SUBCUT 09/05/23 11:59 TID.WM.HS [facility] Protocol Insulin Glargine 15 units 09/05/22 09:45 Insulin Glargine 300 Units/3 Ml Insuln.Pen SUBCUT 09/05/23 09:44 DAILY [facility] Methylprednisolone Sodium Succinate 40 mg 09/05/22 14:00 Methylprednisolone Sod Succ/Pf 40 Mg/Ml (1ml) Vial IV-PUSH 09/05/23 13:59 Q8HR [facility] Nystatin 200,000 unit 09/04/22 23:40 09/05/22 00:34 Nystatin Susp 500,000 Unit/5 Ml Udc PO 09/04/23 23:39 200,000 unit QID SHARI Administration Sodium Chloride 0 ml 09/05/22 06:00 09/05/22 07:23 Sodium Chloride 0.9 % 10 Ml Syringe IV-PUSH 09/05/23 05:59 10 ml QSHIFT SHARI Administration Tamsulosin HCl 0.4 mg 09/05/22 21:00 Tamsulosin 0.4 Mg Cap.Er.24h PO 09/05/23 20:59 QPM [facility] A&P - Hospitalist Assessment/Plan (1) Acute [...] cultures were obtained at the [facility] -Counseling about tobacco addiction and the [...] plan. Patient was transferred from [facility]. Initial working diagnosis: -Sepsis secondary to community-acquired pneumonia: Started IV antibiotics. Blood cultures were collected at [facility]. Follow-up and de-escalate accordingly. -Acute hypoxic respiratory failure secondary to pneumonia: Requiring oxygen. Wean off as tolerated -Suspect new onset CHF given elevated BNP, chest x-ray with bilateral vascular congestion, leg edema on exam. Given Lasix. Check echocardiogram Javier Jerry MD Documented By: Randolph Velasquez MD 09/05/2242 Signed By: <Electronically signed by Randolph Velasquez MD> 09/05/22945 [facility] Work Phone: 1([phone]) 912-657401-04-2023 History and physical note Author Javier Murray [facility] September 05, 2022 1:03am Note Date/Time September 04, 2022 11 :14pm [facility] [address] [place] [address] Hospitalist H&P Signed Patient: Jose L Ames MR#: [id number] : 1940 Acct:[id number] Age/Sex: 81 / M Adm Date: 3 Loc: 4 Room: [address] [place] [address] Type: ADM IN Attending Dr: Clyde Wright DO Copies to: DO Javier Delatorre MD Paula G Smith, DOROTHY Wright, DO~ HPI DATE OF EXAMINATION: 09/04/22 CHIEF COMPLAINT: shortness of breath, cough, fever, chills HISTORY OF PRESENT ILLNESS: Mr. Ames is an 81-year-old male with a PMH of T2DM, HTN, BPH that was transferred from the [facility] for elevated troponin, shortness of breath, [...] palpation. Patient arrived to the [facility] emergency room with a pulse ox [...] unless noted in the HPI or below. [facility] Social History Smoking Status: Former smoker Substance [...] cultures were obtained at the [facility] Pulmonary edema?recheck BNP ? Lasix x [...] plan. Patient was transferred from [facility]. Initial working diagnosis: -Sepsis secondary to community-acquired pneumonia: Started IV antibiotics. Blood cultures were collected at [facility]. Follow-up and de-escalate accordingly. -Acute hypoxic respiratory failure secondary to pneumonia: Requiring oxygen. Wean off as tolerated -Suspect new onset CHF given elevated BNP, chest x-ray with bilateral vascular congestion, leg edema on exam. Given Lasix. Check echocardiogram Javier Jerry MD Documented By: Lakesha Haskins APRN 09/04/22 7719 Signed By: <Electronically signed by DOROTHY Haskins> 09/04/22 4130 <Electronically signed by Javier Murray MD> 09/05/22 0103 [facility] Work Phone: 1(782) 784-130804-01-2020 History of Present illness Narrative* Patient is [...] multiple comorbidities, [facility] respiratory failure due to pneumonia, could not exclude diastolic heart failure, and had mild elevation of troponin. * Diagnosis is elevated troponin not related to myocardial injury, but possibly related to supply demand mismatch. * Patient has chronic diastolic heart failure * Shortness of breath class III multifactorial * EKG today sinus rhythm 85 first-degree AV block VT interval 218 ms compared to EKG of 09/05/2022 heart rate has decreased. * 1 Uses cane as ambulatory aid, no falls [facility] [address] DO Work Phone: Chief complaint Narrative - ReportedLARRY KWAKU is being seen for CAD referral [facility] [employer] DO Work Phone: [place]u complaint Narrative - ReportedLARRY KWAKU is being seen for CAD referral S/[facility] [employer] DO Work Phone: Evaluation + Plan note No data available for this section [facility] Evaluation + Plan note Future Appointments Appointment Date:04/15/2024 01:00:00 PM Scheduled Provider:Carlos A BAEZ MD Location:[facility] Appointment Type:URO Office Visit [facility] Evaluation + Plan note Future Appointments Appointment Date:10/14/2024 01:00:00 PM Scheduled Provider:Carlos A BAEZ MD Location:[facility] Appointment Type:URO Office Visit [facility] Evaluation + Plan note Future Appointments Appointment Date:08/18/2025 02:00:00 PM Scheduled Provider:Carlos A BAEZ MD Location:[facility] Appointment Type:URO Office Visit [facility] Evaluation note* Diagnosis Onset Date Resolution Status Acute respiratory failure with hypoxia acute Community acquired pneumonia acute Elevated troponin acute Hypertension acute Multifactorial functional impairment acute Type 2 diabetes mellitus acu te [facility] Work Phone: evaluation noteNo [employer] Other Evaluation note* Diagnosis Onset Date Resolution Status Cervical spondylosis acute Chronic venous insufficiency of lower extremity acute Generally unsteady acute HTN (hypertension) acute Hypercholesterolemia acute Nicotine dependence acute YASMANI (obstructive sleep apnea) acute Pernicious anemia acute Type 2 diabetes mellitus with hyperglycemia acute [facility] Work Phone: evaluation note* Diagnosis Onset Date Resolution Status Chronic heart failure with p reserved ejection fraction (HFpEF) acute Chronic venous insufficiency of lower extremity acute Generally unsteady acute HTN (hypertension) acute Hypercholesterolemia acute Nicotine dependence acute YASMANI (obstructive sleep apnea) acute Pernicious anemia acute Stage 3b chronic kidney disease acute Type 2 diabetes mellitus with hyperglycemia acute [facility] Work Phone: evaluation note* Diagnosis Onset Date Resolution Status Chronic [...] diabetes mellitus with hyperglycemia acute [facility] Work Phone: evaluation note* Diagnosis Onset Date Resolution Status Chronic heart failure with p reserved ejection fraction (HFpEF) acute Chronic venous insufficiency of lower extremity acute Generally unsteady acute HTN (hypertension) acute Nicotine dependence acute YASMANI (obstructive sleep apnea) acute Pernicious anemia acute Stage 3b chronic kidney disease acute Type 2 diabetes mellitus with hyperglycemia acute Vitamin B12 deficiency nonea ctive [facility] Work Phone: Evaluation note* Diagnosis Imbalance- Primary Abnormality of gait Dizziness Dizziness and giddiness Generalized weakness Daytime hypersomnolence documented in this encounter [facility] HealthcareEvaluation note* Diagnosis Imbalance- Primary Abnormality of gait Dizziness Dizziness and giddiness Generalized weakness documented in this encounter [facility] HealthcareHistory general Narrative - Reported* Type Description [...] WITH CYSTOSCOPY 2014 Hospitalization History [facility] Hospitalization History SEE SURGICAL HX [facility] [employer] Other History general [facility] - [facility] [employer] Other History general Narrative - Reported* Type [...] low O2 82) Hospitalization History [facility] Hospitalization History SEE SURGICAL HX [employer] Other History of Present illness Narrative* 82-year-old [...] was prompted by a hospital stay at [facility].Patient was admitted in transfer from [facility], with hypoxemia cough congestion, treated for [...] today sinus rhythm 85 first-degree AV block VT interval 218 ms compared to EKG of [...] * Sincerely, * Cathleen Lopez MD [facility] * I told patient that he should bring his inhalers and use them prior to his perfusion study. -[facility]Don [address] DO Work Phone: Hospital Discharge instructions No data available for this section [facility] Discharge instructions Additional Instructions I may not have addressed or treated all of your medical illnesses or the abnormal blood work or imaging studies during this hospitalization. Please ask your primary care provider to obtain [facility] records entirely to follow up on all [...] seen on current CAT scan done at [facility]. Please collaborate with his primary [...] worsen or return. Discharging you from [facility] does not mean that your medical care ends here and now. You may still need additional monitoring, work up, investigation, and treatment plan to be handled from this point on by out patient providers including your primary care provider and specialists. For any medication question, please contact your retail pharmacist or your primary care provider. Thank you. [facility] to manage care: - DNRCCA without [...] [facility]inalysis in 2 weeks - [facility] Work Phone: Progress note No data available for this section [facility] Progress note Author Angelo Iglesias [facility] Note Date/Time November 05, 2024 8:44 am [facility] [place] [address] Cancer Center Note Signed Patient: Jose L Ames MR#: [id number] : 1940 Acct:[id number] Age/Sex: 84 / M Type: REG AMB [...] T2DM, HTN, YASMANI, AAA who presented to [facility] emergency room for altered mental status and weakness. [facility] chart review?patient arrived to [facility] via EMS for altered mental status, [...] denies alcohol or illicit druguse. At [facility], his iron studies were c/w anemia of [...] mg (1/2 x 20 mg) PO BID [id number] mcg (Centrum Silver Men) 1 tab PO [...] up with labs and imaging for review. 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 (current) use of insulin Left humeral fracture [...] Angelo Iglesias MD> 11/05/24 0944 [facility] Work Phone: Reason for referral (narrative)No reason for referral information availableC[facility] Work Phone: Chief Complaint and Reason for [...] Admit Date Vitamin B12 deficiency May 26, 2 024 3:25pm Chronic heart failure with p reserved ejection fraction (HFpEF) July 15, 2024 1:53pm Chronic kidney disease July 15 1:53pm Chronic venous insufficiency of lower ex tremity July 15, 2024 1:53pm Generally unsteady July 15, 2024 1:53pm HTN (hypertension) July 15, 2024 1:53pm Medicare annual wellness visit, subseque nt July 15, 2024 1:53pm Nicotine dependence [...] 15, 2024 1:53pm Medicare annual wellness visit, subseque nt July 15, 2024 1:53pm Nicotine dependence [...] with hyperglyce lyla December 14, 2024 2:34pm Chief Complaint Admit Date PANCYTOPENIA November 05, 2024 8:45 am FOLLOW UP AFTER BONE MARROW BX October 8:53am B12 shot December 10, 2024 2:1 3pm leg rash December 14, 2024 2:3 4pm 3 month f/u January 21, 2025 10:28 am Reason for Visit Admit Date Pancytopenia November 05, 2024 8:53 am Pernicious anemia December 10, 2024 2:1 3pm Chronic heart failure with p reserved ejection fraction (HFpEF) December 14, 2024 2:34pm Chronic kidney disease December 14, 2024 2:34pm Dyshidrotic dermatitis December 14, 2024 2:34pm Pancytopenia December 14, 2024 2:3 4pm Type 2 diabetes mellitus with hyperglyce lyla December 14, 2024 2:34pm Chronic heart failure with p reserved ejection fraction (HFpEF) January 21, 2025 10:28am Chronic venous insufficiency of lower ex tremity January 21, 2025 10:28am HTN (hypertension) January 21, 2025 10:28 am Nicotine dependence January 21, 2025 10:28 am YASMANI (obstructive sleep apnea) January 21, 2025 10:28am Pancytopenia January 21, 2025 10:28 am Pernicious anemia January 21, 2025 10:28 am Type 2 diabetes mellitus with hyperglyce lyla January 21, 2025 10:28am Polyuria January 21, 2025 10:28 am Chief Complaint Admit Date B12 shot December 10, 2024 2:1 3pm leg rash December 14, 2024 2:3 4pm 3 month f/u January 21, 2025 10:28 am B12 shot March 04, 2025 3:26p m Reason for Visit Admit Date Pernicious anemia December 10, 2024 2:1 3pm Chronic heart failure with p reserved ejection fraction (HFpEF) December 14, 2024 2:34pm Chronic kidney disease December 14, 2024 2:34pm Dyshidrotic dermatitis December 14, 2024 2:34pm Pancytopenia December 14, 2024 2:3 4pm Type 2 diabetes mellitus with hyperglyce lyla December 14, 2024 2:34pm Chronic heart failure with p reserved ejection fraction (HFpEF) January 21, 2025 10:28am Chronic venous insufficiency of lower ex tremity January 21, 2025 10:28am HTN (hypertension) January 21, 2025 10:28 am Nicotine dependence January 21, 2025 10:28 am Obesity January 21, 2025 10:28 am YASMANI (obstructive sleep apnea) January 21, 2025 10:28am Pancytopenia January 21, 2025 10:28 am Pernicious anemia January 21, 2025 10:28 am Type 2 diabetes mellitus with hyperglyce lyla January 21, 2025 10:28am Polyuria January 21, 2025 10:28 am Chief Complaint Admit Date 3 month f/u January 21, 2025 10:28 am B12 shot March 04, 2025 3:26p m 6 month follow up April 12, 2025 12 :56pm Reason for Visit Admit Date Chronic heart failure with preserved eje ction fraction (HFpEF) January 21, 2025 10:28am Chronic venous insufficiency of lower ex tremity January 21, 2025 10:28am HTN (hypertension) January 21, 2025 10:28 am Nicotine dependence January 21, 2025 10:28 am Obesity January 21, 2025 10:28 am YASMANI (obstructive sleep apnea) January 21, 2025 10:28am Pancytopenia January 21, 2025 10:28 am Pernicious anemia January 21, 2025 10:28 am Type 2 diabetes mellitus with hyperglyce [facility] January 21, 2025 10:28am Polyuria January 21, 2025 10:28 am Pernicious anemia March 04, 2025 3:26p m Vitamin B12 deficiency March 04, 2025 3: 26pm Advance Directives Advance Directive Response Recorded Date/ [...] DO Primary Care Provider Active Start: December 14, 2024 End: December 14, 2024 Erich Alejandro DO Attending Provider Active Sta rt: December 14, 2024 End: December 14, 2024 Team Status: Active Member Role Status Dates Erich Alejandro DO Primary Care Provider Active Start: December 17, 2024 Erich Alejandro DO Attending Provider Active Sta rt: December 17, 2024 Team Status: Inactive Member Role Status Dates Erich Alejandro DO Primary Care Provider Active Start: January 21, 2025 End: January 21, 2025 Erich Alejandro DO Attending Provider Active Sta rt: January 21, 2025 End: January 21, 2025 Team Status: Inactive Member Role Status Dates Erich Alejandro DO Primary Care Provider Active Start: March 04, 2025 End: March 04, 2025 Staci Burnette MD Attending Provider Active St art: March 04, 2025 End: March 04, 2025 Team Status: Active Member Role Status Dates [...] 2024 End: November 05, 2024 Team Status: Inactive Member Role Status Dates Erich Alejandro DO Primary Care Provide r, Attending Provider Active Start: December 14, 2024 End: December 14, 2024 Team Status: Active Member Role Status Dates Erich Javon DO Primary Care Provide r, Attending Provider Active Start: December 17, 2024 Team Status: Inactive Member Role Status Dates Erich Alejandro , DO Primary Care Provide r, Attending Provider Active Start: January 21, 2025 End: January 21, 2025 Team Status: Inactive Member Role Status Dates Erich Alejandro , DO Primary Care Provide r, Attending Provider Active Start: September 01, 2024 End: September 01, 2024 Team Status: Inactive Member Role Status Dates Erich Alejandro , DO Primary Care Provide r, Attending Provider Active Start: October 05, 2024 End: October 05, 2024 Team Status: Active Member Role Status Dates Erich Alejandro DO Primary Care Provide r, Attending Provider Active Start: October 06, 2024 Team Status: Active Member Role Status Dates Erich Alejandro DO Primary Care Provider Active Start: October 08, 2024 Carey Smith DO Attending Provider Active Sta rt: October 08, 2024 Team Status: Inactive Member Role Status Dates Erich Javon DO Primary Care Provider Active Start: October [...] Loyda Carlos MD Other Provider Active Start: [place] 2024 Team Status: Active Member Role Status Dates Erich Alejandro , DO Primary Care Provider Active Start: October 15, 2024 Nicole Santiago CMA Attending Provider Active Start: October 15, 2024 Team Status: Inactive Member Role Status Dates Erich Alejandro , DO Primary Care Provide r, Attending Provider Active Start: October 21, 2024 End: October 21, 2024 Team Status: Active Member Role Status Dates Erich Alejandro , DO Primary Care Provide r, Attending Provider Active Start: July 16, 2024 Team Status: Inactive Member Role Status Dates Erich Alejandro , DO Primary Care Provide r, Attending Provider Active Start: July 15, 2024 End: July 15, 2024 Team Status: Active Member Role Status Dates Erich Alejandro , DO Primary Care Provide r, Attending Provider Active Start: April 28, 2024 Team Status: Inactive Member Role Status Dates Ercih Alejandro , DO Primary Care Provide r, Attending Provider Active Start: May 26, 2024 End: May 26, 2024 Team Status: Inactive Member Role Status Dates Erich Alejandro , DO Primary Care Provide r, Attending Provider Active Start: June 30, 2024 End: June 30, 2024 Team Status: Active Member Role Status Jeremiah Alejandro , DO Primary Care Provide r, Attending Provider Active Start: July 01, 2024 Team Status: Inactive Member Role Status Dates Erich Alejandro , DO Primary Care Provide r, Attending Provider [...] End: December 19, 2023 Melissa Sneed APRN RAILROAD COMMISSIONER-C Attending Provider Act abe Start: December 19, [...] November 06, 2023 End: November 06, 2023 Sales Rep Relationship Specialty Start Date End Date Erich Alejandro MD [address] [facility] [place] [phone] PCP - General Internal Medicine 01/30/24 Sales Rep Relationship Specialty Start Date End Date Erich Alejandro MD [address] [facility] [place] [phone] PCP - General Internal Medicine 01/30/24 Sales Rep Relationship Specialty Start Date End Date Erich Alejandro MD [address] [facility] [place] [address] PCP - General Internal Medicine 01/30/24 Jailyn Sepulveda NP [address] [address] Nurse Practitioner Neurology 07/06/24 Vince Cherry DO [address] [address] Referring Physician Neurology 07/06/24 Sales Rep Relationship Specialty Start Date End Date Erich Alejandro MD [address] [place] [id number] PCP - General Internal Medicine 01/30/24 Jailyn Sepulveda NP [address] [address] Nurse Practitioner Neurology 07/06/24 Vince Cherry [address] [place] [id number] Referring Physician Neurology 07/06/24 Team Status: Inactive [...] Alejandro DO Primary Care Provider Active Start: April 12, 2025 End: April 12, 2025 Gracia Brady MANUFACTURING MAINTENANCE MANAGER-SHELL CORE AND MOLDING SUPERVISOR-C Attending Provider Active Start: April 12, 2025 End: April 12, 2025 REASON FOR VISIT (unrecogniz ed section and [...] content) DATE CREATED AUTHOR 10/26/2022 [facility] DATE CREATED AUTHOR AUTHOR'S ORGANIZ ATION 03/09/2023 [facility] DATE CREATED AUTHOR AUTHOR'S ORGANIZ ATION 03/12/2023 [facility] DATE CREATED AUTHOR AUTHOR'S ORGANIZ ATION 03/12/2023 [employer] DATE CREATED AUTHOR AUTHOR'S ORGANIZ ATION 10/06/2024 [facility] DATE CREATED AUTHOR AUTHOR'S ORGANIZ ATION 11/04/2024 [facility] DATE CREATED AUTHOR AUTHOR'S ORGANIZ ATION 11/15/2024 [facility] DATE CREATED AUTHOR AUTHOR'S KEITH PALMER 04/09/2025 [facility] Goals (unrecognized section and content) Goals may [...] BE BASED ON THE PRIMARY CLINICAL RECORDS. [facility] [employer] [facility]. provides no warranty or guarantee of the accuracy or completeness of information in this document.
[2025-04-23 12:26] LABS: Hematocrit 39.1 % (42.0-54.0); Hemoglobin 13.3 g/dL (14.0-18.0); Immature Granulocytes Abs Auto 0.02 10^3/uL (0.00-0.03); Immature Granulocytes Pct Auto 0.4 % (0.0-0.5); Lymphocytes Absolute Auto 0.8 10^3/uL (1.2-3.8); Mean Corpuscular HGB Conc 34.0 g/dL (29.9-35.2); Mean Corpuscular Hemoglobin 33.8 pg (25.9-34.0); Mean Corpuscular Volume 99.2 fL (80.0-94.0); Platelet Count 98 10^3/uL (150-450); Red Blood Count 3.94 10^6/uL (4.70-6.10); White Blood Count 4.9 10^3/uL (4.0-11.0)
[2025-04-23 12:28] LABS: Alanine Aminotransferase 24 U/L (16-63); Albumin Globulin Ratio 1.1; Albumin Level 3.6 g/dL (3.4-5.0); Alkaline Phosphatase 99 U/L (46-116); Anion Gap 7.0; Aspartate Amino Transferase 10 U/L (15-37); Blood Urea Nitrogen 17.0 mg/dL (7.0-18.0); Calcium 8.7 mg/dL (8.5-10.1); Carbon Dioxide 31.3 mmol/L (21.0-32.0); Chloride 104 mmol/L (98-107); Estimated GFR (African America >60 (>=60 mL/min/1.73m^2); Estimated GFR (Non-African Ame 53 (>=60 mL/min/1.73m^2); Globulin 3.3 g/dL; Glucose 157 mg/dL (74-106); Potassium 4.3 mmol/L (3.5-5.1); Sodium 138 mmol/L (136-145); Total Protein 6.9 g/dL (6.4-8.2)
== END 2025-04-23 11:51 | disposition home or self-care (01) ==
PROVIDERS: PCP Internal Medicine; Visit Provider Internal Medicine
DX: E78.00 Pure hypercholesterolemia, unspecified (principal); E11.65 Type 2 diabetes mellitus with hyperglycemia; I10 Essential (primary) hypertension; D51.0 Vitamin B12 deficiency anemia due to intrinsic factor deficiency
CPT/HCPCS: 36415; 80053; 83036; 85025

== ENCOUNTER 2025-07-18 23:36 | Inpatient (IN) | payer MEDICARE, BC, SELFPAY ==
[2025-07-18 23:40] VITALS: BP 154/81; PULSE 103; TEMP 37.7; O2SAT 94; BMI 34.9
[2025-07-18 23:42] VITALS: PULSE 103; O2SAT 92
--- NOTE | 2025-07-18 23:47 | ECG_ITS ---
[facility] Test Date: 2025-07-18 Pat Name: JOSE L AMES Department: Room: - Gender: Male Checking Department Supervisor: : 1940 Requested By: [id number] Order Number: [id number] Reading MD: JOSE UNGER M.D. Measurements Intervals [place] Rate: 103 P: 58 SC: 198 QRS: -2 QRSD: 100 T: 66 QT: 342 QTc: 402 Interpretive Statements 1120 Sinus tachycardia 4068 Nonspecific Twave abnormality 9140 abnormal rhythm ECG Compared to ECG 09/04/2022 16:38:58 Ventricular premature complex(es) no longer present Left-axis deviation no longer present Electronically Signed On 07-19-2025 5:54:32 EST by JOSE UNGER M.D.
--- NOTE | 2025-07-18 23:47 | XR_ITS ---
The [address] [address] Patient Name: JOSE L AMES MRN: [id number] date: 1940 Sex: M Assigned Patient Location: ED.MAIN Current Patient Location: [place] Accession/Order Number: [id number] Exam Date: 07/18/2025 23:59 Report Date: 07/19/2025 08:37 At the request of: IMANI PADILLA MD Procedure: XR chest 1V PORTABLE AP ERECT CHEST 2343 hours CLINICAL HISTORY: Weakness and headache COMPARISON: 10/08/2025 The cardiac and mediastinal contours are similar. No vascular congestion is noted. There is mild atelectasis and/or scarring. No focal consolidation is identified. A left basilar calcified granuloma is seen. There is no sizable effusion or pneumothorax. The osseous structures are intact. XR/XR chest 1V IMPRESSION: CHRONIC APPEARING CHANGES. NO ACUTE FINDINGS . Impression dictated by: Johanny Cardenas M.D. 07/19/2025 8:37 AM Dictation Location: [place] [address] Electronically authenticated by: [id number] Y Date: 07/19/2025 08:37
--- NOTE | 2025-07-18 23:49 | ED.GENADUL1 ---
HPI HPI - General Adult General Chief complaint: Weakness Stated complaint: WEAKNESS Time Seen by Provider: 07/18/25 23:38 Source: patient Mode of arrival: ambulance Limitations: no limitations History of Present Illness HPI narrative: 84-year-old male presented to the emergency department by paramedics for generalized weakness. Much of the history is obtained from the paramedics who reported that he was in the yard doing yard work all day and then tonight started feeling weak. He reportedly fell in his home but did not injure himself and he tells us he did not hit his head. He does however complain of a headache. He denies any pain at all. Related Data Home Medications ?Medication ?Instructions ?Recorded ?Confirmed amlodipine 10 mg tablet 10 mg PO DAILY 10/08/24 10/08/24 furosemide 40 mg tablet 20 mg PO DAILY 10/08/24 10/08/24 insulin glargine 100 unit/mL (3 20 unit subcut DAILY 10/08/24 10/08/24 mL) subcutaneous pen (Lantus Solostar U-100 Insulin) lisinopril 20 mg tablet 20 mg PO DAILY 10/08/24 10/08/24 mirabegron 50 mg tablet,extended 50 mg PO Q24H 10/08/24 10/08/24 release 24 hr oxybutynin 3.9 mg/24 hr semiweekly 10/08/24 transdermal patch oxybutynin chloride 5 mg tablet 5 mg PO .QHS 10/08/24 10/08/24 potassium chloride 10 mEq 10 meq PO DAILY 10/08/24 10/08/24 tablet,extended release semaglutide 0.25 mg or 0.5 mg (2 2 mg subcut QWEEK 10/08/24 10/08/24 mg/3 mL) subcutaneous pen injector (Ozempic) tamsulosin 0.4 mg capsule 0.4 mg PO .QHS 10/08/24 10/08/24 tizanidine 2 mg tablet 2 mg PO .QHS 10/08/24 10/08/24 Allergies Allergy/AdvReac Type Severity Reaction Status Date / Time No Known Drug Allergies Allergy Verified 07/18/25 23:47 Review of Systems ROS Narrative A ten point review of systems is negative except as noted above. PFSH PFSH Social History (System 02/10/25 @ 13:10 by Leslie Mcdowell Little interest or pleasure in doing things: not at all Feeling down, depressed, or hopeless: not at all Exam Narrative Exam Narrative: Nurses note and vital signs reviewed General:The patient appears in no acute distress Skin:Warm, dry, no pallor noted.There is no rash noted. Head:Normocephalic, atraumatic,: No abrasions or hematomas to his scalp Eye: Normal conjunctiva, no drainage Ears, Nose, Mouth, and Throat: oral mucosa is slightly dry. Nares patent. Cardiovascular:Regular Rate and Rhythm Respiratory:Patient is in no distress, no accessory muscle use, lungs are clear to auscultation, no wheezing, rales or rhonchi Back:non-tender GI: Soft and nontender Musculoskeletal: The patient has no evidence of calf tenderness, no pitting edema, symmetrical pulses noted bilaterally. No palpable tenderness to his extremities. Neurological: He is awake and alert. He can tell me his name and the name of the hospital. He cannot tell me the year. He tells me his age correctly. Psychiatric: Cooperative Constitutional Vital Signs, click to edit/add: Last Vital Signs Temp 99.9 F 07/18/25 23:40 Pulse 97 H 07/19/25 01:10 Resp 33 H 07/19/25 01:10 BP 144/75 H 07/19/25 01:00 Pulse Ox 95 07/19/25 01:00 O2 Del Method Room Air 07/18/25 23:40 Course Vital Signs Vital signs: Vital Signs Temperature 99.9 F 07/18/25 23:40 Pulse Rate 103 H 07/18/25 23:40 Respiratory Rate 20 07/18/25 23:40 Blood Pressure 154/81 H 07/18/25 23:40 Pulse Oximetry 94 L 07/18/25 23:40 Oxygen Delivery Method Room Air 07/18/25 23:40 Temperature 99.9 F 07/18/25 23:40 Pulse Rate 97 H 07/19/25 01:10 Respiratory Rate 33 H 07/19/25 01:10 Blood Pressure 144/75 H 07/19/25 01:00 Pulse Oximetry 95 07/19/25 01:00 Oxygen Delivery Method Room Air 07/18/25 23:40 Medical Decision Making MDM Narrative Medical decision making narrative: The patient presented with generalized weakness. Have no clinical suspicion of a stroke. He does not have any localizing findings. His workup is negative. No specific cause of his weakness is found. WBC is 13.3 and lactic acid was just above the upper limit of normal at 2.3. He was given some IV fluids. No evidence of pneumonia or UTI or COVID or influenza. He will be admitted for observation. Findings are discussed with his family. Differential Diagnosis Differential Diagnosis: Dehydration, pneumonia, UTI Lab Data Lab results reviewed: Yes I reviewed the patient's lab results Labs: Lab Results 07/18/25 07/19/25 07/19/25 Range/Units 23:45 00:01 00:03 WBC 13.3 H (4.0-11.0) 10^3/uL RBC 4.02 L (4.70-6.10) 10^6/uL Hgb 13.7 L (14.0-18.0) g/dL Hct 40.1 L (42.0-54.0) % MCV 99.8 H (80.0-94.0) fL MCH 34.1 H (25.9-34.0) pg MCHC 34.2 (29.9-35.2) g/dL RDW 13.3 (11.0-15.0) % Plt Count 93 L (150-450) 10^3/uL MPV 10.3 (9.5-13.5) fL Neut % (Auto) 89.3 H (43.0-75.0) % Lymph % (Auto) 2.5 L (20.5-60.0) % Russell % (Auto) 7.5 (1.7-12.0) % Eos % (Auto) 0.1 L (0.9-7.0) % Baso % (Auto) 0.2 (0.2-2.0) % Neut # (Auto) 11.8 H (1.4-6.5) 10^3/uL Lymph # (Auto) 0.3 L (1.2-3.8) 10^3/uL Russell # (Auto) 1.0 H (0.3-0.8) 10^3/uL Eos # (Auto) 0.0 (0.0-0.7) 10^3/uL Baso # (Auto) 0.0 (0.0-0.1) 10^3/uL Abs Immat Gran (auto) 0.05 H (0.00-0.03) 10^3/uL Imm/Tot Granulo (auto) 0.4 (0.0-0.5) % Sodium 139 (136-145) mmol/L Potassium 4.2 (3.5-5.1) mmol/L Chloride 102 (98-107) mmol/L Carbon Dioxide 26.8 (21.0-32.0) mmol/L Anion Gap 14.4 BUN 20.0 H (7.0-18.0) mg/dL Creatinine 1.38 H (0.70-1.30) mg/dL Est GFR ( Amer) 59 L (>=60 mL/min/1.73m^2) Est GFR (Non-Af Amer) 49 L (>=60 mL/min/1.73m^2) BUN/Creatinine Ratio 14.5 Glucose 219 H (74-106) mg/dL Lactate 2.3 H* (0.4-2.0) mmol/L Calcium 9.0 (8.5-10.1) mg/dL Troponin I High Sens 17.9 (4.0-76.1) pg/mL Urine Color Lt. yellow (YELLOW) Urine Clarity Clear (CLEAR) Urine pH 6.0 (5.0-9.0) Ur Specific White 1.015 (1.005-1.025) Urine Protein Trace (NEG/TRACE) mg/dL Urine Glucose (UA) 100 A (NEGATIVE) mg/dL Urine Ketones 15 A (NEGATIVE) mg/dL Urine Occult Blood Small A (NEGATIVE) Urine Nitrite Negative (NEGATIVE) Urine Bilirubin Negative (NEGATIVE) Urine Urobilinogen 1.0 (0.2-1.0) EU/dL Ur Leukocyte Esterase Negative (NEGATIVE) Urine RBC 0-2 (0-2) #/HPF Urine WBC 0-2 A (NONE SEEN) #/HPF Ur Squamous Epith Cells Few A (NONE/RARE) #/LPF Urine Crystals None seen (None Seen) #/HPF Urine Bacteria None seen (NONE SEEN) #/HPF Urine Casts Seen A (NONE SEEN) #/LPF Fine Granular Casts Rare Urine Mucus None seen (NONE SEEN) Ur Culture Indicated? No Influenza Type A Ag Influenza Type B Ag SARS-CoV-2 Ag (CV2AG) (NEGATIVE) POC Glucose 234 H (74-106) mg/dL 07/19/25 Range/Units 00:10 WBC (4.0-11.0) 10^3/uL RBC (4.70-6.10) 10^6/uL Hgb (14.0-18.0) g/dL Hct (42.0-54.0) % MCV (80.0-94.0) fL MCH (25.9-34.0) pg MCHC (29.9-35.2) g/dL RDW (11.0-15.0) % Plt Count (150-450) 10^3/uL MPV (9.5-13.5) fL Neut % (Auto) (43.0-75.0) % Lymph % (Auto) (20.5-60.0) % Russell % (Auto) (1.7-12.0) % Eos % (Auto) (0.9-7.0) % Baso % (Auto) (0.2-2.0) % Neut # (Auto) (1.4-6.5) 10^3/uL Lymph # (Auto) (1.2-3.8) 10^3/uL Russell # (Auto) (0.3-0.8) 10^3/uL Eos # (Auto) (0.0-0.7) 10^3/uL Baso # (Auto) (0.0-0.1) 10^3/uL Abs Immat Gran (auto) (0.00-0.03) 10^3/uL Imm/Tot Granulo (auto) (0.0-0.5) % Sodium (136-145) mmol/L Potassium (3.5-5.1) mmol/L Chloride (98-107) mmol/L Carbon Dioxide (21.0-32.0) mmol/L Anion Gap BUN (7.0-18.0) mg/dL Creatinine (0.70-1.30) mg/dL Est GFR ( Amer) (>=60 mL/min/1.73m^2) Est GFR (Non-Af Amer) (>=60 mL/min/1.73m^2) BUN/Creatinine Ratio Glucose (74-106) mg/dL Lactate (0.4-2.0) mmol/L Calcium (8.5-10.1) mg/dL Troponin I High Sens (4.0-76.1) pg/mL Urine Color (YELLOW) Urine Clarity (CLEAR) Urine pH (5.0-9.0) Ur Specific White (1.005-1.025) Urine Protein (NEG/TRACE) mg/dL Urine Glucose (UA) (NEGATIVE) mg/dL Urine Ketones (NEGATIVE) mg/dL Urine Occult Blood (NEGATIVE) Urine Nitrite (NEGATIVE) Urine Bilirubin (NEGATIVE) Urine Urobilinogen (0.2-1.0) EU/dL Ur Leukocyte Esterase (NEGATIVE) Urine RBC (0-2) #/HPF Urine WBC (NONE SEEN) #/HPF Ur Squamous Epith Cells (NONE/RARE) #/LPF Urine Crystals (None Seen) #/HPF Urine Bacteria (NONE SEEN) #/HPF Urine Casts (NONE SEEN) #/LPF Fine Granular Casts Urine Mucus (NONE SEEN) Ur Culture Indicated? Influenza Type A Ag Negative Influenza Type B Ag Negative SARS-CoV-2 Ag (CV2AG) Negative (NEGATIVE) POC Glucose (74-106) mg/dL Imaging Data Chest x-ray, CT brain: My impression: Chest x-ray on my interpretation shows no acute findings Radiologist's impression: CT brain per radiologist shows mild to moderate generalized brain volume loss with no acute intracranial hemorrhage, mass, infarct, or edema ECG Data Attestation: I personally reviewed and interpreted this ECG as follows: (EKG on my interpretation shows sinus rhythm with a rate of 103 and no acute findings) Discharge Plan Discharge Chief Complaint: Weakness Clinical Impression: Generalized weakness Patient Disposition: Admitted as Observation Time of Disposition Decision: :23 Condition: Fair
[2025-07-18 23:50] VITALS: PULSE 102; O2SAT 93
[2025-07-19] VITALS (34 sets, daily range): BP systolic 113–171; BP diastolic 54–109; PULSE 78–110; TEMP 36.6–39.1; O2SAT 90–100; BMI 31.6
--- OUTSIDE RECORDS SUMMARY | 2025-07-19 00:10 | XMS_ITS | Clinical Summary ---
Author Organization [facility] Address [address] [facility] [place] [address] Care Team Providers Care Electric Arc Welder Name Role Phone ShahidErich Valentine CRISTINA Primary Care Provider [phone] Jeannette Khanna NP Unavailable [phone] Vince Cherry DO Unavailable [phone] Allergies No known active allergies Medications MedicationSigDispense QuantityRefillsLast FilledStart DateEnd DateStatus hydroCHLOROthiazide (HYDRODiuril) 25 MG tablet Take 25 mg by mouth Daily 1 tablet in the morningActive aspirin 81 MG EC tablet Take 81 mg by mouth Daily 1 tabletActive tamsulosin (Flomax) 0.4 MG 24 hr capsule Take 0.4 mg by mouth Daily 1 capsuleActive metFORMIN (Glucophage) 1000 MG tablet Take 1,000 mg by mouth in the morning and 1,000 mg in the evening. Take with meals. 1 tablet .Active glucose blood test strip 11/05/2023ctive fluticasone (Flonase) 50 MCG/ACT nasal spray Daily11/05/2023ctive FREESTYLE LITE test strip TO TEST BLOOD SUGAR TWICE DAILY01/09/2024ctive B-D UF III MINI PEN NEEDLES 31G X 5 MM misc USE WITH LANTUS DAILY11/10/2023ctive FreeStyle lancets USE TO TEST TWICE A DAY01/13/2024ctive lisinopril 20 MG tablet Take 20 mg by mouth Daily04/07/2023ctive tiZANidine (Zanaflex) 2 MG tablet Take 1 mg by mouth at uahgbpb7307/04/2023ctive torsemide (Demadex) 10 MG tablet Take 5 mg by mouth Daily06/17/2023ctive amLODIPine (Norvasc) 10 MG tablet Take by mouth DailyActive ASCORBIC ACID PO 500 mg04/15/2024ctive CHOLECALCIFEROL PO 10 mcg04/15/2024ctive Jardiance 10 MG 02/05/2024ctive Lantus SoloStar 100 UNIT/ML pen INJECT 20 UNITS SUBCUTANEOUSLY ONCE A DAY06/03/2024ctive mirabegron ER (Myrbetriq) 50 MG 24 hr tablet Take 50 mg by mouth Daily07/02/2024ctive oxybutynin (Ditropan) 5 MG tablet TAKE 1 TABLET BY MOUTH 30 MINUTES PRIOR TO BEDTIMEActive potassium chloride CR (Klor-Con) 10 MEQ ER tablet Take 10 mEq by mouth Daily07/02/2024ctive Semaglutide,0.25 or 0.5MG/DOS, 2 MG/3ML solution pen-injector every week04/09/2024ctive Active Problems ProblemNoted DateDiagnosed DateCervical emympmenzqduj40/30/4400Gytqdt01/30/2024 Overview (12/31/2023): It is my impression that the patient has ataxia, confusion and also stroke risk factors inclusive of diabetes and hypertension. I am concerned this may represent intracranial mass lesion such as stroke or tumor. We will need to evaluate with urgent intracranial imaging. . . PLAN: MRI brain with and without contrast continue aspirin for secondary stroke prevention Hkjfhbrdj26/30/2024 Overview (12/31/2023): No cause identified on MRI. Thyroid-stimulating hormone within normal limits. He any recurrence of this and feels his memory has been stable. - PLAN: - Monitor clinically Primary brfcvlovrtdx04/30/2024 Overview (12/31/2023): The patient does have hypertension. Risk factor for stroke. Recommended tight control and close follow up with PCP and cardiology. Xphnhamdz11/30/2024 Overview (12/31/2023): See above Bilateral arm opcapfua09/30/2024 Overview (12/31/2023): It is my impression that the patient has bilateral arm weakness. This is progressive. There is a dermatomal distribution of symptomatology. There is failure of physical therapy. There are x-rays demonstrating severe degenerative change. There are reflex changes. This mandates cervical spine MRI imaging to evaluate for compressive lesion not correctly identified and treated. . Plan: MRI of the cervical spine without contrast Daytime ujlfvbhgdfexfap28/30/2024 Overview (12/31/2023): Patient has daytime hypersomnolence, snoring, and reports potential apneic episodes. In addition to this his age and body habitus, also rise significant concern for YASMANI. He completed sleep studyyesterday (ordered by another provider). PLAN - Follow up with the ordering provider regarding PSG study Avjcgpwuv90/30/2024 Overview (12/31/2023): Patient has chronic complaints of intermittent imbalance, mainly associated with getting up from a seated position (though this does not happen every time he gets up). MRI brain in 2019 was unremarkable, as was the cervical MRI in 2020. He does have a history of cerumen impaction, which is recurrent, and certainly could play into a vestibular component. Due to concerns with changes in his symptoms we did repeat brain MRI 08/21/23 which is unremakarkable. Orthos positive today. PLAN: - MRI results reviewed with the patient/ today - Recomended slow position changes and liberalization of salt and water (he does have edema so I advised he also discuss this with PCP) - Could also consider referral to VT, though today he feels overall dizziness has improved. Qrqhaahxkqz66/30/0919Svnnsxibduplvr33/30/2024Neuropathy of left radial nerve 12/31/2023 Family History Medical HistoryRelationNameCommentsCancerFatherCancerMotherRelationNameStatus CommentsFatherMother Social History Tobacco UseTypesPacks/DayYears UsedDateSmoking Tobacco: Never Tobacco Cessation:Counseling Given: Not Answered Alcohol UseStandard Drinks/WeekCommentsNever0 (1 standard drink = 0.6 oz pure alcohol)Sex and Gender InformationValueDate RecordedSex Assigned at BirthNot on fileLegal OddLuvy59/ 7:08 PM EDTGender IdentityNot on fileSexual OrientationNot on file Last Filed Vital Signs Vital SignReadingTime TakenCommentsBlood Jqpeiety190/7402 2:35 PM EST Apvgj060510/05/2024 2:35 PM ESTTemperature--Respiratory Rate--Oxygen Saturation-- Inhaled Oxygen Concentration--Zovnxk363 kg (238 lb)10/05/2024 2:35 PM ESTHeight 180.3 cm (5' 11 )01/30/2024 2:28 PM EDTBody Mass Index33.19001/30/2024 2:28 PM EDT Plan of Treatment Not on file Insurance Care Teams Team MemberRelationshipSpecialtyStart DateEnd Erich Key DO PCP - GeneralInternal Medicine01/30/24 Jeannette Khanna NP Nurse HrzsekkfarrjIatisgbtz22/4/24 Vince Cherry DO [address] [facility] [address] [place] [address] Referring StydewaqpMbeformba88/4/24
--- OUTSIDE RECORDS SUMMARY | 2025-07-19 00:10 | XMS_ITS | Clinical Summary ---
Author Organization [facility] Address [address] [place] [address] Phone Care Team Providers Care Urban Designer Name Role Phone Erich Key DO Primary Care Provider [phone] Medications MedicationSigDispense QuantityRefillsLast FilledStart DateEnd DateStatus amLODIPine (Norvasc) 10 mg tablet Take 1 tablet (10 mg) by mouth once daily.06/17/2023ctive carvedilol (Coreg) 6.25 mg tablet Take 1 tablet (6.25 mg) by mouth 2 times a day with meals.03/19/2023ctive cyclobenzaprine (Flexeril) 5 mg tablet Take 1 tablet (5 mg) by mouth once daily at bedtime.03/29/2023ctive Advair HFA 115-21 mcg/actuation inhaler Inhale 2 puffs 2 times a day.06/18/2023ctive fluticasone (Flonase) 50 mcg/actuation nasal spray Administer 2 sprays into each nostril once daily.10/11/2022ctive Lantus Solostar U-100 Insulin 100 unit/mL (3 mL) pen INJECT 20 UNITS SUBCUTANEOUSLY EVERY DAY AT VXEPKJDJY23/13/2023ctive lisinopril 20 mg tablet Take 1 tablet (20 mg) by mouth once daily.04/07/2023ctive metFORMIN (Glucophage) 1,000 mg tablet Take 1 tablet (1,000 mg) by mouth once daily with a meal.06/09/2023ctive oxybutynin XL (Ditropan-XL) 10 mg 24 hr tablet Take 1 tablet (10 mg) by mouth once daily.10/26/2022ctive potassium chloride CR 10 mEq ER tablet Take 1 tablet (10 mEq) by mouth once daily.06/23/2023ctive tamsulosin (Flomax) 0.4 mg 24 hr capsule Take 1 capsule (0.4 mg) by mouth once daily in the evening.04/07/2023ctive tiZANidine (Zanaflex) 2 mg tablet Take 1 tablet (2 mg) by mouth every 6 hours if needed.07/04/2023ctive torsemide (Demadex) 10 mg tablet Take 1 tablet (10 mg) by mouth once daily.06/17/2023ctive acetaminophen (Tylenol) 325 mg tablet Take by mouth every 6 hours if needed for mild pain (1 - 3).Active aspirin 81 mg EC tablet Take 1 tablet (81 mg) by mouth once daily.Active tiotropium (Spiriva) [address] 1 capsule (18 mcg) into inhaler and inhale once daily.Active budesonide-formoteroL (Symbicort) 160-4.5 mcg/actuation inhaler Inhale 2 puffs 2 times a day. Rinse mouth with water after use to reduce aftertaste and incidence of candidiasis. Do not swallow.Active cholecalciferol (Vitamin D3) 5,000 Units tablet Take by mouth once daily.Active Active Problems ProblemNoted DateDiagnosed DateEssential btjqvseifayf77/14/2023Mixed appxxtesyydtku11/14/2023 Social History Tobacco UseTypesPacks/DayYears UsedDateSmoking Tobacco: Never AssessedSex and Gender InformationValueDate RecordedSex Assigned at BirthNot on fileLegal Sex Male09/06/2022 7:29 AM ESTGender IdentityNot on fileSexual OrientationNot on file Last Filed Vital Signs Vital SignReadingTime TakenCommentsBlood Ichlcohm491/7207 12:48 PM EDT Sbgsy525603/11/2023 12:48 PM EDTTemperature--Respiratory Rate--Oxygen Saturation-- Inhaled Oxygen Concentration--Fxzluh875 kg (250 lb 2 oz)03/11/2023 12:48 PM EDT Jjxqpt624.9 cm (6')03/11/2023 12:48 PM EDTBody Mass Index33.9203/11/2023 12:48 PM EDT Plan of Treatment Health MaintenanceDue DateLast DoneCommentsLipid Panel1938Medicare Annual Wellness Visit (AWV)1938DTaP/Tdap/Td Vaccines (1 - Tdap)1960 Pneumococcal Vaccine (1 of 1 - PCV)1988Zoster Vaccines (1 of 2)1988 RSV High Risk: (Elderly (60+) or Population) (1 - 1-dose 75+ series) 2013Influenza Vaccine (#1)5COVID-19 Vaccine (1 - 2024- season) 2025HIB VaccinesAged OutNo longer eligible based on patient's age to complete this topicHPV VaccinesAged OutNo longer eligible based on patient's age to complete this topicHepatitis A VaccinesAged OutNo longer eligible based on patient's age to complete this topicHepatitis B VaccinesAged OutNo longer eligible based on patient's age to complete this topicIPV VaccinesAged OutNo longer eligible based on patient's age to complete this topicMeningococcal VaccineAged OutNo longer eligible based on patient's age to complete this topic Rotavirus VaccinesAged OutNo longer eligible based on patient's age to complete this topic Insurance Care Teams Team MemberRelationshipSpecialtyStart DateEnd Date Erich Key DO [facility]11/12/22
--- OUTSIDE RECORDS SUMMARY | 2025-07-19 00:11 | XMS_ITS | CCD ---
Author Organization [facility] Care Team Providers Care Perianesthesia Nurse Name Role Phone ERICH ALEJANDRO Primary Care Physician DO Erich Alejandro Primary Care Provider MD Javier Murray Admit Provider MD Randolph Velasquez Attending Provider [phone] Erich Alejandro Unavailable JAVON, DR GORMAN Admitting [...] Primary Care Provider Jailyn Sepulveda NP Unavailable Jose Cherry DOrubiramana Unavailable JAILYN SEPULVEDA Attending Unavailable JAILYN SEPULVEDA Attending Unavailable JAILYN SEPULVEDA Attending Unavailable Erich Alejandro DO Primary Care Provider Terri DAUGHERTY, Javier Claros Admit Provider [phone] Mateusz Arellano MD Other Provider Harris DAUGHERTY, Angelo Jason Other Provider Wets Caraballo MD Attending Provider Harris DAUGHERTY, Angelo Jason Attending Provider INPATIENT, TELENEUROLOGY Consulting Unavail able Erich Alejandro DO Primary Care Provider Terri DAUGHERTY, Javier Claros Admit Provider Mateusz Arellano MD Other Provider Angelo Iglesias MD Other Provider [place] Caraballo MD Attending Provider [phone] Angelo Iglesias MD Attending Provider West Caraballo MD Referring Provider Erich Alejandro DO Primary Care Provider Angelo Iglesias MD Attending Provider Erich Alejandro DO Primary Care Provider Staci Burnette MD Attending Provider [phone] Erich Alejandro DO Attending Provider Carlos A BAEZ Attending Unavailable Carlos A BAEZ Attending Unavailable Sobeida eMdina Attending Unavailable Carlos A BAEZ Attending Unavailable Javon CRISTINA Erich Primary Care Provider Javon Erich Attending Provider [phone] Staci Burnette MD Attending Provider [phone] Gracia Krishna Attending Provider Javon CRISTINA Erich Primary Care Provider Javon Erich Attending Provider [phone] Angelo Iglesias Admitting Angelo Hernandez Attending Lily Alejandro Erich Primary Care Unavailable Angelo Iglesias Attending [place] Referring Unavailab Erich Alonso Primary Care Unavailable Angelo Iglesias Admitting UnavailWest Vasquez Attending Unavailab Javier Trinidad Admitting Unavailable Mateusz Arellano Consulting Unavailable Erich Alejandro Primary Care Unavailable Angelo Iglesias Consulting Angelo Hernandez MD Attending Provider [place] Caraballo MD Referring Provider Allergies Allergy ClassificationReported Allergen(s)Allergy TypeDate of OnsetReaction(s) Facility (20 sources)Angiotensin Converting Enzyme (Shruti) Inhibitors; Translations: [Shruti Inhibitors]Allergy to ufjbevumk92-03-6702LmlxkIyimggnkePremier [facility] (20 sources)AcetaminophenDrug Qpgzxju51-02-0291XNIBIGffulgqinEast [facility] (1 source)AcetaminophenDrug AllergyAv[facility] Health [facility] (1 source)patient allergy list reviewed by nurse or physiciaPropensity to adverse imczwipjw08-07-8514Cmgmzgb:[employer] Other (1 source)Acetaminophen; Translations: [Tylenol][facility]ergyKe[facility] Medications Current Medications MedicationDrug Class(es)DatesSig (Normalized)Sig (Original)acetaminophen 325 mg oral tablet (20 sources)Start: 95-87-3515jfww 2 tablets by mouth every six hours as needed for painacetaminophen 325 mg Tab 650 mg = 2 tab(s), Oral, q6hr, PRN pain, Refills(s) 0 Start Date: 09/10/22 Status: OrderedStart: 09-08-2022 End: 57-36-8942kkkv 1-3 tablets by mouth every six hours as needed for pain Acetaminophen 325 mg Tablet Discontinued 650 MG PO Every 6 hours as needed for Pain Scale 1 - 3 or fever 0 September 08, 2022 1:00am February 20, 2024 2:42pm Start: 09-08-2022 End: 96-50-6047qqnn 650 mg by mouth every six hoursAcetaminophen Discontinued 650 MG PO Every 6 hours 0 September 08, 2022 1:00am February 20, 2024 2:42pmtake 1- 2 tablets by mouth every eight hours as neededAcetaminophen 325 MG Oral Tablet TAKE 1 TO 2 TABLETS EVERY 8 HOURS NEEDED. Quantity: 0 Refills: 0 Ordered: 12-Nov-2022 DO Activetake 2 tablets by mouth every eight hours as needed for painAcetaminophen 325 MG 2 tablets Orally every 8 hours as needed for pain/fever Activealbuterol 0.83 mg/ml inhalation solution (16 sources)beta2-Adrenergic AgonistStart: 58-84-5713orts 2.5 mg by inhalation every four hoursalbuterol 0.083% Inh Idalia 3 mL 2.5 mg, 3 mL, NEB, q4hr Shortness of breath or wheezing, Refill(s) 0 Start Date: 09/10/22 Status: OrderedAlbuterol Sulfate (2.5 MG/3ML) 0.083% 3 mL as needed Inhalation every 6 hrs Not-Taking ascorbic acid 500 mg oral tablet (20 sources)Vitamin CStart: 50-32-0236FAKZHLPD ACID PO 500 mg 04/15/2024 Active Start: 60-97-6243xikfilrz acid 500 mg Start Date: 04/15/24 Status: Ordered Repeat number: 1Start: 31-55-2248gskipcuu acid 500 mg Start Date: 04/15/24 Status: OrderedStart: 47-83-8310uwrp 1 tablet by mouth once dailyAscorbic Acid (Vitamin C) 500 mg tablet,chewable Active 500 MG PO Daily February 20, 2024 12:00am Comp lies with drug therapyaspirin 81 mg delayed release oral tablet (20 sources)Platelet Aggregation Inhibitor, Nonsteroidal Anti-inflammatory Drug Start: 83-54-5820ubni 1 tablet by mouth once dailyaspirin 81 mg Oral EC Tab 81 mg = 1 tab(s), Oral, Daily, Refills(s) 0 Start Date: 09/10/22 Status: Ordered Repeat number: 1Start: 78-73-0879hvfz 1 tablet by mouth every twenty-four hours Aspirin 81 81 MG 1 tablet Orally Once a day Jan, ActiveStart: 02-19-2018 End: 50-59-5690jwcs 1 tablet by mouth once dailyAspirin 81 mg Tablet Discontinued 81 MG PO Daily September 04, 2022 1:00am May 18, 2025 12:14 pmStart: 73-01-9677Jlkcd-Glucose Meter (Freestyle Lite Meter) kit (17 sources)Start: 28-99-1897Kpxce-Glucose Meter (Freestyle Lite Meter) kit Active 0 .Route January 08, 2024 11:00pm to check blood sugar dailyStart: 04-96-7726Tgour-Glucose Meter (Freestyle Lite Meter) kit Active 0 .Route 1 January 09, 2024 12:00am to check blood sugar dailycalcium carbonate 1250 mg chewable tablet (1 source)Start: 58-20-7827ttkc 1 tablet by mouth once dailyCalcium Carbonate 500 mg calcium (1,250 mg) tablet,chewable Active 500 MG PO Daily May 18, 2025 12:00am Complies with drug therapyCentrum Silver (1 source)Start: 77-70-8902Nhoheio Silver Oral, Daily Start Date: 12/11/24 Status: Ordered Repeat number: 1Centrum Silver 50+Men - (16 sources)Centrum Silver 50+Men - as directed Orally ActiveCholecalciferol (20 sources)Vitamin DStart: 25-69-3277QQFHROPCMREMCHL PO 10 mcg 04/15/2024 ActiveStart: 71-21-2630qcdhodoxksmtgzl 10 mcg Start Date: 04/15/24 Status: Ordered Repeat number: 1Start: 70-32-8479ywatjefknnaelho 10 mcg Start Date: 04/15/24 Status: OrderedStart: 00-88-2986onvh 1 tablet by mouth once daily Cholecalciferol (Vitamin D3) 10 mcg (400 unit) Tablet Active 10 MCG PO Daily September 04, 2022 1:00am Complies with drug therapytake 1 capsule by mouth every twenty-four hoursVitamin D3 25 MCG (1000 UT) 1 capsule Orally Once a day Active Vitamin D3 125 MCG (5000 UT) Oral Capsule TAKE DIRECTED. Quantity: 0 Refills: 0 Ordered: 11-Mar-2023 DO ActiveClotrimazole-Betameth & Zn Ox 1-0.05 & 20 % (12 sources)Clotrimazole-Betameth & Zn Ox 1-0.05 & 20 % as directed Externally Activecyclobenzaprine hydrochloride 5 mg oral tablet (20 sources)Muscle Relaxanttake 1 tablet by mouth every twenty-four hours Cyclobenzaprine HCl 5 MG 1 tablet at bedtime as needed Orally Once a day Active fluticasone propionate 0.05 mg/actuat metered dose nasal spray (20 sources)CorticosteroidStart: 14-22-9376duttmjyuxcb (Flonase) 50 MCG/ACT nasal spray Daily 11/05/2023 ActiveStart: 11-05-2023 End: 02-12-2502Vrrbwybcope Propionate 50 mcg/actuation spray,suspension Discontinued 2 SPRAY INTRANASAL Daily November 05, 2023 1:00am February 20, 2024 2:45pmStart: 09-04-2022 End: 02-90-5649Uvtxtzjbwcc Propionate (Flonase) 50 mcg/actuation [place],Suspension Discontinued 1 SPRAY INTRANASAL Daily as needed for Congestion September 04, 2022 1:00am September 08, 2022 10:19amtake 2 spray(s) nasal route once dailyFluticasone Propionate 50 MCG/ACT USE 2 SPRAYS IN EACH NOSTRIL ONCE DAILY for 90 Activetake 2 spray(s) nasal route once dailyFluticasone Propionate 50 MCG/ACT USE 2 SPRAYS IN EACH NOSTRIL ONCE DAILY for 90 Activetake 2 spray(s) nasal route once dailyFlonase 50 MCG/ACT SUSP SPRAY 2 SPRAYS INTO EACH NOSTRIL EVERY DAY Quantity: 0 Refills: 0 Ordered: 12-Nov-2022 DO ActiveFreeStyle Lite Test - (20 sources)FreeStyle Lite Test - TEST TWICE DAILY*E11.9* for 25 Activeglucagon (rdna) 1 mg injection (20 sources)Antihypoglycemic AgentGlucagon Emergency 1 MG/ML Injection Solution Reconstituted PRN for low Blood Glucose Quantity: 0 Refills: 0 Ordered: 12-Nov-2022 DO Activehyoscyamine sulfate 0.12 mg / methenamine 118 mg / methylene blue 10 mg / phenyl salicylate 36 mg /sodium phosphate, monobasic 40.8 mg oral capsule (1 source)Oxidation-Reduction AgentStart: 31-97-3187Qabpvr oral capsule 1 cap(s), Oral, Daily, 40 caplet(s), Refill(s) 1, [facility]/pharmacy #[id number], 180, cm, 0 04/07/25 10:35:00 EDT, Height/Length Dosing, 110.5, kg, 04/07/25 10:35:00 EDT, Weight Dosing Start Date: 04/07/25 Status: Ordered Quantity: 40.0 Unit: caplet(s) Repeat number: 2lisinopril 20 mg oral tablet (20 sources)Angiotensin Converting Enzyme InhibitorStart: 07-20-2024 End: 53-95-7035lslr 10 mg by mouth twice dailyLisinopril 20 mg tablet Active 10 MG PO Twice daily November 18, 2024 5:05pm Complies with drug therapyStart: 61-41-0284jwdrrmzhmu 20 mg Tab Refills(s) 0 Start Date: 01/29/24 Status: Ordered Repeat number: 1Start: 11-11-2023 End: 70-78-5863quta 1 tablet by mouth once dailyLisinopril 20 mg tablet Discontinued 0 .ROUTE .COMPLEX November 11, 2023 1:23pm July 20, 2024 5:55pm TAKE 1 TABLET BY MOUTH EVERY DAYStart: 04-07-2023 End: 09-96-8509knsm 1 tablet by mouth once dailyLisinopril 20 mg tablet Discontinued 20 MG PO Daily November 05, 2023 1:00am November 11, 2023 1:23pmStart: 09-19-2022 End: 71-08-6046exhf 1 tablet by mouth once dailylisinopril 20 mg Tab 20 mg = 1 tab(s), Oral, Daily, X 30 day(s), # 30 tab(s), Refills(s) 0, Pharmacy: [facility]/pharmacy #[id number], 180, cm, 08/07/21 10:07:00 EST, Height/Length Dosing, 110.8, kg, 08/07/21 10:07:00 EST, Weight Dosing Start Date: 09/19/22 Stop Date: 10/19/22 Status: OrderedStart: 09-08-2022 End: 91-92-5201knta 1 tablet by mouth once dailyLisinopril 10 mg Tablet Discontinued 10 MG PO Daily 0 September 08, 2022 1:00am November 05, 2023 12:25pm Start: 12-23-2020 End: 98-09-6010imiv 1 tablet by mouth once dailyLisinopril 20 mg Tablet Discontinued 20 MG PO Daily September 04, 2022 1:00am September 08, 2022 10:19am24 hr mirabegron 25 mg extended release oral tablet (20 sources)beta3-Adrenergic AgonistStart: 28-51-8291smrj 1 tablet by mouth once dailyMirabegron (Myrbetriq) 25 mg tablet extended release 24 hr Active 25 MG PO Daily April 23, 2025 12:00am Complies with drug therapyStart: 03-08-2025 take 1 tablet by mouth once dailyMyrbetriq 50 mg oral tablet, extended release 50 mg = 1 tab(s), Oral, Daily, # 90 tab(s), Refills(s) 3, Pharmacy: [facility]/pharmacy #[id number], 180, cm, 04/15/24 13:22:00 EDT, Height/Length Dosing, 108, kg, 04/15/24 13:22:00 EDT, Weight Dosing Start Date: 03/08/25 Status: Ordered Quantity: 90.0 Unit: tab(s) Repeat number: 4Start: 01-29-2024 End: 27-53-7369krco 1 tablet by mouth once dailyMirabegron 50 mg tablet extended release 24 hr Discontinued 50 MG PO Daily February 05, 2024 12:00am February 20, 2024 2:51ljIa-Niq-Yqthq-M5-Wbhcwes-Rtfniz (Centrum Silver Men) 349-40-372-300 mcg tablet (18 sources)Start: 07-11-4968fujm 1 tablet by mouth once daily Mv-Fnc-Vgccb-G8-Udcygir-Eweqtz (Centrum Silver Men) 323-35-519-300 mcg tablet Active 1 TAB PO DailyNovember 05, 2023 1:00am Complies with drug therapyStart: 83-34-7028ocbb 1 tablet by mouth once dailyStart: 98-07-8260vxal 1 tablet by mouth once aigkyJs-Dzq-Hofni-A0-Eqswpxe-Bfrxso (Centrum Silver Men) 753-51-893-300 mcg tablet Active 1 TAB PO DailyAs[facility] 20[facility] 12:00amStart: 87-94-1557gtvb 1 tablet by mouth once gdxjrGy-Gdh-Mftny-I5-Jarxprk-Cngduu (Centrum Silver Men) 282-47-910-300 mcg tablet Active 1 TAB PO DailyAshtabula [facility] 2023 1:00amoxybutynin chloride 5 mg oral tablet (20 sources)Cholinergic Muscarinic AntagonistStart: 78-91-1695dpgc 1 tablet by mouth at bedtimeoxybutynin 5 mg Tab 5 mg = 1 tab(s), Oral, Bedtime, Take 30 min prior to bedtime., # 30 tab(s), Refills(s) 11, Pharmacy: [facility]/pharmacy #[id number], 180, cm, 04/15/24 13:22:00 EDT, Height/Length Dosing, 108,kg, 04/15/24 13:22:00 EDT, Weight Dosing Start Date: 04/15/24 Status: OrderedStart: 09-04-2022 End: 36-34-9430ypgn 1 tablet by mouth at bedtimeOxybutynin Chloride 5 mg Tablet Discontinued 5 MG PO Bedtime September 04, 2022 1:00am September 08, 2022 10:19am Start: 08-07-2021 End: 14-06-4758amev 1 tablet by mouth once dailyOxybutynin Chloride 10 mg tablet extended release 24hr Discontinued 10 MG PO Daily September 04, 2022 1:00am February 20, 2024 2:48pmpotassium chloride 10 meq extended release oral tablet (20 sources)Start: 53-62-4938bcla 1 tablet by mouth once dailypotassium chloride CR (Klor-Con) 10 MEQ ER tablet Take 10 mEq by mouth Daily 07/02/2024 Active Start: 03-26-2024 End: 63-40-4870nici 1 tablet by mouth once dailyPotassium Chloride 10 mEq tablet extended release Active 0 .ROUTE .COMPLEX April 21, 2025 9:03pm TAKE 1 TABLET BY MOUTH EVERY DAY Complies with drug therapyStart: 11-05-2023 End: 80-74-1561oyxe 1 tablet by mouth once dailyPotassium Chloride 10 mEq tablet extended release Discontinued 10 MEQ PO Daily November 05, 2023 1:00am March 26, 2024 11:38amStart: 14-22-5565tllh 1 tablet by mouth every twenty-four hours Klor-Con 10 10 MEQ 1 Tablet Orally daily for 30 day(s) Sep, ActiveStart: 09-08-2022 End: 22-17-8737qsbp 1 tablet by mouth once dailyPotassium Chloride 15 mEq tablet,ER particles/crystals Discontinued 15 MEQ PO Daily September 1:00am November 05, 2023 12:26pmRisa-Bid Probiotic - (12 sources)[place]wyn-Bid Probiotic - as directed Orally ActiveSemaglutide (20 sources)Start: 74-64-6111ykcirt 0.25 mg by subcutaneous injection every week, then inject 0.5 mg by subcutaneous injection every weekSemaglutide (Ozempic) 0.25 mg or 0.5 mg (2 mg/3 mL) pen injector Active 0 .ROUTE .COMPLEX October 15, 2024 8:00am INJECT 0.25 MG SUBCUTANEOUSLY WEEKLY FOR 4 WEEKS, THEN 0.5 MG WEEKLY THEREAFTER Complies with drug therapyStart: 65-87-1616hgerpc 0.25 mg by subcutaneous injection every week, then inject 0.5 mg by subcutaneous injection every weekStart: 70-16-4461qpxwog 0.25 mg by subcutaneous injection every week, then inject 0.5 mg by subcutaneous injection every weekSemaglutide (Ozempic) 0.25 mg or 0.5 mg (2 mg/3 mL) pen injector Active 0 .ROUTE .COMPLEX October 15, 2024 8:00am INJECT 0.25 MG SUBCUTANEOUSLY WEEKLY FOR 4 WEEKS, THEN 0.5 MG WEEKLY THEREAFTERStart: 85-87-0981xaqtgp 0.25 mg by subcutaneous injection every week, then inject 0.5 mg by subcutaneous injection every week Semaglutide (Ozempic) 0.25 mg or 0.5 mg (2 mg/3 mL) pen injector Active 0 .ROUTE .COMPLEX October 15, 2024 7:00am INJECT 0.25 MG SUBCUTANEOUSLY WEEKLY FOR 4 WEEKS, THEN 0.5 MG WEEKLY THEREAFTERStart: 04-09-2024 End: 03-27-4848dumdpk 0.25 mg by subcutaneous injection every week, then inject 0.5 mg by subcutaneous injection every weekSemaglutide (Ozempic) 0.25 mg or 0.5 mg (2 mg/3 mL) pen injector Discontinued 0 SUBCUT every week April 09, 2024 12:00am October 15, 2024 8:00am 0.25mg SC for 4 weeks, then increase to 0.5mg weeklyStart: 04-09-2024 End: 55-80-0167beprff 0.25 mg by subcutaneous injection every week, then inject 0.5 mg by subcutaneous injection every weekSemaglutide (Ozempic) 0.25 mg or 0.5 mg (2 mg/3 mL) pen injector Discontinued 0 SUBCUT every week April 08, 2024 11:00pm October 15, 2024 7:00am 0.25mg SC for 4 weeks, then increase to 0.5mg weeklyStart: 41-79-9232hxreoz 0.25 mg by subcutaneous injection every week, then inject 0.5 mg by subcutaneous injection every weekSemaglutide (Ozempic) 0.25 mg or 0.5 mg (2 mg/3 mL) pen injector Active 0 SUBCUT every week 9 April 08, 2024 11:00pm 0.25mg SC for 4 weeks, then increase to 0.5mg weeklyStart: 74-17-7297mmlfcb 0.25 mg by subcutaneous injection every week, then inject 0.5 mg by subcutaneous injection every weekSemaglutide (Ozempic) 0.25 mg or 0.5 mg (2 mg/3 mL) pen injector Active 0 SUBCUT every week 9 April 09, 2024 12:00am 0.25mg SC for 4 weeks, then increase to 0.5mg weeklyOzempic (1 source)Start: 98-88-9799Wytapbh SubCutaneous Start Date: 12/11/24 Status: Ordered Repeat number: 1Semaglutide,0.25 or 0.5MG/DOS, 2 MG/3ML solution pen-injector (5 sources)Start: 27-03-4966Toueppuqsme,0.25 or 0.5MG/DOS, 2 MG/3ML solution pen-injector every week 04/09/2024 ActiveSymbicort 160/4.5 inhalation aerosol with adapter (5 sources)Start: 74-39-7172jdqt 2 puff(s) by inhalation twice dailySymbicort 160/4.5 inhalation aerosol with adapter 2 puff(s), Inhalation, BID, Refill(s) 0 Start Date: 09/10/22 Status: Orderedtiotropium 0.018 mg inhalation powder (20 sources)AnticholinergicStart: 69-00-2442qsud 1 capsule by inhalation once dailySpiriva HandiHaler 18 mcg inhalation capsule 18 mcg = 1 cap(s), Inhalation, Daily, Refills(s) 0 Start Date: 09/10/22 Status: OrderedStart: 46-11-6906ksnq 1 capsule by inhalation once dailySpiriva HandiHaler 18 mcg inhalation capsule 18 mcg = 1 cap(s), Inhalation, Daily, Refills(s) 0 Start Date: 09/10/22 Status: OrderedStart: 09-08-2022 End: 65-46-3830zhcz 1 capsule by inhalation once dailyTiotropium [place] (Spiriva With Handihaler) 18 mcg capsule, w/inhalation device Discontinued 1 CAP INHALATION Daily September 08, 2022 1:00am November 05, 2023 12:28pm puncture 1 cap using device; one dose = 2 inhalationstorsemide 10 mg oral tablet (20 sources)Loop DiureticStart: 62-10-5382fgcb 2 tablets by mouth once daily Torsemide 10 mg tablet Active 0 .ROUTE .COMPLEX 180 February 14, 2025 3:00pm TAKE 2 TABLETS BY MOUTH DAILY Complies with drug therapyStart: 11-05-2023 End: 92-43-2018iiha 2 tablets by mouth once dailyTorsemide 10 mg tablet Discontinued 20 MG PO Daily November 05, 2023 12:28pm October 14, 2024 5:25pm Start: 34-34-6678phqd 20 mg by mouth once dailyTorsemide Active 20 MG PO Daily November 05, 2023 12:28pmStart: 69-21-7237gwoi 5 mg by mouth once dailytorsemide (Demadex) 10 MG tablet Take 5 mg by mouth Daily 06/17/2023 ActiveStart: 09-08-2022 End: 86-80-2161nmck 1 tablet by mouth once dailyTorsemide 10 mg Tablet Discontinued 10 MG PO DAILY@0800 30 October 14, 2024 1:00am January 3:01pmTorsemide 10 MG 2 Orally daily Activetrospium chloride 20 mg oral tablet (1 source)Cholinergic Muscarinic AntagonistStart: 58-38-3642oyau 1 tablet by mouth at bedtimetrospium 20 mg oral tablet 20 mg = 1 tab(s), Oral, Bedtime, # 30 tab(s), Refills(s) 11, Pharmacy: [facility]/pharmacy #[id number], 180, cm, 04/15/24 13:22:00 EDT, Height/Length Dosing, 108, kg, 04/15/24 13:22:00 EDT, Weight Dosing Start Date: 12/11/24 Status: Ordered Quantity: 30.0 Unit: tab(s) Repeat number: 12 Vitamin D3 25 MCG (1000 UT) (20 sources)take 1 capsule by mouth once dailyVitamin D3 25 MCG (1000 UT) 1 capsule Orally Once a day Active Completed/Discontinued Medications MedicationDrug Class(es)DatesSig (Normalized)Sig (Original)albuterol 0.833 mg/ml / ipratropium bromide 0.167 mg/ml inhalation solution (19 sources)Anticholinergic, beta2-Adrenergic AgonistStart: 09-08-2022 End: 46-81-3977imey 1 mL by inhalation three times daily as needed for wheezing Ipratropium-Albuterol 0.5 mg-3 mg(2.5 mg base)/3 mL Solution For Nebulization Discontinued 3 ML INHALATION Three times daily as needed for wheezing 0 September 08, 2022 1:00am November 05, 2023 12:29pmamLODIPine 10 mg oral tablet (20 sources)Dihydropyridine Calcium Channel BlockerStart: 89-79-4136jaqq 5 mg by mouth twice dailyAmlodipine 10 mg tablet Active 5 MG PO Twice daily July 20, 2024 5:52pm On Hold: Until follow-up with your primary care physician Complies with drug therapyStart: 03-31-2024 End: 87-86-0057cvru 1 tablet by mouth once dailyAmlodipine 10 mg tablet Discontinued 0 .ROUTE .COMPLEX March 31, 2024 8:47am July 20, 2024 5:53pm TAKE 1 TABLET BY MOUTH EVERY DAYStart: 02-20-2024 End: 24-23-2950lqyj 5 mg by mouth once dailyAmlodipine 10 mg tablet Discontinued 5 MG PO Daily 0 February 20, 2024 2:43pm March 31, 2024 8:47amStart: 02-20-2024 End: 16-40-8186bjbe 5 mg by mouth once dailyAmlodipine Discontinued 5 MG PO Daily 0 February 20, 2024 2:43pm March 31, 2024 8:47amStart: 09-08-2022 End: 00-11-6179namv 1 tablet by mouth once dailyAmlodipine 10 mg Tablet Discontinued 10 MG PO Daily 0 September 08, 2022 1:00am February 20, 2024 2:55pm take 1 tablet by mouth once dailyNorvasc 5 MG Oral Tablet Take 1 tablet daily Quantity: 0 Refills: 0 Ordered: 11-Mar-2023 DO Activeamoxicillin 875 mg / clavulanate 125 mg oral tablet (19 sources)Penicillin-class AntibacterialStart: 09-08-2022 End: 01-66-1044ddtr 1 tablet by mouth twice dailyAmoxicillin-Pot Clavulanate 875-125 mg tablet Discontinued 1 TAB PO Twice daily 14 September 08, 2022 1:00am November 05, 2023 12:22pmazithromycin 250 mg oral tablet (3 sources)Macrolide AntimicrobialStart: 62-44-9587Vayckznpxmry 250 MG Oral Tablet Quantity: 6 Refills: 0 Ordered: 10-Jan-2023 DO Start : 10-Jan-2023 C ompleteStart: 09-61-4850Attdetgdpfis 250 MG as directed Orally daily for 5 days December, ActiveB-12 - up to 1000 mcg (20 sources)Start: 46-06-0477R-12 - up to 1000 mcg Jul, 1000 mcgStart: 75-91-0557W-12 - up to 1000 mcg Jun, 1000 mcgStart: 01-35-5344H-12 - up to 1000 mcg Mar, 1000 mcgStart: 79-08-6150Tbyws: 56-40-7794F-12 - up to 1000 mcg Jan, 1000 mcgStart: 63-49-0357Nrfle: 71-45-7725D-12 - up to 1000 mcg December, 1000 mcgStart: 11-86-6985Aqmrl: 38-73-1661X-12 - up to 1000 mcg Oct, 1000 mcgStart: 75-56-7976Vjzgc: 27-83-9300D-12 - up to 1000 mcg Oct, 1000 mcgStart: 12-27-9537Mfoyt: 29-28-3698C-12 - up to 1000 mcg Sep, 1000 mcgbetamethasone 0.5 mg/ml / clotrimazole 10 mg/ml topical cream (15 sources)Azole Antifungal, CorticosteroidStart: 05-29-2024 End: 53-67-7238Byfbrabajyum-Betamethasone 1-0.05 % cream Discontinued 1 APPLIC TOPICAL Twice daily 45 30 2023 12:00am May 18, 2025 12:39nl605 actuat budesonide 0.16 mg/actuat / formoterol fumarate 0.0045 mg/actuat metered dose inhaler (20 sources)Corticosteroid, beta2-Adrenergic AgonistStart: 09-08-2022 End: 51-07-9155Mvxlsybnki-Formoterol (Symbicort) 160-4.5 mcg/actuation HFA aerosol inhaler Discontinued 1 INH INHALATION Twice daily 10.2 September 08, 2022 1:00am November 05, 2023 12:28pmtake 2 puff(s) by mouth twice dailySymbicort 160- 4.5 MCG/ACT Inhalation Aerosol INHALE 2 PUFFS TWICE DAILY. RINSE MOUTH AFTER USE. Quantity: 3 Refills: 0 Ordered: 12-Nov-2022 DO Activetake 2 puff(s) by inhalation twice dailySymbicort 160-4.5 MCG/ACT 2 puffs Inhalation Twice a day Activecarboxymethylcellulose sodium 5 mg/ml ophthalmic solution (20 sources)Start: 11-05-2023 End: 15-90-2041Ezvefoxigwqpppomoanlvf Sodium 0.5 % dropperette Discontinued 1 DROPS OPHTHALMIC As Directed November 05, 2023 1:00am February 20, 2024 2:44pmStart: 11-05-2023 End: 46-94-6485Pczyubdotrcmbrqdoworrs Sodium Discontinued 1 DROPS OPHTHALMIC As Directed November 05, 2023 1:00am February 20, 2024 2:44pmStart: 11-05-2023 Carboxymethylcellulose Sodium Active 1 DROPS OPHTHALMIC As Directed November 05, 2023 1:00amRefresh Tears 0.5 % as directed Ophthalmic Activetake 1 drop(s) into the eye(s) four times dailyRefresh Tears 0.5 % Ophthalmic Solution INSTILL 1 DROP INTO BOTH EYES 4 TIMES DAILY. Quantity: 0 Refills: 0 Ordered: 12-Nov-2022 DO ActiveCarboxymethylcellulose Sodium 0.5 % dropperette (9 sources)Start: 11-05-2023 End: 88-90-1155Xrngfctgbrygjgewynankn Sodium 0.5 % dropperette Discontinued 1 DROPS OPHTHALMIC As Directed November 05, 2023 1:00am February 20, 2024 2:44pmStart: 11-05-2023 End: 84-57-3469Fuszdbzvceckxvtaqjibns Sodium 0.5 % dropperette Discontinued 1 DROPS OPHTHALMIC As Directed November 05, 2023 12:00am February 20, 2024 1:44pm carvedilol 6.25 mg oral tablet (20 sources)alpha-Adrenergic David, beta-Adrenergic BlockerStart: 11-05-2023 End: 16-64-5381utsi 1 tablet by mouth twice dailyCarvedilol 6.25 mg tablet Discontinued 6.25 MG PO Twice daily November 05, 2023 1:00am February 20, 2024 2:44pmStart: 14-80-1112ovyq 1 tablet by mouth twice daily at mealtimeCarvedilol 6.25 MG Oral Tablet TAKE 1 TABLET TWICE DAILY WITH MEALS. Quantity: 180 Refills: 1 Ordered: 17-Dec-2022 Cathleen Lopez MD Start : 17-Dec-2022 Active new start D/C Amlodipinecelecoxib 100 mg oral capsule (19 sources)Nonsteroidal Anti-inflammatory DrugStart: 09-04-2022 End: 69-83-9916vgbk 1 capsule by mouth twice dailyCelecoxib 100 mg Capsule Discontinued 100 MG PO Twice daily September 04, 2022 1:00am September 08, 2022 10:19amcephalexin 500 mg oral tablet (8 sources)Cephalosporin AntibacterialStart: 01-21-2025 End: 94-75-0886qvew 1 tablet by mouth three times dailyCephalexin 500 mg tablet Discontinued 500 MG PO Three times daily 14 01January 21, 2025 12:00am April 21, 2025 7:11amStart: 57-72-4019hqpm 1 capsule by mouth every eight hours Cephalexin 500 MG 1 capsule Orally tid for 14 days Sep, ActiveDermacinRx Therazole Rocky 1-0.05 & 20 % External Therapy Pack (5 sources)DermacinRx Therazole Rocky 1-0.05 & 20 % External Therapy Pack as directed Quantity: 0 Refills: 0Ordered: 12-Nov-2022 DO Activedoxycycline hyclate 100 mg oral tablet (19 sources)Tetracycline-class DrugStart: 09-08-2022 End: 83-90-5782tcjq 1 tablet by mouth every twelve hoursDoxycycline Hyclate 100 mg Tablet Discontinued 100 MG PO Q12H 10 5 September 08, 2022 1:00am November 05, 2023 12:22pmempagliflozin 10 mg oral tablet (20 sources)Sodium-Glucose Cotransporter 2 InhibitorStart: 02-05-2024 End: 31-90-6695wiil 1 tablet by mouth once dailyEmpagliflozin (Jardiance) 10 mg tablet Discontinued 10 MG PO Daily 90 90 February 05, 2024 12:00am April 07, 2024 10:41amferrous sulfate (11 sources)take 1 tablet by mouth once dailyFerrous Sulfate 325 (65 Fe) MG 1 tablet Orally Once a day Not-Takingtake 1 tablet by mouth every twenty-four hoursFerrous Sulfate 325 (65 Fe) MG 1 tablet Orally Once a day Not-Taking Fluticasone Propion-Salmeterol (20 sources)Corticosteroid, beta2-Adrenergic AgonistStart: 11-05-2023 End: 97-62-2964tvjk 1 puff(s) by inhalation twice dailyFluticasone Propion- Salmeterol (Advair Hfa) 115-21 mcg/actuation HFA aerosol inhaler Discontinued 2 PUFF INHALATION Twice daily November 05, 2023 12:00am February 20, 2024 1:45pmStart: 11-05-2023 End: 76-48-6881szsb 1 puff(s) by inhalation twice dailyFluticasone Propion- Salmeterol (Advair Hfa) 115-21 mcg/actuation HFA aerosol inhaler Discontinued 2 PUFF INHALATION Twice daily November 05, 2023 1:00am February 20, 2024 2:45pmStart: 83-51-0081uncx 1 puff(s) by inhalation twice dailyFluticasone Propion-Salmeterol (Advair Hfa) 115-21 mcg/actuation HFA aerosol inhaler Active 2 PUFF INHALATION Twice daily November 05, 2023 1:00amStart: 33-05-9580rpjw 2 puff(s) by inhalation twice dailyAdvair HFA 115-21 MCG/ACT 2 puffs Inhalation Twice a day Replaces Symbicort Oct, ActiveStart: 32-81-2734jnjo 2 puff(s) by inhalation every twelve hoursAdvair HFA 115-21 MCG/ACT Inhalation Aerosol INHALE 2 PUFFS AT 12 HOUR INTERVALS (MORNING AND EVENING). Quantity: 0 Refills: 0 Ordered: 12-Nov-2022 DO Activeglucose 0.4 mg/mg oral gel (19 sources)Start: 09-08-2022 End: 99-57-8930Dulqends (Glutose-15) 40 % Gel Discontinued 0.6 GM PO PRN as needed for Hypoglycemia 0 September 1:00am February 20, 2024 2:44pm12 hr guaiFENesin 600 mg extended release oral tablet (19 sources)Start: 09-08-2022 End: 28-07-9193ueqs 1 tablet by mouth twice daily as needed for cough, then take 1 tablet by mouth every twelve hours as needed for coughGuaifenesin (Mucinex) 600 mg Tablet Extended Release 12hr Discontinued 600 MG PO Twice daily as needed for cough 0 September 08, 2022 1:00am November 05, 2023 12:29pmhydroCHLOROthiazide 12.5 mg oral tablet (20 sources)Thiazide DiureticStart: 09-04-2022 End: 15-54-3610tpar 1 tablet by mouth once dailyHydrochlorothiazide 12.5 mg tablet Discontinued 12.5 MG PO Daily September 04, 2022 1:00am September 08, 2022 10:19amtake 1 tablet by mouth once daily in the morninghydroCHLOROthiazide (HYDRODiuril) 25 MG tablet Take 25 mg by mouth Daily 1 tablet in the morning Act iveHydrochlorothiazide-12.5 mg 12.5 MG (11 sources)Start: 00-80-3115xvjv 1 capsule by mouth once daily in the morning Hydrochlorothiazide-12.5 mg 12.5 MG 1 capsule in the morning Orally Once a day Jan, Not-TakingInsulin Aspart U-100 (Novolog Flexpen U-100 Insulin) 100 unit/mL (3 mL) Insulin Pen (20 sources)Start: 09-08-2022 End: 30-82-5246fhptjr 1 dose by subcutaneous injection once at mealtimeInsulin Aspart U-100 (Novolog Flexpen U-100 Insulin) 100 unit/mL (3 mL) Insulin Pen Discontinued 1 sliding scale dose SUBCUT 3X/Day with meals and bedtime 0 September 08, 2022 12:00am February 20, 2024 1:45pmStart: 09-08-2022 End: 84-22-3884aulqhy 5 [IU] by subcutaneous injection once before mealtime Insulin Aspart U-100 (Novolog Flexpen U-100 Insulin) 100 unit/mL (3 mL) Insulin Pen Discontinued 5 UNITS SUBCUT 3x/Day before meals 0 September 08, 2022 12:00am November 05, 2023 11:29amStart: 09-08-2022 End: 89-52-1449harkrb 1 dose by subcutaneous injection once at mealtimeInsulin Aspart U-100 (Novolog Flexpen U-100 Insulin) 100 unit/mL (3 mL) Insulin Pen Discontinued 1 sliding scale dose SUBCUT 3X/Day with meals and bedtime 0 September 08, 2022 1:00am February 20, 2024 2:45pmStart: 16-89-9586vntcwn 1 dose by subcutaneous injection once at mealtimeInsulin Aspart U-100 (Novolog Flexpen U- 100 Insulin) 100 unit/mL (3 mL) Insulin Pen Active 1 sliding scale dose SUBCUT 3X/Day with meals and bedtime 0 September 08, 2022 1:00amStart: 09-08-2022 End: 86-86-4891jpfswf 5 [IU] by subcutaneous injection once before mealtime Insulin Aspart U-100 (Novolog Flexpen U-100 Insulin) 100 unit/mL (3 mL) Insulin Pen Discontinued 5 UNITS SUBCUT 3x/Day before meals 0 September 08, 2022 1:00am November 05, 2023 12:29pmStart: 04-79-9114mwimmh 1 dose by subcutaneous injection once at mealtimeInsulin Aspart U-100 (Novolog Flexpen U-100 Insulin) 100 unit/mL (3 mL) Insulin Pen Active 1 sliding scale dose SUBCUT 3X/Day with meals and bedtime 0 September 08, 2022 12:00amStart: 82-67-9156cftruk 5 [IU] by subcutaneous injection once before mealtimeInsulin Aspart U-100 (Novolog Flexpen U-100 Insulin) 100 unit/mL (3 mL) Insulin Pen Active 5 UNITS SUBCUT 3x/Day before meals 0 September 08, 2022 12:00am3 ml insulin aspart, human 100 unt/ml pen injector (9 sources)Insulin AnalogStart: 85-18-9414TadhGWI FlexPen 100 units/mL injectable solution 5 unit(s), SubCutaneous, TIDAC, plus 150-199 3, 200-249 4, 250-299 7, 300-349 10, 350-399 12, 400-449 14, >450 20, Refills(s) 0 Start Date: 09/10/22 Status: OrderedStart: 09-08-2022 End: 77-67-1257kwunjt 1 dose by subcutaneous injection once at mealtimeInsulin Aspart U-100 (Novolog Flexpen U-100 Insulin) 100 unit/mL (3 mL) Insulin Pen Discontinued 1 sliding scale dose SUBCUT 3X/Day with meals and bedtime 0 September 08, 2022 1:00am February 20, 2024 2:45pmStart: 09-08-2022 End: 00-76-6050gwzymv 5 [IU] by subcutaneous injection once before mealtime Insulin Aspart U-100 (Novolog Flexpen U-100 Insulin) 100 unit/mL (3 mL) Insulin Pen Discontinued 5 UNITS SUBCUT 3x/Day before meals 0 September 08, 2022 1:00am November 05, 2023 12:29pm3 ml insulin glargine 100 unt/ml pen injector (20 sources)Insulin AnalogStart: 11-05-2023 End: 75-77-7417Kxcdxxs Glargine (Lantus Solostar U-100 Insulin) 100 unit/mL (3 mL) insulin pen Discontinued 20 UNIT SUBCUT Daily November 18, 2024 5:26pm November 18, 2024 5:28pmStart: 93-50-5786Hxvqjo Solostar Pen 100 units/mL subcutaneous solution 20 unit(s), SubCutaneous, Daily, Refills(s) 0 Start Date: 09/10/22 Status: Ordered Repeat number: 1Start: 09-08-2022 End: 59-35-5386Qrgdbxm Glargine (Lantus Solostar U-100 Insulin) 100 unit/mL (3 mL) Insulin Pen Discontinued 15 UNITS SUBCUT Daily 0 September 08, 2022 1:00am November 05, 2023 12:29pmLantus SoloStar 100 UNIT/ML 20 units Subcutaneous daily Activeketoconazole 20 mg/ml topical cream (1 source)Azole AntifungalStart: 56-75-0134Vsufaomcyzoi 2 % External Cream Quantity: 60 Refills: 0 Ordered: 07-Feb-2023 DO Start : 07-Feb-2023 Complete Lactobacillus Combination No.4 (Probiotic) 3 billion cell capsule (19 sources)Start: 09-08-2022 End: 14-34-8397xlaj 3 capsules by mouth once dailyLactobacillus Combination No.4 (Probiotic) 3 billion cell capsule Discontinued 3000 MMU CELLS PO Daily September 08, 2022 12:00am February 20, 2024 1:45pm administer with a mealStart: 09-08-2022 End: 22-40-8073yxal 3 capsules by mouth once dailyLactobacillus Combination No.4 (Probiotic) 3 billion cell capsule Discontinued 3000 MMU CELLS PO Daily September 08, 2022 1:00am February 20, 2024 2:45pm administer with a mealStart: 86-58-5936ryis 3 capsules by mouth once dailyLactobacillus Combination No.4 (Probiotic) 3 billion cell capsule Active 3000 MMU CELLS PO Daily 2022 1:00am administer with a mealStart: 88-54-8230ryfa 3 capsules by mouth once dailyLactobacillus Combination No.4 (Probiotic) 3 billion cell capsule Active 3000 MMU CELLS PO Daily 2022 12:00am administer with a mealmeloxicam 15 mg oral tablet (11 sources)Nonsteroidal Anti-inflammatory Drugtake 1 tablet by mouth every twenty-four hoursMeloxicam 15 MG 1 tablet Orally Once a day Not-TakingmetFORMIN hydrochloride 1000 mg oral tablet (20 sources)BiguanideStart: 12-23-2020 End: 98-41-2803jixw 1 tablet by mouth twice dailyMetformin 1,000 mg tablet Discontinued 1000 MG PO Twice daily September 04, 2022 1:00am February 05, 2024 11:25amtake 1 tablet by mouth every twelve hoursmetFORMIN HCl - 1000 MG Oral Tablet TAKE 1 TABLET EVERY 12 HOURS Quantity: 180 Refills: 0 Ordered: 1 02-Nov-2022 DO Activemupirocin 0.02 mg/mg topical ointment (20 sources)RNA Synthetase Inhibitor AntibacterialStart: 11-05-2023 End: 83-81-8209Zxlxwjwik 2 % ointment Discontinued 1 APPLIC TOPICAL Twice daily November 05, 2023 1:00am February 20, 2024 2:47pmMupirocin 2 % 1 application Externally Twice a day for 30 days ActiveMupirocin 2 % External Ointment APPLY SPARINGLY TO AFFECTED AREA(S) TWICE DAILY Quantity: 0 Refills: 0 Ordered: 12-Nov-2022 DO ActivePotassium Chloride 15 mEq tablet,ER particles/crystals (9 sources)Start: 09-08-2022 End: 79-58-6402tasw 1 tablet by mouth once dailyPotassium Chloride 15 mEq tablet,ER particles/crystals Discontinued 15 MEQ PO Daily September 1:00am November 05, 2023 12:26pmStart: 09-08-2022 End: 64-59-3163ihyw 1 tablet by mouth once dailyPotassium Chloride 15 mEq tablet,ER particles/crystals Discontinued 15 MEQ PO Daily September 12:00am November 05, 2023 11:26ampredniSONE 20 mg oral tablet (20 sources)Start: 12-14-2024 End: 76-95-7723mfev 1 tablet by mouth twice daily, then take 1 tablet by mouth once dailyPrednisone 20 mg tablet Discontinued 0 PO As Directed 16 06December 14, 2024 12:00am April 23, 2025 11:01am 1 tablet PO bid w/ food x 5 days then 1 tablet qd w/ food x 5 days.Start: 09-08-2022 End: 61-21-7114hoss 1 tablet by mouth twice daily, then take 1 tablet by mouth once daily, then take 0.5 tablet bymouth once dailyPrednisone 10 mg tablet Discontinued 10 MG PO As Directed September 08, 2022 1:00am November 05, 2023 12:29pm Take 1 tablet twice a day for 5 days then 1 tablet daily for 5 days then half a tablet dailytamsulosin hydrochloride 0.4 mg oral capsule (20 sources)alpha-Adrenergic BlockerStart: 10-26-2023 End: 05-96-1260hysf 1 capsule by mouth once daily in the eveningTamsulosin 0.4 mg capsule Discontinued 0 .ROUTE .COMPLEX November 18, 2024 5:04pm May 12:15pm TAKE 1 CAPSULE BY MOUTH EVERY EVENINGStart: 05-08-2021 End: 98-32-2781azbz 1 capsule by mouth once dailyTamsulosin 0.4 mg capsule Discontinued 0.4 MG PO Daily September 04, 2022 1:00am October 2644:55pm tiZANidine 2 mg oral tablet (20 sources)Central alpha-2 Adrenergic AgonistStart: 35-14-5117cqVLLharni 2 mg Tab Refills(s) 0 Start Date: 01/29/24 Status: Ordered Repeat number: 1Start: 12-13-2023 End: 13-11-4127bxeo 0.5-1 tablets by mouth once daily at bedtimeTizanidine 2 mg tablet Discontinued 0 .ROUTE .COMPLEX December 16, 2024 1:33pm May 18, 2025 12:15pm TAKE 1/2 TO 1 TABLET BY MOUTH EVERY DAY AT BEDTIMEStart: 07-04-2023 End: 57-82-2155pazu 1 tablet by mouth once daily at bedtimeTizanidine 2 mg tablet Discontinued 2 MG PO Daily at bedtime November 05, 2023 1:00am December 13, 2023 1:56pmtriamcinolone acetonide 0.001 mg/mg topical ointment (6 sources)CorticosteroidStart: 12-14-2024 End: 88-13-9946Rjlhkhkhpgcer Acetonide 0.1 % ointment Discontinued 1 APPLIC TOPICAL Twice daily 454 December 12:00am May 18, 2025 12:15pm Start: 18-79-6659Qodopfsniofst Acetonide 0.1 % ointment Active 1 APPLIC TOPICAL Twice daily 454 December 14, 2024 12:00am Problems Active Problems Problem ClassificationProblemDateDocumented DateEpisodic/ChronicAbdominal pain (20 sources)Abdominal pain; Translations: [Unspecified abdominal pain] Resolved: 70-86-2314EyqbyijzRnrlc and unspecified renal failure (19 sources)Acute kidney failure, unspecified; Translations: [Acute renal failure syndrome]Onset: 618134-26-1798GngcwjmdBhkpx cerebrovascular disease (1 source)Acute cerebrovascular diseaseOnset: 31-22-8555Gzvmo posthemorrhagic anemia (20 sources)Acute posthemorrhagic anemia; Translations: [Acute posthemorrhagic anemia]EpisodicAdministrative/social admission (20 sources)Counseling procedure with explicit context; Translations: [Tobacco abuse counseling]97-76-5658UularakiXjowubz on above:Problem List clean-up per request of Phys. EHR CmteAortic; peripheral; and visceral artery aneurysms (20 sources)Aneurysm of left common iliac artery; Translations: [Aneurysm of iliac artery]ChronicChronic kidney disease (20 sources)Chronic kidney disease stage 3A ; Translations: [Chronic kidney disease, Stage III (moderate)]94-08-3325BpxkuykFrdnwid kidney disease (4 sources)Chronic kidney disease; Translations: [Chronic kidney disease, stage 3a]Onset: 23-21-0502Xbmnvuw obstructive pulmonary disease and bronchiectasis (20 sources)Chronic obstructive lung disease; Translations: [Chronic obstructive pulmonary disease, unspecified]Onset: 07-19-4086CpqvrqpAfplfte on above:Problem List clean-up per request of Phys. EHR CmteCoagulation and hemorrhagic disorders (20 sources)Thrombocytopenic disorder; Translations: [Thrombocytopenia, unspecified]80-42-4816QvbjbjmHffglbebvcyoz of surgical procedures or medical care (1 source)Infection following a procedure, other surgical site, initial encounterEpisodicConditions associated with dizziness or vertigo (18 sources)Benign paroxysmal positional vertigo; Translations: [Benign paroxysmal vertigo, bilateral]Onset: 764038-76-1454EdticosjTqugvercyv heart failure; nonhypertensive (20 sources)Diastolic heart failure; Translations: [Unspecified diastolic (congestive) heart failure]Onset: 332347-57-0270UkfbkjmGmdutxs on above: Problem List clean-up per request of Phys. EHR CmteEcho: LVEF 65%, LVH, normal RV size/function, no valve defect - 3Deficiency and other anemia (6 sources)Anemia due to blood fusq32-50-7472TkevbxnHsayhxpcve and other anemia (20 sources)Anemia due to chronic blood loss; Translations: [Iron deficiency anemia secondary to blood loss (chronic)]ChronicDeficiency and other anemia (13 sources)Pancytopenia; Translations: [Other pancytopenia]08-09-7971Dyagfpj Deficiency and other anemia (19 sources)Other pancytopenia; Translations: [Other pancytopenia]Onset: 127263-56-7825LfxjbhpJyduspnfec and other anemia (20 sources)Pernicious anemia; Translations: [Vitamin B12 deficiency anemia due to intrinsic factor deficiency]21-93-7822GotjkkakBcsprglocj and other anemia (20 sources)Vitamin B12 deficiency anemia due to intrinsic factor deficiency; Translations: [Pernicious anemia]Onset: 71-59-5609AmydtvvvIdrefwzsmg and other anemia (17 sources)Anemia; Translations: [Anemia, unspecified]41-67-1912Kwujosks Diabetes mellitus with complications (20 sources)Type 2 diabetes mellitus; Translations: [Type 2 diabetes mellitus with hyperglycemia]Onset: 79-93-9029QgvykaoIrcccihv mellitus without complication (20 sources)Type 2 diabetes mellitus without complication; Translations: [Type 2 diabetes mellitus without complications]Onset: 27-87-5595UytxtttMpvworo on above:Problem List clean-up per request of Phys. EHR CmteDisorders of lipid metabolism (20 sources)Mixed hyperlipidemia; Translations: [Mixed hyperlipidemia]Onset: 584990-12-2873KotfmqeCxjmxmeqwnuvcd and diverticulitis (20 sources)Diverticulosis of colon; Translations: [Diverticulosis of large intestine without perforation or abscess without bleeding]Onset: 07-03-2018 84-99-7013VfuyubaCftzgdbba hypertension (20 sources)Essential hypertension; Translations: [Essential (primary) hypertension]Onset: 08-09-9953AvjpusvTxuypgq on above:Problem List clean-up per request of Phys. EHR CmteFever of unknown origin (3 sources)Fever, unspecified; Translations: [FEVER UNSPECIFIED]Onset: 83-72-9984IqlfpzgfHxhdirqn of upper limb (20 sources)Closed fracture of surgical neck of humerus; Translations: [Closed fracture of humerus]Onset: 707307-74-2514AtahlcpvXdigznhhcmyxs symptoms and ill-defined conditions (13 sources)Urge incontinence; Translations: [Urge incontinence of urine]Onset: 63-66-2496JxrayvlZufeozjtasdto symptoms and ill-defined conditions (20 sources)Increased frequency of urination; Translations: [Micturition frequency and polyuria]Onset: 01-29-2024 Resolved: 887373-41-4858GubuoloySdtseoy on above:Problem List clean-up per request of Phys. EHR CmteHeadache; including migraine (6 sources)Headache; Translations: [Headache, unspecified]EpisodicHeart valve disorders (3 sources)Aortic valve stenosis; Translations: [Nonrheumatic aortic (valve) stenosis]54-69-7893QnolisbEoljezkfxrl of prostate (20 sources)Benign prostatic hypertrophy with outflow obstruction; Translations: [Lower urinary tract symptoms due to benign prostatic hypertrophy]Onset: 442606-60-1000BhctygxPgdopzfpwcea with complications and secondary hypertension (2 sources)Hypertensive heart disease with heart failure; Translations: [Hypertensive heart and chronic kidneydisease]Onset: 50-02-7296Berbudq Immunizations and screening for infectious disease (6 sources)Vaccination given; Translations: [Encounter for immunization]Episodic Inflammatory conditions of male genital organs (1 source)Acute prostatitisEpisodicMalaise and fatigue (20 sources)Asthenia; Translations: [Other malaise]Onset: EpisodicComment on above:Problem List clean-up per request of Phys. EHR Cmte Miscellaneous mental health disorders (20 sources)Occipital headache; Translations: [Occipital headache]Chronic Nutritional deficiencies (20 sources)Vitamin D deficiency; Translations: [Vitamin D deficiency, unspecified]Onset: 52-02-9310UozxgeeKgtztqpwycj deficiencies (6 sources)Deficiency of other specified B group vitamins; Translations: [Other B-complex deficiencies]45-77-2730SjadhwbzAizay aftercare (20 sources)Long-term current use of insulin; Translations: [termite technician (current) use of insulin]EpisodicOther aftercare (20 sources)H/O: high risk medication; Translations: [Other extermination inspector (current) drug therapy]EpisodicOther aftercare (1 source)Other nursing home (current) drug therapy; Translations: [OTH ALF CURRENT DRUG THERAPY]Onset: 29-74-6208IjphwyoxEzqgh aftercare (1 source)termite technician (current) use of aspirin; Translations: [ALF CURRENT USE OF ASPIRIN]Onset: 33-05-9314EqtyomzrWzbjb aftercare (1 source)custodial (current) use of oral hypoglycemic drugs; Translations: [RECYCLABLE MATERIALS DISTRIBUTOR USE ORAL HYPOGLYCEMIC DX]Onset: 32-96-1811PefkkxzkHpwwe aftercare (5 sources)Post-discharge follow-up; Translations: [Other follow-up examination] EpisodicOther aftercare (3 sources)termite technician (current) use of insulinEpisodicOther aftercare (6 sources)Long-term current use of drug therapy; Translations: [Other nursing home (current) drug therapy]EpisodicOther connective tissue disease (20 sources)Other symptoms and signs involving the nervous system; Translations: [Suspected sleep apnea]EpisodicOther connective tissue disease (1 source)Achilles tendinitis, right legEpisodicOther connective tissue disease (7 sources)Other symptoms and signs involving the musculoskeletal system; Translations: [Weakness of both lower extremities]14-49-2187FnlrhmklHwsdr diseases of bladder and urethra (3 sources)Detrusor overactivity; Translations: [Overactive bladder]Onset: 13-57-9119ZqlebiuTmfza diseases of bladder and urethra (3 sources)Overactive qqzxdis09-78-8779ThlugsrZrwsf diseases of veins and lymphatics (20 sources)Peripheral venous insufficiency; Translations: [Venous insufficiency (chronic) (peripheral)]EpisodicOther diseases of veins and lymphatics (19 sources)Venous insufficiency (chronic) (peripheral); Translations: [Venous (peripheral) insufficiency, unspecified]EpisodicOther diseases of veins and lymphatics (20 sources)Venous insufficiency of leg; Translations: [Venous insufficiency (chronic) (peripheral)]13-12-8946AdxvxjjqUwwxx ear and sense organ disorders (20 sources)Impacted cerumen; Translations: [Impacted cerumen, right ear]Onset: 10-16-2018 Resolved: 53-37-7205LdyauxwnLdlki gastrointestinal disorders (20 sources)Flatulence, eructation and gas pain; Translations: [Abdominal distension (gaseous)]EpisodicOther gastrointestinal disorders (10 sources)Diarrhea; Translations: [Diarrhea, unspecified]29-11-7702Ahdhjjlr Other hematologic conditions (20 sources)Raised cardiac enzyme or marker; Translations: [Other specified abnormalities of plasma proteins]03-27-6067VaggjgsnZbakvdz on above:Problem List clean-up per request of Phys. EHR CmteOther hematologic conditions (5 sources)Other specified abnormalities of plasma proteins; Translations: [Other abnormal blood chemistry]Onset: 986227-70-7087HkpvkzggTvuxa injuries and conditions due to external causes (20 sources)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, left arm, subsequent encounter; Translations: [Injury ofradial nerve at upper arm level, left arm, subsequent encounter]EpisodicOther injuries and conditions due to external causes (6 sources)History of fall; Translations: [History of falling]EpisodicOther lower respiratory disease (19 sources)Computed tomography result abnormal; Translations: [Other nonspecific abnormal finding of lung field]44-51-5248AykdyimcAbfwiri on above: Problem List clean-up per request of Phys. EHR CmteOther lower respiratory disease (20 sources)Dyspnea; Translations: [Shortness of breath]EpisodicOther lower respiratory disease (1 source)Hypoxemia; Translations: [HYPOXEMIA]Onset: 95-66-5388RgiorunaRiexv lower respiratory disease (2 sources)Shortness of breath; Translations: [SHORTNESS OF BREATH]Onset: 65-99-8958WcviareoEwhzj lower respiratory disease (4 sources)Dyspnea on exertion; Translations: [Shortness of breath]EpisodicOther lower respiratory disease (1 source)Other nonspecific abnormal finding of lung fieldEpisodicOther nervous system disorders (6 sources)Polyneuropathy; Translations: [Polyneuropathy, unspecified]Onset: 91-79-360995340412-00-3616OcrgqiiIeefl nervous system disorders (6 sources)Left radial neuropathy; Translations: [Lesion of radial nerve, left upper limb]Onset: 717836-45-3525ShpeotqEmezr nervous system disorders (20 sources)Unsteadiness on feet; Translations: [Unsteady]EpisodicOther nervous system disorders (6 sources)Abnormal gait; Translations: [Unsteadiness on feet]EpisodicOther nervous system disorders (20 sources)General unsteadiness; Translations: [Unsteadiness on feet]11-06-2023 EpisodicOther nervous system disorders (16 sources)Impairment of balance; Translations: [Other abnormalities of gait and mobility]Onset: 892888-95-6248OtigzoxtOmrtq non-epithelial cancer of skin (20 sources)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; Translations: [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, including shoulder]Onset: 47-80-5946MiaqkrdhHchpl nutritional; endocrine; and metabolic disorders (12 sources)Simple obesity ; Translations: [Other obesity due to excess calories] Resolved: 151751-51-4604RtypsanJbxtb nutritional; endocrine; and metabolic disorders (20 sources)Obese class I; Translations: [Body mass index (BMI) 34.0-34.9, adult]Onset: 80-38-3420DpfnuojTtxdt nutritional; endocrine; and metabolic disorders (20 sources)Obesity; Translations: [Obesity, unspecified]67-86-1691CtmgndfFjmtr skin disorders (5 sources)Vesicular eczema; Translations: [Dyshidrosis [pompholyx]]12-14-2024 EpisodicOther skin disorders (1 source)Dyshidrosis [pompholyx]; Translations: [Dyshidrosis]89-94-9307Orhbtfex Pneumonia (except that caused by tuberculosis or sexually transmitted disease) (20 sources)Pneumonia; Translations: [Pneumonia, unspecified organism]Onset: 37-00-8687KrcswjdbHctlqtc on above:Problem List clean-up per request of Phys. EHR CmteResidual codes; unclassified (20 sources)Obstructive sleep apnea syndrome; Translations: [Obstructive sleep apnea (adult) (pediatric)]49-64-0186CzzxqxnPanlnogt codes; unclassified (20 sources)Obstructive sleep apnea (adult) (pediatric); Translations: [Obstructive sleep apnea (adult)(pediatric)]Onset: hronic Residual codes; unclassified (12 sources)Daytime somnolence; Translations: [Other hypersomnia]Onset: 920499-29-8075TisidktGalgbktp codes; unclassified (1 source)Disorientated; Translations: [Disorientation, unspecified]Onset: 68-17-3872AivhsegqKamhyeil codes; unclassified (1 source)Edema; Translations: [Edema, unspecified]Onset: 32-24-9333Koyyhjiw Residual codes; unclassified (6 sources)Heibzvxa39-82-1966PzqmlvehMtfqqzrs codes; unclassified (6 sources)Dependent otrdr65-82-1865ImkwcgarPbyovwpe codes; unclassified (19 sources)Tobacco user; Translations: [Tobacco use]26-26-7064QisrmijlKapjdff on above:Problem List clean-up per request of Phys. EHR CmteResidual codes; unclassified (2 sources)Edema of lower extremity; Translations: [Edema]EpisodicResidual codes; unclassified (1 source)Pain, unspecified; Translations: [Pain, unspecified]Onset: 10-11-2024 EpisodicRespiratory failure; insufficiency; arrest (adult) (20 sources)Acute respiratory failure; Translations: [Acute respiratory failure with hypoxia]46-89-0467DjawkqvzXdfzpdn on above:Problem List clean-up per request of Phys. EHR CmteShock (18 sources)Hypovolemic shock; Translations: [Hypovolemic shock]Onset: 569986-90-4820VwrjdfcuKsit and subcutaneous tissue infections (20 sources)Carbuncle of buttock; Translations: [Carbuncle of buttock]Episodic Spondylosis; intervertebral disc disorders; other back problems (20 sources)Lumbar spondylosis; Translations: [Spondylosis without myelopathy or radiculopathy, lumbar region]Onset: 898147-22-9981OzmvwobLpmfqfoqd- related disorders (20 sources)Nicotine dependence; Translations: [Nicotine dependence, cigarettes, uncomplicated]Onset: 87-84-2060LdewifjJyhycrl (18 sources)Syncope; Translations: [Syncope and collapse]Onset: 10-09-2024 92-84-6813NjoxkbsbWiwhwtmlwgrf (6 sources)Asymptomatic microscopic nfzqwvuts54-82-5558Yqfanscobcyu (6 sources)Injury of radial nerve at upper arm -16-0080Ijqihjpqimtl (1 source)CONTACT W/AND (SUSP) EXPOS COVID-19; Translations: [CONTACT W/AND (SUSP) EXPOS COVID-19]Onset: 09-06-2022 Past or Other Problems Problem ClassificationProblemDateDocumented DateEpisodic/ChronicDeficiency and other anemia (4 sources)Iron deficiency anemia, unspecified; Translations: [IRON DEFICIENCY ANEMIA UNSPECIFIED]Onset: 83-09-0699RieeunhqJdhktao (6 sources)Candidiasis of skin and nails; Translations: [Candidiasis of skin and nail] Resolved: 51-17-7742HdnxxiqcXqnpbbauiptyd gastroenteritis (17 sources)Gastroenteritis; Translations: [Noninfective gastroenteritis and colitis, unspecified]Onset: 799173-50-0133TjuripleJrbgn acquired deformities (6 sources)Spondylolysis of cervical spine; Translations: [Spondylolysis, cervical region]Onset: 399900-47-0261UlbdkyvwTgqcs connective tissue disease (6 sources)Bilateral weakness of upper limbs; Translations: [Other symptoms and signs involving the musculoskeletal system]Onset: 011995-39-7247Ffatigge Other ear and sense organ disorders (6 sources)Cellulitis of right external ear; Translations: [Cellulitis of right external ear] Resolved: 71-98-1369WmznzwisCfoyp gastrointestinal disorders (6 sources)H/O: gastrointestinal disease; Translations: [Personal history of other diseases of the digestive system] Resolved: 43-90-6988SkqusvomEfoft gastrointestinal disorders (6 sources)Altered bowel function; Translations: [Change in bowel habit] Resolved: 94-23-3429QclkeyrgTdxrf gastrointestinal disorders (7 sources)Diarrhea, unspecified; Translations: [Diarrhea]Onset: 10-09-2024 15-64-5206WltixmjdOjznx nervous system disorders (6 sources)Ataxia; Translations: [Ataxia, unspecified]Onset: 12-31-2023 76-65-4746UzwaetnlJdnwn nervous system disorders (6 sources)Paresthesia; Translations: [Paresthesia of skin]Onset: 12-31-2023 12-89-5859PthrookfFnpuk screening for suspected conditions (not mental disorders or infectious disease) (6 sources)Disorder of cardiovascular system; 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]Onset: 30-05-3992VmfgqszyMlzazpeg codes; unclassified (6 sources)Reduced libido; Translations: [Decreased libido]Onset: 07-03-2018 EpisodicResidual codes; unclassified (6 sources)Confusional state; Translations: [Disorientation, unspecified]Onset: 918434-64-6376JoaktzrqRxngltcag and history of mental health and substance abuse codes (12 sources)Ex-smoker; Translations: [Personal history of tobacco use]Onset: 54-00-8696NmkxdbjeXkmjkdq on above:quit smoking in 2019;Septicemia (except in labor) (18 sources)Sepsis, unspecified organism; Translations: [Sepsis]Onset: 209792-45-9719BtlldxmlLgmmwcpkady; intervertebral disc disorders; other back problems (6 sources)Backache; Translations: [Unspecified backache]Onset: 07-03-2018 EpisodicUnclassified (18 sources)Abdominal aortic aneurysm, without rupture, unspecified; Translations: [Abdominal aortic aneurysm, without rupture, unspecified] Results Test NameValueInterpretationReference RangeFacilityAlbumin [Mass/volume] in Serum or Plasma by Bromocresol green (BCG) dye binding methoOrdered By: Angelo Hurst on 94-92-1836Jfzmfwr BCG dye [Mass/Vol]4.2 g/dL3.5-5.7FFulton County Health CenterComprehensive Metabolic Panelon 05-90-4817Brnqdxs [Mass/Vol]4.2 g/dLNormal3.5-5.7ThTeton Valley Hospital Physician GroupComment on above:Performed By: #### GLULS #### Point of Care testing ,Creatinine Clr Calc Zkzbisqy13.58NormNemours Children's Hospital Physician GroupComment on above:Performed By: #### GLULS #### Point of Care testing ,GFR/1.73 sq M.predicted MDRD (S/P/Bld) [Vol rate/Area]54.506 mL/min/{1.73_m2} NormalThe [facility] Physician GroupComment on above:Performed By: #### GLULS #### Point of Care testing ,Comprehensive Metabolic PanelOrdered By: Angelo Iglesias on 04-26-2025 Albumin/Globulin [Mass ratio]2.2 {ratio}[facility] HospitalComment on above:Performed By: #### GLULS #### Point of Care testing ,ALP [Catalytic activity/Vol]86 U/T26-918WfcmszsfgLicking Memorial Hospital Comment on above:Performed By: #### GLULS #### Point of Care testing ,ALT [Catalytic activity/Vol]13 U/L7-52[facility] HospitalComment on above:Performed By: #### GLULS #### Point of Care testing ,Anion gap [Moles/Vol]9.2 mmol/L6.0-15.0[facility] HospitalComment on above:Performed By: #### GLULS #### Point of Care testing ,AST [Catalytic activity/Vol]13 U/J97-33MukytcvmrLicking Memorial HospitalComment on above:Performed By: #### GLULS #### Point of Care testing ,Bilirubin [Mass/Vol]0.5 mg/dL0.3-1.0[facility] HospitalComment on above:Performed By: #### GLULS #### Point of Care testing ,Calcium [Mass/Vol]8.9 mg/dL8.6-10.3FFulton County Health CenterComment on above:Performed By: #### GLULS #### Point of Care testing ,Chloride [Moles/Vol]101 mmol/Z37-176QxaiwevyvLicking Memorial HospitalComment on above:Performed By: #### GLULS #### Point of Care testing ,CO2 [Moles/Vol]31.0 mmol/L21.0-31.0[facility] HospitalComment on above:Performed By: #### GLULS #### Point of Care testing ,Creatinine [Mass/Vol]1.28 mg/dL0.70-1.30[facility] Comment on above:Performed By: #### GLULS #### Point of Care testing ,Globulin (S) [Mass/Vol]1.9 g/dLLicking Memorial HospitalComment on above:Performed By: #### GLULS #### Point of Care testing ,Glucose [Mass/Vol]145 mg/fQFmax22-615HscqfcneeLicking Memorial HospitalComment on above:Result Comment: Random Glucose Reference Range is dependent on time and content of last meal. Glucose of more than 200 mg/dL in a nonstressed, ambulatory subject supports the diagnosis of Diabetes Mellitus. ADA recommended reference rangePerformed By: #### GLULS #### Point of Care testing ,ADA recommended reference rangeRandom Glucose Reference Range is dependent on time and content of last meal. Glucose of more than 200 mg/dL in a nonstressed, ambulatory subject supports the diagnosisof Diabetes Mellitus.Potassium [Moles/Vol]4.2 mmol/L3.5-5.1FFulton County Health CenterComment on above: Performed By: #### GLULS #### Point of Care testing ,Protein [Mass/Vol]6.1 g/dLLow6.4-8.9[facility] HospitalComment on above:Performed By: #### GLULS #### Point of Care testing ,Sodium [Moles/Vol]137 mmol/C620-663GudzvslhvLicking Memorial HospitalComment on above:Performed By: #### GLULS #### Point of Care testing ,Urea nitrogen [Mass/Vol]14 mg/dL7-25[facility] HospitalComment on above:Performed By: #### GLULS #### Point of Care testing ,FerritinOrdered By: Angelo Iglesias on 47-99-0399Nxztvbaq [Mass/Vol]47.2 ng/mL 23.9-336.2FFulton County Health CenterComment on above:Performed By: #### GLULS #### Point of Care testing ,Folate [Mass/volume] in Serum or PlasmaOrdered By: Angelo Iglesias on 04-26-2025 Folate [Mass/Vol]42.0 ng/mL>5.9[facility] HospitalComment on above:Folate reference range: >5.9 ng/mlThe WHO technical consultation on folate and vitamin e90rbrtpfzpdrgx has determined that folate concentrations lessthan 4 ng/ml are considered deficient.Glomerular filtration rate [Volume Rate/Area] in Serum, Plasma or Blood by CreatinineOrdered By: Angelo Iglesias on 04-26-2025 Glomerular filtration rate [Volume Rate/Area] in Serum, Plasma or Blood by Lbsecmkqij16.506 mL/MinLicking Memorial HospitalIron and TIBC Profileon 04-26-2025% Iron Nmvhhtrmlx46.5 %Zqsejy46-51Rdr [facility] Physician GroupComment on above:Performed By: #### GLULS #### Point of Care testing ,Total Iron Binding Eidwyplo536 ug/xKXzfhdr962-100Bqz [facility] Comment on above:Performed By: #### GLULS #### Point of Care testing ,Iron and TIBC ProfileOrdered By: Angelo Iglesias on 56-53-0348Dijq [Mass/Vol]86 ug/aU89-023UvlhnjwklLicking Memorial HospitalComment on above:Performed By: #### GLULS #### Point of Care testing ,Transferrin [Mass/Vol]232 mg/sZ734-921UwzkyarmmLicking Memorial HospitalComment on above:Performed By: #### GLULS #### Point of Care testing ,LDH Lactate Dehydrogenaseon 20-36-7951BIS Lactate Ojmhqudnufkzp310 U/LNormal 140-271The [facility] Physician GroupComment on above:Performed By: #### GLULS #### Point of Care testing ,Lactate dehydrogenase [Enzymatic activity/volume] in Serum or Plasma by Lactate to pyOrdered By: Angelo Iglesias on 98-32-0564TLY Lactate to pyruvate reaction [Catalytic activity/Vol]140 U/Y059-791NlcwvefldLicking Memorial Hospital Leukocytes [#/volume] corrected for nucleated erythrocytes in Blood by Automated counOrdered By: Angelo Iglesias on 84-36-2296DPI corrected for nucl RBC Auto (Bld) [#/Vol]4.0 10*3/uLLow4.1-10.5FFulton County Health CenterMCHC Auto (RBC) [Mass/Vol]Ordered By: Angelo Iglesias on 41-64-3206AVZF (RBC) [Mass/Vol] 34.6 g/dL32.5-35.6FFulton County Health CenterNo Panel InformationOrdered By: Angelo Iglesias on 97-15-5844Uiancjbs Creatinine Clearance (Chem52.58 [facility] HospitalNucleated erythrocytes [Presence] in Blood by Automated countOrdered By: Angelo Iglesias on 46-82-8581Idmzegoau RBC Auto Ql (Bld)0.1 /100{WBC}0-0.5FFulton County Health CenterPlatelet adequacy [Presence] in Blood by Light microscopyOrdered By: Angelo Iglesias on 04-26-2025 Platelets LM Ql (Bld)DecreasedNormBlanchard Valley Health System [facility] Valley HospitalPlatelet morphology finding [Identifier] in BloodOrdered By: Angelo Iglesias on 04-26-2025 Platelet morphology finding Nom (Bld)NormalChillicothe Hospitalcan and CBCOrdered By: Angelo Iglesias on 48-62-2149Garwpexkw (Bld) [#/Vol]0.0 10*3/uL0.0-0.2FFulton County Health CenterComment on above: Performed By: #### GLULS #### Point of Care testing ,Basophils/100 WBC (Bld)0.7 %.[facility] HospitalComment on above: Performed By: #### GLULS #### Point of Care testing ,Eosinophils (Bld) [#/Vol]0.0 10*3/uL0.0-0.45[facility] Comment on above:Performed By: #### GLULS #### Point of Care testing ,Eosinophils/100 WBC (Bld)0.6 %.[facility] HospitalComment on above:Performed By: #### GLULS #### Point of Care testing ,Erythrocyte distribution width (RBC) [Ratio]13.4 %12.0-14.8[facility] HospitalComment on above:Performed By: #### GLULS #### Point of Care testing ,Hematocrit (Bld) [Volume fraction]38.7 %Low38.8-50.0[facility] HospitalComment on above:Performed By: #### GLULS #### Point of Care testing ,Hemoglobin (Bld) [Mass/Vol]13.4 g/dL13.0-17.0[facility] Comment on above:Performed By: #### GLULS #### Point of Care testing ,Lymphocytes (Bld) [#/Vol]0.8 10*3/uLLow1.00-4.8[facility] HospitalComment on above:Performed By: #### GLULS #### Point of Care testing ,Lymphocytes/100 WBC (Bld)18.8 %.[facility] HospitalComment on above:Performed By: #### GLULS #### Point of Care testing ,MCH (RBC) [Entitic mass]33.8 pg27.5-35.2FFulton County Health Center Comment on above:Performed By: #### GLULS #### Point of Care testing ,MCV (RBC) [Entitic vol]97.9 fL83.5-101[facility] HospitalComment on above:Performed By: #### GLULS #### Point of Care testing ,Monocytes (Bld) [#/Vol]0.4 10*3/uL0.0-0.8[facility] Comment on above:Performed By: #### GLULS #### Point of Care testing ,Monocytes/100 WBC (Bld)10.7 %.[facility] HospitalComment on above:Performed By: #### GLULS #### Point of Care testing ,Neutrophils (Bld) [#/Vol]2.8 10*3/uL1.8-7.7FFulton County Health Center Comment on above:Performed By: #### GLULS #### Point of Care testing ,Neutrophils/100 WBC (Bld)69.2 %.[facility] HospitalComment on above:Performed By: #### GLULS #### Point of Care testing ,Platelet mean volume (Bld) [Entitic vol]7.9 fL6.6-10.1FFulton County Health CenterComment on above:Performed By: #### GLULS #### Point of Care testing ,Platelets (Bld) [#/Vol]100 10*3/zDLgm017-808DtvlvlprgLicking Memorial Hospital Comment on above:Performed By: #### GLULS #### Point of Care testing ,RBC (Bld) [#/Vol]3.95 10*6/uL3.90-5.60[facility] HospitalComment on above:Performed By: #### GLULS #### Point of Care testing ,RBC morphology finding Nom (Bld)NormalBlanchard Valley Health System [facility] Comment on above:Performed By: #### GLULS #### Point of Care testing ,WBC (Bld) [#/Vol]4.0 10*3/uLLow4.1-10.5FFulton County Health CenterComment on above:Performed By: #### GLULS #### Point of Care testing ,Scan and CBCon 57-25-6108Riic Corpuscular HGB Conc34.6 g/nFAjulww46.5-35.6The [facility] Physician GroupComment on above:Performed By: #### GLULS #### Point of Care testing ,NRBC%0.1 /100{WBC}Normal0-0.5[facility]ician [facility] HospitalComment on above: Performed By: #### GLULS #### Point of Care testing ,Platelet EstimateDecreasedNormalBaptist Health [facility] West Physician GroupComment on above:Performed By: #### GLULS #### Point of Care testing ,Platelet MorphologyNormalNormalBaptist Health Bethesda Hospital West Physician GroupComment on above:Result Comment: PERFORMED BY: [facility] [address] PATHOLOGIST SAW REPAIRER MICKEY CABRERA M.D.Performed By: #### GLULS #### Point of Care testing ,White Blood Count4.0 [CFU]/mLLow4.1-10.5The [facility] Physician GroupComment on above:Performed By: #### GLULS #### Point of Care testing ,Serum or plasma iron binding capacity measurement (mass/volume)Ordered By: angelina Iglesias on 63-90-9020Lwha binding capacity [Mass/Vol]325 ug/nM934-630 [facility] Hospitalerum or plasma iron saturation measurement (mass fraction)Ordered By: angelina Iglesias on 37-96-0468Rgni saturation [Mass fraction]26.5 %20-50[facility] HospitalVit. B12/Folate Profile Ordered By: angelina Iglesias on 43-58-7896Setgajslp (Vitamin B12) [Mass/Vol]1025 pg/gXSopx338-823PlgnphofeLicking Memorial HospitalComment on above:Performed By: #### GLULS #### Point of Care testing ,Vit. B12/Folate Profileon 72-99-8984Nlzpmu45.0 ng/mLNormal>5.9The [facility] Physician GroupComment on above:Result Comment: Folate reference range: >5.9 ng/ml The WHO technical consultation on folate and vitamin b12 deficiencies has determined that folate concentrations less than 4 ng/ml are considered deficient. PERFORMED BY: [facility] [address] [place] [address] PATHOLOGIST SAW REPAIRER MICKEY CABRERA M.D.Performed By: #### GLULS #### Point of Care testing ,Basophils Auto (Bld) [#/Vol]Ordered By: Erich Alejandro on 99-04-5226Uedslkdom (Bld) [#/Vol]0.0 10 3/uL0.0-0.1FFulton County Health CenterBasophils/100 WBC Auto (Bld)Ordered By: Erich Alejandro on 65-34-0945Ixtbtcozp/100 WBC (Bld)0.8 %0.2-2.0[facility] HospitalEosinophils/100 WBC Auto (Bld)Ordered By: Erich Alejandro on 31-24-4424Gtxplpwfhce/100 WBC (Bld)0.2 %Low0.9-7.0[facility] HospitalErythrocyte distribution width Auto (RBC) [Ratio]Ordered By: Erich Alejandro on 45-01-6657Hfywromhboe distribution width (RBC) [Ratio]12.8 %11.0-15.0[facility] HospitalGlobulin Calc (S) [Mass/Vol]Ordered By: Erich Alejandro on 36-45-2623Hjkugafn (S) [Mass/Vol]3.3 g/dLLicking Memorial HospitalGlomerular filtration rate (GFR) estimation in non- AmericanOrdered By: Erich Alejandro on 25-11-9561UZI/1.73 sq M.predicted among non-blacks MDRD (S/P/Bld) [Vol rate/Area]53 mL/min/{1.73_m2}Low>=60 mL/min/1.73m 2FFulton County Health CenterGlucose mean value [Mass/volume] in Blood Estimated from glycated hemoglobinOrdered By: Erich Alejandro on 82-66-9986Fjtigah glucose Estimated from glycated hemoglobin (Bld) [Mass/Vol]137 mg/dLLicking Memorial HospitalHematocrit Auto (Bld) [Volume fraction]Ordered By: Erich Alejandro on 71-57-2604Fswqxwaxom (Bld) [Volume fraction]39.1 %Low42.0-54.0 [facility] HospitalHemoglobin A1c percentageOrdered By: Erich Alejandro 99-78-4834VlB5v (Bld) [Mass fraction]6.4 %High4.5-6.2FFulton County Health CenterComment on above:ADA RECOMMENDED LIMIT 4.0 - 6.0ADA THERAPEUTIC TARGET < 7.0ACTION SUGGESTED> 7.0Hemoglobin [Mass/volume] in BloodOrdered By: Erich Alejandro on 02-91-8294Melrzndgoj (Bld) [Mass/Vol]13.3 g/dLLow14.0-18.0 [facility] HospitalLaboratory - Chemistry and Chemistry - challengeOrdered By: Erich Alejandro on 66-21-8985Tiijbxr [Mass/Vol]3.6 g/dL 3.4-5.0[facility] HospitalALP [Catalytic activity/Vol]99 U/L46-116 [facility] HospitalALT [Catalytic activity/Vol]24 U/L16-63 [facility] HospitalAST [Catalytic activity/Vol]10 U/RRtr68-29 [facility] HospitalBilirubin [Mass/Vol]0.4 mg/dL0.2-1.0[facility] HospitalCalcium [Mass/Vol]8.7 mg/dL8.5-10.1FFulton County Health CenterChloride [Moles/Vol]104 mmol/C98-842VrwfjosfhLicking Memorial HospitalCO2 [Moles/Vol]31.3 mmol/L21.0-32.0[facility] Creatinine [Mass/Vol]1.29 mg/dL0.70-1.30[facility] GFR/1.73 sq M.predicted MDRD (S/P/Bld) [Vol rate/Area]mL/min/{1.73_m2}>=60 mL/min/1.73m 2FFulton County Health CenterGlucose [Mass/Vol]157 mg/dLHigh 74-106L[facility] HospitalPotassium [Moles/Vol]4.3 mmol/L3.5-5.1 [facility] HospitalProtein [Mass/Vol]6.9 g/dL6.4-8.2FAvita Health System Galion Hospitalodium [Moles/Vol]138 mmol/E356-450LoecdinhhLicking Memorial HospitalUrea nitrogen [Mass/Vol]17.0 mg/dL7.0-18.0[facility] HospitalUrea nitrogen/Creatinine [Mass ratio]13.2 mg/mgLicking Memorial HospitalLaboratory - Hematology and Cell countsOrdered By: Erich Alejandro on 45-03-1238Uabukvyc granulocytes/100 WBC (Bld)0.4 %0.0-0.5FFulton County Health CenterLeukocytes [#/volume] corrected for nucleated erythrocytes in Blood by Automated counOrdered By: Erich Alejandro on 47-43-4158XZD corrected for nucl RBC Auto (Bld) [#/Vol]4.9 10 3/uL4.0-11.0[facility] Lymphocytes Auto (Bld) [#/Vol]Ordered By: Erich Alejandro on 88-22-0678Ecsvatrkrwh (Bld) [#/Vol]0.8 10 3/uLLow1.2-3.8[facility] Lymphocytes/100 WBC Auto (Bld)Ordered By: Erich Alejandro on 04-23-2025 Lymphocytes/100 WBC (Bld)16.0 %Low20.5-60.0[facility] CenterH Auto (RBC) [Entitic mass]Ordered By: Erich Alejandro on 05-16-6563CDS (RBC) [Entitic mass]33.8 pg25.9-34.0[facility] HospitalMCHC Auto (RBC) [Mass/Vol]Ordered By: Erich Alejandro on 15-78-6650SAKL (RBC) [Mass/Vol]34.0 g/dL 29.9-35.2FFulton County Health CenterMCV Auto (RBC) [Entitic vol]Ordered By: Erich Alejandro on 08-89-6614CKN (RBC) [Entitic vol]99.2 qXAvsx52.0-94.0 [facility] HospitalMonocytes Auto (Bld) [#/Vol]Ordered By: Erich Alejandro on 25-49-4591Zmhxdxdov (Bld) [#/Vol]0.5 10 3/uL0.3-0.8[facility] HospitalMonocytes/100 WBC Auto (Bld)Ordered By: Erich Alejandro on 98-19-1527Jwhjbecos/100 WBC (Bld)10.5 %1.7-12.0[facility] Neutrophils Auto (Bld) [#/Vol]Ordered By: Erich Alejandro on 24-49-5759Zxueffxhizl (Bld) [#/Vol]3.5 10 3/uL1.4-6.5FFulton County Health CenterNeutrophils/100 WBC Auto (Bld)Ordered By: Erich Alejandro on 00-00-0045Qcyusklvfcr/100 WBC (Bld) 72.1 %43.0-75.0[facility] HospitalNo Panel InformationOrdered By: Erich Alejandro on 01-85-5722Wagpwgcecwd # (Auto)0.0 10 3/uL0.0-0.7FFulton County Health CenterImmature Granulocyte # (Auto)0.02 10 3/uL0.00-0.03 [facility] HospitalPlatelet mean volume Auto (Bld) [Entitic vol] Ordered By: Erich Alejandro on 07-74-7642Zongbebk mean volume (Bld) [Entitic vol] 10.0 fL9.5-13.5FFulton County Health CenterPlatelets Auto (Bld) [#/Vol] Ordered By: Erich Alejandro on 43-78-3347Iaxujpmzj (Bld) [#/Vol]98 10 3/uLLow 150-450[facility] HospitalRBC Auto (Bld) [#/Vol]Ordered By: Erich Alejandro on 12-91-5460EAL (Bld) [#/Vol]3.94 10 6/uLLow4.70-6.10[facility] Hospitalerum or plasma albumin/globulin mass ratioOrdered By: Erich Alejandro on 06-22-6725Fhmbmii/Globulin [Mass ratio]1.1 {ratio}[facility] Hospitalerum or plasma anion gap determinationOrdered By: Erich Alejandro on 83-43-0343Cctsw gap [Moles/Vol]7.0 mmol/LFFulton County Health CenterAmbulatory Visit Summaryon 78-58-0125Bbgruodvrr Visit Summary Ambulatory Visit Summary JOSE L AMES :1940 Visit Date:04/07/2025 Ambulatory Visit Instructions Your Diagnosis OAB (overactive bladder) BPH with urinary obstruction Asymptomatic microscopic hematuria Your Care Team Attending Physician - LORRAINE DAUGHERTY, Carlos A Hamilton Primary Care Physician - ERICH ALEJANDRO DO This Is Your Medications List hyoscyamine/methena/mblue/phenylsal/sodbiphos (Uribel oral capsule) mirabegron (Myrbetriq 50 mg oral tablet, extended release) trospium (trospium 20 mg oral tablet) Contact prescribing physician if questions or concerns amlodipine (amLODIPine 10 mg Tab) ascorbic acid aspirin (aspirin 81 mg Oral EC Tab) betamethasone-clotrimazole topical (betamethasone-clotrimazole Top 0.05%-1% Crm 15 gram) cholecalciferol insulin [...] A BAEZ MD Where: [facility] [address], [address] [place] [address]- You Need to Schedule the Following Appointments Follow Up with Carlos A BAEZ MD, DONNAL When: Where: [address] [facility] [address] [place] [address]- Medications What How Much When Instructions New hyoscyamine/ methena/ mblue/ phenylsal/ sodbiphos (Uribel oral capsule) 1 Capsules By Mouth Every day Refills: 1 Pickup at [facility]/pharmacy #[id number] Unchanged mirabegron (Myrbetriq 50 mg oral tablet, [...] if questions or concerns Unchanged betamethasone-clotrimazole topical (betamethasone-clotrimazole Top 0.05%-1% Crm 15 gram) Topical 2 [...] mEq oral tablet, extended release) 1 Tablets ByMouth Every day Contact prescribing physician if questions or concerns Unchanged semaglutide (Ozempic) Subcutaneous Contact prescribing physician if questions or concerns Unchanged tizanidine (tiZANidine 2 mg Tab) Contact prescribing physician if questions or concerns Unchanged torsemide (torsemide 10 mg Tab) 1 Tablets By Mouth Every day Contact prescribing physician if questions or concerns Pharmacy Information [facility]/pharmacy #[id number]: [address], [place] [phone] Allergies No Known Allergies Problems Ongoing - [...] closed fracture Anemia, blood (more content not included)...[facility] Urology Office/Clinic Noteon 30-27-8916Rnxktrl Office/Clinic NoteUrology Office/Clinic Note Chief Complaint follow up HPI [...] with voice recognition artificial intelligence software, specifically [employer]ã [employer], [employer] and or [employer]. Substitutions may have occurred due to the inherent limitations of voice recognition and artificial intelligence software. 1. OAB (overactive bladder) (N32.81: Overactive bladder) PVR (cc) 01/29/24 - 04/15/24 - 0 12/11/24 - 0 Pt had drastically decreased coffee intake from 10-12 c daily, down to 1-2 c daily. Pt states he isdrinking more than 1-2 cups now but hasn't [...] overactivity of the bladder with especially urgency andfrequency and nocturia. He has tried several anticholinergics and is actually on a combination of abeta 3 agonist and anticholinergic and still has symptomatology. Will now try a medication like Uribel. He knows this can stain be due to the methylene blue. He should stop the trospium while taking the Uribel. I again gave him the bladder irritants sheet. This has been an overall difficult frustrating situation as even the new list of medications is nothelping his symptomatology. He is back drinking as much coffee as he wants because he tried to nearly discontinue it and the symptoms did not improve. Considering a second opinion at this point but will try the Uribel. Prescription sent. Tentative 4-month follow-up. Follow-up With When Contact Information Carlos A BAEZ MD, URL [address] [place] [address]- Additional Instructions: 4 mos Patient Education Overactive Bladder, Adult IAlisson, personally scribed for Dr. Baez on 04/07/2025 10:50:39. . Documentation recorded by the scribAlisson river, accurately reflects the services(s) I performed and [...] incontinence Urinary frequency Urinary (more content not included)...[facility] HospitalComment on above:Result Comment: Electronically Signed By: Carlos A BAEZ MD\.br\Date and Time Signed: 04/07/25 10:52 EDT\.br\Electronically Co-Signed By: Alisson Saeed.br\Date and Time Co-Signed: 04/07/25 10:50 RZGEbT0r HPLC (Bld) [Mass fraction]on 43-64-6485VlR3a (Bld) [Mass fraction]Hemoglobin A1c/Hemoglobin.total in Blood by HPLCLicking Memorial HospitalHbA1c (Bld) [Mass fraction]7.1 %[facility] HospitalBasophils/100 WBC Manual cnt (Bld)on 00-29-2931Zwmosgppu/100 WBC (Bld)Basophils/100 leukocytes in Blood by Manual countLow0.2-2.0[facility] HospitalBasophils/100 WBC (Bld)0.0 %Low0.2-2.0[facility] HospitalEosinophils/100 WBC Manual cnt (Bld)on 84-97-1615Fckypeqxclp/100 WBC (Bld)Eosinophils/100 leukocytes in Blood by Manual countLow0.9-7.0[facility] Eosinophils/100 WBC (Bld)0.0 %Low0.9-7.0[facility] Erythrocyte distribution width Auto (RBC) [Ratio]on 84-07-7439Fwefgrvlqoq distribution width (RBC) [Ratio]Erythrocyte distribution width [Ratio] by Automated count11.0-15.0[facility] HospitalErythrocyte distribution width (RBC) [Ratio]13.0 %11.0-15.0[facility] Estimated glomerular filtration rate (GFR) non- Americanon 12-17-2024 GFR/1.73 sq M.predicted among non-blacks MDRD (S/P/Bld) [Vol rate/Area]Estimated glomerular filtration rate (GFR) non- AmericanLow>=60 mL/min/1.73m 2 [facility] HospitalGFR/1.73 sq M.predicted among non-blacks MDRD (S/P/Bld) [Vol rate/Area]44 mL/min/{1.73_m2}Low>=60 mL/min/1.73m 2FFulton County Health CenterGlobulin Calc (S) [Mass/Vol]on 90-29-1161Ezolsdqb (S) [Mass/Vol]Serum globulin measurement by calculation (mass/volume)[facility] HospitalGlobulin (S) [Mass/Vol]2.8 g/dLLicking Memorial HospitalHematocrit Auto (Bld) [Volume fraction]on 80-15-6394Utqpcyrume (Bld) [Volume fraction]Hematocrit [Volume Fraction] of Blood by Automated countLow 42.0-54.0[facility] HospitalHematocrit (Bld) [Volume fraction]37.7 %Low42.0-54.0[facility] HospitalHemoglobin [Mass/volume] in Blood on 14-09-8358Ajlcndewcc (Bld) [Mass/Vol]Hemoglobin [Mass/volume] in BloodLow 14.0-18.0[facility] HospitalHemoglobin (Bld) [Mass/Vol]13.1 g/dL Low14.0-18.0[facility] HospitalLaboratory - Chemistry and Chemistry - challengeon 21-54-4017Qylrhhu [Mass/Vol]3.7 g/dL3.4-5.0[facility] HospitalALP [Catalytic activity/Vol]131 U/BGdyu46-181LvsfqvirpLicking Memorial HospitalALT [Catalytic activity/Vol]20 U/U61-46AnjecgwatLicking Memorial HospitalAST [Catalytic activity/Vol]13 U/QLpi34-32FlmmgfatfLicking Memorial HospitalBilirubin [Mass/Vol]0.4 mg/dL0.2-1.0[facility] HospitalCalcium [Mass/Vol]8.7 mg/dL8.5-10.1FFulton County Health Center Chloride [Moles/Vol]102 mmol/Z38-907UndxkjksvLicking Memorial HospitalCO2 [Moles/Vol]27.1 mmol/L21.0-32.0[facility] HospitalCreatinine [Mass/Vol]1.52 mg/dLHigh0.70-1.30[facility] HospitalGFR/1.73 sq M.predicted MDRD (S/P/Bld) [Vol rate/Area]53 mL/min/{1.73_m2}Low>=60 mL/min/1.73m 2FFulton County Health CenterGlucose [Mass/Vol]247 mg/dLHigh 74-106L[facility] HospitalPotassium [Moles/Vol]4.2 mmol/L3.5-5.1 [facility] HospitalProtein [Mass/Vol]6.5 g/dL6.4-8.2FAvita Health System Galion Hospitalodium [Moles/Vol]137 mmol/O705-930VhxqdvjfsLicking Memorial HospitalTSH Qn1.099 m[IU]/L0.358-3.740[facility] Urea nitrogen [Mass/Vol]21.0 mg/dLHigh7.0-18.0[facility] Urea nitrogen/Creatinine [Mass ratio]13.8 mg/mgLicking Memorial Hospital Laboratory - Hematology and Cell countson 20-21-1114Rkffawtppsh/100 WBC (Bld) 12.0 %Low20.5-60.0[facility] HospitalMonocytes/100 WBC (Bld)3.0 % 1.7-12.0[facility] HospitalLeukocytes [#/volume] corrected for nucleated erythrocytes in Blood by Automated counon 38-48-3113BAS corrected for nucl RBC Auto (Bld) [#/Vol]Leukocytes [#/volume] corrected for nucleated erythrocytes in Blood by Automated coun4.0-11.0[facility] WBC corrected for nucl RBC Auto (Bld) [#/Vol]5.1 10 3/uL4.0-11.0[facility] Auto (RBC) [Entitic mass]on 39-77-2943HKC (RBC) [Entitic mass]MCH [Entitic mass] by Automated drhgrQgao01.9-34.0[facility] Medical CenterH (RBC) [Entitic mass]34.6 onYvja95.9-34.0[facility] HospitalMCHC Auto (RBC) [Mass/Vol]on 74-36-7675IXXG (RBC) [Mass/Vol]MCHC [Mass/volume] by Automated count29.9-35.2FFulton County Health CenterMCHC (RBC) [Mass/Vol]34.7 g/dL29.9-35.2FFulton County Health CenterMCV Auto (RBC) [Entitic vol]on 91-15-3067CMB (RBC) [Entitic vol]MCV [Entitic volume] by Automated bkyhlKfnm48.0-94.0[facility] HospitalMCV (RBC) [Entitic vol]99.5 kVNjaf55.0-94.0[facility] HospitalNo Panel Informationon 25-06-9451Bpbkzlsx Basophils (Manual)0.00 10 3/uL 0.00-0.10[facility] HospitalEosinophils # (Manual)0.00 10 3/uL 0.00-0.70[facility] HospitalLymphocytes # (Manual)0.61 10 3/uLLow 1.20-3.80[facility] HospitalMonocytes # (Manual)0.15 10 3/uLLow 0.30-0.80[facility] Hospitalegmented Neutrophils # (Manual)4.33 10 3/uL1.4-6.5FFulton County Health CenterPlatelet mean volume Auto (Bld) [Entitic vol]on 63-50-3345Iddfikij mean volume (Bld) [Entitic vol]Platelet mean volume [Entitic volume] in Blood by Automated countLow9.5-13.5FFulton County Health CenterPlatelet mean volume (Bld) [Entitic vol]9.2 fLLow9.5-13.5FFulton County Health CenterPlatelets Auto (Bld) [#/Vol]on 36-66-5862Hdmrxmpwv (Bld) [#/Vol]Platelets [#/volume] in Blood by Automated tjzpyXcw040-272TyvhurjmkLicking Memorial HospitalPlatelets (Bld) [#/Vol]111 10 3/hXJpb632-397XmyimdnzxLicking Memorial HospitalRBC Auto (Bld) [#/Vol]on 88-49-2022ICC (Bld) [#/Vol] Erythrocytes [#/volume] in Blood by Automated countLow4.70-6.10[facility] HospitalRBC (Bld) [#/Vol]3.79 10 6/uLLow4.70-6.10[facility] Hospitalegmented neutrophils/100 WBC Manual cnt (Bld)on 45-96-4062Afykmyopy neutrophils/100 WBC (Bld)Manual blood segmented neutrophils/100 mwgoucclbrXqkd72.0-75.0[facility] Segmented neutrophils/100 WBC (Bld)85.0 %High43.0-75.0[facility] Hospitalerum or plasma albumin/globulin mass ratioon 44-60-7895Kqmkruk/Globulin [Mass ratio]Serum or plasma albumin/globulin mass ratioLicking Memorial HospitalAlbumin/Globulin [Mass ratio]1.3 {ratio}[facility] Hospitalerum or plasma anion gap determinationon 19-11-0709Nhvjy gap [Moles/Vol] Serum or plasma anion gap determinationLicking Memorial HospitalAnion gap [Moles/Vol]12.1 mmol/LFFulton County Health CenterAmbulatory Visit Summaryon 96-58-8350Mbhzkfbymt Visit SummaryAmbulatory Visit Summary JOSE L AMES :1940 Visit [...] 81 mg Oral EC Tab) betamethasone-clotrimazole topical (betamethasone-clotrimazole Top 0.05%-1% Crm 15 gram) cholecalciferol insulin [...] Carlos A [facility] Where: [facility] [address], [address] [place] [address]- Medications What How Much When Instructions New trospium (trospium 20 mg oral tablet) 1 Tablets By Mouth At bedtime Refills: 11 Pickup at [facility]/pharmacy #[id number] Unchanged amlodipine (amLODIPine 10 mg Tab) Contact prescribing physician if questions or concerns Unchanged ascorbic acid 500 Milligram Contact prescribing physician if questions or concerns Unchanged aspirin (aspirin 81 mg Oral EC Tab) 1 Tablets By Mouth Every day Contact prescribing physician if questions or concerns Unchanged betamethasone-clotrimazole topical (betamethasone-clotrimazole Top 0.05%-1% Crm 15 gram) Topical 2 [...] mEq oral tablet, extended release) 1 Tablets ByMouth Every day Contact prescribing physician if questions [...] physician if questions or concerns Pharmacy Information [facility]/pharmacy #[id number]: [address], [place] [phone] What How Much When Comments Stop Taking [...] you for choosing us for your care. [facility] HospitalUrology Office/Clinic Noteon 36-57-4741Hlzjpkp Office/Clinic NoteUrology Office/Clinic Note HPI Staff 84 year old [...] with voice recognition artificial intelligence software, specifically [employer]ã [employer], [employer] and or [employer]. Substitutions may have occurred due to the [...] SEs -f/u 3-4 mos w/ PVR Ordered: 23072 Measure Post Void residual urine and/or bladder capacity by US- non-imaging Urnls Dip Stick Auto w/o Microscopy POC 04263 2. 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, Sobeida X, FAM, URL Additional Instructions: 3- [...] Comments influenza virus va (more content not included)...NormalFisher Fairfield Medical CenterComment on above:Result Comment: Electronically Signed By: JEMAL Medina APRN, Sobeida June\.hussain\Date and Time Signed: 12/11/24 09:45 EDTBasophils Auto (Bld) [#/Vol]Ordered By: Erich Alejandro on 70-01-9351Eloytazkw (Bld) [#/Vol]Automated basophil count0.0-0.2FFulton County Health CenterBasophils/100 WBC Auto (Bld)Ordered By: Erich Alejandro on 71-28-1489Djcgjzaab/100 WBC (Bld)Automated basophil %.[facility] HospitalCT guided bone marrow bx/aspiron 14-67-7891IT guided bone marrow bx/aspirUNIVERSITY H[facility]ALS [place] [address] [place] Scan Report Signed Patient: Jose L Ames MR#: [id number] : 1940 Acct:[id number] Age/Sex: 84 / M ADM Date: 10/22/24 Loc: CT Room: Type: [facility] [place] [place] Attending Dr: Angelo Iglesias MD Copies to: [...] A Jones M.D.10/22/2024 12:44 PM Dictation Location: [place] [address] Transcribed By: [facility] 10/22/24 1244 Dictated By: Jorge A Jones MD 10/22/24 1243 Signed By: 10/22/24 1244NoWakeMed North Hospital Physician GroupComplete Blood Count Auto Diffon 98-49-8022Jivkgosnb (Bld) [#/Vol]0.0 10*3/uLNormal0.0-0.2The [facility] Physician GroupComment on above:Result Comment: PERFORMED BY: [place] [address] PATHOLOGIST SAW REPAIRER ALEX SALMERON M.D.Performed By: #### PTT, FIB-C, PT #### [place] [address] USABasophils/100 WBC (Bld)1.1 %Normal.The [facility] Physician GroupComment on above:Performed By: #### PTT, FIB-C, PT #### [place] [address] USAEosinophils (Bld) [#/Vol]0.0 10*3/uLNormal0.0-0.45The [facility] Physician GroupComment on above:Performed By: #### PTT, FIB-C, PT #### [place] [address] USAEosinophils/100 WBC (Bld)1.1 %Normal.The [facility] Physician GroupComment on above:Performed By: #### PTT, FIB-C, PT #### [place] [address] USAErythrocyte distribution width (RBC) [Ratio]13.6 %Normal 12.0-14.8The [facility] Physician GroupComment on above:Performed By: #### PTT, FIB-C, PT #### [place] [address] USAHematocrit (Bld) [Volume fraction]38.8 %Kcyblm37.8-50.0The [facility] Physician GroupComment on above:Performed By: #### PTT, FIB-C, PT #### [place] [address] USAHemoglobin (Bld) [Mass/Vol]13.4 g/mWSyrmta05.0-17.0The [facility] Physician GroupComment on above:Performed By: #### PTT, FIB-C, PT #### [place] [address] USALymphocytes (Bld) [#/Vol]0.5 10*3/uLLow1.00-4.8The [facility] Physician GroupComment on above:Performed By: #### PTT, FIB-C, PT #### [place] [address] USALymphocytes/100 WBC (Bld)15.2 %Normal.[facility] Physician GroupComment on above:Performed By: #### PTT, FIB-C, PT #### [place] [address] USAMCH (RBC) [Entitic mass]33.8 hqTdzqtu86.5-35.2The [facility] Physician GroupComment on above:Performed By: #### PTT, FIB-C, PT #### [place] [address] USAMCV (RBC) [Entitic vol]97.9 oTKohaqe52.5-101The [facility] Physician GroupComment on above:Performed By: #### PTT, FIB-C, PT #### [place] [address] USAMean Corpuscular HGB Conc34.5 g/rHTpkhlb11.5-35.6The [facility] Physician GroupComment on above:Performed By: #### PTT, FIB-C, PT #### [place] [address] [place] [address] USAMonocytes (Bld) [#/Vol]0.5 10*3/uLNormal0.0-0.8The [facility] Physician GroupComment on above:Performed By: #### PTT, FIB-C, PT #### [facility] [address] [place] [address] USAMonocytes/100 WBC (Bld)13.7 %Normal.The [facility] Physician GroupComment on above:Performed By: #### PTT, FIB-C, PT #### [facility] [address] [place] [address] USANeutrophils (Bld) [#/Vol]2.3 10*3/uLNormal1.8-7.7The [facility] Physician GroupComment on above:Performed By: #### PTT, FIB-C, PT #### [facility] [address] [place] [address] USANeutrophils/100 WBC (Bld)68.9 %Normal.The [facility] Physician GroupComment on above:Performed By: #### PTT, FIB-C, PT #### [facility] [address] [place] [address] USANRBC%0.1 /100{WBC}Normal0-0.5The [facility]ician Group Comment on above:Performed By: #### PTT, FIB-C, PT #### [facility] [address] [place] [address] USAPlatelet mean volume (Bld) [Entitic vol]8.2 fLNormal 6.6-10.1The [facility] Physician GroupComment on above:Performed By: #### PTT, FIB-C, PT #### [facility] [address] [place] [address] USAPlatelets (Bld) [#/Vol]117 10*3/fEHtw938-982Grn [facility] Physician GroupComment on above:Performed By: #### PTT, FIB-C, PT #### [facility] [address] [place] [address] USARBC (Bld) [#/Vol]3.96 10*6/uLNormal3.90-5.60The [facility] Physician GroupComment on above:Performed By: #### PTT, FIB-C, PT #### [facility] [address] [place] [address] USAWBC (Bld) [#/Vol]3.4 10*3/uLLow4.1-10.5The [facility] Physician GroupComment on above:Performed By: #### PTT, FIB-C, PT #### [facility] [address] [place] [id number] USAEosinophils Auto (Bld) [#/Vol]Ordered By: Erich Alejandro on 50-07-2355Udcpqxwxepp (Bld) [#/Vol]Automated eosinophil count0.0-0.45[facility] HospitalEosinophils/100 WBC Auto (Bld)Ordered By: Erich Alejandro on 13-49-4740Vvreocvsvqi/100 WBC (Bld)Automated eosinophil %.[facility] HospitalErythrocyte distribution width Auto (RBC) [Ratio]Ordered By: Erich Alejandro on 07-75-6193Mxrbukworqi distribution width (RBC) [Ratio] Erythrocyte distribution width [Ratio] by Automated count12.0-14.8[facility] HospitalHematocrit Auto (Bld) [Volume fraction]Ordered By: Erich Alejandro on 05-22-1257Ccppuucizw (Bld) [Volume fraction]Hematocrit [Volume Fraction] of Blood by Automated count38.8-50.0[facility] Hemoglobin [Mass/volume] in BloodOrdered By: Erich Alejandro on 10-22-2024 Hemoglobin (Bld) [Mass/Vol]Hemoglobin [Mass/volume] in Blood13.0-17.0[facility] HospitalINR in Platelet poor plasma by Coagulation assayOrdered By: Angelo Iglesias on 02-51-7274TDP Coag (PPP) [Relative time]INR in Platelet poor plasma by Coagulation assayLicking Memorial HospitalComment on above:INR Therapeutic Range A) Pre- and Peroperative OAT started two weeks before surgery. NOT HIP SURGERY: 1.5 - 2.5 HIP SURGERY: 2 - 3B) Primary and secondary prevention of venous THROMBOSIS: 2 - 3C) Active venous thrombosis, pulmonary embolismand prevention of recurrent venous thrombosis: 2 - 3D) Preve ntion of arterial thromboembolismincluding patients with mechanical heart valves: 3 - 4.5Leukocytes [#/volume] corrected for nucleated erythrocytes in Blood by Automated counOrdered By: Erich Alejandro on 39-00-6691FYS corrected for nucl RBC Auto (Bld) [#/Vol]Leukocytes [#/volume] corrected for nucleated erythrocytes in Blood by Automated counLow4.1-10.5FFulton County Health CenterLymphocytes Auto (Bld) [#/Vol]Ordered By: Erich Alejandro on 10-22-2024 Lymphocytes (Bld) [#/Vol]Lymphocytes [#/volume] in Blood by Automated countLow 1.00-4.8[facility] HospitalLymphocytes/100 WBC Auto (Bld)Ordered By: Erich Alejandro on 05-42-0824Vdfbsmzrosy/100 WBC (Bld)Lymphocytes/100 leukocytes in Blood by Automated count.[facility] HospitalMCH Auto (RBC) [Entitic mass]Ordered By: Erich Alejandro on 34-65-7539BDV (RBC) [Entitic mass]MCH [Entitic mass] by Automated count27.5-35.2FFulton County Health CenterMCHC Auto (RBC) [Mass/Vol]Ordered By: Erich Alejandro on 60-22-4823WUWQ (RBC) [Mass/Vol]MCHC [Mass/volume] by Automated count32.5-35.6FFulton County Health CenterMCV Auto (RBC) [Entitic vol]Ordered By: Erich Alejandro on 59-79-9548HYV (RBC) [Entitic vol]MCV [Entitic volume] by Automated count83.5-101 [facility] HospitalMonocytes Auto (Bld) [#/Vol]Ordered By: Erich Alejandro on 06-76-2546Sqenxanzg (Bld) [#/Vol]Automated blood monocyte count 0.0-0.8[facility] HospitalMonocytes/100 WBC Auto (Bld)Ordered By: Erich Alejandro on 86-40-3086Elvyydzxt/100 WBC (Bld)Automated monocyte %.[facility] HospitalNeutrophils Auto (Bld) [#/Vol]Ordered By: Erich Alejandro on 53-94-6150Rdlfenmuyob (Bld) [#/Vol]Neutrophils [#/volume] in Blood by Automated count1.8-7.7FFulton County Health CenterNeutrophils/100 WBC Auto (Bld)Ordered By: Erich Alejandro on 88-75-3758Zcdjvwfgwfc/100 WBC (Bld)Automated neutrophil %.[facility] HospitalNo Panel InformationOrdered By: Angelo Iglesias on 33-94-1724Cxtqcfguaohnf Pathology TestSee commentLicking Memorial HospitalComment on above:See report. Scanned copy available in EMR.Nucleated erythrocytes [Presence] in Blood by Automated countOrdered By: Erich Alejandro on 73-95-9565Pttmwgjmh RBC Auto Ql (Bld)Nucleated erythrocytes [Presence] in Blood by Automated count0-0.5FFulton County Health Center Pathology Request for Lab Corpon 09-60-7369Pmgpuoobe Request for Lab CorpNormal The [facility] Physician GroupComment on above:Result Comment: See report. Scanned copy available in EMR. PERFORMED BY: [place] [address] PATHOLOGIST SAW REPAIRER ALEX SALMERON M.D.Performed By: #### PTT, FIB-C, PT #### [place] [address] USAPlatelet mean volume Auto (Bld) [Entitic vol]Ordered By: Erich Alejandro on 13-98-5606Fofjwwmf mean volume (Bld) [Entitic vol]Platelet mean volume [Entitic volume] in Blood by Automated count6.6-10.1FFulton County Health CenterPlatelets Auto (Bld) [#/Vol]Ordered By: Erich Alejandro on 47-95-5894Jwxodnnqf (Bld) [#/Vol]Platelets [#/volume] in Blood by Automated totnrCrb720-750VseisbiemLicking Memorial HospitalProthrombin Time INRon 05-07-2578XQF Coag (PPP) [Relative time]1.0 {INR}NormalThe [facility] Hospital Physician GroupComment on above:Result Comment: INR Therapeutic Range A) Pre- and [...] heart valves: 3 - 4.5 PERFORMED BY: [place] [id number] PATHOLOGIST SAW REPAIRER ALEX SALMERON M.D.Performed By: #### BMP, MG, CBC #### [facility] [address] [place] [address] USAPT Coag (PPP) [Time]11.3 sNormal9.0-12.9The [facility] Physician GroupComment on above:Result Comment: A hematocrit value greater than 55% may lead to inaccurate results in coagulation testing. Patients having hematocrit values >55% require a special collection tube for coagulation studies. Please contact the laboratory at [phone] for redraw instructions.Performed By: #### BMP, MG, CBC #### [facility] [address] [place] [address] USAProthrombin time (PT)Ordered By: Angelo Iglesias on 74-29-7458PF Coag (PPP) [Time]Prothrombin time (PT)9.0-12.9L[facility] HospitalComment on above:A hematocrit value greater than 55% may lead to inaccurate results in coagulation testing. Patientshaving hematocrit values >55% require a special collection tube for coagulation studies. Please contact the laboratory at [phone] for redraw instructions.RBC Auto (Bld) [#/Vol]Ordered By: Erich Alejandro on 27-80-7857XRC (Bld) [#/Vol]Erythrocytes [#/volume] in Blood by Automated count3.90-5.60L[facility] HospitalWBC Auto (Bld) [#/Vol]Ordered By: Erich Alejandro on 08-90-1269GXU (Bld) [#/Vol]Leukocytes [#/volume] in Blood by Automated countLow4.1-10.5FFulton County Health CenterBasic Metabolic Panelon 32-04-4483Scxmh gap [Moles/Vol]9.3 mmol/LNormal 6.0-15.0The [facility] Physician GroupComment on above:Performed By: #### BMP, MG, CBC #### [facility] [address] [place] [address] USACalcium [Mass/Vol]7.9 mg/dLLow8.6-10.3The [facility] Physician GroupComment on above:Performed By: #### BMP, MG, CBC #### [facility] [address] [place] [address] USAChloride [Moles/Vol]104 mmol/XDbyisy86-075Pcg [facility] Physician GroupComment on above:Performed By: #### BMP, MG, CBC #### [facility] [address] [place] [address] USACO2 [Moles/Vol]27.1 mmol/TKjbcag52.0-31.0The [facility] Physician GroupComment on above:Performed By: #### BMP, MG, CBC #### [place] [address] USACreatinine [Mass/Vol]1.17 mg/dLNormal0.70-1.30The [facility] Physician GroupComment on above:Performed By: #### BMP, MG, CBC #### [facility] [address] [place] [address] USACreatinine Clr Calc Vgsqekzo94.95NormalThe [facility] Hospital Physician GroupComment on above:Performed By: #### BMP, MG, CBC #### [place] [address] USAGFR/1.73 sq M.predicted MDRD (S/P/Bld) [Vol rate/Area] mL/min/{1.73_m2}NormalThe [facility] Physician GroupComment on above:Performed By: #### BMP, MG, CBC #### [place] [address] USAGlucose [Mass/Vol]168 mg/rKDguh35-584Qoj [facility] Physician GroupComment on above:Result Comment: Random Glucose Reference Range is dependent on time and content of last meal. Glucose of more than 200 mg/dL in a nonstressed, ambulatory subject supports the diagnosis of Diabetes Mellitus. ADA recommended reference rangePerformed By: #### BMP, MG, CBC #### [facility] [address] [place] [address] USAPotassium [Moles/Vol]3.4 mmol/LLow3.5-5.1The [facility] Physician GroupComment on above:Performed By: #### BMP, MG, CBC #### [facility] [address] [place] [address] USASodium [Moles/Vol]137 mmol/XSunqbb616-858Uso [facility] Physician GroupComment on above:Performed By: #### BMP, MG, CBC #### [facility] [address] [place] [address] USAUrea nitrogen [Mass/Vol]17 mg/dLNormal7-25The [facility] Physician GroupComment on above:Performed By: #### BMP, MG, CBC #### [facility] [address] [id number] USABasophils Auto (Bld) [#/Vol]Ordered By: [place] Caraballo on 67-87-6486Abmdznzcg (Bld) [#/Vol]Automated basophil count0.0-0.2 [facility] HospitalBasophils/100 WBC Auto (Bld)Ordered By: [place] Caraballo on 45-28-1920Wpnakgwyw/100 WBC (Bld)Automated basophil %. [facility] HospitalCalcium [Mass/volume] in Serum or PlasmaOrdered By: [place] Caraballo on 49-97-1595Tnnuhhd [Mass/Vol]Calcium [Mass/volume] in Serum or PlasmaLow8.6-10.3FFulton County Health CenterCarbon dioxide, total [Moles/volume] in Serum or PlasmaOrdered By: [place] Caraballo on 02-25-1989RG4 [Moles/Vol]Carbon dioxide, total [Moles/volume] in Serum or Plasma 21.0-31.0[facility] HospitalChloride [Moles/volume] in Serum or PlasmaOrdered By: [place] Caraballo on 85-28-9512Jjdbjohg [Moles/Vol]Chloride [Moles/volume] in Serum or Gusicm46-828QlqkqqkvdLicking Memorial HospitalComplete Blood Count Auto Diffon 90-98-3251Slmbkcgeg (Bld) [#/Vol]0.0 10*3/uLNormal 0.0-0.2The [facility] Physician GroupComment on above:Result Comment: PERFORMED BY: [place] [address] PATHOLOGIST SAW REPAIRER ALEX SALMERON M.D.Performed By: #### BMP, MG, CBC #### [facility] [address] [place] [address] USABasophils/100 WBC (Bld)1.4 %Normal.[facility] Physician GroupComment on above:Performed By: #### BMP, MG, CBC #### [facility] [address] [place] [address] USAEosinophils (Bld) [#/Vol]0.1 10*3/uLNormal0.0-0.45The [facility] Physician GroupComment on above:Performed By: #### BMP, MG, CBC #### [place] [address] USAEosinophils/100 WBC (Bld)2.0 %Normal.[facility] Physician GroupComment on above:Performed By: #### BMP, MG, CBC #### [place] [address] USAErythrocyte distribution width (RBC) [Ratio]13.1 %Normal 12.0-14.8The [facility] Physician GroupComment on above:Performed By: #### BMP, MG, CBC #### [facility] [address] [place] [address] USAHematocrit (Bld) [Volume fraction]32.8 %Low38.8-50.0The [facility] Physician GroupComment on above:Performed By: #### BMP, MG, CBC #### [facility] [address] [place] [address] USAHemoglobin (Bld) [Mass/Vol]11.7 g/dLLow13.0-17.0The [facility] Physician GroupComment on above:Performed By: #### BMP, MG, CBC #### [place] [address] USALymphocytes (Bld) [#/Vol]0.8 10*3/uLLow1.00-4.8The [facility] Physician GroupComment on above:Performed By: #### BMP, MG, CBC #### [place] [address] USALymphocytes/100 WBC (Bld)24.6 %Normal.[facility] Physician GroupComment on above:Performed By: #### BMP, MG, CBC #### [address] (RBC) [Entitic mass]34.3 smUrkcac71.5-35.2The [facility] Physician GroupComment on above:Performed By: #### BMP, MG, CBC #### [address]V (RBC) [Entitic vol]96.0 fMZnjght84.5-101The [facility] Physician GroupComment on above:Performed By: #### BMP, MG, CBC #### [place] [address] USAMean Corpuscular HGB Conc35.7 g/zYEdjw51.5-35.6The [facility] Physician GroupComment on above:Performed By: #### BMP, MG, CBC #### [place] [address] USAMonocytes (Bld) [#/Vol]0.3 10*3/uLNormal0.0-0.8The [facility] Physician GroupComment on above:Performed By: #### BMP, MG, CBC #### [place] [address] USAMonocytes/100 WBC (Bld)9.8 %Normal.The [facility] Physician GroupComment on above:Performed By: #### BMP, MG, CBC #### [address] [place] [address] USANeutrophils (Bld) [#/Vol]2.0 10*3/uLNormal1.8-7.7The [facility] Physician GroupComment on above:Performed By: #### BMP, MG, CBC #### [facility] [address] [place] [address] USANeutrophils/100 WBC (Bld)62.2 %Normal.The [facility] Physician GroupComment on above:Performed By: #### BMP, MG, CBC #### [facility] [address] [place] [address] USANRBC%0.1 /100{WBC}Normal0-0.5The [facility] Comment on above:Performed By: #### BMP, MG, CBC #### [facility] [address] [place] [address] USAPlatelet mean volume (Bld) [Entitic vol]8.0 fLNormal 6.6-10.1The [facility] Physician GroupComment on above:Performed By: #### BMP, MG, CBC #### [facility] [address] [place] [address] USAPlatelets (Bld) [#/Vol]85 10*3/aDThd725-416Meo [facility] Physician GroupComment on above:Performed By: #### BMP, MG, CBC #### [facility] [address] [place] [address] USARBC (Bld) [#/Vol]3.42 10*6/uLLow3.90-5.60The [facility] Physician GroupComment on above:Performed By: #### BMP, MG, CBC #### [facility] [address] [place] [address] USAWBC (Bld) [#/Vol]3.2 10*3/uLLow4.1-10.5The [facility] Physician GroupComment on above:Performed By: #### BMP, MG, CBC #### [facility] [address] [place] [address] USACreatinine [Mass/volume] in Serum or PlasmaOrdered By: [place] Caraballo on 86-36-6134Xicaojwndr [Mass/Vol]Creatinine [Mass/volume] in Serum or Plasma0.70-1.30[facility] HospitalEosinophils Auto (Bld) [#/Vol]Ordered By: [place] Caraballo on 81-07-7688Jirrabjwzpl (Bld) [#/Vol]Automated eosinophil count0.0-0.45[facility] Eosinophils/100 WBC Auto (Bld)Ordered By: [place] Caraballo on 10-14-2024 Eosinophils/100 WBC (Bld)Automated eosinophil %.[facility] HospitalErythrocyte distribution width Auto (RBC) [Ratio]Ordered By: [place] Caraballo on 67-38-3598Jgprjyqhtya distribution width (RBC) [Ratio]Erythrocyte distribution width [Ratio] by Automated count12.0-14.8[facility] HospitalGlucose Glucometer (BldC) [Mass/Vol]Ordered By: [place] Caraballo on 49-47-6448Jyztwul [Mass/Vol]Capillary blood glucose measurement by glucometer (mass/volume)[facility] HospitalComment on above:Random Glucose Reference Range is dependent on time and content of last meal. Glucose of more than 200 mg/dL in a nonstressed, ambulatory subject supports the diagnosis of Diabetes Mellitus.Glucose Poct Glucometerson 23-64-3275Jgqmxti3Mxm4: Cleaned MeterBaptist Health Bethesda Hospital West Physician GroupComment on above:Result Comment: PERFORMED BY: [address] [place] [address] PATHOLOGIST SAW REPAIRER ALEX SALMERON M.D.Performed By: #### GLULS #### Point of Care testing ,Glucose [Mass/Vol]201 mg/dLBaptist Health Bethesda Hospital West Physician GroupComment on above: Result Comment: Random Glucose Reference Range is dependent on time and content of last meal. Glucose of more than 200 mg/dL in a nonstressed, ambulatory subject supports the diagnosis of Diabetes Mellitus.Performed By: #### GLULS #### Point of Care testing ,Rutnbxz3Sxs4: Cleaned MeterrmNemours Children's Hospital Physician GroupComment on above: Result Comment: PERFORMED BY: [facility] [place] [address] PATHOLOGIST SAW REPAIRER ALEX SALMERON M.D.Performed By: #### GLULS #### Point of Care testing ,Glucose [Mass/Vol]145 mg/dLBaptist Health Bethesda Hospital West Physician GroupComment on above: Result Comment: Random Glucose Reference Range is dependent on time and content of last meal. Glucose of more than 200 mg/dL in a nonstressed, ambulatory subject supports the diagnosis of Diabetes Mellitus.Performed By: #### GLULS #### Point of Care testing ,Glucose [Mass/volume] in Serum or PlasmaOrdered By: West Caraballo on 22-37-0670Tazkcox [Mass/Vol]Glucose [Mass/volume] in Serum or NdsdmvXybd38-469 [facility] HospitalComment on above:ADA recommended reference rangeRandom Glucose Reference Range is dependent on time and content of last meal. Glucose of more than 200 mg/dL in a nonstressed, ambulatory subject supports the diagnosisof Diabetes Mellitus.Hematocrit Auto (Bld) [Volume fraction]Ordered By: [place] Caraballo on 92-00-7710Efhvskqinj (Bld) [Volume fraction]Hematocrit [Volume Fraction] of Blood by Automated juqvfRou64.8-50.0 [facility] HospitalHemoglobin [Mass/volume] in BloodOrdered By: [place] Caraballo on 37-14-5511Vosyjeyzdx (Bld) [Mass/Vol]Hemoglobin [Mass/volume] in XdmelAnj15.0-17.0[facility] HospitalLeukocytes [#/volume] corrected for nucleated erythrocytes in Blood by Automated coun Ordered By: West Caraballo on 25-09-0594GQY corrected for nucl RBC Auto (Bld) [#/Vol]Leukocytes [#/volume] corrected for nucleated erythrocytes in Blood by Automated counLow4.1-10.5FFulton County Health CenterLymphocytes Auto (Bld) [#/Vol]Ordered By: [place] Caraballo on 71-79-9442Impzjxmnyoy (Bld) [#/Vol]Lymphocytes [#/volume] in Blood by Automated countLow1.00-4.8[facility] HospitalLymphocytes/100 WBC Auto (Bld)Ordered By: [place] Caraballo on 63-65-3482Iopbfngqolb/100 WBC (Bld)Lymphocytes/100 leukocytes in Blood by Automated count.[facility] CenterH Auto (RBC) [Entitic mass]Ordered By: [place] Caraballo on 03-61-7376UIG (RBC) [Entitic mass]MCH [Entitic mass] by Automated count27.5-35.2FFulton County Health CenterMCHC Auto (RBC) [Mass/Vol]Ordered By: [place] Caraballo on 10-14-2024 MCHC (RBC) [Mass/Vol]MCHC [Mass/volume] by Automated qklstIfnd45.5-35.6FFulton County Health CenterMCV Auto (RBC) [Entitic vol]Ordered By: [place] Caraballo on 42-82-7407JDF (RBC) [Entitic vol]MCV [Entitic volume] by Automated count83.5-101[facility] HospitalMagnesiumon 93-83-2451Iiheitxre [Mass/Vol]1.7 mg/dLLow1.9-2.7The [facility] Physician GroupComment on above: Result Comment: PERFORMED BY: [place] [address] PATHOLOGIST SAW REPAIRER ALEX SALMERON M.D.Performed By: #### BMP, MG, CBC #### [place] [address] USAMagnesium [Mass/volume] in Serum or PlasmaOrdered By: West Caraballo on 70-16-8794Wdahepdrb [Mass/Vol]Magnesium [Mass/volume] in Serum or PlasmaLow1.9-2.7FFulton County Health CenterMonocytes Auto (Bld) [#/Vol]Ordered By: [place] Caraballo on 15-78-4429Xrsxbxiuw (Bld) [#/Vol] Automated blood monocyte count0.0-0.8[facility] Monocytes/100 WBC Auto (Bld)Ordered By: [place] Caraballo on 10-14-2024 Monocytes/100 WBC (Bld)Automated monocyte %.[facility] Neutrophils Auto (Bld) [#/Vol]Ordered By: West Caraballo on 10-14-2024 Neutrophils (Bld) [#/Vol]Neutrophils [#/volume] in Blood by Automated count 1.8-7.7FFulton County Health CenterNeutrophils/100 WBC Auto (Bld)Ordered By: [place] Caraballo on 51-74-9701Tfpjwckrhne/100 WBC (Bld)Automated neutrophil %.[facility] HospitalNo Panel InformationOrdered By: West Caraballo on 76-46-4426Sigausw Glucose CommentGlu2: cleaned meter [facility] HospitalEstimated GFR (CKD-EPI)> 60.0 mL/MinLicking Memorial HospitalPharmacy Creatinine Clearance (Chem57.95[facility] HospitalNucleated erythrocytes [Presence] in Blood by Automated countOrdered By: West Caraballo on 42-65-3465Utbajxhnt RBC Auto Ql (Bld) Nucleated erythrocytes [Presence] in Blood by Automated count0-0.5FFulton County Health CenterPlatelet mean volume Auto (Bld) [Entitic vol]Ordered By: [place] Caraballo on 35-35-7025Yzitbups mean volume (Bld) [Entitic vol] Platelet mean volume [Entitic volume] in Blood by Automated count6.6-10.1 [facility] HospitalPlatelets Auto (Bld) [#/Vol]Ordered By: West Caraballo on 00-36-4234Fqwsaxykj (Bld) [#/Vol]Platelets [#/volume] in Blood by Automated buwqaKbo559-737SewntmdedLicking Memorial HospitalPotassium [Moles/volume] in Serum or PlasmaOrdered By: West Caraballo on 10-14-2024 Potassium [Moles/Vol]Potassium [Moles/volume] in Serum or PlasmaLow3.5-5.1 [facility] HospitalRBC Auto (Bld) [#/Vol]Ordered By: [place] Caraballo on 90-25-6881UAI (Bld) [#/Vol]Erythrocytes [#/volume] in Blood by Automated countLow3.90-5.60[facility]iance Hospitalerum or plasma anion gap determinationOrdered By: West Caraballo on 74-41-5253Fqewc gap [Moles/Vol]Serum or plasma anion gap determination6.0-15.0[facility] Hospitalodium [Moles/volume] in Serum or PlasmaOrdered By: [place] Caraballo on 40-63-2925Hgrxpz [Moles/Vol]Sodium [Moles/volume] in Serum or Racxcm049-480VvtmtwzwjLicking Memorial HospitalUrea nitrogen [Mass/volume] in Serum or PlasmaOrdered By: West Caraballo on 06-93-2565Aeyl nitrogen [Mass/Vol]Urea nitrogen [Mass/volume] in Serum or Plasma7-25[facility] HospitalWBC Auto (Bld) [#/Vol]Ordered By: [place] Caraballo on 74-24-0691JHW (Bld) [#/Vol]Leukocytes [#/volume] in Blood by Automated countLow 4.1-10.5FFulton County Health CenterBasic Metabolic Panelon 81-00-8389Thnhw gap [Moles/Vol]8.8 mmol/LNormal6.0-15.0The [facility] Physician GroupComment on above:Performed By: #### BMP, MG, CBC #### [facility] [address] [id number] USACalcium [Mass/Vol]7.8 mg/dLLow8.6-10.3The [facility] Physician GroupComment on above:Performed By: #### BMP, MG, CBC #### [facility] [address] [place] [address] USAChloride [Moles/Vol]107 mmol/AKybrhp51-802Vlm [facility] Physician GroupComment on above:Performed By: #### BMP, MG, CBC #### [facility] [address] [place] [address] USACO2 [Moles/Vol]25.7 mmol/XNaemzd35.0-31.0The [facility] Physician GroupComment on above:Performed By: #### BMP, MG, CBC #### [place] [address] USACreatinine [Mass/Vol]1.01 mg/dLNormal0.70-1.30The [facility] Physician GroupComment on above:Performed By: #### BMP, MG, CBC #### [place] [address] USACreatinine Clr Calc Wxpgauqy66.31NormalThe [facility] Hospital Physician GroupComment on above:Result Comment: PERFORMED BY: [place] [address] PATHOLOGIST SAW REPAIRER ALEX SALMERON M.D.Performed By: #### BMP, MG, CBC #### [place] [address] USAGFR/1.73 sq M.predicted MDRD (S/P/Bld) [Vol rate/Area] mL/min/{1.73_m2}NormalThe [facility] Physician GroupComment on above:Performed By: #### BMP, MG, CBC #### [place] [address] USAGlucose [Mass/Vol]144 mg/zICjat53-031Omn [facility] Physician GroupComment on above:Result Comment: Random Glucose Reference Range is dependent on time and content of last meal. Glucose of more than 200 mg/dL in a nonstressed, ambulatory subject supports the diagnosis of Diabetes Mellitus. ADA recommended reference rangePerformed By: #### BMP, MG, CBC #### [place] [address] USAPotassium [Moles/Vol]3.5 mmol/LNormal3.5-5.1The [facility] Physician GroupComment on above:Performed By: #### BMP, MG, CBC #### [place] [address] USASodium [Moles/Vol]138 mmol/VQqvswz754-227Xky [facility] Physician GroupComment on above:Performed By: #### BMP, MG, CBC #### [place] [address] USAUrea nitrogen [Mass/Vol]14 mg/dLNormal7-25The [facility] Physician GroupComment on above:Performed By: #### BMP, MG, CBC #### [place] [address] USAComplete Blood Count Auto Diffon 55-72-6850Dfzhsaxuk (Bld) [#/Vol]0.0 10*3/uLNormal0.0-0.2The [facility] Physician GroupComment on above: Result Comment: PERFORMED BY: [place] [address] PATHOLOGIST SAW REPAIRER ALEX SALMERON M.D.Performed By: #### BMP, MG, CBC #### [place] [address] USABasophils/100 WBC (Bld)0.9 %Normal.[facility] Physician GroupComment on above:Performed By: #### BMP, MG, CBC #### [place] [address] USAEosinophils (Bld) [#/Vol]0.0 10*3/uLNormal0.0-0.45The [facility] Physician GroupComment on above:Performed By: #### BMP, MG, CBC #### [place] [address] USAEosinophils/100 WBC (Bld)1.7 %Normal.[facility] Physician GroupComment on above:Performed By: #### BMP, MG, CBC #### [place] [address] USAErythrocyte distribution width (RBC) [Ratio]12.9 %Normal 12.0-14.8The [facility] Physician GroupComment on above:Performed By: #### BMP, MG, CBC #### [place] [address] USAHematocrit (Bld) [Volume fraction]33.3 %Low38.8-50.0The [facility] Physician GroupComment on above:Performed By: #### BMP, MG, CBC #### [facility] [address] [place] [address] USAHemoglobin (Bld) [Mass/Vol]11.7 g/dLLow13.0-17.0The [facility] Physician GroupComment on above:Performed By: #### BMP, MG, CBC #### [place] [address] USALymphocytes (Bld) [#/Vol]0.7 10*3/uLLow1.00-4.8The [facility] Physician GroupComment on above:Performed By: #### BMP, MG, CBC #### [place] [address] USALymphocytes/100 WBC (Bld)25.8 %Normal.The [facility] Physician GroupComment on above:Performed By: #### BMP, MG, CBC #### [address] (RBC) [Entitic mass]33.7 skLuwout58.5-35.2The [facility] Physician GroupComment on above:Performed By: #### BMP, MG, CBC #### [place] [address] USAMCV (RBC) [Entitic vol]96.2 xHObfhbp97.5-101The [facility] Physician GroupComment on above:Performed By: #### BMP, MG, CBC #### [place] [address] USAMean Corpuscular HGB Conc35.0 g/xPTzmevi40.5-35.6The [facility] Physician GroupComment on above:Performed By: #### BMP, MG, CBC #### [facility] [address] [place] [address] USAMonocytes (Bld) [#/Vol]0.2 10*3/uLNormal0.0-0.8The [facility] Physician GroupComment on above:Performed By: #### BMP, MG, CBC #### [place] [address] USAMonocytes/100 WBC (Bld)7.9 %Normal.The [facility] Physician GroupComment on above:Performed By: #### BMP, MG, CBC #### [facility] [address] [place] [address] USANeutrophils (Bld) [#/Vol]1.7 10*3/uLLow1.8-7.7The [facility] Physician GroupComment on above:Performed By: #### BMP, MG, CBC #### [place] [address] USANeutrophils/100 WBC (Bld)63.7 %Normal.The [facility] Physician GroupComment on above:Performed By: #### BMP, MG, CBC #### [place] [address] USANRBC%0.2 /100{WBC}Normal0-0.5The [facility] Comment on above:Performed By: #### BMP, MG, CBC #### [facility] [address] [place] [address] USAPlatelet mean volume (Bld) [Entitic vol]8.0 fLNormal 6.6-10.1The [facility] Physician GroupComment on above:Performed By: #### BMP, MG, CBC #### [place] [address] USAPlatelets (Bld) [#/Vol]77 10*3/mJBbx270-832Ldh [facility] Physician GroupComment on above:Performed By: #### BMP, MG, CBC #### [place] [address] USARBC (Bld) [#/Vol]3.46 10*6/uLLow3.90-5.60The [facility] Physician GroupComment on above:Performed By: #### BMP, MG, CBC #### [facility] [address] [place] [address] USAWBC (Bld) [#/Vol]2.7 10*3/uLLow4.1-10.5The [facility] Physician GroupComment on above:Performed By: #### BMP, MG, CBC #### [place] [address] USAGlucose Poct Glucometerson 47-28-8273Ecphuma [Mass/Vol]184 mg/dLNoWakeMed North Hospital Physician GroupComment on above:Result Comment: Random Glucose Reference Range is dependent on time and content of last meal. Glucose of more than 200 mg/dL in a nonstressed, ambulatory subject supports the diagnosis of Diabetes Mellitus. PERFORMED BY: [place] [address] PATHOLOGIST SAW REPAIRER ALEX SALMERON M.D.Performed By: #### GLULS #### Point of Care testing ,Glucose [Mass/Vol]134 mg/dLNoWakeMed North Hospital Physician GroupComment on above: Result Comment: Random Glucose Reference Range is dependent on time and content of last meal. Glucose of more than 200 mg/dL in a nonstressed, ambulatory subject supports the diagnosis of Diabetes Mellitus. PERFORMED BY: [place] [address] PATHOLOGIST SAW REPAIRER ALEX SALMERON M.D.Performed By: #### PTT, FIB-C, PT #### [place] [address] USAGlucose [Mass/Vol]172 mg/dLNoWakeMed North Hospital Physician GroupComment on above:Result Comment: Random Glucose Reference Range is dependent on time and content of last meal. Glucose of more than 200 mg/dL in a nonstressed, ambulatory subject supports the diagnosis of Diabetes Mellitus. PERFORMED BY: [address] [id number] PATHOLOGIST SAW REPAIRER ALEX SALMERON M.D.Performed By: #### PTT, FIB-C, PT #### [place] [address] USAGlucose [Mass/Vol]125 mg/dLNoWakeMed North Hospital Physician GroupComment on above:Result Comment: Random Glucose Reference Range is dependent on time and content of last meal. Glucose of more than 200 mg/dL in a nonstressed, ambulatory subject supports the diagnosis of Diabetes Mellitus. PERFORMED BY: [address] [place] [address] PATHOLOGIST SAW REPAIRER ALEX SALMERON M.D.Performed By: #### GLULS #### Point of Care testing ,Alanine aminotransferase [Enzymatic activity/volume] in Serum or PlasmaOrdered By: Loyda Carlos on 89-38-1544VFF [Catalytic activity/Vol]Alanine aminotransferase [Enzymatic activity/volume] in Serum or Plasma7-52[facility] HospitalAlbumin [Mass/volume] in Serum or Plasma by Bromocresol green (BCG) dye binding methoOrdered By: Loyda Carlos on 18-61-7149Eiocsjy BCG dye [Mass/Vol]Albumin [Mass/volume] in Serum or Plasma by Bromocresol green (BCG) dye binding methoLow3.5-5.7FFulton County Health CenterAlkaline phosphatase [Enzymatic activity/volume] in Serum or PlasmaOrdered By: Loyda Carlos on 87-55-7267KEI [Catalytic activity/Vol]Alkaline phosphatase [Enzymatic activity/volume] in Serum or Uqbiec74-491PojwstrdwLicking Memorial Hospital Aspartate aminotransferase [Enzymatic activity/volume] in Serum or PlasmaOrdered By: Loyda Carlos on 56-06-0880VYW [Catalytic activity/Vol]Aspartate aminotransferase [Enzymatic activity/volume] in Serum or BkbftcSosz09-08 [facility] HospitalBilirubin.total [Mass/volume] in Serum or PlasmaOrdered By: Loyda Carlos on 26-48-6432Nqtnisupg [Mass/Vol]Bilirubin.total [Mass/volume] in Serum or Plasma0.3-1.0[facility] HospitalComplete Blood Count Auto Diffon 92-49-0008Rzatfkbla (Bld) [#/Vol]0.0 10*3/uLNormal 0.0-0.2The [facility] Physician GroupComment on above:Result Comment: PERFORMED BY: [facility] [address] [place] [address] PATHOLOGIST SAW REPAIRER ALEX SALMERON M.D.Performed By: #### PTT, FIB-C, PT #### [place] [address] USABasophils/100 WBC (Bld)1.0 %Normal.The [facility] Physician GroupComment on above:Performed By: #### PTT, FIB-C, PT #### [place] [address] USAEosinophils (Bld) [#/Vol]0.0 10*3/uLNormal0.0-0.45The [facility] Physician GroupComment on above:Performed By: #### PTT, FIB-C, PT #### [place] [address] USAEosinophils/100 WBC (Bld)1.5 %Normal.The [facility] Physician GroupComment on above:Performed By: #### PTT, FIB-C, PT #### [place] [address] USAErythrocyte distribution width (RBC) [Ratio]13.4 %Normal 12.0-14.8The [facility] Physician GroupComment on above:Performed By: #### PTT, FIB-C, PT #### [place] [address] USAHematocrit (Bld) [Volume fraction]32.8 %Low38.8-50.0The [facility] Physician GroupComment on above:Performed By: #### PTT, FIB-C, PT #### [place] [address] USAHemoglobin (Bld) [Mass/Vol]11.5 g/dLLow13.0-17.0The [facility] Physician GroupComment on above:Performed By: #### PTT, FIB-C, PT #### [place] [address] USALymphocytes (Bld) [#/Vol]0.7 10*3/uLLow1.00-4.8The [facility] Physician GroupComment on above:Performed By: #### PTT, FIB-C, PT #### [place] [address] USALymphocytes/100 WBC (Bld)26.9 %Normal.The [facility] Physician GroupComment on above:Performed By: #### PTT, FIB-C, PT #### [address] (RBC) [Entitic mass]33.5 dzKgcehm51.5-35.2The [facility] Physician GroupComment on above:Performed By: #### PTT, FIB-C, PT #### [address] (RBC) [Entitic vol]96.0 eZRvsskh85.5-101The [facility] Physician GroupComment on above:Performed By: #### PTT, FIB-C, PT #### [place] [address] USAMean Corpuscular HGB Conc34.9 g/eNEfhubl38.5-35.6The [facility] Physician GroupComment on above:Performed By: #### PTT, FIB-C, PT #### [place] [address] USAMonocytes (Bld) [#/Vol]0.3 10*3/uLNormal0.0-0.8The [facility] Physician GroupComment on above:Performed By: #### PTT, FIB-C, PT #### [place] [address] USAMonocytes/100 WBC (Bld)10.4 %Normal.The [facility] Physician GroupComment on above:Performed By: #### PTT, FIB-C, PT #### [facility] [address] [place] [address] USANeutrophils (Bld) [#/Vol]1.5 10*3/uLLow1.8-7.7The [facility] Physician GroupComment on above:Performed By: #### PTT, FIB-C, PT #### [place] [address] USANeutrophils/100 WBC (Bld)60.2 %Normal.The [facility] Physician GroupComment on above:Performed By: #### PTT, FIB-C, PT #### [facility] [address] [place] [address] USANRBC%0.3 /100{WBC}Normal0-0.5The [facility] Group Comment on above:Performed By: #### PTT, FIB-C, PT #### [place] [place] [address] USAPlatelet mean volume (Bld) [Entitic vol]8.0 fLNormal 6.6-10.1The [facility] Physician GroupComment on above:Performed By: #### PTT, FIB-C, PT #### [place] [address] USAPlatelets (Bld) [#/Vol]73 10*3/wUWcx960-106Seb [facility] Physician GroupComment on above:Performed By: #### PTT, FIB-C, PT #### [place] [address] USARBC (Bld) [#/Vol]3.42 10*6/uLLow3.90-5.60The [facility] Physician GroupComment on above:Performed By: #### PTT, FIB-C, PT #### [place] [address] USAWBC (Bld) [#/Vol]2.5 10*3/uLLow4.1-10.5The [facility] Physician GroupComment on above:Performed By: #### PTT, FIB-C, PT #### [place] [address] USAComprehensive Metabolic Panelon 90-27-0617Rdpesym [Mass/Vol]3.0 g/dLLow3.5-5.7The [facility] Physician GroupComment on above: Performed By: #### PTT, FIB-C, PT #### [place] [address] USAAlbumin/Globulin [Mass ratio]1.8 {ratio}NormalThe [facility] Physician GroupComment on above:Performed By: #### PTT, FIB-C, PT #### [facility] [address] [place] [id number] USAALP [Catalytic activity/Vol]69 U/OIplhtz26-651Kdt [facility] Physician GroupComment on above:Performed By: #### PTT, FIB-C, PT #### [facility] [address] [place] [address] USAALT [Catalytic activity/Vol]47 U/LNormal7-52The [facility] Physician GroupComment on above:Performed By: #### PTT, FIB-C, PT #### [facility] [address] [place] [address] USAAnion gap [Moles/Vol]11.1 mmol/LNormal6.0-15.0The [facility] Physician GroupComment on above:Performed By: #### PTT, FIB-C, PT #### [facility] [address] [place] [address] USAAST [Catalytic activity/Vol]42 U/JOwai39-64Gbs [facility] Physician GroupComment on above:Performed By: #### PTT, FIB-C, PT #### [facility] [address] [place] [address] USABilirubin [Mass/Vol]0.3 mg/dLNormal0.3-1.0The [facility] Physician GroupComment on above:Performed By: #### PTT, FIB-C, PT #### [facility] [address] [place] [address] USACalcium [Mass/Vol]7.5 mg/dLLow8.6-10.3The [facility] Physician GroupComment on above:Performed By: #### PTT, FIB-C, PT #### [facility] [address] [place] [address] USAChloride [Moles/Vol]109 mmol/SGece81-765Wwg [facility] Physician GroupComment on above:Performed By: #### PTT, FIB-C, PT #### [facility] [address] [place] [address] USACO2 [Moles/Vol]22.7 mmol/ZActpen20.0-31.0The [facility] Physician GroupComment on above:Performed By: #### PTT, FIB-C, PT #### [facility] [address] [place] [address] USACreatinine [Mass/Vol]1.07 mg/dLNormal0.70-1.30The [facility] Physician GroupComment on above:Performed By: #### PTT, FIB-C, PT #### [facility] [address] [place] [address] USACreatinine Clr Calc Eoejnxmb03.69NormNemours Children's Hospital Physician GroupComment on above:Performed By: #### PTT, FIB-C, PT #### [facility] [address] [place] [address] USAGFR/1.73 sq M.predicted MDRD (S/P/Bld) [Vol rate/Area] mL/min/{1.73_m2}NormalThe [facility] Physician GroupComment on above:Performed By: #### PTT, FIB-C, PT #### [facility] [address] [place] [address] USAGlobulin (S) [Mass/Vol]1.7 g/dLNormSalem City Hospitale [facility] Physician GroupComment on above:Performed By: #### PTT, FIB-C, PT #### [facility] [address] [place] [address] USAGlucose [Mass/Vol]134 mg/gUOode35-739Bhw [facility] Physician GroupComment on above:Result Comment: Random Glucose Reference Range is dependent on time and content of last meal. Glucose of more than 200 mg/dL in a nonstressed, ambulatory subject supports the diagnosis of Diabetes Mellitus. ADA recommended reference rangePerformed By: #### PTT, FIB-C, PT #### [facility] [address] [place] [address] USAPotassium [Moles/Vol]3.8 mmol/LNormal3.5-5.1The [facility] Physician GroupComment on above:Performed By: #### PTT, FIB-C, PT #### [facility] [address] [place] [address] USAProtein [Mass/Vol]4.7 g/dLLow6.4-8.9The [facility] Physician GroupComment on above:Performed By: #### PTT, FIB-C, PT #### [facility] [address] [place] [address] USASodium [Moles/Vol]139 mmol/AJjsshb573-200Dac [place] [facility] Trace Regional HospitalComment on above:Performed By: #### PTT, FIB-C, PT #### [facility] [address] [place] [address] USAUrea nitrogen [Mass/Vol]14 mg/dLNormal7-e [facility] Physician GroupComment on above:Performed By: #### PTT, FIB-C, PT #### [facility] [address] [place] [address] USAGlobulin Calc (S) [Mass/Vol]Ordered By: Loyda Carlos on 85-79-3076Ravwtrqi (S) [Mass/Vol]Serum globulin measurement by calculation (mass/volume)[facility] HospitalGlucose Poct Glucometerson 94-94-0399Nulfvsn [Mass/Vol]195 mg/dLNoWakeMed North Hospital Physician Trace Regional HospitalComment on above:Result Comment: Random Glucose Reference Range is dependent on time and content of last meal. Glucose of more than 200 mg/dL in a nonstressed, ambulatory subject supports the diagnosis of Diabetes Mellitus. PERFORMED BY: [place] [address] PATHOLOGIST SAW REPAIRER ALEX SALMERON M.D.Performed By: #### PTT, FIB-C, PT #### [place] [address] USAGlucose [Mass/Vol]171 mg/dLNoWakeMed North Hospital Physician GroupComment on above:Result Comment: Random Glucose Reference Range is dependent on time and content of last meal. Glucose of more than 200 mg/dL in a nonstressed, ambulatory subject supports the diagnosis of Diabetes Mellitus. PERFORMED BY: [place] [address] PATHOLOGIST SAW REPAIRER ALEX SALMERON M.D.Performed By: #### BMP, MG, CBC #### [address] [place] [address] USAGlucose [Mass/Vol]154 mg/dLNoWakeMed North Hospital Physician GroupComment on above:Result Comment: Random Glucose Reference Range is dependent on time and content of last meal. Glucose of more than 200 mg/dL in a nonstressed, ambulatory subject supports the diagnosis of Diabetes Mellitus. PERFORMED BY: [place] [address] PATHOLOGIST SAW REPAIRER ALEX SALMERON M.D.Performed By: #### BMP, MG, CBC #### [place] [address] USAGlucose [Mass/Vol]134 mg/dLNormNemours Children's Hospital Physician GroupComment on above:Result Comment: Random Glucose Reference Range is dependent on time and content of last meal. Glucose of more than 200 mg/dL in a nonstressed, ambulatory subject supports the diagnosis of Diabetes Mellitus. PERFORMED BY: [place] [id number] PATHOLOGIST SAW REPAIRER ALEX SALMERON M.D.Performed By: #### BMP, MG, CBC #### [place] [id number] USAMagnesiumon 78-51-3952Hvmkwpvkb [Mass/Vol]1.7 mg/dLLow 1.9-2.7The [facility] Physician GroupComment on above:Result Comment: PERFORMED BY: [place] [id number] PATHOLOGIST SAW REPAIRER ALEX SALMERON M.D.Performed By: #### PTT, FIB-C, PT #### [place] [id number] USAPhosphate [Mass/volume] in Serum or PlasmaOrdered By: Loyda Carlos on 95-40-8741Sjxxeyrvc [Mass/Vol]Phosphate [Mass/volume] in Serum or Plasma2.5-4.5FFulton County Health CenterPhosphoruson 10-12-2024 Phosphate [Mass/Vol]2.9 mg/dLNormal2.5-4.5The [facility] Physician GroupComment on above:Performed By: #### PTT, FIB-C, PT #### [facility] [address] [place] [address] USAProtein [Mass/volume] in Serum or PlasmaOrdered By: Loyda Carlos on 44-13-6254Uuytfte [Mass/Vol]Protein [Mass/volume] in Serum or PlasmaLow6.4-8.9Mer[facility] Health Defiance Hospitalerum or plasma albumin/globulin mass ratioOrdered By: Loyda Carlos on 10-12-2024 Albumin/Globulin [Mass ratio]Serum or plasma albumin/globulin mass ratio [facility] HospitalC reactive protein [Mass/volume] in Serum or PlasmaOrdered By: Loyda Carlos on 08-78-6668CVY [Mass/Vol]C reactive protein [Mass/volume] in Serum or PlasmaHigh0.0-0.5FFulton County Health CenterC- Reactive Proteinon 21-88-9240I-Reactive Protein2.5 mg/dLHigh0.0-0.5The [facility] Physician GroupComment on above:Result Comment: PERFORMED BY: [place] [address] PATHOLOGIST SAW REPAIRER ALEX SALMERON M.D.Performed By: #### BMP, MG, CBC #### [place] [address] USACells analyzed [#]Ordered By: Loyda Carlos on 10-11-2024 Cells analyzed Molgen (Bld/Tiss) [#]Cells analyzed [#].[facility] HospitalCells counted [#]Ordered By: Loyda Carlos on 90-56-3841Kpfph counted Molgen (Bld/Tiss) [#]Total cell count.[facility] Cells karyotyped.total [#] in Blood or TissueOrdered By: Loyda Carlos on 37-57-2442Ygivs karyotyped.total (Bld/Tiss) [#]Cells karyotyped.total [#] in Blood or Tissue.[facility] Memorial HospitalChrom Leuk/Lymph Cells Analyzon 31-31-2868Jxvuv Leuk/Lymph Cells Fgijob9Xdprzs.The [facility] Comment on above:Performed By: #### PTT, FIB-C, PT #### [facility] [address] [place] [address] USAChrom Leuk/Lymph Cells Countedon 34-12-0367Jjtgq Leuk/Lymph Cells Oqeyalg8Pdcbod.The [facility] Physician GroupComment on above: Performed By: #### PTT, FIB-C, PT #### [facility] [address] [place] [address] USAChrom Leuk/Lymph Cells Karotypon 39-92-1219Hhuuh Leuk/Lymph Cells Nvazkwa8Tvwlrd.The [facility] Physician GroupComment on above: Performed By: #### PTT, FIB-C, PT #### [place] [address] USAChrom Leuk/Lymph Cytogen Reson 29-27-7615Wjvfg Leuk/Lymph Cytogen ResComment:Normal.The [facility] Physician GroupComment on above:Result Comment: NO MITOTIC ACTIVITYPerformed By: #### PTT, FIB-C, PT #### [place] [address] USAChrom Leuk/Lymph Dir Reviewon 08-06-7493Voncy Leuk/Lymph Dir ReviewComment:Normal.The [facility] Physician GroupComment on above:Result Comment: Jennie Marino, PhD, FACMG Performed at: [facility] [address] [facility], [place] [id number] Customer Experience Strategist: Felisha Rivera [facility], Phone: [phone] PERFORMED BY: [place] [address] PATHOLOGIST SAW REPAIRER AELX SALMERON M.D.Performed By: #### [place] #### Point of Care testing ,Chrom Leuk/Lymph GTG Band Reson 96-41-3611Mdwwd Leuk/Lymph GTG Band ResN/A Normal.The [facility] Physician GroupComment on above:Performed By: #### PTT, FIB-C, PT #### [place] [address] USAChrom Leuk/Lymph Interpretaton 01-38-8737Reira Leuk/Lymph InterpretatComment:Normal.The [facility] Physician GroupComment on above:Result Comment: NO RESULT Cytogenetic analysis of GTG banded metaphases from unstimulated cultures revealed no mitotic activity. The sample submitted appeared to be blood. Generally, 5% blasts in the peripheral circulation are necessary to obtain cytogenetic results. Bone marrow is recommended for the analysis of disorders with blasts below that percentage. Interphase FISH analysis using indication specific targeted probes or a whole genome SNP microarray (test code 116179) may be considered. The [employer]@Myeloid multi-gene genomic next generation sequencing panel (test code 941694) may also be considered. Testing can be performed on a residual sample, if available.Performed By: #### [place] #### Point of Care testing ,Chromosome Leuk/Lymph Spec Tyon 31-85-8443Yjqntkgccv Leuk/Lymph Spec TyComment: Normal.The [facility] Trace Regional HospitalComment on above:Result Comment: BLOOD Performed By: #### PTT, FIB-C, PT #### [place] [address] USAChromosome analysis result in ISCN expressionOrdered By: Loyda Carlos on 87-19-8209Ssf analysis result in ISCN expression Molgen Nom (Bld/Tiss)Chromosome analysis result in ISCN expression.[facility] HospitalComment on above:NO MITOTIC ACTIVITYClinical head pumper [Identifier] in SpecimenOrdered By: Loyda Carlos on 58-15-8346Oulrxxxu head pumper Nom (Unsp spec) [ID]Clinical head pumper [Identifier] in Specimen.[facility] HospitalComment on above:Jennie Marino, PhD, FACMGPerformed at: [facility] [id number] [facility] [place], [place] [address]Lab Director: Felisha Rivera [facility], Phone: [phone] Blood Count Auto Diffon 94-24-7556Wbnjvohsi (Bld) [#/Vol]0.0 10*3/uLNormal0.0-0.2The [facility] Trace Regional HospitalComment on above:Result Comment: PERFORMED BY: [place] [address] PATHOLOGIST SAW REPAIRER ALEX SALMERON M.D.Performed By: #### BMP, MG, CBC #### [place] [address] USABasophils/100 WBC (Bld)0.8 %Normal.The [facility] Physician GroupComment on above:Performed By: #### BMP, MG, CBC #### [place] [address] USAEosinophils (Bld) [#/Vol]0.0 10*3/uLNormal0.0-0.45The [facility] Physician GroupComment on above:Performed By: #### BMP, MG, CBC #### [place] [address] USAEosinophils/100 WBC (Bld)1.1 %Normal.The [facility] Physician GroupComment on above:Performed By: #### BMP, MG, CBC #### [place] [address] USAErythrocyte distribution width (RBC) [Ratio]13.3 %Normal 12.0-14.8The [facility] Physician GroupComment on above:Performed By: #### BMP, MG, CBC #### [place] [address] USAHematocrit (Bld) [Volume fraction]33.2 %Low38.8-50.0The [facility] Physician GroupComment on above:Performed By: #### BMP, MG, CBC #### [place] [address] USAHemoglobin (Bld) [Mass/Vol]11.6 g/dLLow13.0-17.0The [facility] Physician GroupComment on above:Performed By: #### BMP, MG, CBC #### [place] [address] USALymphocytes (Bld) [#/Vol]0.6 10*3/uLLow1.00-4.8The [facility] Physician GroupComment on above:Performed By: #### BMP, MG, CBC #### [address] [place] [address] USALymphocytes/100 WBC (Bld)22.0 %Normal.The [facility] Physician GroupComment on above:Performed By: #### BMP, MG, CBC #### [facility] [address] [place] [address] USAMCH (RBC) [Entitic mass]33.7 kbQmjoao91.5-35.2The [facility] Physician GroupComment on above:Performed By: #### BMP, MG, CBC #### [facility] [address] [place] [address] USAMCV (RBC) [Entitic vol]96.6 tVMbphhu90.5-101The [facility] Physician GroupComment on above:Performed By: #### BMP, MG, CBC #### [place] [address] USAMean Corpuscular HGB Conc34.9 g/jQTfvpsk33.5-35.6The [facility] Physician GroupComment on above:Performed By: #### BMP, MG, CBC #### [place] [address] USAMonocytes (Bld) [#/Vol]0.3 10*3/uLNormal0.0-0.8The [facility] Physician GroupComment on above:Performed By: #### BMP, MG, CBC #### [place] [address] USAMonocytes/100 WBC (Bld)11.4 %Normal.The [facility] Physician GroupComment on above:Performed By: #### BMP, MG, CBC #### [place] [address] USANeutrophils (Bld) [#/Vol]1.8 10*3/uLNormal1.8-7.7The [facility] Physician GroupComment on above:Performed By: #### BMP, MG, CBC #### [place] [address] USANeutrophils/100 WBC (Bld)64.7 %Normal.The [facility] Physician GroupComment on above:Performed By: #### BMP, MG, CBC #### [facility] [address] [place] [address] USANRBC%0.1 /100{WBC}Normal0-0.5The [facility] Comment on above:Performed By: #### BMP, MG, CBC #### [place] [address] USAPlatelet mean volume (Bld) [Entitic vol]8.0 fLNormal 6.6-10.1The [facility] Physician GroupComment on above:Performed By: #### BMP, MG, CBC #### [place] [address] USAPlatelets (Bld) [#/Vol]73 10*3/yMOmu812-841Elf [facility] Physician GroupComment on above:Performed By: #### BMP, MG, CBC #### [place] [address] USARBC (Bld) [#/Vol]3.44 10*6/uLLow3.90-5.60The [facility] Physician GroupComment on above:Performed By: #### BMP, MG, CBC #### [place] [address] USAWBC (Bld) [#/Vol]2.8 10*3/uLLow4.1-10.5The [facility] Physician GroupComment on above:Performed By: #### BMP, MG, CBC #### [place] [address] USAComprehensive Metabolic Panelon 74-16-7630Uvbdtyv [Mass/Vol]3.0 g/dLLow3.5-5.7The [facility] Physician GroupComment on above: Performed By: #### BMP, MG, CBC #### [place] [address] USAAlbumin/Globulin [Mass ratio]1.6 {ratio}NormalThe [facility] Physician GroupComment on above:Performed By: #### BMP, MG, CBC #### [place] [address] USAALP [Catalytic activity/Vol]48 U/URtgvea77-308Dav [facility] Physician GroupComment on above:Performed By: #### BMP, MG, CBC #### [facility] [address] [place] [address] USAALT [Catalytic activity/Vol]29 U/LNormal7-52The [facility] Physician GroupComment on above:Performed By: #### BMP, MG, CBC #### [facility] [address] [place] [address] USAAnion gap [Moles/Vol]6.7 mmol/LNormal6.0-15.0The [facility] Physician GroupComment on above:Performed By: #### BMP, MG, CBC #### [facility] [address] [place] [address] USAAST [Catalytic activity/Vol]42 U/JThwq06-07Naq [facility] Physician GroupComment on above:Performed By: #### BMP, MG, CBC #### [facility] [address] [place] [address] USABilirubin [Mass/Vol]0.3 mg/dLNormal0.3-1.0The [facility] Physician GroupComment on above:Performed By: #### BMP, MG, CBC #### [place] [address] USACalcium [Mass/Vol]7.5 mg/dLLow8.6-10.3The [facility] Physician GroupComment on above:Performed By: #### BMP, MG, CBC #### [facility] [address] [place] [address] USAChloride [Moles/Vol]113 mmol/LHbyu25-995Bac [facility] Physician GroupComment on above:Performed By: #### BMP, MG, CBC #### [facility] [address] [place] [address] USACO2 [Moles/Vol]23.2 mmol/DNmcove52.0-31.0The [facility] Physician GroupComment on above:Performed By: #### BMP, MG, CBC #### [facility] [address] [place] [address] USACreatinine [Mass/Vol]1.16 mg/dLNormal0.70-1.30The [facility] Physician GroupComment on above:Performed By: #### BMP, MG, CBC #### [facility] [address] [place] [address] USACreatinine Clr Calc Ffzsvoae36.83NoWakeMed North Hospital Physician GroupComment on above:Performed By: #### BMP, MG, CBC #### [facility] [address] [place] [address] USAGFR/1.73 sq M.predicted MDRD (S/P/Bld) [Vol rate/Area] mL/min/{1.73_m2}NormalThe [facility] Physician GroupComment on above:Performed By: #### BMP, MG, CBC #### [facility] [address] [place] [address] USAGlobulin (S) [Mass/Vol]1.9 g/dLNoWakeMed North Hospital Physician GroupComment on above:Performed By: #### BMP, MG, CBC #### [place] [address] USAGlucose [Mass/Vol]106 mg/pDDvgm13-511Klx [facility] Physician GroupComment on above:Result Comment: Random Glucose Reference Range is dependent on time and content of last meal. Glucose of more than 200 mg/dL in a nonstressed, ambulatory subject supports the diagnosis of Diabetes Mellitus. ADA recommended reference rangePerformed By: #### BMP, MG, CBC #### [place] [address] USAPotassium [Moles/Vol]3.9 mmol/LNormal3.5-5.1The [facility] Physician GroupComment on above:Performed By: #### BMP, MG, CBC #### [place] [address] USAProtein [Mass/Vol]4.9 g/dLLow6.4-8.9The [facility] Physician GroupComment on above:Performed By: #### BMP, MG, CBC #### [place] [address] USASodium [Moles/Vol]139 mmol/XSfslzd563-007Tjm [facility]wood Medical CenterComment on above:Performed By: #### BMP, MG, CBC #### [facility] [address] [place] [id number] USAUrea nitrogen [Mass/Vol]12 mg/dLNormal7-25The [facility] Physician GroupComment on above:Performed By: #### BMP, MG, CBC #### [facility] [address] [place] [address] USACopperon 27-39-0979Xyjvjc33 ug/qQAidokf68-759FlzParkwood Behavioral Health SystemComment on above:Result Comment: This test was developed and its performance characteristics determined by [employer]. It has not been cleared or approved by the Food and Drug Administration. Detection Limit = 5 Performed at: [place] [id number] Customer Experience Strategist: Yadira Gallegos MD, Phone: [phone] By: #### PTT, FIB- C, PT #### [facility] [address] [place] [address] USACopper measurementOrdered By: Angelo Iglesias on 10-11-2024 Basophil percentageBasophil ysqbrtcwen67-768CbdfculbsLicking Memorial Hospital Comment on above:This test was developed and its performance characteristicsdetermined by [employer]. It has not been cleared orapproved by the Food and Drug Administration. Detection Limit = 5Performed at: [employer] [id number] Director: Yadira Gallegos MD, Phone: [phone] impression [Interpretation] in Specimen NarrativeOrdered By: Loyda Carlos on 10-26-2939Tbjktwyplk impression [employer] Yovany (Unsp spec) [Interp]Diagnostic impression [Interpretation] in Specimen Narrative .[facility] HospitalComment on above:NO RESULT Cytogenetic analysis of GTG banded metaphases fromunstimulated cultures revealed no mitotic activity. Thesample submitted appeared to be blood. Generally, 5% blastsin the peripheral circulation are necessary to obtaincytogenetic results. Bone marrow is recommended for theanalysis of disorders with blasts below that percentage. Interphase FISH analysis using indication specifictargeted probes or a whole genome SNP microarray (test [id number]) may be considered. The [employer]@Myeloid multi-genegenomic next generation sequencing panel (test code 303207)may also be considered. Testing can be performed on aresidual sample, if available.Erythrocyte Sedimentation Rateon 60-93-5131RUL (Bld) [Velocity]14 mm/hNormal0-19The [facility] Physician GroupComment on above:Result Comment: PERFORMED BY: [place] [address] PATHOLOGIST SAW REPAIRER ALEX SALMERON M.D.Performed By: #### PTT, FIB-C, PT #### [place] [address] USAErythrocyte sedimentation rate by Photometric method Ordered By: Loyda Carlos on 07-70-4768GKM Photometric method (Bld) [Velocity] Erythrocyte sedimentation rate by Photometric method0-[facility] Memorial HospitalFerritinon 59-18-1199Lellbakq [Mass/Vol]131.0 ng/mLNormal 23.9-336.2The [facility]ician Trace Regional HospitalComment on above:Order Comment: Comment addPerformed By: #### PTT, FIB-C, PT #### [place] [id number] USAFerritin [Mass/volume] in Serum or PlasmaOrdered By: Loyda Carlos on 15-68-6811Sqwomvou [Mass/Vol]Ferritin [Mass/volume] in Serum or Ywxbvt27.9-336.2FFulton County Health CenterFibrinogenon 10-11-2024 Ianseinbok242 mg/fXZartkh144-277Atg [facility] Physician GroupComment on above: Result Comment: A hematocrit value greater than 55% may lead to inaccurate results in coagulation testing. Patients having hematocrit values >55% require a special collection tube for coagulation studies. Please contact the laboratory at [phone] for redraw instructions. PERFORMED BY: [address] [address] PATHOLOGIST SAW REPAIRER ALEX SALMERON M.D.Performed By: #### PTT, FIB-C, PT #### [facility] [address] [place] [address] USAFibrinogen [Mass/volume] in Platelet poor plasma by Coagulation assayOrdered By: Angelo Iglesias on 90-54-1451Wflkzvpvde Coag (PPP) [Mass/Vol]Fibrinogen [Mass/volume] in Platelet poor plasma by Coagulation assay 200-393L[facility] HospitalComment on above:A hematocrit value greater than 55% may lead to inaccurate results in coagulation testing. Patients having hematocrit values >55% require a special collection tube for coagulation studies. Please contact the laboratory at [phone] for redraw instructions. Folate [Mass/volume] in Serum or PlasmaOrdered By: Loyda Carlos on 10-11-2024 Folate [Mass/Vol]Folate [Mass/volume] in Serum or Plasma>5.9[facility] HospitalComment on above:Folate reference range: >5.9 ng/mlThe WHO technical consultation on folate and vitamin d76ojmhnkvitaue has determined that folate concentrations lessthan 4 ng/ml are considered deficient.Glucose Poct Glucometerson 21-29-6633Wloaaml [Mass/Vol]200 mg/dLBaptist Health Bethesda Hospital West Physician GroupComment on above:Result Comment: Random Glucose Reference Range is dependent on time and content of last meal. Glucose of more than 200 mg/dL in a nonstressed, ambulatory subject supports the diagnosis of Diabetes Mellitus. PERFORMED BY: [place] [address] PATHOLOGIST SAW REPAIRER ALEX SALMERON M.D.Performed By: #### PTT, FIB-C, PT #### [facility] [address] [place] [address] XFNYepbmwj4Fpa2: Cleaned MeterNoWakeMed North Hospital Physician GroupComment on above:Result Comment: PERFORMED BY: [facility] [address] [place] [address] PATHOLOGIST SAW REPAIRER ALEX SALMERON M.D.Performed By: #### GLULS #### Point of Care testing ,Glucose [Mass/Vol]134 mg/dLNoWakeMed North Hospital Physician GroupComment on above: Result Comment: Random Glucose Reference Range is dependent on time and content of last meal. Glucose of more than 200 mg/dL in a nonstressed, ambulatory subject supports the diagnosis of Diabetes Mellitus.Performed By: #### GLULS #### Point of Care testing ,Glucose [Mass/Vol]147 mg/dLNoWakeMed North Hospital Physician GroupComment on above: Result Comment: Random Glucose Reference Range is dependent on time and content of last meal. Glucose of more than 200 mg/dL in a nonstressed, ambulatory subject supports the diagnosis of Diabetes Mellitus. PERFORMED BY: [place] [address] PATHOLOGIST SAW REPAIRER ALEX SALMERON M.D.Performed By: #### BMP, MG, CBC #### [place] [address] USAHCV Antibody Cascadeon 81-03-7503Eakvmzxtj C Virus AntibodyNon-ReactiveNormalNon ReactiveThe [facility]wood Medical CenterComment on above:Performed By: #### PTT, FIB-C, PT #### [place] [address] USAInterpretation Hepatitis CCommentNormal.The [facility] Physician GroupComment on above:Result Comment: Not infected with HCV unless early or acute infection is suspected (which may be delayed in an immunocompromised individual), or other evidence exists to indicate HCV infection. Performed at: - [facility] [id number] Customer Experience Strategist: Juan José Butler PhD, Phone: [phone] PERFORMED BY: [place] [address] PATHOLOGIST SAW REPAIRER ALEX SALMERON M.D.Performed By: #### PTT, FIB-C, PT #### [place] [address] USAHIV 1/O/2 Antigen/Antibodyon 39-96-4864QYB Screen 4th GenerationNon-ReactiveNormalNon ReactiveThe [facility] Physician GroupComment on above:Result Comment: HIV-1/HIV-2 antibodies and HIV-1 p24 antigen were NOT detected. There is no laboratory evidence of HIV infection. HIV Negative Performed at: [address] [id number] Customer Experience Strategist: Juan José Butler PhD, Phone: [phone] PERFORMED BY: [place] [address] PATHOLOGIST SAW REPAIRER ALEX SALMERON M.D.Performed By: #### PTT, FIB-C, PT #### [facility] [address] [place] [address] USAHIV antibody and antigen panelOrdered By: Angelo Iglesias on 90-03-7215XVG 1+2 Ab+HIV1 p24 Ag IA QlHIV 1 and HIV-2 antibody assay with HIV-1 p24 antigen detectionNon [facility] for RehabilitationComment on above:HIV-1/HIV-2 antibodies and HIV-1 p24 antigen were NOTdetected. There is no laboratory evidence of HIV infection.HIV NegativePerformed at: [address] [id number] Director: Juan José Butler PhD, Phone: [phone] B Core Antibodyon 97-86-8963Rqsqabtpi B Core AntibodyNegativeNormalNegativeBroward Health Imperial Point Physician Trace Regional HospitalComment on above: Performed By: #### PTT, FIB-C, PT #### [facility] [address] [place], [place] [address] USAHepatitis B Core Antibody IgMon 85-69-4741Vndcbwpxf B Core Antibody IgMNegativeNormalNegativeBroward Health Imperial Point Physician GroupComment on above:Result Comment: Performed at: [address] [id number] Customer Experience Strategist: Juan José Butler PhD, Phone: [phone] By: #### PTT, FIB-C, PT #### [address] [address] USAHepatitis B Surface Antibodyon 05-13-4247Lomvhhtih B Surface AntibodyNon-ReactiveNormal.The [facility] Physician GroupComment on above:Result Comment: Non Reactive: Not immune to HBV infection. Equivocal: Unable to determine if anti-HBs is present at levels consistent with immunity. Reactive: Anti-HBs concentration detected at greater than 10 mIU/mL. Individual is considered to be immune to infection with HBV.Performed By: #### PTT, FIB-C, PT #### [facility] [address] [place] [address] USAHepatitis B Surface Antigenon 67-02-8561EWmHi Screen NegativeNormalNegativeThe [facility] Physician Trace Regional HospitalComment on above:Result Comment: PERFORMED BY: [place] [address] PATHOLOGIST SAW REPAIRER ALEX SALMERON M.D.Performed By: #### PTT, FIB-C, PT #### [place] [address] USAHepatitis B virus core IgM antibody assayOrdered By: Angelo Iglesias on 36-73-3151Bjgxrowfn B Core IgM AntibodyNegativeNegativeLicking Memorial HospitalComment on above:Performed at: [place] [id number] Director: Juan José Butler PhD, Phone: [phone] B virus core antibody assayOrdered By: Angelo Iglesias on 80-55-6217Xqfqrcfmm B Core Total AntibodyNegativeNegativeLicking Memorial HospitalHepatitis C virus IgG Ab [Presence] in Serum or Plasma by ImmunoassayOrdered By: Angelo Iglesias on 55-67-8194VXJ IgG IA QlHepatitis C virus IgG Ab [Presence] in Serum or Plasma by ImmunoassayNon ReactiveLicking Memorial HospitalINR in Platelet poor plasma by Coagulation assayOrdered By: Angelo Iglesias on 31-08-8664QAA Coag (PPP) [Relative time]INR in Platelet poor plasma by Coagulation assayLicking Memorial HospitalComment on above:INR Therapeutic Range A) Pre- and Peroperative OAT started two weeks before surgery. NOT HIP SURGERY: 1.5 - 2.5 HIP SURGERY: 2 - 3B) Primary and secondary prevention of venous THROMBOSIS: 2 - 3C) Active venous thrombosis, pulmonary embolismand prevention of recurrent venous thrombosis: 2 - 3D) Preve ntion of arterial thromboembolismincluding patients with mechanical heart valves: 3 - 4.5ISCN band level [#] QualitativeOrdered By: Loyda Carlos on 25-52-7461JXMB band level Molgen Ql (Bld/Tiss)ISCN band level [#] Qualitative. L[facility] Memorial HospitalIron [Mass/volume] in Serum or PlasmaOrdered By: Loyda Carlos on 55-65-4362Xwgt [Mass/Vol]Iron [Mass/volume] in Serum or Xflaxp61-160RbvgdbwlvLicking Memorial HospitalIron and TIBC Profileon 10-11-2024% Iron Fdfggubarc20.2 %Vslhsp61-17Jpg [facility] Physician GroupComment on above: Order Comment: Comment addPerformed By: #### PTT, FIB-C, PT #### [facility] [address] [place] [address] USAIron [Mass/Vol]118 ug/sFEazjcv64-999Pwi [facility] Physician GroupComment on above:Order Comment: Comment addPerformed By: #### PTT, FIB-C, PT #### [facility] [address] [place] [address] USATotal Iron Binding Kxitqdbu875 ug/oXNmupbs268-720Bvs [facility] Physician GroupComment on above:Order Comment: Comment addPerformed By: #### PTT, FIB-C, PT #### [facility] [address] [place] [address] USATransferrin [Mass/Vol]191 mg/aQKqy842-243Nrc [facility] Physician GroupComment on above:Order Comment: Comment addPerformed By: #### PTT, FIB-C, PT #### [facility] [address] [place] [address] USAKaryotype identification (nominal result)Ordered By: Loyda Carlos on 08-54-6191Zjkiewtee Nom (Unsp spec)Karyotype identification nominalLicking Memorial HospitalLD Lactate Dehydrogenaseon 10-11-2024 LDH Lactate Vzbymkthmvawv833 U/XIrvadu413-421Ikd [facility] Group Comment on above:Order Comment: Comment addPerformed By: #### PTT, FIB-C, PT #### [address] [address] USALactate dehydrogenase [Enzymatic activity/volume] in Serum or Plasma by Lactate to pyOrdered By: Loyda Carlos on 08-40-9981CKY Lactate to pyruvate reaction [Catalytic activity/Vol]Lactate dehydrogenase [Enzymatic activity/volume] in Serum or Plasma by Lactate to bd863-603MvklnvvobLicking Memorial HospitalMagnesiumon 50-03-8789Zxtrfnpuo [Mass/Vol]1.7 mg/dLLow1.9-2.7The [facility] Physician GroupComment on above:Result Comment: PERFORMED BY: [place] [id number] PATHOLOGIST SAW REPAIRER ALEX SALMERON M.D.Performed By: #### BMP, MG, CBC #### [place] [id number] USANo Panel InformationOrdered By: Angelo Iglesias on 93-31-6197Xvdqkhbmd C InterpretationComment.[facility] Comment on above:Not infected with HCV unless early or acute infection issuspected (which may be delayed in an immunocompromisedindividual), or other evidence exists to indicate HCVinfection.Performed at: CB - [facility] [address] [id number] Director: Juan José Butler PhD, Phone: [phone] Thromboplastin Timeon 87-68-0338jFMS Coag (Bld) [Time]27.9 s Suvszw88.1-36.5The [facility] Physician GroupComment on above:Result Comment: A hematocrit value greater than 55% may lead to inaccurate results in coagulation testing. Patients having hematocrit values >55% require a special collection tube for coagulation studies. Please contact the laboratory at [phone] for redraw instructions.Performed By: #### PTT, FIB-C, PT #### [place] [address] USAProthrombin Time INRon 31-13-2832WGT Coag (PPP) [Relative time]0.9 {INR}NormalThe [facility] Physician GroupComment on above:Result Comment: INR Therapeutic Range A) Pre- and [...] patients with mechanical heart valves: 3 - 4.5Performed By: #### PTT, FIB-C, PT #### [facility] [address] [place] [address] USAPT Coag (PPP) [Time]9.9 sNormal9.0-12.9The [facility] Physician GroupComment on above:Result Comment: A hematocrit value greater than 55% may lead to inaccurate results in coagulation testing. Patients having hematocrit values >55% require a special collection tube for coagulation studies. Please contact the laboratory at [phone] for redraw instructions.Performed By: #### PTT, FIB-C, PT #### [facility] [address] [place] [address] USAProthrombin time (PT)Ordered By: Angelo Iglesias on 36-86-0237LO Coag (PPP) [Time]Prothrombin time (PT)9.0-12.9Licking Memorial HospitalComment on above:A hematocrit value greater than 55% may lead to inaccurate results in coagulation testing. Patientshaving hematocrit values >55% require a special collection tube for coagulation studies. Please contact the laboratory at [phone] for redraw instructions.Reticulocyte Counton 16-02-2334Wlhftjkogmwq Number0.035 10*6/uLNormal0.024-0.084The [facility] Physician GroupComment on above:Performed By: #### PTT, FIB-C, PT #### [facility] [address] [place] [address] USAReticulocyte Percent0.9 %Normal0.5-1.5The [facility] Physician GroupComment on above:Performed By: #### PTT, FIB-C, PT #### [facility] [address] [place] [address] USAReticulocytes [#/volume] in BloodOrdered By: Loyda Carlos on 10-87-2499Rrkmivpdgcron (Bld) [#/Vol]Absolute reticulocyte count0.024-0.084 L[facility] HospitalReticulocytes/100 RBC Auto (Bld)Ordered By: Loyda Carlos on 19-32-9856Yhqnwvpzrmdba/100 RBC (Bld)Reticulocyte % auto0.5-1.5 [facility] Defiance Hospitalerum hepatitis B virus surface antibody detectionOrdered By: Angelo Iglesias on 14-08-3222DKV surface Ab Ql (S)Hepatitis B virus surface Ab [Presence] in Serum.[facility] HospitalComment on above:Non Reactive: Not immune to HBV infection. Equivocal: Unable to determine if anti-HBs is present atlevels consistent with immunity. Reactive: Anti-HBs concentration detected at greater than 10 mIU/mL. Individual is considered to be immune to infection with HBV.Serum or plasma hepatitis B virus surface antigen detection by immunoassayOrdered By: Angelo Iglesias on 10-11-2024 HBV surface Ag IA QlHepatitis B virus surface Ag [Presence] in Serum or Plasma by ImmunoassayNegativeMercy Health Defiance Hospitalerum or plasma iron binding capacity measurement (mass/volume)Ordered By: Loyda Carlos on 10-11-2024 Iron binding capacity [Mass/Vol]Iron binding capacity [Mass/volume] in Serum or Ssesas179-860PlvebzfbpMercy Health Defiance Hospitalerum or plasma iron saturation measurement (mass fraction)Ordered By: Loyda Carlos on 00-65-3506Bzhe saturation [Mass fraction]Iron saturation [Mass Fraction] in Serum or Lzlbap83-06CvjqmhhtpMercy Health Defiance Hospitalpecimen source identifiedOrdered By: Loyda Carlos on 24-59-7661Cbmdmgos source Nom (Unsp spec)Specimen source identified.[facility] HospitalComment on above:BLOODThyroid Stimulating Hormoneon 63-63-5857IVJ Qn1.83 m[IU]/LNormal0.45-5.33The [facility] Physician GroupComment on above:Order Comment: Comment addResult Comment: PERFORMED BY: [place] [address] PATHOLOGIST SAW REPAIRER AELX SALMERON M.D.Performed By: #### PTT, FIB-C, PT #### [facility] [address] [place], [place] [address] USAThyrotropin [Units/volume] in Serum or PlasmaOrdered By: Loyda Carlos on 25-55-4828QHR QnThyrotropin [Units/volume] in Serum or Plasma 0.45-5.33L[facility] Memorial HospitalTransferrin [Mass/volume] in Serum or PlasmaOrdered By: Loyda Carlos on 33-03-7362Vwstaixjpaa [Mass/Vol]Transferrin [Mass/volume] in Serum or TtdywxTca344-909GnlqebafwLicking Memorial HospitalVit. B12/Folate Profileon 45-04-7726Rrsgmwsgj (Vitamin B12) [Mass/Vol]542 pg/mLNormal 180-914The [facility] Physician GroupComment on above:Order Comment: Comment add Performed By: #### PTT, FIB-C, PT #### [facility] [address] [place], [place] [address] HVZSycbil56.0 ng/mLNormal>5.9The [facility]ician Group Comment on above:Order Comment: Comment addResult Comment: Folate reference range: >5.9 ng/ml The WHO technical consultation on folate and vitamin b12 deficiencies has determined that folate concentrations less than 4 ng/ml are considered deficient.Performed By: #### PTT, FIB-C, PT #### [facility] [address] [place], [place] [address] USAVitamin B12 ser/plasOrdered By: Loyda Carlos on 10-11-2024 Cobalamin (Vitamin B12) [Mass/Vol]Vitamin B12 ser/ydxo557-536WbvtxwzrrLicking Memorial HospitalaPTT in Platelet poor plasma by Coagulation assayOrdered By: Angelo Iglesias on 98-37-6869kDTL Coag (PPP) [Time]Activated partial thromboplastin time (aPTT) in platelet poor plasma by coagulation a25.1-36.5FFulton County Health CenterComment on above:A hematocrit value greater than 55% may lead to inaccurate results in coagulation testing. Patientshaving hematocrit values >55% require a special collection tube for coagulation studies. Please contact the laboratory at [phone] for redraw instructions.Anisocytosis LM Ql (Bld) Ordered By: Loyda Carlos on 25-24-8659Flzacwgmjwpk Ql (Bld)Anisocytosis [Presence] in Blood by Light microscopyLicking Memorial HospitalCampy coli+jejuni BD MaxOrdered By: Lakesha Haskins on 10-10-2024. coli+jejuni tuf gene ABE+probe Ql (Stl)Campy coli+jejuni BD MaxNegativeLicking Memorial HospitalComment on above:Campylobacter test includes C. jejuni and C. coli. Chloride [Moles/volume] in StoolOrdered By: Loyda Carlos on 03-21-2481Ufgrmdvl (Stl) [Moles/Vol]Chloride [Moles/volume] in Stool.[facility] Memorial HospitalComment on above:INTERPRETIVE INFORMATION: Fecal ChlorideA reference interval has not been established for fecal specimens.This test was developed and its performance characteristicsdetermined by [facility]. It has not been cleared orapproved by the [place] Food and Drug Administration. This test wasperformed in a CLIA certified laboratory and is intended forclinical purposes.Performed at: [facility] [address] [id number] Director: [facility], Phone: [phone] Comprehensive Metabolic Panelon 04-12-1641Yprjzhu [Mass/Vol]2.9 g/dLLow3.5-5.7 The [facility] Physician GroupComment on above:Performed By: #### GLULS #### Point of Care testing ,Albumin/Globulin [Mass ratio]1.5 {ratio}NormalThe [facility] Comment on above:Performed By: #### GLULS #### Point of Care testing ,ALP [Catalytic activity/Vol]48 U/JDndhyq07-279Xdx [facility] Comment on above:Performed By: #### GLULS #### Point of Care testing ,ALT [Catalytic activity/Vol]26 U/LNormal7-52The [facility] Comment on above:Performed By: #### GLULS #### Point of Care testing ,Anion gap [Moles/Vol]7.2 mmol/LNormal6.0-15.0The [facility] Comment on above:Performed By: #### GLULS #### Point of Care testing ,AST [Catalytic activity/Vol]52 U/EPmfc26-12Hfv [facility] GroupComment on above:Performed By: #### GLULS #### Point of Care testing ,Bilirubin [Mass/Vol]0.2 mg/dLLow0.3-1.0The [facility] Physician GroupComment on above:Performed By: #### GLULS #### Point of Care testing ,Calcium [Mass/Vol]7.4 mg/dLLow8.6-10.3The [facility] Physician GroupComment on above:Performed By: #### GLULS #### Point of Care testing ,Chloride [Moles/Vol]115 mmol/BBpko94-382Pgd [facility] Physician GroupComment on above:Performed By: #### GLULS #### Point of Care testing ,CO2 [Moles/Vol]19.4 mmol/LLow21.0-31.0The [facility] Physician GroupComment on above:Performed By: #### GLULS #### Point of Care testing ,Creatinine [Mass/Vol]1.33 mg/dLSignificant change up0.70-1.30The [facility] Physician GroupComment on above:Performed By: #### GLULS #### Point of Care testing ,Creatinine Clr Calc Cdgbmdgm94.57NoAvita Health System Galion Hospital GroupComment on above:Performed By: #### GLULS #### Point of Care testing ,Estimated GFR52.056 mL/MinNoAvita Health System Galion Hospital GroupComment on above: Performed By: #### GLULS #### Point of Care testing ,Globulin (S) [Mass/Vol]1.9 g/dLNoAvita Health System Galion Hospital GroupComment on above:Performed By: #### GLULS #### Point of Care testing ,Glucose [Mass/Vol]105 mg/mUWqdw72-747Vks [facility] Physician GroupComment on above:Result Comment: Random Glucose Reference Range is dependent on time and content of last meal. Glucose of more than 200 mg/dL in a nonstressed, ambulatory subject supports the diagnosis of Diabetes Mellitus. ADA recommended reference rangePerformed By: #### GLULS #### Point of Care testing ,Potassium [Moles/Vol]3.6 mmol/LNormal3.5-5.1The [facility] Comment on above:Performed By: #### GLULS #### Point of Care testing ,Protein [Mass/Vol]4.8 g/dLLow6.4-8.9The [facility] Physician GroupComment on above:Performed By: #### GLULS #### Point of Care testing ,Sodium [Moles/Vol]138 mmol/LRvvkex519-618Cym [facility] Physician Trace Regional HospitalComment on above:Performed By: #### GLULS #### Point of Care testing ,Urea nitrogen [Mass/Vol]21 mg/dLNormal7-25The [facility] Physician GroupComment on above:Performed By: #### GLULS #### Point of Care testing ,Cryptosporidium Antigen Stoolon 04-91-9433Xgerwioukypcbti Antigen StoolNegative NormalNegativeThe Ellwood Medical CenterComment on above:Order Comment: SOURCE OF SPECIMEN: StoolResult Comment: Performed at: [address] [id number] Customer Experience Strategist: Juan José Butler PhD, Phone: [phone] By: #### BMP, MG, CBC #### [place] [address] USACryptosporidium parv+homin BD MaxOrdered By: Loyda Carlos on 10-10-2024. parvum+hominis DNA ABE+probe Ql (Stl)Cryptosporidium parv+homin BD MaxNegativeLicking Memorial HospitalComment on above:Cryptosporidium test includes C. hominis and C. parvum.Cryptosporidium sp Ag [Presence] in Stool by ImmunoassayOrdered By: Loyda Carlos on 76-25-4876Yvvxrpelmanqmbc sp Ag IA Ql (Stl)Cryptosporidium sp Ag [Presence] in Stool by ImmunoassayNegativeLicking Memorial HospitalComment on above:Performed at: [place] [facility] [address] [place], [place] [id number] Director: Juan José Butler PhD, Phone: [phone] histolytica BD MaxOrdered By: Loyda Carlos on 10-10-2024E. histolytica DNA ABE+probe Ql (Stl)Entamoeba histolytica BD MaxNegCleveland Clinic South Pointe HospitalComment on above:Testing performed by RT-PCRErythrocyte morphology finding [Identifier] in BloodOrdered By: Loyda Carlos on 10-10-2024 RBC morphology finding Nom (Bld)RBC morphologyLicking Memorial Hospital Giardia Lamblia Ag EIA Stoolon 98-25-4496Ioeeoau Lamblia Ag EIA StoolNegative NormalNegativeBroward Health Imperial Point Physician GroupComment on above:Order Comment: SOURCE OF SPECIMEN: StoolResult Comment: Performed at: [place] [id number] [place], [place] [id number] Customer Experience Strategist: Juan José Butler PhD, Phone: [phone] PERFORMED BY: [place] [address] PATHOLOGIST SAW REPAIRER ALEX SALMERON M.D.Performed By: #### BMP, MG, CBC #### [place] [address] USAGiardia milian BD MaxOrdered By: Loyda Carlos on 10-10-2024G. lamblia DNA ABE+probe Ql (Stl)Giardia milian BD MaxNegCleveland Clinic South Pointe HospitalGiardia lamblia Ag [Presence] in Stool by ImmunoassayOrdered By: Loyda Carlos on 10-10-2024G. lamblia Ag IA Ql (Stl)Giardia lamblia Ag [Presence] in Stool by ImmunoassayNegCleveland Clinic South Pointe HospitalComment on above:Performed at: [address] [id number] Director: Juan José Butler PhD, Phone: [phone] Poct Glucometerson 20-53-3573Ijzguce [Mass/Vol]134 mg/dLNormNemours Children's Hospital Physician GroupComment on above:Result Comment: Random Glucose Reference Range is dependent on time and content of last meal. Glucose of more than 200 mg/dL in a nonstressed, ambulatory subject supports the diagnosis of Diabetes Mellitus. PERFORMED BY: [place] [address] PATHOLOGIST SAW REPAIRER ALEX SALMERON M.D.Performed By: #### BMP, MG, CBC #### [place] [address] RUMKerundc0Dtv6: Cleaned MeterNoWakeMed North Hospital Physician GroupComment on above:Result Comment: PERFORMED BY: [place] [address] PATHOLOGIST SAW REPAIRER ALEX SALMERON M.D.Performed By: #### GLULS #### Point of Care testing ,Glucose [Mass/Vol]138 mg/dLBaptist Health Bethesda Hospital West Physician GroupComment on above: Result Comment: Random Glucose Reference Range is dependent on time and content of last meal. Glucose of more than 200 mg/dL in a nonstressed, ambulatory subject supports the diagnosis of Diabetes Mellitus.Performed By: #### GLULS #### Point of Care testing ,Xkcdilb7Kel0: Cleaned MeterNoWakeMed North Hospital Physician GroupComment on above: Result Comment: PERFORMED BY: [place] [address] PATHOLOGIST SAW REPAIRER ALEX SALMERON M.D.Performed By: #### GLULS #### Point of Care testing ,Glucose [Mass/Vol]146 mg/dLBaptist Health Bethesda Hospital West Physician GroupComment on above: Result Comment: Random Glucose Reference Range is dependent on time and content of last meal. Glucose of more than 200 mg/dL in a nonstressed, ambulatory subject supports the diagnosis of Diabetes Mellitus.Performed By: #### GLULS #### Point of Care testing ,Glucose [Mass/Vol]99 mg/dLBaptist Health Bethesda Hospital West Physician GroupComment on above: Result Comment: Random Glucose Reference Range is dependent on time and content of last meal. Glucose of more than 200 mg/dL in a nonstressed, ambulatory subject supports the diagnosis of Diabetes Mellitus. PERFORMED BY: [place] [address] PATHOLOGIST SAW REPAIRER ALEX SALMERON M.D.Performed By: #### GLULS #### Point of Care testing ,Iron and TIBC Profileon 10-10-2024% Iron Jbapzxgzxl91.1 %Sij05-14Abt [facility] Physician GroupComment on above:Performed By: #### GLULS #### Point of Care testing ,Iron [Mass/Vol]29 ug/cYXln16-128Gcc [facility]ician Trace Regional HospitalComment on above: Performed By: #### GLULS #### Point of Care testing ,Total Iron Binding Mxthwnkf622 ug/tHDza104-826Rve [facility] Comment on above:Performed By: #### GLULS #### Point of Care testing ,Transferrin [Mass/Vol]147 mg/vEKrv426-617Rxh [facility] Physician GroupComment on above:Performed By: #### GLULS #### Point of Care testing ,Magnesiumon 33-36-7386Qghiiphed [Mass/Vol]1.8 mg/dLLow1.9-2.7The [facility] Physician GroupComment on above:Result Comment: PERFORMED BY: [place] [address] PATHOLOGIST SAW REPAIRER ALEX SALMERON M.D.Performed By: #### GLULS #### Point of Care testing ,Ova and Parasite Panelon 28-61-2935Oqqojqetvmogvmg (C.hominis+parNegativeNormal NegativeThe [facility] Physician GroupComment on above:Result Comment: Cryptosporidium test includes C. hominis and C. parvum.Performed By: #### BMP, MG, CBC #### [place] [address] USAEntamoeba histolyticaNegativeNormalNegativeThe [facility] Physician GroupComment on above:Result Comment: Testing performed by RT-PCR PERFORMED BY: [place] [address] PATHOLOGIST SAW REPAIRER ALEX SALMERON M.D.Performed By: #### BMP, MG, CBC #### [facility] [address] [place] [id number] USAGiardia lambliaNegativeNormalNegativeThe [facility] Physician GroupComment on above:Performed By: #### BMP, MG, CBC #### [facility] [address] [address] [place] [address] USAOvalocytes [Presence] in Blood by Light microscopyOrdered By: Loyda Carlos on 77-78-0802Znwulfynek LM Ql (Bld)Ovalocyte detectionLicking Memorial HospitalPhosphoruson 89-54-2961Dhxscebmh [Mass/Vol]2.4 mg/dLLow 2.5-4.5The [facility] Physician GroupComment on above:Performed By: #### GLULS #### Point of Care testing ,Platelet adequacy [Presence] in Blood by Light microscopyOrdered By: Loyda Carlos on 02-73-7549Xbxtxuiif LM Ql (Bld)Platelet adequacy [Presence] in Blood by Light microscopyNormalLicking Memorial HospitalPlatelet morphology finding [Identifier] in BloodOrdered By: Loyda Carlos on 27-57-2027Sdmfrlqb morphology finding Nom (Bld)Platelet morphology finding [Identifier] in Blood NormalLicking Memorial HospitalPoikilocytosis [Presence] in Blood by Light microscopyOrdered By: Loyda Carlos on 79-72-4500Fyhhikjnkfiouu LM Ql (Bld) Poikilocytosis [Presence] in Blood by Light microscopyLicking Memorial HospitalPotassium [Moles/volume] in StoolOrdered By: Loyda Carlos on 10-10-2024 Potassium (Stl) [Moles/Vol]Potassium [Moles/volume] in Stool.L[facility] Memorial HospitalComment on above:INTERPRETIVE INFORMATION: Fecal PotassiumA reference interval has not been established for fecal specimens.This test was developed and its performance characteristicsdetermined by [facility]. It has not been cleared orapproved by the US Food and Drug Administration. This test wasperformed olga CLIA certified laboratory and is intended forclinical purposes.Salmonellosis BD MaxOrdered By: Lakesha Haskins on 87-39-3101Neiqdxxjhv sp spaO gene ABE+probe Ql (Stl)Salmonella sp spaO gene [Presence] in Stool by ABE with probe detectionNegativeLicking Memorial HospitalComment on above: Testing performed by RT-PCRScan and CBCon 32-49-6146Dqtdmdqqxctk Ql (Bld)Slight NormalThe [facility] Physician GroupComment on above:Performed By: #### GLULS #### Point of Care testing ,Basophils (Bld) [#/Vol]0.0 10*3/uLNormal0.0-0.2[facility] Comment on above:Performed By: #### GLULS #### Point of Care testing ,Basophils/100 WBC (Bld)0.6 %Normal.The [facility] Physician GroupComment on above:Performed By: #### GLULS #### Point of Care testing ,Eosinophils (Bld) [#/Vol]0.0 10*3/uLNormal0.0-0.45[facility] Comment on above:Performed By: #### GLULS #### Point of Care testing ,Eosinophils/100 WBC (Bld)0.5 %Normal.The [facility] Physician GroupComment on above:Performed By: #### GLULS #### Point of Care testing ,Erythrocyte distribution width (RBC) [Ratio]13.7 %Vmkbqo14.0-14.8The [facility] Physician GroupComment on above:Performed By: #### GLULS #### Point of Care testing ,Hematocrit (Bld) [Volume fraction]32.9 %Low38.8-50.0The [facility] Physician GroupComment on above:Performed By: #### GLULS #### Point of Care testing ,Hemoglobin (Bld) [Mass/Vol]11.4 g/dLLow13.0-17.0[facility] Comment on above:Performed By: #### GLULS #### Point of Care testing ,Lymphocytes (Bld) [#/Vol]0.5 10*3/uLLow1.00-4.8[facility] Comment on above:Performed By: #### GLULS #### Point of Care testing ,Lymphocytes/100 WBC (Bld)11.5 %Normal.The [facility] Physician GroupComment on above:Performed By: #### GLULS #### Point of Care testing ,MCH (RBC) [Entitic mass]34.0 cuUlrtpj69.5-35.2[facility] Comment on above:Performed By: #### GLULS #### Point of Care testing ,MCV (RBC) [Entitic vol]97.8 zEKejcvy34.5-101The [facility] Comment on above:Performed By: #### GLULS #### Point of Care testing ,Mean Corpuscular HGB Conc34.8 g/tHThnwie87.5-35.6[facility] Comment on above:Performed By: #### GLULS #### Point of Care testing ,Monocytes (Bld) [#/Vol]0.8 10*3/uLNormal0.0-0.8[facility] Comment on above:Performed By: #### GLULS #### Point of Care testing ,Monocytes/100 WBC (Bld)18.2 %Normal.The [facility] Physician GroupComment on above:Performed By: #### GLULS #### Point of Care testing ,Neutrophils (Bld) [#/Vol]3.2 10*3/uLNormal1.8-7.7[facility]ician [facility] Comment on above:Performed By: #### GLULS #### Point of Care testing ,Neutrophils/100 WBC (Bld)69.2 %Normal.The [facility] Physician GroupComment on above:Performed By: #### GLULS #### Point of Care testing ,NRBC%0.1 /100{WBC}Normal0-0.5The [facility] Physician GroupComment on above: Performed By: #### GLULS #### Point of Care testing ,OvalocytesSlightNormNemours Children's Hospital Physician GroupComment on above:Performed By: #### GLULS #### Point of Care testing ,Platelet EstimateDecreasedNormalNormNemours Children's Hospital Physician GroupComment on above:Performed By: #### GLULS #### Point of Care testing ,Platelet mean volume (Bld) [Entitic vol]8.3 fLNormal6.6-10.1The [facility] Physician GroupComment on above:Performed By: #### GLULS #### Point of Care testing ,Platelet MorphologyNormalNormalBaptist [facility] Physician GroupComment on above:Result Comment: PERFORMED BY: [facility] [place] [address] PATHOLOGIST SAW REPAIRER ALEX SALMERON M.D.Performed By: #### GLULS #### Point of Care testing ,Platelets (Bld) [#/Vol]71 10*3/uLSignificant change yvgc173-749Wol [facility] Physician GroupComment on above:Performed By: #### GLULS #### Point of Care testing ,PoikilocytosisSlightBaptist Health Bethesda Hospital West Physician GroupComment on above: Performed By: #### GLULS #### Point of Care testing ,RBC (Bld) [#/Vol]3.37 10*6/uLLow3.90-5.60The [facility] Physician GroupComment on above:Performed By: #### GLULS #### Point of Care testing ,Toxic VacuolationSlightBaptist Health Bethesda Hospital West Physician GroupComment on above: Performed By: #### GLULS #### Point of Care testing ,WBC (Bld) [#/Vol]4.6 10*3/uLNormal4.1-10.5The [facility] Physician GroupComment on above:Performed By: #### GLULS #### Point of Care testing ,Shigella Tox 1+2 BD MaxOrdered By: Lakesha Haskins on 10-10-2024E. coli stx1+stx2 genes ABE+probe Ql (Stl)Escherichia coli Stx1 and Stx2 toxin stx1+stx2 genes [Presence] in Stool by ABE withNegativeLicking Memorial Hospital Shigellosis BD MaxOrdered By: Lakesha Haskins on 98-05-2913Oaxemrhl species+EIEC invasion plasmid antigen H ipaH gene ABE+probe Ql (Stl)Shigella species+EIEC invasion plasmid antigen H ipaH gene [Presence] in Stool by NAANegativeLicking Memorial HospitalComment on above:Shigella sp. test includes Shigella species and Enteroinvasive E. coli (EIEC).Sodium [Moles/volume] in StoolOrdered By: Loyda Carlos on 53-11-8701Bzcvez (Stl) [Moles/Vol]Sodium [Moles/volume] in Stool.Licking Memorial HospitalComment on above:INTERPRETIVE INFORMATION: Fecal SodiumA reference interval has not been established for fecal specimens.This test was developed and its performance characteristicsdetermined by [facility]. It has not been cleared orapproved by the US Food and Drug Administration. This test wasperformed in a CLIA certified laboratory and is intended forclinical purposes.Stool Bacterial Panelon 18-53-9567Srwdrsnjyeztj NegativeNormalNegativeThe [facility] Physician GroupComment on above:Result Comment: Campylobacter test includes C. jejuni and C. coli.Performed By: #### GLULS #### Point of Care testing ,Salmonella SpeciesNegativeNormalNegativeThe [facility] Physician GroupComment on above:Result Comment: Testing performed by RT-PCR PERFORMED BY: [facility] [address] [facility] [place] [address] PATHOLOGIST SAW REPAIRER ALEX SALMERON M.D.Performed By: #### GLULS #### Point of Care testing ,Shiga Toxin (E coli O157+oth)NegativeNormalNegativeBroward Health Imperial Point Physician GroupComment on above:Performed By: #### GLULS #### Point of Care testing ,Shigella SpeciesNegativeNormalNegativeThe [facility] Physician GroupComment on above:Result Comment: Shigella sp. test includes Shigella species and Enteroinvasive E. coli (EIEC).Performed By: #### GLULS #### Point of Care testing ,Stool Electrolyteson 89-05-9350Sjoyoh Stool<20Normal.The [facility] Physician GroupComment on above:Result Comment: INTERPRETIVE INFORMATION: Fecal Sodium A reference interval has not been established for fecal specimens. This test was developed and its performance characteristics determined by [facility]. It has not been cleared or approved by the US Food and Drug Administration. This test was performed in a CLIA certified laboratory and is intended for clinical purposes.Performed By: #### BMP, MG, CBC #### [facility] [address] [place] [id number] USAStool Chloride<20Normal.[facility] Comment on above:Result Comment: INTERPRETIVE INFORMATION: Fecal Chloride A reference interval has not been established for fecal specimens. This test was developed and its performance characteristics determined by [facility]. It has not been cleared or approved by the US Food and Drug Administration. This test was performed in a CLIA certified laboratory and is intended for clinical purposes. Performed at: [facility] [address] [id number] Customer Experience Strategist: [facility], Phone: [phone] By: #### [place] MG, CBC #### [place] [address] USAStool Amefvxzgy49 mmol/LNormal.The [facility] Physician GroupComment on above:Result Comment: INTERPRETIVE INFORMATION: Fecal Potassium A reference interval has not been established for fecal specimens. This test was developed and its performance characteristics determined by [facility]. It has not been cleared or approved by the US Food and Drug Administration. This test was performed in a CLIA certified laboratory and is intended for clinical purposes. PERFORMED BY: [place] [address] PATHOLOGIST SAW REPAIRER ALEX SALMERON M.D.Performed By: #### BMP MG, CBC #### [place] [id number] USAThyroid Stimulating Hormoneon 26-57-3221IXV Qn1.35 m[IU]/L Normal0.45-5.33The [facility] Physician GroupComment on above:Result Comment: PERFORMED BY: [place] [address] PATHOLOGIST SAW REPAIRER ALEX SALMERON M.D.Performed By: #### GLULS #### Point of Care testing ,Toxic leukocyte vacuolation detectionOrdered By: Loyda Carlos on 10-10-2024 Leukocyte toxic vacuoles LM Ql (Bld)Toxic leukocyte vacuolation detection Licking Memorial HospitalVit. B12/Folate Profileon 59-73-0308Qfuxshkzf (Vitamin B12) [Mass/Vol]472 pg/eALpfaxh488-976Rfh [facility] Comment on above:Performed By: #### GLULS #### Point of Care testing ,Ajholh11.7 ng/mLNormal>5.9The [facility] Physician GroupComment on above:Result Comment: Folate reference range: >5.9 ng/ml The WHO technical consultation on folate and vitamin b12 deficiencies has determined that folate concentrations less than 4 ng/ml are considered deficient.Performed By: #### GLULS #### Point of Care testing ,A1C with Estimated Average Gluon 78-90-7181Bgziwjd [Mass/Vol]160 mg/dLNormalThe [facility] Physician GroupComment on above:Result Comment: PERFORMED BY: [place] [address] PATHOLOGIST SAW REPAIRER ALEX SALMERON M.D.Performed By: #### GLULS #### Point of Care testing ,HbA1c (Bld) [Mass fraction]7.2 %High4.3-5.6The [facility] Physician GroupComment on above:Result Comment: Increased risk for diabetes: 5.7 - 6.4 diabetes: >6.4 glycemic control for adults with diabetes: <7.0Performed By: #### GLULS #### Point of Care testing ,Blood estimated average glucose determination by estimation from glycated hemoglobinOrdered By: Lakesha Haskins on 77-28-8378Omwmgxp glucose Estimated from glycated hemoglobin (Bld) [Mass/Vol]Glucose mean value [Mass/volume] in Blood Estimated from glycated hemoglobinLicking Memorial HospitalCT abdomen pelvis wo conon 78-37-1458ZG abdomen pelvis wo [facility] [place] [address] CT Scan Report Signed Patient: Jose L Ames MR#: [id number] : 1940 Acct:[id number] Age/Sex: 84 / M ADM Date: 10/09/24 Loc: Room: [address] [place] [address] Type: ADM IN Attending Dr: Loyda Carlos [...] Pascual Harris M.D.10/09/2024 4:57 PM Dictation Location: [place] [address] Transcribed By: [facility] 10/09/24 1657 Dictated By: Pascual Harris DO 10/09/24 1645 Signed By: 10/09/24 [facility] Physician GroupClostridioides difficile toxin B tcdB gene [Presence] in Stool by ABE with probe deteOrdered By: Lakesha Haskins on 10-09-2024. difficile toxin B tcdB gene ABE+probe Ql (Stl)Clostridioides difficile toxin B tcdB gene [Presence] in Stool by ABE with probe deteNegative Licking [facility] HospitalComment on above:Testing performed by RT-PCR Clostridium Difficileon 62-43-2785Xnrogczvkck DifficileNegativeNormalNegativeThe [facility] Physician GroupComment on above:Order Comment: > or = to 3 loose/watery stools in the last 24 HRS? Y Is patient on promotility agents or tube feeding? NResult Comment: Testing performed by RT-PCR PERFORMED BY: [address] [place] [address] PATHOLOGIST SAW REPAIRER ALEX SALMERON M.D.Performed By: #### GLULS #### Point of Care testing ,Complete Blood Count Auto Diffon 77-46-5409Zjhhyxhqa (Bld) [#/Vol]0.0 10*3/uL Normal0.0-0.2The [facility] Medical CenterComment on above:Result Comment: PERFORMED BY: [address] [place] [address] PATHOLOGIST SAW REPAIRER ALEX SALMERON M.D.Performed By: #### GLULS #### Point of Care testing ,Basophils/100 WBC (Bld)0.4 %Normal.The [facility] Physician GroupComment on above:Performed By: #### GLULS #### Point of Care testing ,Eosinophils (Bld) [#/Vol]0.1 10*3/uLNormal0.0-0.45[facility] Comment on above:Performed By: #### GLULS #### Point of Care testing ,Eosinophils/100 WBC (Bld)1.3 %Normal.The [facility] Physician GroupComment on above:Performed By: #### GLULS #### Point of Care testing ,Erythrocyte distribution width (RBC) [Ratio]13.9 %Gnzkgv82.0-14.8The [facility] Physician GroupComment on above:Performed By: #### GLULS #### Point of Care testing ,Hematocrit (Bld) [Volume fraction]36.0 %Low38.8-50.0The [facility] Physician GroupComment on above:Performed By: #### GLULS #### Point of Care testing ,Hemoglobin (Bld) [Mass/Vol]12.5 g/dLLow13.0-17.0[facility] Comment on above:Performed By: #### GLULS #### Point of Care testing ,Lymphocytes (Bld) [#/Vol]0.4 10*3/uLLow1.00-4.8The [facility] Comment on above:Performed By: #### GLULS #### Point of Care testing ,Lymphocytes/100 WBC (Bld)3.5 %Normal.The [facility] Physician GroupComment on above:Performed By: #### GLULS #### Point of Care testing ,MCH (RBC) [Entitic mass]33.9 ukIapeik50.5-35.2The [facility] Comment on above:Performed By: #### GLULS #### Point of Care testing ,MCV (RBC) [Entitic vol]97.8 dFYnvjbv27.5-101The [facility] Comment on above:Performed By: #### GLULS #### Point of Care testing ,Mean Corpuscular HGB Conc34.7 g/cOKzluho27.5-35.6The [facility] Comment on above:Performed By: #### GLULS #### Point of Care testing ,Monocytes (Bld) [#/Vol]1.0 10*3/uLHigh0.0-0.8[facility] Comment on above:Performed By: #### GLULS #### Point of Care testing ,Monocytes/100 WBC (Bld)8.9 %Normal.The [facility] Physician GroupComment on above:Performed By: #### GLULS #### Point of Care testing ,Neutrophils (Bld) [#/Vol]9.8 10*3/uLHigh1.8-7.7The [facility] Comment on above:Performed By: #### GLULS #### Point of Care testing ,Neutrophils/100 WBC (Bld)85.9 %Normal.The [facility] Physician GroupComment on above:Performed By: #### GLULS #### Point of Care testing ,NRBC%0.1 /100{WBC}Normal0-0.5The [facility] Physician GroupComment on above: Performed By: #### GLULS #### Point of Care testing ,Platelet mean volume (Bld) [Entitic vol]9.3 fLNormal6.6-10.1The [facility] Physician GroupComment on above:Performed By: #### GLULS #### Point of Care testing ,Platelets (Bld) [#/Vol]102 10*3/gGPkw114-537Eui [facility] Comment on above:Performed By: #### GLULS #### Point of Care testing ,RBC (Bld) [#/Vol]3.69 10*6/uLLow3.90-5.60The [facility] Physician GroupComment on above:Performed By: #### GLULS #### Point of Care testing ,WBC (Bld) [#/Vol]11.4 10*3/uLHigh4.1-10.5The [facility] Physician GroupComment on above:Performed By: #### GLULS #### Point of Care testing ,Comprehensive Metabolic Panelon 15-05-7442Ndkpbej [Mass/Vol]3.3 g/dLLow3.5-5.7 The [facility] Physician GroupComment on above:Performed By: #### GLULS #### Point of Care testing ,Albumin/Globulin [Mass ratio]1.6 {ratio}NormalThe [facility] Comment on above:Performed By: #### GLULS #### Point of Care testing ,ALP [Catalytic activity/Vol]50 U/DVlzadh91-076Asw [facility] Comment on above:Performed By: #### GLULS #### Point of Care testing ,ALT [Catalytic activity/Vol]25 U/LNormal7-52The [facility] Comment on above:Performed By: #### GLULS #### Point of Care testing ,Anion gap [Moles/Vol]12.0 mmol/LNormal6.0-15.0The [facility] Comment on above:Performed By: #### GLULS #### Point of Care testing ,AST [Catalytic activity/Vol]48 U/VSgzf16-70Cjw [facility] Physician GroupComment on above:Performed By: #### GLULS #### Point of Care testing ,Bilirubin [Mass/Vol]0.4 mg/dLNormal0.3-1.0The [facility] Physician GroupComment on above:Performed By: #### GLULS #### Point of Care testing ,Calcium [Mass/Vol]7.7 mg/dLLow8.6-10.3The [facility] Physician GroupComment on above:Performed By: #### GLULS #### Point of Care testing ,Chloride [Moles/Vol]110 mmol/RXwks97-804Vcr [facility] Physician GroupComment on above:Performed By: #### GLULS #### Point of Care testing ,CO2 [Moles/Vol]22.5 mmol/LNfjpcm44.0-31.0The [facility] Physician GroupComment on above:Performed By: #### GLULS #### Point of Care testing ,Creatinine [Mass/Vol]2.23 mg/dLHigh0.70-1.30[facility] Comment on above:Performed By: #### GLULS #### Point of Care testing ,Creatinine Clr Calc Zsoudhgx29.12[facility] GroupComment on above:Performed By: #### GLULS #### Point of Care testing ,Estimated GFR27.998 mL/MinNoAvita Health System Galion Hospital GroupComment on above: Performed By: #### GLULS #### Point of Care testing ,Globulin (S) [Mass/Vol]2.1 g/dLNorthern Light Acadia Hospital GroupComment on above:Performed By: #### GLULS #### Point of Care testing ,Glucose [Mass/Vol]185 mg/sPNiri85-474Xzf [facility] Physician GroupComment on above:Result Comment: Random Glucose Reference Range is dependent on time and content of last meal. Glucose of more than 200 mg/dL in a nonstressed, ambulatory subject supports the diagnosis of Diabetes Mellitus. ADA recommended reference rangePerformed By: #### GLULS #### Point of Care testing ,Potassium [Moles/Vol]4.5 mmol/LNormal3.5-5.1The [facility] Comment on above:Performed By: #### GLULS #### Point of Care testing ,Protein [Mass/Vol]5.4 g/dLLow6.4-8.9The [facility] Physician GroupComment on above:Performed By: #### GLULS #### Point of Care testing ,Sodium [Moles/Vol]140 mmol/XQxtctb037-756Yfw [facility] Physician GroupComment on above:Performed By: #### GLULS #### Point of Care testing ,Urea nitrogen [Mass/Vol]37 mg/dLHigh7-25The [facility] Physician GroupComment on above:Performed By: #### GLULS #### Point of Care testing ,ECG 12 lead ECGon 55-51-9704ZNP 12 lead ECGUNIVERSITY H[facility]ALS [facility] [address] Electrocardiograph Report Signed Patient: Jose L Ames MR#: [id number] : 1940 Acct:[id number] Age/Sex: 84 / M ADM Date: 10/09/24 Loc: Room: [address] [place] [address] Type: ADM IN Attending Dr: Javier Murray [...] compared with ECG of 09-Oct-2024 19:38, (Unconfirmed) MO interval has increased Confirmed by [facility] ([id number] on 10/12/2024 6:24:02 PM Referred By: Electronically Signed By: VIET HALL MD [facility] Transcribed By: MUS Signed By Viet Hall MD, [facility] 10/12/[address] [place] [address] Physician GroupECG 12 lead ECGUNIVERSITY HOSPITALS [facility] Main [address] [address] Electrocardiograph Report Signed Patient: Jose L Ames MR#: [id number] : 1940 Acct:[id number] Age/Sex: 84 / M ADM Date: 10/09/24 Loc: Room: [address] [place] [address] Type: ADM IN Attending Dr: Javier Murray [...] axis shifted right Confirmed by [facility] ([facility] on 10/12/2024 6:23:20 PM Referred By: Electronically Signed By: VIET HALL MD [facility] Transcribed By: MUS Signed By Viet Hall MD, [facility] 10/12/[address] [place] [address] Physician GroupECH echo transthoracicon 67-34-4395KKT echo transthoracicUNIVERSITY HOSPITALS [facility]EV[facility] Main [address] [address] Echocardiogram Signed Patient: Jose L Ames MR#: [id number] : 1940 Acct:[id number] Age/Sex: 84 / M ADM Date: 10/09/24 Loc: Room: [address] [place] [address] Type: ADM IN Attending Dr: Loyda Carlos MD Ordering Provider: Lakesha Haskins APRN Date of Service: 10/09/2403/26/500 [facility] echo transthoracic: syncope Copies to: MD Lakesha Mccullough, PLSQL DEVELOPER BSA: 2.3 m2 BP: 105/56 mmHg HR: [...] 0901 Signed By: Liz Plata MD 10/09/24 1558NoW[facility]Med [facility] Hospital Physician GroupGlucose Poct Glucometerson 91-16-4722Yeogkjv [Mass/Vol]137 mg/dLBaptist Health Bethesda Hospital West Physician GroupComment on above:Result Comment: Random Glucose Reference Range is dependent on time and content of last meal. Glucose of more than 200 mg/dL in a nonstressed, ambulatory subject supports the diagnosis of Diabetes Mellitus. PERFORMED BY: [address] [address] PATHOLOGIST SAW REPAIRER ALEX SALMERON M.D.Performed By: #### GLULS #### Point of Care testing ,Glucose [Mass/Vol]133 mg/dLBaptist Health Bethesda Hospital West Physician GroupComment on above: Result Comment: Random Glucose Reference Range is dependent on time and content of last meal. Glucose of more than 200 mg/dL in a nonstressed, ambulatory subject supports the diagnosis of Diabetes Mellitus. PERFORMED BY: [place] [id number] PATHOLOGIST SAW REPAIRER ALEX SALMERON M.D.Performed By: #### GLULS #### Point of Care testing ,Fuazfhz6Mnm2: Cleaned MeterNoWakeMed North Hospital Physician GroupComment on above: Result Comment: PERFORMED BY: [address] [address] PATHOLOGIST SAW REPAIRER ALEX SALMERON M.D.Performed By: #### GLULS #### Point of Care testing ,Glucose [Mass/Vol]156 mg/dLBaptist Health Bethesda Hospital West Physician GroupComment on above: Result Comment: Random Glucose Reference Range is dependent on time and content of last meal. Glucose of more than 200 mg/dL in a nonstressed, ambulatory subject supports the diagnosis of Diabetes Mellitus.Performed By: #### GLULS #### Point of Care testing ,Yyhzgcw9Nhu2: Cleaned MeterNormNemours Children's Hospital Physician GroupComment on above: Result Comment: PERFORMED BY: [place] [address] PATHOLOGIST SAW REPAIRER ALEX SALMERON M.D.Performed By: #### GLULS #### Point of Care testing ,Glucose [Mass/Vol]192 mg/dLBaptist Health Bethesda Hospital West Physician GroupComment on above: Result Comment: Random Glucose Reference Range is dependent on time and content of last meal. Glucose of more than 200 mg/dL in a nonstressed, ambulatory subject supports the diagnosis of Diabetes Mellitus.Performed By: #### GLULS #### Point of Care testing ,Hemoglobin A1c/Hemoglobin.total in BloodOrdered By: Lakesha Haskins on 10-09-2024 HbA1c (Bld) [Mass fraction]Hemoglobin A1c percentageHigh4.3-5.6FFulton County Health CenterComment on above:Increased risk for diabetes: 5.7 - 6.4diabetes: >6.4glycemic control for adults with diabetes: <7.0Magnesiumon 38-94-9075Tzgfdsurr [Mass/Vol]1.9 mg/dLNormal1.9-2.7The [facility] Physician GroupComment on above:Performed By: #### GLULS #### Point of Care testing ,US carotid doppler BIon 35-69-8965YO carotid doppler [facility] [address] [place] [id number] Ultrasound Report Signed Patient: Jose L Ames MR#: [id number] : 1940 Acct:[id number] Age/Sex: 84 / M ADM Date: 10/09/24 Loc: Room: 1N3048-3 Type: ADM IN Attending Dr: Loyda Carlos MD Ordering Provider: Lakesha Haskins APRN Date of Service: 10/09/24 US/US carotid doppler BI: syncope Copies to: Mohamad Terrance, MD Lakesha G Haskins, PLSQL DEVELOPER CAROTID DUPLEX INDICATION: Altered mental status, slurred [...] Dean Barnard MD10/09/2024 9:26 AM Dictation [facility]: Sunita Box Transcribed By: KAYLEIGH 10/09/24925 Dictated By: Dean Barnard MD 10/09/24925 Signed By: 10/09/24 0926NormNemours Children's Hospital Physician GroupVitamin D 25 Hydroxy Totalon 60-83-7386Mfkytvp D 25 Hydroxy Total56.5 ng/iZDaqzwo74-842Ypi [facility] HospitalComment on above:Result Comment: VITAMIN D STATUS 25(OH)VITAMIN D RANGE (ng/mL) Deficient <20 Insufficient 20 to <30 Sufficient 30 to 100 Reference: Ritu Devries, James SIMON et al. Evaluation,treatment, and prevention of vitamin D deficiency; an Endocrine Society clinical practice guideline. JCEM. 2010; 96(7):1911-30. PERFORMED BY: [place] [address] [place] [address] PATHOLOGIST SAW REPAIRER ALEX SALMERON M.D.Performed By: #### GLULS #### Point of Care testing ,Vitamin D+Metabolites [Mass/volume] in Serum or PlasmaOrdered By: Lakesha Haskins on 28-30-2775Sjcscdb D+Metabolites [Mass/Vol]Vitamin D+Metabolites [Mass/volume] in Serum or Hhkehu28-176VysjkgwmtLicking Memorial HospitalComment on above: VITAMIN D STATUS 25(OH)VITAMIN D RANGE (ng/mL) Deficient <20 Insufficient 20 to <39Ccqqumrlar79 to 100Reference: Ritu Devries Bischoff-Ferrari HA, et al. Evaluation,treatment, and prevention of vitamin D deficiency; an Endocrine Society clinical practice guideline. JCEM. 2010; 96(7):1911-30.Basophils Auto (Bld) [#/Vol]on 75-07-4248Vebdltufw (Bld) [#/Vol]Automated basophil count 0.0-0.1FFulton County Health CenterBasophils/100 WBC Auto (Bld)on 84-47-2939Konkaunep/100 WBC (Bld)Automated basophil %Low0.2-2.0[facility] HospitalEosinophils/100 WBC Auto (Bld)on 10-08-2024 Eosinophils/100 WBC (Bld)Automated eosinophil %Low0.9-7.0[facility] HospitalErythrocyte distribution width Auto (RBC) [Ratio]on 10-08-2024 Erythrocyte distribution width (RBC) [Ratio]Erythrocyte distribution width [Ratio] by Automated count11.0-15.0[facility] HospitalEstimated glomerular filtration rate (GFR) non- Americanon 91-56-8792VNA/1.73 sq M.predicted among non-blacks MDRD (S/P/Bld) [Vol rate/Area]Estimated glomerular filtration rate (GFR) non- AmericanLow>=60 mL/min/1.73m 2FFulton County Health CenterGlobulin Calc (S) [Mass/Vol]on 78-94-5205Tlylxutb (S) [Mass/Vol]Serum globulin measurement by calculation (mass/volume)[facility] HospitalHematocrit Auto (Bld) [Volume fraction]on 10-08-2024 Hematocrit (Bld) [Volume fraction]Hematocrit [Volume Fraction] of Blood by Automated count42.0-54.0[facility] HospitalHemoglobin [Mass/volume] in Bloodon 00-72-2482Rbllifqanf (Bld) [Mass/Vol]Hemoglobin [Mass/volume] in Blood14.0-18.0L[facility] HospitalINR in Platelet poor plasma by Coagulation assayon 12-09-8033FYY Coag (PPP) [Relative time]INR in Platelet poor plasma by Coagulation assayLicking Memorial Hospital Comment on above:DESIRED INR:2.0-3.0 CONDITIONS NOT LISTED BELOW2.5-3.5 FOR PROSTHETIC HEART VALVE REPLACEMENT2.5-3.5 RECURRENT THROMBOSISLaboratory - Chemistry and Chemistry - challengeon 26-49-6995Bqfvusd [Moles/Vol]0.7 mmol/L 0.4-2.0[facility] HospitalBilirubin Ql (U)SMALLAbnormalNEGATIVE [facility] HospitalGlucose (U) [Mass/Vol]NegativeNEGATIVELicking Memorial HospitalKetones Ql (U)TRACE mg/dLAbnormalNEGATIVELicking Memorial HospitalpH (U)5.5 [pH]5.0-9.0[facility] Specific gravity (U) [Rel density]>=1.914Utijjnfd9.005-1.025L[facility] Memorial HospitalUrobilinogen Qn (U)0.2 {Zeb'U}/dL0.2-1.0[facility] HospitalAlbumin [Mass/Vol]3.5 g/dL3.4-5.0[facility] ALP [Catalytic activity/Vol]84 U/U70-965ImfqudmhdLicking Memorial HospitalALT [Catalytic activity/Vol]20 U/X69-39FlrzcxrifLicking Memorial HospitalAST [Catalytic activity/Vol]17 U/T25-45VngevedvnLicking Memorial HospitalBilirubin [Mass/Vol]0.7 mg/dL0.2-1.0[facility] HospitalCalcium [Mass/Vol]8.2 mg/dLLow8.5-10.1FFulton County Health CenterChloride [Moles/Vol]102 mmol/L 98-107L[facility] HospitalCO2 [Moles/Vol]16.1 mmol/LLow21.0-32.0 [facility] HospitalCreatinine [Mass/Vol]3.09 mg/dLHigh0.70-1.30 [facility] HospitalGFR/1.73 sq M.predicted MDRD (S/P/Bld) [Vol rate/Area]23 mL/min/{1.73_m2}Low>=60 mL/min/1.73m 2FFulton County Health CenterGlucose [Mass/Vol]309 mg/xTBbeq49-926HjaqrmilvLicking Memorial Hospital Potassium [Moles/Vol]4.4 mmol/L3.5-5.1FFulton County Health CenterProtein [Mass/Vol]6.6 g/dL6.4-8.2FAvita Health System Galion Hospitalodium [Moles/Vol]137 mmol/B315-685EtmjqynzjLicking Memorial HospitalUrea nitrogen [Mass/Vol]43.0 mg/dL High7.0-18.0[facility] HospitalUrea nitrogen/Creatinine [Mass ratio]13.9 mg/mgLicking Memorial HospitalLaboratory - Hematology and Cell countson 34-74-5478Ktpjdgrz granulocytes/100 WBC (Bld)0.6 %High0.0-0.5 [facility] HospitalLaboratory - Microbiology and Antimicrobial susceptibilityon 65-27-5233TDMG-CoV-2 (COVID-19) RNA ABE+probe Ql (Unsp spec) NegativeNEGATIVELicking Memorial HospitalComment on above:This test has not been FDA cleared or approved, but has beenauthorized by the FDA under an Emergency Use Authorization(EUA) for use by authorized laboratories certified underIA that meet the requirements to perform moderate or highcomplexity testing. This test has been authorized only forthe detection of proteins from SARS-CoV-2, not for any otherviruses or pathogens. The emergency use of this t est isauthorized for the duration of the declaration thatcircumstances exist justifying the authorization ofemergency use of in vitro diagnostic tests for detectionand/or diagnosis of Covid-19 under section 564(b)(1) of theAct, 21 U.S.C. 360bbb-3(b)(1), unless the declaration isterminated or authorization is revoked sooner.Laboratory - Specimen informationon 84-39-7447Kdnwfusyrx (U)[facility] County HospitalColor (U)DK. YELLOWYELLOWLicking Memorial HospitalLaboratory - Urinalysison 42-82-9106Doopxyfaa esterase Test strip Ql (U)NegativeNEGATIVELicking Memorial HospitalNitrite Ql (U) NegativeNEGATIVELicking Memorial HospitalProtein Ql (U)30 mg/dLAbnormal NEG/TRACELicking Memorial HospitalLeukocytes [#/volume] corrected for nucleated erythrocytes in Blood by Automated counon 21-18-4870WFM corrected for nucl RBC Auto (Bld) [#/Vol]Leukocytes [#/volume] corrected for nucleated erythrocytes in Blood by Automated counHigh4.0-11.0[facility] HospitalLymphocytes Auto (Bld) [#/Vol]on 71-29-9122Fdxqtfyctni (Bld) [#/Vol] Lymphocytes [#/volume] in Blood by Automated countLow1.2-3.8L[facility] HospitalLymphocytes/100 WBC Auto (Bld)on 66-86-5721Wutklqhdygy/100 WBC (Bld)Lymphocytes/100 leukocytes in Blood by Automated yklvkJlf61.5-60.0[facility] CenterH Auto (RBC) [Entitic mass]on 66-48-5419RMR (RBC) [Entitic mass]MCH [Entitic mass] by Automated rwvmnKikl66.9-34.0[facility] CenterHC Auto (RBC) [Mass/Vol]on 23-87-7907SRHR (RBC) [Mass/Vol]MCHC [Mass/volume] by Automated count29.9-35.2FFulton County Health CenterMCV Auto (RBC) [Entitic vol]on 76-14-1564BIT (RBC) [Entitic vol] MCV [Entitic volume] by Automated cmnoeEtuk20.0-94.0[facility] HospitalMonocytes Auto (Bld) [#/Vol]on 08-22-8645Bdcblzqbd (Bld) [#/Vol]Automated blood monocyte count0.3-0.8[facility] HospitalMonocytes/100 WBC Auto (Bld)on 75-39-2569Eokaoqrid/100 WBC (Bld)Automated monocyte %1.7-12.0 [facility] HospitalNeutrophils Auto (Bld) [#/Vol]on 10-08-2024 Neutrophils (Bld) [#/Vol]Neutrophils [#/volume] in Blood by Automated countHigh 1.4-6.5FFulton County Health CenterNeutrophils/100 WBC Auto (Bld)on 85-94-5898Ejxfktqgnmk/100 WBC (Bld)Automated neutrophil %High43.0-75.0[facility] HospitalNo Panel Informationon 48-80-5669Mjoru Microscopic Review Genesis HospitalUrine Occult BloodNegativeNEGATIVELicking Memorial HospitalBedside Influenza Type A AntigenNegativeLicking Memorial HospitalComment on above:Negative for Flu A protein antigen. Infection due to Flu Acannot be ruled out. Flu A antigen in thesample may bebelow the detection limit of the test.Bedside Influenza Type B AntigenNegative [facility] HospitalComment on above:Negative for Flu B protein antigen. Infection due to Flu Bcannot be ruled out. Flu B antigen in thesample may bebelow the detection limit of the test.Eosinophils # (Auto)0.0 10 3/uL 0.0-0.7FFulton County Health CenterEthyl Alcohol Level<3 mg/dLLicking Memorial HospitalComment on above:NOTE: 80 mg/dl is the legal limit for a blood alcohol levelImmature Granulocyte # (Auto)0.11 10 3/uLHigh0.00-0.03 [facility] HospitalTroponin I High Tncjwiyurgp82.7 pg/mL4.0-76.1 [facility] HospitalComment on above:CUT-OFF POINTS HAVE BEEN ESTABLISHED BASED ON THE FOURTHUNIVERSAL DEFINITION OF MYOCARDIAL INFARCTION. THE UPPERREFERENCE LIMIT (URL) OF TROPONIN, DEFINED THE 99THPERCENTILE OF cTnI DISTRIBUTION IN A REFERENCE POPULATION,HAS BEEN CONFIRMED THE DECISION THRESHOLD FOR MIDIAGNOSIS.99TH PERCENTILE = 76.2 PG/MLNOTE: HIGH-SENSITIVITY TROPONIN ASSAY IS NOT INTENDED TO BEUSED IN ISOLATION BUT SHOULD BE INTERPRETED IN CONJUNCTIONWITH OTHER DIAGNOSTIC AND CLINICAL INFORMATION.Platelet mean volume Auto (Bld) [Entitic vol]on 42-96-3642Oiajcbjn mean volume (Bld) [Entitic vol]Platelet mean volume [Entitic volume] in Blood by Automated count9.5-13.5 [facility] HospitalPlatelets Auto (Bld) [#/Vol]on 10-08-2024 Platelets (Bld) [#/Vol]Platelets [#/volume] in Blood by Automated countLow 150-450L[facility] HospitalProthrombin time (PT)on 05-41-6020OT Coag (PPP) [Time]Prothrombin time (PT)9.0-11.6FFulton County Health Center RBC Auto (Bld) [#/Vol]on 78-78-9298GZY (Bld) [#/Vol]Erythrocytes [#/volume] in Blood by Automated countLow4.70-6.10[facility] Hospitalerum or plasma albumin/globulin mass ratioon 02-15-9831Igiwybv/Globulin [Mass ratio] Serum or plasma albumin/globulin mass ratioLicking Memorial Hospital Serum or plasma anion gap determinationon 04-16-6106Oqvae gap [Moles/Vol]Serum or plasma anion gap determinationLicking Memorial HospitalProvider Letteron 38-19-9204Wecgzbfl LetterProvider Letter October 07, 2024 JOSE L AMES [address] [place] [id number] : 1940 Dear Mr. Ames, We have been trying to reach you with no success. You have an appointment with Dr Baez on October 14 on which will need to be rescheduled since his schedule has changed that day. We have options with his talent assistant/nurse practitioner. Please contact the office at the number listed below to get thisappointment rescheduled at your earliest convenience. Thank you for your prompt attention to this matter. Call [phone] option3 as soon as possible to be rescheduled. Sincerely, [facility] HospitalBasophils Auto (Bld) [#/Vol]on 81-72-3720Klveaoybd (Bld) [#/Vol]Automated basophil count 0.0-0.1FFulton County Health CenterBasophils/100 WBC Auto (Bld)on 80-02-2768Iyiuvnefq/100 WBC (Bld)Automated basophil %0.2-2.0[facility] HospitalEosinophils/100 WBC Auto (Bld)on 23-48-8665Qhrhxcxhdak/100 WBC (Bld)Automated eosinophil %0.9-7.0[facility] HospitalErythrocyte distribution width Auto (RBC) [Ratio]on 88-22-8127Anwjynkxonc distribution width (RBC) [Ratio]Erythrocyte distribution width [Ratio] by Automated count11.0-15.0 [facility] HospitalEstimated glomerular filtration rate (GFR) non- Americanon 89-89-4231KVD/1.73 sq M.predicted among non-blacks MDRD (S/P/Bld) [Vol rate/Area]Estimated glomerular filtration rate (GFR) non- AmericanLow>=60 mL/min/1.73m 2FFulton County Health CenterHematocrit Auto (Bld) [Volume fraction]on 85-67-1075Dscvvrzpqe (Bld) [Volume fraction]Hematocrit [Volume Fraction] of Blood by Automated yiwpaZlf23.0-54.0[facility] HospitalHemoglobin [Mass/volume] in Bloodon 89-77-9739Ymyqxnjief (Bld) [Mass/Vol]Hemoglobin [Mass/volume] in LzhvzBmd43.0-18.0[facility] HospitalLaboratory - Chemistry and Chemistry - challengeon 10-06-2024 Calcium [Mass/Vol]8.8 mg/dL8.5-10.1FFulton County Health CenterChloride [Moles/Vol]104 mmol/Y85-500VxxfbpuwbLicking Memorial HospitalCO2 [Moles/Vol]29.9 mmol/L21.0-32.0[facility] HospitalCreatinine [Mass/Vol]1.42 mg/dL High0.70-1.30[facility] HospitalGFR/1.73 sq M.predicted MDRD (S/P/Bld) [Vol rate/Area]57 mL/min/{1.73_m2}Low>=60 mL/min/1.73m 2FFulton County Health CenterGlucose [Mass/Vol]147 mg/vVLxqs19-373FcvbqhpglLicking Memorial HospitalPotassium [Moles/Vol]4.6 mmol/L3.5-5.1FAvita Health System Galion Hospitalodium [Moles/Vol]140 mmol/R829-336FvwbtiryhLicking Memorial HospitalUrea nitrogen [Mass/Vol]12.0 mg/dL7.0-18.0[facility] HospitalUrea nitrogen/Creatinine [Mass ratio]8.5 mg/mgLicking Memorial Hospital Laboratory - Hematology and Cell countson 55-57-4072Aklltxop granulocytes/100 WBC (Bld)0.5 %0.0-0.5FFulton County Health CenterLeukocytes [#/volume] corrected for nucleated erythrocytes in Blood by Automated counon 20-23-7868URX corrected for nucl RBC Auto (Bld) [#/Vol]Leukocytes [#/volume] corrected for nucleated erythrocytes in Blood by Automated coun4.0-11.0[facility] HospitalLymphocytes Auto (Bld) [#/Vol]on 91-12-0839Ivotfsukwrk (Bld) [#/Vol]Lymphocytes [#/volume] in Blood by Automated countLow1.2-3.8[facility] HospitalLymphocytes/100 WBC Auto (Bld)on 10-06-2024 Lymphocytes/100 WBC (Bld)Lymphocytes/100 leukocytes in Blood by Automated count 20.5-60.0[facility] CenterH Auto (RBC) [Entitic mass]on 98-90-9264MIS (RBC) [Entitic mass]MCH [Entitic mass] by Automated count25.9-34.0 [facility] HospitalMCHC Auto (RBC) [Mass/Vol]on 91-30-5629ZXRY (RBC) [Mass/Vol]MCHC [Mass/volume] by Automated count29.9-35.2FCleveland Clinic Akron GeneralV Auto (RBC) [Entitic vol]on 26-98-2002ERX (RBC) [Entitic vol] MCV [Entitic volume] by Automated yvhiiFsld69.0-94.0[facility] HospitalMonocytes Auto (Bld) [#/Vol]on 79-82-4881Nhixxpbqa (Bld) [#/Vol]Automated blood monocyte count0.3-0.8[facility] HospitalMonocytes/100 WBC Auto (Bld)on 17-74-9383Oykwomdxr/100 WBC (Bld)Automated monocyte %1.7-12.0 [facility] HospitalNeutrophils Auto (Bld) [#/Vol]on 10-06-2024 Neutrophils (Bld) [#/Vol]Neutrophils [#/volume] in Blood by Automated count 1.4-6.5FFulton County Health CenterNeutrophils/100 WBC Auto (Bld)on 84-91-6833Aitnrvqluvu/100 WBC (Bld)Automated neutrophil %43.0-75.0[facility] HospitalNo Panel Informationon 90-43-3771Ymdqcjbnbff # (Auto)0.1 10 3/uL0.0-0.7FFulton County Health CenterImmature Granulocyte # (Auto)0.02 10 3/uL0.00-0.03[facility] HospitalPlatelet mean volume Auto (Bld) [Entitic vol]on 40-81-7261Ibsfbkdr mean volume (Bld) [Entitic vol]Platelet mean volume [Entitic volume] in Blood by Automated count9.5-13.5FFulton County Health CenterPlatelets Auto (Bld) [#/Vol]on 80-74-6575Tvatieehb (Bld) [#/Vol]Platelets [#/volume] in Blood by Automated wupoiRpw969-912FnohzeqnwLicking Memorial HospitalRBC Auto (Bld) [#/Vol]on 96-12-5724ISU (Bld) [#/Vol] Erythrocytes [#/volume] in Blood by Automated countLow4.70-6.10[facility] Hospitalerum or plasma anion gap determinationon 20-86-6051Gvrut gap [Moles/Vol]Serum or plasma anion gap determinationLicking Memorial HospitalBasophils Auto (Bld) [#/Vol]on 47-12-1433Bcytpxjyo (Bld) [#/Vol] Automated basophil count0.0-0.1FFulton County Health CenterBasophils/100 WBC Auto (Bld)on 24-82-8084Norurqlgx/100 WBC (Bld)Automated basophil %0.2-2.0 [facility] HospitalEosinophils/100 WBC Auto (Bld)on 07-16-2024 Eosinophils/100 WBC (Bld)Automated eosinophil %0.9-7.0[facility] HospitalErythrocyte distribution width Auto (RBC) [Ratio]on 31-25-6696Irguwvplbic distribution width (RBC) [Ratio]Erythrocyte distribution width [Ratio] by Automated count11.0-15.0[facility] HospitalEstimated glomerular filtration rate (GFR) non- Americanon 32-41-2077TUE/1.73 sq M.predicted among non-blacks MDRD (S/P/Bld) [Vol rate/Area]Estimated glomerular filtration rate (GFR) non- AmericanLow>=60 mL/min/1.73m 2FFulton County Health CenterGlobulin Calc (S) [Mass/Vol]on 55-24-1637Cqexijhn (S) [Mass/Vol]Serum globulin measurement by calculation (mass/volume)[facility] HospitalGlucose mean value [Mass/volume] in Blood Estimated from glycated hemoglobinon 41-93-9774Mqkkmwl glucose Estimated from glycated hemoglobin (Bld) [Mass/Vol]Glucose mean value [Mass/volume] in Blood Estimated from glycated hemoglobinLicking Memorial HospitalHematocrit Auto (Bld) [Volume fraction]on 19-52-6529Gvqiqmmley (Bld) [Volume fraction]Hematocrit [Volume Fraction] of Blood by Automated wyqltJbt25.0-54.0[facility] HospitalHemoglobin [Mass/volume] in Bloodon 67-15-6727Zqhneklbbl (Bld) [Mass/Vol] Hemoglobin [Mass/volume] in ZaoqaPky77.0-18.0[facility] Laboratory - Chemistry and Chemistry - challengeon 78-89-9202Vicubcp [Mass/Vol] 3.7 g/dL3.4-5.0[facility] HospitalALP [Catalytic activity/Vol]116 U/C77-445RzydkfbcxLicking Memorial HospitalALT [Catalytic activity/Vol]24 U/L 16-63L[facility] HospitalAST [Catalytic activity/Vol]15 U/L15-37 [facility] HospitalBilirubin [Mass/Vol]0.5 mg/dL0.2-1.0[facility] HospitalCalcium [Mass/Vol]9.1 mg/dL8.5-10.1FFulton County Health CenterChloride [Moles/Vol]100 mmol/T25-272WjdhxwjenLicking Memorial HospitalCO2 [Moles/Vol]28.6 mmol/L21.0-32.0[facility] Creatinine [Mass/Vol]1.42 mg/dLHigh0.70-1.30[facility] GFR/1.73 sq M.predicted MDRD (S/P/Bld) [Vol rate/Area]57 mL/min/{1.73_m2}Low>=60 mL/min/1.73m 2FFulton County Health CenterGlucose [Mass/Vol]129 mg/dLHigh 74-106[facility] HospitalPotassium [Moles/Vol]4.5 mmol/L3.5-5.1 [facility] HospitalProtein [Mass/Vol]7.1 g/dL6.4-8.2FAvita Health System Galion Hospitalodium [Moles/Vol]138 mmol/V753-149WsocroebiLicking Memorial HospitalTSH Qn1.188 m[IU]/L0.358-3.740[facility] Urea nitrogen [Mass/Vol]16.0 mg/dL7.0-18.0[facility] HospitalUrea nitrogen/Creatinine [Mass ratio]11.3 mg/mgLicking Memorial Hospital Laboratory - Hematology and Cell countson 14-02-1637FaF7d (Bld) [Mass fraction] 6.4 %High4.5-6.2FFulton County Health CenterComment on above:ADA RECOMMENDED LIMIT 4.0 - 6.0ADA THERAPEUTIC TARGET < 7.0ACTION SUGGESTED> 7.0 Immature granulocytes/100 WBC (Bld)0.7 %High0.0-0.5FFulton County Health CenterLeukocytes [#/volume] corrected for nucleated erythrocytes in Blood by Automated counon 97-48-8519TGU corrected for nucl RBC Auto (Bld) [#/Vol] Leukocytes [#/volume] corrected for nucleated erythrocytes in Blood by Automated coun4.0-11.0[facility] HospitalLymphocytes Auto (Bld) [#/Vol]on 08-61-3662Koblgfokgbd (Bld) [#/Vol]Lymphocytes [#/volume] in Blood by Automated count1.2-3.8[facility] HospitalLymphocytes/100 WBC Auto (Bld)on 49-39-6705Qwdradicsqm/100 WBC (Bld)Lymphocytes/100 leukocytes in Blood by Automated count20.5-60.0[facility] CenterH Auto (RBC) [Entitic mass]on 15-93-0156QZR (RBC) [Entitic mass]MCH [Entitic mass] by Automated count 25.9-34.0[facility] HospitalMCHC Auto (RBC) [Mass/Vol]on 73-00-6967VMRT (RBC) [Mass/Vol]MCHC [Mass/volume] by Automated count29.9-35.2 [facility] CenterV Auto (RBC) [Entitic vol]on 44-90-2697JXE (RBC) [Entitic vol]MCV [Entitic volume] by Automated euhxfQqkg06.0-94.0[facility] HospitalMicroalbumin [Mass/volume] in Urineon 67-75-0953Ukenuqf DL <= 20 mg/L (U) [Mass/Vol]Microalbumin [Mass/volume] in Urine<=30.0[facility] HospitalMonocytes Auto (Bld) [#/Vol]on 60-50-1462Icveifehl (Bld) [#/Vol]Automated blood monocyte count0.3-0.8[facility] Monocytes/100 WBC Auto (Bld)on 13-12-2306Vjvnsohju/100 WBC (Bld)Automated monocyte %1.7-12.0[facility] HospitalNeutrophils Auto (Bld) [#/Vol]on 80-44-3099Dpmpcdsaujj (Bld) [#/Vol]Neutrophils [#/volume] in Blood by Automated count1.4-6.5FFulton County Health CenterNeutrophils/100 WBC Auto (Bld)on 79-32-0597Igyyfdynuxs/100 WBC (Bld)Automated neutrophil %43.0-75.0 [facility] HospitalNo Panel Informationon 49-21-8900Bewbtgxyfqs # (Auto)0.1 10 3/uL0.0-0.7FFulton County Health CenterImmature Granulocyte # (Auto)0.04 10 3/uLHigh0.00-0.03[facility] HospitalPlatelet mean volume Auto (Bld) [Entitic vol]on 41-97-7751Mwltcgff mean volume (Bld) [Entitic vol]Platelet mean volume [Entitic volume] in Blood by Automated count9.5-13.5 [facility] HospitalPlatelets Auto (Bld) [#/Vol]on 07-16-2024 Platelets (Bld) [#/Vol]Platelets [#/volume] in Blood by Automated countLow 150-450L[facility] HospitalRBC Auto (Bld) [#/Vol]on 72-75-3834MCI (Bld) [#/Vol]Erythrocytes [#/volume] in Blood by Automated countLow4.70-6.10 [facility] Hospitalerum or plasma albumin/globulin mass ratioon 49-05-5554Npbnzlj/Globulin [Mass ratio]Serum or plasma albumin/globulin mass ratioMercy Health Defiance Hospitalerum or plasma anion gap determinationon 50-85-8273Tyxxn gap [Moles/Vol]Serum or plasma anion gap determinationLicking Memorial HospitalAmbulatory Visit Summaryon 00-03-1305Tbkzmcvkzc Visit SummaryAmbulatory Visit Summary JOSE L AMES :1940 Visit [...] A BAEZ MD Where: [facility] [address], [address] [place] [address]- You Need to Schedule the Following Appointments Follow Up with LORRAINE DAUGHERTY, JOSE CARLOS Barnett When: Where: [address] [facility] [address] [place] [address]- Medications What How Much When Instructions New oxybutynin (oxybutynin 5 mg Tab) 1 Tablets By Mouth At bedtime Refills: 11 Take 30 min prior tobedtime. Pickup at [facility]/pharmacy #[id number] Unchanged ascorbic acid 500 Milligram Unchanged cholecalciferol [...] mEq oral tablet, extended release) 1 Tablets ByMouth Every day Contact prescribing physician if questions or concerns Unchanged tiotropium (Spiriva HandiHaler 18 mcg inhalation capsule) 1 Capsules Inhalation Every dayContact prescribing physician if questions or concerns Unchanged tizanidine (tiZANidine 2 mg Tab) Contact prescribing physician if questions or concerns Unchanged torsemide (torsemide 10 mg Tab) 1 Tablets By Mouth Every day Contact prescribing physician if questions or concerns Pharmacy Information [facility]/pharmacy #[id number]: [address], [place] [id number] [phone] What How Much When Comments Stop Taking [...] incontinence Urinary frequency Urinary (more content not included)...[facility] HospitalU[facility] Office/Clinic Noteon 34-73-5267Drqaazi Office/Clinic NoteUrology Office/Clinic Note Chief Complaint 2 monlth F/U [...] with voice recognition artificial intelligence software, specifically [employer] and or [employer]. Substitutions may have occurred due to the inherent limitations of voice recognition and artificial intelligence software. 1. OAB (overactive bladder) (N32.81: Overactive bladder) PVR (cc): 01/29/24 - 04/15/24 - 0 Failed Oxybutynin due to no improvement. Started on Myrbetriq 50mg ER qd at last visit. Has noticeda slight improvement in sx over the last [...] night time. Counseled on possible SE. Pt wishesto add a new med. -Begin Oxybutynin 5mg [...] Information Carlos A BAEZ MD, URL [address] [address]- Additional Instructions: 6 mos w/ PVR Patient [...] Pneumonia Radial nerve p (more content not included)...[facility] Comment on above:Result Comment: Electronically Signed By: Carlos A BAEZ MD\.br\Date and Time Signed: 04/15/24 13:39 EDT\.br\Electronically Co-Signed By: Alisson Saeed\.br\Date and Time Co-Signed: 04/15/24 13:35 EDT\.br\Electronically Co-Signed By: Alisson Saeed\.br\Date and Time Co- Signed: 04/15/2413:36 EDTBasophils Auto (Bld) [#/Vol]on 98-62-0463Hmsnbutic (Bld) [#/Vol]0.0 10 3/uL0.0-0.1FFulton County Health CenterBasophils/100 WBC Auto (Bld)on 23-79-5578Offvpivep/100 WBC (Bld)0.9 %0.2-2.0[facility] HospitalEosinophils/100 WBC Auto (Bld)on 96-32-1681Ggwfmweqoyb/100 WBC (Bld)0.7 %Low0.9-7.0[facility] HospitalErythrocyte distribution width Auto (RBC) [Ratio]on 62-10-6228Lxvwwpbzapx distribution width (RBC) [Ratio]12.8 %11.0-15.0[facility] HospitalEstimated glomerular filtration rate (GFR) non- Americanon 42-85-5533ECS/1.73 sq M.predicted among non-blacks MDRD (S/P/Bld) [Vol rate/Area]59 mL/min/{1.73_m2}Low>=60 [facility] HospitalGlobulin Calc (S) [Mass/Vol]on 04-07-2024 Globulin (S) [Mass/Vol]3.0 g/dLLicking Memorial HospitalGlucose mean value [Mass/volume] in Blood Estimated from glycated hemoglobinon 04-07-2024 Average glucose Estimated from glycated hemoglobin (Bld) [Mass/Vol]203 mg/dL [facility] HospitalHematocrit Auto (Bld) [Volume fraction]on 57-25-4855Gfubmgqtkb (Bld) [Volume fraction]42.1 %42.0-54.0[facility] HospitalHemoglobin [Mass/volume] in Bloodon 43-34-6976Juzhndzpsi (Bld) [Mass/Vol]14.0 g/dL14.0-18.0[facility] HospitalLaboratory - Chemistry and Chemistry - challengeon 41-80-9154Txjmqox [Mass/Vol]3.5 g/dL 3.4-5.0[facility] HospitalALP [Catalytic activity/Vol]120 U/LHigh 46-116[facility] HospitalALT [Catalytic activity/Vol]27 U/L16-63 [facility] HospitalAST [Catalytic activity/Vol]16 U/L15-37 [facility] HospitalBilirubin [Mass/Vol]0.4 mg/dL0.2-1.0[facility] HospitalCalcium [Mass/Vol]9.0 mg/dL8.5-10.1FFulton County Health CenterChloride [Moles/Vol]101 mmol/B92-878FemtoasdjLicking Memorial HospitalCO2 [Moles/Vol]27.1 mmol/L21.0-32.0[facility] Creatinine [Mass/Vol]1.18 mg/dL0.70-1.30[facility] GFR/1.73 sq M.predicted MDRD (S/P/Bld) [Vol rate/Area]mL/min/{1.73_m2}>=60 [facility] HospitalGlucose [Mass/Vol]248 mg/jSEbms99-396XvyjoirjlLicking Memorial HospitalPotassium [Moles/Vol]4.5 mmol/L3.5-5.1FFulton County Health CenterProtein [Mass/Vol]6.5 g/dL6.4-8.2FFulton [facility] Center Sodium [Moles/Vol]136 mmol/Y496-655NnexoswjdLicking Memorial HospitalUrea nitrogen [Mass/Vol]21.0 mg/dLHigh7.0-18.0[facility] HospitalUrea nitrogen/Creatinine [Mass ratio]17.8 mg/mgLicking Memorial Hospital Laboratory - Hematology and Cell countson 87-29-8868CcI2p (Bld) [Mass fraction] 8.7 %High4.5-6.2FFulton County Health CenterComment on above:ADA RECOMMENDED LIMIT 4.0 - 6.0ADA THERAPEUTIC TARGET < 7.0ACTION SUGGESTED> 7.0 Immature granulocytes/100 WBC (Bld)0.2 %0.0-0.5FFulton County Health Center Leukocytes [#/volume] corrected for nucleated erythrocytes in Blood by Automated counon 44-65-4394AGP corrected for nucl RBC Auto (Bld) [#/Vol]4.5 10 3/uL 4.0-11.0[facility] HospitalLymphocytes Auto (Bld) [#/Vol]on 71-20-3094Ssmxdmdtiix (Bld) [#/Vol]0.7 10 3/uLLow1.2-3.8[facility] HospitalLymphocytes/100 WBC Auto (Bld)on 06-12-8505Yyptaxnuybs/100 WBC (Bld)16.1 %Low20.5-60.0[facility] CenterH Auto (RBC) [Entitic mass]on 26-79-8181ZYZ (RBC) [Entitic mass]32.7 pg25.9-34.0[facility] HospitalMCHC Auto (RBC) [Mass/Vol]on 55-13-6216FXCK (RBC) [Mass/Vol]33.3 g/dL29.9-35.2FFulton County Health CenterMCV Auto (RBC) [Entitic vol]on 19-62-0226KLZ (RBC) [Entitic vol]98.4 iBPhkx07.0-94.0[facility] HospitalMonocytes Auto (Bld) [#/Vol]on 13-87-7318Ityrqdpgc (Bld) [#/Vol]0.4 10 3/uL0.3-0.8[facility] HospitalMonocytes/100 WBC Auto (Bld)on 32-79-8413Uekhtfcuy/100 WBC (Bld)9.1 %1.7-12.0[facility] Neutrophils Auto (Bld) [#/Vol]on 91-30-8821Wtiaxmprwni (Bld) [#/Vol]3.3 10 3/uL 1.4-6.5FFulton County Health CenterNeutrophils/100 WBC Auto (Bld)on 31-82-9433Jxrujcyistr/100 WBC (Bld)73.0 %43.0-75.0[facility] HospitalNo Panel Informationon 61-79-4871Lxjuhofjxhq # (Auto)0.0 10 3/uL0.0-0.7 [facility] HospitalImmature Granulocyte # (Auto)0.01 10 3/uL 0.00-0.03[facility] HospitalPlatelet mean volume Auto (Bld) [Entitic vol]on 39-90-5565Akkannum mean volume (Bld) [Entitic vol]9.7 fL9.5-13.5 [facility] HospitalPlatelets Auto (Bld) [#/Vol]on 04-07-2024 Platelets (Bld) [#/Vol]125 10 3/pVDym808-632HijvjthdbLicking Memorial HospitalRBC Auto (Bld) [#/Vol]on 84-99-0947CJP (Bld) [#/Vol]4.28 10 6/uLLow4.70-6.10 [facility] Hospitalerum or plasma albumin/globulin mass ratioon 06-46-2653Kjihnwl/Globulin [Mass ratio]1.2 {ratio}[facility] Hospitalerum or plasma anion gap determinationon 14-08-9758Jalvf gap [Moles/Vol] 12.4 mmol/LFFulton County Health CenterBasophils Auto (Bld) [#/Vol]on 62-80-6708Wrldmhksv (Bld) [#/Vol]0.0 10 3/uL0.0-0.1FFulton County Health CenterBasophils/100 WBC Auto (Bld)on 95-01-1576Hgmzfmuce/100 WBC (Bld)0.8 % 0.2-2.0[facility] HospitalEosinophils/100 WBC Auto (Bld)on 50-65-7207Vlqvnhygilz/100 WBC (Bld)1.5 %0.9-7.0[facility] Erythrocyte distribution width Auto (RBC) [Ratio]on 21-66-2983Suodeczocre distribution width (RBC) [Ratio]13.0 %11.0-15.0[facility] Estimated glomerular filtration rate (GFR) non- Americanon 01-16-2024 GFR/1.73 sq M.predicted among non-blacks MDRD (S/P/Bld) [Vol rate/Area]56 mL/min/{1.73_m2}Low>=60[facility] HospitalHematocrit Auto (Bld) [Volume fraction]on 10-61-2533Wbpfdvhoxt (Bld) [Volume fraction]39.5 %Low 42.0-54.0[facility] HospitalHemoglobin [Mass/volume] in Bloodon 47-54-4940Uqhkmxlztu (Bld) [Mass/Vol]13.3 g/dLLow14.0-18.0[facility] HospitalLaboratory - Chemistry and Chemistry - challengeon 01-16-2024 Calcium [Mass/Vol]9.1 mg/dL8.5-10.1FFulton County Health CenterChloride [Moles/Vol]100 mmol/E42-961EkjchsxrgLicking Memorial HospitalCO2 [Moles/Vol]32.5 mmol/LHigh21.0-32.0[facility] HospitalCreatinine [Mass/Vol]1.23 mg/dL0.70-1.30[facility] HospitalGFR/1.73 sq M.predicted MDRD (S/P/Bld) [Vol rate/Area]mL/min/{1.73_m2}>=60[facility] Glucose [Mass/Vol]244 mg/cCFwdh15-714WuvjebzqwLicking Memorial HospitalPotassium [Moles/Vol]4.7 mmol/L3.5-5.1FAvita Health System Galion Hospitalodium [Moles/Vol] 137 mmol/Y639-527ZdxdxfzqsLicking Memorial HospitalUrea nitrogen [Mass/Vol]15.0 mg/dL7.0-18.0[facility] HospitalUrea nitrogen/Creatinine [Mass ratio]12.2 mg/mgLicking Memorial HospitalLaboratory - Hematology and Cell countson 21-94-4062Ppcscyub granulocytes/100 WBC (Bld)0.2 %0.0-0.5FFulton County Health CenterLaboratory - Urinalysison 92-33-2021Onixvnd (U) [Mass/Vol]32.8 mg/dLHigh<=11.9[facility] HospitalLeukocytes [#/volume] corrected for nucleated erythrocytes in Blood by Automated counon 92-04-8585YDQ corrected for nucl RBC Auto (Bld) [#/Vol]4.8 10 3/uL4.0-11.0 [facility] HospitalLymphocytes Auto (Bld) [#/Vol]on 01-16-2024 Lymphocytes (Bld) [#/Vol]0.9 10 3/uLLow1.2-3.8[facility] Lymphocytes/100 WBC Auto (Bld)on 66-30-4595Fmjvdnqskhl/100 WBC (Bld)17.7 %Low 20.5-60.0[facility] Auto (RBC) [Entitic mass]on 15-78-2652OAQ (RBC) [Entitic mass]32.8 pg25.9-34.0[facility] HospitalMCHC Auto (RBC) [Mass/Vol]on 26-56-5644HIGJ (RBC) [Mass/Vol]33.7 g/dL 29.9-35.2FFulton County Health CenterMCV Auto (RBC) [Entitic vol]on 72-86-8348ZGF (RBC) [Entitic vol]97.3 bGJyqa99.0-94.0[facility] HospitalMonocytes Auto (Bld) [#/Vol]on 04-09-1768Dufecrjlg (Bld) [#/Vol]0.4 10 3/uL0.3-0.8[facility] HospitalMonocytes/100 WBC Auto (Bld)on 47-45-6151Vxzlbkoqj/100 WBC (Bld)9.2 %1.7-12.0[facility] Neutrophils Auto (Bld) [#/Vol]on 32-94-6080Tdqfijxwujj (Bld) [#/Vol]3.4 10 3/uL 1.4-6.5FFulton County Health CenterNeutrophils/100 WBC Auto (Bld)on 95-93-0163Wkwtyjtajqq/100 WBC (Bld)70.6 %43.0-75.0[facility] HospitalNo Panel Informationon 62-38-5369Tvfffntomlv # (Auto)0.1 10 3/uL0.0-0.7 [facility] HospitalImmature Granulocyte # (Auto)0.01 10 3/uL 0.00-0.03[facility] HospitalUrine Random Urdgyztips717.34 mg/dL 20.00-300.00[facility] HospitalPlatelet mean volume Auto (Bld) [Entitic vol]on 07-78-1178Fbnzmffa mean volume (Bld) [Entitic vol]9.5 fL9.5-13.5 [facility] HospitalPlatelets Auto (Bld) [#/Vol]on 01-16-2024 Platelets (Bld) [#/Vol]123 10 3/wPDkq503-303FhvmucumtLicking Memorial HospitalRBC Auto (Bld) [#/Vol]on 18-45-9047UGI (Bld) [#/Vol]4.06 10 6/uLLow4.70-6.10 [facility] Hospitalerum or plasma anion gap determinationon 92-20-3154Rbmoo gap [Moles/Vol]9.2 mmol/LFFulton County Health CenterUrine protein/creatinine ratioon 91-93-0618Doopxuw/Creatinine (U) [Ratio]0.28[facility] HospitalAlbumin [Mass/volume] in Serum or Plasmaon 12-19-2023 Albumin [Mass/Vol]3.9 g/dL2.9-4.4FFulton County Health CenterBasophils Auto (Bld) [#/Vol]on 56-23-5651Ungbxtlqf (Bld) [#/Vol]0.0 10 3/uL0.0-0.1FFulton County Health CenterBasophils/100 WBC Auto (Bld)on 26-77-2863Cjrlyegxs/100 WBC (Bld)0.6 %0.2-2.0[facility] HospitalEosinophils/100 WBC Auto (Bld)on 95-08-9944Vivfrkvipng/100 WBC (Bld)1.1 %0.9-7.0[facility] HospitalErythrocyte distribution width Auto (RBC) [Ratio]on 12-19-2023 Erythrocyte distribution width (RBC) [Ratio]12.9 %11.0-15.0[facility] HospitalEstimated glomerular filtration rate (GFR) non- Americanon 42-33-9159DRN/1.73 sq M.predicted among non-blacks MDRD (S/P/Bld) [Vol rate/Area]43 mL/min/{1.73_m2}>=60[facility] HospitalGlobulin Calc (S) [Mass/Vol]on 95-16-6543Kgsauowh (S) [Mass/Vol]3.1 g/dLLicking Memorial HospitalGlucose mean value [Mass/volume] in Blood Estimated from glycated hemoglobinon 66-30-4659Qmlrtua glucose Estimated from glycated hemoglobin (Bld) [Mass/Vol]166 mg/dLLicking Memorial HospitalHematocrit Auto (Bld) [Volume fraction]on 30-56-1612Curiwxully (Bld) [Volume fraction]38.3 %42.0-54.0 [facility] HospitalHemoglobin [Mass/volume] in Bloodon 12-19-2023 Hemoglobin (Bld) [Mass/Vol]12.3 g/dL14.0-18.0[facility] IgA [Mass/volume] in Serum or Plasmaon 95-24-5126HmN [Mass/Vol]112 mg/gX75-585 [facility] HospitalIgG [Mass/volume] in Serum or Plasmaon 17-57-7119KcE [Mass/Vol]805 mg/dS941-8907WjbqmufblLicking Memorial HospitalIgM [Mass/volume] in Serum or Plasmaon 52-97-1683HzH [Mass/Vol]48 mg/yT37-153 [facility] HospitalImmunoglobulin light chains.kappa.free [Mass/volume] in Serumon 27-36-9415Gxvdrhzgiwtjby light chains.kappa.free (S) [Mass/Vol]33.8 mg/L3.3-19.4FFulton County Health CenterImmunoglobulin light chains.kappa.free/Immunoglobulin light chains.lambda.free [Sandra 12-19-2023 Immunoglobulin light chains.kappa.free/Immunoglobulin light chains.lambda.free (S) [Mass ratio]1.610.26-1.65[facility] HospitalComment on above: Performed at: [facility] [place] [id number] Director: Juan José Butler PhD, Phone: [phone] light chains.lambda.free [Mass/volume] in Serum or Plasmaon 30-50-5820Wfzemaumuswqen light chains.lambda.free [Mass/Vol]21.0 mg/L5.7-26.3FFulton County Health CenterIron binding capacity [Mass/volume] in Serum or Plasmaon 97-74-5557Eazd binding capacity [Mass/Vol]294.0 ug/dL250.0-450.0[facility] HospitalIron saturation [Mass Fraction] in Serum or Plasmaon 05-86-0114Zrck saturation [Mass fraction]26.9 %[facility] HospitalLaboratory - Chemistry and Chemistry - challengeon 02-44-5765Ilujsmj [Mass/Vol]3.4 g/dL 3.4-5.0[facility] HospitalALP [Catalytic activity/Vol]88 U/L46-116 [facility] HospitalALT [Catalytic activity/Vol]36 U/L16-63 [facility] HospitalAST [Catalytic activity/Vol]14 U/L15-37 [facility] HospitalBilirubin [Mass/Vol]0.3 mg/dL0.2-1.0[facility] HospitalCalcium [Mass/Vol]9.3 mg/dL8.5-10.1FFulton County Health CenterChloride [Moles/Vol]102 mmol/F04-392HsugxzdjqLicking Memorial HospitalCO2 [Moles/Vol]31.6 mmol/L21.0-32.0[facility] Cobalamin (Vitamin B12) [Mass/Vol]386.0 pg/mL193.0-986.0[facility] HospitalCreatinine [Mass/Vol]1.55 mg/dL0.70-1.30[facility] HospitalFerritin [Mass/Vol]94.0 ng/mL26.0-388.0[facility] GFR/1.73 sq M.predicted MDRD (S/P/Bld) [Vol rate/Area]52 mL/min/{1.73_m2}>=60 [facility] HospitalGlucose [Mass/Vol]217 mg/zU45-739EhwwnzaslLicking Memorial HospitalIron [Mass/Vol]79.0 ug/dL65.0-175.0[facility] HospitalPotassium [Moles/Vol]5.0 mmol/L3.5-5.1FFulton County Health CenterProtein [Mass/Vol]6.5 g/dL6.4-8.2FAvita Health System Galion Hospitalodium [Moles/Vol]141 mmol/F520-583NvpndsjyqLicking Memorial HospitalTSH Qn0.974 m[IU]/L 0.358-3.740[facility] HospitalUrea nitrogen [Mass/Vol]21.0 mg/dL 7.0-18.0[facility] CenterUrea nitrogen/Creatinine [Mass ratio] 13.5 mg/mgLicking Memorial HospitalLaboratory - Hematology and Cell countson 74-48-4705NsY4v (Bld) [Mass fraction]7.4 %4.5-6.2FFulton County Health CenterComment on above:ADA RECOMMENDED LIMIT 4.0 - 6.0ADA THERAPEUTIC TARGET < 7.0ACTION SUGGESTED> 7.0Immature granulocytes/100 WBC (Bld)0.2 %0.0-0.5 [facility] HospitalLeukocytes [#/volume] corrected for nucleated erythrocytes in Blood by Automated counon 22-12-4990ESW corrected for nucl RBC Auto (Bld) [#/Vol]5.4 10 3/uL4.0-11.0[facility] Lymphocytes Auto (Bld) [#/Vol]on 26-37-5551Wdtfkhklxfi (Bld) [#/Vol]1.1 10 3/uL 1.2-3.8[facility] HospitalLymphocytes/100 WBC Auto (Bld)on 46-88-2796Oblwndtyzij/100 WBC (Bld)20.0 %20.5-60.0[facility] CenterH Auto (RBC) [Entitic mass]on 12-83-4845UOR (RBC) [Entitic mass]32.0 pg 25.9-34.0[facility] HospitalMCHC Auto (RBC) [Mass/Vol]on 52-36-7132FGKW (RBC) [Mass/Vol]32.1 g/dL29.9-35.2FFulton County Health CenterMCV Auto (RBC) [Entitic vol]on 81-26-6103THG (RBC) [Entitic vol]99.7 fL 80.0-94.0[facility] HospitalMonocytes Auto (Bld) [#/Vol]on 53-08-1322Guhwregvo (Bld) [#/Vol]0.5 10 3/uL0.3-0.8[facility] HospitalMonocytes/100 WBC Auto (Bld)on 14-62-8770Zpuxdunbw/100 WBC (Bld)9.2 % 1.7-12.0[facility] HospitalNeutrophils Auto (Bld) [#/Vol]on 33-75-4825Jyracnesrps (Bld) [#/Vol]3.7 10 3/uL1.4-6.5FFulton County Health CenterNeutrophils/100 WBC Auto (Bld)on 30-10-4537Xzsjusblivc/100 WBC (Bld)68.9 % 43.0-75.0[facility] HospitalNo Panel Informationon 82-12-5972R- Reactive Protein, Quantitative<0.50 mg/dL<=0.50[facility] Eosinophils # (Auto)0.1 10 3/uL0.0-0.7FFulton County Health CenterFolate 22.10 ng/mL8.60-58.90[facility] HospitalImmature Granulocyte # (Auto)0.01 10 3/uL0.00-0.03[facility] HospitalProtein Electrophoresis M-SpikeNot Observed g/dLNot ObservedLicking Memorial HospitalProtein Electrophoresis NoteComment.[facility] Comment on above:Protein electrophoresis scan will follow via computer,mail, or composition mixer delivery.Platelet mean volume Auto (Bld) [Entitic vol]on 12-19-2023 Platelet mean volume (Bld) [Entitic vol]9.6 fL9.5-13.5FFulton County Health CenterPlatelets Auto (Bld) [#/Vol]on 33-23-5381Fndnpfprm (Bld) [#/Vol]136 10 3/oZ651-532GjbngjtvaLicking Memorial HospitalProtein [Mass/volume] in Serum or Plasmaon 47-89-3279Payuuyr [Mass/Vol]6.2 g/dL6.0-8.5FFulton County Health CenterRBC Auto (Bld) [#/Vol]on 46-29-5978QEH (Bld) [#/Vol]3.84 10 6/uL4.70-6.10 [facility] Hospitalerum globulin measurement (mass/volume)on 21-52-8026Npwqpsew (S) [Mass/Vol]2.3 g/dL2.2-3.9[facility] Hospitalerum or plasma albumin/globulin mass ratioon 96-42-6866Xdswekh/Globulin [Mass ratio]1.1 {ratio}[facility] HospitalAlbumin/Globulin [Mass ratio]1.7 {ratio}0.7-1.7FAvita Health System Galion Hospitalerum or plasma alpha 1 globulin measurement by electrophoresis (mass/volume)on 17-08-0002Qujdx 1 globulin Elph [Mass/Vol]0.2 g/dL0.0-0.4FAvita Health System Galion Hospitalerum or plasma alpha 2 globulin measurement by electrophoresis (mass/volume)on 28-70-3674Vrana 2 globulin Elph [Mass/Vol]0.6 g/dL0.4-1.0[facility] Hospitalerum or plasma anion gap determinationon 97-15-3646Ksfqu gap [Moles/Vol]12.4 mmol/LFAvita Health System Galion Hospitalerum or plasma beta globulin measurement by electrophoresis (mass/volume)on 70-81-4775Jicw globulin Elph [Mass/Vol]0.8 g/dL0.7-1.3FAvita Health System Galion Hospitalerum or plasma gamma globulin measurement by electrophoresis (mass/volume)on 16-59-2414Kdasc globulin Elph [Mass/Vol]0.7 g/dL0.4-1.8[facility] Hospitalerum or plasma immunoelectrophoresis interpretationon 44-76-9168Ttdcqexxmcygjo IEP [Interp]Comment.[facility] HospitalComment on above:No monoclonality detected.Office Visit (Cardiology)on 48-34-9007Roqtly-up visit Diagnoses/Problems Assessed Diastolic dysfunction with chronic [...] in adult Healthy Weight Tips; Status:Complete; Done: [id number] Some eating tips that can help you lose weight.; Status:Complete; Done: 37Kcr0145 Diabetes Hemoglobin A1C; Status:Canceled; Hyperlipidemia ALT - [...] supraventricular premature beats. There isleft axis deviation, deviation 12. Lexiscan Myoview December [...] multiple comorbidities, [facility] due to pneumonia, could not exclude diastolic heart failure, and had mild elevation of troponin. Diagnosis is elevated troponin not related to myocardial injury, but possibly related to supply demand mismatch. Patient has chronic diastolic heart failure Shortness of breath class III multifactorial EKG today sinus rhythm 85 first-degree AV block MO interval 218 ms compared to EKG of 09/05/2022 heart rate has decreased. 1 Uses cane as ambulatory aid, no falls Surgical History Problems History of Arm surgery History of Cataract surgery History of Colon surgery History of Complete colonoscopy History of Tonsillectomy Current Meds Medication NameInstruction Acetaminophen 325 MG Or (more content not included)...NormalUH TouchworksTobacco Screening.on 68-56-2324Qejn risk assessmenta) No falls within the last year- [facility] 250 DO Work Phone: Tobacco use status CPHSb) NoM-[facility] [employer] 250 DO Work Phone: Office Visit (Cardiology)on 82-52-6972Kwvelf-up visit Patient Instructions Please bring all medicines, [...] Garcia; Dec 17 2022 3:05 PM ESTChief Clifton AMES is being seen for testing results. [...] was prompted by a hospital stay at [facility].Patient was admitted in transfer from [facility], with hypoxemia cough congestion, treated for [...] at 9.8, patient may have been on prednisoneat that time. 1 Assessment: 1 1. 1 hospital stay September 2022 1 with acute hypoxemic respiratory failure, treated as pneumonia,there is some concern for diastolic heart failure [...] isolated supraventricular premature beats. There isleft axis deviation 12. Lexiscan Myoview December 2022-normal, [...] related to diabetic nephropathy?, Amlodipine could be acontributory factor, alternatively chronic right-sided heart failure is [...] low Blood Glucose Klor- (more content not included)...NormalUH TouchworksTobacco Screening.on 49-40-0031Rhucg depression screening assessmentNoMultiCare [facility] 250 DO Work Phone: Fall risk assessmenta) No falls within the last year -[facility] 250 DO Work Phone: Tobacco use status CPHSb) NoM-[facility] 250 DO Work Phone: NO CARDIAC STRESS/REST INJECTIONon 62-93-9532LIN CARDIAC STRESS/REST INJECTIONMRN: [id number] Patient Name: JOSE L AMES STUDY: MYOCARDIAL PERFUSION STRESS TEST WITH LEXISCAN Performing facility: [facility], [address] [place] [address], [address], [address] Provider: Cathleen Lopez MD, FACC PCP: Dr. Alejandro ALEJANDRO Supervising provider: Liz Plata MD INDICATION: R77.8: Elevated troponin I50.32: Diastolic dysfunction with chronic heart failure HISTORY: Gender: M; Age: 82 y/o ; Height: 0 cm; Weight: 695.0515976 kg. Diabetes; High Cholesterol; HTN; SOB; COPD; Quit smoking 2 years ago. COMPARISON: No comparison. ACCESSION NUMBER(S): [id number]; [id number]; [id number] ORDERING CLINICIAN: CATHLEEN LOPEZ TECHNIQUE: ONE DAY [...] for comparison. Electronically signed by: VIET HALL MDLankenau Medical CenterNo Panel Informationon 37-69-9715CnaxbpTJ-[facility] [place] [facility] 250 DO Work Phone: Office Visit (Cardiology)on 69-15-9464Lbfvjk-up visit Diagnoses/Problems Assessed Hypertension (401.9) (I10) Hyperlipidemia [...] is being seen for CAD referral [facility]. History of Present Illness 82-year-old with multiple [...] was prompted by a hospital stay at [facility].Patient was admitted in transfer from [facility], with hypoxemia cough congestion, treated for [...] supraventricular premature beats. There isleft axis deviation, Patient with multiple cardiac risk factors multiple comorbidities, [facility] hypoxemic respiratory failure due to pneumonia, could not exclude diastolic heart failure, and had mild elevation of troponin. Diagnosis is elevated troponin not related to myocardial injury, but possibly related to supply demand mismatch. Patient has chronic diastolic heart failure Shortness of breath class III multifactorial EKG today sinus rhythm 85 first-degree AV block MO interval 218 ms compared to EKG of [...] further questions arise, Sincerely, Cathleen Lopez MD [facility] I told patient that he should bring his inhalers and use them prior to his perfusion study. Current (more content not included)...NormalUH TouchworksTobacco Screening.on 92-41-4815Miafr depression screening assessmentUnited Hospital 250 DO Work Phone: Fall risk assessmenta) No falls within the last year [facility] 250 DO Work Phone: Tobacco use status CPHSb) [facility] 250 DO Work Phone: CHEMISTRYOrdered By: Neli Collins on 87-56-6690Gisehaz [Mass/Vol]110 mg/cXYkqo23 - 99 mg/dLFTMC POC SubsectionComment on above:Result Comment: Cleaned MeterPOC Device [id number] Interpretation CodeFTMC POC SubsectionPOC User [id number] Interpretation CodeFTMC POC Subsection POC UsernameSHAFFER, ATHENAInvalid Interpretation CodeFTMC POC SubsectionGlucose [Mass/Vol]93 mg/vGAqxcek26 - 99 mg/dLFTMC POC SubsectionComment on above:Result Comment: Cleaned MeterPOC Device [id number] Interpretation CodeFTMC POC SubsectionPOC User [id number] Interpretation CodeFTMC POC Subsection POC UsernamKRISTEN Dangvalba Interpretation CodeFTMC POC Subsection CHEMISTRYOrdered By: Lab ROPUser on 07-01-8675Lcqlukt [Mass/Vol]187 mg/fBDzal15 - 99 mg/dLFTMC POC SubsectionComment on above:Result Comment: Cleaned MeterPOC Device [id number] Interpretation CodeFTMC POC SubsectionPOC User ID [id number] Interpretation CodeFTMC POC SubsectionPOC UsernamKRISTEN Dangvalba Interpretation CodeFTMC POC SubsectionCHEMISTRYOrdered By: SYSTEM SYSTEM on 79-52-9125Zugrq gap [Moles/Vol]14 mmol/LNormal6 - 16 mEq/LFTMC Remisol Calcium [Mass/Vol]8.8 mg/dLLow8.9 - 11.1 mg/dLFTMC RemisolChloride [Moles/Vol]97 mmol/DVdr156 - 111 mmol/LFTMC RemisolCO2 [Moles/Vol]28 mmol/XXachvi76 - 31 mmol/LFTMC RemisolCreatinine [Mass/Vol]1.3 mg/dLNormal0.5 - 1.3 mg/dLFTMC RemisolGFR/1.73 sq M.predicted among blacks MDRD (S/P/Bld) [Vol rate/Area] mL/min/1.73 h2Iwhdwx>=59mL/min/1.73 m2[facility] Chem SGFR/1.73 sq M.predicted among non-blacks MDRD (S/P/Bld) [Vol rate/Area]53 mL/min/1.73 m2Low>=59mL/min/1.73 m2 [facility] Chem SGlucose [Mass/Vol]89 mg/ePJepbmj80 - 199 mg/dLFTMC RemisolPotassium [Moles/Vol]4.2 mmol/LNormal3.5 - 5.3 mmol/LFTMC RemisolSodium [Moles/Vol]135 mmol/UEhiyij228 - 145 mmol/LFTMC RemisolUrea nitrogen [Mass/Vol]20 mg/dLNormal5 - 21 mg/dLFTMC RemisolUrea nitrogen/Creatinine [Mass ratio]15 mg/zmXvshkr74 - 20 FT RemisolCHEMISTRYOrdered By: Opal Angel on [id number] (Bld) [Mass fraction]9.8 %High<=5.9%[facility] ChemAutoSSCHEMISTRYOrdered By: SYSTEM SYSTEM on [id number] gap [Moles/Vol]11 mmol/LNormal6 - 16 mEq/LFTMC RemisolCalcium [Mass/Vol]8.3 mg/dLLow8.9 - 11.1 mg/dLFTMC RemisolChloride [Moles/Vol]93 mmol/L Bmp168 - 111 mmol/LFTMC RemisolCO2 [Moles/Vol]32 mmol/LHigh21 - 31 mmol/LFTMC RemisolCreatinine [Mass/Vol]1.1 mg/dLNormal0.5 - 1.3 mg/dLFTMC RemisolGFR/1.73 sq M.predicted among blacks MDRD (S/P/Bld) [Vol rate/Area]mL/min/1.73 q1Ffiflq >=59mL/min/1.73 m2FT Chem SGFR/1.73 sq M.predicted among non-blacks MDRD (S/P/Bld) [Vol rate/Area]mL/min/1.73 s7Oobwjb>=59mL/min/1.73 m2FT Chem S Glucose [Mass/Vol]281 mg/kBOfif22 - 199 mg/dLFTMC RemisolPotassium [Moles/Vol] 4.3 mmol/LNormal3.5 - 5.3 mmol/LFTMC RemisolSodium [Moles/Vol]132 mmol/ENag169 - 145 mmol/LFTMC RemisolUrea nitrogen [Mass/Vol]24 mg/dLHigh5 - 21 mg/dLFTMC RemisolUrea nitrogen/Creatinine [Mass ratio]22 mg/ulYohu63 - 20[facility] Remisol HEMATOLOGYOrdered By: SYSTEM SYSTEM on 20-34-8266Mbqwsncez/100 WBC (Bld)0.2 % Normal0.0 - 2.0 %[facility] HemeAutoSSBasophils/Leukocytes Auto (Bld) [Pure # fraction]0.0 E9/LNormal0.0 - 0.2 E9/LFTMC HemeAutoSSEosinophils/100 WBC (Bld)0.6 %Normal0.0 - 8.0 %[facility] HemeAutoSSEosinophils/Leukocytes Auto (Bld) [Pure # fraction]0.0 E9/LNormal0.0 - 0.5 E9/LFTMC HemeAutoSSLymphocytes/100 WBC (Bld) 11.4 %Low14.0 - 50.0 %[facility] HemeAutoSSLymphocytes/Leukocytes Auto (Bld) [Pure # fraction]0.7 E9/LLow1.0 - 4.0 E9/LFTMC HemeAutoSSMonocytes/100 WBC (Bld)7.9 % Normal4.0 - 14.0 %[facility] HemeAutoSSMonocytes/Leukocytes Auto (Bld) [Pure # fraction]0.5 E9/LNormal0.2 - 1.0 E9/LFTMC HemeAutoSSNeutrophils/100 WBC (Bld) 79.9 %High36.0 - 75.0 %[facility] HemeAutoSSNeutrophils/Leukocytes Auto (Bld) [Pure # fraction]5.0 E9/LNormal2.0 - 7.5 E9/LFTMC HemeAutoSSHEMATOLOGYOrdered By: Terrell Orosco on 01-58-7432Iaumderkrna distribution width (RBC) [Ratio]13.9 %Niorco29.9 - 14.2 %[facility] HemeAutoSSHematocrit (Bld) [Volume fraction]40.7 % Vamrnx87.7 - 49.0 %[facility] HemeAutoSSHemoglobin (Bld) [Mass/Vol]13.6 g/iZAealrx98.5 - 17.5 gm/dLFTMC HemeAutoSSMCH (RBC) [Entitic mass]30.5 kzHfpdwl53.0 - 34.0 pg [facility] HemeAutoSSMCHC (RBC) [Mass/Vol]33.5 g/aCSgmvkd01.4 - 36.0 gm/dLFTMC HemeAutoSSMCV (RBC) [Entitic vol]91.1 qIHfkrmr66.0 - 100.0 fLFTMC HemeAutoSS Platelet mean volume (Bld) [Entitic vol]8.0 fLNormal6.4 - 10.8 fLMED[facility] HemeAutoSS Platelets (Bld) [#/Vol]218.0 E9/WYocvpd744.0 - 500.0 E9/REPLACED BY [facility] HemeAutoSSRBC (Bld) [#/Vol]4.5 E12/LNormal4.3 - 5.9 E12/REPLACED BY [facility] HemeAutoSSWBC corrected for nucl RBC Auto (Bld) [#/Vol]6.3 E9/LNormal4.0 - 11.0 E9/REPLACED BY [facility] HemeAutoSSCOVID-19 SOFIAOrdered By: Randolph Velasquez on 35-29-0208UUOF-CoV+SARS-CoV-2 (COVID-19) Ag IA.rapid Ql (Resp)NegativeNegativeLicking Memorial HospitalComment on above:This is a duplicate Kyung SARS Antigen (DAVE) result to be used for statistical tracking purpose only.Creatinine and Glomerular filtration rate.predicted panel (S/P/Bld)Ordered By: Randolph Velasquez on 47-61-2259Vgwltvosaa [Mass/Vol]1.12 mg/dL0.64-1.27L[facility] HospitalEstimated glomerular filtration rate (GFR) non- AmericanOrdered By: Randolph Velasquez on 85-76-2981RIK/1.73 sq M.predicted among non-blacks MDRD (S/P/Bld) [Vol rate/Area]> 60 mL/MinLicking Memorial HospitalGlucose Glucometer (BldC) [Mass/Vol]Ordered By: Randolph Velasquez on 93-24-1754Bhtcicv [Mass/Vol]342 mg/dL [facility] HospitalComment on above:Random Glucose Reference Range is dependent on time and content of last meal. Glucose of more than 200 mg/dL in a nonstressed, ambulatory subject supports the diagnosis of Diabetes Mellitus.No Panel InformationOrdered By: Randolph Velasquez on 13-93-4939BTIE Antigen (LFIA)[facility] HospitalEstimated GFR ()> 60 mL/MinLicking Memorial HospitalComment on above:GFR estimated reference range: According to KDOQI guidelines, <60 ml/min/1.73m2 is sufficient todiagnose a patient with chronic kidney disease.Pharmacy Creatinine Clearance (Chem62.70 [facility] Hospitalerum or plasma anion gap determinationOrdered By: Randolph Velasquez on 33-61-2550Twlwf gap [Moles/Vol]7.5 mmol/L6.0-15.0[facility] Hospitalerum or plasma calcium measurement (mass/volume)Ordered By: Randolph Velasquez on 36-89-8482Hyossbf [Mass/Vol]7.9 mg/dL8.2-10.2FAvita Health System Galion Hospitalerum or plasma chloride measurement (moles/volume) Ordered By: Randolph Velasquez on 74-26-9794Guzcivwz [Moles/Vol]98 mmol/L95-114 [facility] Hospitalerum or plasma glucose measurement (mass/volume)Ordered By: Randolph Velasquez on 28-47-2140Jsnwnql [Mass/Vol]170 mg/dL 70-100L[facility] HospitalComment on above:ADA recommended reference rangeRandom Glucose Reference Range is dependent on time and content of last meal. Glucose of more than 200 mg/dL in a nonstressed, ambulatory subject supports the diagnosisof Diabetes Mellitus.Serum or plasma potassium measurement (moles/volume)Ordered By: Randolph Velasquez on 54-85-1846Vnmwuqvjf [Moles/Vol]3.4 mmol/L3.5-5.1FFulton County Health CenterComment on above: Delta: 4.9 on 09/07/2210Serum or plasma sodium measurement (moles/volume) Ordered By: Randolph Velasquez on 87-36-7963Hvwnuz [Moles/Vol]134 mmol/T876-879 [facility] Hospitalerum or plasma total carbon dioxide measurement (moles/volume)Ordered By: Randolph Velasquez on 86-03-9036VE3 [Moles/Vol] 31.9 mmol/L22.0-30.0[facility] Hospitalerum or plasma urea nitrogen measurement (mass/volume)Ordered By: Randolph Velasquez on 63-71-4725Natq nitrogen [Mass/Vol]22 mg/dL9-[facility] HospitalAutomated erythrocytes count in urine sediment (number/area)Ordered By: Randolph Velasquez on 80-47-4006RHQ Auto (Urine sed) [#/Area]Innumerable [HPF]0-4FFulton County Health CenterAutomated leukocytes count in urine sediment (number/area)Ordered By: Randolph Velasquez on 80-30-1307TAF Auto (Urine sed) [#/Area]1-2 [HPF]0-4 [facility] HospitalBasophils Auto (Bld) [#/Vol]Ordered By: Randolph Velasquez on 30-82-6907Vxmwlxxfp (Bld) [#/Vol]0.0 10*3/uL0.0-0.2FFulton County Health CenterBasophils/100 WBC Auto (Bld)Ordered By: Randolph Velasquez on 58-13-7183Hyfuhhcay/100 WBC (Bld)0.3 %.[facility] Bilirubin Test strip Ql (U)Ordered By: Randolph Velasquez on 84-06-7782Jegxdzjsf Ql (U)NegativeNegativeLicking Memorial HospitalColor Auto (U)Ordered By: Randolph Velasquez on 81-07-9184Zmylw (U)YellowYellowLicking Memorial HospitalEosinophils Auto (Bld) [#/Vol]Ordered By: Randolph Velasquez on 09-07-2022 Eosinophils (Bld) [#/Vol]0.0 10*3/uL0.0-0.45[facility] Eosinophils/100 WBC Auto (Bld)Ordered By: Randolph Velasquez on 09-07-2022 Eosinophils/100 WBC (Bld)0.0 %.[facility] HospitalErythrocyte distribution width Auto (RBC) [Ratio]Ordered By: Randolph Velasquez on 09-07-2022 Erythrocyte distribution width (RBC) [Ratio]13.9 %12.0-14.8L[facility] HospitalHematocrit Auto (Bld) [Volume fraction]Ordered By: Randolph Velasquez on 56-09-5741Kzvvdyyyyc (Bld) [Volume fraction]38.6 %38.8-50.0[facility] HospitalHemoglobin [Mass/volume] in BloodOrdered By: Randolph Velasquez on 73-01-4488Uoofsfcdfl (Bld) [Mass/Vol]12.6 g/dL13.0-17.0[facility] HospitalKetones Auto test strip (U) [Mass/Vol]Ordered By: Randolph Velasquez on 94-47-4195Qciroed (U) [Mass/Vol]TraceNegativeLicking Memorial Hospital Laboratory - UrinalysisOrdered By: Randolph Velasquez on 96-83-9109Qecvmej casts LM Ql (Urine sed)0-8 [LPF]0-8[facility] HospitalLeukocytes [#/volume] corrected for nucleated erythrocytes in Blood by Automated counOrdered By: Randolph Velasquez on 02-53-6731HGW corrected for nucl RBC Auto (Bld) [#/Vol]13.0 10*3/uL4.1-10.5FFulton County Health CenterLymphocytes Auto (Bld) [#/Vol] Ordered By: Randolph Velasquez on 04-82-7200Kzuegmaegvj (Bld) [#/Vol]0.5 10*3/uL 1.00-4.8[facility] HospitalLymphocytes/100 WBC Auto (Bld)Ordered By: Randolph Velasquez on 31-23-6286Nzfmhzegapg/100 WBC (Bld)3.6 %.[facility] Auto (RBC) [Entitic mass]Ordered By: Randolph Velasquez on 22-17-3661HOA (RBC) [Entitic mass]30.2 pg27.5-35.2FFulton County Health CenterMCHC Auto (RBC) [Mass/Vol]Ordered By: Randolph Velasquez on 17-34-2033FLQT (RBC) [Mass/Vol]32.7 g/dL32.5-35.6FFulton County Health CenterMCV Auto (RBC) [Entitic vol]Ordered By: Randolph Velasquez on 09-34-4943BGT (RBC) [Entitic vol]92.1 fL83.5-101L[facility] HospitalMonocytes Auto (Bld) [#/Vol] Ordered By: Randolph Velasquez on 10-88-6477Ixbsickbn (Bld) [#/Vol]0.6 10*3/uL0.0-0.8 [facility] HospitalMonocytes/100 WBC Auto (Bld)Ordered By: Randolph Velasquez on 79-63-7343Lcmlrmklq/100 WBC (Bld)4.5 %.[facility] HospitalNeutrophils Auto (Bld) [#/Vol]Ordered By: Randolph Velasquez on 09-07-2022 Neutrophils (Bld) [#/Vol]11.9 10*3/uL1.8-7.7FFulton County Health Center Neutrophils/100 WBC Auto (Bld)Ordered By: Randolph Velasquez on 09-07-2022 Neutrophils/100 WBC (Bld)91.6 %.[facility] HospitalNitrite Test strip Ql (U)Ordered By: Randolph Velasquez on 57-28-6591Vfzlzfm Ql (U)Negative NegativeLicking Memorial HospitalNo Panel InformationOrdered By: Randolph Velasquez on 18-69-1861Zfyoqmo Glucose #2 CommentCleaned meterLicking Memorial HospitalBedside Glucose CommentSee Lutheran HospitalComment on above:Glu2: Will Repeat TestNucleated erythrocytes [Presence] in Blood by Automated countOrdered By: Randolph Velasquez on 60-71-1775Zisitfxit RBC Auto Ql (Bld)0.0 /100{WBC}0-0.5FFulton County Health CenterPlatelet adequacy [Presence] in Blood by Light microscopyOrdered By: Randolph Velasquez on 38-48-2812Hawtpndov LM Ql (Bld)NormalNormBlanchard Valley Health [facility] Platelet mean volume Auto (Bld) [Entitic vol]Ordered By: Randolph Velasquez on 06-06-4948Ghkpsjym mean volume (Bld) [Entitic vol]8.3 fL6.6-10.1FFulton County Health CenterPlatelet morphology finding [Identifier] in BloodOrdered By: Randolph Velasquez on 07-53-8223Rvmtvsdo morphology finding Nom (Bld)NormalNormal [facility] HospitalPlatelets Auto (Bld) [#/Vol]Ordered By: Randolph Velasquez on 81-14-8194Kjwrbpmat (Bld) [#/Vol]227 10*3/wA359-804VywcqdmkqLicking Memorial HospitalProtein Auto test strip (U) [Mass/Vol]Ordered By: Randolph Velasquez on 89-79-6712Exiwprd (U) [Mass/Vol]100 mg/dLNegativeLicking Memorial HospitalRBC Auto (Bld) [#/Vol]Ordered By: Randolph Velasquez on 56-17-2596JVJ (Bld) [#/Vol]4.19 10*6/uL3.90-5.60L[facility] HospitalRBC morphology Ordered By: Randolph Velasquez on 00-45-8491EGQ morphology finding Nom (Bld)Normal NormalMercy Health Defiance Hospitalpecific gravity Auto test strip (U) [Rel density]Ordered By: Randolph Velasquez on 51-60-7361Rufjjraj gravity (U) [Rel density]1.0301.001-1.030[facility] Hospitalquamous epithelial cells detection in urine sediment by light microscopyOrdered By: Randolph Velasquez on 74-30-8730Fnyknhmokq cells.squamous LM Ql (Urine sed)None seen [HPF]0-2 [facility] HospitalUrine bacteria detection by automated method Ordered By: Randolph Velasquez on 19-35-5214Ljhckeqp Auto Ql (U)None seenNone Seen [facility] HospitalUrine clarity by refractometry automatedOrdered By: Randolph Velasquez on 74-57-2940Pitafkl Refractometry automated (U)ClearClear [facility] HospitalUrine glucose measurement by automated test strip (mass/volume)Ordered By: Randolph Velasquez on 89-77-1716Pacwznm Auto test strip (U) [Mass/Vol]>=1000 mg/dLNormalLicking Memorial HospitalUrine hemoglobin detection by automated test stripOrdered By: Randolph Velasquez on 50-33-9662Mhudjkweac Auto test strip Ql (U)3+NegativeLicking Memorial HospitalUrine leukocyte esterase detection by automated test stripOrdered By: Randolph Velasquez on 38-59-0011Xhtlyibkj esterase Auto test strip Ql (U)1+Negative [facility] HospitalUrobilinogen Auto test strip (U) [Mass/Vol] Ordered By: Randolph Velasquez on 46-27-4344Zhsaplgulbfu (U) [Mass/Vol]Normal mg/dL NormalLicking Memorial HospitalWBC Auto (Bld) [#/Vol]Ordered By: Randolph Velasquez on 33-14-0549TFN (Bld) [#/Vol]13.0 10*3/uL4.1-10.5FFulton County Health CenterpH Auto test strip (U)Ordered By: Randolph Velasquez on 32-10-0080xI (U)5.5 [pH]5.0-9.0[facility] HospitalBand form neutrophils/100 WBC Manual cnt (Bld)Ordered By: Lakesha Haskins on 50-08-2133Ryrr form neutrophils/100 WBC (Bld)17 %0-5FFulton County Health CenterBasophils/100 WBC Manual cnt (Bld)Ordered By: Lakesha Haskins on 85-67-9754Lpabvfdhn/100 WBC (Bld)0 %0-2FFulton County Health CenterEosinophils/100 WBC Manual cnt (Bld)Ordered By: Lakesha Haskins on 94-77-5968Oroplfrotmy/100 WBC (Bld)0 %1-3FFulton County Health CenterLaboratory - Chemistry and Chemistry - challengeOrdered By: Randolph Velasquez on 53-85-9286HI0 [Moles/Vol]25.3 mmol/L23.0-27.0[facility] HospitalHCO3 (Bld) [Moles/Vol]24.1 mmol/L23.0-29.0[facility] HospitalLymphocytes/100 WBC Manual cnt (Bld)Ordered By: Lakesha Haskins on 09-05-2022 Lymphocytes/100 WBC (Bld)8 %18-42[facility] Metamyelocytes/100 WBC Manual cnt (Bld)Ordered By: Lakesha Haskins on 09-05-2022 Metamyelocytes/100 WBC (Bld)1 %0-0[facility] HospitalMonocytes/100 WBC Manual cnt (Bld)Ordered By: Lakesha Haskins on 67-96-0589Pfaygexsl/100 WBC (Bld)8 %2-11[facility] HospitalNo Panel InformationOrdered By: Randolph Velasquez on 65-74-2089Lmyokuny Blood Base Excess0.3 mmol/L-3.0-3.0[facility] HospitalArterial Blood Oxygen Content8.3 mmol/L6.6-9.7FFulton County Health CenterArterial Blood Oxygen Zanmczfjwr21.6 %95.0-100.0[facility] HospitalArterial Blood Partial Pressure CO236.7 mm[Hg]35.0-45.0 [facility] HospitalArterial Blood Partial Pressure O275.3 mm[Hg] 80.0-100.0[facility] HospitalArterial Blood pH7.447.35-7.45 [facility] HospitalBlood Gas Critical ValueSee commentLicking Memorial HospitalComment on above:Critical Value called on: 09/05/2022 at 11:59Blood Gas Liter Flow2 L/minLicking Memorial HospitalBlood Gas Sample SiteRight brachialLicking Memorial HospitalFiO232 %[facility] HospitalOxygen Delivery DeviceNasal cannulaMercy Health Defiance Hospitalegmented neutrophils/100 WBC Manual cnt (Bld)Ordered By: Lakesha Haskins on 65-34-3025Vlalnspmp neutrophils/100 WBC (Bld)66 %50-70[facility] HospitalTroponin I.cardiac [Mass/volume] in Serum or Plasma by High sensitivity methodOrdered By: Lakesha Haskins on 17-81-3247Rdprecim I.cardiac High sensitivity method [Mass/Vol]97 pg/mL0-20[facility] Comment on above:Results calledat 0640 on 09/05/22ACETONE SERUMon 09-04-2022 ACETONENegativeNormalNEGATIVEThe [facility] HospitalComment on above:Performed By: #### ACETON #### [facility] [address] [place], [place] [address] Dr. Luis Manuel Bates 31-64-2747Dnbmqjtcvsm peptide B (Bld) [Mass/Vol]1464.0 pg/mLNormal<=1,800.0The [facility] HospitalComment on above:Performed By: #### VITAD #### [facility] [address] [place] [address] Dr. Luis Manuel Denton W MANUAL DIFFon 69-15-8233JIERITSP LYMPH #NormalThe [facility] HospitalComment on above:Performed By: #### RENETTA #### [facility] [address] [place] [address] Dr. Luis Manuel AsherATYPICAL LYMPH %NormalThe [facility]ole HospitalComment on above: Performed By: #### RENETTA #### [facility] [address] [place] [address] Dr. Luis Manuel Maravilla #0.7 103/ulCritically high0.0-0.3The [facility] Comment on above:Performed By: #### RENETTA #### [facility] [address] [place] [address] Dr. Luis Manuel Maravilla %6 %Critically high0-5The [facility] HospitalComment on above: Performed By: #### RENETTA #### [facility] [address] [place] [address] Dr. Luis Manuel Gerard #0.00 103/ulNormal0.00-0.10The [facility] HospitalComment on above:Performed By: #### RENETTA #### [facility] [address] [place] [address] Dr. Luis Manuel Gerard %0.0 %Critically low0.2-2.0The [facility] HospitalComment on above:Performed By: #### RENETTA #### [facility] [address] [place] [address] Dr. Luis Manuel Moncada #NormalThe [facility] HospitalComment on above:Performed By: #### RENETTA #### [facility] [address] [place] [address] Dr. Luis Manuel Moncada %NormalOhiohealth Doctors Hospital HospitalComment on above:Performed By: #### RENETTA #### [facility] [address] [place] [address] Dr. Luis Manuel AsherCORRECTED WBCNormal4.0-11.0The [facility] HospitalComment on above: Performed By: #### RENETTA #### [facility] [address] [place] [address] Dr. Luis Manuel Peoples #0.00 103/ulNormal0.00-0.70The [facility] HospitalComment on above:Performed By: #### RENETTA #### [facility] [address] [place] [address] Dr. Luis Manuel Peoples%0.0 %Critically low0.9-7.0The [facility] HospitalComment on above:Performed By: #### RENETTA #### [facility] [address] [place] [address] Dr. Luis Manuel AcevedoT41.3 %Critically low42.0-54.0The [facility] HospitalComment on above:Performed By: #### RENETTA #### [facility] [address] [place] [address] Dr. Luis Manuel AsherHGB13.6 g/dlCritically low14.0-18.0The [facility] HospitalComment on above:Performed By: #### RENETTA #### [facility] [address] [place] [address] Dr. Luis Manuel Nelson #0.79 103/ulCritically low1.20-3.80The [facility] Comment on above:Performed By: #### RENETTA #### [facility] [address] [place] [address] Dr. Luis Manuel Nelson%7.0 %Critically low20.5-60.0The [facility] HospitalComment on above:Performed By: #### RENETTA #### [facility] [address] [place] [address] Dr. Luis Manuel MartinezH30.4 pvLzvtmf47.9-34.0The [facility] HospitalComment on above: Performed By: #### CBCYAMILETH #### [facility] [address] [place] [address] Dr. Luis Manuel MartinezHC32.9 g/jwDwhdhn22.9-35.2The [facility] HospitalComment on above:Performed By: #### RENETTA #### [facility] [address] [place] [address] Dr. Luis Manuel MartinezV92.2 uODvtyvg16.0-94.0The [facility] HospitalComment on above: Performed By: #### RENETTA #### [facility] [address] [place] [address] [address] Luis Manuel SalcidoOCYTE #NormalAvita Health SystemComment on above: Performed By: #### RENETTA #### [facility] [address] [address] [address] Luis Manuel SalcidoOCYTE %NormalOhiohealth Doctors Hospital HospitalComment on above: Performed By: #### RENETTA #### [facility] [address] [address] [address] Luis Manuel Benito#1.36 103/ulCritically high0.30-0.80The [facility] on above:Performed By: #### RENETTA #### [facility] [address] [place] [address] Dr. Luis Manuel Benito%12.0 %Normal1.7-12.0The [facility] HospitalComment on above: Performed By: #### RENETTA #### [facility] [address] [place] [address] Dr. Luis Manuel AsherMPV10.0 fLNormal9.5-13.5The [facility] HospitalComuniversity of [facility] on above: Performed By: #### RENETTA #### [facility] [address] [place] [address] Dr. Luis Manuel Haro #NormalAvita Health SystemComment on above:Performed By: #### RENETTA #### [facility] [address] [place] [address] Dr. Luis Manuel WolfOCYTE %NormalAvita Health SystemComment on above:Performed By: #### RENETTA #### [facility] [address] [place] [address] Dr. Luis Manuel AsherNRBCNormalThEast [place] Regional HospitalComment on above:Performed By: #### RENETTA #### [facility] [address] [address] [address] Luis Manuel AsherPLT251 103/xgTeffej776-226Zay [facility] HospitalComment on above: Performed By: #### CBCMAN #### [facility] [address] [address] [address] Luis Manuel DamonC4.48 106/ulCritically low4.70-6.10The [facility] HospitalComment on above:Performed By: #### CBCMAN #### [facility] [address] [address] [address] Luis Manuel AtwoodW13.4 %Saaivo12.0-15.0The [facility] HospitalComment on above: Performed By: #### CBCYAMILETH #### [facility] [address] [address] [address] Luis Manuel Sánchez #8.47 103/ulCritically high1.40-6.50The [facility] Comment on above:Performed By: #### CBCYAMILETH #### [facility] [address] [place] [address] Dr. Luis Manuel Sánchez %75.0 %Zbqgrk66.0-75.0The [facility] HospitalComment on above: Performed By: #### CBCYAMILETH #### [facility] [address] [address] [address] Luis Manuel MedleyBC11.3 103/ulCritically high4.0-11.0The [facility] HospitalComment on above:Performed By: #### CBCYAMILETH #### [facility] [address] [place] [address] Dr. Luis Manuel Frazier BLOODon 54-89-8609Xwmeqaiqwjr examination of blood, cultureCulture Observations: NO GROWTH AT 5 DAYS.NormalThe [facility] HospitalComment on above:Performed By: #### VITAD #### [facility] [address] [place] [address] Dr. Luis Manuel AsherMicroscopic examination of blood, cultureCulture Observations: NO GROWTH AT 5 DAYS.NormalThe [facility] HospitalComment on above:Performed By: #### VITAD #### [facility] [address] [place] [address] Dr. Luis Manuel Pa-19 PCR ([facility])on 83-47-4579DZET-CoV-2 (COVID-19) RNA ABE+probe Ql (Unsp spec)Not detectedNormalNOT DETECTEDAvita Health System Comment on above:Result Comment: When diagnostic testing is negative, the [...] for this test is supported by the [place] of Health and Human Service's declaration that circumstances exist to justify the emergency use of in vitro diagnostics for the detection and/or diagnosis of the virus that causes COVID-19. This EUA will remain in effect for the duration of the COVID-19 declaration justifying emergency of IVDs, unless it is terminated or revoked by the FDA (after which the test may no longer be used).Performed By: #### VITAD #### [facility] [address] [place] [address] Dr. Luis Manuel Stevens A AND B AGon 20-38-9568LWNFCJYHFSEMN [facility] HospitalComment on above:Result Comment: Negative for Flu A protein angiten. Infection due to Flu A cannot be ruled out. FluA angiten in the sample may be below the detection limit of the test.Performed By: #### ACETON #### [facility] [address] [place] [address] Dr. Luis Manuel AsherINFLUBNEGHSTELMA [facility] on above: Result Comment: Negative for Flu B protein antigen. Infection due to Flu B cannot be ruled out. FluB antigen in the sample may be below the detection limit of the test.Performed By: #### ACETON #### [facility] [address] [place] [address] Dr. Luis Manuel Dorantes AGNegativeNormalNEGATIVE SEE COMMENTThe [facility] on above:Performed By: #### ACETON #### [facility] [address] [address] [address] Luis Manuel AsherINFLUEKERRI Lechuga AGNegativeNormalNEGATIVE SEE COMMENTThe [facility] HospitalComment on above:Performed By: #### ACETON #### [facility] [address] [place] [address] Dr. Luis Manuel AsherLACTATE/LACTIC ACIDon 88-59-3455Rxuqqnj [Moles/Vol]4.0 mmol/L Critically high0.4-1.9The [facility] HospitalComment on above:Performed By: #### LACT #### [facility] [address] [place] [address] Dr. Luis Manuel AsherLaboratory - Chemistry and Chemistry - challengeOrdered By: Lakesha Haskins on 11-18-2792Cufkcqccmwe peptide B (Bld) [Mass/Vol]200.0 pg/mL5-100 [facility] HospitalMyelocytes/100 WBC Manual cnt (Bld)Ordered By: Lakesha Haskins on 03-07-4880Dxknfiaibs/100 WBC (Bld)4 %0-0[facility] HospitalPOINT OF CARE GLUCOSEon 47-89-6755Qpwplgs [Mass/Vol]362 mg/dL Critically eneg42-239Muf [facility] HospitalComment on above:Performed By: #### POCGLUC #### [facility] [address] [place] [address] Dr. Luis Manuel AsherGlucose [Mass/Vol]352 mg/dLCritically xuek96-367Kha [facility] HospitalComment on above:Performed By: #### VITAD #### [facility] [address] [place] [address] Dr. Luis Manuel AsherPROF 14(COMP METB)on 00-86-8542Rqedptf [Mass/Vol]2.6 g/dL Critically low3.4-5.0The [facility] HospitalComment on above:Performed By: #### VITAD #### [facility] [address] [place] [address] Dr. Luis Manuel AsherAlbumin/Globulin [Mass ratio]0.5 {ratio}NormalThe [facility] HospitalComment on above:Performed By: #### VITAD #### [facility] [address] [address] [address] Luis Manuel Colin [Catalytic activity/Vol]163 U/LCritically mqbu16-825Ulz [facility] HospitalComment on above:Performed By: #### VITAD #### [facility] [address] [address] [address] Luis Manuel CadenaT [Catalytic activity/Vol]98 U/LCritically drvx30-93Ncz [facility] HospitalComment on above:Performed By: #### VITAD #### [facility] [address] [address] [address] Luis Manuel Greene gap [Moles/Vol]14.9 mmol/LNormalThe [facility] Comment on above:Performed By: #### VITAD #### [facility] [address] [address] [address] Luis Manuel AsherAST [Catalytic activity/Vol]57 U/LCritically ikkf76-40Jpx [facility] HospitalComment on above:Performed By: #### VITAD #### [facility] [address] [address] [address] Luis Manuel AsherBilirubin [Mass/Vol]0.4 mg/dLNormal0.2-1.0[facility] Comment on above:Performed By: #### VITAD #### [facility] [address] [address] [address] Luis Manuel AsherCalcium [Mass/Vol]9.4 mg/dLNormal8.5-10.1[facility] Comment on above:Performed By: #### VITAD #### [facility] [address] [address] [address] Luis Manuel AsherChloride [Moles/Vol]100 mmol/FRujnbn34-319Tdk [facility] Comment on above:Performed By: #### VITAD #### [facility] [address] [address] [address] Luis Manuel AsherCO2 [Moles/Vol]27.2 mmol/YQidiob63.0-32.0The [facility] Comment on above:Performed By: #### VITAD #### [facility] [address] [address] [address] Luis Manuel AsherCreatinine [Mass/Vol]1.45 mg/dLCritically high0.70-1.30The [facility] HospitalComment on above:Performed By: #### VITAD #### [facility] [address] [address] [address] Luis Manuel ClayGFR-AF MCGCWECZ50 mL/min/1.29s0Dwkfldhwsj low>=60The [facility] HospitalComment on above:Performed By: #### VITAD #### [facility] [address] [address] [address] Luis Manuel ClayGFR-NON AF ZJEKLNFP35 mL/min/1.23b9Iftsiebmxg low>=60The [facility] HospitalComment on above:Performed By: #### VITAD #### [facility] [address] [place] [address] Dr. Luis Manuel AsherGlobulin (S) [Mass/Vol]4.9 g/dLNormalThe [facility] HospitalComment on above:Performed By: #### VITAD #### [facility] [address] [place] [address] Dr. Luis Manuel AsherGlucose [Mass/Vol]396 mg/dLCritically dejd36-186Xdi [facility] HospitalComment on above:Performed By: #### VITAD #### [facility] [address] [place] [address] Dr. Luis Manuel AsherPotassium [Moles/Vol]4.1 mmol/LNormal3.5-5.1The [facility] Comment on above:Performed By: #### VITAD #### [facility] [address] [place] [address] Dr. Luis Manuel AsherProtein [Mass/Vol]7.5 g/dLNormal6.4-8.2The [facility] Comment on above:Performed By: #### VITAD #### [facility] [address] [address] [address] Luis Manuel AsherSodium [Moles/Vol]138 mmol/JJhyidd536-714Ale [facility] Comment on above:Performed By: #### VITAD #### [facility] [address] [address] [address] Luis Manuel Jones nitrogen [Mass/Vol]26.0 mg/dLCritically high7.0-18.0The [facility] HospitalComment on above:Performed By: #### VITAD #### [facility] [address] [address] [address] Luis Manuel AsherUrea nitrogen/Creatinine [Mass ratio]17.9 mg/mgNormalThe [facility] HospitalComment on above:Performed By: #### VITAD #### [facility] [address] [address] [address] Luis Manuel AsherPlasma cells/100 leukocytes in Blood by Manual countOrdered By: Lakesha Haskins on 93-93-1664Akxzzr cells/100 WBC Manual cnt (Bld)1 %[address]Promyelocytes/100 WBC Manual cnt (Bld)Ordered By: Lakesha Haskins on 43-64-7990Bijwmacwhwhpx/100 WBC (Bld)1 %[address] StreetTROPONIN, HIGH SENSITIVITYon 66-25-9032KWJTSN204.9 pg/mLCritically high 4.0-76.1The [facility] HospitalComment on above:Result Comment: CUT-OFF POINTS HAVE BEEN ESTABLISHED BASED ON THE FOURTH UNIVERSAL DEFINITIONS OF MYOCARDIAL INFARCTION. THE UPPER REFERENCE LIMIT (URL) OF TROPONIN, DEFINED THE 99TH PERCENTILE OF cTnI DISTRIBUTION IN A REFERENCE POPULATION, HAS BEEN CONFIRMED THE DECISION THRESHOLD FOR [place] DIAGNOSIS.Performed By: #### VITAD #### [facility] [address] [address] [address] Luis Manuel Gibson lactic acid measurementOrdered By: Lakesha Haskins on 52-18-5624Oaattdo (U) [Moles/Vol]1.6 mmol/L0.5-2.2FFulton County Health CenterXR CHEST 1 Von 03-74-1067PL CHEST 1 VONE-VIEW CHEST RADIOGRAPH, 09/04/2022 4:55 PM EST COMPARISON: Chest, 11/02/2020. CLINICAL HISTORY: SHORTNESS OF BREATH/weakness and confusion. Findings and impression: 1. Some questionable interstitial pulmonary edema suspected. Some underlying inflammatory or infectious pneumonitis cannot be excluded. 2. Borderline heart size. 3. No acute osseous abnormality. Electronically authenticated by: Gael KENNEY Date: 2022-09-04 17:54NormalThEast Ohio Regional HospitalMICROALBUMIN URINEon 35-45-6644Lxouopg, Urine30.0 ug/mLNormal Not Estab.The [facility] HospitalComment on above:Performed By: #### ACETON #### [facility] [address] [address] [address] Luis Manuel Denton AUTO DIFFon 10-31-7990QONX #0.0 103/ulNormal0.0-0.1The [facility] HospitalComment on above:Performed By: #### CBC #### [facility] [address] [place] [address] Dr. Luis Manuel AsherBasophils/100 WBC (Bld)0.5 %Normal0.2-2.0The [facility] Comment on above:Performed By: #### CBC #### [facility] [address] [address] [address] Luis Manuel Montenegro #0.1 103/ulNormal0.0-0.7The [facility] HospitalComment on above: Performed By: #### CBC #### [facility] [address] [place] [address] Dr. Luis Manuel Clayosinophils/100 WBC (Bld)1.4 %Normal0.9-7.0The [facility] Comment on above:Performed By: #### CBC #### [facility] [address] [place] [address] Dr. Luis Manuel Clayrythrocyte distribution width (RBC) [Ratio]13.1 %Bgmxxf01.0-15.0 The [facility] HospitalComment on above:Performed By: #### CBC #### [facility] [address] [place] [address] Dr. Luis Manuel AsherHematocrit (Bld) [Volume fraction]39.3 %Critically low42.0-54.0 The [facility] HospitalComment on above:Performed By: #### CBC #### [facility] [address] [address] [address] Luis Manuel AsherHemoglobin (Bld) [Mass/Vol]13.3 g/dLCritically low14.0-18.0The [facility] HospitalComment on above:Performed By: #### CBC #### [facility] [address] [place] [address] Dr. Luis Manuel Negron #0.02 10e3/ulNormal0.00-0.03The [facility] HospitalComment on above:Performed By: #### CBC #### [facility] [address] [place] [address] Dr. Luis Manuel Negron %0.3 %Normal0.0-0.5The [facility] HospitalComment on above: Performed By: #### CBC #### [facility] [address] [place] [address] Dr. Luis Manuel Kiran #0.6 103/ulCritically low1.2-3.8The [facility] Comment on above:Performed By: #### CBC #### [facility] [address] [place] [address] Dr. Luis Manuel Joycehocytes/100 WBC (Bld)9.1 %Critically low20.5-60.0The [facility] HospitalComment on above:Performed By: #### CBC #### [facility] [address] [place] [address] Dr. Luis Manuel MarieUAL DIFF REQNONormalThe [facility] HospitalComment on above: Performed By: #### CBC #### [facility] [address] [place] [address] Dr. Luis Manuel Martinez (RBC) [Entitic mass]31.0 hoXivtxc00.9-34.0The [facility] HospitalComment on above:Performed By: #### CBC #### [facility] [address] [place] [address] Dr. Luis Manuel Martinez (RBC) [Mass/Vol]33.8 g/xSDrkftx53.9-35.2The [facility] HospitalComment on above:Performed By: #### CBC #### [facility] [address] [address] [address] Luis Manuel MartinezV (RBC) [Entitic vol]91.6 wKEicexa48.0-94.0The [facility] HospitalComment on above:Performed By: #### CBC #### [facility] [address] [place] [address] Dr. Luis Manuel Randle #0.7 103/ulNormal0.3-0.8The [facility] HospitalComment on above:Performed By: #### CBC #### [facility] [address] [place] [address] Dr. Luis Manuel Hassanocytes/100 WBC (Bld)10.3 %Normal1.7-12.0The [facility] Comment on above:Performed By: #### CBC #### [facility] [address] [place] [address] Dr. Luis Manuel PhanUT #5.0 103/ulNormal1.4-6.5The [facility] HospitalComment on above:Performed By: #### CBC #### [facility] [address] [place] [address] Dr. Luis Manuel Phanutrophils/100 WBC (Bld)78.4 %Critically high43.0-75.0The [facility] HospitalComment on above:Performed By: #### CBC #### [facility] [address] [place] [address] Dr. Luis Manuel Chunlet mean volume (Bld) [Entitic vol]9.7 fLNormal9.5-13.5The [facility] HospitalComment on above:Performed By: #### CBC #### [facility] [address] [place] [address] Dr. Luis Manuel AsherPLT148 103/ulCritically geg430-556Tvd [facility] HospitalComment on above:Performed By: #### CBC #### [facility] [address] [place] [address] Dr. Luis Manuel AsherRBC4.29 106/ulCritically low4.70-6.10The [facility] HospitalComment on above:Performed By: #### CBC #### [facility] [address] [address] [address] Luis Manuel AsherWBC6.4 103/ulNormal4.0-11.0The [facility] HospitalComment on above: Performed By: #### CBC #### [facility] [address] [address] [address] Luis Manuel AsherGLYCOHEMOGLOBIN A1Con 77-95-4330WUR RECOMMENDATIONSEE BELOWNormal The [facility] HospitalComment on above:Result Comment: ADA RECOMMENDED LIMIT 4.0 - 6.0 ADA THERAPEUTIC TARGET < 7.0 ACTION SUGGESTED > 7.0Performed By: #### ACETON #### [facility] [address] [place] [address] Dr. Luis Manuel AsherGlucose [Mass/Vol]169 mg/dLNormalThe [facility] HospitalComment on above:Performed By: #### ACETON #### [facility] [address] [place] [address] Dr. Luis Manuel AsherHbA1c (Bld) [Mass fraction]7.5 %Critically high4.5-6.2The [facility] HospitalComment on above:Performed By: #### ACETON #### [facility] [address] [place] [address] Dr. Luis Manuel AsherPROF CHEM 8 (BAS METB)on 56-16-2560Rciie gap [Moles/Vol]7.8 mmol/LNormalThe [facility] HospitalComment on above:Performed By: #### BMP #### [facility] [address] [place] [address] Dr. Luis Manuel AsherCalcium [Mass/Vol]8.3 mg/dLCritically low8.5-10.1The [facility] HospitalComment on above:Performed By: #### BMP #### [facility] [address] [place] [address] Dr. Luis Manuel AsherChloride [Moles/Vol]97 mmol/LCritically ooq63-889Iuv [facility] HospitalComment on above:Performed By: #### BMP #### [facility] [address] [address] [address] Lusi Manuel AsherCO2 [Moles/Vol]29.6 mmol/OXabsxy94.0-32.0The [facility] Comment on above:Performed By: #### BMP #### [facility] [address] [address] [address] Luis Manuel AsherCreatinine [Mass/Vol]1.36 mg/dLCritically high0.70-1.30The [facility] HospitalComment on above:Performed By: #### BMP #### [facility] [address] [address] [address] Issa ChangEGFR-AF CYPRIOT>60Normal>=60The [facility] HospitalComment on above:Performed By: #### BMP #### [facility] [address] [place] [address] Dr. Luis Manuel ClayGFR-NON AF QDBBFASE64 mL/min/1.26h1Jhossunert low>=60The [facility] HospitalComment on above:Performed By: #### BMP #### [facility] [address] [place] [address] Dr. Luis Manuel AsherGlucose [Mass/Vol]331 mg/dLCritically kbnq16-171Lse [facility] HospitalComment on above:Performed By: #### BMP #### [facility] [address] [place] [address] Dr. Luis Manuel AsherPotassium [Moles/Vol]4.4 mmol/LNormal3.5-5.1The [facility] Comment on above:Performed By: #### BMP #### [facility] [address] [address] [address] Luis Manuel AsherSodium [Moles/Vol]130 mmol/LCritically hzx318-197Oks [facility] HospitalComment on above:Performed By: #### BMP #### [facility] [address] [address] [address] Luis Manuel AsherUrea nitrogen [Mass/Vol]15.0 mg/dLNormal7.0-18.0The [facility] HospitalComment on above:Performed By: #### BMP #### [facility] [address] [address] [address] Luis Manuel AsherUrea nitrogen/Creatinine [Mass ratio]11.0 mg/mgNoMercy Health St. Anne HospitalComment on above:Performed By: #### BMP #### [facility] [address] [address] [address] Luis Manuel AsherFERRITINon 82-50-0522Cwfviejn [Mass/Vol]57.0 ng/mLNormal 17.9-464.0The [facility] HospitalComment on above:Performed By: #### FERR #### [facility] [address] [address] [address] Luis Manuel AsherGLYCOHEMOGLOBIN A1Con 44-47-3701SAM RECOMMENDATIONADA THERAPEUTIC TARGET 6.0 - 7.0 ACTION SUGGESTED > 7.0NoMercy Health St. Anne HospitalComment on above:Performed By: #### A1C #### [facility] [address] [place] [address] Dr. Luis Manuel AsherGlucose [Mass/Vol]146 mg/dLNoMercy Health St. Anne HospitalComment on above:Performed By: #### A1C #### [facility] [address] [place] [address] Dr. Luis Manuel AsherHbA1c (Bld) [Mass fraction]6.7 %Critically high<=6.0The [facility] HospitalComment on above:Performed By: #### A1C #### [facility] [address] [place] [address] Dr. Luis Manuel Denton AUTO DIFFon [id number] #0.0 103/ulNormal0.0-0.1The [facility] HospitalComment on above:Performed By: #### VITAD #### [facility] [address] [address] [address] Luis Manuel AsherBasophils/100 WBC (Bld)0.6 %Normal0.2-2.0The [facility] Comment on above:Performed By: #### VITAD #### [facility] [address] [address] [address] Issa ChangEO #0.2 103/ulNormal0.0-0.7The [facility] HospitalComment on above: Performed By: #### VITAD #### [facility] [address] [place] [address] Dr. Luis Manuel Clayosinophils/100 WBC (Bld)2.9 %Normal0.9-7.0The [facility] Comment on above:Performed By: #### VITAD #### [facility] [address] [place] [address] Dr. Luis Manuel Clayrythrocyte distribution width (RBC) [Ratio]13.1 %Uhqiuw98.0-15.0 The [facility] HospitalComment on above:Performed By: #### VITAD #### [facility] [address] [place] [address] Dr. Luis Manuel AsherHematocrit (Bld) [Volume fraction]42.3 %Hogras94.0-54.0The [facility] HospitalComment on above:Performed By: #### VITAD #### [facility] [address] [place] [address] Dr. Luis Manuel AsherHemoglobin (Bld) [Mass/Vol]14.0 g/bDTupvfx55.0-18.0The [facility] HospitalComment on above:Performed By: #### VITAD #### [facility] [address] [place] [address] Dr. Luis Manuel Negron #0.02 10e3/ulNormal0.00-0.03The [facility] HospitalComment on above:Performed By: #### VITAD #### [facility] [address] [place] [address] Dr. Luis Manuel Negron %0.4 %Normal0.0-0.5The [facility] HospitalComment on above: Performed By: #### VITAD #### [facility] [address] [place] [address] Dr. Luis Manuel Kiran #0.8 103/ulCritically low1.2-3.8The [facility] Comment on above:Performed By: #### VITAD #### [facility] [address] [place] [address] Dr. Luis Manuel Perezmphocytes/100 WBC (Bld)15.5 %Critically low20.5-60.0The [facility] HospitalComment on above:Performed By: #### VITAD #### [facility] [address] [place] [address] Dr. Luis Manuel Self DIFF REQNONormalThe [facility] HospitalComment on above: Performed By: #### VITAD #### [facility] [address] [place] [address] Dr. Luis Manuel Martinez (RBC) [Entitic mass]30.5 jiQkblca05.9-34.0The [facility] HospitalComment on above:Performed By: #### VITAD #### [facility] [address] [place] [address] Dr. Luis Manuel Martinez (RBC) [Mass/Vol]33.1 g/zROfamxi88.9-35.2The [facility] HospitalComment on above:Performed By: #### VITAD #### [facility] [address] [place] [address] Dr. Luis Manuel Martinez (RBC) [Entitic vol]92.2 bMHapqnm67.0-94.0The [facility] HospitalComment on above:Performed By: #### VITAD #### [facility] [address] [place] [address] Dr. Luis Manuel Randle #0.5 103/ulNormal0.3-0.8The [facility] HospitalComment on above:Performed By: #### VITAD #### [facility] [address] [place] [address] Dr. Luis Manuel Hassanocytes/100 WBC (Bld)10.0 %Normal1.7-12.0The [facility] Comment on above:Performed By: #### VITAD #### [facility] [address] [place] [address] Dr. Luis Manuel Devi #3.6 103/ulNormal1.4-6.5The [facility] HospitalComment on above:Performed By: #### VITAD #### [facility] [address] [place] [address] Dr. Luis Manuel AsherNeutrophils/100 WBC (Bld)70.6 %Dnlxmk73.0-75.0The [facility] on above:Performed By: #### VITAD #### [facility] [address] [place] [address] Dr. Luis Manuel AsherPlatelet mean volume (Bld) [Entitic vol]10.1 fLNormal9.5-13.5The [facility] HospitalComment on above:Performed By: #### VITAD #### [facility] [address] [place] [address] Dr. Luis Manuel AsherPLT161 103/dlRscqbd312-442Vpr [facility] on above: Result Comment: smear reviewed for plateletsPerformed By: #### VITAD #### [facility] [address] [place] [address] Dr. Luis Manuel AsherRBC4.59 106/ulCritically low4.70-6.10The [facility] HospitalComun[facility] on above:Performed By: #### VITAD #### [facility] [address] [place] [address] Dr. Luis Manuel AsherWBC5.1 103/ulNormal4.0-11.0The [facility] on above: Performed By: #### VITAD #### [facility] [address] [place] [address] Dr. Luis Manuel AsherPROF 14(COMP METB)on 18-29-1428Mbtvwja [Mass/Vol]3.9 g/dLNormal 3.5-5.0The [facility] HospitalComment on above:Performed By: #### TSH, CMP #### [facility] [address] [place] [address] Dr. Luis Manuel AsherAlbumin/Globulin [Mass ratio]1.2 {ratio}NormalThe [facility] on above:Performed By: #### TSH, CMP #### [facility] [address] [place] [address] Dr. Luis Manuel CadenaP [Catalytic activity/Vol]85 U/MDemaxr02-358Hll [facility] HospitalComment on above:Performed By: #### TSH, CMP #### [facility] [address] [address] [address] Luis Manuel Gurrola [Catalytic activity/Vol]28 U/LEkyqnw07-05Csx [facility] HospitalComment on above:Performed By: #### TSH, CMP #### [facility] [address] [address] [address] Luis Manuel Quanon gap [Moles/Vol]8.6 mmol/LNormalThe [facility] HospitalComment on above:Performed By: #### TSH, CMP #### [facility] [address] [place] [address] Dr. Luis Manuel AsherAST [Catalytic activity/Vol]14 U/LCritically bse94-27Keg [facility] HospitalComment on above:Performed By: #### TSH, CMP #### [facility] [address] [place] [address] Dr. Luis Manuel AsherBilirubin [Mass/Vol]0.4 mg/dLNormal0.2-1.3TProMedica [facility] Comment on above:Performed By: #### TSH, CMP #### [facility] [address] [place] [address] Dr. Luis Manuel AsherCalcium [Mass/Vol]9.7 mg/dLNormal8.4-10.2[facility] Comment on above:Performed By: #### TSH, CMP #### [facility] [address] [place] [address] Dr. Luis Manuel AsherChloride [Moles/Vol]99 mmol/ETwythj49-125Mgx [facility] Comment on above:Performed By: #### TSH, CMP #### [facility] [address] [place] [address] Dr. Luis Manuel AsherCO2 [Moles/Vol]32.2 mmol/LCritically high22.0-30.0The [facility] HospitalComment on above:Performed By: #### TSH, CMP #### [facility] [address] [place] [address] Dr. Yilan ChangCreatinine [Mass/Vol]1.20 mg/dLNormal0.66-1.25The [facility] HospitalComment on above:Performed By: #### TSH, CMP #### [facility] [address] [place] [address] Dr. Luis Manuel ClayGFR-AF CYPRIOT>60Normal>=60The [facility] HospitalComment on above:Performed By: #### TSH, CMP #### [facility] [address] [address] [address] Luis Manuel ClayGFR-NON AF RGXVKHSL33 mL/min/1.05n8Oksnvkvjjo low>=60The [facility] HospitalComment on above:Performed By: #### TSH, CMP #### [facility] [address] [place] [address] Dr. Luis Manuel AsherGlobulin (S) [Mass/Vol]3.2 g/dLNormalThe [facility] HospitalComment on above:Performed By: #### TSH, CMP #### [facility] [address] [place] [address] Dr. Luis Manuel AsherGlucose [Mass/Vol]135 mg/dLCritically dwwq36-536GukAvita Health SystemComment on above:Performed By: #### TSH, CMP #### [facility] [address] [place] [address] Dr. Luis Manuel AsherPotassium [Moles/Vol]4.8 mmol/LNormal3.4-5.0[facility] Comment on above:Performed By: #### TSH, CMP #### [facility] [address] [place] [address] Dr. Luis Manuel AsherProtein [Mass/Vol]7.1 g/dLNormal6.1-8.2[facility] Comment on above:Performed By: #### TSH, CMP #### [facility] [address] [place] [address] Dr. Luis Manuel AsherSodium [Moles/Vol]135 mmol/LCritically [id number] [facility] HospitalComment on above:Performed By: #### TSH, CMP #### [facility] [address] [place] [address] Dr. Luis Manuel Jones nitrogen [Mass/Vol]19.0 mg/dLNormal9.0-20.0[facility] SystemComment on above:Performed By: #### TSH, CMP #### [facility] [address] [place] [address] Dr. Luis Manuel Jones nitrogen/Creatinine [Mass ratio]15.8 mg/mgNoMercy Health St. Anne HospitalComment on above:Performed By: #### TSH, CMP #### [facility] [address] [place] [address] Dr. Luis Manuel GuzmanHocatrachita 76-39-8898DZI4.146 uIU/mLNormal0.470-4.680The [facility] HospitalCom[facility] on above:Performed By: #### VITAD #### [facility] [address] [place] [address] Dr. Luis Manuel Guzman GALI BELOWUniversity Hospitals Conneaut Medical CenterComment on above: Result Comment: <0.34 UIU/ml HYPERTHYROID 0.34-5.60 UIU/ml EUTHYROID >5.60 UIU/ml HYPOTHYROIDPerformed By: #### VITAD #### [facility] [address] [place] [address] Dr. Luis Manuel AsherVITAMIN D 25 OHon 12-98-9139YKQ D 25-OH84.6 ng/mLNormalAvita Health SystemComuniversity of [facility] on above:Performed By: #### VITAD #### [facility] [address] [place] [address] Dr. Luis Manuel TALBERTValentine [facility] HospitalComment on above: Result Comment: <20 ng/mL Vit D deficient 20 - <30 ng/mL Vit D insufficient 30 - 100 ng/mL Vit D sufficient >100 ng/mL Potential ToxicityPerformed By: #### VITAD #### [facility] [address] [place] [address] Dr. Luis Manuel Asher Vital Signs Date TimeVital SignValuePerforming SpijehilcIhsnhfgy58-92-5988 11:59-0400Body yrbjwj336.34 cmBenjamin Ball DO Work Phone: 1(419)[address]09-16-2025 11:59-0400 Body mass index (BMI) [Ratio]33 kg/y3Lplwveba Ball DO Work Phone: 1419)[address] [place], [place] 5044409-16-2025 11:59-0400 Body cfykat045.55 kgBenjamin Ball DO Work Phone: 1419)[address] [place], [place] 5044409-16-2025 11:59-0400 Diastolic blood dkasxltn56 mm[Hg]Erich Ball DO Work Phone: 1419)[address] [place], [place] 5044409-16-2025 11:59-0400 Heart rate89 /minBenjamin Ball DO Work Phone: 1419)[address] [place], [place] 5044409-16-2025 11:59-0400 Respiratory rate12 /minBenjamin Ball DO Work Phone: 1419)[address] [place], [place] 5044409-16-2025 11:59-0400 Systolic blood riflxtaj177 mm[Hg]Erich Ball DO Work Phone: 1419)[address] [place], [place] 5044408-22-2025 11:00-0400 Body qzrifm526.34 cmBenjamin Ball DO Work Phone: 1(390)[address] [place], [place] 5044408-22-2025 11:00-0400 Body mass index (BMI) [Ratio]33.2 kg/x1Pnqdvqjb Ball DO Work Phone: 1(612)[address] [place], [place] 5044408-22-2025 11:00-0400 Body .95 kgBenjamin Ball DO Work Phone: 1419)[address] [place], [place] 5044408-22-2025 11:00-0400 Diastolic blood mm[Hg]Erich Ball DO Work Phone: 1419)[address] [place], [place] 5044408-22-2025 11:00-0400 Heart rate88 /minBenjamin Ball DO Work Phone: 1419)[address] [place], [place] 5044408-22-2025 11:00-0400 Respiratory rate14 /minBenjamin Ball DO Work Phone: 1419)[address]08-22-2025 11:00-0400 SaO2% (BldA) [Mass fraction]98 %Erich Ball DO Work Phone: 1419)[address] [place], [place] 5044408-22-2025 11:00-0400 Systolic blood edgtjirs026 mm[Hg]Erich Ball DO Work Phone: 1419)[address] [place], [place] 5044408-11-2025 13:00-0400 Body .34 cmBenjamin Ball DO Work Phone: 1(419)[address] [place], [place] 5044408-11-2025 13:00-0400 Body mass index (BMI) [Ratio]33.5 kg/w3Knvlfsgj Ball DO Work Phone: 1(419)[address] [place], [place] 5044408-11-2025 13:00-0400 Body nklbok342.86 kgBenjamin Ball DO Work Phone: 1419)[address] [place], [place] 5044408-11-2025 13:00-0400 Diastolic blood ptvjhouw43 mm[Hg]Erich Ball DO Work Phone: 1(419)[address] [place], [place] 5044408-11-2025 13:00-0400 Heart rate84 /minBenjamin Ball DO Work Phone: 1(540)[address] [place], [place] 5044408-11-2025 13:00-0400 Respiratory rate16 /minBenjamin Ball DO Work Phone: 1(419)[address] [place], [place] 5044408-11-2025 13:00-0400 SaO2% (BldA) [Mass fraction]93 %Erich Ball DO Work Phone: 1(419)[address] [place], [place] 5044408-11-2025 13:00-0400 Systolic blood bgmixzpe743 mm[Hg]Erich Ball DO Work Phone: 1419)[address] [place], [place] 5044405-22-2025 10:36-0400 Body .88 cmBenjamin Ball DO Work Phone: 1419)[address] [place], [place] 5044405-22-2025 10:36-0400 Body mass index (BMI) [Ratio]33.3 kg/r6Ciyiejxq Ball DO Work Phone: 1(419)[address] [place], [place] 5044405-22-2025 10:36-0400 Body .35 kgBenjamin Ball DO Work Phone: 1(419)[address] [place], [place] 5044405-22-2025 10:36-0400 Diastolic blood mm[Hg]Erich Ball DO Work Phone: 1(419)[address] [place], [place] 5044405-22-2025 10:36-0400 Heart rate83 /minBenjamin Ball DO Work Phone: 1(419)[address] [place], [place] 5044405-22-2025 10:36-0400 Respiratory rate12 /minBenjamin Ball DO Work Phone: 1(419)[address] [place], [place] 5044405-22-2025 10:36-0400 Systolic blood bzyteezt858 mm[Hg]Erich Ball DO Work Phone: 1419)[address] [place], [place] 5044404-14-2025 15:25-0400 Body pfuiuu141.88 cmBenjamin Ball DO Work Phone: 1(419)[address] [place], [place] 5044404-14-2025 15:25-0400 Body mass index (BMI) [Ratio]32.3 kg/b5Jzgujhmb Ball DO Work Phone: 1(419)[address] [place], [place] 5044404-14-2025 15:25-0400 Body zwvgyy113.95 kgBenjamin Ball DO Work Phone: 1(419)[address] [place], [place] 5044404-14-2025 15:25-0400 Diastolic blood mcuigquy22 mm[Hg]Erich Ball DO Work Phone: 1(419)[address] [place], [place] 5044404-14-2025 15:25-0400 Diastolic blood ftttjsik41 mm[Hg]Erich Ball DO Work Phone: 1419)[facility] [place], [place] 4746004-14-2025 15:25-0400 Heart rate83 /minBenjamin Ball DO Work Phone: 1(419)[address] [place], [place] 5044404-14-2025 15:25-0400 Respiratory rate12 /minBenjamin Ball DO Work Phone: 1(419)[address] [place], [place] 5044404-14-2025 15:25-0400 Systolic blood ypsvdwlt348 mm[Hg]Erich Ball DO Work Phone: 1419)[address] [place], [place] 5044404-14-2025 15:25-0400 Systolic blood lestvfiq856 mm[Hg]Erich Ball DO Work Phone: 1419)[address] [place], [place] 5044403-06-2025 09:02-0500 Body yiiamv648.88 cmBenjamin Ball DO Work Phone: 1(419)[address] [place], [place] 5044403-06-2025 09:02-0500 Body mass index (BMI) [Ratio]32.3 kg/x0Realdunb Ball DO Work Phone: 1(419)[address] [place], [place] 5044403-06-2025 09:02-0500 Body glqqeg233.95 kgBenjamin Ball DO Work Phone: 1419)[address] [place], [place] 5044403-06-2025 09:02-0500 Diastolic blood ckofhyzg25 mm[Hg]Erich Ball DO Work Phone: 1(419)[address] [place], [place] 5044403-06-2025 09:02-0500 Heart rate74 /minBenjamin Ball DO Work Phone: 1(507)[address] [place], [place] 5044403-06-2025 09:02-0500 Respiratory rate20 /minBenjamin Ball DO Work Phone: 1(049)[address] [place], [place] 5044403-06-2025 09:02-0500 SaO2% (BldA) [Mass fraction]97 %Erich Ball DO Work Phone: 1(419)[address] [place], [place] 5044403-06-2025 09:02-0500 Systolic blood xulqdgqo717 mm[Hg]Erich Ball DO Work Phone: [address] [place], [place] 5044402-20-2025 11:10-0500 Diastolic blood qylckvvl28 mm[Hg]Erich Ball DO Work Phone: 1419)[address] [place], [place] 5044402-20-2025 11:10-0500 Heart rate69 /minBenjamin Ball DO Work Phone: 1(419)483-[address] [place], [place] 4746002-20-2025 11:10-0500 Respiratory rate16 /minBenjamin Ball DO Work Phone: 1(237)[address] [place], [place] 5044402-20-2025 11:10-0500 SaO2% (BldA) [Mass fraction]96 %Erich Ball DO Work Phone: 1419)[address] [place], [place] 5044402-20-2025 11:10-0500 Systolic blood mm[Hg]Erich Ball DO Work Phone: 1(297)[address] [place], [place] 5044402-20-2025 09:21-0500 Body anrger746.88 cmBenjamin Ball DO Work Phone: 1(336)[address] [place], [place] 5044402-20-2025 09:21-0500 Body bjancq809.22 kgBenjamin Ball DO Work Phone: 1(739)[address] [place], [place] 5044402-19-2025 11:43-0500 Body duwtlk246.88 cmBenjamin Ball DO Work Phone: 1(384)[address] [place], [place] 5044402-19-2025 11:43-0500 Body mass index (BMI) [Ratio]32.1 kg/j4Osgzthgb Ball DO Work Phone: 1(087)[address] [place], [place] 5044402-19-2025 11:43-0500 Body layavp075.67 kgBenjamin Ball DO Work Phone: 1(607)[address] [place], [place] 5044402-19-2025 11:43-0500 Diastolic blood ezixbofc66 mm[Hg]Erich Ball DO Work Phone: 1(734)[facility] [place], [place] 4746002-19-2025 11:43-0500 Heart rate78 /minBenjamin Ball DO Work Phone: 1(643)[facility] [place], [place] 4746002-19-2025 11:43-0500 Respiratory rate20 /minBenjamin Ball DO Work Phone: 1(034)[address] [place], [place] 5044402-19-2025 11:43-0500 Systolic blood bhnoagqt900 mm[Hg]Erich Ball DO Work Phone: 1(757)375-23[facility]02-12-2025 12:00-0500 Diastolic blood dwslifas55 mm[Hg]Erich Ball DO Work Phone: 1(732)372-69[facility]02-12-2025 12:00-0500 Heart rate85 /minBenjamin Ball DO Work Phone: 1(213)813-[address] [place], [place] 4746002-12-2025 12:00-0500 Respiratory rate20 /minBenjamin Ball DO Work Phone: 1(453)671-[address] [place], [place] 4746002-12-2025 12:00-0500 SaO2% (BldA) [Mass fraction]97 %Erich Ball DO Work Phone: 1(769)077-[address] [place], [place] 4746002-12-2025 12:00-0500 Systolic blood zyllujwp884 mm[Hg]Erich Ball DO Work Phone: 1(194)[facility] [place], [place] 4746002-12-2025 08:00-0500 Body rshpivuiasp88.8 [degF]Erich Ball DO Work Phone: 1(943)108-[address] [place], [place] 4746002-12-2025 04:27-0500 Body mvdeie069.6 kgBenjamin Ball DO Work Phone: 1(160)148-[address] [place], [place] 4746002-11-2025 16:00-0500 Body tlcygp738.88 cmBenjamin Ball DO Work Phone: 1(513)070-[address] [place], [place] 4746002-03-2025 14:35-0500 Body mass index (BMI) [Ratio]33.19 kg/u4YtibcqJailyn Sepulveda JAVA MANAGER Work Phone: [facility]villeJvrrolhofh70-91-3839 14:35-0500Body klchis213.96 kgJailyn Sepulveda JAVA MANAGER Work Phone: [facility]SmithvilleOpvcxgklvj79-19-8941 14:35-0500Diastolic blood uqjmaewf17 mm[Hg]Jailyn Sepulveda JAVA MANAGER Work Phone: noF[facility]gibbon HospitalBsycyihzpz64-21-0453 14:35-0500Heart rate87 /min Jailyn Sepulveda JAVA MANAGER Work Phone: 1(419)483-[address] [place], [place] [address]Gyuywscuza79-94-8936 14:35-0500Systolic blood uomjbkhi693 mm[Hg]Jailyn Sepulveda JAVA MANAGER Work Phone: [facility]SmithvilleMnnwqbfijg19-33-6327 14:09-0500Body uuwntg461.34 cmL[facility]11-13-2024 14:09-0500Body mass index (BMI) [Ratio]33.5 kg/d2XqopzrvclLicking Memorial Hospital11-13-2024 14:09-0500Body leiwbj015.03 kgLicking [facility] Hospital11-13-2024 14:09-0500Diastolic blood gbytjwah43 mm[Hg][facility]11-13-2024 14:09-0500 Heart rate76 /[facility]11-13-2024 14:09-0500 Respiratory rate12 /[facility]11-13-2024 14:09-0500 Systolic blood bvonlxvl030 mm[Hg][facility]11-04-2024 13:05-0500Body mass index (BMI) [Ratio]33.05 kg/n0YamjcgJailyn Sepulveda JAVA MANAGER Work Phone: [facility]SmithvilleEnteqpovwr06-06-6811 13:05-0500Body uhgeqk295.5 kgJailyn Sepulveda JAVA MANAGER Work Phone: [facility]SmithvilleOtfnfvjary60-75-6512 13:05-0500Diastolic blood isjgsasq45 mm[Hg]Jailyn Sepulveda JAVA MANAGER Work Phone: [facility]SmithvilleFsjwoptikr35-81-8340 13:05-0500Heart rate75 /min Jailyn Sepulveda JAVA MANAGER Work Phone: [facility]–SmithvilleWijrrrnoyo45-98-8683 13:05-0500Systolic blood rdioeexm819 mm[Hg]Jailyn Sepulveda JAVA MANAGER Work Phone: [facility]–SmithvilleAkznhvdcov41-14-3487 10:11-0400Body pzsvif991.34 cmL[facility] Hospital08-06-2024 10:11-0400Body mass index (BMI) [Ratio]32.5 kg/g1TzhkgejsyLicking Memorial Hospital08-06-2024 10:11-0400Body mxbilp661.68 kgLicking Memorial Hospital08-06-2024 10:11-0400Diastolic blood qlcvrlyw44 mm[Hg][facility]08-06-2024 10:11-0400 Heart rate89 /[facility]08-06-2024 10:11-0400 Respiratory rate12 /[facility]08-06-2024 10:11-0400 Systolic blood dofglagm812 mm[Hg][facility]06-05-2024 11:15-0400Body gsuqsv923.34 cmLicking [facility] Hospital06-05-2024 11:15-0400Body mass index (BMI) [Ratio]32.8 kg/t3VyyzmmghrLicking Memorial Hospital06-05-2024 11:15-0400Body lcfzol544.65 kgLicking [facility] Hospital 02-05-2024 11:15-0400Diastolic blood qcysxxbf70 mm[Hg][facility]06-05-2024 11:15-0400Heart rate84 /[facility] 02-05-2024 11:15-0400Respiratory rate12 /[facility] 02-05-2024 11:15-0400Systolic blood kmxbgqip716 mm[Hg][facility]03-06-2024 10:39-0500Body kicdfb858.34 cmLicking [facility] Hospital03-06-2024 10:39-0500Body mass index (BMI) [Ratio]32.8 kg/v1JdybtcnxoLicking Memorial Hospital03-06-2024 10:39-0500Body sfkigm433.82 kgLicking Memorial Hospital03-06-2024 10:39-0500Diastolic blood nrjwqahj49 mm[Hg] [facility]03-06-2024 10:39-0500Heart rate89 /[facility]03-06-2024 10:39-0500Respiratory rate20 /[facility]03-06-2024 10:39-0500Systolic blood rimhzgmo863 mm[Hg] [facility]12-06-2023 10:30-0500Body .34 cm Erich Ball Other [facility] [employer] Other 12-06-2023 10:30-0500Body mass index (BMI) [Ratio] 34.42 kg/r7Xxxmcmmx Ball Other [employer] Other 12-06-2023 10:30-0500Body wazfxv720.95 kgBenjamin Ball Other [facility] [employer] Other 12-06-2023 10:30-0500Diastolic blood bpzrzybv83 mm[Hg] Erich Ball Other [facility] [employer] Other 12-06-2023 10:30-0500Respiratory rate12 /minBenjamin Ball Other [facility] [employer] Other 12-06-2023 10:30-0500Systolic blood pkukejwl220 mm[Hg] Erich Ball Other [employer] Other 09-06-2023 11:00-0400Body jylhxg745.34 cmBenjamin Ball Other [facility] [employer] Other 09-06-2023 11:00-0400Body mass index (BMI) [Ratio] 34.84 kg/l4Eyczxgqh Ball Other [employer] Other 09-06-2023 11:00-0400Body wjuuiv887.31 kgBenjamin Ball Other [employer] Other 09-06-2023 11:00-0400Diastolic blood ubwitdrb06 mm[Hg] Erich Ball Other [employer] Other 09-06-2023 11:00-0400Respiratory rate12 /minBenjamin Ball Other [facility] [employer] Other 09-06-2023 11:00-0400Systolic blood qbjikuso328 mm[Hg] Erich Ball Other [facility] [employer] Other 07-10-2023 12:48-0400Body yepfhh148.88 cmBenjamin E Ball Work Phone: [phone]-Zghuw [employer] 250 DO Work Phone: 1(418) 734-758707-10-2023 12:48-0400Body mass index (BMI) [Ratio] 33.92 kg/i7Rfrpunkj E Ball Work Phone: mp239-6901ZA-Sagif [employer] 250 DO Work Phone: 1(805) 287-165907-10-2023 12:48-0400Body surface area Derived from formula2.34 v9Plzyujev E Ball Work Phone: mp431-4912AS-Brbpf [employer] 250 DO Work Phone: 1(196) 653-228307-10-2023 12:48-0400Body .46 kgBenjamin E Ball Work Phone: mp486-3575BH-Wfwio [place] [employer] 250 DO Work Phone: 1(972) 768-503407-10-2023 12:48-0400Diastolic blood fyxtvfom58 mm[Hg] Erich E Ball Work Phone: mp277-9821RF-Qyrnm [employer] 250 DO Work Phone: 1(521) 815-697807-10-2023 12:48-0400Heart rate78 /minBenjamin E Ball Work Phone: mp232-9342GP-Urdfs [employer] 250 DO Work Phone: 1(873) 458-244807-10-2023 12:48-0400Systolic blood melgtmwn598 mm[Hg] Erich E Ball Work Phone: mp095-3841IC-Krmzj [employer] 250 DO Work Phone: 1(755) 675-718506-06-2023 14:30-0400Body apqukt371.34 cmBenjamin Ball Other [facility] [employer] Other 06-06-2023 14:30-0400Body mass index (BMI) [Ratio] 35.42 kg/h5Nylddzkn Ball Other [place] [employer] Other 06-06-2023 14:30-0400Body pkxufw498.21 kgBenjamin Ball Other [place] [employer] Other 06-06-2023 14:30-0400Diastolic blood sppnhqvu92 mm[Hg] Erich Ball Other [place] [employer] Other 06-06-2023 14:30-0400Respiratory rate12 /minBenjamin Ball Other [place] [employer] Other 06-06-2023 14:30-0400Systolic blood zzwhpkty333 mm[Hg] Erich Ball Other [place] [employer] Other 04-17-2023 14:49-0400Body .88 cmBenjamin E Ball Work Phone: [phone]-Xnzpv [employer] 250 DO Work Phone: 1(212) 701-399304-17-2023 14:49-0400Body mass index (BMI) [Ratio] 34.31 kg/p3Fhjmpogw E Ball Work Phone: mp170-5683EA-Wzssh [employer] 250 DO Work Phone: 1(799) 854-139704-17-2023 14:49-0400Body surface area Derived from formula2.35 d5Dokuifia E Ball Work Phone: mp688-9765WJ-Yzcgg [employer] 250 DO Work Phone: 1(909) 689-739904-17-2023 14:49-0400Body yxhaux742.76 kgBenjamin E Ball Work Phone: mp344-6626XQ-EncqjMin[facility] 250 DO Work Phone: 1(945) 937-304504-17-2023 14:49-0400Diastolic blood ucqiqsuk38 mm[Hg] Erich E Ball Work Phone: mp717-7109KQ-Rqfhn [place] [facility] 250 DO Work Phone: 1(517) 262-585504-17-2023 14:49-0400Heart rate76 /minBenjamin E Ball Work Phone: mp151-6829MF-RvfjgMinneapolis [facility] 250 DO Work Phone: 1(429) 242-264804-17-2023 14:49-0400Systolic blood cyiniccr343 mm[Hg] Erich E Ball Work Phone: mp038-6140TN-VvfkkMinneapolis [facility] 250 DO Work Phone: 1(811) 927-942604-11-2023 14:00-367931 1Benjamin E Ball Work Phone: mp064-0881LQ-LgjxpMinneapolis Va [facility] [address] [place] Work Phone: Comment on above:VDMUYPXN7910-19-8273 12:00-0400Body .34 cmBenjamin Ball Other [facility] [employer] Other 03-22-2023 12:00-0400Body mass index (BMI) [Ratio] 35.37 kg/v5Jgvqujcs Ball Other [facility] [employer] Other 03-22-2023 12:00-0400Body ghcoqg336.03 kgBenjamin Ball Other [facility] [employer] Other 03-22-2023 12:00-0400Diastolic blood mm[Hg] Erich Ball Other [facility] [employer] Other 03-22-2023 12:00-0400Respiratory rate16 /minBenjamin Ball Other [facility] [employer] Other 03-22-2023 12:00-0400Systolic blood fowqwapg172 mm[Hg] Erich Ball Other [facility] [employer] Other 03-13-2023 10:48-0400Diastolic blood gqatilif04 mm[Hg] Erich E Ball Work Phone: 1(680) 870-1051394-0747WA-Qsrmp [employer] 250 DO Work Phone: 1(489) 278-106203-13-2023 10:48-0400Systolic blood jrnwwgnu315 mm[Hg] Erich E Ball Work Phone: 1(373) 570-7149477-9373BO-Tybap [employer] 250 DO Work Phone: 1(409) 460-333403-13-2023 10:27-0400Diastolic blood httupejw20 mm[Hg] Erich E Ball Work Phone: 1(650) 705-9153866-7989YM-Zkhpb [employer] 250 DO Work Phone: 1(563) 485-162303-13-2023 10:27-0400Systolic blood zjryykic210 mm[Hg] Erich E Ball Work Phone: 1(990) 771-7602022-1665LG-Zleys [employer] 250 DO Work Phone: 1(196) 238-337003-13-2023 10:22-0400Body .88 cmBenjamin E Ball Work Phone: 1(611) 304-4873968-3060IW-Wsxsv [employer] 250 DO Work Phone: 1(440) 742-858403-13-2023 10:22-0400Body mass index (BMI) [Ratio] 34.31 kg/n6Xudhbtmr E Ball Work Phone: 1(960) 596-1030461-5596ZG-Ztacn [employer] 250 DO Work Phone: 1(936) 589-922103-13-2023 10:22-0400Body surface area Derived from formula2.35 l5Lsobppey E Ball Work Phone: mp378-8460MG-Eletg [employer] 250 DO Work Phone: 1(896) 666-730203-13-2023 10:22-0400Body fajwfa704.76 kgBenjamin E Ball Work Phone: mp933-1359XR-Qpjud [employer] 250 DO Work Phone: 1(547) 967-668503-13-2023 10:22-0400Diastolic blood mm[Hg] Erich E Ball Work Phone: mp515-5265OR-Vroka [employer] 250 DO Work Phone: 1(274) 779-965503-13-2023 10:22-0400Heart rate85 /minBenjamin E Ball Work Phone: mp176-7574RO-Wgjvr [employer] 250 DO Work Phone: 1(434) 986-309203-13-2023 10:22-0400Systolic blood hsicojqi706 mm[Hg] Erich E Ball Work Phone: mp182-9591QW-Qsnlh [employer] 250 DO Work Phone: 1(189) 473-658202-24-2023 11:30-0500Body emmyly619.34 cmBenjamin Ball Other [employer] Other 02-24-2023 11:30-0500Body mass index (BMI) [Ratio] 34.22 kg/z3Zwdoseib Ball Other [employer] Other 02-24-2023 11:30-0500Body gvlwyl645.31 kgBenjamin Ball Other [employer] Other 02-24-2023 11:30-0500Diastolic blood sqcrukuh33 mm[Hg] Erich Ball Other [employer] Other 02-24-2023 11:30-0500Respiratory rate16 /minBenjamin Ball Other [employer] Other 02-24-2023 11:30-1604TjS3% (BldA) [Mass fraction]97 % Erich Ball Other [facility] [employer] Other 02-24-2023 11:30-0500Systolic blood mm[Hg] Erich Ball Other [facility] [employer] Other 01-08-2023 08:15-8163LhB1% (BldA) [Mass fraction]93 % Pascual PRINCE [facility]01-07-2023 11:46-0500Body fsngznostgp07.8 [degF]DO Erich Ball Work Phone: 1([phone]01-07-2023 11:46-0500 Diastolic blood iogdiqan49 mm[Hg]DO Erich Ball Work Phone: 1(388)018-98[facility]01-07-2023 11:46-0500 Heart rate82 /minDO Erich Ball Work Phone: 1(945)209-52[facility]01-07-2023 11:46-0500 Inhaled oxygen flow rate2 L/minDO Erich Ball Work Phone: 1(475)885-92[facility]01-07-2023 11:46-0500 Respiratory rate17 /minDO Erich Ball Work Phone: 1(864)924-83[facility]01-07-2023 11:46-0500 SaO2% (BldA) [Mass fraction]92 %DO Erich Ball Work Phone: 1(395)274-04[facility]01-07-2023 11:46-0500 Systolic blood vgicvian113 mm[Hg]DO Erich Ball Work Phone: 1(864)509-13[facility]01-07-2023 06:00-0500 Body ydbmoz158.3 kgDO Erich Ball Work Phone: 1([phone]01-04-2023 15:05-0500 Body vetqvj717.34 cmDO Erich Ball Work Phone: [phone] Encounters Encounter DateEncounter TypeCare ProviderFacilityStart: 89-31-7771qhvfzzurga Carlos A Hamilton COOKFacility:[place]: 05-18-2025 End: 84-35-1307wppsfuwxjkFfsyerqt Ball DO Work Phone: [facility] Work Phone: Start: 05-18-2025 End: 03-48-3631Vvsugih encounter procedureBenjamin Ball DO-[facility] Work Phone: Start: 26-77-8904Pclwujhqtc Recurringangelina Hurst MDCan[facility] Work Phone: Start: 94-91-9582pcjlwsujgtFhu Yaser Al-Marrawi [facility] 04-23-2025 End: 21-65-8191vznkwdwxqzFfwkadwg Ball DO Work Phone: [facility] Work Phone: Start: 04-23-2025 End: 08-63-8550Qzmcmaq encounter procedureBenjamin Ball DO-[facility] Work Phone: Start: 04-12-2025 End: 69-77-3778sjeczfcheaZlqgyyxn Ball DO Work Phone: [facility] Work Phone: Start: 04-12-2025 End: 81-92-7752Nvoesdb encounter procedureSroseann Brady JZPL-WII-O-[facility] Work Phone: Start: 04-07-2025 End: 93-74-0336kkzxympopdOclwcyi P LORRAINEFacility:[place]Start: 04-07-2025 End: 81-74-2458Cowubuv encounter procedureCarlos A BAEZ [facility] Start: 03-04-2025 End: 53-18-7501gphxnsusxbYdlyfsjb Ball DO Work Phone: [facility] Work Phone: Start: 03-04-2025 End: 86-65-9535Xmyasgj encounter procedureStaci Burnette MD-[facility] Work Phone: Start: 01-21-2025 End: 14-42-6762afgqeerqveArimubdc Ball DO Work Phone: [facility] Work Phone: Start: 01-21-2025 End: 73-59-6636Pbcmxje encounter procedureBenjamin Ball DO Work Phone: [facility] Work Phone: Start: 63-71-1103Gku-patient / Non-visitBenjamin Ball DO Work Phone: [facility] Professional [facility] Work Phone: Start: 12-14-2024 End: 89-52-3019pulouorueaYsvajbbd Ball DO Work Phone: [facility] Work Phone: Start: 12-14-2024 End: 83-88-7964Ihovycl encounter procedureBenjamin Ball DO Work Phone: [facility] Work Phone: Start: 12-11-2024 End: 76-81-4262rmmlvtnmqkFnlhwm X OrzechFacility:EU NorwalkStart: 12-10-2024 End: 49-24-4364nqnyovhctqCgwsoujc Ball DO Work Phone: [facility] Work Phone: Start: 12-10-2024 End: 74-98-5986Nwgyzbk encounter procedureBenjamin Ball DO Work Phone: [facility] Work Phone: Start: 11-05-2024 End: 68-74-7320ojavnxuifdXcccanwh Ball DO Work Phone: [facility] Work Phone: Start: 11-05-2024 End: 13-05-9066Oyzvixq encounter procedureBenjamin Ball DO Work Phone: [facility] Ambulatory Work Phone: Start: 14-62-1338Pigdfbsuma RecurringBenjamin Ball DO Work Phone: [facility] Acute Work Phone: Start: 10-22-2024 End: 32-38-3196Nxetbzvso to same day surgery centerBenjamin Ball DO Work Phone: [facility]-CT Scan Main [place] Work Phone: Start: 10-22-2024 End: 68-89-6631zwmjdgknxzGahxntae Ball DO Work Phone: [facility] Work Phone: Start: 10-21-2024 End: 27-85-9716lpcfjdhrmvSgbzcruf Ball DO Work Phone: [facility] Work Phone: Start: 10-21-2024 End: 96-06-4294Xamahyz encounter procedureBenjamin Ball DO Work Phone: [facility] Work Phone: Start: 22-05-4822Ivo-patient / Non-visitBenjamin Ball DO Work Phone: [facility] Work Phone: Start: 79-68-0496hdpnsbbykmPNDOKGNDMVQOF [facility] Ambulatory PPGStart: 60-47-0135Raa-patient / Non-visit Erich Ball DO Work Phone: [facility] Work Phone: Start: 20-77-1312Puf-patient / Non-visitBenjamin Ball DO Work Phone: [facility] Work Phone: Start: 31-60-2160Xiy-patient / Non-visitBenjamin Ball DO Work Phone: [facility] Physician [facility] Work Phone: Start: 10-09-2024 End: 43-52-6881Udwydaywig and management of inpatientBenjamin Ball DO Work Phone: [facility]-[address] [facility] Work Phone: Start: 02-81-0759Qee-patient / Non-visitBenjamin Ball DO Work Phone: [facility] Work Phone: Start: 10-08-2024 End: 57-33-6583Dabiiwzps department patient visitTELENEUROLOGY INPATIENT [facility] Ambulatory PPGStart: 81-89-9688Wuw-patient / Non-visit Erich Ball DO Work Phone: [facility] Physician [facility] Professional [facility] Work Phone: Start: 07-96-7715Myg-patient / Non-visitBenjamin Ball DO Work Phone: [facility] Physician [facility] Professional [facility] Work Phone: Start: 10-05-2024 End: 27-28-5793Ruatrel [facility] Work Phone: Start: 10-05-2024 End: 87-79-2060Hchxjc outpatient visit 15 minutesJailyn Sepulveda JAVA MANAGER Work Phone: ana BELLEVUEComment on above:Imbalance (Primary Dx); Dizziness; Generalized weaknessStart: 10-05-2024 End: 72-13-1409ukyytqepayWKVIRG MORRISClermont County Hospital Work Phone: Start: 10-05-2024 End: 37-31-0460Yungxq Bandar Sepulveda JAVA MANAGER Work Phone: ana BELLEVUEStart: 10-05-2024 End: 80-25-3868Qhvxvn Jessicarocco Coco JAVA MANAGER Work Phone: ana BELLEVUEStart: 09-01-2024 End: 26-33-4457Stfeogv [facility] procedureB[facility] GroupMer[facility] Work Phone: Start: 65-72-6906Ufx-patient / Non-visit[facility] Work Phone: Start: 07-15-2024 End: 22-13-1703rncxntvjeuDhsnrdkaoProMedica Fostoria Community Hospital Work Phone: Start: 07-15-2024 End: 34-41-2747Wvgjehc encounter procedureB[facility]ing [facility] GroupMer[facility] Work Phone: Start: 98-62-6157Shtmgrh encounter [facility]: 07-06-2024 End: 65-32-5710Ohzumq Jessicarocco Occo JAVA MANAGER Work Phone: [facility] [address]TEStart: 07-06-2024 End: 09-36-9583Eaithd Jessicarocco Coco JAVA MANAGER Work Phone: noMS [address] ROUTEStart: 07-06-2024 End: 60-48-3315Mtihde outpatient visit 15 minutesGregoriorocco Coco JAVA MANAGER Work Phone: noMS [address] STATE ROUTEComment on above:Imbalance (Primary Dx); Dizziness; Generalized weakness; Daytime hypersomnolenceStart: 07-06-2024 End: 71-40-7570gelinjjnfrEWJKYK MORRISNot AvailableStart: 99-54-4837Jwu-patient / Non-visitB[facility] GroupMer[facility] Work Phone: Start: 06-30-2024 End: 64-74-1595ixvbysyratHiicsbnehProMedica Fostoria Community Hospital Work Phone: Start: 06-30-2024 End: 84-71-4797Ebcsitt encounter procedureF[facility]sent[facility] GroupMer[facility] Work Phone: Start: 05-26-2024 End: 12-25-3419yuannydgbzQjlfosgxwProMedica Fostoria Community Hospital Work Phone: Start: 05-26-2024 End: 79-36-1553Qorxhgd encounter procedureB[facility] GroupMer[facility] Work Phone: Start: 52-78-5884Mle-patient / Non-visitB[facility] OutPt Work Phone: Start: 04-15-2024 End: 65-96-2638ohywjtbwgbLdbllcg P COOKFacility:EU EduinwalkStart: 04-15-2024 End: 69-77-0976Bdsvokb encounter procedureGregmu BAEZ [facility] Start: 04-07-2024 End: 51-13-0421zjhrebroisPwprtcvzbProMedica Fostoria Community Hospital Work Phone: Start: 04-07-2024 End: 69-44-8696Rvnndfg [facility] Physician [facility] Work Phone: Start: 02-05-2024 End: 96-25-0064btjvsxosqkFegexghrbProMedica Fostoria Community Hospital Work Phone: Start: 02-05-2024 End: 83-73-4110Ykhqshc encounter procedureB[facility]ing [facility] GroupMer[facility] Work Phone: Start: 01-30-2024 End: 09-47-3034eyygrzdkyiVDQYBF COCONot AvailableStart: 01-29-2024 End: 00-30-2831Qrmxwsh encounter procedureGregory Alfonso BAEZ [facility] Start: 41-86-3224Hhd-patient / Non-visitFirelands Physician Group-[place] [employer] Work Phone: Start: 24-29-3676Sfj-patient / Non-visitFirelands [facility]ician [facility] Work Phone: Start: 12-19-2023 End: 31-96-8571aalkjypqbnIrtnahqkeAultman [facility] Work Phone: Start: 12-19-2023 End: 31-86-9119Igrrizt encounter procedureFirelands Physician Group-[facility] Work Phone: Start: 11-06-2023 End: 47-69-1768Autspnt encounter procedureFirelands Physician Group-[facility] Work Phone: Start: 10-03-2023 End: 24-97-3537sumqydldgbUtxxyuxi Ball Other [employer] Other Start: 68-14-9369Xoliiqbcc encounterBenjamin BallFPG [facility] ClinicStart: 53-27-4103Hidebpp encounter procedureFirelands Physician Group-Start: 10-02-2023 End: 59-02-3589gbvkghcrytUkxoddyn Ball Other noPathogenet[employer] Other Start: 91-10-4499Nfwwoyuqg encounterBenjamin BallFPG [facility] ClinicStart: 2023 End: 90-14-0420nrddonurnyIrgjoqqd Ball Other noPathogenet[employer] Other Start: 42-26-4382Yczznbztj encounterBenjamin BallFPG [facility] ClinicStart: 08-23-2023 End: 98-77-1557imoputllyfRaefpnfq Ball Other noPathogenetix Other Start: 18-67-4816Tpbcdmykj encounterBenjamin BallFPG [facility] ClinicStart: 08-07-2023 End: 72-39-0074rhomnystdbSrhiwhgq Ball Other noPathogenetix Other Start: 63-11-0873Oeaznh outpatient visit 25 minutes Erich BallFPG [facility] ClinicStart: 07-23-2023 End: 36-12-8875ymureqatffNnbpfwin Ball Other noPathogenetix Other Start: 02-84-1129Vivydnp evaluation of patient and reportBenjamin BallFPG [facility] ClinicStart: 06-18-2023 End: 13-08-0697zsyapthdoaRqknmfxq Ball Other noPathogenet[employer] Other Start: 55-07-5335Zkcmffi evaluation of patient and reportBenjamin BallFPG [facility] ClinicStart: 06-05-2023 End: 48-56-4691ohohribduaWiflcxze Ball Other noPathogenetix Other Start: 24-54-4715Sanhayqme encounterBenjamin BallFPG [facility] ClinicStart: 06-04-2023 End: 49-43-4420oqxipvwvlrZetbxwnh Ball Other [employer]Pathogenet[employer] Other Start: 44-53-8337Vkmuutoeh encounterBenjamin BallFPG [facility] ClinicStart: 05-08-2023 End: 55-93-6744mycjnzrqemNumjcmdg Ball Other [employer]Path[employer]et[employer] Other Start: 06-90-9893Voyrehz encounter procedureBenjamin BallFPG [facility] ClinicStart: 04-22-2023 End: 09-49-6455gihhpxdvjcTvmbmxyt Ball Other noPathogenet[employer] Other Start: 43-77-6938Phrvnnshe encounterBenjamin BallFPG [facility] ClinicStart: 03-20-2023 End: 70-83-6491jdjalptwayAkfvuakq Ball Other [facility] [employer] Other Start: 17-82-4359Atgzahr evaluation of patient and reportBenjamin BallFPG [facility] ClinicStart: 01-69-0290Lgkhea outpatient visit 15 minutesBenjamin E Ball Work Phone: [phone]-Cxldo [facility] DO Work Phone: Start: 49-55-8222qiywueebndGJ CATHLEEN LOPEZ Facility:[id number]: 02-14-2023 End: 24-86-5129khfyavhhxkKpsozmxt Ball Other [place] [employer] Other Start: 01-92-5293Kosxwbdzr encounterBenjamin BallFPG [facility] ClinicStart: 02-13-2023 End: 17-12-5289qbrpphqjwxQsuubtcv Ball Other [facility] [employer] Other Start: 57-58-8750Eborrhykg encounterBenjamin BallFPG [facility] ClinicStart: 02-11-2023 End: 52-75-7451msunipawulJgvllt [place] Other [place] [employer] Other Start: 85-33-7002Pulslgi evaluation of patient and reportMarcia BraunFPG [facility] ClinicStart: 02-05-2023 End: 14-59-0402avgnluyetrCnipcxkp Ball Other [facility] [employer] Other Start: 64-78-2182Jrfrcy outpatient visit 25 minutes Erich BallFPG [facility] ClinicStart: 01-10-2023 End: 80-49-1217zqhtpbaqgvIovgcrmy Ball Other [employer] Other Start: 87-21-5051Bzyyxsa evaluation of patient and reportBehuy Alejandro Medical ClinicStart: 14-11-2254Zbqbhbdjd encounter Erich Alejandro Medical ClinicStart: 15-03-8114Ftidav outpatient visit 25 minutesBenjamin E Ball Work Phone: [phone]-Qomxp [facility] DO Work Phone: Start: 13-22-0986cgysgkzhxzDO CATHLEEN LOPEZ Facility:[id number]: 02-01-6783uegvazwegaRf. Cathleen Blackmonjosuécility:[id number]: 22-57-5097Zxxddlc encounter procedureBenjamin E Ball Work Phone: [phone]-Qznhn [facility] [address] [place] Work Phone: Start: 70-01-5139nfzndeoyqvLiRl Cathleen Lopez Facility:[id number]: 12-03-2022 End: 79-24-5677yepmvkomydYdpgnbmp Ball Other [employer] Other Start: 34-97-9036Tiaqxbrpd encounterBehuy Alejandro Medical ClinicStart: 11-21-2022 End: 76-55-6338yajvvjvahsVyigszkt Ball Other [employer] Other Start: 21-79-8063Qfjggh outpatient visit 25 minutes Erich Alejandro Medical ClinicStart: 92-89-7507Tqzace consultation new/estab patient 60 minBenjamin E Ball Work Phone: [phone]-Khlql [facility] DO Work Phone: Start: 66-11-6787Hjotgux encounter procedureBenjamin E Ball Work Phone: [phone]-Vulwv [facility] DO Work Phone: start: 31-02-7851gtmpxwwthvQD CATHLEEN LOPEZ Facility:[id number]: 10-26-2022 End: 29-56-7137ypezaftydkRawidcnj Ball Other [employer]Stalact[employer] Other Start: 09-79-4837Vufich outpatient visit 25 minutes Erich BallFPG [facility] ClinicStart: 10-07-2022 End: 72-91-1216zhnmdcepffWyuxgxsl Ball Other [facility] [employer] Other Start: 15-07-9961Pwiewhfsv encounterBenjamin BallFPG [facility] ClinicStart: 10-03-2022 End: 18-48-0736putqpdimbyBaaerrbj Ball Other [employer]Stalact[employer] Other Start: 19-01-5264Yzqwpkwvl encounterBenjamin BallFPG [facility] ClinicStart: 09-25-2022 End: 29-83-6727bsbqnfwxgcNbzywzlv Ball Other [facility] [employer] Other Start: 10-71-6242Wpxxeyits encounterBenjamin BallFPG [facility] ClinicStart: 09-19-2022 End: 93-85-4586Pdt-Silvio VelasquezinExtended Care Start: 09-10-2022 End: 19-97-8674irggifdueqZwossjwh Ball Other [employer]Stalactite [employer] Other Start: 28-26-6822Zvavlaijo encounterBenjamin BallFPG [facility] ClinicStart: 09-10-2022 End: 64-51-7666Wth-SitePascual PRINCE [facility] Start: 09-08-2022 End: 50-28-3214Oqlhqtyrjs and management of inpatientJejason PRINCE [facility] Start: 09-05-2022 End: 43-79-5109qtkgjeirldHdzizeeg Ball Other [facility] [employer] Other Start: 72-12-7540Dnhmxnnyy encounterBensandi AlejandroNort New Relicrt: 06-24-5474xgopbbfxcxOs. Erich Alejandro Facility:[id number]: 09-04-2022 End: 40-15-4673Uryayjpahj and management of inpatientDO Erich Alejandro Work Phone: [facility]-[address] [facility] Work Phone: Start: 09-04-2022 End: 75-58-8846swwieceuzcRA ERICH BALLFacility:F4Jekmn: 04-24-2022 End: 66-96-2281xznyqcnczkBF ERICH BALLFacility:V2Octma: 32-95-6903Aizxp health examinationBehuy Alejandro Other [facility] [employer] Other Start: 11-29-2021 End: 26-52-2538jpywmhgymeFT ERICH ALEJANDROFacility:H4Deypa: 10-30-2021 End: 21-58-9513pghxjcnexxZY ERICH ALEJANDROFacility:H1 Procedures DateProcedureProcedure DetailPerforming ClinicianStart: 35-81-3818Dkor marrow samplingBensandi Ball DO Work Phone: Start: 68-93-0806BX of abdomen and pelvis without contrastBenelielmin Ball DO Work Phone: Start: 17-58-3348Xxydgeq ultrasonography of bilateral carotid arteriesBensandi Ball DO Work Phone: Start: 79-47-1199OTBA Antigen (LFIA)DO Erich Alejandro Work Phone: Start: 27-95-9554RQ of thorax with contrastDO Erich Alejandro Work Phone: Start: 81-81-5581Jfbbm chest X-rayDO Erich 2NGageU Work Phone: Start: 85-34-4186Qjsy reduction of fracture with internal fixationPascual PRINCE Comment on above:HUMERAL SHAFT WITH EXTENSION OF HUMERAL HEAD.Start: 77-32-7689Ejzi upper arm structure (body structure)Pascual PRINCE Start: 76-59-0658Isynrxslszzlvfwax with dilation of urethral stricturePascual PRINCE Start: 79-87-8203Cidgamoyqdvge prostatectomyJejason PRINCE Cataract surgeryBenjamin E Ball Work Phone: Depression screeningBenjamin Ball Other Operation on colonBenjamin E Ball Work Phone: Surgical repair of upper extremityBenjamin E Ball Work Phone: TonsillectomyPascual PRINCE TonsillectomyBenjamin E Ball Work Phone: Total colectomyPascual PRINCE Total colonoscopyBenjamin E Ball Work Phone: Plan of Treatment DateCare ActivityDetailAuthorStart: 04-12-2025 End: 89-66-9135Xhrviax encounter bkjqnpnno01/11/2025 1:00 PM EDT Office Visit [facility] [address] [place] [address] Gracia Brady NP [address] [place] [id number] KI GHOSHtart: 10-22-2024 End: 37-73-6682TprdryfxtMercy Health Defiance Hospitaltart: 59-38-4561Gixa marrow samplingMercy Health Defiance Hospitaltart: 73-81-8847Roka marrow sampling [facility] Hospitaltart: 62-02-3574XcaqdfuseMercy Health Defiance Hospitaltart: 07-11-4390SjyxbgolcMercy Health Defiance Hospitaltart: 10-11-2024 Referral to hematologistMercy Health Defiance Hospitaltart: 10-10-2024 [facility]tart: 73-34-3125Tfuqcqpz to engine room helper [facility] Hospitaltart: 11-90-7939Dcmnqxqu admissionMercy Health Defiance Hospitaltart: 10-05-2024 End: 49-79-6548Qaimglq encounter procedureNOFLOWER HOSPITAL ROUTEComment on above:ArrivedStart: 07-06-2024 End: 59-96-6146Qneoxhl encounter jzecmmyco66/04/2024 1:00 PM EST Office Visit [facility] [address] [address] [place] [address] Jailyn Sepulveda NP [address] [place], [place] [id number] ArrivedNOFLOWER HOSPITAL ROUTEComment on above:ArrivedStart: 85-45-8219Rygelntpr vaccinationInfluenza Vaccine (#1)[facility]Start: 30-98-3206ORS, Provider: Cathleen Lopez, Status: Pen, Time: 12:45 PMFUV, Provider: Cathleen Lopez, Status: Pen, Time: 12:45 PM[facility] 250 DO Work Phone: Start: 71-87-9710QVC, Provider: Cathleen Lopez, Status: Pen, Time: 2:45 PMFUV, Provider: Cathleen Lopez, Status: Pen, Time: 2:45 PM[facility] 250 DO Work Phone: Start: 85-29-9869PRXJ ONLY, Provider: DON COVARRUBIASI NUCLEAR 01,[id number], Status: Pen, Time: 12:30 PMREST ONLY, Provider: DON COVARRUBIASI NUCLEAR 01,[id number], Status: Pen, Time: 12:30 PMMP-[facility] DO Work Phone: Start: 54-55-0248MDWVOIRTC7, Provider: DON HHVI NUCLEAR 01,[id number], Status: Pen, Time: 2:00 PMSTRESSNUC2, Provider: DON HHVI NUCLEAR 01,[id number], Status: Pen, Time: 2:00 PM[facility] 250 DO Work Phone: Start: 00-89-6348VlgtqxysbLicking Memorial [facility] Start: 55-59-9588Tokpfkec admissionLicking Memorial Hospital Comprehensive metabolic 1999 panel - Serum or PlasmaLicking Memorial HospitalComprehenve metabolic 1999 panel - Serum or PlasmaLicking Memorial HospitalComprehenve metabolic 1999 panel - Serum or [facility] CenterComprehenve metabolic 1999 panel - Serum or Plasma [facility] HospitalComprehenve metabolic 1999 panel - Serum or PlasmaLicking Memorial HospitalKaryotype [Identifier] in Unspecified specimen NominalLicking Memorial HospitalMicroalbumin [Mass/volume] in UrineLicking Memorial HospitalPatient EducationMarion Hospital Ctr Work Phone: Patient [facility] Work Phone: [facility] Immunizations Immunization DateImmunizationNotesCare LzewfvlaAbfetdkb19-59-9702safbahyje virus vaccine, unspecified formulationJailyn Sepulveda NP Work Phone: [facility]–SmithvilleOwhyphclxj04-04-9971Mucsukb High-Dose Quadrivalent 0.7 ML Intramuscular Suspension Prefilled SyringeBenjamin E Ball Work Phone: [phone]-ErnepDeer River Health Care Centery 250 DO Work Phone: [phone]jtmck virus vaccine, unspecified formulationPascual PRINCE [address] [place], [place] [address]1005-24-2022Comirnaty 30 MCG/0.3ML Intramuscular SuspensionBenjamin E Ball Work Phone: [phone]-Iwjnh [facility] DO Work Phone: [phone]-SlG-5 mRNA (ecjrhspuszb-jbxc-tedkzad) vaccinePascual PRINCE [facility]11-03-2021COVID-19, mRNA, LNP-S, PF, 100 mcg or 50 mcg dosePascual PRINCE [facility]10-22-2021influenza virus vaccine, split virus (incl. purified surface antigen)Erich Alejandro Other [place] [employer] Other [id number] virus vaccine, unspecified formulationLicking Memorial Hospital08-26-2021tetanus toxoid, reduced diphtheria toxoid, and acellular pertussis vaccine, adsorbedPascual PRINCE [facility] HealthComment on above: Early/Late Reason: Early/Late Reason: Other : .84-91-0433AYNY-CoV-2 (COVID-19) mRNA-1273 vaccinePascual PRINCE [facility]ue01-13-2021SARS-CoV-2 (COVID-19) mRNA-1273 vaccinePascual PRINCE [facility] Hospitalue10-01-2020influenza virus vaccine, unspecified formulationPascual PRINCE [facility]01-18-2020zoster vaccine, liveBenjamin Ball Other [facility]09-28-2019influenza virus vaccine, split virus (incl. purified surface antigen)Erich Alejandro Other noStalact[employer] Other 09-570324-36-0855nztlnevwb virus vaccine, unspecified formulationLicking Memorial Hospital09-28-2019zoster vaccine recombinant Pascual PRINCE [facility]10-10-2018influenza virus vaccine, split virus (incl. purified surface antigen)Erich Alejandro Other [facility] [employer] Other 10-775066-45-3970whseksajl virus vaccine, unspecified formulationLicking [facility] Hospital09-30-2017influenza virus vaccine, split virus (incl. purified surface antigen)Erich Alejandro Other [facility] [employer] Other 09-422387-19-5255bvvsbcarm virus vaccine, unspecified formulationLicking Memorial Hospital06-25-2016pneumococcal polysaccharide vaccine, 23 valentBenjamin Javon Other [facility]04-18-2015 pneumococcal conjugate vaccine, 13 valentBenjamin Javon Other [facility]11-09-2005influenza virus vaccine, whole virusBenjamin E Javon Work Phone: [phone]-VuixwAppleton Municipal Hospital 250 DO Work Phone: [phone]ffkvnbcmb polysaccharide vaccine, 23 valentPascual NIKI [facility] Payers DatePayer CategoryPayerPolicy [id number]-[id number] Health [id number] Blue Shield BCBS Member Subscriber Plan / Payer (Effective 2011-Present) Name: Jose L Ames Relation to Subscriber: Self Name: Jose L Ames Payer ID: Not on file Type: Not on file Address: [facility] [id number] [place] [id number] 2004Medicare [id number] [id number] 2.840.1.306658.3.57[id number] 2.840.1.364448.3.57[id number] 2.840.1.211864.3.57[id number] 2.840.1.376065.3.57[id number] 2.16840.1.257702.3.57[id number] 2.16840.1.889745.3.57[id number] 2.16840.1.511762.3.57[id number] 2.16840.1.271560.3.579.[id number] 2.16.840.1.350410.3.57[id number] 2.840.1.745966.3.57[id number] 2.16840.1.234679.3.579.[id number] 2.840.1.211315.3.579.2.97[id number] 2.840.1.053770.3.57[id number] 2.840.1.071191.3.579.[id number] 2.840.1.715122.3.579.[id number] 2.840.1.090084.3.57[id number] 2.840.1.761621.3.57[id number] 2.840.1.159893.3.57[id number] 2.840.1.723078.3.57[id number] 2.840.1.803545.3.579.[id number] 2.840.1.86963[id number] 2.840.1.452352.3.579.2.531 [id number] 2.840.1.596762.3.579.2.531 Social History DateTypeDetailFacilityStart: 08-07-2021 End: 95-82-4192Eimxfua smoking statusLight tobacco smoker (finding)[facility] CenterStart: 21-34-3092Tme Assigned At [facility]tart: 09-04-2022 End: 46-47-0213Ruccfvu smoking status NHISEx-smoker (finding)[facility] Hospitaltart: 81-29-2660Ceq Assigned At [facility] Centertart: 55-73-8542Qt alcohol useNo alcohol useMP-[facility] 250 DO Work Phone: Comment on above:quit smoking in 2019;Start: 10-29-4078Mqzafct smoking status NHISNever smoked tobaccoJORDAN VALLEY [facility] HealthcareStart: 01-30-2024 End: 36-53-3646Oxnruxfua beverage intakeLifetime non-drinker (finding)[facility] HealthcareStart: 20-94-6728Eaa assigned at birthNot on fileNOCO HealthcareStart: 01-14-2018 End: 82-35-3416FmkPlpk (finding)[facility] Hospitaltart: 10-11-2024 End: 89-63-0454Ifyikma smoking status NHISCurrent some day smokerMercy Health Defiance Hospitaltart: 33-38-8850JPBM Follow upSDOH Follow upMarion Hospital Work Phone: Tobacco smoking statusNeverExecutive Urology of [facility] Hospit[facility] Parma Medical Centerexual OrientationExecutive Urology of [facility] Medical Equipment Procedure CodeEquipment CodeEquipment Original TextEquipment IdentifierDates HUMERUS FRACTURE ORIF Edward Maxwell DO 05/01/21 Unknown Arm LFDAStart: 14-47-9742DPNGCUI FRACTURE ORIF Edward Maxwell DO 05/01/21 Unknown Arm L FDAStart: 42-15-7517KBKAATL FRACTURE ORIF Edward Maxwell DO 05/01/21 Unknown Arm LFDAStart: 15-41-6856VTDWDRC FRACTURE ORIF Alissa CRISTINA Edward Jesusita 05/01/21 Unknown Arm LFDAStart: 20-82-5562URUGZWC FRACTURE ORIF Zach Maxwell DOolas K. 05/01/21 Unknown Arm LFDAStart: 05-96-9330IAMXXPX FRACTURE ORIF Zach Maxwell DOolas K. 05/01/21 Unknown Arm LFDAStart: 05-12-2764YBCLUJJ FRACTURE ORIF Zach Maxwell DOolas K. 05/01/21 Unknown Arm LFDAStart: 05-01-2021 HUMERUS FRACTURE ORIF Alissa CRISTINA Edward K. 05/01/21 Unknown Arm LFDAStart: 80-69-3320UTNOSRP FRACTURE ORIF Alissa CRISTINA Edward Mariam. 05/01/21 Unknown Arm L FDAStart: 88-35-9387ATUFDED FRACTURE ORIF Alissa CRISTINA Edward Mariam. 05/01/21 Unknown Arm LFDAStart: 72-36-3096KJXJZYD FRACTURE ORIF Zach Maxwell DOolas Mariam. 05/01/21 Unknown Arm LFDAStart: 68-57-2484DKLHYBN FRACTURE ORIF Alissa CRISTINA Edward Jesusita 05/01/21 Unknown Arm LFDAStart: 17-15-8393ODZCOSF FRACTURE ORIF Zach Maxwell DOolas Mariam. 05/01/21 Unknown Arm LFDAStart: 44-25-0699BPFUQDD FRACTURE ORIF Alissa CRISTINA Edward Mc 05/01/21 Unknown Arm LFDAStart: 05-01-2021 HUMERUS FRACTURE ORIF Alissa CRISTINA Edward K. 05/01/21 Unknown Arm LFDAStart: 18-31-9039DYIKYOB FRACTURE ORIF Alissa CRISTINA Edward K. 05/01/21 Unknown Arm L FDAStart: 68-32-4641KUTXVFO FRACTURE ORIF Alissa CRISTINA Edward K. 05/01/21 Unknown Arm LFDAStart: 38-18-2696UUPFOFN FRACTURE ORIF Alissa CRISTINA Edward Jesusita 05/01/21 Unknown Arm LFDAStart: 09-91-8682ZFBISKQ FRACTURE ORIF Zach Maxwell DOolas Jesusita 05/01/21 Unknown Arm LFDAStart: 46-53-4601PTGDCYS FRACTURE ORIF Zach Maxwell DOolas K. 05/01/21 Unknown Arm LFDAStart: 00-26-2240UDWGMTL FRACTURE ORIF Rica Maxwell DOs K. 05/01/21 Unknown Arm LFDAStart: 05-01-2021 HUMERUS FRACTURE ORIF Zach Maxwell DOolas K. 05/01/21 Unknown Arm LFDAStart: 18-53-6268OGGGQER FRACTURE ORIF Rica Maxwell DOs K. 05/01/21 Unknown Arm L FDAStart: 95-08-5292XYDJZTG FRACTURE ORIF Zach Maxwell DOolas K. 05/01/21 Unknown Arm LFDAStart: 10-66-0929GEMURUP FRACTURE ORIF Zach Maxwell DOolas K. 05/01/21 Unknown Arm LFDAStart: 98-10-3131TAEEOGB FRACTURE ORIF Rica Maxwell DOs Mariam. 05/01/21 Unknown Arm LFDAStart: 58-04-0554XSBRCSX FRACTURE ORIF Rica Maxwell DOs K. 05/01/21 Unknown Arm LFDAStart: 73-73-7123QNJSHGU FRACTURE ORIF Zach Maxwell DOkirstin Becerra. 05/01/21 Unknown Arm LFDAStart: 05-01-2021 HUMERUS FRACTURE ORIF Zach Maxwell DOolas K. 05/01/21 Unknown Arm LFDAStart: 37-21-9049PUKBRCJ FRACTURE ORIF Zach Maxwell DOolas Mariam. 05/01/21 Unknown Arm L FDAStart: 71-52-9010UNRLFFK FRACTURE ORIF Zach Maxwell DOolas K. 05/01/21 Unknown Arm LFDAStart: 72-97-3708LKPNHHL FRACTURE ORIF Zach Maxwell DOolas K. 05/01/21 Unknown Arm LFDAStart: 41-73-0047AUZLMGY FRACTURE ORIF Zach Maxwell DOolas K. 05/01/21 Unknown Arm LFDAStart: 39-87-3016GMIIHMI FRACTURE ORIF Zach Maxwell DOolas Mariam. 05/01/21 Unknown Arm LFDAStart: 71-75-8923KNUSNTA FRACTURE ORIF Zach Maxwell DOolas K. 05/01/21 Unknown Arm LFDAStart: 05-01-2021 HUMERUS FRACTURE ORIF Zach Maxwell DOolas K. 05/01/21 Unknown Arm LFDAStart: 53-94-9990DAMHCYP FRACTURE ORIF Zach Maxwell DOolas K. 05/01/21 Unknown Arm L FDAStart: 66-66-4563ZLGXMCQ FRACTURE ORIF Zach Maxwell DOolas K. 05/01/21 Unknown Arm LFDAStart: 74-31-8675JTUBIMT FRACTURE ORIF Alissa CRISTINA Edward K. 05/01/21 Unknown Arm LFDAStart: 47-40-7487RIYYKXD FRACTURE ORIF Zach Maxwell DOolas K. 05/01/21 Unknown Arm LFDAStart: 61-30-3441KFWQWHV FRACTURE ORIF Alissa CRISTINA Edward K. 05/01/21 Unknown Arm LFDAStart: 16-32-8791GUDZHGL FRACTURE ORIF Zach Maxwell DOolas K. 05/01/21 Unknown Arm LFDAStart: 05-01-2021 HUMERUS FRACTURE ORIF Alissa CRISTINA Edward K. 05/01/21 Unknown Arm LFDAStart: 07-06-0246ECQHZVC FRACTURE ORIF Alissa CRISTINA Edward K. 05/01/21 Unknown Arm L FDAStart: 97-99-0058TBUIMSO FRACTURE ORIF Alissa CRISTINA Edward K. 05/01/21 Unknown Arm LFDAStart: 60-58-9323EKTREKY FRACTURE ORIF Alissa CRISTINA Edward K. 05/01/21 Unknown Arm LFDAStart: 34-63-9619WSCZXYU FRACTURE ORIF Alissa CRISTINA Edward K. 05/01/21 Unknown Arm LFDAStart: 88-59-5873KQRXXJJ FRACTURE ORIF Alissa RCISTINA Edward K. 05/01/21 Unknown Arm LFDAStart: 03-45-4892QCBGMBJ FRACTURE ORIF Alissa CRISTINA Edward K. 05/01/21 Unknown Arm LFDAStart: 05-01-2021 HUMERUS FRACTURE ORIF Edward Maxwell DO. 05/01/21 Unknown Arm LFDAStart: 90-57-5640QIHEXAR FRACTURE ORIF Edward Maxwell DO. 05/01/21 Unknown Arm L FDAStart: 17-35-3435HWITEOL FRACTURE ORIF Edward Maxwell DO. 05/01/21 Unknown Arm LFDAStart: 18-72-7525ZHYUAPK FRACTURE ORIF Edward Maxwell DO. 05/01/21 Unknown Arm LFDAStart: 85-85-5557TDKPVES FRACTURE ORIF Rica Maxwell DOs Mariam. 05/01/21 Unknown Arm LFDAStart: 23-38-5867Xfhte: 57-19-8593Ffguh Sugar Diagnostic (Freestyle Lite Strips) stripStart: 43-09-2499UJFPXSR FRACTURE ORIF Edward Maxwell DORl 05/01/21 Unknown Arm LFDAStart: 92-09-8936ITMUOZO FRACTURE ORIF Edward Maxwell DO. 05/01/21 Unknown Arm LFDAStart: 05-01-2021 HUMERUS FRACTURE ORIF Edward Maxwell DORl 05/01/21 Unknown Arm LFDAStart: 92-27-5623MRGOATX FRACTURE ORIF Edward Maxwell DO. 05/01/21 Unknown Arm L FDAStart: 30-85-9576ZQLDYFL FRACTURE ORIF Rica Maxwell DObetsy Mc 05/01/21 Unknown Arm LFDAStart: 58-26-1145ZCOYYTG FRACTURE ORIF Rica Maxwell DOs Mariam. 05/01/21 Unknown Arm LFDAStart: 73-20-8877XHNJZJH FRACTURE ORIF Rica Maxwell DOs K. 05/01/21 Unknown Arm LFDAStart: 84-21-5246SJJFYAZ FRACTURE ORIF Rica Maxwell DOs K. 05/01/21 Unknown Arm LFDAStart: 72-43-8420XVKOAGF FRACTURE ORIF Rica Maxwell DOs MariamRl 05/01/21 Unknown Arm LFDAStart: 05-01-2021 HUMERUS FRACTURE ORIF Rica Maxwell DOs K. 05/01/21 Unknown Arm LFDAStart: 25-46-2060ADLKSIA FRACTURE ORIF Alissa CRISTINA, Edward K. 05/01/21 Unknown Arm L FDAStart: 58-63-1447NDCGDOJ FRACTURE ORIF Alissa DO, Edward K. 05/01/21 Unknown Arm LFDAStart: 94-42-6192BPICRMH FRACTURE ORIF Alissa CRISTINA, Edward K. 05/01/21 Unknown Arm LFDAStart: 35-14-3869IUNILBU FRACTURE ORIF Alissa DO, Edward K. 05/01/21 Unknown Arm LFDAStart: 27-58-3730YFTHODK FRACTURE ORIF Alissa CRISTINA, Edward K. 05/01/21 Unknown Arm LFDAStart: 76-08-6991FUSFUBF FRACTURE ORIF Alissa CRISTINA, Edward K. 05/01/21 Unknown Arm LFDAStart: 05-01-2021 HUMERUS FRACTURE ORIF Alissa CRISTINA, Edward K. 05/01/21 Unknown Arm LFDAStart: 60-36-2940LUWHOLC FRACTURE ORIF Alissa CRISTINA, Edward K. 05/01/21 Unknown Arm L FDAStart: 39-63-2735Twswt Sugar Diagnostic (Freestyle Lite Strips) stripStart: 75-26-6176Hcbhv Sugar Diagnostic (Freestyle Lite Strips) stripStart: 11-05-2023 Lancets (Freestyle Lancets) 28 gauge miscStart: 24-28-7089Ftdoxrb (Freestyle Lancets) 28 gauge miscStart: 01-13-2024 End: 96-42-8299Fspie Sugar Diagnostic (Freestyle Lite Strips) stripStart: 60-80-8670Fpimbvo (Freestyle Lancets) 28 gauge miscStart: 57-00-4844Ptq Needle, Diabetic (Bd Ultra-Fine Mini Pen Needle) 31 gauge x 3/16 needleStart: 19-13-4175Ohvzk Sugar Diagnostic (Freestyle Lite Strips) stripStart: 11-05-2023 End: 95-45-7135Xfxenzj (Freestyle Lancets) 28 gauge miscStart: 01-13-2024 End: 00-02-5978Ijv Needle, Diabetic (Bd Ultra-Fine Mini Pen Needle) 31 gauge x 3/16 needleStart: 02-06-2024 End: 31-32-0434UFPCSOJ FRACTURE ORIF Rica Maxwell DOs K. 05/01/21 Unknown Arm LFDAStart: 15-51-3163LVURKWM FRACTURE ORIF Zach Maxwell DOolas K. 05/01/21 Unknown Arm LFDAStart: 39-06-5015ELXDLJZ FRACTURE ORIF Zach Maxwell DOolas K. 05/01/21 Unknown Arm LFDAStart: 85-83-7296PXZFOBE FRACTURE ORIF Zach Maxwell DOolas K. 05/01/21 Unknown Arm LFDAStart: 78-51-9846GLVUGDK FRACTURE ORIF Zach Mawxell DOolas K. 05/01/21 Unknown Arm LFDAStart: 97-81-1786ISWEJYP FRACTURE ORIF Zach Maxwell DOolas K. 05/01/21 Unknown Arm LFDAStart: 05-01-2021 HUMERUS FRACTURE ORIF Zach Maxwell DOolas K. 05/01/21 Unknown Arm LFDAStart: 32-57-1914LACZIUC FRACTURE ORIF Alissa CRISTINA Edward K. 05/01/21 Unknown Arm L FDAStart: 43-61-1460LYHWCAO FRACTURE ORIF Zach Maxwell DOolas K. 05/01/21 Unknown Arm LFDAStart: 22-71-0152JDIFPWA FRACTURE ORIF Alissa CRISTINA Edward K. 05/01/21 Unknown Arm LFDAStart: 33-38-0267ZVKAYVU FRACTURE ORIF Zach Maxwell DOolas K. 05/01/21 Unknown Arm LFDAStart: 93-55-0414NEQFUIL FRACTURE ORIF Alissa CRISTINA Edward K. 05/01/21 Unknown Arm LFDAStart: 19-79-2456IOMAVYO FRACTURE ORIF Zach Maxwell DOolas K. 05/01/21 Unknown Arm LFDAStart: 05-01-2021 HUMERUS FRACTURE ORIF Alissa CRISTINA Edward K. 05/01/21 Unknown Arm LFDAStart: 58-07-8994QILWZMG FRACTURE ORIF Canmer , Edward K. 05/01/21 Unknown Arm L FDAStart: 12-22-8022LMPTQRF FRACTURE ORIF Canmer DO, Edward K. 05/01/21 Unknown Arm LFDAStart: 10-32-3865ZQRAFFD FRACTURE ORIF Canmer DO, Edward K. 05/01/21 Unknown Arm LFDAStart: 39-82-3276KNPDRVW FRACTURE ORIF Canmer DO, Edward K. 05/01/21 Unknown Arm LFDAStart: 35-17-8995Ymkrw Sugar Diagnostic (Freestyle Lite Strips) stripStart: 86-55-2755Izpqvcc (Freestyle Lancets) 28 gauge miscStart: 63-53-8174Zgh Needle, Diabetic (Bd Ultra-Fine Mini Pen Needle) 31 gauge x 3/16 needleStart: 90-02-5266Hrnqf Sugar Diagnostic (Freestyle Lite Strips) stripStart: 11-05-2023 End: 67-31-6731Xqxsncl (Freestyle Lancets) 28 gauge miscStart: 01-13-2024 End: 42-23-9140Wdv Needle, Diabetic (Bd Ultra-Fine Mini Pen Needle) 31 gauge x 3/16 needleStart: 02-06-2024 End: 60-06-9927Gjpko Sugar Diagnostic (Freestyle Lite Strips) stripStart: 71-63-4036Phvqzqw (Freestyle Lancets) 28 gauge miscStart: 28-91-6022Agd Needle, Diabetic (Bd Ultra-Fine Mini Pen Needle) 31 gauge x 3/16 needleStart: 87-51-9961Sshce Sugar Diagnostic (Freestyle Lite Strips) stripStart: 11-05-2023 End: 35-38-2365Jswgdyf (Freestyle Lancets) 28 gauge miscStart: 01-13-2024 End: 18-62-3200Ynk Needle, Diabetic (Bd Ultra-Fine Mini Pen Needle) 31 gauge x 3/16 needleStart: 02-06-2024 End: 85-75-9758Rinpc Sugar Diagnostic (Freestyle Lite Strips) stripStart: 69-71-8171Cdmyuiw (Freestyle Lancets) 28 gauge miscStart: 86-01-9396Ecf Needle, Diabetic (Bd Ultra-Fine Mini Pen Needle) 31 gauge x 3/16 needleStart: 01-32-1720Rhxol Sugar Diagnostic (Freestyle Lite Strips) stripStart: 11-05-2023 End: 21-49-0646Drkjzrf (Freestyle Lancets) 28 gauge miscStart: 01-13-2024 End: 72-04-5837Tqf Needle, Diabetic (Bd Ultra-Fine Mini Pen Needle) 31 gauge x 3/16 needleStart: 02-06-2024 End: 07-16-9891Qztnk Sugar Diagnostic (Freestyle Lite Strips) stripStart: 24-18-5091Cxsvehd (Freestyle Lancets) 28 gauge miscStart: 70-15-1096Olg Needle, Diabetic (Bd Ultra-Fine Mini Pen Needle) 31 gauge x 3/16 needleStart: 49-06-7416Xkxyv Sugar Diagnostic (Freestyle Lite Strips) stripStart: 11-05-2023 End: 49-35-0921Qvqitct (Freestyle Lancets) 28 gauge miscStart: 01-13-2024 End: 19-12-6377Dfi Needle, Diabetic (Bd Ultra-Fine Mini Pen Needle) 31 gauge x 3/16 needleStart: 02-06-2024 End: 92-96-0341Fqbst Sugar Diagnostic (Freestyle Lite Strips) stripStart: 47-63-0432Vltmznl (Freestyle Lancets) 28 gauge miscStart: 04-60-6023Dxf Needle, Diabetic (Bd Ultra-Fine Mini Pen Needle) 31 gauge x 3/16 needleStart: 91-19-0945Exqae Sugar Diagnostic (Freestyle Lite Strips) stripStart: 11-05-2023 End: 60-62-2078Fxlpycy (Freestyle Lancets) 28 gauge miscStart: 01-13-2024 End: 33-56-6373Fzq Needle, Diabetic (Bd Ultra-Fine Mini Pen Needle) 31 gauge x 3/16 needleStart: 02-06-2024 End: 16-21-5509Dkech Sugar Diagnostic (Freestyle Lite Strips) stripStart: 50-75-7669Qmjaepk (Freestyle Lancets) 28 gauge miscStart: 89-09-9208Wlz Needle, Diabetic (Bd Ultra-Fine Mini Pen Needle) 31 gauge x 3/16 needleStart: 88-98-2741Tiaij Sugar Diagnostic (Freestyle Lite Strips) stripStart: 11-05-2023 End: 67-44-5104Jtsgznj (Freestyle Lancets) 28 gauge miscStart: 01-13-2024 End: 47-79-2154Lrj Needle, Diabetic (Bd Ultra-Fine Mini Pen Needle) 31 gauge x 3/16 needleStart: 02-06-2024 End: 19-81-5631Mesoi Sugar Diagnostic (Freestyle Lite Strips) stripStart: 36-18-2341Usnflok (Freestyle Lancets) 28 gauge miscStart: 48-90-3492Dtm Needle, Diabetic (Bd Ultra-Fine Mini Pen Needle) 31 gauge x 3/16 needleStart: 17-51-7196Appze Sugar Diagnostic (Freestyle Lite Strips) stripStart: 11-05-2023 End: 37-16-2511Wsmpygs (Freestyle Lancets) 28 gauge miscStart: 01-13-2024 End: 29-22-1159Zpb Needle, Diabetic (Bd Ultra-Fine Mini Pen Needle) 31 gauge x 3/16 needleStart: 02-06-2024 End: 08-21-0476Cwoch Sugar Diagnostic (Freestyle Lite Strips) stripStart: 43-16-5843Usnzlxc (Freestyle Lancets) 28 gauge miscStart: 10-84-3866Yqe Needle, Diabetic (Bd Ultra-Fine Mini Pen Needle) 31 gauge x 3/16 needleStart: 24-97-4607Oizoj Sugar Diagnostic (Freestyle Lite Strips) stripStart: 11-05-2023 End: 53-17-1701Npwgtsg (Freestyle Lancets) 28 gauge miscStart: 01-13-2024 End: 89-02-5073Opd Needle, Diabetic (Bd Ultra-Fine Mini Pen Needle) 31 gauge x 3/16 needleStart: 02-06-2024 End: 11-88-2996Psget Sugar Diagnostic (Freestyle Lite Strips) stripStart: 48-17-5167Ygvcapm (Freestyle Lancets) 28 gauge miscStart: 24-42-5895Tzf Needle, Diabetic (Bd Ultra-Fine Mini Pen Needle) 31 gauge x 3/16 needleStart: 81-24-8141Hxdmy Sugar Diagnostic (Freestyle Lite Strips) stripStart: 11-05-2023 End: 64-51-4056Uarfenz (Freestyle Lancets) 28 gauge miscStart: 01-13-2024 End: 23-29-7421Ivp Needle, Diabetic (Bd Ultra-Fine Mini Pen Needle) 31 gauge x 3/16 needleStart: 02-06-2024 End: 53-94-4140Fyhhl Sugar Diagnostic (Freestyle Lite Strips) stripStart: 08-30-4134Roydsdn (Freestyle Lancets) 28 gauge miscStart: 99-84-2139Jgt Needle, Diabetic (Bd Ultra-Fine Mini Pen Needle) 31 gauge x 3/16 needleStart: 11-34-7188Mmfid Sugar Diagnostic (Freestyle Lite Strips) stripStart: 11-05-2023 End: 51-45-4841Xdsfacr (Freestyle Lancets) 28 gauge miscStart: 01-13-2024 End: 63-66-6932Cmt Needle, Diabetic (Bd Ultra-Fine Mini Pen Needle) 31 gauge x 3/16 needleStart: 02-06-2024 End: 46-46-1553Afbfd Sugar Diagnostic (Freestyle Lite Strips) stripStart: 85-17-6222Evdxlxf (Freestyle Lancets) 28 gauge miscStart: 10-23-0471Tfa Needle, Diabetic (Bd Ultra-Fine Mini Pen Needle) 31 gauge x 3/16 needleStart: 94-02-1209Dalir Sugar Diagnostic (Freestyle Lite Strips) stripStart: 11-05-2023 End: 51-04-4907Rrgyjos (Freestyle Lancets) 28 gauge miscStart: 01-13-2024 End: 89-75-9451Uem Needle, Diabetic (Bd Ultra-Fine Mini Pen Needle) 31 gauge x 3/16 needleStart: 02-06-2024 End: 84-62-2817Okfwv Sugar Diagnostic (Freestyle Lite Strips) stripStart: 22-81-2927Nclzcum (Freestyle Lancets) 28 gauge miscStart: 47-57-1769Xav Needle, Diabetic (Bd Ultra-Fine Mini Pen Needle) 31 gauge x 3/16 needleStart: 18-44-8870Fdstk Sugar Diagnostic (Freestyle Lite Strips) stripStart: 11-05-2023 End: 32-27-0194Ixxohsx (Freestyle Lancets) 28 gauge miscStart: 01-13-2024 End: 12-71-4404Yvs Needle, Diabetic (Bd Ultra-Fine Mini Pen Needle) 31 gauge x 3/16 needleStart: 02-06-2024 End: 75-57-1104MFYZIAW FRACTURE ORIF Maxwell Edward CRISTINA 05/01/21 Unknown Arm LFDAStart: 02-76-5320CMZWCMU FRACTURE ORIF Alissa Rica CRISTINAs K. 05/01/21 Unknown Arm LFDAStart: 70-34-5055OBZLZMJ FRACTURE ORIF Alissa Rica CRISTINAs K. 05/01/21 Unknown Arm LFDAStart: 06-81-9817KIUBPDY FRACTURE ORIF Alissa Rica CRISTINAs K. 05/01/21 Unknown Arm LFDAStart: 37-18-3271XAXAUKW FRACTURE ORIF Alissa Rica CRISTINAs K. 05/01/21 Unknown Arm LFDAStart: 08-46-8530VXRJHMY FRACTURE ORIF Alissa Zach CRISTINAolas K. 05/01/21 Unknown Arm LFDAStart: 05-01-2021 HUMERUS FRACTURE ORIF Maxwell Zach CRISTINAolas K. 05/01/21 Unknown Arm LFDAStart: 30-56-7554IGWGAWH FRACTURE ORIF Maxwell Zach CRISTINAolas K. 05/01/21 Unknown Arm L FDAStart: 67-02-5437QQAEXUB FRACTURE ORIF Maxwell Zach CRISTINAolas K. 05/01/21 Unknown Arm LFDAStart: 16-37-3391OXEIABR FRACTURE ORIF Alissa CRISTINA, Edward K. 05/01/21 Unknown Arm LFDAStart: 54-83-9650QGBGJNO FRACTURE ORIF Alissa CRISTINA, Edward K. 05/01/21 Unknown Arm LFDAStart: 28-03-2398BJCCESM FRACTURE ORIF Alissa CRISTINA, Edward K. 05/01/21 Unknown Arm LFDAStart: 47-84-4111APOAUFD FRACTURE ORIF Alissa CRISTINA, Edward K. 05/01/21 Unknown Arm LFDAStart: 05-01-2021 HUMERUS FRACTURE ORIF Alissa CRISTINA, Edward K. 05/01/21 Unknown Arm LFDAStart: 98-32-1399CDFXTEL FRACTURE ORIF Alissa CRISTINA, Edward K. 05/01/21 Unknown Arm L FDAStart: 39-72-2268WAWJBOV FRACTURE ORIF Alissa CRISTINA, Edward K. 05/01/21 Unknown Arm LFDAStart: 82-08-2133TSVJJTF FRACTURE ORIF Alissa CRISTINA, Edward K. 05/01/21 Unknown Arm LFDAStart: 92-25-4492KGBYLPB FRACTURE ORIF Alissa CRISTINA, Edward K. 05/01/21 Unknown Arm LFDAStart: 82-90-8618Egpog Sugar Diagnostic (Freestyle Lite Strips) stripStart: 91-87-0019Yvrrvhl (Freestyle Lancets) 28 gauge miscStart: 21-58-6619Xvt Needle, Diabetic (Bd Ultra-Fine Mini Pen Needle) 31 gauge x 3/16 needleStart: 48-91-0924Zjakl Sugar Diagnostic (Freestyle Lite Strips) stripStart: 01-09-2024 End: 03-18-4189Crkbd Sugar Diagnostic (Freestyle Lite Strips) stripStart: 11-05-2023 End: 33-23-6293Dfuwdkj (Freestyle Lancets) 28 gauge miscStart: 01-13-2024 End: 74-95-5394Kbt Needle, Diabetic (Bd Ultra-Fine Mini Pen Needle) 31 gauge x 3/16 needleStart: 02-06-2024 End: 90-60-3448Gmgkb Sugar Diagnostic (Freestyle Lite Strips) stripStart: 68-05-2220Lsfauqf (Freestyle Lancets) 28 gauge miscStart: 43-40-1453Lul Needle, Diabetic (Bd Ultra-Fine Mini Pen Needle) 31 gauge x 3/16 needleStart: 58-58-6275Beqst Sugar Diagnostic (Freestyle Lite Strips) stripStart: 01-09-2024 End: 44-05-3592Bqfjk Sugar Diagnostic (Freestyle Lite Strips) stripStart: 11-05-2023 End: 89-38-7803Pigfbqu (Freestyle Lancets) 28 gauge miscStart: 01-13-2024 End: 64-55-3892Lcl Needle, Diabetic (Bd Ultra-Fine Mini Pen Needle) 31 gauge x 3/16 needleStart: 02-06-2024 End: 34-78-3321Rlkkf Sugar Diagnostic (Freestyle Lite Strips) stripStart: 23-42-4551Ynaieol (Freestyle Lancets) 28 gauge miscStart: 64-37-7085Glo Needle, Diabetic (Bd Ultra-Fine Mini Pen Needle) 31 gauge x 3/16 needleStart: 54-57-2947Tclon Sugar Diagnostic (Freestyle Lite Strips) stripStart: 01-09-2024 End: 34-57-1683Bqhsk Sugar Diagnostic (Freestyle Lite Strips) stripStart: 11-05-2023 End: 01-80-1378Wkoarnk (Freestyle Lancets) 28 gauge miscStart: 01-13-2024 End: 68-39-6880Huj Needle, Diabetic (Bd Ultra-Fine Mini Pen Needle) 31 gauge x 3/16 needleStart: 02-06-2024 End: 02-06-2024 Goals DatePatient GoalDesired Activity/State Functional Status VxxtZtbkszwtppDqqmsdCbbxicoa41-22-8006Jbrfbhxwch [facility] Phone: [phone] 828-959302733761-28-3389Mzbbrwlore statusDisability Status [facility] Phone: 1(299) 152-134808425330-35-6109Kgrzjgzftg StatusN/AExec[facility]07[facility]2023Functional statusPatient at [facility] Work Phone: Mental Status YcffUahhwmlkjoCilnnpGhymcmlt64-68-1668Cynduawgy functionCognitive Status Patient at [facility] Work Phone: 1([phone] 617-21330069326-70-4492Hcccnoaef functionCognitive Status Patient at [facility] Work Phone: Clinical Notes 12-02-2019 to 04-07-2025 Note Date & QhpkHxyyKlhnejks54-00-7354 Hospital Discharge instructions Patient Education 04/07/2025 10:37:44 Overactive Bladder, [...] your health care provider. General instructions Take ntgq-mwr-gbvkjvq and prescription medicines only as told by [...] provider. Document Revised: 05/08/2021 Document Reviewed: 05/08/2021 [employer] Patient Education 2023 [employer]. Follow Up Care 12/11/2024 09:41:12 With:LORRAINE DAUGHERTY, Carlos A Hamilton, URL Address: [address] [place], [place] [address]- When: Unknown [facility] 08-06-2025 NotePatient Education Obstetrics and Gynecology Overactive Bladder, [...] health care provider. General instructions ??? Take akbh-chj-jalpnmr and prescription medicines only as told by [...] you drink, and whe (more content not included)...[facility]07-03-2025 Evaluation note* Diagnosis Onset Date Resolution Status Admit Date Pernicious anemia acuteJuly 2024 3:26pmVitamin B12 deficiencynoneactiveJuly 2024 3:26pm Daytime hypersomnolencechronicAugust 2024 12:56pmImbalancechronicAugust 2024 12:56pmWeakness of both lower extremitieschronicAugust 2024 12:56pmWeakness of left upper extremitychronicAugust 2024 12:56pmChronic heart failure with preserved ejection fraction (HFpEF)acuteAugust 2024 10:53amChronic venous insufficiency of lower extremityacuteAugust 2024 10:53amHTN (hypertension)acuteAugust 2024 10:53amHypercholesterolemiaacute April 23, 2025 10:53amNicotine dependenceacuteAugust 2024 10:53am ObesityacuteAugust 2024 10:53amOSA (obstructive sleep apnea)acuteAugust 2024 10:53amPernicious anemiaacuteAugust 2024 10:53amType 2 diabetes mellitus with hyperglycemiaacuteAugust 2024 10:53am [facility] Work Phone: 1(686) 700-479007-03-2025 Evaluation note* Diagnosis Onset Date Resolution Status Admit Date Pernicious anemia acuteJuly 2024 3:26pmVitamin B12 deficiencynoneactiveJuly 2024 3:26pm Daytime hypersomnolencechronicAugust 2024 12:56pmImbalancechronicAugust 2024 12:56pmWeakness of both lower extremitieschronicAugust 2024 12:56pmWeakness of left upper extremitydeletedAugust 2024 12:56pmAortic stenosisacuteAugust 2024 10:53amChronic heart failure with preserved ejection fraction (HFpEF)acuteAugust 2024 10:53amChronic kidney disease acuteAugust 2024 10:53amChronic venous insufficiency of lower extremity acuteAugust 2024 10:53amHTN (hypertension)acuteAugust 2024 10:53am HypercholesterolemiaacuteAugust 2024 10:53amNicotine dependenceacuteAugust 2024 10:53amObesityacuteAugust 2024 10:53amOSA (obstructive sleep apnea)acuteAugust 2024 10:53amPernicious anemiaacuteAugust 2024 10:53amThrombocytopeniaacuteAugust 2024 10:53amType 2 diabetes mellitus with hyperglycemiaacuteAugust 2024 10:53amAortic stenosisacuteSeptember 2024 11:43amChronic heart failure with preserved ejection fraction (HFpEF) acuteSeptember 2024 11:43amChronic kidney diseaseacuteSeptember 2024 11:43amChronic venous insufficiency of lower extremityacuteSeptember 2024 11:43amHTN (hypertension)acuteSeptember 2024 11:43amNicotine dependence acuteSeptember 2024 11:43amObesityacuteSeptember 2024 11:43amOSA (obstructive sleep apnea)acuteSeptember 2024 11:43amPernicious anemiaacute May 18, 2025 11:43amThrombocytopeniaacuteSeptember 2024 11:43am Type 2 diabetes mellitus with hyperglycemiaacuteSeptember 2024 11:43am [facility] Work Phone: 1(201) 573-669005-22-2025 Evaluation note* Diagnosis Onset Date Resolution Status Admit Date Chronic heart failure with preserved eje ction fraction (HFpEF) acuteMay 2024 10:28amChronic venous insufficiency of lower extremityacute January 21, 2025 10:28amHTN (hypertension)acuteMay 2024 10:28amNicotine dependenceacuteMay 2024 10:28amObesityacuteMay 2024 10:28amOSA (obstructive sleep apnea)acuteMay 2024 10:28amPancytopeniaacuteMay 2024 10:28amPernicious anemiaacuteMay 2024 10:28amType 2 diabetes mellitus with hyperglycemiaacuteMay 2024 10:28amPolyurianoneactiveMay 2024 10:28amPernicious anemiaacuteJuly 2024 3:26pmVitamin B12 deficiency noneactiveJuly 2024 3:26pm [facility] Work Phone: 1(339) 302-650204-11-2025 NotePatient Education Obstetrics and Gynecology Overactive Bladder, [...] health care provider. General instructions ??? Take [id number] and prescription medicines only as told by [...] you drink, and whe (more content not included)...[facility]04-10-2025 Evaluation note* Diagnosis Onset Date Resolution Status Admit Date Pernicious anemia acuteApril 2024 2:13pmChronic heart failure with preserved ejection fraction (HFpEF)acuteApril 2024 2:34pmChronic kidney diseaseacuteApril 2024 2:34pmDyshidrotic dermatitisacuteApr2024 2:34pmPancytopenia acuteApril 2024 2:34pmType 2 diabetes mellitus with hyperglycemiaacute Samantha 2024 2:34pmChronic heart failure with preserved ejection fraction (HFpEF)acuteMay 2024 10:28amChronic venous insufficiency of lower extremityacuteMay 2024 10:28amHTN (hypertension)acuteMay 2024 10:28amNicotine dependenceacuteMay 2024 10:28amObesityacuteMay 2024 10:28amOSA (obstructive sleep apnea)acuteMay 2024 10:28amPancytopeniaacute May 2024 10:28amPernicious anemiaacuteMay 2024 10:28amType 2 diabetes mellitus with hyperglycemiaacuteMay 2024 10:28amPolyuria noneactiveMay 2024 10:28am [facility] Work Phone: 1(997) 139-785603-06-2025 Evaluation note* Diagnosis Onset Date Resolution Status Admit Date Pancytopenia acuteMarch 2024 8:53amPernicious anemiaacuteApril 2024 2:13pmChronic heart failure with preserved ejection fraction (HFpEF)acuteApril 2024 2:34pmChronic kidney diseaseacuteApril 2024 2:34pmDyshidrotic dermatitis acuteApril 2024 2:34pmPancytopeniaacuteApril 2024 2:34pmType 2 diabetes mellitus with hyperglycemiaacuteApril 2024 2:34pmChronic heart failure with preserved ejection fraction (HFpEF)acuteMay 2024 10:28am Chronic venous insufficiency of lower extremityacuteMay 2024 10:28amHTN (hypertension)acuteMay 2024 10:28amNicotine dependenceacuteMay 2024 10:28amOSA (obstructive sleep apnea)acuteMay 2024 10:28amPancytopeniaacute May 2024 10:28amPernicious anemiaacuteMay 2024 10:28amType 2 diabetes mellitus with hyperglycemiaacuteMay 2024 10:28amPolyuria noneactiveMay 2024 10:28am [facility] Work Phone: 1([phone]) 825-954703-06-2025 [facility] [place] [address] Cancer Center Note Signed Patient: Jose L Ames MR#: [id number] 2655 : 1940 Acct:[id number] Age/Sex: 84 / M Type: REG AMB [...] T2DM, HTN, YASMANI, AAA who presented to [facility] emergency room for altered mental status and weakness. [facility] chart review?patient arrived to [facility] via EMS for altered mental status, [...] day, denies alcohol or illicit druguse. At [facility], his iron studies were c/w anemia [...] BONE MARROW BX Accompanied by: Spouse Allergies SHRUTI Inhibitors Allergy (Mild, Verified 11/05/24 09:06) Cough [...] mg (1/2 x 20 mg) PO BID vj-twx-ejayk-X6-qbmlwzz-sbltux [id number] mcg (Centrum Silver Men) 1 tab PO [...] up with labs and imaging for review. 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 Pernicious anemia Mucopurulent chronic bronchitis Lumbar spondylosis custodial (current) use of insulin Left humeral fracture [...] MD DD/ 0857 Signed By: 11/05/24 0944 [facility]02-11-2025 Progress note Author West Caraballo [facility] HospitalNote Date/TimeFebruary 2024 12:55pm [place] [id number] Hospitalist Progress Note Signed Patient: Jose L Ames MR#: [id number] 2655 : 1940 Acct:[id number] Age/Sex: 84 / M Adm Date: 5 Loc: Room: [address] [place] [address] Type: ADM IN Attending Dr: West Caraballo [...] 03:49 Meds Allergies and Active Meds Allergies SHRUTI Inhibitors Allergy (Mild, Verified 07/15/24 14:09) Cough [...] can be done as an outpatient. -Check [facility] for any evidence of positive culture [...] came back neg -Nursing team checked with [facility] yesterday blood cultures were still pending,we were [...] <Electronically signed by West Caraballo MD> 10/13/24 7558 [facility] Work Phone: 1(214) 340-842702-11-2025 [place] [id number] Hospitalist Progress Note Signed Patient: Jose L Ames MR#: [id number] 2655 : 1940 Acct:[id number] Age/Sex: 84 / M Adm Date: 5 Loc: Room: [address] [place] [address] Type: ADM IN Attending Dr: West Caraballo [...] 03:49 Meds Allergies and Active Meds Allergies SHRUTI Inhibitors Allergy (Mild, Verified 07/15/24 14:09) Cough [...] can be done as an outpatient. -Check [facility] for any evidence of positive culture [...] Caraballo MD 5 1239 Signed By: 10/13/24 1255 [facility]02-10-2025 Progress note Author Javier Murray [facility] HospitalNote Date/TimeFebruary 2024 12:56pm [place] [id number] Hospitalist Progress Note Signed Patient: Jose L Ames MR#: [id number] 2655 : 1940 Acct:[id number] Age/Sex: 84 / M Adm Date: 5 Loc: 4 Room: [address] [place] [address] Type: ADM IN Attending Dr: Javier Murray [...] 04:41 Meds Allergies and Active Meds Allergies SHRUTI Inhibitors Allergy (Mild, Verified 07/15/24 14:09) Cough [...] <Electronically signed by Javier Murray MD> 10/12/24 [facility]5 [facility] Work Phone: 1(587) 958-983202-10-2025 [place] [id number] Hospitalist Progress Note Signed Patient: Jose L Ames MR#: [id number] 2655 : 1940 Acct:[id number] Age/Sex: 84 / M Adm Date: 5 Loc: 4 Room: [address] [place] [address] Type: ADM IN Attending Dr: Javier Murray [...] 04:41 Meds Allergies and Active Meds Allergies SHRUTI Inhibitors Allergy (Mild, Verified 07/15/24 14:09) Cough [...] all came back -Nursing team checked with [facility] yesterday blood cultures were still pending,we were [...] MD 10/12/24 12 53 Signed By: 10/12/[address] [place], [place] 7133902-10-2025 Progress note Author Loyda Carlos [facility] HospitalNote Date/TimeFebruary 2024 10:02pm [place] [id number] Hospitalist Progress Note Signed with Addenda Patient: Jose L Ames MR#: [id number] 2655 : 1940 Acct:[id number] Age/Sex: 84 / M Adm Date: 5 Loc: Room: [address] [place] [address] Type: ADM IN Attending Dr: Loyda Carlos [...] 08:24 Meds Allergies and Active Meds Allergies SHRUTI Inhibitors Allergy (Mild, Verified 07/15/24 14:09) Cough [...] (min): 50 Documented By: Loyda Carlos MD 10/11/241126 Signed By: <Electronically signed by Loyda Carlos MD> 10/11/242199 [facility] Work Phone: 1(333) 398-784602-09-2025 [place] [id number] Hospitalist Progress Note Signed with Addenda Patient: Jose L Ames MR#: [id number] 2655 : 1940 Acct:[id number] Age/Sex: 84 / M Adm Date: 5 Loc: Room: [address] [place] [address] Type: ADM IN Attending Dr: Loyda Carlos [...] 08:24 Meds Allergies and Active Meds Allergies SHRUTI Inhibitors Allergy (Mild, Verified 07/15/24 14:09) Cough [...] all came back -Nursing team checked with [facility] yesterday blood cultures were still pending,we were [...] MD 10/11/24 1127 Signed By: 10/11/24 2200 [facility]02-09-2025 Consult note Author Angelo Iglesias [facility] HospitalNote Date/TimeFebruary 2024 1:10pm [place] [id number] Med Onc/Hem Consult Note Signed Patient: Jose L Ames MR#: [id number] 2655 : 1940 Acct:[id number] Age/Sex: 84 / M Adm Date: 5 Loc: 4C Room: 2P3041-2 Type: ADM IN Attending Dr: Loyda Carlos MD Copies to: DO Angelo Delatorre MD Mohamad Akil, MD~ CONSULT DATE: 10/11/2024 REQUESTING PROVIDER: Loyda Carlos MD REASON FOR CONSULT: Acute pancytopenia HISTORY OF PRESENT: Joes L Ames is a 84 year old male seen at the request of the hospitalist service for acute pancytopenia management. Jose L has history of CKD, diastolic heart failure?last EF 65%, BPH, T2DM, HTN, YASMANI, AAA who presented to [facility] emergency room for altered mental status and weakness. [facility] chart review?patient arrived to [facility] via EMS for altered mental status, [...] day, denies alcohol or illicit druguse. 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 Pernicious anemia Mucopurulent chronic bronchitis Lumbar spondylosis custodial (current) use of insulin Left humeral fracture [...] Type: cigarettes Substance Use Type: None Allergies SHRUTI Inhibitors Allergy (Mild, Verified 07/15/24 14:09) Cough [...] 20 unit subcutDAILY 11/05/23 [History Confirmed 07/15/24] uywrfjdr-bt-zcnim 300 mcg-K 60 mcg-lycop 600 mcg-lutein 300 [...] % (Auto) 64.7, Lymph % (Auto) 22.0, [place] % (Auto) 11.4, Eos % (Auto) 1.1, Baso % (Auto) 0.8, Nucleat RBC Rel Count 0.1, Neut #(Auto) 1.8, Lymph # (Auto) 0.6 L, [place] # (Auto) 0.3, Eos # (Auto) 0.0, [...] signed by Angelo Iglesias MD> 10/11/24 1310 [facility] Work Phone: 1([phone]) 744-242102-09-2025 [place] [id number] Med Onc/Hem Consult Note Signed Patient: Jose L Ames MR#: [id number] 2655 : 1940 Acct:[id number] Age/Sex: 84 / M Adm Date: 5 Loc: Room: 4X4456-1 Type: ADM IN Attending Dr: Loyda Carlos [...] T2DM, HTN, YASMANI, AAA who presented to [facility] emergency room for altered mental status and weakness. [facility] chart review?patient arrived to [facility] via EMS for altered mental status, [...] day, denies alcohol or illicit druguse. 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 Left humeral fracture [...] Type: cigarettes Substance Use Type: None Allergies SHRUTI Inhibitors Allergy (Mild, Verified 07/15/24 14:09) Cough [...] 20 unit subcutDAILY 11/05/23 [History Confirmed 07/15/24] sykcllja-na-unryf 300 mcg-K 60 mcg-lycop 600 mcg-lutein 300 [...] % (Auto) 64.7, Lymph % (Auto) 22.0, [place] % (Auto) 11.4, Eos % (Auto) 1.1, Baso % (Auto) 0.8, Nucleat RBC Rel Count 0.1, Neut #(Auto) 1.8, Lymph # (Auto) 0.6 L, [place] # (Auto) 0.3, Eos # (Auto) 0.0, [...] MD 10/11/24 1256 Signed By: 10/11/24 1310 [facility]02-09-2025 Progress note Author Loyda Carlos [facility] HospitalNote Date/TimeFebruary 2024 11:33pm [place] [id number] Hospitalist Progress Note Signed Patient: Jose L Ames MR#: [id number] 2655 : 1940 Acct:[id number] Age/Sex: 84 / M Adm Date: 5 Loc: Room: 8Q4804-7 Type: ADM IN Attending Dr: Loyda Carlos [...] 04:53 Meds Allergies and Active Meds Allergies SHRUTI Inhibitors Allergy (Mild, Verified 07/15/24 14:09) Cough [...] consulted GI - Follow blood cultures from [facility] which were drawn when pt was at [facility], I asked the nursing teamto confirm the [...] <Electronically signed by Loyda Carlos MD> 10/10/24 2333 [facility] Work Phone: 1(554) 481-325302-08-2025 [place] [id number] Hospitalist Progress Note Signed Patient: Jose L Ames MR#: [id number] 2655 : 1940 Acct:[id number] Age/Sex: 84 / M Adm Date: 5 Loc: Room: [address] [place] [address] Type: ADM IN Attending Dr: Loyda Carlos [...] 04:53 Meds Allergies and Active Meds Allergies SHRUTI Inhibitors Allergy (Mild, Verified 07/15/24 14:09) Cough [...] consulted GI - Follow blood cultures from [facility] which were drawn when pt was at [facility], I asked the nursing teamto confirm the [...] Carlos MD 10/10/24 1225 Signed By: 10/10/24 2333 [facility]02-08-2025 Consult note Author Mateusz Arellano [facility]Note Date/TimeFebruary 2024 12:09pm [place] [id number] Gastroenterology Consult Note Signed Patient: Jose L Ames MR#: [id number] 2655 : 1940 Acct:[id number] Age/Sex: 84 / M Adm Date: 5 Loc: Room: [address] [place] [address] Type: ADM IN Attending Dr: Loyda Carlos [...] Hematologic/Lymphatic: Denies easy bruising and Denies lymphadenopathy [facility] Medical History (Updated 10/09/24 @ 13:11 by Vince Welsh MD) Chronic kidney disease Medicare annual wellness visit, subsequent Thrombocytopenia Chronic heart failure with preserved ejection fraction (HFpEF) Echo: LVEF 65%, LVH, normal RV size/function, no valve defect - 09/2022 Anemia Vitamin D deficiency 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 Pernicious anemia Mucopurulent chronic bronchitis 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 Left humeral fracture [...] Allergies Allergies SHRUTI Inhibitors Allergy (Mild, Verified 07/15/24 14:09) Cough [...] 20 unit subcutDAILY 11/05/23 [History Confirmed 07/15/24] tpqqwfdd-si-watbe 300 mcg-K 60 mcg-lycop 600 mcg-lutein 300 [...] MPV Neut % (Auto) Lymph % (Auto) [place] % (Auto) Eos % (Auto) Baso % (Auto) Nucleat RBC Rel Count Neut # (Auto) Lymph # (Auto) [place] # (Auto) Eos # (Auto) Baso # [...] % (Auto) 69.2 Lymph % (Auto) 11.5 [place] % (Auto) 18.2 Eos % (Auto) 0.5 Baso % (Auto) 0.6 Nucleat RBC Rel Count 0.1 Neut # (Auto) 3.2 Lymph # (Auto) 0.5 L [place] # (Auto) 0.8 Eos # (Auto) 0.0 [...] MPV Neut % (Auto) Lymph % (Auto) [place] % (Auto) Eos % (Auto) Baso % (Auto) Nucleat RBC Rel Count Neut # (Auto) Lymph # (Auto) [place] # (Auto) Eos # (Auto) Baso # [...] signed by Mateusz Arellano MD> 10/10/24 1209 [facility] Work Phone: 1(340) [phone] Progress note Author Sergio Oliva [facility]Note Date/TimeFebruary 2024 10:49am [place] [id number] Pulmonology Progress Note Signed Patient: Jose L Ames MR#: [id number] 2655 : 1940 Acct:[id number] Age/Sex: 84 / M Adm Date: 5 Loc: Room: [address] [place] [address] Type: ADM IN Attending Dr: Loyda Carlos [...] By: Sergio Oliva MD 10/10/241039 Signed By: <Electronically signed by Sergio Oliva MD> 10/10/24 1049 [facility] Work Phone: 1([phone]) [phone] [place] [id number] Gastroenterology Consult Note Signed Patient: Jose L Ames MR#: [id number] 2655 : 1940 Acct:[id number] Age/Sex: 84 / M Adm Date: 5 Loc: Room: 8B1918-2 Type: ADM IN Attending Dr: Loyda Carlos [...] Hematologic/Lymphatic: Denies easy bruising and Denies lymphadenopathy [facility] Medical History (Updated 10/09/24 @ 13:11 by Vince Welsh MD) Chronic kidney disease Medicare annual wellness visit, subsequent Thrombocytopenia Chronic heart failure with preserved ejection fraction (HFpEF) Echo: LVEF 65%, LVH, normal RV size/function, no valve defect - 09/2022 Anemia Vitamin D deficiency 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 Pernicious anemia Mucopurulent chronic bronchitis Lumbar spondylosis custodial (current) use of insulin Left humeral fracture [...] Allergies Allergies SHRUTI Inhibitors Allergy (Mild, Verified 07/15/24 14:09) Cough acetaminophen (Tylenol) Allergy (Unknown, Verified 11/13/24 14:09) HYPER Home Medications aspirin 81 mg [...] 20 unit subcutDAILY 11/05/23 [History Confirmed 07/15/24] kldmalcm-ce-iwvbh 300 mcg-K 60 mcg-lycop 600 mcg-lutein 300 [...] MPV Neut % (Auto) Lymph % (Auto) [place] % (Auto) Eos % (Auto) Baso % (Auto) Nucleat RBC Rel Count Neut # (Auto) Lymph # (Auto) [place] # (Auto) Eos # (Auto) Baso # [...] % (Auto) 69.2 Lymph % (Auto) 11.5 [place] % (Auto) 18.2 Eos % (Auto) 0.5 Baso % (Auto) 0.6 Nucleat RBC Rel Count 0.1 Neut # (Auto) 3.2 Lymph # (Auto) 0.5 L [place] # (Auto) 0.8 Eos # (Auto) 0.0 [...] MPV Neut % (Auto) Lymph % (Auto) [place] % (Auto) Eos % (Auto) Baso % (Auto) Nucleat RBC Rel Count Neut # (Auto) Lymph # (Auto) [place] # (Auto) Eos # (Auto) Baso # [...] follow. Documented By: Mateusz Arellano MD 10/10/24 120 Signed By: 10/10/24 1209 [facility]02-08-2025 [place] [id number] Pulmonology Progress Note Signed Patient: Jose L Ames MR#: [id number] 2655 : 1940 Acct:[id number] Age/Sex: 84 / M Adm Date: 5 Loc: Room: [address] [place] [address] Type: ADM IN Attending Dr: Loyda Carlos [...] Sergio Oliva MD 10/10/24 1040 Signed By: 10/10/24 1049 [facility]02-08-2025 Progress note Author Loyda Carlos [facility] HospitalNote Date/TimeFebruary 2024 10:01pm [place] [id number] Hospitalist Progress Note Signed Patient: Jose L Ames MR#: [id number] 2655 : 1940 Acct:[id number] Age/Sex: 84 / M Adm Date: 5 Loc: Room: [address] [place] [address] Type: ADM IN Attending Dr: Loyda Carlos [...] 04:27 Meds Allergies and Active Meds Allergies SHRUTI Inhibitors Allergy (Mild, Verified 07/15/24 14:09) Cough [...] Noted that stroke alert was called at [facility] and deemed by telestroke team due to [...] <Electronically signed by Loyda Carlos MD> 10/09/24 [facility]3 [facility] Work Phone: 1(483) 401-431902-07-2025 [place] [address] Hospitalist Progress Note Signed Patient: Jose L Ames MR#: [id number] 2655 : 1940 Acct:[id number] Age/Sex: 84 / M Adm Date: 5 Loc: Room: [address] [place] [address] Type: ADM IN Attending Dr: Loyda Carlos [...] 04:27 Meds Allergies and Active Meds Allergies SHRUTI Inhibitors Allergy (Mild, Verified 07/15/24 14:09) Cough [...] consulted GI - Follow blood cultures from [facility] -Hold nephrotoxic medications - Hold b/p medications for now Syncope- likely syncopal episode at home from hypovolemia, hypotension - Carotid US in am, Echo in am - Up with assist, fall precautions - Noted that stroke alert was called at [facility] and deemed by telestroke team due to [...] Loyda Carlos MD 10/09/24 1336 Signed By: 10/09/24 2201 [facility]02-07-2025 Radiology Diagnostic study note [facility] Main [place] [address] [place] [address] CT Scan Report Signed Patient: Jose L Ames MR#: [id number] 2655 : 1940 Acct:[id number] Age/Sex: 84 / M ADM Date: 5 Loc: Room: [address] [place] [address] Type: ADM IN Attending Dr: Loyda Carlos [...] Pascual Harris M.D.10/09/2024 4:57 PM Dictation Location: [place] [address] Transcribed By: [facility] 10/09/241656 Dictated By: Pascual Harris DO 10/09/241644 Signed By: 10/09/24 1657 [facility]02-07-2025 Consult note Author Vince Welsh [facility]Note Date/TimeFebruary 2024 1:16pm [place] [id number] Pulmonology Consult Note Signed Patient: Jose L Ames MR#: [id number] 2655 : 1940 Acct:[id number] Age/Sex: 84 / M Adm Date: 5 Loc: Room: [address] [place] [address] Type: ADM IN Attending Dr: Loyda Carlos [...] Patient was accepted in transfer from the [facility] emergency department for altered mental status [...] negative unless noted below or in HPI [facility] Medical History (Updated 10/09/24 @ 13:11 by Vince Welsh MD) Chronic kidney disease Medicare annual wellness visit, subsequent Thrombocytopenia Chronic heart failure with preserved ejection fraction (HFpEF) Echo: LVEF 65%, LVH, normal RV size/function, no valve defect - 09/2022 Anemia Vitamin D deficiency 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 Pernicious anemia Mucopurulent chronic bronchitis 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 Left humeral fracture [...] Surgical History History of tonsillectomy H/O colonoscopy (~2018) S/P TURP (transurethral resection of prostate) H/O bilateral cataract extraction History of colon resection (~2019) open sigmoid Family History Father Mother Social History Smoking Status: Current some day smoker Tobacco Type: cigarettes Substance Use Type: None Meds Medications and Allergies Allergies SHRUTI Inhibitors Allergy (Mild, Verified 07/15/24 14:09) Cough [...] 20 unit subcutDAILY 11/05/23 [History Confirmed 07/15/24] lspgyhoj-bj-fwxfs 300 mcg-K 60 mcg-lycop 600 mcg-lutein 300 [...] day #1 for patient transferred from the [facility] for presumptive hypovolemic shock due to [...] <Electronically signed by MD Vince Welsh> 10/09/24 1316 [facility] Work Phone: 1(666) 407-902802-07-2025 [place] [address] Pulmonology Consult Note Signed Patient: Jose L Ames MR#: [id number] 2655 : 1940 Acct:[id number] Age/Sex: 84 / M Adm Date: 5 Loc: Room: [address] [place] [address] Type: ADM IN Attending Dr: Loyda Carlos [...] Patient was accepted in transfer from the [facility] emergency department for altered mental status [...] negative unless noted below or in HPI [facility] Medical History (Updated 10/09/24 @ 13:11 by Vince Welsh MD) Chronic kidney disease Medicare annual wellness visit, subsequent Thrombocytopenia Chronic heart failure with preserved ejection fraction (HFpEF) Echo: LVEF 65%, LVH, normal RV size/function, no valve defect - 09/2022 Anemia Vitamin D deficiency 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 Pernicious anemia Mucopurulent chronic bronchitis Lumbar spondylosis custodial (current) use of insulin Left humeral fracture [...] Allergies Allergies SHRUTI Inhibitors Allergy (Mild, Verified 07/15/24 14:09) Cough [...] 20 unit subcutDAILY 11/05/23 [History Confirmed 07/15/24] rwucemsd-xl-ybsul 300 mcg-K 60 mcg-lycop 600 mcg-lutein 300 [...] day #1 for patient transferred from the [facility] for presumptive hypovolemic shock due to [...] MD 5 1304 Signed By: 10/09/24 1316 [facility]02-07-2025 Radiology Diagnostic study note [facility] Main [place] [address] [place] [address] Ultrasound Report Signed Patient: Jose L Ames MR#: [id number] 2655 : 1940 Acct:[id number] Age/Sex: 84 / M ADM Date: 5 Loc: Room: [address] [place] [address] Type: ADM IN Attending Dr: Loyda Carlos [...] The velocities of the left common carotidartery grx855 cm/s peak systolic and 21.1 cm/s end-diastolic [...] Dean Barnard MD10/09/2024 9:26 AM Dictation Location: [place] [address] Tech: Sunita Box Transcribed By: KAYLEIGH 10/09/24925 Dictated By: Dean Barnard MD 10/09/24925 Signed By: 10/09/24925 [facility] Work Phone: 1([phone]) 430-365302-07-2025 History and physical note Author Lakesha Haskins [facility] Date/TimeFebruary 2024 4:20am [place] [id number] Hospitalist H&P Signed Patient: Jose L Ames MR#: [id number] 2655 : 1940 Acct:[id number] Age/Sex: 84 / M Adm Date: 5 Loc: Room: [address] [place] [address] Type: ADM IN Attending Dr: Javier Murray MD Copies to: DO Javier Delatorre MD Paula G Smith, PLSQL DEVELOPER~ HPI DATE OF EXAMINATION: 10/09/24 CHIEF COMPLAINT: I don't remember HISTORY OF PRESENT ILLNESS: Mr. Ames is an 84-year-old male with a PMH of CKD, diastolic heart failure?last EF 65%, BPH, T2DM, HTN, YASMANI, AAA who presented to [facility] emergency room for altered mental status and weakness. Patient seen and examined upon transfer here to [facility] at bedside. Heis very pleasant, alert and [...] day, denies alcohol or illicit drug use. [facility] chart review?patient arrived to [facility] via EMS for altered mental status, [...] unless noted in the HPI or below. 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 Left humeral fracture [...] Allergies Allergies SHRUTI Inhibitors Allergy (Mild, Verified 07/15/24 14:09) Cough [...] 20 unit subcutDAILY 11/05/23 [History Confirmed 07/15/24] eyemcjow-sk-hyvex 300 mcg-K 60 mcg-lycop 600 mcg-lutein 300 [...] for now - Follow blood cultures from [facility] - CBC, CMP, Mag in am - Hold nephrotoxic medications - Hold b/p medications for now Syncope- likely syncopal episode at home from hypovolemia, hypotension - Carotid US in am, Echo in am - Up with assist, fall precautions - Noted that stroke alert was called at [facility] and deemed by telestroke team due to [...] signed by Javier Murray MD> 10/09/24 0420 [facility] Work Phone: 1(468) 489-268802-07-2025 History and physical [address] [address] Hospitalist H&P Signed Patient: Jose L Ames MR#: [id number] 2655 : 1940 Acct:[id number] Age/Sex: 84 / M Adm Date: 5 Loc: Room: [address] [place] [address] Type: ADM IN Attending Dr: Javier Murray MD Copies to: DO Javier Delatorre MD Paula G Smith, DOROTHY~ HPI DATE OF EXAMINATION: 10/09/24 CHIEF COMPLAINT: I don't remember HISTORY OF PRESENT ILLNESS: Mr. Ames is an 84-year-old male with a PMH of CKD, diastolic heart failure?last EF 65%, BPH, T2DM, HTN, YASMANI, AAA who presented to [facility] emergency room for altered mental status and weakness. Patient seen and examined upon transfer here to [facility] at bedside. Heis very pleasant, alert and [...] day, denies alcohol or illicit drug use. [facility] chart review?patient arrived to [facility] via EMS for altered mental status, [...] unless noted in the HPI or below. 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 Left humeral fracture [...] Type: None Meds Medications and Allergies Allergies SHRTUI Inhibitors Allergy (Mild, Verified 07/15/24 14:09) Cough [...] 20 unit subcutDAILY 11/05/23 [History Confirmed 07/15/24] uwmolcoy-kz-gkxrl 300 mcg-K 60 mcg-lycop 600 mcg-lutein 300 [...] for now - Follow blood cultures from [facility] - CBC, CMP, Mag in am - Hold nephrotoxic medications - Hold b/p medications for now Syncope- likely syncopal episode at home from hypovolemia, hypotension - Carotid US in am, Echo in am - Up with assist, fall precautions - Noted that stroke alert was called at [place] and deemed by telestroke team due to [...] Haskins APRN 10/09/24 0228 Signed By: 10/09/[id number]/09/[id number] [facility]02-07-2025 Evaluation note* Diagnosis Onset Date Resolution Status Admit Date ANGIE (acute kidney injury) acuteFebruary 2024 1:47amChronic heart failure with preserved ejection fraction (HFpEF)acuteFebruary 2024 1:47amChronic kidney diseaseacute October 09, 2024 1:47amDiarrheaacuteFebruary 2024 1:47amGastroenteritis acuteFebruary 2024 1:47amHypovolemic shockacuteFebruary 2024 1:47amOSA (obstructive sleep apnea)acuteFebruary 2024 1:47amPancytopeniaacute October 09, 2024 1:47amSepsisacuteFebruary 2024 1:47amSyncopeacute October 09, 2024 1:47amType 2 diabetes mellitus with hyperglycemiaacute October 09, 2024 1:47am [facility] Work Phone: 1(237) 830-666202-07-2025 Evaluation note* Diagnosis Onset Date Resolution Status Admit Date ANGIE (acute kidney injury) acuteFebruary 2024 1:47amChronic heart failure with preserved ejection fraction (HFpEF)acuteFebruary 2024 1:47amChronic kidney diseaseacute October 09, 2024 1:47amDiarrheaacuteFebruary 2024 1:47amGastroenteritis acuteFebruary 2024 1:47amHypovolemic shockacuteFebruary 2024 1:47amOSA (obstructive sleep apnea)acuteFebruary 2024 1:47amPancytopeniaacute October 09, 2024 1:47amSepsisacuteFebruary 2024 1:47amSyncopeacute October 09, 2024 1:47amType 2 diabetes mellitus with hyperglycemiaacute October 09, 2024 1:47amChronic heart failure with preserved ejection fraction (HFpEF)acuteFebruary 2024 11:31amChronic kidney diseaseacuteFebruary 2024 11:31amChronic venous insufficiency of lower extremityacuteFebruary 2024 11:31amHTN (hypertension)acuteFebruary 2024 11:31amNicotine dependenceacuteFebruary 2024 11:31amOSA (obstructive sleep apnea)acute October 21, 2024 11:31amPancytopeniaacuteFebruary 2024 11:31am Pernicious anemiaacuteFebruary 2024 11:31amType 2 diabetes mellitus with hyperglycemiaacuteFebruary 2024 11:31am [facility] Work Phone: 1(872) 222-535102-07-2025 Evaluation note* Diagnosis Onset Date Resolution Status Admit Date ANGIE (acute kidney injury) acuteFebruary 2024 1:47amChronic heart failure with preserved ejection fraction (HFpEF)acuteFebruary 2024 1:47amChronic kidney diseaseacute October 09, 2024 1:47amDiarrheaacuteFebruary 2024 1:47amGastroenteritis acuteFebruary 2024 1:47amOSA (obstructive sleep apnea)acuteFebruary 2024 1:47amSepsisacuteFebruary 2024 1:47amSyncopeacuteFebruary 2024 1:47amType 2 diabetes mellitus with hyperglycemiaacuteFebruary 2024 1:47am Hypovolemic shockresolvedFebruary 2024 1:47amPancytopeniaresolvedFebruary 2024 1:47amChronic heart failure with preserved ejection fraction (HFpEF) acuteFebruary 2024 11:31amChronic venous insufficiency of lower extremity acuteFebruary 2024 11:31amHTN (hypertension)acuteFebruary 2024 11:31amNicotine dependenceacuteFebruary 2024 11:31amOSA (obstructive sleep apnea)acuteFebruary 2024 11:31amPernicious anemiaacuteFebruary 2024 11:31amType 2 diabetes mellitus with hyperglycemiaacuteFebruary 2024 11:31amPancytopeniaresolvedFebruary 2024 11:31amPernicious anemiaacute October 22, 2024 8:53amThrombocytopeniaacuteFebruary 2024 8:53am [facility] Work Phone: 1(578) 568-162702-07-2025 Evaluation note* Diagnosis Onset Date Resolution Status Admit Date ANGIE (acute kidney injury) acuteFebruary 2024 1:47amChronic heart failure with preserved ejection fraction (HFpEF)acuteFebruary 2024 1:47amChronic kidney diseaseacute October 09, 2024 1:47amDiarrheaacuteFebruary 2024 1:47amGastroenteritis acuteFebruary 2024 1:47amOSA (obstructive sleep apnea)acuteFebruary 2024 1:47amPancytopeniaacuteFebruary 2024 1:47amSepsisacuteFebruary 2024 1:47amSyncopeacuteFebruary 2024 1:47amType 2 diabetes mellitus with hyperglycemiaacutebruary 2024 1:47amHypovolemic shockresolvedFebruary 2024 1:47amChronic heart failure with preserved ejection fraction (HFpEF) acuteFebruary 2024 11:31amChronic venous insufficiency of lower extremity acuteFebruary 2024 11:31amHTN (hypertension)acuteFebruary 2024 11:31amNicotine dependenceacuteFebruary 2024 11:31amOSA (obstructive sleep apnea)acuteFebruary 2024 11:31amPancytopeniaacuteFebruary 2024 11:31amPernicious anemiaacuteFebruary 2024 11:31amType 2 diabetes mellitus with hyperglycemiaacuteFebruary 2024 11:31amPernicious anemiaacute October 22, 2024 8:53amThrombocytopeniaacuteFebruary 2024 8:53am [facility] 8:53am [facility] Work Phone: 1(760) 887-300402-07-2025 Evaluation note* Diagnosis Onset Date Resolution Status Admit Date ANGIE (acute kidney injury) acuteFebruary 2024 1:47amChronic heart failure with preserved ejection fraction (HFpEF)acuteFebruary 2024 1:47amChronic kidney diseaseacute October 09, 2024 1:47amDiarrheaacuteFebruary 2024 1:47amGastroenteritis acuteFebruary 2024 1:47amOSA (obstructive sleep apnea)acuteFebruary 2024 1:47amPancytopeniaacuteFebruary 2024 1:47amSepsisacuteFebruary 2024 1:47amSyncopeacuteFebruary 2024 1:47amType 2 diabetes mellitus with hyperglycemiaacuteFebruary 2024 1:47amHypovolemic shockresolvedFebruary 2024 1:47amChronic heart failure with preserved ejection fraction (HFpEF) acuteFebruary 2024 11:31amChronic venous insufficiency of lower extremity acuteFebruary 2024 11:31amHTN (hypertension)acuteFebruary 2024 11:31amNicotine dependenceacuteFebruary 2024 11:31amOSA (obstructive sleep apnea)acuteFebruary 2024 11:31amPancytopeniaacuteFebruary 2024 11:31amPernicious anemiaacuteFebruary 2024 11:31amType 2 diabetes mellitus with hyperglycemiaacuteFebruary 2024 11:31amPernicious anemiaacute October 22, 2024 8:53amThrombocytopeniaacuteFebruary 2024 8:53am PancytopeniaacuteMarch 2024 8:53amPernicious anemiaacuteApril 2024 2:13pmChronic heart failure with preserved ejection fraction (HFpEF)acuteApril 2024 2:34pmChronic kidney diseaseacuteApril 2024 2:34pmHTN (hypertension)acuteApril 2024 2:34pmPancytopeniaacuteApril 2024 2:34pmType 2 diabetes mellitus with hyperglycemiaacuteApril 2024 2:34pm [facility] Work Phone: 1(727) 201-603502-03-2025 History of Present illness Narrative* Jailyn Sepulveda, [...] wrist extensors , wrist flexor 5/5 , document improvement specialist strength 4+/5. LUE Strength deltoid , biceps , triceps , wrist extensors , wrist flexor 5/5 , document improvement specialist strength 4-/5. RLE Strength illopsoas, quadriceps, tibialis anterior, and gastrocnemius strength 5/5. LLE Strength illopsoas, quadriceps, tibialis anterior, and gastrocnemius strength 5/5. Normal tone x4 extremities. Bulk is normal. Sensory: Sensation is intact to light touch throughout distal extremities. Reflexes: Deep tendon reflexes diffusely hypoactive throughout. Coordination: Zowlya-fp-wfjb testing is normal Rapid alternating movements are normal Gait: Cane Review and summary of old records: [facility] 10/03/23: sitting 124/68 95 supine 130/78 97 standing 110/61 97 patient admits mild lightheadedness upon standing MRI of the brain at [facility] on 08/21/23: No acute intracranial process. Senescent [...] surgeon) MRI cervical spine without contrast at [facility] on 03/30/21: Mild discogenic disease without central [...] plan, and return instructions documented in this encounterSaint [facility] Hospital–[id number] Evaluation note* Diagnosis Onset Date Resolution Status Admit Date Chronic heart failure with preserved eje ction fraction (HFpEF) acuteJuly 15, 2024 1:53pmChronic kidney diseaseacuteJuly 15, 2024 1:53pmChronic venous insufficiency of lower extremityacuteJuly 15, 2024 1:53pmGenerally unsteadyacuteJuly 15, 2024 1:53pmHTN (hypertension)acute July 15, 2024 1:53pmMedicare annual wellness visit, subsequentacute July 15, 2024 1:53pmNicotine dependenceacuteJuly 15, 2024 1:53pmOSA (obstructive sleep apnea)acuteJuly 15, 2024 1:53pmPernicious anemiaacute July 15, 2024 1:53pmType 2 diabetes mellitus with hyperglycemiaacute July 15, 2024 1:53pm [facility] Work Phone: 1(484) 290-822411-04-2024 History of Present illness Narrative* Jailyn Sepulveda [...] wrist extensors , wrist flexor 5/5 , document improvement specialist strength 4+/5. LUE Strength deltoid , biceps , triceps , wrist extensors , wrist flexor 5/5 , document improvement specialist strength 4-/5. RLE Strength illopsoas, quadriceps, tibialis anterior, and gastrocnemius strength 5/5. LLE Strength illopsoas, quadriceps, tibialis anterior, and gastrocnemius strength 5/5. Normal tone x4 extremities. Bulk is normal. Sensory: Sensation is intact to light touch throughout distal extremities. Reflexes: Deep tendon reflexes diffusely hypoactive throughout. Coordination: Kyasld-lt-adog testing is normal Rapid alternating movements are normal Gait: Cane Review and summary of old records: [facility] 10/03/23: sitting 124/68 95 supine 130/78 97 standing 110/61 97 patient admits mild lightheadedness upon standing MRI of the brain at [facility] on 08/21/24: No acute intracranial process. Senescent [...] surgeon) MRI cervical spine without contrast at [facility] on 03/30/21: Mild discogenic disease without central [...] plan, and return instructions documented in this encounterSaint Luke's [facility] Hospital–[id number] Evaluation note* Diagnosis Onset Date Resolution Status Admit Date Vitamin B12 deficiency noneactiveSept2023 3:25pmChronic heart failure with preserved ejection fraction (HFpEF)[facility] 1:53pmChronic kidney disease acuteDavis [facility]2023 1:53pmChronic venous insufficiency of lower extremity acuteDavis [facility]20[facility] 1:53pmGenerally unsteadyacute[facility] 20[facility] 1:53pm HTN (hypertension)acuteDavis [facility]20[facility] 1:53pmMedicare annual wellness visit, subsequentacuteJuly 15, 2024 1:53pmNicotine dependenceacuteDavis [facility]2023 1:53pmOSA (obstructive sleep apnea)acuteDavis [facility]2023 1:53pm Pernicious anemiaacuteNov2023 1:53pmType 2 diabetes mellitus with hyperglycemiaacuteDavis [facility]2023 1:53pm [facility] Work Phone: 1(685) 119-732008-14-2024 Hospital Discharge instructions Patient Education 04/15/2024 13:28:07 [...] your health care provider. General instructions Take jxfs-ulg-obxpgfd and prescription medicines only as told by [...] provider. Document Revised: 05/08/2021 Document Reviewed: 05/08/2021 [employer] Patient Education 2022 [employer]. Follow Up Care 01/29/2024 14:49:01 With:LORRAINE DAUGHERTY, Carlos A Hamilton, URL Address: [facility] [employer] [address] [place], [place] [id number]- When: Unknown [facility] 08-14-2024 NotePatient Education Obstetrics and Gynecology Overactive [...] health care provider. General instructions ? Take qxoc-mzb-ksbaano and prescription medicines only as told by [...] help your health care (more content not included)...[facility]05-29-2024 Hospital Discharge instructions Patient Education 01/29/2024 [...] your health care provider. General instructions Take tmmw-pma-ahkfjcs and prescription medicines only as told by [...] provider. Document Revised: 05/08/2021 Document Reviewed: 05/08/2021 [employer] Patient Education 2022 [employer]. Follow Up Care 01/28/2024 16:14:14 With:LORRAINE DAUGHERTY, Carlos A Hamilton, URL Address: [facility] [employer] [address] [place], [place] [id number]- When: Unknown [facility] 01-19-2024 Evaluation note* Encounter Date Diagnosis Assessment Notes Treatment Notes Treatment Clinical Notes Sep, Acute prostatitis (ICD-10 - N41. 0) [facility] Other 12-06-2023 Evaluation note* Encounter Date Diagnosis Assessment Notes Treatment Notes Treatment Clinical Notes Aug, Type 2 diabetes dana itus with hyperglycemia, [...] Microalbumin, Dilated eye exam and Foot exam Aug,Type 2 diabetes mellitus with diabetic polyneuropathy, without long- term current use of insulin (ICD-10 - E11.42)Inspect feet daily for cuts and calluses.Recommend diabetic shoes and inserts to prevent callus formation.Fall precautions. Aug,Stage 3b chronic kidney disease (ICD-10 - N18.32)The patient is instructed on adequate control of hypertension and diabetes, if appropriate. They are also educated on the associated risks of NSAIDs and PPI use with kidney disease. They were instructed on adequate fluid balance and to avoid dehydration. Aug,hronic diastolic heart failure (ICD-10 - I50.32)Healthy, low salt diet and exercise. Daily weights. Euvolemic today w/ mild peripheral edema Aug,Mucopurulent chronic bronchitis (ICD-10 - J41.1)Instructed on smoking cessation. Mucolytics as needed. UTD w/ vaccines Aug,igarette nicotine dependence without complication (ICD-10 - F17.210)This patient has been encouraged to quit tobacco use immediately. They are aware of the hazards associated with tobacco use, including but not limited to respiratory infections, vascular disease and cancers. Aug,rimary hypertension (ICD-10 - I10)This patient is instructed to consume a healthy, low-fat, low-salt diet. They are also encouraged to continue exercise to achieve/maintain a normal BMI. Aug,hronic venous insufficiency (ICD-10 - I87.2)Avoid salt and elevate lower extremities, support stockings, inspect legs and feet daily for blisters and ulcerations. Kassie's sign negative Aug,Fatigue, unspecified type (ICD-10 - R53.83)Multifactorial:- COPD, diastolic heart failure, deconditioning, untreated YASMANI- sedentary lifestyle,poor sleeping habits due to nocturia, daytime somnolence Encouraged to increase activity, walk daily, avoid napping. Discussed testing for YASMANI Aug,enerally unsteady (ICD-10 - R26.81)Neurologic examination normal. Finger-nose, heel-graves, toe-heel walk all normal Romberg negative. Ambulates w/ shoulders forward in a slow tentative shuffling gait Recommend referral to PT Aug,chilles tendinitis of right lower extremity (ICD-10 - M76.61)No provoking injury or accident. Pain reproduced w/ palpation of mid Gastrocnemius muscle and over distal tendon. No bruising or erythema. Negative Kassie's sign No s/s DVT, ischemia or injury. Likely tendonitis: - instructed on stretching exercises - ice/heat and stretch - refer to PT Aug,Suspected sleep apnea (ICD-10 - R29.818)Refer to sleep clinic for testing. Sleep w/ HOB elevated, avoid back sleeping. Weight loss [facility] Other 11-21-2023 Evaluation note* Encounter Date Diagnosis Assessment Notes Treatment Notes Treatment Clinical Notes Jul, Pernicious anemia (ICD-10 - D51. 0) [facility] Other 10-17-2023 Evaluation note* Encounter Date Diagnosis Assessment Notes Treatment Notes Treatment Clinical Notes Jun, Pernicious anemia (ICD-10 - D51. 0) [facility] Other 09-06-2023 Evaluation note* Encounter Date Diagnosis Assessment Notes Treatment Notes Treatment Clinical Notes May, Medicare annual wellness visit, subsequent (ICD-10 - Z00.00) Personalized health [...] reviewed and amended by provider signed below. May,Type 2 diabetes mellitus with hyperglycemia, without long-term current use of insulin (ICD-10 - E11.65)This patient is following a comprehensive diabetic treatment [...] Microalbumin, Dilated eye exam and Foot exam May,Type 2 diabetes mellitus with diabetic polyneuropathy, without long- term current use of insulin (ICD-10 - E11.42)Inspect feet daily for cuts and calluses.Recommend diabetic shoes and inserts to prevent callus formation.Fall precautions. May,Stage 3b chronic kidney disease (ICD-10 - N18.32) May,hronic diastolic heart failure (ICD-10 - I50.32)Instructed on low salt diet, exercise and daily weights. Instructed to notify office for any unexpected weight gain > 3lbs and/or increased dyspnea, difficulty breathing during sleep, worsening lower extremity swelling, chest pain or lightheadedness. May,rimary hypertension (ICD-10 - I10)This patient is instructed to consume a healthy, low-fat, low-salt diet. They are also encouraged to continue exercise to achieve/maintain a normal BMI. Patient is instructed on home BP measurements: - rest for 5 minutes w/o talking- positioned w/ feeton floor and arm supported- average best 2/3 readings w/ goal < 135/85 May,Mucopurulent chronic bronchitis (ICD-10 - J41.1)Instructed on smoking cessation States he cut back May,ure hypercholesterolemia (ICD-10 - E78.00)Instructed on diet and exercise with continued statin therapy.Discussed the beneficial effects of lo wering cholesterol in reducing the risk for cerebrovascular and cardiovascular disease. May,hronic venous insufficiency (ICD-10 - I87.2)Avoid salt and elevate lower extremities, support stockings, inspect legs and feet daily for blisters and ulcerations. May,Suspected sleep apnea (ICD-10 - R29.818)This patient is aware of the benefits associated with YASMANI: With continued use, the patient reduces the risk for [place], CVA, HTN, cardiac dysrhythmias and sudden cardiac deaths.The patient is also aware of the association between YASMANI and morning headaches, daytime somnolence, fatigue and obesity Refuses to be tested May,enign prostatic hyperplasia with lower urinary tract symptoms (ICD- 10 - N40.1)Symptoms tolerable Continue FLomax May,igarette nicotine dependence without complication (ICD-10 - F17.210)This patient has been encouraged to quit tobacco use immediately. They are aware of the hazards associated with tobacco use, including but not limited to respiratory infections, vascular disease and cancers. [facility] Other 08-21-2023 Evaluation note* Encounter Date Diagnosis Assessment Notes Treatment Notes Treatment Clinical Notes Apr, Mucopurulent chronic bronchitis (ICD-10 - J41.1) [facility] Other 07-19-2023 Evaluation note* Encounter Date Diagnosis Assessment Notes Treatment Notes Treatment Clinical Notes Mar, Pernicious anemia (ICD-10 - D51. 0) [facility] Other 06-12-2023 Evaluation note* Encounter Date Diagnosis Assessment Notes Treatment Notes Treatment Clinical Notes Jan, Pernicious anemia (ICD-10 - D51. 0) [facility] Other 06-06-2023 Evaluation note* Encounter Date Diagnosis Assessment Notes Treatment Notes Treatment Clinical Notes Jan, Chronic diastolic heart failure (ICD-10 - I50.32) Instructed on low salt diet, exercise and daily weights. Instructed to notify office for any unexpected weight gain > 3lbs and/or increased dyspnea, difficulty breathing during sleep, worsening lower extremity swelling, chest pain or lightheadedness. Jan,rimary hypertension (ICD-10 - I10)This patient is instructed to consume a healthy, low-fat, low-salt diet. They are also encouraged to continue exercise to achieve/maintain a normal BMI. Jan,Mucopurulent chronic bronchitis (ICD-10 - J41.1)Mucinex daily as needed for cough. Push fluids to assist in clearing secretions. SMoking cessation stressed. Jan,Type 2 diabetes mellitus with hyperglycemia (ICD-10 - E11.65)This patient is following a comprehensive diabetic treatment [...] Microalbumin, Dilated eye exam and Foot exam Jan,Type 2 diabetes mellitus with diabetic polyneuropathy (ICD-10 - E11.42)Inspect feet daily for cuts and calluses.Recommend diabetic shoes and inserts to prevent callus formation.Fall precautions. Jan,igarette nicotine dependence without complication (ICD-10 - F17.210)This patient has been encouraged to quit tobacco use immediately. They are aware of the hazards associated with tobacco use, including but not limited to respiratory infections, vascular disease and cancers. Jan,hronic venous insufficiency (ICD-10 - I87.2)Avoid salt and elevate lower extremities, support stockings, inspect legs and feet daily for blisters and ulcerations. Jan,ure hypercholesterolemia (ICD-10 - E78.00)Instructed on diet and exercise with continued statin therapy.Discussed the beneficial effects of lo wering cholesterol in reducing the risk for cerebrovascular and cardiovascular disease. Jan,Long term (current) use of insulin (ICD-10 - Z79.4) Jan,ilateral pulmonary infiltrates (ICD-10 - R91.8)Denies dyspnea, cough, wheezing or hemoptysis. Denies fever, chills or any additional symptoms of intercurrent infection 06 Vasiliy, 2023Fatigue, unspecified type (ICD-10 - R53.83) [facility] Other 05-11-2023 Evaluation note* Encounter Date Diagnosis Assessment Notes Treatment Notes Treatment Clinical Notes December, Pernicious anemia (ICD-10 - D51. 0) [facility] Other 03-22-2023 Evaluation note* Encounter Date Diagnosis Assessment Notes Treatment Notes Treatment Clinical Notes Oct, Primary hypertension (ICD-10 - I 10) This patient is instructed to consume a healthy, low-fat, low-salt diet. They are also encouraged to continue exercise to achieve/maintain a normal BMI. Oct,Type 2 diabetes mellitus with hyperglycemia (ICD-10 - E11.65)This patient is following a comprehensive diabetic treatment plan. They are checking their feet daily for calluses and nonhealing ulcers. They are being seen for yearly dilated eye examinations. Goals: SBP less than 130, LDL less than 100, FBS less than 140, AC and A1C less than 7%. They are checking their BS daily, will which are reviewed at the office visit. Oct,Mucopurulent chronic bronchitis (ICD-10 - J41.1)Mucinex as needed Continue Spiriva and Symbicort Tobacco cessation discussed Oct,hronic diastolic heart failure (ICD-10 - I50.32)Control BP, diuresis for fluid excess. Increase activity Decrease weight Repeat Echocardiogram yearly Oct,Suspected sleep apnea (ICD-10 - R29.818)Daytime fatigue, easily falls asleep, snoring, increased BMI, enlarged neck size and gender all increase risk for YASMANI. Discussed treatment options, need to complete sleep study before treatment options discussed Weight loss stressed Refer for home sleep study Oct,igarette nicotine dependence without complication (ICD-10 - F17.210)This patient has been encouraged to quit tobacco use immediately. They are aware of the hazards associated with tobacco use, including but not limited to respiratory infections, vascular disease and cancers. Oct,Long term (current) use of insulin (ICD-10 - Z79.4) Oct,Surgical wound infection (ICD-10 - T81.49XA) [facility] Other 02-24-2023 Evaluation note* Encounter Date Diagnosis Assessment Notes Treatment Notes Treatment Clinical Notes Oct, Primary hypertension (ICD-10 - I 10) This patient is instructed to consume a healthy, low-fat, low-salt diet. They are also encouraged to continue exercise to achieve/maintain a normal BMI. Oct,Mucopurulent chronic bronchitis (ICD-10 - J41.1)No episodes of acute exacerbation. Continue LABA/ICS and LAMA - may simplify to LABA/LAMA combination Oct,igarette nicotine dependence without complication (ICD-10 - F17.210)This patient has been encouraged to quit tobacco use immediately. They are aware of the hazards associated with tobacco use, including but not limited to respiratory infections, vascular disease and cancers. Encouraged to continue abstinence Oct,Type 2 diabetes mellitus with hyperglycemia (ICD-10 - E11.65)This patient is following a comprehensive diabetic treatment [...] and one Metformin - d/c'd ISS coverage Oct,Long term (current) use of insulin (ICD-10 - Z79.4) Oct,hronic diastolic heart failure (ICD-10 - I50.32)Maintain euvolemic state. Control BP and HR Oct,ernicious anemia (ICD-10 - D51.0)COntinue B12 injections Oct,neumonia of lower lobe due to infectious organism, unspecified laterality (ICD-10 - J18.9)Review imaging results [place] [facility] CXR f/u to ensure resolution [facility] Other 02-05-2023 Evaluation note* Encounter Date Diagnosis Assessment Notes Treatment Notes Treatment Clinical Notes Oct, Mucopurulent chronic bronchitis (ICD-10 - J41.1) [facility] Other 01-24-2023 Evaluation note* Encounter Date Diagnosis Assessment Notes Treatment Notes Treatment Clinical Notes Sep, Community acquired p neumonia, unspecified laterality (ICD-10 - J18.9) [email or web address] [facility] [employer] Other 01-24-2023 Evaluation note* Encounter Date Diagnosis Assessment Notes Treatment Notes Treatment Clinical Notes Sep, Mucopurulent chronic bronchitis (ICD-10 - J41.1) Sep,hronic venous insufficiency (ICD-10 - I87.2) [facility] [employer] Other 01-07-2023 Discharge summary Author Randolph Velasquez [facility] September 08, 2022 9:31amNote Date/TimeJan2022 9:31[place] [address] Discharge Summary Signed Patient: Jose L Ames MR#: [id number] : 1940 Acct:[id number] Age/Sex: 81 / M Adm Date: 3 Loc: Room: [address] [place] [address]: Randolph Velasquez MD Copies to: [...] Course Hospital course: Patient was transferred to [facility] with respiratory distress and hypoxic respiratory failure requiring the use of oxygen. I orderedCAT scan of the chest which showed bilateral infiltration suspected to have pneumonia. Patient had bilateral wheezing indicative of acute COPD exacerbationand bronchospasm. Blood culture from [place] came back negative thus far Patient was [...] be heavy smoker but now he smokes ahalf a pack daily. Patient will be discharged [...] on aspirin. Avoid beta-david. Patient will be arrangedto follow-up with cardiology in the outpatient setting. [...] investigation which may include but not limited tobronchoscopy. I had informed the patient and his family (, son and grandson ) that I may not have addressed or treated all of your medical illnesses or the abnormal blood work or imaging studies during this hospitalization. Please ask your primary care provider to obtain [facility] records entirely to follow up on all of the abnormal physical, laboratory, and imaging findings that I have not addressed. Please return back to the emergency room or seek medical attention if your symptoms worsen or return. Discharging you from [facility] does not mean that your medical [...] % (Auto) 91.6, Lymph % (Auto) 3.6, [place] % (Auto) 4.5, Eos % (Auto)0.0, Baso % (Auto) 0.3, Nucleat RBC Rel Count 0.0, Neut # (Auto) 11.9 H, Lymph #(Auto) 0.5 L, [place] # (Auto) 0.6, Eos # (Auto) 0.0, [...] at rest or with minimal exertion. HEENT: [place] conjunctiva and NL buccal mucosa Neck: Supple, [...] []] Discharge Plan Discharge Plan Patient Disposition: Residential Facility Additional Instructions: I may not have addressed or treated all of your medical illnesses or the abnormal blood work or imaging studies during this hospitalization. Please ask your primary care provider to obtain [facility] records entirely to follow up on all of the abnormal physical, laboratory, and imaging findings thatI have not addressed. At the rehab facility Please do CBC and BMP every Saturday and for 2 weeks then every Saturday Please arrange for patient to have repeat CAT scan of the chest in 6 weeks to ensure complete resolution of abnormalities seen on current CAT scan done at [facility]. Please collaborate with his primary care doctor [...] symptoms worsen or return. Discharging you from [facility] does not mean that your medical [...] PO HS fluticasone propionate [Flonase] 50 mcg/actuation Sheridan,Suspension 1 spray INTRANASAL DAILY PRN (Reason: Congestion) hydrochlorothiazide 12.5 mg tablet 12.5 mg PO DAILY Follow Up: Liz lPata MD [Active Staff] - (Suspect underlying CAD) Vince Welsh MD [Active Staff] - (COPD. Abnormal CT of the chest) Erich Alejandro DO [Primary Care Provider] - (Follow-up with your Primary Care Provider after discharge from Rehab) Documented By: Randolph Velasquez MD 09/08/22 4738 Signed By: <Electronically signed by Randolph Velasquez MD> 09/08/22 0996 [facility] Work Phone: 1(265) 712-681301-06-2023 Progress note Author Randolph Velasquez [facility] September 07, 2022 9:02amNote Date/TimeJan2022 9:[address] [address] Hospitalist Progress Note Signed Patient: Jose L Ames MR#: [id number] : 1940 Acct:[id number] Age/Sex: 81 / M Adm Date: 3 Loc: 4 Room: [address] [place] [address] Type: ADM IN Attending Dr: Randolph Velasquez [...] and is sitting up in bed HEENT: [place] conjunctiva and NL buccal mucosa Neck: Supple, [...] 09/05/22 09:00 09/06/22 09:21 Aspirin 81 Mg Tablet. PO 09/05/23 08:59 [...] Propionate 1 spray 09/04/22 23:34 Fluticasone Propionate Sheridan 120 Sheridan/16 Gm Bottle INTRANASAL 09/04/23 23:33 DAILY PRN [...] He is not on oxygen at home butlikely will qualify for oxygen Much improvement over the last 24 hours. We called [facility] to inquire about the blood culture. Blood culture from [facility] showed no growththus far. Swallow evaluation did not reveal any [...] have resolved. Could be done in the outpatientsetting to be arranged by PCP Tobacco addiction. [...] signed by Randolph Velasquez MD> 09/07/22 0902 [facility] Work Phone: [phone]) 532-310601-05-2023 Progress note Author Randolph Velasquez [facility] September 06, 2022 9:15amNote Date/TimeJan2022 9:15[place] [id number] Hospitalist Progress Note Signed Patient: Jose L Ames MR#: [id number] : 1940 Acct:[id number] Age/Sex: 81 / M Adm Date: 3 Loc: Room: [address] [place] [address] Type: ADM IN Attending Dr: Randolph Velasquez [...] and is sitting up in bed HEENT: [place] conjunctiva and NL buccal mucosa Neck: Supple, [...] Propionate 1 spray 09/04/22 23:34 Fluticasone Propionate Sheridan 120 Sheridan/16 Gm Bottle INTRANASAL 09/04/23 23:33 DAILY PRN [...] Units/3 Ml Insuln.Pen SUBCUT 09/06/23 11:29 TID.AC HSARI Insulin Glargine 25 units 09/06/22 09:10 Insulin Glargine 300 Units/3 Ml Insuln.Pen SUBCUT 09/06/23 09:09 DAILY [facility] Methylprednisolone Sodium Succinate 40 mg [...] He is not on oxygen at home butlikely will qualify for oxygen Swallow evaluation did [...] have resolved. Could be done in the outpatientsetting to be arranged by PCP Oral Thrush - Nystatin suspension Tobacco addiction. Counseling about the need to stop smoking. Patient has been a smoker for 50 years he used to smoke heavily in the past. Now he smokes few cigarettes daily Chronic conditions T2DM?fingersticks AC at bedtime, sliding scale insulin coverage. Poor control. Increase the slidingscale dose as well as the long-acting insulin [...] <Electronically signed by Randolph Velasquez MD> 09/06/22914 [facility] Work Phone: 1(658) 295-733001-04-2023 Progress note Author Randolph Velasquez [facility] September 05, 2022 9:46amNote Date/TimeJan2022 9:[place] [address] Hospitalist Progress Note Signed Patient: Jose L Ames MR#: [id number] : 1940 Acct:[id number] Age/Sex: 81 / M Adm Date: 3 Loc: Room: [address] [place] [address] Type: ADM IN Attending Dr: Randolph Velasquez [...] patient is on oxygen. Morbidly obese HEENT: [place] conjunctiva and NL buccal mucosa Neck: Supple, [...] Mg/0.4 Ml Syringe SUBCUT 09/05/23 09:59 DAILY@1000 [facility] Fluticasone Propionate 1 spray 09/04/22 23:34 Fluticasone Propionate Sheridan 120 Sheridan/16 Gm Bottle INTRANASAL 09/04/23 23:33 DAILY PRN Congestion Furosemide 40 mg 09/05/22 08:00 Furosemide 40 Mg/4 Ml Vial IV-PUSH 09/05/23 07:59 BID@0800,1600 [facility] Glucose 0 gm 09/05/22 09:37 [...] Units/3 Ml Insuln.Pen SUBCUT 09/05/23 11:59 TID.WM.HS [facility] Protocol Insulin Glargine 15 units 09/05/22 09:45 Insulin Glargine 300 Units/3 Ml Insuln.Pen SUBCUT 09/05/23 09:44 DAILY [facility] Methylprednisolone Sodium Succinate 40 mg [...] 0.4 Mg Cap.Er.24h PO 09/05/23 20:59 QPM [facility] A&P - Hospitalist Assessment/Plan (1) Acute respiratory [...] He is not on oxygen at home butlikely will qualify for oxygen ? Telemetry ? Oxygen as needed, keep SPO2 greater than 90%?currently on 6 L nasal cannula ? Unasyn, added doxycycline to cover atypical organism -Repeat chest x-ray today ? Recheck lactate, CBC, BMP ? CBC, BMP in a.m. ? Blood cultures were obtained at the [facility] -Counseling about tobacco addiction and the [...] findings and plan. Patient was transferred from [facility]. Initial working diagnosis: -Sepsis secondary to community-acquired pneumonia: Started IV antibiotics. Blood cultures were collected at [facility]. Follow-up and de-escalate accordingly. -Acute hypoxic respiratory failure secondary to pneumonia: Requiring oxygen. Wean off as tolerated -Suspect new onset CHF given elevated BNP, chest x-ray with bilateral vascular congestion, leg edema on exam. Given Lasix. Check echocardiogram Javier Jerry MD Documented By: Randolph Velasquez MD 09/05/22941 Signed By: <Electronically signed by Randolph Velasquez MD> 09/05/22945 [facility] Work Phone: 1(276) 884-760701-04-2023 History and physical note Author Javier Murary [facility] September 05, 2022 1:03amNote Date/TimeJanuary 2022 11:14[place] [address] Hospitalist H&P Signed Patient: Jose L Ames MR#: [id number] : 1940 Acct:[id number] Age/Sex: 81 / M Adm Date: 3 Loc: 4 Room: [address] [place] [address] Type: ADM IN Attending Dr: Clyde Wright DO Copies to: DO Javier Delatorre MD Paula G Smith, PLSQL DEVELOPER Clyde Wright, DO~ HPI DATE OF EXAMINATION: 09/04/22 CHIEF COMPLAINT: shortness of breath, cough, fever, chills HISTORY OF PRESENT ILLNESS: Mr. Ames is an 81-year-old male with a PMH of T2DM, HTN, BPH that was transferred from the [facility] for elevated troponin, shortness of breath, with increasing weakness and confusion at home. Seen and evaluated at bedside. He had removed his oxygen and was wrapped around his neck. Oxygen reapplied, 6 L nasal cannula. He is alert and oriented to time, place, and self. However his conversation seems to wander, slight confusion. He reports fever, chills at home over the past fewdays. Shortness of breath has worsened over the past few days as well, harsh, moist, nonproductive cough. He also reports chest pain with palpation. Patient arrived to the [facility] emergency room with a pulse ox of 80% on room air. Family reported fever with cough and shortness of breath, generalized weakness and increasing confusion over the last week. Nasal swab was negative for influenza and COVID. CBC white blood cell count 11.3. Lactateis 4, NT proBNP is 1464, troponin high-sensitivity is 180.9. CMP with a glucoseof 396, BUN 26,creatinine 1.45, liver enzymes elevated ALT 98, AST [...] unless noted in the HPI or below. [facility] Social History Smoking Status: Former smoker Substance [...] ? Blood cultures were obtained at the [facility] Pulmonary edema?recheck BNP ? Lasix x [...] findings and plan. Patient was transferred from [facility]. Initial working diagnosis: -Sepsis secondary to community-acquired pneumonia: Started IV antibiotics. Blood cultures were collected at [facility]. Follow-up and de-escalate accordingly. -Acute hypoxic respiratory failure secondary to pneumonia: Requiring oxygen. Wean off as tolerated -Suspect new onset CHF given elevated BNP, chest x-ray with bilateral vascular congestion, leg edema on exam. Given Lasix. Check echocardiogram Javier Jerry MD Documented By: Lakesha Haskins APRN 09/04/22 7808 Signed By: <Electronically signed by DOROTHY Haskins> 09/04/22 3351 <Electronically signed by Javier Murray MD> 09/05/22 0103 [facility] Work Phone: [phone]) 384-647104-01-2020 History of Present illness Narrative* Patient is [...] multiple comorbidities, with [facility] of hypoxemic respiratory failure due to pneumonia, could not exclude diastolic heart failure, and had mild elevation of troponin. * Diagnosis is elevated troponin not related to myocardial injury, but possibly related to supply demand mismatch. * Patient has chronic diastolic heart failure * Shortness of breath class III multifactorial * EKG today sinus rhythm 85 first-degree AV block MO interval 218 ms compared to EKG of 09/05/2022 heart rate has decreased. * 1 Uses cane as ambulatory aid, no falls [facility] 250 DO Work Phone: Chief complaint Narrative - ReportedLARRY KWAKU is being seen for CAD referral [facility] [employer] 250 DO Work Phone: Chizs complaint Narrative - ReportedLARRY KWAKU is being seen for CAD referral [facility] [employer] 250 DO Work Phone: Evaluation + Plan note No data available for this section [facility] Evaluation + Plan note Future Appointments Appointment Date:04/15/2024 01:00:00 PM Scheduled Provider:Carlos A BAEZ MD Location:[facility] Appointment Type:URO Office Visit [facility] Evaluation + Plan note Future Appointments Appointment Date:10/14/2024 01:00:00 PM Scheduled Provider:Carlos A BAEZ MD Location:[facility] Appointment Type:URO Office Visit [facility] Evaluation + Plan note Future Appointments Appointment Date:08/18/2025 02:00:00 PM Scheduled Provider:Carlos A BAEZ MD Location:[facility] Appointment Type:URO Office Visit [facility] Evaluation note* Diagnosis Onset Date Resolution Status Acute respiratory failure with hypoxia acuteCommunity acquired pneumoniaacuteElevated troponinacuteHypertensionacute Multifactorial functional impairmentacuteType 2 diabetes mellitusacute [facility] Work Phone: evaluation noteNo Office [facility] Other Evaluation note* Diagnosis Onset Date Resolution Status Cervical spondylosis acuteChronic venous insufficiency of lower extremityacuteGenerally unsteadyacute HTN (hypertension)acuteHypercholesterolemiaacuteNicotine dependenceacuteOSA (obstructive sleep apnea)acutePernicious anemiaacuteType 2 diabetes mellitus with hyperglycemiaacute [facility] Work Phone: Evaluation note* Diagnosis Onset Date Resolution Status Chronic heart failure with preserved eje ction fraction (HFpEF) acuteChronic venous insufficiency of lower extremityacuteGenerally unsteadyacute HTN (hypertension)acuteHypercholesterolemiaacuteNicotine dependenceacuteOSA (obstructive sleep apnea)acutePernicious anemiaacuteStage 3b chronic kidney diseaseacuteType 2 diabetes mellitus with hyperglycemiaacute [facility] Work Phone: Evaluation note* Diagnosis Onset Date Resolution Status Chronic heart failure with preserved eje ction fraction (HFpEF) acuteChronic venous insufficiency of lower extremityacuteGenerally unsteadyacute HTN (hypertension)acuteHypercholesterolemiaacuteNicotine dependenceacuteOSA (obstructive sleep apnea)acutePernicious anemiaacuteStage 3b chronic kidney diseaseacuteType 2 diabetes mellitus with hyperglycemiaacuteChronic heart failure with preserved ejection fraction (HFpEF)acuteChronic venous insufficiency of lower extremityacuteGenerally unsteadyacuteHTN (hypertension) acuteNicotine dependenceacuteOSA (obstructive sleep apnea)acutePernicious anemia acuteStage 3b chronic kidney diseaseacuteType 2 diabetes mellitus with hyperglycemiaacute [facility] Work Phone: Evaluation note* Diagnosis Onset Date Resolution Status Chronic heart failure with preserved eje ction fraction (HFpEF) acuteChronic venous insufficiency of lower extremityacuteGenerally unsteadyacute HTN (hypertension)acuteNicotine dependenceacuteOSA (obstructive sleep apnea) acutePernicious anemiaacuteStage 3b chronic kidney diseaseacuteType 2 diabetes mellitus with hyperglycemiaacuteVitamin B12 deficiencynoneaUK [facility] Work Phone: Evaluation note* Diagnosis Imbalance- Primary Abnormality of gait Dizziness Dizziness and giddiness Generalized weakness Daytime hypersomnolence documented in this encounter [facility]* Diagnosis Imbalance- Primary Abnormality of gait Dizziness Dizziness and giddiness Generalized weakness documented in this encounter [facility] HealthcareHistory general Narrative - Reported* Type Description Date Medical History 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 Medical HistoryLeft humeral fractureMedical HistorySuspected sleep apneaMedical HistoryPernicious anemiaMedical HistoryObesityMedical HistoryBenign prostatic hyperplasia with lower urinary tract symptomsMedical HistoryCervical spondylosis Medical HistoryType 2 diabetes mellitus with hyperglycemia, without long-term current use of insulinMedical HistoryHyperlipidemia, mixedMedical History Essential hypertensionMedical HistoryCarbuncle of buttockMedical HistoryHigh risk medication useMedical HistoryAbdominal aortic aneurysm, without rupture, unspecifiedMedical HistoryChronic venous insufficiencyMedical HistoryIron deficiency anemia due to chronic blood lossMedical HistoryFatigueMedical History Vitamin D deficiencyMedical HistoryAcute blood loss anemiaMedical History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, left arm, subsequent encounterMedical HistoryHearing loss of right ear due to cerumen impactionMedical HistoryUnsteady Medical HistoryShortness of breathMedical HistoryMalaiseMedical HistoryFrequency of urinationMedical HistoryPolyuriaMedical HistoryCerumen in auditory canal on examinationMedical HistoryOccipital headacheMedical HistoryType 2 diabetes mellitus with diabetic polyneuropathy, without long-term current use of insulin Medical HistoryLumbar spondylosisMedical HistoryDiverticulosis of colonMedical HistoryAneurysm of left common iliac arterySurgical HistoryPart of colon removed Surgical HistoryCATARACT EXTRACTION, [id number]/2021Surgical HistoryORIF, HUMERUS, [id number]/2021Surgical HistoryCOLON RESECTION, OPEN [id number]/2020 Surgical HistoryTONSILLECTOMYSurgical HistoryCOLONOSCOPYSurgical HistoryTURP WITH [id number] HistoryBellevue HospitalHospitalization HistorySEE SURGICAL [facility] Other History general Narrative - ReportedNort [employer] Other History general Narrative - Reported* Type Description Date Medical History 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 Medical HistoryLeft humeral fractureMedical HistorySuspected sleep apneaMedical HistoryPernicious anemiaMedical HistoryObesityMedical HistoryBenign prostatic hyperplasia with lower urinary tract symptomsMedical HistoryCervical spondylosis Medical HistoryType 2 diabetes mellitus with hyperglycemia, without long-term current use of insulinMedical HistoryHyperlipidemia, mixedMedical History Essential hypertensionMedical HistoryCarbuncle of buttockMedical HistoryHigh risk medication useMedical HistoryAbdominal aortic aneurysm, without rupture, unspecifiedMedical HistoryChronic venous insufficiencyMedical HistoryIron deficiency anemia due to chronic blood lossMedical HistoryFatigueMedical History Vitamin D deficiencyMedical HistoryAcute blood loss anemiaMedical History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, left arm, subsequent encounterMedical HistoryHearing loss of right ear due to cerumen impactionMedical HistoryUnsteady Medical HistoryShortness of breathMedical HistoryMalaiseMedical HistoryFrequency of urinationMedical HistoryPolyuriaMedical HistoryCerumen in auditory canal on examinationMedical HistoryOccipital headacheMedical HistoryType 2 diabetes mellitus with diabetic polyneuropathy, without long-term current use of insulin Medical HistoryLumbar spondylosisMedical HistoryDiverticulosis of colonMedical HistoryAneurysm of left common iliac arterySurgical HistoryPart of colon removed Surgical HistoryCATARACT EXTRACTION, [id number]/2021Surgical HistoryORIF, HUMERUS, [id number]/2021Surgical HistoryCOLON RESECTION, OPEN [id number]/2020 Surgical HistoryTONSILLECTOMYSurgical HistoryCOLONOSCOPYSurgical HistoryTURP WITH [id number] HistoryOSA (AHI 17, low O2 82)Hospitalization HistoryBellevue HospitalHospitalization HistorySEE SURGICAL [facility] Other History of Present illness Narrative* 82-year-old [...] was prompted by a hospital stay at [facility].Patient was admitted in transfer from [facility], with hypoxemia cough congestion, treated for [...] today sinus rhythm 85 first-degree AV block MO interval 218 ms compared to EKG of [...] arise, * Sincerely, * Cathleen Lopez MD [facility] * I told patient that he should bring his inhalers and use them prior to his perfusion study. [facility] 250 DO Work Phone: Hospital Discharge instructions No data available for this section [facility] Discharge instructions Additional Instructions I may not have addressed or treated all of your medical illnesses or the abnormal blood work or imaging studies during this hospitalization. Please ask your primary care provider to obtain [facility] records entirely to follow up on [...] seen on current CAT scan done at [facility]. Please collaborate with his primary care doctor [...] symptoms worsen or return. Discharging you from [facility] does not mean that your medical care ends here and now. You may still need additional monitoring, work up, investigation, and treatment plan to be handled from this point on by out patient providers including your primary care provider and specialists. For any medication question, please contact your retail pharmacist or your primary care provider. Thank you. [facility] Rehab to manage care: - DNRCCA without [...] Repeat [facility]inalysis in 2 [facility] - [facility] Work Phone: Progress note No data available for this section [facility] Progress note Author Angelo Iglesias [facility] HospitalNote Date/TimeMarch 2024 8:44[facility] [place] [address] Cancer Center Note Signed Patient: Jos eL Ames MR#: [id number] : 1940 Acct:[id number] Age/Sex: 84 / M Type: REG AMB [...] T2DM, HTN, YASMANI, AAA who presented to [facility] emergency room for altered mental status and weakness. [facility] chart review?patient arrived to [facility] via EMS for altered mental status, increased weakness, EMS reported slurred speech, facial droop and extremity weakness. CT of the head was performed which showed no acute intracranial process. tPA was not recommended suggested symptoms were related to generalized weakness. CBC with a white blood cell count of 17.2, otherwise unre markable. Coags were unremarkable. CMP creatinine 3.09. Initiallactic [...] day, denies alcohol or illicit druguse. At [facility], his iron studies were c/w anemia [...] BONE MARROW BX Accompanied by: Spouse Allergies SHRUTI Inhibitors Allergy (Mild, Verified 11/05/24 09:06) Cough [...] mg (1/2 x 20 mg) PO BID [id number] mcg (Centrum Silver Men) 1 tab PO [...] up with labs and imaging for review. 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 Pernicious anemia Mucopurulent chronic bronchitis Lumbar spondylosis custodial (current) use of insulin Left humeral fracture [...] Corrected WBC 3.4 X10E3/uL (4.1-10.5) L 10/22/24 09:10/22 Hgb 13.4 g/dL (13.0-17.0) 10/22/24 09:14 10/22/24 Hct 38.8 % (38.8-50.0) 10/22/24 09:10/22/24 MCV 97.9 fl (83.5-101) 10/22/24 09:25 RDW 13.6 % (12.0-14.8) 10/22/24 09:14 10/22/24 [...] signed by Angelo Iglesias MD> 11/05/24 0944 [facility] Work Phone: Reason for referral (narrative)No reason for referral information availableClermont County Hospital Work Phone: Chief Complaint and Reason for Visit Chief Complaint Sepsis second to pne umonia Reason for Visit Acute respiratory fa ilure with hypoxia Community acquired pneumonia Elevated troponin Hypertension Multifactorial functional impairment Type 2 diabetes mellitus Chief Complaint 3 month follow up [id number] for VisitCervical spondylosis Chronic venous insufficiency of lower extremity Generally unsteady HTN (hypertension) Hypercholesterolemia Nicotine dependence YASMANI (obstructive sleep apnea) Pernicious anemia Type 2 diabetes mellitus with hyperglycemia Chief Complaint B12 Amb Documentation 3 month follow upReason for VisitChronic heart failure with preserved ejection fraction (HFpEF) Chronic venous insufficiency of lower extremity Generally unsteady HTN (hypertension) Hypercholesterolemia Nicotine dependence YASMANI (obstructive sleep apnea) Pernicious anemia Stage 3b chronic kidney disease Type 2 diabetes mellitus with hyperglycemia Chief Complaint Amb Documentation 3 month follow up 2 month follow upReason for VisitChronic heart failure with preserved ejection fraction (HFpEF) [...] Chief Complaint 2 month follow up B12 ShotReason for VisitChronic heart failure with preserved ejection fraction (HFpEF) Chronic venous insufficiency of lower extremity Generally unsteady HTN (hypertension) Nicotine dependence YASMANI (obstructive sleep apnea) Pernicious anemia Stage 3b chronic kidney disease Type 2 diabetes mellitus with hyperglycemia Vitamin B12 deficiency Chief Complaint 2 month follow up B12 Shot B12 ShotReason for VisitChronic heart failure with preserved ejection fraction (HFpEF) [...] :47am Type 2 diabetes mellitus with hyperglyce [email or web address] October 09, 2024 1:47am Hypovolemic shock October [...] :47am Type 2 diabetes mellitus with hyperglyce [email or web address] October 09, 2024 1:47am Hypovolemic shock October [...] 11:31am Type 2 diabetes mellitus with hyperglyce [email or web address] October 21, 2024 11:31am Pernicious anemia October [...] :47am Type 2 diabetes mellitus with hyperglyce [email or web address] October 09, 2024 1:47am Hypovolemic shock October [...] B12 deficiency March 04, 2025 3: 26pm Chief Complaint Admit Date B12 shot March 04, 2025 3:26p m 6 month follow up April 12, 2025 12 :56pm 3 mo f/u April 23, 2025 10 :53am Reason for Visit Admit Date Pernicious anemia March 04, 2025 3:26p m Vitamin B12 deficiency March 04, 2025 3: 26pm Daytime hypersomnolence April 12 12:56pm Imbalance April 12, 2025 12 :56pm Weakness of both lower extremities Augus t 2024 12:56pm Weakness of left upper extremity April 12, 2025 12:56pm Chronic heart failure with p reserved ejection fraction (HFpEF) April 23, 2025 10:53am Chronic venous insufficiency of lower ex tremity April 23, 2025 10:53am HTN (hypertension) April 23, 2025 10 :53am Hypercholesterolemia April 23, 2025 1 0:53am Nicotine dependence April 23, 2025 10 :53am Obesity April 23, 2025 10 :53am YASMANI (obstructive sleep apnea) April 10:53am Pernicious anemia April 23, 2025 10 :53am Type 2 diabetes mellitus with hyperglyce lyla April 23, 2025 10:53am Chief Complaint Admit Date B12 shot March 04, 2025 3:26p m 6 month follow up April 12, 2025 12 :56pm 3 mo f/u April 23, 2025 10 :53am PANCYTOPENIA April 26, 2025 9: 48am dizziness/discuss medication May 032024 11:43am Reason for Visit Admit Date Pernicious anemia March 04, 2025 3:26p m Vitamin B12 deficiency March 04, 2025 3: 26pm Daytime hypersomnolence April 12 12:56pm Imbalance April 12, 2025 12 :56pm Weakness of both lower extremities Augus t 2024 12:56pm Weakness of left upper extremity April 12, 2025 12:56pm Aortic stenosis April 23, 2025 10 :53am Chronic heart failure with p reserved ejection fraction (HFpEF) April 23, 2025 10:53am Chronic kidney disease April 23, 2025 10:53am Chronic venous insufficiency of lower ex tremity April 23, 2025 10:53am HTN (hypertension) April 23, 2025 10 :53am Hypercholesterolemia April 23, 2025 1 0:53am Nicotine dependence [place] 22nd, 2025 10 :53am Obesity April 23, 2025 10 :53am YASMANI (obstructive sleep apnea) April 10:53am Pernicious anemia April 23, 2025 10 :53am Thrombocytopenia April 23, 2025 10 :53am Type 2 diabetes mellitus with hyperglyce lyla April 23, 2025 10:53am Aortic stenosis May 18, 2025 11:43am Chronic heart failure with p reserved ejection fraction (HFpEF) May 18, 2025 11:43am Chronic kidney disease May 18 11:43am Chronic venous insufficiency of lower ex tremity May 18, 2025 11:43am HTN (hypertension) May 18, 2025 11:43am Nicotine dependence May 18, 2025 11:43am Obesity May 18, 2025 11:43am YASMANI (obstructive sleep apnea) May 18, 2025 11:43am Pernicious anemia May 18, 2025 11:43am Thrombocytopenia May 18, 2025 11:43am Type 2 diabetes mellitus with hyperglyce lyla May 18, 2025 11:43am Advance Directives Advance Directive Response Recorded Date/ [...] Onset Recorded Date/T asif father Unknown Not SpecifiedDeceasedUnknown Relationship Condition Age at Onset Recorded Date/T asif father Unknown motherDeceasedUnknown Chief Complaint JOSE L AMES is being seen for a 6 month follow-up of. Additional Source Comments Patient Care team informatio n (unrecognized section and content) Team Status: Active Member Role Status Dates Erich Alejandro DO Primary Care Provider Active Team Status: Inactive Member Role Status Dates Erich Alejandro DO Primary Care Provider Active Start: December 10, 2024 End: December 10, 2024Staci Burnette , MDAttending ProviderActiveStart: December 10, 2024 End: December 10, 2024 Team Status: Inactive Member Role Status Dates Erich Alejandro DO Primary Care Provider Active Start: December 14, 2024 End: December 14ensandi Alejandro , DOAttending ProviderActiveStart: December 14, 2024 End: December 14, 2024 Team Status: Active Member Role Status Dates Erich Alejandro DO Primary Care Provider Active Start: December 17, 2024 Erich Alejandro , Attending ProviderActiveStart: December 17, 2024 Team Status: Inactive Member Role Status Dates Erich Alejandro DO Primary Care Provider Active Start: January 21, 2025 End: January 21ensandi Alejandro , DOAttending ProviderActiveStart: January 21, 2025 End: January 21, 2025 Team Status: Inactive Member Role Status Dates Erich Alejandro DO Primary Care Provider Active Start: March 04, 2025 End: March 04, 2025Mardaly Burnette , MDAttending ProviderActiveStart: March 04, 2025 End: March 04, 2025 Team Status: Active Member Role Status Dates Erich Alejandro DO Primary Care Provider Active Start: November 05, 2024 Mhd Lizbethser Al-Marramichoacano , MDAttending ProviderActiveStart: November 05, 2024 [place] E Do[place]por , MDReferring ProviderActiveStart: November 05, 2024 Team Status: Inactive Member Role Status Dates Erich Alejandro DO Primary Care Provider Active Start: November 05, 2024 End: November 05, 2024Mhd Yaser Al-Marrawi , MDAttending ProviderActiveStart: November 05, 2024 End: November 05, 2024Frederick E Doamekpor , MDReferring ProviderActiveStart: November 05, 2024 End: November 05, 2024 Team Status: Inactive Member Role Status Dates Erich Alejandro DO Primary Care Provide r, Attending Provider Active Start: December 14, 2024 End: December 14, 2024 Team Status: Active Member Role Status Dates Erich Ball , DO Primary Care Provide r, Attending [...] Active Start: October 08, 2024 Carey Smith DOAttending ProviderActiveStart: October 08, 2024 Team Status: Inactive Member Role Status Dates Erich Alejandro DO Primary Care Provider Active Start: October 09, 2024 End: October 14, 2024Javier Murray , MDAdmit ProviderActiveStart: October 09, 2024 End: October 14merlyn Arellano MDOther ProviderActiveStart: October 09, 2024 End: October 14, 2024Angelo Iglesias MDOther ProviderActiveStart: October 09, 2024 End: October 14, 2024[place] MDAttending ProviderActiveStart: October 09, 2024 End: October 14, 2024 Team Status: Active Member Role Status Dates Erich Alejandro DO Primary Care Provider Active Start: October 09, 2024 Javier Murray , MDAdmit ProviderActiveStart: October 09, 2024 Vince Welsh MDAttending Provider, Other ProviderActiveStart: October 09, 2024 Modesta Villafuerte ProviderActiveStart: October 09, 2024 Team Status: Active Member Role Status Dates Erich Alejandro DO Primary Care Provider Active Start: October 10, 2024 Javier Murray , MDAdmit ProviderActiveStart: October 10, 2024 Modesta Abarca ProviderActiveStart: October 10, 2024 Mateusz Arellano MDAttending Provider, Other ProviderActiveStart: October 10, 2024 Modesta Villafuerte ProviderActiveStart: October 10, 2024 Team Status: Active Member Role Status Dates Erich Alejandro , DO Primary Care Provider Active Start: October 15, 2024 Pati Brian ProviderActiveStart: October 15, 2024 Team Status: Inactive Member [...] Care Provider Active Start: January 13, 2024 Naina Bee ProviderActiveStart: January 13, 2024 Team Status: Active Member [...] Start: December 19, 2023 End: December 19, 2023Melissa Sneed APRN JAVA MANAGER-CAttending ProviderActive Start: December 19, 2023 End: December 19, 2023 Team Status: Inactive Member Role Status Dates Erich Alejandro DO Primary Care Provider Active Kary Howard ProviderActiveRafik Ross Velasquez Provider Active Team Status: Active Member Role Status Dates Provider Conversion Attending Provider Active St art: October 03, 2023 Team Status: Inactive Member Role Status Dates Erich Alejandro DO Primary Care Provide r, Attending Provider Active Start: November 06, 2023 End: November 06, 2023Team MemberRelationshipSpecialtyStart DateEnd Date Erich Alejandro MD [address] [facility] [place] [id number] PCP - GeneralInternal Medicine01/30/24Team MemberRelationshipSpecialtyStart Date End Date Erich Alejandro MD [address] [place] [address] PCP - GeneralInternal Medicine01/30/24Team MemberRelationshipSpecialtyStart Date End Date Erich Alejandro MD [address] [facility] [place] [address] PCP - GeneralInternal Medicine01/30/24 Jailyn Sepulveda NP [address] [place], [place] [address] Nurse EpnhrxhpwmbqEwxutuzaw82/4/24 Vince Cherry DO [address] [place] [id number] Referring GjoqqpaxlYkokwcfec20/4/24Team MemberRelationshipSpecialtyStart DateEnd Date Erich Alejandro MD [address] [facility] [place] [address] PCP - GeneralInternal Medicine01/30/24 Jailyn Sepulveda NP [address] [place], [place] [address] Nurse RhtlxczsjawpHstjygbdu35/4/24 Vince Cherry DO [address] [place] [id number] Referring WifhrmkesNomynuczp38/4/24 Team Status: Inactive Member Role Status Jeremiah Alejandro DO Primary Care Provider Active Start: October 22, 2024 End: October 22, 2024Mhd Eren Iglesias , MDAttending ProviderActiveStart: October 22, 2024 End: October 22, 2024 [...] Start: April 12, 2025 End: April 12, 2025Gracia Brady APRN-FNP-CAttending ProviderActiveStart: April 12, 2025 End: April 12, 2025 Team Status: Inactive Member Role Status Jeremiah Alejandro DO Primary Care Provider Active Start: April 23, 2025 End: April 23rachel Alejandro DOAttending ProviderActiveStart: April 23, 2025 End: April 23, 2025 Team Status: Active Member Role Status Jeremiah Alejandro DO Primary Care Provider Active Start: April 26, 2025 Mhd Eren Salomon-Aris , MDAttending ProviderActiveStart: April 26, 2025 [place] MDReferring ProviderActiveStart: April 26, 2025 Team Status: Inactive Member Role Status Jeremiah Alejandro DO Primary Care Provider Active Start: May 18, 2025 End: May 18rachel Alejandro DOAttending ProviderActiveStart: May 18, 2025 End: May 18, 2025 REASON FOR VISIT (unrecogniz ed section and content) ReasonCommentsDizzinessGait ProblemWeakness, GenBUEReasonCommentsDizziness ImbalanceWeakness, Gen (unrecognized sect ion and content) No Status Records FoundNo Status Records FoundNo Status Records FoundNo Status Records FoundNo Status Records FoundNo Status Records FoundNo Status Records FoundNo Status Records Found INFORMATION SOURCE (unrecogn ized section and content) DATE CREATED AUTHOR 10/26/2022 [facility] DATE CREATED AUTHOR AUTHOR'S ORGANIZ ATION 03/09/2023 [facility] DATE CREATED AUTHOR AUTHOR'S ORGANIZ ATION 03/12/2023 [facility] DATE CREATED AUTHOR AUTHOR'S ORGANIZ ATION 03/12/2023 [employer] DATE CREATED AUTHOR AUTHOR'S ORGANIZ ATION 10/06/2024 [facility] DATE CREATED AUTHOR AUTHOR'S ORGANIZ ATION 11/04/2024 [facility] DATE CREATED AUTHOR AUTHOR'S ORGANIZ ATION 04/09/2025 [facility] DATE CREATED AUTHOR AUTHOR'S ORGANIZ ATION 05/03/2025 [facility] Goals (unrecognized section and content) Goals may [...] BE BASED ON THE PRIMARY CLINICAL RECORDS. [facility]. provides no warranty or guarantee of the accuracy or completeness of information in this document.
[2025-07-19 00:17] LABS: Hematocrit 40.1 % (42.0-54.0); Hemoglobin 13.7 g/dL (14.0-18.0); Immature Granulocytes Abs Auto 0.05 10^3/uL (0.00-0.03); Immature Granulocytes Pct Auto 0.4 % (0.0-0.5); Lymphocytes Absolute Auto 0.3 10^3/uL (1.2-3.8); Mean Corpuscular HGB Conc 34.2 g/dL (29.9-35.2); Mean Corpuscular Hemoglobin 34.1 pg (25.9-34.0); Mean Corpuscular Volume 99.8 fL (80.0-94.0); Platelet Count 93 10^3/uL (150-450); Red Blood Count 4.02 10^6/uL (4.70-6.10); White Blood Count 13.3 10^3/uL (4.0-11.0)
[2025-07-19 00:19] LABS: Glucose Urine UA 100 mg/dL (NEGATIVE)
[2025-07-19 00:29] LABS: Cast Seen? SEEN #/LPF (NONE SEEN); Crystals Seen? None Seen #/HPF (None Seen); Urine Culture Indicated NO
[2025-07-19 00:35] LABS: SARS-CoV-2 Ag NEGATIVE (NEGATIVE)
[2025-07-19 00:41] LABS: Anion Gap 14.4; Blood Urea Nitrogen 20.0 mg/dL (7.0-18.0); Calcium 9.0 mg/dL (8.5-10.1); Carbon Dioxide 26.8 mmol/L (21.0-32.0); Chloride 102 mmol/L (98-107); Estimated GFR (African America 59 (>=60 mL/min/1.73m^2); Estimated GFR (Non-African Ame 49 (>=60 mL/min/1.73m^2); Glucose 219 mg/dL (74-106); Potassium 4.2 mmol/L (3.5-5.1); Sodium 139 mmol/L (136-145)
[2025-07-19 00:43] LABS: Lactate/Lactic Acid 2.3 mmol/L (0.4-2.0)
[2025-07-19] MEDS: 0.9 % SODIUM CHLORIDE 500 ML IV (00:44)
--- OUTSIDE RECORDS SUMMARY | 2025-07-19 03:13 | XMS_ITS | CCD ---
Author Organization [facility] Care Team Providers Care Payroll And Benefits Assistant Name Role Phone ERICH ALEJANDRO Primary Care Physician DO Erich Alejandro Primary Care Provider MD Javier Murray Admit Provider [phone] MD Randolph Velasquez Attending Provider [phone] Erich Alejandro Unavailable JAVON, DR GORMAN Admitting [...] Provider Harris DAUGHERTY, Angelo Jason Other Provider West Caraballo MD Attending Provider Harris DAUGHERTY, Angelo Jason Attending Provider INPATIENT, TELENEUROLOGY Consulting Unavail able Erich Alejandro DO Primary Care Provider Terri DAUGHERTY, Javier Claros Admit Provider Mateusz Arellano MD Other Provider Angelo Iglesias MD Other Provider [place] Caraballo MD Attending Provider Angelo Iglesias MD Attending Provider [place] Caraballo MD Referring Provider [phone] Erich Alejandro DO Primary Care Provider Angelo Iglesias MD Attending Provider Erich Alejandro DO Primary Care Provider Staci Burnette MD Attending Provider [phone] Erich Alejandro DO Attending Provider Carlos A BAEZ Attending Unavailable Carlos A BAEZ Attending Unavailable Sobeida Medina Attending Unavailable Carlos A BAEZ Attending Unavailable Javon CRISTINA Erich Primary Care Provider Javon Erich Attending Provider [phone] Staci Burnette MD Attending Provider [phone] Gracia Krishna Attending Provider Javon CRISTINA Erich Primary Care Provider Javon Erich Attending Provider [phone] Angelo Iglesias Admitting Angelo Hernandez Attending Lily Alejandro Erich Primary Care Unavailable Angelo Iglesias Attending [place] Referring Unavailab Erich Alonso Primary Care Unavailable Angelo Iglesias Admitting UnavailWest Vasquez Attending Unavailab Javier Trinidad Admitting Unavailable Mateusz Arellano Consulting Unavailable Erich Alejandro Primary Care Unavailable Angelo Iglesias Consulting Angelo Hernandez MD Attending Provider [place] Caraballo MD Referring Provider [phone] Allergies Allergy ClassificationReported Allergen(s)Allergy TypeDate of OnsetReaction(s) Facility (20 sources)Angiotensin Converting Enzyme (Shruti) Inhibitors; Translations: [Shruti Inhibitors]Allergy to jnnmzcilc48-28-6450VigwqPityrqqnw[facility] ([facility] sources)AcetaminophenDrug Jkqhkjf40-85-8391TWSNLRqfsxxpioMer[facility] (1 source)AcetaminophenDrug AllergyTri[facility] Repository (1 source)patient allergy list reviewed by nurse or physiciaPropensity to adverse btfowhxls89-12-3909Hazyajq:[employer] Other (1 source)Acetaminophen; Translations: [Tylenol][facility] Medications Current Medications MedicationDrug Class(es)DatesSig (Normalized)Sig (Original)acetaminophen 325 mg oral tablet (20 sources)Start: 01-36-4711swej 2 tablets by mouth every six hours as needed for painacetaminophen 325 mg Tab 650 mg = 2 tab(s), Oral, q6hr, PRN pain, Refills(s) 0 Start Date: 09/10/22 Status: OrderedStart: 09-08-2022 End: 10-08-9588yqad 1-3 tablets by mouth every six hours as needed for pain Acetaminophen 325 mg Tablet Discontinued 650 MG PO Every 6 hours as needed for Pain Scale 1 - 3 or fever 0 September 08, 2022 1:00am February 20, 2024 2:42pm Start: 09-08-2022 End: 15-56-6281bniu 650 mg by mouth every six hoursAcetaminophen [...] 0.83 mg/ml inhalation solution (16 sources)beta2-Adrenergic AgonistStart: 32-28-9477ltak 2.5 mg by inhalation every four hoursalbuterol 0.083% Inh Idalia 3 mL 2.5 mg, 3 mL, NEB, q4hr Shortness of breath or wheezing, Refill(s) 0 Start Date: 09/10/22 Status: OrderedAlbuterol Sulfate (2.5 MG/3ML) 0.083% 3 mL as needed Inhalation every 6 hrs Not-Taking ascorbic acid 500 mg oral tablet (20 sources)Vitamin CStart: 75-56-8844YBFOJNNX ACID PO 500 mg 04/15/2024 Active Start: 62-66-9111rdsagquq acid 500 mg Start Date: 04/15/24 Status: Ordered Repeat number: 1Start: 33-12-3660tsbvsocq acid 500 mg Start Date: 04/15/24 Status: OrderedStart: 99-83-4454uylz 1 tablet by mouth once dailyAscorbic Acid (Vitamin C) 500 mg tablet,chewable Active 500 MG PO Daily February 20, 2024 12:00am Comp lies with drug therapyaspirin 81 mg delayed release oral tablet (20 sources)Platelet Aggregation Inhibitor, Nonsteroidal Anti-inflammatory Drug Start: 12-41-3732yxub 1 tablet by mouth once dailyaspirin 81 mg Oral EC Tab 81 mg = 1 tab(s), Oral, Daily, Refills(s) 0 Start Date: 09/10/22 Status: Ordered Repeat number: 1Start: 93-62-8704wpfg 1 tablet by mouth every twenty-four hours Aspirin 81 81 MG 1 tablet Orally Once a day Jan, ActiveStart: 02-19-2018 End: 68-64-5426szph 1 tablet by mouth once dailyAspirin 81 mg Tablet Discontinued 81 MG PO Daily September 04, 2022 1:00am May 18, 2025 12:14 pmStart: 18-81-8555Cdpbf-Glucose Meter (Freestyle Lite Meter) kit (17 sources)Start: 33-14-3797Sjqrb-Glucose Meter (Freestyle Lite Meter) kit Active 0 .Route January 08, 2024 11:00pm to check blood sugar dailyStart: 96-11-8372Tmjvw-Glucose Meter (Freestyle Lite Meter) kit Active 0 .Route 1 January 09, 2024 12:00am to check blood sugar dailycalcium carbonate 1250 mg chewable tablet (1 source)Start: 63-79-4601bvnn 1 tablet by mouth once dailyCalcium Carbonate 500 mg calcium (1,250 mg) tablet,chewable Active 500 MG PO Daily May 18, 2025 12:00am Complies with drug therapyCentrum Silver (1 source)Start: 94-99-5367Audgsun Silver Oral, Daily Start Date: 12/11/24 Status: Ordered Repeat number: 1Centrum Silver 50+Men - (16 sources)Centrum Silver 50+Men - as directed Orally ActiveCholecalciferol (20 sources)Vitamin DStart: 18-01-0900ZBZZGIZCECFESEY PO 10 mcg 04/15/2024 ActiveStart: 42-98-5597mfvyuagiryfqwaj 10 mcg Start Date: 04/15/24 Status: Ordered Repeat number: 1Start: 54-73-3722obbmflyopaklaaq 10 mcg Start Date: 04/15/24 Status: OrderedStart: 48-53-6039xwjm 1 tablet by mouth once daily Cholecalciferol [...] mg/actuat metered dose nasal spray (20 sources)CorticosteroidStart: 16-13-0166jtwvcubwrsz (Flonase) 50 MCG/ACT nasal spray Daily 11/05/2023 ActiveStart: 11-05-2023 End: 36-20-5690Pfnlojxcfum Propionate 50 mcg/actuation spray,suspension Discontinued 2 SPRAY INTRANASAL Daily November 05, 2023 1:00am February 20, 2024 2:45pmStart: 09-04-2022 End: 89-78-1332Gxhxqwtdzvb Propionate (Flonase) 50 mcg/actuation [place],Suspension Discontinued 1 SPRAY INTRANASAL Daily as needed [...] 40.8 mg oral capsule (1 source)Oxidation-Reduction AgentStart: 56-25-9994Kjsuwr oral capsule 1 cap(s), Oral, Daily, 40 caplet(s), Refill(s) 1, [facility]/pharmacy #[id number], 180, cm, 0 04/07/25 10:35:00 EDT, Height/Length Dosing, 110.5, kg, 04/07/25 10:35:00 EDT, Weight Dosing Start Date: 04/07/25 Status: Ordered Quantity: 40.0 Unit: caplet(s) Repeat number: 2lisinopril 20 mg oral tablet (20 sources)Angiotensin Converting Enzyme InhibitorStart: 07-20-2024 End: 03-10-1100ynfr 10 mg by mouth twice dailyLisinopril 20 mg tablet Active 10 MG PO Twice daily November 18, 2024 5:05pm Complies with drug therapyStart: 66-40-4211fzflbsukwh 20 mg Tab Refills(s) 0 Start Date: 01/29/24 Status: Ordered Repeat number: 1Start: 11-11-2023 End: 86-68-6429emba 1 tablet by mouth once dailyLisinopril 20 mg tablet Discontinued 0 .ROUTE .COMPLEX November 11, 2023 1:23pm July 20, 2024 5:55pm TAKE 1 TABLET BY MOUTH EVERY DAYStart: 04-07-2023 End: 10-40-5473conn 1 tablet by mouth once dailyLisinopril 20 mg tablet Discontinued 20 MG PO Daily November 05, 2023 1:00am November 11, 2023 1:23pmStart: 09-19-2022 End: 55-37-0108sccj 1 tablet by mouth once dailylisinopril 20 mg Tab 20 mg = 1 tab(s), Oral, Daily, X 30 day(s), # 30 tab(s), Refills(s) 0, Pharmacy: [facility]/pharmacy #[id number], 180, cm, 08/07/21 10:07:00 EST, Height/Length Dosing, 110.8, kg, 08/07/21 10:07:00 EST, Weight Dosing Start Date: 09/19/22 Stop Date: 10/19/22 Status: OrderedStart: 09-08-2022 End: 06-03-6873nmjq 1 tablet by mouth once dailyLisinopril 10 mg Tablet Discontinued 10 MG PO Daily 0 September 08, 2022 1:00am November 05, 2023 12:25pm Start: 12-23-2020 End: 54-92-2205jblg 1 tablet by mouth once dailyLisinopril 20 mg Tablet Discontinued 20 MG PO Daily September 04, 2022 1:00am September 08, 2022 10:19am24 hr mirabegron 25 mg extended release oral tablet (20 sources)beta3-Adrenergic AgonistStart: 07-38-5078pizs 1 tablet by mouth once dailyMirabegron (Myrbetriq) 25 mg tablet extended release 24 hr Active 25 MG PO Daily April 23, 2025 12:00am Complies with drug therapyStart: 03-08-2025 take 1 tablet by mouth once dailyMyrbetriq 50 mg oral tablet, extended release 50 mg = 1 tab(s), Oral, Daily, # 90 tab(s), Refills(s) 3, Pharmacy: [facility]/pharmacy #[id number], 180, cm, 04/15/24 13:22:00 EDT, Height/Length Dosing, 108, kg, 04/15/24 13:22:00 EDT, Weight Dosing Start Date: 03/08/25 Status: Ordered Quantity: 90.0 Unit: tab(s) Repeat number: 4Start: 01-29-2024 End: 66-90-1596pxnc 1 tablet by mouth once dailyMirabegron 50 mg tablet extended release 24 hr Discontinued 50 MG PO Daily February 05, 2024 12:00am February 20, 2024 2:38qcXf-Byx-Jqmgh-U5-Orxtxpw-Gvflle (Centrum Silver Men) 993-47-823-300 mcg tablet (18 sources)Start: 01-88-2940jsju 1 tablet by mouth once daily Jo-Nkb-Bqadr-A2-Vgfosie-Zzpsts (Centrum Silver Men) 950-76-155-300 mcg tablet Active 1 TAB PO DailyNovember 05, 2023 1:00am Complies with drug therapyStart: 44-14-6721vhin 1 tablet by mouth once dailyStart: 15-75-7461cebr 1 tablet by mouth once oxthfBl-Fte-Rgyzx-J3-Koesbvu-Vaatyi (Centrum Silver Men) 236-30-052-300 mcg tablet Active 1 TAB [facility] DailyOhio[facility] 20[facility] 12:00amStart: 37-81-2035gucw 1 tablet by mouth once nfwmcXn-Osx-Yyjwx-U7-Wcnreie-Llffbc (Centrum Silver Men) 739-75-934-300 mcg tablet Active 1 TAB PO DailyOhio[facility] 2023 1:00amoxybutynin chloride 5 mg oral tablet (20 sources)Cholinergic Muscarinic AntagonistStart: 14-80-8165oudv 1 tablet by mouth at bedtimeoxybutynin 5 mg Tab 5 mg = 1 tab(s), Oral, Bedtime, Take 30 min prior to bedtime., # 30 tab(s), Refills(s) 11, Pharmacy: [facility]/pharmacy #[id number], 180, cm, 04/15/24 13:22:00 EDT, Height/Length Dosing, 108,kg, 04/15/24 13:22:00 EDT, Weight Dosing Start Date: 04/15/24 Status: OrderedStart: 09-04-2022 End: 34-97-6607gbfu 1 tablet by mouth at bedtimeOxybutynin Chloride 5 mg Tablet Discontinued 5 MG PO Bedtime September 04, 2022 1:00am September 08, 2022 10:19am Start: 08-07-2021 End: 93-39-4825lsoi 1 tablet by mouth once dailyOxybutynin Chloride 10 mg tablet extended release 24hr Discontinued 10 MG PO Daily September 04, 2022 1:00am February 20, 2024 2:48pmpotassium chloride 10 meq extended release oral tablet (20 sources)Start: 29-64-8847dmtr 1 tablet by mouth once dailypotassium chloride CR (Klor-Con) 10 MEQ ER tablet Take 10 mEq by mouth Daily 07/02/2024 Active Start: 03-26-2024 End: 47-42-1810rlwc 1 tablet by mouth once dailyPotassium Chloride 10 mEq tablet extended release Active 0 .ROUTE .COMPLEX April 21, 2025 9:03pm TAKE 1 TABLET BY MOUTH EVERY DAY Complies with drug therapyStart: 11-05-2023 End: 08-10-4318iegb 1 tablet by mouth once dailyPotassium Chloride 10 mEq tablet extended release Discontinued 10 MEQ PO Daily November 05, 2023 1:00am March 26, 2024 11:38amStart: 78-81-4129ahtn 1 tablet by mouth every twenty-four hours Klor-Con 10 10 MEQ 1 Tablet Orally daily for 30 day(s) Sep, ActiveStart: 09-08-2022 End: 75-51-3393oshq 1 tablet by mouth once dailyPotassium Chloride 15 mEq tablet,ER particles/crystals Discontinued 15 MEQ PO Daily September 1:00am November 05, 2023 12:26pmRisa-Bid Probiotic - (12 sources)[place]-Bid Probiotic - as directed Orally ActiveSemaglutide (20 sources)Start: 23-05-7986vnqdmj 0.25 mg by subcutaneous injection every week, then inject 0.5 mg by subcutaneous injection every weekSemaglutide (Ozempic) 0.25 mg or 0.5 mg (2 mg/3 mL) pen injector Active 0 .ROUTE .COMPLEX October 15, 2024 8:00am INJECT 0.25 MG SUBCUTANEOUSLY WEEKLY FOR 4 WEEKS, THEN 0.5 MG WEEKLY THEREAFTER Complies with drug therapyStart: 79-29-5046rqctbf 0.25 mg by subcutaneous injection every week, then inject 0.5 mg by subcutaneous injection every weekStart: 13-38-4179agzaor 0.25 mg by subcutaneous injection every week, then inject 0.5 mg by subcutaneous injection every weekSemaglutide (Ozempic) 0.25 mg or 0.5 mg (2 mg/3 mL) pen injector Active 0 .ROUTE .COMPLEX October 15, 2024 8:00am INJECT 0.25 MG SUBCUTANEOUSLY WEEKLY FOR 4 WEEKS, THEN 0.5 MG WEEKLY THEREAFTERStart: 87-49-0932riupzi 0.25 mg by subcutaneous injection every week, then inject 0.5 mg by subcutaneous injection every week Semaglutide (Ozempic) 0.25 mg or 0.5 mg (2 mg/3 mL) pen injector Active 0 .ROUTE .COMPLEX October 15, 2024 7:00am INJECT 0.25 MG SUBCUTANEOUSLY WEEKLY FOR 4 WEEKS, THEN 0.5 MG WEEKLY THEREAFTERStart: 04-09-2024 End: 54-95-3253dzjvlb 0.25 mg by subcutaneous injection every week, then inject 0.5 mg by subcutaneous injection every weekSemaglutide (Ozempic) 0.25 mg or 0.5 mg (2 mg/3 mL) pen injector Discontinued 0 SUBCUT every week April 09, 2024 12:00am October 15, 2024 8:00am 0.25mg SC for 4 weeks, then increase to 0.5mg weeklyStart: 04-09-2024 End: 25-83-8391bihjwx 0.25 mg by subcutaneous injection every week, then inject 0.5 mg by subcutaneous injection every weekSemaglutide (Ozempic) 0.25 mg or 0.5 mg (2 mg/3 mL) pen injector Discontinued 0 SUBCUT every week April 08, 2024 11:00pm October 15, 2024 7:00am 0.25mg SC for 4 weeks, then increase to 0.5mg weeklyStart: 22-46-4586rhyevu 0.25 mg by subcutaneous injection every week, then inject 0.5 mg by subcutaneous injection every weekSemaglutide (Ozempic) 0.25 mg or 0.5 mg (2 mg/3 mL) pen injector Active 0 SUBCUT every week 9 April 08, 2024 11:00pm 0.25mg SC for 4 weeks, then increase to 0.5mg weeklyStart: 89-43-5603amtoqm 0.25 mg by subcutaneous injection every week, then inject 0.5 mg by subcutaneous injection every weekSemaglutide (Ozempic) 0.25 mg or 0.5 mg (2 mg/3 mL) pen injector Active 0 SUBCUT every week 9 April 09, 2024 12:00am 0.25mg SC for 4 weeks, then increase to 0.5mg weeklyOzempic (1 source)Start: 57-72-7132Ammxubw SubCutaneous Start Date: 12/11/24 Status: Ordered Repeat number: 1Semaglutide,0.25 or 0.5MG/DOS, 2 MG/3ML solution pen-injector (5 sources)Start: 73-16-9054Rjvcnrsetka,0.25 or 0.5MG/DOS, 2 MG/3ML solution pen-injector every week 04/09/2024 ActiveSymbicort 160/4.5 inhalation aerosol with adapter (5 sources)Start: 23-14-6169eywe 2 puff(s) by inhalation twice dailySymbicort 160/4.5 inhalation aerosol with adapter 2 puff(s), Inhalation, BID, Refill(s) 0 Start Date: 09/10/22 Status: Orderedtiotropium 0.018 mg inhalation powder (20 sources)AnticholinergicStart: 65-82-7342amjl 1 capsule by inhalation once dailySpiriva HandiHaler 18 mcg inhalation capsule 18 mcg = 1 cap(s), Inhalation, Daily, Refills(s) 0 Start Date: 09/10/22 Status: OrderedStart: 45-38-7918vycv 1 capsule by inhalation once dailySpiriva HandiHaler 18 mcg inhalation capsule 18 mcg = 1 cap(s), Inhalation, Daily, Refills(s) 0 Start Date: 09/10/22 Status: OrderedStart: 09-08-2022 End: 34-96-5358akpu 1 capsule by inhalation once dailyTiotropium [place] (Spiriva With Handihaler) 18 mcg capsule, w/inhalation device Discontinued 1 CAP INHALATION Daily September 08, 2022 1:00am November 05, 2023 12:28pm puncture 1 cap using device; one dose = 2 inhalationstorsemide 10 mg oral tablet (20 sources)Loop DiureticStart: 94-48-5214vmwa 2 tablets by mouth once daily Torsemide 10 mg tablet Active 0 .ROUTE .COMPLEX 180 February 14, 2025 3:00pm TAKE 2 TABLETS BY MOUTH DAILY Complies with drug therapyStart: 11-05-2023 End: 29-26-4798uycd 2 tablets by mouth once dailyTorsemide 10 mg tablet Discontinued 20 MG PO Daily November 05, 2023 12:28pm October 14, 2024 5:25pm Start: 94-88-0959eprd 20 mg by mouth once dailyTorsemide Active 20 MG PO Daily November 05, 2023 12:28pmStart: 90-85-3517mzog 5 mg by mouth once dailytorsemide (Demadex) 10 MG tablet Take 5 mg by mouth Daily 06/17/2023 ActiveStart: 09-08-2022 End: 30-38-5453rokj 1 tablet by mouth once dailyTorsemide 10 mg Tablet Discontinued 10 MG PO DAILY@0800 30 October 14, 2024 1:00am January 3:01pmTorsemide 10 MG 2 Orally daily Activetrospium chloride 20 mg oral tablet (1 source)Cholinergic Muscarinic AntagonistStart: 96-40-1465mtcj 1 tablet by mouth at bedtimetrospium 20 mg oral tablet 20 mg = 1 tab(s), Oral, Bedtime, # 30 tab(s), Refills(s) 11, Pharmacy: [facility]/pharmacy #[id number], 180, cm, 04/15/24 13:22:00 EDT, Height/Length [...] solution (19 sources)Anticholinergic, beta2-Adrenergic AgonistStart: 09-08-2022 End: 78-02-4434uide 1 mL by inhalation three times daily as needed for wheezing Ipratropium-Albuterol 0.5 mg-3 mg(2.5 mg base)/3 mL Solution For Nebulization Discontinued 3 ML INHALATION Three times daily as needed for wheezing 0 September 08, 2022 1:00am November 05, 2023 12:29pmamLODIPine 10 mg oral tablet (20 sources)Dihydropyridine Calcium Channel BlockerStart: 23-37-5428rtsz 5 mg by mouth twice dailyAmlodipine 10 mg tablet Active 5 MG PO Twice daily July 20, 2024 5:52pm On Hold: Until follow-up with your primary care physician Complies with drug therapyStart: 03-31-2024 End: 13-66-7455kdzx 1 tablet by mouth once dailyAmlodipine 10 mg tablet Discontinued 0 .ROUTE .COMPLEX March 31, 2024 8:47am July 20, 2024 5:53pm TAKE 1 TABLET BY MOUTH EVERY DAYStart: 02-20-2024 End: 48-91-6453usrp 5 mg by mouth once dailyAmlodipine 10 mg tablet Discontinued 5 MG PO Daily 0 February 20, 2024 2:43pm March 31, 2024 8:47amStart: 02-20-2024 End: 68-73-4161gdxt 5 mg by mouth once dailyAmlodipine Discontinued 5 MG PO Daily 0 February 20, 2024 2:43pm March 31, 2024 8:47amStart: 09-08-2022 End: 16-70-0688gsqe 1 tablet by mouth once dailyAmlodipine 10 mg Tablet Discontinued 10 MG PO Daily 0 September 08, 2022 1:00am February 20, 2024 2:55pm take 1 tablet by mouth once dailyNorvasc 5 MG Oral Tablet Take 1 tablet daily Quantity: 0 Refills: 0 Ordered: 11-Mar-2023 DO Activeamoxicillin 875 mg / clavulanate 125 mg oral tablet (19 sources)Penicillin-class AntibacterialStart: 09-08-2022 End: 84-73-3959uzmo 1 tablet by mouth twice dailyAmoxicillin-Pot Clavulanate 875-125 mg tablet Discontinued 1 TAB PO Twice daily 14 September 08, 2022 1:00am November 05, 2023 12:22pmazithromycin 250 mg oral tablet (3 sources)Macrolide AntimicrobialStart: 34-62-0851Twabtrrdpsph 250 MG Oral Tablet Quantity: 6 Refills: 0 Ordered: 10-Jan-2023 DO Start : 10-Jan-2023 C ompleteStart: 54-80-1072Iivcpmnrzapv 250 MG as directed Orally daily for 5 days December, ActiveB-12 - up to 1000 mcg (20 sources)Start: 81-12-3286J-12 - up to 1000 mcg Jul, 1000 mcgStart: 88-94-6598T-12 - up to 1000 mcg Jun, 1000 mcgStart: 75-73-4622Q-12 - up to 1000 mcg Mar, 1000 mcgStart: 79-41-4887Lxwjj: 07-38-0465W-12 - up to 1000 mcg Jan, 1000 mcgStart: 75-50-2841Mkuqd: 27-87-5742T-12 - up to 1000 mcg December, 1000 mcgStart: 87-71-0481Aqsny: 07-08-0424X-12 - up to 1000 mcg Oct, 1000 mcgStart: 90-94-5328Ocdso: 83-16-8939U-12 - up to 1000 mcg Oct, 1000 mcgStart: 69-16-9416Cofab: 92-22-1380Z-12 - up to 1000 mcg Sep, 1000 mcgbetamethasone 0.5 mg/ml / clotrimazole 10 mg/ml topical cream (15 sources)Azole Antifungal, CorticosteroidStart: 05-29-2024 End: 71-79-8173Npzoqhujzqyv-Betamethasone 1-0.05 % cream Discontinued 1 APPLIC TOPICAL Twice daily 45 30 2023 12:00am May 18, 2025 12:58bb197 actuat budesonide 0.16 mg/actuat / formoterol fumarate 0.0045 mg/actuat metered dose inhaler (20 sources)Corticosteroid, beta2-Adrenergic AgonistStart: 09-08-2022 End: 78-92-7622Laujvldpek-Formoterol (Symbicort) 160-4.5 mcg/actuation HFA aerosol inhaler Discontinued [...] mg/ml ophthalmic solution (20 sources)Start: 11-05-2023 End: 69-74-8787Ppofzsmvlhifnhcrtquiuf Sodium 0.5 % dropperette Discontinued 1 DROPS OPHTHALMIC As Directed November 05, 2023 1:00am February 20, 2024 2:44pmStart: 11-05-2023 End: 93-01-0613Aliwwqkzbhwhxgdhimeqyx Sodium Discontinued 1 DROPS OPHTHALMIC As Directed [...] 0.5 % dropperette (9 sources)Start: 11-05-2023 End: 22-46-3692Geuusjodgsrsowhsmliouk Sodium 0.5 % dropperette Discontinued 1 DROPS OPHTHALMIC As Directed November 05, 2023 1:00am February 20, 2024 2:44pmStart: 11-05-2023 End: 25-65-6324Qvtapleytuonaurtdzythl Sodium 0.5 % dropperette Discontinued 1 DROPS OPHTHALMIC As Directed November 05, 2023 12:00am February 20, 2024 1:44pm carvedilol 6.25 mg oral tablet (20 sources)alpha-Adrenergic David, beta-Adrenergic BlockerStart: 11-05-2023 End: 91-73-0003ondv 1 tablet by mouth twice dailyCarvedilol 6.25 mg tablet Discontinued 6.25 MG PO Twice daily November 05, 2023 1:00am February 20, 2024 2:44pmStart: 15-00-0883gufy 1 tablet by mouth twice daily at mealtimeCarvedilol 6.25 MG Oral Tablet TAKE 1 TABLET TWICE DAILY WITH MEALS. Quantity: 180 Refills: 1 Ordered: 17-Dec-2022 Cathleen Lopez MD Start : 17-Dec-2022 Active new start D/C Amlodipinecelecoxib 100 mg oral capsule (19 sources)Nonsteroidal Anti-inflammatory DrugStart: 09-04-2022 End: 86-29-6593yskd 1 capsule by mouth twice dailyCelecoxib 100 mg Capsule Discontinued 100 MG PO Twice daily September 04, 2022 1:00am September 08, 2022 10:19amcephalexin 500 mg oral tablet (8 sources)Cephalosporin AntibacterialStart: 01-21-2025 End: 83-92-3883seuv 1 tablet by mouth three times dailyCephalexin 500 mg tablet Discontinued 500 MG PO Three times daily 14 01January 21, 2025 12:00am April 21, 2025 7:11amStart: 02-52-6172qgzv 1 capsule by mouth every eight hours Cephalexin 500 MG 1 capsule Orally tid for 14 days Sep, ActiveDermacinRx Therazole Rocky 1-0.05 & 20 % External Therapy Pack (5 sources)DermacinRx Therazole [place] 1-0.05 & 20 % External Therapy Pack as directed Quantity: 0 Refills: 0Ordered: 12-Nov-2022 DO Activedoxycycline hyclate 100 mg oral tablet (19 sources)Tetracycline-class DrugStart: 09-08-2022 End: 11-72-6073fqpz 1 tablet by mouth every twelve hoursDoxycycline Hyclate 100 mg Tablet Discontinued 100 MG PO Q12H 10 5 September 08, 2022 1:00am November 05, 2023 12:22pmempagliflozin 10 mg oral tablet (20 sources)Sodium-Glucose Cotransporter 2 InhibitorStart: 02-05-2024 End: 76-52-2683iyzg 1 tablet by mouth once dailyEmpagliflozin (Jardiance) [...] Propion-Salmeterol (20 sources)Corticosteroid, beta2-Adrenergic AgonistStart: 11-05-2023 End: 74-37-0520kvqt 1 puff(s) by inhalation twice dailyFluticasone Propion- Salmeterol (Advair Hfa) 115-21 mcg/actuation HFA aerosol inhaler Discontinued 2 PUFF INHALATION Twice daily November 05, 2023 12:00am February 20, 2024 1:45pmStart: 11-05-2023 End: 68-64-8084kqrw 1 puff(s) by inhalation twice dailyFluticasone Propion- Salmeterol (Advair Hfa) 115-21 mcg/actuation HFA aerosol inhaler Discontinued 2 PUFF INHALATION Twice daily November 05, 2023 1:00am February 20, 2024 2:45pmStart: 34-23-5954vqfm 1 puff(s) by inhalation twice dailyFluticasone Propion-Salmeterol (Advair Hfa) 115-21 mcg/actuation HFA aerosol inhaler Active 2 PUFF INHALATION Twice daily November 05, 2023 1:00amStart: 55-71-0732aybp 2 puff(s) by inhalation twice dailyAdvair HFA 115-21 MCG/ACT 2 puffs Inhalation Twice a day Replaces Symbicort Oct, ActiveStart: 77-36-4655ivva 2 puff(s) by inhalation every twelve hoursAdvair HFA 115-21 MCG/ACT Inhalation Aerosol INHALE 2 PUFFS AT 12 HOUR INTERVALS (MORNING AND EVENING). Quantity: 0 Refills: 0 Ordered: 12-Nov-2022 DO Activeglucose 0.4 mg/mg oral gel (19 sources)Start: 09-08-2022 End: 14-30-8534Incxvqho (Glutose-15) 40 % Gel Discontinued 0.6 GM PO PRN as needed for Hypoglycemia 0 September 1:00am February 20, 2024 2:44pm12 hr guaiFENesin 600 mg extended release oral tablet (19 sources)Start: 09-08-2022 End: 46-70-2419cnly 1 tablet by mouth twice daily as needed for cough, then take 1 tablet by mouth every twelve hours as needed for coughGuaifenesin (Mucinex) 600 mg Tablet Extended Release 12hr Discontinued 600 MG PO Twice daily as needed for cough 0 September 08, 2022 1:00am November 05, 2023 12:29pmhydroCHLOROthiazide 12.5 mg oral tablet (20 sources)Thiazide DiureticStart: 09-04-2022 End: 63-13-6940lntl 1 tablet by mouth once dailyHydrochlorothiazide 12.5 mg tablet Discontinued 12.5 MG PO Daily September 04, 2022 1:00am September 08, 2022 10:19amtake 1 tablet by mouth once daily in the morninghydroCHLOROthiazide (HYDRODiuril) 25 MG tablet Take 25 mg by mouth Daily 1 tablet in the morning Act iveHydrochlorothiazide-12.5 mg 12.5 MG (11 sources)Start: 60-50-2011mgvh 1 capsule by mouth once daily in the morning Hydrochlorothiazide-12.5 mg 12.5 MG 1 capsule in the morning Orally Once a day Jan, Not-TakingInsulin Aspart U-100 (Novolog Flexpen U-100 Insulin) 100 unit/mL (3 mL) Insulin Pen (20 sources)Start: 09-08-2022 End: 26-52-4272wwsnhm 1 dose by subcutaneous injection once at mealtimeInsulin Aspart U-100 (Novolog Flexpen U-100 Insulin) 100 unit/mL (3 mL) Insulin Pen Discontinued 1 sliding scale dose SUBCUT 3X/Day with meals and bedtime 0 September 08, 2022 12:00am February 20, 2024 1:45pmStart: 09-08-2022 End: 29-22-0786ngtzxv 5 [IU] by subcutaneous injection once before mealtime Insulin Aspart U-100 (Novolog Flexpen U-100 Insulin) 100 unit/mL (3 mL) Insulin Pen Discontinued 5 UNITS SUBCUT 3x/Day before meals 0 September 08, 2022 12:00am November 05, 2023 11:29amStart: 09-08-2022 End: 16-90-2442pqeobb 1 dose by subcutaneous injection once at mealtimeInsulin Aspart U-100 (Novolog Flexpen U-100 Insulin) 100 unit/mL (3 mL) Insulin Pen Discontinued 1 sliding scale dose SUBCUT 3X/Day with meals and bedtime 0 September 08, 2022 1:00am February 20, 2024 2:45pmStart: 91-51-6992mpoidz 1 dose by subcutaneous injection once at mealtimeInsulin Aspart U-100 (Novolog Flexpen U- 100 Insulin) 100 unit/mL (3 mL) Insulin Pen Active 1 sliding scale dose SUBCUT 3X/Day with meals and bedtime 0 September 08, 2022 1:00amStart: 09-08-2022 End: 04-86-2186kzofaa 5 [IU] by subcutaneous injection once before mealtime Insulin Aspart U-100 (Novolog Flexpen U-100 Insulin) 100 unit/mL (3 mL) Insulin Pen Discontinued 5 UNITS SUBCUT 3x/Day before meals 0 September 08, 2022 1:00am November 05, 2023 12:29pmStart: 26-77-5784ifoadx 1 dose by subcutaneous injection once at mealtimeInsulin Aspart U-100 (Novolog Flexpen U-100 Insulin) 100 unit/mL (3 mL) Insulin Pen Active 1 sliding scale dose SUBCUT 3X/Day with meals and bedtime 0 September 08, 2022 12:00amStart: 19-99-1329xsqooe 5 [IU] by subcutaneous injection once before mealtimeInsulin Aspart U-100 (Novolog Flexpen U-100 Insulin) 100 unit/mL (3 mL) Insulin Pen Active 5 UNITS SUBCUT 3x/Day before meals 0 September 08, 2022 12:00am3 ml insulin aspart, human 100 unt/ml pen injector (9 sources)Insulin AnalogStart: 34-74-4120WevbDBR FlexPen 100 units/mL injectable solution 5 unit(s), SubCutaneous, TIDAC, plus 150-199 3, 200-249 4, 250-299 7, 300-349 10, 350-399 12, 400-449 14, >450 20, Refills(s) 0 Start Date: 09/10/22 Status: OrderedStart: 09-08-2022 End: 85-51-4724trdgad 1 dose by subcutaneous injection once at mealtimeInsulin Aspart U-100 (Novolog Flexpen U-100 Insulin) 100 unit/mL (3 mL) Insulin Pen Discontinued 1 sliding scale dose SUBCUT 3X/Day with meals and bedtime 0 September 08, 2022 1:00am February 20, 2024 2:45pmStart: 09-08-2022 End: 62-77-1169daqpdg 5 [IU] by subcutaneous injection once before mealtime Insulin Aspart U-100 (Novolog Flexpen U-100 Insulin) 100 unit/mL (3 mL) Insulin Pen Discontinued 5 UNITS SUBCUT 3x/Day before meals 0 September 08, 2022 1:00am November 05, 2023 12:29pm3 ml insulin glargine 100 unt/ml pen injector (20 sources)Insulin AnalogStart: 11-05-2023 End: 22-66-0681Uasqyzs Glargine (Lantus Solostar U-100 Insulin) 100 unit/mL (3 mL) insulin pen Discontinued 20 UNIT SUBCUT Daily November 18, 2024 5:26pm November 18, 2024 5:28pmStart: 01-60-2380Wxtgyj Solostar Pen 100 units/mL subcutaneous solution 20 unit(s), SubCutaneous, Daily, Refills(s) 0 Start Date: 09/10/22 Status: Ordered Repeat number: 1Start: 09-08-2022 End: 24-30-6058Efzfrhg Glargine (Lantus Solostar U-100 Insulin) 100 unit/mL (3 mL) Insulin Pen Discontinued 15 UNITS SUBCUT Daily 0 September 08, 2022 1:00am November 05, 2023 12:29pmLantus SoloStar 100 UNIT/ML 20 units Subcutaneous daily Activeketoconazole 20 mg/ml topical cream (1 source)Azole AntifungalStart: 66-41-8537Qfzscbjponll 2 % External Cream Quantity: 60 Refills: 0 Ordered: 07-Feb-2023 DO Start : 07-Feb-2023 Complete Lactobacillus Combination No.4 (Probiotic) 3 billion cell capsule (19 sources)Start: 09-08-2022 End: 90-37-0616jeow 3 capsules by mouth once dailyLactobacillus Combination No.4 (Probiotic) 3 billion cell capsule Discontinued 3000 MMU CELLS PO Daily September 08, 2022 12:00am February 20, 2024 1:45pm administer with a mealStart: 09-08-2022 End: 96-36-0359snio 3 capsules by mouth once dailyLactobacillus Combination No.4 (Probiotic) 3 billion cell capsule Discontinued 3000 MMU CELLS PO Daily September 08, 2022 1:00am February 20, 2024 2:45pm administer with a mealStart: 93-04-1882xcly 3 capsules by mouth once dailyLactobacillus Combination No.4 (Probiotic) 3 billion cell capsule Active 3000 MMU CELLS PO Daily 2022 1:00am administer with a mealStart: 39-11-8312gbbu 3 capsules by mouth once dailyLactobacillus Combination No.4 (Probiotic) 3 billion cell capsule Active 3000 MMU CELLS PO Daily 2022 12:00am administer with a mealmeloxicam 15 mg oral tablet (11 sources)Nonsteroidal Anti-inflammatory Drugtake 1 tablet by mouth every twenty-four hoursMeloxicam 15 MG 1 tablet Orally Once a day Not-TakingmetFORMIN hydrochloride 1000 mg oral tablet (20 sources)BiguanideStart: 12-23-2020 End: 65-68-5535jlfx 1 tablet by mouth twice dailyMetformin 1,000 mg tablet Discontinued 1000 MG PO Twice daily September 04, 2022 1:00am February 05, 2024 11:25amtake 1 tablet by mouth every twelve hoursmetFORMIN HCl - 1000 MG Oral Tablet TAKE 1 TABLET EVERY 12 HOURS Quantity: 180 Refills: 0 Ordered: 1 02-Nov-2022 DO Activemupirocin 0.02 mg/mg topical ointment (20 sources)RNA Synthetase Inhibitor AntibacterialStart: 11-05-2023 End: 00-97-5184Mgdxavhlj 2 % ointment Discontinued 1 APPLIC TOPICAL Twice daily November 05, 2023 1:00am February 20, 2024 2:47pmMupirocin 2 % 1 application Externally Twice a day for 30 days ActiveMupirocin 2 % External Ointment APPLY SPARINGLY TO AFFECTED AREA(S) TWICE DAILY Quantity: 0 Refills: 0 Ordered: 12-Nov-2022 DO ActivePotassium Chloride 15 mEq tablet,ER particles/crystals (9 sources)Start: 09-08-2022 End: 27-18-6469hila 1 tablet by mouth once dailyPotassium Chloride 15 mEq tablet,ER particles/crystals Discontinued 15 MEQ PO Daily September 1:00am November 05, 2023 12:26pmStart: 09-08-2022 End: 67-38-8014ulgv 1 tablet by mouth once dailyPotassium Chloride 15 mEq tablet,ER particles/crystals Discontinued 15 MEQ PO Daily September 12:00am November 05, 2023 11:26ampredniSONE 20 mg oral tablet (20 sources)Start: 12-14-2024 End: 93-34-4022shms 1 tablet by mouth twice daily, then take 1 tablet by mouth once dailyPrednisone 20 mg tablet Discontinued 0 PO As Directed 16 06December 14, 2024 12:00am April 23, 2025 11:01am 1 tablet PO bid w/ food x 5 days then 1 tablet qd w/ food x 5 days.Start: 09-08-2022 End: 28-66-8717crqu 1 tablet by mouth twice daily, then [...] oral capsule (20 sources)alpha-Adrenergic BlockerStart: 10-26-2023 End: 45-36-9879murq 1 capsule by mouth once daily in the eveningTamsulosin 0.4 mg capsule Discontinued 0 .ROUTE .COMPLEX November 18, 2024 5:04pm May 12:15pm TAKE 1 CAPSULE BY MOUTH EVERY EVENINGStart: 05-08-2021 End: 68-19-5947hkrj 1 capsule by mouth once dailyTamsulosin 0.4 mg capsule Discontinued 0.4 MG PO Daily September 04, 2022 1:00am October 2644:55pm tiZANidine 2 mg oral tablet (20 sources)Central alpha-2 Adrenergic AgonistStart: 43-71-8517qfZSJtifcj 2 mg Tab Refills(s) 0 Start Date: 01/29/24 Status: Ordered Repeat number: 1Start: 12-13-2023 End: 73-67-7650yyfd 0.5-1 tablets by mouth once daily at bedtimeTizanidine 2 mg tablet Discontinued 0 .ROUTE .COMPLEX December 16, 2024 1:33pm May 18, 2025 12:15pm TAKE 1/2 TO 1 TABLET BY MOUTH EVERY DAY AT BEDTIMEStart: 07-04-2023 End: 02-82-9372lpod 1 tablet by mouth once daily at bedtimeTizanidine 2 mg tablet Discontinued 2 MG PO Daily at bedtime November 05, 2023 1:00am December 13, 2023 1:56pmtriamcinolone acetonide 0.001 mg/mg topical ointment (6 sources)CorticosteroidStart: 12-14-2024 End: 37-27-3905Nvinctpmslnlg Acetonide 0.1 % ointment Discontinued 1 APPLIC TOPICAL Twice daily 454 December 12:00am May 18, 2025 12:15pm Start: 30-59-3515Bguuxhbnjozmh Acetonide 0.1 % ointment Active 1 APPLIC TOPICAL Twice daily 454 December 14, 2024 12:00am Problems Active Problems Problem ClassificationProblemDateDocumented DateEpisodic/ChronicAbdominal pain (20 sources)Abdominal pain; Translations: [Unspecified abdominal pain] Resolved: 95-18-5331PvdywswjYhyji and unspecified renal failure (19 sources)Acute kidney failure, unspecified; Translations: [Acute renal failure syndrome]Onset: 409322-76-3805ZvlhblltNiczi cerebrovascular disease (1 source)Acute cerebrovascular diseaseOnset: 75-15-1307Wuicv posthemorrhagic anemia (20 sources)Acute posthemorrhagic anemia; Translations: [Acute posthemorrhagic anemia]EpisodicAdministrative/social admission (20 sources)Counseling procedure with explicit context; Translations: [Tobacco abuse counseling]95-43-4235DtldomjoDszpxvi on above:Problem List clean-up per request of Phys. EHR CmteAortic; peripheral; and visceral artery aneurysms (20 sources)Aneurysm of left common iliac artery; Translations: [Aneurysm of iliac artery]ChronicChronic kidney disease (20 sources)Chronic kidney disease stage 3A ; Translations: [Chronic kidney disease, Stage III (moderate)]47-19-7019BnxwutkUxznxlb kidney disease (4 sources)Chronic kidney disease; Translations: [Chronic kidney disease, stage 3a]Onset: 10-20-3006Zvoytib obstructive pulmonary disease and bronchiectasis (20 sources)Chronic obstructive lung disease; Translations: [Chronic obstructive pulmonary disease, unspecified]Onset: 76-72-2490MtfrrpcQcqyrcu on above:Problem List clean-up per request of Phys. EHR CmteCoagulation and hemorrhagic disorders (20 sources)Thrombocytopenic disorder; Translations: [Thrombocytopenia, unspecified]93-95-0684TytmoydEiofmkvkqqrcf of surgical procedures or medical care (1 source)Infection following a procedure, other surgical site, initial encounterEpisodicConditions associated with dizziness or vertigo (18 sources)Benign paroxysmal positional vertigo; Translations: [Benign paroxysmal vertigo, bilateral]Onset: 517408-38-2721WyawcrqtZhasbnwxzr heart failure; nonhypertensive (20 sources)Diastolic heart failure; Translations: [Unspecified diastolic (congestive) heart failure]Onset: 211531-02-6462XanhkklUnvxxlu on above: Problem List clean-up per request of Phys. EHR CmteEcho: LVEF 65%, LVH, normal RV size/function, no valve defect - 3Deficiency and other anemia (6 sources)Anemia due to blood toiv51-16-9784GvwzbpxHbvgspuywe and other anemia (20 sources)Anemia due to chronic blood loss; Translations: [Iron deficiency anemia secondary to blood loss (chronic)]ChronicDeficiency and other anemia (13 sources)Pancytopenia; Translations: [Other pancytopenia]93-43-3931Lzdqlpz Deficiency and other anemia (19 sources)Other pancytopenia; Translations: [Other pancytopenia]Onset: 407540-90-1947MamhfmaXfcywveacc and other anemia (20 sources)Pernicious anemia; Translations: [Vitamin B12 deficiency anemia due to intrinsic factor deficiency]60-81-7479TyvjwosvUwehtqalid and other anemia (20 sources)Vitamin B12 deficiency anemia due to intrinsic factor deficiency; Translations: [Pernicious anemia]Onset: 35-45-0475FcmgrafsHlnmesivwr and other anemia (17 sources)Anemia; Translations: [Anemia, unspecified]63-31-0171Jymnofke Diabetes mellitus with complications (20 sources)Type 2 diabetes mellitus; Translations: [Type 2 diabetes mellitus with hyperglycemia]Onset: 81-68-8494ZmnfazeJdbrkxni mellitus without complication (20 sources)Type 2 diabetes mellitus without complication; Translations: [Type 2 diabetes mellitus without complications]Onset: 32-44-9483PtixwksQvtgljr on above:Problem List clean-up per request of Phys. EHR CmteDisorders of lipid metabolism (20 sources)Mixed hyperlipidemia; Translations: [Mixed hyperlipidemia]Onset: 718477-32-4366UkmrvleNepemkzypryheb and diverticulitis (20 sources)Diverticulosis of colon; Translations: [Diverticulosis of large intestine without perforation or abscess without bleeding]Onset: 07-03-2018 04-79-1523XlzpixuKfldmrkjc hypertension (20 sources)Essential hypertension; Translations: [Essential (primary) hypertension]Onset: 39-33-8242OqpgeoxCqimvql on above:Problem List clean-up per request of Phys. EHR CmteFever of unknown origin (3 sources)Fever, unspecified; Translations: [FEVER UNSPECIFIED]Onset: 95-84-4654SzlxiqnzXmmddcop of upper limb (20 sources)Closed fracture of surgical neck of humerus; Translations: [Closed fracture of humerus]Onset: 971626-50-0066CvbhtvoyZankvjjbkdqal symptoms and ill-defined conditions (13 sources)Urge incontinence; Translations: [Urge incontinence of urine]Onset: 83-66-8957PlgnyybCrvlesqkrltdh symptoms and ill-defined conditions (20 sources)Increased frequency of urination; Translations: [Micturition frequency and polyuria]Onset: 01-29-2024 Resolved: 245589-78-8268EsxgfvwhOgeczlo on above:Problem List clean-up per request of Phys. EHR CmteHeadache; including migraine (6 sources)Headache; Translations: [Headache, unspecified]EpisodicHeart valve disorders (3 sources)Aortic valve stenosis; Translations: [Nonrheumatic aortic (valve) stenosis]63-76-7343IovofljMhooklxtooq of prostate (20 sources)Benign prostatic hypertrophy with outflow obstruction; Translations: [Lower urinary tract symptoms due to benign prostatic hypertrophy]Onset: 921991-71-4156LhuyjyqWcqqkrbasbmq with complications and secondary hypertension (2 sources)Hypertensive heart disease with heart failure; Translations: [Hypertensive heart and chronic kidneydisease]Onset: 96-42-7548Sfhhbse Immunizations and screening for infectious disease (6 sources)Vaccination given; Translations: [Encounter for immunization]Episodic Inflammatory conditions of male genital organs (1 source)Acute prostatitisEpisodicMalaise and fatigue (20 sources)Asthenia; Translations: [Other malaise]Onset: EpisodicComment on above:Problem List clean-up per request of Phys. 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]EpisodicOther aftercare (20 sources)H/O: high risk medication; Translations: [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]EpisodicOther aftercare (1 source)Other senior living (current) drug therapy; Translations: [OTH [facility] CURRENT DRUG THERAPY]Onset: 51-10-8057IzhtxhgjMuxgd aftercare (1 source)truck terminal manager (current) use of aspirin; Translations: [[facility] CURRENT USE OF ASPIRIN]Onset: 22-28-5542SgdtodkxJuhmk aftercare (1 source)snf (current) use of oral hypoglycemic drugs; Translations: [CARTOGRAPHIC TECHNICIAN USE ORAL HYPOGLYCEMIC DX]Onset: 47-13-0650IgwyjdvoKuqhw aftercare (5 sources)Post-discharge follow-up; Translations: [Other follow-up examination] EpisodicOther aftercare (3 sources)truck terminal manager (current) use of insulinEpisodicOther aftercare (6 sources)Long-term current use of drug therapy; Translations: [Other senior living (current) drug therapy]EpisodicOther connective tissue disease (20 sources)Other symptoms and signs involving the nervous system; Translations: [Suspected sleep apnea]EpisodicOther connective tissue disease (1 source)Achilles tendinitis, right legEpisodicOther connective tissue disease (7 sources)Other symptoms and signs involving the musculoskeletal system; Translations: [Weakness of both lower extremities]53-62-6842SpkwgvsmQbksb diseases of bladder and urethra (3 sources)Detrusor overactivity; Translations: [Overactive bladder]Onset: 44-56-4796MmpoollQjkux diseases of bladder and urethra (3 sources)Overactive oftxgwr10-49-1873AddqlcrGuofn diseases of veins and lymphatics (20 sources)Peripheral venous insufficiency; Translations: [Venous insufficiency (chronic) (peripheral)]EpisodicOther diseases of veins and lymphatics (19 sources)Venous insufficiency (chronic) (peripheral); Translations: [Venous (peripheral) insufficiency, unspecified]EpisodicOther diseases of veins and lymphatics (20 sources)Venous insufficiency of leg; Translations: [Venous insufficiency (chronic) (peripheral)]93-64-2550GlwmjfavClrxm ear and sense organ disorders (20 sources)Impacted cerumen; Translations: [Impacted cerumen, right ear]Onset: 10-16-2018 Resolved: 28-29-8693YxqncvfnTnimm gastrointestinal disorders (20 sources)Flatulence, eructation and gas pain; Translations: [Abdominal distension (gaseous)]EpisodicOther gastrointestinal disorders (10 sources)Diarrhea; Translations: [Diarrhea, unspecified]70-98-2610Wuoyvumn Other hematologic conditions (20 sources)Raised cardiac enzyme or marker; Translations: [Other specified abnormalities of plasma proteins]95-16-5261LhtqemhwTpeghin on above:Problem List clean-up per request of Phys. EHR CmteOther hematologic conditions (5 sources)Other specified abnormalities of plasma proteins; Translations: [Other abnormal blood chemistry]Onset: 383039-55-4330JugzkkvzYfzxc injuries and conditions due to external causes (20 sources)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, left arm, subsequent encounter; Translations: [Injury ofradial nerve at upper arm level, left arm, subsequent encounter]EpisodicOther injuries and conditions due to external causes (6 sources)History of fall; Translations: [History of falling]EpisodicOther lower respiratory disease (19 sources)Computed tomography result abnormal; Translations: [Other nonspecific abnormal finding of lung field]45-82-1902HbhczolePpdmjlm on above: Problem List clean-up per request of Phys. EHR CmteOther lower respiratory disease (20 sources)Dyspnea; Translations: [Shortness of breath]EpisodicOther lower respiratory disease (1 source)Hypoxemia; Translations: [HYPOXEMIA]Onset: 34-36-5594PijzlliwIjskh lower respiratory disease (2 sources)Shortness of breath; Translations: [SHORTNESS OF BREATH]Onset: 20-92-1846GkmlyfutVzabp lower respiratory disease (4 sources)Dyspnea on exertion; Translations: [Shortness of breath]EpisodicOther lower respiratory disease (1 source)Other nonspecific abnormal finding of lung fieldEpisodicOther nervous system disorders (6 sources)Polyneuropathy; Translations: [Polyneuropathy, unspecified]Onset: 85-48-539582961585-97-5388YghnturOjymb nervous system disorders (6 sources)Left radial neuropathy; Translations: [Lesion of radial nerve, left upper limb]Onset: 629144-48-8214GepecmuLdnsr nervous system disorders (20 sources)Unsteadiness on feet; Translations: [Unsteady]EpisodicOther nervous system disorders (6 sources)Abnormal gait; Translations: [Unsteadiness on feet]EpisodicOther nervous system disorders (20 sources)General unsteadiness; Translations: [Unsteadiness on feet]11-06-2023 EpisodicOther nervous system disorders (16 sources)Impairment of balance; Translations: [Other abnormalities of gait and mobility]Onset: 722332-29-7556VwotbduwOmptt non-epithelial cancer of skin (20 sources)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; Translations: [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, including shoulder]Onset: 80-02-1252LsploavfCkdvm nutritional; endocrine; and metabolic disorders (12 sources)Simple obesity ; Translations: [Other obesity due to excess calories] Resolved: 360290-93-6329CgxuzjjPejoz nutritional; endocrine; and metabolic disorders (20 sources)Obese class I; Translations: [Body mass index (BMI) 34.0-34.9, adult]Onset: 55-94-1675MgsyrkpXcvlp nutritional; endocrine; and metabolic disorders (20 sources)Obesity; Translations: [Obesity, unspecified]80-31-7223MuhmnkzDuqdj skin disorders (5 sources)Vesicular eczema; Translations: [Dyshidrosis [pompholyx]]12-14-2024 EpisodicOther skin disorders (1 source)Dyshidrosis [pompholyx]; Translations: [Dyshidrosis]42-29-7933Mywjoltl Pneumonia (except that caused by tuberculosis or sexually transmitted disease) (20 sources)Pneumonia; Translations: [Pneumonia, unspecified organism]Onset: 36-79-6368JtfwieluWzzzbua on above:Problem List clean-up per request of Phys. EHR CmteResidual codes; unclassified (20 sources)Obstructive sleep apnea syndrome; Translations: [Obstructive sleep apnea (adult) (pediatric)]31-42-6109WmhleyfYgekabpg codes; unclassified (20 sources)Obstructive sleep apnea (adult) (pediatric); Translations: [Obstructive sleep apnea (adult)(pediatric)]Onset: hronic Residual codes; unclassified (12 sources)Daytime somnolence; Translations: [Other hypersomnia]Onset: 182029-71-4622WiacvatIeemeunf codes; unclassified (1 source)Disorientated; Translations: [Disorientation, unspecified]Onset: 43-16-0995UwlaejbtZspmrqrb codes; unclassified (1 source)Edema; Translations: [Edema, unspecified]Onset: 34-09-4832Uhauuqmb Residual codes; unclassified (6 sources)Hdjafnsr88-98-0934MaqvezlzDeijjokb codes; unclassified (6 sources)Dependent ijthd79-03-0390CqiezjwzQuxbhcbu codes; unclassified (19 sources)Tobacco user; Translations: [Tobacco use]45-48-0576BzkqfjcaOvffthz on above:Problem List clean-up per request of Phys. EHR CmteResidual codes; unclassified (2 sources)Edema of lower extremity; Translations: [Edema]EpisodicResidual codes; unclassified (1 source)Pain, unspecified; Translations: [Pain, unspecified]Onset: 10-11-2024 EpisodicRespiratory failure; insufficiency; arrest (adult) (20 sources)Acute respiratory failure; Translations: [Acute respiratory failure with hypoxia]22-05-5809LjvovusfJpdbsin on above:Problem List clean-up per request of Phys. EHR CmteShock (18 sources)Hypovolemic shock; Translations: [Hypovolemic shock]Onset: 508856-83-6624EsrbcyieWhod and subcutaneous tissue infections (20 sources)Carbuncle of buttock; Translations: [Carbuncle of buttock]Episodic Spondylosis; intervertebral disc disorders; other back problems (20 sources)Lumbar spondylosis; Translations: [Spondylosis without myelopathy or radiculopathy, lumbar region]Onset: 814570-03-3736RchlpqcWpsdtwonf- related disorders (20 sources)Nicotine dependence; Translations: [Nicotine dependence, cigarettes, uncomplicated]Onset: 99-02-6678DtqrkyzTvodbuk (18 sources)Syncope; Translations: [Syncope and collapse]Onset: 10-09-2024 11-01-1402UmjkvlvlRfnwvzbedzlv (6 sources)Asymptomatic microscopic kpwcwwotq49-99-6074Defexgkyfkkv (6 sources)Injury of radial nerve at upper arm yphfv29-40-8103Wfnsjkjzisui (1 source)CONTACT W/AND (SUSP) EXPOS COVID-19; Translations: [CONTACT W/AND (SUSP) EXPOS COVID-19]Onset: 09-06-2022 Past or Other Problems Problem ClassificationProblemDateDocumented DateEpisodic/ChronicDeficiency and other anemia (4 sources)Iron deficiency anemia, unspecified; Translations: [IRON DEFICIENCY ANEMIA UNSPECIFIED]Onset: 05-29-7236NbaoikwhVxxvesi (6 sources)Candidiasis of skin and nails; Translations: [Candidiasis of skin and nail] Resolved: 12-76-1072ZvvoielfMveyluusncxiy gastroenteritis (17 sources)Gastroenteritis; Translations: [Noninfective gastroenteritis and colitis, unspecified]Onset: 312524-41-4526FvcexzldUfdyz acquired deformities (6 sources)Spondylolysis of cervical spine; Translations: [Spondylolysis, cervical region]Onset: 597367-26-5579LitqdrfzWzetc connective tissue disease (6 sources)Bilateral weakness of upper limbs; Translations: [Other symptoms and signs involving the musculoskeletal system]Onset: 719180-91-1834Pgflhunq Other ear and sense organ disorders (6 sources)Cellulitis of right external ear; Translations: [Cellulitis of right external ear] Resolved: 41-64-5002MojfcslyZnjsk gastrointestinal disorders (6 sources)H/O: gastrointestinal disease; Translations: [Personal history of other diseases of the digestive system] Resolved: 89-59-2772PcbhaedxJvguq gastrointestinal disorders (6 sources)Altered bowel function; Translations: [Change in bowel habit] Resolved: 82-76-3386UuchiqpeWcqzg gastrointestinal disorders (7 sources)Diarrhea, unspecified; Translations: [Diarrhea]Onset: 10-09-2024 97-10-3518TplzyqilNcthc nervous system disorders (6 sources)Ataxia; Translations: [Ataxia, unspecified]Onset: 12-31-2023 06-85-4495IxfjbdxfUruyy nervous system disorders (6 sources)Paresthesia; Translations: [Paresthesia of skin]Onset: 12-31-2023 05-09-0617WvrnogzlCirhu screening for suspected conditions (not mental disorders or infectious disease) (6 sources)Disorder of cardiovascular system; 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]Onset: 94-31-8015IfpxclzkMswlvgok codes; unclassified (6 sources)Reduced libido; Translations: [Decreased libido]Onset: 07-03-2018 EpisodicResidual codes; unclassified (6 sources)Confusional state; Translations: [Disorientation, unspecified]Onset: [id number]a and history of mental health and substance abuse codes (12 sources)Ex-smoker; Translations: [Personal history of tobacco use]Onset: 47-24-8249KqtrkwrtQssqhpr on above:quit smoking in 2019;Septicemia (except in labor) (18 sources)Sepsis, unspecified organism; Translations: [Sepsis]Onset: 077776-06-2688NtgxovahWiuqbibxizz; intervertebral disc disorders; other back problems (6 sources)Backache; Translations: [Unspecified backache]Onset: 07-03-2018 EpisodicUnclassified (18 sources)Abdominal aortic aneurysm, without rupture, unspecified; Translations: [Abdominal aortic aneurysm, without rupture, unspecified] Results Test NameValueInterpretationReference RangeFacilityAlbumin [Mass/volume] in Serum or Plasma by Bromocresol green (BCG) dye binding methoOrdered By: Angelo Hurst on 78-63-7762Rcrwbvi BCG dye [Mass/Vol]4.2 g/dL3.5-5.7FC[facility] Lutheran HospitalComprehensive Metabolic Panelon 87-15-6359Sxxlwxk [Mass/Vol]4.2 g/dLNormal3.5-5.7ThSt. Luke's Boise [facility] Center Physician GroupComment on above:Performed By: #### GLULS #### Point of Care testing ,Creatinine Clr Calc Hfjasrrv10.58NormHCA Florida Lake [facility] Hospital Physician GroupComment on above:Performed By: #### GLULS #### Point of Care testing ,GFR/1.73 sq M.predicted MDRD (S/P/Bld) [Vol rate/Area]54.506 mL/min/{1.73_m2} NormalThe [facility]one [facility] Physician GroupComment on above:Performed By: #### GLULS #### Point of Care testing ,Comprehensive Metabolic PanelOrdered By: Angelo Iglesias on 04-26-2025 Albumin/Globulin [Mass ratio]2.2 {ratio}[facility] HospitalComment on above:Performed By: #### GLULS #### Point of Care testing ,ALP [Catalytic activity/Vol]86 U/Q49-506KsfuvbfhlMiddletown Hospital Comment on above:Performed By: #### GLULS #### Point of Care testing ,ALT [Catalytic activity/Vol]13 U/L7-52[facility] HospitalComment on above:Performed By: #### GLULS #### Point of Care testing ,Anion gap [Moles/Vol]9.2 mmol/L6.0-15.0[facility] HospitalComment on above:Performed By: #### GLULS #### Point of Care testing ,AST [Catalytic activity/Vol]13 U/X86-97FdgomtgxfMiddletown HospitalComment on above:Performed By: #### GLULS #### Point of Care testing ,Bilirubin [Mass/Vol]0.5 mg/dL0.3-1.0[facility] HospitalComment on above:Performed By: #### GLULS #### Point of Care testing ,Calcium [Mass/Vol]8.9 mg/dL8.6-10.3FC[facility] Luther[facility] HospitalComment on above:Performed By: #### GLULS #### Point of Care testing ,Chloride [Moles/Vol]101 mmol/U21-237NsmhxvzmiMiddletown HospitalComment on above:Performed By: #### GLULS #### Point of Care testing ,CO2 [Moles/Vol]31.0 mmol/L21.0-31.0[facility] HospitalComment on above:Performed By: #### GLULS #### Point of Care testing ,Creatinine [Mass/Vol]1.28 mg/dL0.70-1.30[facility] Comment on above:Performed By: #### GLULS #### Point of Care testing ,Globulin (S) [Mass/Vol]1.9 g/dLMiddletown HospitalComment on above:Performed By: #### GLULS #### Point of Care testing ,Glucose [Mass/Vol]145 mg/zCKwsw70-692SuuuekvthMiddletown HospitalComment on above:Result Comment: Random Glucose Reference [...] subject supports the diagnosisof Diabetes Mellitus.Potassium [Moles/Vol]4.2 mmol/L3.5-5.1FC[facility] Lutheran HospitalComment on above: Performed By: #### GLULS #### Point of Care testing ,Protein [Mass/Vol]6.1 g/dLLow6.4-8.9[facility] HospitalComment on above:Performed By: #### GLULS #### Point of Care testing ,Sodium [Moles/Vol]137 mmol/X783-955ItwycnazbMiddletown HospitalComment on above:Performed By: #### GLULS #### Point of Care testing ,Urea nitrogen [Mass/Vol]14 mg/dL7-25[facility] HospitalComment on above:Performed By: #### GLULS #### Point of Care testing ,FerritinOrdered By: Angelo Iglesias on 33-03-1524Tubhmpag [Mass/Vol]47.2 ng/mL 23.9-336.2FC[facility] Luther[facility] HospitalComment on above:Performed By: #### GLULS #### Point of Care testing ,Folate [Mass/volume] in Serum or PlasmaOrdered By: Angelo Iglesias on 04-26-2025 Folate [Mass/Vol]42.0 ng/mL>5.9[facility] HospitalComment on above:Folate reference range: >5.9 ng/mlThe WHO technical consultation on folate and vitamin w01dccepzywaetc has determined that folate concentrations lessthan 4 ng/ml are considered deficient.Glomerular filtration rate [Volume Rate/Area] in Serum, Plasma or Blood by CreatinineOrdered By: Angelo Iglesias on 04-26-2025 Glomerular filtration rate [Volume Rate/Area] in Serum, Plasma or Blood by Owhjfyccgx71.506 mL/MinMiddletown HospitalIron and TIBC Profileon 04-26-2025% Iron Qmztbxosgw50.5 %Ftttxn23-22Jfw [facility] Physician GroupComment on above:Performed By: #### GLULS #### Point of Care testing ,Total Iron Binding Nchfrxee512 ug/iMYozors079-569Puu [facility] Comment on above:Performed By: #### GLULS #### Point of Care testing ,Iron and TIBC ProfileOrdered By: Angelo Iglesias on 31-16-2085Wpke [Mass/Vol]86 ug/pH95-040FmzrhdlcsMiddletown HospitalComment on above:Performed By: #### GLULS #### Point of Care testing ,Transferrin [Mass/Vol]232 mg/iI998-224LofzxvtjgMiddletown HospitalComment on above:Performed By: #### GLULS #### Point of Care testing ,LDH Lactate Dehydrogenaseon 72-14-5185YZH Lactate Iougpzqoatjdo509 U/LNormal 140-271The [facility] Physician GroupComment on above:Performed By: #### GLULS #### Point of Care testing ,Lactate dehydrogenase [Enzymatic activity/volume] in Serum or Plasma by Lactate to pyOrdered By: Angelo Iglesias on 70-80-6820HSJ Lactate to pyruvate reaction [Catalytic activity/Vol]140 U/E242-811ZsdaxukdhMiddletown Hospital Leukocytes [#/volume] corrected for nucleated erythrocytes in Blood by Automated counOrdered By: Angelo Iglesias on 72-51-5773DPL corrected for nucl RBC Auto (Bld) [#/Vol]4.0 10*3/uLLow4.1-10.5FC[facility] Luther[facility] HospitalMCHC Auto (RBC) [Mass/Vol]Ordered By: Angelo Iglesias on 79-98-0670XPJT (RBC) [Mass/Vol] 34.6 g/dL32.5-35.6FC[facility] Luther[facility] HospitalNo Panel InformationOrdered By: Angelo Iglesias on 90-81-5912Zqsrjeik Creatinine Clearance (Chem52.58 [facility] HospitalNucleated erythrocytes [Presence] in Blood by Automated countOrdered By: Angelo Iglesias on 34-67-7403Tvcsojsyv RBC Auto Ql (Bld)0.1 /100{WBC}0-0.5FC[facility] Luther[facility] HospitalPlatelet adequacy [Presence] in Blood by Light microscopyOrdered By: Angelo Iglesias on 04-26-2025 Platelets LM Ql (Bld)DecreasedNormMercy HealthPlatelet morphology finding [Identifier] in BloodOrdered By: Angelo Iglesias on 04-26-2025 Platelet morphology finding Nom (Bld)NormalWooster Community Hospitalcan and CBCOrdered By: Angelo Iglesias on 91-72-5202Zezuuffme (Bld) [#/Vol]0.0 10*3/uL0.0-0.2FC[facility] Luther[facility] HospitalComment on above: Performed By: #### GLULS #### Point of Care testing ,Basophils/100 WBC (Bld)0.7 %.[facility] HospitalComment on above: Performed By: #### GLULS #### Point of Care testing ,Eosinophils (Bld) [#/Vol]0.0 10*3/uL0.0-0.45[facility] Comment on above:Performed By: #### GLULS #### Point of Care testing ,Eosinophils/100 WBC (Bld)0.6 %.[facility] HospitalComment on above:Performed By: #### GLULS #### Point of Care testing ,Erythrocyte distribution width (RBC) [Ratio]13.4 %12.0-14.8[facility] HospitalComment on above:Performed By: #### GLULS #### Point of Care testing ,Hematocrit (Bld) [Volume fraction]38.7 %Low38.8-50.0[facility] HospitalComment on above:Performed By: #### GLULS #### Point of Care testing ,Hemoglobin (Bld) [Mass/Vol]13.4 g/dL13.0-17.0[facility] Comment on above:Performed By: #### GLULS #### Point of Care testing ,Lymphocytes (Bld) [#/Vol]0.8 10*3/uLLow1.00-4.8[facility] HospitalComment on above:Performed By: #### GLULS #### Point of Care testing ,Lymphocytes/100 WBC (Bld)18.8 %.[facility] HospitalComment on above:Performed By: #### GLULS #### Point of Care testing ,MCH (RBC) [Entitic mass]33.8 pg27.5-35.2[facility] Comment on above:Performed By: #### GLULS #### Point of Care testing ,MCV (RBC) [Entitic vol]97.9 fL83.5-101[facility] HospitalComment on above:Performed By: #### GLULS #### Point of Care testing ,Monocytes (Bld) [#/Vol]0.4 10*3/uL0.0-0.8[facility] Comment on above:Performed By: #### GLULS #### Point of Care testing ,Monocytes/100 WBC (Bld)10.7 %.[facility] HospitalComment on above:Performed By: #### GLULS #### Point of Care testing ,Neutrophils (Bld) [#/Vol]2.8 10*3/uL1.8-7.7[facility] Comment on above:Performed By: #### GLULS #### Point of Care testing ,Neutrophils/100 WBC (Bld)69.2 %.[facility] HospitalComment on above:Performed By: #### GLULS #### Point of Care testing ,Platelet mean volume (Bld) [Entitic vol]7.9 fL6.6-10.1FC[facility] Luther[facility] HospitalComment on above:Performed By: #### GLULS #### Point of Care testing ,Platelets (Bld) [#/Vol]100 10*3/qAOwo088-304CexchplagMiddletown Hospital Comment on above:Performed By: #### GLULS #### Point of Care testing ,RBC (Bld) [#/Vol]3.95 10*6/uL3.90-5.60[facility] HospitalComment on above:Performed By: #### GLULS #### Point of Care testing ,RBC morphology finding Nom (Bld)NormalTrinity Health System [facility] Campus Comment on above:Performed By: #### GLULS #### Point of Care testing ,WBC (Bld) [#/Vol]4.0 10*3/uLLow4.1-10.5FC[facility] Luther[facility] HospitalComment on above:Performed By: #### GLULS #### Point of Care testing ,Scan and CBCon 73-76-7478Pjwu Corpuscular HGB Conc34.6 g/iXCyciqx63.5-35.6The [facility] Physician GroupComment on above:Performed By: #### GLULS #### Point of Care testing ,NRBC%0.1 /100{WBC}Normal0-0.5The [facility] Physician [facility] CenterComment on above: Performed By: #### GLULS #### Point of Care testing ,Platelet EstimateDecreasedNormalBaptist Medical Center South Physician GroupComment on above:Performed By: #### GLULS #### Point of Care testing ,Platelet MorphologyNormalNormalBaptist Medical Center South Physician GroupComment on above:Result Comment: PERFORMED BY: [facility] [address] PATHOLOGIST DIRECTOR STAFFING MICKEY CABRERA M.D.Performed By: #### GLULS #### Point of Care testing ,White Blood Count4.0 [CFU]/mLLow4.1-10.5The [facility] Physician GroupComment on above:Performed By: #### GLULS #### Point of Care testing ,Serum or plasma iron binding capacity measurement (mass/volume)Ordered By: angelina Iglesias on 76-37-0755Utgx binding capacity [Mass/Vol]325 ug/jP847-638 [facility] Jewish Hospitalerum or plasma iron saturation measurement (mass fraction)Ordered By: angelina Iglesias on 79-29-1664Bqqc saturation [Mass fraction]26.5 %20-50M[facility] HospitalVit. B12/Folate Profile Ordered By: angelina Iglesias on 88-33-9466Syplmykde (Vitamin B12) [Mass/Vol]1025 pg/fAIyka119-107FvmmyxpiuMiddletown HospitalComment on above:Performed By: #### GLULS #### Point of Care testing ,Vit. B12/Folate Profileon 44-58-9080Ueopmj45.0 ng/mLNormal>5.9The [facility] Physician GroupComment on above:Result Comment: Folate reference range: >5.9 ng/ml The WHO technical consultation on folate and vitamin b12 deficiencies has determined that folate concentrations less than 4 ng/ml are considered deficient. PERFORMED BY: [facility] [address] [place] [address] PATHOLOGIST DIRECTOR STAFFING MICKEY CABRERA M.D.Performed By: #### GLULS #### Point of Care testing ,Basophils Auto (Bld) [#/Vol]Ordered By: Erich Alejandro on 35-00-8703Osyjpnecd (Bld) [#/Vol]0.0 10 3/uL0.0-0.1FC[facility] Luther[facility] HospitalBasophils/100 WBC Auto (Bld)Ordered By: Erich Alejandro on 74-95-0423Nkzpocyae/100 WBC (Bld)0.8 %0.2-2.0[facility] HospitalEosinophils/100 WBC Auto (Bld)Ordered By: Erich Alejandro on 87-72-1566Ugqrlbprwbe/100 WBC (Bld)0.2 %Low0.9-7.0[facility] HospitalErythrocyte distribution width Auto (RBC) [Ratio]Ordered By: Erich Alejandro on 90-37-7131Wnblzpzbhnr distribution width (RBC) [Ratio]12.8 %11.0-15.0[facility] HospitalGlobulin Calc (S) [Mass/Vol]Ordered By: Erich Alejandro on 87-69-9666Jimxrwaz (S) [Mass/Vol]3.3 g/dLMiddletown HospitalGlomerular filtration rate (GFR) estimation in non- AmericanOrdered By: Erich Alejandro on 07-85-6855ZQH/1.73 sq M.predicted among non-blacks MDRD (S/P/Bld) [Vol rate/Area]53 mL/min/{1.73_m2}Low>=60 mL/min/1.73m 2FC[facility] Luther[facility] HospitalGlucose mean value [Mass/volume] in Blood Estimated from glycated hemoglobinOrdered By: Erich Aleajndro on 98-76-4730Jcyouwy glucose Estimated from glycated hemoglobin (Bld) [Mass/Vol]137 mg/dLMiddletown HospitalHematocrit Auto (Bld) [Volume fraction]Ordered By: Erich Alejandro on 72-28-9525Cufhvszamk (Bld) [Volume fraction]39.1 %Low42.0-54.0 [facility] HospitalHemoglobin A1c percentageOrdered By: Erich Alejandro 33-60-9196VpS5j (Bld) [Mass fraction]6.4 %High4.5-6.2FC[facility] Luther[facility] HospitalComment on above:ADA RECOMMENDED LIMIT 4.0 - 6.0ADA THERAPEUTIC TARGET < 7.0ACTION SUGGESTED> 7.0Hemoglobin [Mass/volume] in BloodOrdered By: Erich Alejandro on 30-71-1810Lxexqxmfmc (Bld) [Mass/Vol]13.3 g/dLLow14.0-18.0 [facility] HospitalLaboratory - Chemistry and Chemistry - challengeOrdered By: Erich Alejandro on 42-84-0594Cpyketk [Mass/Vol]3.6 g/dL 3.4-5.0[facility] HospitalALP [Catalytic activity/Vol]99 U/L46-116 [facility] HospitalALT [Catalytic activity/Vol]24 U/L16-63 [facility] HospitalAST [Catalytic activity/Vol]10 U/EHto91-54 [facility] HospitalBilirubin [Mass/Vol]0.4 mg/dL0.2-1.0[facility] HospitalCalcium [Mass/Vol]8.7 mg/dL8.5-10.1FC[facility] HospitalChloride [Moles/Vol]104 mmol/L89-735OwvorngxpMiddletown HospitalCO2 [Moles/Vol]31.3 mmol/L21.0-32.0[facility] Creatinine [Mass/Vol]1.29 mg/dL0.70-1.30[facility] GFR/1.73 sq M.predicted MDRD (S/P/Bld) [Vol rate/Area]mL/min/{1.73_m2}>=60 mL/min/1.73m 2FC[facility] Luther[facility] HospitalGlucose [Mass/Vol]157 mg/dLHigh 74-106M[facility] HospitalPotassium [Moles/Vol]4.3 mmol/L3.5-5.1 [facility] HospitalProtein [Mass/Vol]6.9 g/dL6.4-8.2FWVUMedicine Barnesville Hospitalodium [Moles/Vol]138 mmol/R542-208DeoeeczutMiddletown HospitalUrea nitrogen [Mass/Vol]17.0 mg/dL7.0-18.0[facility] HospitalUrea nitrogen/Creatinine [Mass ratio]13.2 mg/mgMiddletown HospitalLaboratory - Hematology and Cell countsOrdered By: Erich Alejandro on 01-69-7348Jieztdje granulocytes/100 WBC (Bld)0.4 %0.0-0.5FC[facility] Luther[facility] HospitalLeukocytes [#/volume] corrected for nucleated erythrocytes in Blood by Automated counOrdered By: Erich Alejandro on 73-74-4466CQD corrected for nucl RBC Auto (Bld) [#/Vol]4.9 10 3/uL4.0-11.0[facility] Lymphocytes Auto (Bld) [#/Vol]Ordered By: Erich Alejandro on 50-34-5150Nfsfyekemsu (Bld) [#/Vol]0.8 10 3/uLLow1.2-3.8[facility] Lymphocytes/100 WBC Auto (Bld)Ordered By: Erich Alejandro on 04-23-2025 Lymphocytes/100 WBC (Bld)16.0 %Low20.5-60.0[facility] HospitalH Auto (RBC) [Entitic mass]Ordered By: Erich Alejandro on 77-41-8636CKS (RBC) [Entitic mass]33.8 pg25.9-34.0[facility] HospitalMCHC Auto (RBC) [Mass/Vol]Ordered By: Erich Alejandro on 18-27-9729AOXC (RBC) [Mass/Vol]34.0 g/dL 29.9-35.2FC[facility] Luther[facility] HospitalMCV Auto (RBC) [Entitic vol]Ordered By: Erich Alejandro on 11-41-6254ACL (RBC) [Entitic vol]99.2 uKRpsi17.0-94.0 [facility] HospitalMonocytes Auto (Bld) [#/Vol]Ordered By: Erich Alejandro on 11-65-8479Eovplhrvq (Bld) [#/Vol]0.5 10 3/uL0.3-0.8[facility] HospitalMonocytes/100 WBC Auto (Bld)Ordered By: Erich Alejandro on 50-67-0434Eprwuejro/100 WBC (Bld)10.5 %1.7-12.0[facility] Neutrophils Auto (Bld) [#/Vol]Ordered By: Erich Alejandro on 93-04-8900Lxjxpzxckft (Bld) [#/Vol]3.5 10 3/uL1.4-6.5FC[facility] Luther[facility] HospitalNeutrophils/100 WBC Auto (Bld)Ordered By: Erich Alejandro on 83-36-4589Zokvylhddmy/100 WBC (Bld) 72.1 %43.0-75.0[facility] HospitalNo Panel InformationOrdered By: Erich Alejandro on 13-09-3830Ycekiabqzfv # (Auto)0.0 10 3/uL0.0-0.7FC[facility] Lutheran HospitalImmature Granulocyte # (Auto)0.02 10 3/uL0.00-0.03 [facility] HospitalPlatelet mean volume Auto (Bld) [Entitic vol] Ordered By: Erich Alejandro on 36-28-5057Pvsxlkjm mean volume (Bld) [Entitic vol] 10.0 fL9.5-13.5FC[facility] Luther[facility] HospitalPlatelets Auto (Bld) [#/Vol] Ordered By: Erich Alejandro on 96-82-6846Aypxldnqz (Bld) [#/Vol]98 10 3/uLLow 150-450M[facility] HospitalRBC Auto (Bld) [#/Vol]Ordered By: Erich Alejandro on 41-96-2097QDX (Bld) [#/Vol]3.94 10 6/uLLow4.70-6.10[facility] Jewish Hospitalerum or plasma albumin/globulin mass ratioOrdered By: Erich Alejandro on 60-04-4050Mppjgma/Globulin [Mass ratio]1.1 {ratio}[facility] Hospitalerum or plasma anion gap determinationOrdered By: Erich Alejandro on 79-08-5263Szxys gap [Moles/Vol]7.0 mmol/LFCleveland Clinic Lutheran HospitalAmbulatory Visit Summaryon 46-47-2505Xudoofmjxr Visit Summary Ambulatory Visit Summary JOSE L [...] A BAEZ MD Where: [facility] [email or web address], [address] [place] [address]- You Need to Schedule the Following Appointments Follow Up with Carlos A BAEZ MD, DONNAL When: Where: [address] [facility] [address] [place] [address]- Medications What How Much When Instructions New hyoscyamine/ methena/ mblue/ phenylsal/ sodbiphos (Uribel oral capsule) 1 Capsules By Mouth Every day Refills: 1 Pickup at [facility]/pharmacy #[id number] Unchanged mirabegron (Myrbetriq 50 mg oral tablet, [...] physician if questions or concerns Pharmacy Information [facility]/pharmacy #[id number]: [address], [place] [phone] Allergies No Known Allergies Problems Ongoing - [...] closed fracture Anemia, blood (more content not included)...[facility] Urology Office/Clinic Noteon 09-44-5773Egqimih Office/Clinic NoteUrology Office/Clinic Note Chief Complaint follow [...] with voice recognition artificial intelligence software, specifically Direct Sitters, Funderbeam and or Rigel. Substitutions may have occurred due to the [...] BAEZ MD, URL [address] [place] [id number]- Additional Instructions: 4 mos Patient Education [...] incontinence Urinary frequency Urinary (more content not included)...[facility] Medical CenterComment on above:Result Comment: Electronically Signed By: Carlos A BAEZ MD\.br\Date and Time Signed: 04/07/25 10:52 EDT\.br\Electronically Co-Signed By: Alisson Saeed.br\Date and Time Co-Signed: 04/07/25 10:50 BHTWaM6n HPLC (Bld) [Mass fraction]on 94-64-0090VuD5n (Bld) [Mass fraction]Hemoglobin A1c/Hemoglobin.total in Blood by HPLCMiddletown HospitalHbA1c (Bld) [Mass fraction]7.1 %[facility] HospitalBasophils/100 WBC Manual cnt (Bld)on 64-56-9142Jjarqihdr/100 WBC (Bld)Basophils/100 leukocytes in Blood by Manual countLow0.2-2.0[facility] HospitalBasophils/100 WBC (Bld)0.0 %Low0.2-2.0[facility] HospitalEosinophils/100 WBC Manual cnt (Bld)on 09-36-2656Rcrtfljhtny/100 WBC (Bld)Eosinophils/100 leukocytes in Blood by Manual countLow0.9-7.0[facility] Eosinophils/100 WBC (Bld)0.0 %Low0.9-7.0[facility] Erythrocyte distribution width Auto (RBC) [Ratio]on 51-47-7841Fmddogpuywp distribution width (RBC) [Ratio]Erythrocyte distribution width [Ratio] by Automated count11.0-15.0[facility] HospitalErythrocyte distribution width (RBC) [Ratio]13.0 %11.0-15.0[facility] Estimated glomerular filtration rate (GFR) non- Americanon 12-17-2024 GFR/1.73 sq M.predicted among non-blacks MDRD (S/P/Bld) [Vol rate/Area]Estimated glomerular filtration rate (GFR) non- AmericanLow>=60 mL/min/1.73m 2 [facility] HospitalGFR/1.73 sq M.predicted among non-blacks MDRD (S/P/Bld) [Vol rate/Area]44 mL/min/{1.73_m2}Low>=60 mL/min/1.73m 2FC[facility] Luther[facility] HospitalGlobulin Calc (S) [Mass/Vol]on 20-56-5760Rmrtwloc (S) [Mass/Vol]Serum globulin measurement by calculation (mass/volume)[facility] HospitalGlobulin (S) [Mass/Vol]2.8 g/dLMiddletown HospitalHematocrit Auto (Bld) [Volume fraction]on 94-28-6855Hjqhiprbux (Bld) [Volume fraction]Hematocrit [Volume Fraction] of Blood by Automated countLow 42.0-54.0[facility] HospitalHematocrit (Bld) [Volume fraction]37.7 %Low42.0-54.0[facility] HospitalHemoglobin [Mass/volume] in Blood on 25-35-9705Rvrvkrhiew (Bld) [Mass/Vol]Hemoglobin [Mass/volume] in BloodLow 14.0-18.0[facility] HospitalHemoglobin (Bld) [Mass/Vol]13.1 g/dL Low14.0-18.0[facility] HospitalLaboratory - Chemistry and Chemistry - challengeon 10-41-0863Tpqhybx [Mass/Vol]3.7 g/dL3.4-5.0[facility] HospitalALP [Catalytic activity/Vol]131 U/KLztd27-006IskvtdvrpMiddletown HospitalALT [Catalytic activity/Vol]20 U/L93-62UssxdmhbhMiddletown HospitalAST [Catalytic activity/Vol]13 U/NEmn77-49CtjigzztbMiddletown HospitalBilirubin [Mass/Vol]0.4 mg/dL0.2-1.0[facility] HospitalCalcium [Mass/Vol]8.7 mg/dL8.5-10.1[facility] Chloride [Moles/Vol]102 mmol/H15-452QuhisotbmMiddletown HospitalCO2 [Moles/Vol]27.1 mmol/L21.0-32.0[facility] HospitalCreatinine [Mass/Vol]1.52 mg/dLHigh0.70-1.30[facility] HospitalGFR/1.73 sq M.predicted MDRD (S/P/Bld) [Vol rate/Area]53 mL/min/{1.73_m2}Low>=60 mL/min/1.73m 2FC[facility] Luther[facility] HospitalGlucose [Mass/Vol]247 mg/dLHigh 74-106M[facility] HospitalPotassium [Moles/Vol]4.2 mmol/L3.5-5.1 [facility] HospitalProtein [Mass/Vol]6.5 g/dL6.4-8.2FWVUMedicine Barnesville Hospitalodium [Moles/Vol]137 mmol/Y868-169HlvtizasvMiddletown HospitalTSH Qn1.099 m[IU]/L0.358-3.740[facility] Urea nitrogen [Mass/Vol]21.0 mg/dLHigh7.0-18.0[facility] Urea nitrogen/Creatinine [Mass ratio]13.8 mg/mgMiddletown Hospital Laboratory - Hematology and Cell countson 80-69-0021Jtijrwnnkif/100 WBC (Bld) 12.0 %Low20.5-60.0[facility] HospitalMonocytes/100 WBC (Bld)3.0 % 1.7-12.0[facility] HospitalLeukocytes [#/volume] corrected for nucleated erythrocytes in Blood by Automated counon 21-11-6140MPL corrected for nucl RBC Auto (Bld) [#/Vol]Leukocytes [#/volume] corrected for nucleated erythrocytes in Blood by Automated coun4.0-11.0[facility] WBC corrected for nucl RBC Auto (Bld) [#/Vol]5.1 10 3/uL4.0-11.0[facility] Auto (RBC) [Entitic mass]on 34-71-7461NIE (RBC) [Entitic mass]MCH [Entitic mass] by Automated ulbooNuxf96.9-34.0[facility] HospitalH (RBC) [Entitic mass]34.6 mfLgwl46.9-34.0[facility] HospitalMCHC Auto (RBC) [Mass/Vol]on 66-13-8877JESG (RBC) [Mass/Vol]MCHC [Mass/volume] by Automated count29.9-35.2FC[facility] HospitalMCHC (RBC) [Mass/Vol]34.7 g/dL29.9-35.2FC[facility] HospitalMCV Auto (RBC) [Entitic vol]on 06-28-8355VTB (RBC) [Entitic vol]MCV [Entitic volume] by Automated tjjefGuos97.0-94.0[facility] HospitalMCV (RBC) [Entitic vol]99.5 tDAxnr70.0-94.0[facility] HospitalNo Panel Informationon 77-71-2185Ghidvpjd Basophils (Manual)0.00 10 3/uL 0.00-0.10[facility] HospitalEosinophils # (Manual)0.00 10 3/uL 0.00-0.70[facility] HospitalLymphocytes # (Manual)0.61 10 3/uLLow 1.20-3.80[facility] HospitalMonocytes # (Manual)0.15 10 3/uLLow 0.30-0.80[facility] Hospitalegmented Neutrophils # (Manual)4.33 10 3/uL1.4-6.5FC[facility] HospitalPlatelet mean volume Auto (Bld) [Entitic vol]on 67-17-7453Aelvwzsn mean volume (Bld) [Entitic vol]Platelet mean volume [Entitic volume] in Blood by Automated countLow9.5-13.5FC[facility] HospitalPlatelet mean volume (Bld) [Entitic vol]9.2 fLLow9.5-13.5FC[facility] HospitalPlatelets Auto (Bld) [#/Vol]on 17-32-9783Prwkcossc (Bld) [#/Vol]Platelets [#/volume] in Blood by Automated hhjfuNpr768-828NbbikkzvvMiddletown HospitalPlatelets (Bld) [#/Vol]111 10 3/wNCei667-624CnldysmrzMiddletown HospitalRBC Auto (Bld) [#/Vol]on 75-02-6739BRK (Bld) [#/Vol] Erythrocytes [#/volume] in Blood by Automated countLow4.70-6.10Middletown HospitalRBC (Bld) [#/Vol]3.79 10 6/uLLow4.70-6.10[facility] Jewish Hospitalegmented neutrophils/100 WBC Manual cnt (Bld)on 69-27-6468Ronggrcik neutrophils/100 WBC (Bld)Manual blood segmented neutrophils/100 szbpyzoakmLibc13.0-75.0[facility] Segmented neutrophils/100 WBC (Bld)85.0 %High43.0-75.0[facility] Hospitalerum or plasma albumin/globulin mass ratioon 84-78-1857Nmqejwo/Globulin [Mass ratio]Serum or plasma albumin/globulin mass ratioMiddletown HospitalAlbumin/Globulin [Mass ratio]1.3 {ratio}[facility] Hospitalerum or plasma anion gap determinationon 42-88-8666Hdrvq gap [Moles/Vol] Serum or plasma anion gap determinationMiddletown HospitalAnion gap [Moles/Vol]12.1 mmol/LFCleveland Clinic Lutheran HospitalAmbulatory Visit Summaryon 71-12-8604Pqaunoeclw Visit SummaryAmbulatory Visit Summary JOSE L AMES :1940 Visit Date:12/11/2024 Ambulatory Visit Instructions Your Diagnosis OAB (overactive bladder) BPH with urinary obstruction Asymptomatic microscopic hematuria Other obstructive and reflux uropathy Your Care Team Attending Physician - JEMAL Median APRN, Sobeida June Primary Care Physician - [...] AM EDT With: LORRAINE DAUGHERTY, Carlos A Hamilotn Where: [facility] [address], [address] [place] [address]- Medications What How Much When Instructions New trospium (trospium 20 mg oral tablet) 1 Tablets By Mouth At bedtime Refills: 11 Pickup at [facility]/pharmacy #[id number] Unchanged amlodipine (amLODIPine 10 mg Tab) Contact [...] physician if questions or concerns Pharmacy Information [facility]/pharmacy #[id number]: [address], [place] [id number] [phone] What How Much When Comments Stop Taking [...] you for choosing us for your care. [facility] CenterUrology Office/Clinic Noteon 04-51-7209Efyhnxv Office/Clinic NoteUrology Office/Clinic Note HPI Staff 84 [...] with voice recognition artificial intelligence software, specifically Direct Sitters, Funderbeam and or Rigel. Substitutions may have occurred due to the [...] SEs -f/u 3-4 mos w/ PVR Ordered: 89071 Measure Post Void residual urine and/or bladder capacity by US- non-imaging Urnls Dip Stick Auto w/o Microscopy POC 33331 2. 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, Sobeida X, FAM, URL Additional Instructions: 3- [...] influenza virus va (more content not included)...NormalFisher Josephine Medical CenterComment on above:Result Comment: Electronically Signed By: JEMAL Medina APRN, Sobeida June\.hussain\Date and Time Signed: 12/11/24 09:45 EDTBasophils Auto (Bld) [#/Vol]Ordered By: Erich Alejandro on 36-02-6731Vitcuxqfe (Bld) [#/Vol]Automated basophil count0.0-0.2FCleveland Clinic Lutheran HospitalBasophils/100 WBC Auto (Bld)Ordered By: Erich Alejandro on 01-42-7233Xwnrigaer/100 WBC (Bld)Automated basophil %.M[facility]letown HospitalCT guided bone marrow bx/aspiron 57-85-8355XJ guided bone marrow bx/[place] [address] [place] Scan Report Signed Patient: Jose L Ames MR#: [id number] : 1940 Acct:[id number] Age/Sex: 84 / M ADM Date: 10/22/24 Loc: CT Room: Type: [facility] Attending Dr: Angelo Iglesias MD Copies to: [...] A Jones M.D.10/22/2024 12:44 PM Dictation Location: [place] [address] Transcribed By: [facility] 10/22/24 1244 Dictated By: Jorge A Jones MD 10/22/24 1243 Signed By: 10/22/24 1244NoSelect Specialty Hospital - [facility]em Physician GroupComplete Blood Count Auto Diffon 18-04-9753Drqqewnza (Bld) [#/Vol]0.0 10*3/uLNormal0.0-0.2The [facility] Health Physician GroupComment on above:Result Comment: PERFORMED BY: [place] [address] PATHOLOGIST DIRECTOR STAFFING ALEX SALMERON M.D.Performed By: #### PTT, FIB-C, PT #### [place] [address] USABasophils/100 WBC (Bld)1.1 %Normal.The [facility] Health Physician GroupComment on above:Performed By: #### PTT, FIB-C, PT #### [place] [address] USAEosinophils (Bld) [#/Vol]0.0 10*3/uLNormal0.0-0.45The [facility] Health Physician GroupComment on above:Performed By: #### PTT, FIB-C, PT #### [place] [address] USAEosinophils/100 WBC (Bld)1.1 %Normal.The [facility] Physician GroupComment on above:Performed By: #### PTT, FIB-C, PT #### [place] [address] USAErythrocyte distribution width (RBC) [Ratio]13.6 %Normal 12.0-14.8The [facility] Health Physician GroupComment on above:Performed By: #### PTT, FIB-C, PT #### [place] [address] USAHematocrit (Bld) [Volume fraction]38.8 %Ogkukd28.8-50.0The [facility] Physician GroupComment on above:Performed By: #### PTT, FIB-C, PT #### [place] [address] USAHemoglobin (Bld) [Mass/Vol]13.4 g/dGCkotlz05.0-17.0The [facility] Physician GroupComment on above:Performed By: #### PTT, FIB-C, PT #### [place] [address] USALymphocytes (Bld) [#/Vol]0.5 10*3/uLLow1.00-4.8The [facility] Physician GroupComment on above:Performed By: #### PTT, FIB-C, PT #### [place] [address] USALymphocytes/100 WBC (Bld)15.2 %Normal.The [facility] Physician GroupComment on above:Performed By: #### PTT, FIB-C, PT #### [place] [address] USAMCH (RBC) [Entitic mass]33.8 mmXnhsui96.5-35.2The [facility] Physician GroupComment on above:Performed By: #### PTT, FIB-C, PT #### [place] [address] USAMCV (RBC) [Entitic vol]97.9 qKTwfkxg88.5-101The [facility] Physician GroupComment on above:Performed By: #### PTT, FIB-C, PT #### [place] [address] USAMean Corpuscular HGB Conc34.5 g/eDNnmkkr84.5-35.6The [facility] Physician GroupComment on above:Performed By: #### PTT, FIB-C, PT #### [place] [address] [place] [address] USAMonocytes (Bld) [#/Vol]0.5 10*3/uLNormal0.0-0.8The [facility] Physician GroupComment on above:Performed By: #### PTT, FIB-C, PT #### [facility] [address] [place] [address] USAMonocytes/100 WBC (Bld)13.7 %Normal.The [facility] Physician GroupComment on above:Performed By: #### PTT, FIB-C, PT #### [facility] [address] [place] [address] USANeutrophils (Bld) [#/Vol]2.3 10*3/uLNormal1.8-7.7The [facility] Physician GroupComment on above:Performed By: #### PTT, FIB-C, PT #### [facility] [address] [place] [address] USANeutrophils/100 WBC (Bld)68.9 %Normal.The [facility] Physician GroupComment on above:Performed By: #### PTT, FIB-C, PT #### [facility] [address] [place] [address] USANRBC%0.1 /100{WBC}Normal0-0.5The [facility] Comment on above:Performed By: #### PTT, FIB-C, PT #### [facility] [address] [place] [address] USAPlatelet mean volume (Bld) [Entitic vol]8.2 fLNormal 6.6-10.1The [facility] Physician GroupComment on above:Performed By: #### PTT, FIB-C, PT #### [facility] [address] [place] [address] USAPlatelets (Bld) [#/Vol]117 10*3/mJUga583-245Obd [facility] Physician GroupComment on above:Performed By: #### PTT, FIB-C, PT #### [facility] [address] [place] [address] USARBC (Bld) [#/Vol]3.96 10*6/uLNormal3.90-5.60The [facility] Physician GroupComment on above:Performed By: #### PTT, FIB-C, PT #### [facility] [address] [place] [address] USAWBC (Bld) [#/Vol]3.4 10*3/uLLow4.1-10.5The [facility] Physician GroupComment on above:Performed By: #### PTT, FIB-C, PT #### [facility] [address] [place] [id number] USAEosinophils Auto (Bld) [#/Vol]Ordered By: Erich Alejadnro on 68-45-4879Bdxvyefrwma (Bld) [#/Vol]Automated eosinophil count0.0-0.45Middletown HospitalEosinophils/100 WBC Auto (Bld)Ordered By: Erich Alejandro on 10-24-2774Dlfrkyximwa/100 WBC (Bld)Automated eosinophil %.Middletown HospitalErythrocyte distribution width Auto (RBC) [Ratio]Ordered By: Erich Alejandro on 07-41-8868Hpfpcgpxwrc distribution width (RBC) [Ratio] Erythrocyte distribution width [Ratio] by Automated count12.0-14.8M[facility]letown HospitalHematocrit Auto (Bld) [Volume fraction]Ordered By: Erich Alejandro on 07-91-3034Bycuzakqbr (Bld) [Volume fraction]Hematocrit [Volume Fraction] of Blood by Automated count38.8-50.0[facility] Hemoglobin [Mass/volume] in BloodOrdered By: Erich Alejandro on 10-22-2024 Hemoglobin (Bld) [Mass/Vol]Hemoglobin [Mass/volume] in Blood13.0-17.0M[facility]letown HospitalINR in Platelet poor plasma by Coagulation assayOrdered By: Angelo Iglesias on 58-07-5352TDQ Coag (PPP) [Relative time]INR in Platelet poor plasma by Coagulation assayMiddletown HospitalComment on above:INR Therapeutic Range A) Pre- [...] by Automated counOrdered By: Erich Alejandro on 48-64-5485GLO corrected for nucl RBC Auto (Bld) [#/Vol]Leukocytes [#/volume] corrected for nucleated erythrocytes in Blood by Automated counLow4.1-10.5FCleveland Clinic Lutheran HospitalLymphocytes Auto (Bld) [#/Vol]Ordered By: Erich Alejandro on 10-22-2024 Lymphocytes (Bld) [#/Vol]Lymphocytes [#/volume] in Blood by Automated countLow 1.00-4.8M[facility] HospitalLymphocytes/100 WBC Auto (Bld)Ordered By: Erich Alejandro on 65-57-6117Dmbmoxpxptj/100 WBC (Bld)Lymphocytes/100 leukocytes in Blood by Automated count.M[facility]letown HospitalMCH Auto (RBC) [Entitic mass]Ordered By: Erich Alejandro on 07-29-9245XJA (RBC) [Entitic mass]MCH [Entitic mass] by Automated count27.5-35.2FCleveland Clinic Lutheran HospitalMCHC Auto (RBC) [Mass/Vol]Ordered By: Erich Alejandro on 36-84-3538HKCG (RBC) [Mass/Vol]MCHC [Mass/volume] by Automated count32.5-35.6FCleveland Clinic Lutheran HospitalMCV Auto (RBC) [Entitic vol]Ordered By: Erich Alejandro on 31-71-4032EFW (RBC) [Entitic vol]MCV [Entitic volume] by Automated count83.5-101 [facility] HospitalMonocytes Auto (Bld) [#/Vol]Ordered By: Erich Alejandro on 90-05-8190Gnfahvxsq (Bld) [#/Vol]Automated blood monocyte count 0.0-0.8M[facility]own HospitalMonocytes/100 WBC Auto (Bld)Ordered By: Erich Alejandro on 20-29-0865Tsruioyjn/100 WBC (Bld)Automated monocyte %.M[facility]letown HospitalNeutrophils Auto (Bld) [#/Vol]Ordered By: Erich Alejandro on 65-74-1160Qncxxdmgflz (Bld) [#/Vol]Neutrophils [#/volume] in Blood by Automated count1.8-7.7FCleveland Clinic Lutheran HospitalNeutrophils/100 WBC Auto (Bld)Ordered By: Erich Alejandro on 22-77-3385Dfnyxblvvaj/100 WBC (Bld)Automated neutrophil %.[facility]own HospitalNo Panel InformationOrdered By: Angelo Iglesias on 11-87-8068Zgrezbbpkwcyl Pathology TestSee commentMiddletown HospitalComment on above:See report. Scanned copy available in EMR.Nucleated erythrocytes [Presence] in Blood by Automated countOrdered By: Erich Alejnadro on 16-14-2355Nkkbtgjci RBC Auto Ql (Bld)Nucleated erythrocytes [Presence] in Blood by Automated count0-0.5FCleveland Clinic Lutheran Hospital Pathology Request for Lab Corpon 15-58-2331Pdydtsffi Request for Lab CorpNormal The [facility] Health Physician GroupComment on above:Result Comment: See report. Scanned copy available in EMR. PERFORMED BY: [place] [address] PATHOLOGIST DIRECTOR STAFFING ALEX SALMERON M.D.Performed By: #### PTT, FIB-C, PT #### [place] [address] USAPlatelet mean volume Auto (Bld) [Entitic vol]Ordered By: Erich Alejandro on 03-06-7249Oqbrqzko mean volume (Bld) [Entitic vol]Platelet mean volume [Entitic volume] in Blood by Automated count6.6-10.1FCleveland Clinic Lutheran HospitalPlatelets Auto (Bld) [#/Vol]Ordered By: Erich Alejandro on 41-09-2641Vczyfuvyz (Bld) [#/Vol]Platelets [#/volume] in Blood by Automated vtbcbIeq406-198EoxflfyxhMiddletown HospitalProthrombin Time INRon 18-47-0347LNK Coag (PPP) [Relative time]1.0 {INR}NormalThe Cone Health Physician GroupComment on above:Result Comment: INR Therapeutic [...] heart valves: 3 - 4.5 PERFORMED BY: [place] [id number] PATHOLOGIST DIRECTOR STAFFING ALEX SALMERON M.D.Performed By: #### BMP, MG, CBC #### [facility] [address] [place] [address] USAPT Coag (PPP) [Time]11.3 sNormal9.0-12.9The [facility] Health Physician GroupComment on above:Result Comment: A hematocrit value greater than 55% may lead to inaccurate results in coagulation testing. Patients having hematocrit values >55% require a special collection tube for coagulation studies. Please contact the laboratory at [phone] for redraw instructions.Performed By: #### BMP, MG, CBC #### [facility] [address] [place] [address] USAProthrombin time (PT)Ordered By: Angelo Iglesias on 76-28-5176ZK Coag (PPP) [Time]Prothrombin time (PT)9.0-12.9M[facility]own HospitalComment on above:A hematocrit value greater than 55% may lead to inaccurate results in coagulation testing. Patientshaving hematocrit values >55% require a special collection tube for coagulation studies. Please contact the laboratory at [phone] for redraw instructions.RBC Auto (Bld) [#/Vol]Ordered By: Erich Alejandro on 48-37-0778SNE (Bld) [#/Vol]Erythrocytes [#/volume] in Blood by Automated count3.90-5.60[facility] HospitalWBC Auto (Bld) [#/Vol]Ordered By: Erich Alejandro on 17-64-6085ASR (Bld) [#/Vol]Leukocytes [#/volume] in Blood by Automated countLow4.1-10.5FCleveland Clinic Lutheran HospitalBasic Metabolic Panelon 76-66-0610Dysxq gap [Moles/Vol]9.3 mmol/LNormal 6.0-15.0The [facility] Physician GroupComment on above:Performed By: #### BMP, MG, CBC #### [facility] [address] [place] [address] USACalcium [Mass/Vol]7.9 mg/dLLow8.6-10.3The [facility] Health Physician GroupComment on above:Performed By: #### BMP, MG, CBC #### [facility] [address] [place] [address] USAChloride [Moles/Vol]104 mmol/PApcfeg92-232Num [facility] Physician GroupComment on above:Performed By: #### BMP, MG, CBC #### [facility] [address] [place] [address] USACO2 [Moles/Vol]27.1 mmol/VUnsycy20.0-31.0The [facility] Physician GroupComment on above:Performed By: #### BMP, MG, CBC #### [place] [address] USACreatinine [Mass/Vol]1.17 mg/dLNormal0.70-1.30The [facility] Physician GroupComment on above:Performed By: #### BMP, MG, CBC #### [facility] [address] [place] [address] USACreatinine Clr Calc Orrbfdsc93.95NormalThe Cone Health Physician GroupComment on above:Performed By: #### BMP, MG, CBC #### [place] [address] USAGFR/1.73 sq M.predicted MDRD (S/P/Bld) [Vol rate/Area] mL/min/{1.73_m2}NormalThe [facility]one Health Physician GroupComment on above:Performed By: #### BMP, MG, CBC #### [place] [address] USAGlucose [Mass/Vol]168 mg/wOCppj21-494Jhq [facility] Physician GroupComment on above:Result Comment: Random Glucose Reference Range is dependent on time and content of last meal. Glucose of more than 200 mg/dL in a nonstressed, ambulatory subject supports the diagnosis of Diabetes Mellitus. ADA recommended reference rangePerformed By: #### BMP, MG, CBC #### [facility] [address] [place] [address] USAPotassium [Moles/Vol]3.4 mmol/LLow3.5-5.1The [facility] Physician GroupComment on above:Performed By: #### BMP, MG, CBC #### [facility] [address] [place] [address] USASodium [Moles/Vol]137 mmol/CXpqclb575-110Asj [facility] Physician GroupComment on above:Performed By: #### BMP, MG, CBC #### [facility] [address] [place] [address] USAUrea nitrogen [Mass/Vol]17 mg/dLNormal7-25The [facility] Physician GroupComment on above:Performed By: #### BMP, MG, CBC #### [facility] [address] [place] [id number] USABasophils Auto (Bld) [#/Vol]Ordered By: [place] on 48-72-9866Mmzljifjo (Bld) [#/Vol]Automated basophil count0.0-0.2 [facility] HospitalBasophils/100 WBC Auto (Bld)Ordered By: [place] on 75-74-1724Dzwzubsax/100 WBC (Bld)Automated basophil %. [facility] HospitalCalcium [Mass/volume] in Serum or PlasmaOrdered By: [place] on 21-97-5332Aqdgduc [Mass/Vol]Calcium [Mass/volume] in Serum or PlasmaLow8.6-10.3FCleveland Clinic Lutheran HospitalCarbon dioxide, total [Moles/volume] in Serum or PlasmaOrdered By: [place] Car[place] on 70-01-7865YY1 [Moles/Vol]Carbon dioxide, total [Moles/volume] in Serum or Plasma 21.0-31.0M[facility]own HospitalChloride [Moles/volume] in Serum or PlasmaOrdered By: [place] on 07-37-9544Asznrwou [Moles/Vol]Chloride [Moles/volume] in Serum or Fepkcb25-237XrezjmjndMiddletown HospitalComplete Blood Count Auto Diffon 77-93-7289Oxoelgntr (Bld) [#/Vol]0.0 10*3/uLNormal 0.0-0.2The [facility] Physician GroupComment on above:Result Comment: PERFORMED BY: [place] [address] PATHOLOGIST DIRECTOR STAFFING ALEX SALMERON M.D.Performed By: #### BMP, MG, CBC #### [facility] [address] [place] [address] USABasophils/100 WBC (Bld)1.4 %Normal.The [facility] Health Physician GroupComment on above:Performed By: #### BMP, MG, CBC #### [facility] [address] [place] [address] USAEosinophils (Bld) [#/Vol]0.1 10*3/uLNormal0.0-0.45The [facility] Health Physician GroupComment on above:Performed By: #### BMP, MG, CBC #### [place] [address] USAEosinophils/100 WBC (Bld)2.0 %Normal.The [facility] Health Physician GroupComment on above:Performed By: #### BMP, MG, CBC #### [place] [address] USAErythrocyte distribution width (RBC) [Ratio]13.1 %Normal 12.0-14.8The [facility] Health Physician GroupComment on above:Performed By: #### BMP, MG, CBC #### [facility] [address] [place] [address] USAHematocrit (Bld) [Volume fraction]32.8 %Low38.8-50.0The [facility] Health Physician GroupComment on above:Performed By: #### BMP, MG, CBC #### [facility] [address] [place] [address] USAHemoglobin (Bld) [Mass/Vol]11.7 g/dLLow13.0-17.0The [facility] Physician GroupComment on above:Performed By: #### BMP, MG, CBC #### [place] [address] USALymphocytes (Bld) [#/Vol]0.8 10*3/uLLow1.00-4.8The [facility] Physician GroupComment on above:Performed By: #### BMP, MG, CBC #### [place] [address] USALymphocytes/100 WBC (Bld)24.6 %Normal.The [facility] Physician GroupComment on above:Performed By: #### BMP, MG, CBC #### [address]H (RBC) [Entitic mass]34.3 faJrwfao87.5-35.2The [facility] Health Physician GroupComment on above:Performed By: #### BMP, MG, CBC #### [address]V (RBC) [Entitic vol]96.0 wRFuwgdm13.5-101The [facility] Health Physician GroupComment on above:Performed By: #### BMP, MG, CBC #### [place] [address] USAMean Corpuscular HGB Conc35.7 g/xXRfiq93.5-35.6The [facility] Physician GroupComment on above:Performed By: #### BMP, MG, CBC #### [place] [address] USAMonocytes (Bld) [#/Vol]0.3 10*3/uLNormal0.0-0.8The [facility] Physician GroupComment on above:Performed By: #### BMP, MG, CBC #### [place] [address] USAMonocytes/100 WBC (Bld)9.8 %Normal.The [facility] Physician GroupComment on above:Performed By: #### BMP, MG, CBC #### [address] [place] [address] USANeutrophils (Bld) [#/Vol]2.0 10*3/uLNormal1.8-7.7The [facility] Physician GroupComment on above:Performed By: #### BMP, MG, CBC #### [facility] [address] [place] [address] USANeutrophils/100 WBC (Bld)62.2 %Normal.The [facility] Physician GroupComment on above:Performed By: #### BMP, MG, CBC #### [facility] [address] [place] [address] USANRBC%0.1 /100{WBC}Normal0-0.5The [facility] Comment on above:Performed By: #### BMP, MG, CBC #### [facility] [address] [place] [address] USAPlatelet mean volume (Bld) [Entitic vol]8.0 fLNormal 6.6-10.1The [facility] Physician GroupComment on above:Performed By: #### BMP, MG, CBC #### [facility] [address] [place] [address] USAPlatelets (Bld) [#/Vol]85 10*3/oPKip333-906Lss [facility] Physician GroupComment on above:Performed By: #### BMP, MG, CBC #### [facility] [address] [place] [address] USARBC (Bld) [#/Vol]3.42 10*6/uLLow3.90-5.60The [facility] Physician GroupComment on above:Performed By: #### BMP, MG, CBC #### [facility] [address] [place] [address] USAWBC (Bld) [#/Vol]3.2 10*3/uLLow4.1-10.5The [facility] Physician GroupComment on above:Performed By: #### BMP, MG, CBC #### [facility] [address] [place] [address] USACreatinine [Mass/volume] in Serum or PlasmaOrdered By: [place] on 46-14-5144Remixrhnrf [Mass/Vol]Creatinine [Mass/volume] in Serum or Plasma0.70-1.30M[facility]own HospitalEosinophils Auto (Bld) [#/Vol]Ordered By: [place] Caraballo on 22-56-3447Gpebghockei (Bld) [#/Vol]Automated eosinophil count0.0-0.45[facility] Eosinophils/100 WBC Auto (Bld)Ordered By: [place] Caraballo on 10-14-2024 Eosinophils/100 WBC (Bld)Automated eosinophil %.[facility] HospitalErythrocyte distribution width Auto (RBC) [Ratio]Ordered By: [place] Caraballo on 41-37-3550Bkqdgavhesk distribution width (RBC) [Ratio]Erythrocyte distribution width [Ratio] by Automated count12.0-14.8[facility] HospitalGlucose Glucometer (BldC) [Mass/Vol]Ordered By: [place] Caraballo on 35-85-2568Nsuuqae [Mass/Vol]Capillary blood glucose measurement by glucometer (mass/volume)[facility] HospitalComment on above:Random Glucose Reference Range is dependent on time and content of last meal. Glucose of more than 200 mg/dL in a nonstressed, ambulatory subject supports the diagnosis of Diabetes Mellitus.Glucose Poct Glucometerson 47-54-5238Txlguzn7Ktb7: Cleaned MeterBaptist Medical Center South Physician GroupComment on above:Result Comment: PERFORMED BY: [place] [address] [place] [address] PATHOLOGIST DIRECTOR STAFFING ALEX SALMERON M.D.Performed By: #### GLULS #### Point of Care testing ,Glucose [Mass/Vol]201 mg/dLBaptist Medical Center South Physician GroupComment on above: Result Comment: Random Glucose Reference Range is dependent on time and content of last meal. Glucose of more than 200 mg/dL in a nonstressed, ambulatory subject supports the diagnosis of Diabetes Mellitus.Performed By: #### GLULS #### Point of Care testing ,Spndubo0Ldw7: Cleaned MeterrmHCA Florida [facility] Hospital Physician GroupComment on above: Result Comment: PERFORMED BY: [facility] [place] [address] PATHOLOGIST DIRECTOR STAFFING ALEX SALMERON M.D.Performed By: #### GLULS #### Point of Care testing ,Glucose [Mass/Vol]145 mg/dLBaptist Medical Center South Physician GroupComment on above: Result Comment: Random Glucose Reference Range is dependent on time and content of last meal. Glucose of more than 200 mg/dL in a nonstressed, ambulatory subject supports the diagnosis of Diabetes Mellitus.Performed By: #### GLULS #### Point of Care testing ,Glucose [Mass/volume] in Serum or PlasmaOrdered By: [place] Caraballo on 18-67-9494Pzzleoa [Mass/Vol]Glucose [Mass/volume] in Serum or DphuzjStdl13-360 [facility] HospitalComment on above:ADA recommended reference rangeRandom Glucose Reference Range is dependent on time and content of last meal. Glucose of more than 200 mg/dL in a nonstressed, ambulatory subject supports the diagnosisof Diabetes Mellitus.Hematocrit Auto (Bld) [Volume fraction]Ordered By: [place] Caraballo on 84-42-4982Isggaybdva (Bld) [Volume fraction]Hematocrit [Volume Fraction] of Blood by Automated pqgzzZnd52.8-50.0 [facility] HospitalHemoglobin [Mass/volume] in BloodOrdered By: [place] Carab[place] on 72-17-1062Odsoijwqew (Bld) [Mass/Vol]Hemoglobin [Mass/volume] in VbqdoDyk74.0-17.0M[facility] HospitalLeukocytes [#/volume] corrected for nucleated erythrocytes in Blood by Automated coun Ordered By: [place] Caraballo on 50-19-8018XME corrected for nucl RBC Auto (Bld) [#/Vol]Leukocytes [#/volume] corrected for nucleated erythrocytes in Blood by Automated counLow4.1-10.5FCleveland Clinic Lutheran HospitalLymphocytes Auto (Bld) [#/Vol]Ordered By: [place] Caraballo on 53-12-2727Hwrfjokgtaf (Bld) [#/Vol]Lymphocytes [#/volume] in Blood by Automated countLow1.00-4.8[facility] HospitalLymphocytes/100 WBC Auto (Bld)Ordered By: [place] Caraballo on 46-12-1608Xtglywdcduz/100 WBC (Bld)Lymphocytes/100 leukocytes in Blood by Automated count.[facility]H Auto (RBC) [Entitic mass]Ordered By: West Caraballo on 54-52-3119TBB (RBC) [Entitic mass]MCH [Entitic mass] by Automated count27.5-35.2FCleveland [facility] Lutheran HospitalMCHC Auto (RBC) [Mass/Vol]Ordered By: West Caraballo on 10-14-2024 MCHC (RBC) [Mass/Vol]MCHC [Mass/volume] by Automated nuyqzQpus28.5-35.6FCleveland Clinic Lutheran HospitalMCV Auto (RBC) [Entitic vol]Ordered By: West Caraballo on 61-06-0837EXH (RBC) [Entitic vol]MCV [Entitic volume] by Automated count83.5-101M[facility] HospitalMagnesiumon 30-17-5947Mqtducere [Mass/Vol]1.7 mg/dLLow1.9-2.7The [facility]one Health Physician GroupComment on above: Result Comment: PERFORMED BY: [place] [address] PATHOLOGIST DIRECTOR STAFFING ALEX SALMERON M.D.Performed By: #### BMP, MG, CBC #### [place] [address] USAMagnesium [Mass/volume] in Serum or PlasmaOrdered By: West Caraballo on 80-93-4800Yncrfjdkp [Mass/Vol]Magnesium [Mass/volume] in Serum or PlasmaLow1.9-2.7FCleveland Clinic Lutheran HospitalMonocytes Auto (Bld) [#/Vol]Ordered By: West Caraballo on 51-85-3786Qotisysak (Bld) [#/Vol] Automated blood monocyte count0.0-0.8[facility] Monocytes/100 WBC Auto (Bld)Ordered By: West Caraballo on 10-14-2024 Monocytes/100 WBC (Bld)Automated monocyte %.[facility] Neutrophils Auto (Bld) [#/Vol]Ordered By: West Caraballo on 10-14-2024 Neutrophils (Bld) [#/Vol]Neutrophils [#/volume] in Blood by Automated count 1.8-7.7FC[facility] Lutheran HospitalNeutrophils/100 WBC Auto (Bld)Ordered By: West Caraballo on 20-52-4672Ocerqlypgxd/100 WBC (Bld)Automated neutrophil %.[facility] HospitalNo Panel InformationOrdered By: West Caraballo on 18-26-8626Duowmyf Glucose CommentGlu2: cleaned meter [facility]own HospitalEstimated GFR (CKD-EPI)> 60.0 mL/MinMiddletown HospitalPharmacy Creatinine Clearance (Chem57.95[facility] HospitalNucleated erythrocytes [Presence] in Blood by Automated countOrdered By: West Caraballo on 69-29-9858Wdstgiyjw RBC Auto Ql (Bld) Nucleated erythrocytes [Presence] in Blood by Automated count0-0.5FCleveland Clinic Lutheran HospitalPlatelet mean volume Auto (Bld) [Entitic vol]Ordered By: West Caraballo on 05-46-6032Sqgbtvzh mean volume (Bld) [Entitic vol] Platelet mean volume [Entitic volume] in Blood by Automated count6.6-10.1 [facility] HospitalPlatelets Auto (Bld) [#/Vol]Ordered By: West Caraballo on 66-19-8118Kgxuxmsbg (Bld) [#/Vol]Platelets [#/volume] in Blood by Automated gksrkLdf619-509UkmphydfdMiddletown HospitalPotassium [Moles/volume] in Serum or PlasmaOrdered By: West Caraballo on 10-14-2024 Potassium [Moles/Vol]Potassium [Moles/volume] in Serum or PlasmaLow3.5-5.1 [facility] HospitalRBC Auto (Bld) [#/Vol]Ordered By: West Caraballo on 12-87-7033LWX (Bld) [#/Vol]Erythrocytes [#/volume] in Blood by Automated countLow3.90-5.60[facility] Jewish Hospitalerum or plasma anion gap determinationOrdered By: West Caraballo on 65-29-5194Cbkco gap [Moles/Vol]Serum or plasma anion gap determination6.0-15.0[facility] Jewish Hospitalodium [Moles/volume] in Serum or PlasmaOrdered By: West Caraballo on 92-15-4731Hehuab [Moles/Vol]Sodium [Moles/volume] in Serum or Yruvlj388-227CorraiultMiddletown HospitalUrea nitrogen [Mass/volume] in Serum or PlasmaOrdered By: West Caraballo on 77-72-9291Oqtc nitrogen [Mass/Vol]Urea nitrogen [Mass/volume] in Serum or Plasma7-25M[facility] HospitalWBC Auto (Bld) [#/Vol]Ordered By: West Caraballo on 02-98-7499TVO (Bld) [#/Vol]Leukocytes [#/volume] in Blood by Automated countLow 4.1-10.5FCleveland Clinic Lutheran HospitalBasic Metabolic Panelon 68-01-3257Uhcmc gap [Moles/Vol]8.8 mmol/LNormal6.0-15.0The Cone Health Physician GroupComment on above:Performed By: #### BMP, MG, CBC #### [facility] [address] [place] [id number] USACalcium [Mass/Vol]7.8 mg/dLLow8.6-10.3The Cone Health Physician GroupComment on above:Performed By: #### BMP, MG, CBC #### [facility] [address] [place] [address] USAChloride [Moles/Vol]107 mmol/EBujxit24-775Uoe [facility] Health Physician GroupComment on above:Performed By: #### BMP, MG, CBC #### [facility] [address] [place] [address] USACO2 [Moles/Vol]25.7 mmol/ZHagcfd30.0-31.0The [facility] Health Physician GroupComment on above:Performed By: #### BMP, MG, CBC #### [place] [address] USACreatinine [Mass/Vol]1.01 mg/dLNormal0.70-1.30The [facility] Health Physician GroupComment on above:Performed By: #### BMP, MG, CBC #### [place] [address] USACreatinine Clr Calc Dwgyhoze74.31NormalThe Cone Health Physician GroupComment on above:Result Comment: PERFORMED BY: [place] [address] PATHOLOGIST DIRECTOR STAFFING ALEX SALMERON M.D.Performed By: #### BMP, MG, CBC #### [place] [address] USAGFR/1.73 sq M.predicted MDRD (S/P/Bld) [Vol rate/Area] mL/min/{1.73_m2}NormalThe Cone Health Physician GroupComment on above:Performed By: #### BMP, MG, CBC #### [place] [address] USAGlucose [Mass/Vol]144 mg/wVKwsi94-185Vvd [facility] Health Physician GroupComment on above:Result Comment: Random Glucose Reference Range is dependent on time and content of last meal. Glucose of more than 200 mg/dL in a nonstressed, ambulatory subject supports the diagnosis of Diabetes Mellitus. ADA recommended reference rangePerformed By: #### BMP, MG, CBC #### [place] [address] USAPotassium [Moles/Vol]3.5 mmol/LNormal3.5-5.1The [facility] Health Physician GroupComment on above:Performed By: #### BMP, MG, CBC #### [place] [address] USASodium [Moles/Vol]138 mmol/VZsxufv685-573Kts [facility] Health Physician GroupComment on above:Performed By: #### BMP, MG, CBC #### [place] [address] USAUrea nitrogen [Mass/Vol]14 mg/dLNormal7-25The [facility] Health Physician GroupComment on above:Performed By: #### BMP, MG, CBC #### [place] [address] USAComplete Blood Count Auto Diffon 36-10-7631Wcnkmfhls (Bld) [#/Vol]0.0 10*3/uLNormal0.0-0.2The [facility] Health Physician GroupComment on above: Result Comment: PERFORMED BY: [place] [address] PATHOLOGIST DIRECTOR STAFFING ALEX SALMERON M.D.Performed By: #### BMP, MG, CBC #### [place] [address] USABasophils/100 WBC (Bld)0.9 %Normal.The [facility] Health Physician GroupComment on above:Performed By: #### BMP, MG, CBC #### [place] [address] USAEosinophils (Bld) [#/Vol]0.0 10*3/uLNormal0.0-0.45The [facility] Health Physician GroupComment on above:Performed By: #### BMP, MG, CBC #### [place] [address] USAEosinophils/100 WBC (Bld)1.7 %Normal.The [facility] Health Physician GroupComment on above:Performed By: #### BMP, MG, CBC #### [place] [address] USAErythrocyte distribution width (RBC) [Ratio]12.9 %Normal 12.0-14.8The [facility]one Health Physician GroupComment on above:Performed By: #### BMP, MG, CBC #### [place] [address] USAHematocrit (Bld) [Volume fraction]33.3 %Low38.8-50.0The [facility] Health Physician GroupComment on above:Performed By: #### BMP, MG, CBC #### [facility] [address] [place] [address] USAHemoglobin (Bld) [Mass/Vol]11.7 g/dLLow13.0-17.0The [facility] Health Physician GroupComment on above:Performed By: #### BMP, MG, CBC #### [place] [address] USALymphocytes (Bld) [#/Vol]0.7 10*3/uLLow1.00-4.8The [facility] Health Physician GroupComment on above:Performed By: #### BMP, MG, CBC #### [place] [address] USALymphocytes/100 WBC (Bld)25.8 %Normal.The [facility] Health Physician GroupComment on above:Performed By: #### BMP, MG, CBC #### [address] (RBC) [Entitic mass]33.7 zsDjtxcz67.5-35.2The Cone Health Physician GroupComment on above:Performed By: #### BMP, MG, CBC #### [place] [address] USAMCV (RBC) [Entitic vol]96.2 vVKyvtqo87.5-101The Cone Health Physician GroupComment on above:Performed By: #### BMP, MG, CBC #### [place] [address] USAMean Corpuscular HGB Conc35.0 g/gSGfxdzy49.5-35.6The [facility] Health Physician GroupComment on above:Performed By: #### BMP, MG, CBC #### [facility] [address] [place] [address] USAMonocytes (Bld) [#/Vol]0.2 10*3/uLNormal0.0-0.8The [facility] Health Physician GroupComment on above:Performed By: #### BMP, MG, CBC #### [place] [address] USAMonocytes/100 WBC (Bld)7.9 %Normal.The [facility] Health Physician GroupComment on above:Performed By: #### BMP, MG, CBC #### [facility] [address] [place] [address] USANeutrophils (Bld) [#/Vol]1.7 10*3/uLLow1.8-7.7The [facility] Health Physician GroupComment on above:Performed By: #### BMP, MG, CBC #### [place] [address] USANeutrophils/100 WBC (Bld)63.7 %Normal.The [facility] Health Physician GroupComment on above:Performed By: #### BMP, MG, CBC #### [place] [address] USANRBC%0.2 /100{WBC}Normal0-0.5The [facility] Comment on above:Performed By: #### BMP, MG, CBC #### [facility] [address] [place] [address] USAPlatelet mean volume (Bld) [Entitic vol]8.0 fLNormal 6.6-10.1The [facility] Health Physician GroupComment on above:Performed By: #### BMP, MG, CBC #### [place] [address] USAPlatelets (Bld) [#/Vol]77 10*3/eKJch190-218Sad [facility] Physician GroupComment on above:Performed By: #### BMP, MG, CBC #### [place] [address] USARBC (Bld) [#/Vol]3.46 10*6/uLLow3.90-5.60The [facility] Health Physician GroupComment on above:Performed By: #### BMP, MG, CBC #### [facility] [address] [place] [address] USAWBC (Bld) [#/Vol]2.7 10*3/uLLow4.1-10.5The [facility] Health Physician GroupComment on above:Performed By: #### BMP, MG, CBC #### [place] [address] USAGlucose Poct Glucometerson 80-39-0835Belghnl [Mass/Vol]184 mg/dLNoSelect Specialty Hospital - [facility] Physician GroupComment on above:Result Comment: Random Glucose Reference Range is dependent on time and content of last meal. Glucose of more than 200 mg/dL in a nonstressed, ambulatory subject supports the diagnosis of Diabetes Mellitus. PERFORMED BY: [place] [address] PATHOLOGIST DIRECTOR STAFFING ALEX SALMERON M.D.Performed By: #### GLULS #### Point of Care testing ,Glucose [Mass/Vol]134 mg/dLNoSelect Specialty Hospital - [facility] Physician GroupComment on above: Result Comment: Random Glucose Reference Range is dependent on time and content of last meal. Glucose of more than 200 mg/dL in a nonstressed, ambulatory subject supports the diagnosis of Diabetes Mellitus. PERFORMED BY: [place] [address] PATHOLOGIST DIRECTOR STAFFING ALEX SALMERON M.D.Performed By: #### PTT, FIB-C, PT #### [place] [address] USAGlucose [Mass/Vol]172 mg/dLNoSelect Specialty Hospital - [facility] Physician GroupComment on above:Result Comment: Random Glucose Reference Range is dependent on time and content of last meal. Glucose of more than 200 mg/dL in a nonstressed, ambulatory subject supports the diagnosis of Diabetes Mellitus. PERFORMED BY: [place] [id number] PATHOLOGIST DIRECTOR STAFFING ALEX SALMERON M.D.Performed By: #### PTT, FIB-C, PT #### [place] [address] USAGlucose [Mass/Vol]125 mg/dLNoSelect Specialty Hospital - [facility] Physician GroupComment on above:Result Comment: Random Glucose Reference Range is dependent on time and content of last meal. Glucose of more than 200 mg/dL in a nonstressed, ambulatory subject supports the diagnosis of Diabetes Mellitus. PERFORMED BY: [place] [address] [place] [address] PATHOLOGIST DIRECTOR STAFFING ALEX SALMERON M.D.Performed By: #### GLULS #### Point of Care testing ,Alanine aminotransferase [Enzymatic activity/volume] in Serum or PlasmaOrdered By: Loyda Carlos on 78-31-3721HME [Catalytic activity/Vol]Alanine aminotransferase [Enzymatic activity/volume] in Serum or Plasma7-52[facility] HospitalAlbumin [Mass/volume] in Serum or Plasma by Bromocresol green (BCG) dye binding methoOrdered By: Loyda Carlos on 03-06-4380Djubovt BCG dye [Mass/Vol]Albumin [Mass/volume] in Serum or Plasma by Bromocresol green (BCG) dye binding methoLow3.5-5.7FCleveland Clinic Lutheran HospitalAlkaline phosphatase [Enzymatic activity/volume] in Serum or PlasmaOrdered By: Loyda Carlos on 24-67-4481MAK [Catalytic activity/Vol]Alkaline phosphatase [Enzymatic activity/volume] in Serum or Cljjay94-433SnoqjktksMiddletown Hospital Aspartate aminotransferase [Enzymatic activity/volume] in Serum or PlasmaOrdered By: Loyda Carlos on 60-28-8988LZJ [Catalytic activity/Vol]Aspartate aminotransferase [Enzymatic activity/volume] in Serum or UklmaqRujz20-84 [facility] HospitalBilirubin.total [Mass/volume] in Serum or PlasmaOrdered By: Loyda Carlos on 87-95-9859Spdqrevwq [Mass/Vol]Bilirubin.total [Mass/volume] in Serum or Plasma0.3-1.0[facility] HospitalComplete Blood Count Auto Diffon 97-27-3672Klegihxce (Bld) [#/Vol]0.0 10*3/uLNormal 0.0-0.2The [facility] Health Physician GroupComment on above:Result Comment: PERFORMED BY: [facility] [address] [place] [address] PATHOLOGIST DIRECTOR STAFFING ALEX SALMERON M.D.Performed By: #### PTT, FIB-C, PT #### [place] [address] USABasophils/100 WBC (Bld)1.0 %Normal.The [facility] Health Physician GroupComment on above:Performed By: #### PTT, FIB-C, PT #### [place] [address] USAEosinophils (Bld) [#/Vol]0.0 10*3/uLNormal0.0-0.45The [facility] Health Physician GroupComment on above:Performed By: #### PTT, FIB-C, PT #### [place] [address] USAEosinophils/100 WBC (Bld)1.5 %Normal.The [facility] Health Physician GroupComment on above:Performed By: #### PTT, FIB-C, PT #### [place] [address] USAErythrocyte distribution width (RBC) [Ratio]13.4 %Normal 12.0-14.8The [facility] Health Physician GroupComment on above:Performed By: #### PTT, FIB-C, PT #### [place] [address] USAHematocrit (Bld) [Volume fraction]32.8 %Low38.8-50.0The [facility] Health Physician GroupComment on above:Performed By: #### PTT, FIB-C, PT #### [place] [address] USAHemoglobin (Bld) [Mass/Vol]11.5 g/dLLow13.0-17.0The [facility] Health Physician GroupComment on above:Performed By: #### PTT, FIB-C, PT #### [place] [address] USALymphocytes (Bld) [#/Vol]0.7 10*3/uLLow1.00-4.8The [facility] Health Physician GroupComment on above:Performed By: #### PTT, FIB-C, PT #### [place] [address] USALymphocytes/100 WBC (Bld)26.9 %Normal.The [facility] Health Physician GroupComment on above:Performed By: #### PTT, FIB-C, PT #### [address] (RBC) [Entitic mass]33.5 tvBracqv14.5-35.2The [facility] Health Physician GroupComment on above:Performed By: #### PTT, FIB-C, PT #### [address] (RBC) [Entitic vol]96.0 zPWmjamk83.5-101The [facility] Health Physician GroupComment on above:Performed By: #### PTT, FIB-C, PT #### [place] [address] USAMean Corpuscular HGB Conc34.9 g/dWYutyys93.5-35.6The [facility] Health Physician GroupComment on above:Performed By: #### PTT, FIB-C, PT #### [place] [address] USAMonocytes (Bld) [#/Vol]0.3 10*3/uLNormal0.0-0.8The [facility] Health Physician GroupComment on above:Performed By: #### PTT, FIB-C, PT #### [place] [address] USAMonocytes/100 WBC (Bld)10.4 %Normal.The [facility] Health Physician GroupComment on above:Performed By: #### PTT, FIB-C, PT #### [facility] [address] [place] [address] USANeutrophils (Bld) [#/Vol]1.5 10*3/uLLow1.8-7.7The [facility] Health Physician GroupComment on above:Performed By: #### PTT, FIB-C, PT #### [place] [address] USANeutrophils/100 WBC (Bld)60.2 %Normal.The [facility] Health Physician GroupComment on above:Performed By: #### PTT, FIB-C, PT #### [facility] [address] [place] [address] USANRBC%0.3 /100{WBC}Normal0-0.5The [facility] Comment on above:Performed By: #### PTT, FIB-C, PT #### [place] [address] USAPlatelet mean volume (Bld) [Entitic vol]8.0 fLNormal 6.6-10.1The [facility] Health Physician GroupComment on above:Performed By: #### PTT, FIB-C, PT #### [place] [address] USAPlatelets (Bld) [#/Vol]73 10*3/nNGvo072-116Gkk [facility] Physician GroupComment on above:Performed By: #### PTT, FIB-C, PT #### [place] [address] USARBC (Bld) [#/Vol]3.42 10*6/uLLow3.90-5.60The [facility] Health Physician GroupComment on above:Performed By: #### PTT, FIB-C, PT #### [place] [address] USAWBC (Bld) [#/Vol]2.5 10*3/uLLow4.1-10.5The [facility] Physician GroupComment on above:Performed By: #### PTT, FIB-C, PT #### [place] [address] USAComprehensive Metabolic Panelon 17-79-6872Zvhpuog [Mass/Vol]3.0 g/dLLow3.5-5.7The [facility] Health Physician GroupComment on above: Performed By: #### PTT, FIB-C, PT #### [place] [address] USAAlbumin/Globulin [Mass ratio]1.8 {ratio}NormalThe Cone Health Physician GroupComment on above:Performed By: #### PTT, FIB-C, PT #### [facility] [address] [place] [id number] USAALP [Catalytic activity/Vol]69 U/JGisdzw06-147Gxw [facility] Physician GroupComment on above:Performed By: #### PTT, FIB-C, PT #### [facility] [address] [place] [address] USAALT [Catalytic activity/Vol]47 U/LNormal7-52The [facility] Health Physician GroupComment on above:Performed By: #### PTT, FIB-C, PT #### [facility] [address] [place] [address] USAAnion gap [Moles/Vol]11.1 mmol/LNormal6.0-15.0The [facility] Health Physician GroupComment on above:Performed By: #### PTT, FIB-C, PT #### [facility] [address] [place] [address] USAAST [Catalytic activity/Vol]42 U/FZaiy92-60Rin [facility] Physician GroupComment on above:Performed By: #### PTT, FIB-C, PT #### [facility] [address] [place] [address] USABilirubin [Mass/Vol]0.3 mg/dLNormal0.3-1.0The [facility] Physician GroupComment on above:Performed By: #### PTT, FIB-C, PT #### [facility] [address] [place] [address] USACalcium [Mass/Vol]7.5 mg/dLLow8.6-10.3The [facility] Physician GroupComment on above:Performed By: #### PTT, FIB-C, PT #### [facility] [address] [place] [id number] USAChloride [Moles/Vol]109 mmol/TFrnr31-130Csu [facility] Physician GroupComment on above:Performed By: #### PTT, FIB-C, PT #### [facility] [address] [place] [address] USACO2 [Moles/Vol]22.7 mmol/RSssyfg43.0-31.0The [facility] Physician GroupComment on above:Performed By: #### PTT, FIB-C, PT #### [facility] [address] [place] [address] USACreatinine [Mass/Vol]1.07 mg/dLNormal0.70-1.30The [facility] Physician GroupComment on above:Performed By: #### PTT, FIB-C, PT #### [facility] [address] [place] [address] USACreatinine Clr Calc Xxyxutor25.69NormHCA Florida [facility] Hospital Physician GroupComment on above:Performed By: #### PTT, FIB-C, PT #### [facility] [address] [place] [address] USAGFR/1.73 sq M.predicted MDRD (S/P/Bld) [Vol rate/Area] mL/min/{1.73_m2}NormalThe [facility]one Health Physician GroupComment on above:Performed By: #### PTT, FIB-C, PT #### [facility] [address] [place] [address] USAGlobulin (S) [Mass/Vol]1.7 g/dLNormKindred Healthcaree [facility] Physician GroupComment on above:Performed By: #### PTT, FIB-C, PT #### [facility] [address] [place] [address] USAGlucose [Mass/Vol]134 mg/kAAbhr14-358Prc [facility] Physician GroupComment on above:Result Comment: Random Glucose Reference Range is dependent on time and content of last meal. Glucose of more than 200 mg/dL in a nonstressed, ambulatory subject supports the diagnosis of Diabetes Mellitus. ADA recommended reference rangePerformed By: #### PTT, FIB-C, PT #### [facility] [address] [place] [address] USAPotassium [Moles/Vol]3.8 mmol/LNormal3.5-5.1The [facility] Physician GroupComment on above:Performed By: #### PTT, FIB-C, PT #### [facility] [address] [place] [address] USAProtein [Mass/Vol]4.7 g/dLLow6.4-8.9The [facility] Physician GroupComment on above:Performed By: #### PTT, FIB-C, PT #### [facility] [address] [place] [address] USASodium [Moles/Vol]139 mmol/WQmftbm553-080Fbx [place] Physician [facility] CenterComment on above:Performed By: #### PTT, FIB-C, PT #### [facility] [address] [place] [address] USAUrea nitrogen [Mass/Vol]14 mg/dLNormal7-e [facility] Physician GroupComment on above:Performed By: #### PTT, FIB-C, PT #### [facility] [address] [place] [address] USAGlobulin Calc (S) [Mass/Vol]Ordered By: Loyda Carlos on 32-76-2192Bdatvhzb (S) [Mass/Vol]Serum globulin measurement by calculation (mass/volume)[facility]let[facility] HospitalGlucose Poct Glucometerson 10-37-8400Ddhocrm [Mass/Vol]195 mg/dLNoSelect Specialty Hospital [facility] Physician [facility] Medical CenterComment on above:Result Comment: Random Glucose Reference Range is dependent on time and content of last meal. Glucose of more than 200 mg/dL in a nonstressed, ambulatory subject supports the diagnosis of Diabetes Mellitus. PERFORMED BY: [place] [address] PATHOLOGIST DIRECTOR STAFFING ALEX SALMERON M.D.Performed By: #### PTT, FIB-C, PT #### [place] [address] USAGlucose [Mass/Vol]171 mg/dLNoSelect Specialty Hospital - [facility] Physician GroupComment on above:Result Comment: Random Glucose Reference Range is dependent on time and content of last meal. Glucose of more than 200 mg/dL in a nonstressed, ambulatory subject supports the diagnosis of Diabetes Mellitus. PERFORMED BY: [place] [address] PATHOLOGIST DIRECTOR STAFFING ALEX SALMERON M.D.Performed By: #### BMP, MG, CBC #### [address] [place] [address] USAGlucose [Mass/Vol]154 mg/dLNoSelect Specialty Hospital - [facility] Physician GroupComment on above:Result Comment: Random Glucose Reference Range is dependent on time and content of last meal. Glucose of more than 200 mg/dL in a nonstressed, ambulatory subject supports the diagnosis of Diabetes Mellitus. PERFORMED BY: [place] [address] PATHOLOGIST DIRECTOR STAFFING ALEX SALMERON M.D.Performed By: #### BMP, MG, CBC #### [place] [address] USAGlucose [Mass/Vol]134 mg/dLNormHCA Florida [facility] Hospital Physician GroupComment on above:Result Comment: Random Glucose Reference Range is dependent on time and content of last meal. Glucose of more than 200 mg/dL in a nonstressed, ambulatory subject supports the diagnosis of Diabetes Mellitus. PERFORMED BY: [place] [id number] PATHOLOGIST DIRECTOR STAFFING ALEX SALMERON M.D.Performed By: #### BMP, MG, CBC #### [place] [id number] USAMagnesiumon 65-76-2671Xtrhldqst [Mass/Vol]1.7 mg/dLLow 1.9-2.7The [facility] Physician GroupComment on above:Result Comment: PERFORMED BY: [place] [id number] PATHOLOGIST DIRECTOR STAFFING ALEX SALMERON M.D.Performed By: #### PTT, FIB-C, PT #### [place] [id number] USAPhosphate [Mass/volume] in Serum or PlasmaOrdered By: Loyda Carlos on 21-59-9004Oqxucjgge [Mass/Vol]Phosphate [Mass/volume] in Serum or Plasma2.5-4.5FCleveland Clinic Lutheran HospitalPhosphoruson 10-12-2024 Phosphate [Mass/Vol]2.9 mg/dLNormal2.5-4.5The [facility] Physician GroupComment on above:Performed By: #### PTT, FIB-C, PT #### [facility] [address] [place] [address] USAProtein [Mass/volume] in Serum or PlasmaOrdered By: Loyda Carlos on 57-29-4441Jrzsdrv [Mass/Vol]Protein [Mass/volume] in Serum or PlasmaLow6.4-8.9[facility] Jewish Hospitalerum or plasma albumin/globulin mass ratioOrdered By: Loyda Carlos on 10-12-2024 Albumin/Globulin [Mass ratio]Serum or plasma albumin/globulin mass ratio [facility] HospitalC reactive protein [Mass/volume] in Serum or PlasmaOrdered By: Loyda Carlos on 06-67-4621DPQ [Mass/Vol]C reactive protein [Mass/volume] in Serum or PlasmaHigh0.0-0.5FCleveland Clinic Lutheran HospitalC- Reactive Proteinon 54-41-6974M-Reactive Protein2.5 mg/dLHigh0.0-0.5The [facility] Physician GroupComment on above:Result Comment: PERFORMED BY: [place] [address] PATHOLOGIST DIRECTOR STAFFING ALEX SALMERON M.D.Performed By: #### BMP, MG, CBC #### [place] [address] USACells analyzed [#]Ordered By: Loyda Carlos on 10-11-2024 Cells analyzed Molgen (Bld/Tiss) [#]Cells analyzed [#].[facility] HospitalCells counted [#]Ordered By: Loyda Carlos on 66-62-5140Acodv counted Molgen (Bld/Tiss) [#]Total cell count.[facility] Cells karyotyped.total [#] in Blood or TissueOrdered By: Loyda Carlos on 81-41-2644Mwbrx karyotyped.total (Bld/Tiss) [#]Cells karyotyped.total [#] in Blood or Tissue.[facility]letown HospitalChrom Leuk/Lymph Cells Analyzon 90-91-0660Omevn Leuk/Lymph Cells Eodjsm5Nypnct.The [facility] Comment on above:Performed By: #### PTT, FIB-C, PT #### [facility] [address] [place] [address] USAChrom Leuk/Lymph Cells Countedon 30-91-0951Pxlrx Leuk/Lymph Cells Isoihen4Cdkogg.The Cone Health Physician GroupComment on above: Performed By: #### PTT, FIB-C, PT #### [facility] [address] [place] [address] USAChrom Leuk/Lymph Cells Karotypon 19-01-7069Xerlf Leuk/Lymph Cells Syjrvgd8Dsrwju.The [facility] Health Physician GroupComment on above: Performed By: #### PTT, FIB-C, PT #### [place] [address] USAChrom Leuk/Lymph Cytogen Reson 84-16-3621Ndngu Leuk/Lymph Cytogen ResComment:Normal.The [facility] Health Physician GroupComment on above:Result Comment: NO MITOTIC ACTIVITYPerformed By: #### PTT, FIB-C, PT #### [place] [address] USAChrom Leuk/Lymph Dir Reviewon 10-48-4566Zsfyv Leuk/Lymph Dir ReviewComment:Normal.The [facility] Health Physician GroupComment on above:Result Comment: Jennie Marino, PhD, FACMG Performed at: [facility] [address] [facility], [place] [id number] Flame Degreaser: Felisha Rivera Formerly [facility], Phone: [phone] PERFORMED BY: [place] [address] PATHOLOGIST DIRECTOR STAFFING ALEX SALMERON M.D.Performed By: #### GLULS #### Point of Care testing ,Chrom Leuk/Lymph GTG Band Reson 52-08-9498Hnwei Leuk/Lymph GTG Band ResN/A Normal.The [facility] Health Physician GroupComment on above:Performed By: #### PTT, FIB-C, PT #### [place] [address] USAChrom Leuk/Lymph Interpretaton 61-32-9768Igzkr Leuk/Lymph InterpretatComment:Normal.The [facility] Health Physician GroupComment on above:Result Comment: NO RESULT [...] a whole genome SNP microarray (test code 719210) may be considered. [employer] [place]@Myeloid multi-gene genomic next generation sequencing panel (test code 410345) may also be considered. Testing can be performed on a residual sample, if available.Performed By: #### GLULS #### Point of Care testing ,Chromosome Leuk/Lymph Spec Tyon 76-17-3218Wbacnmagxy Leuk/Lymph Spec TyComment: Normal.The [facility]ician [facility] Medical CenterComment on above:Result Comment: BLOOD Performed By: #### PTT, FIB-C, PT #### [place] [address] USAChromosome analysis result in ISCN expressionOrdered By: Loyda Carlos on 67-87-5490Zxy analysis result in ISCN expression Molgen Nom (Bld/Tiss)Chromosome analysis result in ISCN expression.Middletown HospitalComment on above:NO MITOTIC ACTIVITYClinical lead fire protection engineer [Identifier] in SpecimenOrdered By: Loyda Carlos on 81-02-3682Euixyhnj lead fire protection engineer Nom (Unsp spec) [ID]Clinical lead fire protection engineer [Identifier] in Specimen.Middletown HospitalComment on above:Jennie Marino, PhD, FACMGPerformed at: [place] - [facility] [id number] [facility] [place], [place] [address]Lab Director: Felisha Rivera Formerly [facility], Phone: [phone] Blood Count Auto Diffon 44-15-4963Dktupzokr (Bld) [#/Vol]0.0 10*3/uLNormal0.0-0.2The [facility] Physician [facility] Medical CenterComment on above:Result Comment: PERFORMED BY: [place] [address] PATHOLOGIST DIRECTOR STAFFING ALEX SALMERON M.D.Performed By: #### BMP, MG, CBC #### [place] [address] USABasophils/100 WBC (Bld)0.8 %Normal.The [facility] Health Physician GroupComment on above:Performed By: #### BMP, MG, CBC #### [place] [address] USAEosinophils (Bld) [#/Vol]0.0 10*3/uLNormal0.0-0.45The [facility] Health Physician GroupComment on above:Performed By: #### BMP, MG, CBC #### [place] [address] USAEosinophils/100 WBC (Bld)1.1 %Normal.The [facility] Health Physician GroupComment on above:Performed By: #### BMP, MG, CBC #### [place] [address] USAErythrocyte distribution width (RBC) [Ratio]13.3 %Normal 12.0-14.8The [facility] Health Physician GroupComment on above:Performed By: #### BMP, MG, CBC #### [place] [address] USAHematocrit (Bld) [Volume fraction]33.2 %Low38.8-50.0The [facility] Health Physician GroupComment on above:Performed By: #### BMP, MG, CBC #### [place] [address] USAHemoglobin (Bld) [Mass/Vol]11.6 g/dLLow13.0-17.0The [facility] Health Physician GroupComment on above:Performed By: #### BMP, MG, CBC #### [place] [address] USALymphocytes (Bld) [#/Vol]0.6 10*3/uLLow1.00-4.8The [facility] Health Physician GroupComment on above:Performed By: #### BMP, MG, CBC #### [address] [place] [address] USALymphocytes/100 WBC (Bld)22.0 %Normal.The [facility] Health Physician GroupComment on above:Performed By: #### BMP, MG, CBC #### [facility] [address] [place] [address] USAMCH (RBC) [Entitic mass]33.7 gyQldjpi61.5-35.2The [facility] Health Physician GroupComment on above:Performed By: #### BMP, MG, CBC #### [facility] [address] [place] [address] USAMCV (RBC) [Entitic vol]96.6 lFWbflvk31.5-101The [facility] Health Physician GroupComment on above:Performed By: #### BMP, MG, CBC #### [place] [address] USAMean Corpuscular HGB Conc34.9 g/cBGgrnqm10.5-35.6The [facility] Health Physician GroupComment on above:Performed By: #### BMP, MG, CBC #### [place] [address] USAMonocytes (Bld) [#/Vol]0.3 10*3/uLNormal0.0-0.8The [facility] Health Physician GroupComment on above:Performed By: #### BMP, MG, CBC #### [place] [address] USAMonocytes/100 WBC (Bld)11.4 %Normal.The [facility] Health Physician GroupComment on above:Performed By: #### BMP, MG, CBC #### [place] [address] USANeutrophils (Bld) [#/Vol]1.8 10*3/uLNormal1.8-7.7The [facility] Health Physician GroupComment on above:Performed By: #### BMP, MG, CBC #### [place] [address] USANeutrophils/100 WBC (Bld)64.7 %Normal.The [facility] Health Physician GroupComment on above:Performed By: #### BMP, MG, CBC #### [facility] [address] [place] [address] USANRBC%0.1 /100{WBC}Normal0-0.5The [facility] Group Comment on above:Performed By: #### BMP, MG, CBC #### [place] [address] USAPlatelet mean volume (Bld) [Entitic vol]8.0 fLNormal 6.6-10.1The [facility] Health Physician GroupComment on above:Performed By: #### BMP, MG, CBC #### [place] [address] USAPlatelets (Bld) [#/Vol]73 10*3/hSAji094-204Ofe [facility] Health Physician GroupComment on above:Performed By: #### BMP, MG, CBC #### [place] [address] USARBC (Bld) [#/Vol]3.44 10*6/uLLow3.90-5.60The [facility] Health Physician GroupComment on above:Performed By: #### BMP, MG, CBC #### [place] [address] USAWBC (Bld) [#/Vol]2.8 10*3/uLLow4.1-10.5The [facility] Health Physician GroupComment on above:Performed By: #### BMP, MG, CBC #### [place] [address] USAComprehensive Metabolic Panelon 19-25-9802Qtyjhmg [Mass/Vol]3.0 g/dLLow3.5-5.7The [facility] Health Physician GroupComment on above: Performed By: #### BMP, MG, CBC #### [place] [address] USAAlbumin/Globulin [Mass ratio]1.6 {ratio}NormalThe Cone Health Physician GroupComment on above:Performed By: #### BMP, MG, CBC #### [place] [address] USAALP [Catalytic activity/Vol]48 U/NOjggdn40-645Owz [facility] Physician GroupComment on above:Performed By: #### BMP, MG, CBC #### [facility] [address] [place] [address] USAALT [Catalytic activity/Vol]29 U/LNormal7-52The [facility] Health Physician GroupComment on above:Performed By: #### BMP, MG, CBC #### [facility] [address] [place] [address] USAAnion gap [Moles/Vol]6.7 mmol/LNormal6.0-15.0The [facility] Health Physician GroupComment on above:Performed By: #### BMP, MG, CBC #### [facility] [address] [place] [address] USAAST [Catalytic activity/Vol]42 U/AIjul37-35Oxk [facility] Physician GroupComment on above:Performed By: #### BMP, MG, CBC #### [facility] [address] [place] [address] USABilirubin [Mass/Vol]0.3 mg/dLNormal0.3-1.0The [facility] Health Physician GroupComment on above:Performed By: #### BMP, MG, CBC #### [place] [address] USACalcium [Mass/Vol]7.5 mg/dLLow8.6-10.3The [facility] Health Physician GroupComment on above:Performed By: #### BMP, MG, CBC #### [facility] [address] [place] [address] USAChloride [Moles/Vol]113 mmol/COquz82-270Cze [facility] Physician GroupComment on above:Performed By: #### BMP, MG, CBC #### [facility] [address] [place] [address] USACO2 [Moles/Vol]23.2 mmol/SIiczpv78.0-31.0The [facility] Health Physician GroupComment on above:Performed By: #### BMP, MG, CBC #### [facility] [address] [place] [address] USACreatinine [Mass/Vol]1.16 mg/dLNormal0.70-1.30The [facility] Health Physician GroupComment on above:Performed By: #### BMP, MG, CBC #### [facility] [address] [place] [address] USACreatinine Clr Calc Cwnsqiql02.83NoSelect Specialty Hospital - Winston-Salem Physician GroupComment on above:Performed By: #### BMP, MG, CBC #### [facility] [address] [place] [address] USAGFR/1.73 sq M.predicted MDRD (S/P/Bld) [Vol rate/Area] mL/min/{1.73_m2}NormalThe Cone Health Physician GroupComment on above:Performed By: #### BMP, MG, CBC #### [facility] [address] [place] [address] USAGlobulin (S) [Mass/Vol]1.9 g/dLNoSelect Specialty Hospital - Winston[facility]Salem Physician GroupComment on above:Performed By: #### BMP, MG, CBC #### [place] [address] USAGlucose [Mass/Vol]106 mg/yWArzo82-733Pfo [facility] Physician GroupComment on above:Result Comment: Random Glucose Reference Range is dependent on time and content of last meal. Glucose of more than 200 mg/dL in a nonstressed, ambulatory subject supports the diagnosis of Diabetes Mellitus. ADA recommended reference rangePerformed By: #### BMP, MG, CBC #### [place] [address] USAPotassium [Moles/Vol]3.9 mmol/LNormal3.5-5.1The [facility] Physician GroupComment on above:Performed By: #### BMP, MG, CBC #### [place] [address] USAProtein [Mass/Vol]4.9 g/dLLow6.4-8.9The [facility] Physician GroupComment on above:Performed By: #### BMP, MG, CBC #### [place] [address] USASodium [Moles/Vol]139 mmol/QMjuklo492-693Ugp [facility] Hospital Of SewickleyComment on above:Performed By: #### BMP, MG, CBC #### [facility] [address] [place] [id number] USAUrea nitrogen [Mass/Vol]12 mg/dLNormal7-25The [facility] Physician GroupComment on above:Performed By: #### BMP, MG, CBC #### [facility] [address] [place] [id number] USACopperon 87-11-2941Fhgpwn39 ug/sZExfqav10-236TysNeshoba County General HospitalComment on above:Result Comment: This test was developed and its performance characteristics determined by [employer]. It has not been cleared or approved by the Food and Drug Administration. Detection Limit = 5 Performed at: [facility] [place] [id number] Flame Degreaser: Yadira Gallegos MD, Phone: [phone] By: #### PTT, FIB- C, PT #### [facility] [address] [place] [id number] USACopper measurementOrdered By: Angelo Iglesias on 10-11-2024 Basophil percentageBasophil trnxihscqd56-306TfgkgmouyMiddletown Hospital Comment on above:This test was developed and its performance characteristicsdetermined by [employer]. It has not been cleared orapproved by the Food and Drug Administration. Detection Limit = 5Performed at: [address] [id number] Director: Yadira Gallegos MD, Phone: [phone] impression [Interpretation] in Specimen NarrativeOrdered By: Loyda Carlos on 69-09-4287Zjlcijehmi impression Molgen Yovany (Unsp spec) [Interp]Diagnostic impression [Interpretation] in Specimen Narrative .Middletown HospitalComment on above:NO RESULT Cytogenetic analysis of GTG banded metaphases fromunstimulated cultures revealed no mitotic activity. Thesample submitted appeared to be blood. Generally, 5% blastsin the peripheral circulation are necessary to obtaincytogenetic results. Bone marrow is recommended for theanalysis of disorders with blasts below that percentage. Interphase FISH analysis using indication specifictargeted probes or a whole genome SNP microarray (test [id number]) may be considered. [employer] [place]@Myeloid multi-genegenomic next generation sequencing panel (test code 439401)may also be considered. Testing can be performed on aresidual sample, if available.Erythrocyte Sedimentation Rateon 18-16-1042LKT (Bld) [Velocity]14 mm/hNormal0-19The [facility] Health Physician GroupComment on above:Result Comment: PERFORMED BY: [place] [address] PATHOLOGIST DIRECTOR STAFFING ALEX SALMERON M.D.Performed By: #### PTT, FIB-C, PT #### [place] [address] USAErythrocyte sedimentation rate by Photometric method Ordered By: Loyda Carlos on 64-11-3535HXM Photometric method (Bld) [Velocity] Erythrocyte sedimentation rate by Photometric method0-Middletown HospitalFerritinon 68-32-9803Nkpmoxuy [Mass/Vol]131.0 ng/mLNormal 23.9-336.2The [facility] Physician [facility] CenterComment on above:Order Comment: Comment addPerformed By: #### PTT, FIB-C, PT #### [place] [id number] USAFerritin [Mass/volume] in Serum or PlasmaOrdered By: Loyda Carlos on 65-03-0846Djaqnzhl [Mass/Vol]Ferritin [Mass/volume] in Serum or Wwjfjy77.9-336.2FCleveland Clinic Lutheran HospitalFibrinogenon 10-11-2024 Ogtszzbarg876 mg/tMFuyaqm555-585Ejo [facility] Physician GroupComment on above: Result Comment: A hematocrit value greater than 55% may lead to inaccurate results in coagulation testing. Patients having hematocrit values >55% require a special collection tube for coagulation studies. Please contact the laboratory at [phone] for redraw instructions. PERFORMED BY: [address] [address] PATHOLOGIST DIRECTOR STAFFING ALEX SALMERON M.D.Performed By: #### PTT, FIB-C, PT #### [facility] [address] [place] [address] USAFibrinogen [Mass/volume] in Platelet poor plasma by Coagulation assayOrdered By: Angelo Iglesias on 45-29-3898Tptkfxqtdn Coag (PPP) [Mass/Vol]Fibrinogen [Mass/volume] in Platelet poor plasma by Coagulation assay 200-393Middletown HospitalComment on above:A hematocrit value greater than 55% may lead to inaccurate results in coagulation testing. Patients having hematocrit values >55% require a special collection tube for coagulation studies. Please contact the laboratory at [phone] for redraw instructions. Folate [Mass/volume] in Serum or PlasmaOrdered By: Loyda Carlos on 10-11-2024 Folate [Mass/Vol]Folate [Mass/volume] in Serum or Plasma>5.9Middletown HospitalComment on above:Folate reference range: >5.9 ng/mlThe WHO technical consultation on folate and vitamin o19ufkunrpvaxqp has determined that folate concentrations lessthan 4 ng/ml are considered deficient.Glucose Poct Glucometerson 99-70-5861Gyowqmw [Mass/Vol]200 mg/dLBaptist Medical Center South Physician GroupComment on above:Result Comment: Random Glucose Reference Range is dependent on time and content of last meal. Glucose of more than 200 mg/dL in a nonstressed, ambulatory subject supports the diagnosis of Diabetes Mellitus. PERFORMED BY: [place] [address] PATHOLOGIST DIRECTOR STAFFING ALEX SALMERON M.D.Performed By: #### PTT, FIB-C, PT #### [facility] [address] [place] [address] PCONseabqs8Ird4: Cleaned MeterNoSelect Specialty Hospital - Winston-Salem Physician GroupComment on above:Result Comment: PERFORMED BY: [facility] [address] [place] [address] PATHOLOGIST DIRECTOR STAFFING ALEX SALMERON M.D.Performed By: #### GLULS #### Point of Care testing ,Glucose [Mass/Vol]134 mg/dLNoSelect Specialty Hospital - Winston-Salem Physician GroupComment on above: Result Comment: Random Glucose Reference Range is dependent on time and content of last meal. Glucose of more than 200 mg/dL in a nonstressed, ambulatory subject supports the diagnosis of Diabetes Mellitus.Performed By: #### GLULS #### Point of Care testing ,Glucose [Mass/Vol]147 mg/dLNoSelect Specialty Hospital - Winston-Salem Physician GroupComment on above: Result Comment: Random Glucose Reference Range is dependent on time and content of last meal. Glucose of more than 200 mg/dL in a nonstressed, ambulatory subject supports the diagnosis of Diabetes Mellitus. PERFORMED BY: [place] [address] PATHOLOGIST DIRECTOR STAFFING ALEX SALMERON M.D.Performed By: #### BMP, MG, CBC #### [place] [address] USAHCV Antibody Cascadeon 52-09-8226Gamwxtuxn C Virus AntibodyNon-ReactiveNormalNon ReactiveThe [facility] Hospital Of SewickleyComment on above:Performed By: #### PTT, FIB-C, PT #### [place] [address] USAInterpretation Hepatitis CCommentNormal.The [facility] Physician GroupComment on above:Result Comment: Not infected with HCV unless early or acute infection is suspected (which may be delayed in an immunocompromised individual), or other evidence exists to indicate HCV infection. Performed at: - [facility] [id number] Flame Degreaser: Juan José Butler PhD, Phone: [phone] PERFORMED BY: [place] [address] PATHOLOGIST DIRECTOR STAFFING ALEX SALMERON M.D.Performed By: #### PTT, FIB-C, PT #### [place] [address] USAHIV 1/O/2 Antigen/Antibodyon 12-83-1291UKL Screen 4th GenerationNon-ReactiveNormalNon ReactiveThe [facility] Health Physician GroupComment on above:Result Comment: HIV-1/HIV-2 antibodies and HIV-1 p24 antigen were NOT detected. There is no laboratory evidence of HIV infection. HIV Negative Performed at: [address] [id number] Flame Degreaser: Juan José Butler PhD, Phone: [phone] PERFORMED BY: [place] [address] PATHOLOGIST DIRECTOR STAFFING ALEX SALMERON M.D.Performed By: #### PTT, FIB-C, PT #### [facility] [address] [place] [address] USAHIV antibody and antigen panelOrdered By: Angelo Iglesias on 08-58-1388WWI 1+2 Ab+HIV1 p24 Ag IA QlHIV 1 and HIV-2 antibody assay with HIV-1 p24 antigen detectionNon [facility] The Jewish HospitalComment on above:HIV-1/HIV-2 antibodies and HIV-1 p24 antigen were NOTdetected. There is no laboratory evidence of HIV infection.HIV NegativePerformed at: [address] [id number] Director: Juan José Butler PhD, Phone: [phone] B Core Antibodyon 75-53-5198Tzjkxrkaw B Core AntibodyNegativeNormalNegativeBeraja Medical Institute Physician [facility] Medical CenterComment on above: Performed By: #### PTT, FIB-C, PT #### [facility] [address] [place], [place] [address] USAHepatitis B Core Antibody IgMon 22-06-0189Sexlxezse B Core Antibody IgMNegativeNormalNegativeBeraja Medical Institute Physician GroupComment on above:Result Comment: Performed at: [address] [id number] Flame Degreaser: Juan José Butler PhD, Phone: [phone] By: #### PTT, FIB-C, PT #### [address] [address] USAHepatitis B Surface Antibodyon 48-33-5335Wjowrhuiz B Surface AntibodyNon-ReactiveNormal.The [facility] Physician GroupComment on above:Result Comment: Non Reactive: Not immune to HBV infection. Equivocal: Unable to determine if anti-HBs is present at levels consistent with immunity. Reactive: Anti-HBs concentration detected at greater than 10 mIU/mL. Individual is considered to be immune to infection with HBV.Performed By: #### PTT, FIB-C, PT #### [facility] [address] [place] [address] USAHepatitis B Surface Antigenon 78-10-2449NUvTh Screen NegativeNormalNegativeThe [facility] Physician [facility] Medical CenterComment on above:Result Comment: PERFORMED BY: [place] [address] PATHOLOGIST DIRECTOR STAFFING ALEX SALMERON M.D.Performed By: #### PTT, FIB-C, PT #### [place] [address] USAHepatitis B virus core IgM antibody assayOrdered By: Angelo Iglesias on 62-38-2988Hlherumrv B Core IgM AntibodyNegativeNegativeMiddletown HospitalComment on above:Performed at: [facility] [place] [id number] Director: Juan José Butler PhD, Phone: [phone] B virus core antibody assayOrdered By: Angelo Iglesias on 81-32-0378Vrfaoslpa B Core Total AntibodyNegativeNegativeMiddletown HospitalHepatitis C virus IgG Ab [Presence] in Serum or Plasma by ImmunoassayOrdered By: Angelo Iglesias on 52-25-4810ZUV IgG IA QlHepatitis C virus IgG Ab [Presence] in Serum or Plasma by ImmunoassayNon ReactiveMiddletown HospitalINR in Platelet poor plasma by Coagulation assayOrdered By: Angelo Iglesias on 01-16-6722YTC Coag (PPP) [Relative time]INR in Platelet poor plasma by Coagulation assayMiddletown HospitalComment on above:INR Therapeutic Range A) Pre- [...] level [#] QualitativeOrdered By: Loyda Carlos on 82-84-8947UXKD band level Molgen Ql (Bld/Tiss)ISCN band level [#] Qualitative. Middletown HospitalIron [Mass/volume] in Serum or PlasmaOrdered By: Loyda Carlos on 62-86-8072Elah [Mass/Vol]Iron [Mass/volume] in Serum or Zaxgut52-280PqiqrkgbmMiddletown HospitalIron and TIBC Profileon 10-11-2024% Iron Hdzsluwyjc62.2 %Xqsxyx51-13Ckq [facility] Physician GroupComment on above: Order Comment: Comment addPerformed By: #### PTT, FIB-C, PT #### [facility] [address] [place] [address] USAIron [Mass/Vol]118 ug/oQFhijli65-256Bgh [facility] Physician GroupComment on above:Order Comment: Comment addPerformed By: #### PTT, FIB-C, PT #### [facility] [address] [place] [address] USATotal Iron Binding Qzwuddlz224 ug/vHZoanwx004-167Xnq [facility] Physician GroupComment on above:Order Comment: Comment addPerformed By: #### PTT, FIB-C, PT #### [facility] [address] [place] [address] USATransferrin [Mass/Vol]191 mg/iINku192-235Mwx [facility] Physician GroupComment on above:Order Comment: Comment addPerformed By: #### PTT, FIB-C, PT #### [facility] [address] [place] [id number] USAKaryotype identification (nominal result)Ordered By: Loyda Carlos on 42-63-4343Mepceyglf Nom (Unsp spec)Karyotype identification nominalMiddletown HospitalLD Lactate Dehydrogenaseon 10-11-2024 LDH Lactate Cliatepcxgnee645 U/CHbesgl756-247Stt [facility] Comment on above:Order Comment: Comment addPerformed By: #### PTT, FIB-C, PT #### [address] [address] USALactate dehydrogenase [Enzymatic activity/volume] in Serum or Plasma by Lactate to pyOrdered By: Loyda Carlos on 48-54-6927TOM Lactate to pyruvate reaction [Catalytic activity/Vol]Lactate dehydrogenase [Enzymatic activity/volume] in Serum or Plasma by Lactate to ls585-039WhqzzhgimMiddletown HospitalMagnesiumon 03-26-7162Ssnwuepsq [Mass/Vol]1.7 mg/dLLow1.9-2.7The [facility] Physician GroupComment on above:Result Comment: PERFORMED BY: [place] [id number] PATHOLOGIST DIRECTOR STAFFING ALEX SALMERON M.D.Performed By: #### BMP, MG, CBC #### [place] [id number] USANo Panel InformationOrdered By: Angelo Iglesias on 47-43-1078Vycjdsgjz C InterpretationComment.[facility] Comment on above:Not infected with HCV unless early or acute infection issuspected (which may be delayed in an immunocompromisedindividual), or other evidence exists to indicate HCVinfection.Performed at: CB - [facility] [address] [id number] Director: Juan José Butler PhD, Phone: [phone] Thromboplastin Timeon 10-70-3253kAWI Coag (Bld) [Time]27.9 s Qilunj77.1-36.5The [facility] Physician GroupComment on above:Result Comment: A hematocrit value greater than 55% may lead to inaccurate results in coagulation testing. Patients having hematocrit values >55% require a special collection tube for coagulation studies. Please contact the laboratory at [phone] for redraw instructions.Performed By: #### PTT, FIB-C, PT #### [place] [id number] USAProthrombin Time INRon 43-18-3443KAQ Coag (PPP) [Relative time]0.9 {INR}NormalThe [facility] Physician GroupComment on above:Result Comment: INR Therapeutic [...] 4.5Performed By: #### PTT, FIB-C, PT #### [facility] [address] [place] [address] USAPT Coag (PPP) [Time]9.9 sNormal9.0-12.9The [facility] Physician GroupComment on above:Result Comment: A hematocrit value greater than 55% may lead to inaccurate results in coagulation testing. Patients having hematocrit values >55% require a special collection tube for coagulation studies. Please contact the laboratory at [phone] for redraw instructions.Performed By: #### PTT, FIB-C, PT #### [facility] [address] [place] [address] USAProthrombin time (PT)Ordered By: Angelo Iglesias on 84-13-7839SG Coag (PPP) [Time]Prothrombin time (PT)9.0-12.9M[facility]letown HospitalComment on above:A hematocrit value greater than 55% may lead to inaccurate results in coagulation testing. Patientshaving hematocrit values >55% require a special collection tube for coagulation studies. Please contact the laboratory at [phone] for redraw instructions.Reticulocyte Counton 05-17-5588Vrugifsbjihx Number0.035 10*6/uLNormal0.024-0.084The [facility] Health Physician GroupComment on above:Performed By: #### PTT, FIB-C, PT #### [facility] [address] [place] [address] USAReticulocyte Percent0.9 %Normal0.5-1.5The [facility] Health Physician GroupComment on above:Performed By: #### PTT, FIB-C, PT #### [facility] [address] [place] [address] USAReticulocytes [#/volume] in BloodOrdered By: Loyda Carlos on 13-31-6434Kqpklrsyrgajb (Bld) [#/Vol]Absolute reticulocyte count0.024-0.084 [facility] HospitalReticulocytes/100 RBC Auto (Bld)Ordered By: Loyda Carlos on 76-59-5238Krjylkrbhfeyj/100 RBC (Bld)Reticulocyte % auto0.5-1.5 [facility] Jewish Hospitalerum hepatitis B virus surface antibody detectionOrdered By: Angelo Iglesias on 73-54-4641DID surface Ab Ql (S)Hepatitis B virus surface Ab [Presence] in Serum.[facility]letown HospitalComment on above:Non Reactive: Not immune to [...] in Serum or Plasma by ImmunoassayNegativeMercy Health – The Jewish Hospitalerum or plasma iron binding capacity measurement (mass/volume)Ordered By: Loyda Carlos on 10-11-2024 Iron binding capacity [Mass/Vol]Iron binding capacity [Mass/volume] in Serum or Yoxnka557-997YswzeukgqMercy Health – The Jewish Hospitalerum or plasma iron saturation measurement (mass fraction)Ordered By: Loyda Carlos on 94-48-3739Smdm saturation [Mass fraction]Iron saturation [Mass Fraction] in Serum or Ftsthx33-88OofwrvmncMercy Health – The Jewish Hospitalpecimen source identifiedOrdered By: Loyda Carlos on 43-47-9125Jnrvupwz source Nom (Unsp spec)Specimen source identified.[facility]letown HospitalComment on above:BLOODThyroid Stimulating Hormoneon 65-54-2661TTW Qn1.83 m[IU]/LNormal0.45-5.33The [facility] Health Physician GroupComment on above:Order Comment: Comment addResult Comment: PERFORMED BY: [place] [address] PATHOLOGIST DIRECTOR STAFFING ALEX SALMERON M.D.Performed By: #### PTT, FIB-C, PT #### [facility] [address] [place], [place] [id number] USAThyrotropin [Units/volume] in Serum or PlasmaOrdered By: Loyda Carlos on 02-88-3860VHY QnThyrotropin [Units/volume] in Serum or Plasma 0.45-5.33M[facility]own HospitalTransferrin [Mass/volume] in Serum or PlasmaOrdered By: Loyda Carlos on 56-05-3784Qkixculvcti [Mass/Vol]Transferrin [Mass/volume] in Serum or QbkclzItq412-091WzzcaebtzMiddletown HospitalVit. B12/Folate Profileon 78-80-7552Tjxlxyeuc (Vitamin B12) [Mass/Vol]542 pg/mLNormal 180-914The [facility] Health Physician GroupComment on above:Order Comment: Comment add Performed By: #### PTT, FIB-C, PT #### [facility] [address] [place], [place] [address] JTDXdtede44.0 ng/mLNormal>5.9The [facility] Comment on above:Order Comment: Comment addResult Comment: Folate reference range: >5.9 ng/ml The WHO technical consultation on folate and vitamin b12 deficiencies has determined that folate concentrations less than 4 ng/ml are considered deficient.Performed By: #### PTT, FIB-C, PT #### [facility] [address] [place], [place] [address] USAVitamin B12 ser/plasOrdered By: Loyda Carlos on 10-11-2024 Cobalamin (Vitamin B12) [Mass/Vol]Vitamin B12 ser/ujqf106-661OytwuzwcwMiddletown HospitalaPTT in Platelet poor plasma by Coagulation assayOrdered By: Angelo Iglesias on 13-69-0856bSFO Coag (PPP) [Time]Activated partial thromboplastin time (aPTT) in platelet poor plasma by coagulation a25.1-36.5FCleveland Clinic Lutheran HospitalComment on above:A hematocrit value greater than 55% may lead to inaccurate results in coagulation testing. Patientshaving hematocrit values >55% require a special collection tube for coagulation studies. Please contact the laboratory at [phone] for redraw instructions.Anisocytosis LM Ql (Bld) Ordered By: Loyda Carlos on 68-32-6770Vacjvdyehdie Ql (Bld)Anisocytosis [Presence] in Blood by Light microscopyMiddletown HospitalCampy coli+jejuni BD MaxOrdered By: Lakesha Haskins on 10-10-2024. coli+jejuni tuf gene ABE+probe Ql (Stl)Campy coli+jejuni BD MaxNegativeMiddletown HospitalComment on above:Campylobacter test includes C. jejuni and C. coli. Chloride [Moles/volume] in StoolOrdered By: Loyda Carlos on 86-43-4939Clgwtqya (Stl) [Moles/Vol]Chloride [Moles/volume] in Stool.M[facility]letown HospitalComment on above:INTERPRETIVE INFORMATION: Fecal ChlorideA reference interval has not been established for fecal specimens.This test was developed and its performance characteristicsdetermined by [facility]. It has not been cleared orapproved by the US Food and Drug Administration. This test wasperformed in a CLIA certified laboratory and is intended forclinical purposes.Performed at: [facility] [address] [id number] Director: [facility], Phone: [phone] Comprehensive Metabolic Panelon 02-15-1062Exerdyz [Mass/Vol]2.9 g/dLLow3.5-5.7 The [facility] Health Physician GroupComment on above:Performed By: #### GLULS #### Point of Care testing ,Albumin/Globulin [Mass ratio]1.5 {ratio}NormalThe [facility] Group Comment on above:Performed By: #### GLULS #### Point of Care testing ,ALP [Catalytic activity/Vol]48 U/RNiwsgo81-657Jld [facility] Comment on above:Performed By: #### GLULS #### Point of Care testing ,ALT [Catalytic activity/Vol]26 U/LNormal7-52The [facility] Comment on above:Performed By: #### GLULS #### Point of Care testing ,Anion gap [Moles/Vol]7.2 mmol/LNormal6.0-15.0[facility] Comment on above:Performed By: #### GLULS #### Point of Care testing ,AST [Catalytic activity/Vol]52 U/LEkuk37-03Ehh [facility] GroupComment on above:Performed By: #### GLULS #### Point of Care testing ,Bilirubin [Mass/Vol]0.2 mg/dLLow0.3-1.0The [facility] Physician GroupComment on above:Performed By: #### GLULS #### Point of Care testing ,Calcium [Mass/Vol]7.4 mg/dLLow8.6-10.3The [facility] Health Physician GroupComment on above:Performed By: #### GLULS #### Point of Care testing ,Chloride [Moles/Vol]115 mmol/TFsgi05-605Whb [facility] Physician GroupComment on above:Performed By: #### GLULS #### Point of Care testing ,CO2 [Moles/Vol]19.4 mmol/LLow21.0-31.0The [facility] Health Physician GroupComment on above:Performed By: #### GLULS #### Point of Care testing ,Creatinine [Mass/Vol]1.33 mg/dLSignificant change up0.70-1.30The [facility] Physician GroupComment on above:Performed By: #### GLULS #### Point of Care testing ,Creatinine Clr Calc Hlovabwf02.57NoUniversity Hospitals Cleveland Medical Center GroupComment on above:Performed By: #### GLULS #### Point of Care testing ,Estimated GFR52.056 mL/MinNoUniversity Hospitals Cleveland Medical Center GroupComment on above: Performed By: #### GLULS #### Point of Care testing ,Globulin (S) [Mass/Vol]1.9 g/dLNoUniversity Hospitals Cleveland Medical Center GroupComment on above:Performed By: #### GLULS #### Point of Care testing ,Glucose [Mass/Vol]105 mg/uPHxoe15-612Sbv [facility] Physician GroupComment on above:Result Comment: Random Glucose Reference Range is dependent on time and content of last meal. Glucose of more than 200 mg/dL in a nonstressed, ambulatory subject supports the diagnosis of Diabetes Mellitus. ADA recommended reference rangePerformed By: #### GLULS #### Point of Care testing ,Potassium [Moles/Vol]3.6 mmol/LNormal3.5-5.1The [facility] Comment on above:Performed By: #### GLULS #### Point of Care testing ,Protein [Mass/Vol]4.8 g/dLLow6.4-8.9The [facility] Physician GroupComment on above:Performed By: #### GLULS #### Point of Care testing ,Sodium [Moles/Vol]138 mmol/MQqkkui109-750Xbk [facility]ician [facility] CenterComment on above:Performed By: #### GLULS #### Point of Care testing ,Urea nitrogen [Mass/Vol]21 mg/dLNormal7-25The [facility] Physician GroupComment on above:Performed By: #### GLULS #### Point of Care testing ,Cryptosporidium Antigen Stoolon 40-22-3510Rpfnhxntwpnhtdk Antigen StoolNegative NormalNegativeThe [facility] Rehabilitation Hospital Of SewickleyComment on above:Order Comment: SOURCE OF SPECIMEN: StoolResult Comment: Performed at: [address] [id number] Flame Degreaser: Juan José Butler PhD, Phone: [phone] By: #### BMP, MG, CBC #### [place] [address] USACryptosporidium parv+homin BD MaxOrdered By: Loyda Carlos on 10-10-2024. parvum+hominis DNA ABE+probe Ql (Stl)Cryptosporidium parv+homin BD MaxNegativeMiddletown HospitalComment on above:Cryptosporidium test includes C. hominis and C. parvum.Cryptosporidium sp Ag [Presence] in Stool by ImmunoassayOrdered By: Loyda Carlos on 41-88-2779Fcmgjbkyognnsfv sp Ag IA Ql (Stl)Cryptosporidium sp Ag [Presence] in Stool by ImmunoassayNegativeMiddletown HospitalComment on above:Performed at: [facility] [employer] [address] [place], [place] [id number] Director: Juan José Butler PhD, Phone: [phone] histolytica BD MaxOrdered By: Loyda Carlos on 10-10-2024E. histolytica DNA ABE+probe Ql (Stl)Entamoeba histolytica BD MaxNegBerger HospitalComment on above:Testing performed by RT-PCRErythrocyte morphology finding [Identifier] in BloodOrdered By: Loyda Carlos on 10-10-2024 RBC morphology finding Nom (Bld)RBC morphologyMiddletown Hospital Giardia Lamblia Ag EIA Stoolon 79-53-7393Gkrviqr Lamblia Ag EIA StoolNegative NormalNegativeBeraja Medical Institute Physician GroupComment on above:Order Comment: SOURCE OF SPECIMEN: StoolResult Comment: Performed at: [id number] [place], [place] [id number] Flame Degreaser: Juan José Butler PhD, Phone: [phone] PERFORMED BY: [place] [address] PATHOLOGIST DIRECTOR STAFFING ALEX SALMERON M.D.Performed By: #### BMP, MG, CBC #### [place] [address] USAGiardia milian BD MaxOrdered By: Loyda Carlos on 10-10-2024G. lamblia DNA ABE+probe Ql (Stl)Giardia milian BD MaxNegBerger HospitalGiardia lamblia Ag [Presence] in Stool by ImmunoassayOrdered By: Loyda Carlos on 10-10-2024G. lamblia Ag IA Ql (Stl)Giardia lamblia Ag [Presence] in Stool by ImmunoassayNegBerger HospitalComment on above:Performed at: [address] [id number] Director: Juan José Butler PhD, Phone: [phone] Poct Glucometerson 58-04-6990Rbrxill [Mass/Vol]134 mg/dLNormHCA Florida Lake Monroe Hospital Physician GroupComment on above:Result Comment: Random Glucose Reference Range is dependent on time and content of last meal. Glucose of more than 200 mg/dL in a nonstressed, ambulatory subject supports the diagnosis of Diabetes Mellitus. PERFORMED BY: [place] [address] PATHOLOGIST DIRECTOR STAFFING ALEX SALMERON M.D.Performed By: #### BMP, MG, CBC #### [place] [address] HNLThgvaph3Sgi3: Cleaned MeterNoSelect Specialty Hospital - Winston-Salem Physician GroupComment on above:Result Comment: PERFORMED BY: [place] [address] PATHOLOGIST DIRECTOR STAFFING ALEX SALMERON M.D.Performed By: #### GLULS #### Point of Care testing ,Glucose [Mass/Vol]138 mg/dLBaptist Medical Center South Physician GroupComment on above: Result Comment: Random Glucose Reference Range is dependent on time and content of last meal. Glucose of more than 200 mg/dL in a nonstressed, ambulatory subject supports the diagnosis of Diabetes Mellitus.Performed By: #### GLULS #### Point of Care testing ,Ujlcmgw7Csl9: Cleaned MeterNoSelect Specialty Hospital - Winston-Salem Physician GroupComment on above: Result Comment: PERFORMED BY: [place] [address] PATHOLOGIST DIRECTOR STAFFING ALEX SALMERON M.D.Performed By: #### GLULS #### Point of Care testing ,Glucose [Mass/Vol]146 mg/dLBaptist Medical Center South Physician GroupComment on above: Result Comment: Random Glucose Reference Range is dependent on time and content of last meal. Glucose of more than 200 mg/dL in a nonstressed, ambulatory subject supports the diagnosis of Diabetes Mellitus.Performed By: #### GLULS #### Point of Care testing ,Glucose [Mass/Vol]99 mg/dLBaptist Medical Center South Physician GroupComment on above: Result Comment: Random Glucose Reference Range is dependent on time and content of last meal. Glucose of more than 200 mg/dL in a nonstressed, ambulatory subject supports the diagnosis of Diabetes Mellitus. PERFORMED BY: [place] [address] PATHOLOGIST DIRECTOR STAFFING ALEX SALMERON M.D.Performed By: #### GLULS #### Point of Care testing ,Iron and TIBC Profileon 10-10-2024% Iron Xqkfrzcyqb24.1 %Pju62-30Ckt [facility] Physician GroupComment on above:Performed By: #### GLULS #### Point of Care testing ,Iron [Mass/Vol]29 ug/eEWeq38-783Hgo [facility]ician [facility] Medical CenterComment on above: Performed By: #### GLULS #### Point of Care testing ,Total Iron Binding Jkdmfrgt214 ug/kHKjv245-482Udw [facility] Comment on above:Performed By: #### GLULS #### Point of Care testing ,Transferrin [Mass/Vol]147 mg/rPEej946-419Cfj [facility] Physician GroupComment on above:Performed By: #### GLULS #### Point of Care testing ,Magnesiumon 32-52-4787Psnlcazsw [Mass/Vol]1.8 mg/dLLow1.9-2.7The [facility] Physician GroupComment on above:Result Comment: PERFORMED BY: [place] [address] PATHOLOGIST DIRECTOR STAFFING ALEX SALMERON M.D.Performed By: #### GLULS #### Point of Care testing ,Ova and Parasite Panelon 50-93-5013Pplpiibusjmufoh (C.hominis+parNegativeNormal NegativeThe [facility] Physician GroupComment on above:Result Comment: Cryptosporidium test includes C. hominis and C. parvum.Performed By: #### BMP, MG, CBC #### [place] [address] USAEntamoeba histolyticaNegativeNormalNegativeThe [facility] Physician GroupComment on above:Result Comment: Testing performed by RT-PCR PERFORMED BY: [place] [address] PATHOLOGIST DIRECTOR STAFFING ALEX SALMERON M.D.Performed By: #### BMP, MG, CBC #### [facility] [address] [place] [id number] USAGiardia lambliaNegativeNormalNegativeThe [facility] Physician GroupComment on above:Performed By: #### BMP, MG, CBC #### [facility] [address] [place] [address] USAOvalocytes [Presence] in Blood by Light microscopyOrdered By: Loyda Carlos on 80-38-7399Polafwsccv LM Ql (Bld)Ovalocyte detectionMiddletown HospitalPhosphoruson 35-70-2652Npdkkgupw [Mass/Vol]2.4 mg/dLLow 2.5-4.5The [facility] Physician GroupComment on above:Performed By: #### GLULS #### Point of Care testing ,Platelet adequacy [Presence] in Blood by Light microscopyOrdered By: Loyda Carlos on 86-48-2019Sskkwmxol LM Ql (Bld)Platelet adequacy [Presence] in Blood by Light microscopyNormalMiddletown HospitalPlatelet morphology finding [Identifier] in BloodOrdered By: Loyda Carlos on 76-77-4762Uldncidz morphology finding Nom (Bld)Platelet morphology finding [Identifier] in Blood NormalMiddletown HospitalPoikilocytosis [Presence] in Blood by Light microscopyOrdered By: Loyda Carlos on 97-38-4483Ousquuqtjcwxdr LM Ql (Bld) Poikilocytosis [Presence] in Blood by Light microscopyMiddletown HospitalPotassium [Moles/volume] in StoolOrdered By: Loyda Carlos on 10-10-2024 Potassium (Stl) [Moles/Vol]Potassium [Moles/volume] in Stool.M[facility]letown HospitalComment on above:INTERPRETIVE INFORMATION: Fecal PotassiumA reference interval has not been established for fecal specimens.This test was developed and its performance characteristicsdetermined by [facility]. It has not been cleared orapproved by the [place] Food and Drug Administration. This test wasperformed olga CLIA certified laboratory and is intended forclinical purposes.Salmonellosis BD MaxOrdered By: Lakesha Haskins on 07-10-7406Jgltatbcjb sp spaO gene ABE+probe Ql (Stl)Salmonella sp spaO gene [Presence] in Stool by ABE with probe detectionNegativeMiddletown HospitalComment on above: Testing performed by RT-PCRScan and CBCon 24-64-6377Ueujkzuvyujp Ql (Bld)Slight NormalThe [facility] Physician GroupComment on above:Performed By: #### GLULS #### Point of Care testing ,Basophils (Bld) [#/Vol]0.0 10*3/uLNormal0.0-0.2The [facility] Comment on above:Performed By: #### GLULS #### Point of Care testing ,Basophils/100 WBC (Bld)0.6 %Normal.The [facility] Physician GroupComment on above:Performed By: #### GLULS #### Point of Care testing ,Eosinophils (Bld) [#/Vol]0.0 10*3/uLNormal0.0-0.45The [facility] Comment on above:Performed By: #### GLULS #### Point of Care testing ,Eosinophils/100 WBC (Bld)0.5 %Normal.The [facility] Physician GroupComment on above:Performed By: #### GLULS #### Point of Care testing ,Erythrocyte distribution width (RBC) [Ratio]13.7 %Wxldtd57.0-14.8The [facility] Physician GroupComment on above:Performed By: #### GLULS #### Point of Care testing ,Hematocrit (Bld) [Volume fraction]32.9 %Low38.8-50.0The [facility] Physician GroupComment on above:Performed By: #### GLULS #### Point of Care testing ,Hemoglobin (Bld) [Mass/Vol]11.4 g/dLLow13.0-17.0The [facility] Comment on above:Performed By: #### GLULS #### Point of Care testing ,Lymphocytes (Bld) [#/Vol]0.5 10*3/uLLow1.00-4.8The [facility] Comment on above:Performed By: #### GLULS #### Point of Care testing ,Lymphocytes/100 WBC (Bld)11.5 %Normal.The [facility] Physician GroupComment on above:Performed By: #### GLULS #### Point of Care testing ,MCH (RBC) [Entitic mass]34.0 jhYzachz44.5-35.2The [facility] Comment on above:Performed By: #### GLULS #### Point of Care testing ,MCV (RBC) [Entitic vol]97.8 pYVdftwz95.5-101The [facility] Comment on above:Performed By: #### GLULS #### Point of Care testing ,Mean Corpuscular HGB Conc34.8 g/lKTqkrkf99.5-35.6The [facility] Comment on above:Performed By: #### GLULS #### Point of Care testing ,Monocytes (Bld) [#/Vol]0.8 10*3/uLNormal0.0-0.8The [facility] Comment on above:Performed By: #### GLULS #### Point of Care testing ,Monocytes/100 WBC (Bld)18.2 %Normal.The [facility] Physician GroupComment on above:Performed By: #### GLULS #### Point of Care testing ,Neutrophils (Bld) [#/Vol]3.2 10*3/uLNormal1.8-7.7The [facility] Comment on above:Performed By: #### GLULS #### Point of Care testing ,Neutrophils/100 WBC (Bld)69.2 %Normal.The [facility] Physician GroupComment on above:Performed By: #### GLULS #### Point of Care testing ,NRBC%0.1 /100{WBC}Normal0-0.5The [facility] Physician GroupComment on above: Performed By: #### GLULS #### Point of Care testing ,OvalocytesSlightNormHCA Florida Lake Monroe Hospital Physician GroupComment on above:Performed By: #### GLULS #### Point of Care testing ,Platelet EstimateDecreasedNormalNormHCA Florida Lake [facility] Hospital Physician GroupComment on above:Performed By: #### GLULS #### Point of Care testing ,Platelet mean volume (Bld) [Entitic vol]8.3 fLNormal6.6-10.1The [facility] Physician GroupComment on above:Performed By: #### GLULS #### Point of Care testing ,Platelet MorphologyNormalNormalBaptist Medical Center South Physician GroupComment on above:Result Comment: PERFORMED BY: [facility] [place] [address] PATHOLOGIST DIRECTOR STAFFING ALEX SALMERON M.D.Performed By: #### GLULS #### Point of Care testing ,Platelets (Bld) [#/Vol]71 10*3/uLSignificant change lrlr654-196Ieo [facility] Physician GroupComment on above:Performed By: #### GLULS #### Point of Care testing ,PoikilocytosisSlightBaptist Medical Center South Physician GroupComment on above: Performed By: #### GLULS #### Point of Care testing ,RBC (Bld) [#/Vol]3.37 10*6/uLLow3.90-5.60The [facility] Physician GroupComment on above:Performed By: #### GLULS #### Point of Care testing ,Toxic VacuolationSlightBaptist Medical Center South Physician GroupComment on above: Performed By: #### GLULS #### Point of Care testing ,WBC (Bld) [#/Vol]4.6 10*3/uLNormal4.1-10.5The [facility] Physician GroupComment on above:Performed By: #### GLULS #### Point of Care testing ,Shigella Tox 1+2 BD MaxOrdered By: Lakesha Haskins on 10-10-2024E. coli stx1+stx2 genes ABE+probe Ql (Stl)Escherichia coli Stx1 and Stx2 toxin stx1+stx2 genes [Presence] in Stool by ABE withNegativeMiddletown Hospital Shigellosis BD MaxOrdered By: Lakesha Haskins on 60-61-5724Tfqjjaxf species+EIEC invasion plasmid antigen H ipaH gene ABE+probe Ql (Stl)Shigella species+EIEC invasion plasmid antigen H ipaH gene [Presence] in Stool by NAANegativeMiddletown HospitalComment on above:Shigella sp. test includes Shigella species and Enteroinvasive E. coli (EIEC).Sodium [Moles/volume] in StoolOrdered By: Loyda Carlos on 92-49-2789Zaeijk (Stl) [Moles/Vol]Sodium [Moles/volume] in Stool.Middletown HospitalComment on above:INTERPRETIVE INFORMATION: Fecal SodiumA reference interval has not been established for fecal specimens.This test was developed and its performance characteristicsdetermined by [facility]. It has not been cleared orapproved by the [place] Food and Drug Administration. This test wasperformed in a CLIA certified laboratory and is intended forclinical purposes.Stool Bacterial Panelon 78-98-5681Ignybaonvgzio NegativeNormalNegativeThe [facility] Physician GroupComment on above:Result Comment: Campylobacter test includes C. jejuni and C. coli.Performed By: #### GLULS #### Point of Care testing ,Salmonella SpeciesNegativeNormalNegativeThe [facility] Physician GroupComment on above:Result Comment: Testing performed by RT-PCR PERFORMED BY: [facility] [address] [place] [address] PATHOLOGIST DIRECTOR STAFFING ALEX SALMERON M.D.Performed By: #### GLULS #### Point of Care testing ,Shiga Toxin (E coli O157+oth)NegativeNormalNegativeBeraja Medical Institute Physician GroupComment on above:Performed By: #### GLULS #### Point of Care testing ,Shigella SpeciesNegativeNormalNegativeThe [facility] Physician GroupComment on above:Result Comment: Shigella sp. test includes Shigella species and Enteroinvasive E. coli (EIEC).Performed By: #### GLULS #### Point of Care testing ,Stool Electrolyteson 18-93-1827Sgqspk Stool<20Normal.The [facility] Physician GroupComment on above:Result Comment: INTERPRETIVE INFORMATION: Fecal Sodium A reference interval has not been established for fecal specimens. This test was developed and its performance characteristics determined by [facility]. It has not been cleared or approved by the [place] Food and Drug Administration. This test was performed in a CLIA certified laboratory and is intended for clinical purposes.Performed By: #### BMP, MG, CBC #### [facility] [address] [place] [id number] USAStool Chloride<20Normal.The [facility] Comment on above:Result Comment: INTERPRETIVE INFORMATION: Fecal Chloride A reference interval has not been established for fecal specimens. This test was developed and its performance characteristics determined by [facility]. It has not been cleared or approved by the [place] Food and Drug Administration. This test was performed in a CLIA certified laboratory and is intended for clinical purposes. Performed at: [facility] [employer] [facility] [address] [id number] Flame Degreaser: [facility], Phone: [phone] By: #### [place] MG, CBC #### [place] [address] USAStool Lxcufsscw27 mmol/LNormal.The [facility] Physician GroupComment on above:Result Comment: INTERPRETIVE INFORMATION: Fecal Potassium A reference interval has not been established for fecal specimens. This test was developed and its performance characteristics determined by [facility]. It has not been cleared or approved by the US Food and Drug Administration. This test was performed in a CLIA certified laboratory and is intended for clinical purposes. PERFORMED BY: [place] [address] PATHOLOGIST DIRECTOR STAFFING ALEX SALMERON M.D.Performed By: #### BMP MG, CBC #### [place] [id number] USAThyroid Stimulating Hormoneon 53-42-4293WKR Qn1.35 m[IU]/L Normal0.45-5.33The [facility] Physician GroupComment on above:Result Comment: PERFORMED BY: [place] [address] PATHOLOGIST DIRECTOR STAFFING ALEX SALMERON M.D.Performed By: #### GLULS #### Point of Care testing ,Toxic leukocyte vacuolation detectionOrdered By: Loyda Carlos on 10-10-2024 Leukocyte toxic vacuoles LM Ql (Bld)Toxic leukocyte vacuolation detection [facility]own HospitalVit. B12/Folate Profileon 10-61-3040Xakgxllqf (Vitamin B12) [Mass/Vol]472 pg/pUJsjjsn481-463Hvc [facility] Comment on above:Performed By: #### GLULS #### Point of Care testing ,Vhkwth02.7 ng/mLNormal>5.9The [facility] Physician GroupComment on above:Result Comment: Folate reference range: >5.9 ng/ml The WHO technical consultation on folate and vitamin b12 deficiencies has determined that folate concentrations less than 4 ng/ml are considered deficient.Performed By: #### GLULS #### Point of Care testing ,A1C with Estimated Average Gluon 39-22-9110Hngerbj [Mass/Vol]160 mg/dLNormalThe [facility] Physician GroupComment on above:Result Comment: PERFORMED BY: [place] [address] PATHOLOGIST DIRECTOR STAFFING ALEX SALMERON M.D.Performed By: #### GLULS #### Point of Care testing ,HbA1c (Bld) [Mass fraction]7.2 %High4.3-5.6The [facility] Physician GroupComment on above:Result Comment: Increased risk for diabetes: 5.7 - 6.4 diabetes: >6.4 glycemic control for adults with diabetes: <7.0Performed By: #### GLULS #### Point of Care testing ,Blood estimated average glucose determination by estimation from glycated hemoglobinOrdered By: Lakesha Haskins on 37-69-7833Rvcvddw glucose Estimated from glycated hemoglobin (Bld) [Mass/Vol]Glucose mean value [Mass/volume] in Blood Estimated from glycated hemoglobinMiddletown HospitalCT abdomen pelvis wo conon 45-75-0642OM abdomen pelvis wo [facility] [place] [address] CT Scan Report Signed Patient: Jose L Ames MR#: [id number] : 1940 Acct:[id number] Age/Sex: 84 / M ADM Date: 10/09/24 Loc: Room: [address] [place] [address] Type: ADM IN Attending Dr: Loyda Carlos [...] Pascual Harris M.D.10/09/2024 4:57 PM Dictation Location: [place] [address] Transcribed By: [facility] 10/09/24 1657 Dictated By: Pascual Harris DO 10/09/24 1645 Signed By: 10/09/24 [facility] Physician GroupClostridioides difficile toxin B tcdB gene [Presence] in Stool by ABE with probe deteOrdered By: Lakesha Haskins on 10-09-2024. difficile toxin B tcdB gene ABE+probe Ql (Stl)Clostridioides difficile toxin B tcdB gene [Presence] in Stool by ABE with probe deteNegative [facility]own HospitalComment on above:Testing performed by RT-PCR Clostridium Difficileon 44-86-1595Xjhcszgpvbo DifficileNegativeNormalNegativeThe [facility] Physician GroupComment on above:Order Comment: > or = to 3 loose/watery stools in the last 24 HRS? Y Is patient on promotility agents or tube feeding? NResult Comment: Testing performed by RT-PCR PERFORMED BY: [address] [place] [address] PATHOLOGIST DIRECTOR STAFFING ALEX SALMERON M.D.Performed By: #### GLULS #### Point of Care testing ,Complete Blood Count Auto Diffon 64-06-4174Vgocdolcv (Bld) [#/Vol]0.0 10*3/uL Normal0.0-0.2The [facility] Hospital Of SewickleyComment on above:Result Comment: PERFORMED BY: [address] [place] [address] PATHOLOGIST DIRECTOR STAFFING ALEX SALMERON M.D.Performed By: #### GLULS #### Point of Care testing ,Basophils/100 WBC (Bld)0.4 %Normal.The [facility] Physician GroupComment on above:Performed By: #### GLULS #### Point of Care testing ,Eosinophils (Bld) [#/Vol]0.1 10*3/uLNormal0.0-0.45The [facility] Comment on above:Performed By: #### GLULS #### Point of Care testing ,Eosinophils/100 WBC (Bld)1.3 %Normal.The [facility] Physician GroupComment on above:Performed By: #### GLULS #### Point of Care testing ,Erythrocyte distribution width (RBC) [Ratio]13.9 %Niojbu28.0-14.8The [facility] Physician GroupComment on above:Performed By: #### GLULS #### Point of Care testing ,Hematocrit (Bld) [Volume fraction]36.0 %Low38.8-50.0The [facility] Physician GroupComment on above:Performed By: #### GLULS #### Point of Care testing ,Hemoglobin (Bld) [Mass/Vol]12.5 g/dLLow13.0-17.0The [facility] Comment on above:Performed By: #### GLULS #### Point of Care testing ,Lymphocytes (Bld) [#/Vol]0.4 10*3/uLLow1.00-4.8The [facility] Comment on above:Performed By: #### GLULS #### Point of Care testing ,Lymphocytes/100 WBC (Bld)3.5 %Normal.The [facility] Physician GroupComment on above:Performed By: #### GLULS #### Point of Care testing ,MCH (RBC) [Entitic mass]33.9 liFoivkc87.5-35.2The [facility] Comment on above:Performed By: #### GLULS #### Point of Care testing ,MCV (RBC) [Entitic vol]97.8 nRTabwmq70.5-101The [facility] Comment on above:Performed By: #### GLULS #### Point of Care testing ,Mean Corpuscular HGB Conc34.7 g/pMFptudh62.5-35.6The [facility] Comment on above:Performed By: #### GLULS #### Point of Care testing ,Monocytes (Bld) [#/Vol]1.0 10*3/uLHigh0.0-0.8The [facility] Comment on above:Performed By: #### GLULS #### Point of Care testing ,Monocytes/100 WBC (Bld)8.9 %Normal.The [facility] Physician GroupComment on above:Performed By: #### GLULS #### Point of Care testing ,Neutrophils (Bld) [#/Vol]9.8 10*3/uLHigh1.8-7.7The [facility] Comment on above:Performed By: #### GLULS #### Point of Care testing ,Neutrophils/100 WBC (Bld)85.9 %Normal.The [facility] Physician GroupComment on above:Performed By: #### GLULS #### Point of Care testing ,NRBC%0.1 /100{WBC}Normal0-0.5The [facility] Physician GroupComment on above: Performed By: #### GLULS #### Point of Care testing ,Platelet mean volume (Bld) [Entitic vol]9.3 fLNormal6.6-10.1The [facility]ician GroupComment on above:Performed By: #### GLULS #### Point of Care testing ,Platelets (Bld) [#/Vol]102 10*3/eJEwd067-071Jtx [facility] Comment on above:Performed By: #### GLULS #### Point of Care testing ,RBC (Bld) [#/Vol]3.69 10*6/uLLow3.90-5.60The [facility]ician GroupComment on above:Performed By: #### GLULS #### Point of Care testing ,WBC (Bld) [#/Vol]11.4 10*3/uLHigh4.1-10.5The [facility]ician GroupComment on above:Performed By: #### GLULS #### Point of Care testing ,Comprehensive Metabolic Panelon 45-01-6197Wcikgbb [Mass/Vol]3.3 g/dLLow3.5-5.7 The [facility] Physician GroupComment on above:Performed By: #### GLULS #### Point of Care testing ,Albumin/Globulin [Mass ratio]1.6 {ratio}NormalThe [facility] Comment on above:Performed By: #### GLULS #### Point of Care testing ,ALP [Catalytic activity/Vol]50 U/AYktrjj17-135Iox [facility] Comment on above:Performed By: #### GLULS #### Point of Care testing ,ALT [Catalytic activity/Vol]25 U/LNormal7-52The [facility] Comment on above:Performed By: #### GLULS #### Point of Care testing ,Anion gap [Moles/Vol]12.0 mmol/LNormal6.0-15.0The [facility] Comment on above:Performed By: #### GLULS #### Point of Care testing ,AST [Catalytic activity/Vol]48 U/HVndq19-63Cap [facility]ician GroupComment on above:Performed By: #### GLULS #### Point of Care testing ,Bilirubin [Mass/Vol]0.4 mg/dLNormal0.3-1.0The [facility]ician GroupComment on above:Performed By: #### GLULS #### Point of Care testing ,Calcium [Mass/Vol]7.7 mg/dLLow8.6-10.3The [facility]ician GroupComment on above:Performed By: #### GLULS #### Point of Care testing ,Chloride [Moles/Vol]110 mmol/GTxgp14-912Mgm [facility] GroupComment on above:Performed By: #### GLULS #### Point of Care testing ,CO2 [Moles/Vol]22.5 mmol/MLdbpxi62.0-31.0The [facility] GroupComment on above:Performed By: #### GLULS #### Point of Care testing ,Creatinine [Mass/Vol]2.23 mg/dLHigh0.70-1.30[facility] Comment on above:Performed By: #### GLULS #### Point of Care testing ,Creatinine Clr Calc Wgolzswd05.12[facility] GroupComment on above:Performed By: #### GLULS #### Point of Care testing ,Estimated GFR27.998 mL/MinNoUniversity Hospitals Cleveland Medical Center GroupComment on above: Performed By: #### GLULS #### Point of Care testing ,Globulin (S) [Mass/Vol]2.1 g/dLCalais Regional Hospital GroupComment on above:Performed By: #### GLULS #### Point of Care testing ,Glucose [Mass/Vol]185 mg/kGPity54-654Caq [facility] GroupComment on above:Result Comment: Random Glucose Reference Range is dependent on time and content of last meal. Glucose of more than 200 mg/dL in a nonstressed, ambulatory subject supports the diagnosis of Diabetes Mellitus. ADA recommended reference rangePerformed By: #### GLULS #### Point of Care testing ,Potassium [Moles/Vol]4.5 mmol/LNormal3.5-5.1The [facility] Comment on above:Performed By: #### GLULS #### Point of Care testing ,Protein [Mass/Vol]5.4 g/dLLow6.4-8.9The [facility] GroupComment on above:Performed By: #### GLULS #### Point of Care testing ,Sodium [Moles/Vol]140 mmol/DKvlfnz955-008Maz [facility] GroupComment on above:Performed By: #### GLULS #### Point of Care testing ,Urea nitrogen [Mass/Vol]37 mg/dLHigh7-25The [facility]ician GroupComment on above:Performed By: #### GLULS #### Point of Care testing ,ECG 12 lead ECGon 65-23-9216SSV 12 lead [place] [address] Electrocardiograph Report Signed Patient: Jose L Ames MR#: [id number] : 1940 Acct:[id number] Age/Sex: 84 / M ADM Date: 10/09/24 Loc: Room: [address] [place] [address] Type: ADM IN Attending Dr: Javier Murray [...] compared with ECG of 09-Oct-2024 19:38, (Unconfirmed) CT interval has increased Confirmed by ISABEL DAUGH[facility] ([facility] on 10/12/2024 6:24:02 PM Referred By: Electronically Signed By: VIET HALL MD [facility] Transcribed By: MUS Signed By Viet Hall MD, [facility] 10/12/[address] [place] [address] Physician GroupECG 12 lead ECGSUMMA HEALTH Main [address] [address] Electrocardiograph Report Signed Patient: Jose L Ames MR#: [id number] : 1940 Acct:[id number] Age/Sex: 84 / M ADM Date: 10/09/24 Loc: Room: [address] [place] [address] Type: ADM IN Attending Dr: Javier Murray [...] axis shifted right Confirmed by ISABEL DAUGHERTY [facility] (137) on 10/12/2024 6:23:20 PM Referred By: Electronically Signed By: VIET HALL MD [facility] Transcribed By: MUS Signed By Viet Hall MD, [facility] 10/12/[address] [place] [address] Physician GroupECH echo transthoracicon 32-22-1144GLU echo transthoracicSUMMA HEALTH Main [address] [address] Echocardiogram Signed Patient: Jose L Ames MR#: [id number] : 1940 Acct:[id number] Age/Sex: 84 / M ADM Date: 10/09/24 Loc: Room: [address] [place] [address] Type: ADM IN Attending Dr: Loyda Carlos MD Ordering Provider: Lakesha Haskins APRN Date of Service: 10/09/2403/26/500 [facility] transthoracic: syncope Copies to: MD Lakesha Mccullough, GROMMET WORKER BSA: 2.3 m2 BP: 105/56 mmHg HR: [...] 0901 Signed By: Liz Plata MD 10/09/24 1558NoSelect [facility]ty [facility] Physician GroupGlucose Poct Glucometerson 70-73-0735Genmtkj [Mass/Vol]137 mg/dLBaptist Medical Center South Physician GroupComment on above:Result Comment: Random Glucose Reference Range is dependent on time and content of last meal. Glucose of more than 200 mg/dL in a nonstressed, ambulatory subject supports the diagnosis of Diabetes Mellitus. PERFORMED BY: [address] [address] PATHOLOGIST DIRECTOR STAFFING ALEX SALMERON M.D.Performed By: #### GLULS #### Point of Care testing ,Glucose [Mass/Vol]133 mg/dLBaptist Medical Center South Physician GroupComment on above: Result Comment: Random Glucose Reference Range is dependent on time and content of last meal. Glucose of more than 200 mg/dL in a nonstressed, ambulatory subject supports the diagnosis of Diabetes Mellitus. PERFORMED BY: [place] [id number] PATHOLOGIST DIRECTOR STAFFING ALEX SALMERON M.D.Performed By: #### GLULS #### Point of Care testing ,Ctnozbm7Hrd6: Cleaned MeterNoSelect Specialty Hospital [facility] Physician GroupComment on above: Result Comment: PERFORMED BY: [address] [address] PATHOLOGIST DIRECTOR STAFFING ALEX SALMERON M.D.Performed By: #### GLULS #### Point of Care testing ,Glucose [Mass/Vol]156 mg/dLBaptist Medical Center South Physician GroupComment on above: Result Comment: Random Glucose Reference Range is dependent on time and content of last meal. Glucose of more than 200 mg/dL in a nonstressed, ambulatory subject supports the diagnosis of Diabetes Mellitus.Performed By: #### GLULS #### Point of Care testing ,Qvojqge9Sya2: Cleaned MeterNormHCA Florida [facility] Hospital Physician GroupComment on above: Result Comment: PERFORMED BY: [place] [address] PATHOLOGIST DIRECTOR STAFFING ALEX SALMERON M.D.Performed By: #### GLULS #### Point of Care testing ,Glucose [Mass/Vol]192 mg/dLBaptist Medical Center South Physician GroupComment on above: Result Comment: Random Glucose Reference Range is dependent on time and content of last meal. Glucose of more than 200 mg/dL in a nonstressed, ambulatory subject supports the diagnosis of Diabetes Mellitus.Performed By: #### GLULS #### Point of Care testing ,Hemoglobin A1c/Hemoglobin.total in BloodOrdered By: Lakesha Haskins on 10-09-2024 HbA1c (Bld) [Mass fraction]Hemoglobin A1c percentageHigh4.3-5.6FCleveland Clinic Lutheran HospitalComment on above:Increased risk for diabetes: 5.7 - 6.4diabetes: >6.4glycemic control for adults with diabetes: <7.0Magnesiumon 40-47-4757Peggcedel [Mass/Vol]1.9 mg/dLNormal1.9-2.7The [facility] Physician GroupComment on above:Performed By: #### GLULS #### Point of Care testing ,US carotid doppler BIon 46-60-2549PU carotid doppler [facility] Main [place] [id number] Ultrasound Report Signed Patient: Jose L Ames MR#: [id number] : 1940 Acct:[id number] Age/Sex: 84 / M ADM Date: 10/09/24 Loc: Room: 6Q2331-5 Type: ADM IN Attending Dr: Loyda Carlos MD Ordering Provider: Lakesha Haskins APRN Date of Service: 10/09/24 US/US carotid doppler BI: syncope Copies to: Mohamad Terrance, MD Lakesha G Haskins, GROMMET WORKER CAROTID DUPLEX INDICATION: Altered mental status, slurred [...] Dean Barnard MD10/09/2024 9:26 AM [facility]: Sunita Box Transcribed By: KAYLEIGH 10/09/24925 Dictated By: Dean Barnard MD 10/09/24925 Signed By: 10/09/24 0926NormHCA Florida Lake [facility] Hospital Physician GroupVitamin D 25 Hydroxy Totalon 33-88-8202Aryccck D 25 Hydroxy Total56.5 ng/zOXaeezm40-374Rmf [facility] CenterComment on above:Result Comment: VITAMIN D STATUS 25(OH)VITAMIN D RANGE (ng/mL) Deficient <20 Insufficient 20 to <30 Sufficient 30 to 100 Reference: Ritu Devries, James SIMON et al. Evaluation,treatment, and prevention of vitamin D deficiency; an Endocrine Society clinical practice guideline. JCEM. 2010; 96(7):1911-30. PERFORMED BY: [place] [address] [place] [address] PATHOLOGIST DIRECTOR STAFFING ALEX SALMERON M.D.Performed By: #### GLULS #### Point of Care testing ,Vitamin D+Metabolites [Mass/volume] in Serum or PlasmaOrdered By: Lakesha Haskins on 65-27-9891Wlusxmn D+Metabolites [Mass/Vol]Vitamin D+Metabolites [Mass/volume] in Serum or Ilzqxl46-192BndrmlludMiddletown HospitalComment on above: VITAMIN D STATUS 25(OH)VITAMIN D RANGE (ng/mL) Deficient <20 Insufficient 20 to <69Jtvpcncfyb95 to 100Reference: Ritu Devries Bischoff-Ferrari HA, et al. Evaluation,treatment, and prevention of vitamin D deficiency; an Endocrine Society clinical practice guideline. JCEM. 2010; 96(7):1911-30.Basophils Auto (Bld) [#/Vol]on 47-82-0025Qyymnrhza (Bld) [#/Vol]Automated basophil count 0.0-0.1FCleveland Clinic Lutheran HospitalBasophils/100 WBC Auto (Bld)on 53-13-4036Exyrvpigi/100 WBC (Bld)Automated basophil %Low0.2-2.0M[facility]own HospitalEosinophils/100 WBC Auto (Bld)on 10-08-2024 Eosinophils/100 WBC (Bld)Automated eosinophil %Low0.9-7.0M[facility]own HospitalErythrocyte distribution width Auto (RBC) [Ratio]on 10-08-2024 Erythrocyte distribution width (RBC) [Ratio]Erythrocyte distribution width [Ratio] by Automated count11.0-15.0M[facility]own HospitalEstimated glomerular filtration rate (GFR) non- Americanon 65-53-4702YAT/1.73 sq M.predicted among non-blacks MDRD (S/P/Bld) [Vol rate/Area]Estimated glomerular filtration rate (GFR) non- AmericanLow>=60 mL/min/1.73m 2FCleveland Clinic Lutheran HospitalGlobulin Calc (S) [Mass/Vol]on 46-86-7052Nqfzzmqq (S) [Mass/Vol]Serum globulin measurement by calculation (mass/volume)M[facility]own HospitalHematocrit Auto (Bld) [Volume fraction]on 10-08-2024 Hematocrit (Bld) [Volume fraction]Hematocrit [Volume Fraction] of Blood by Automated count42.0-54.0M[facility]own HospitalHemoglobin [Mass/volume] in Bloodon 65-70-3721Cditvuczrt (Bld) [Mass/Vol]Hemoglobin [Mass/volume] in Blood14.0-18.0M[facility]own HospitalINR in Platelet poor plasma by Coagulation assayon 53-66-6678AOM Coag (PPP) [Relative time]INR in Platelet poor plasma by Coagulation assayMiddletown Hospital Comment on above:DESIRED INR:2.0-3.0 CONDITIONS NOT LISTED BELOW2.5-3.5 FOR PROSTHETIC HEART VALVE REPLACEMENT2.5-3.5 RECURRENT THROMBOSISLaboratory - Chemistry and Chemistry - challengeon 91-44-6964Phqfwim [Moles/Vol]0.7 mmol/L 0.4-2.0M[facility] HospitalBilirubin Ql (U)SMALLAbnormalNEGATIVE [facility] HospitalGlucose (U) [Mass/Vol]NegativeNEGATIVEMiddletown HospitalKetones Ql (U)TRACE mg/dLAbnormalNEGATIVEMiddletown HospitalpH (U)5.5 [pH]5.0-9.0[facility] Specific gravity (U) [Rel density]>=1.565Txosjudf5.005-1.025Middletown HospitalUrobilinogen Qn (U)0.2 {Zeb'U}/dL0.2-1.0M[facility]own HospitalAlbumin [Mass/Vol]3.5 g/dL3.4-5.0[facility] ALP [Catalytic activity/Vol]84 U/M07-410CiikcczfmMiddletown HospitalALT [Catalytic activity/Vol]20 U/A98-66ZkxomfohbMiddletown HospitalAST [Catalytic activity/Vol]17 U/V68-22XkjrscccjMiddletown HospitalBilirubin [Mass/Vol]0.7 mg/dL0.2-1.0[facility] HospitalCalcium [Mass/Vol]8.2 mg/dLLow8.5-10.1FCleveland Clinic Lutheran HospitalChloride [Moles/Vol]102 mmol/L 98-107Middletown HospitalCO2 [Moles/Vol]16.1 mmol/LLow21.0-32.0 [facility] HospitalCreatinine [Mass/Vol]3.09 mg/dLHigh0.70-1.30 [facility] HospitalGFR/1.73 sq M.predicted MDRD (S/P/Bld) [Vol rate/Area]23 mL/min/{1.73_m2}Low>=60 mL/min/1.73m 2FCleveland Clinic Lutheran HospitalGlucose [Mass/Vol]309 mg/jXHxds04-012OiezreiqzMiddletown Hospital Potassium [Moles/Vol]4.4 mmol/L3.5-5.1FCleveland Clinic Lutheran HospitalProtein [Mass/Vol]6.6 g/dL6.4-8.2FWVUMedicine Barnesville Hospitalodium [Moles/Vol]137 mmol/K924-642NfvevtihcMiddletown HospitalUrea nitrogen [Mass/Vol]43.0 mg/dL High7.0-18.0M[facility]own HospitalUrea nitrogen/Creatinine [Mass ratio]13.9 mg/mgMiddletown HospitalLaboratory - Hematology and Cell countson 34-19-3619Hvgvncuy granulocytes/100 WBC (Bld)0.6 %High0.0-0.5 [facility] HospitalLaboratory - Microbiology and Antimicrobial susceptibilityon 27-36-4448OZBM-CoV-2 (COVID-19) RNA ABE+probe Ql (Unsp spec) NegativeNEGATIVEMiddletown HospitalComment on above:This test has not been [...] authorization is revoked sooner.Laboratory - Specimen informationon 19-55-3738Abstjryauq (U)[facility] CampusColor (U)DK. YELLOWYELLOWMiddletown HospitalLaboratory - Urinalysison 50-63-7164Eqnagxmcz esterase Test strip Ql (U)NegativeNEGATIVEMiddletown HospitalNitrite Ql (U) NegativeNEGATIVEMiddletown HospitalProtein Ql (U)30 mg/dLAbnormal NEG/TRACEMiddletown HospitalLeukocytes [#/volume] corrected for nucleated erythrocytes in Blood by Automated counon 45-05-9235UZD corrected for nucl RBC Auto (Bld) [#/Vol]Leukocytes [#/volume] corrected for nucleated erythrocytes in Blood by Automated counHigh4.0-11.0M[facility] HospitalLymphocytes Auto (Bld) [#/Vol]on 29-12-6163Ttfzqhhhgys (Bld) [#/Vol] Lymphocytes [#/volume] in Blood by Automated countLow1.2-3.8M[facility]own HospitalLymphocytes/100 WBC Auto (Bld)on 13-69-9483Axuvghsoiaq/100 WBC (Bld)Lymphocytes/100 leukocytes in Blood by Automated agqwtWjo29.5-60.0[facility] HospitalH Auto (RBC) [Entitic mass]on 33-68-7538DHF (RBC) [Entitic mass]MCH [Entitic mass] by Automated hqdvjBypg68.9-34.0[facility]rington HospitalHC Auto (RBC) [Mass/Vol]on 82-79-7058BRJZ (RBC) [Mass/Vol]MCHC [Mass/volume] by Automated count29.9-35.2FCleveland Clinic Lutheran HospitalMCV Auto (RBC) [Entitic vol]on 65-55-6130ZCE (RBC) [Entitic vol] MCV [Entitic volume] by Automated ksqyzTctr17.0-94.0M[facility]own HospitalMonocytes Auto (Bld) [#/Vol]on 59-19-7405Jdcvxalwx (Bld) [#/Vol]Automated blood monocyte count0.3-0.8M[facility]own HospitalMonocytes/100 WBC Auto (Bld)on 82-82-6645Tbqbdtpmz/100 WBC (Bld)Automated monocyte %1.7-12.0 [facility] HospitalNeutrophils Auto (Bld) [#/Vol]on 10-08-2024 Neutrophils (Bld) [#/Vol]Neutrophils [#/volume] in Blood by Automated countHigh 1.4-6.5FCleveland Clinic Lutheran HospitalNeutrophils/100 WBC Auto (Bld)on 04-69-3927Idmdqcgoikq/100 WBC (Bld)Automated neutrophil %High43.0-75.0[facility] HospitalNo Panel Informationon 16-69-1053Csymz Microscopic Review [facility] Medical CenterUrine Occult BloodNegativeNEGATIVEMiddletown HospitalBedside Influenza Type A AntigenNegativeMiddletown HospitalComment on above:Negative for Flu A protein antigen. Infection due to Flu Acannot be ruled out. Flu A antigen in thesample may bebelow the detection limit of the test.Bedside Influenza Type B AntigenNegative [facility]own HospitalComment on above:Negative for Flu B protein antigen. Infection due to Flu Bcannot be ruled out. Flu B antigen in thesample may bebelow the detection limit of the test.Eosinophils # (Auto)0.0 10 3/uL 0.0-0.7FCleveland Clinic Lutheran HospitalEthyl Alcohol Level<3 mg/dLMiddletown HospitalComment on above:NOTE: 80 mg/dl is the legal limit for a blood alcohol levelImmature Granulocyte # (Auto)0.11 10 3/uLHigh0.00-0.03 [facility] HospitalTroponin I High Sndbhczdmlp00.7 pg/mL4.0-76.1 [facility] HospitalComment on above:CUT-OFF POINTS HAVE BEEN ESTABLISHED [...] INFORMATION.Platelet mean volume Auto (Bld) [Entitic vol]on 55-79-3392Yibozpfy mean volume (Bld) [Entitic vol]Platelet mean volume [Entitic volume] in Blood by Automated count9.5-13.5 [facility] HospitalPlatelets Auto (Bld) [#/Vol]on 10-08-2024 Platelets (Bld) [#/Vol]Platelets [#/volume] in Blood by Automated countLow 150-450Middletown HospitalProthrombin time (PT)on 89-79-2159VO Coag (PPP) [Time]Prothrombin time (PT)9.0-11.6FCleveland Clinic Luther[facility] Hospital RBC Auto (Bld) [#/Vol]on 69-57-7531BVO (Bld) [#/Vol]Erythrocytes [#/volume] in Blood by Automated countLow4.70-6.10[facility] Jewish Hospitalerum or plasma albumin/globulin mass ratioon 89-53-5625Rnqeeta/Globulin [Mass ratio] Serum or plasma albumin/globulin mass ratioMiddletown Hospital Serum or plasma anion gap determinationon 46-08-8934Zkgue gap [Moles/Vol]Serum or plasma anion gap determinationMiddletown HospitalProvider Letteron 42-30-1379Fjappmlv LetterProvider Letter October 07, 2024 JOSE L AMES [address] [place] [phone] : 1940 Dear Mr. Ames, We have been trying to reach you with no success. You have an appointment with Dr Baez on October 14 on which will need to be rescheduled since his schedule has changed that day. We have options with his sales service assistant/nurse practitioner. Please contact the office at the number listed below to get thisappointment rescheduled at your earliest convenience. Thank you for your prompt attention to this matter. Call [phone] option3 as soon as possible to be rescheduled. Sincerely, [facility] DaytonBasophils Auto (Bld) [#/Vol]on 27-57-9323Qkuuxhnjl (Bld) [#/Vol]Automated basophil count 0.0-0.1FCleveland Clinic Lutheran HospitalBasophils/100 WBC Auto (Bld)on 95-90-4342Ujozkbskc/100 WBC (Bld)Automated basophil %0.2-2.0M[facility] HospitalEosinophils/100 WBC Auto (Bld)on 08-97-6170Ysmabcxnrfu/100 WBC (Bld)Automated eosinophil %0.9-7.0M[facility]own HospitalErythrocyte distribution width Auto (RBC) [Ratio]on 93-28-2836Clobmorteye distribution width (RBC) [Ratio]Erythrocyte distribution width [Ratio] by Automated count11.0-15.0 [facility] HospitalEstimated glomerular filtration rate (GFR) non- Americanon 57-68-5235BSJ/1.73 sq M.predicted among non-blacks MDRD (S/P/Bld) [Vol rate/Area]Estimated glomerular filtration rate (GFR) non- AmericanLow>=60 mL/min/1.73m 2FC[facility] Luther[facility] HospitalHematocrit Auto (Bld) [Volume fraction]on 28-95-1319Jzedlzkkiq (Bld) [Volume fraction]Hematocrit [Volume Fraction] of Blood by Automated pqkctWmt43.0-54.0[facility] HospitalHemoglobin [Mass/volume] in Bloodon 70-42-5279Uaidqtqekp (Bld) [Mass/Vol]Hemoglobin [Mass/volume] in NtpwcKwr79.0-18.0[facility] HospitalLaboratory - Chemistry and Chemistry - challengeon 10-06-2024 Calcium [Mass/Vol]8.8 mg/dL8.5-10.1FC[facility] HospitalChloride [Moles/Vol]104 mmol/I73-792PwbtyyfcvMiddletown HospitalCO2 [Moles/Vol]29.9 mmol/L21.0-32.0[facility] HospitalCreatinine [Mass/Vol]1.42 mg/dL High0.70-1.30[facility] HospitalGFR/1.73 sq M.predicted MDRD (S/P/Bld) [Vol rate/Area]57 mL/min/{1.73_m2}Low>=60 mL/min/1.73m 2FC[facility] HospitalGlucose [Mass/Vol]147 mg/hLAgvs34-629ArhqxaysaMiddletown HospitalPotassium [Moles/Vol]4.6 mmol/L3.5-5.1FWVUMedicine Barnesville Hospitalodium [Moles/Vol]140 mmol/D960-376CarhbjoasMiddletown HospitalUrea nitrogen [Mass/Vol]12.0 mg/dL7.0-18.0[facility] HospitalUrea nitrogen/Creatinine [Mass ratio]8.5 mg/mgMiddletown Hospital Laboratory - Hematology and Cell countson 19-90-9170Dmnvfabx granulocytes/100 WBC (Bld)0.5 %0.0-0.5FC[facility] Luther[facility] HospitalLeukocytes [#/volume] corrected for nucleated erythrocytes in Blood by Automated counon 61-29-5145IVX corrected for nucl RBC Auto (Bld) [#/Vol]Leukocytes [#/volume] corrected for nucleated erythrocytes in Blood by Automated coun4.0-11.0[facility] HospitalLymphocytes Auto (Bld) [#/Vol]on 79-95-3996Mvrcikosufd (Bld) [#/Vol]Lymphocytes [#/volume] in Blood by Automated countLow1.2-3.8[facility] HospitalLymphocytes/100 WBC Auto (Bld)on 10-06-2024 Lymphocytes/100 WBC (Bld)Lymphocytes/100 leukocytes in Blood by Automated count 20.5-60.0[facility] HospitalH Auto (RBC) [Entitic mass]on 24-35-5070KNQ (RBC) [Entitic mass]MCH [Entitic mass] by Automated count25.9-34.0 [facility] HospitalMCHC Auto (RBC) [Mass/Vol]on 65-81-6420TTWI (RBC) [Mass/Vol]MCHC [Mass/volume] by Automated count29.9-35.2FSouthern Ohio Medical CenterV Auto (RBC) [Entitic vol]on 21-20-9511BNK (RBC) [Entitic vol] MCV [Entitic volume] by Automated vtaecSsva57.0-94.0[facility] HospitalMonocytes Auto (Bld) [#/Vol]on 80-24-0908Dnsnuptyu (Bld) [#/Vol]Automated blood monocyte count0.3-0.8[facility] HospitalMonocytes/100 WBC Auto (Bld)on 48-10-7095Vdysuqqxn/100 WBC (Bld)Automated monocyte %1.7-12.0 [facility] HospitalNeutrophils Auto (Bld) [#/Vol]on 10-06-2024 Neutrophils (Bld) [#/Vol]Neutrophils [#/volume] in Blood by Automated count 1.4-6.5FC[facility] HospitalNeutrophils/100 WBC Auto (Bld)on 03-21-5438Swofablqqft/100 WBC (Bld)Automated neutrophil %43.0-75.0[facility] HospitalNo Panel Informationon 02-52-8059Ywsrjqdoypr # (Auto)0.1 10 3/uL0.0-0.7FC[facility] HospitalImmature Granulocyte # (Auto)0.02 10 3/uL0.00-0.03[facility] HospitalPlatelet mean volume Auto (Bld) [Entitic vol]on 00-77-4670Yeuotpoi mean volume (Bld) [Entitic vol]Platelet mean volume [Entitic volume] in Blood by Automated count9.5-13.5FC[facility] HospitalPlatelets Auto (Bld) [#/Vol]on 48-94-3017Jmhescxom (Bld) [#/Vol]Platelets [#/volume] in Blood by Automated vrzwvPct934-868TtgmidkuyMiddletown HospitalRBC Auto (Bld) [#/Vol]on 55-31-5301GAS (Bld) [#/Vol] Erythrocytes [#/volume] in Blood by Automated countLow4.70-6.10[facility] Hospitalerum or plasma anion gap determinationon 90-06-7603Dkway gap [Moles/Vol]Serum or plasma anion gap determinationMiddletown HospitalBasophils Auto (Bld) [#/Vol]on 43-76-8506Mqthomtpp (Bld) [#/Vol] Automated basophil count0.0-0.1FC[facility] HospitalBasophils/100 WBC Auto (Bld)on 27-64-6184Opeygbfvh/100 WBC (Bld)Automated basophil %0.2-2.0 [facility] HospitalEosinophils/100 WBC Auto (Bld)on 07-16-2024 Eosinophils/100 WBC (Bld)Automated eosinophil %0.9-7.0[facility] HospitalErythrocyte distribution width Auto (RBC) [Ratio]on 19-60-2023Wecewnvwdni distribution width (RBC) [Ratio]Erythrocyte distribution width [Ratio] by Automated count11.0-15.0[facility] HospitalEstimated glomerular filtration rate (GFR) non- Americanon 53-13-3090HQT/1.73 sq M.predicted among non-blacks MDRD (S/P/Bld) [Vol rate/Area]Estimated glomerular filtration rate (GFR) non- AmericanLow>=60 mL/min/1.73m 2FC[facility] HospitalGlobulin Calc (S) [Mass/Vol]on 79-91-9417Udwmflbd (S) [Mass/Vol]Serum globulin measurement by calculation (mass/volume)[facility] HospitalGlucose mean value [Mass/volume] in Blood Estimated from glycated hemoglobinon 00-07-9903Dpraxen glucose Estimated from glycated hemoglobin (Bld) [Mass/Vol]Glucose mean value [Mass/volume] in Blood Estimated from glycated hemoglobinMiddletown HospitalHematocrit Auto (Bld) [Volume fraction]on 54-09-2605Tqxftzzlek (Bld) [Volume fraction]Hematocrit [Volume Fraction] of Blood by Automated iokhqLdu52.0-54.0[facility] HospitalHemoglobin [Mass/volume] in Bloodon 99-11-4255Dnpkqoauxx (Bld) [Mass/Vol] Hemoglobin [Mass/volume] in JwljpNwc12.0-18.0[facility] - Chemistry and Chemistry - challengeon 37-85-4761Urvaous [Mass/Vol] 3.7 g/dL3.4-5.0[facility] HospitalALP [Catalytic activity/Vol]116 U/X00-510NnguazltuMiddletown HospitalALT [Catalytic activity/Vol]24 U/L 16-63M[facility] HospitalAST [Catalytic activity/Vol]15 U/L15-37 [facility] HospitalBilirubin [Mass/Vol]0.5 mg/dL0.2-1.0[facility] HospitalCalcium [Mass/Vol]9.1 mg/dL8.5-10.1[facility] HospitalChloride [Moles/Vol]100 mmol/U93-020KahrhkeybMiddletown HospitalCO2 [Moles/Vol]28.6 mmol/L21.0-32.0[facility] Creatinine [Mass/Vol]1.42 mg/dLHigh0.70-1.30[facility] GFR/1.73 sq M.predicted MDRD (S/P/Bld) [Vol rate/Area]57 mL/min/{1.73_m2}Low>=60 mL/min/1.73m 2FC[facility] HospitalGlucose [Mass/Vol]129 mg/dLHigh 74-106M[facility] HospitalPotassium [Moles/Vol]4.5 mmol/L3.5-5.1 [facility] HospitalProtein [Mass/Vol]7.1 g/dL6.4-8.2FWVUMedicine Barnesville Hospitalodium [Moles/Vol]138 mmol/S295-604TztoabdoiMiddletown HospitalTSH Qn1.188 m[IU]/L0.358-3.740[facility] Urea nitrogen [Mass/Vol]16.0 mg/dL7.0-18.0[facility] HospitalUrea nitrogen/Creatinine [Mass ratio]11.3 mg/mgMiddletown Hospital Laboratory - Hematology and Cell countson 95-60-1432BsD8p (Bld) [Mass fraction] 6.4 %High4.5-6.2FC[facility] HospitalComment on above:ADA RECOMMENDED LIMIT 4.0 - 6.0ADA THERAPEUTIC TARGET < 7.0ACTION SUGGESTED> 7.0 Immature granulocytes/100 WBC (Bld)0.7 %High0.0-0.5FC[facility] HospitalLeukocytes [#/volume] corrected for nucleated erythrocytes in Blood by Automated counon 75-60-0884KIZ corrected for nucl RBC Auto (Bld) [#/Vol] Leukocytes [#/volume] corrected for nucleated erythrocytes in Blood by Automated coun4.0-11.0[facility] HospitalLymphocytes Auto (Bld) [#/Vol]on 65-33-3031Uqbtnazaezc (Bld) [#/Vol]Lymphocytes [#/volume] in Blood by Automated count1.2-3.8[facility] HospitalLymphocytes/100 WBC Auto (Bld)on 04-41-8747Iatdnrgqaef/100 WBC (Bld)Lymphocytes/100 leukocytes in Blood by Automated count20.5-60.0[facility] HospitalH Auto (RBC) [Entitic mass]on 55-71-7418GHS (RBC) [Entitic mass]MCH [Entitic mass] by Automated count 25.9-34.0[facility] HospitalMCHC Auto (RBC) [Mass/Vol]on 81-99-0278MMVN (RBC) [Mass/Vol]MCHC [Mass/volume] by Automated count29.9-35.2 [facility] HospitalV Auto (RBC) [Entitic vol]on 86-56-1144QQJ (RBC) [Entitic vol]MCV [Entitic volume] by Automated rgwkmAjky64.0-94.0[facility] HospitalMicroalbumin [Mass/volume] in Urineon 04-49-2181Zsqmvcv DL <= 20 mg/L (U) [Mass/Vol]Microalbumin [Mass/volume] in Urine<=30.0[facility] HospitalMonocytes Auto (Bld) [#/Vol]on 56-65-2436Hpijjnylx (Bld) [#/Vol]Automated blood monocyte count0.3-0.8[facility] Monocytes/100 WBC Auto (Bld)on 02-33-1422Cztqvmzcu/100 WBC (Bld)Automated monocyte %1.7-12.0[facility] HospitalNeutrophils Auto (Bld) [#/Vol]on 74-96-7043Priqcuduzsa (Bld) [#/Vol]Neutrophils [#/volume] in Blood by Automated count1.4-6.5FC[facility] HospitalNeutrophils/100 WBC Auto (Bld)on 56-29-4388Nqmocrjtasx/100 WBC (Bld)Automated neutrophil %43.0-75.0 [facility] HospitalNo Panel Informationon 62-34-6778Jfxrmdmrerh # (Auto)0.1 10 3/uL0.0-0.7FC[facility] HospitalImmature Granulocyte # (Auto)0.04 10 3/uLHigh0.00-0.03[facility] HospitalPlatelet mean volume Auto (Bld) [Entitic vol]on 92-79-8780Hsxucfsc mean volume (Bld) [Entitic vol]Platelet mean volume [Entitic volume] in Blood by Automated count9.5-13.5 [facility] HospitalPlatelets Auto (Bld) [#/Vol]on 07-16-2024 Platelets (Bld) [#/Vol]Platelets [#/volume] in Blood by Automated countLow 150-450M[facility] HospitalRBC Auto (Bld) [#/Vol]on 66-26-4673WOC (Bld) [#/Vol]Erythrocytes [#/volume] in Blood by Automated countLow4.70-6.10 [facility] Hospitalerum or plasma albumin/globulin mass ratioon 27-73-0459Axywpam/Globulin [Mass ratio]Serum or plasma albumin/globulin mass ratioMercy Health – The Jewish Hospitalerum or plasma anion gap determinationon 07-53-8940Zpbyn gap [Moles/Vol]Serum or plasma anion gap determinationMiddletown HospitalAmbulatory Visit Summaryon 91-02-0748Prwlctczav Visit SummaryAmbulatory Visit Summary JOSE L AMES [...] A BAEZ MD Where: [facility] [address], [address] [place] [address]- You Need to Schedule the Following Appointments Follow Up with LORRAINE DAUGHERTY, JOSE CARLOS Barnett When: Where: [address] [facility] [address] [place] [id number]- Medications What How Much When Instructions New oxybutynin (oxybutynin 5 mg Tab) 1 Tablets By Mouth At bedtime Refills: 11 Take 30 min prior tobedtime. Pickup at [facility]pharmacy #[id number] Unchanged ascorbic acid 500 Milligram Unchanged [...] physician if questions or concerns Pharmacy Information [facility]/pharmacy #[id number]: [address] [place], [place] [phone] What How Much When Comments Stop Taking [...] incontinence Urinary frequency Urinary (more content not included)...[facility] CenterUrology Office/Clinic Noteon 16-14-1363Xfnumtp Office/Clinic NoteUrology Office/Clinic Note Chief Complaint 2 [...] with voice recognition artificial intelligence software, specifically Direct Sitters, Funderbeam and or Rigel. Substitutions may have occurred due to the [...] MD, URL [address] [address]- Additional Instructions: 6 mos w/ PVR Patient [...] Pneumonia Radial nerve p (more content not included)...[facility] Comment on above:Result Comment: Electronically Signed By: Carlos A BAEZ MD\.br\Date and Time Signed: 04/15/24 13:39 EDT\.br\Electronically Co-Signed By: Alisson Saeed\.br\Date and Time Co-Signed: 04/15/24 13:35 EDT\.br\Electronically Co-Signed By: Alisson Saeed\.br\Date and Time Co- Signed: 04/15/2413:36 EDTBasophils Auto (Bld) [#/Vol]on 41-46-5288Vmgdrkydg (Bld) [#/Vol]0.0 10 3/uL0.0-0.1FC[facility] HospitalBasophils/100 WBC Auto (Bld)on 40-31-8558Qouryjwhh/100 WBC (Bld)0.9 %0.2-2.0[facility] HospitalEosinophils/100 WBC Auto (Bld)on 12-45-7387Wlgqwgwzpbe/100 WBC (Bld)0.7 %Low0.9-7.0[facility] HospitalErythrocyte distribution width Auto (RBC) [Ratio]on 34-36-3183Gwsbdzqchbp distribution width (RBC) [Ratio]12.8 %11.0-15.0[facility] HospitalEstimated glomerular filtration rate (GFR) non- Americanon 08-12-3045FAQ/1.73 sq M.predicted among non-blacks MDRD (S/P/Bld) [Vol rate/Area]59 mL/min/{1.73_m2}Low>=60 [facility] HospitalGlobulin Calc (S) [Mass/Vol]on 04-07-2024 Globulin (S) [Mass/Vol]3.0 g/dLMiddletown HospitalGlucose mean value [Mass/volume] in Blood Estimated from glycated hemoglobinon 04-07-2024 Average glucose Estimated from glycated hemoglobin (Bld) [Mass/Vol]203 mg/dL [facility] HospitalHematocrit Auto (Bld) [Volume fraction]on 73-84-3335Jutzthscug (Bld) [Volume fraction]42.1 %42.0-54.0[facility] HospitalHemoglobin [Mass/volume] in Bloodon 19-42-2208Edrmpimqkd (Bld) [Mass/Vol]14.0 g/dL14.0-18.0[facility] HospitalLaboratory - Chemistry and Chemistry - challengeon 21-82-8672Yvawbxs [Mass/Vol]3.5 g/dL 3.4-5.0[facility] HospitalALP [Catalytic activity/Vol]120 U/LHigh 46-116M[facility] HospitalALT [Catalytic activity/Vol]27 U/L16-63 [facility] HospitalAST [Catalytic activity/Vol]16 U/L15-37 [facility] HospitalBilirubin [Mass/Vol]0.4 mg/dL0.2-1.0[facility] HospitalCalcium [Mass/Vol]9.0 mg/dL8.5-10.1[facility] HospitalChloride [Moles/Vol]101 mmol/L94-948WmdyltjysMiddletown HospitalCO2 [Moles/Vol]27.1 mmol/L21.0-32.0[facility] Creatinine [Mass/Vol]1.18 mg/dL0.70-1.30[facility] GFR/1.73 sq M.predicted MDRD (S/P/Bld) [Vol rate/Area]mL/min/{1.73_m2}>=60 [facility] HospitalGlucose [Mass/Vol]248 mg/oPFjzo49-664VjskwibpzMiddletown HospitalPotassium [Moles/Vol]4.5 mmol/L3.5-5.1[facility] HospitalProtein [Mass/Vol]6.5 g/dL6.4-8.2[facility] Sodium [Moles/Vol]136 mmol/Z650-417YsfvuanymMiddletown HospitalUrea nitrogen [Mass/Vol]21.0 mg/dLHigh7.0-18.0[facility] HospitalUrea nitrogen/Creatinine [Mass ratio]17.8 mg/mgMiddletown Hospital Laboratory - Hematology and Cell countson 40-67-8070GuJ3e (Bld) [Mass fraction] 8.7 %High4.5-6.2FC[facility] HospitalComment on above:ADA RECOMMENDED LIMIT 4.0 - 6.0ADA THERAPEUTIC TARGET < 7.0ACTION SUGGESTED> 7.0 Immature granulocytes/100 WBC (Bld)0.2 %0.0-0.5[facility] Leukocytes [#/volume] corrected for nucleated erythrocytes in Blood by Automated counon 12-69-9081KTU corrected for nucl RBC Auto (Bld) [#/Vol]4.5 10 3/uL 4.0-11.0[facility] HospitalLymphocytes Auto (Bld) [#/Vol]on 28-20-0957Jzcvtqkwbck (Bld) [#/Vol]0.7 10 3/uLLow1.2-3.8[facility] HospitalLymphocytes/100 WBC Auto (Bld)on 08-12-4031Gjcwzkzikin/100 WBC (Bld)16.1 %Low20.5-60.0[facility] HospitalH Auto (RBC) [Entitic mass]on 41-75-4073IHG (RBC) [Entitic mass]32.7 pg25.9-34.0[facility] HospitalMCHC Auto (RBC) [Mass/Vol]on 72-00-2801KNBV (RBC) [Mass/Vol]33.3 g/dL29.9-35.2[facility] HospitalMCV Auto (RBC) [Entitic vol]on 10-44-9507STP (RBC) [Entitic vol]98.4 eERdcy79.0-94.0[facility] HospitalMonocytes Auto (Bld) [#/Vol]on 02-01-7486Tskouiqiu (Bld) [#/Vol]0.4 10 3/uL0.3-0.8[facility] HospitalMonocytes/100 WBC Auto (Bld)on 51-89-3776Nvagcxuwf/100 WBC (Bld)9.1 %1.7-12.0[facility] Neutrophils Auto (Bld) [#/Vol]on 96-86-4917Wtktovxkjln (Bld) [#/Vol]3.3 10 3/uL 1.4-6.5FC[facility] HospitalNeutrophils/100 WBC Auto (Bld)on 30-05-5247Xarzsysjmvu/100 WBC (Bld)73.0 %43.0-75.0[facility] HospitalNo Panel Informationon 01-28-5863Kcjpokiubka # (Auto)0.0 10 3/uL0.0-0.7 [facility] HospitalImmature Granulocyte # (Auto)0.01 10 3/uL 0.00-0.03[facility] HospitalPlatelet mean volume Auto (Bld) [Entitic vol]on 41-12-1832Jxqvirkr mean volume (Bld) [Entitic vol]9.7 fL9.5-13.5 [facility] HospitalPlatelets Auto (Bld) [#/Vol]on 04-07-2024 Platelets (Bld) [#/Vol]125 10 3/xGVmt193-108MfsrugjohMiddletown HospitalRBC Auto (Bld) [#/Vol]on 09-24-3020RYT (Bld) [#/Vol]4.28 10 6/uLLow4.70-6.10 [facility] Hospitalerum or plasma albumin/globulin mass ratioon 77-19-3995Sywxubl/Globulin [Mass ratio]1.2 {ratio}[facility] Hospitalerum or plasma anion gap determinationon 65-71-6658Iagiw gap [Moles/Vol] 12.4 mmol/LFCleveland Clinic Lutheran HospitalBasophils Auto (Bld) [#/Vol]on 73-25-9242Cqaefudxj (Bld) [#/Vol]0.0 10 3/uL0.0-0.1FC[facility] HospitalBasophils/100 WBC Auto (Bld)on 35-47-2241Xwslldbok/100 WBC (Bld)0.8 % 0.2-2.0[facility] HospitalEosinophils/100 WBC Auto (Bld)on 91-17-7857Zohqpkdjqdp/100 WBC (Bld)1.5 %0.9-7.0[facility] Erythrocyte distribution width Auto (RBC) [Ratio]on 60-15-7985Zuqbhlabfoo distribution width (RBC) [Ratio]13.0 %11.0-15.0[facility] Estimated glomerular filtration rate (GFR) non- Americanon 01-16-2024 GFR/1.73 sq M.predicted among non-blacks MDRD (S/P/Bld) [Vol rate/Area]56 mL/min/{1.73_m2}Low>=60M[facility] HospitalHematocrit Auto (Bld) [Volume fraction]on 25-28-2090Tofcujfyoa (Bld) [Volume fraction]39.5 %Low 42.0-54.0[facility] HospitalHemoglobin [Mass/volume] in Bloodon 56-94-5900Jfmshvlliq (Bld) [Mass/Vol]13.3 g/dLLow14.0-18.0[facility] HospitalLaboratory - Chemistry and Chemistry - challengeon 01-16-2024 Calcium [Mass/Vol]9.1 mg/dL8.5-10.1[facility] HospitalChloride [Moles/Vol]100 mmol/G99-976CmncgtipsMiddletown HospitalCO2 [Moles/Vol]32.5 mmol/LHigh21.0-32.0[facility] HospitalCreatinine [Mass/Vol]1.23 mg/dL0.70-1.30[facility] HospitalGFR/1.73 sq M.predicted MDRD (S/P/Bld) [Vol rate/Area]mL/min/{1.73_m2}>=60[facility] Glucose [Mass/Vol]244 mg/nABhqp27-693YbixldlmdMiddletown HospitalPotassium [Moles/Vol]4.7 mmol/L3.5-5.1FWVUMedicine Barnesville Hospitalodium [Moles/Vol] 137 mmol/P169-170MuosrtgrvMiddletown HospitalUrea nitrogen [Mass/Vol]15.0 mg/dL7.0-18.0[facility] HospitalUrea nitrogen/Creatinine [Mass ratio]12.2 mg/mgMiddletown HospitalLaboratory - Hematology and Cell countson 11-63-8880Wfdrbkvf granulocytes/100 WBC (Bld)0.2 %0.0-0.5FC[facility] HospitalLaboratory - Urinalysison 52-07-8149Jjcesmm (U) [Mass/Vol]32.8 mg/dLHigh<=11.9[facility] HospitalLeukocytes [#/volume] corrected for nucleated erythrocytes in Blood by Automated counon 09-58-3074RKB corrected for nucl RBC Auto (Bld) [#/Vol]4.8 10 3/uL4.0-11.0 [facility] HospitalLymphocytes Auto (Bld) [#/Vol]on 01-16-2024 Lymphocytes (Bld) [#/Vol]0.9 10 3/uLLow1.2-3.8[facility] Lymphocytes/100 WBC Auto (Bld)on 72-79-0202Cqxbdflvssx/100 WBC (Bld)17.7 %Low 20.5-60.0[facility] Auto (RBC) [Entitic mass]on 25-29-7975HNF (RBC) [Entitic mass]32.8 pg25.9-34.0[facility] HospitalMCHC Auto (RBC) [Mass/Vol]on 06-76-2679ICZZ (RBC) [Mass/Vol]33.7 g/dL 29.9-35.2[facility] HospitalMCV Auto (RBC) [Entitic vol]on 21-61-8182AZT (RBC) [Entitic vol]97.3 pSEgyk74.0-94.0[facility] HospitalMonocytes Auto (Bld) [#/Vol]on 11-19-8210Omimolmhu (Bld) [#/Vol]0.4 10 3/uL0.3-0.8[facility] HospitalMonocytes/100 WBC Auto (Bld)on 06-41-7234Czzvdvjwb/100 WBC (Bld)9.2 %1.7-12.0[facility] Neutrophils Auto (Bld) [#/Vol]on 97-38-2593Tunjgrqtfic (Bld) [#/Vol]3.4 10 3/uL 1.4-6.5FC[facility] HospitalNeutrophils/100 WBC Auto (Bld)on 49-58-8262Xgpngivljkz/100 WBC (Bld)70.6 %43.0-75.0[facility] HospitalNo Panel Informationon 45-42-7091Ocnlgmmcsft # (Auto)0.1 10 3/uL0.0-0.7 [facility] HospitalImmature Granulocyte # (Auto)0.01 10 3/uL 0.00-0.03[facility] HospitalUrine Random Lbbjooszvw932.34 mg/dL 20.00-300.00[facility] HospitalPlatelet mean volume Auto (Bld) [Entitic vol]on 91-45-3664Hnyudisy mean volume (Bld) [Entitic vol]9.5 fL9.5-13.5 [facility] HospitalPlatelets Auto (Bld) [#/Vol]on 01-16-2024 Platelets (Bld) [#/Vol]123 10 3/oITtq082-160HsijffrleMiddletown HospitalRBC Auto (Bld) [#/Vol]on 62-98-7807LGO (Bld) [#/Vol]4.06 10 6/uLLow4.70-6.10 [facility] Hospitalerum or plasma anion gap determinationon 45-72-0397Epmdj gap [Moles/Vol]9.2 mmol/LFCleveland Clinic Lutheran HospitalUrine protein/creatinine ratioon 58-25-8400Fsoqcea/Creatinine (U) [Ratio]0.28[facility] HospitalAlbumin [Mass/volume] in Serum or Plasmaon 12-19-2023 Albumin [Mass/Vol]3.9 g/dL2.9-4.4FC[facility] HospitalBasophils Auto (Bld) [#/Vol]on 54-97-9987Qdqputlll (Bld) [#/Vol]0.0 10 3/uL0.0-0.1FC[facility] HospitalBasophils/100 WBC Auto (Bld)on 36-58-6516Shvijwbrh/100 WBC (Bld)0.6 %0.2-2.0[facility] HospitalEosinophils/100 WBC Auto (Bld)on 13-93-6889Utykoeaaqaj/100 WBC (Bld)1.1 %0.9-7.0[facility] HospitalErythrocyte distribution width Auto (RBC) [Ratio]on 12-19-2023 Erythrocyte distribution width (RBC) [Ratio]12.9 %11.0-15.0[facility] HospitalEstimated glomerular filtration rate (GFR) non- Americanon 04-38-2299VLX/1.73 sq M.predicted among non-blacks MDRD (S/P/Bld) [Vol rate/Area]43 mL/min/{1.73_m2}>=60M[facility] HospitalGlobulin Calc (S) [Mass/Vol]on 29-80-3415Kmughdwb (S) [Mass/Vol]3.1 g/dLMiddletown HospitalGlucose mean value [Mass/volume] in Blood Estimated from glycated hemoglobinon 90-77-3358Jnjnbea glucose Estimated from glycated hemoglobin (Bld) [Mass/Vol]166 mg/dLMiddletown HospitalHematocrit Auto (Bld) [Volume fraction]on 92-83-9647Xwawthalci (Bld) [Volume fraction]38.3 %42.0-54.0 [facility] HospitalHemoglobin [Mass/volume] in Bloodon 12-19-2023 Hemoglobin (Bld) [Mass/Vol]12.3 g/dL14.0-18.0[facility] IgA [Mass/volume] in Serum or Plasmaon 14-71-4937PhJ [Mass/Vol]112 mg/bU37-990 [facility] HospitalIgG [Mass/volume] in Serum or Plasmaon 33-86-0846CrA [Mass/Vol]805 mg/gF132-5315OovwbqyanMiddletown HospitalIgM [Mass/volume] in Serum or Plasmaon 68-51-7203WlG [Mass/Vol]48 mg/yV68-548 [facility] HospitalImmunoglobulin light chains.kappa.free [Mass/volume] in Serumon 34-19-5464Xdsypmjwvnmbyv light chains.kappa.free (S) [Mass/Vol]33.8 mg/L3.3-19.4FC[facility] Lutheran HospitalImmunoglobulin light chains.kappa.free/Immunoglobulin light chains.lambda.free [Sandra 12-19-2023 Immunoglobulin light chains.kappa.free/Immunoglobulin light chains.lambda.free (S) [Mass ratio]1.610.26-1.65M[facility]own HospitalComment on above: Performed at: [facility] [place] [id number] Director: Juan José Butler PhD, Phone: [phone] light chains.lambda.free [Mass/volume] in Serum or Plasmaon 74-62-1591Gavadnrwugkvxt light chains.lambda.free [Mass/Vol]21.0 mg/L5.7-26.3FC[facility] Lutheran HospitalIron binding capacity [Mass/volume] in Serum or Plasmaon 83-76-3673Xjwq binding capacity [Mass/Vol]294.0 ug/dL250.0-450.0[facility] HospitalIron saturation [Mass Fraction] in Serum or Plasmaon 95-22-0464Xjxh saturation [Mass fraction]26.9 %[facility] HospitalLaboratory - Chemistry and Chemistry - challengeon 09-62-2133Mxaajyp [Mass/Vol]3.4 g/dL 3.4-5.0[facility] HospitalALP [Catalytic activity/Vol]88 U/L46-116 [facility] HospitalALT [Catalytic activity/Vol]36 U/L16-63 [facility] HospitalAST [Catalytic activity/Vol]14 U/L15-37 [facility] HospitalBilirubin [Mass/Vol]0.3 mg/dL0.2-1.0[facility] HospitalCalcium [Mass/Vol]9.3 mg/dL8.5-10.1FC[facility] Luther[facility] HospitalChloride [Moles/Vol]102 mmol/C91-463CqsultzkrMiddletown HospitalCO2 [Moles/Vol]31.6 mmol/L21.0-32.0[facility] Cobalamin (Vitamin B12) [Mass/Vol]386.0 pg/mL193.0-986.0[facility] HospitalCreatinine [Mass/Vol]1.55 mg/dL0.70-1.30[facility] HospitalFerritin [Mass/Vol]94.0 ng/mL26.0-388.0[facility] GFR/1.73 sq M.predicted MDRD (S/P/Bld) [Vol rate/Area]52 mL/min/{1.73_m2}>=60 [facility] HospitalGlucose [Mass/Vol]217 mg/lZ42-507MfpuvamxmMiddletown HospitalIron [Mass/Vol]79.0 ug/dL65.0-175.0[facility] HospitalPotassium [Moles/Vol]5.0 mmol/L3.5-5.1FC[facility] HospitalProtein [Mass/Vol]6.5 g/dL6.4-8.2FWVUMedicine Barnesville Hospitalodium [Moles/Vol]141 mmol/F874-320FhrdcwpdmMiddletown HospitalTSH Qn0.974 m[IU]/L 0.358-3.740M[facility] HospitalUrea nitrogen [Mass/Vol]21.0 mg/dL 7.0-18.0Fire[facility] Medical CenterUrea nitrogen/Creatinine [Mass ratio] 13.5 mg/mgMiddletown HospitalLaboratory - Hematology and Cell countson 17-97-6885DcL3z (Bld) [Mass fraction]7.4 %4.5-6.2FC[facility] Lutheran HospitalComment on above:ADA RECOMMENDED LIMIT 4.0 - 6.0ADA THERAPEUTIC TARGET < 7.0ACTION SUGGESTED> 7.0Immature granulocytes/100 WBC (Bld)0.2 %0.0-0.5 [facility] HospitalLeukocytes [#/volume] corrected for nucleated erythrocytes in Blood by Automated counon 02-55-5418XTS corrected for nucl RBC Auto (Bld) [#/Vol]5.4 10 3/uL4.0-11.0[facility] Lymphocytes Auto (Bld) [#/Vol]on 93-65-7826Pdijppxnoqb (Bld) [#/Vol]1.1 10 3/uL 1.2-3.8[facility] HospitalLymphocytes/100 WBC Auto (Bld)on 07-30-8079Sovjfaguiar/100 WBC (Bld)20.0 %20.5-60.0[facility] HospitalH Auto (RBC) [Entitic mass]on 34-01-6914XKW (RBC) [Entitic mass]32.0 pg 25.9-34.0[facility] HospitalMCHC Auto (RBC) [Mass/Vol]on 34-02-9605UMRO (RBC) [Mass/Vol]32.1 g/dL29.9-35.2FC[facility] Lutheran HospitalMCV Auto (RBC) [Entitic vol]on 13-55-5589XPB (RBC) [Entitic vol]99.7 fL 80.0-94.0[facility] HospitalMonocytes Auto (Bld) [#/Vol]on 05-62-5162Jfoymhgtu (Bld) [#/Vol]0.5 10 3/uL0.3-0.8[facility] HospitalMonocytes/100 WBC Auto (Bld)on 10-87-9101Auxnsfnkg/100 WBC (Bld)9.2 % 1.7-12.0[facility] HospitalNeutrophils Auto (Bld) [#/Vol]on 70-02-0156Tzwkjmzkhsb (Bld) [#/Vol]3.7 10 3/uL1.4-6.5FC[facility] Luther[facility] HospitalNeutrophils/100 WBC Auto (Bld)on 28-74-8085Cqxwehvfjjj/100 WBC (Bld)68.9 % 43.0-75.0[facility] HospitalNo Panel Informationon 97-34-1854I- Reactive Protein, Quantitative<0.50 mg/dL<=0.50[facility] Eosinophils # (Auto)0.1 10 3/uL0.0-0.7FC[facility] Luther[facility] HospitalFolate 22.10 ng/mL8.60-58.90[facility] HospitalImmature Granulocyte # (Auto)0.01 10 3/uL0.00-0.03[facility] HospitalProtein Electrophoresis M-SpikeNot Observed g/dLNot ObservedMiddletown HospitalProtein Electrophoresis NoteComment.[facility] Comment on above:Protein electrophoresis scan will follow via computer,mail, or glass embosser delivery.Platelet mean volume Auto (Bld) [Entitic vol]on 12-19-2023 Platelet mean volume (Bld) [Entitic vol]9.6 fL9.5-13.5FC[facility] Luther[facility] HospitalPlatelets Auto (Bld) [#/Vol]on 62-16-3683Txblhnsfo (Bld) [#/Vol]136 10 3/zY507-034FqradvncdMiddletown HospitalProtein [Mass/volume] in Serum or Plasmaon 12-91-9191Twphpsw [Mass/Vol]6.2 g/dL6.0-8.5FC[facility] Luther[facility] HospitalRBC Auto (Bld) [#/Vol]on 71-71-4786MNP (Bld) [#/Vol]3.84 10 6/uL4.70-6.10 [facility] Hospitalerum globulin measurement (mass/volume)on 60-83-5297Isrfnsde (S) [Mass/Vol]2.3 g/dL2.2-3.9[facility] Hospitalerum or plasma albumin/globulin mass ratioon 31-29-7702Vlueiby/Globulin [Mass ratio]1.1 {ratio}[facility] HospitalAlbumin/Globulin [Mass ratio]1.7 {ratio}0.7-1.7FWVUMedicine Barnesville Hospitalerum or plasma alpha 1 globulin measurement by electrophoresis (mass/volume)on 28-86-1807Moqlf 1 globulin Elph [Mass/Vol]0.2 g/dL0.0-0.4FWVUMedicine Barnesville Hospitalerum or plasma alpha 2 globulin measurement by electrophoresis (mass/volume)on 74-16-1048Hnotl 2 globulin Elph [Mass/Vol]0.6 g/dL0.4-1.0[facility] Hospitalerum or plasma anion gap determinationon 86-61-1667Lblqe gap [Moles/Vol]12.4 mmol/LFWVUMedicine Barnesville Hospitalerum or plasma beta globulin measurement by electrophoresis (mass/volume)on 80-13-0478Xgto globulin Elph [Mass/Vol]0.8 g/dL0.7-1.3FWVUMedicine Barnesville Hospitalerum or plasma gamma globulin measurement by electrophoresis (mass/volume)on 23-95-5765Dsmsc globulin Elph [Mass/Vol]0.7 g/dL0.4-1.8[facility] Hospitalerum or plasma immunoelectrophoresis interpretationon 66-23-6231Akehcaxbogdbxh IEP [Interp]Comment.[facility] HospitalComment on above:No monoclonality detected.Office Visit (Cardiology)on 02-00-0410Cufbhx-up visit Diagnoses/Problems Assessed Diastolic dysfunction with chronic [...] in adult Healthy Weight Tips; Status:Complete; Done: [id number] Some eating tips that can help you lose weight.; Status:Complete; Done: [id number] Diabetes Hemoglobin A1C; Status:Canceled; Hyperlipidemia ALT - [...] today sinus rhythm 85 first-degree AV block CT interval 218 ms compared to EKG of 09/05/2022 heart rate has decreased. 1 Uses cane as ambulatory aid, no falls Surgical History Problems History of Arm surgery History of Cataract surgery History of Colon surgery History of Complete colonoscopy History of Tonsillectomy Current Meds Medication NameInstruction Acetaminophen 325 MG Or (more content not included)...NormalUH TouchworksTobacco Screening.on 36-98-9608Indg risk assessmenta) No falls within the last year- [facility] [employer] 250 DO Work Phone: Tobacco use status CPHSb) NoM-[facility] Into [employer] 250 DO Work Phone: Office Visit (Cardiology)on 60-79-4409Mavhvv-up visit Patient Instructions Please bring all medicines, [...] was prompted by a hospital stay at [facility].Patient was admitted in transfer from [facility], with hypoxemia cough congestion, treated for [...] Klor- (more content not included)...NormalUH TouchworksTobacco Screening.on 44-83-3554Nevjz depression screening assessmentNoAstria [facility]-Don 250 DO Work Phone: Fall risk assessmenta) No falls within the last year -[facility] Heart-Harris 250 DO Work Phone: Tobacco use status CPHSb) NoM-[facility] Heart- Don 250 DO Work Phone: NO CARDIAC STRESS/REST INJECTIONon 77-27-0791MSA CARDIAC STRESS/REST INJECTIONMRN: [id number] Patient Name: JOSE L AMES STUDY: MYOCARDIAL PERFUSION STRESS TEST WITH LEXISCAN Performing facility: [facility], [address] [place] [address], [address], [address] Provider: Cathleen Lopez MD, FACC PCP: Dr. Alejandro ALEJANDRO Supervising provider: Liz Plata MD INDICATION: R77.8: Elevated troponin I50.32: Diastolic dysfunction with chronic heart failure HISTORY: Gender: M; Age: 82 y/o ; Height: 0 cm; Weight: 275.2613039 kg. Diabetes; High Cholesterol; HTN; SOB; COPD; Quit smoking 2 years ago. COMPARISON: No comparison. ACCESSION NUMBER(S): [id number]; [id number]; [id number] ORDERING CLINICIAN: CATHLEEN LOPEZ TECHNIQUE: ONE DAY [...] for comparison. Electronically signed by: VIET HALL MDKindred HealthcareNo Panel Informationon 62-72-6966FlwhmuTC-[place] [facility]-Harris 250 DO Work Phone: Office Visit (Cardiology)on 63-31-2627Brdyeu-up visit Diagnoses/Problems Assessed Hypertension (401.9) (I10) Hyperlipidemia [...] is being seen for CAD referral S/[facility]. History of Present Illness 82-year-old with multiple [...] was prompted by a hospital stay at [facility].Patient was admitted in transfer from [facility], with hypoxemia cough congestion, treated for [...] multiple comorbidities, [facility]ing of hypoxemic respiratory failure due to pneumonia, could not exclude diastolic heart failure, and had mild elevation of troponin. Diagnosis is elevated troponin not related to myocardial injury, but possibly related to supply demand mismatch. Patient has chronic diastolic heart failure Shortness of breath class III multifactorial EKG today sinus rhythm 85 first-degree AV block CT interval 218 ms compared to EKG of [...] further questions arise, Sincerely, Cathleen Lopez MD [facility] I told patient that he should bring his inhalers and use them prior to his perfusion study. Current (more content not included)...NormalUH TouchworksTobacco Screening.on 81-86-3866Ewent depression screening assessmentSwift County [facility] 250 DO Work Phone: Fall risk assessmenta) No falls within the last year [facility] 250 DO Work Phone: Tobacco use status CPHSb) [facility] 250 DO Work Phone: CHEMISTRYOrdered By: Neli Collins on 64-96-5474Ydrerik [Mass/Vol]110 mg/xBNrxo79 - 99 mg/dLFTMC POC SubsectionComment on above:Result Comment: Cleaned MeterPOC Device [id number] Interpretation CodeFTMC POC SubsectionPOC User [id number] Interpretation CodeFTMC POC Subsection POC UsernameSHAFFER, ATHENAInvalid Interpretation CodeFTMC POC SubsectionGlucose [Mass/Vol]93 mg/fDXiypsz50 - 99 mg/dLFTMC POC SubsectionComment on above:Result Comment: Cleaned MeterPOC Device [id number] Interpretation CodeFTMC POC SubsectionPOC User [id number] Interpretation CodeFTMC POC Subsection POC UsernamKRISTEN Dangvalba Interpretation CodeFTMC POC Subsection CHEMISTRYOrdered By: Lab ROPUser on 44-18-2969Ifhijqy [Mass/Vol]187 mg/gWWpfk34 - 99 mg/dLFTMC POC SubsectionComment on above:Result Comment: Cleaned MeterPOC Device [id number] Interpretation CodeFTMC POC SubsectionPOC User ID [id number] Interpretation CodeFTMC POC SubsectionPOC UsernamKRISTEN Dangvalba Interpretation CodeFTMC POC SubsectionCHEMISTRYOrdered By: SYSTEM SYSTEM on 45-33-0248Zifej gap [Moles/Vol]14 mmol/LNormal6 - 16 mEq/LFTMC Remisol Calcium [Mass/Vol]8.8 mg/dLLow8.9 - 11.1 mg/dLFTMC RemisolChloride [Moles/Vol]97 mmol/KDlm508 - 111 mmol/LFTMC RemisolCO2 [Moles/Vol]28 mmol/QWuujyp66 - 31 mmol/LFTMC RemisolCreatinine [Mass/Vol]1.3 mg/dLNormal0.5 - 1.3 mg/dLFTMC RemisolGFR/1.73 sq M.predicted among blacks MDRD (S/P/Bld) [Vol rate/Area] mL/min/1.73 u5Wufnfi>=59mL/min/1.73 m2FT[facility] Chem SGFR/1.73 sq M.predicted among non-blacks MDRD (S/P/Bld) [Vol rate/Area]53 mL/min/1.73 m2Low>=59mL/min/1.73 m2 [facility] Chem SGlucose [Mass/Vol]89 mg/kHUizdbw97 - 199 mg/dLFTMC RemisolPotassium [Moles/Vol]4.2 mmol/LNormal3.5 - 5.3 mmol/LFTMC RemisolSodium [Moles/Vol]135 mmol/TFjfjoe752 - 145 mmol/LFTMC RemisolUrea nitrogen [Mass/Vol]20 mg/dLNormal5 - 21 mg/dLFTMC RemisolUrea nitrogen/Creatinine [Mass ratio]15 mg/feYabjyh86 - 20 FT RemisolCHEMISTRYOrdered By: Opal Angel on 07-98-7125PzI5e (Bld) [Mass fraction]9.8 %High<=5.9%[facility] ChemAutoSSCHEMISTRYOrdered By: SYSTEM SYSTEM on 14-47-4536Hiklm gap [Moles/Vol]11 mmol/LNormal6 - 16 mEq/LFTMC RemisolCalcium [Mass/Vol]8.3 mg/dLLow8.9 - 11.1 mg/dLFTMC RemisolChloride [Moles/Vol]93 mmol/L Owp821 - 111 mmol/LFTMC RemisolCO2 [Moles/Vol]32 mmol/LHigh21 - 31 mmol/LFTMC RemisolCreatinine [Mass/Vol]1.1 mg/dLNormal0.5 - 1.3 mg/dLFTMC RemisolGFR/1.73 sq M.predicted among blacks MDRD (S/P/Bld) [Vol rate/Area]mL/min/1.73 d6Yscnfb >=59mL/min/1.73 m2FT Chem SGFR/1.73 sq M.predicted among non-blacks MDRD (S/P/Bld) [Vol rate/Area]mL/min/1.73 t8Pkfito>=59mL/min/1.73 m2FT Chem S Glucose [Mass/Vol]281 mg/gJGkft29 - 199 mg/dLFTMC RemisolPotassium [Moles/Vol] 4.3 mmol/LNormal3.5 - 5.3 mmol/LFTMC RemisolSodium [Moles/Vol]132 mmol/RCkn786 - 145 mmol/LFTMC RemisolUrea nitrogen [Mass/Vol]24 mg/dLHigh5 - 21 mg/dLFTMC RemisolUrea nitrogen/Creatinine [Mass ratio]22 mg/xlLqgv07 - 20FT[facility] Remisol HEMATOLOGYOrdered By: SYSTEM SYSTEM on 99-50-4969Xagxxxbmb/100 WBC (Bld)0.2 % Normal0.0 - 2.0 %[facility] HemeAutoSSBasophils/Leukocytes Auto (Bld) [Pure # fraction]0.0 E9/LNormal0.0 [...] 7.5 E9/LFTMC HemeAutoSSHEMATOLOGYOrdered By: Terrell Orosco on 11-77-8166Jrpeczarujq distribution width (RBC) [Ratio]13.9 %Rqjvis70.9 - 14.2 %[facility] HemeAutoSSHematocrit (Bld) [Volume fraction]40.7 % Icloqb41.7 - 49.0 %[facility] HemeAutoSSHemoglobin (Bld) [Mass/Vol]13.6 g/wAOvvewc30.5 - 17.5 gm/dLFTMC HemeAutoSSMCH (RBC) [Entitic mass]30.5 tgTrmbka99.0 - 34.0 pg [facility] HemeAutoSSMCHC (RBC) [Mass/Vol]33.5 g/fLZcyiui93.4 - 36.0 gm/dLFTMC HemeAutoSSMCV (RBC) [Entitic vol]91.1 bMHfuxwt12.0 - 100.0 fLFTMC HemeAutoSS Platelet mean volume (Bld) [Entitic vol]8.0 fLNormal6.4 - 10.8 fLSTR[facility] HemeAutoSS Platelets (Bld) [#/Vol]218.0 E9/FNlpiwx000.0 - 500.0 E9/[facility] HemeAutoSSRBC (Bld) [#/Vol]4.5 E12/LNormal4.3 - 5.9 E12/[facility] HemeAutoSSWBC corrected for nucl RBC Auto (Bld) [#/Vol]6.3 E9/LNormal4.0 - 11.0 E9/[facility] HemeAutoSSCOVID-19 SOFIAOrdered By: Randolph Velasquez on 33-95-3781TJUC-CoV+SARS-CoV-2 (COVID-19) Ag IA.rapid Ql (Resp)NegativeNegativeMiddletown HospitalComment on above:This is a duplicate Kyung SARS Antigen (DAVE) result to be used for statistical tracking purpose only.Creatinine and Glomerular filtration rate.predicted panel (S/P/Bld)Ordered By: Randolph Velasquez on 05-03-7246Ptketwlonf [Mass/Vol]1.12 mg/dL0.64-1.27M[facility] HospitalEstimated glomerular filtration rate (GFR) non- AmericanOrdered By: Randolph Velasquez on 82-45-9741EJC/1.73 sq M.predicted among non-blacks MDRD (S/P/Bld) [Vol rate/Area]> 60 mL/MinMiddletown HospitalGlucose Glucometer (BldC) [Mass/Vol]Ordered By: Randolph Velasquez on 00-73-3751Pbxkbrd [Mass/Vol]342 mg/dL [facility] HospitalComment on above:Random Glucose Reference Range is dependent on time and content of last meal. Glucose of more than 200 mg/dL in a nonstressed, ambulatory subject supports the diagnosis of Diabetes Mellitus.No Panel InformationOrdered By: Randolph Velasquez on 55-56-4579MROZ Antigen (LFIA)[facility] HospitalEstimated GFR ()> 60 mL/MinMiddletown HospitalComment on above:GFR estimated reference range: According to KDOQI guidelines, <60 ml/min/1.73m2 is sufficient todiagnose a patient with chronic kidney disease.Pharmacy Creatinine Clearance (Chem62.70 [facility] Hospitalerum or plasma anion gap determinationOrdered By: Randolph Velasquez on 64-47-7510Gvqza gap [Moles/Vol]7.5 mmol/L6.0-15.0[facility] Hospitalerum or plasma calcium measurement (mass/volume)Ordered By: Randolph Velasquez on 00-02-9110Gcocijf [Mass/Vol]7.9 mg/dL8.2-10.2FWVUMedicine Barnesville Hospitalerum or plasma chloride measurement (moles/volume) Ordered By: Randolph Velasquez on 12-95-0216Lnyatsln [Moles/Vol]98 mmol/L95-114 [facility] Hospitalerum or plasma glucose measurement (mass/volume)Ordered By: Randolph Velasquez on 60-34-4507Jjantyg [Mass/Vol]170 mg/dL 70-100M[facility] HospitalComment on above:ADA recommended reference rangeRandom Glucose Reference Range is dependent on time and content of last meal. Glucose of more than 200 mg/dL in a nonstressed, ambulatory subject supports the diagnosisof Diabetes Mellitus.Serum or plasma potassium measurement (moles/volume)Ordered By: Randolph Velasquez on 44-88-7780Gryawmjjl [Moles/Vol]3.4 mmol/L3.5-5.1FCleveland Clinic Lutheran HospitalComment on above: Delta: 4.9 on 09/07/2210Serum or plasma sodium measurement (moles/volume) Ordered By: Randolph Velasquez on 68-71-0310Rzcdwe [Moles/Vol]134 mmol/Y828-750 [facility] Hospitalerum or plasma total carbon dioxide measurement (moles/volume)Ordered By: Randolph Velasquez on 75-19-5644QT8 [Moles/Vol] 31.9 mmol/L22.0-30.0[facility] Hospitalerum or plasma urea nitrogen measurement (mass/volume)Ordered By: Randolph Velasquez on 44-24-4552Chty nitrogen [Mass/Vol]22 mg/dL9-[facility] HospitalAutomated erythrocytes count in urine sediment (number/area)Ordered By: Randolph Velasquez on 57-89-0793PEY Auto (Urine sed) [#/Area]Innumerable [HPF]0-4FCleveland Clinic Lutheran HospitalAutomated leukocytes count in urine sediment (number/area)Ordered By: Randolph Velasquez on 68-20-2349NGR Auto (Urine sed) [#/Area]1-2 [HPF]0-4 [facility] HospitalBasophils Auto (Bld) [#/Vol]Ordered By: Randolph Velasquez on 44-44-0578Bsnyzmmkc (Bld) [#/Vol]0.0 10*3/uL0.0-0.2FC[facility] Luther[facility] HospitalBasophils/100 WBC Auto (Bld)Ordered By: Randolph Velasquez on 85-67-9105Gnfewprrt/100 WBC (Bld)0.3 %.[facility] Bilirubin Test strip Ql (U)Ordered By: Randolph Velasquez on 70-77-5042Qpdeobswv Ql (U)NegativeNegativeMiddletown HospitalColor Auto (U)Ordered By: Randolph Velasquez on 88-67-0897Mmwui (U)YellowYellowMiddletown HospitalEosinophils Auto (Bld) [#/Vol]Ordered By: Randolph Velasquez on 09-07-2022 Eosinophils (Bld) [#/Vol]0.0 10*3/uL0.0-0.45[facility] Eosinophils/100 WBC Auto (Bld)Ordered By: Randolph Velasquez on 09-07-2022 Eosinophils/100 WBC (Bld)0.0 %.[facility]own HospitalErythrocyte distribution width Auto (RBC) [Ratio]Ordered By: Randolph Velasquez on 09-07-2022 Erythrocyte distribution width (RBC) [Ratio]13.9 %12.0-14.8[facility] HospitalHematocrit Auto (Bld) [Volume fraction]Ordered By: Randolph Velasquez on 88-18-5746Xbuzfzxses (Bld) [Volume fraction]38.6 %38.8-50.0[facility] HospitalHemoglobin [Mass/volume] in BloodOrdered By: Randolph Velaqsuez on 33-60-4200Zlsjzyrcwp (Bld) [Mass/Vol]12.6 g/dL13.0-17.0[facility] HospitalKetones Auto test strip (U) [Mass/Vol]Ordered By: Randolph Velasquez on 84-31-0290Yzvehju (U) [Mass/Vol]TraceNegativeMiddletown Hospital Laboratory - UrinalysisOrdered By: Randolph Velasquez on 95-11-6319Nqstjvw casts LM Ql (Urine sed)0-8 [LPF]0-8[facility] HospitalLeukocytes [#/volume] corrected for nucleated erythrocytes in Blood by Automated counOrdered By: Randolhp Velasquez on 94-77-7276QPZ corrected for nucl RBC Auto (Bld) [#/Vol]13.0 10*3/uL4.1-10.5FC[facility] Lutheran HospitalLymphocytes Auto (Bld) [#/Vol] Ordered By: Randolph Velasquez on 98-05-9513Qimyignijoo (Bld) [#/Vol]0.5 10*3/uL 1.00-4.8[facility] HospitalLymphocytes/100 WBC Auto (Bld)Ordered By: Randolph Velasquez on 25-03-4984Jodvnyrsycl/100 WBC (Bld)3.6 %.[facility] Auto (RBC) [Entitic mass]Ordered By: Randolph Velasquez on 33-44-0797VCC (RBC) [Entitic mass]30.2 pg27.5-35.2FC[facility] Luther[facility] HospitalMCHC Auto (RBC) [Mass/Vol]Ordered By: Randolph Velasquez on 34-61-1459AEUR (RBC) [Mass/Vol]32.7 g/dL32.5-35.6FC[facility] Luther[facility] HospitalMCV Auto (RBC) [Entitic vol]Ordered By: Randolph Velasquez on 69-82-0527RNS (RBC) [Entitic vol]92.1 fL83.5-101M[facility]own HospitalMonocytes Auto (Bld) [#/Vol] Ordered By: Randolph Velasquez on 98-13-0073Jnpjrmzlc (Bld) [#/Vol]0.6 10*3/uL0.0-0.8 [facility] HospitalMonocytes/100 WBC Auto (Bld)Ordered By: Randolph Velasquez on 61-70-6297Qjkwavyzp/100 WBC (Bld)4.5 %.[facility]own HospitalNeutrophils Auto (Bld) [#/Vol]Ordered By: Randolph Velasquez on 09-07-2022 Neutrophils (Bld) [#/Vol]11.9 10*3/uL1.8-7.7[facility] Neutrophils/100 WBC Auto (Bld)Ordered By: Randolph Velasquez on 09-07-2022 Neutrophils/100 WBC (Bld)91.6 %.[facility] HospitalNitrite Test strip Ql (U)Ordered By: Randolph Velasquez on 23-49-0843Mbzkbkr Ql (U)Negative NegativeMiddletown HospitalNo Panel InformationOrdered By: Randolph Velasquez on 42-33-1619Nyulqjy Glucose #2 CommentCleaned meterMiddletown HospitalBedside Glucose CommentSee Kettering Health HamiltonComment on above:Glu2: Will Repeat TestNucleated erythrocytes [Presence] in Blood by Automated countOrdered By: Randolph Velasquez on 01-16-1373Tzmebdedz RBC Auto Ql (Bld)0.0 /100{WBC}0-0.5FCleveland Clinic Lutheran HospitalPlatelet adequacy [Presence] in Blood by Light microscopyOrdered By: Randolph Velasquez on 33-95-6596Qdwgchlkb LM Ql (Bld)NormalNormMercy Health Platelet mean volume Auto (Bld) [Entitic vol]Ordered By: Randolph Velasquez on 96-57-6338Pgxjhlpm mean volume (Bld) [Entitic vol]8.3 fL6.6-10.1FC[facility] Luther[facility] HospitalPlatelet morphology finding [Identifier] in BloodOrdered By: Randolph Velasquez on 09-47-8930Vnvubfqe morphology finding Nom (Bld)NormalNormal [facility]own HospitalPlatelets Auto (Bld) [#/Vol]Ordered By: Randolph Velasquez on 59-40-7279Kbqafktqh (Bld) [#/Vol]227 10*3/pZ841-776ZucrgnnpxMiddletown HospitalProtein Auto test strip (U) [Mass/Vol]Ordered By: Randolph Velasquez on 13-62-7520Pdbgykf (U) [Mass/Vol]100 mg/dLNegativeMiddletown HospitalRBC Auto (Bld) [#/Vol]Ordered By: Randolph Velasquez on 03-87-5143PWN (Bld) [#/Vol]4.19 10*6/uL3.90-5.60M[facility] HospitalRBC morphology Ordered By: Randolph Velasquez on 40-05-5768WIJ morphology finding Nom (Bld)Normal NormalMercy Health – The Jewish Hospitalpecific gravity Auto test strip (U) [Rel density]Ordered By: Randolph Velasquez on 42-33-0769Treqrprd gravity (U) [Rel density]1.0301.001-1.030[facility] Hospitalquamous epithelial cells detection in urine sediment by light microscopyOrdered By: Randolph Velasquez on 93-57-6291Vdeuavmbey cells.squamous LM Ql (Urine sed)None seen [HPF]0-2 [facility] HospitalUrine bacteria detection by automated method Ordered By: Randolph Velasquez on 80-51-9604Pfblkdrh Auto Ql (U)None seenNone Seen [facility]own HospitalUrine clarity by refractometry automatedOrdered By: Randolph Velasquez on 11-61-6985Puxcwih Refractometry automated (U)ClearClear [facility] HospitalUrine glucose measurement by automated test strip (mass/volume)Ordered By: Randolph Velasquez on 14-76-8119Qyxoeda Auto test strip (U) [Mass/Vol]>=1000 mg/dLNormalMiddletown HospitalUrine hemoglobin detection by automated test stripOrdered By: Randolph Velasquez on 80-90-3335Aoiazewadq Auto test strip Ql (U)3+NegativeMiddletown HospitalUrine leukocyte esterase detection by automated test stripOrdered By: Randolph Velasquez on 29-87-7758Xrrsiqspn esterase Auto test strip Ql (U)1+Negative [facility] HospitalUrobilinogen Auto test strip (U) [Mass/Vol] Ordered By: Randolph Velasquez on 18-84-0305Frlojysvvnnp (U) [Mass/Vol]Normal mg/dL NormalMiddletown HospitalWBC Auto (Bld) [#/Vol]Ordered By: Randolph Velasquez on 24-56-4853UWH (Bld) [#/Vol]13.0 10*3/uL4.1-10.5FCleveland Clinic Lutheran HospitalpH Auto test strip (U)Ordered By: Randolph Velasquez on 70-48-3907cX (U)5.5 [pH]5.0-9.0M[facility]own HospitalBand form neutrophils/100 WBC Manual cnt (Bld)Ordered By: Lakesha Haskins on 75-08-3338Ddhw form neutrophils/100 WBC (Bld)17 %0-5FC[facility] Luther[facility] HospitalBasophils/100 WBC Manual cnt (Bld)Ordered By: Lakesha Haskins on 73-88-7256Ddsegkgub/100 WBC (Bld)0 %0-2FC[facility] Lutheran HospitalEosinophils/100 WBC Manual cnt (Bld)Ordered By: Lakesha Haskins on 33-60-3951Rhfhmzntwry/100 WBC (Bld)0 %1-3FCleveland Clinic Lutheran HospitalLaboratory - Chemistry and Chemistry - challengeOrdered By: Randolph Velasquez on 85-50-2311LQ6 [Moles/Vol]25.3 mmol/L23.0-27.0M[facility] HospitalHCO3 (Bld) [Moles/Vol]24.1 mmol/L23.0-29.0M[facility] HospitalLymphocytes/100 WBC Manual cnt (Bld)Ordered By: Lakesha Haskins on 09-05-2022 Lymphocytes/100 WBC (Bld)8 %18-42[facility] Metamyelocytes/100 WBC Manual cnt (Bld)Ordered By: Lakesha Haskins on 09-05-2022 Metamyelocytes/100 WBC (Bld)1 %0-0M[facility] HospitalMonocytes/100 WBC Manual cnt (Bld)Ordered By: Lakesha Haskins on 37-42-7426Oosconciw/100 WBC (Bld)8 %2-11[facility] HospitalNo Panel InformationOrdered By: Randolph Velasquez on 73-25-5997Irizvsai Blood Base Excess0.3 mmol/L-3.0-3.0[facility] HospitalArterial Blood Oxygen Content8.3 mmol/L6.6-9.7FCleveland Clinic Lutheran HospitalArterial Blood Oxygen Rbfjleijqo78.6 %95.0-100.0M[facility] HospitalArterial Blood Partial Pressure CO236.7 mm[Hg]35.0-45.0 [facility] HospitalArterial Blood Partial Pressure O275.3 mm[Hg] 80.0-100.0M[facility] HospitalArterial Blood pH7.447.35-7.45 [facility] HospitalBlood Gas Critical ValueSee commentMiddletown HospitalComment on above:Critical Value called on: 09/05/2022 at 11:59Blood Gas Liter Flow2 L/minMiddletown HospitalBlood Gas Sample SiteRight brachialMiddletown HospitalFiO232 %[facility] HospitalOxygen Delivery DeviceNasal cannulaMercy Health – The Jewish Hospitalegmented neutrophils/100 WBC Manual cnt (Bld)Ordered By: Lakesha Haskins on 19-35-7506Bsiwzvwbh neutrophils/100 WBC (Bld)66 %50-70M[facility] HospitalTroponin I.cardiac [Mass/volume] in Serum or Plasma by High sensitivity methodOrdered By: Lakesha Haskins on 17-24-2513Qbgfkspt I.cardiac High sensitivity method [Mass/Vol]97 pg/mL0-20[facility] Comment on above:Results calledat 0640 on 09/05/22ACETONE SERUMon 09-04-2022 [address]ONENegativeNormalNEGATIVEThe [facility] HospitalComment on above:Performed By: #### ACETON #### [facility] [address] [place], [place] [address] Dr. Luis Manuel Bates 39-36-2849Afutcezbxtw peptide B (Bld) [Mass/Vol]1464.0 pg/mLNormal<=1,800.0The [facility] HospitalComment on above:Performed By: #### VITAD #### [facility] [address] [place] [address] Dr. Luis Manuel Denton W MANUAL DIFFon 46-47-6389AFMFLJPV LYMPH #NormalThe [facility]oughton HospitalComment on above:Performed By: #### RENETTA #### [facility] [address] [place] [address] Dr. Luis Manuel AsherATYPICAL LYMPH %NormalThe Broughton HospitalComment on above: Performed By: #### RENETTA #### [facility] [address] [place] [address] Dr. Luis Manuel Maravilla #0.7 103/ulCritically high0.0-0.3The [facility] Comment on above:Performed By: #### RENETTA #### [facility] [address] [place] [address] Dr. Luis Manuel Maravilla %6 %Critically high0-5The [facility] HospitalComment on above: Performed By: #### RENETTA #### [facility] [address] [place] [address] Dr. Luis Manuel Gerard #0.00 103/ulNormal0.00-0.10The [facility] Charles HospitalComment on above:Performed By: #### RENETTA #### [facility] [address] [place] [address] Dr. Luis Manuel Gerard %0.0 %Critically low0.2-2.0The [facility] HospitalComment on above:Performed By: #### RENETTA #### [facility] [address] [place] [address] Dr. Luis Manuel Moncada #NormalThe [facility]oughton HospitalComment on above:Performed By: #### RENETTA #### [facility] [address] [place] [address] Dr. Luis Manuel Moncada %NormalMercy Health Lorain Hospital HospitalComment on above:Performed By: #### RENETTA #### [facility] [address] [place] [address] Dr. Luis Manuel AsherCORRECTED WBCNormal4.0-11.0The [facility] HospitalComment on above: Performed By: #### RENETTA #### [facility] [address] [place] [address] Dr. Luis Manuel Peoples #0.00 103/ulNormal0.00-0.70The [facility] HospitalComment on above:Performed By: #### RENETTA #### [facility] [address] [place] [address] Dr. Luis Manuel Peoples%0.0 %Critically low0.9-7.0The [facility] HospitalComment on above:Performed By: #### RENETTA #### [facility] [address] [place] [address] Dr. Luis Manuel AcevedoT41.3 %Critically low42.0-54.0The [facility] HospitalComment on above:Performed By: #### RENETTA #### [facility] [address] [place] [address] Dr. Luis Manuel AsherHGB13.6 g/dlCritically low14.0-18.0The [facility] HospitalComment on above:Performed By: #### RENETTA #### [facility] [address] [place] [address] Dr. Luis Manuel Nelson #0.79 103/ulCritically low1.20-3.80The [facility] Comment on above:Performed By: #### RENETTA #### [facility] [address] [place] [address] Dr. Luis Manuel Nelson%7.0 %Critically low20.5-60.0The [facility] HospitalComment on above:Performed By: #### RENETTA #### [facility] [address] [place] [address] Dr. Luis Manuel MartinezH30.4 zpQwelfl52.9-34.0The [facility] HospitalComment on above: Performed By: #### CBCYAMILETH #### [facility] [address] [place] [address] Dr. Luis Manuel MartinezHC32.9 g/mmStztya45.9-35.2The [facility] HospitalComment on above:Performed By: #### RENETTA #### [facility] [address] [place] [address] Dr. Luis Manuel MartinezV92.2 hLPdylhl43.0-94.0The [facility] HospitalComment on above: Performed By: #### RENETTA #### [facility] [address] [address] [address] Luis Manuel SalcidoOCYTE #NormalTrihealthComment on above: Performed By: #### RENETTA #### [facility] [address] [address] [address] Luis Manuel SalcidoOCYTE %NormalMercy Health Lorain Hospital HospitalComment on above: Performed By: #### RENETTA #### [facility] [address] [address] [address] Luis Manuel Beinto#1.36 103/ulCritically high0.30-0.80The [facility] on above:Performed By: #### RNEETTA #### [facility] [address] [place] [address] Dr. Luis Manuel Benito%12.0 %Normal1.7-12.0The [facility] HospitalComment on above: Performed By: #### RENETTA #### [facility] [address] [place] [address] Dr. Luis Manuel AsherMPV10.0 fLNormal9.5-13.5The [facility] HospitalCommclaren northern [place] on above: Performed By: #### RENETTA #### [facility] [address] [place] [address] Dr. Luis Manuel Haro #NormalTrihealthComment on above:Performed By: #### RENETTA #### [facility] [address] [place] [address] Dr. Luis Manuel WolfOCYTE %NormalTrihealthComment on above:Performed By: #### RENETTA #### [facility] [address] [place] [address] Dr. Luis Manuel AsherNRBCNormalThClermont County HospitalComment on above:Performed By: #### RENETTA #### [facility] [address] [address] [address] Luis Manuel AsherPLT251 103/ixFtdaph682-141Upt [facility] HospitalComment on above: Performed By: #### CBCMAN #### [facility] [address] [address] [address] Luis Manuel DamonC4.48 106/ulCritically low4.70-6.10The [facility] HospitalComment on above:Performed By: #### CBCMAN #### [facility] [address] [address] [address] Luis Manuel AtwoodW13.4 %Lmzeua86.0-15.0The [facility] HospitalComment on above: Performed By: #### CBCYAMILETH #### [facility] [address] [address] [address] Luis Manuel Sánchez #8.47 103/ulCritically high1.40-6.50The [facility] Comment on above:Performed By: #### CBCYAMILETH #### [facility] [address] [place] [address] Dr. Luis Manuel Sánchez %75.0 %Shcyua12.0-75.0The [facility] HospitalComment on above: Performed By: #### CBCYAMILETH #### [facility] [address] [address] [address] Luis Manuel MedleyBC11.3 103/ulCritically high4.0-11.0The [facility] HospitalComment on above:Performed By: #### CBCYAMILETH #### [facility] [address] [place] [address] Dr. Luis Manuel Frazier BLOODon 60-06-4490Vlmswccdqut examination of blood, cultureCulture Observations: NO GROWTH AT [address] [facility] HospitalComment on above:Performed By: #### VITAD #### [facility] [address] [place] [address] Dr. Luis Manuel AsherMicroscopic examination of blood, cultureCulture Observations: NO GROWTH AT [address] [facility] HospitalComment on above:Performed By: #### VITAD #### [facility] [address] [place] [address] Dr. Luis Manuel Pa-19 PCR ([facility])on 60-21-7461ALQH-CoV-2 (COVID-19) RNA ABE+probe Ql (Unsp spec)Not detectedNormalNOT DETECTEDTrihealth Comment on above:Result Comment: When diagnostic testing [...] for this test is supported by the [place] of Health and Human Service's declaration that [...] longer be used).Performed By: #### VITAD #### [facility] [address] [place] [address] Dr. Luis Manuel Stevens A AND B AGon [id number] [facility] HospitalComment on above:Result Comment: Negative for Flu A protein angiten. Infection due to Flu A cannot be ruled out. FluA angiten in the sample may be below the detection limit of the test.Performed By: #### ACETON #### [facility] [address] [place] [address] Dr. Luis Manuel AsherINFLUBNEGHSTELMA [facility] on above: Result Comment: Negative for Flu B protein antigen. Infection due to Flu B cannot be ruled out. FluB antigen in the sample may be below the detection limit of the test.Performed By: #### ACETON #### [facility] [address] [place] [address] Dr. Luis Manuel Dorantes AGNegativeNormalNEGATIVE SEE COMMENTThe [facility] on above:Performed By: #### ACETON #### [facility] [address] [address] [address] Luis Manuel AsherINFLUEKERRI Lechuga AGNegativeNormalNEGATIVE SEE COMMENTThe [facility] HospitalComment on above:Performed By: #### ACETON #### [facility] [address] [place] [address] Dr. Luis Manuel AsherLACTATE/LACTIC ACIDon 98-22-0039Kuoalga [Moles/Vol]4.0 mmol/L Critically high0.4-1.9The [facility] HospitalComment on above:Performed By: #### LACT #### [facility] [address] [place] [address] Dr. Luis Manuel AsherLaboratory - Chemistry and Chemistry - challengeOrdered By: Lakesha Haskins on 93-60-0022Lcaozlnagcp peptide B (Bld) [Mass/Vol]200.0 pg/mL5-100 [facility] HospitalMyelocytes/100 WBC Manual cnt (Bld)Ordered By: Lakesha Haskins on 08-67-3887Svqictvble/100 WBC (Bld)4 %0-0[facility]own HospitalPOINT OF CARE GLUCOSEon 68-75-1584Mhvacon [Mass/Vol]362 mg/dL Critically irvx70-835Uoj [facility] HospitalComment on above:Performed By: #### POCGLUC #### [facility] [address] [place] [address] Dr. Luis Manuel AsherGlucose [Mass/Vol]352 mg/dLCritically qobq82-705Wjx [facility] HospitalComment on above:Performed By: #### VITAD #### [facility] [address] [place] [address] Dr. Luis Manuel AsherPROF 14(COMP METB)on 78-16-5324Ypkqgzg [Mass/Vol]2.6 g/dL Critically low3.4-5.0The [facility] HospitalComment on above:Performed By: #### VITAD #### [facility] [address] [place] [address] Dr. Luis Manuel AsherAlbumin/Globulin [Mass ratio]0.5 {ratio}NormalThe [facility] HospitalComment on above:Performed By: #### VITAD #### [facility] [address] [address] [address] Luis Manuel Colin [Catalytic activity/Vol]163 U/LCritically covr65-801Qgi [facility] HospitalComment on above:Performed By: #### VITAD #### [facility] [address] [address] [address] Luis Manuel CadenaT [Catalytic activity/Vol]98 U/LCritically zvkn95-65Sjo [facility] HospitalComment on above:Performed By: #### VITAD #### [facility] [address] [address] [address] Luis Manuel Greene gap [Moles/Vol]14.9 mmol/LNormalThe [facility] Comment on above:Performed By: #### VITAD #### [facility] [address] [address] [address] Luis Manuel AsherAST [Catalytic activity/Vol]57 U/LCritically tjpe00-79Qeo [facility] HospitalComment on above:Performed By: #### VITAD #### [facility] [address] [address] [address] Luis Manuel AsherBilirubin [Mass/Vol]0.4 mg/dLNormal0.2-1.0[facility] Comment on above:Performed By: #### VITAD #### [facility] [address] [address] [address] Luis Manuel AsherCalcium [Mass/Vol]9.4 mg/dLNormal8.5-10.1[facility] Comment on above:Performed By: #### VITAD #### [facility] [address] [address] [address] Luis Manuel AsherChloride [Moles/Vol]100 mmol/MFhqtfa50-964Vgk [facility] Comment on above:Performed By: #### VITAD #### [facility] [address] [address] [address] Luis Manuel AsherCO2 [Moles/Vol]27.2 mmol/PIgcudl13.0-32.0The [facility] Comment on above:Performed By: #### VITAD #### [facility] [address] [address] [address] Luis Manuel AsherCreatinine [Mass/Vol]1.45 mg/dLCritically high0.70-1.30The [facility] HospitalComment on above:Performed By: #### VITAD #### [facility] [address] [address] [address] Luis Manuel ClayGFR-AF ELRZQEEE15 mL/min/1.51f4Qthrzejfrd low>=60The [facility] HospitalComment on above:Performed By: #### VITAD #### [facility] [address] [address] [address] Luis Manuel ClayGFR-NON AF KYJFJKWP40 mL/min/1.06o2Sjuspqqiyp low>=60The [facility] HospitalComment on above:Performed By: #### VITAD #### [facility] [address] [place] [address] Dr. Luis Manuel AsherGlobulin (S) [Mass/Vol]4.9 g/dLNormalThe [facility] HospitalComment on above:Performed By: #### VITAD #### [facility] [address] [place] [address] Dr. Luis Manuel AsherGlucose [Mass/Vol]396 mg/dLCritically xocq32-187Pqo [facility] HospitalComment on above:Performed By: #### VITAD #### [facility] [address] [place] [address] Dr. Luis Manuel AsherPotassium [Moles/Vol]4.1 mmol/LNormal3.5-5.1The [facility] Comment on above:Performed By: #### VITAD #### [facility] [address] [place] [address] Dr. Luis Manuel AsherProtein [Mass/Vol]7.5 g/dLNormal6.4-8.2The [facility] Comment on above:Performed By: #### VITAD #### [facility] [address] [address] [address] Luis Manuel AsherSodium [Moles/Vol]138 mmol/GRoeqzo060-694Jdj [facility] Comment on above:Performed By: #### VITAD #### [facility] [address] [address] [address] Luis Manuel Jones nitrogen [Mass/Vol]26.0 mg/dLCritically high7.0-18.0The [facility] HospitalComment on above:Performed By: #### VITAD #### [facility] [address] [address] [address] Luis Manuel AsherUrea nitrogen/Creatinine [Mass ratio]17.9 mg/mgNormalThe [facility] HospitalComment on above:Performed By: #### VITAD #### [facility] [address] [address] [address] Luis Manuel AsherPlasma cells/100 leukocytes in Blood by Manual countOrdered By: Lakesha Haskins on 28-43-2891Occdzh cells/100 WBC Manual cnt (Bld)1 %[address] StreetPromyelocytes/100 WBC Manual cnt (Bld)Ordered By: Lakesha Haskins on 10-76-9434Bsnqkyalkepwb/100 WBC (Bld)1 %[address] StreetTROPONIN, HIGH SENSITIVITYon 91-19-5477ZICVMX287.9 pg/mLCritically high 4.0-76.1The [facility] HospitalComment on above:Result Comment: CUT-OFF POINTS HAVE BEEN ESTABLISHED BASED ON THE FOURTH UNIVERSAL DEFINITIONS OF MYOCARDIAL INFARCTION. THE UPPER REFERENCE LIMIT (URL) OF TROPONIN, DEFINED THE 99TH PERCENTILE OF cTnI DISTRIBUTION IN A REFERENCE POPULATION, HAS BEEN CONFIRMED THE DECISION THRESHOLD FOR MA DIAGNOSIS.Performed By: #### VITAD #### [facility] [address] [address] [address] Luis Manuel Gibson lactic acid measurementOrdered By: Lakesha Haskins on 98-88-2034Bwritgu (U) [Moles/Vol]1.6 mmol/L0.5-2.2FCleveland Clinic Lutheran HospitalXR CHEST 1 Von 67-62-7308HF CHEST 1 VONE-VIEW CHEST RADIOGRAPH, 09/04/2022 4:55 PM EST COMPARISON: Chest, 11/02/2020. CLINICAL HISTORY: SHORTNESS OF BREATH/weakness and confusion. Findings and impression: 1. Some questionable interstitial pulmonary edema suspected. Some underlying inflammatory or infectious pneumonitis cannot be excluded. 2. Borderline heart size. 3. No acute osseous abnormality. Electronically authenticated by: Gael KENNEY Date: 2022-09-04 17:54NormalThClermont County HospitalMICROALBUMIN URINEon 52-82-0569Qyrtsbi, Urine30.0 ug/mLNormal Not Estab.The [facility] HospitalComment on above:Performed By: #### ACETON #### [facility] [address] [address] [address] Luis Manuel Denton AUTO DIFFon [id number] #0.0 103/ulNormal0.0-0.1The [facility] HospitalComment on above:Performed By: #### CBC #### [facility] [address] [place] [address] Dr. Luis Manuel AsherBasophils/100 WBC (Bld)0.5 %Normal0.2-2.0The [facility] Comment on above:Performed By: #### CBC #### [facility] [address] [address] [address] Luis Manuel Montenegro #0.1 103/ulNormal0.0-0.7The [facility] HospitalComment on above: Performed By: #### CBC #### [facility] [address] [place] [address] Dr. Luis Manuel Clayosinophils/100 WBC (Bld)1.4 %Normal0.9-7.0The [facility] Comment on above:Performed By: #### CBC #### [facility] [address] [place] [address] Dr. Luis Manuel Clayrythrocyte distribution width (RBC) [Ratio]13.1 %Eceiec76.0-15.[address] [facility] HospitalComment on above:Performed By: #### CBC #### [facility] [address] [place] [address] Dr. Luis Manuel AsherHematocrit (Bld) [Volume fraction]39.3 %Critically low42.0-54.[address] [facility] HospitalComment on above:Performed By: #### CBC #### [facility] [address] [address] [address] Luis Manuel AsherHemoglobin (Bld) [Mass/Vol]13.3 g/dLCritically low14.0-18.0The [facility] HospitalComment on above:Performed By: #### CBC #### [facility] [address] [place] [address] Dr. Luis Manuel Negron #0.02 10e3/ulNormal0.00-0.03The [facility] HospitalComment on above:Performed By: #### CBC #### [facility] [address] [place] [address] Dr. Luis Manuel Negron %0.3 %Normal0.0-0.5The [facility] HospitalComment on above: Performed By: #### CBC #### [facility] [address] [place] [address] Dr. Luis Manuel Kiran #0.6 103/ulCritically low1.2-3.8The [facility] Comment on above:Performed By: #### CBC #### [facility] [address] [place] [address] Dr. Luis Manuel Joycehocytes/100 WBC (Bld)9.1 %Critically low20.5-60.0The [facility] HospitalComment on above:Performed By: #### CBC #### [facility] [address] [place] [address] Dr. Luis Manuel MarieUAL DIFF REQNONormalThe [facility] HospitalComment on above: Performed By: #### CBC #### [facility] [address] [place] [address] Dr. Luis Manuel Martinez (RBC) [Entitic mass]31.0 sbUqjnfl18.9-34.0The [facility] HospitalComment on above:Performed By: #### CBC #### [facility] [address] [place] [address] Dr. Luis Manuel Martinez (RBC) [Mass/Vol]33.8 g/rKJuikaf32.9-35.2The [facility] HospitalComment on above:Performed By: #### CBC #### [facility] [address] [address] [address] Luis Manuel MartinezV (RBC) [Entitic vol]91.6 pHOkacdq86.0-94.0The [facility] HospitalComment on above:Performed By: #### CBC #### [facility] [address] [place] [address] Dr. Luis Manuel Randle #0.7 103/ulNormal0.3-0.8The [facility] HospitalComment on above:Performed By: #### CBC #### [facility] [address] [place] [address] Dr. Luis Manuel Hassanocytes/100 WBC (Bld)10.3 %Normal1.7-12.0The [facility] Comment on above:Performed By: #### CBC #### [facility] [address] [place] [address] Dr. Luis Manuel PhanUT #5.0 103/ulNormal1.4-6.5The [facility] HospitalComment on above:Performed By: #### CBC #### [facility] [address] [place] [address] Dr. Luis Manuel Phanutrophils/100 WBC (Bld)78.4 %Critically high43.0-75.0The [facility] HospitalComment on above:Performed By: #### CBC #### [facility] [address] [place] [address] Dr. Luis Manuel Chunlet mean volume (Bld) [Entitic vol]9.7 fLNormal9.5-13.5The [facility] HospitalComment on above:Performed By: #### CBC #### [facility] [address] [place] [address] Dr. Luis Manuel AsherPLT148 103/ulCritically qvo563-377Wrw [facility] HospitalComment on above:Performed By: #### CBC #### [facility] [address] [place] [address] Dr. Luis Manuel AsherRBC4.29 106/ulCritically low4.70-6.10The [facility] HospitalComment on above:Performed By: #### CBC #### [facility] [address] [address] [address] Luis Manuel AsherWBC6.4 103/ulNormal4.0-11.0The [facility] HospitalComment on above: Performed By: #### CBC #### [facility] [address] [address] [address] Luis Manuel AsherGLYCOHEMOGLOBIN A1Con 64-21-0466MNP RECOMMENDATIONSEE BELOWNormal The [facility] HospitalComment on above:Result Comment: ADA RECOMMENDED LIMIT 4.0 - 6.0 ADA THERAPEUTIC TARGET < 7.0 ACTION SUGGESTED > 7.0Performed By: #### ACETON #### [facility] [address] [place] [address] Dr. Luis Manuel AsherGlucose [Mass/Vol]169 mg/dLNormalThe [facility] HospitalComment on above:Performed By: #### ACETON #### [facility] [address] [place] [address] Dr. Luis Manuel AsherHbA1c (Bld) [Mass fraction]7.5 %Critically high4.5-6.2The [facility] HospitalComment on above:Performed By: #### ACETON #### [facility] [address] [place] [address] Dr. Luis Manuel AsherPROF CHEM 8 (BAS METB)on 18-29-2135Ifrdh gap [Moles/Vol]7.8 mmol/LNormalThe [facility] HospitalComment on above:Performed By: #### BMP #### [facility] [address] [place] [address] Dr. Luis Manuel AsherCalcium [Mass/Vol]8.3 mg/dLCritically low8.5-10.1The [facility] HospitalComment on above:Performed By: #### BMP #### [facility] [address] [place] [address] Dr. Luis Manuel AsherChloride [Moles/Vol]97 mmol/LCritically gku69-764Qlj [facility] HospitalComment on above:Performed By: #### BMP #### [facility] [address] [address] [address] Luis Manuel AsherCO2 [Moles/Vol]29.6 mmol/ZWgxmoc46.0-32.0The [facility] Comment on above:Performed By: #### BMP #### [facility] [address] [address] [address] Luis Manuel AsherCreatinine [Mass/Vol]1.36 mg/dLCritically high0.70-1.30The [facility] HospitalComment on above:Performed By: #### BMP #### [facility] [address] [address] [address] Issa ChangEGFR-AF LEBANESE>60Normal>=60The [facility] HospitalComment on above:Performed By: #### BMP #### [facility] [address] [place] [address] Dr. Luis Manuel ClayGFR-NON AF JMTWUAKN46 mL/min/1.17r5Lzxufnuarn low>=60The [facility] HospitalComment on above:Performed By: #### BMP #### [facility] [address] [place] [address] Dr. Luis Manuel AsherGlucose [Mass/Vol]331 mg/dLCritically unso42-514Pek [facility] HospitalComment on above:Performed By: #### BMP #### [facility] [address] [place] [address] Dr. Luis Manuel AsherPotassium [Moles/Vol]4.4 mmol/LNormal3.5-5.1The [facility] Comment on above:Performed By: #### BMP #### [facility] [address] [address] [address] Luis Manuel AsherSodium [Moles/Vol]130 mmol/LCritically caw840-060Tqs [facility] HospitalComment on above:Performed By: #### BMP #### [facility] [address] [address] [address] Luis Manuel AsherUrea nitrogen [Mass/Vol]15.0 mg/dLNormal7.0-18.0The [facility] HospitalComment on above:Performed By: #### BMP #### [facility] [address] [address] [address] Luis Manuel AsherUrea nitrogen/Creatinine [Mass ratio]11.0 mg/mgNoMarymount HospitalComment on above:Performed By: #### BMP #### [facility] [address] [address] [address] Luis Manuel AsherFERRITINon 36-21-0448Dwxcbgcu [Mass/Vol]57.0 ng/mLNormal 17.9-464.0The [facility] Charles HospitalComment on above:Performed By: #### FERR #### [facility] [address] [address] [address] Luis Manuel AsherGLYCOHEMOGLOBIN A1Con [id number] RECOMMENDATIONADA THERAPEUTIC TARGET 6.0 - 7.0 ACTION SUGGESTED > 7.0NoMarymount HospitalComment on above:Performed By: #### A1C #### [facility] [address] [place] [address] Dr. Luis Manuel AsherGlucose [Mass/Vol]146 mg/dLNoMarymount HospitalComment on above:Performed By: #### A1C #### [facility] [address] [place] [address] Dr. Luis Manuel AsherHbA1c (Bld) [Mass fraction]6.7 %Critically high<=6.0The [facility] Charles HospitalComment on above:Performed By: #### A1C #### [facility] [address] [place] [address] Dr. Luis Manuel Denton AUTO DIFFon [id number] #0.0 103/ulNormal0.0-0.1The [facility] Charles HospitalComment on above:Performed By: #### VITAD #### [facility] [address] [address] [address] Luis Manuel AsherBasophils/100 WBC (Bld)0.6 %Normal0.2-2.0The [facility] Comment on above:Performed By: #### VITAD #### [facility] [address] [address] [address] Issa ChangEO #0.2 103/ulNormal0.0-0.7The [facility] Charles HospitalComment on above: Performed By: #### VITAD #### [facility] [address] [place] [address] Dr. Luis Manuel Clayosinophils/100 WBC (Bld)2.9 %Normal0.9-7.0The [facility] Comment on above:Performed By: #### VITAD #### [facility] [address] [place] [address] Dr. Luis Manuel Clayrythrocyte distribution width (RBC) [Ratio]13.1 %Zfjmoz45.0-15.[address] Charles HospitalComment on above:Performed By: #### VITAD #### [facility] [address] [place] [address] Dr. Luis Manuel AsherHematocrit (Bld) [Volume fraction]42.3 %Mphzob49.0-54.0The [facility] Charles HospitalComment on above:Performed By: #### VITAD #### [facility] [address] [place] [address] Dr. Luis Manuel AsherHemoglobin (Bld) [Mass/Vol]14.0 g/pBKklwzh82.0-18.0The [facility] Charles HospitalComment on above:Performed By: #### VITAD #### [facility] [address] [place] [address] Dr. Luis Manuel Negron #0.02 10e3/ulNormal0.00-0.03The [facility] Charles HospitalComment on above:Performed By: #### VITAD #### [facility] [address] [place] [address] Dr. Luis Manuel Negron %0.4 %Normal0.0-0.5The [facility] Charles HospitalComment on above: Performed By: #### VITAD #### [facility] [address] [place] [address] Dr. Luis Manuel Kiran #0.8 103/ulCritically low1.2-3.8The [facility] Comment on above:Performed By: #### VITAD #### [facility] [address] [place] [address] Dr. Luis Manuel Perezmphocytes/100 WBC (Bld)15.5 %Critically low20.5-60.0The [facility] Charles HospitalComment on above:Performed By: #### VITAD #### [facility] [address] [place] [address] Dr. Luis Manuel Self DIFF REQNONormalThe [facility] Charles HospitalComment on above: Performed By: #### VITAD #### [facility] [address] [place] [address] Dr. Luis Manuel Martinez (RBC) [Entitic mass]30.5 neExixhl85.9-34.0The [facility] Charles HospitalComment on above:Performed By: #### VITAD #### [facility] [address] [place] [address] Dr. Luis Manuel Martinez (RBC) [Mass/Vol]33.1 g/sOJoxoqy51.9-35.2The [facility] Charles HospitalComment on above:Performed By: #### VITAD #### [facility] [address] [place] [address] Dr. Luis Manuel Martinez (RBC) [Entitic vol]92.2 lGQzpmsa81.0-94.0The [facility] Charles HospitalComment on above:Performed By: #### VITAD #### [facility] [address] [place] [address] Dr. Luis Manuel Randle #0.5 103/ulNormal0.3-0.8The [facility] HospitalComment on above:Performed By: #### VITAD #### [facility] [address] [place] [address] Dr. Luis Manuel Hassanocytes/100 WBC (Bld)10.0 %Normal1.7-12.0The [facility] Comment on above:Performed By: #### VITAD #### [facility] [address] [place] [address] Dr. Luis Manuel Devi #3.6 103/ulNormal1.4-6.5The [facility] HospitalComment on above:Performed By: #### VITAD #### [facility] [address] [place] [address] Dr. Luis Manuel AsherNeutrophils/100 WBC (Bld)70.6 %Glxrdp25.0-75.0The [facility] on above:Performed By: #### VITAD #### [facility] [address] [place] [address] Dr. Luis Manuel AsherPlatelet mean volume (Bld) [Entitic vol]10.1 fLNormal9.5-13.5The [facility] HospitalComment on above:Performed By: #### VITAD #### [facility] [address] [place] [address] Dr. Luis Manuel AsherPLT161 103/wjMbzwfu133-727Zyz [facility] on above: Result Comment: smear reviewed for plateletsPerformed By: #### VITAD #### [facility] [address] [place] [address] Dr. Luis Manuel AsherRBC4.59 106/ulCritically low4.70-6.10The [facility] HospitalCommclaren [place] on above:Performed By: #### VITAD #### [facility] [address] [place] [address] Dr. Luis Manuel AsherWBC5.1 103/ulNormal4.0-11.0The [facility] on above: Performed By: #### VITAD #### [facility] [address] [place] [address] Dr. Luis Manuel AsherPROF 14(COMP METB)on 40-89-5618Ujweqlx [Mass/Vol]3.9 g/dLNormal 3.5-5.0The [facility] Charles HospitalComment on above:Performed By: #### TSH, CMP #### [facility] [address] [place] [address] Dr. Luis Manuel AsherAlbumin/Globulin [Mass ratio]1.2 {ratio}NormalThe [facility] on above:Performed By: #### TSH, CMP #### [facility] [address] [place] [address] Dr. Luis Manuel CadenaP [Catalytic activity/Vol]85 U/MJatxet86-308Wxq [facility] Charles HospitalComment on above:Performed By: #### TSH, CMP #### [facility] [address] [address] [address] Luis Manuel Gurrola [Catalytic activity/Vol]28 U/NOwnjeo89-15Hna [facility] HospitalComment on above:Performed By: #### TSH, CMP #### [facility] [address] [address] [address] Luis Manuel Quanon gap [Moles/Vol]8.6 mmol/LNormalThe [facility] HospitalComment on above:Performed By: #### TSH, CMP #### [facility] [address] [place] [address] Dr. Luis Manuel AsherAST [Catalytic activity/Vol]14 U/LCritically kie34-07Bzi [facility] HospitalComment on above:Performed By: #### TSH, CMP #### [facility] [address] [place] [address] Dr. Luis Manuel AsherBilirubin [Mass/Vol]0.4 mg/dLNormal0.2-1.3TOhioHealth [facility] Comment on above:Performed By: #### TSH, CMP #### [facility] [address] [place] [address] Dr. Luis Manuel AsherCalcium [Mass/Vol]9.7 mg/dLNormal8.4-10.2[facility] Comment on above:Performed By: #### TSH, CMP #### [facility] [address] [place] [address] Dr. Luis Manuel AsherChloride [Moles/Vol]99 mmol/MUdbnun92-759Rhm [facility] Comment on above:Performed By: #### TSH, CMP #### [facility] [address] [place] [address] Dr. Luis Manuel AsherCO2 [Moles/Vol]32.2 mmol/LCritically high22.0-30.0The [facility] HospitalComment on above:Performed By: #### TSH, CMP #### [facility] [address] [place] [address] Dr. Yilan ChangCreatinine [Mass/Vol]1.20 mg/dLNormal0.66-1.25The [facility] Charles HospitalComment on above:Performed By: #### TSH, CMP #### [facility] [address] [place] [address] Dr. Luis Manuel ClayGFR-AF LEBANESE>60Normal>=60The [facility] HospitalComment on above:Performed By: #### TSH, CMP #### [facility] [address] [address] [address] Luis Manuel ClayGFR-NON AF EXIHYBRL31 mL/min/1.63y7Vmlbqowcwh low>=60The [facility] HospitalComment on above:Performed By: #### TSH, CMP #### [facility] [address] [place] [address] Dr. Luis Manuel AsherGlobulin (S) [Mass/Vol]3.2 g/dLNormalThe [facility] Charles HospitalComment on above:Performed By: #### TSH, CMP #### [facility] [address] [place] [address] Dr. Luis Manuel AsherGlucose [Mass/Vol]135 mg/dLCritically akam36-116BhjTrihealthComment on above:Performed By: #### TSH, CMP #### [facility] [address] [place] [address] Dr. Luis Manuel AsherPotassium [Moles/Vol]4.8 mmol/LNormal3.4-5.0[facility] Comment on above:Performed By: #### TSH, CMP #### [facility] [address] [place] [address] Dr. Luis Manuel AsherProtein [Mass/Vol]7.1 g/dLNormal6.1-8.2[facility] Comment on above:Performed By: #### TSH, CMP #### [facility] [address] [place] [address] Dr. Luis Manuel AsherSodium [Moles/Vol]135 mmol/LCritically oos628-804Feh [facility] HospitalComment on above:Performed By: #### TSH, CMP #### [facility] [address] [place] [address] Dr. Luis Manuel Jones nitrogen [Mass/Vol]19.0 mg/dLNormal9.0-20.0TrihealthComment on above:Performed By: #### TSH, CMP #### [facility] [address] [place] [address] Dr. Luis Manuel Jones nitrogen/Creatinine [Mass ratio]15.8 mg/mgNoMarymount HospitalComment on above:Performed By: #### TSH, CMP #### [facility] [address] [place] [address] Dr. Luis Manuel GuzmanHocatrachita 52-06-3787DPO6.146 uIU/mLNormal0.470-4.680The [facility] HospitalCommclaren [facility] [place] on above:Performed By: #### VITAD #### [facility] [address] [place] [address] Dr. Luis Manuel Guzman GALI BELOWAshtabula County Medical CenterComment on above: Result Comment: <0.34 UIU/ml HYPERTHYROID 0.34-5.60 UIU/ml EUTHYROID >5.60 UIU/ml HYPOTHYROIDPerformed By: #### VITAD #### [facility] [address] [place] [address] Dr. Luis Manuel AsherVITAMIN D 25 OHon 01-42-4790GRE D 25-OH84.6 ng/mLNormalTrihealthCommclaren northern [place] on above:Performed By: #### VITAD #### [facility] [address] [place] [address] Dr. Luis Manuel TALBERTValentine Fostoria City HospitalComment on above: Result Comment: <20 ng/mL Vit D deficient 20 - <30 ng/mL Vit D insufficient 30 - 100 ng/mL Vit D sufficient >100 ng/mL Potential ToxicityPerformed By: #### VITAD #### [facility] [address] [place] [address] Dr. Luis Manuel Asher Vital Signs Date TimeVital SignValuePerforming EewbgtxlvVivrbokt97-54-8620 11:59-0400Body evukmt491.34 cmBenjamin Ball DO Work Phone: [phone])[address]09-16-2025 11:59-0400 Body mass index (BMI) [Ratio]33 kg/v1Cbwzvrhp Ball DO Work Phone: [phone])[address] [place], [place] 1247109-16-2025 11:59-0400 Body .55 kgBenjamin Ball DO Work Phone: [phone])[address] [place], [place] 1247109-16-2025 11:59-0400 Diastolic blood zafcseqr94 mm[Hg]Erich Ball DO Work Phone: [phone])[address] [place], [place] 1247109-16-2025 11:59-0400 Heart rate89 /minBenjamin Ball DO Work Phone: [phone])[address] [place], [place] 1247109-16-2025 11:59-0400 Respiratory rate12 /minBenjamin Ball DO Work Phone: [phone])[address] [place], [place] 1247109-16-2025 11:59-0400 Systolic blood odexyehe749 mm[Hg]Erich Ball DO Work Phone: [phone])[address] [place], [place] 1247108-22-2025 11:00-0400 Body .34 cmBenjamin Ball DO Work Phone: 1(970)[address] [place], [place] 1247108-22-2025 11:00-0400 Body mass index (BMI) [Ratio]33.2 kg/q6Fduuwxuq Ball DO Work Phone: 1(855)[address] [place], [place] 1247108-22-2025 11:00-0400 Body ybvuxg261.95 kgBenjamin Ball DO Work Phone: [phone])[address] [place], [place] 1247108-22-2025 11:00-0400 Diastolic blood qjmdbzav97 mm[Hg]Erich Ball DO Work Phone: [phone])[address] [place], [place] 12[address]108-22-2025 11:00-0400 Heart rate88 /minBenjamin Ball DO Work Phone: [phone])[address] [place], [place] 1247108-22-2025 11:00-0400 Respiratory rate14 /minBenjamin Ball DO Work Phone: [phone])[address]08-22-2025 11:00-0400 SaO2% (BldA) [Mass fraction]98 %Erich Ball DO Work Phone: [phone])[address] [place], [place] 1247108-22-2025 11:00-0400 Systolic blood eveahvne672 mm[Hg]Erich Ball DO Work Phone: [phone])[address] [place], [place] 1247108-11-2025 13:00-0400 Body irxmap317.34 cmBenjamin Ball DO Work Phone: 1(419)[address] [place], [place] 1247108-11-2025 13:00-0400 Body mass index (BMI) [Ratio]33.5 kg/v2Nanctpbn Ball DO Work Phone: 1(419)[address] [place], [place] 1247108-11-2025 13:00-0400 Body kyusmb194.86 kgBenjamin Ball DO Work Phone: [phone])[address] [place], [place] 1247108-11-2025 13:00-0400 Diastolic blood yhoekmyg88 mm[Hg]Erich Ball DO Work Phone: 1(419)[address] [place], [place] 1247108-11-2025 13:00-0400 Heart rate84 /minBenjamin Ball DO Work Phone: 1(014)[address] [place], [place] 1247108-11-2025 13:00-0400 Respiratory rate16 /minBenjamin Ball DO Work Phone: 1(419)[address] [place], [place] 1247108-11-2025 13:00-0400 SaO2% (BldA) [Mass fraction]93 %Erich Ball DO Work Phone: 1(419)[address] [place], [place] 1247108-11-2025 13:00-0400 Systolic blood dacujspi272 mm[Hg]Erich Ball DO Work Phone: [phone])[address] [place], [place] 1247105-22-2025 10:36-0400 Body fmjovv176.88 cmBenjamin Ball DO Work Phone: [phone])[address] [place], [place] 1247105-22-2025 10:36-0400 Body mass index (BMI) [Ratio]33.3 kg/s8Pkbmjsqp Ball DO Work Phone: 1(419)[address] [place], [place] 1247105-22-2025 10:36-0400 Body .35 kgBenjamin Ball DO Work Phone: 1(419)[address] [place], [place] 1247105-22-2025 10:36-0400 Diastolic blood glkdgzli10 mm[Hg]Erich Ball DO Work Phone: 1(419)[address]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 57-28-3026xwnpqcepxzOjuaifvq Ball Other [employer] Other Start: 23-40-1825Qmwynvdhj encounterBenjamin BallFPG [facility] ClinicStart: 05-08-2023 End: 84-38-2765wsudftaywyBvnqsjmp Ball Other [employer] Other Start: 76-77-9389Fdbwkdg encounter procedureBenjamin BallFPG [facility] ClinicStart: 04-22-2023 End: 86-52-3499fsrpqvpociWraklhgn Ball Other [employer] Other Start: 68-41-3237Pbcihctkc encounterBenjamin BallFPG [facility] ClinicStart: 03-20-2023 End: 98-01-3477vsouxytcfhRcowclxk Ball Other [facility] [employer] Other Start: 31-87-5882Vsinexx evaluation of patient and reportBenjamin BallFPG [facility] ClinicStart: 16-51-9382Pvtldm outpatient visit 15 minutesBenjamin E Ball Work Phone: [phone]-Yfqsx [place] [facility] 250 DO Work Phone: Start: 72-11-5201ptumgsubeyYJ CATHLEEN LOPEZ Facility:[id number]: 02-14-2023 End: 37-94-7467dkyvsxjhpyDffwtbik Ball Other [employer] Other Start: 30-73-2778Hcuphknkn encounterBenjamin BallFPG [facility] ClinicStart: 02-13-2023 End: 64-05-3363axcenboxfgMdhlbrdz Ball Other [facility] [employer] Other Start: 67-65-9029Qcgapvlht encounterBenjamin BallFPG [facility] ClinicStart: 02-11-2023 End: 16-80-6380uyzxmeohmlStawba Burnette Other [employer] Other Start: 56-51-2074Oftrmbj evaluation of patient and reportMarcia BraunFPG [facility] ClinicStart: 02-05-2023 End: 16-98-2675rztsxzsvvyInbsmcjl Ball Other [facility] [employer] Other Start: 48-39-9983Aeqzlo outpatient visit 25 minutes Erich BallFPG [facility] ClinicStart: 01-10-2023 End: 50-50-5455mosjntvveuZidjyjls Ball Other [employer] Other Start: 87-82-4236Uabizfb evaluation of patient and reportBehuy Alejandro Medical ClinicStart: 19-60-2788Gnthxvgwb encounter Erich Alejandro [facility] ClinicStart: 56-88-0091Bpnqhi outpatient visit 25 minutesBenjamin E Ball Work Phone: [phone]-Pfuks [place] [facility] 250 DO Work Phone: Start: 19-48-9774yhqyasbiwdUH CATHLEEN LOPEZ Facility:[id number]: 10-21-4923yxiytduawyFv. Cathleen Blackmonjosuécility:[id number]: 94-01-5603Mqgxptq encounter procedureBenjamin E Ball Work Phone: [phone]-Sqyxv [place] [facility] [address] [place] Work Phone: Start: 72-13-4855ohbfgqgqwmQgRl Cathleen Lopez Facility:[id number]: 12-03-2022 End: 79-57-0378eyuhrodvylQvrpjzcf Ball Other [employer] Other Start: 73-22-5004Stwhusyzi encounterBehuy Alejandro Medical ClinicStart: 11-21-2022 End: 61-33-7421nvkxwvcpojZlgmxsok Ball Other [employer] Other Start: 33-46-0633Pxnprc outpatient visit 25 minutes Erich Ale[facility] ClinicStart: 64-60-5575Sltugq consultation new/estab patient 60 minBenjamin E Ball Work Phone: [phone]-Crebx [facility] 250 DO Work Phone: Start: 48-61-8107Lwdzrgi encounter procedureBenjamin E Ball Work Phone: [phone]-Ktmql [place] [facility] 250 DO Work Phone: start: 60-34-0276tqlwsutcreNI CATHLEEN LOPEZ Facility:[id number]: 10-26-2022 End: 39-94-5836bzxxaxphpdUunvttew Ball Other noRevolucionadolabs [employer] Other Start: 22-86-9208Gnvopg outpatient visit 25 minutes Erich BallFPG [facility] ClinicStart: 10-07-2022 End: 84-49-7846nxxssfocccGucxshey Ball Other [facility] [employer] Other Start: 69-34-5259Devdzvnnf encounterBenjamin BallFP[facility] ClinicStart: 10-03-2022 End: 57-66-6364zrwraxomlxAihxdsop Ball Other noRevolucionadolabs [employer] Other Start: 27-71-5875Qfwlockcy encounterBenjamin BallFPG [facility] ClinicStart: 09-25-2022 End: 54-86-4078lwfckmuujaDeadrdsk Ball Other [facility] [employer] Other Start: 98-08-5841Bytylpodl encounterBenjamin BallFPG [facility] ClinicStart: 09-19-2022 End: 53-82-6331Quk-Silvio VelasquezinExtended Care Start: 09-10-2022 End: 62-19-0487vocwqoayzxFxeoccbt Ball Other noRevolucionadolabs [employer] Other Start: 02-33-8716Vaqgzozcc encounterBenjamin BallFPG [facility] ClinicStart: 09-10-2022 End: 66-25-4744Qsv-SitePascual PRINCE [facility] Start: 09-08-2022 End: 78-49-8373Xtyvhjangu and management of inpatientJejason PRINCE [facility] Start: 09-05-2022 End: 57-68-0434hlsnbafntcHoqehmcw Ball Other [facility] [employer] Other Start: 42-96-4936Txfuzwosa encounterBensandi AlejandroNort Hojo.plrt: 81-45-9577fsbxmysxozCk. Erich Alejandro Facility:[id number]: 09-04-2022 End: 39-23-2034Czukqygram and management of inpatientDO Erich Alejandro Work Phone: [facility] [place] [facility] Work Phone: Start: 09-04-2022 End: 51-54-0625nfgcwgtoufRW ERICH BALLFacility:U6Oizrl: 04-24-2022 End: 18-94-7490jadjiyfejvEW ERICH BALLFacility:Y7Hsppq: 02-67-8744Usdgh health examinationBehuy Alejandro Other [facility] [employer] Other Start: 11-29-2021 End: 30-42-5991okgqztrwmoFM ERICH ALEJANDROFacility:P6Izhkb: 10-30-2021 End: 94-97-4928eerswtubucFD ERICH ALEJANDROFacility:H1 Procedures DateProcedureProcedure DetailPerforming ClinicianStart: 76-90-3293Pjmr marrow samplingBensandi Ball DO Work Phone: Start: 33-93-4652KM of abdomen and pelvis without contrastBenelielmin Ball DO Work Phone: Start: 68-33-4471Pdfretm ultrasonography of bilateral carotid arteriesBensandi Ball DO Work Phone: Start: 82-17-9365TIOR Antigen (LFIA)DO Erich Alejandro Work Phone: Start: 11-78-5784EC of thorax with contrastDO Erich Alejandro Work Phone: Start: 70-25-0302Nmofu chest X-rayDO Erich doUdeal Work Phone: Start: 65-04-4726Pfxc reduction of fracture with internal fixationPascual PRINCE Comment on above:HUMERAL SHAFT WITH EXTENSION OF HUMERAL HEAD.Start: 12-29-5218Mhgz upper arm structure (body structure)Pascual PRINCE Start: 16-00-0854Fmpcgauyhbpanpfau with dilation of urethral stricturePascual PRINCE Start: 47-33-3517Qvnoewgexsdol prostatectomyJejason PRINCE Cataract surgeryBenjamin E Ball Work Phone: Depression screeningBenjamin Ball Other Operation on colonBenjamin E Ball Work Phone: Surgical repair of upper extremityBenjamin E Ball Work Phone: TonsillectomyPascual PRINCE TonsillectomyBenjamin E Ball Work Phone: Total colectomyPascual PRINCE Total colonoscopyBenjamin E Ball Work Phone: Plan of Treatment DateCare ActivityDetailAuthorStart: 04-12-2025 End: 52-50-5103Ilnefmt encounter crfieljva49/11/2025 1:00 PM EDT Office Visit [facility] [address] [place] [address] Gracia Brady NP [address] [place] [id number] KI GHOSHtart: 10-22-2024 End: 19-65-8696OdpqytuzyMercy Health – The Jewish Hospitaltart: 70-38-1016Xlmk marrow samplingMercy Health – The Jewish Hospitaltart: 92-28-9048Qbky marrow sampling [facility]: 27-09-4276UcgsdryptMercy Health – The Jewish Hospitaltart: 02-50-0897LhtxwsxajMercy Health – The Jewish Hospitaltart: 10-11-2024 Referral to hematologistMercy Health – The Jewish Hospitaltart: 10-10-2024 [facility]: 15-51-0355Yytgzldu to commercial representative [facility]: 95-61-6820Iuwzxtmn admissionMercy Health – The Jewish Hospitaltart: 10-05-2024 End: 50-29-2586Yinqjke encounter procedureNOOHIOHEALTH SHELBY [facility] ROUTEComment on above:ArrivedStart: 07-06-2024 End: 56-47-8203Pdjludt encounter oaxexbeti25/04/2024 1:00 PM EST Office Visit [facility] [address] [place] [address] Jailyn Sepulveda NP [address] [place], [place] [id number] ArrivedNOOHIOHEALTH SHELBY HOSPITAL ROUTEComment on above:ArrivedStart: 23-07-3639Zrvsgfxjz vaccinationInfluenza Vaccine (#1)[facility] CenterStart: 14-61-2258JFL, Provider: Cathleen Lopez, Status: Pen, Time: 12:45 PMFUV, Provider: Cathleen Lopez, Status: Pen, Time: 12:45 PM[facility] 250 DO Work Phone: Start: 47-00-9604DJH, Provider: Cathleen Lopez, Status: Pen, Time: 2:45 PMFUV, Provider: Cathleen Lopez, Status: Pen, Time: 2:45 PM[facility] 250 DO Work Phone: Start: 60-57-7801UIXV ONLY, Provider: DON COVARRUBIASI NUCLEAR 01,[id number], Status: Pen, Time: 12:30 PMREST ONLY, Provider: DON COVARRUBIASI NUCLEAR 01,[id number], Status: Pen, Time: 12:30 PM[facility] 250 DO Work Phone: Start: 91-87-0453QXHSFVQDI3, Provider: DON HHVI NUCLEAR 01,[id number], Status: Pen, Time: 2:00 PMSTRESSNUC2, Provider: DON HHVI NUCLEAR 01,[id number], Status: Pen, Time: 2:00 PM[facility] 250 DO Work Phone: Start: 90-54-5222JdlhonpkmMiddletown Hospital Start: 54-49-2490Jeofyeee admissionMiddletown Hospital Comprehensive metabolic 1999 panel - Serum or PlasmaMiddletown HospitalComprehenve metabolic 1999 panel - Serum or PlasmaMiddletown HospitalComprehenve metabolic 1999 panel - Serum or [facility] HospitalComprehenve metabolic 1999 panel - Serum or Plasma [facility] HospitalComprehenve metabolic 1999 panel - Serum or PlasmaMiddletown HospitalKaryotype [Identifier] in Unspecified specimen NominalMiddletown HospitalMicroalbumin [Mass/volume] in UrineMiddletown HospitalPatient EducationPromedica Memorial Hospital Ctr Work Phone: Patient [facility] Work Phone: [facility] Immunizations Immunization DateImmunizationNotesCare CnqnkpgzJclbuhrp76-64-6339chzxqmksv virus vaccine, unspecified formulationJailyn Sepulveda NP Work Phone: [facility] CenterHrxhadbpqy65-49-3308Oeloece High-Dose Quadrivalent 0.7 ML Intramuscular Suspension Prefilled SyringeBenjamin E Ball Work Phone: [phone]-VpggoNorth Memorial Health Hospitaly 250 DO Work Phone: [phone]zteze virus vaccine, unspecified formulationPascual PRINCE [address] [place], [place] [address]305-24-2022Comirnaty 30 MCG/0.3ML Intramuscular SuspensionBenjamin E Ball Work Phone: [phone]-Phpqm [facility] 250 DO Work Phone: [phone]V-ToD-9 mRNA (psbvqbzkkak-feio-dlylbjj) vaccinePascual PRINCE [facility]11-03-2021COVID-19, mRNA, LNP-S, PF, 100 mcg or 50 mcg dosePascual PRINCE [facility]10-22-2021influenza virus vaccine, split virus (incl. purified surface antigen)Erich Alejandro Other [employer] Other 10564011-76-1355gvkfzjhwb virus vaccine, unspecified formulationMiddletown Hospital08-26-2021tetanus toxoid, reduced diphtheria toxoid, and acellular pertussis vaccine, adsorbedPascual PRINCE [facility] HospitalComment on above: Early/Late Reason: Early/Late Reason: Other : .40-33-1580LGEQ-CoV-2 (COVID-19) mRNA-1273 vaccinePascual PRINCE [facility]01-13-2021SARS-CoV-2 (COVID-19) mRNA-1273 vaccinePascual PRINCE [facility] Systemue10-01-2020influenza virus vaccine, unspecified formulationPascual PRINCE [facility]01-18-2020zoster vaccine, liveBenjamin Ball Other [facility]09-28-2019influenza virus vaccine, split virus (incl. purified surface antigen)Erich Alejandro Other noRevolucionadolabs [employer] Other 09-259728-24-0686uhzqlghaf virus vaccine, unspecified formulationMiddletown Hospital09-28-2019zoster vaccine recombinant Pascual PRINCE [facility]10-10-2018influenza virus vaccine, split virus (incl. purified surface antigen)Erich Alejandro Other [facility] [employer] Other 10-012033-99-0360wloxydpkw virus vaccine, unspecified formulationMiddletown Hospital09-30-2017influenza virus vaccine, split virus (incl. purified surface antigen)Erich Alejandro Other [facility] [employer] Other 09-839635-49-5030myvdfxile virus vaccine, unspecified formulationMiddletown Hospital06-25-2016pneumococcal polysaccharide vaccine, 23 valentBenjamin Javon Other [facility]04-18-2015 pneumococcal conjugate vaccine, 13 valentBenjamin Javon Other [facility]11-09-2005influenza virus vaccine, whole virusBenjamin E Javon Work Phone: [phone]-TiehiMelrose Area Hospital 250 DO Work Phone: [phone] 249-980211526517-26-4977hayksjpzwvip polysaccharide vaccine, 23 valentPascual NIKI [facility] Payers DatePayer CategoryPayerPolicy [id number] Health [id number] Cross Blue Shield BCBS Member Subscriber Plan / Payer (Effective 2011-Present) Name: Jose L Ames Relation to Subscriber: Self Name: Jose L Ames Payer ID: Not on file Type: Not on file Address: [facility] [address] [place] [id number] 2004Medicare [id number] [id number] 2.840.1.015960.3.57[id number] 2.840.1.709846.3.57[id number] 2.840.1.722998.3.57[id number] 2.840.1.853376.3.57[id number] 2.16840.1.210054.3.57[id number] 2.16840.1.096556.3.57[id number] 2.16840.1.224278.3.57[id number] 2.16840.1.182747.3.57[id number] 2.16.840.1.246500.3.57[id number] 2.840.1.944629.3.579.[id number] 2.16840.1.857942.3.57[id number] 2.840.1.646234.3.57[id number] 2.840.1.718895.3.57[id number] 2.840.1.847832.3.57[id number] 2.840.1.310333.3.57[id number] 2.840.1.901344.3.57[id number] 2.840.1.768821.3.57[id number] 2.840.1.480158.3.57[id number] 2.840.1.342566.3.57[id number] 2.840.1.224102.[id number] 2.840.1.3[id number] 2.840.1.877333.3.579.2.531 [id number] 2.840.1.278151.3.579.2.531 Social History DateTypeDetailFacilityStart: 08-07-2021 End: 60-86-4001Sgoxlyn smoking statusLight tobacco smoker (finding)[facility] CenterStart: 13-15-2124Xxc [facility] At [facility]: 09-04-2022 End: 84-60-0428Sujxnoh smoking status NHISEx-smoker (finding)[facility]tart: 91-27-9366Rvd Assigned At [facility]tart: 02-45-7725Ab alcohol useNo alcohol useMP-[facility]ly [facility] 250 DO Work Phone: Comment on above:quit smoking in 2019;Start: 13-59-8955Efyimaw smoking status NHISNever smoked tobaccoHUNTSMAN MENTAL [facility] HealthcareStart: 01-30-2024 End: 72-10-6100Irtbeqjxx beverage intakeLifetime non-drinker (finding)[facility] HealthcareStart: 19-55-0062Ggj assigned at birthNot on fileNOAL HealthcareStart: 01-14-2018 End: 32-42-7204WbtSjmg (finding)[facility]tart: 10-11-2024 End: 84-94-1848Oyxaiqt smoking status NHISCurrent some day smokerMercy Health – The Jewish Hospitaltart: 59-49-8871ISUA Follow upSDOH Follow upC[facility] Work Phone: Tobacco smoking statusNeverExecutive Urology of [facility] State East Hospitalexual OrientationExecutive [facility] of [facility] Equipment Procedure CodeEquipment CodeEquipment Original TextEquipment IdentifierDates HUMERUS FRACTURE ORIF Edward Maxwell DO 05/01/21 Unknown Arm LFDAStart: 90-67-4760URZGJHW FRACTURE ORIF Edward Maxwell DO 05/01/21 Unknown Arm L FDAStart: 62-30-4018KJCPRJL FRACTURE ORIF Edward Maxwell DO 05/01/21 Unknown Arm LFDAStart: 34-43-3896NLCAWKM FRACTURE ORIF Alissa CRISTINA Edward Jesusita 05/01/21 Unknown Arm LFDAStart: 06-04-1143FYEVPYJ FRACTURE ORIF Zach Maxwell DOolas K. 05/01/21 Unknown Arm LFDAStart: 99-04-1484SPSLNRB FRACTURE ORIF Zach Maxwell DOolas K. 05/01/21 Unknown Arm LFDAStart: 89-13-4740BMUZOHU FRACTURE ORIF Zach Maxwell DOolas K. 05/01/21 Unknown Arm LFDAStart: 05-01-2021 HUMERUS FRACTURE ORIF Alissa CRISTINA Edward K. 05/01/21 Unknown Arm LFDAStart: 82-74-2065XGQKYLP FRACTURE ORIF Alissa CRISTINA Edward Mariam. 05/01/21 Unknown Arm L FDAStart: 52-76-5529AIQFXLX FRACTURE ORIF Alissa CRISTINA Edward Mariam. 05/01/21 Unknown Arm LFDAStart: 58-09-3797DJMXQIV FRACTURE ORIF Zahc Maxwell DOolas Mariam. 05/01/21 Unknown Arm LFDAStart: 18-92-3766MTENKGV FRACTURE ORIF Alissa CRISTINA Edward Jesusita 05/01/21 Unknown Arm LFDAStart: 70-35-9026WAQRSSR FRACTURE ORIF Zach Maxwell DOolas Mariam. 05/01/21 Unknown Arm LFDAStart: 77-12-4592CYCMCCM FRACTURE ORIF Alissa CRISTINA Edward Mc 05/01/21 Unknown Arm LFDAStart: 05-01-2021 HUMERUS FRACTURE ORIF Alissa CRISTINA Edward K. 05/01/21 Unknown Arm LFDAStart: 59-63-3938TLSJQFL FRACTURE ORIF Alissa CRISTINA Edward K. 05/01/21 Unknown Arm L FDAStart: 81-15-3063RYFSVLB FRACTURE ORIF Alissa CRISTINA Edward K. 05/01/21 Unknown Arm LFDAStart: 61-57-8230IZBGSUH FRACTURE ORIF Alissa CRISTINA Edward Jesusita 05/01/21 Unknown Arm LFDAStart: 80-05-6566LYFZGGH FRACTURE ORIF Zach Maxwell DOolas Jesusita 05/01/21 Unknown Arm LFDAStart: 95-57-4945CFKLPSB FRACTURE ORIF Zach Maxwell DOolas K. 05/01/21 Unknown Arm LFDAStart: 09-65-7199DJCKYOA FRACTURE ORIF Rica Maxwell DOs K. 05/01/21 Unknown Arm LFDAStart: 05-01-2021 HUMERUS FRACTURE ORIF Zach Maxwell DOolas K. 05/01/21 Unknown Arm LFDAStart: 86-99-6196FSPHUKK FRACTURE ORIF Rica Maxwell DOs K. 05/01/21 Unknown Arm L FDAStart: 82-75-0127XTKDAHZ FRACTURE ORIF Zach Maxwell DOolas K. 05/01/21 Unknown Arm LFDAStart: 35-55-9096JGFAYUR FRACTURE ORIF Zach Maxwell DOolas K. 05/01/21 Unknown Arm LFDAStart: 10-21-4014NHBVFFF FRACTURE ORIF Rica Maxwell DOs Mariam. 05/01/21 Unknown Arm LFDAStart: 07-96-2417OOIPNLZ FRACTURE ORIF Rica Maxwell DOs K. 05/01/21 Unknown Arm LFDAStart: 42-42-9792RLQIJOU FRACTURE ORIF Zach Maxwell DOkirstin Becerra. 05/01/21 Unknown Arm LFDAStart: 05-01-2021 HUMERUS FRACTURE ORIF Zach Maxwell DOolas K. 05/01/21 Unknown Arm LFDAStart: 73-45-6694ASABRZL FRACTURE ORIF Zach Maxwell DOolas Mariam. 05/01/21 Unknown Arm L FDAStart: 82-24-1013JBUSFBH FRACTURE ORIF Zach Maxwell DOolas K. 05/01/21 Unknown Arm LFDAStart: 79-40-7716NQLSVCZ FRACTURE ORIF Zach Maxwell DOolas K. 05/01/21 Unknown Arm LFDAStart: 03-85-2648AFJCKPV FRACTURE ORIF Zach Maxwell DOolas K. 05/01/21 Unknown Arm LFDAStart: 32-82-7110CEQSQDU FRACTURE ORIF Zach Maxwell DOolas Mariam. 05/01/21 Unknown Arm LFDAStart: 87-20-7076FJXNODM FRACTURE ORIF Zach Maxwell DOolas K. 05/01/21 Unknown Arm LFDAStart: 05-01-2021 HUMERUS FRACTURE ORIF Zach Maxwell DOolas K. 05/01/21 Unknown Arm LFDAStart: 92-14-0469HDWWDJZ FRACTURE ORIF Zach Maxwell DOolas K. 05/01/21 Unknown Arm L FDAStart: 92-75-5529ROLHDTE FRACTURE ORIF Zach Maxwell DOolas K. 05/01/21 Unknown Arm LFDAStart: 75-45-7513UEQTXDC FRACTURE ORIF Alissa CRISTINA Edward K. 05/01/21 Unknown Arm LFDAStart: 80-25-7787OTYOFWU FRACTURE ORIF Zach Maxwell DOolas K. 05/01/21 Unknown Arm LFDAStart: 52-98-4230LLIDUJG FRACTURE ORIF Alissa CRISTINA Edward K. 05/01/21 Unknown Arm LFDAStart: 66-34-4489MILZXZP FRACTURE ORIF Zach Maxwell DOolas K. 05/01/21 Unknown Arm LFDAStart: 05-01-2021 HUMERUS FRACTURE ORIF Alissa CRISTINA Edward K. 05/01/21 Unknown Arm LFDAStart: 25-58-4174RUCQYZU FRACTURE ORIF Alissa CRISTINA Edward K. 05/01/21 Unknown Arm L FDAStart: 93-21-1728TWVIBQE FRACTURE ORIF Alissa CRISTINA Edward K. 05/01/21 Unknown Arm LFDAStart: 23-79-3931SXUIGBQ FRACTURE ORIF Alissa CRISTINA Edward K. 05/01/21 Unknown Arm LFDAStart: 19-64-3686HSWKDHQ FRACTURE ORIF Alissa CRISTINA Edward K. 05/01/21 Unknown Arm LFDAStart: 87-27-9830AGLMKDE FRACTURE ORIF Alissa CRISTINA Edward K. 05/01/21 Unknown Arm LFDAStart: 18-98-7692LMFAHTG FRACTURE ORIF Alissa CRISTINA Edward K. 05/01/21 Unknown Arm LFDAStart: 05-01-2021 HUMERUS FRACTURE ORIF Edward Maxwell DO. 05/01/21 Unknown Arm LFDAStart: 59-27-7080RFOKBGB FRACTURE ORIF Edward Maxwell DO. 05/01/21 Unknown Arm L FDAStart: 00-92-6334CFVZEJL FRACTURE ORIF Edward Maxwell DO. 05/01/21 Unknown Arm LFDAStart: 05-78-9495DDNXNVK FRACTURE ORIF Edward Maxwell DO. 05/01/21 Unknown Arm LFDAStart: 47-75-5177PWBEFWT FRACTURE ORIF Rica Maxwell DOs Mariam. 05/01/21 Unknown Arm LFDAStart: 92-10-5922Sfbwm: 77-00-9860Feebg Sugar Diagnostic (Freestyle Lite Strips) stripStart: 20-21-3412MBRYPEX FRACTURE ORIF Edward Maxwell DORl 05/01/21 Unknown Arm LFDAStart: 23-86-1978PBDKGQW FRACTURE ORIF Edward Maxwell DO. 05/01/21 Unknown Arm LFDAStart: 05-01-2021 HUMERUS FRACTURE ORIF Edward Maxwell DORl 05/01/21 Unknown Arm LFDAStart: 94-66-4891QZNHZFS FRACTURE ORIF Edward Maxwell DO. 05/01/21 Unknown Arm L FDAStart: 33-41-2850IAAIABK FRACTURE ORIF Rcia Maxwell DObetsy Mc 05/01/21 Unknown Arm LFDAStart: 56-55-2581ZFREAYL FRACTURE ORIF Rica Maxwell DOs Mariam. 05/01/21 Unknown Arm LFDAStart: 66-14-4874BEAZIVG FRACTURE ORIF Rica Maxwell DOs K. 05/01/21 Unknown Arm LFDAStart: 08-79-9887ONIEVIX FRACTURE ORIF Rica Maxwell DOs K. 05/01/21 Unknown Arm LFDAStart: 12-27-8792DSKFQXC FRACTURE ORIF Rica Maxwell DOs MariamRl 05/01/21 Unknown Arm LFDAStart: 05-01-2021 HUMERUS FRACTURE ORIF Rica Maxwell DOs K. 05/01/21 Unknown Arm LFDAStart: 66-31-8249BXUDDXY FRACTURE ORIF Alissa CRISTINA, Edward K. 05/01/21 Unknown Arm L FDAStart: 94-35-6616RPSHDAO FRACTURE ORIF Alissa DO, Edward K. 05/01/21 Unknown Arm LFDAStart: 38-05-3571OQUYKXR FRACTURE ORIF Alissa CRISTINA, Edward K. 05/01/21 Unknown Arm LFDAStart: 42-67-8611IFTOKEF FRACTURE ORIF Alissa DO, Edward K. 05/01/21 Unknown Arm LFDAStart: 10-28-1312DCOIWXQ FRACTURE ORIF Alissa CRISTINA, Edward K. 05/01/21 Unknown Arm LFDAStart: 92-67-0809RNIQQNP FRACTURE ORIF Alissa CRISTINA, Edward K. 05/01/21 Unknown Arm LFDAStart: 05-01-2021 HUMERUS FRACTURE ORIF Alissa CRISTINA, Edward K. 05/01/21 Unknown Arm LFDAStart: 29-74-1331UGJVMGS FRACTURE ORIF Alissa CRISTINA, Edward K. 05/01/21 Unknown Arm L FDAStart: 17-56-6319Jemfj Sugar Diagnostic (Freestyle Lite Strips) stripStart: 04-46-4712Tvund Sugar Diagnostic (Freestyle Lite Strips) stripStart: 11-05-2023 Lancets (Freestyle Lancets) 28 gauge miscStart: 46-92-1525Xtmpddx (Freestyle Lancets) 28 gauge miscStart: 01-13-2024 End: 60-77-0678Nlalo Sugar Diagnostic (Freestyle Lite Strips) stripStart: 09-46-9426Ygdmhud (Freestyle Lancets) 28 gauge miscStart: 66-95-0103Vzr Needle, Diabetic (Bd Ultra-Fine Mini Pen Needle) 31 gauge x 3/16 needleStart: 45-06-6244Bpggq Sugar Diagnostic (Freestyle Lite Strips) stripStart: 11-05-2023 End: 18-01-5613Ufyqozq (Freestyle Lancets) 28 gauge miscStart: 01-13-2024 End: 72-49-0403Wyz Needle, Diabetic (Bd Ultra-Fine Mini Pen Needle) 31 gauge x 3/16 needleStart: 02-06-2024 End: 55-81-5221QKCBOWA FRACTURE ORIF Rica Maxwell DOs K. 05/01/21 Unknown Arm LFDAStart: 04-44-4401YFJWXNZ FRACTURE ORIF Zach Maxwell DOolas K. 05/01/21 Unknown Arm LFDAStart: 92-78-9214VVFFDSV FRACTURE ORIF Zach Maxwell DOolas K. 05/01/21 Unknown Arm LFDAStart: 87-88-5599WKPOGHN FRACTURE ORIF Zach Maxwell DOolas K. 05/01/21 Unknown Arm LFDAStart: 91-67-7264JKTRQUL FRACTURE ORIF Zach Maxwell DOolas K. 05/01/21 Unknown Arm LFDAStart: 69-44-2945CHJSHVH FRACTURE ORIF Zach Maxwell DOolas K. 05/01/21 Unknown Arm LFDAStart: 05-01-2021 HUMERUS FRACTURE ORIF Zach Maxwell DOolas K. 05/01/21 Unknown Arm LFDAStart: 61-74-8716ISMRPXV FRACTURE ORIF Alissa CRISTINA Edward K. 05/01/21 Unknown Arm L FDAStart: 07-87-3182FWZACVB FRACTURE ORIF Zach Maxwell DOolas K. 05/01/21 Unknown Arm LFDAStart: 70-67-1770NCQGRXY FRACTURE ORIF Alissa CRISTINA Edward K. 05/01/21 Unknown Arm LFDAStart: 66-49-0177VIMADUF FRACTURE ORIF Zach Maxwell DOolas K. 05/01/21 Unknown Arm LFDAStart: 08-17-9083HYCHINP FRACTURE ORIF Alissa CRISTINA Edward K. 05/01/21 Unknown Arm LFDAStart: 98-33-8737BAYQYIR FRACTURE ORIF Zach Maxwell DOolas K. 05/01/21 Unknown Arm LFDAStart: 05-01-2021 HUMERUS FRACTURE ORIF Alissa CRISTINA Edward K. 05/01/21 Unknown Arm LFDAStart: 12-36-6913TOUKZSP FRACTURE ORIF [place] , Edward K. 05/01/21 Unknown Arm L FDAStart: 45-64-2919LDMJXZN FRACTURE ORIF [place] DO, Edward K. 05/01/21 Unknown Arm LFDAStart: 69-08-3282JPUXRAW FRACTURE ORIF [place] DO, Edward K. 05/01/21 Unknown Arm LFDAStart: 77-24-7243JDUMANI FRACTURE ORIF [place] DO, Edward K. 05/01/21 Unknown Arm LFDAStart: 34-08-4149Liifl Sugar Diagnostic (Freestyle Lite Strips) stripStart: 35-77-1852Soewzrs (Freestyle Lancets) 28 gauge miscStart: 17-10-2168Xsb Needle, Diabetic (Bd Ultra-Fine Mini Pen Needle) 31 gauge x 3/16 needleStart: 44-08-6658Hihvs Sugar Diagnostic (Freestyle Lite Strips) stripStart: 11-05-2023 End: 87-38-4645Owbqlpk (Freestyle Lancets) 28 gauge miscStart: 01-13-2024 End: 39-02-2047Nte Needle, Diabetic (Bd Ultra-Fine Mini Pen Needle) 31 gauge x 3/16 needleStart: 02-06-2024 End: 23-34-9696Hlgnz Sugar Diagnostic (Freestyle Lite Strips) stripStart: 23-02-8493Fniyygc (Freestyle Lancets) 28 gauge miscStart: 36-24-8864Klv Needle, Diabetic (Bd Ultra-Fine Mini Pen Needle) 31 gauge x 3/16 needleStart: 26-99-6338Bctct Sugar Diagnostic (Freestyle Lite Strips) stripStart: 11-05-2023 End: 49-04-3361Xzuepqp (Freestyle Lancets) 28 gauge miscStart: 01-13-2024 End: 37-63-0199Aup Needle, Diabetic (Bd Ultra-Fine Mini Pen Needle) 31 gauge x 3/16 needleStart: 02-06-2024 End: 70-56-7796Qsgpm Sugar Diagnostic (Freestyle Lite Strips) stripStart: 02-39-9060Ygskgpk (Freestyle Lancets) 28 gauge miscStart: 36-84-2084Nxj Needle, Diabetic (Bd Ultra-Fine Mini Pen Needle) 31 gauge x 3/16 needleStart: 38-30-8441Yzxrd Sugar Diagnostic (Freestyle Lite Strips) stripStart: 11-05-2023 End: 44-87-9897Rskfosr (Freestyle Lancets) 28 gauge miscStart: 01-13-2024 End: 55-14-1497Czt Needle, Diabetic (Bd Ultra-Fine Mini Pen Needle) 31 gauge x 3/16 needleStart: 02-06-2024 End: 32-01-9545Eguuz Sugar Diagnostic (Freestyle Lite Strips) stripStart: 56-27-8282Hxknrgf (Freestyle Lancets) 28 gauge miscStart: 68-20-9238Bds Needle, Diabetic (Bd Ultra-Fine Mini Pen Needle) 31 gauge x 3/16 needleStart: 36-85-2420Bvkup Sugar Diagnostic (Freestyle Lite Strips) stripStart: 11-05-2023 End: 59-84-6377Rfhmsos (Freestyle Lancets) 28 gauge miscStart: 01-13-2024 End: 17-18-2862Uex Needle, Diabetic (Bd Ultra-Fine Mini Pen Needle) 31 gauge x 3/16 needleStart: 02-06-2024 End: 64-80-8095Sieyo Sugar Diagnostic (Freestyle Lite Strips) stripStart: 19-44-2600Knsjgra (Freestyle Lancets) 28 gauge miscStart: 56-23-0038Zjz Needle, Diabetic (Bd Ultra-Fine Mini Pen Needle) 31 gauge x 3/16 needleStart: 64-07-5724Tpzzs Sugar Diagnostic (Freestyle Lite Strips) stripStart: 11-05-2023 End: 46-88-3892Gkugbip (Freestyle Lancets) 28 gauge miscStart: 01-13-2024 End: 64-31-8026Bba Needle, Diabetic (Bd Ultra-Fine Mini Pen Needle) 31 gauge x 3/16 needleStart: 02-06-2024 End: 33-13-0316Yhmtk Sugar Diagnostic (Freestyle Lite Strips) stripStart: 10-28-1954Ngdtxav (Freestyle Lancets) 28 gauge miscStart: 58-22-3221Zqk Needle, Diabetic (Bd Ultra-Fine Mini Pen Needle) 31 gauge x 3/16 needleStart: 02-13-5462Juslj Sugar Diagnostic (Freestyle Lite Strips) stripStart: 11-05-2023 End: 76-60-4207Ipgddfu (Freestyle Lancets) 28 gauge miscStart: 01-13-2024 End: 08-88-8645Uza Needle, Diabetic (Bd Ultra-Fine Mini Pen Needle) 31 gauge x 3/16 needleStart: 02-06-2024 End: 02-47-9691Valvh Sugar Diagnostic (Freestyle Lite Strips) stripStart: 03-71-4612Kmmsfxc (Freestyle Lancets) 28 gauge miscStart: 19-06-4439Ngm Needle, Diabetic (Bd Ultra-Fine Mini Pen Needle) 31 gauge x 3/16 needleStart: 81-33-0840Hyzaf Sugar Diagnostic (Freestyle Lite Strips) stripStart: 11-05-2023 End: 08-50-6638Guvpttu (Freestyle Lancets) 28 gauge miscStart: 01-13-2024 End: 62-85-0121Tuw Needle, Diabetic (Bd Ultra-Fine Mini Pen Needle) 31 gauge x 3/16 needleStart: 02-06-2024 End: 70-24-9126Kqojr Sugar Diagnostic (Freestyle Lite Strips) stripStart: 84-03-0855Tmdipeu (Freestyle Lancets) 28 gauge miscStart: 20-88-2728Qhk Needle, Diabetic (Bd Ultra-Fine Mini Pen Needle) 31 gauge x 3/16 needleStart: 90-07-8542Qvvro Sugar Diagnostic (Freestyle Lite Strips) stripStart: 11-05-2023 End: 05-28-8411Nttdwhn (Freestyle Lancets) 28 gauge miscStart: 01-13-2024 End: 84-75-1715Too Needle, Diabetic (Bd Ultra-Fine Mini Pen Needle) 31 gauge x 3/16 needleStart: 02-06-2024 End: 68-43-3212Peuux Sugar Diagnostic (Freestyle Lite Strips) stripStart: 82-76-1756Ooqstxw (Freestyle Lancets) 28 gauge miscStart: 22-65-6241Jvi Needle, Diabetic (Bd Ultra-Fine Mini Pen Needle) 31 gauge x 3/16 needleStart: 18-25-5521Dhwuc Sugar Diagnostic (Freestyle Lite Strips) stripStart: 11-05-2023 End: 64-88-8553Gtxysok (Freestyle Lancets) 28 gauge miscStart: 01-13-2024 End: 43-53-1827Slt Needle, Diabetic (Bd Ultra-Fine Mini Pen Needle) 31 gauge x 3/16 needleStart: 02-06-2024 End: 30-29-9314Ogwib Sugar Diagnostic (Freestyle Lite Strips) stripStart: 45-72-9197Igvyjot (Freestyle Lancets) 28 gauge miscStart: 29-54-3032Qjy Needle, Diabetic (Bd Ultra-Fine Mini Pen Needle) 31 gauge x 3/16 needleStart: 10-58-2844Expyi Sugar Diagnostic (Freestyle Lite Strips) stripStart: 11-05-2023 End: 24-76-3819Ufiejht (Freestyle Lancets) 28 gauge miscStart: 01-13-2024 End: 49-42-7969Hbk Needle, Diabetic (Bd Ultra-Fine Mini Pen Needle) 31 gauge x 3/16 needleStart: 02-06-2024 End: 67-23-9667Qbylb Sugar Diagnostic (Freestyle Lite Strips) stripStart: 36-23-6737Drcitjw (Freestyle Lancets) 28 gauge miscStart: 49-38-6530Rzy Needle, Diabetic (Bd Ultra-Fine Mini Pen Needle) 31 gauge x 3/16 needleStart: 44-70-5448Iewyp Sugar Diagnostic (Freestyle Lite Strips) stripStart: 11-05-2023 End: 09-50-8329Mbpqtcw (Freestyle Lancets) 28 gauge miscStart: 01-13-2024 End: 72-48-0884Vsl Needle, Diabetic (Bd Ultra-Fine Mini Pen Needle) 31 gauge x 3/16 needleStart: 02-06-2024 End: 85-86-2011Nrqxm Sugar Diagnostic (Freestyle Lite Strips) stripStart: 45-12-0341Rtojewn (Freestyle Lancets) 28 gauge miscStart: 47-64-6125Ucn Needle, Diabetic (Bd Ultra-Fine Mini Pen Needle) 31 gauge x 3/16 needleStart: 36-98-5810Thfdc Sugar Diagnostic (Freestyle Lite Strips) stripStart: 11-05-2023 End: 05-09-3628Kkgukum (Freestyle Lancets) 28 gauge miscStart: 01-13-2024 End: 64-94-0035Mwb Needle, Diabetic (Bd Ultra-Fine Mini Pen Needle) 31 gauge x 3/16 needleStart: 02-06-2024 End: 43-74-5099RTWLKFK FRACTURE ORIF Maxwell Edward CRISTINA 05/01/21 Unknown Arm LFDAStart: 27-87-3501WNGPOCX FRACTURE ORIF Alissa Rica CRISTINAs K. 05/01/21 Unknown Arm LFDAStart: 31-20-5941TUIVBJM FRACTURE ORIF Alissa Rica CRISTINAs K. 05/01/21 Unknown Arm LFDAStart: 76-91-2386VPCLQTQ FRACTURE ORIF Alissa Rica CRISTINAs K. 05/01/21 Unknown Arm LFDAStart: 49-52-8512NRLZQHH FRACTURE ORIF Alissa Rica CRISTINAs K. 05/01/21 Unknown Arm LFDAStart: 03-96-0924QQVJXKZ FRACTURE ORIF Alissa Zach CRISTINAolas K. 05/01/21 Unknown Arm LFDAStart: 05-01-2021 HUMERUS FRACTURE ORIF Maxwell Zach CRISTINAolas K. 05/01/21 Unknown Arm LFDAStart: 58-88-3004QYHGRKM FRACTURE ORIF Maxwell Zach CRISTINAolas K. 05/01/21 Unknown Arm L FDAStart: 53-25-2341HLWBNGR FRACTURE ORIF Maxwell Zach CRISTINAolas K. 05/01/21 Unknown Arm LFDAStart: 34-36-8165ZEHHPHZ FRACTURE ORIF Alissa CRISTINA, Edward K. 05/01/21 Unknown Arm LFDAStart: 63-20-4109LRXLBMB FRACTURE ORIF Alissa CRISTINA, Edward K. 05/01/21 Unknown Arm LFDAStart: 69-25-0759ETECBAA FRACTURE ORIF Alissa CRISTINA, Edward K. 05/01/21 Unknown Arm LFDAStart: 66-05-5057RMPTVBL FRACTURE ORIF Alissa CRISTINA, Edward K. 05/01/21 Unknown Arm LFDAStart: 05-01-2021 HUMERUS FRACTURE ORIF Alissa CRISTINA, Edwadr K. 05/01/21 Unknown Arm LFDAStart: 18-76-5589GXBLQBM FRACTURE ORIF Alissa CRISTINA, Edward K. 05/01/21 Unknown Arm L FDAStart: 63-53-1833PCDVGCZ FRACTURE ORIF Alissa CRISTINA, Edward K. 05/01/21 Unknown Arm LFDAStart: 13-28-2940BABSCEL FRACTURE ORIF Alissa CRISTINA, Edward K. 05/01/21 Unknown Arm LFDAStart: 95-11-2191CVMIFJC FRACTURE ORIF Alissa CRISTINA, Edward K. 05/01/21 Unknown Arm LFDAStart: 94-86-6655Fwswu Sugar Diagnostic (Freestyle Lite Strips) stripStart: 93-75-6144Rditrki (Freestyle Lancets) 28 gauge miscStart: 29-25-7452Nfq Needle, Diabetic (Bd Ultra-Fine Mini Pen Needle) 31 gauge x 3/16 needleStart: 35-00-3598Kvirk Sugar Diagnostic (Freestyle Lite Strips) stripStart: 01-09-2024 End: 55-40-9546Eyngr Sugar Diagnostic (Freestyle Lite Strips) stripStart: 11-05-2023 End: 78-00-1934Jlkzcoh (Freestyle Lancets) 28 gauge miscStart: 01-13-2024 End: 38-76-7320Vqw Needle, Diabetic (Bd Ultra-Fine Mini Pen Needle) 31 gauge x 3/16 needleStart: 02-06-2024 End: 87-45-5831Rydsd Sugar Diagnostic (Freestyle Lite Strips) stripStart: 99-83-5166Qspemcz (Freestyle Lancets) 28 gauge miscStart: 16-72-9043Xci Needle, Diabetic (Bd Ultra-Fine Mini Pen Needle) 31 gauge x 3/16 needleStart: 87-33-0852Wycps Sugar Diagnostic (Freestyle Lite Strips) stripStart: 01-09-2024 End: 61-76-9160Nqvbc Sugar Diagnostic (Freestyle Lite Strips) stripStart: 11-05-2023 End: 93-38-3441Omlercc (Freestyle Lancets) 28 gauge miscStart: 01-13-2024 End: 94-61-2015Apu Needle, Diabetic (Bd Ultra-Fine Mini Pen Needle) 31 gauge x 3/16 needleStart: 02-06-2024 End: 21-73-9489Hhsqq Sugar Diagnostic (Freestyle Lite Strips) stripStart: 52-52-3680Ymdxvdg (Freestyle Lancets) 28 gauge miscStart: 34-58-4477Hxf Needle, Diabetic (Bd Ultra-Fine Mini Pen Needle) 31 gauge x 3/16 needleStart: 26-41-5239Lvnng Sugar Diagnostic (Freestyle Lite Strips) stripStart: 01-09-2024 End: 26-53-1133Paubc Sugar Diagnostic (Freestyle Lite Strips) stripStart: 11-05-2023 End: 34-03-2708Ahsozsp (Freestyle Lancets) 28 gauge miscStart: 01-13-2024 End: 31-21-0484Rjx Needle, Diabetic (Bd Ultra-Fine Mini Pen Needle) 31 gauge x 3/16 needleStart: 02-06-2024 End: 02-06-2024 Goals DatePatient GoalDesired Activity/State Functional Status UxswBpyukxqvasKlwfwnNhsqkgjb17-61-9062Udbkczknda statusPatient at Baseline [facility] Work Phone: 1([phone] 412-843602435165-31-0403Jobxmtpfeo statusDisability Status [facility] Work Phone: [phone] 115-989108258098-30-7380Fqyavhnocy StatusN/AExec[facility]01-07-2023Functional statusPatient at [facility] Work Phone: Mental Status OucxDybtweubtmRkwjbbYgrdjgxd99-31-4205Ldnjssukl functionCognitive Status Patient at [facility] Work Phone: 1(890) [phone]yvegpxy functionCognitive Status Patient at [facility] Work Phone: Clinical Notes 12-02-2019 to 04-07-2025 Note Date & XdcmZqgdFpslooyq34-51-7674 Hospital Discharge instructions Patient Education 04/07/2025 10:37:44 [...] your health care provider. General instructions Take ybhw-xox-ndkhbpu and prescription medicines only as told by [...] provider. Document Revised: 05/08/2021 Document Reviewed: 05/08/2021 [employer] Patient Education 2023 [employer]. Follow Up Care 12/11/2024 09:41:12 With:LORRAINE DAUGHERTY, Carlos A Hamilton, URL Address: [address] [place], [place] [address]- When: Unknown [facility] 08-06-2025 NotePatient Education Obstetrics and Gynecology Overactive [...] health care provider. General instructions ??? Take ugip-smj-gfmvxuf and prescription medicines only as told by [...] you drink, and whe (more content not included)...[facility]07-03-2025 Evaluation note* Diagnosis Onset Date Resolution Status [...] 2 diabetes mellitus with hyperglycemiaacuteAugust 2024 10:53am [facility] Work Phone: 1(234) 748-473507-03-2025 Evaluation note* Diagnosis Onset Date Resolution Status [...] 2 diabetes mellitus with hyperglycemiaacuteSeptember 2024 11:43am [facility] Work Phone: 1(269) 496-138605-22-2025 Evaluation note* Diagnosis Onset Date Resolution Status [...] 2024 3:26pmVitamin B12 deficiency noneactiveJuly 2024 3:26pm [facility] Work Phone: 1([phone]) 219-826904-11-2025 NotePatient Education Obstetrics and Gynecology Overactive Bladder, [...] health care provider. General instructions ??? Take duvd-zdr-hfztuvz and prescription medicines only as told by [...] you drink, and whe (more content not included)...[facility]04-10-2025 Evaluation note* Diagnosis Onset Date Resolution Status [...] with hyperglycemiaacuteMay 2024 10:28amPolyuria noneactiveMay 2024 10:28am [facility] Work Phone: 1(221) 831-605103-06-2025 Evaluation note* Diagnosis Onset Date Resolution Status [...] with hyperglycemiaacuteMay 2024 10:28amPolyuria noneactiveMay 2024 10:28am [facility] Work Phone: 1(630) 947-806703-06-2025 [facility]UnB[facility] [place] [address] Cancer Center Note Signed Patient: Jose L Ames MR#: [id number] 2655 : 1940 Acct:[id number] Age/Sex: 84 / M Type: REG AMB [...] T2DM, HTN, YASMANI, AAA who presented to [facility] emergency room for altered mental status and weakness. [facility] chart review?patient arrived to [facility] via EMS for altered mental status, [...] day, denies alcohol or illicit druguse. At [facility], his iron studies were c/w anemia [...] mg (1/2 x 20 mg) PO BID pb-xmw-ldkbu-W3-aufsgud-hoigrl 058-98-262-300 mcg (Centrum Silver Men) 1 tab PO [...] up with labs and imaging for review. 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 -Check [facility] for any evidence of positive culture [...] came back neg -Nursing team checked with [facility] yesterday blood cultures were still pending,we were [...] <Electronically signed by West Caraballo MD> 10/13/24 9629 [facility] Work Phone: 1(344) 885-410002-11-2025 [place] [address] Hospitalist Progress Note Signed Patient: Jose L Ames MR#: [id number] 2655 : 1940 Acct:[id number] Age/Sex: 84 / M Adm Date: 5 Loc: Room: [address] [place] [address] Type: ADM IN Attending Dr: West Caraballo [...] can be done as an outpatient. -Check [facility] for any evidence of positive culture [...] MD 5 1239 Signed By: 10/13/24 1255 [facility]02-10-2025 Progress note Author Javier Murray [facility] Date/TimeFebruary 2024 12:56pm [place] [address] Hospitalist Progress Note Signed Patient: Jose L mAes MR#: [id number] 2655 : 1940 Acct:[id number] Age/Sex: 84 / M Adm Date: 5 Loc: 4 Room: [address] [place] [address] Type: ADM IN Attending Dr: Javier Murray [...] <Electronically signed by Javier Murray MD> 10/12/24 [facility] Work Phone: 1(820) 803-816402-10-2025 [place] [address] Hospitalist Progress Note Signed Patient: Jose L Ames MR#: [id number] 2655 : 1940 Acct:[id number] Age/Sex: 84 / M Adm Date: 5 Loc: 4 Room: [address] [place] [address] Type: ADM IN Attending Dr: Javier Murray [...] all came back -Nursing team checked with [facility] yesterday blood cultures were still pending,we were [...] MD 10/12/24 12 53 Signed By: 10/12/[address] [place], [place] [address]2-10-2025 Progress note Author Loyda Carlos [facility] Date/TimeFebruary 2024 10:02pm [place] [address] Hospitalist Progress Note Signed with Addenda Patient: Jose L Ames MR#: [id number] 2655 : 1940 Acct:[id number] Age/Sex: 84 / M Adm Date: 5 Loc: Room: [address] [place] [address] Type: ADM IN Attending Dr: Loyda Carlos [...] <Electronically signed by Loyda Carlos MD> 10/11/242199 [facility] Work Phone: 1(136) 486-213602-09-2025 [place] [address] Hospitalist Progress Note Signed with Addenda Patient: Jose L Ames MR#: [id number] 2655 : 1940 Acct:[id number] Age/Sex: 84 / M Adm Date: 5 Loc: Room: [address] [place] [address] Type: ADM IN Attending Dr: Loyda Carlos [...] all came back -Nursing team checked with [employer] yesterday blood cultures were still pending,we were [...] MD 10/11/24 1127 Signed By: 10/11/24 2200 [facility]02-09-2025 Consult note Author Angelo Iglesias [facility] Date/TimeFebruary 2024 1:10pm [place] [id number] Med Onc/Hem Consult Note Signed Patient: Jose L Ames MR#: [id number] 2655 : 1940 Acct:[id number] Age/Sex: 84 / M Adm Date: 5 Loc: 4C Room: 2D6015-1 Type: ADM IN Attending Dr: Loyda Carlos [...] T2DM, HTN, YASMANI, AAA who presented to [facility] emergency room for altered mental status and weakness. [facility] chart review?patient arrived to [facility] via EMS for altered mental status, [...] day, denies alcohol or illicit druguse. 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 Pernicious anemia Mucopurulent chronic bronchitis Lumbar spondylosis snf (current) use of insulin Left humeral fracture [...] 20 unit subcutDAILY 11/05/23 [History Confirmed 07/15/24] eyjvebcc-dx-lygmu 300 mcg-K 60 mcg-lycop 600 mcg-lutein 300 [...] % (Auto) 64.7, Lymph % (Auto) 22.0, Mckenzie % (Auto) 11.4, Eos % (Auto) 1.1, Baso % (Auto) 0.8, Nucleat RBC Rel Count 0.1, Neut #(Auto) 1.8, Lymph # (Auto) 0.6 L, Mckenzie # (Auto) 0.3, Eos # (Auto) 0.0, [...] signed by Angelo Iglesias MD> 10/11/24 1310 [facility] Work Phone: 1(102) 253-866202-09-2025 [place] [address] Med Onc/Hem Consult Note Signed Patient: Jose L Ames MR#: [id number] 2655 : 1940 Acct:[id number] Age/Sex: 84 / M Adm Date: 5 Loc: Room: 0G1058-4 Type: ADM IN Attending Dr: Loyda Carlos [...] T2DM, HTN, YASMANI, AAA who presented to [facility] emergency room for altered mental status and weakness. [facility] chart review?patient arrived to [facility] via EMS for altered mental status, [...] day, denies alcohol or illicit druguse. 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 Left humeral fracture [...] 20 unit subcutDAILY 11/05/23 [History Confirmed 07/15/24] bcsgwtmk-yb-iiags 300 mcg-K 60 mcg-lycop 600 mcg-lutein 300 [...] % (Auto) 64.7, Lymph % (Auto) 22.0, Mckenzie % (Auto) 11.4, Eos % (Auto) 1.1, Baso % (Auto) 0.8, Nucleat RBC Rel Count 0.1, Neut #(Auto) 1.8, Lymph # (Auto) 0.6 L, Mckenzie # (Auto) 0.3, Eos # (Auto) 0.0, [...] MD 10/11/24 1256 Signed By: 10/11/24 1310 [facility]02-09-2025 Progress note Author Loyda Carlos [facility] Date/TimeFebruary 2024 11:33pm [place] [address] Hospitalist Progress Note Signed Patient: Jose L Ames MR#: [id number] 2655 : 1940 Acct:[id number] Age/Sex: 84 / M Adm Date: 5 Loc: Room: 2G2009-1 Type: ADM IN Attending Dr: Loyda Carlos [...] consulted GI - Follow blood cultures from [facility] which were drawn when pt was at [facility], I asked the nursing teamto confirm the [...] signed by Loyda Carlos MD> 10/10/24 2333 [facility] Work Phone: 1(836) 401-543402-08-2025 [place] [id number] Hospitalist Progress Note Signed Patient: Jose L Ames MR#: [id number] 2655 : 1940 Acct:[id number] Age/Sex: 84 / M Adm Date: 5 Loc: Room: [address] [place] [address] Type: ADM IN Attending Dr: Loyda Carlos [...] consulted GI - Follow blood cultures from [facility] which were drawn when pt was at [facility], I asked the nursing teamto confirm the [...] MD 10/10/24 1225 Signed By: 10/10/24 2333 [facility]02-08-2025 Consult note Author Mateusz Arellano [facility] Date/TimeFebruary 2024 12:09pm [place] [address] Gastroenterology Consult Note Signed Patient: Jose L Ames MR#: [id number] 2655 : 1940 Acct:[id number] Age/Sex: 84 / M Adm Date: 5 Loc: Room: [address] [place] [address] Type: ADM IN Attending Dr: Loyda Carlos [...] Hematologic/Lymphatic: Denies easy bruising and Denies lymphadenopathy [facility] Medical History (Updated 10/09/24 @ 13:11 by Vince Welsh MD) Chronic kidney disease Medicare annual wellness visit, subsequent Thrombocytopenia Chronic heart failure with preserved ejection fraction (HFpEF) Echo: LVEF 65%, LVH, normal RV size/function, no valve defect - 09/2022 Anemia Vitamin D deficiency 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 Pernicious anemia Mucopurulent chronic bronchitis 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 Left humeral fracture [...] 20 unit subcutDAILY 11/05/23 [History Confirmed 07/15/24] cechvrst-pr-adiaw 300 mcg-K 60 mcg-lycop 600 mcg-lutein 300 [...] MPV Neut % (Auto) Lymph % (Auto) Mckenzie % (Auto) Eos % (Auto) Baso % (Auto) Nucleat RBC Rel Count Neut # (Auto) Lymph # (Auto) Mckenzie # (Auto) Eos # (Auto) Baso # [...] % (Auto) 69.2 Lymph % (Auto) 11.5 Mckenzie % (Auto) 18.2 Eos % (Auto) 0.5 Baso % (Auto) 0.6 Nucleat RBC Rel Count 0.1 Neut # (Auto) 3.2 Lymph # (Auto) 0.5 L Mckenzie # (Auto) 0.8 Eos # (Auto) 0.0 [...] MPV Neut % (Auto) Lymph % (Auto) Mckenzie % (Auto) Eos % (Auto) Baso % (Auto) Nucleat RBC Rel Count Neut # (Auto) Lymph # (Auto) Mckenzie # (Auto) Eos # (Auto) Baso # [...] signed by Mateusz Arellano MD> 10/10/24 1209 [facility] Work Phone: 1(188) 119-861702-08-2025 Progress note Author Sergio Oliva [facility] Date/TimeFebruary 2024 10:49am [place] [address] Pulmonology Progress Note Signed Patient: Jose L Ames MR#: [id number] 2655 : 1940 Acct:[id number] Age/Sex: 84 / M Adm Date: 5 Loc: Room: [address] [place] [address] Type: ADM IN Attending Dr: Loyda Carlos [...] signed by Sergio Oliva MD> 10/10/24 1049 [facility] Work Phone: 1(809) 847-742702-08-2025 [place] [address] Gastroenterology Consult Note Signed Patient: Jose L Ames MR#: [id number] 2655 : 1940 Acct:[id number] Age/Sex: 84 / M Adm Date: 5 Loc: Room: 0R6344-7 Type: ADM IN Attending Dr: Loyda Carlos [...] Hematologic/Lymphatic: Denies easy bruising and Denies lymphadenopathy [facility] Medical History (Updated 10/09/24 @ 13:11 by Vince Welsh MD) Chronic kidney disease Medicare annual wellness visit, subsequent Thrombocytopenia Chronic heart failure with preserved ejection fraction (HFpEF) Echo: LVEF 65%, LVH, normal RV size/function, no valve defect - 09/2022 Anemia Vitamin D deficiency 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 Pernicious anemia Mucopurulent chronic bronchitis Lumbar spondylosis snf (current) use of insulin Left humeral fracture [...] 20 unit subcutDAILY 11/05/23 [History Confirmed 07/15/24] kqxbkits-yh-nkrul 300 mcg-K 60 mcg-lycop 600 mcg-lutein 300 [...] MPV Neut % (Auto) Lymph % (Auto) Mckenzie % (Auto) Eos % (Auto) Baso % (Auto) Nucleat RBC Rel Count Neut # (Auto) Lymph # (Auto) Mckenzie # (Auto) Eos # (Auto) Baso # [...] % (Auto) 69.2 Lymph % (Auto) 11.5 Mckenzie % (Auto) 18.2 Eos % (Auto) 0.5 Baso % (Auto) 0.6 Nucleat RBC Rel Count 0.1 Neut # (Auto) 3.2 Lymph # (Auto) 0.5 L Mckenzie # (Auto) 0.8 Eos # (Auto) 0.0 [...] MPV Neut % (Auto) Lymph % (Auto) Mckenzie % (Auto) Eos % (Auto) Baso % (Auto) Nucleat RBC Rel Count Neut # (Auto) Lymph # (Auto) Mckenzie # (Auto) Eos # (Auto) Baso # [...] MD 10/10/24 120 Signed By: 10/10/24 1209 [facility]02-08-2025 [place] [address] Pulmonology Progress Note Signed Patient: Jose L Ames MR#: [id number] 2655 : 1940 Acct:[id number] Age/Sex: 84 / M Adm Date: 5 Loc: Room: [address] [place] [address] Type: ADM IN Attending Dr: Loyda Carlos [...] MD 10/10/24 1040 Signed By: 10/10/24 1049 [facility]02-08-2025 Progress note Author Loyda Carlos [facility] Date/TimeFebruary 2024 10:01pm [place] [address] Hospitalist Progress Note Signed Patient: Jose L Ames MR#: [id number] 2655 : 1940 Acct:[id number] Age/Sex: 84 / M Adm Date: 5 Loc: Room: [address] [place] [address] Type: ADM IN Attending Dr: Loyda Carlos [...] Noted that stroke alert was called at [facility] and deemed by telestroke team due to [...] Carlos MD> 10/09/24 [facility]3 [facility] Work Phone: 1(893) 849-887602-07-2025 [place] [address] Hospitalist Progress Note Signed Patient: Jose L Ames MR#: [id number] 2655 : 1940 Acct:[id number] Age/Sex: 84 / M Adm Date: 5 Loc: Room: [address] [place] [address] Type: ADM IN Attending Dr: Loyda Carlos [...] consulted GI - Follow blood cultures from [facility] -Hold nephrotoxic medications - Hold b/p medications for now Syncope- likely syncopal episode at home from hypovolemia, hypotension - Carotid US in am, Echo in am - Up with assist, fall precautions - Noted that stroke alert was called at [facility] and deemed by telestroke team due to [...] MD 10/09/24 1336 Signed By: 10/09/24 2201 [facility]02-07-2025 Radiology Diagnostic study note [facility] Main [place] [address] [place] [address] CT Scan Report Signed Patient: Jose L Ames MR#: [id number] 2655 : 1940 Acct:[id number] Age/Sex: 84 / M ADM Date: 5 Loc: Room: [address] [place] [address] Type: ADM IN Attending Dr: Loyda Carlos [...] Pascual Harris M.D.10/09/2024 4:57 PM Dictation Location: [place] [address] Transcribed By: [facility] 10/09/241656 Dictated By: Pascual Harris DO 10/09/241644 Signed By: 10/09/24 1657 [facility]02-07-2025 Consult note Author Vince Welsh [facility] Date/TimeFebruary 2024 1:16pm [place] [address] Pulmonology Consult Note Signed Patient: Jose L Ames MR#: [id number] 2655 : 1940 Acct:[id number] Age/Sex: 84 / M Adm Date: 5 Loc: Room: [address] [place] [address] Type: ADM IN Attending Dr: Loyda Carlos [...] Patient was accepted in transfer from the 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 for presumptive hypovolemic shock due to [...] signed by MD Vince Welsh> 10/09/24 1316 [facility] Work Phone: 1(446) 594-782802-07-2025 [place] [address] Pulmonology Consult Note Signed Patient: Jose L Ames MR#: [id number] 2655 : 1940 Acct:[id number] Age/Sex: 84 / M Adm Date: 5 Loc: Room: [address] [place] [address] Type: ADM IN Attending Dr: Loyda Carlos [...] Patient was accepted in transfer from the 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 for presumptive hypovolemic shock due to [...] MD 5 1304 Signed By: 10/09/24 1316 [facility]02-07-2025 Radiology Diagnostic study note [facility] Main [place] [address] [place] [address] Ultrasound Report Signed Patient: Jose L Ames MR#: [id number] 2655 : 1940 Acct:[id number] Age/Sex: 84 / M ADM Date: 5 Loc: Room: [address] [place] [address] Type: ADM IN Attending Dr: Loyda Carlos [...] The velocities of the left common carotidartery qbh897 cm/s peak systolic and 21.1 cm/s end-diastolic [...] Dean Barnard MD10/09/2024 9:26 AM Dictation Location: [place] [address] Tech: Sunita Box Transcribed By: KAYLEIGH 10/09/24925 Dictated By: Dean Barnard MD 10/09/24925 Signed By: 10/09/24925 [facility] Work Phone: 1(761) 252-526302-07-2025 History and physical note Author Lakesha Haskins [facility] Date/TimeFebruary 2024 4:20am [place] [address] Hospitalist H&P Signed Patient: Jose L Ames MR#: [id number] 2655 : 1940 Acct:[id number] Age/Sex: 84 / M Adm Date: 5 Loc: Room: [address] [place] [address] Type: ADM IN Attending Dr: Javier Murray MD Copies to: DO Javier Delatorre MD Paula G Smith, GROMMET WORKER~ HPI DATE OF EXAMINATION: 10/09/24 CHIEF COMPLAINT: I don't remember HISTORY OF PRESENT ILLNESS: Mr. Ames is an 84-year-old male with a PMH of CKD, diastolic heart failure?last EF 65%, BPH, T2DM, HTN, YASMANI, AAA who presented to [facility] emergency room for altered mental status and weakness. Patient seen and examined upon transfer here to [facility] at bedside. Heis very pleasant, alert [...] day, denies alcohol or illicit drug use. [facility] chart review?patient arrived to [facility] via EMS for altered mental status, [...] unless noted in the HPI or below. 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 Left humeral fracture [...] 20 unit subcutDAILY 11/05/23 [History Confirmed 07/15/24] qcegfzyk-qa-frhhh 300 mcg-K 60 mcg-lycop 600 mcg-lutein 300 [...] for now - Follow blood cultures from [facility] - CBC, CMP, Mag in am - Hold nephrotoxic medications - Hold b/p medications for now Syncope- likely syncopal episode at home from hypovolemia, hypotension - Carotid US in am, Echo in am - Up with assist, fall precautions - Noted that stroke alert was called at [facility] and deemed by telestroke team due to [...] signed by Javier Murray MD> 10/09/24 0420 [facility] Work Phone: 1(497) 466-933002-07-2025 History and physical [address] [address] Hospitalist H&P Signed Patient: Jose L Ames MR#: [id number] : 1940 Acct:[id number] Age/Sex: 84 / M Adm Date: 5 Loc: Room: [address] [place] [address] Type: ADM IN Attending Dr: Javier Murray MD Copies to: DO Javier Delatorre MD Paula G Smith, DOROTHY~ HPI DATE OF EXAMINATION: 10/09/24 CHIEF COMPLAINT: I don't remember HISTORY OF PRESENT ILLNESS: Mr. Ames is an 84-year-old male with a PMH of CKD, diastolic heart failure?last EF 65%, BPH, T2DM, HTN, YASMANI, AAA who presented to [facility] emergency room for altered mental status and weakness. Patient seen and examined upon transfer here to [facility] at bedside. Heis very pleasant, alert [...] day, denies alcohol or illicit drug use. [facility] chart review?patient arrived to [facility] via EMS for altered mental status, [...] unless noted in the HPI or below. 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 Left humeral fracture [...] 20 unit subcutDAILY 11/05/23 [History Confirmed 07/15/24] ttceozbh-ci-jespq 300 mcg-K 60 mcg-lycop 600 mcg-lutein 300 [...] for now - Follow blood cultures from [facility] - CBC, CMP, Mag in am - Hold nephrotoxic medications - Hold b/p medications for now Syncope- likely syncopal episode at home from hypovolemia, hypotension - Carotid US in am, Echo in am - Up with assist, fall precautions - Noted that stroke alert was called at [facility] and deemed by telestroke team due to [...] Haskins APRN 10/09/24 0228 Signed By: 10/09/2431010/09/24419 [facility]02-07-2025 Evaluation note* Diagnosis Onset Date Resolution [...] mellitus with hyperglycemiaacute October 09, 2024 1:47am [facility] Work Phone: 1(295) 892-575602-07-2025 Evaluation note* Diagnosis Onset Date Resolution Status [...] 2 diabetes mellitus with hyperglycemiaacuteFebruary 2024 11:31am [facility] Work Phone: 1(123) 132-433802-07-2025 Evaluation note* Diagnosis Onset Date Resolution Status [...] anemiaacute October 22, 2024 8:53amThrombocytopeniaacuteFebruary 2024 8:53am [facility] Work Phone: 1(967) 315-716202-07-2025 Evaluation note* Diagnosis Onset Date Resolution Status [...] anemiaacute October 22, 2024 8:53amThrombocytopeniaacuteFebruary 2024 8:53am [facility] 8:53am [facility] Work Phone: 1(797) [phone] Evaluation note* Diagnosis Onset Date Resolution Status [...] 2 diabetes mellitus with hyperglycemiaacuteApril 2024 2:34pm [facility] Work Phone: 1(279) 594-795602-03-2025 History of Present illness Narrative* Jailyn Sepulveda, [...] wrist extensors , wrist flexor 5/5 , operating room aide strength 4+/5. LUE Strength deltoid , biceps , triceps , wrist extensors , wrist flexor 5/5 , operating room aide strength 4-/5. RLE Strength illopsoas, quadriceps, tibialis anterior, and gastrocnemius strength 5/5. LLE Strength illopsoas, quadriceps, tibialis anterior, and gastrocnemius strength 5/5. Normal tone x4 extremities. Bulk is normal. Sensory: Sensation is intact to light touch throughout distal extremities. Reflexes: Deep tendon reflexes diffusely hypoactive throughout. Coordination: Pvohzp-nd-wmir testing is normal Rapid alternating movements are normal Gait: Cane Review and summary of old records: [facility] 10/03/23: sitting 124/68 95 supine 130/78 97 standing 110/61 97 patient admits mild lightheadedness upon standing MRI of the brain at [facility] on 08/21/23: No acute intracranial process. [...] surgeon) MRI cervical spine without contrast at [facility] on 03/30/21: Mild discogenic disease without central [...] plan, and return instructions documented in this encounterSoutheast Missouri Community Treatment [id number] Evaluation note* Diagnosis Onset Date Resolution Status [...] mellitus with hyperglycemiaacute July 15, 2024 1:53pm [facility] Work Phone: 1(769) 554-481711-04-2024 History of Present illness Narrative* Jailyn Sepulveda [...] wrist extensors , wrist flexor 5/5 , operating room aide strength 4+/5. LUE Strength deltoid , biceps , triceps , wrist extensors , wrist flexor 5/5 , operating room aide strength 4-/5. RLE Strength illopsoas, quadriceps, tibialis anterior, and gastrocnemius strength 5/5. LLE Strength illopsoas, quadriceps, tibialis anterior, and gastrocnemius strength 5/5. Normal tone x4 extremities. Bulk is normal. Sensory: Sensation is intact to light touch throughout distal extremities. Reflexes: Deep tendon reflexes diffusely hypoactive throughout. Coordination: Opnmrq-dm-zqay testing is normal Rapid alternating movements are normal Gait: Cane Review and summary of old records: orthos 10/03/23: sitting 124/68 95 supine 130/78 97 standing 110/61 97 patient admits mild lightheadedness upon standing MRI of the brain at [facility] on 08/21/24: No acute intracranial process. [...] surgeon) MRI cervical spine without contrast at [facility] on 03/30/21: Mild discogenic disease without central [...] plan, and return instructions documented in this encounterSoutheast Missouri Community Treatment [id number] Evaluation note* Diagnosis Onset Date Resolution Status Admit Date Vitamin B12 deficiency noneactiveSept2023 3:25pmChronic heart failure with preserved ejection fraction (HFpEF)acuteFormerly [facility]2023 1:53pmChronic kidney disease acuteFormerly [facility]2023 1:53pmChronic venous insufficiency of lower extremity acuteFormerly [facility]2023 1:53pmGenerally unsteadyacuteLiving[facility] 2023 1:53pm HTN (hypertension)acuteFormerly [facility]2023 1:53pmMedicare annual wellness visit, subsequentacuteJuly 15, 2024 1:53pmNicotine dependenceacuteFormerly [facility]2023 1:53pmOSA (obstructive sleep apnea)acuteFormerly [facility]2023 1:53pm Pernicious anemiaacuteNov2023 1:53pmType 2 diabetes mellitus with hyperglycemiaacuteFormerly [facility]2023 1:53pm [facility] Work Phone: 1(958) 831-622108-14-2024 Hospital Discharge instructions Patient Education 04/15/2024 13:28:07 [...] your health care provider. General instructions Take fbqw-bok-vlegsvi and prescription medicines only as told by [...] provider. Document Revised: 05/08/2021 Document Reviewed: 05/08/2021 [employer] Patient Education 2022 [email or web address]. Follow Up Care 01/29/2024 14:49:01 With:LORRAINE DAUGHERTY, Carlos A Hamilton, URL Address: [facility] linkedü [address] [place], [place] [id number]- When: Unknown [facility] 08-14-2024 NotePatient Education Obstetrics and Gynecology Overactive [...] health care provider. General instructions ? Take dhps-hjc-wpmagko and prescription medicines only as told by [...] help your health care (more content not included)...[facility]05-29-2024 Hospital Discharge instructions Patient Education 01/29/2024 14:39:18 [...] your health care provider. General instructions Take sgbz-ove-qfvgseh and prescription medicines only as told by [...] provider. Document Revised: 05/08/2021 Document Reviewed: 05/08/2021 [employer] Patient Education 2022 [email or web address]. Follow Up Care 01/28/2024 16:14:14 With:LORRAINE DAUGHERTY, Carlos A Hamilton, URL Address: [facility] linkedü [address] [place], [place] [id number]- When: Unknown [facility] 01-19-2024 Evaluation note* Encounter Date Diagnosis Assessment Notes Treatment Notes Treatment Clinical Notes Sep, Acute prostatitis (ICD-10 - N41. 0) [employer] Other 12-06-2023 Evaluation note* Encounter Date Diagnosis [...] HOB elevated, avoid back sleeping. Weight loss [facility] Other 11-21-2023 Evaluation note* Encounter Date Diagnosis Assessment Notes Treatment Notes Treatment Clinical Notes Jul, Pernicious anemia (ICD-10 - D51. 0) [facility] Other 10-17-2023 Evaluation note* Encounter Date Diagnosis Assessment Notes Treatment Notes Treatment Clinical Notes Jun, Pernicious anemia (ICD-10 - D51. 0) [employer] Other 09-06-2023 Evaluation note* Encounter Date Diagnosis [...] use, the patient reduces the risk for MA, CVA, HTN, cardiac dysrhythmias and sudden cardiac [...] to respiratory infections, vascular disease and cancers. [employer] Other 08-21-2023 Evaluation note* Encounter Date Diagnosis Assessment Notes Treatment Notes Treatment Clinical Notes Apr, Mucopurulent chronic bronchitis (ICD-10 - J41.1) [facility] Other 07-19-2023 Evaluation note* Encounter Date Diagnosis Assessment Notes Treatment Notes Treatment Clinical Notes Mar, Pernicious anemia (ICD-10 - D51. 0) [employer] Other 06-12-2023 Evaluation note* Encounter Date Diagnosis Assessment Notes Treatment Notes Treatment Clinical Notes Jan, Pernicious anemia (ICD-10 - D51. 0) [facility] Other 06-06-2023 Evaluation note* Encounter Date Diagnosis [...] Vasiliy, 2023Fatigue, unspecified type (ICD-10 - R53.83) [facility] Other 05-11-2023 Evaluation note* Encounter Date Diagnosis Assessment Notes Treatment Notes Treatment Clinical Notes December, Pernicious anemia (ICD-10 - D51. 0) [facility] Other 03-22-2023 Evaluation note* Encounter Date Diagnosis [...] Z79.4) Oct,Surgical wound infection (ICD-10 - T81.49XA) [facility] Other 02-24-2023 Evaluation note* Encounter Date Diagnosis [...] laterality (ICD-10 - J18.9)Review imaging results from [facility]. CT vs CXR f/u to ensure resolution [employer] Other 02-05-2023 Evaluation note* Encounter Date Diagnosis Assessment Notes Treatment Notes Treatment Clinical Notes Oct, Mucopurulent chronic bronchitis (ICD-10 - J41.1) [employer] Other 01-24-2023 Evaluation note* Encounter Date Diagnosis Assessment Notes Treatment Notes Treatment Clinical Notes Sep, Community acquired p neumonia, unspecified laterality (ICD-10 - J18.9) [employer] [facility] [employer] Other 01-24-2023 Evaluation note* Encounter Date Diagnosis Assessment Notes Treatment Notes Treatment Clinical Notes Sep, Mucopurulent chronic bronchitis (ICD-10 - J41.1) Sep,hronic venous insufficiency (ICD-10 - I87.2) [facility] [employer] Other 01-07-2023 Discharge summary Author Randolph Velasquez [facility] September 08, 2022 9:31amNote Date/TimeJan2022 9:31[place] [address] Discharge Summary Signed Patient: Jose L Ames MR#: [id number] : 1940 Acct:[id number] Age/Sex: 81 / M Adm Date: 3 Loc: Room: [address] [place] [address]: Randolph Velasquez MD Copies to: [...] Course Hospital course: Patient was transferred to [facility] with respiratory distress and hypoxic respiratory failure requiring the use of oxygen. I orderedCAT scan of the chest which showed bilateral infiltration suspected to have pneumonia. Patient had bilateral wheezing indicative of acute COPD exacerbationand bronchospasm. Blood culture from [place] came back negative thus far Patient was [...] ask your primary care provider to obtain [facility] records entirely to follow up on all of the abnormal physical, laboratory, and imaging findings that I have not addressed. Please return back to the emergency room or seek medical attention if your symptoms worsen or return. Discharging you from [facility] does not mean that your medical [...] % (Auto) 91.6, Lymph % (Auto) 3.6, Mckenzie % (Auto) 4.5, Eos % (Auto)0.0, Baso % (Auto) 0.3, Nucleat RBC Rel Count 0.0, Neut # (Auto) 11.9 H, Lymph #(Auto) 0.5 L, Mckenzie # (Auto) 0.6, Eos # (Auto) 0.0, [...] at rest or with minimal exertion. HEENT: [place] conjunctiva and NL buccal mucosa Neck: Supple, [...] []] Discharge Plan Discharge Plan Patient Disposition: [facility] Facility Additional Instructions: I may not have addressed or treated all of your medical illnesses or the abnormal blood work or imaging studies during this hospitalization. Please ask your primary care provider to obtain [facility] records entirely to follow up on [...] seen on current CAT scan done at [facility]. Please collaborate with his primary care [...] symptoms worsen or return. Discharging you from [facility] does not mean that your medical [...] PO HS fluticasone propionate [Flonase] 50 mcg/actuation [place],Suspension 1 spray INTRANASAL DAILY PRN (Reason: Congestion) hydrochlorothiazide 12.5 mg tablet 12.5 mg PO DAILY Follow Up: Liz Plata MD [Active Staff] - (Suspect underlying CAD) Vince Welsh MD [Active Staff] - (COPD. Abnormal CT of the chest) Erich Alejandro DO [Primary Care Provider] - (Follow-up with your Primary Care Provider after discharge from Rehab) Documented By: Randolph Velasquez MD 09/08/22 3354 Signed By: <Electronically signed by Randolph Velasquez MD> 09/08/22 0913 [facility] Work Phone: 1(675) 109-576401-06-2023 Progress note Author Randolph Velasquez [facility] September 07, 2022 9:02amNote Date/TimeJan2022 9:[address] [address] Hospitalist Progress Note Signed Patient: Jose L Ames MR#: [id number] : 1940 Acct:[id number] Age/Sex: 81 / M Adm Date: 3 Loc: 4 Room: [address] [place] [address] Type: ADM IN Attending Dr: Randolph Velasquez [...] and is sitting up in bed HEENT: [place] conjunctiva and NL buccal mucosa Neck: Supple, [...] 10 Mg Tablet PO 09/07/23 09:59 DAILY HSARI Aspirin 81 mg 09/05/22 09:00 09/06/22 09:21 [...] Propionate 1 spray 09/04/22 23:34 Fluticasone Propionate [place] 120 [place]/16 Gm Bottle INTRANASAL 09/04/23 23:33 DAILY PRN [...] over the last 24 hours. We called [facility] to inquire about the blood culture. Blood culture from [facility] showed no growththus far. Swallow evaluation did [...] signed by Randolph Velasquez MD> 09/07/22 0902 [facility] Work Phone: 1(558) 336-457901-05-2023 Progress note Author Randolph Velasquez [facility] September 06, 2022 9:15amNote Date/TimeJan2022 9:15[place] [id number] Hospitalist Progress Note Signed Patient: Jose L Ames MR#: [id number] : 1940 Acct:[id number] Age/Sex: 81 / M Adm Date: 3 Loc: Room: [address] [place] [address] Type: ADM IN Attending Dr: Randolph Velasquez [...] and is sitting up in bed HEENT: [place] conjunctiva and NL buccal mucosa Neck: Supple, [...] Propionate 1 spray 09/04/22 23:34 Fluticasone Propionate [place] 120 [place]/16 Gm Bottle INTRANASAL 09/04/23 23:33 DAILY PRN [...] Units/3 Ml Insuln.Pen SUBCUT 09/06/23 09:09 DAILY [facility] Methylprednisolone Sodium Succinate 40 mg [...] <Electronically signed by Randolph Velasquez MD> 09/06/22914 [facility] Work Phone: 1(881) 941-197201-04-2023 Progress note Author Randolph Velasquez [facility] September 05, 2022 9:46amNote Date/TimeJan2022 9:[place] [address] Hospitalist Progress Note Signed Patient: Jose L Ames MR#: [id number] : 1940 Acct:[id number] Age/Sex: 81 / M Adm Date: 3 Loc: Room: [address] [place] [address] Type: ADM IN Attending Dr: Randolph Velasquez [...] patient is on oxygen. Morbidly obese HEENT: [place] conjunctiva and NL buccal mucosa Neck: Supple, [...] Mg/0.4 Ml Syringe SUBCUT 09/05/23 09:59 DAILY@1000 [facility] Fluticasone Propionate 1 spray 09/04/22 23:34 Fluticasone Propionate [place] 120 [place]/16 Gm Bottle INTRANASAL 09/04/23 23:33 DAILY PRN Congestion Furosemide 40 mg 09/05/22 08:00 Furosemide 40 Mg/4 Ml Vial IV-PUSH 09/05/23 07:59 BID@0800,1600 [facility] Glucose 0 gm 09/05/22 09:37 [...] Units/3 Ml Insuln.Pen SUBCUT 09/05/23 11:59 TID.WM.HS [facility] Protocol Insulin Glargine 15 units 09/05/22 09:45 Insulin Glargine 300 Units/3 Ml Insuln.Pen SUBCUT 09/05/23 09:44 DAILY [facility] Methylprednisolone Sodium Succinate 40 mg [...] 0.4 Mg Cap.Er.24h PO 09/05/23 20:59 QPM [facility] A&P - Hospitalist Assessment/Plan (1) [...] ? Blood cultures were obtained at the [facility] -Counseling about tobacco addiction and the [...] findings and plan. Patient was transferred from [facility]. Initial working diagnosis: -Sepsis secondary to community-acquired pneumonia: Started IV antibiotics. Blood cultures were collected at [facility]. Follow-up and de-escalate accordingly. -Acute hypoxic respiratory failure secondary to pneumonia: Requiring oxygen. Wean off as tolerated -Suspect new onset CHF given elevated BNP, chest x-ray with bilateral vascular congestion, leg edema on exam. Given Lasix. Check echocardiogram Javier Jerry MD Documented By: Randolph Velasquez MD 09/05/22941 Signed By: <Electronically signed by Randolph Velasquez MD> 09/05/22945 [facility] Work Phone: 1(573) [phone] History and physical note Author Javier Murray [facility] September 05, 2022 1:03amNote Date/TimeJanuary 2022 11:14pm[place] [address] Hospitalist H&P Signed Patient: Jose L Ames MR#: [id number] : 1940 Acct:[id number] Age/Sex: 81 / M Adm Date: 3 Loc: 4 Room: [address] [place] [address] Type: ADM IN Attending Dr: Clyde Wright DO Copies to: DO Javier Delatorre MD Paula G Smith, GROMMET WORKER Clyde Wright, DO~ HPI DATE OF EXAMINATION: 09/04/22 CHIEF COMPLAINT: shortness of breath, cough, fever, chills HISTORY OF PRESENT ILLNESS: Mr. Ames is an 81-year-old male with a PMH of T2DM, HTN, BPH that was transferred from the [facility] for elevated troponin, shortness of breath, [...] pain with palpation. Patient arrived to the [facility] emergency room with a pulse ox [...] unless noted in the HPI or below. [facility] Social History Smoking Status: Former smoker Substance [...] ? Blood cultures were obtained at the [facility] Pulmonary edema?recheck BNP ? Lasix x [...] findings and plan. Patient was transferred from [facility]. Initial working diagnosis: -Sepsis secondary to community-acquired pneumonia: Started IV antibiotics. Blood cultures were collected at [facility]. Follow-up and de-escalate accordingly. -Acute hypoxic respiratory failure secondary to pneumonia: Requiring oxygen. Wean off as tolerated -Suspect new onset CHF given elevated BNP, chest x-ray with bilateral vascular congestion, leg edema on exam. Given Lasix. Check echocardiogram Javier Jerry MD Documented By: Lakesha Haskins APRN 09/04/22 7502 Signed By: <Electronically signed by DOROTHY Haskins> 09/04/22 8805 <Electronically signed by Javier Murray MD> 09/05/22 0103 [facility] Work Phone: 1(782) 527-141704-01-2020 History of Present illness Narrative* Patient is [...] multiple comorbidities, [facility] of hypoxemic respiratory failure due to pneumonia, could not exclude diastolic heart failure, and had mild elevation of troponin. * Diagnosis is elevated troponin not related to myocardial injury, but possibly related to supply demand mismatch. * Patient has chronic diastolic heart failure * Shortness of breath class III multifactorial * EKG today sinus rhythm 85 first-degree AV block CT interval 218 ms compared to EKG of 09/05/2022 heart rate has decreased. * 1 Uses cane as ambulatory aid, no falls [facility] [employer] 250 DO Work Phone: Chief complaint Narrative - ReportedLARRY KWAKU is being seen for CAD referral S/P [facility] [employer] 250 DO Work Phone: Chidi complaint Narrative - ReportedLARRY KWAKU is being seen for CAD referral S/P [facility] [employer] 250 DO Work Phone: Evaluation + Plan note No data available for this section [facility] Evaluation + Plan note Future Appointments Appointment Date:04/15/2024 01:00:00 PM Scheduled Provider:Carlos A BAEZ MD Location:[facility] Appointment Type:URO Office Visit [facility] Evaluation + Plan note Future Appointments Appointment Date:10/14/2024 01:00:00 PM Scheduled Provider:Carlos A BAEZ MD Location:[facility] Appointment Type:URO Office Visit [facility] Evaluation + Plan note Future Appointments Appointment Date:08/18/2025 02:00:00 PM Scheduled Provider:Carlos A BAEZ MD Location:[facility] Appointment Type:URO Office Visit [facility] Evaluation note* Diagnosis Onset Date Resolution Status Acute respiratory failure with hypoxia acuteCommunity acquired pneumoniaacuteElevated troponinacuteHypertensionacute Multifactorial functional impairmentacuteType 2 diabetes mellitusacute [facility] Work Phone: evaluation noteNo [employer] Other Evaluation note* Diagnosis Onset Date Resolution Status Cervical spondylosis acuteChronic venous insufficiency of lower extremityacuteGenerally unsteadyacute HTN (hypertension)acuteHypercholesterolemiaacuteNicotine dependenceacuteOSA (obstructive sleep apnea)acutePernicious anemiaacuteType 2 diabetes mellitus with hyperglycemiaacute [facility] Work Phone: Evaluation note* Diagnosis Onset Date Resolution Status Chronic heart failure with preserved eje ction fraction (HFpEF) acuteChronic venous insufficiency of lower extremityacuteGenerally unsteadyacute HTN (hypertension)acuteHypercholesterolemiaacuteNicotine dependenceacuteOSA (obstructive sleep apnea)acutePernicious anemiaacuteStage 3b chronic kidney diseaseacuteType 2 diabetes mellitus with hyperglycemiaacute [facility] Work Phone: Evaluation note* Diagnosis Onset [...] kidney diseaseacuteType 2 diabetes mellitus with hyperglycemiaacute [facility] Work Phone: Evaluation note* Diagnosis Onset Date Resolution Status Chronic heart failure with preserved eje ction fraction (HFpEF) acuteChronic venous insufficiency of lower extremityacuteGenerally unsteadyacute HTN (hypertension)acuteNicotine dependenceacuteOSA (obstructive sleep apnea) acutePernicious anemiaacuteStage 3b chronic kidney diseaseacuteType 2 diabetes mellitus with hyperglycemiaacuteVitamin B12 deficiencynoneaAC[facility] Work Phone: Evaluation note* Diagnosis Imbalance- Primary [...] HistoryPart of colon removed Surgical HistoryCATARACT EXTRACTION, VCIFVSDRB10/2021Surgical HistoryORIF, HUMERUS, XLUBIBVC22/2021Surgical HistoryCOLON RESECTION, OPEN GSLQOHL53/2020 Surgical HistoryTONSILLECTOMYSurgical HistoryCOLONOSCOPYSurgical HistoryTURP WITH [id number] HistoryBellevue HospitalHospitalization HistorySEE SURGICAL ReFashioner Other History general Narrative - ReportedNort Vidit Other History general Narrative - Reported* Type [...] HistoryPart of colon removed Surgical HistoryCATARACT EXTRACTION, CBFYQZPTA11/2021Surgical HistoryORIF, HUMERUS, AIQBYDCL41/2021Surgical HistoryCOLON RESECTION, OPEN RQCZWBY23/2020 Surgical HistoryTONSILLECTOMYSurgical HistoryCOLONOSCOPYSurgical HistoryTURP WITH [id number] HistoryOSA (AHI 17, low O2 82)Hospitalization HistoryBellevue HospitalHospitalization HistorySEE SURGICAL ReFashioner Other History of Present illness Narrative* 82-year-old [...] was prompted by a hospital stay at [facility].Patient was admitted in transfer from [facility], with hypoxemia cough congestion, treated for [...] today sinus rhythm 85 first-degree AV block CT interval 218 ms compared to EKG of [...] arise, * Sincerely, * Cathleen Lopez MD [facility] * I told patient that he should bring his inhalers and use them prior to his perfusion study. [facility] DO Work Phone: Hospital Discharge instructions No data available for this section [facility] Discharge instructions Additional Instructions I may not have addressed or treated all of your medical illnesses or the abnormal blood work or imaging studies during this hospitalization. Please ask your primary care provider to obtain [facility] records entirely to follow up on [...] seen on current CAT scan done at [facility]. Please collaborate with his primary care [...] or your primary care provider. Thank you. [facility] to manage care: - DNRCCA without [...] Repeat urinalysis in 2 weeks - [facility] Work Phone: Progress note No data available for this section [facility] Progress note Author Angelo Iglesias [facility] HospitalNote Date/TimeMarch 2024 8:44[facility] [place] [address] Cancer Center Note Signed Patient: Jose L Ames MR#: [id number] : 1940 Acct:[id number] Age/Sex: 84 / M Type: REG AMB [...] T2DM, HTN, YASMANI, AAA who presented to [facility] emergency room for altered mental status and weakness. [facility] chart review?patient arrived to [facility] via EMS for altered mental status, [...] day, denies alcohol or illicit druguse. At [facility], his iron studies were c/w anemia [...] mg (1/2 x 20 mg) PO BID [id number] mcg (Centrum Silver Men) 1 tab PO [...] up with labs and imaging for review. 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 Pernicious anemia Mucopurulent chronic bronchitis Lumbar spondylosis snf (current) use of insulin Left humeral fracture [...] signed by Angelo Iglesias MD> 11/05/24 0944 [facility] Work Phone: Reason for referral (narrative)No reason for referral information availableMartins Ferry Hospital Work Phone: Chief Complaint and Reason for Visit Chief Complaint Sepsis second to pne umonia Reason for Visit Acute respiratory fa ilure with hypoxia Community acquired pneumonia Elevated troponin Hypertension Multifactorial functional impairment Type 2 diabetes mellitus Chief Complaint 3 month follow up [id number] for VisitCervical spondylosis Chronic venous insufficiency of [...] 1 2:01pm Reason for Visit Admit Date AGNIE (acute kidney injury) October 09, 2024 1:47am [...] 2024 8:53am Reason for Visit Admit Date ANGEI (acute kidney injury) October 09, 2024 1:47am Chronic heart failure with p reserved ejection fraction (HFpEF) October 09, 2024 1:47am Chronic kidney disease October 09 1:47am Diarrhea October 09, 2024 1 :47am Gastroenteritis October 09, 2024 1 :47am YASMANI (obstructive sleep apnea) October 092024 1:47am Sepsis October 09, 2024 1 :47am Syncope October 09, 2024 1 :47am Type 2 diabetes mellitus with hyperglyce [facility] October 09, 2024 1:47am Hypovolemic shock October [...] :47am Type 2 diabetes mellitus with hyperglyce [facility] October 09, 2024 1:47am Hypovolemic shock October [...] 11:31am Type 2 diabetes mellitus with hyperglyce [facility] October 21, 2024 11:31am Pernicious anemia October [...] :47am Type 2 diabetes mellitus with hyperglyce [facility] October 09, 2024 1:47am Hypovolemic shock October [...] April 23, 2025 1 0:53am Nicotine dependence [place] 22nd, 2025 10 :53am Obesity April 23, [...] 2023 End: December 19, 2023Melissa Sneed APRN STOCK REPLENISHER-CAttending ProviderActive Start: December 19, 2023 End: December [...] DateEnd Date Erich Alejandro MD [address] [facility] [place] [id number] PCP - GeneralInternal Medicine01/30/24Team MemberRelationshipSpecialtyStart Date End Date Erich Alejandro MD [address] [place] [address] PCP - GeneralInternal Medicine01/30/24Team MemberRelationshipSpecialtyStart Date End Date Erich Alejandro MD [address] [facility] [place] [address] PCP - GeneralInternal Medicine01/30/24 Jailyn Sepulveda NP [address] [place], [place] [id number] Nurse FiyawdlnhaatEjhjhhdvx98/4/24 Vince Cherry DO [address] [place] [address] Referring HpypnyrziAvsexacqz47/4/24Team MemberRelationshipSpecialtyStart DateEnd Date Erich Alejandro MD [address] [facility] [place] [address] PCP - GeneralInternal Medicine01/30/24 Jailyn Sepulveda NP [address] [place], [place] [phone] Nurse FswpjvxknjojIuazeqhxi47/4/24 Vince Cherry DO [address] [place] [address] Referring HlsyycviuIygocagrt50/4/24 Team Status: Inactive Member Role Status Jeremiah [...] and content) DATE CREATED AUTHOR 10/26/[address] [facility] DATE CREATED AUTHOR AUTHOR'S ORGANIZ ATION 03/09/2023 [facility] DATE CREATED AUTHOR AUTHOR'S ORGANIZ ATION 03/12/2023 [facility] DATE CREATED AUTHOR AUTHOR'S ORGANIZ ATION 03/12/2023 [employer] DATE CREATED AUTHOR AUTHOR'S ORGANIZ ATION 10/06/2024 [facility] DATE CREATED AUTHOR AUTHOR'S ORGANIZ ATION 11/04/2024 [facility] DATE CREATED AUTHOR AUTHOR'S ORGANIZ ATION 04/09/2025 [facility] DATE CREATED AUTHOR AUTHOR'S ORGANIZ ATION 05/03/2025 [facility] Goals (unrecognized section and content) [...] BE BASED ON THE PRIMARY CLINICAL RECORDS. [facility] [employer] [facility]. provides no warranty or guarantee of the accuracy or completeness of information in this document.
[2025-07-19 03:24] LABS: Lactate/Lactic Acid 2.5 mmol/L (0.4-2.0)
[2025-07-19] MEDS: 0.9 % SODIUM CHLORIDE 1,000 ML 500 ML IV (04:08)
[2025-07-19] MEDS: ACETAMINOPHEN 325 MG TABLET 975 MG PO (04:08)
[2025-07-19] MEDS: VANCOMYCIN HCL 1,500 MG in 0.9 % SODIUM CHLORIDE 500 ML 250 MG IV (05:07)
[2025-07-19] MEDS: IBUPROFEN 400 MG TABLET PO (05:08)
[2025-07-19] MEDS: PIPERACILLIN SODIUM/TAZOBACTAM 3.375 GM in 0.9 % SODIUM CHLORIDE 50 ML IV (05:09)
[2025-07-19 05:52] LABS: Hematocrit 33.2 % (42.0-54.0); Hemoglobin 11.5 g/dL (14.0-18.0); Mean Corpuscular HGB Conc 34.6 g/dL (29.9-35.2); Mean Corpuscular Hemoglobin 34.6 pg (25.9-34.0); Mean Corpuscular Volume 100.0 fL (80.0-94.0); Platelet Count 79 10^3/uL (150-450); Red Blood Count 3.32 10^6/uL (4.70-6.10); White Blood Count 12.7 10^3/uL (4.0-11.0)
[2025-07-19 06:17] LABS: Alanine Aminotransferase 28 U/L (16-63); Albumin Globulin Ratio 1.2; Albumin Level 3.2 g/dL (3.4-5.0); Alkaline Phosphatase 81 U/L (46-116); Anion Gap 12.0; Aspartate Amino Transferase 17 U/L (15-37); Blood Urea Nitrogen 18.0 mg/dL (7.0-18.0); Calcium 8.3 mg/dL (8.5-10.1); Carbon Dioxide 27.1 mmol/L (21.0-32.0); Chloride 104 mmol/L (98-107); Estimated GFR (African America >60 (>=60 mL/min/1.73m^2); Estimated GFR (Non-African Ame 50 (>=60 mL/min/1.73m^2); Globulin 2.6 g/dL; Glucose 248 mg/dL (74-106); Potassium 4.1 mmol/L (3.5-5.1); Sodium 139 mmol/L (136-145); Total Protein 5.8 g/dL (6.4-8.2)
[2025-07-19 06:23] LABS: Lactate/Lactic Acid 2.4 mmol/L (0.4-2.0)
--- NOTE | 2025-07-19 07:40 | CM.NOTE ---
Rounds made with Dr. Velasquez, discussed with pt plan of care. Pt OBS status at this time. Inquired at PT and OT for pt, no order at this time. Dr. Velasquez also aware no code status entered for this pt.
[2025-07-19] MEDS: INSULIN ASPART 300 UNIT/3 ML PEN SUBQ ×4 (08:06→21:22)
--- NOTE | 2025-07-19 08:39 | XR_ITS ---
The [address] [address] Patient Name: JOSE L AMES MRN: [id number] date: 1940 Sex: M Assigned Patient Location: [place] Current Patient Location: [place] Accession/Order Number: [id number] Exam Date: 07/19/2025 12:35 Report Date: 07/19/2025 21:33 At the request of: ZO LAURENT MD Procedure: XR ankle LT 2V XR ankle LT 2V 07/19/2025 12:38 PM SIGNS AND SYMPTOMS: ^Pain PROTOCOL: 2 views of the left ankle COMPARISON: None FINDINGS: The tibiotalar joint space is preserved. There are well-corticated ossific structure separate from the medial malleolus. There is no acute displaced fracture. There is plantar and Achilles surface calcaneal spurring. Degenerative changes are noted in the talonavicular joint. There is diffuse soft tissue swelling. Vascular calcifications are present in the soft tissues. XR/XR ankle LT 2V IMPRESSION: No fracture or dislocation. Diffuse soft tissue swelling is noted. Degenerative changes are noted in the midfoot with mild plantar and Achilles surface calcaneal spurring. Impression dictated by: Adrian Nicole M.D. 07/19/2025 9:33 PM Dictation Location: [place] [address] Electronically authenticated by: [id number] Y Date: 07/19/2025 21:33
--- NOTE | 2025-07-19 08:43 | PM.HP ---
HPI H&P: HPI History of Present Illness Chief complaint: WEAKNESS, GERNERALIZED WEAKNESS Narrative: Mr. Mauricio is an 84-year-old gentleman who has been doing fairly well up until last evening when he became sick. He could not provide any specific information but felt something off. He felt weak, exhausted. Report of subtle confusion and disorientation. He came to the emergency room. Basic workup showed some elevation of the white count otherwise unremarkable exam and workup. When patient arrived to the floor he spiked fever. I was notified temperature spike and around 3:30 AM. I started patient on aggressive IV fluid infusion meeting sepsis criteria and started him on a combination of Zosyn and vancomycin. Blood culture has been drawn already in the emergency room department. UA showed only 2 WBC. Chest x-ray is unremarkable. CAT scan of the head is negative for acute intracranial process. This morning the patient is feeling better. His temperature is down. Opioid HPI Opioid Management Most Recent Pain and Opioid Data: Last Pain Scale 8 Today, 08:00 Last Pain Assessment Today, 08:00 Last MAR Pain Assessment Today, 05:08 Last ORT Total Score 0 Today, 03:35 Last ORT Risk Category Low Risk Today, 03:35 PFSH PFS Social History (System 10/12/24 @ 13:10 by Leslie Booth) Highest level of school completed/degree received: high school graduate Little interest or pleasure in doing things: not at all Feeling down, depressed, or hopeless: not at all Meds Home Medications and Allergies Home Medications ?Medication ?Instructions ?Recorded ?Confirmed ?Type amlodipine 10 mg tablet 10 mg PO DAILY 10/08/24 10/08/24 History furosemide 40 mg tablet 20 mg PO DAILY 10/08/24 10/08/24 History insulin glargine 100 unit/mL (3 20 unit subcut DAILY 10/08/24 10/08/24 History mL) subcutaneous pen (Lantus Solostar U-100 Insulin) lisinopril 20 mg tablet 10 mg PO BID 10/08/24 07/19/25 History mirabegron 50 mg tablet,extended 50 mg PO Q24H 10/08/24 07/19/25 History release 24 hr oxybutynin 3.9 mg/24 hr semiweekly 10/08/24 History transdermal patch oxybutynin chloride 5 mg tablet 5 mg PO .QHS 10/08/24 10/08/24 History potassium chloride 10 mEq 10 meq PO DAILY 10/08/24 07/19/25 History tablet,extended release semaglutide 0.25 mg or 0.5 mg (2 2 mg subcut QWEEK 10/08/24 07/19/25 History mg/3 mL) subcutaneous pen injector (Ozempic) tamsulosin 0.4 mg capsule 0.4 mg PO .QHS 10/08/24 10/08/24 History tizanidine 2 mg tablet 2 mg PO .QHS 10/08/24 10/08/24 History Centrum 1 tab PO BID 07/19/25 07/19/25 History Vitamin B-12 07/19/25 History aspirin 81 mg chewable tablet 81 mg PO DAILY 07/19/25 07/19/25 History (Sarah Chewable Low Dose Aspirin) calcium 1 tab PO DAILY 07/19/25 07/19/25 History insulin glargine 100 unit/mL 10 unit subcut DAILY 07/19/25 07/19/25 History subcutaneous solution (Lantus U-100 Insulin) torsemide 10 mg tablet 10 mg PO .every other day 07/19/25 07/19/25 History vit D3-folic zebn-[id number]-B12 1 tab PO BID 07/19/25 07/19/25 History Allergies Allergy/AdvReac Type Severity Reaction Status Date / Time No Known Drug Allergies Allergy Verified 07/18/25 23:47 Exam Narrative Exam Narrative: [pt is awake and alert. oriented to place, time and person, no confusion or disorientation. HEENT: [place] conjunctiva and NL buccal mucosa Neck: Very supple, no tenderness Endocrine: No Thyromegaly. Vascular: No JVD or carotid bruit. Lymphatic: No cervical lymphadenopathy. Chest: CTA no DTP. Heart RRR, no extra sound or murmur. Abd: Soft, no tenderness, no rebound and no rigidity. Increase abd girth therefore clinically I could not exclude the possibility of intra abd mass or organomegaly. LE: No cyanosis or clubbing, no varices or edema. Scabbing of the skin noted on the anterolateral aspect of the left graves with surrounding erythema. Erythema also down to the lateral aspect of the graves to the ankle. No ankle effusion but patient is tender on the lateral aspect of the ankle. Neuro: A A O. Nl speech, comprehension and attention. Nl and symetrical motor and tone examination through out. No confusion or disorientation. []] Constitutional Vital Signs, click to edit/add: Last Vital Signs Temp 97.9 F 07/19/25 07:46 Pulse 81 07/19/25 07:46 Resp 20 07/19/25 04:00 BP 113/66 07/19/25 07:46 Pulse Ox 91 L 07/19/25 07:46 O2 Del Method Room Air 07/19/25 07:46 Results Labs Labs: Short CBC 07/19/25 07/19/25 Range/Units 00:01 04:58 WBC 13.3 H 12.7 H (4.0-11.0) 10^3/uL Hgb 13.7 L 11.5 L (14.0-18.0) g/dL Hct 40.1 L 33.2 L (42.0-54.0) % Plt Count 93 L 79 L (150-450) 10^3/uL BMP 07/19/25 07/19/25 00:01 04:58 Sodium 139 139 Potassium 4.2 4.1 Chloride 102 104 Carbon Dioxide 26.8 27.1 BUN 20.0 H 18.0 Creatinine 1.38 H 1.36 H Glucose 219 H 248 H Calcium 9.0 8.3 L Liver Function 07/19/25 Range/Units 04:58 Total Bilirubin 0.7 (0.2-1.0) mg/dL Direct Bilirubin 0.1 (0.0-0.2) mg/dL AST 17 (15-37) U/L ALT 28 (16-63) U/L Alkaline Phosphatase 81 (46-116) U/L Albumin 3.2 L (3.4-5.0) g/dL Urine 07/19/25 Range/Units 00:03 Urine Color Lt. yellow (YELLOW) Urine Clarity Clear (CLEAR) Urine pH 6.0 (5.0-9.0) Ur Specific [place] 1.015 (1.005-1.025) Urine Protein Trace (NEG/TRACE) mg/dL Urine Glucose (UA) 100 A (NEGATIVE) mg/dL Assessment and Plan Assessment and Plan (1) Sepsis: Plan Sepsis present on admission Patient came in not feeling well. In ER the patient was noted to have slight elevation of white count. Afebrile. ER physician requested a blood culture. He did not start the antibiotic at that time. I was notified around 330 that the patient spiked a fever. I started him on IV fluid infusion, 30 mL/kg. I started him empirically on Zosyn and vancomycin I requested CAT scan of the chest and abdomen. His neck is very supple. No confusion or disorientation. Unlikely meningitis or encephalitis Chest CT showed left basilar atelectasis versus developing infiltration. Other right lung tree-in-bud subtle infiltration. CT abdomen pelvis is negative for acute intracranial process. Patient does have erythema involving the lateral aspect of the left graves all the way down to the ankle. No ankle effusion or limitation in flexion or extension to suggest septic joint. Change antibiotic to vancomycin, ceftriaxone and doxycycline to cover skin infection as well as lung infection. COVID, influenza A and B are negative. Follow lactic acid Follow blood culture. Hypertension Hold BP meds due to above. Hold diuretic due to above. CKD stage III, not far from baseline. UA showed only few WBC Avoid nephrotoxic drugs. Monitor urine output. Diabetes Resume home insulin. Add sliding scale. Continue to titrate to keep blood sugar between 125 and 180. Thrombocytopenia. Appears to be chronic dating back to 2022. Acute worsening thrombocytopenia could be related to sepsis. Continue to monitor platelet count Avoid anticoagulation and tell platelets goes above 90. DVT prophylax Avoid pharmacological intervention due to thrombocytopenia with a platelet count at 79 SCD for DVT prophylaxis Chronic, subacute medical conditions not listed above, abnormal labs and imaging, incidental findings seen on labs and or imaging. These would need to be addressed. Could be addressed later on or in the outpatient setting by PCP collaboration with other needed outpatient providers when time and condition are appropriate.
[2025-07-19] MEDS: 0.9 % SODIUM CHLORIDE 1,000 ML 400 ML IV (09:17)
[2025-07-19] MEDS: ASPIRIN 81 MG TAB.CHEW PO (09:32)
[2025-07-19] MEDS: DOXYCYCLINE MONOHYDRATE 100 MG CAPSULE PO ×2 (09:33→21:22)
--- NOTE | 2025-07-19 10:08 | SWNOTE1 ---
SW met with pt to discuss dc needs. Pt lives at home with his . Pt normally uses a cane to get around and was outside for several hours the other day planting tulip bulbs. He voiced the past week he has felt weaker, just tired. Pt does have a walker at home if he needs it as well. Pt has no services coming in at this time. At this time unsure of discharge needs. SW to follow as needed.
--- NOTE | 2025-07-19 11:52 | CM.NOTE ---
Medicare Outpatient Observation Notice discussed with pt, pt verbalizes understanding and signs paper. Original given to pt and copy placed on pt's chart.
[2025-07-19] MEDS: 0.9 % SODIUM CHLORIDE 1,000 ML 125 ML IV (13:12)
[2025-07-19] MEDS: INSULIN GLARGINE 300 UNIT/3 ML INSULN.PEN 10 UNIT SQ ×2 (13:16→21:22)
[2025-07-19] MEDS: ACETAMINOPHEN 325 MG TABLET 650 MG PO (16:24)
[2025-07-19 16:46] LABS: Lactate/Lactic Acid 2.6 mmol/L (0.4-2.0)
--- NOTE | 2025-07-19 16:48 | PC.NURSE ---
Dr. Velasquez aware of patients fever, AMS and elevated lactate
[2025-07-19 20:06] LABS: Lactate/Lactic Acid 1.4 mmol/L (0.4-2.0)
[2025-07-20 03:39] VITALS: BP 132/62; PULSE 84; TEMP 37.5; O2SAT 91
[2025-07-20 06:55] LABS: Hematocrit 30.5 % (42.0-54.0); Hemoglobin 10.5 g/dL (14.0-18.0); Mean Corpuscular HGB Conc 34.4 g/dL (29.9-35.2); Mean Corpuscular Hemoglobin 34.4 pg (25.9-34.0); Mean Corpuscular Volume 100.0 fL (80.0-94.0); Platelet Count 74 10^3/uL (150-450); Red Blood Count 3.05 10^6/uL (4.70-6.10); White Blood Count 8.6 10^3/uL (4.0-11.0)
[2025-07-20 07:00] LABS: Anion Gap 10.2; Blood Urea Nitrogen 13.0 mg/dL (7.0-18.0); Calcium 8.0 mg/dL (8.5-10.1); Carbon Dioxide 26.6 mmol/L (21.0-32.0); Chloride 106 mmol/L (98-107); Estimated GFR (African America >60 (>=60 mL/min/1.73m^2); Estimated GFR (Non-African Ame >60 (>=60 mL/min/1.73m^2); Glucose 133 mg/dL (74-106); Potassium 3.8 mmol/L (3.5-5.1); Sodium 139 mmol/L (136-145)
[2025-07-20 07:08] LABS: Lactate/Lactic Acid 1.0 mmol/L (0.4-2.0)
--- NOTE | 2025-07-20 07:45 | CM.NOTE ---
Rounds made with Dr. Velasquez, discussed plan of care with pt and family. PT and OT will evaluate pt for discharge planning. Pt changed to inpatient status. Consult Dr. Law for further recommendations.
[2025-07-20 08:00] VITALS: BP 159/82; PULSE 84; TEMP 36.8; O2SAT 91
[2025-07-20] MEDS: INSULIN GLARGINE 300 UNIT/3 ML INSULN.PEN 10 UNIT SQ (08:24)
[2025-07-20] MEDS: ACETAMINOPHEN 325 MG TABLET 650 MG PO ×3 (08:24→21:50)
[2025-07-20] MEDS: DOXYCYCLINE MONOHYDRATE 100 MG CAPSULE PO (08:24)
[2025-07-20] MEDS: ASPIRIN 81 MG TAB.CHEW PO (08:24)
[2025-07-20] MEDS: VANCOMYCIN HCL 1,500 MG in 0.9 % SODIUM CHLORIDE 500 ML 250 MG IV (08:24)
--- NOTE | 2025-07-20 08:50 | P.PN_ITS ---
Progress Note: Subjective Subjective Interval history: Patient continues to report pain in the left leg on the lateral aspect of the left graves down to the ankle. No chest pain. No abdominal pain. Exam Narrative Exam Narrative: [pt is awake and alert. oriented to place, time and person, no confusion or disorientation. HEENT: [place] conjunctiva and NL buccal mucosa Neck: Very supple, no tenderness Endocrine: No Thyromegaly. Vascular: No JVD or carotid bruit. Lymphatic: No cervical lymphadenopathy. Chest: CTA no DTP. Heart RRR, no extra sound or murmur. Abd: Soft, no tenderness, no rebound and no rigidity. Increase abd girth therefore clinically I could not exclude the possibility of intra abd mass or organomegaly. LE: No cyanosis or clubbing, no varices or edema. Scabbing of the skin noted on the anterolateral aspect of the left graves with surrounding erythema. Erythema also down to the lateral aspect of the graves to the ankle. No persistent small ankle effusion but patient is tender on the lateral aspect of the ankle. Neuro: A A O. Nl speech, comprehension and attention. Nl and symetrical motor and tone examination through out. No confusion or disorientation. []] Constitutional Vital Signs, click to edit/add: Last Vital Signs Temp 98.2 F 07/20/25 08:00 Pulse 84 07/20/25 08:00 Resp 18 07/20/25 08:00 BP 159/82 H 07/20/25 08:00 Pulse Ox 91 L 07/20/25 08:00 O2 Del Method Room Air 07/20/25 08:00 Progress Note: Objective Labs Labs: Short CBC 07/20/25 Range/Units 06:43 WBC 8.6 (4.0-11.0) 10^3/uL Hgb 10.5 L (14.0-18.0) g/dL Hct 30.5 L (42.0-54.0) % Plt Count 74 L (150-450) 10^3/uL BMP 07/20/25 06:43 Sodium 139 Potassium 3.8 Chloride 106 Carbon Dioxide 26.6 BUN 13.0 Creatinine 1.14 Glucose 133 H Calcium 8.0 L Progress Note: A&P Assessment and Plan (1) Sepsis: Plan Sepsis present on admission associated with multiple sepsis related organ dysfunction as listed below Worsening erythema, induration and tenderness on the lateral aspect of the left graves and ankle. Development of mild left lateral ankle effusion. ANGIE secondary to sepsis, resolved. Confusion, disorientation, metabolic encephalopathy, septic encephalopathy, resolved. Lactic acid elevation, resolved. Leukocytosis have resolved. Hypotension, early shock, resolved. Blood cultures are pending CT abdomen does not show any acute intra-abdominal process UA is negative for UTI CT chest showed faint tree-in-bud opacity but the patient does not have any respiratory symptoms whatsoever. Continue ceftriaxone and vancomycin. Discontinue doxycycline. Patient does not have respiratory symptoms. Requested a podiatry consultation in case patient needs ankle aspiration. Hypertension. Patient presented with hypotension Hypotension had resolved Resume BP meds at small dose CKD stage III, not far from baseline. ANGIE secondary to sepsis had resolved. UA showed only few WBC Avoid nephrotoxic drugs. Monitor urine output. Diabetes with hyperglycemia Resume home insulin. Add sliding scale. Continue to titrate to keep blood sugar between 125 and 180. Thrombocytopenia. Appears to be chronic dating back to 2022. Acute worsening thrombocytopenia could be related to sepsis. Continue to monitor platelet count Avoid anticoagulation and tell platelets goes above 90. DVT prophylax Avoid pharmacological intervention due to thrombocytopenia with a platelet count at 79 SCD for DVT prophylaxis Functional impairment secondary to above Patient lives with his who is unable to take care of him. Requested PT OT eval and treatment Requested case management consultation to see if patient qualifies to go to SNF care. Anemia, no evidence of acute blood loss. Patient will likely require to have anemia workup to be done in the outpatient setting to be handled by PCP in collaboration with other needed outpatient providers. This may include but not limited to EGD, colonoscopy, referral to see hematology and other needed age-appropriate cancer screening. Chronic, subacute medical conditions not listed above, abnormal labs and imaging, incidental findings seen on labs and or imaging. These would need to be addressed. Could be addressed later on or in the outpatient setting by PCP collaboration with other needed outpatient providers when time and condition are appropriate. I discussed this case with his and daughter on 07/19 outside his room. I discussed this case with his daughter and son-in-law at the bedside on 07/20 I provided him information about his disease, prognosis, expectation and trajectory. I answered all her questions
--- OUTSIDE RECORDS SUMMARY | 2025-07-20 09:08 | XMS_ITS | CCD ---
Author Organization [facility] Care Team Providers Care Patient Registration Manager Name Role Phone ERICH ALEJANDRO Primary Care Physician [phone] DO Erich Alejandro Primary Care Provider MD [...] Provider Harris DAUGHERTY, Angelo Jason Attending Provider [phone] INPATIENT, TELENEUROLOGY Consulting Unavail able Erich Alejandro [...] Care Provider Staci Burnette MD Attending Provider Erich Alejandro DO Attending Provider Carlos A BAEZ Attending Unavailable Carlos A BAEZ Attending Unavailable Sobeida Medina Attending Unavailable Carlos A BAEZ Attending Unavailable Javon CRISTINA Erich Primary Care Provider Javon Erich Attending Provider [phone] Staci Burnette MD Attending Provider Gracia Krishna Attending Provider Javon CRISTINA Erich Primary Care Provider [phone] Javon Erich Attending Provider [phone] Angelo Iglesias Admitting Angelo Hernandez Attending Lily [...] Enzyme (Shruti) Inhibitors; Translations: [Shruti Inhibitors]Allergy to wboonipuu22-42-8782NhefhEatylprmsClermont County Hospital (20 sources)AcetaminophenDrug Vmfkrce84-76-2126GOCILHekoitwzgCleveland Clinic [facility] (1 source)AcetaminophenDrug AllergyBarney [facility] (1 source)patient allergy list reviewed by nurse or physiciaPropensity to adverse tweaqfnkg15-69-9051Gzutzwb:[employer] Other (1 source)Acetaminophen; Translations: [Tylenol][facility]ergyGrant [facility] Medications Current Medications MedicationDrug Class(es)DatesSig (Normalized)Sig (Original)acetaminophen 325 mg oral tablet (20 sources)Start: 39-27-7028pepv 2 tablets by mouth every six hours as needed for painacetaminophen 325 mg Tab 650 mg = 2 tab(s), Oral, q6hr, PRN pain, Refills(s) 0 Start Date: 09/10/22 Status: OrderedStart: 09-08-2022 End: 92-03-1535eerl 1-3 tablets by mouth every six hours as needed for pain Acetaminophen 325 mg Tablet Discontinued 650 MG PO Every 6 hours as needed for Pain Scale 1 - 3 or fever 0 September 08, 2022 1:00am February 20, 2024 2:42pm Start: 09-08-2022 End: 53-02-0570dlir 650 mg by mouth every six hoursAcetaminophen [...] 0.83 mg/ml inhalation solution (16 sources)beta2-Adrenergic AgonistStart: 50-88-4761rfoa 2.5 mg by inhalation every four hoursalbuterol 0.083% Inh Idalia 3 mL 2.5 mg, 3 mL, NEB, q4hr Shortness of breath or wheezing, Refill(s) 0 Start Date: 09/10/22 Status: OrderedAlbuterol Sulfate (2.5 MG/3ML) 0.083% 3 mL as needed Inhalation every 6 hrs Not-Taking ascorbic acid 500 mg oral tablet (20 sources)Vitamin CStart: 52-03-2528WPXJIHZV ACID PO 500 mg 04/15/2024 Active Start: 46-09-6986htyeulte acid 500 mg Start Date: 04/15/24 Status: Ordered Repeat number: 1Start: 32-68-0288peuxtmsm acid 500 mg Start Date: 04/15/24 Status: OrderedStart: 13-98-1028ddzq 1 tablet by mouth once dailyAscorbic Acid (Vitamin C) 500 mg tablet,chewable Active 500 MG PO Daily February 20, 2024 12:00am Comp lies with drug therapyaspirin 81 mg delayed release oral tablet (20 sources)Platelet Aggregation Inhibitor, Nonsteroidal Anti-inflammatory Drug Start: 47-76-0316xirs 1 tablet by mouth once dailyaspirin 81 mg Oral EC Tab 81 mg = 1 tab(s), Oral, Daily, Refills(s) 0 Start Date: 09/10/22 Status: Ordered Repeat number: 1Start: 80-00-5044azro 1 tablet by mouth every twenty-four hours Aspirin 81 81 MG 1 tablet Orally Once a day Jan, ActiveStart: 02-19-2018 End: 43-51-0332upqa 1 tablet by mouth once dailyAspirin 81 mg Tablet Discontinued 81 MG PO Daily September 04, 2022 1:00am May 18, 2025 12:14 pmStart: 05-28-3644Yiadd-Glucose Meter (Freestyle Lite Meter) kit (17 sources)Start: 03-54-4883Tazoe-Glucose Meter (Freestyle Lite Meter) kit Active 0 .Route January 08, 2024 11:00pm to check blood sugar dailyStart: 69-64-4997Hlfww-Glucose Meter (Freestyle Lite Meter) kit Active 0 .Route 1 January 09, 2024 12:00am to check blood sugar dailycalcium carbonate 1250 mg chewable tablet (1 source)Start: 06-37-6738mmvv 1 tablet by mouth once dailyCalcium Carbonate 500 mg calcium (1,250 mg) tablet,chewable Active 500 MG PO Daily May 18, 2025 12:00am Complies with drug therapyCentrum Silver (1 source)Start: 30-67-5398Hgkjyna Silver Oral, Daily Start Date: 12/11/24 Status: Ordered Repeat number: 1Centrum Silver 50+Men - (16 sources)Centrum Silver 50+Men - as directed Orally ActiveCholecalciferol (20 sources)Vitamin DStart: 72-37-7867QZHZPLCVCHBBVET PO 10 mcg 04/15/2024 ActiveStart: 38-98-4191nmeaqheiygnadbg 10 mcg Start Date: 04/15/24 Status: Ordered Repeat number: 1Start: 61-95-1079ldybnutikszwvtm 10 mcg Start Date: 04/15/24 Status: OrderedStart: 02-27-0244loqo 1 tablet by mouth once daily Cholecalciferol [...] mg/actuat metered dose nasal spray (20 sources)CorticosteroidStart: 24-69-6297zvggzarszho (Flonase) 50 MCG/ACT nasal spray Daily 11/05/2023 ActiveStart: 11-05-2023 End: 75-59-3082Yzgiebpuese Propionate 50 mcg/actuation spray,suspension Discontinued 2 SPRAY INTRANASAL Daily November 05, 2023 1:00am February 20, 2024 2:45pmStart: 09-04-2022 End: 91-53-9497Msmftuimmbv Propionate (Flonase) 50 mcg/actuation [place],Suspension Discontinued 1 SPRAY INTRANASAL Daily as needed [...] 40.8 mg oral capsule (1 source)Oxidation-Reduction AgentStart: 79-44-5098Vonhfx oral capsule 1 cap(s), Oral, Daily, 40 caplet(s), Refill(s) 1, [facility]/pharmacy #[id number], 180, cm, 0 04/07/25 10:35:00 EDT, Height/Length Dosing, 110.5, kg, 04/07/25 10:35:00 EDT, Weight Dosing Start Date: 04/07/25 Status: Ordered Quantity: 40.0 Unit: caplet(s) Repeat number: 2lisinopril 20 mg oral tablet (20 sources)Angiotensin Converting Enzyme InhibitorStart: 07-20-2024 End: 16-67-8944puhd 10 mg by mouth twice dailyLisinopril 20 mg tablet Active 10 MG PO Twice daily November 18, 2024 5:05pm Complies with drug therapyStart: 67-07-7302qxmsvhvjve 20 mg Tab Refills(s) 0 Start Date: 01/29/24 Status: Ordered Repeat number: 1Start: 11-11-2023 End: 41-63-8137sfqk 1 tablet by mouth once dailyLisinopril 20 mg tablet Discontinued 0 .ROUTE .COMPLEX November 11, 2023 1:23pm July 20, 2024 5:55pm TAKE 1 TABLET BY MOUTH EVERY DAYStart: 04-07-2023 End: 18-47-7486rcem 1 tablet by mouth once dailyLisinopril 20 mg tablet Discontinued 20 MG PO Daily November 05, 2023 1:00am November 11, 2023 1:23pmStart: 09-19-2022 End: 19-59-5113tqft 1 tablet by mouth once dailylisinopril 20 mg Tab 20 mg = 1 tab(s), Oral, Daily, X 30 day(s), # 30 tab(s), Refills(s) 0, Pharmacy: [facility]/pharmacy #[id number], 180, cm, 08/07/21 10:07:00 EST, Height/Length Dosing, 110.8, kg, 08/07/21 10:07:00 EST, Weight Dosing Start Date: 09/19/22 Stop Date: 10/19/22 Status: OrderedStart: 09-08-2022 End: 62-96-5827dchw 1 tablet by mouth once dailyLisinopril 10 mg Tablet Discontinued 10 MG PO Daily 0 September 08, 2022 1:00am November 05, 2023 12:25pm Start: 12-23-2020 End: 96-28-5877fssx 1 tablet by mouth once dailyLisinopril 20 mg Tablet Discontinued 20 MG PO Daily September 04, 2022 1:00am September 08, 2022 10:19am24 hr mirabegron 25 mg extended release oral tablet (20 sources)beta3-Adrenergic AgonistStart: 74-03-4538dyve 1 tablet by mouth once dailyMirabegron (Myrbetriq) 25 mg tablet extended release 24 hr Active 25 MG PO Daily April 23, 2025 12:00am Complies with drug therapyStart: 03-08-2025 take 1 tablet by mouth once dailyMyrbetriq 50 mg oral tablet, extended release 50 mg = 1 tab(s), Oral, Daily, # 90 tab(s), Refills(s) 3, Pharmacy: [facility]/pharmacy #[id number], 180, cm, 04/15/24 13:22:00 EDT, Height/Length Dosing, 108, kg, 04/15/24 13:22:00 EDT, Weight Dosing Start Date: 03/08/25 Status: Ordered Quantity: 90.0 Unit: tab(s) Repeat number: 4Start: 01-29-2024 End: 84-55-1638ueke 1 tablet by mouth once dailyMirabegron 50 mg tablet extended release 24 hr Discontinued 50 MG PO Daily February 05, 2024 12:00am February 20, 2024 2:67niZj-Vzi-Myjso-S7-Xvqbenu-Agdgtc (Centrum Silver Men) 213-39-589-300 mcg tablet (18 sources)Start: 41-90-7712jrdn 1 tablet by mouth once daily Mh-Gdl-Ucysg-C0-Bjstxam-Imotdz (Centrum Silver Men) 363-16-117-300 mcg tablet Active 1 TAB PO DailyNovember 05, 2023 1:00am Complies with drug therapyStart: 38-26-3471skeq 1 tablet by mouth once dailyStart: 71-74-9851voof 1 tablet by mouth once vhixeKr-Jvg-Qcikk-T7-Qonsfnl-Kubvfp (Centrum Silver Men) 151-41-246-300 mcg tablet Active 1 TAB [facility] DailyOhio[facility] 20[facility] 12:00amStart: 80-13-1472vjvv 1 tablet by mouth once nrtzbNw-Lbe-Tjtth-N1-Nopgcwf-Grpotd (Centrum Silver Men) 495-64-279-300 mcg tablet Active 1 TAB PO DailyOhio[facility] 2023 1:00amoxybutynin chloride 5 mg oral tablet (20 sources)Cholinergic Muscarinic AntagonistStart: 68-74-7422vbpa 1 tablet by mouth at bedtimeoxybutynin 5 mg Tab 5 mg = 1 tab(s), Oral, Bedtime, Take 30 min prior to bedtime., # 30 tab(s), Refills(s) 11, Pharmacy: [facility]/pharmacy #[id number], 180, cm, 04/15/24 13:22:00 EDT, Height/Length Dosing, 108,kg, 04/15/24 13:22:00 EDT, Weight Dosing Start Date: 04/15/24 Status: OrderedStart: 09-04-2022 End: 13-24-3583mkne 1 tablet by mouth at bedtimeOxybutynin Chloride 5 mg Tablet Discontinued 5 MG PO Bedtime September 04, 2022 1:00am September 08, 2022 10:19am Start: 08-07-2021 End: 53-62-2472nonj 1 tablet by mouth once dailyOxybutynin Chloride 10 mg tablet extended release 24hr Discontinued 10 MG PO Daily September 04, 2022 1:00am February 20, 2024 2:48pmpotassium chloride 10 meq extended release oral tablet (20 sources)Start: 17-80-1557lryd 1 tablet by mouth once dailypotassium chloride CR (Klor-Con) 10 MEQ ER tablet Take 10 mEq by mouth Daily 07/02/2024 Active Start: 03-26-2024 End: 30-90-6889yiow 1 tablet by mouth once dailyPotassium Chloride 10 mEq tablet extended release Active 0 .ROUTE .COMPLEX April 21, 2025 9:03pm TAKE 1 TABLET BY MOUTH EVERY DAY Complies with drug therapyStart: 11-05-2023 End: 83-57-2636bksi 1 tablet by mouth once dailyPotassium Chloride 10 mEq tablet extended release Discontinued 10 MEQ PO Daily November 05, 2023 1:00am March 26, 2024 11:38amStart: 67-66-8411didz 1 tablet by mouth every twenty-four hours Klor-Con 10 10 MEQ 1 Tablet Orally daily for 30 day(s) Sep, ActiveStart: 09-08-2022 End: 95-51-4401fqno 1 tablet by mouth once dailyPotassium Chloride 15 mEq tablet,ER particles/crystals Discontinued 15 MEQ PO Daily September 1:00am November 05, 2023 12:26pmRisa-Bid Probiotic - (12 sources)[place]-Bid Probiotic - as directed Orally ActiveSemaglutide (20 sources)Start: 20-34-3171ulxbre 0.25 mg by subcutaneous injection every week, then inject 0.5 mg by subcutaneous injection every weekSemaglutide (Ozempic) 0.25 mg or 0.5 mg (2 mg/3 mL) pen injector Active 0 .ROUTE .COMPLEX October 15, 2024 8:00am INJECT 0.25 MG SUBCUTANEOUSLY WEEKLY FOR 4 WEEKS, THEN 0.5 MG WEEKLY THEREAFTER Complies with drug therapyStart: 26-52-4868odkzfo 0.25 mg by subcutaneous injection every week, then inject 0.5 mg by subcutaneous injection every weekStart: 42-97-7454gdlllm 0.25 mg by subcutaneous injection every week, then inject 0.5 mg by subcutaneous injection every weekSemaglutide (Ozempic) 0.25 mg or 0.5 mg (2 mg/3 mL) pen injector Active 0 .ROUTE .COMPLEX October 15, 2024 8:00am INJECT 0.25 MG SUBCUTANEOUSLY WEEKLY FOR 4 WEEKS, THEN 0.5 MG WEEKLY THEREAFTERStart: 54-00-2762hifaux 0.25 mg by subcutaneous injection every week, then inject 0.5 mg by subcutaneous injection every week Semaglutide (Ozempic) 0.25 mg or 0.5 mg (2 mg/3 mL) pen injector Active 0 .ROUTE .COMPLEX October 15, 2024 7:00am INJECT 0.25 MG SUBCUTANEOUSLY WEEKLY FOR 4 WEEKS, THEN 0.5 MG WEEKLY THEREAFTERStart: 04-09-2024 End: 71-48-8156nypjeb 0.25 mg by subcutaneous injection every week, then inject 0.5 mg by subcutaneous injection every weekSemaglutide (Ozempic) 0.25 mg or 0.5 mg (2 mg/3 mL) pen injector Discontinued 0 SUBCUT every week April 09, 2024 12:00am October 15, 2024 8:00am 0.25mg SC for 4 weeks, then increase to 0.5mg weeklyStart: 04-09-2024 End: 77-78-3770jqpjti 0.25 mg by subcutaneous injection every week, then inject 0.5 mg by subcutaneous injection every weekSemaglutide (Ozempic) 0.25 mg or 0.5 mg (2 mg/3 mL) pen injector Discontinued 0 SUBCUT every week April 08, 2024 11:00pm October 15, 2024 7:00am 0.25mg SC for 4 weeks, then increase to 0.5mg weeklyStart: 64-99-9486aewwdd 0.25 mg by subcutaneous injection every week, then inject 0.5 mg by subcutaneous injection every weekSemaglutide (Ozempic) 0.25 mg or 0.5 mg (2 mg/3 mL) pen injector Active 0 SUBCUT every week 9 April 08, 2024 11:00pm 0.25mg SC for 4 weeks, then increase to 0.5mg weeklyStart: 12-73-2210zgjthc 0.25 mg by subcutaneous injection every week, then inject 0.5 mg by subcutaneous injection every weekSemaglutide (Ozempic) 0.25 mg or 0.5 mg (2 mg/3 mL) pen injector Active 0 SUBCUT every week 9 April 09, 2024 12:00am 0.25mg SC for 4 weeks, then increase to 0.5mg weeklyOzempic (1 source)Start: 49-98-5211Gihrium SubCutaneous Start Date: 12/11/24 Status: Ordered Repeat number: 1Semaglutide,0.25 or 0.5MG/DOS, 2 MG/3ML solution pen-injector (5 sources)Start: 29-08-6415Ianjldgtpis,0.25 or 0.5MG/DOS, 2 MG/3ML solution pen-injector every week 04/09/2024 ActiveSymbicort 160/4.5 inhalation aerosol with adapter (5 sources)Start: 38-18-4038asmz 2 puff(s) by inhalation twice dailySymbicort 160/4.5 inhalation aerosol with adapter 2 puff(s), Inhalation, BID, Refill(s) 0 Start Date: 09/10/22 Status: Orderedtiotropium 0.018 mg inhalation powder (20 sources)AnticholinergicStart: 94-91-7971rvtb 1 capsule by inhalation once dailySpiriva HandiHaler 18 mcg inhalation capsule 18 mcg = 1 cap(s), Inhalation, Daily, Refills(s) 0 Start Date: 09/10/22 Status: OrderedStart: 33-16-1321nyrd 1 capsule by inhalation once dailySpiriva HandiHaler 18 mcg inhalation capsule 18 mcg = 1 cap(s), Inhalation, Daily, Refills(s) 0 Start Date: 09/10/22 Status: OrderedStart: 09-08-2022 End: 59-88-2959vckd 1 capsule by inhalation once dailyTiotropium Brothers (Spiriva With Handihaler) 18 mcg capsule, w/inhalation device Discontinued 1 CAP INHALATION Daily September 08, 2022 1:00am November 05, 2023 12:28pm puncture 1 cap using device; one dose = 2 inhalationstorsemide 10 mg oral tablet (20 sources)Loop DiureticStart: 43-40-3216pvff 2 tablets by mouth once daily Torsemide 10 mg tablet Active 0 .ROUTE .COMPLEX 180 February 14, 2025 3:00pm TAKE 2 TABLETS BY MOUTH DAILY Complies with drug therapyStart: 11-05-2023 End: 36-95-8924mlpv 2 tablets by mouth once dailyTorsemide 10 mg tablet Discontinued 20 MG PO Daily November 05, 2023 12:28pm October 14, 2024 5:25pm Start: 74-72-6351sshf 20 mg by mouth once dailyTorsemide Active 20 MG PO Daily November 05, 2023 12:28pmStart: 64-04-5606dwrq 5 mg by mouth once dailytorsemide (Demadex) 10 MG tablet Take 5 mg by mouth Daily 06/17/2023 ActiveStart: 09-08-2022 End: 60-66-1181uzek 1 tablet by mouth once dailyTorsemide 10 mg Tablet Discontinued 10 MG PO DAILY@0800 30 October 14, 2024 1:00am January 3:01pmTorsemide 10 MG 2 Orally daily Activetrospium chloride 20 mg oral tablet (1 source)Cholinergic Muscarinic AntagonistStart: 66-52-9974bmuo 1 tablet by mouth at bedtimetrospium 20 mg oral tablet 20 mg = 1 tab(s), Oral, Bedtime, # 30 tab(s), Refills(s) 11, Pharmacy: [facility]/pharmacy #[id number], 180, cm, 04/15/24 13:22:00 EDT, Height/Length [...] solution (19 sources)Anticholinergic, beta2-Adrenergic AgonistStart: 09-08-2022 End: 28-35-3590jvoj 1 mL by inhalation three times daily as needed for wheezing Ipratropium-Albuterol 0.5 mg-3 mg(2.5 mg base)/3 mL Solution For Nebulization Discontinued 3 ML INHALATION Three times daily as needed for wheezing 0 September 08, 2022 1:00am November 05, 2023 12:29pmamLODIPine 10 mg oral tablet (20 sources)Dihydropyridine Calcium Channel BlockerStart: 32-95-4463jygp 5 mg by mouth twice dailyAmlodipine 10 mg tablet Active 5 MG PO Twice daily July 20, 2024 5:52pm On Hold: Until follow-up with your primary care physician Complies with drug therapyStart: 03-31-2024 End: 38-27-3591burd 1 tablet by mouth once dailyAmlodipine 10 mg tablet Discontinued 0 .ROUTE .COMPLEX March 31, 2024 8:47am July 20, 2024 5:53pm TAKE 1 TABLET BY MOUTH EVERY DAYStart: 02-20-2024 End: 83-28-9642bzfn 5 mg by mouth once dailyAmlodipine 10 mg tablet Discontinued 5 MG PO Daily 0 February 20, 2024 2:43pm March 31, 2024 8:47amStart: 02-20-2024 End: 30-45-9245oqjd 5 mg by mouth once dailyAmlodipine Discontinued 5 MG PO Daily 0 February 20, 2024 2:43pm March 31, 2024 8:47amStart: 09-08-2022 End: 38-33-6053kasi 1 tablet by mouth once dailyAmlodipine 10 mg Tablet Discontinued 10 MG PO Daily 0 September 08, 2022 1:00am February 20, 2024 2:55pm take 1 tablet by mouth once dailyNorvasc 5 MG Oral Tablet Take 1 tablet daily Quantity: 0 Refills: 0 Ordered: 11-Mar-2023 DO Activeamoxicillin 875 mg / clavulanate 125 mg oral tablet (19 sources)Penicillin-class AntibacterialStart: 09-08-2022 End: 09-49-1592rajh 1 tablet by mouth twice dailyAmoxicillin-Pot Clavulanate 875-125 mg tablet Discontinued 1 TAB PO Twice daily 14 September 08, 2022 1:00am November 05, 2023 12:22pmazithromycin 250 mg oral tablet (3 sources)Macrolide AntimicrobialStart: 62-60-5596Kpcdlijaputk 250 MG Oral Tablet Quantity: 6 Refills: 0 Ordered: 10-Jan-2023 DO Start : 10-Jan-2023 C ompleteStart: 21-45-1239Iuqqstbergha 250 MG as directed Orally daily for 5 days December, ActiveB-12 - up to 1000 mcg (20 sources)Start: 27-62-4611I-12 - up to 1000 mcg Jul, 1000 mcgStart: 70-59-1661A-12 - up to 1000 mcg Jun, 1000 mcgStart: 56-32-8876I-12 - up to 1000 mcg Mar, 1000 mcgStart: 62-12-8630Wdsfp: 30-04-8657I-12 - up to 1000 mcg Jan, 1000 mcgStart: 38-34-0620Mcged: 93-98-9726W-12 - up to 1000 mcg December, 1000 mcgStart: 40-17-0018Cllhs: 43-84-8878E-12 - up to 1000 mcg Oct, 1000 mcgStart: 82-97-9942Kufqm: 19-43-9827S-12 - up to 1000 mcg Oct, 1000 mcgStart: 89-99-7962Fjsqu: 94-42-7351R-12 - up to 1000 mcg Sep, 1000 mcgbetamethasone 0.5 mg/ml / clotrimazole 10 mg/ml topical cream (15 sources)Azole Antifungal, CorticosteroidStart: 05-29-2024 End: 89-80-0332Jxddymuqelzi-Betamethasone 1-0.05 % cream Discontinued 1 APPLIC TOPICAL Twice daily 45 30 2023 12:00am May 18, 2025 12:51fg034 actuat budesonide 0.16 mg/actuat / formoterol fumarate 0.0045 mg/actuat metered dose inhaler (20 sources)Corticosteroid, beta2-Adrenergic AgonistStart: 09-08-2022 End: 24-42-2995Ccldtajjxn-Formoterol (Symbicort) 160-4.5 mcg/actuation HFA aerosol inhaler Discontinued [...] mg/ml ophthalmic solution (20 sources)Start: 11-05-2023 End: 96-04-6861Ltejhqclzdmptodpszmmua Sodium 0.5 % dropperette Discontinued 1 DROPS OPHTHALMIC As Directed November 05, 2023 1:00am February 20, 2024 2:44pmStart: 11-05-2023 End: 49-79-7202Pcatolgzyidimqilogpgbi Sodium Discontinued 1 DROPS OPHTHALMIC As Directed [...] 0.5 % dropperette (9 sources)Start: 11-05-2023 End: 27-74-8402Waiwjqmdlksdzcedranpbs Sodium 0.5 % dropperette Discontinued 1 DROPS OPHTHALMIC As Directed November 05, 2023 1:00am February 20, 2024 2:44pmStart: 11-05-2023 End: 90-35-8943Uwnaknilxayfsjkfjoxngh Sodium 0.5 % dropperette Discontinued 1 DROPS OPHTHALMIC As Directed November 05, 2023 12:00am February 20, 2024 1:44pm carvedilol 6.25 mg oral tablet (20 sources)alpha-Adrenergic David, beta-Adrenergic BlockerStart: 11-05-2023 End: 25-59-5170xhax 1 tablet by mouth twice dailyCarvedilol 6.25 mg tablet Discontinued 6.25 MG PO Twice daily November 05, 2023 1:00am February 20, 2024 2:44pmStart: 09-73-4264mogy 1 tablet by mouth twice daily at mealtimeCarvedilol 6.25 MG Oral Tablet TAKE 1 TABLET TWICE DAILY WITH MEALS. Quantity: 180 Refills: 1 Ordered: 17-Dec-2022 Cathleen Lopez MD Start : 17-Dec-2022 Active new start D/C Amlodipinecelecoxib 100 mg oral capsule (19 sources)Nonsteroidal Anti-inflammatory DrugStart: 09-04-2022 End: 19-02-3789owbb 1 capsule by mouth twice dailyCelecoxib 100 mg Capsule Discontinued 100 MG PO Twice daily September 04, 2022 1:00am September 08, 2022 10:19amcephalexin 500 mg oral tablet (8 sources)Cephalosporin AntibacterialStart: 01-21-2025 End: 72-43-4814layi 1 tablet by mouth three times dailyCephalexin 500 mg tablet Discontinued 500 MG PO Three times daily 14 01January 21, 2025 12:00am April 21, 2025 7:11amStart: 72-18-3428yeew 1 capsule by mouth every eight hours Cephalexin 500 MG 1 capsule Orally tid for 14 days Sep, ActiveDermacinRx Therazole Rocky 1-0.05 & 20 % External Therapy Pack (5 sources)DermacinRx Therazole Rocky 1-0.05 & 20 % External Therapy Pack as directed Quantity: 0 Refills: 0Ordered: 12-Nov-2022 DO Activedoxycycline hyclate 100 mg oral tablet (19 sources)Tetracycline-class DrugStart: 09-08-2022 End: 60-78-3524ldtm 1 tablet by mouth every twelve hoursDoxycycline Hyclate 100 mg Tablet Discontinued 100 MG PO Q12H 10 5 September 08, 2022 1:00am November 05, 2023 12:22pmempagliflozin 10 mg oral tablet (20 sources)Sodium-Glucose Cotransporter 2 InhibitorStart: 02-05-2024 End: 43-59-3136fvdy 1 tablet by mouth once dailyEmpagliflozin (Jardiance) [...] Propion-Salmeterol (20 sources)Corticosteroid, beta2-Adrenergic AgonistStart: 11-05-2023 End: 35-19-7520ubqn 1 puff(s) by inhalation twice dailyFluticasone Propion- Salmeterol (Advair Hfa) 115-21 mcg/actuation HFA aerosol inhaler Discontinued 2 PUFF INHALATION Twice daily November 05, 2023 12:00am February 20, 2024 1:45pmStart: 11-05-2023 End: 07-10-2917spdf 1 puff(s) by inhalation twice dailyFluticasone Propion- Salmeterol (Advair Hfa) 115-21 mcg/actuation HFA aerosol inhaler Discontinued 2 PUFF INHALATION Twice daily November 05, 2023 1:00am February 20, 2024 2:45pmStart: 02-48-8057nyaq 1 puff(s) by inhalation twice dailyFluticasone Propion-Salmeterol (Advair Hfa) 115-21 mcg/actuation HFA aerosol inhaler Active 2 PUFF INHALATION Twice daily November 05, 2023 1:00amStart: 82-19-1178tgxk 2 puff(s) by inhalation twice dailyAdvair HFA 115-21 MCG/ACT 2 puffs Inhalation Twice a day Replaces Symbicort Oct, ActiveStart: 61-52-5432mwbc 2 puff(s) by inhalation every twelve hoursAdvair HFA 115-21 MCG/ACT Inhalation Aerosol INHALE 2 PUFFS AT 12 HOUR INTERVALS (MORNING AND EVENING). Quantity: 0 Refills: 0 Ordered: 12-Nov-2022 DO Activeglucose 0.4 mg/mg oral gel (19 sources)Start: 09-08-2022 End: 42-28-9260Ybkrjnqy (Glutose-15) 40 % Gel Discontinued 0.6 GM PO PRN as needed for Hypoglycemia 0 September 1:00am February 20, 2024 2:44pm12 hr guaiFENesin 600 mg extended release oral tablet (19 sources)Start: 09-08-2022 End: 12-09-8932ctyg 1 tablet by mouth twice daily as needed for cough, then take 1 tablet by mouth every twelve hours as needed for coughGuaifenesin (Mucinex) 600 mg Tablet Extended Release 12hr Discontinued 600 MG PO Twice daily as needed for cough 0 September 08, 2022 1:00am November 05, 2023 12:29pmhydroCHLOROthiazide 12.5 mg oral tablet (20 sources)Thiazide DiureticStart: 09-04-2022 End: 70-20-2592qtby 1 tablet by mouth once dailyHydrochlorothiazide 12.5 mg tablet Discontinued 12.5 MG PO Daily September 04, 2022 1:00am September 08, 2022 10:19amtake 1 tablet by mouth once daily in the morninghydroCHLOROthiazide (HYDRODiuril) 25 MG tablet Take 25 mg by mouth Daily 1 tablet in the morning Act iveHydrochlorothiazide-12.5 mg 12.5 MG (11 sources)Start: 97-00-8882pkju 1 capsule by mouth once daily in the morning Hydrochlorothiazide-12.5 mg 12.5 MG 1 capsule in the morning Orally Once a day Jan, Not-TakingInsulin Aspart U-100 (Novolog Flexpen U-100 Insulin) 100 unit/mL (3 mL) Insulin Pen (20 sources)Start: 09-08-2022 End: 40-58-5657qfyleu 1 dose by subcutaneous injection once at mealtimeInsulin Aspart U-100 (Novolog Flexpen U-100 Insulin) 100 unit/mL (3 mL) Insulin Pen Discontinued 1 sliding scale dose SUBCUT 3X/Day with meals and bedtime 0 September 08, 2022 12:00am February 20, 2024 1:45pmStart: 09-08-2022 End: 22-28-9635sohqkw 5 [IU] by subcutaneous injection once before mealtime Insulin Aspart U-100 (Novolog Flexpen U-100 Insulin) 100 unit/mL (3 mL) Insulin Pen Discontinued 5 UNITS SUBCUT 3x/Day before meals 0 September 08, 2022 12:00am November 05, 2023 11:29amStart: 09-08-2022 End: 74-57-5608cmqmmy 1 dose by subcutaneous injection once at mealtimeInsulin Aspart U-100 (Novolog Flexpen U-100 Insulin) 100 unit/mL (3 mL) Insulin Pen Discontinued 1 sliding scale dose SUBCUT 3X/Day with meals and bedtime 0 September 08, 2022 1:00am February 20, 2024 2:45pmStart: 69-86-2930awkaqh 1 dose by subcutaneous injection once at mealtimeInsulin Aspart U-100 (Novolog Flexpen U- 100 Insulin) 100 unit/mL (3 mL) Insulin Pen Active 1 sliding scale dose SUBCUT 3X/Day with meals and bedtime 0 September 08, 2022 1:00amStart: 09-08-2022 End: 54-59-2282pbybze 5 [IU] by subcutaneous injection once before mealtime Insulin Aspart U-100 (Novolog Flexpen U-100 Insulin) 100 unit/mL (3 mL) Insulin Pen Discontinued 5 UNITS SUBCUT 3x/Day before meals 0 September 08, 2022 1:00am November 05, 2023 12:29pmStart: 44-96-6948xlubsw 1 dose by subcutaneous injection once at mealtimeInsulin Aspart U-100 (Novolog Flexpen U-100 Insulin) 100 unit/mL (3 mL) Insulin Pen Active 1 sliding scale dose SUBCUT 3X/Day with meals and bedtime 0 September 08, 2022 12:00amStart: 72-70-4508wdzyul 5 [IU] by subcutaneous injection once before mealtimeInsulin Aspart U-100 (Novolog Flexpen U-100 Insulin) 100 unit/mL (3 mL) Insulin Pen Active 5 UNITS SUBCUT 3x/Day before meals 0 September 08, 2022 12:00am3 ml insulin aspart, human 100 unt/ml pen injector (9 sources)Insulin AnalogStart: 45-36-5555KslaPXN FlexPen 100 units/mL injectable solution 5 unit(s), SubCutaneous, TIDAC, plus 150-199 3, 200-249 4, 250-299 7, 300-349 10, 350-399 12, 400-449 14, >450 20, Refills(s) 0 Start Date: 09/10/22 Status: OrderedStart: 09-08-2022 End: 70-64-3130sbmoyb 1 dose by subcutaneous injection once at mealtimeInsulin Aspart U-100 (Novolog Flexpen U-100 Insulin) 100 unit/mL (3 mL) Insulin Pen Discontinued 1 sliding scale dose SUBCUT 3X/Day with meals and bedtime 0 September 08, 2022 1:00am February 20, 2024 2:45pmStart: 09-08-2022 End: 18-84-9316ovneri 5 [IU] by subcutaneous injection once before mealtime Insulin Aspart U-100 (Novolog Flexpen U-100 Insulin) 100 unit/mL (3 mL) Insulin Pen Discontinued 5 UNITS SUBCUT 3x/Day before meals 0 September 08, 2022 1:00am November 05, 2023 12:29pm3 ml insulin glargine 100 unt/ml pen injector (20 sources)Insulin AnalogStart: 11-05-2023 End: 89-86-5465Xfzimzz Glargine (Lantus Solostar U-100 Insulin) 100 unit/mL (3 mL) insulin pen Discontinued 20 UNIT SUBCUT Daily November 18, 2024 5:26pm November 18, 2024 5:28pmStart: 42-85-9384Kumdnb Solostar Pen 100 units/mL subcutaneous solution 20 unit(s), SubCutaneous, Daily, Refills(s) 0 Start Date: 09/10/22 Status: Ordered Repeat number: 1Start: 09-08-2022 End: 55-77-0525Qjnjghu Glargine (Lantus Solostar U-100 Insulin) 100 unit/mL (3 mL) Insulin Pen Discontinued 15 UNITS SUBCUT Daily 0 September 08, 2022 1:00am November 05, 2023 12:29pmLantus SoloStar 100 UNIT/ML 20 units Subcutaneous daily Activeketoconazole 20 mg/ml topical cream (1 source)Azole AntifungalStart: 82-97-1468Difxpepkpvkz 2 % External Cream Quantity: 60 Refills: 0 Ordered: 07-Feb-2023 DO Start : 07-Feb-2023 Complete Lactobacillus Combination No.4 (Probiotic) 3 billion cell capsule (19 sources)Start: 09-08-2022 End: 57-80-3834fndw 3 capsules by mouth once dailyLactobacillus Combination No.4 (Probiotic) 3 billion cell capsule Discontinued 3000 MMU CELLS PO Daily September 08, 2022 12:00am February 20, 2024 1:45pm administer with a mealStart: 09-08-2022 End: 78-79-6325hpat 3 capsules by mouth once dailyLactobacillus Combination No.4 (Probiotic) 3 billion cell capsule Discontinued 3000 MMU CELLS PO Daily September 08, 2022 1:00am February 20, 2024 2:45pm administer with a mealStart: 32-49-5320ijie 3 capsules by mouth once dailyLactobacillus Combination No.4 (Probiotic) 3 billion cell capsule Active 3000 MMU CELLS PO Daily 2022 1:00am administer with a mealStart: 35-22-9370fnzr 3 capsules by mouth once dailyLactobacillus Combination No.4 (Probiotic) 3 billion cell capsule Active 3000 MMU CELLS PO Daily 2022 12:00am administer with a mealmeloxicam 15 mg oral tablet (11 sources)Nonsteroidal Anti-inflammatory Drugtake 1 tablet by mouth every twenty-four hoursMeloxicam 15 MG 1 tablet Orally Once a day Not-TakingmetFORMIN hydrochloride 1000 mg oral tablet (20 sources)BiguanideStart: 12-23-2020 End: 26-64-0731gsux 1 tablet by mouth twice dailyMetformin 1,000 mg tablet Discontinued 1000 MG PO Twice daily September 04, 2022 1:00am February 05, 2024 11:25amtake 1 tablet by mouth every twelve hoursmetFORMIN HCl - 1000 MG Oral Tablet TAKE 1 TABLET EVERY 12 HOURS Quantity: 180 Refills: 0 Ordered: 1 02-Nov-2022 DO Activemupirocin 0.02 mg/mg topical ointment (20 sources)RNA Synthetase Inhibitor AntibacterialStart: 11-05-2023 End: 82-94-7586Yfzqukhlw 2 % ointment Discontinued 1 APPLIC TOPICAL Twice daily November 05, 2023 1:00am February 20, 2024 2:47pmMupirocin 2 % 1 application Externally Twice a day for 30 days ActiveMupirocin 2 % External Ointment APPLY SPARINGLY TO AFFECTED AREA(S) TWICE DAILY Quantity: 0 Refills: 0 Ordered: 12-Nov-2022 DO ActivePotassium Chloride 15 mEq tablet,ER particles/crystals (9 sources)Start: 09-08-2022 End: 48-78-0093cyva 1 tablet by mouth once dailyPotassium Chloride 15 mEq tablet,ER particles/crystals Discontinued 15 MEQ PO Daily September 1:00am November 05, 2023 12:26pmStart: 09-08-2022 End: 48-20-9531ofmj 1 tablet by mouth once dailyPotassium Chloride 15 mEq tablet,ER particles/crystals Discontinued 15 MEQ PO Daily September 12:00am November 05, 2023 11:26ampredniSONE 20 mg oral tablet (20 sources)Start: 12-14-2024 End: 97-16-5957upww 1 tablet by mouth twice daily, then take 1 tablet by mouth once dailyPrednisone 20 mg tablet Discontinued 0 PO As Directed 16 06December 14, 2024 12:00am April 23, 2025 11:01am 1 tablet PO bid w/ food x 5 days then 1 tablet qd w/ food x 5 days.Start: 09-08-2022 End: 52-30-9868kyov 1 tablet by mouth twice daily, then [...] oral capsule (20 sources)alpha-Adrenergic BlockerStart: 10-26-2023 End: 42-67-7155yrwa 1 capsule by mouth once daily in the eveningTamsulosin 0.4 mg capsule Discontinued 0 .ROUTE .COMPLEX November 18, 2024 5:04pm May 12:15pm TAKE 1 CAPSULE BY MOUTH EVERY EVENINGStart: 05-08-2021 End: 39-91-5011mhlg 1 capsule by mouth once dailyTamsulosin 0.4 mg capsule Discontinued 0.4 MG PO Daily September 04, 2022 1:00am October 2644:55pm tiZANidine 2 mg oral tablet (20 sources)Central alpha-2 Adrenergic AgonistStart: 95-98-1752sbHJLklxbj 2 mg Tab Refills(s) 0 Start Date: 01/29/24 Status: Ordered Repeat number: 1Start: 12-13-2023 End: 68-68-2982ckwx 0.5-1 tablets by mouth once daily at bedtimeTizanidine 2 mg tablet Discontinued 0 .ROUTE .COMPLEX December 16, 2024 1:33pm May 18, 2025 12:15pm TAKE 1/2 TO 1 TABLET BY MOUTH EVERY DAY AT BEDTIMEStart: 07-04-2023 End: 38-42-7967urlk 1 tablet by mouth once daily at bedtimeTizanidine 2 mg tablet Discontinued 2 MG PO Daily at bedtime November 05, 2023 1:00am December 13, 2023 1:56pmtriamcinolone acetonide 0.001 mg/mg topical ointment (6 sources)CorticosteroidStart: 12-14-2024 End: 52-12-2526Gyxedjyuiqegg Acetonide 0.1 % ointment Discontinued 1 APPLIC TOPICAL Twice daily 454 December 12:00am May 18, 2025 12:15pm Start: 31-30-7860Sxndylpthrdkc Acetonide 0.1 % ointment Active 1 APPLIC TOPICAL Twice daily 454 December 14, 2024 12:00am Problems Active Problems Problem ClassificationProblemDateDocumented DateEpisodic/ChronicAbdominal pain (20 sources)Abdominal pain; Translations: [Unspecified abdominal pain] Resolved: 17-44-9618LkeapgsaOlncn and unspecified renal failure (19 sources)Acute kidney failure, unspecified; Translations: [Acute renal failure syndrome]Onset: 143192-63-8163SrmeaoljSaijz cerebrovascular disease (1 source)Acute cerebrovascular diseaseOnset: 75-44-8955Fszki posthemorrhagic anemia (20 sources)Acute posthemorrhagic anemia; Translations: [Acute posthemorrhagic anemia]EpisodicAdministrative/social admission (20 sources)Counseling procedure with explicit context; Translations: [Tobacco abuse counseling]65-89-3740PizveudfKgrmytv on above:Problem List clean-up per request of Phys. EHR CmteAortic; peripheral; and visceral artery aneurysms (20 sources)Aneurysm of left common iliac artery; Translations: [Aneurysm of iliac artery]ChronicChronic kidney disease (20 sources)Chronic kidney disease stage 3A ; Translations: [Chronic kidney disease, Stage III (moderate)]73-69-3229EyapfjcVweolgg kidney disease (4 sources)Chronic kidney disease; Translations: [Chronic kidney disease, stage 3a]Onset: 22-76-2390Ryydqbs obstructive pulmonary disease and bronchiectasis (20 sources)Chronic obstructive lung disease; Translations: [Chronic obstructive pulmonary disease, unspecified]Onset: 30-09-3943EzivxyxOeiivrf on above:Problem List clean-up per request of Phys. EHR CmteCoagulation and hemorrhagic disorders (20 sources)Thrombocytopenic disorder; Translations: [Thrombocytopenia, unspecified]20-89-9994NxuwpcsQdgpbjsoepsqi of surgical procedures or medical care (1 source)Infection following a procedure, other surgical site, initial encounterEpisodicConditions associated with dizziness or vertigo (18 sources)Benign paroxysmal positional vertigo; Translations: [Benign paroxysmal vertigo, bilateral]Onset: 771891-62-5557UxogjqycRnvkxlqymm heart failure; nonhypertensive (20 sources)Diastolic heart failure; Translations: [Unspecified diastolic (congestive) heart failure]Onset: 865136-18-5952QkvtnejHindwrg on above: Problem List clean-up per request of Phys. EHR CmteEcho: LVEF 65%, LVH, normal RV size/function, no valve defect - 3Deficiency and other anemia (6 sources)Anemia due to blood zvsy04-92-0543RrdyhtkDvuckkxogh and other anemia (20 sources)Anemia due to chronic blood loss; Translations: [Iron deficiency anemia secondary to blood loss (chronic)]ChronicDeficiency and other anemia (13 sources)Pancytopenia; Translations: [Other pancytopenia]50-21-4377Nwxydxw Deficiency and other anemia (19 sources)Other pancytopenia; Translations: [Other pancytopenia]Onset: 665953-58-3595ZoejejtPdqtctvnye and other anemia (20 sources)Pernicious anemia; Translations: [Vitamin B12 deficiency anemia due to intrinsic factor deficiency]66-56-9451YaefddboYwqrryeopu and other anemia (20 sources)Vitamin B12 deficiency anemia due to intrinsic factor deficiency; Translations: [Pernicious anemia]Onset: 53-69-7182YhqmrfmnSijjcdyoks and other anemia (17 sources)Anemia; Translations: [Anemia, unspecified]44-39-2327Ackwxyyh Diabetes mellitus with complications (20 sources)Type 2 diabetes mellitus; Translations: [Type 2 diabetes mellitus with hyperglycemia]Onset: 90-72-5275OifxchnWogtkxux mellitus without complication (20 sources)Type 2 diabetes mellitus without complication; Translations: [Type 2 diabetes mellitus without complications]Onset: 71-49-2140WglzpjpWmyfqge on above:Problem List clean-up per request of Phys. EHR CmteDisorders of lipid metabolism (20 sources)Mixed hyperlipidemia; Translations: [Mixed hyperlipidemia]Onset: 119421-75-8449AwywjmpNagpdxgisikaeb and diverticulitis (20 sources)Diverticulosis of colon; Translations: [Diverticulosis of large intestine without perforation or abscess without bleeding]Onset: 07-03-2018 81-11-5228EzxfunmBpmszyipg hypertension (20 sources)Essential hypertension; Translations: [Essential (primary) hypertension]Onset: 19-03-1091RvbutxjDtmjipi on above:Problem List clean-up per request of Phys. EHR CmteFever of unknown origin (3 sources)Fever, unspecified; Translations: [FEVER UNSPECIFIED]Onset: 16-39-1091HsoziqbnRraqagux of upper limb (20 sources)Closed fracture of surgical neck of humerus; Translations: [Closed fracture of humerus]Onset: 362010-09-6230DnvyfgnzJwghxnvuegcrp symptoms and ill-defined conditions (13 sources)Urge incontinence; Translations: [Urge incontinence of urine]Onset: 44-57-1016QrktoygAvbgyfschahao symptoms and ill-defined conditions (20 sources)Increased frequency of urination; Translations: [Micturition frequency and polyuria]Onset: 01-29-2024 Resolved: 800860-30-3927JbzyjavyCtimdlg on above:Problem List clean-up per request of Phys. EHR CmteHeadache; including migraine (6 sources)Headache; Translations: [Headache, unspecified]EpisodicHeart valve disorders (3 sources)Aortic valve stenosis; Translations: [Nonrheumatic aortic (valve) stenosis]21-35-5130FezrzobFnqccpahndq of prostate (20 sources)Benign prostatic hypertrophy with outflow obstruction; Translations: [Lower urinary tract symptoms due to benign prostatic hypertrophy]Onset: 425826-73-7871XaepvrbEkifvgiepxle with complications and secondary hypertension (2 sources)Hypertensive heart disease with heart failure; Translations: [Hypertensive heart and chronic kidneydisease]Onset: 97-48-5711Ftycqqy Immunizations and screening for infectious disease (6 sources)Vaccination given; Translations: [Encounter for immunization]Episodic Inflammatory conditions of male genital organs (1 source)Acute prostatitisEpisodicMalaise and fatigue (20 sources)Asthenia; Translations: [Other malaise]Onset: EpisodicComment on above:Problem List clean-up per request of Phys. EHR Cmte Miscellaneous mental health disorders (20 sources)Occipital headache; Translations: [Occipital headache]Chronic Nutritional deficiencies (20 sources)Vitamin D deficiency; Translations: [Vitamin D deficiency, unspecified]Onset: 65-71-3777WuerosfGtqwwqnldsp deficiencies (6 sources)Deficiency of other specified B group vitamins; Translations: [Other B-complex deficiencies]66-98-0913MsafeignBbtez aftercare (20 sources)Long-term current use of insulin; Translations: [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) use of insulin]EpisodicOther aftercare (20 sources)H/O: high risk medication; Translations: [Other watermelon harvesting supervisor (current) drug therapy]EpisodicOther aftercare (1 source)Other halfway (current) drug therapy; Translations: [OTH [facility] CURRENT DRUG THERAPY]Onset: 31-18-1983NcisevlqAudjn aftercare (1 source)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) use of aspirin; Translations: [FDC CURRENT USE OF ASPIRIN]Onset: 02-64-4110OgflxbeiHboax aftercare (1 source)assisted (current) use of oral hypoglycemic drugs; Translations: [TERMINAL BLOCK ASSEMBLER USE ORAL HYPOGLYCEMIC DX]Onset: 41-87-6307LytuqfqdRgcff aftercare (5 sources)Post-discharge follow-up; Translations: [Other follow-up examination] EpisodicOther aftercare (3 sources)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) use of insulinEpisodicOther aftercare (6 sources)Long-term current use of drug therapy; Translations: [Other halfway (current) drug therapy]EpisodicOther connective tissue disease (20 sources)Other symptoms and signs involving the nervous system; Translations: [Suspected sleep apnea]EpisodicOther connective tissue disease (1 source)Achilles tendinitis, right legEpisodicOther connective tissue disease (7 sources)Other symptoms and signs involving the musculoskeletal system; Translations: [Weakness of both lower extremities]83-20-2166TjtrbotwQrtdy diseases of bladder and urethra (3 sources)Detrusor overactivity; Translations: [Overactive bladder]Onset: 89-70-4765CtvlxkgNwjet diseases of bladder and urethra (3 sources)Overactive nnbokfv74-16-7930GsyovfkBruyy diseases of veins and lymphatics (20 sources)Peripheral venous insufficiency; Translations: [Venous insufficiency (chronic) (peripheral)]EpisodicOther diseases of veins and lymphatics (19 sources)Venous insufficiency (chronic) (peripheral); Translations: [Venous (peripheral) insufficiency, unspecified]EpisodicOther diseases of veins and lymphatics (20 sources)Venous insufficiency of leg; Translations: [Venous insufficiency (chronic) (peripheral)]32-70-2994RypjytuuYgfyq ear and sense organ disorders (20 sources)Impacted cerumen; Translations: [Impacted cerumen, right ear]Onset: 10-16-2018 Resolved: 97-81-6926ElygbavfUoldq gastrointestinal disorders (20 sources)Flatulence, eructation and gas pain; Translations: [Abdominal distension (gaseous)]EpisodicOther gastrointestinal disorders (10 sources)Diarrhea; Translations: [Diarrhea, unspecified]30-28-8570Gjgnrcba Other hematologic conditions (20 sources)Raised cardiac enzyme or marker; Translations: [Other specified abnormalities of plasma proteins]35-55-2263RrhygcymVprjmzo on above:Problem List clean-up per request of Phys. EHR CmteOther hematologic conditions (5 sources)Other specified abnormalities of plasma proteins; Translations: [Other abnormal blood chemistry]Onset: 162905-07-8960IkivevytCkwwh injuries and conditions due to external causes (20 sources)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, left arm, subsequent encounter; Translations: [Injury ofradial nerve at upper arm level, left arm, subsequent encounter]EpisodicOther injuries and conditions due to external causes (6 sources)History of fall; Translations: [History of falling]EpisodicOther lower respiratory disease (19 sources)Computed tomography result abnormal; Translations: [Other nonspecific abnormal finding of lung field]05-51-1462EcjnqakwNnebgle on above: Problem List clean-up per request of Phys. EHR CmteOther lower respiratory disease (20 sources)Dyspnea; Translations: [Shortness of breath]EpisodicOther lower respiratory disease (1 source)Hypoxemia; Translations: [HYPOXEMIA]Onset: 36-01-6209NzksysfwJosxu lower respiratory disease (2 sources)Shortness of breath; Translations: [SHORTNESS OF BREATH]Onset: 64-67-2140DtdzknboMywmt lower respiratory disease (4 sources)Dyspnea on exertion; Translations: [Shortness of breath]EpisodicOther lower respiratory disease (1 source)Other nonspecific abnormal finding of lung fieldEpisodicOther nervous system disorders (6 sources)Polyneuropathy; Translations: [Polyneuropathy, unspecified]Onset: 55-05-051832592034-05-4483VdjawcgUzkuj nervous system disorders (6 sources)Left radial neuropathy; Translations: [Lesion of radial nerve, left upper limb]Onset: 122894-28-5552AvrhnuwIifrp nervous system disorders (20 sources)Unsteadiness on feet; Translations: [Unsteady]EpisodicOther nervous system disorders (6 sources)Abnormal gait; Translations: [Unsteadiness on feet]EpisodicOther nervous system disorders (20 sources)General unsteadiness; Translations: [Unsteadiness on feet]11-06-2023 EpisodicOther nervous system disorders (16 sources)Impairment of balance; Translations: [Other abnormalities of gait and mobility]Onset: 454190-71-4339TtmfgzjtSjygb non-epithelial cancer of skin (20 sources)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; Translations: [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, including shoulder]Onset: 97-42-8649NdrwerinBkzqg nutritional; endocrine; and metabolic disorders (12 sources)Simple obesity ; Translations: [Other obesity due to excess calories] Resolved: 304999-32-8402JitxfunZejlr nutritional; endocrine; and metabolic disorders (20 sources)Obese class I; Translations: [Body mass index (BMI) 34.0-34.9, adult]Onset: 60-82-7587HdobwtlKmpxq nutritional; endocrine; and metabolic disorders (20 sources)Obesity; Translations: [Obesity, unspecified]16-55-3994WxpdealEgxja skin disorders (5 sources)Vesicular eczema; Translations: [Dyshidrosis [pompholyx]]12-14-2024 EpisodicOther skin disorders (1 source)Dyshidrosis [pompholyx]; Translations: [Dyshidrosis]08-75-9521Zoxzpobn Pneumonia (except that caused by tuberculosis or sexually transmitted disease) (20 sources)Pneumonia; Translations: [Pneumonia, unspecified organism]Onset: 21-21-8339CjdhyltzMztwpdi on above:Problem List clean-up per request of Phys. EHR CmteResidual codes; unclassified (20 sources)Obstructive sleep apnea syndrome; Translations: [Obstructive sleep apnea (adult) (pediatric)]92-46-3586SjxixhgXudjztkf codes; unclassified (20 sources)Obstructive sleep apnea (adult) (pediatric); Translations: [Obstructive sleep apnea (adult)(pediatric)]Onset: hronic Residual codes; unclassified (12 sources)Daytime somnolence; Translations: [Other hypersomnia]Onset: 557946-95-0713YxugblrRpdcokia codes; unclassified (1 source)Disorientated; Translations: [Disorientation, unspecified]Onset: 87-42-3958AgkuvtlnIkeltmwk codes; unclassified (1 source)Edema; Translations: [Edema, unspecified]Onset: 72-17-4102Hitfxays Residual codes; unclassified (6 sources)Axhvfpbi37-83-4614JbaaxnunVfvgmchi codes; unclassified (6 sources)Dependent -82-3572YunvyunkSiwgkamr codes; unclassified (19 sources)Tobacco user; Translations: [Tobacco use]58-86-0546YrerafhlArnimyr on above:Problem List clean-up per request of Phys. EHR CmteResidual codes; unclassified (2 sources)Edema of lower extremity; Translations: [Edema]EpisodicResidual codes; unclassified (1 source)Pain, unspecified; Translations: [Pain, unspecified]Onset: 10-11-2024 EpisodicRespiratory failure; insufficiency; arrest (adult) (20 sources)Acute respiratory failure; Translations: [Acute respiratory failure with hypoxia]50-03-2777YzkfjbzzZnlqfvb on above:Problem List clean-up per request of Phys. EHR CmteShock (18 sources)Hypovolemic shock; Translations: [Hypovolemic shock]Onset: 045269-43-0932NajyrcxaOtfr and subcutaneous tissue infections (20 sources)Carbuncle of buttock; Translations: [Carbuncle of buttock]Episodic Spondylosis; intervertebral disc disorders; other back problems (20 sources)Lumbar spondylosis; Translations: [Spondylosis without myelopathy or radiculopathy, lumbar region]Onset: 587188-27-0847UvlasgmUszoqqxkp- related disorders (20 sources)Nicotine dependence; Translations: [Nicotine dependence, cigarettes, uncomplicated]Onset: 37-66-1249KebwpudCtdrtlx (18 sources)Syncope; Translations: [Syncope and collapse]Onset: 10-09-2024 95-90-4982HnbybwvjWgqewibwixxk (6 sources)Asymptomatic microscopic vmhsopzpe66-12-2904Rmbnrewkppsb (6 sources)Injury of radial nerve at upper arm pueqq45-20-3421Hknguynbnzyg (1 source)CONTACT W/AND (SUSP) EXPOS COVID-19; Translations: [CONTACT W/AND (SUSP) EXPOS COVID-19]Onset: 09-06-2022 Past or Other Problems Problem ClassificationProblemDateDocumented DateEpisodic/ChronicDeficiency and other anemia (4 sources)Iron deficiency anemia, unspecified; Translations: [IRON DEFICIENCY ANEMIA UNSPECIFIED]Onset: 17-24-9528RdwwlyzcAhwvucd (6 sources)Candidiasis of skin and nails; Translations: [Candidiasis of skin and nail] Resolved: 68-05-7741CiczuhqhIbmthfftfzpel gastroenteritis (17 sources)Gastroenteritis; Translations: [Noninfective gastroenteritis and colitis, unspecified]Onset: 466475-48-3884RnpvibxqVrdsh acquired deformities (6 sources)Spondylolysis of cervical spine; Translations: [Spondylolysis, cervical region]Onset: 230266-22-6968KnyolgmrTnpmk connective tissue disease (6 sources)Bilateral weakness of upper limbs; Translations: [Other symptoms and signs involving the musculoskeletal system]Onset: 602215-76-5506Qkckapdj Other ear and sense organ disorders (6 sources)Cellulitis of right external ear; Translations: [Cellulitis of right external ear] Resolved: 05-80-9581ZnhktmbkSmsrf gastrointestinal disorders (6 sources)H/O: gastrointestinal disease; Translations: [Personal history of other diseases of the digestive system] Resolved: 72-53-4664AegtizkeGpkyn gastrointestinal disorders (6 sources)Altered bowel function; Translations: [Change in bowel habit] Resolved: 79-14-9730DohhipnxRgjhd gastrointestinal disorders (7 sources)Diarrhea, unspecified; Translations: [Diarrhea]Onset: 10-09-2024 85-04-6650NmzwppgoSupqt nervous system disorders (6 sources)Ataxia; Translations: [Ataxia, unspecified]Onset: 12-31-2023 75-30-5827YitdgbgnXgjmj nervous system disorders (6 sources)Paresthesia; Translations: [Paresthesia of skin]Onset: 12-31-2023 56-49-8879OjhzdjaoSyxfg screening for suspected conditions (not mental disorders or infectious disease) (6 sources)Disorder of cardiovascular system; 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]Onset: 07-84-3142EszbypsiUtuknaqd codes; unclassified (6 sources)Reduced libido; Translations: [Decreased libido]Onset: 07-03-2018 EpisodicResidual codes; unclassified (6 sources)Confusional state; Translations: [Disorientation, unspecified]Onset: 349763-12-4626HxntpgbvLpczozaww and history of mental health and substance abuse codes (12 sources)Ex-smoker; Translations: [Personal history of tobacco use]Onset: 20-97-1745BbpkidvkGwcqzqm on above:quit smoking in 2019;Septicemia (except in labor) (18 sources)Sepsis, unspecified organism; Translations: [Sepsis]Onset: 399557-27-4198MstofkkpKejsloaaesy; intervertebral disc disorders; other back problems (6 sources)Backache; Translations: [Unspecified backache]Onset: 07-03-2018 EpisodicUnclassified (18 sources)Abdominal aortic aneurysm, without rupture, unspecified; Translations: [Abdominal aortic aneurysm, without rupture, unspecified] Results Test NameValueInterpretationReference RangeFacilityAlbumin [Mass/volume] in Serum or Plasma by Bromocresol green (BCG) dye binding methoOrdered By: Angelo Hurst on 30-07-0324Rrpdzlm BCG dye [Mass/Vol]4.2 g/dL3.5-5.7FOhioHealth Nelsonville Health CenterComprehensive Metabolic Panelon 18-96-0417Ddbnfqi [Mass/Vol]4.2 g/dLNormal3.5-5.7ThValor Health Physician GroupComment on above:Performed By: #### GLULS #### Point of Care testing ,Creatinine Clr Calc Zotednyd67.58NormHealthPark Medical Center Physician GroupComment on above:Performed By: #### GLULS #### Point of Care testing ,GFR/1.73 sq M.predicted MDRD (S/P/Bld) [Vol rate/Area]54.506 mL/min/{1.73_m2} NormalThe Atrium Health Physician GroupComment on above:Performed By: #### GLULS #### Point of Care testing ,Comprehensive Metabolic PanelOrdered By: Angelo Iglesias on 04-26-2025 Albumin/Globulin [Mass ratio]2.2 {ratio}[facility] ShawComment on above:Performed By: #### GLULS #### Point of Care testing ,ALP [Catalytic activity/Vol]86 U/M91-222XqddhunveSelect Medical [facility], [facility] Shaw Comment on above:Performed By: #### GLULS #### Point of Care testing ,ALT [Catalytic activity/Vol]13 U/L7-52[facility] ShawComment on above:Performed By: #### GLULS #### Point of Care testing ,Anion gap [Moles/Vol]9.2 mmol/L6.0-15.0[facility] ShawComment on above:Performed By: #### GLULS #### Point of Care testing ,AST [Catalytic activity/Vol]13 U/W36-76XanjvryldSelect Medical Cleveland Clinic Rehabilitation Hospital, Edwin ShawComment on above:Performed By: #### GLULS #### Point of Care testing ,Bilirubin [Mass/Vol]0.5 mg/dL0.3-1.0[facility] ShawComment on above:Performed By: #### GLULS #### Point of Care testing ,Calcium [Mass/Vol]8.9 mg/dL8.6-10.3FOhioHealth Nelsonville Health CenterComment on above:Performed By: #### GLULS #### Point of Care testing ,Chloride [Moles/Vol]101 mmol/G94-933WydkvrudbSelect Medical Cleveland Clinic Rehabilitation Hospital, Edwin ShawComment on above:Performed By: #### GLULS #### Point of Care testing ,CO2 [Moles/Vol]31.0 mmol/L21.0-31.0[facility] ShawComment on above:Performed By: #### GLULS #### Point of Care testing ,Creatinine [Mass/Vol]1.28 mg/dL0.70-1.30[facility] Comment on above:Performed By: #### GLULS #### Point of Care testing ,Globulin (S) [Mass/Vol]1.9 g/dLSelect Medical [facility] Clinic Rehabilitation Hospital, Edwin ShawComment on above:Performed By: #### GLULS #### Point of Care testing ,Glucose [Mass/Vol]145 mg/tWBybq58-787EanppkxvySelect Medical [facility] Clinic Rehabilitation Hospital, Edwin ShawComment on above:Result Comment: Random Glucose Reference Range [...] subject supports the diagnosisof Diabetes Mellitus.Potassium [Moles/Vol]4.2 mmol/L3.5-5.1FOhioHealth Nelsonville Health CenterComment on above: Performed By: #### GLULS #### Point of Care testing ,Protein [Mass/Vol]6.1 g/dLLow6.4-8.9[facility] ShawComment on above:Performed By: #### GLULS #### Point of Care testing ,Sodium [Moles/Vol]137 mmol/Y195-928VbwexjnluSelect Medical Cleveland Clinic Rehabilitation Hospital, Edwin ShawComment on above:Performed By: #### GLULS #### Point of Care testing ,Urea nitrogen [Mass/Vol]14 mg/dL7-25[facility] ShawComment on above:Performed By: #### GLULS #### Point of Care testing ,FerritinOrdered By: Angelo Iglesias on 46-79-6367Lgmuvopq [Mass/Vol]47.2 ng/mL 23.9-336.2FOhioHealth Nelsonville Health CenterComment on above:Performed By: #### GLULS #### Point of Care testing ,Folate [Mass/volume] in Serum or PlasmaOrdered By: Angelo Iglesias on 04-26-2025 Folate [Mass/Vol]42.0 ng/mL>5.9[facility] ShawComment on above:Folate reference range: >5.9 ng/mlThe WHO technical consultation on folate and vitamin o84ztzrilbqaqik has determined that folate concentrations lessthan 4 ng/ml are considered deficient.Glomerular filtration rate [Volume Rate/Area] in Serum, Plasma or Blood by CreatinineOrdered By: Angelo Iglesias on 04-26-2025 Glomerular filtration rate [Volume Rate/Area] in Serum, Plasma or Blood by Tgbegfsfll53.506 mL/MinSelect Medical [facility] Clinic Rehabilitation Hospital, Edwin ShawIron and TIBC Profileon 04-26-2025% Iron Efukzvcamf25.5 %Anjedk53-20Thj Atrium Health Physician GroupComment on above:Performed By: #### GLULS #### Point of Care testing ,Total Iron Binding Zgcvmrvl351 ug/aPExmqst475-968Koc [facility] Comment on above:Performed By: #### GLULS #### Point of Care testing ,Iron and TIBC ProfileOrdered By: Angelo Iglesias on 29-29-9378Wblw [Mass/Vol]86 ug/iK17-974GbbeihkzrSelect Medical [facility] Clinic Rehabilitation Hospital, Edwin ShawComment on above:Performed By: #### GLULS #### Point of Care testing ,Transferrin [Mass/Vol]232 mg/lH761-015PvdncfxtzSelect Medical [facility] Clinic Rehabilitation Hospital, Edwin ShawComment on above:Performed By: #### GLULS #### Point of Care testing ,LDH Lactate Dehydrogenaseon 33-92-3106NGY Lactate Evymsutcpqcrf064 U/LNormal 140-271The Atrium Health Physician GroupComment on above:Performed By: #### GLULS #### Point of Care testing ,Lactate dehydrogenase [Enzymatic activity/volume] in Serum or Plasma by Lactate to pyOrdered By: Angelo Iglesias on 19-47-6929MDA Lactate to pyruvate reaction [Catalytic activity/Vol]140 U/Q997-171AtrcqnndwSelect Medical [facility] Clinic [facility] Shaw Leukocytes [#/volume] corrected for nucleated erythrocytes in Blood by Automated counOrdered By: Angelo Iglesias on 09-13-7184WKC corrected for nucl RBC Auto (Bld) [#/Vol]4.0 10*3/uLLow4.1-10.5FOhioHealth Nelsonville Health CenterMCHC Auto (RBC) [Mass/Vol]Ordered By: Angelo Iglesias on 96-29-0670BLPL (RBC) [Mass/Vol] 34.6 g/dL32.5-35.6FOhioHealth Nelsonville Health CenterNo Panel InformationOrdered By: Angelo Iglesias on 88-07-7593Fiyrxhcb Creatinine Clearance (Chem52.58 [facility] ShawNucleated erythrocytes [Presence] in Blood by Automated countOrdered By: Angelo Iglesias on 45-96-7732Zagjmxyrt RBC Auto Ql (Bld)0.1 /100{WBC}0-0.5FOhioHealth Nelsonville Health CenterPlatelet adequacy [Presence] in Blood by Light microscopyOrdered By: Angelo Iglesias on 04-26-2025 Platelets LM Ql (Bld)DecreasedNormDelaware County HospitalPlatelet morphology finding [Identifier] in BloodOrdered By: Angelo Iglesias on 04-26-2025 Platelet morphology finding Nom (Bld)NormalBrecksville VA / Crille Hospitalcan and CBCOrdered By: Angelo Iglesias on 65-83-0180Vmpffnofy (Bld) [#/Vol]0.0 10*3/uL0.0-0.2FOhioHealth Nelsonville Health CenterComment on above: Performed By: #### GLULS #### Point of Care testing ,Basophils/100 WBC (Bld)0.7 %.[facility] ShawComment on above: Performed By: #### GLULS #### Point of Care testing ,Eosinophils (Bld) [#/Vol]0.0 10*3/uL0.0-0.45[facility] Comment on above:Performed By: #### GLULS #### Point of Care testing ,Eosinophils/100 WBC (Bld)0.6 %.[facility] ShawComment on above:Performed By: #### GLULS #### Point of Care testing ,Erythrocyte distribution width (RBC) [Ratio]13.4 %12.0-14.8[facility] ShawComment on above:Performed By: #### GLULS #### Point of Care testing ,Hematocrit (Bld) [Volume fraction]38.7 %Low38.8-50.0[facility] ShawComment on above:Performed By: #### GLULS #### Point of Care testing ,Hemoglobin (Bld) [Mass/Vol]13.4 g/dL13.0-17.0[facility] Comment on above:Performed By: #### GLULS #### Point of Care testing ,Lymphocytes (Bld) [#/Vol]0.8 10*3/uLLow1.00-4.8[facility] ShawComment on above:Performed By: #### GLULS #### Point of Care testing ,Lymphocytes/100 WBC (Bld)18.8 %.[facility] ShawComment on above:Performed By: #### GLULS #### Point of Care testing ,MCH (RBC) [Entitic mass]33.8 pg27.5-35.2FOhioHealth Nelsonville Health Center Comment on above:Performed By: #### GLULS #### Point of Care testing ,MCV (RBC) [Entitic vol]97.9 fL83.5-101[facility] ShawComment on above:Performed By: #### GLULS #### Point of Care testing ,Monocytes (Bld) [#/Vol]0.4 10*3/uL0.0-0.8[facility] Comment on above:Performed By: #### GLULS #### Point of Care testing ,Monocytes/100 WBC (Bld)10.7 %.[facility] ShawComment on above:Performed By: #### GLULS #### Point of Care testing ,Neutrophils (Bld) [#/Vol]2.8 10*3/uL1.8-7.7FOhioHealth Nelsonville Health Center Comment on above:Performed By: #### GLULS #### Point of Care testing ,Neutrophils/100 WBC (Bld)69.2 %.[facility] ShawComment on above:Performed By: #### GLULS #### Point of Care testing ,Platelet mean volume (Bld) [Entitic vol]7.9 fL6.6-10.1FOhioHealth Nelsonville Health CenterComment on above:Performed By: #### GLULS #### Point of Care testing ,Platelets (Bld) [#/Vol]100 10*3/hZHnk157-274VtuycxcxtSelect Medical [facility] Clinic [facility] Comment on above:Performed By: #### GLULS #### Point of Care testing ,RBC (Bld) [#/Vol]3.95 10*6/uL3.90-5.60[facility] ShawComment on above:Performed By: #### GLULS #### Point of Care testing ,RBC morphology finding Nom (Bld)NormalLima City Hospital Comment on above:Performed By: #### GLULS #### Point of Care testing ,WBC (Bld) [#/Vol]4.0 10*3/uLLow4.1-10.5FOhioHealth Nelsonville Health CenterComment on above:Performed By: #### GLULS #### Point of Care testing ,Scan and CBCon 45-82-3449Ugwu Corpuscular HGB Conc34.6 g/dQZmypeq06.5-35.6The Atrium Health Physician GroupComment on above:Performed By: #### GLULS #### Point of Care testing ,NRBC%0.1 /100{WBC}Normal0-0.5The [facility] Physician [facility] Memorial HospitalComment on above: Performed By: #### GLULS #### Point of Care testing ,Platelet EstimateDecreasedNormalHCA Florida Pasadena Hospital Physician GroupComment on above:Performed By: #### GLULS #### Point of Care testing ,Platelet MorphologyNormalNormalHCA Florida Pasadena Hospital Physician GroupComment on above:Result Comment: PERFORMED BY: [facility] [place] [address] [employer] MICKEY CABRERA M.D.Performed By: #### GLULS #### Point of Care testing ,White Blood Count4.0 [CFU]/mLLow4.1-10.5The [facility] Health Physician GroupComment on above:Performed By: #### GLULS #### Point of Care testing ,Serum or plasma iron binding capacity measurement (mass/volume)Ordered By: angelina Iglesias on 60-64-0053Szvs binding capacity [Mass/Vol]325 ug/hR496-548 [facility] Valley Hospitalerum or plasma iron saturation measurement (mass fraction)Ordered By: angelina Iglesias on 07-03-6166Blbu saturation [Mass fraction]26.5 %20-50[facility] ShawVit. B12/Folate Profile Ordered By: angelina Iglesias on 53-53-3876Lvmzofjox (Vitamin B12) [Mass/Vol]1025 pg/iFMlmx573-529EyudsjvvkSelect Medical [facility] Clinic Rehabilitation Hospital, Edwin ShawComment on above:Performed By: #### GLULS #### Point of Care testing ,Vit. B12/Folate Profileon 76-86-4695Ihtood60.0 ng/mLNormal>5.9The Atrium Health Physician GroupComment on above:Result Comment: Folate reference range: >5.9 ng/ml The WHO technical consultation on folate and vitamin b12 deficiencies has determined that folate concentrations less than 4 ng/ml are considered deficient. PERFORMED BY: [facility] [address] [place] [address] [employer] MICKEY CABRERA M.D.Performed By: #### GLULS #### Point of Care testing ,Basophils Auto (Bld) [#/Vol]Ordered By: Erich Alejandro on 96-64-7803Mpdacmrxa (Bld) [#/Vol]0.0 10 3/uL0.0-0.1FOhioHealth Nelsonville Health CenterBasophils/100 WBC Auto (Bld)Ordered By: Erich Alejandro on 83-19-8237Wstngscam/100 WBC (Bld)0.8 %0.2-2.0[facility] ShawEosinophils/100 WBC Auto (Bld)Ordered By: Erich Alejandro on 99-59-8819Joknhyxhvsf/100 WBC (Bld)0.2 %Low0.9-7.0[facility] ShawErythrocyte distribution width Auto (RBC) [Ratio]Ordered By: Erich Alejandro on 64-04-0047Wgupcqhtvyx distribution width (RBC) [Ratio]12.8 %11.0-15.0[facility] ShawGlobulin Calc (S) [Mass/Vol]Ordered By: Erich Alejandro on 40-55-4669Caqmjhtq (S) [Mass/Vol]3.3 g/dLSelect Medical Cleveland Clinic Rehabilitation Hospital, Edwin ShawGlomerular filtration rate (GFR) estimation in non- AmericanOrdered By: Erich Alejandro on 71-86-2883OTS/1.73 sq M.predicted among non-blacks MDRD (S/P/Bld) [Vol rate/Area]53 mL/min/{1.73_m2}Low>=60 mL/min/1.73m 2FOhioHealth Nelsonville Health CenterGlucose mean value [Mass/volume] in Blood Estimated from glycated hemoglobinOrdered By: Erich Alejandro on 46-23-6712Prazxxj glucose Estimated from glycated hemoglobin (Bld) [Mass/Vol]137 mg/dLSelect Medical Cleveland Clinic Rehabilitation Hospital, Edwin ShawHematocrit Auto (Bld) [Volume fraction]Ordered By: Erich Alejandro on 14-61-8515Uhpeezgqdq (Bld) [Volume fraction]39.1 %Low42.0-54.0 [facility] ShawHemoglobin A1c percentageOrdered By: Erich Alejandro 05-19-3173QiJ6c (Bld) [Mass fraction]6.4 %High4.5-6.2FOhioHealth Nelsonville Health CenterComment on above:ADA RECOMMENDED LIMIT 4.0 - 6.0ADA THERAPEUTIC TARGET < 7.0ACTION SUGGESTED> 7.0Hemoglobin [Mass/volume] in BloodOrdered By: Erich Alejandro on 86-19-8910Omgkykwxqn (Bld) [Mass/Vol]13.3 g/dLLow14.0-18.0 [facility] ShawLaboratory - Chemistry and Chemistry - challengeOrdered By: Erich Alejandro on 42-04-9900Mjhaasj [Mass/Vol]3.6 g/dL 3.4-5.0[facility] ShawALP [Catalytic activity/Vol]99 U/L46-116 [facility] ShawALT [Catalytic activity/Vol]24 U/L16-63 [facility] ShawAST [Catalytic activity/Vol]10 U/LOtb80-82 [facility], [facility] ShawBilirubin [Mass/Vol]0.4 mg/dL0.2-1.0[facility] ShawCalcium [Mass/Vol]8.7 mg/dL8.5-10.1FOhioHealth Nelsonville Health CenterChloride [Moles/Vol]104 mmol/V21-248VciilgddxSelect Medical Cleveland Clinic Rehabilitation Hospital, Edwin ShawCO2 [Moles/Vol]31.3 mmol/L21.0-32.0[facility] Creatinine [Mass/Vol]1.29 mg/dL0.70-1.30[facility] GFR/1.73 sq M.predicted MDRD (S/P/Bld) [Vol rate/Area]mL/min/{1.73_m2}>=60 mL/min/1.73m 2FOhioHealth Nelsonville Health CenterGlucose [Mass/Vol]157 mg/dLHigh 74-106[facility] ShawPotassium [Moles/Vol]4.3 mmol/L3.5-5.1 [facility] ShawProtein [Mass/Vol]6.9 g/dL6.4-8.2FPeoples Hospitalodium [Moles/Vol]138 mmol/A681-442IysutpxbcSelect Medical Cleveland Clinic Rehabilitation Hospital, Edwin ShawUrea nitrogen [Mass/Vol]17.0 mg/dL7.0-18.0[facility] ShawUrea nitrogen/Creatinine [Mass ratio]13.2 mg/mgSelect Medical Cleveland Clinic Rehabilitation Hospital, Edwin ShawLaboratory - Hematology and Cell countsOrdered By: Erich Alejandro on 92-93-0804Egleytoq granulocytes/100 WBC (Bld)0.4 %0.0-0.5FOhioHealth Nelsonville Health CenterLeukocytes [#/volume] corrected for nucleated erythrocytes in Blood by Automated counOrdered By: Erich Alejandro on 48-94-2041DTL corrected for nucl RBC Auto (Bld) [#/Vol]4.9 10 3/uL4.0-11.0[facility] Lymphocytes Auto (Bld) [#/Vol]Ordered By: Erich Alejandro on 79-66-5940Gjsyvxdimoi (Bld) [#/Vol]0.8 10 3/uLLow1.2-3.8[facility] Lymphocytes/100 WBC Auto (Bld)Ordered By: Erich Alejandro on 04-23-2025 Lymphocytes/100 WBC (Bld)16.0 %Low20.5-60.0[facility] CenterH Auto (RBC) [Entitic mass]Ordered By: Erich Alejandro on 07-48-8925XQI (RBC) [Entitic mass]33.8 pg25.9-34.0[facility] ShawMCHC Auto (RBC) [Mass/Vol]Ordered By: Erich Alejandro on 72-80-7254QBPL (RBC) [Mass/Vol]34.0 g/dL 29.9-35.2FOhioHealth Nelsonville Health CenterMCV Auto (RBC) [Entitic vol]Ordered By: Erich Alejandro on 37-24-0576AKR (RBC) [Entitic vol]99.2 xAGfby32.0-94.0 [facility] ShawMonocytes Auto (Bld) [#/Vol]Ordered By: Erich Alejandro on 11-35-5689Kjnfwkmqh (Bld) [#/Vol]0.5 10 3/uL0.3-0.8[facility] ShawMonocytes/100 WBC Auto (Bld)Ordered By: Erich Alejandro on 00-14-7580Onsfpgebw/100 WBC (Bld)10.5 %1.7-12.0[facility] Neutrophils Auto (Bld) [#/Vol]Ordered By: Erich Alejandro on 59-14-8411Gjpxkamgxly (Bld) [#/Vol]3.5 10 3/uL1.4-6.5FOhioHealth Nelsonville Health CenterNeutrophils/100 WBC Auto (Bld)Ordered By: Erich Alejandro on 01-45-8990Fwyqbtvqkuv/100 WBC (Bld) 72.1 %43.0-75.0[facility] ShawNo Panel InformationOrdered By: Erich Alejandro on 36-78-0425Admstolvvjh # (Auto)0.0 10 3/uL0.0-0.7FOhioHealth Nelsonville Health CenterImmature Granulocyte # (Auto)0.02 10 3/uL0.00-0.03 [facility], [facility] ShawPlatelet mean volume Auto (Bld) [Entitic vol] Ordered By: Erich Alejandro on 30-22-8072Gaycljfy mean volume (Bld) [Entitic vol] 10.0 fL9.5-13.5FOhioHealth Nelsonville Health CenterPlatelets Auto (Bld) [#/Vol] Ordered By: Erich Alejandro on 44-17-8367Ieshzjnrw (Bld) [#/Vol]98 10 3/uLLow 150-450[facility] ShawRBC Auto (Bld) [#/Vol]Ordered By: Erich Alejandro on 22-44-2414KCG (Bld) [#/Vol]3.94 10 6/uLLow4.70-6.10[facility] Hospitalerum or plasma albumin/globulin mass ratioOrdered By: Erich Alejandro on 02-80-0734Nxzlugr/Globulin [Mass ratio]1.1 {ratio}[facility] Hospitalerum or plasma anion gap determinationOrdered By: Erich Alejandro on 45-82-9360Mpety gap [Moles/Vol]7.0 mmol/LFOhioHealth Nelsonville Health CenterAmbulatory Visit Summaryon 59-84-2091Kuagikdkbi Visit Summary Ambulatory Visit Summary JOSE L [...] A BAEZ MD Where: [facility] [address], [address] [place] [address]- You Need to Schedule the Following Appointments Follow Up with Carlos A BAEZ MD, DONNAL When: Where: [address] [facility] [address] [place] [address]- Medications What How Much When Instructions New hyoscyamine/ methena/ mblue/ phenylsal/ sodbiphos (Uribel oral capsule) 1 Capsules By Mouth Every day Refills: 1 Pickup at [facility]/pharmacy #[id number] Unchanged mirabegron (Myrbetriq 50 mg oral tablet, [...] physician if questions or concerns Pharmacy Information [facility]/pharmacy #[id number]: [address], [place] [id number] [phone] Allergies No Known Allergies Problems Ongoing - [...] closed fracture Anemia, blood (more content not included)...[facility] Urology Office/Clinic Noteon 15-03-7892Xhjttzc Office/Clinic NoteUrology Office/Clinic Note Chief Complaint follow [...] with voice recognition artificial intelligence software, specifically [employer], [employer] and or [employer]. Substitutions may have occurred due to the [...] BAEZ MD, URL [address] [place] [id number]- Additional Instructions: 4 mos Patient Education [...] incontinence Urinary frequency Urinary (more content not included)...[facility] HospitalComment on above:Result Comment: Electronically Signed By: Carlos A BAEZ MD\.br\Date and Time Signed: 04/07/25 10:52 EDT\.br\Electronically Co-Signed By: Alisson Saeed.br\Date and Time Co-Signed: 04/07/25 10:50 PEWOoU4m HPLC (Bld) [Mass fraction]on 29-14-4958KeD6l (Bld) [Mass fraction]Hemoglobin A1c/Hemoglobin.total in Blood by HPLCSelect Medical Cleveland Clinic Rehabilitation Hospital, Edwin ShawHbA1c (Bld) [Mass fraction]7.1 %[facility] ShawBasophils/100 WBC Manual cnt (Bld)on 39-23-6025Twoqfhpnt/100 WBC (Bld)Basophils/100 leukocytes in Blood by Manual countLow0.2-2.0[facility] ShawBasophils/100 WBC (Bld)0.0 %Low0.2-2.0[facility] ShawEosinophils/100 WBC Manual cnt (Bld)on 06-93-5772Vveycrmfqad/100 WBC (Bld)Eosinophils/100 leukocytes in Blood by Manual countLow0.9-7.0[facility] Eosinophils/100 WBC (Bld)0.0 %Low0.9-7.0[facility] Erythrocyte distribution width Auto (RBC) [Ratio]on 89-48-4188Kxnhnpivkdc distribution width (RBC) [Ratio]Erythrocyte distribution width [Ratio] by Automated count11.0-15.0[facility] ShawErythrocyte distribution width (RBC) [Ratio]13.0 %11.0-15.0[facility] Estimated glomerular filtration rate (GFR) non- Americanon 12-17-2024 GFR/1.73 sq M.predicted among non-blacks MDRD (S/P/Bld) [Vol rate/Area]Estimated glomerular filtration rate (GFR) non- AmericanLow>=60 mL/min/1.73m 2 [facility] ShawGFR/1.73 sq M.predicted among non-blacks MDRD (S/P/Bld) [Vol rate/Area]44 mL/min/{1.73_m2}Low>=60 mL/min/1.73m 2FOhioHealth Nelsonville Health CenterGlobulin Calc (S) [Mass/Vol]on 82-43-7039Mucfxbvb (S) [Mass/Vol]Serum globulin measurement by calculation (mass/volume)[facility] ShawGlobulin (S) [Mass/Vol]2.8 g/dLSelect Medical Cleveland Clinic Rehabilitation Hospital, Edwin ShawHematocrit Auto (Bld) [Volume fraction]on 33-52-2764Nrtgyjeglf (Bld) [Volume fraction]Hematocrit [Volume Fraction] of Blood by Automated countLow 42.0-54.0[facility] ShawHematocrit (Bld) [Volume fraction]37.7 %Low42.0-54.0[facility] ShawHemoglobin [Mass/volume] in Blood on 37-74-5517Koosfdxztb (Bld) [Mass/Vol]Hemoglobin [Mass/volume] in BloodLow 14.0-18.0[facility] ShawHemoglobin (Bld) [Mass/Vol]13.1 g/dL Low14.0-18.0[facility] ShawLaboratory - Chemistry and Chemistry - challengeon 66-52-1702Eebeirm [Mass/Vol]3.7 g/dL3.4-5.0[facility] ShawALP [Catalytic activity/Vol]131 U/RZszc32-861OcehfoebsSelect Medical Cleveland Clinic Rehabilitation Hospital, Edwin ShawALT [Catalytic activity/Vol]20 U/I67-79MhqsehmvkSelect Medical [facility] Clinic Rehabilitation Hospital, Edwin ShawAST [Catalytic activity/Vol]13 U/MFxm03-81DsjnflcmrSelect Medical Cleveland Clinic Rehabilitation Hospital, Edwin ShawBilirubin [Mass/Vol]0.4 mg/dL0.2-1.0[facility] ShawCalcium [Mass/Vol]8.7 mg/dL8.5-10.1FOhioHealth Nelsonville Health Center Chloride [Moles/Vol]102 mmol/L98-120RgliqzajpSelect Medical Cleveland Clinic Rehabilitation Hospital, Edwin ShawCO2 [Moles/Vol]27.1 mmol/L21.0-32.0[facility] ShawCreatinine [Mass/Vol]1.52 mg/dLHigh0.70-1.30[facility] ShawGFR/1.73 sq M.predicted MDRD (S/P/Bld) [Vol rate/Area]53 mL/min/{1.73_m2}Low>=60 mL/min/1.73m 2FOhioHealth Nelsonville Health CenterGlucose [Mass/Vol]247 mg/dLHigh 74-106[facility] ShawPotassium [Moles/Vol]4.2 mmol/L3.5-5.1 [facility] ShawProtein [Mass/Vol]6.5 g/dL6.4-8.2FPeoples Hospitalodium [Moles/Vol]137 mmol/C646-184LzegqbvorSelect Medical Cleveland Clinic Rehabilitation Hospital, Edwin ShawTSH Qn1.099 m[IU]/L0.358-3.740[facility] Urea nitrogen [Mass/Vol]21.0 mg/dLHigh7.0-18.0[facility] Urea nitrogen/Creatinine [Mass ratio]13.8 mg/mgSelect Medical [facility] Clinic [facility] Shaw Laboratory - Hematology and Cell countson 88-96-4332Dcpqmuwrfdr/100 WBC (Bld) 12.0 %Low20.5-60.0[facility] ShawMonocytes/100 WBC (Bld)3.0 % 1.7-12.0[facility] ShawLeukocytes [#/volume] corrected for nucleated erythrocytes in Blood by Automated counon 36-00-4970LVE corrected for nucl RBC Auto (Bld) [#/Vol]Leukocytes [#/volume] corrected for nucleated erythrocytes in Blood by Automated coun4.0-11.0[facility] WBC corrected for nucl RBC Auto (Bld) [#/Vol]5.1 10 3/uL4.0-11.0[facility] Auto (RBC) [Entitic mass]on 90-71-9541YEI (RBC) [Entitic mass]MCH [Entitic mass] by Automated uzwsiLahr29.9-34.0[facility] CenterH (RBC) [Entitic mass]34.6 fkYxge01.9-34.0[facility] ShawMCHC Auto (RBC) [Mass/Vol]on 77-13-5905OBYE (RBC) [Mass/Vol]MCHC [Mass/volume] by Automated count29.9-35.2FOhioHealth Nelsonville Health CenterMCHC (RBC) [Mass/Vol]34.7 g/dL29.9-35.2FOhioHealth Nelsonville Health CenterMCV Auto (RBC) [Entitic vol]on 34-92-0907QTV (RBC) [Entitic vol]MCV [Entitic volume] by Automated uxwppDfwg09.0-94.0[facility], Edwin ShawMCV (RBC) [Entitic vol]99.5 bTSvyc49.0-94.0[facility] ShawNo Panel Informationon 63-32-1772Zdanymdh Basophils (Manual)0.00 10 3/uL 0.00-0.10[facility] ShawEosinophils # (Manual)0.00 10 3/uL 0.00-0.70[facility] ShawLymphocytes # (Manual)0.61 10 3/uLLow 1.20-3.80[facility] ShawMonocytes # (Manual)0.15 10 3/uLLow 0.30-0.80[facility] [place] [facility] Hospitalegmented Neutrophils # (Manual)4.33 10 3/uL1.4-6.5FOhioHealth Nelsonville Health CenterPlatelet mean volume Auto (Bld) [Entitic vol]on 52-89-6120Gfqruihq mean volume (Bld) [Entitic vol]Platelet mean volume [Entitic volume] in Blood by Automated countLow9.5-13.5FOhioHealth Nelsonville Health CenterPlatelet mean volume (Bld) [Entitic vol]9.2 fLLow9.5-13.5FOhioHealth Nelsonville Health CenterPlatelets Auto (Bld) [#/Vol]on 52-31-1763Ibzgnwdhz (Bld) [#/Vol]Platelets [#/volume] in Blood by Automated sbywjZad457-855YqrjnhpuiSelect Medical Cleveland Clinic Rehabilitation Hospital, Edwin ShawPlatelets (Bld) [#/Vol]111 10 3/oAHhp431-352RxuznmpzfSelect Medical Cleveland Clinic Rehabilitation Hospital, Edwin ShawRBC Auto (Bld) [#/Vol]on 57-68-0515BHQ (Bld) [#/Vol] Erythrocytes [#/volume] in Blood by Automated countLow4.70-6.10[facility] ShawRBC (Bld) [#/Vol]3.79 10 6/uLLow4.70-6.10[facility] [place] [facility] Hospitalegmented neutrophils/100 WBC Manual cnt (Bld)on 91-78-6705Dfqhsowdv neutrophils/100 WBC (Bld)Manual blood segmented neutrophils/100 yhwfxufqgyRhaa87.0-75.0[facility] Segmented neutrophils/100 WBC (Bld)85.0 %High43.0-75.0[facility] [place] [facility] Hospitalerum or plasma albumin/globulin mass ratioon 23-05-8086Dzsmlxi/Globulin [Mass ratio]Serum or plasma albumin/globulin mass ratioSelect Medical Cleveland Clinic Rehabilitation Hospital, Edwin ShawAlbumin/Globulin [Mass ratio]1.3 {ratio}[facility] [place] Valley Hospitalerum or plasma anion gap determinationon 70-29-7401Ykzdf gap [Moles/Vol] Serum or plasma anion gap determinationSelect Medical Cleveland Clinic Rehabilitation Hospital, Edwin ShawAnion gap [Moles/Vol]12.1 mmol/LFOhioHealth Nelsonville Health CenterAmbulatory Visit Summaryon 76-63-3666Xkidnivwxj Visit SummaryAmbulatory Visit Summary JOSE L AMES [...] Carlos A Hamilton Where: [facility] [address], [address] [place] [address]- Medications What How Much When Instructions New trospium (trospium 20 mg oral tablet) 1 Tablets By Mouth At bedtime Refills: 11 Pickup at [facility]/pharmacy #[id number] Unchanged amlodipine (amLODIPine 10 mg Tab) Contact [...] physician if questions or concerns Pharmacy Information [facility]/pharmacy #[id number]: [address], [place] [id number] [phone] What How Much When Comments Stop Taking [...] you for choosing us for your care. [facility] HospitalUrology Office/Clinic Noteon 91-03-6093Bfwwcla Office/Clinic NoteUrology Office/Clinic Note HPI Staff 84 [...] with voice recognition artificial intelligence software, specifically [employer], [employer] and or [employer]. Substitutions may have occurred due to the [...] SEs -f/u 3-4 mos w/ PVR Ordered: 11816 Measure Post Void residual urine and/or bladder capacity by US- non-imaging Urnls Dip Stick Auto w/o Microscopy POC 27127 2. 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/pharmacy #[id number], 180, cm, 04/15/24 13:22:00 EDT, Height/Length Dosing, 108, kg, 04/15/24 13:22:00 EDT, Weight Dosing Follow-up With When Contact Information [employer], [employer]ABLE ENGINEER-C, Sobeida X, FAM, URL Additional Instructions: 3- [...] influenza virus va (more content not included)...NormalFisher Denver Medical CenterComment on above:Result Comment: Electronically Signed By: JEMAL Medina APRN, Sobeida June\.hussain\Date and Time Signed: 12/11/24 09:45 EDTBasophils Auto (Bld) [#/Vol]Ordered By: Erich Alejandro on 24-14-3286Pgghlaizb (Bld) [#/Vol]Automated basophil count0.0-0.2FOhioHealth Nelsonville Health CenterBasophils/100 WBC Auto (Bld)Ordered By: Erich Alejandro on 24-87-9088Fedcypwaw/100 WBC (Bld)Automated basophil %.[facility], [facility] ShawCT guided bone marrow bx/aspiron 36-39-8897RT guided bone marrow bx/aspirMERCY [facility] [place] [address] CT Scan Report Signed Patient: Jose L Ames MR#: [id number] : 1940 Acct:[id number] Age/Sex: 84 / M ADM Date: 10/22/24 Loc: CT Room: Type: [facility] Attending Dr: Angelo Iglesias MD Copies to: [...] A Jones M.D.10/22/2024 12:44 PM Dictation Location: [place] [address] Transcribed By: [facility] 10/22/24 1244 Dictated By: Jorge A Jones MD 10/22/24 1243 Signed By: 10/22/24 1244NoNovant Health Physician GroupComplete Blood Count Auto Diffon 08-07-6062Felxsquni (Bld) [#/Vol]0.0 10*3/uLNormal0.0-0.2The Atrium Health Physician GroupComment on above:Result Comment: PERFORMED BY: [place] [address] PATHOLOGIST [employer] CONTROLS ENGINEER ALEX SALMERON M.D.Performed By: #### PTT, FIB-C, PT #### [place] [address] USABasophils/100 WBC (Bld)1.1 %Normal.The Atrium Health Physician GroupComment on above:Performed By: #### PTT, FIB-C, PT #### [place] [address] USAEosinophils (Bld) [#/Vol]0.0 10*3/uLNormal0.0-0.45The Atrium Health Physician GroupComment on above:Performed By: #### PTT, FIB-C, PT #### [place] [address] USAEosinophils/100 WBC (Bld)1.1 %Normal.The [facility] Health Physician GroupComment on above:Performed By: #### PTT, FIB-C, PT #### [place] [address] USAErythrocyte distribution width (RBC) [Ratio]13.6 %Normal 12.0-14.8The Atrium Health Physician GroupComment on above:Performed By: #### PTT, FIB-C, PT #### [place] [address] USAHematocrit (Bld) [Volume fraction]38.8 %Cwnuuw49.8-50.0The Atrium Health Physician GroupComment on above:Performed By: #### PTT, FIB-C, PT #### [place] [address] USAHemoglobin (Bld) [Mass/Vol]13.4 g/bTPztuls01.0-17.0The [facility] Health Physician GroupComment on above:Performed By: #### PTT, FIB-C, PT #### [place] [address] USALymphocytes (Bld) [#/Vol]0.5 10*3/uLLow1.00-4.8The [facility] Health Physician GroupComment on above:Performed By: #### PTT, FIB-C, PT #### [place] [address] USALymphocytes/100 WBC (Bld)15.2 %Normal.The [facility] Health Physician GroupComment on above:Performed By: #### PTT, FIB-C, PT #### [place] [address] USAMCH (RBC) [Entitic mass]33.8 ywJduzma45.5-35.2The [facility] Health Physician GroupComment on above:Performed By: #### PTT, FIB-C, PT #### [place] [address] USAMCV (RBC) [Entitic vol]97.9 yRKhghuk78.5-101The At[facility] Health Physician GroupComment on above:Performed By: #### PTT, FIB-C, PT #### [place] [address] USAMean Corpuscular HGB Conc34.5 g/uOSldkoh73.5-35.6The Atrium Health Physician GroupComment on above:Performed By: #### PTT, FIB-C, PT #### [place] [address] [place] [address] USAMonocytes (Bld) [#/Vol]0.5 10*3/uLNormal0.0-0.8The [facility] Health Physician GroupComment on above:Performed By: #### PTT, FIB-C, PT #### [facility] [address] [place] [address] USAMonocytes/100 WBC (Bld)13.7 %Normal.The [facility] Health Physician GroupComment on above:Performed By: #### PTT, FIB-C, PT #### [facility] [address] [place] [address] USANeutrophils (Bld) [#/Vol]2.3 10*3/uLNormal1.8-7.7The [facility] Health Physician GroupComment on above:Performed By: #### PTT, FIB-C, PT #### [facility] [address] [place] [address] USANeutrophils/100 WBC (Bld)68.9 %Normal.The [facility] Health Physician GroupComment on above:Performed By: #### PTT, FIB-C, PT #### [facility] [address] [place] [address] USANRBC%0.1 /100{WBC}Normal0-0.5The [facility] Comment on above:Performed By: #### PTT, FIB-C, PT #### [facility] [address] [place] [address] USAPlatelet mean volume (Bld) [Entitic vol]8.2 fLNormal 6.6-10.1The Atrium Health Physician GroupComment on above:Performed By: #### PTT, FIB-C, PT #### [facility] [address] [place] [address] USAPlatelets (Bld) [#/Vol]117 10*3/oWDfh394-540Hrz Atrium Health Physician GroupComment on above:Performed By: #### PTT, FIB-C, PT #### [facility] [address] [place] [address] USARBC (Bld) [#/Vol]3.96 10*6/uLNormal3.90-5.60The [facility] Health Physician GroupComment on above:Performed By: #### PTT, FIB-C, PT #### [facility] [address] [place] [address] USAWBC (Bld) [#/Vol]3.4 10*3/uLLow4.1-10.5The [facility] Health Physician GroupComment on above:Performed By: #### PTT, FIB-C, PT #### [facility] [address] [place] [id number] USAEosinophils Auto (Bld) [#/Vol]Ordered By: Erich Alejandro on 03-42-4689Qepyxpctwsn (Bld) [#/Vol]Automated eosinophil count0.0-0.45[facility], [facility] ShawEosinophils/100 WBC Auto (Bld)Ordered By: Erich Alejandro on 57-06-1499Gizxqfigcgd/100 WBC (Bld)Automated eosinophil %.[facility] Hospital, Edwin ShawErythrocyte distribution width Auto (RBC) [Ratio]Ordered By: Erich Alejandro on 70-88-9068Ptjlsxzvhgd distribution width (RBC) [Ratio] Erythrocyte distribution width [Ratio] by Automated count12.0-14.8[facility] Hospital, Edwin ShawHematocrit Auto (Bld) [Volume fraction]Ordered By: Erich Alejandro on 70-55-1870Fpslidecdb (Bld) [Volume fraction]Hematocrit [Volume Fraction] of Blood by Automated count38.8-50.0[facility] Hemoglobin [Mass/volume] in BloodOrdered By: Erich Alejandro on 10-22-2024 Hemoglobin (Bld) [Mass/Vol]Hemoglobin [Mass/volume] in Blood13.0-17.0[facility], [facility] ShawINR in Platelet poor plasma by Coagulation assayOrdered By: Angelo Iglesias on 16-43-9395GNN Coag (PPP) [Relative time]INR in Platelet poor plasma by Coagulation assaySelect Medical Cleveland Clinic Rehabilitation Hospital, Edwin ShawComment on above:INR Therapeutic Range A) Pre- and [...] by Automated counOrdered By: Erich Alejandro on 18-77-4251SNB corrected for nucl RBC Auto (Bld) [#/Vol]Leukocytes [#/volume] corrected for nucleated erythrocytes in Blood by Automated counLow4.1-10.5FOhioHealth Nelsonville Health CenterLymphocytes Auto (Bld) [#/Vol]Ordered By: Erich Alejandro on 10-22-2024 Lymphocytes (Bld) [#/Vol]Lymphocytes [#/volume] in Blood by Automated countLow 1.00-4.8[facility], Edwin ShawLymphocytes/100 WBC Auto (Bld)Ordered By: Erich Alejandro on 10-51-4973Vmemqyamawe/100 WBC (Bld)Lymphocytes/100 leukocytes in Blood by Automated count.[facility], [facility] ShawMCH Auto (RBC) [Entitic mass]Ordered By: Erich Alejandro on 98-16-6304RVZ (RBC) [Entitic mass]MCH [Entitic mass] by Automated count27.5-35.2FOhioHealth Nelsonville Health CenterMCHC Auto (RBC) [Mass/Vol]Ordered By: Erich Alejandro on 38-65-3416FGJG (RBC) [Mass/Vol]MCHC [Mass/volume] by Automated count32.5-35.6FOhioHealth Nelsonville Health CenterMCV Auto (RBC) [Entitic vol]Ordered By: Erich Alejandro on 63-51-0755TIP (RBC) [Entitic vol]MCV [Entitic volume] by Automated count83.5-101 [facility] ShawMonocytes Auto (Bld) [#/Vol]Ordered By: Erich Alejandro on 76-52-5508Ccryllsgj (Bld) [#/Vol]Automated blood monocyte count 0.0-0.8[facility] ShawMonocytes/100 WBC Auto (Bld)Ordered By: Erich Alejandro on 92-48-1423Gnstdcsqe/100 WBC (Bld)Automated monocyte %.[facility] Hospital, Edwin ShawNeutrophils Auto (Bld) [#/Vol]Ordered By: Erich Alejandro on 45-70-5133Joaybufpptf (Bld) [#/Vol]Neutrophils [#/volume] in Blood by Automated count1.8-7.7FOhioHealth Nelsonville Health CenterNeutrophils/100 WBC Auto (Bld)Ordered By: Erich Alejandro on 58-69-6073Qrgyjbfzeya/100 WBC (Bld)Automated neutrophil %.[facility] ShawNo Panel InformationOrdered By: Angelo Iglesias on 09-97-6319Vhdtxpeuhfqrp Pathology TestSee commentSelect Medical Cleveland Clinic Rehabilitation Hospital, Edwin ShawComment on above:See report. Scanned copy available in EMR.Nucleated erythrocytes [Presence] in Blood by Automated countOrdered By: Erich Alejandro on 98-00-8364Cpbhrnbor RBC Auto Ql (Bld)Nucleated erythrocytes [Presence] in Blood by Automated count0-0.5FOhioHealth Nelsonville Health Center Pathology Request for Lab Corpon 34-41-7207Nvlmeggwt Request for Lab CorpNormal The Atrium Health Physician GroupComment on above:Result Comment: See report. Scanned copy available in EMR. PERFORMED BY: [place] [address] PATHOLOGIST [employer] CONTROLS ENGINEER ALEX SALMERON M.D.Performed By: #### PTT, FIB-C, PT #### [place] [address] USAPlatelet mean volume Auto (Bld) [Entitic vol]Ordered By: Erich Alejandro on 99-99-6110Yfsoerff mean volume (Bld) [Entitic vol]Platelet mean volume [Entitic volume] in Blood by Automated count6.6-10.1FOhioHealth Nelsonville Health CenterPlatelets Auto (Bld) [#/Vol]Ordered By: Erich Alejandro on 39-20-1885Xphymqsnk (Bld) [#/Vol]Platelets [#/volume] in Blood by Automated qcgknQxe021-694IcixdovmzSelect Medical Cleveland Clinic Rehabilitation Hospital, Edwin ShawProthrombin Time INRon 53-35-1267LGY Coag (PPP) [Relative time]1.0 {INR}NormalThe Atrium Health Physician GroupComment on above:Result Comment: INR [...] heart valves: 3 - 4.5 PERFORMED BY: [place] [id number] PATHOLOGIST [employer] CONTROLS ENGINEER ALEX SALMERON M.D.Performed By: #### BMP, MG, CBC #### [facility] [address] [place] [address] USAPT Coag (PPP) [Time]11.3 sNormal9.0-12.9The Atrium Health Physician GroupComment on above:Result Comment: A hematocrit value greater than 55% may lead to inaccurate results in coagulation testing. Patients having hematocrit values >55% require a special collection tube for coagulation studies. Please contact the laboratory at [phone] for redraw instructions.Performed By: #### BMP, MG, CBC #### [facility] [address] [place] [address] USAProthrombin time (PT)Ordered By: Angelo Iglesias on 95-10-3000PH Coag (PPP) [Time]Prothrombin time (PT)9.0-12.9[facility], Edwin ShawComment on above:A hematocrit value greater than 55% may lead to inaccurate results in coagulation testing. Patientshaving hematocrit values >55% require a special collection tube for coagulation studies. Please contact the laboratory at [phone] for redraw instructions.RBC Auto (Bld) [#/Vol]Ordered By: Erich Alejandro on 09-12-3498JZP (Bld) [#/Vol]Erythrocytes [#/volume] in Blood by Automated count3.90-5.60[facility], [facility] ShawWBC Auto (Bld) [#/Vol]Ordered By: Erich Alejandro on 17-12-4418XVK (Bld) [#/Vol]Leukocytes [#/volume] in Blood by Automated countLow4.1-10.5FOhioHealth Nelsonville Health CenterBasic Metabolic Panelon 69-27-6447Bexld gap [Moles/Vol]9.3 mmol/LNormal 6.0-15.0The [facility] Health Physician GroupComment on above:Performed By: #### BMP, MG, CBC #### [facility] [address] [place] [address] USACalcium [Mass/Vol]7.9 mg/dLLow8.6-10.3The Atrium Health Physician GroupComment on above:Performed By: #### BMP, MG, CBC #### [facility] [address] [place] [address] USAChloride [Moles/Vol]104 mmol/LHvamue71-349Ntm [facility] Health Physician GroupComment on above:Performed By: #### BMP, MG, CBC #### [facility] [address] [place] [address] USACO2 [Moles/Vol]27.1 mmol/OXxkmxq08.0-31.0The [facility] Health Physician GroupComment on above:Performed By: #### BMP, MG, CBC #### [place] [address] USACreatinine [Mass/Vol]1.17 mg/dLNormal0.70-1.30The [facility] Health Physician GroupComment on above:Performed By: #### BMP, MG, CBC #### [facility] [address] [place] [address] USACreatinine Clr Calc Iluhpchu29.95NormalThe Atrium Health Physician GroupComment on above:Performed By: #### BMP, MG, CBC #### [place] [address] USAGFR/1.73 sq M.predicted MDRD (S/P/Bld) [Vol rate/Area] mL/min/{1.73_m2}NormalThe Atrium Health Physician GroupComment on above:Performed By: #### BMP, MG, CBC #### [place] [address] USAGlucose [Mass/Vol]168 mg/pOUotf83-354Agi [facility] Health Physician GroupComment on above:Result Comment: Random Glucose Reference Range is dependent on time and content of last meal. Glucose of more than 200 mg/dL in a nonstressed, ambulatory subject supports the diagnosis of Diabetes Mellitus. ADA recommended reference rangePerformed By: #### BMP, MG, CBC #### [facility] [address] [place] [address] USAPotassium [Moles/Vol]3.4 mmol/LLow3.5-5.1The [facility] Health Physician GroupComment on above:Performed By: #### BMP, MG, CBC #### [facility] [address] [place] [address] USASodium [Moles/Vol]137 mmol/IRihiuj337-263Bzn [facility] Health Physician GroupComment on above:Performed By: #### BMP, MG, CBC #### [facility] [address] [place] [address] USAUrea nitrogen [Mass/Vol]17 mg/dLNormal7-25The [facility] Health Physician GroupComment on above:Performed By: #### BMP, MG, CBC #### [facility] [address] [place] [id number] USABasophils Auto (Bld) [#/Vol]Ordered By: [place] on 52-57-5976Szdmzbohq (Bld) [#/Vol]Automated basophil count0.0-0.2 [facility] ShawBasophils/100 WBC Auto (Bld)Ordered By: [place] on 68-36-9813Ydqdslpov/100 WBC (Bld)Automated basophil %. [facility] ShawCalcium [Mass/volume] in Serum or PlasmaOrdered By: [place] on 54-34-5904Innoksk [Mass/Vol]Calcium [Mass/volume] in Serum or PlasmaLow8.6-10.3FOhioHealth Nelsonville Health CenterCarbon dioxide, total [Moles/volume] in Serum or PlasmaOrdered By: [place] on 67-53-0520RV7 [Moles/Vol]Carbon dioxide, total [Moles/volume] in Serum or Plasma 21.0-31.0[facility], [facility] ShawChloride [Moles/volume] in Serum or PlasmaOrdered By: [place] on 89-32-3777Jhfjiaxc [Moles/Vol]Chloride [Moles/volume] in Serum or Tcetfl79-744RwiraooiuSelect Medical Cleveland Clinic Rehabilitation Hospital, Edwin ShawComplete Blood Count Auto Diffon 34-84-5555Nnzwabyol (Bld) [#/Vol]0.0 10*3/uLNormal 0.0-0.2The At[facility] Health Physician GroupComment on above:Result Comment: PERFORMED BY: [place] [address] PATH[employer]IST [employer] CONTROLS ENGINEER ALEX SALMERON M.D.Performed By: #### BMP, MG, CBC #### [facility] [address] [place] [address] USABasophils/100 WBC (Bld)1.4 %Normal.The [facility] Health Physician GroupComment on above:Performed By: #### BMP, MG, CBC #### [facility] [address] [place] [address] USAEosinophils (Bld) [#/Vol]0.1 10*3/uLNormal0.0-0.45The [facility] Health Physician GroupComment on above:Performed By: #### BMP, MG, CBC #### [place] [address] USAEosinophils/100 WBC (Bld)2.0 %Normal.The [facility] Health Physician GroupComment on above:Performed By: #### BMP, MG, CBC #### [place] [address] USAErythrocyte distribution width (RBC) [Ratio]13.1 %Normal 12.0-14.8The Atrium Health Physician GroupComment on above:Performed By: #### BMP, MG, CBC #### [facility] [address] [place] [address] USAHematocrit (Bld) [Volume fraction]32.8 %Low38.8-50.0The [facility] Health Physician GroupComment on above:Performed By: #### BMP, MG, CBC #### [facility] [address] [place] [address] USAHemoglobin (Bld) [Mass/Vol]11.7 g/dLLow13.0-17.0The [facility] Health Physician GroupComment on above:Performed By: #### BMP, MG, CBC #### [place] [address] USALymphocytes (Bld) [#/Vol]0.8 10*3/uLLow1.00-4.8The [facility] Health Physician GroupComment on above:Performed By: #### BMP, MG, CBC #### [place] [address] USALymphocytes/100 WBC (Bld)24.6 %Normal.The [facility] Health Physician GroupComment on above:Performed By: #### BMP, MG, CBC #### [address]H (RBC) [Entitic mass]34.3 wcEdtubf92.5-35.2The Atrium Health Physician GroupComment on above:Performed By: #### BMP, MG, CBC #### [address]V (RBC) [Entitic vol]96.0 cASznold98.5-101The Atrium Health Physician GroupComment on above:Performed By: #### BMP, MG, CBC #### [place] [address] USAMean Corpuscular HGB Conc35.7 g/tGJfdt71.5-35.6The [facility] Health Physician GroupComment on above:Performed By: #### BMP, MG, CBC #### [place] [address] USAMonocytes (Bld) [#/Vol]0.3 10*3/uLNormal0.0-0.8The [facility] Health Physician GroupComment on above:Performed By: #### BMP, MG, CBC #### [place] [address] USAMonocytes/100 WBC (Bld)9.8 %Normal.The [facility] Health Physician GroupComment on above:Performed By: #### BMP, MG, CBC #### [address] [place] [address] USANeutrophils (Bld) [#/Vol]2.0 10*3/uLNormal1.8-7.7The [facility] Health Physician GroupComment on above:Performed By: #### BMP, MG, CBC #### [facility] [address] [place] [address] USANeutrophils/100 WBC (Bld)62.2 %Normal.The [facility] Health Physician GroupComment on above:Performed By: #### BMP, MG, CBC #### [facility] [address] [place] [address] USANRBC%0.1 /100{WBC}Normal0-0.5[facility] Comment on above:Performed By: #### BMP, MG, CBC #### [facility] [address] [place] [address] USAPlatelet mean volume (Bld) [Entitic vol]8.0 fLNormal 6.6-10.1The [facility] Health Physician GroupComment on above:Performed By: #### BMP, MG, CBC #### [facility] [address] [place] [address] USAPlatelets (Bld) [#/Vol]85 10*3/iDBeh515-013Fnj [facility] Physician GroupComment on above:Performed By: #### BMP, MG, CBC #### [facility] [address] [place] [address] USARBC (Bld) [#/Vol]3.42 10*6/uLLow3.90-5.60The [facility] Physician GroupComment on above:Performed By: #### BMP, MG, CBC #### [facility] [address] [place] [address] USAWBC (Bld) [#/Vol]3.2 10*3/uLLow4.1-10.5The [facility] Physician GroupComment on above:Performed By: #### BMP, MG, CBC #### [facility] [address] [place] [address] USACreatinine [Mass/volume] in Serum or PlasmaOrdered By: West Caraballo on 30-98-3411Fygdwmrbka [Mass/Vol]Creatinine [Mass/volume] in Serum or Plasma0.70-1.30[facility] ShawEosinophils Auto (Bld) [#/Vol]Ordered By: West Caraballo on 89-20-6856Kjzyjwiftra (Bld) [#/Vol]Automated eosinophil count0.0-0.45[facility] Eosinophils/100 WBC Auto (Bld)Ordered By: West Caraballo on 10-14-2024 Eosinophils/100 WBC (Bld)Automated eosinophil %.[facility] ShawErythrocyte distribution width Auto (RBC) [Ratio]Ordered By: West Caraballo on 34-39-0792Ioabwpcckci distribution width (RBC) [Ratio]Erythrocyte distribution width [Ratio] by Automated count12.0-14.8[facility] ShawGlucose Glucometer (BldC) [Mass/Vol]Ordered By: West Caraballo on 21-31-9468Yrllcgn [Mass/Vol]Capillary blood glucose measurement by glucometer (mass/volume)[facility] ShawComment on above:Random Glucose Reference Range is dependent on time and content of last meal. Glucose of more than 200 mg/dL in a nonstressed, ambulatory subject supports the diagnosis of Diabetes Mellitus.Glucose Poct Glucometerson 76-29-4569Toyozvt5Czn9: Cleaned MeterHCA Florida Pasadena Hospital Physician GroupComment on above:Result Comment: PERFORMED BY: [place] [address] [place] [address] PATHOLOGIST [employer] CONTROLS ENGINEER ALEX SALMERON M.D.Performed By: #### GLULS #### Point of Care testing ,Glucose [Mass/Vol]201 mg/dLHCA Florida Pasadena Hospital Physician GroupComment on above: Result Comment: Random Glucose Reference Range is dependent on time and content of last meal. Glucose of more than 200 mg/dL in a nonstressed, ambulatory subject supports the diagnosis of Diabetes Mellitus.Performed By: #### GLULS #### Point of Care testing ,Wfdeazv4Vuc6: Cleaned MeterrmHealthPark Medical Center Physician GroupComment on above: Result Comment: PERFORMED BY: [facility] [place] [place] [address] PATHOLOGIST [employer] CONTROLS ENGINEER ALEX SALMERON M.D.Performed By: #### GLULS #### Point of Care testing ,Glucose [Mass/Vol]145 mg/dLHCA Florida Pasadena Hospital Physician GroupComment on above: Result Comment: Random Glucose Reference Range is dependent on time and content of last meal. Glucose of more than 200 mg/dL in a nonstressed, ambulatory subject supports the diagnosis of Diabetes Mellitus.Performed By: #### GLULS #### Point of Care testing ,Glucose [Mass/volume] in Serum or PlasmaOrdered By: West Caraballo on 74-50-9988Mdeyjgs [Mass/Vol]Glucose [Mass/volume] in Serum or XnytdqSbsk21-718 [facility] ShawComment on above:ADA recommended reference rangeRandom Glucose Reference Range is dependent on time and content of last meal. Glucose of more than 200 mg/dL in a nonstressed, ambulatory subject supports the diagnosisof Diabetes Mellitus.Hematocrit Auto (Bld) [Volume fraction]Ordered By: West Caraballo on 88-85-3107Erbgqegxll (Bld) [Volume fraction]Hematocrit [Volume Fraction] of Blood by Automated uhearXbq79.8-50.0 [facility] ShawHemoglobin [Mass/volume] in BloodOrdered By: West Caraballo on 58-36-2389Ovteelpmyj (Bld) [Mass/Vol]Hemoglobin [Mass/volume] in AzebhPvr06.0-17.0[facility] ShawLeukocytes [#/volume] corrected for nucleated erythrocytes in Blood by Automated coun Ordered By: West Caraabllo on 79-35-8100VWY corrected for nucl RBC Auto (Bld) [#/Vol]Leukocytes [#/volume] corrected for nucleated erythrocytes in Blood by Automated counLow4.1-10.5FOhioHealth Nelsonville Health CenterLymphocytes Auto (Bld) [#/Vol]Ordered By: West Caraballo on 31-70-0097Beyhqspvvxe (Bld) [#/Vol]Lymphocytes [#/volume] in Blood by Automated countLow1.00-4.8[facility] ShawLymphocytes/100 WBC Auto (Bld)Ordered By: West Caraballo on 15-68-2155Mzmxxwwjepc/100 WBC (Bld)Lymphocytes/100 leukocytes in Blood by Automated count.[facility] CenterH Auto (RBC) [Entitic mass]Ordered By: West Caraballo on 43-39-1796RMK (RBC) [Entitic mass]MCH [Entitic mass] by Automated count27.5-35.2FOhioHealth Nelsonville Health CenterMCHC Auto (RBC) [Mass/Vol]Ordered By: West Caraballo on 10-14-2024 MCHC (RBC) [Mass/Vol]MCHC [Mass/volume] by Automated odzrdYpjn40.5-35.6FOhioHealth Nelsonville Health CenterMCV Auto (RBC) [Entitic vol]Ordered By: West Caraballo on 06-44-0012VZL (RBC) [Entitic vol]MCV [Entitic volume] by Automated count83.5-101[facility] ShawMagnesiumon 00-74-7688Zwjfpoelu [Mass/Vol]1.7 mg/dLLow1.9-2.7The [facility] Physician GroupComment on above: Result Comment: PERFORMED BY: [place] [address] PATHOLOGIST [employer] CONTROLS ENGINEER ALEX SALMERON M.D.Performed By: #### BMP, MG, CBC #### [place] [address] USAMagnesium [Mass/volume] in Serum or PlasmaOrdered By: West Caraballo on 68-05-8420Usxdqyvpc [Mass/Vol]Magnesium [Mass/volume] in Serum or PlasmaLow1.9-2.7FOhioHealth Nelsonville Health CenterMonocytes Auto (Bld) [#/Vol]Ordered By: West Caraballo on 53-65-9638Uiaeilmze (Bld) [#/Vol] Automated blood monocyte count0.0-0.8[facility] Monocytes/100 WBC Auto (Bld)Ordered By: West Caraballo on 10-14-2024 Monocytes/100 WBC (Bld)Automated monocyte %.[facility] Neutrophils Auto (Bld) [#/Vol]Ordered By: West Caraballo on 10-14-2024 Neutrophils (Bld) [#/Vol]Neutrophils [#/volume] in Blood by Automated count 1.8-7.7FOhioHealth Nelsonville Health CenterNeutrophils/100 WBC Auto (Bld)Ordered By: West Caraballo on 54-25-8020Aixgjsermve/100 WBC (Bld)Automated neutrophil %.[facility] ShawNo Panel InformationOrdered By: West Caraballo on 02-13-8993Orvhlfl Glucose CommentGlu2: cleaned meter [facility] ShawEstimated GFR (CKD-EPI)> 60.0 mL/MinSelect Medical Cleveland Clinic Rehabilitation Hospital, Edwin ShawPharmacy Creatinine Clearance (Chem57.95[facility] ShawNucleated erythrocytes [Presence] in Blood by Automated countOrdered By: West Caraballo on 86-67-5982Gacfewwlp RBC Auto Ql (Bld) Nucleated erythrocytes [Presence] in Blood by Automated count0-0.5FOhioHealth Nelsonville Health CenterPlatelet mean volume Auto (Bld) [Entitic vol]Ordered By: West Caraballo on 75-32-7694Bjnogsqr mean volume (Bld) [Entitic vol] Platelet mean volume [Entitic volume] in Blood by Automated count6.6-10.1 [facility] ShawPlatelets Auto (Bld) [#/Vol]Ordered By: West Caraballo on 77-43-3006Irteiuqap (Bld) [#/Vol]Platelets [#/volume] in Blood by Automated lrvycKaz091-740FvayxityoSelect Medical Cleveland Clinic Rehabilitation Hospital, Edwin ShawPotassium [Moles/volume] in Serum or PlasmaOrdered By: West Caraballo on 10-14-2024 Potassium [Moles/Vol]Potassium [Moles/volume] in Serum or PlasmaLow3.5-5.1 [facility] ShawRBC Auto (Bld) [#/Vol]Ordered By: West Caraballo on 90-87-2289NYM (Bld) [#/Vol]Erythrocytes [#/volume] in Blood by Automated countLow3.90-5.60[facility] [place] [facility] Hospitalerum or plasma anion gap determinationOrdered By: West Caraballo on 38-09-7999Wvann gap [Moles/Vol]Serum or plasma anion gap determination6.0-15.0[facility] [place] [facility] Hospitalodium [Moles/volume] in Serum or PlasmaOrdered By: West Caraballo on 97-89-4593Gmrmil [Moles/Vol]Sodium [Moles/volume] in Serum or Dwgkiw569-104LastwehusSelect Medical Cleveland Clinic Rehabilitation Hospital, Edwin ShawUrea nitrogen [Mass/volume] in Serum or PlasmaOrdered By: West Caraballo on 62-02-5043Wdkm nitrogen [Mass/Vol]Urea nitrogen [Mass/volume] in Serum or Plasma7-25[facility] ShawWBC Auto (Bld) [#/Vol]Ordered By: West Caraballo on 01-52-1177MBJ (Bld) [#/Vol]Leukocytes [#/volume] in Blood by Automated countLow 4.1-10.5FOhioHealth Nelsonville Health CenterBasic Metabolic Panelon 30-08-7115Ajdcp gap [Moles/Vol]8.8 mmol/LNormal6.0-15.0The [facility] Physician GroupComment on above:Performed By: #### BMP, MG, CBC #### [facility] [address] [id number] USACalcium [Mass/Vol]7.8 mg/dLLow8.6-10.3The [facility] Physician GroupComment on above:Performed By: #### BMP, MG, CBC #### [facility] [address] [place] [address] USAChloride [Moles/Vol]107 mmol/LEjzjru73-330Zuo [facility]ician GroupComment on above:Performed By: #### BMP, MG, CBC #### [facility] [address] [place] [address] USACO2 [Moles/Vol]25.7 mmol/NBcjjrk49.0-31.0The [facility] Physician GroupComment on above:Performed By: #### BMP, MG, CBC #### [place] [address] USACreatinine [Mass/Vol]1.01 mg/dLNormal0.70-1.30The [facility] Physician GroupComment on above:Performed By: #### BMP, MG, CBC #### [place] [address] USACreatinine Clr Calc Vwdbkdsv11.31NormalThe [facility] Health Physician GroupComment on above:Result Comment: PERFORMED BY: [place] [address] PATHOLOGIST [employer] CONTROLS ENGINEER ALEX SALMERON M.D.Performed By: #### BMP, MG, CBC #### [place] [address] USAGFR/1.73 sq M.predicted MDRD (S/P/Bld) [Vol rate/Area] mL/min/{1.73_m2}NormalThe [facility] Health Physician GroupComment on above:Performed By: #### BMP, MG, CBC #### [place] [address] USAGlucose [Mass/Vol]144 mg/cDArhs31-147Mlf [facility]ician GroupComment on above:Result Comment: Random Glucose Reference Range is dependent on time and content of last meal. Glucose of more than 200 mg/dL in a nonstressed, ambulatory subject supports the diagnosis of Diabetes Mellitus. ADA recommended reference rangePerformed By: #### BMP, MG, CBC #### [place] [address] USAPotassium [Moles/Vol]3.5 mmol/LNormal3.5-5.1The [facility] Physician GroupComment on above:Performed By: #### BMP, MG, CBC #### [place] [address] USASodium [Moles/Vol]138 mmol/IRlmakd779-545Wxv [facility]ician GroupComment on above:Performed By: #### BMP, MG, CBC #### [place] [address] USAUrea nitrogen [Mass/Vol]14 mg/dLNormal7-25The [facility] Physician GroupComment on above:Performed By: #### BMP, MG, CBC #### [place] [address] USAComplete Blood Count Auto Diffon 42-53-1563Gtqmvgwkj (Bld) [#/Vol]0.0 10*3/uLNormal0.0-0.2The [facility] GroupComment on above: Result Comment: PERFORMED BY: [place] [address] PATHOLOGIST [employer] CONTROLS ENGINEER ALEX SALMERON M.D.Performed By: #### BMP, MG, CBC #### [place] [address] USABasophils/100 WBC (Bld)0.9 %Normal.The [facility] Physician GroupComment on above:Performed By: #### BMP, MG, CBC #### [place] [address] USAEosinophils (Bld) [#/Vol]0.0 10*3/uLNormal0.0-0.45The [facility]ician GroupComment on above:Performed By: #### BMP, MG, CBC #### [place] [address] USAEosinophils/100 WBC (Bld)1.7 %Normal.The [facility] Physician GroupComment on above:Performed By: #### BMP, MG, CBC #### [place] [address] USAErythrocyte distribution width (RBC) [Ratio]12.9 %Normal 12.0-14.8The [facility] Physician GroupComment on above:Performed By: #### BMP, MG, CBC #### [place] [address] USAHematocrit (Bld) [Volume fraction]33.3 %Low38.8-50.0The [facility]ician GroupComment on above:Performed By: #### BMP, MG, CBC #### [facility] [address] [place] [address] USAHemoglobin (Bld) [Mass/Vol]11.7 g/dLLow13.0-17.0The [facility] GroupComment on above:Performed By: #### BMP, MG, CBC #### [place] [address] USALymphocytes (Bld) [#/Vol]0.7 10*3/uLLow1.00-4.8The [facility]ician GroupComment on above:Performed By: #### BMP, MG, CBC #### [place] [address] USALymphocytes/100 WBC (Bld)25.8 %Normal.The [facility] Physician GroupComment on above:Performed By: #### BMP, MG, CBC #### [address]H (RBC) [Entitic mass]33.7 sjVqabmj13.5-35.2The [facility] Physician GroupComment on above:Performed By: #### BMP, MG, CBC #### [place] [address] USAMCV (RBC) [Entitic vol]96.2 qXOfhdzb57.5-101The [facility] Physician GroupComment on above:Performed By: #### BMP, MG, CBC #### [place] [address] USAMean Corpuscular HGB Conc35.0 g/aNMaskdi32.5-35.6The [facility]ician GroupComment on above:Performed By: #### BMP, MG, CBC #### [facility] [address] [place] [address] USAMonocytes (Bld) [#/Vol]0.2 10*3/uLNormal0.0-0.8The [facility]ician GroupComment on above:Performed By: #### BMP, MG, CBC #### [place] [address] USAMonocytes/100 WBC (Bld)7.9 %Normal.The [facility]ician GroupComment on above:Performed By: #### BMP, MG, CBC #### [facility] [address] [place] [address] USANeutrophils (Bld) [#/Vol]1.7 10*3/uLLow1.8-7.7The [facility]ician GroupComment on above:Performed By: #### BMP, MG, CBC #### [place] [address] USANeutrophils/100 WBC (Bld)63.7 %Normal.The [facility]ician GroupComment on above:Performed By: #### BMP, MG, CBC #### [place] [address] USANRBC%0.2 /100{WBC}Normal0-0.5[facility] Comment on above:Performed By: #### BMP, MG, CBC #### [facility] [address] [place] [address] USAPlatelet mean volume (Bld) [Entitic vol]8.0 fLNormal 6.6-10.1The [facility] Physician GroupComment on above:Performed By: #### BMP, MG, CBC #### [place] [address] USAPlatelets (Bld) [#/Vol]77 10*3/hXDqa722-228Ncz [facility] GroupComment on above:Performed By: #### BMP, MG, CBC #### [place] [address] USARBC (Bld) [#/Vol]3.46 10*6/uLLow3.90-5.60The [facility]ician GroupComment on above:Performed By: #### BMP, MG, CBC #### [facility] [address] [place] [address] USAWBC (Bld) [#/Vol]2.7 10*3/uLLow4.1-10.5The [facility]ician GroupComment on above:Performed By: #### BMP, MG, CBC #### [place] [address] USAGlucose Poct Glucometerson 26-21-5398Cskaxhc [Mass/Vol]184 mg/dLNoNovant Health Physician GroupComment on above:Result Comment: Random Glucose Reference Range is dependent on time and content of last meal. Glucose of more than 200 mg/dL in a nonstressed, ambulatory subject supports the diagnosis of Diabetes Mellitus. PERFORMED BY: [place] [address] PATHOLOGIST [employer] CONTROLS ENGINEER ALEX SALMERON M.D.Performed By: #### GLULS #### Point of Care testing ,Glucose [Mass/Vol]134 mg/dLNoNovant Health Physician GroupComment on above: Result Comment: Random Glucose Reference Range is dependent on time and content of last meal. Glucose of more than 200 mg/dL in a nonstressed, ambulatory subject supports the diagnosis of Diabetes Mellitus. PERFORMED BY: [place] [address] PATHOLOGIST [employer] CONTROLS ENGINEER ALEX SALMERON M.D.Performed By: #### PTT, FIB-C, PT #### [place] [address] USAGlucose [Mass/Vol]172 mg/dLNoNovant Health Physician GroupComment on above:Result Comment: Random Glucose Reference Range is dependent on time and content of last meal. Glucose of more than 200 mg/dL in a nonstressed, ambulatory subject supports the diagnosis of Diabetes Mellitus. PERFORMED BY: [place] [id number] PATHOLOGIST PLC CONTROLS ENGINEER ALEX SALMERON M.D.Performed By: #### PTT, FIB-C, PT #### [place] [address] USAGlucose [Mass/Vol]125 mg/dLNoNovant Health Physician GroupComment on above:Result Comment: Random Glucose Reference Range is dependent on time and content of last meal. Glucose of more than 200 mg/dL in a nonstressed, ambulatory subject supports the diagnosis of Diabetes Mellitus. PERFORMED BY: [place] [address] [place] [address] PATHOLOGIST [employer] CONTROLS ENGINEER ALEX SALMERON M.D.Performed By: #### GLULS #### Point of Care testing ,Alanine aminotransferase [Enzymatic activity/volume] in Serum or PlasmaOrdered By: Loyda Carlos on 32-41-2147FHO [Catalytic activity/Vol]Alanine aminotransferase [Enzymatic activity/volume] in Serum or Plasma7-52[facility] ShawAlbumin [Mass/volume] in Serum or Plasma by Bromocresol green (BCG) dye binding methoOrdered By: Loyda Carlos on 04-82-4235Ebdvkrm BCG dye [Mass/Vol]Albumin [Mass/volume] in Serum or Plasma by Bromocresol green (BCG) dye binding methoLow3.5-5.7FOhioHealth Nelsonville Health CenterAlkaline phosphatase [Enzymatic activity/volume] in Serum or PlasmaOrdered By: Loyda Carlos on 00-34-5421BOM [Catalytic activity/Vol]Alkaline phosphatase [Enzymatic activity/volume] in Serum or Xrdudk78-624RjjnaehawSelect Medical Cleveland Clinic [facility], [facility] Shaw Aspartate aminotransferase [Enzymatic activity/volume] in Serum or PlasmaOrdered By: Loyda Carlos on 19-84-7066VKI [Catalytic activity/Vol]Aspartate aminotransferase [Enzymatic activity/volume] in Serum or PszckdVwox69-59 [facility], [facility] ShawBilirubin.total [Mass/volume] in Serum or PlasmaOrdered By: Loyda Carlos on 00-02-7530Wedlappjj [Mass/Vol]Bilirubin.total [Mass/volume] in Serum or Plasma0.3-1.0[facility] ShawComplete Blood Count Auto Diffon 97-39-2630Uqoradzwv (Bld) [#/Vol]0.0 10*3/uLNormal 0.0-0.2The [facility] Physician GroupComment on above:Result Comment: PERFORMED BY: [facility] [address] [place] [address] PATHOLOGIST [employer] CONTROLS ENGINEER ALEX SALMERON M.D.Performed By: #### PTT, FIB-C, PT #### [place] [address] USABasophils/100 WBC (Bld)1.0 %Normal.The [facility] Physician GroupComment on above:Performed By: #### PTT, FIB-C, PT #### [place] [address] USAEosinophils (Bld) [#/Vol]0.0 10*3/uLNormal0.0-0.45The [facility] Physician GroupComment on above:Performed By: #### PTT, FIB-C, PT #### [place] [address] USAEosinophils/100 WBC (Bld)1.5 %Normal.The [facility] Physician GroupComment on above:Performed By: #### PTT, FIB-C, PT #### [place] [address] USAErythrocyte distribution width (RBC) [Ratio]13.4 %Normal 12.0-14.8The [facility] Physician GroupComment on above:Performed By: #### PTT, FIB-C, PT #### [place] [address] USAHematocrit (Bld) [Volume fraction]32.8 %Low38.8-50.0The [facility] Physician GroupComment on above:Performed By: #### PTT, FIB-C, PT #### [place] [address] USAHemoglobin (Bld) [Mass/Vol]11.5 g/dLLow13.0-17.0The [facility] Physician GroupComment on above:Performed By: #### PTT, FIB-C, PT #### [place] [address] USALymphocytes (Bld) [#/Vol]0.7 10*3/uLLow1.00-4.8The [facility] Physician GroupComment on above:Performed By: #### PTT, FIB-C, PT #### [place] [address] USALymphocytes/100 WBC (Bld)26.9 %Normal.The [facility] Physician GroupComment on above:Performed By: #### PTT, FIB-C, PT #### [address] (RBC) [Entitic mass]33.5 zgJrcgqp24.5-35.2The [facility] Physician GroupComment on above:Performed By: #### PTT, FIB-C, PT #### [address] (RBC) [Entitic vol]96.0 eLAeiwte97.5-101The [facility] Physician GroupComment on above:Performed By: #### PTT, FIB-C, PT #### [place] [address] USAMean Corpuscular HGB Conc34.9 g/nKNtnjhq11.5-35.6The [facility] Physician GroupComment on above:Performed By: #### PTT, FIB-C, PT #### [place] [address] USAMonocytes (Bld) [#/Vol]0.3 10*3/uLNormal0.0-0.8The [facility] Physician GroupComment on above:Performed By: #### PTT, FIB-C, PT #### [place] [address] USAMonocytes/100 WBC (Bld)10.4 %Normal.The [facility] Physician GroupComment on above:Performed By: #### PTT, FIB-C, PT #### [facility] [address] [place] [address] USANeutrophils (Bld) [#/Vol]1.5 10*3/uLLow1.8-7.7The [facility] Physician GroupComment on above:Performed By: #### PTT, FIB-C, PT #### [place] [address] USANeutrophils/100 WBC (Bld)60.2 %Normal.The [facility] Physician GroupComment on above:Performed By: #### PTT, FIB-C, PT #### [facility] [address] [place] [address] USANRBC%0.3 /100{WBC}Normal0-0.5[facility] Comment on above:Performed By: #### PTT, FIB-C, PT #### [place] [address] USAPlatelet mean volume (Bld) [Entitic vol]8.0 fLNormal 6.6-10.1The [facility] Physician GroupComment on above:Performed By: #### PTT, FIB-C, PT #### [place] [address] USAPlatelets (Bld) [#/Vol]73 10*3/yALjp654-621Fdw [facility] Physician GroupComment on above:Performed By: #### PTT, FIB-C, PT #### [place] [address] USARBC (Bld) [#/Vol]3.42 10*6/uLLow3.90-5.60The [facility] Physician GroupComment on above:Performed By: #### PTT, FIB-C, PT #### [place] [address] USAWBC (Bld) [#/Vol]2.5 10*3/uLLow4.1-10.5The [facility] Physician GroupComment on above:Performed By: #### PTT, FIB-C, PT #### [place] [address] USAComprehensive Metabolic Panelon 30-05-4656Wykvotl [Mass/Vol]3.0 g/dLLow3.5-5.7The [facility] Physician GroupComment on above: Performed By: #### PTT, FIB-C, PT #### [place] [address] USAAlbumin/Globulin [Mass ratio]1.8 {ratio}NormalThe [facility]rium Health Physician GroupComment on above:Performed By: #### PTT, FIB-C, PT #### [facility] [address] [id number] USAALP [Catalytic activity/Vol]69 U/BDxlsfg86-821Oxe [facility] Physician GroupComment on above:Performed By: #### PTT, FIB-C, PT #### [facility] [address] [place] [address] USAALT [Catalytic activity/Vol]47 U/LNormal7-52The [facility] Physician GroupComment on above:Performed By: #### PTT, FIB-C, PT #### [facility] [address] [place] [address] USAAnion gap [Moles/Vol]11.1 mmol/LNormal6.0-15.0The [facility] Physician GroupComment on above:Performed By: #### PTT, FIB-C, PT #### [facility] [address] [place] [address] USAAST [Catalytic activity/Vol]42 U/KYjef71-47Kju [facility] Physician GroupComment on above:Performed By: #### PTT, FIB-C, PT #### [facility] [address] [place] [address] USABilirubin [Mass/Vol]0.3 mg/dLNormal0.3-1.0The [facility] Physician GroupComment on above:Performed By: #### PTT, FIB-C, PT #### [facility] [address] [place] [address] USACalcium [Mass/Vol]7.5 mg/dLLow8.6-10.3The [facility] Physician GroupComment on above:Performed By: #### PTT, FIB-C, PT #### [facility] [address] [place] [id number] USAChloride [Moles/Vol]109 mmol/JBruz15-220Pdw [facility] Physician GroupComment on above:Performed By: #### PTT, FIB-C, PT #### [facility] [address] [place] [address] USACO2 [Moles/Vol]22.7 mmol/FQiambd11.0-31.0The [facility] Physician GroupComment on above:Performed By: #### PTT, FIB-C, PT #### [facility] [address] [place] [address] USACreatinine [Mass/Vol]1.07 mg/dLNormal0.70-1.30The [facility] Physician GroupComment on above:Performed By: #### PTT, FIB-C, PT #### [facility] [address] [place] [address] USACreatinine Clr Calc Qeeepinc88.69NormHealthPark Medical Center Physician GroupComment on above:Performed By: #### PTT, FIB-C, PT #### [facility] [address] [place] [address] USAGFR/1.73 sq M.predicted MDRD (S/P/Bld) [Vol rate/Area] mL/min/{1.73_m2}NormalThe [facility] Health Physician GroupComment on above:Performed By: #### PTT, FIB-C, PT #### [facility] [facility] [address] [place] [address] USAGlobulin (S) [Mass/Vol]1.7 g/dLNormWadsworth-Rittman Hospitale Atrium Health Physician GroupComment on above:Performed By: #### PTT, FIB-C, PT #### [facility] [address] [place] [address] USAGlucose [Mass/Vol]134 mg/qZScla04-601Jdn [facility] Health Physician GroupComment on above:Result Comment: Random Glucose Reference Range is dependent on time and content of last meal. Glucose of more than 200 mg/dL in a nonstressed, ambulatory subject supports the diagnosis of Diabetes Mellitus. ADA recommended reference rangePerformed By: #### PTT, FIB-C, PT #### [facility] [address] [place] [address] USAPotassium [Moles/Vol]3.8 mmol/LNormal3.5-5.1The [facility] Health Physician GroupComment on above:Performed By: #### PTT, FIB-C, PT #### [facility] [address] [place] [address] USAProtein [Mass/Vol]4.7 g/dLLow6.4-8.9The [facility] Health Physician GroupComment on above:Performed By: #### PTT, FIB-C, PT #### [facility] [address] [place] [address] USASodium [Moles/Vol]139 mmol/POcqlfl681-927Bej [place] Physician [facility] Watkins Memorial HospitalComment on above:Performed By: #### PTT, FIB-C, PT #### [facility] [address] [place] [address] USAUrea nitrogen [Mass/Vol]14 mg/dLNormal7-e [facility] Physician GroupComment on above:Performed By: #### PTT, FIB-C, PT #### [facility] [address] [place] [address] USAGlobulin Calc (S) [Mass/Vol]Ordered By: Loyda Carlos on 15-03-1289Uhozisjz (S) [Mass/Vol]Serum globulin measurement by calculation (mass/volume)[facility] ShawGlucose Poct Glucometerson 58-90-1116Eyrvuks [Mass/Vol]195 mg/dLNoNovant Health Physician H. C. Watkins Memorial HospitalComment on above:Result Comment: Random Glucose Reference Range is dependent on time and content of last meal. Glucose of more than 200 mg/dL in a nonstressed, ambulatory subject supports the diagnosis of Diabetes Mellitus. PERFORMED BY: [place] [address] PATH[employer] CONTROLS ENGINEER ALEX SALMERON M.D.Performed By: #### PTT, FIB-C, PT #### [place] [address] USAGlucose [Mass/Vol]171 mg/dLNoNovant Health Physician GroupComment on above:Result Comment: Random Glucose Reference Range is dependent on time and content of last meal. Glucose of more than 200 mg/dL in a nonstressed, ambulatory subject supports the diagnosis of Diabetes Mellitus. PERFORMED BY: [place] [address] PATH[employer]IST [employer] CONTROLS ENGINEER ALEX SALMERON M.D.Performed By: #### BMP, MG, CBC #### [address] [place] [address] USAGlucose [Mass/Vol]154 mg/dLNoNovant Health Physician GroupComment on above:Result Comment: Random Glucose Reference Range is dependent on time and content of last meal. Glucose of more than 200 mg/dL in a nonstressed, ambulatory subject supports the diagnosis of Diabetes Mellitus. PERFORMED BY: [place] [address] PATHOLOGIST [employer] CONTROLS ENGINEER ALEX SALMERON M.D.Performed By: #### BMP, MG, CBC #### [place] [address] USAGlucose [Mass/Vol]134 mg/dLNormHealthPark Medical Center Physician GroupComment on above:Result Comment: Random Glucose Reference Range is dependent on time and content of last meal. Glucose of more than 200 mg/dL in a nonstressed, ambulatory subject supports the diagnosis of Diabetes Mellitus. PERFORMED BY: [place] [id number] PATHOLOGIST [employer] CONTROLS ENGINEER ALEX SALMERON M.D.Performed By: #### BMP, MG, CBC #### [place] [id number] USAMagnesiumon 84-43-5920Pculamomm [Mass/Vol]1.7 mg/dLLow 1.9-2.7The At[facility] Health Physician GroupComment on above:Result Comment: PERFORMED BY: [place] [id number] PATHOLOGIST [employer] CONTROLS ENGINEER ALEX SALMERON M.D.Performed By: #### PTT, FIB-C, PT #### [place] [id number] USAPhosphate [Mass/volume] in Serum or PlasmaOrdered By: Loyda Carlos on 52-58-4772Mgqanlbrj [Mass/Vol]Phosphate [Mass/volume] in Serum or Plasma2.5-4.5FOhioHealth Nelsonville Health CenterPhosphoruson 10-12-2024 Phosphate [Mass/Vol]2.9 mg/dLNormal2.5-4.5The [facility] Health Physician GroupComment on above:Performed By: #### PTT, FIB-C, PT #### [facility] [address] [place] [address] USAProtein [Mass/volume] in Serum or PlasmaOrdered By: Loyda Calros on 94-81-7444Gkdqqnu [Mass/Vol]Protein [Mass/volume] in Serum or PlasmaLow6.4-8.9[facility] [place] [facility] Hospitalerum or plasma albumin/globulin mass ratioOrdered By: Loyda Carlos on 10-12-2024 Albumin/Globulin [Mass ratio]Serum or plasma albumin/globulin mass ratio [facility] ShawC reactive protein [Mass/volume] in Serum or PlasmaOrdered By: Loyda Carlos on 52-57-8401XNC [Mass/Vol]C reactive protein [Mass/volume] in Serum or PlasmaHigh0.0-0.5FOhioHealth Nelsonville Health CenterC- Reactive Proteinon 03-20-3093L-Reactive Protein2.5 mg/dLHigh0.0-0.5The [facility] Health Physician GroupComment on above:Result Comment: PERFORMED BY: [place] [address] PATHOLOGIST [employer] CONTROLS ENGINEER ALEX SALMERON M.D.Performed By: #### BMP, MG, CBC #### [place] [address] USACells analyzed [#]Ordered By: Loyda Carlos on 10-11-2024 Cells analyzed Molgen (Bld/Tiss) [#]Cells analyzed [#].[facility] ShawCells counted [#]Ordered By: Loyda Carlos on 73-41-7947Kfgla counted Molgen (Bld/Tiss) [#]Total cell count.[facility] Cells karyotyped.total [#] in Blood or TissueOrdered By: Loyda Carlos on 10-48-5186Rfsui karyotyped.total (Bld/Tiss) [#]Cells karyotyped.total [#] in Blood or Tissue.[facility], Edwin ShawChrom Leuk/Lymph Cells Analyzon 77-61-9344Qpghj Leuk/Lymph Cells Fdertg0Mqcbbk.The [facility] Comment on above:Performed By: #### PTT, FIB-C, PT #### [facility] [address] [place] [address] USAChrom Leuk/Lymph Cells Countedon 04-47-6995Avmek Leuk/Lymph Cells Tergtgz9Dtipaz.The [facility] Health Physician GroupComment on above: Performed By: #### PTT, FIB-C, PT #### [facility] [address] [place] [address] USAChrom Leuk/Lymph Cells Karotypon 14-12-0811Obcto Leuk/Lymph Cells Htvdhmw1Khbkep.The [facility] Health Physician GroupComment on above: Performed By: #### PTT, FIB-C, PT #### [place] [address] USAChrom Leuk/Lymph Cytogen Reson 97-09-1785Drbfg Leuk/Lymph Cytogen ResComment:Normal.The [facility] Health Physician GroupComment on above:Result Comment: NO MITOTIC ACTIVITYPerformed By: #### PTT, FIB-C, PT #### [place] [address] USAChrom Leuk/Lymph Dir Reviewon 16-64-0391Apark Leuk/Lymph Dir ReviewComment:Normal.The At[facility] Health Physician GroupComment on above:Result Comment: Jennie Marino, PhD, FACMG Performed at: [facility] [address] [facility], [place] [id number] Studio Operator: Felisha Rivera [facility], Phone: [phone] PERFORMED BY: [place] [address] PATHOLOGIST [employer] CONTROLS ENGINEER ALEX SALMERON M.D.Performed By: #### GLULS #### Point of Care testing ,Chrom Leuk/Lymph GTG Band Reson 53-95-8280Alruo Leuk/Lymph GTG Band ResN/A Normal.The [facility] Health Physician GroupComment on above:Performed By: #### PTT, FIB-C, PT #### [place] [address] USAChrom Leuk/Lymph Interpretaton 11-18-9380Reuut Leuk/Lymph InterpretatComment:Normal.The [facility] Health Physician GroupComment on above:Result Comment: NO [...] a whole genome SNP microarray (test code 697178) may be considered. The 1stdibs@Myeloid multi-gene genomic next generation sequencing panel (test code 963704) may also be considered. Testing can be performed on a residual sample, if available.Performed By: #### GLULS #### Point of Care testing ,Chromosome Leuk/Lymph Spec Tyon 67-40-1909Llvbgmvatz Leuk/Lymph Spec TyComment: Normal.The [facility] Physician [facility] Watkins Memorial HospitalComment on above:Result Comment: BLOOD Performed By: #### PTT, FIB-C, PT #### [place] [address] USAChromosome analysis result in ISCN expressionOrdered By: Loyda Carlos on 47-40-8869Eqb analysis result in ISCN expression Molgen Nom (Bld/Tiss)Chromosome analysis result in ISCN expression.[facility], [facility] ShawComment on above:NO MITOTIC ACTIVITYClinical fur machine operator [Identifier] in SpecimenOrdered By: Loyda Carlos on 76-96-8584Uflqjefx fur machine operator Nom (Unsp spec) [ID]Clinical fur machine operator [Identifier] in Specimen.[facility], Edwin ShawComment on above:Jennie Marino, PhD, FACMGPerformed at: [facility] [id number] [facility], [place] [address]Lab Director: Felisha Rivera [facility], Phone: [phone] Blood Count Auto Diffon 35-54-6488Hevlycnhp (Bld) [#/Vol]0.0 10*3/uLNormal0.0-0.2The [facility] Physician [facility] Watkins [facility] HospitalComment on above:Result Comment: PERFORMED BY: [place] [address] PATHOLOGIST PLC CONTROLS ENGINEER ALEX SALMERON M.D.Performed By: #### BMP, MG, CBC #### [place] [address] USABasophils/100 WBC (Bld)0.8 %Normal.The [facility] Health Physician GroupComment on above:Performed By: #### BMP, MG, CBC #### [place] [address] USAEosinophils (Bld) [#/Vol]0.0 10*3/uLNormal0.0-0.45The [facility] Health Physician GroupComment on above:Performed By: #### BMP, MG, CBC #### [place] [address] USAEosinophils/100 WBC (Bld)1.1 %Normal.The [facility] Health Physician GroupComment on above:Performed By: #### BMP, MG, CBC #### [place] [address] USAErythrocyte distribution width (RBC) [Ratio]13.3 %Normal 12.0-14.8The [facility] Health Physician GroupComment on above:Performed By: #### BMP, MG, CBC #### [place] [address] USAHematocrit (Bld) [Volume fraction]33.2 %Low38.8-50.0The [facility] Health Physician GroupComment on above:Performed By: #### BMP, MG, CBC #### [place] [address] USAHemoglobin (Bld) [Mass/Vol]11.6 g/dLLow13.0-17.0The [facility] Health Physician GroupComment on above:Performed By: #### BMP, MG, CBC #### [place] [address] USALymphocytes (Bld) [#/Vol]0.6 10*3/uLLow1.00-4.8The [facility] Health Physician GroupComment on above:Performed By: #### BMP, MG, CBC #### [address] [place] [address] USALymphocytes/100 WBC (Bld)22.0 %Normal.The [facility] Health Physician GroupComment on above:Performed By: #### BMP, MG, CBC #### [facility] [address] [place] [address] USAMCH (RBC) [Entitic mass]33.7 zxHtcotp49.5-35.2The [facility] Health Physician GroupComment on above:Performed By: #### BMP, MG, CBC #### [facility] [address] [place] [address] USAMCV (RBC) [Entitic vol]96.6 iJJdkkiz05.5-101The [facility] Health Physician GroupComment on above:Performed By: #### BMP, MG, CBC #### [place] [address] USAMean Corpuscular HGB Conc34.9 g/dOZeqzza12.5-35.6The [facility] Health Physician GroupComment on above:Performed By: #### BMP, MG, CBC #### [place] [address] USAMonocytes (Bld) [#/Vol]0.3 10*3/uLNormal0.0-0.8The [facility] Health Physician GroupComment on above:Performed By: #### BMP, MG, CBC #### [place] [address] USAMonocytes/100 WBC (Bld)11.4 %Normal.The [facility] Health Physician GroupComment on above:Performed By: #### BMP, MG, CBC #### [place] [address] USANeutrophils (Bld) [#/Vol]1.8 10*3/uLNormal1.8-7.7The [facility] Health Physician GroupComment on above:Performed By: #### BMP, MG, CBC #### [place] [address] USANeutrophils/100 WBC (Bld)64.7 %Normal.The [facility] Health Physician GroupComment on above:Performed By: #### BMP, MG, CBC #### [facility] [address] [place] [address] USANRBC%0.1 /100{WBC}Normal0-0.5The [facility] Comment on above:Performed By: #### BMP, MG, CBC #### [place] [address] USAPlatelet mean volume (Bld) [Entitic vol]8.0 fLNormal 6.6-10.1The [facility] Health Physician GroupComment on above:Performed By: #### BMP, MG, CBC #### [place] [address] USAPlatelets (Bld) [#/Vol]73 10*3/fWHsq722-594Wwt [facility] Health Physician GroupComment on above:Performed By: #### BMP, MG, CBC #### [place] [address] USARBC (Bld) [#/Vol]3.44 10*6/uLLow3.90-5.60The [facility] Health Physician GroupComment on above:Performed By: #### BMP, MG, CBC #### [place] [address] USAWBC (Bld) [#/Vol]2.8 10*3/uLLow4.1-10.5The [facility] Health Physician GroupComment on above:Performed By: #### BMP, MG, CBC #### [place] [address] USAComprehensive Metabolic Panelon 29-83-4637Uasmkrr [Mass/Vol]3.0 g/dLLow3.5-5.7The [facility] Health Physician GroupComment on above: Performed By: #### BMP, MG, CBC #### [place] [address] USAAlbumin/Globulin [Mass ratio]1.6 {ratio}NormalThe Atrium Health Physician GroupComment on above:Performed By: #### BMP, MG, CBC #### [place] [address] USAALP [Catalytic activity/Vol]48 U/KQmwcrn43-284Hjn [facility] Health Physician GroupComment on above:Performed By: #### BMP, MG, CBC #### [facility] [address] [place] [address] USAALT [Catalytic activity/Vol]29 U/LNormal7-52The [facility] Health Physician GroupComment on above:Performed By: #### BMP, MG, CBC #### [facility] [address] [place] [address] USAAnion gap [Moles/Vol]6.7 mmol/LNormal6.0-15.0The [facility] Health Physician GroupComment on above:Performed By: #### BMP, MG, CBC #### [facility] [address] [place] [address] USAAST [Catalytic activity/Vol]42 U/BJeaa97-70Mhz [facility] Health Physician GroupComment on above:Performed By: #### BMP, MG, CBC #### [facility] [address] [place] [address] USABilirubin [Mass/Vol]0.3 mg/dLNormal0.3-1.0The [facility] Health Physician GroupComment on above:Performed By: #### BMP, MG, CBC #### [place] [address] USACalcium [Mass/Vol]7.5 mg/dLLow8.6-10.3The [facility] Health Physician GroupComment on above:Performed By: #### BMP, MG, CBC #### [facility] [address] [place] [address] USAChloride [Moles/Vol]113 mmol/KHult37-848Otl [facility] Health Physician GroupComment on above:Performed By: #### BMP, MG, CBC #### [facility] [address] [place] [address] USACO2 [Moles/Vol]23.2 mmol/JUxveni62.0-31.0The [facility] Health Physician GroupComment on above:Performed By: #### BMP, MG, CBC #### [facility] [address] [place] [address] USACreatinine [Mass/Vol]1.16 mg/dLNormal0.70-1.30The [facility] Health Physician GroupComment on above:Performed By: #### BMP, MG, CBC #### [facility] [address] [place] [address] USACreatinine Clr Calc Lmmujrlc32.83NoNovant Health Physician GroupComment on above:Performed By: #### BMP, MG, CBC #### [facility] [address] [place] [address] USAGFR/1.73 sq M.predicted MDRD (S/P/Bld) [Vol rate/Area] mL/min/{1.73_m2}NormalThe Atrium Health Physician GroupComment on above:Performed By: #### BMP, MG, CBC #### [facility] [address] [place] [address] USAGlobulin (S) [Mass/Vol]1.9 g/dLNoNovant Health Physician GroupComment on above:Performed By: #### BMP, MG, CBC #### [place] [address] USAGlucose [Mass/Vol]106 mg/sADhjn99-515Jfx [facility] Physician GroupComment on above:Result Comment: Random Glucose Reference Range is dependent on time and content of last meal. Glucose of more than 200 mg/dL in a nonstressed, ambulatory subject supports the diagnosis of Diabetes Mellitus. ADA recommended reference rangePerformed By: #### BMP, MG, CBC #### [place] [address] USAPotassium [Moles/Vol]3.9 mmol/LNormal3.5-5.1The [facility] Health Physician GroupComment on above:Performed By: #### BMP, MG, CBC #### [place] [address] USAProtein [Mass/Vol]4.9 g/dLLow6.4-8.9The [facility] Health Physician GroupComment on above:Performed By: #### BMP, MG, CBC #### [place] [address] USASodium [Moles/Vol]139 mmol/UWizgqs622-443Sud Saint [facility] Vianney HospitalComment on above:Performed By: #### BMP, MG, CBC #### [facility] [address] [place] [id number] USAUrea nitrogen [Mass/Vol]12 mg/dLNormal7-25The [facility] Health Physician GroupComment on above:Performed By: #### BMP, MG, CBC #### [facility] [address] [place] [id number] USACopperon 31-09-3902Urqytb42 ug/aNKjhwab39-819OtxWinston Medical CenterComment on above:Result Comment: This test was developed and its performance characteristics determined by [employer]. It has not been cleared or approved by the Food and Drug Administration. Detection Limit = 5 Performed at: [facility] [id number] Studio Operator: Yadira Gallegos MD, Phone: [phone] By: #### PTT, FIB- C, PT #### [facility] [address] [place] [address] USACopper measurementOrdered By: Angelo Iglesias on 10-11-2024 Basophil percentageBasophil zfkxcawxvy49-140FiohkaiylSelect Medical [facility] Comment on above:This test was developed and its performance characteristicsdetermined by [employer]. It has not been cleared orapproved by the Food and Drug Administration. Detection Limit = 5Performed at: [facility] [id number] Director: Yadira Gallegos MD, Phone: [phone] impression [Interpretation] in Specimen NarrativeOrdered By: Loyda Carlos on 99-48-8837Ykqxrcytjx impression Molgen Yovany (Unsp spec) [Interp]Diagnostic impression [Interpretation] in Specimen Narrative .[facility] Hospital, Edwin ShawComment on above:NO RESULT Cytogenetic analysis of GTG banded metaphases fromunstimulated cultures revealed no mitotic activity. Thesample submitted appeared to be blood. Generally, 5% blastsin the peripheral circulation are necessary to obtaincytogenetic results. Bone marrow is recommended for theanalysis of disorders with blasts below that percentage. Interphase FISH analysis using indication specifictargeted probes or a whole genome SNP microarray (test [id number]) may be considered. The 1stdibs@Myeloid multi-genegenomic next generation sequencing panel (test code 127516)may also be considered. Testing can be performed on aresidual sample, if available.Erythrocyte Sedimentation Rateon 87-03-8149FFD (Bld) [Velocity]14 mm/hNormal0-19The [facility] Health Physician GroupComment on above:Result Comment: PERFORMED BY: [place] [address] PATHOLOGIST PLC CONTROLS ENGINEER ALEX SALMERON M.D.Performed By: #### PTT, FIB-C, PT #### [place] [address] USAErythrocyte sedimentation rate by Photometric method Ordered By: Loyda Carlos on 98-95-8811QRB Photometric method (Bld) [Velocity] Erythrocyte sedimentation rate by Photometric method0-[facility] Hospital, [facility] ShawFerritinon 34-21-5391Iepozwgv [Mass/Vol]131.0 ng/mLNormal 23.9-336.2The [facility] Physician [facility] HospitalComment on above:Order Comment: Comment addPerformed By: #### PTT, FIB-C, PT #### [place] [id number] USAFerritin [Mass/volume] in Serum or PlasmaOrdered By: Loyda Carlos on 00-61-3209Cnhkulsa [Mass/Vol]Ferritin [Mass/volume] in Serum or Olxhnm18.9-336.2FOhioHealth Nelsonville Health CenterFibrinogenon 10-11-2024 Gkxbiqtnyy257 mg/eYIvqpej277-342Ucm [facility] Physician GroupComment on above: Result Comment: A hematocrit value greater than 55% may lead to inaccurate results in coagulation testing. Patients having hematocrit values >55% require a special collection tube for coagulation studies. Please contact the laboratory at [phone] for redraw instructions. PERFORMED BY: [address] [address] PATHOLOGIST PLC CONTROLS ENGINEER ALEX SALMERON M.D.Performed By: #### PTT, FIB-C, PT #### [facility] [address] [place] [address] USAFibrinogen [Mass/volume] in Platelet poor plasma by Coagulation assayOrdered By: Angelo Iglesias on 88-53-2214Vxjmylqckt Coag (PPP) [Mass/Vol]Fibrinogen [Mass/volume] in Platelet poor plasma by Coagulation assay 200-393[facility], Edwin ShawComment on above:A hematocrit value greater than 55% may lead to inaccurate results in coagulation testing. Patients having hematocrit values >55% require a special collection tube for coagulation studies. Please contact the laboratory at [phone] for redraw instructions. Folate [Mass/volume] in Serum or PlasmaOrdered By: Loyda Carlos on 10-11-2024 Folate [Mass/Vol]Folate [Mass/volume] in Serum or Plasma>5.9[facility], Edwin ShawComment on above:Folate reference range: >5.9 ng/mlThe WHO technical consultation on folate and vitamin y24shdjncwalapd has determined that folate concentrations lessthan 4 ng/ml are considered deficient.Glucose Poct Glucometerson 98-55-1936Msbibgf [Mass/Vol]200 mg/dLHCA Florida Pasadena Hospital Physician GroupComment on above:Result Comment: Random Glucose Reference Range is dependent on time and content of last meal. Glucose of more than 200 mg/dL in a nonstressed, ambulatory subject supports the diagnosis of Diabetes Mellitus. PERFORMED BY: [place] [address] PATHOLOGIST [employer] CONTROLS ENGINEER ALEX SALMERON M.D.Performed By: #### PTT, FIB-C, PT #### [facility] [address] [place] [address] IPJSempiuz4Dpg3: Cleaned MeterNoNovant Health Physician GroupComment on above:Result Comment: PERFORMED BY: [facility] [address] [place] [address] PATHOLOGIST PLC CONTROLS ENGINEER ALEX SALMERON M.D.Performed By: #### GLULS #### Point of Care testing ,Glucose [Mass/Vol]134 mg/dLNoNovant Health Physician GroupComment on above: Result Comment: Random Glucose Reference Range is dependent on time and content of last meal. Glucose of more than 200 mg/dL in a nonstressed, ambulatory subject supports the diagnosis of Diabetes Mellitus.Performed By: #### GLULS #### Point of Care testing ,Glucose [Mass/Vol]147 mg/dLNoNovant Health Physician GroupComment on above: Result Comment: Random Glucose Reference Range is dependent on time and content of last meal. Glucose of more than 200 mg/dL in a nonstressed, ambulatory subject supports the diagnosis of Diabetes Mellitus. PERFORMED BY: [place] [address] PATHOLOGIST [employer] CONTROLS ENGINEER ALEX SALMERON M.D.Performed By: #### BMP, MG, CBC #### [place] [address] USAHCV Antibody Cascadeon 24-34-7438Rsjbemzfu C Virus AntibodyNon-ReactiveNormalNon ReactiveThe Saint [facility]ianney HospitalComment on above:Performed By: #### PTT, FIB-C, PT #### [place] [address] USAInterpretation Hepatitis CCommentNormal.The [facility] Health Physician GroupComment on above:Result Comment: Not infected with HCV unless early or acute infection is suspected (which may be delayed in an immunocompromised individual), or other evidence exists to indicate HCV infection. Performed at: - [facility] [id number] Studio Operator: Juan José Butler PhD, Phone: [phone] PERFORMED BY: [place] [address] PATHOLOGIST PLC CONTROLS ENGINEER ALEX SALMERON M.D.Performed By: #### PTT, FIB-C, PT #### [place] [address] USAHIV 1/O/2 Antigen/Antibodyon 38-00-8684QYW Screen 4th GenerationNon-ReactiveNormalNon ReactiveThe Atrium Health Physician GroupComment on above:Result Comment: HIV-1/HIV-2 antibodies and HIV-1 p24 antigen were NOT detected. There is no laboratory evidence of HIV infection. HIV Negative Performed at: [address] [id number] Studio Operator: Juan José uBtler PhD, Phone: [phone] PERFORMED BY: [place] [address] PATHOLOGIST PLC CONTROLS ENGINEER ALEX SALMERON M.D.Performed By: #### PTT, FIB-C, PT #### [facility] [address] [place] [address] USAHIV antibody and antigen panelOrdered By: Angelo Iglesias on 92-34-9045GKD 1+2 Ab+HIV1 p24 Ag IA QlHIV 1 and HIV-2 antibody assay with HIV-1 p24 antigen detectionNon Brown Memorial HospitalComment on above:HIV-1/HIV-2 antibodies and HIV-1 p24 antigen were NOTdetected. There is no laboratory evidence of HIV infection.HIV NegativePerformed at: [address] [id number] Director: Juan José Butler PhD, Phone: [phone] B Core Antibodyon 13-79-1900Afckrubwl B Core AntibodyNegativeNormalNegativeHca Florida Suwannee Emergency Physician [facility] HospitalComment on above: Performed By: #### PTT, FIB-C, PT #### [facility] [address] [place], [place] [address] USAHepatitis B Core Antibody IgMon 98-97-1946Paxnxcsfz B Core Antibody IgMNegativeNormalNegativeHca Florida Suwannee Emergency Physician GroupComment on above:Result Comment: Performed at: [address] [id number] Studio Operator: Juan José Butler PhD, Phone: [phone] By: #### PTT, FIB-C, PT #### [address] [address] USAHepatitis B Surface Antibodyon 66-51-2807Huuatyldj B Surface AntibodyNon-ReactiveNormal.The Atrium Health Physician GroupComment on above:Result Comment: Non Reactive: Not immune to HBV infection. Equivocal: Unable to determine if anti-HBs is present at levels consistent with immunity. Reactive: Anti-HBs concentration detected at greater than 10 mIU/mL. Individual is considered to be immune to infection with HBV.Performed By: #### PTT, FIB-C, PT #### [facility] [address] [place] [address] USAHepatitis B Surface Antigenon 06-25-3979WFeVv Screen NegativeNormalNegativeThe [facility] Physician [facility] Watkins Memorial HospitalComment on above:Result Comment: PERFORMED BY: [place] [address] PATHOLOGIST [employer] CONTROLS ENGINEER ALEX SALMERON M.D.Performed By: #### PTT, FIB-C, PT #### [place] [address] USAHepatitis B virus core IgM antibody assayOrdered By: Angelo Iglesias on 44-04-5243Sixnhbcng B Core IgM AntibodyNegativeNegativeSelect Medical Cleveland Clinic Rehabilitation Hospital, Edwin ShawComment on above:Performed at: [facility] [place] [id number] Director: Juan José Butler PhD, Phone: [phone] B virus core antibody assayOrdered By: Angelo Iglesias on 80-93-5617Kmfysznbq B Core Total AntibodyNegativeNegativeSelect Medical Cleveland Clinic Rehabilitation Hospital, Edwin ShawHepatitis C virus IgG Ab [Presence] in Serum or Plasma by ImmunoassayOrdered By: Angelo Iglesias on 73-41-5863AON IgG IA QlHepatitis C virus IgG Ab [Presence] in Serum or Plasma by ImmunoassayNon ReactiveSelect Medical Cleveland Clinic Rehabilitation Hospital, Edwin ShawINR in Platelet poor plasma by Coagulation assayOrdered By: Angelo Iglesias on 93-90-9840ZVF Coag (PPP) [Relative time]INR in Platelet poor plasma by Coagulation assaySelect Medical Cleveland Clinic Rehabilitation Hospital, Edwin ShawComment on above:INR Therapeutic Range A) Pre- and [...] level [#] QualitativeOrdered By: Loyda Carlos on 56-10-9342UCSG band level Molgen Ql (Bld/Tiss)ISCN band level [#] Qualitative. [facility] Hospital, Edwin ShawIron [Mass/volume] in Serum or PlasmaOrdered By: Loyda Carlos on 21-07-2102Jgwg [Mass/Vol]Iron [Mass/volume] in Serum or Kzylky93-896MtmmyzehoSelect Medical Cleveland Clinic Rehabilitation Hospital, Edwin ShawIron and TIBC Profileon 10-11-2024% Iron Atsletsmgp88.2 %Dqkuht28-08Spf [facility] Physician GroupComment on above: Order Comment: Comment addPerformed By: #### PTT, FIB-C, PT #### [facility] [address] [place] [address] USAIron [Mass/Vol]118 ug/aZIwujye42-325Omc [facility] Physician GroupComment on above:Order Comment: Comment addPerformed By: #### PTT, FIB-C, PT #### [facility] [address] [place] [address] USATotal Iron Binding Wqdhkffs128 ug/eJBiwbgd805-318Ysy [facility] Physician GroupComment on above:Order Comment: Comment addPerformed By: #### PTT, FIB-C, PT #### [facility] [address] [place] [address] USATransferrin [Mass/Vol]191 mg/rNVyl207-411Xyq [facility] Physician GroupComment on above:Order Comment: Comment addPerformed By: #### PTT, FIB-C, PT #### [facility] [address] [place] [id number] USAKaryotype identification (nominal result)Ordered By: Loyda Carlos on 88-72-3352Jhmpksyyj Nom (Unsp spec)Karyotype identification nominalSelect Medical Cleveland Clinic Rehabilitation Hospital, Edwin ShawLD Lactate Dehydrogenaseon 10-11-2024 LDH Lactate Yrwghcgyxluat949 U/SLdnjvu647-213Nrj [facility] Comment on above:Order Comment: Comment addPerformed By: #### PTT, FIB-C, PT #### [address] [address] USALactate dehydrogenase [Enzymatic activity/volume] in Serum or Plasma by Lactate to pyOrdered By: Loyda Carlos on 25-97-1823WZW Lactate to pyruvate reaction [Catalytic activity/Vol]Lactate dehydrogenase [Enzymatic activity/volume] in Serum or Plasma by Lactate to gc613-870WruuliozfSelect Medical Cleveland Clinic Rehabilitation Hospital, Edwin ShawMagnesiumon 33-18-5448Iouymqjfb [Mass/Vol]1.7 mg/dLLow1.9-2.7The [facility] Health Physician GroupComment on above:Result Comment: PERFORMED BY: [place] [id number] PATHOLOGIST PLC CONTROLS ENGINEER ALEX SALMERON M.D.Performed By: #### BMP, MG, CBC #### [place] [id number] USANo Panel InformationOrdered By: Angelo Iglesias on 64-08-6228Knxtrldav C InterpretationComment.[facility] Comment on above:Not infected with HCV unless early or acute infection issuspected (which may be delayed in an immunocompromisedindividual), or other evidence exists to indicate HCVinfection.Performed at: CB - [facility] [address] [id number] Director: Juan José Butler PhD, Phone: [phone] Thromboplastin Timeon 59-44-6339lYAR Coag (Bld) [Time]27.9 s Isomhh54.1-36.5The At[facility] Health Physician GroupComment on above:Result Comment: A hematocrit value greater than 55% may lead to inaccurate results in coagulation testing. Patients having hematocrit values >55% require a special collection tube for coagulation studies. Please contact the laboratory at [phone] for redraw instructions.Performed By: #### PTT, FIB-C, PT #### [place] [id number] USAProthrombin Time INRon 58-23-8304JYN Coag (PPP) [Relative time]0.9 {INR}NormalThe Atrium Health Physician GroupComment on above:Result Comment: INR [...] 4.5Performed By: #### PTT, FIB-C, PT #### [facility] [address] [place] [address] USAPT Coag (PPP) [Time]9.9 sNormal9.0-12.9The [facility] Health Physician GroupComment on above:Result Comment: A hematocrit value greater than 55% may lead to inaccurate results in coagulation testing. Patients having hematocrit values >55% require a special collection tube for coagulation studies. Please contact the laboratory at [phone] for redraw instructions.Performed By: #### PTT, FIB-C, PT #### [facility] [address] [place] [address] USAProthrombin time (PT)Ordered By: Angelo Iglesias on 53-26-8464KW Coag (PPP) [Time]Prothrombin time (PT)9.0-12.9[facility] Hospital, Edwin ShawComment on above:A hematocrit value greater than 55% may lead to inaccurate results in coagulation testing. Patientshaving hematocrit values >55% require a special collection tube for coagulation studies. Please contact the laboratory at [phone] for redraw instructions.Reticulocyte Counton 62-83-8439Dcjldwcelscd Number0.035 10*6/uLNormal0.024-0.084The [facility] Health Physician GroupComment on above:Performed By: #### PTT, FIB-C, PT #### [facility] [address] [place] [address] USAReticulocyte Percent0.9 %Normal0.5-1.5The [facility] Health Physician GroupComment on above:Performed By: #### PTT, FIB-C, PT #### [facility] [address] [place] [address] USAReticulocytes [#/volume] in BloodOrdered By: Loyda Carlos on 70-81-6734Tvmzllahmrjxl (Bld) [#/Vol]Absolute reticulocyte count0.024-0.084 [facility] Hospital, Edwin ShawReticulocytes/100 RBC Auto (Bld)Ordered By: Loyda Carlos on 99-13-8429Qyexqlhuhyoub/100 RBC (Bld)Reticulocyte % auto0.5-1.5 [facility] [place] [facility] Hospitalerum hepatitis B virus surface antibody detectionOrdered By: Angelo Iglesias on 75-72-2684KPQ surface Ab Ql (S)Hepatitis B virus surface Ab [Presence] in Serum.[facility], [facility] ShawComment on above:Non Reactive: Not immune to HBV [...] Ag [Presence] in Serum or Plasma by ImmunoassayNegativePremier Health [place] Valley Hospitalerum or plasma iron binding capacity measurement (mass/volume)Ordered By: Loyda Carlos on 10-11-2024 Iron binding capacity [Mass/Vol]Iron binding capacity [Mass/volume] in Serum or Onmaum911-623XkclqssoyPremier Health [place] Valley Hospitalerum or plasma iron saturation measurement (mass fraction)Ordered By: Loyda Carlos on 55-16-0674Ispx saturation [Mass fraction]Iron saturation [Mass Fraction] in Serum or Pakbbo00-24GfyeculgiPremier Health [place] Valley Hospitalpecimen source identifiedOrdered By: Loyda Carlos on 31-14-1185Omqhszfa source Nom (Unsp spec)Specimen source identified.[facility], Edwin ShawComment on above:BLOODThyroid Stimulating Hormoneon 03-12-9673SSY Qn1.83 m[IU]/LNormal0.45-5.33The [facility] Health Physician GroupComment on above:Order Comment: Comment addResult Comment: PERFORMED BY: [place] [address] PATHOLOGIST [employer] CONTROLS ENGINEER ALEX SALMERON M.D.Performed By: #### PTT, FIB-C, PT #### [facility] [address] [place], [place] [id number] USAThyrotropin [Units/volume] in Serum or PlasmaOrdered By: Loyda Carlos on 91-59-3509ZUP QnThyrotropin [Units/volume] in Serum or Plasma 0.45-5.33[facility], Edwin ShawTransferrin [Mass/volume] in Serum or PlasmaOrdered By: Loyda Carlos on 78-16-0675Kguymhrhgnw [Mass/Vol]Transferrin [Mass/volume] in Serum or CownizFwi973-647CjyckkcaaSelect Medical Cleveland Clinic Rehabilitation Hospital, Edwin ShawVit. B12/Folate Profileon 63-48-5016Lecsnhbxj (Vitamin B12) [Mass/Vol]542 pg/mLNormal 180-914The [facility] Health Physician GroupComment on above:Order Comment: Comment add Performed By: #### PTT, FIB-C, PT #### [facility] [address] [place], [place] [address] IXKYjusof68.0 ng/mLNormal>5.9The [facility] Comment on above:Order Comment: Comment addResult Comment: Folate reference range: >5.9 ng/ml The WHO technical consultation on folate and vitamin b12 deficiencies has determined that folate concentrations less than 4 ng/ml are considered deficient.Performed By: #### PTT, FIB-C, PT #### [facility] [address] [place], [place] [address] USAVitamin B12 ser/plasOrdered By: Loyda Carlos on 10-11-2024 Cobalamin (Vitamin B12) [Mass/Vol]Vitamin B12 ser/ibfp317-196XwdaijipnSelect Medical Cleveland Clinic Rehabilitation Hospital, Edwin ShawaPTT in Platelet poor plasma by Coagulation assayOrdered By: Angelo Iglesias on 72-69-6757pIOM Coag (PPP) [Time]Activated partial thromboplastin time (aPTT) in platelet poor plasma by coagulation a25.1-36.5FOhioHealth Nelsonville Health CenterComment on above:A hematocrit value greater than 55% may lead to inaccurate results in coagulation testing. Patientshaving hematocrit values >55% require a special collection tube for coagulation studies. Please contact the laboratory at [phone] for redraw instructions.Anisocytosis LM Ql (Bld) Ordered By: Loyda Carlos on 57-54-0899Mmhiaapucoot Ql (Bld)Anisocytosis [Presence] in Blood by Light microscopySelect Medical Cleveland Clinic Rehabilitation Hospital, Edwin ShawCampy coli+jejuni BD MaxOrdered By: Lakesha Haskins on 10-10-2024. coli+jejuni tuf gene ABE+probe Ql (Stl)Campy coli+jejuni BD MaxNegativeSelect Medical Cleveland Clinic Rehabilitation Hospital, Edwin ShawComment on above:Campylobacter test includes C. jejuni and C. coli. Chloride [Moles/volume] in StoolOrdered By: Loyda Carlos on 25-22-4203Kirhioiw (Stl) [Moles/Vol]Chloride [Moles/volume] in Stool.[facility], Edwin ShawComment on above:INTERPRETIVE INFORMATION: Fecal ChlorideA reference interval has not been established for fecal specimens.This test was developed and its performance characteristicsdetermined by [facility]. It has not been cleared orapproved by the [place] Food and Drug Administration. This test wasperformed in a CLIA certified laboratory and is intended forclinical purposes.Performed at: [place] [facility] [address] [id number] Director: [facility], Phone: [phone] Comprehensive Metabolic Panelon 17-31-8499Ygcletx [Mass/Vol]2.9 g/dLLow3.5-5.7 The [facility] Health Physician GroupComment on above:Performed By: #### GLULS #### Point of Care testing ,Albumin/Globulin [Mass ratio]1.5 {ratio}NormalThe [facility] Group Comment on above:Performed By: #### GLULS #### Point of Care testing ,ALP [Catalytic activity/Vol]48 U/WVodopr81-384Npi [facility] Comment on above:Performed By: #### GLULS #### Point of Care testing ,ALT [Catalytic activity/Vol]26 U/LNormal7-52The [facility] Comment on above:Performed By: #### GLULS #### Point of Care testing ,Anion gap [Moles/Vol]7.2 mmol/LNormal6.0-15.0The [facility] Comment on above:Performed By: #### GLULS #### Point of Care testing ,AST [Catalytic activity/Vol]52 U/JMqdb52-27Pna [facility] GroupComment on above:Performed By: #### GLULS #### Point of Care testing ,Bilirubin [Mass/Vol]0.2 mg/dLLow0.3-1.0The [facility] Health Physician GroupComment on above:Performed By: #### GLULS #### Point of Care testing ,Calcium [Mass/Vol]7.4 mg/dLLow8.6-10.3The [facility] Health Physician GroupComment on above:Performed By: #### GLULS #### Point of Care testing ,Chloride [Moles/Vol]115 mmol/SMdff32-513Gql [facility] Physician GroupComment on above:Performed By: #### GLULS #### Point of Care testing ,CO2 [Moles/Vol]19.4 mmol/LLow21.0-31.0The [facility] Health Physician GroupComment on above:Performed By: #### GLULS #### Point of Care testing ,Creatinine [Mass/Vol]1.33 mg/dLSignificant change up0.70-1.30The [facility] Health Physician GroupComment on above:Performed By: #### GLULS #### Point of Care testing ,Creatinine Clr Calc Lpuambsk08.57NoParkwood Hospital GroupComment on above:Performed By: #### GLULS #### Point of Care testing ,Estimated GFR52.056 mL/MinNoParkwood Hospital GroupComment on above: Performed By: #### GLULS #### Point of Care testing ,Globulin (S) [Mass/Vol]1.9 g/dLNoParkwood Hospital GroupComment on above:Performed By: #### GLULS #### Point of Care testing ,Glucose [Mass/Vol]105 mg/pJTtnl36-165Sxb [facility] Physician GroupComment on above:Result Comment: Random Glucose Reference Range is dependent on time and content of last meal. Glucose of more than 200 mg/dL in a nonstressed, ambulatory subject supports the diagnosis of Diabetes Mellitus. ADA recommended reference rangePerformed By: #### GLULS #### Point of Care testing ,Potassium [Moles/Vol]3.6 mmol/LNormal3.5-5.1The [facility] Comment on above:Performed By: #### GLULS #### Point of Care testing ,Protein [Mass/Vol]4.8 g/dLLow6.4-8.9The [facility] Health Physician GroupComment on above:Performed By: #### GLULS #### Point of Care testing ,Sodium [Moles/Vol]138 mmol/AAykaqj638-129Cal [facility]. Watkins Memorial HospitalComment on above:Performed By: #### GLULS #### Point of Care testing ,Urea nitrogen [Mass/Vol]21 mg/dLNormal7-25The [facility] Health Physician GroupComment on above:Performed By: #### GLULS #### Point of Care testing ,Cryptosporidium Antigen Stoolon 78-81-1973Oaqosddlypznfkp Antigen StoolNegative NormalNegativeThe Saint John Vianney HospitalComment on above:Order Comment: SOURCE OF SPECIMEN: StoolResult Comment: Performed at: [address] [id number] Studio Operator: Juan José Butler PhD, Phone: [phone] By: #### BMP, MG, CBC #### [place] [address] USACryptosporidium parv+homin BD MaxOrdered By: Loyda Carlos on 10-10-2024. parvum+hominis DNA ABE+probe Ql (Stl)Cryptosporidium parv+homin BD MaxNegativeSelect Medical Cleveland Clinic Rehabilitation Hospital, Edwin ShawComment on above:Cryptosporidium test includes C. hominis and C. parvum.Cryptosporidium sp Ag [Presence] in Stool by ImmunoassayOrdered By: Loyda Carlos on 98-04-9751Meguzqdbtirmrjl sp Ag IA Ql (Stl)Cryptosporidium sp Ag [Presence] in Stool by ImmunoassayNegativeSelect Medical Cleveland Clinic Rehabilitation Hospital, Edwin ShawComment on above:Performed at: [facility] [employer] [address] [place], [place] [id number] Director: Juan José Butler PhD, Phone: [phone] histolytica BD MaxOrdered By: Loyda Carlos on 10-10-2024E. histolytica DNA ABE+probe Ql (Stl)Entamoeba histolytica BD MaxNegTriHealth Bethesda Butler HospitalComment on above:Testing performed by RT-PCRErythrocyte morphology finding [Identifier] in BloodOrdered By: Loyda Carlos on 10-10-2024 RBC morphology finding Nom (Bld)RBC morphologySelect Medical Cleveland Clinic Rehabilitation Hospital, Edwin Shaw Giardia Lamblia Ag EIA Stoolon 22-99-7631Picihjd Lamblia Ag EIA StoolNegative NormalNegativeHca Florida Suwannee Emergency Physician GroupComment on above:Order Comment: SOURCE OF SPECIMEN: StoolResult Comment: Performed at: [place] [id number] [place], [place] [id number] Studio Operator: Juan José Butler PhD, Phone: [phone] PERFORMED BY: [place] [address] PATHOLOGIST [employer] CONTROLS ENGINEER ALEX SALMERON M.D.Performed By: #### BMP, MG, CBC #### [place] [address] USAGiardia milian BD MaxOrdered By: Loyda Carlos on 10-10-2024G. lamblia DNA ABE+probe Ql (Stl)Giardia milian BD MaxNegTriHealth Bethesda Butler HospitalGiardia lamblia Ag [Presence] in Stool by ImmunoassayOrdered By: Loyda Carlos on 10-10-2024G. lamblia Ag IA Ql (Stl)Giardia lamblia Ag [Presence] in Stool by ImmunoassayNegTriHealth Bethesda Butler HospitalComment on above:Performed at: [address] [id number] Director: Juan José Butler PhD, Phone: [phone] Poct Glucometerson 78-87-4024Iuouwwe [Mass/Vol]134 mg/dLNormHealthPark Medical Center Physician GroupComment on above:Result Comment: Random Glucose Reference Range is dependent on time and content of last meal. Glucose of more than 200 mg/dL in a nonstressed, ambulatory subject supports the diagnosis of Diabetes Mellitus. PERFORMED BY: [place] [address] PATHOLOGIST [employer] CONTROLS ENGINEER ALEX SALMERON M.D.Performed By: #### BMP, MG, CBC #### [place] [address] IWMRmvxeiu7Luh5: Cleaned MeterNoNovant Health Physician GroupComment on above:Result Comment: PERFORMED BY: [place] [address] PATHOLOGIST [employer] CONTROLS ENGINEER ALEX SALMERON M.D.Performed By: #### GLULS #### Point of Care testing ,Glucose [Mass/Vol]138 mg/dLHCA Florida Pasadena Hospital Physician GroupComment on above: Result Comment: Random Glucose Reference Range is dependent on time and content of last meal. Glucose of more than 200 mg/dL in a nonstressed, ambulatory subject supports the diagnosis of Diabetes Mellitus.Performed By: #### GLULS #### Point of Care testing ,Dpxgzdw6Ohu0: Cleaned MeterNoNovant Health Physician GroupComment on above: Result Comment: PERFORMED BY: [place] [address] PATHOLOGIST PLC CONTROLS ENGINEER ALEX SALMERON M.D.Performed By: #### GLULS #### Point of Care testing ,Glucose [Mass/Vol]146 mg/dLHCA Florida Pasadena Hospital Physician GroupComment on above: Result Comment: Random Glucose Reference Range is dependent on time and content of last meal. Glucose of more than 200 mg/dL in a nonstressed, ambulatory subject supports the diagnosis of Diabetes Mellitus.Performed By: #### GLULS #### Point of Care testing ,Glucose [Mass/Vol]99 mg/dLHCA Florida Pasadena Hospital Physician GroupComment on above: Result Comment: Random Glucose Reference Range is dependent on time and content of last meal. Glucose of more than 200 mg/dL in a nonstressed, ambulatory subject supports the diagnosis of Diabetes Mellitus. PERFORMED BY: [place] [address] PATHOLOGIST [employer] CONTROLS ENGINEER ALEX SALMERON M.D.Performed By: #### GLULS #### Point of Care testing ,Iron and TIBC Profileon 10-10-2024% Iron Gfmlwovora14.1 %Wnw83-24Stv [facility] Physician GroupComment on above:Performed By: #### GLULS #### Point of Care testing ,Iron [Mass/Vol]29 ug/fIDpw70-094Wgm [facility] Watkins [facility] HospitalComment on above: Performed By: #### GLULS #### Point of Care testing ,Total Iron Binding Zcygnnuq168 ug/lAJts360-796Vfe [facility] Comment on above:Performed By: #### GLULS #### Point of Care testing ,Transferrin [Mass/Vol]147 mg/gEMrp663-773Xjd [facility] Physician GroupComment on above:Performed By: #### GLULS #### Point of Care testing ,Magnesiumon 56-84-4950Movwvqvpt [Mass/Vol]1.8 mg/dLLow1.9-2.7The [facility] Physician GroupComment on above:Result Comment: PERFORMED BY: [place] [address] PATHOLOGIST [employer] CONTROLS ENGINEER ALEX SALMERON M.D.Performed By: #### GLULS #### Point of Care testing ,Ova and Parasite Panelon 43-30-0513Phrhgpomsdnunra (C.hominis+parNegativeNormal NegativeThe [facility] Health Physician GroupComment on above:Result Comment: Cryptosporidium test includes C. hominis and C. parvum.Performed By: #### BMP, MG, CBC #### [place] [address] USAEntamoeba histolyticaNegativeNormalNegativeThe [facility] Health Physician GroupComment on above:Result Comment: Testing performed by RT-PCR PERFORMED BY: [place] [address] PATHOLOGIST [employer] CONTROLS ENGINEER ALEX SALMERON M.D.Performed By: #### BMP, MG, CBC #### [facility] [address] [place] [id number] USAGiardia lambliaNegativeNormalNegativeThe [facility] Health Physician GroupComment on above:Performed By: #### BMP, MG, CBC #### [facility] [address] [place] [address] USAOvalocytes [Presence] in Blood by Light microscopyOrdered By: Loyda Carlos on 76-98-6221Sorqryarva LM Ql (Bld)Ovalocyte detectionSelect Medical Cleveland Clinic Rehabilitation Hospital, Edwin ShawPhosphoruson 26-89-8556Fnnzlzbed [Mass/Vol]2.4 mg/dLLow 2.5-4.5The [facility] Physician GroupComment on above:Performed By: #### GLULS #### Point of Care testing ,Platelet adequacy [Presence] in Blood by Light microscopyOrdered By: Loyda Carlos on 61-48-7618Goxfxxfyt LM Ql (Bld)Platelet adequacy [Presence] in Blood by Light microscopyNormalSelect Medical Cleveland Clinic Rehabilitation Hospital, Edwin ShawPlatelet morphology finding [Identifier] in BloodOrdered By: Loyda Carlos on 25-02-9941Fracveyj morphology finding Nom (Bld)Platelet morphology finding [Identifier] in Blood NormalSelect Medical Cleveland Clinic Rehabilitation Hospital, Edwin ShawPoikilocytosis [Presence] in Blood by Light microscopyOrdered By: Loyda Carlos on 69-18-4034Vwqxgadbfojyhx LM Ql (Bld) Poikilocytosis [Presence] in Blood by Light microscopySelect Medical Cleveland Clinic Rehabilitation Hospital, Edwin ShawPotassium [Moles/volume] in StoolOrdered By: Loyda Carlos on 10-10-2024 Potassium (Stl) [Moles/Vol]Potassium [Moles/volume] in Stool.[facility], Edwin ShawComment on above:INTERPRETIVE INFORMATION: Fecal PotassiumA reference interval has not been established for fecal specimens.This test was developed and its performance characteristicsdetermined by [facility]. It has not been cleared orapproved by the [place] Food and Drug Administration. This test wasperformed olga CLIA certified laboratory and is intended forclinical purposes.Salmonellosis BD MaxOrdered By: Lakesha Haskins on 95-29-9368Hizpidtwbt sp spaO gene ABE+probe Ql (Stl)Salmonella sp spaO gene [Presence] in Stool by ABE with probe detectionNegativeSelect Medical Cleveland Clinic Rehabilitation Hospital, Edwin ShawComment on above: Testing performed by RT-PCRScan and CBCon 90-82-2598Cesenerwexxr Ql (Bld)Slight NormalThe [facility]rium Health Physician GroupComment on above:Performed By: #### GLULS #### Point of Care testing ,Basophils (Bld) [#/Vol]0.0 10*3/uLNormal0.0-0.2The [facility] Comment on above:Performed By: #### GLULS #### Point of Care testing ,Basophils/100 WBC (Bld)0.6 %Normal.The [facility] Health Physician GroupComment on above:Performed By: #### GLULS #### Point of Care testing ,Eosinophils (Bld) [#/Vol]0.0 10*3/uLNormal0.0-0.45The [facility] Comment on above:Performed By: #### GLULS #### Point of Care testing ,Eosinophils/100 WBC (Bld)0.5 %Normal.The [facility] Physician GroupComment on above:Performed By: #### GLULS #### Point of Care testing ,Erythrocyte distribution width (RBC) [Ratio]13.7 %Lctyrq54.0-14.8The [facility] Health Physician GroupComment on above:Performed By: #### GLULS #### Point of Care testing ,Hematocrit (Bld) [Volume fraction]32.9 %Low38.8-50.0The [facility] Physician GroupComment on above:Performed By: #### GLULS #### Point of Care testing ,Hemoglobin (Bld) [Mass/Vol]11.4 g/dLLow13.0-17.0The [facility] Comment on above:Performed By: #### GLULS #### Point of Care testing ,Lymphocytes (Bld) [#/Vol]0.5 10*3/uLLow1.00-4.8The [facility] Comment on above:Performed By: #### GLULS #### Point of Care testing ,Lymphocytes/100 WBC (Bld)11.5 %Normal.The Atrium Health Physician GroupComment on above:Performed By: #### GLULS #### Point of Care testing ,MCH (RBC) [Entitic mass]34.0 qcOiswwn67.5-35.2[facility] Comment on above:Performed By: #### GLULS #### Point of Care testing ,MCV (RBC) [Entitic vol]97.8 tMKqsaji05.5-101[facility] Comment on above:Performed By: #### GLULS #### Point of Care testing ,Mean Corpuscular HGB Conc34.8 g/wOUoheek69.5-35.6[facility] Comment on above:Performed By: #### GLULS #### Point of Care testing ,Monocytes (Bld) [#/Vol]0.8 10*3/uLNormal0.0-0.8[facility] Comment on above:Performed By: #### GLULS #### Point of Care testing ,Monocytes/100 WBC (Bld)18.2 %Normal.The [facility] Physician GroupComment on above:Performed By: #### GLULS #### Point of Care testing ,Neutrophils (Bld) [#/Vol]3.2 10*3/uLNormal1.8-7.7[facility] Comment on above:Performed By: #### GLULS #### Point of Care testing ,Neutrophils/100 WBC (Bld)69.2 %Normal.The [facility] Physician GroupComment on above:Performed By: #### GLULS #### Point of Care testing ,NRBC%0.1 /100{WBC}Normal0-0.5The [facility] Physician GroupComment on above: Performed By: #### GLULS #### Point of Care testing ,OvalocytesSlightNormHealthPark Medical Center Physician GroupComment on above:Performed By: #### GLULS #### Point of Care testing ,Platelet EstimateDecreasedNormalNormHealthPark Medical Center Physician GroupComment on above:Performed By: #### GLULS #### Point of Care testing ,Platelet mean volume (Bld) [Entitic vol]8.3 fLNormal6.6-10.1The [facility] Physician GroupComment on above:Performed By: #### GLULS #### Point of Care testing ,Platelet MorphologyNormalNormalHCA Florida Pasadena Hospital Physician GroupComment on above:Result Comment: PERFORMED BY: [facility] [place] [address] PATHOLOGIST [employer] CONTROLS ENGINEER ALEX SALMERON M.D.Performed By: #### GLULS #### Point of Care testing ,Platelets (Bld) [#/Vol]71 10*3/uLSignificant change eykr278-658Hlp [facility] Physician GroupComment on above:Performed By: #### GLULS #### Point of Care testing ,PoikilocytosisSlightHCA Florida Pasadena Hospital Physician GroupComment on above: Performed By: #### GLULS #### Point of Care testing ,RBC (Bld) [#/Vol]3.37 10*6/uLLow3.90-5.60The [facility] Physician GroupComment on above:Performed By: #### GLULS #### Point of Care testing ,Toxic VacuolationSlightHCA Florida Pasadena Hospital Physician GroupComment on above: Performed By: #### GLULS #### Point of Care testing ,WBC (Bld) [#/Vol]4.6 10*3/uLNormal4.1-10.5The [facility] Physician GroupComment on above:Performed By: #### GLULS #### Point of Care testing ,Shigella Tox 1+2 BD MaxOrdered By: Lakesha Haskins on 10-10-2024E. coli stx1+stx2 genes ABE+probe Ql (Stl)Escherichia coli Stx1 and Stx2 toxin stx1+stx2 genes [Presence] in Stool by ABE withNegativeSelect Medical [facility] Clinic [facility] Shigellosis BD MaxOrdered By: Lakesha Haskins on 69-26-2516Himwvqfv species+EIEC invasion plasmid antigen H ipaH gene ABE+probe Ql (Stl)Shigella species+EIEC invasion plasmid antigen H ipaH gene [Presence] in Stool by NAANegativeSelect Medical Cleveland Clinic Rehabilitation Hospital, Edwin ShawComment on above:Shigella sp. test includes Shigella species and Enteroinvasive E. coli (EIEC).Sodium [Moles/volume] in StoolOrdered By: Loyda Carlos on 76-51-1793Lnbuky (Stl) [Moles/Vol]Sodium [Moles/volume] in Stool.[facility], [facility] ShawComment on above:INTERPRETIVE INFORMATION: Fecal SodiumA reference interval has not been established for fecal specimens.This test was developed and its performance characteristicsdetermined by [facility]. It has not been cleared orapproved by the [place] Food and Drug Administration. This test wasperformed in a CLIA certified laboratory and is intended forclinical purposes.Stool Bacterial Panelon 40-32-9613Dewfoedvfzzkx NegativeNormalNegativeThe [facility] Physician GroupComment on above:Result Comment: Campylobacter test includes C. jejuni and C. coli.Performed By: #### GLULS #### Point of Care testing ,Salmonella SpeciesNegativeNormalNegativeThe [facility] Physician GroupComment on above:Result Comment: Testing performed by RT-PCR PERFORMED BY: [facility] [address] [facility] [address] PATHOLOGIST PLC CONTROLS ENGINEER ALEX SALMERON M.D.Performed By: #### GLULS #### Point of Care testing ,Shiga Toxin (E coli O157+oth)NegativeNormalNegativeHca Florida Suwannee Emergency Physician GroupComment on above:Performed By: #### GLULS #### Point of Care testing ,Shigella SpeciesNegativeNormalNegativeThe [facility] Physician GroupComment on above:Result Comment: Shigella sp. test includes Shigella species and Enteroinvasive E. coli (EIEC).Performed By: #### GLULS #### Point of Care testing ,Stool Electrolyteson 82-70-3182Hyifjk Stool<20Normal.The [facility] Physician GroupComment on above:Result Comment: INTERPRETIVE INFORMATION: Fecal Sodium A reference interval has not been established for fecal specimens. This test was developed and its performance characteristics determined by [facility]. It has not been cleared or approved by the US Food and Drug Administration. This test was performed in a CLIA certified laboratory and is intended for clinical purposes.Performed By: #### BMP, MG, CBC #### [facility] [address] [place] [id number] USAStool Chloride<20Normal.[facility] Comment on above:Result Comment: INTERPRETIVE INFORMATION: Fecal Chloride A reference interval has not been established for fecal specimens. This test was developed and its performance characteristics determined by [facility]. It has not been cleared or approved by the US Food and Drug Administration. This test was performed in a CLIA certified laboratory and is intended for clinical purposes. Performed at: [place] [facility] [address] [id number] Studio Operator: Chang House [facility], Phone: [phone] By: #### PARADISE MG, CBC #### [place] [address] USAStool Zeahjxgtr87 mmol/LNormal.The [facility] Physician GroupComment on above:Result Comment: INTERPRETIVE INFORMATION: Fecal Potassium A reference interval has not been established for fecal specimens. This test was developed and its performance characteristics determined by [facility]. It has not been cleared or approved by the US Food and Drug Administration. This test was performed in a CLIA certified laboratory and is intended for clinical purposes. PERFORMED BY: [place] [address] PATHOLOGIST PLC CONTROLS ENGINEER ALEX SALMERON M.D.Performed By: #### BMP MG, CBC #### [place] [id number] USAThyroid Stimulating Hormoneon 62-24-0580APR Qn1.35 m[IU]/L Normal0.45-5.33The [facility] Physician GroupComment on above:Result Comment: PERFORMED BY: [place] [address] PATHOLOGIST PLC CONTROLS ENGINEER ALEX SALMERON M.D.Performed By: #### GLULS #### Point of Care testing ,Toxic leukocyte vacuolation detectionOrdered By: Loyda Carlos on 10-10-2024 Leukocyte toxic vacuoles LM Ql (Bld)Toxic leukocyte vacuolation detection [facility] Hospital, Edwin ShawVit. B12/Folate Profileon 52-81-5771Kkqmhttfh (Vitamin B12) [Mass/Vol]472 pg/pTInzlhf265-897Vxn [facility] Comment on above:Performed By: #### GLULS #### Point of Care testing ,Rnhfwo43.7 ng/mLNormal>5.9The [facility] Physician GroupComment on above:Result Comment: Folate reference range: >5.9 ng/ml The WHO technical consultation on folate and vitamin b12 deficiencies has determined that folate concentrations less than 4 ng/ml are considered deficient.Performed By: #### GLULS #### Point of Care testing ,A1C with Estimated Average Gluon 81-12-6777Hvyqsef [Mass/Vol]160 mg/dLNormalThe [facility] Physician GroupComment on above:Result Comment: PERFORMED BY: [place] [address] PATHOLOGIST PLC CONTROLS ENGINEER ALEX SALMERON M.D.Performed By: #### GLULS #### Point of Care testing ,HbA1c (Bld) [Mass fraction]7.2 %High4.3-5.6The [facility] Physician GroupComment on above:Result Comment: Increased risk for diabetes: 5.7 - 6.4 diabetes: >6.4 glycemic control for adults with diabetes: <7.0Performed By: #### GLULS #### Point of Care testing ,Blood estimated average glucose determination by estimation from glycated hemoglobinOrdered By: Lakesha Haskins on 30-59-7991Dtychun glucose Estimated from glycated hemoglobin (Bld) [Mass/Vol]Glucose mean value [Mass/volume] in Blood Estimated from glycated hemoglobinSelect Medical Cleveland Clinic Rehabilitation Hospital, Edwin ShawCT abdomen pelvis wo conon 26-20-3725XT abdomen pelvis wo [facility] [place] [address] CT Scan Report Signed Patient: Jose L Ames MR#: [id number] : 1940 Acct:[id number] Age/Sex: 84 / M ADM Date: 10/09/24 Loc: Room: [address] [place] [address] Type: ADM IN Attending Dr: Loyda Carlos [...] Pascual Harris M.D.10/09/2024 4:57 PM Dictation Location: [place] [address] Transcribed By: [facility] 10/09/24 1657 Dictated By: Pascual Harris DO 10/09/24 1645 Signed By: 10/09/24 [facility] Physician GroupClostridioides difficile toxin B tcdB gene [Presence] in Stool by ABE with probe deteOrdered By: Lakesha Haskins on 10-09-2024. difficile toxin B tcdB gene ABE+probe Ql (Stl)Clostridioides difficile toxin B tcdB gene [Presence] in Stool by ABE with probe deteNegative [facility], [facility] ShawComment on above:Testing performed by RT-PCR Clostridium Difficileon 98-14-3623Xvoiobcyhhy DifficileNegativeNormalNegativeThe [facility] Physician GroupComment on above:Order Comment: > or = to 3 loose/watery stools in the last 24 HRS? Y Is patient on promotility agents or tube feeding? NResult Comment: Testing performed by RT-PCR PERFORMED BY: [address] [place] [address] PATHOLOGIST PLC CONTROLS ENGINEER ALEX SALMERON M.D.Performed By: #### GLULS #### Point of Care testing ,Complete Blood Count Auto Diffon 72-26-5531Hpefdrvfm (Bld) [#/Vol]0.0 10*3/uL Normal0.0-0.2The [facility]ian[facility] HospitalComment on above:Result Comment: PERFORMED BY: [address] [place] [address] PATHOLOGIST PLC CONTROLS ENGINEER ALEX SALMERON M.D.Performed By: #### GLULS #### Point of Care testing ,Basophils/100 WBC (Bld)0.4 %Normal.The [facility] Physician GroupComment on above:Performed By: #### GLULS #### Point of Care testing ,Eosinophils (Bld) [#/Vol]0.1 10*3/uLNormal0.0-0.45[facility] Comment on above:Performed By: #### GLULS #### Point of Care testing ,Eosinophils/100 WBC (Bld)1.3 %Normal.The [facility] Physician GroupComment on above:Performed By: #### GLULS #### Point of Care testing ,Erythrocyte distribution width (RBC) [Ratio]13.9 %Prgnxk95.0-14.8The [facility] Physician GroupComment on above:Performed By: #### GLULS #### Point of Care testing ,Hematocrit (Bld) [Volume fraction]36.0 %Low38.8-50.0The [facility] Physician GroupComment on above:Performed By: #### GLULS #### Point of Care testing ,Hemoglobin (Bld) [Mass/Vol]12.5 g/dLLow13.0-17.0[facility] Comment on above:Performed By: #### GLULS #### Point of Care testing ,Lymphocytes (Bld) [#/Vol]0.4 10*3/uLLow1.00-4.8[facility] Comment on above:Performed By: #### GLULS #### Point of Care testing ,Lymphocytes/100 WBC (Bld)3.5 %Normal.The [facility] Physician GroupComment on above:Performed By: #### GLULS #### Point of Care testing ,MCH (RBC) [Entitic mass]33.9 dfAcvyze13.5-35.2[facility] Comment on above:Performed By: #### GLULS #### Point of Care testing ,MCV (RBC) [Entitic vol]97.8 mTCjkabd79.5-101[facility] Comment on above:Performed By: #### GLULS #### Point of Care testing ,Mean Corpuscular HGB Conc34.7 g/oQTvnovz39.5-35.6[facility] Comment on above:Performed By: #### GLULS #### Point of Care testing ,Monocytes (Bld) [#/Vol]1.0 10*3/uLHigh0.0-0.8[facility] Comment on above:Performed By: #### GLULS #### Point of Care testing ,Monocytes/100 WBC (Bld)8.9 %Normal.The [facility] Physician GroupComment on above:Performed By: #### GLULS #### Point of Care testing ,Neutrophils (Bld) [#/Vol]9.8 10*3/uLHigh1.8-7.7[facility] Comment on above:Performed By: #### GLULS #### Point of Care testing ,Neutrophils/100 WBC (Bld)85.9 %Normal.The [facility]ician GroupComment on above:Performed By: #### GLULS #### Point of Care testing ,NRBC%0.1 /100{WBC}Normal0-0.5The [facility] Physician GroupComment on above: Performed By: #### GLULS #### Point of Care testing ,Platelet mean volume (Bld) [Entitic vol]9.3 fLNormal6.6-10.1The [facility]ician GroupComment on above:Performed By: #### GLULS #### Point of Care testing ,Platelets (Bld) [#/Vol]102 10*3/rDLpj034-905Nzf [facility] Comment on above:Performed By: #### GLULS #### Point of Care testing ,RBC (Bld) [#/Vol]3.69 10*6/uLLow3.90-5.60The [facility] Physician GroupComment on above:Performed By: #### GLULS #### Point of Care testing ,WBC (Bld) [#/Vol]11.4 10*3/uLHigh4.1-10.5The [facility]ician GroupComment on above:Performed By: #### GLULS #### Point of Care testing ,Comprehensive Metabolic Panelon 43-02-3884Biiyqrk [Mass/Vol]3.3 g/dLLow3.5-5.7 The [facility] Physician GroupComment on above:Performed By: #### GLULS #### Point of Care testing ,Albumin/Globulin [Mass ratio]1.6 {ratio}NormalThe [facility] Comment on above:Performed By: #### GLULS #### Point of Care testing ,ALP [Catalytic activity/Vol]50 U/YGetpvk55-536Isl [facility] Comment on above:Performed By: #### GLULS #### Point of Care testing ,ALT [Catalytic activity/Vol]25 U/LNormal7-52The [facility] Comment on above:Performed By: #### GLULS #### Point of Care testing ,Anion gap [Moles/Vol]12.0 mmol/LNormal6.0-15.0[facility] Comment on above:Performed By: #### GLULS #### Point of Care testing ,AST [Catalytic activity/Vol]48 U/MPkhn72-71Kjp [facility]ician GroupComment on above:Performed By: #### GLULS #### Point of Care testing ,Bilirubin [Mass/Vol]0.4 mg/dLNormal0.3-1.0The [facility]ician GroupComment on above:Performed By: #### GLULS #### Point of Care testing ,Calcium [Mass/Vol]7.7 mg/dLLow8.6-10.3The [facility]ician GroupComment on above:Performed By: #### GLULS #### Point of Care testing ,Chloride [Moles/Vol]110 mmol/HMlvj21-178Hmx [facility]ician GroupComment on above:Performed By: #### GLULS #### Point of Care testing ,CO2 [Moles/Vol]22.5 mmol/XUosggj96.0-31.0The [facility] Physician GroupComment on above:Performed By: #### GLULS #### Point of Care testing ,Creatinine [Mass/Vol]2.23 mg/dLHigh0.70-1.30[facility] Comment on above:Performed By: #### GLULS #### Point of Care testing ,Creatinine Clr Calc Yfvgvzkn45.12[facility] GroupComment on above:Performed By: #### GLULS #### Point of Care testing ,Estimated GFR27.998 mL/MinNoParkwood Hospital GroupComment on above: Performed By: #### GLULS #### Point of Care testing ,Globulin (S) [Mass/Vol]2.1 g/dLRedington-Fairview General Hospital GroupComment on above:Performed By: #### GLULS #### Point of Care testing ,Glucose [Mass/Vol]185 mg/fJCegd59-371Yku [facility]ician GroupComment on above:Result Comment: Random Glucose Reference Range is dependent on time and content of last meal. Glucose of more than 200 mg/dL in a nonstressed, ambulatory subject supports the diagnosis of Diabetes Mellitus. ADA recommended reference rangePerformed By: #### GLULS #### Point of Care testing ,Potassium [Moles/Vol]4.5 mmol/LNormal3.5-5.1[facility] Comment on above:Performed By: #### GLULS #### Point of Care testing ,Protein [Mass/Vol]5.4 g/dLLow6.4-8.9The [facility] Physician GroupComment on above:Performed By: #### GLULS #### Point of Care testing ,Sodium [Moles/Vol]140 mmol/CTkrlvd088-053Ppg [facility]ician GroupComment on above:Performed By: #### GLULS #### Point of Care testing ,Urea nitrogen [Mass/Vol]37 mg/dLHigh7-25The [facility] Physician GroupComment on above:Performed By: #### GLULS #### Point of Care testing ,ECG 12 lead ECGon 48-36-9074LWN 12 lead ECGMERCY [facility] [place] [address] Electrocardiograph Report Signed Patient: Jose L Ames MR#: [id number] : 1940 Acct:[id number] Age/Sex: 84 / M ADM Date: 10/09/24 Loc: Room: [address] [place] [address] Type: ADM IN Attending Dr: Javier Murray [...] compared with ECG of 09-Oct-2024 19:38, (Unconfirmed) [place] interval has increased Confirmed by ISABEL DAUGHERTY [facility] ([facility] on 10/12/2024 6:24:02 PM Referred By: Electronically Signed By: VIET HALL MD [facility] Transcribed By: MUS Signed By Viet Hall MD, [facility] 10/12/[address] [place] [address] Physician GroupECG 12 lead ECGMERCY HEALTH URBANA [facility] Main [address] [address] Electrocardiograph Report Signed Patient: Jose L Ames MR#: [id number] : 1940 Acct:[id number] Age/Sex: 84 / M ADM Date: 10/09/24 Loc: Room: [address] [place] [address] Type: ADM IN Attending Dr: Javier Murray [...] axis shifted right Confirmed by ISABEL DAUGHERTY [facility] (137) on 10/12/2024 6:23:20 PM Referred By: Electronically Signed By: VIET HALL MD [facility] Transcribed By: MUS Signed By Viet Hall MD, [facility] 10/12/[address] [place] [address] Physician GroupECH echo transthoracicon 18-32-3391IAB echo transthoracicMERCY HEALTH URBANA HOSPITAL Main [address] [address] Echocardiogram Signed Patient: Jos eL Ames MR#: [id number] : 1940 Acct:[id number] Age/Sex: 84 / M ADM Date: 10/09/24 Loc: Room: [address] [place] [address] Type: ADM IN Attending Dr: Loyda Carlos MD Ordering Provider: Lakesha Haskins APRN Date of Service: 10/09/2403/26/500 [facility] echo transthoracic: syncope Copies to: MD Lakesha Mccullough, DRILLING MACHINE RUNNER BSA: 2.3 m2 BP: 105/56 mmHg HR: [...] 0901 Signed By: Liz Plata MD 10/09/24 1558NoNovant Health Physician GroupGlucose Poct Glucometerson 94-24-9385Ebbfkgt [Mass/Vol]137 mg/dLHCA Florida Pasadena Hospital Physician GroupComment on above:Result Comment: Random Glucose Reference Range is dependent on time and content of last meal. Glucose of more than 200 mg/dL in a nonstressed, ambulatory subject supports the diagnosis of Diabetes Mellitus. PERFORMED BY: [address] [address] PATHOLOGIST PLC CONTROLS ENGINEER ALEX SALMERON M.D.Performed By: #### GLULS #### Point of Care testing ,Glucose [Mass/Vol]133 mg/dLHCA Florida Pasadena Hospital Physician GroupComment on above: Result Comment: Random Glucose Reference Range is dependent on time and content of last meal. Glucose of more than 200 mg/dL in a nonstressed, ambulatory subject supports the diagnosis of Diabetes Mellitus. PERFORMED BY: [place] [id number] PATHOLOGIST PLC CONTROLS ENGINEER ALEX SALMERON M.D.Performed By: #### GLULS #### Point of Care testing ,Fgqcsdu5Lic8: Cleaned MeterNoNovant Health Physician GroupComment on above: Result Comment: PERFORMED BY: [address] [address] PATHOLOGIST PLC CONTROLS ENGINEER ALEX SALMERON M.D.Performed By: #### GLULS #### Point of Care testing ,Glucose [Mass/Vol]156 mg/dLHCA Florida Pasadena Hospital Physician GroupComment on above: Result Comment: Random Glucose Reference Range is dependent on time and content of last meal. Glucose of more than 200 mg/dL in a nonstressed, ambulatory subject supports the diagnosis of Diabetes Mellitus.Performed By: #### GLULS #### Point of Care testing ,Ejeahhy2Dui4: Cleaned MeterNormHealthPark Medical Center Physician GroupComment on above: Result Comment: PERFORMED BY: [place] [address] PATHOLOGIST PLC CONTROLS ENGINEER ALEX SALMERON M.D.Performed By: #### GLULS #### Point of Care testing ,Glucose [Mass/Vol]192 mg/dLHCA Florida Pasadena Hospital Physician GroupComment on above: Result Comment: Random Glucose Reference Range is dependent on time and content of last meal. Glucose of more than 200 mg/dL in a nonstressed, ambulatory subject supports the diagnosis of Diabetes Mellitus.Performed By: #### GLULS #### Point of Care testing ,Hemoglobin A1c/Hemoglobin.total in BloodOrdered By: Lakesha Haskins on 10-09-2024 HbA1c (Bld) [Mass fraction]Hemoglobin A1c percentageHigh4.3-5.6FOhioHealth Nelsonville Health CenterComment on above:Increased risk for diabetes: 5.7 - 6.4diabetes: >6.4glycemic control for adults with diabetes: <7.0Magnesiumon 29-22-4570Vkdorfhrh [Mass/Vol]1.9 mg/dLNormal1.9-2.7The [facility] Physician GroupComment on above:Performed By: #### GLULS #### Point of Care testing ,US carotid doppler BIon 60-13-7672NO carotid doppler [facility] Main [place] [id number] Ultrasound Report Signed Patient: Jose L Ames MR#: [id number] : 1940 Acct:[id number] Age/Sex: 84 / M ADM Date: 10/09/24 Loc: Room: 5Z3449-0 Type: ADM IN Attending Dr: Loyda Carlos MD Ordering Provider: Lakesha Haskins APRN Date of Service: 10/09/24 US/US carotid doppler BI: syncope Copies to: Mohamad Terrance, MD Lakesha G Haskins, DRILLING MACHINE RUNNER CAROTID DUPLEX INDICATION: Altered mental status, slurred [...] Dean Barnard MD10/09/2024 9:26 AM Dictation Location[facility] Tech: Sunita Box Transcribed By: KAYLEIGH 10/09/24925 Dictated By: Dean Barnard MD 10/09/24925 Signed By: 10/09/24 0926NormHealthPark Medical Center Physician GroupVitamin D 25 Hydroxy Totalon 83-49-6372Wqqummo D 25 Hydroxy Total56.5 ng/qLOvspyr57-405Yop [facility] HospitalComment on above:Result Comment: VITAMIN D STATUS 25(OH)VITAMIN D RANGE (ng/mL) Deficient <20 Insufficient 20 to <30 Sufficient 30 to 100 Reference: Ritu Devries, James SIMON et al. Evaluation,treatment, and prevention of vitamin D deficiency; an Endocrine Society clinical practice guideline. JCEM. 2010; 96(7):1911-30. PERFORMED BY: [place] [address] [place] [address] PATHOLOGIST PLC CONTROLS ENGINEER ALEX SALMERON M.D.Performed By: #### GLULS #### Point of Care testing ,Vitamin D+Metabolites [Mass/volume] in Serum or PlasmaOrdered By: Lakesha Haskins on 82-52-2977Wleagpm D+Metabolites [Mass/Vol]Vitamin D+Metabolites [Mass/volume] in Serum or Lmhfrz32-360VusfnnmwiSelect Medical Cleveland Clinic Rehabilitation Hospital, Edwin ShawComment on above: VITAMIN D STATUS 25(OH)VITAMIN D RANGE (ng/mL) Deficient <20 Insufficient 20 to <91Kwmdkzmhvm58 to 100Reference: Ritu Devries Bischoff-Ferrari HA, et al. Evaluation,treatment, and prevention of vitamin D deficiency; an Endocrine Society clinical practice guideline. JCEM. 2010; 96(7):1911-30.Basophils Auto (Bld) [#/Vol]on 72-43-5609Zpmnzrgmz (Bld) [#/Vol]Automated basophil count 0.0-0.1FOhioHealth Nelsonville Health CenterBasophils/100 WBC Auto (Bld)on 13-13-4985Mpnmccyxd/100 WBC (Bld)Automated basophil %Low0.2-2.0[facility] ShawEosinophils/100 WBC Auto (Bld)on 10-08-2024 Eosinophils/100 WBC (Bld)Automated eosinophil %Low0.9-7.0[facility] ShawErythrocyte distribution width Auto (RBC) [Ratio]on 10-08-2024 Erythrocyte distribution width (RBC) [Ratio]Erythrocyte distribution width [Ratio] by Automated count11.0-15.0[facility] ShawEstimated glomerular filtration rate (GFR) non- Americanon 94-97-0404MLX/1.73 sq M.predicted among non-blacks MDRD (S/P/Bld) [Vol rate/Area]Estimated glomerular filtration rate (GFR) non- AmericanLow>=60 mL/min/1.73m 2FOhioHealth Nelsonville Health CenterGlobulin Calc (S) [Mass/Vol]on 07-71-5592Daqcvrly (S) [Mass/Vol]Serum globulin measurement by calculation (mass/volume)[facility] ShawHematocrit Auto (Bld) [Volume fraction]on 10-08-2024 Hematocrit (Bld) [Volume fraction]Hematocrit [Volume Fraction] of Blood by Automated count42.0-54.0[facility] ShawHemoglobin [Mass/volume] in Bloodon 15-59-3360Jiiwgxmato (Bld) [Mass/Vol]Hemoglobin [Mass/volume] in Blood14.0-18.0[facility] ShawINR in Platelet poor plasma by Coagulation assayon 07-58-0229YKH Coag (PPP) [Relative time]INR in Platelet poor plasma by Coagulation assaySelect Medical [facility] Comment on above:DESIRED INR:2.0-3.0 CONDITIONS NOT LISTED BELOW2.5-3.5 FOR PROSTHETIC HEART VALVE REPLACEMENT2.5-3.5 RECURRENT THROMBOSISLaboratory - Chemistry and Chemistry - challengeon 31-90-4674Ymdgytv [Moles/Vol]0.7 mmol/L 0.4-2.0[facility] ShawBilirubin Ql (U)SMALLAbnormalNEGATIVE [facility] ShawGlucose (U) [Mass/Vol]NegativeNEGATIVESelect Medical [facility], [facility] ShawKetones Ql (U)TRACE mg/dLAbnormalNEGATIVESelect Medical [facility], [facility] ShawpH (U)5.5 [pH]5.0-9.0[facility] Specific gravity (U) [Rel density]>=1.688Jzzydbvf8.005-1.025[facility] ShawUrobilinogen Qn (U)0.2 {Zeb'U}/dL0.2-1.0[facility] ShawAlbumin [Mass/Vol]3.5 g/dL3.4-5.0[facility] ALP [Catalytic activity/Vol]84 U/A15-742LqgciptgbSelect Medical [facility], [facility] ShawALT [Catalytic activity/Vol]20 U/R04-80ZnhllgjqvSelect Medical [facility], [facility] ShawAST [Catalytic activity/Vol]17 U/N48-26EwqczwiysSelect Medical [facility], [facility] ShawBilirubin [Mass/Vol]0.7 mg/dL0.2-1.0[facility] ShawCalcium [Mass/Vol]8.2 mg/dLLow8.5-10.1FOhioHealth Nelsonville Health CenterChloride [Moles/Vol]102 mmol/L 98-107[facility] ShawCO2 [Moles/Vol]16.1 mmol/LLow21.0-32.0 [facility] ShawCreatinine [Mass/Vol]3.09 mg/dLHigh0.70-1.30 [facility] ShawGFR/1.73 sq M.predicted MDRD (S/P/Bld) [Vol rate/Area]23 mL/min/{1.73_m2}Low>=60 mL/min/1.73m 2FOhioHealth Nelsonville Health CenterGlucose [Mass/Vol]309 mg/vMWywl80-086FdwdbmimvSelect Medical [facility] Potassium [Moles/Vol]4.4 mmol/L3.5-5.1FOhioHealth Nelsonville Health CenterProtein [Mass/Vol]6.6 g/dL6.4-8.2FPeoples Hospitalodium [Moles/Vol]137 mmol/F520-824SjsuwufidSelect Medical [facility] Clinic [facility], [facility] ShawUrea nitrogen [Mass/Vol]43.0 mg/dL High7.0-18.0[facility] ShawUrea nitrogen/Creatinine [Mass ratio]13.9 mg/mgSelect Medical [facility], Edwin ShawLaboratory - Hematology and Cell countson 69-97-0446Indagsqj granulocytes/100 WBC (Bld)0.6 %High0.0-0.5 [facility] ShawLaboratory - Microbiology and Antimicrobial susceptibilityon 84-05-9845VJPV-CoV-2 (COVID-19) RNA ABE+probe Ql (Unsp spec) NegativeNEGATIVESelect Medical [facility], [facility] ShawComment on above:This test has not been FDA [...] authorization is revoked sooner.Laboratory - Specimen informationon 58-14-9683Ohapxfonss (U)[facility] GeneralColor (U)DK. YELLOWYELLOWSelect Medical [facility] Clinic Rehabilitation Hospital, Edwin ShawLaboratory - Urinalysison 22-37-7129Rhqywhcfc esterase Test strip Ql (U)NegativeNEGATIVESelect Medical [facility], [facility] ShawNitrite Ql (U) NegativeNEGATIVESelect Medical [facility] ShawProtein Ql (U)30 mg/dLAbnormal NEG/TRACESelect Medical [facility] Clinic [facility] Hospital, Edwin ShawLeukocytes [#/volume] corrected for nucleated erythrocytes in Blood by Automated counon 97-83-9650NPP corrected for nucl RBC Auto (Bld) [#/Vol]Leukocytes [#/volume] corrected for nucleated erythrocytes in Blood by Automated counHigh4.0-11.0[facility] ShawLymphocytes Auto (Bld) [#/Vol]on 49-49-6410Hmecztjefxk (Bld) [#/Vol] Lymphocytes [#/volume] in Blood by Automated countLow1.2-3.8[facility] ShawLymphocytes/100 WBC Auto (Bld)on 63-80-5677Quggiqiytlc/100 WBC (Bld)Lymphocytes/100 leukocytes in Blood by Automated mydgmFyi78.5-60.0[facility] CenterH Auto (RBC) [Entitic mass]on 75-18-7739JXF (RBC) [Entitic mass]MCH [Entitic mass] by Automated nweulUljy14.9-34.0[facility] CenterHC Auto (RBC) [Mass/Vol]on 45-74-1820EAIV (RBC) [Mass/Vol]MCHC [Mass/volume] by Automated count29.9-35.2FOhioHealth Nelsonville Health CenterMCV Auto (RBC) [Entitic vol]on 79-90-8863KEX (RBC) [Entitic vol] MCV [Entitic volume] by Automated oxhbbAsxy69.0-94.0[facility] ShawMonocytes Auto (Bld) [#/Vol]on 01-29-7961Neqkvwmcq (Bld) [#/Vol]Automated blood monocyte count0.3-0.8[facility] ShawMonocytes/100 WBC Auto (Bld)on 65-45-2644Mlnrdxyty/100 WBC (Bld)Automated monocyte %1.7-12.0 [facility] ShawNeutrophils Auto (Bld) [#/Vol]on 10-08-2024 Neutrophils (Bld) [#/Vol]Neutrophils [#/volume] in Blood by Automated countHigh 1.4-6.5FOhioHealth Nelsonville Health CenterNeutrophils/100 WBC Auto (Bld)on 78-19-9174Liqefrdcpky/100 WBC (Bld)Automated neutrophil %High43.0-75.0[facility] ShawNo Panel Informationon 27-22-4015Emyxl Microscopic Review Cherrington HospitalUrine Occult BloodNegativeNEGATIVESelect Medical [facility] ShawBedside Influenza Type A AntigenNegativeSelect [facility] ShawComment on above:Negative for Flu A protein antigen. Infection due to Flu Acannot be ruled out. Flu A antigen in thesample may bebelow the detection limit of the test.Bedside Influenza Type B AntigenNegative [facility] ShawComment on above:Negative for Flu B protein antigen. Infection due to Flu Bcannot be ruled out. Flu B antigen in thesample may bebelow the detection limit of the test.Eosinophils # (Auto)0.0 10 3/uL 0.0-0.7FOhioHealth Nelsonville Health CenterEthyl Alcohol Level<3 mg/dLSelect Medical [facility] Clinic [facility], [facility] ShawComment on above:NOTE: 80 mg/dl is the legal limit for a blood alcohol levelImmature Granulocyte # (Auto)0.11 10 3/uLHigh0.00-0.03 [facility] ShawTroponin I High Stsscvtxxbc12.7 pg/mL4.0-76.1 [facility] ShawComment on above:CUT-OFF POINTS HAVE BEEN ESTABLISHED BASED [...] INFORMATION.Platelet mean volume Auto (Bld) [Entitic vol]on 81-10-3910Ncrxdmos mean volume (Bld) [Entitic vol]Platelet mean volume [Entitic volume] in Blood by Automated count9.5-13.5 [facility] ShawPlatelets Auto (Bld) [#/Vol]on 10-08-2024 Platelets (Bld) [#/Vol]Platelets [#/volume] in Blood by Automated countLow 150-450[facility] ShawProthrombin time (PT)on 88-74-7647WN Coag (PPP) [Time]Prothrombin time (PT)9.0-11.6FOhioHealth Nelsonville Health Center RBC Auto (Bld) [#/Vol]on 23-25-3559VOX (Bld) [#/Vol]Erythrocytes [#/volume] in Blood by Automated countLow4.70-6.10[facility] Hospitalerum or plasma albumin/globulin mass ratioon 27-63-9402Zzpwvgc/Globulin [Mass ratio] Serum or plasma albumin/globulin mass ratioSelect Medical [facility] Clinic [facility], [facility] Shaw Serum or plasma anion gap determinationon 94-46-3669Hzdca gap [Moles/Vol]Serum or plasma anion gap determinationSelect Medical [facility] Clinic [facility], Edwin ShawProvider Letteron 10-52-5731Woszyngo LetterProvider Letter October 07, 2024 JOSE L AMES [address] [place] [phone] : 1940 Dear Mr. Ames, We have been trying to reach you with no success. You have an appointment with Dr Baez on October 14 on which will need to be rescheduled since his schedule has changed that day. We have options with his sugar laboratory assistant/nurse practitioner. Please contact the office at the number listed below to get thisappointment rescheduled at your earliest convenience. Thank you for your prompt attention to this matter. Call [phone] option3 as soon as possible to be rescheduled. Sincerely, [facility] ClinicBasophils Auto (Bld) [#/Vol]on 89-11-3589Cnjdhlnnv (Bld) [#/Vol]Automated basophil count 0.0-0.1FOhioHealth Nelsonville Health CenterBasophils/100 WBC Auto (Bld)on 69-52-1344Mawtgxkhs/100 WBC (Bld)Automated basophil %0.2-2.0[facility] ShawEosinophils/100 WBC Auto (Bld)on 07-59-6762Vmdwzwqiujn/100 WBC (Bld)Automated eosinophil %0.9-7.0[facility] ShawErythrocyte distribution width Auto (RBC) [Ratio]on 82-44-2023Kfqzaraizrx distribution width (RBC) [Ratio]Erythrocyte distribution width [Ratio] by Automated count11.0-15.0 [facility] ShawEstimated glomerular filtration rate (GFR) non- Americanon 66-90-0433FAN/1.73 sq M.predicted among non-blacks MDRD (S/P/Bld) [Vol rate/Area]Estimated glomerular filtration rate (GFR) non- AmericanLow>=60 mL/min/1.73m 2FOhioHealth Nelsonville Health CenterHematocrit Auto (Bld) [Volume fraction]on 49-05-2519Qfqzrxoqaw (Bld) [Volume fraction]Hematocrit [Volume Fraction] of Blood by Automated hdqdhWlw96.0-54.0[facility] ShawHemoglobin [Mass/volume] in Bloodon 81-34-2475Pvfgtiwcvr (Bld) [Mass/Vol]Hemoglobin [Mass/volume] in RqxsuEbi79.0-18.0[facility] ShawLaboratory - Chemistry and Chemistry - challengeon 10-06-2024 Calcium [Mass/Vol]8.8 mg/dL8.5-10.1FOhioHealth Nelsonville Health CenterChloride [Moles/Vol]104 mmol/K29-363WosytavpzSelect Medical [facility] Clinic Rehabilitation Hospital, [facility] ShawCO2 [Moles/Vol]29.9 mmol/L21.0-32.0[facility] ShawCreatinine [Mass/Vol]1.42 mg/dL High0.70-1.30[facility] ShawGFR/1.73 sq M.predicted MDRD (S/P/Bld) [Vol rate/Area]57 mL/min/{1.73_m2}Low>=60 mL/min/1.73m 2FOhioHealth Nelsonville Health CenterGlucose [Mass/Vol]147 mg/lEUugx52-236WcqizjoykSelect Medical [facility] ShawPotassium [Moles/Vol]4.6 mmol/L3.5-5.1FPeoples Hospitalodium [Moles/Vol]140 mmol/X220-778WluexldsiSelect Medical [facility] Clinic Rehabilitation Hospital, Edwin ShawUrea nitrogen [Mass/Vol]12.0 mg/dL7.0-18.0[facility] ShawUrea nitrogen/Creatinine [Mass ratio]8.5 mg/mgSelect Medical [facility] Laboratory - Hematology and Cell countson 16-26-6809Sijliyok granulocytes/100 WBC (Bld)0.5 %0.0-0.5FOhioHealth Nelsonville Health CenterLeukocytes [#/volume] corrected for nucleated erythrocytes in Blood by Automated counon 18-75-3734COJ corrected for nucl RBC Auto (Bld) [#/Vol]Leukocytes [#/volume] corrected for nucleated erythrocytes in Blood by Automated coun4.0-11.0[facility] ShawLymphocytes Auto (Bld) [#/Vol]on 56-21-7928Dypsgnqgrzq (Bld) [#/Vol]Lymphocytes [#/volume] in Blood by Automated countLow1.2-3.8[facility] ShawLymphocytes/100 WBC Auto (Bld)on 10-06-2024 Lymphocytes/100 WBC (Bld)Lymphocytes/100 leukocytes in Blood by Automated count 20.5-60.0[facility] CenterH Auto (RBC) [Entitic mass]on 54-12-9084CJA (RBC) [Entitic mass]MCH [Entitic mass] by Automated count25.9-34.0 [facility] ShawMCHC Auto (RBC) [Mass/Vol]on 74-76-9802SRZF (RBC) [Mass/Vol]MCHC [Mass/volume] by Automated count29.9-35.2FSumma Health Wadsworth - Rittman Medical CenterV Auto (RBC) [Entitic vol]on 46-96-2374QRO (RBC) [Entitic vol] MCV [Entitic volume] by Automated kjsdxWgmq84.0-94.0[facility] ShawMonocytes Auto (Bld) [#/Vol]on 41-30-1363Odvpvntmt (Bld) [#/Vol]Automated blood monocyte count0.3-0.8[facility] ShawMonocytes/100 WBC Auto (Bld)on 06-51-3148Nylijpygf/100 WBC (Bld)Automated monocyte %1.7-12.0 [facility] ShawNeutrophils Auto (Bld) [#/Vol]on 10-06-2024 Neutrophils (Bld) [#/Vol]Neutrophils [#/volume] in Blood by Automated count 1.4-6.5FOhioHealth Nelsonville Health CenterNeutrophils/100 WBC Auto (Bld)on 17-90-2719Qnspvltaggg/100 WBC (Bld)Automated neutrophil %43.0-75.0[facility] ShawNo Panel Informationon 31-73-9387Dqeemmzsirv # (Auto)0.1 10 3/uL0.0-0.7FOhioHealth Nelsonville Health CenterImmature Granulocyte # (Auto)0.02 10 3/uL0.00-0.03[facility] ShawPlatelet mean volume Auto (Bld) [Entitic vol]on 25-93-8196Zirbmcet mean volume (Bld) [Entitic vol]Platelet mean volume [Entitic volume] in Blood by Automated count9.5-13.5FOhioHealth Nelsonville Health CenterPlatelets Auto (Bld) [#/Vol]on 80-65-4006Kjhuhwvju (Bld) [#/Vol]Platelets [#/volume] in Blood by Automated oocbfJjo284-697QisqvgsoxSelect Medical [facility] Clinic Rehabilitation [facility], Edwin ShawRBC Auto (Bld) [#/Vol]on 80-77-0029KHQ (Bld) [#/Vol] Erythrocytes [#/volume] in Blood by Automated countLow4.70-6.10[facility] Hospitalerum or plasma anion gap determinationon 85-05-8680Vrunw gap [Moles/Vol]Serum or plasma anion gap determinationSelect Medical [facility] Clinic [facility], Edwin ShawBasophils Auto (Bld) [#/Vol]on 76-99-6547Tsyeefnod (Bld) [#/Vol] Automated basophil count0.0-0.1FOhioHealth Nelsonville Health CenterBasophils/100 WBC Auto (Bld)on 51-93-1835Cebvgyzsd/100 WBC (Bld)Automated basophil %0.2-2.0 [facility] ShawEosinophils/100 WBC Auto (Bld)on 07-16-2024 Eosinophils/100 WBC (Bld)Automated eosinophil %0.9-7.0[facility] ShawErythrocyte distribution width Auto (RBC) [Ratio]on 82-27-2249Mwjptzdfbcj distribution width (RBC) [Ratio]Erythrocyte distribution width [Ratio] by Automated count11.0-15.0[facility] ShawEstimated glomerular filtration rate (GFR) non- Americanon 35-59-2505WDI/1.73 sq M.predicted among non-blacks MDRD (S/P/Bld) [Vol rate/Area]Estimated glomerular filtration rate (GFR) non- AmericanLow>=60 mL/min/1.73m 2FOhioHealth Nelsonville Health CenterGlobulin Calc (S) [Mass/Vol]on 30-32-3284Idxvlitt (S) [Mass/Vol]Serum globulin measurement by calculation (mass/volume)[facility] ShawGlucose mean value [Mass/volume] in Blood Estimated from glycated hemoglobinon 13-42-6786Kcnwanc glucose Estimated from glycated hemoglobin (Bld) [Mass/Vol]Glucose mean value [Mass/volume] in Blood Estimated from glycated hemoglobinSelect Medical Cleveland Clinic Rehabilitation Hospital, Edwin ShawHematocrit Auto (Bld) [Volume fraction]on 74-67-4285Pvkoszuoop (Bld) [Volume fraction]Hematocrit [Volume Fraction] of Blood by Automated ruubjIcz10.0-54.0[facility] ShawHemoglobin [Mass/volume] in Bloodon 57-67-9643Kqwdadsudx (Bld) [Mass/Vol] Hemoglobin [Mass/volume] in ZaihqGpz62.0-18.0[facility] Laboratory - Chemistry and Chemistry - challengeon 17-64-9049Lxlknlr [Mass/Vol] 3.7 g/dL3.4-5.0[facility] ShawALP [Catalytic activity/Vol]116 U/L76-617RqrfqlptjSelect Medical [facility], [facility] ShawALT [Catalytic activity/Vol]24 U/L 16-63[facility] ShawAST [Catalytic activity/Vol]15 U/L15-37 [facility] ShawBilirubin [Mass/Vol]0.5 mg/dL0.2-1.0[facility] ShawCalcium [Mass/Vol]9.1 mg/dL8.5-10.1FOhioHealth Nelsonville Health CenterChloride [Moles/Vol]100 mmol/I82-911MutxfmsiaSelect Medical [facility] Clinic Rehabilitation Hospital, Edwin ShawCO2 [Moles/Vol]28.6 mmol/L21.0-32.0[facility] Creatinine [Mass/Vol]1.42 mg/dLHigh0.70-1.30[facility] GFR/1.73 sq M.predicted MDRD (S/P/Bld) [Vol rate/Area]57 mL/min/{1.73_m2}Low>=60 mL/min/1.73m 2FOhioHealth Nelsonville Health CenterGlucose [Mass/Vol]129 mg/dLHigh 74-106[facility] ShawPotassium [Moles/Vol]4.5 mmol/L3.5-5.1 [facility] ShawProtein [Mass/Vol]7.1 g/dL6.4-8.2FPeoples Hospitalodium [Moles/Vol]138 mmol/D987-478CgqpaykivSelect Medical [facility], Edwin ShawTSH Qn1.188 m[IU]/L0.358-3.740[facility] Urea nitrogen [Mass/Vol]16.0 mg/dL7.0-18.0[facility] ShawUrea nitrogen/Creatinine [Mass ratio]11.3 mg/mgSelect Medical [facility] Clinic [facility], [facility] Laboratory - Hematology and Cell countson 92-64-8379YrV8f (Bld) [Mass fraction] 6.4 %High4.5-6.2FOhioHealth Nelsonville Health CenterComment on above:ADA RECOMMENDED LIMIT 4.0 - 6.0ADA THERAPEUTIC TARGET < 7.0ACTION SUGGESTED> 7.0 Immature granulocytes/100 WBC (Bld)0.7 %High0.0-0.5FOhioHealth Nelsonville Health CenterLeukocytes [#/volume] corrected for nucleated erythrocytes in Blood by Automated counon 93-22-0866QSU corrected for nucl RBC Auto (Bld) [#/Vol] Leukocytes [#/volume] corrected for nucleated erythrocytes in Blood by Automated coun4.0-11.0[facility] ShawLymphocytes Auto (Bld) [#/Vol]on 99-92-3329Ekzskzkuaob (Bld) [#/Vol]Lymphocytes [#/volume] in Blood by Automated count1.2-3.8[facility] ShawLymphocytes/100 WBC Auto (Bld)on 55-13-8639Tpqzbciwyjz/100 WBC (Bld)Lymphocytes/100 leukocytes in Blood by Automated count20.5-60.0[facility] CenterH Auto (RBC) [Entitic mass]on 69-78-5771DWX (RBC) [Entitic mass]MCH [Entitic mass] by Automated count 25.9-34.0[facility] ShawMCHC Auto (RBC) [Mass/Vol]on 22-99-8682BTEB (RBC) [Mass/Vol]MCHC [Mass/volume] by Automated count29.9-35.2 [facility] CenterV Auto (RBC) [Entitic vol]on 62-00-2471XNY (RBC) [Entitic vol]MCV [Entitic volume] by Automated uksniCyuq69.0-94.0[facility] ShawMicroalbumin [Mass/volume] in Urineon 76-26-5445Inirxkj DL <= 20 mg/L (U) [Mass/Vol]Microalbumin [Mass/volume] in Urine<=30.0[facility] ShawMonocytes Auto (Bld) [#/Vol]on 74-28-6600Isaoxfcsq (Bld) [#/Vol]Automated blood monocyte count0.3-0.8[facility] Monocytes/100 WBC Auto (Bld)on 36-81-0908Qyuxqmygq/100 WBC (Bld)Automated monocyte %1.7-12.0[facility] ShawNeutrophils Auto (Bld) [#/Vol]on 05-31-2444Kkxbnbbgfxr (Bld) [#/Vol]Neutrophils [#/volume] in Blood by Automated count1.4-6.5FOhioHealth Nelsonville Health CenterNeutrophils/100 WBC Auto (Bld)on 57-30-9382Apkzskuaait/100 WBC (Bld)Automated neutrophil %43.0-75.0 [facility] ShawNo Panel Informationon 16-79-5967Canandnxlob # (Auto)0.1 10 3/uL0.0-0.7FOhioHealth Nelsonville Health CenterImmature Granulocyte # (Auto)0.04 10 3/uLHigh0.00-0.03[facility] ShawPlatelet mean volume Auto (Bld) [Entitic vol]on 19-64-2533Lvugtvma mean volume (Bld) [Entitic vol]Platelet mean volume [Entitic volume] in Blood by Automated count9.5-13.5 [facility] ShawPlatelets Auto (Bld) [#/Vol]on 07-16-2024 Platelets (Bld) [#/Vol]Platelets [#/volume] in Blood by Automated countLow 150-450[facility] ShawRBC Auto (Bld) [#/Vol]on 80-53-9761NLH (Bld) [#/Vol]Erythrocytes [#/volume] in Blood by Automated countLow4.70-6.10 [facility] Hospitalerum or plasma albumin/globulin mass ratioon 30-26-2902Mjmcjtk/Globulin [Mass ratio]Serum or plasma albumin/globulin mass ratioPremier Health Miami Valley Hospitalerum or plasma anion gap determinationon 29-81-0400Vrajz gap [Moles/Vol]Serum or plasma anion gap determinationSelect Medical [facility] Clinic [facility], Edwin ShawAmbulatory Visit Summaryon 06-34-6500Ndfhpmqzvx Visit SummaryAmbulatory Visit Summary JOSE L AMES [...] A BAEZ MD Where: [facility] [address], [address] [place] [address]- You Need to Schedule the Following Appointments Follow Up with LORRAINE DAUGHERTY, JOSE CARLOS Barnett When: Where: [address] [facility] [address] [place] [phone]- Medications What How Much When Instructions New oxybutynin (oxybutynin 5 mg Tab) 1 Tablets By Mouth At bedtime Refills: 11 Take 30 min prior tobedtime. Pickup at [facility]/pharmacy #[id number] Unchanged ascorbic acid 500 Milligram Unchanged [...] physician if questions or concerns Pharmacy Information [facility]/pharmacy #[id number]: [address], [place] [id number] [phone] What How Much When Comments Stop Taking [...] incontinence Urinary frequency Urinary (more content not included)...[facility] HospitalUrology Office/Clinic Noteon 51-57-4868Hfouvfh Office/Clinic NoteUrology Office/Clinic Note Chief Complaint 2 [...] with voice recognition artificial intelligence software, specifically [employer], [employer] and or [employer]. Substitutions may have occurred due to the [...] MD, URL [address] [address]- Additional Instructions: 6 mos w/ PVR Patient Education Overactive Bladder, Adult I, Alisson Saeed, personally scribed for Dr. Baez on 04/15/2024 13:33:48. . Documentation recorded by the scribe, Alisson Seaed, accurately reflects the services(s) I performed and [...] Pneumonia Radial nerve p (more content not included)...[facility] Comment on above:Result Comment: Electronically Signed By: Carlos A BAEZ MD\.br\Date and Time Signed: 04/15/24 13:39 EDT\.br\Electronically Co-Signed By: Alisson Saeed\.br\Date and Time Co-Signed: 04/15/24 13:35 EDT\.br\Electronically Co-Signed By: Alisson Saeed\.br\Date and Time Co- Signed: 04/15/2413:36 EDTBasophils Auto (Bld) [#/Vol]on 86-45-4958Uupgwvyyq (Bld) [#/Vol]0.0 10 3/uL0.0-0.1FOhioHealth Nelsonville Health CenterBasophils/100 WBC Auto (Bld)on 40-75-7760Hjsbgyhor/100 WBC (Bld)0.9 %0.2-2.0[facility] ShawEosinophils/100 WBC Auto (Bld)on 27-31-6050Tdfdosxifmm/100 WBC (Bld)0.7 %Low0.9-7.0[facility] ShawErythrocyte distribution width Auto (RBC) [Ratio]on 55-13-5490Sjcwsdsyolp distribution width (RBC) [Ratio]12.8 %11.0-15.0[facility] ShawEstimated glomerular filtration rate (GFR) non- Americanon 24-55-5209HLE/1.73 sq M.predicted among non-blacks MDRD (S/P/Bld) [Vol rate/Area]59 mL/min/{1.73_m2}Low>=60 [facility] ShawGlobulin Calc (S) [Mass/Vol]on 04-07-2024 Globulin (S) [Mass/Vol]3.0 g/dLSelect Medical [facility] Clinic Rehabilitation Hospital, Edwin ShawGlucose mean value [Mass/volume] in Blood Estimated from glycated hemoglobinon 04-07-2024 Average glucose Estimated from glycated hemoglobin (Bld) [Mass/Vol]203 mg/dL [facility] ShawHematocrit Auto (Bld) [Volume fraction]on 70-15-8777Kdkuayzhmi (Bld) [Volume fraction]42.1 %42.0-54.0[facility] ShawHemoglobin [Mass/volume] in Bloodon 87-44-8063Svdjzdkevj (Bld) [Mass/Vol]14.0 g/dL14.0-18.0[facility] ShawLaboratory - Chemistry and Chemistry - challengeon 22-14-8232Qxgtjyf [Mass/Vol]3.5 g/dL 3.4-5.0[facility] ShawALP [Catalytic activity/Vol]120 U/LHigh 46-116[facility] ShawALT [Catalytic activity/Vol]27 U/L16-63 [facility] ShawAST [Catalytic activity/Vol]16 U/L15-37 [facility] ShawBilirubin [Mass/Vol]0.4 mg/dL0.2-1.0[facility] ShawCalcium [Mass/Vol]9.0 mg/dL8.5-10.1FOhioHealth Nelsonville Health CenterChloride [Moles/Vol]101 mmol/B56-362AxskjxmkfSelect Medical [facility], [facility] ShawCO2 [Moles/Vol]27.1 mmol/L21.0-32.0[facility] Creatinine [Mass/Vol]1.18 mg/dL0.70-1.30[facility] GFR/1.73 sq M.predicted MDRD (S/P/Bld) [Vol rate/Area]mL/min/{1.73_m2}>=60 [facility] ShawGlucose [Mass/Vol]248 mg/lVCfqc90-554CngnnqgewSelect Medical [facility], [facility] ShawPotassium [Moles/Vol]4.5 mmol/L3.5-5.1FOhioHealth Nelsonville Health CenterProtein [Mass/Vol]6.5 g/dL6.4-8.2FOhioHealth Nelsonville Health Center Sodium [Moles/Vol]136 mmol/B267-010ZtznflcnuSelect Medical [facility], [facility] ShawUrea nitrogen [Mass/Vol]21.0 mg/dLHigh7.0-18.0[facility] ShawUrea nitrogen/Creatinine [Mass ratio]17.8 mg/mgSelect Medical [facility] Laboratory - Hematology and Cell countson 34-19-1068HpP1m (Bld) [Mass fraction] 8.7 %High4.5-6.2FOhioHealth Nelsonville Health CenterComment on above:ADA RECOMMENDED LIMIT 4.0 - 6.0ADA THERAPEUTIC TARGET < 7.0ACTION SUGGESTED> 7.0 Immature granulocytes/100 WBC (Bld)0.2 %0.0-0.5FOhioHealth Nelsonville Health Center Leukocytes [#/volume] corrected for nucleated erythrocytes in Blood by Automated counon 15-51-2289ACW corrected for nucl RBC Auto (Bld) [#/Vol]4.5 10 3/uL 4.0-11.0[facility] ShawLymphocytes Auto (Bld) [#/Vol]on 18-08-3335Qcyjllerujy (Bld) [#/Vol]0.7 10 3/uLLow1.2-3.8[facility] ShawLymphocytes/100 WBC Auto (Bld)on 86-80-0711Nzaqfexshis/100 WBC (Bld)16.1 %Low20.5-60.0[facility] CenterH Auto (RBC) [Entitic mass]on 07-49-5482UGR (RBC) [Entitic mass]32.7 pg25.9-34.0[facility] ShawMCHC Auto (RBC) [Mass/Vol]on 91-57-3130PLRR (RBC) [Mass/Vol]33.3 g/dL29.9-35.2FOhioHealth Nelsonville Health CenterMCV Auto (RBC) [Entitic vol]on 35-97-5318IUM (RBC) [Entitic vol]98.4 hBAsgr18.0-94.0[facility] ShawMonocytes Auto (Bld) [#/Vol]on 79-13-9960Mqxdfgxvo (Bld) [#/Vol]0.4 10 3/uL0.3-0.8[facility] ShawMonocytes/100 WBC Auto (Bld)on 49-07-0563Iwabkrcfs/100 WBC (Bld)9.1 %1.7-12.0[facility] Neutrophils Auto (Bld) [#/Vol]on 93-00-0565Ftyrzzjzbpj (Bld) [#/Vol]3.3 10 3/uL 1.4-6.5FOhioHealth Nelsonville Health CenterNeutrophils/100 WBC Auto (Bld)on 15-25-9729Gzqvvpxyxcm/100 WBC (Bld)73.0 %43.0-75.0[facility] ShawNo Panel Informationon 34-36-0660Ccbnxigbdlu # (Auto)0.0 10 3/uL0.0-0.7 [facility] ShawImmature Granulocyte # (Auto)0.01 10 3/uL 0.00-0.03[facility] ShawPlatelet mean volume Auto (Bld) [Entitic vol]on 30-21-5177Foxjpdve mean volume (Bld) [Entitic vol]9.7 fL9.5-13.5 [facility] ShawPlatelets Auto (Bld) [#/Vol]on 04-07-2024 Platelets (Bld) [#/Vol]125 10 3/cJAan657-837YjitdciupSelect Medical [facility] Clinic [facility], Edwin ShawRBC Auto (Bld) [#/Vol]on 53-13-1335RWZ (Bld) [#/Vol]4.28 10 6/uLLow4.70-6.10 [facility] Hospitalerum or plasma albumin/globulin mass ratioon 23-26-5110Rxqrwts/Globulin [Mass ratio]1.2 {ratio}[facility] Hospitalerum or plasma anion gap determinationon 43-08-0848Pfwvg gap [Moles/Vol] 12.4 mmol/LFOhioHealth Nelsonville Health CenterBasophils Auto (Bld) [#/Vol]on 43-98-9772Jdziybnnn (Bld) [#/Vol]0.0 10 3/uL0.0-0.1FOhioHealth Nelsonville Health CenterBasophils/100 WBC Auto (Bld)on 08-71-0777Yupvzyuau/100 WBC (Bld)0.8 % 0.2-2.0[facility] ShawEosinophils/100 WBC Auto (Bld)on 80-77-4235Mrdxmdmktxj/100 WBC (Bld)1.5 %0.9-7.0[facility] Erythrocyte distribution width Auto (RBC) [Ratio]on 89-28-7512Rdijlobmpjm distribution width (RBC) [Ratio]13.0 %11.0-15.0[facility] Estimated glomerular filtration rate (GFR) non- Americanon 01-16-2024 GFR/1.73 sq M.predicted among non-blacks MDRD (S/P/Bld) [Vol rate/Area]56 mL/min/{1.73_m2}Low>=60[facility] ShawHematocrit Auto (Bld) [Volume fraction]on 30-87-0849Sgskjumzya (Bld) [Volume fraction]39.5 %Low 42.0-54.0[facility] ShawHemoglobin [Mass/volume] in Bloodon 99-36-1597Fyphdvjbzb (Bld) [Mass/Vol]13.3 g/dLLow14.0-18.0[facility] ShawLaboratory - Chemistry and Chemistry - challengeon 01-16-2024 Calcium [Mass/Vol]9.1 mg/dL8.5-10.1FOhioHealth Nelsonville Health CenterChloride [Moles/Vol]100 mmol/Z04-494AnokegojkSelect Medical [facility], [facility] ShawCO2 [Moles/Vol]32.5 mmol/LHigh21.0-32.0[facility] ShawCreatinine [Mass/Vol]1.23 mg/dL0.70-1.30[facility] ShawGFR/1.73 sq M.predicted MDRD (S/P/Bld) [Vol rate/Area]mL/min/{1.73_m2}>=60[facility] Glucose [Mass/Vol]244 mg/gAWrvz37-860UonmhtbnzSelect Medical [facility] Clinic [facility] Hospital, [facility] ShawPotassium [Moles/Vol]4.7 mmol/L3.5-5.1FPeoples Hospitalodium [Moles/Vol] 137 mmol/C624-987PmulecpjrSelect Medical [facility] Clinic Rehabilitation [facility], [facility] ShawUrea nitrogen [Mass/Vol]15.0 mg/dL7.0-18.0[facility] ShawUrea nitrogen/Creatinine [Mass ratio]12.2 mg/mgSelect Medical [facility], [facility] ShawLaboratory - Hematology and Cell countson 36-49-6392Npvzehht granulocytes/100 WBC (Bld)0.2 %0.0-0.5FOhioHealth Nelsonville Health CenterLaboratory - Urinalysison 88-46-0258Emavpul (U) [Mass/Vol]32.8 mg/dLHigh<=11.9[facility] ShawLeukocytes [#/volume] corrected for nucleated erythrocytes in Blood by Automated counon 29-06-9485UHI corrected for nucl RBC Auto (Bld) [#/Vol]4.8 10 3/uL4.0-11.0 [facility] ShawLymphocytes Auto (Bld) [#/Vol]on 01-16-2024 Lymphocytes (Bld) [#/Vol]0.9 10 3/uLLow1.2-3.8[facility] Lymphocytes/100 WBC Auto (Bld)on 52-35-8048Mghukkcaxil/100 WBC (Bld)17.7 %Low 20.5-60.0[facility] Auto (RBC) [Entitic mass]on 66-13-1872FUD (RBC) [Entitic mass]32.8 pg25.9-34.0[facility] ShawMCHC Auto (RBC) [Mass/Vol]on 22-52-4015LWUK (RBC) [Mass/Vol]33.7 g/dL 29.9-35.2FOhioHealth Nelsonville Health CenterMCV Auto (RBC) [Entitic vol]on 96-46-4734NCE (RBC) [Entitic vol]97.3 jDTcmv13.0-94.0[facility] ShawMonocytes Auto (Bld) [#/Vol]on 36-24-2902Qtcdpxesy (Bld) [#/Vol]0.4 10 3/uL0.3-0.8[facility] ShawMonocytes/100 WBC Auto (Bld)on 87-50-2607Gyobpuupv/100 WBC (Bld)9.2 %1.7-12.0[facility] Neutrophils Auto (Bld) [#/Vol]on 51-92-9484Myshmcgndjw (Bld) [#/Vol]3.4 10 3/uL 1.4-6.5FOhioHealth Nelsonville Health CenterNeutrophils/100 WBC Auto (Bld)on 99-32-8713Whcyazuulja/100 WBC (Bld)70.6 %43.0-75.0[facility] ShawNo Panel Informationon 33-40-5296Dgbmtgaphjv # (Auto)0.1 10 3/uL0.0-0.7 [facility] ShawImmature Granulocyte # (Auto)0.01 10 3/uL 0.00-0.03[facility] ShawUrine Random Kzilvyrzwk587.34 mg/dL 20.00-300.00[facility] ShawPlatelet mean volume Auto (Bld) [Entitic vol]on 64-10-6257Xxqsgvwi mean volume (Bld) [Entitic vol]9.5 fL9.5-13.5 [facility] ShawPlatelets Auto (Bld) [#/Vol]on 01-16-2024 Platelets (Bld) [#/Vol]123 10 3/gWGus748-065HennvkmetSelect Medical Cleveland Clinic Rehabilitation Hospital, Edwin ShawRBC Auto (Bld) [#/Vol]on 58-08-8629IPR (Bld) [#/Vol]4.06 10 6/uLLow4.70-6.10 [facility] Hospitalerum or plasma anion gap determinationon 24-53-9755Akirw gap [Moles/Vol]9.2 mmol/LFOhioHealth Nelsonville Health CenterUrine protein/creatinine ratioon 77-18-3992Lakjlyd/Creatinine (U) [Ratio]0.28[facility] ShawAlbumin [Mass/volume] in Serum or Plasmaon 12-19-2023 Albumin [Mass/Vol]3.9 g/dL2.9-4.4FOhioHealth Nelsonville Health CenterBasophils Auto (Bld) [#/Vol]on 76-55-3037Qncpgsnsh (Bld) [#/Vol]0.0 10 3/uL0.0-0.1FOhioHealth Nelsonville Health CenterBasophils/100 WBC Auto (Bld)on 49-77-4611Atcyutoap/100 WBC (Bld)0.6 %0.2-2.0[facility] ShawEosinophils/100 WBC Auto (Bld)on 20-95-3550Jhpmgonkait/100 WBC (Bld)1.1 %0.9-7.0[facility] ShawErythrocyte distribution width Auto (RBC) [Ratio]on 12-19-2023 Erythrocyte distribution width (RBC) [Ratio]12.9 %11.0-15.0[facility] ShawEstimated glomerular filtration rate (GFR) non- Americanon 91-13-1401NST/1.73 sq M.predicted among non-blacks MDRD (S/P/Bld) [Vol rate/Area]43 mL/min/{1.73_m2}>=60[facility] ShawGlobulin Calc (S) [Mass/Vol]on 19-75-1190Cizyqink (S) [Mass/Vol]3.1 g/dLSelect Medical Cleveland Clinic Rehabilitation Hospital, Edwin ShawGlucose mean value [Mass/volume] in Blood Estimated from glycated hemoglobinon 49-84-4173Taghens glucose Estimated from glycated hemoglobin (Bld) [Mass/Vol]166 mg/dLSelect Medical [facility] Clinic Rehabilitation Hospital, Edwin ShawHematocrit Auto (Bld) [Volume fraction]on 71-80-5040Stdazdszan (Bld) [Volume fraction]38.3 %42.0-54.0 [facility] ShawHemoglobin [Mass/volume] in Bloodon 12-19-2023 Hemoglobin (Bld) [Mass/Vol]12.3 g/dL14.0-18.0[facility] IgA [Mass/volume] in Serum or Plasmaon 81-22-1293CkM [Mass/Vol]112 mg/bZ44-587 [facility] ShawIgG [Mass/volume] in Serum or Plasmaon 76-47-6952QzJ [Mass/Vol]805 mg/bC787-4258WrzddipwbSelect Medical Cleveland Clinic Rehabilitation Hospital, Edwin ShawIgM [Mass/volume] in Serum or Plasmaon 72-44-3922XbP [Mass/Vol]48 mg/yI72-432 [facility] ShawImmunoglobulin light chains.kappa.free [Mass/volume] in Serumon 67-34-0417Gznokgxbvopizl light chains.kappa.free (S) [Mass/Vol]33.8 mg/L3.3-19.4FOhioHealth Nelsonville Health CenterImmunoglobulin light chains.kappa.free/Immunoglobulin light chains.lambda.free [Sandra 12-19-2023 Immunoglobulin light chains.kappa.free/Immunoglobulin light chains.lambda.free (S) [Mass ratio]1.610.26-1.65[facility] ShawComment on above: Performed at: [facility] [place] [id number] Director: Juan José Butler PhD, Phone: [phone] light chains.lambda.free [Mass/volume] in Serum or Plasmaon 00-65-1582Bfhaydxdznvhqu light chains.lambda.free [Mass/Vol]21.0 mg/L5.7-26.3FOhioHealth Nelsonville Health CenterIron binding capacity [Mass/volume] in Serum or Plasmaon 41-17-2183Rbgh binding capacity [Mass/Vol]294.0 ug/dL250.0-450.0[facility] ShawIron saturation [Mass Fraction] in Serum or Plasmaon 01-55-5018Zdws saturation [Mass fraction]26.9 %[facility] ShawLaboratory - Chemistry and Chemistry - challengeon 80-58-0850Qrfqiax [Mass/Vol]3.4 g/dL 3.4-5.0[facility] ShawALP [Catalytic activity/Vol]88 U/L46-116 [facility] ShawALT [Catalytic activity/Vol]36 U/L16-63 [facility] ShawAST [Catalytic activity/Vol]14 U/L15-37 [facility] ShawBilirubin [Mass/Vol]0.3 mg/dL0.2-1.0[facility] ShawCalcium [Mass/Vol]9.3 mg/dL8.5-10.1FOhioHealth Nelsonville Health CenterChloride [Moles/Vol]102 mmol/H47-423AvuszstbsSelect Medical Cleveland Clinic Rehabilitation Hospital, Edwin ShawCO2 [Moles/Vol]31.6 mmol/L21.0-32.0[facility] Cobalamin (Vitamin B12) [Mass/Vol]386.0 pg/mL193.0-986.0[facility] ShawCreatinine [Mass/Vol]1.55 mg/dL0.70-1.30[facility] ShawFerritin [Mass/Vol]94.0 ng/mL26.0-388.0[facility] GFR/1.73 sq M.predicted MDRD (S/P/Bld) [Vol rate/Area]52 mL/min/{1.73_m2}>=60 [facility] ShawGlucose [Mass/Vol]217 mg/uP78-048PwzoswyzfSelect Medical Cleveland Clinic Rehabilitation Hospital, Edwin ShawIron [Mass/Vol]79.0 ug/dL65.0-175.0[facility] ShawPotassium [Moles/Vol]5.0 mmol/L3.5-5.1FOhioHealth Nelsonville Health CenterProtein [Mass/Vol]6.5 g/dL6.4-8.2FPeoples Hospitalodium [Moles/Vol]141 mmol/L486-983HcrphhctzSelect Medical [facility], [facility] ShawTSH Qn0.974 m[IU]/L 0.358-3.740[facility] ShawUrea nitrogen [Mass/Vol]21.0 mg/dL 7.0-18.0[facility] CenterUrea nitrogen/Creatinine [Mass ratio] 13.5 mg/mgSelect Medical [facility] Clinic [facility], [facility] ShawLaboratory - Hematology and Cell countson 16-68-6215JlI2y (Bld) [Mass fraction]7.4 %4.5-6.2FOhioHealth Nelsonville Health CenterComment on above:ADA RECOMMENDED LIMIT 4.0 - 6.0ADA THERAPEUTIC TARGET < 7.0ACTION SUGGESTED> 7.0Immature granulocytes/100 WBC (Bld)0.2 %0.0-0.5 [facility] ShawLeukocytes [#/volume] corrected for nucleated erythrocytes in Blood by Automated counon 30-80-3860VPC corrected for nucl RBC Auto (Bld) [#/Vol]5.4 10 3/uL4.0-11.0[facility] Lymphocytes Auto (Bld) [#/Vol]on 65-23-7440Zvhyhyelqzp (Bld) [#/Vol]1.1 10 3/uL 1.2-3.8[facility] ShawLymphocytes/100 WBC Auto (Bld)on 21-42-5121Rtvlmdexpuw/100 WBC (Bld)20.0 %20.5-60.0[facility] CenterH Auto (RBC) [Entitic mass]on 14-95-3069VHK (RBC) [Entitic mass]32.0 pg 25.9-34.0[facility] ShawMCHC Auto (RBC) [Mass/Vol]on 73-23-3871HMNI (RBC) [Mass/Vol]32.1 g/dL29.9-35.2FOhioHealth Nelsonville Health CenterMCV Auto (RBC) [Entitic vol]on 94-10-6407LVZ (RBC) [Entitic vol]99.7 fL 80.0-94.0[facility] ShawMonocytes Auto (Bld) [#/Vol]on 87-84-7239Xotxlyllw (Bld) [#/Vol]0.5 10 3/uL0.3-0.8[facility] ShawMonocytes/100 WBC Auto (Bld)on 00-41-4592Cxgjyjbtm/100 WBC (Bld)9.2 % 1.7-12.0[facility] ShawNeutrophils Auto (Bld) [#/Vol]on 41-84-4076Roycimlkhcq (Bld) [#/Vol]3.7 10 3/uL1.4-6.5FOhioHealth Nelsonville Health CenterNeutrophils/100 WBC Auto (Bld)on 02-41-3505Djgqpqhsita/100 WBC (Bld)68.9 % 43.0-75.0[facility] ShawNo Panel Informationon 87-54-8435S- Reactive Protein, Quantitative<0.50 mg/dL<=0.50[facility] Eosinophils # (Auto)0.1 10 3/uL0.0-0.7FOhioHealth Nelsonville Health CenterFolate 22.10 ng/mL8.60-58.90[facility] ShawImmature Granulocyte # (Auto)0.01 10 3/uL0.00-0.03[facility] ShawProtein Electrophoresis M-SpikeNot Observed g/dLNot ObservedSelect Medical [facility], [facility] ShawProtein Electrophoresis NoteComment.[facility] Comment on above:Protein electrophoresis scan will follow via computer,mail, or manager financial services delivery.Platelet mean volume Auto (Bld) [Entitic vol]on 12-19-2023 Platelet mean volume (Bld) [Entitic vol]9.6 fL9.5-13.5FOhioHealth Nelsonville Health CenterPlatelets Auto (Bld) [#/Vol]on 63-84-9687Qzfgdondl (Bld) [#/Vol]136 10 3/jL132-567JwtamvoshSelect Medical Cleveland Clinic Rehabilitation [facility], Edwin ShawProtein [Mass/volume] in Serum or Plasmaon 19-58-7899Xwduobj [Mass/Vol]6.2 g/dL6.0-8.5FOhioHealth Nelsonville Health CenterRBC Auto (Bld) [#/Vol]on 12-10-7492RZI (Bld) [#/Vol]3.84 10 6/uL4.70-6.10 [facility] Hospitalerum globulin measurement (mass/volume)on 79-93-9504Oqsejgsc (S) [Mass/Vol]2.3 g/dL2.2-3.9[facility] Hospitalerum or plasma albumin/globulin mass ratioon 25-38-7399Gwrhdiy/Globulin [Mass ratio]1.1 {ratio}[facility] ShawAlbumin/Globulin [Mass ratio]1.7 {ratio}0.7-1.7FPeoples Hospitalerum or plasma alpha 1 globulin measurement by electrophoresis (mass/volume)on 18-74-1013Hljff 1 globulin Elph [Mass/Vol]0.2 g/dL0.0-0.4FPeoples Hospitalerum or plasma alpha 2 globulin measurement by electrophoresis (mass/volume)on 93-65-8992Kvddh 2 globulin Elph [Mass/Vol]0.6 g/dL0.4-1.0[facility] Hospitalerum or plasma anion gap determinationon 67-37-9128Zkjtv gap [Moles/Vol]12.4 mmol/LFPeoples Hospitalerum or plasma beta globulin measurement by electrophoresis (mass/volume)on 76-74-1199Yhhm globulin Elph [Mass/Vol]0.8 g/dL0.7-1.3FPeoples Hospitalerum or plasma gamma globulin measurement by electrophoresis (mass/volume)on 05-07-1261Vsjnd globulin Elph [Mass/Vol]0.7 g/dL0.4-1.8[facility] Hospitalerum or plasma immunoelectrophoresis interpretationon 94-29-6079Rmzdomeyepupaj IEP [Interp]Comment.[facility] ShawComment on above:No monoclonality detected.Office Visit (Cardiology)on 30-61-7580Qtklsd-up visit Diagnoses/Problems Assessed Diastolic dysfunction with chronic [...] in adult Healthy Weight Tips; Status:Complete; Done: [id number] Some eating tips that can help you lose weight.; Status:Complete; Done: [id number] Diabetes Hemoglobin A1C; Status:Canceled; Hyperlipidemia ALT - [...] multiple comorbidities, [facility] of hypoxemic respiratory failure due to pneumonia, could not exclude diastolic heart failure, and had mild elevation of troponin. Diagnosis is elevated troponin not related to myocardial injury, but possibly related to supply demand mismatch. Patient has chronic diastolic heart failure Shortness of breath class III multifactorial EKG today sinus rhythm 85 first-degree AV block [place] interval 218 ms compared to EKG of 09/05/2022 heart rate has decreased. 1 Uses cane as ambulatory aid, no falls Surgical History Problems History of Arm surgery History of Cataract surgery History of Colon surgery History of Complete colonoscopy History of Tonsillectomy Current Meds Medication NameInstruction Acetaminophen 325 MG Or (more content not included)...NormalUH TouchworksTobacco Screening.on 13-82-2903Roqi risk assessmenta) No falls within the last year- [facility] [employer] 250 DO Work Phone: Tobacco use status CPHSb) NoM-[facility] [place] 250 DO Work Phone: Office Visit (Cardiology)on 02-75-5798Saphvv-up visit Patient Instructions Please bring all medicines, [...] was prompted by a hospital stay at [facility].Patient was admitted in transfer from [facility], with hypoxemia cough congestion, treated [...] Klor- (more content not included)...NormalUH TouchworksTobacco Screening.on 38-24-3483Eglog depression screening assessmentNoMultiCare [facility]-Don 250 DO Work Phone: Fall risk assessmenta) No falls within the last year -[facility] 250 DO Work Phone: Tobacco use status CPHSb) NoM-[facility]- Don 250 DO Work Phone: NO CARDIAC STRESS/REST INJECTIONon 03-80-5853DWG CARDIAC STRESS/REST INJECTIONMRN: [id number] Patient Name: JOSE L AMES STUDY: MYOCARDIAL PERFUSION STRESS TEST WITH LEXISCAN Performing facility: [facility], [address] [place] [address], [address], [address] Provider: Cathleen Lopez MD, FACC PCP: Dr. Alejandro ALEJANDRO Supervising provider: Liz Plata MD INDICATION: R77.8: Elevated troponin I50.32: Diastolic dysfunction with chronic heart failure HISTORY: Gender: M; Age: 82 y/o ; Height: 0 cm; Weight: 397.1491209 kg. Diabetes; High Cholesterol; HTN; SOB; COPD; Quit smoking 2 years ago. COMPARISON: No comparison. ACCESSION NUMBER(S): [id number]; [id number]; [id number] ORDERING CLINICIAN: CATHLEEN LOPEZ TECHNIQUE: ONE DAY [...] for comparison. Electronically signed by: VIET HALL MDValley Forge Medical Center & HospitalNo Panel Informationon 36-23-6319JcalbrJB-[place] [facility]-[place] 250 DO Work Phone: Office Visit (Cardiology)on 95-27-8325Carini-up visit Diagnoses/Problems Assessed Hypertension (401.9) (I10) Hyperlipidemia [...] is being seen for CAD referral [facility] [place]. History of Present [...] was prompted by a hospital stay at [facility].Patient was admitted in transfer from [facility], with hypoxemia cough congestion, treated [...] multiple comorbidities, [facility] respiratory failure due to pneumonia, could not exclude diastolic heart failure, and had mild elevation of troponin. Diagnosis is elevated troponin not related to myocardial injury, but possibly related to supply demand mismatch. Patient has chronic diastolic heart failure Shortness of breath class III multifactorial EKG today sinus rhythm 85 first-degree AV block [place] interval 218 ms compared to EKG of [...] further questions arise, Sincerely, Cathleen Lopez MD [facility] I told patient that he should bring his inhalers and use them prior to his perfusion study. Current (more content not included)...NormalUH TouchworksTobacco Screening.on 02-52-2681Ontxe depression screening assessmentAppleton Municipal Hospital 250 DO Work Phone: Fall risk assessmenta) No falls within the last year [facility] 250 DO Work Phone: Tobacco use status CPHSb) [facility] 250 DO Work Phone: CHEMISTRYOrdered By: Neli Collins on 63-51-6408Cvrfhph [Mass/Vol]110 mg/rVMoxc35 - 99 mg/dLFTMC POC SubsectionComment on above:Result Comment: Cleaned MeterPOC Device [id number] Interpretation CodeFTMC POC SubsectionPOC User [id number] Interpretation CodeFTMC POC Subsection POC UsernameSHAFFER, ATHENAInvalid Interpretation CodeFTMC POC SubsectionGlucose [Mass/Vol]93 mg/mJNwmhuu67 - 99 mg/dLFTMC POC SubsectionComment on above:Result Comment: Cleaned MeterPOC Device [id number] Interpretation CodeFTMC POC SubsectionPOC User [id number] Interpretation CodeFTMC POC Subsection POC UsernamKRISTEN Dangvalba Interpretation CodeFTMC POC Subsection CHEMISTRYOrdered By: Lab ROPUser on 10-09-0867Xorsuza [Mass/Vol]187 mg/aGEduj64 - 99 mg/dLFTMC POC SubsectionComment on above:Result Comment: Cleaned MeterPOC Device [id number] Interpretation CodeFTMC POC SubsectionPOC User ID [id number] Interpretation CodeFTMC POC SubsectionPOC UsernamKRISTEN Dangvalba Interpretation CodeFTMC POC SubsectionCHEMISTRYOrdered By: SYSTEM SYSTEM on 82-17-6178Mbbsn gap [Moles/Vol]14 mmol/LNormal6 - 16 mEq/LFTMC Remisol Calcium [Mass/Vol]8.8 mg/dLLow8.9 - 11.1 mg/dLFTMC RemisolChloride [Moles/Vol]97 mmol/USac242 - 111 mmol/LFTMC RemisolCO2 [Moles/Vol]28 mmol/UOdgyzf25 - 31 mmol/LFTMC RemisolCreatinine [Mass/Vol]1.3 mg/dLNormal0.5 - 1.3 mg/dLFTMC RemisolGFR/1.73 sq M.predicted among blacks MDRD (S/P/Bld) [Vol rate/Area] mL/min/1.73 s1Mdmqow>=59mL/min/1.73 m2FT[facility] Chem SGFR/1.73 sq M.predicted among non-blacks MDRD (S/P/Bld) [Vol rate/Area]53 mL/min/1.73 m2Low>=59mL/min/1.73 m2 [facility] Chem SGlucose [Mass/Vol]89 mg/xAHhemlv92 - 199 mg/dLFTMC RemisolPotassium [Moles/Vol]4.2 mmol/LNormal3.5 - 5.3 mmol/LFTMC RemisolSodium [Moles/Vol]135 mmol/UFswikj630 - 145 mmol/LFTMC RemisolUrea nitrogen [Mass/Vol]20 mg/dLNormal5 - 21 mg/dLFTMC RemisolUrea nitrogen/Creatinine [Mass ratio]15 mg/ymAuiisi64 - 20 FT RemisolCHEMISTRYOrdered By: Opal Angel on 90-81-2706NwE1a (Bld) [Mass fraction]9.8 %High<=5.9%[facility] ChemAutoSSCHEMISTRYOrdered By: SYSTEM SYSTEM on 87-29-9883Fdavl gap [Moles/Vol]11 mmol/LNormal6 - 16 mEq/LFTMC RemisolCalcium [Mass/Vol]8.3 mg/dLLow8.9 - 11.1 mg/dLFTMC RemisolChloride [Moles/Vol]93 mmol/L Ifn711 - 111 mmol/LFTMC RemisolCO2 [Moles/Vol]32 mmol/LHigh21 - 31 mmol/LFTMC RemisolCreatinine [Mass/Vol]1.1 mg/dLNormal0.5 - 1.3 mg/dLFTMC RemisolGFR/1.73 sq M.predicted among blacks MDRD (S/P/Bld) [Vol rate/Area]mL/min/1.73 w1Kgwswm >=59mL/min/1.73 m2FT Chem SGFR/1.73 sq M.predicted among non-blacks MDRD (S/P/Bld) [Vol rate/Area]mL/min/1.73 i2Sgveii>=59mL/min/1.73 m2FT Chem S Glucose [Mass/Vol]281 mg/aURsry59 - 199 mg/dLFTMC RemisolPotassium [Moles/Vol] 4.3 mmol/LNormal3.5 - 5.3 mmol/LFTMC RemisolSodium [Moles/Vol]132 mmol/DRle111 - 145 mmol/LFTMC RemisolUrea nitrogen [Mass/Vol]24 mg/dLHigh5 - 21 mg/dLFTMC RemisolUrea nitrogen/Creatinine [Mass ratio]22 mg/ljDcjk29 - 20FT[facility] Remisol HEMATOLOGYOrdered By: SYSTEM SYSTEM on 62-47-6181Bidbkxstx/100 WBC (Bld)0.2 % Normal0.0 - 2.0 %[facility] HemeAutoSSBasophils/Leukocytes Auto (Bld) [Pure # fraction]0.0 E9/LNormal0.0 [...] 7.5 E9/LFTMC HemeAutoSSHEMATOLOGYOrdered By: Terrell Orosco on 27-10-9935Gbwobkjkygk distribution width (RBC) [Ratio]13.9 %Yejrjq62.9 - 14.2 %[facility] HemeAutoSSHematocrit (Bld) [Volume fraction]40.7 % Afafof26.7 - 49.0 %[facility] HemeAutoSSHemoglobin (Bld) [Mass/Vol]13.6 g/aUWrrssy54.5 - 17.5 gm/dLFTMC HemeAutoSSMCH (RBC) [Entitic mass]30.5 bvBmyzda15.0 - 34.0 pg [facility] HemeAutoSSMCHC (RBC) [Mass/Vol]33.5 g/cTAdwlsu79.4 - 36.0 gm/dLFTMC HemeAutoSSMCV (RBC) [Entitic vol]91.1 iBXgcfyt70.0 - 100.0 fLFTMC HemeAutoSS Platelet mean volume (Bld) [Entitic vol]8.0 fLNormal6.4 - 10.8 fL[facility] HemeAutoSS Platelets (Bld) [#/Vol]218.0 E9/ZLvkgzb817.0 - 500.0 E9/[facility] HemeAutoSSRBC (Bld) [#/Vol]4.5 E12/LNormal4.3 - 5.9 E12/[facility] HemeAutoSSWBC corrected for nucl RBC Auto (Bld) [#/Vol]6.3 E9/LNormal4.0 - 11.0 E9/[facility] HemeAutoSSCOVID-19 SOFIAOrdered By: Randolph Velasquez on 33-45-7039PAJF-CoV+SARS-CoV-2 (COVID-19) Ag IA.rapid Ql (Resp)NegativeNegativeSelect Medical Cleveland Clinic Rehabilitation Hospital, Edwin ShawComment on above:This is a duplicate Kyung SARS Antigen (DAVE) result to be used for statistical tracking purpose only.Creatinine and Glomerular filtration rate.predicted panel (S/P/Bld)Ordered By: aRndolph Velasquez on 44-98-9580Ivcirqosdn [Mass/Vol]1.12 mg/dL0.64-1.27[facility], Edwin ShawEstimated glomerular filtration rate (GFR) non- AmericanOrdered By: Randolph Velasquez on 43-04-6200PQZ/1.73 sq M.predicted among non-blacks MDRD (S/P/Bld) [Vol rate/Area]> 60 mL/MinSelect Medical Cleveland Clinic Rehabilitation Hospital, Edwin ShawGlucose Glucometer (BldC) [Mass/Vol]Ordered By: Randolph Velasquez on 99-69-7218Zztmdtn [Mass/Vol]342 mg/dL [facility], [facility] ShawComment on above:Random Glucose Reference Range is dependent on time and content of last meal. Glucose of more than 200 mg/dL in a nonstressed, ambulatory subject supports the diagnosis of Diabetes Mellitus.No Panel InformationOrdered By: Randolph Velasquez on 27-86-4059FPID Antigen (LFIA)[facility] Edwin ShawEstimated GFR ()> 60 mL/MinSelect Medical Cleveland Clinic Rehabilitation Hospital, Edwin ShawComment on above:GFR estimated reference range: According to KDOQI guidelines, <60 ml/min/1.73m2 is sufficient todiagnose a patient with chronic kidney disease.Pharmacy Creatinine Clearance (Chem62.70 [facility] Hospitalerum or plasma anion gap determinationOrdered By: Randolph Velasquez on 62-03-4636Krgtm gap [Moles/Vol]7.5 mmol/L6.0-15.0[facility] Hospitalerum or plasma calcium measurement (mass/volume)Ordered By: Randolph Velasquez on 74-90-0517Zquzqrt [Mass/Vol]7.9 mg/dL8.2-10.2FPeoples Hospitalerum or plasma chloride measurement (moles/volume) Ordered By: Randolph Velasquez on 46-82-8145Bcemifsp [Moles/Vol]98 mmol/L95-114 [facility] Hospitalerum or plasma glucose measurement (mass/volume)Ordered By: Randolph Velasquez on 63-18-2789Rbtpmgo [Mass/Vol]170 mg/dL 70-100[facility], Edwin ShawComment on above:ADA recommended reference rangeRandom Glucose Reference Range is dependent on time and content of last meal. Glucose of more than 200 mg/dL in a nonstressed, ambulatory subject supports the diagnosisof Diabetes Mellitus.Serum or plasma potassium measurement (moles/volume)Ordered By: Randolph Velasquez on 89-16-8808Uxrzdzwka [Moles/Vol]3.4 mmol/L3.5-5.1FOhioHealth Nelsonville Health CenterComment on above: Delta: 4.9 on 09/07/2210Serum or plasma sodium measurement (moles/volume) Ordered By: Randolph Velasquez on 66-62-6427Dfubec [Moles/Vol]134 mmol/G617-158 [facility] Hospitalerum or plasma total carbon dioxide measurement (moles/volume)Ordered By: Randolph Velasquez on 91-75-6635UT1 [Moles/Vol] 31.9 mmol/L22.0-30.0[facility] Hospitalerum or plasma urea nitrogen measurement (mass/volume)Ordered By: Randolph Velasquez on 52-82-0305Unrz nitrogen [Mass/Vol]22 mg/dL9-[facility] ShawAutomated erythrocytes count in urine sediment (number/area)Ordered By: Randolph Velasquez on 95-13-5549OVQ Auto (Urine sed) [#/Area]Innumerable [HPF]0-4FOhioHealth Nelsonville Health CenterAutomated leukocytes count in urine sediment (number/area)Ordered By: Randolph Velasquez on 68-56-6597FOF Auto (Urine sed) [#/Area]1-2 [HPF]0-4 [facility] ShawBasophils Auto (Bld) [#/Vol]Ordered By: Randolph Velasquez on 00-94-0147Hogkgyctu (Bld) [#/Vol]0.0 10*3/uL0.0-0.2FOhioHealth Nelsonville Health CenterBasophils/100 WBC Auto (Bld)Ordered By: Randolph Velasquez on 48-84-4263Hbkgmdwvi/100 WBC (Bld)0.3 %.[facility] Bilirubin Test strip Ql (U)Ordered By: Randolph Velasquez on 85-73-1361Kglpiodok Ql (U)NegativeNegativeSelect Medical Cleveland Clinic Rehabilitation Hospital, Edwin ShawColor Auto (U)Ordered By: Randolph Velasquez on 70-00-3684Ttqwm (U)YellowYellowSelect Medical Cleveland Clinic Rehabilitation Hospital, Edwin ShawEosinophils Auto (Bld) [#/Vol]Ordered By: Randolph Velasquez on 09-07-2022 Eosinophils (Bld) [#/Vol]0.0 10*3/uL0.0-0.45[facility] Eosinophils/100 WBC Auto (Bld)Ordered By: Randolph Velasquez on 09-07-2022 Eosinophils/100 WBC (Bld)0.0 %.[facility] Hospital, Edwin ShawErythrocyte distribution width Auto (RBC) [Ratio]Ordered By: Randolph Velasquez on 09-07-2022 Erythrocyte distribution width (RBC) [Ratio]13.9 %12.0-14.8[facility], Edwin ShawHematocrit Auto (Bld) [Volume fraction]Ordered By: Randolph Velasquez on 37-32-9812Nzqswqeptm (Bld) [Volume fraction]38.6 %38.8-50.0[facility], [facility] ShawHemoglobin [Mass/volume] in BloodOrdered By: Randolph Velasquez on 56-90-5423Axgnswotan (Bld) [Mass/Vol]12.6 g/dL13.0-17.0[facility] ShawKetones Auto test strip (U) [Mass/Vol]Ordered By: Randolph Velasquez on 85-37-5715Mlqaies (U) [Mass/Vol]TraceNegativeSelect Medical [facility] Clinic [facility], [facility] Shaw Laboratory - UrinalysisOrdered By: Randolph Velasquez on 37-41-0552Zbaavsv casts LM Ql (Urine sed)0-8 [LPF]0-8[facility] ShawLeukocytes [#/volume] corrected for nucleated erythrocytes in Blood by Automated counOrdered By: Randolph Velasquez on 95-47-5938OYQ corrected for nucl RBC Auto (Bld) [#/Vol]13.0 10*3/uL4.1-10.5FOhioHealth Nelsonville Health CenterLymphocytes Auto (Bld) [#/Vol] Ordered By: Randolph Velasquez on 69-98-4721Tdegojmhxnv (Bld) [#/Vol]0.5 10*3/uL 1.00-4.8[facility] ShawLymphocytes/100 WBC Auto (Bld)Ordered By: Randolph Velasquez on 43-05-6024Khrbqoojqxz/100 WBC (Bld)3.6 %.[facility] Auto (RBC) [Entitic mass]Ordered By: Randolph Velasquez on 43-07-2938RLI (RBC) [Entitic mass]30.2 pg27.5-35.2FOhioHealth Nelsonville Health CenterMCHC Auto (RBC) [Mass/Vol]Ordered By: Randolph Velasquez on 79-61-3504IWYO (RBC) [Mass/Vol]32.7 g/dL32.5-35.6FOhioHealth Nelsonville Health CenterMCV Auto (RBC) [Entitic vol]Ordered By: Randolph Velasquez on 18-80-3446GEM (RBC) [Entitic vol]92.1 fL83.5-101[facility] ShawMonocytes Auto (Bld) [#/Vol] Ordered By: Randolph Velasquez on 96-50-0031Ngwtpiixr (Bld) [#/Vol]0.6 10*3/uL0.0-0.8 [facility] ShawMonocytes/100 WBC Auto (Bld)Ordered By: Randolph Velasquez on 85-22-3130Mhnoeiyvj/100 WBC (Bld)4.5 %.[facility], Edwin ShawNeutrophils Auto (Bld) [#/Vol]Ordered By: Randolph Velasquez on 09-07-2022 Neutrophils (Bld) [#/Vol]11.9 10*3/uL1.8-7.7FOhioHealth Nelsonville Health Center Neutrophils/100 WBC Auto (Bld)Ordered By: Randolph Velasquez on 09-07-2022 Neutrophils/100 WBC (Bld)91.6 %.[facility], Edwin ShawNitrite Test strip Ql (U)Ordered By: Randolph Velasquez on 75-36-5474Untlzoj Ql (U)Negative NegativeSelect Medical Cleveland Clinic Rehabilitation Hospital, Edwin ShawNo Panel InformationOrdered By: Randolph Velasquez on 89-03-7442Bylvsgb Glucose #2 CommentCleaned meterSelect Medical Cleveland Clinic Rehabilitation Hospital, Edwin ShawBedside Glucose CommentSee [facility] Berger HospitalComment on above:Glu2: Will Repeat TestNucleated erythrocytes [Presence] in Blood by Automated countOrdered By: Randolph Velasquez on 84-88-2945Efnjzoxxf RBC Auto Ql (Bld)0.0 /100{WBC}0-0.5FOhioHealth Nelsonville Health CenterPlatelet adequacy [Presence] in Blood by Light microscopyOrdered By: Randolph Velasquez on 54-15-0524Niyknjubx LM Ql (Bld)NormalNormDelaware County Hospital Platelet mean volume Auto (Bld) [Entitic vol]Ordered By: Randolph Velasquez on 95-99-9929Jjetzprl mean volume (Bld) [Entitic vol]8.3 fL6.6-10.1FOhioHealth Nelsonville Health CenterPlatelet morphology finding [Identifier] in BloodOrdered By: Randolph Velasquez on 06-15-8086Suoixygc morphology finding Nom (Bld)NormalNormal [facility] ShawPlatelets Auto (Bld) [#/Vol]Ordered By: Randolph Velasquez on 86-32-2562Usduanhin (Bld) [#/Vol]227 10*3/aJ763-737IuubnlpmbSelect Medical Cleveland Clinic Rehabilitation Hospital, Edwin ShawProtein Auto test strip (U) [Mass/Vol]Ordered By: Randolph Velasquez on 31-63-5592Gktaymb (U) [Mass/Vol]100 mg/dLNegativeSelect Medical Cleveland Clinic Rehabilitation Hospital, Edwin ShawRBC Auto (Bld) [#/Vol]Ordered By: Randolph Velasquez on 11-10-8605CYR (Bld) [#/Vol]4.19 10*6/uL3.90-5.60[facility], Edwin ShawRBC morphology Ordered By: Randolph Velasquez on 36-25-0597WAH morphology finding Nom (Bld)Normal NormalPremier Health Miami Valley Hospitalpecific gravity Auto test strip (U) [Rel density]Ordered By: Randolph Velasquez on 87-53-5401Irrxzchp gravity (U) [Rel density]1.0301.001-1.030[facility] Hospitalquamous epithelial cells detection in urine sediment by light microscopyOrdered By: Randolph Velasquez on 88-49-8543Zzpavxntot cells.squamous LM Ql (Urine sed)None seen [HPF]0-2 [facility], [facility] ShawUrine bacteria detection by automated method Ordered By: Randolph Velasquez on 72-77-5574Zvyakauu Auto Ql (U)None seenNone Seen [facility], [facility] ShawUrine clarity by refractometry automatedOrdered By: Randolph Velasquez on 18-33-2306Rkrtzxs Refractometry automated (U)ClearClear [facility], [facility] ShawUrine glucose measurement by automated test strip (mass/volume)Ordered By: Randolph Velasquez on 59-72-8955Ldgyarp Auto test strip (U) [Mass/Vol]>=1000 mg/dLNormalSelect Medical Cleveland Clinic Rehabilitation Hospital, Edwin ShawUrine hemoglobin detection by automated test stripOrdered By: Randolph Velasquez on 41-79-7291Negzhjrjsv Auto test strip Ql (U)3+NegativeSelect Medical Cleveland Clinic Rehabilitation Hospital, Edwin ShawUrine leukocyte esterase detection by automated test stripOrdered By: Randolph Velasquez on 02-79-1293Nskjqajew esterase Auto test strip Ql (U)1+Negative [facility] ShawUrobilinogen Auto test strip (U) [Mass/Vol] Ordered By: Randolph Velasquez on 88-37-4327Rhhbwfaevvft (U) [Mass/Vol]Normal mg/dL NormalSelect Medical Cleveland Clinic Rehabilitation Hospital, Edwin ShawWBC Auto (Bld) [#/Vol]Ordered By: Randolph Velasquez on 68-62-8510BUY (Bld) [#/Vol]13.0 10*3/uL4.1-10.5FOhioHealth Nelsonville Health CenterpH Auto test strip (U)Ordered By: Randolph Velasquez on 19-80-1560hS (U)5.5 [pH]5.0-9.0[facility] ShawBand form neutrophils/100 WBC Manual cnt (Bld)Ordered By: Lakesha Haskins on 23-46-5695Qrda form neutrophils/100 WBC (Bld)17 %0-5FOhioHealth Nelsonville Health CenterBasophils/100 WBC Manual cnt (Bld)Ordered By: Lakesha Haskins on 61-28-4956Xgrcetwps/100 WBC (Bld)0 %0-2FOhioHealth Nelsonville Health CenterEosinophils/100 WBC Manual cnt (Bld)Ordered By: Lakesha Haskins on 43-58-3134Elvyffuoivr/100 WBC (Bld)0 %1-3FOhioHealth Nelsonville Health CenterLaboratory - Chemistry and Chemistry - challengeOrdered By: Randolph Velasquez on 47-02-3274QS7 [Moles/Vol]25.3 mmol/L23.0-27.0[facility], Edwin ShawHCO3 (Bld) [Moles/Vol]24.1 mmol/L23.0-29.0[facility], Edwin ShawLymphocytes/100 WBC Manual cnt (Bld)Ordered By: Lakesha Haskins on 09-05-2022 Lymphocytes/100 WBC (Bld)8 %18-42[facility] Metamyelocytes/100 WBC Manual cnt (Bld)Ordered By: Lakesha Haskins on 09-05-2022 Metamyelocytes/100 WBC (Bld)1 %0-0[facility] ShawMonocytes/100 WBC Manual cnt (Bld)Ordered By: Lakesha Haskins on 68-25-3700Pvpseilyx/100 WBC (Bld)8 %2-11[facility] ShawNo Panel InformationOrdered By: Randolph Velasquez on 92-30-8394Utcbiqqz Blood Base Excess0.3 mmol/L-3.0-3.0[facility] ShawArterial Blood Oxygen Content8.3 mmol/L6.6-9.7FOhioHealth Nelsonville Health CenterArterial Blood Oxygen Psselbuybk53.6 %95.0-100.0[facility], Edwin ShawArterial Blood Partial Pressure CO236.7 mm[Hg]35.0-45.0 [facility], Edwin ShawArterial Blood Partial Pressure O275.3 mm[Hg] 80.0-100.0[facility] Edwin ShawArterial Blood pH7.447.35-7.45 [facility] ShawBlood Gas Critical ValueSee commentSelect Medical Cleveland Clinic Rehabilitation Hospital, Edwin ShawComment on above:Critical Value called on: 09/05/2022 at 11:59Blood Gas Liter Flow2 L/minSelect Medical Cleveland Clinic Rehabilitation Hospital, Edwin ShawBlood Gas Sample SiteRight brachialSelect Medical Cleveland Clinic Rehabilitation Hospital, Edwin ShawFiO232 %[facility] ShawOxygen Delivery DeviceNasal cannulaPremier Health Miami Valley Hospitalegmented neutrophils/100 WBC Manual cnt (Bld)Ordered By: Lakesha Haskins on 33-07-8192Eyrhnngzj neutrophils/100 WBC (Bld)66 %50-70[facility], Edwin ShawTroponin I.cardiac [Mass/volume] in Serum or Plasma by High sensitivity methodOrdered By: Lakesha Haskins on 44-45-1255Ccqktkpt I.cardiac High sensitivity method [Mass/Vol]97 pg/mL0-20[facility] Comment on above:Results calledat 0640 on 09/05/22ACETONE SERUMon 09-04-2022 ACETONENegativeNormalNEGATIVEThe [facility] Medical CenterComment on above:Performed By: #### ACETON #### [facility] [address] [place], [place] [address] Dr. Luis Manuel Bates 97-69-5866Ikgxrgoozjp peptide B (Bld) [Mass/Vol]1464.0 pg/mLNormal<=1,800.0The [facility] Medical CenterComment on above:Performed By: #### VITAD #### [facility] [address] [place] [address] Dr. Luis Manuel Denton W MANUAL DIFFon 96-56-1306KGBDNQGW LYMPH #NormalThe Austin HospitalComment on above:Performed By: #### RENETTA #### [facility] [address] [place] [address] Dr. Luis Manuel AsherATYPICAL LYMPH %NormalThe Austin HospitalComment on above: Performed By: #### RENETTA #### [facility] [address] [place] [address] Dr. Luis Manuel Maravilla #0.7 103/ulCritically high0.0-0.3The [facility] Comment on above:Performed By: #### RENETTA #### [facility] [address] [place] [address] Dr. Luis Manuel Maravilla %6 %Critically high0-5The [facility] HospitalComment on above: Performed By: #### RENETTA #### [facility] [address] [place] [address] Dr. Luis Manuel Gerard #0.00 103/ulNormal0.00-0.10The [facility] CenterComment on above:Performed By: #### RENETTA #### [facility] [address] [place] [address] Dr. Luis Manuel Gerard %0.0 %Critically low0.2-2.0The [facility] Medical CenterComment on above:Performed By: #### RENETTA #### [facility] [address] [place] [address] Dr. Luis Manuel Moncada #NormalThe Austin HospitalComment on above:Performed By: #### RENETTA #### [facility] [address] [place] [address] Dr. Luis Manuel Moncada %NormalLancaster Municipal Hospital HospitalComment on above:Performed By: #### RENETTA #### [facility] [address] [place] [address] Dr. Luis Manuel AsherCORRECTED WBCNormal4.0-11.0The [facility] HospitalComment on above: Performed By: #### RENETTA #### [facility] [address] [place] [address] Dr. Luis Manuel Peoples #0.00 103/ulNormal0.00-0.70The [facility] Medical CenterComment on above:Performed By: #### RENETTA #### [facility] [address] [place] [address] Dr. Luis Manuel Peoples%0.0 %Critically low0.9-7.0The [facility] Medical CenterComment on above:Performed By: #### RENETTA #### [facility] [address] [place] [address] Dr. Luis Manuel AcevedoT41.3 %Critically low42.0-54.0The [facility] Medical CenterComment on above:Performed By: #### RENETTA #### [facility] [address] [place] [address] Dr. Luis Manuel AsherHGB13.6 g/dlCritically low14.0-18.0The [facility] Medical CenterComment on above:Performed By: #### RENETTA #### [facility] [address] [place] [address] Dr. Luis Manuel Nelson #0.79 103/ulCritically low1.20-3.80[facility] Comment on above:Performed By: #### RENETTA #### [facility] [address] [place] [address] Dr. Luis Manuel Nelson%7.0 %Critically low20.5-60.0The [facility] Medical CenterComment on above:Performed By: #### RENETTA #### [facility] [address] [place] [address] Dr. Luis Manuel MartinezH30.4 mzWgvnzs27.9-34.0The [facility] CenterComment on above: Performed By: #### CBCYAMILETH #### [facility] [address] [place] [address] Dr. Luis Manuel MartinezHC32.9 g/zwMigyhx96.9-35.2The [facility] Medical CenterComment on above:Performed By: #### RENETTA #### [facility] [address] [place] [address] Dr. Luis Manuel MartinezV92.2 fFGrsfvb88.0-94.0The [facility] Medical CenterComment on above: Performed By: #### RENETTA #### [facility] [address] [address] [address] Luis Manuel SalcidoOCYTE #NormalBarney Children'S Medical CenterComment on above: Performed By: #### RENETTA #### [facility] [address] [address] [address] Luis Manuel SalcidoOCYTE %NormalLancaster Municipal Hospital HospitalComment on above: Performed By: #### RENETTA #### [facility] [address] [address] [address] Luis Manuel Benito#1.36 103/ulCritically high0.30-0.80The [facility] on above:Performed By: #### RENETTA #### [facility] [address] [place] [address] Dr. Luis Manuel Benito%12.0 %Normal1.7-12.0The [facility] Medical CenterComment on above: Performed By: #### RENETTA #### [facility] [address] [place] [address] Dr. Luis Manuel AsherMPV10.0 fLNormal9.5-13.5The [facility] CenterCompromedica cold[facility] on above: Performed By: #### RENETTA #### [facility] [address] [place] [address] Dr. Luis Manuel Haro #NormalBarney Children'S Medical CenterComment on above:Performed By: #### RENETTA #### [facility] [address] [place] [address] Dr. Luis Manuel WolfOCYTE %NormalBarney Children'S Medical CenterComment on above:Performed By: #### RENETTA #### [facility] [address] [place] [address] Dr. Luis Manuel AsherNRBCNormalThTrinity Health System West CampusComment on above:Performed By: #### RENETTA #### [facility] [address] [address] [address] Luis Manuel AsherPLT251 103/cmTkvaln757-222Wgn [facility] CenterComment on above: Performed By: #### CBCMAN #### [facility] [address] [address] [address] Luis Manuel DamonC4.48 106/ulCritically low4.70-6.10The [facility] Medical CenterComment on above:Performed By: #### CBCMAN #### [facility] [address] [address] [address] Luis Manuel AtwoodW13.4 %Gbxbmc11.0-15.0The Austin HospitalComment on above: Performed By: #### CBCYAMILETH #### [facility] [address] [address] [address] Luis Manuel Sánchez #8.47 103/ulCritically high1.40-6.50The [facility] Comment on above:Performed By: #### CBCYAMILETH #### [facility] [address] [place] [address] Dr. Luis Manuel Sánchez %75.0 %Elmrjz64.0-75.0The [facility] Medical CenterComment on above: Performed By: #### CBCYAMILETH #### [facility] [address] [address] [address] Luis Manuel MedleyBC11.3 103/ulCritically high4.0-11.0The [facility] CenterComment on above:Performed By: #### CBCYAMILETH #### [facility] [address] [place] [address] Dr. Luis Manuel Frazier BLOODon 57-40-2534Ieesujrgzop examination of blood, cultureCulture Observations: NO GROWTH AT 5 DAYS.NormalThe [facility] Medical CenterComment on above:Performed By: #### VITAD #### [facility] [address] [place] [address] Dr. Luis Manuel AsherMicroscopic examination of blood, cultureCulture Observations: NO GROWTH AT 5 DAYS.NormalThe [facility] Medical CenterComment on above:Performed By: #### VITAD #### [facility] [address] [place] [address] Dr. Luis Manuel Pa-19 PCR ([facility])on 87-42-5447UKUK-CoV-2 (COVID-19) RNA ABE+probe Ql (Unsp spec)Not detectedNormalNOT DETECTEDBarney Children'S Medical Center Comment on above:Result Comment: When diagnostic testing [...] for this test is supported by the [place] of Health and Human Service's declaration that [...] longer be used).Performed By: #### VITAD #### [facility] [address] [place] [address] Dr. Luis Manuel Stevens A AND B AGon [id number] [facility]zer HospitalComment on above:Result Comment: Negative for Flu A protein angiten. Infection due to Flu A cannot be ruled out. FluA angiten in the sample may be below the detection limit of the test.Performed By: #### ACETON #### [facility] [address] [place] [address] Dr. Luis Manuel AsherINFLUBNEGHSTELMA [facility] on above: Result Comment: Negative for Flu B protein antigen. Infection due to Flu B cannot be ruled out. FluB antigen in the sample may be below the detection limit of the test.Performed By: #### ACETON #### [facility] [address] [place] [address] Dr. Luis Manuel Dorantes AGNegativeNormalNEGATIVE SEE COMMENTThe [facility] on above:Performed By: #### ACETON #### [facility] [address] [address] [address] Luis Manuel AsherINFLUEKERRI Lechuga AGNegativeNormalNEGATIVE SEE COMMENTThe [facility] CenterComment on above:Performed By: #### ACETON #### [facility] [address] [place] [address] Dr. Luis Manuel AsherLACTATE/LACTIC ACIDon 17-33-4460Evaclma [Moles/Vol]4.0 mmol/L Critically high0.4-1.9The [facility] Medical CenterComment on above:Performed By: #### LACT #### [facility] [address] [place] [address] Dr. Luis Manuel AsherLaboratory - Chemistry and Chemistry - challengeOrdered By: Lakesha Haskins on 61-13-0255Zlraibqmrua peptide B (Bld) [Mass/Vol]200.0 pg/mL5-100 [facility] Edwin ShawMyelocytes/100 WBC Manual cnt (Bld)Ordered By: Lakesha Haskins on 74-68-7520Hzhnvvevjo/100 WBC (Bld)4 %0-0[facility] ShawPOINT OF CARE GLUCOSEon 76-63-5797Dmdjogn [Mass/Vol]362 mg/dL Critically mgoi95-935Jxi [facility] CenterComment on above:Performed By: #### POCGLUC #### [facility] [address] [place] [address] Dr. Luis Manuel AsherGlucose [Mass/Vol]352 mg/dLCritically mhve05-200Cqr [facility] CenterComment on above:Performed By: #### VITAD #### [facility] [address] [place] [address] Dr. Luis Manuel AsherPROF 14(COMP METB)on 55-57-5402Iiitlqr [Mass/Vol]2.6 g/dL Critically low3.4-5.0The [facility] CenterComment on above:Performed By: #### VITAD #### [facility] [address] [place] [address] Dr. Luis Manuel AsherAlbumin/Globulin [Mass ratio]0.5 {ratio}NormalThe [facility] Medical CenterComment on above:Performed By: #### VITAD #### [facility] [address] [address] [address] Luis Manuel Colin [Catalytic activity/Vol]163 U/LCritically hxgf00-783Opc [facility] CenterComment on above:Performed By: #### VITAD #### [facility] [address] [address] [address] Luis Manuel CadenaT [Catalytic activity/Vol]98 U/LCritically vnze83-04Edg [facility] CenterComment on above:Performed By: #### VITAD #### [facility] [address] [address] [address] Luis Manuel Greene gap [Moles/Vol]14.9 mmol/LNormalThe [facility] Comment on above:Performed By: #### VITAD #### [facility] [address] [address] [address] Luis Manuel AsherAST [Catalytic activity/Vol]57 U/LCritically garw11-35Djr [facility] CenterComment on above:Performed By: #### VITAD #### [facility] [address] [address] [address] Luis Manuel AsherBilirubin [Mass/Vol]0.4 mg/dLNormal0.2-1.0[facility] Comment on above:Performed By: #### VITAD #### [facility] [address] [address] [address] Luis Manuel AsherCalcium [Mass/Vol]9.4 mg/dLNormal8.5-10.1[facility] Comment on above:Performed By: #### VITAD #### [facility] [address] [address] [address] Luis Manuel AsherChloride [Moles/Vol]100 mmol/VOsljlu90-310Pny [facility] Comment on above:Performed By: #### VITAD #### [facility] [address] [address] [address] Luis Manuel AsherCO2 [Moles/Vol]27.2 mmol/RWqxoyr97.0-32.0The [facility] Comment on above:Performed By: #### VITAD #### [facility] [address] [address] [address] Luis Manuel AsherCreatinine [Mass/Vol]1.45 mg/dLCritically high0.70-1.30The [facility] CenterComment on above:Performed By: #### VITAD #### [facility] [address] [address] [address] Luis Manuel ClayGFR-AF ONUTIQMF39 mL/min/1.96g3Rhttzbmgih low>=60The [facility] CenterComment on above:Performed By: #### VITAD #### [facility] [address] [address] [address] Luis Manuel ClayGFR-NON AF YSLUZMRA26 mL/min/1.21q0Gytfipqowv low>=60The [facility] CenterComment on above:Performed By: #### VITAD #### [facility] [address] [place] [address] Dr. Luis Manuel AsherGlobulin (S) [Mass/Vol]4.9 g/dLNormalThe [facility] CenterComment on above:Performed By: #### VITAD #### [facility] [address] [place] [address] Dr. Luis Manuel AsherGlucose [Mass/Vol]396 mg/dLCritically lqfk45-544Mwz [facility] CenterComment on above:Performed By: #### VITAD #### [facility] [address] [place] [address] Dr. Luis Manuel AsherPotassium [Moles/Vol]4.1 mmol/LNormal3.5-5.1The [facility] Comment on above:Performed By: #### VITAD #### [facility] [address] [place] [address] Dr. Luis Manuel AsherProtein [Mass/Vol]7.5 g/dLNormal6.4-8.2The [facility] Comment on above:Performed By: #### VITAD #### [facility] [address] [address] [address] Luis Manuel AsherSodium [Moles/Vol]138 mmol/HOxjvrq521-439Vcg [facility] Comment on above:Performed By: #### VITAD #### [facility] [address] [address] [address] Luis Manuel Jones nitrogen [Mass/Vol]26.0 mg/dLCritically high7.0-18.0The [facility] CenterComment on above:Performed By: #### VITAD #### [facility] [address] [address] [address] Luis Manuel AsherUrea nitrogen/Creatinine [Mass ratio]17.9 mg/mgNormalThe [facility] CenterComment on above:Performed By: #### VITAD #### [facility] [address] [address] [address] Luis Manuel AsherPlasma cells/100 leukocytes in Blood by Manual countOrdered By: Lakesha Haskins on 67-19-4529Knshrx cells/100 WBC Manual cnt (Bld)1 %[address] StreetPromyelocytes/100 WBC Manual cnt (Bld)Ordered By: Lakesha Haskins on 98-33-9156Ldrtcdlmbcyic/100 WBC (Bld)1 %[address] StreetTROPONIN, HIGH SENSITIVITYon 50-05-2149KTGYQV577.9 pg/mLCritically high 4.0-76.1The [facility] CenterComment on above:Result Comment: CUT-OFF POINTS HAVE BEEN ESTABLISHED BASED ON THE FOURTH UNIVERSAL DEFINITIONS OF MYOCARDIAL INFARCTION. THE UPPER REFERENCE LIMIT (URL) OF TROPONIN, DEFINED THE 99TH PERCENTILE OF cTnI DISTRIBUTION IN A REFERENCE POPULATION, HAS BEEN CONFIRMED THE DECISION THRESHOLD FOR [place] DIAGNOSIS.Performed By: #### VITAD #### [facility] [address] [address] [address] Luis Manuel Gibson lactic acid measurementOrdered By: Lakesha Haskins on 68-60-7932Znepoto (U) [Moles/Vol]1.6 mmol/L0.5-2.2FOhioHealth Nelsonville Health CenterXR CHEST 1 Von 33-62-6303JQ CHEST 1 VONE-VIEW CHEST RADIOGRAPH, 09/04/2022 4:55 PM EST COMPARISON: Chest, 11/02/2020. CLINICAL HISTORY: SHORTNESS OF BREATH/weakness and confusion. Findings and impression: 1. Some questionable interstitial pulmonary edema suspected. Some underlying inflammatory or infectious pneumonitis cannot be excluded. 2. Borderline heart size. 3. No acute osseous abnormality. Electronically authenticated by: Gael KENNEY Date: 2022-09-04 17:54NormalThTrinity Health System West CampusMICROALBUMIN URINEon 31-58-3791Sykuvnm, Urine30.0 ug/mLNormal Not Estab.The [facility] CenterComment on above:Performed By: #### ACETON #### [facility] [address] [address] [address] Luis Manuel Denton AUTO DIFFon 49-45-6228CAZP #0.0 103/ulNormal0.0-0.1The [facility] CenterComment on above:Performed By: #### CBC #### [facility] [address] [place] [address] Dr. Luis Manuel AsherBasophils/100 WBC (Bld)0.5 %Normal0.2-2.0The [facility] Comment on above:Performed By: #### CBC #### [facility] [address] [address] [address] Luis Manuel Montenegro #0.1 103/ulNormal0.0-0.7The [facility] CenterComment on above: Performed By: #### CBC #### [facility] [address] [place] [address] Dr. Luis Manuel Clayosinophils/100 WBC (Bld)1.4 %Normal0.9-7.0The [facility] Comment on above:Performed By: #### CBC #### [facility] [address] [place] [address] Dr. Luis Manuel Clayrythrocyte distribution width (RBC) [Ratio]13.1 %Bcehii26.0-15.0 The [facility] Medical CenterComment on above:Performed By: #### CBC #### [facility] [address] [place] [address] Dr. Luis Manuel AsherHematocrit (Bld) [Volume fraction]39.3 %Critically low42.0-54.0 The [facility] Medical CenterComment on above:Performed By: #### CBC #### [facility] [address] [address] [address] Luis Manuel AsherHemoglobin (Bld) [Mass/Vol]13.3 g/dLCritically low14.0-18.0The [facility] CenterComment on above:Performed By: #### CBC #### [facility] [address] [place] [address] Dr. Luis Manuel Negron #0.02 10e3/ulNormal0.00-0.03The [facility] CenterComment on above:Performed By: #### CBC #### [facility] [address] [place] [address] Dr. Luis Manuel Negron %0.3 %Normal0.0-0.5The [facility] CenterComment on above: Performed By: #### CBC #### [facility] [address] [place] [address] Dr. Luis Manuel Kiran #0.6 103/ulCritically low1.2-3.8The [facility] Comment on above:Performed By: #### CBC #### [facility] [address] [place] [address] Dr. Luis Manuel Joycehocytes/100 WBC (Bld)9.1 %Critically low20.5-60.0The [facility] CenterComment on above:Performed By: #### CBC #### [facility] [address] [place] [address] Dr. Luis Manuel MarieUAL DIFF REQNONormalThe [facility] CenterComment on above: Performed By: #### CBC #### [facility] [address] [place] [address] Dr. Luis Manuel Martinez (RBC) [Entitic mass]31.0 awVsrkxv92.9-34.0The [facility] CenterComment on above:Performed By: #### CBC #### [facility] [address] [place] [address] Dr. Luis Manuel Martinez (RBC) [Mass/Vol]33.8 g/eTAccqsu83.9-35.2The [facility] CenterComment on above:Performed By: #### CBC #### [facility] [address] [address] [address] Luis Manuel MartinezV (RBC) [Entitic vol]91.6 bVIrktil44.0-94.0The [facility] CenterComment on above:Performed By: #### CBC #### [facility] [address] [place] [address] Dr. Luis Manuel Randle #0.7 103/ulNormal0.3-0.8The [facility] HospitalComment on above:Performed By: #### CBC #### [facility] [address] [place] [address] Dr. Luis Manuel Hassanocytes/100 WBC (Bld)10.3 %Normal1.7-12.0The [facility] Comment on above:Performed By: #### CBC #### [facility] [address] [place] [address] Dr. Luis Manuel PhanUT #5.0 103/ulNormal1.4-6.5The [facility] CenterComment on above:Performed By: #### CBC #### [facility] [address] [place] [address] Dr. Luis Manuel Phanutrophils/100 WBC (Bld)78.4 %Critically high43.0-75.0The [facility] CenterComment on above:Performed By: #### CBC #### [facility] [address] [place] [address] Dr. Luis Manuel Chunlet mean volume (Bld) [Entitic vol]9.7 fLNormal9.5-13.5The [facility] CenterComment on above:Performed By: #### CBC #### [facility] [address] [place] [address] Dr. Luis Manuel AsherPLT148 103/ulCritically jni364-721Xpu [facility] CenterComment on above:Performed By: #### CBC #### [facility] [address] [place] [address] Dr. Luis Manuel AsherRBC4.29 106/ulCritically low4.70-6.10The [facility] CenterComment on above:Performed By: #### CBC #### [facility] [address] [address] [address] Luis Manuel AsherWBC6.4 103/ulNormal4.0-11.0The [facility] CenterComment on above: Performed By: #### CBC #### [facility] [address] [address] [address] Luis Manuel AsherGLYCOHEMOGLOBIN A1Con 90-21-4298AWC RECOMMENDATIONSEE BELOWNormal The [facility] Medical CenterComment on above:Result Comment: ADA RECOMMENDED LIMIT 4.0 - 6.0 ADA THERAPEUTIC TARGET < 7.0 ACTION SUGGESTED > 7.0Performed By: #### ACETON #### [facility] [address] [place] [address] Dr. Luis Manuel AsherGlucose [Mass/Vol]169 mg/dLNormalThe [facility] CenterComment on above:Performed By: #### ACETON #### [facility] [address] [place] [address] Dr. Luis Manuel AsherHbA1c (Bld) [Mass fraction]7.5 %Critically high4.5-6.2The [facility] CenterComment on above:Performed By: #### ACETON #### [facility] [address] [place] [address] Dr. Luis Manuel AsherPROF CHEM 8 (BAS METB)on 60-20-0051Xzzvr gap [Moles/Vol]7.8 mmol/LNormalThe [facility] CenterComment on above:Performed By: #### BMP #### [facility] [address] [place] [address] Dr. Luis Manuel AsherCalcium [Mass/Vol]8.3 mg/dLCritically low8.5-10.1The [facility] CenterComment on above:Performed By: #### BMP #### [facility] [address] [place] [address] Dr. Luis Manuel AsherChloride [Moles/Vol]97 mmol/LCritically lem61-147Smz [facility] CenterComment on above:Performed By: #### BMP #### [facility] [address] [address] [address] Luis Manuel AsherCO2 [Moles/Vol]29.6 mmol/JHswmhd22.0-32.0The [facility] Comment on above:Performed By: #### BMP #### [facility] [address] [address] [address] Luis Manuel AsherCreatinine [Mass/Vol]1.36 mg/dLCritically high0.70-1.30The [facility] CenterComment on above:Performed By: #### BMP #### [facility] [address] [address] [address] Issa ChangEGFR-AF MACEDONIAN>60Normal>=60The [facility] CenterComment on above:Performed By: #### BMP #### [facility] [address] [place] [address] Dr. Luis Manuel ClayGFR-NON AF GJOSTEAO95 mL/min/1.09g7Jhdghnoexa low>=60The [facility] CenterComment on above:Performed By: #### BMP #### [facility] [address] [place] [address] Dr. Luis Manuel AsherGlucose [Mass/Vol]331 mg/dLCritically cifu68-580Dmp [facility] CenterComment on above:Performed By: #### BMP #### [facility] [address] [place] [address] Dr. Luis Manuel AsherPotassium [Moles/Vol]4.4 mmol/LNormal3.5-5.1The [facility] Comment on above:Performed By: #### BMP #### [facility] [address] [address] [address] Luis Manuel AsherSodium [Moles/Vol]130 mmol/LCritically jqo567-884Ihn [facility] CenterComment on above:Performed By: #### BMP #### [facility] [address] [address] [address] Luis Manuel AsherUrea nitrogen [Mass/Vol]15.0 mg/dLNormal7.0-18.0The [facility] CenterComment on above:Performed By: #### BMP #### [facility] [address] [address] [address] Luis Manuel AsherUrea nitrogen/Creatinine [Mass ratio]11.0 mg/mgNoDetwiler Memorial HospitalComment on above:Performed By: #### BMP #### [facility] [address] [address] [address] Luis Manuel AsherFERRITINon 64-37-3981Xdbyvimw [Mass/Vol]57.0 ng/mLNormal 17.9-464.0The [facility] CenterComment on above:Performed By: #### FERR #### [facility] [address] [address] [address] Luis Manuel AsherGLYCOHEMOGLOBIN A1Con 32-93-9689SYI RECOMMENDATIONADA THERAPEUTIC TARGET 6.0 - 7.0 ACTION SUGGESTED > 7.0NoDetwiler Memorial HospitalComment on above:Performed By: #### A1C #### [facility] [address] [place] [address] Dr. Luis Manuel AsherGlucose [Mass/Vol]146 mg/dLNoDetwiler Memorial HospitalComment on above:Performed By: #### A1C #### [facility] [address] [place] [address] Dr. Luis Manuel AsherHbA1c (Bld) [Mass fraction]6.7 %Critically high<=6.0The [facility] CenterComment on above:Performed By: #### A1C #### [facility] [address] [place] [address] Dr. Luis Manuel Denton AUTO DIFFon 23-65-9388SBFA #0.0 103/ulNormal0.0-0.1The [facility] CenterComment on above:Performed By: #### VITAD #### [facility] [address] [address] [address] Luis Manuel AsherBasophils/100 WBC (Bld)0.6 %Normal0.2-2.0The [facility] Comment on above:Performed By: #### VITAD #### [facility] [address] [address] [address] Issa ChangEO #0.2 103/ulNormal0.0-0.7The [facility] CenterComment on above: Performed By: #### VITAD #### [facility] [address] [place] [address] Dr. Luis Manuel Clayosinophils/100 WBC (Bld)2.9 %Normal0.9-7.0The [facility] Comment on above:Performed By: #### VITAD #### [facility] [address] [place] [address] Dr. Luis Manuel Clayrythrocyte distribution width (RBC) [Ratio]13.1 %Ykwkeb24.0-15.0 The [facility] CenterComment on above:Performed By: #### VITAD #### [facility] [address] [place] [address] Dr. Luis Manuel AsherHematocrit (Bld) [Volume fraction]42.3 %Giagnd59.0-54.0The [facility] CenterComment on above:Performed By: #### VITAD #### [facility] [address] [place] [address] Dr. Luis Manuel AsherHemoglobin (Bld) [Mass/Vol]14.0 g/tGJmgrzx20.0-18.0The [facility] CenterComment on above:Performed By: #### VITAD #### [facility] [address] [place] [address] Dr. Luis Manuel Negron #0.02 10e3/ulNormal0.00-0.03The [facility] CenterComment on above:Performed By: #### VITAD #### [facility] [address] [place] [address] Dr. Luis Manuel Negron %0.4 %Normal0.0-0.5The [facility] CenterComment on above: Performed By: #### VITAD #### [facility] [address] [place] [address] Dr. Luis Manuel Kiran #0.8 103/ulCritically low1.2-3.8The [facility] Comment on above:Performed By: #### VITAD #### [facility] Laboratory [address] [place] [address] Dr. Luis Manuel Perezmphocytes/100 WBC (Bld)15.5 %Critically low20.5-60.0The [facility] Medical CenterComment on above:Performed By: #### VITAD #### [facility] [address] [place] [address] Dr. Luis Manuel Self DIFF REQNONormalThe [facility] Regional Medical CenterComment on above: Performed By: #### VITAD #### [facility] [address] [place] [address] Dr. Luis Manuel Martinez (RBC) [Entitic mass]30.5 ucFsjtxb49.9-34.0The [facility] CenterComment on above:Performed By: #### VITAD #### [facility] [address] [place] [address] Dr. Luis Manuel Martinez (RBC) [Mass/Vol]33.1 g/bCDfjolb81.9-35.2The [facility] CenterComment on above:Performed By: #### VITAD #### [facility] [address] [place] [address] Dr. Luis Manuel Martinez (RBC) [Entitic vol]92.2 sVNzravn30.0-94.0The [facility] CenterComment on above:Performed By: #### VITAD #### [facility] [address] [place] [address] Dr. Luis Manuel Randle #0.5 103/ulNormal0.3-0.8The [facility] CenterComment on above:Performed By: #### VITAD #### [facility] [address] [place] [address] Dr. Luis Manuel Hassanocytes/100 WBC (Bld)10.0 %Normal1.7-12.0The [facility] Comment on above:Performed By: #### VITAD #### [facility] [address] [place] [address] Dr. Luis Manuel Devi #3.6 103/ulNormal1.4-6.5The [facility] CenterComment on above:Performed By: #### VITAD #### [facility] [address] [place] [address] Dr. Luis Manuel AsherNeutrophils/100 WBC (Bld)70.6 %Qztmfi98.0-75.0The [facility] on above:Performed By: #### VITAD #### [facility] [address] [place] [address] Dr. Luis Manuel AsherPlatelet mean volume (Bld) [Entitic vol]10.1 fLNormal9.5-13.5The [facility] CenterComment on above:Performed By: #### VITAD #### [facility] [address] [place] [address] Dr. Luis Manuel AsherPLT161 103/uaHeccle326-023Ydz [facility] on above: Result Comment: smear reviewed for plateletsPerformed By: #### VITAD #### [facility] [address] [place] [address] Dr. Luis Manuel AsherRBC4.59 106/ulCritically low4.70-6.10The [facility]Comp[facility] on above:Performed By: #### VITAD #### [facility] [address] [place] [address] Dr. Luis Manuel AsherWBC5.1 103/ulNormal4.0-11.0The [facility] on above: Performed By: #### VITAD #### [facility] [address] [place] [address] Dr. Luis Manuel AsherPROF 14(COMP METB)on [id number] [Mass/Vol]3.9 g/dLNormal 3.5-5.0The [facility] CenterComment on above:Performed By: #### TSH, CMP #### [facility] [address] [place] [address] Dr. Luis Manuel AsherAlbumin/Globulin [Mass ratio]1.2 {ratio}NormalThe [facility] on above:Performed By: #### TSH, CMP #### [facility] [address] [place] [address] Dr. Luis Manuel CadenaP [Catalytic activity/Vol]85 U/RWpvikh22-239Grl [facility] CenterComment on above:Performed By: #### TSH, CMP #### [facility] [address] [address] [address] Luis Manuel Gurrola [Catalytic activity/Vol]28 U/DNcrmva46-93Mhu [facility] CenterComment on above:Performed By: #### TSH, CMP #### [facility] [address] [address] [address] Luis Manuel Quanon gap [Moles/Vol]8.6 mmol/LNormalThe [facility] Medical CenterComment on above:Performed By: #### TSH, CMP #### [facility] [address] [place] [address] Dr. Luis Manuel AsherAST [Catalytic activity/Vol]14 U/LCritically mif40-04Aix [facility] CenterComment on above:Performed By: #### TSH, CMP #### [facility] [address] [place] [address] Dr. Luis Manuel AsherBilirubin [Mass/Vol]0.4 mg/dLNormal0.2-1.3TBl[facility] Comment on above:Performed By: #### TSH, CMP #### [facility] [address] [place] [address] Dr. Luis Manuel AsherCalcium [Mass/Vol]9.7 mg/dLNormal8.4-10.2[facility] Comment on above:Performed By: #### TSH, CMP #### [facility] [address] [place] [address] Dr. Luis Manuel AsherChloride [Moles/Vol]99 mmol/JMxotkk52-884Hbv [facility] Comment on above:Performed By: #### TSH, CMP #### [facility] [address] [place] [address] Dr. Luis Manuel AsherCO2 [Moles/Vol]32.2 mmol/LCritically high22.0-30.0The [facility] CenterComment on above:Performed By: #### TSH, CMP #### [facility] [address] [place] [address] Dr. Yilan ChangCreatinine [Mass/Vol]1.20 mg/dLNormal0.66-1.25The [facility] CenterComment on above:Performed By: #### TSH, CMP #### [facility] [address] [place] [address] Dr. Luis Manuel ClayGFR-AF MACEDONIAN>60Normal>=60The [facility] CenterComment on above:Performed By: #### TSH, CMP #### [facility] [address] [address] [address] Luis Manuel ClayGFR-NON AF YHAUDGLF07 mL/min/1.35b9Zmmubjedpl low>=60The [facility] CenterComment on above:Performed By: #### TSH, CMP #### [facility] [address] [place] [address] Dr. Luis Manuel AsherGlobulin (S) [Mass/Vol]3.2 g/dLNormalThe [facility] CenterComment on above:Performed By: #### TSH, CMP #### [facility] [address] [place] [address] Dr. Luis Manuel AsherGlucose [Mass/Vol]135 mg/dLCritically klks77-916XiuBarney Children'S Medical CenterComment on above:Performed By: #### TSH, CMP #### [facility] [address] [place] [address] Dr. Luis Manuel AsherPotassium [Moles/Vol]4.8 mmol/LNormal3.4-5.0[facility] Comment on above:Performed By: #### TSH, CMP #### [facility] [address] [place] [address] Dr. Luis Manuel AsherProtein [Mass/Vol]7.1 g/dLNormal6.1-8.2[facility] Comment on above:Performed By: #### TSH, CMP #### [facility] [address] [place] [address] Dr. Luis Manuel AsherSodium [Moles/Vol]135 mmol/LCritically dwt661-869Ohu [facility] Medical CenterComment on above:Performed By: #### TSH, CMP #### [facility] [address] [place] [address] Dr. Luis Manuel Jones nitrogen [Mass/Vol]19.0 mg/dLNormal9.0-20.0[facility]S Medical CenterComment on above:Performed By: #### TSH, CMP #### [facility] [address] [place] [address] Dr. Luis Manuel Jones nitrogen/Creatinine [Mass ratio]15.8 mg/mgNoDetwiler Memorial HospitalComment on above:Performed By: #### TSH, CMP #### [facility] [address] [place] [address] Dr. Luis Manuel GuzmanHocatrachita 44-88-3704VKA4.146 uIU/mLNormal0.470-4.680The [facility] CenterComp[facility] on above:Performed By: #### VITAD #### [facility] [address] [place] [address] Dr. Luis Manuel Guzman GALI BELOWCoshocton Regional Medical CenterComment on above: Result Comment: <0.34 UIU/ml HYPERTHYROID 0.34-5.60 UIU/ml EUTHYROID >5.60 UIU/ml HYPOTHYROIDPerformed By: #### VITAD #### [facility] [address] [place] [address] Dr. Luis Manuel AsherVITAMIN D 25 OHon 57-06-4793GJE D 25-OH84.6 ng/mLNormalBarney Children'S Medical CenterCompromedica [facility] on above:Performed By: #### VITAD #### [facility] [address] [place] [address] Dr. Luis Manuel TALBERTValentine Holzer HospitalComment on above: Result Comment: <20 ng/mL Vit D deficient 20 - <30 ng/mL Vit D insufficient 30 - 100 ng/mL Vit D sufficient >100 ng/mL Potential ToxicityPerformed By: #### VITAD #### [facility] [address] [place] [address] Dr. Luis Manuel Asher Vital Signs Date TimeVital SignValuePerforming TkeetcuglGvpwqird35-99-9975 11:59-0400Body cssyzg307.34 cmBenjamin Ball DO Work Phone: 1(419)[address]09-16-2025 11:59-0400 Body mass index (BMI) [Ratio]33 kg/s7Bnoyqcyl Ball DO Work Phone: 1419)[address] [place], [place] 4981709-16-2025 11:59-0400 Body ydohvk807.55 kgBenjamin Ball DO Work Phone: 1419)[address] [place], [place] 4981709-16-2025 11:59-0400 Diastolic blood ggtxmwaf37 mm[Hg]Erich Ball DO Work Phone: 1419)[address] [place], [place] 4981709-16-2025 11:59-0400 Heart rate89 /minBenjamin Ball DO Work Phone: 1419)[address] [place], [place] 4981709-16-2025 11:59-0400 Respiratory rate12 /minBenjamin Ball DO Work Phone: 1419)[address] [place], [place] 4981709-16-2025 11:59-0400 Systolic blood kulzzgal441 mm[Hg]Erich Ball DO Work Phone: 1419)[address] [place], [place] 4981708-22-2025 11:00-0400 Body kyxhsi073.34 cmBenjamin Ball DO Work Phone: 1(701)[address] [place], [place] 4981708-22-2025 11:00-0400 Body mass index (BMI) [Ratio]33.2 kg/t8Fwlgqvwb Ball DO Work Phone: 1(106)[address] [place], [place] 4981708-22-2025 11:00-0400 Body kapspx308.95 kgBenjamin Ball DO Work Phone: 1419)[address] [place], [place] 4981708-22-2025 11:00-0400 Diastolic blood vhetkrok81 mm[Hg]Erich Ball DO Work Phone: 1419)[address] [place], [place] 4981708-22-2025 11:00-0400 Heart rate88 /minBenjamin Ball DO Work Phone: 1419)[address] [place], [place] 4981708-22-2025 11:00-0400 Respiratory rate14 /minBenjamin Ball DO Work Phone: [phone])[address]08-22-2025 11:00-0400 SaO2% (BldA) [Mass fraction]98 %Erich Ball DO Work Phone: 1419)[address] [place], [place] 4981708-22-2025 11:00-0400 Systolic blood owvmeypn735 mm[Hg]Erich Ball DO Work Phone: 1419)[address] [place], [place] 4981708-11-2025 13:00-0400 Body plvcid934.34 cmBenjamin Ball DO Work Phone: 1(419)[address] [place], [place] 4981708-11-2025 13:00-0400 Body mass index (BMI) [Ratio]33.5 kg/c3Qfectdts Ball DO Work Phone: 1(419)[address] [place], [place] 4981708-11-2025 13:00-0400 Body wvhayp348.86 kgBenjamin Ball DO Work Phone: 1419)[address] [place], [place] 4981708-11-2025 13:00-0400 Diastolic blood ysiuvjhm19 mm[Hg]Erich Ball DO Work Phone: 1(419)[address] [place], [place] 4981708-11-2025 13:00-0400 Heart rate84 /minBenjamin Ball DO Work Phone: 1(107)[address] [place], [place] 4981708-11-2025 13:00-0400 Respiratory rate16 /minBenjamin Ball DO Work Phone: 1(419)[address] [place], [place] 4981708-11-2025 13:00-0400 SaO2% (BldA) [Mass fraction]93 %Erich Ball DO Work Phone: 1(419)[address] [place], [place] 4981708-11-2025 13:00-0400 Systolic blood glndxyeq449 mm[Hg]Erich Ball DO Work Phone: 1419)[address] [place], [place] 4981705-22-2025 10:36-0400 Body .88 cmBenjamin Ball DO Work Phone: 1419)[address] [place], [place] 4981705-22-2025 10:36-0400 Body mass index (BMI) [Ratio]33.3 kg/z1Mnhmvzjk Ball DO Work Phone: 1(419)[address] [place], [place] 4981705-22-2025 10:36-0400 Body .35 kgBenjamin Ball DO Work Phone: 1(419)[address] [place], [place] 4981705-22-2025 10:36-0400 Diastolic blood nfwizkok17 mm[Hg]Erich Ball DO Work Phone: 1(419)[address] [place], [place] 4981705-22-2025 10:36-0400 Heart rate83 /minBenjamin Ball DO Work Phone: 1(419)[address] [place], [place] 4981705-22-2025 10:36-0400 Respiratory rate12 /minBenjamin Ball DO Work Phone: 1(419)[address] [place], [place] 4981705-22-2025 10:36-0400 Systolic blood jmbeilpl623 mm[Hg]Erich Ball DO Work Phone: 1419)[address] [place], [place] 4981704-14-2025 15:25-0400 Body tapbyg496.88 cmBenjamin Ball DO Work Phone: 1(419)[address] [place], [place] 4981704-14-2025 15:25-0400 Body mass index (BMI) [Ratio]32.3 kg/p6Qgvrdtdh Ball DO Work Phone: 1(419)[address] [place], [place] 4981704-14-2025 15:25-0400 Body aomcun688.95 kgBenjamin Ball DO Work Phone: 1(419)[address] [place], [place] 4981704-14-2025 15:25-0400 Diastolic blood tspibcvs51 mm[Hg]Erich Ball DO Work Phone: 1(419)[address] [place], [place] 4981704-14-2025 15:25-0400 Diastolic blood yhuzlntd49 mm[Hg]Erich Ball DO Work Phone: 1419)[facility] [place], [place] 9364804-14-2025 15:25-0400 Heart rate83 /minBenjamin Ball DO Work Phone: 1(419)[address] [place], [place] 4981704-14-2025 15:25-0400 Respiratory rate12 /minBenjamin Ball DO Work Phone: 1(419)[address] [place], [place] 4981704-14-2025 15:25-0400 Systolic blood wgfiyaza422 mm[Hg]Erich Ball DO Work Phone: 1419)[address] [place], [place] 4981704-14-2025 15:25-0400 Systolic blood xeohafhh351 mm[Hg]Erich Ball DO Work Phone: 1419)[address] [place], [place] 4981703-06-2025 09:02-0500 Body ejsqxn205.88 cmBenjamin Ball DO Work Phone: 1(419)[address] [place], [place] 4981703-06-2025 09:02-0500 Body mass index (BMI) [Ratio]32.3 kg/i9Oswpcfzo Ball DO Work Phone: 1(419)[address] [place], [place] 4981703-06-2025 09:02-0500 Body .95 kgBenjamin Ball DO Work Phone: 1419)[address] [place], [place] 4981703-06-2025 09:02-0500 Diastolic blood mm[Hg]Erich Ball DO Work Phone: 1(419)[address] [place], [place] 4981703-06-2025 09:02-0500 Heart rate74 /minBenjamin Ball DO Work Phone: 1(647)[address] [place], [place] 4981703-06-2025 09:02-0500 Respiratory rate20 /minBenjamin Ball DO Work Phone: 1(615)[address] [place], [place] 4981703-06-2025 09:02-0500 SaO2% (BldA) [Mass fraction]97 %Erich Ball DO Work Phone: 1(419)[address] [place], [place] 4981703-06-2025 09:02-0500 Systolic blood ztzwatsf044 mm[Hg]Erich Ball DO Work Phone: [address] [place], [place] 4981702-20-2025 11:10-0500 Diastolic blood qbeknnbo61 mm[Hg]Erich Ball DO Work Phone: 1419)[address] [place], [place] 4981702-20-2025 11:10-0500 Heart rate69 /minBenjamin Ball DO Work Phone: 1(419)483-[address] [place], [place] 9364802-20-2025 11:10-0500 Respiratory rate16 /minBenjamin Ball DO Work Phone: 1(032)[address] [place], [place] 4981702-20-2025 11:10-0500 SaO2% (BldA) [Mass fraction]96 %Erich Ball DO Work Phone: 1419)[address] [place], [place] 4981702-20-2025 11:10-0500 Systolic blood hwwxmyme114 mm[Hg]Erich Ball DO Work Phone: 1(236)[address] [place], [place] 4981702-20-2025 09:21-0500 Body zuwnin044.88 cmBenjamin Ball DO Work Phone: 1(193)[address] [place], [place] 4981702-20-2025 09:21-0500 Body mxfjwu188.22 kgBenjamin Ball DO Work Phone: 1(168)[address] [place], [place] 4981702-19-2025 11:43-0500 Body mhwkyz258.88 cmBenjamin Ball DO Work Phone: 1(645)[address] [place], [place] 4981702-19-2025 11:43-0500 Body mass index (BMI) [Ratio]32.1 kg/j2Cjkctaxh Ball DO Work Phone: 1(171)[address] [place], [place] 4981702-19-2025 11:43-0500 Body gipaiw365.67 kgBenjamin Ball DO Work Phone: 1(920)[address] [place], [place] 4981702-19-2025 11:43-0500 Diastolic blood qhhpjguv03 mm[Hg]Erich Ball DO Work Phone: 1(056)[facility] [place], [place] 9364802-19-2025 11:43-0500 Heart rate78 /minBenjamin Ball DO Work Phone: 1(887)[facility] [place], [place] 9364802-19-2025 11:43-0500 Respiratory rate20 /minBenjamin Ball DO Work Phone: 1(613)[address] [place], [place] 4981702-19-2025 11:43-0500 Systolic blood dcakeaja836 mm[Hg]Erich Ball DO Work Phone: 1([phone]02-12-2025 12:00-0500 Diastolic blood yfykhcwy95 mm[Hg]Erich Ball DO Work Phone: 1([phone]02-12-2025 12:00-0500 Heart rate85 /minBenjamin Ball DO Work Phone: 1(868)761-[address] [place], [place] 9364802-12-2025 12:00-0500 Respiratory rate20 /minBenjamin Ball DO Work Phone: 1(226)050-[address] [place], [place] 9364802-12-2025 12:00-0500 SaO2% (BldA) [Mass fraction]97 %Erich Ball DO Work Phone: 1(788)964-[address] [place], [place] 9364802-12-2025 12:00-0500 Systolic blood unawwflw333 mm[Hg]Erich Ball DO Work Phone: 1(541)[facility] [place], [place] 9364802-12-2025 08:00-0500 Body tcvvnatcrrp95.8 [degF]Erich Ball DO Work Phone: 1(680)607-[address] [place], [place] 9364802-12-2025 04:27-0500 Body lovmfh824.6 kgBenjamin Ball DO Work Phone: 1(461)146-[address] [place], [place] 9364802-11-2025 16:00-0500 Body .88 cmBenjamin Ball DO Work Phone: 1(632)634-[address] [place], [place] 9364802-03-2025 14:35-0500 Body mass index (BMI) [Ratio]33.19 kg/d6KavuibJailyn Sepulveda CLINICAL TRIALS SPECIALIST Work Phone: [facility] CenterPcqzdnmsnt99-68-9370 14:35-0500Body ezltqz932.96 kgJailyn Sepulveda CLINICAL TRIALS SPECIALIST Work Phone: [facility] CenterYgelhnaxaq04-41-6068 14:35-0500Diastolic blood obsqirag37 mm[Hg]Jailyn Sepulveda CLINICAL TRIALS SPECIALIST Work Phone: noCox NorthGyftjiekat71-54-2064 14:35-0500Heart rate87 /min Jailyn Sepulveda CLINICAL TRIALS SPECIALIST Work Phone: 1(419)483-[address] [place], [place] [address]Xipildkuvh99-24-0242 14:35-0500Systolic blood thajywpe295 mm[Hg]Jailyn Sepulveda CLINICAL TRIALS SPECIALIST Work Phone: [facility] CenterUtacxpbetu17-47-5865 14:09-0500Body yzzkme734.34 cmSelect [facility]11-13-2024 14:09-0500Body mass index (BMI) [Ratio]33.5 kg/u5WpmrchvheSelect [facility]11-13-2024 14:09-0500Body beomvx325.03 kgSelect [facility]11-13-2024 14:09-0500Diastolic blood ymdikkkv50 mm[Hg][facility]11-13-2024 14:09-0500 Heart rate76 /[facility]11-13-2024 14:09-0500 Respiratory rate12 /[facility]11-13-2024 14:09-0500 Systolic blood lfifsqxr393 mm[Hg][facility]11-04-2024 13:05-0500Body mass index (BMI) [Ratio]33.05 kg/b8NwtikoJailyn Sepulveda CLINICAL TRIALS SPECIALIST Work Phone: [facility] CenterTglokuqzkt63-18-4198 13:05-0500Body fyondt037.5 kgJailyn Sepulveda CLINICAL TRIALS SPECIALIST Work Phone: [facility] CenterYxhvxzrwnf30-39-6828 13:05-0500Diastolic blood ylutnnwi15 mm[Hg]Jailyn Sepulveda CLINICAL TRIALS SPECIALIST Work Phone: [facility] CenterOwtjcvftqs42-73-2518 13:05-0500Heart rate75 /min Jailyn Sepulveda CLINICAL TRIALS SPECIALIST Work Phone: [facility] CenterFskoevlmtw49-85-8388 13:05-0500Systolic blood uuramnkl412 mm[Hg]Jailyn Sepulveda CLINICAL TRIALS SPECIALIST Work Phone: [facility] CenterKnjljvbmlq30-31-5469 10:11-0400Body .34 cmSelect [facility]08-06-2024 10:11-0400Body mass index (BMI) [Ratio]32.5 kg/g5UraubmmiuSelect [facility]08-06-2024 10:11-0400Body zeofcl129.68 kgSelect [facility]08-06-2024 10:11-0400Diastolic blood yzcelzcm74 mm[Hg][facility]08-06-2024 10:11-0400 Heart rate89 /[facility]08-06-2024 10:11-0400 Respiratory rate12 /[facility]08-06-2024 10:11-0400 Systolic blood lramkizu827 mm[Hg][facility]06-05-2024 11:15-0400Body figweo483.34 cmSelect [facility]06-05-2024 11:15-0400Body mass index (BMI) [Ratio]32.8 kg/i8QckybgokuSelect [facility]06-05-2024 11:15-0400Body jlykae743.65 kgSelect [facility] 02-05-2024 11:15-0400Diastolic blood kcumxspf73 mm[Hg][facility]06-05-2024 11:15-0400Heart rate84 /[facility] 02-05-2024 11:15-0400Respiratory rate12 /[facility] 02-05-2024 11:15-0400Systolic blood atxmeaxo408 mm[Hg][facility]03-06-2024 10:39-0500Body vwcpfa026.34 cmSelect [facility]03-06-2024 10:39-0500Body mass index (BMI) [Ratio]32.8 kg/t6KzdqbtrurSelect [facility]03-06-2024 10:39-0500Body .82 kgSelect [facility]03-06-2024 10:39-0500Diastolic blood mm[Hg] [facility]03-06-2024 10:39-0500Heart rate89 /[facility]03-06-2024 10:39-0500Respiratory rate20 /[facility]03-06-2024 10:39-0500Systolic blood jehpfouo516 mm[Hg] [facility]12-06-2023 10:30-0500Body bwsnxe909.34 cm Erich Ball Other [facility] [employer] Other 12-06-2023 10:30-0500Body mass index (BMI) [Ratio] 34.42 kg/k7Agqkvzjt Ball Other [employer] Other 12-06-2023 10:30-0500Body leotvp424.95 kgBenjamin Ball Other [facility] [employer] Other 12-06-2023 10:30-0500Diastolic blood derxsgot66 mm[Hg] Erich Ball Other [facility] [employer] Other 12-06-2023 10:30-0500Respiratory rate12 /minBenjamin Ball Other [facility] [employer] Other 12-06-2023 10:30-0500Systolic blood nwdaosui087 mm[Hg] Erich Ball Other [facility] [employer] Other 09-06-2023 11:00-0400Body yuljvl027.34 cmBenjamin Ball Other [facility] [employer] Other 09-06-2023 11:00-0400Body mass index (BMI) [Ratio] 34.84 kg/x1Rbytfjwy Ball Other [facility] [employer] Other 09-06-2023 11:00-0400Body kenmmk628.31 kgBenjamin Ball Other [employer] Other 09-06-2023 11:00-0400Diastolic blood tabpkyzn43 mm[Hg] Erich Ball Other [facility] [employer] Other 09-06-2023 11:00-0400Respiratory rate12 /minBenjamin Ball Other [facility] [employer] Other 09-06-2023 11:00-0400Systolic blood vrlifgfq232 mm[Hg] Erich Ball Other [facility] [employer] Other 07-10-2023 12:48-0400Body cjinay944.88 cmBenjamin E Ball Work Phone: [phone]-Gxqwr [place] [employer] [address] DO Work Phone: 1(706) 774-203207-10-2023 12:48-0400Body mass index (BMI) [Ratio] 33.92 kg/u5Sybvrdhs E Ball Work Phone: [phone]-Qpbof [place] [employer] DO Work Phone: 1(162) 716-114907-10-2023 12:48-0400Body surface area Derived from formula2.34 v0Noyacjlw E Ball Work Phone: [id number]-Wamsi [place] [employer] [address] DO Work Phone: 1(289) 528-416107-10-2023 12:48-0400Body oqizxv498.46 kgBenjamin E Ball Work Phone: [id number]-Nznmj [place] [employer] [address] DO Work Phone: 1(118) 707-554607-10-2023 12:48-0400Diastolic blood mm[Hg] Erich E Ball Work Phone: [phone]-Rzikg [place] [employer] [address] DO Work Phone: 1(235) 388-724407-10-2023 12:48-0400Heart rate78 /minBenjamin E Ball Work Phone: [phone]-Cuszw [place] [employer] [address] DO Work Phone: 1(401) 632-817307-10-2023 12:48-0400Systolic blood mm[Hg] Erich E Ball Work Phone: [phone]-Hches [place] [employer] [address] DO Work Phone: 1(532) 819-780306-06-2023 14:30-0400Body uxmxmf371.34 cmBenjamin Ball Other [facility] [employer] Other 06-06-2023 14:30-0400Body mass index (BMI) [Ratio] 35.42 kg/c5Rnvcorux Ball Other [place] [employer] Other 06-06-2023 14:30-0400Body jobqnj438.21 kgBenjamin Ball Other [facility] [employer] Other 06-06-2023 14:30-0400Diastolic blood mm[Hg] Erich Ball Other [facility] [employer] Other 06-06-2023 14:30-0400Respiratory rate12 /minBenjamin Ball Other [place] [employer] Other 06-06-2023 14:30-0400Systolic blood osfethtm821 mm[Hg] Erich Ball Other [place] [employer] Other 04-17-2023 14:49-0400Body zbbjba807.88 cmBenjamin E Ball Work Phone: [phone]-Hwgds [place] [facility] [address] DO Work Phone: 1(646) 194-386504-17-2023 14:49-0400Body mass index (BMI) [Ratio] 34.31 kg/q3Jqonybvx E Ball Work Phone: mp690-4469CB-Lwxqv [place] [facility] [address] DO Work Phone: 1(375) 648-495704-17-2023 14:49-0400Body surface area Derived from formula2.35 x9Cnpxuehz E Ball Work Phone: mp772-6092HJ-Qnnse [place] [facility] [address] DO Work Phone: 1(607) 413-835604-17-2023 14:49-0400Body eheuzr678.76 kgBenjamin E Ball Work Phone: mp340-8195TE-[facility]eeejBigfork [facility] 250 DO Work Phone: 1(450) 551-796704-17-2023 14:49-0400Diastolic blood ujrfnual80 mm[Hg] Erich E Ball Work Phone: mp792-7455OT-Gxhpb [place] [facility] DO Work Phone: 1(817) 243-278104-17-2023 14:49-0400Heart rate76 /minBenjamin E Ball Work Phone: mp059-9272QA-NqxegBigfork [facility] Hospital 250 DO Work Phone: 1(917) 294-936904-17-2023 14:49-0400Systolic blood bdqceahm458 mm[Hg] Erich E Ball Work Phone: mp064-6622AR-VifrmBigfork Valley Hospital 250 DO Work Phone: 1(808) 184-672304-11-2023 14:00-503534 1Benjamin E Ball Work Phone: mp148-0875EH-FvywuBigfork Valley Hospital [address] [place] Work Phone: Comment on above:[id number] 12:00-0400Body jyfrul531.34 cmBenjamin Ball Other [facility] [employer] Other 03-22-2023 12:00-0400Body mass index (BMI) [Ratio] 35.37 kg/h4Bngknncq Ball Other [facility] [employer] Other 03-22-2023 12:00-0400Body ljgfyi422.03 kgBenjamin Ball Other [facility] [employer] Other 03-22-2023 12:00-0400Diastolic blood idbdahug71 mm[Hg] Erich Ball Other [facility] [employer] Other 03-22-2023 12:00-0400Respiratory rate16 /minBenjamin Ball Other [facility] [employer] Other 03-22-2023 12:00-0400Systolic blood mnqdgcvy474 mm[Hg] Erich Ball Other [facility] [employer] Other 03-13-2023 10:48-0400Diastolic blood qhtsvtat71 mm[Hg] Erich E Ball Work Phone: 1(173) [phone]-Bpgaq [place] [facility] [address] DO Work Phone: 1(454) 983-394503-13-2023 10:48-0400Systolic blood bsqyxjgs614 mm[Hg] Erich E Ball Work Phone: 1(407) 943-9566513-6475HR-Ssgbo [place] [facility] 250 DO Work Phone: 1(983) 926-236403-13-2023 10:27-0400Diastolic blood mm[Hg] Erich E Ball Work Phone: 1(815) [phone]-Krzfj [place] [facility] 250 DO Work Phone: 1(972) 589-231103-13-2023 10:27-0400Systolic blood unqddfoh120 mm[Hg] Erich E Ball Work Phone: 1(997) 617-4732650-2172HJ-Xyynx [place] [facility] 250 DO Work Phone: 1(679) 811-501603-13-2023 10:22-0400Body oddxdj111.88 cmBenjamin E Ball Work Phone: 1(684) 294-8072348-2953KB-Mxhbr [place] [facility] 250 DO Work Phone: 1(437) 682-906703-13-2023 10:22-0400Body mass index (BMI) [Ratio] 34.31 kg/c1Lrqzdfzu E Ball Work Phone: 1(327) 502-8738768-3895IE-Lstzh [place] [facility] 250 DO Work Phone: 1(452) 162-950603-13-2023 10:22-0400Body surface area Derived from formula2.35 i9Uyiziskp E Ball Work Phone: mp688-6675ZN-Eymxi [place] [facility] 250 DO Work Phone: 1(980) 528-679003-13-2023 10:22-0400Body rwslyl777.76 kgBenjamin E Ball Work Phone: mp056-1322IB-Fllut [place] [facility] 250 DO Work Phone: 1(163) 197-223103-13-2023 10:22-0400Diastolic blood cijblrpg50 mm[Hg] Erich E Ball Work Phone: mp722-2270BH-Xdjwm [place] [facility] 250 DO Work Phone: 1(376) 167-596503-13-2023 10:22-0400Heart rate85 /minBenjamin E Ball Work Phone: mp224-7759NH-Dkisu [place] [facility] [address] DO Work Phone: 1(991) 647-268803-13-2023 10:22-0400Systolic blood mm[Hg] Erich E Ball Work Phone: mp789-1682ZN-Mpetz [place] [facility] [address] DO Work Phone: 1(157) 142-546002-24-2023 11:30-0500Body janbff648.34 cmBenjamin Ball Other [employer] Other 02-24-2023 11:30-0500Body mass index (BMI) [Ratio] 34.22 kg/v7Ympnhccp Ball Other [employer] Other 02-24-2023 11:30-0500Body ydxwik180.31 kgBenjamin Ball Other [employer] Other 02-24-2023 11:30-0500Diastolic blood upmywxtp91 mm[Hg] Erich Ball Other [employer] Other 02-24-2023 11:30-0500Respiratory rate16 /minBenjamin Ball Other [employer] Other 02-24-2023 11:30-6154HaU1% (BldA) [Mass fraction]97 % Erich Ball Other [facility] [employer] Other 02-24-2023 11:30-0500Systolic blood lzfbvnud742 mm[Hg] Erich Ball [facility] [employer] Other 01-08-2023 08:15-7908SjM9% (BldA) [Mass fraction]93 % Pascual PRINCE [facility]01-07-2023 11:46-0500Body wqonbktceov19.8 [degF]DO Erich Ball Work Phone: [phone]-07-2023 11:46-0500 Diastolic blood hdzosiyx46 mm[Hg]DO Erich Ball Work Phone: [phone]01-07-2023 11:46-0500 Heart rate82 /minDO Erich Ball Work Phone: [phone]01-07-2023 11:46-0500 Inhaled oxygen flow rate2 L/minDO Erich Ball Work Phone: [phone]01-07-2023 11:46-0500 Respiratory rate17 /minDO Erich Ball Work Phone: [phone]01-07-2023 11:46-0500 SaO2% (BldA) [Mass fraction]92 %DO Erich Ball Work Phone: [phone]01-07-2023 11:46-0500 Systolic blood twkfatus906 mm[Hg]DO Erich Ball Work Phone: [phone]01-07-2023 06:00-0500 Body qipcdo365.3 kgDO Erich Ball Work Phone: [phone]01-04-2023 15:05-0500 Body nrpneh949.34 cmDO Erich Ball Work Phone: [phone] Encounters Encounter DateEncounter TypeCare ProviderFacilityStart: 68-91-0822itxffuodld Carlos A Hamilton COOKFacility:EU [place]walkStart: 05-18-2025 End: 85-01-4387iyiedfirldPfmwnzen Ball DO Work Phone: [facility] Work Phone: Start: 05-18-2025 End: 36-01-7477Skzufkx encounter procedureBenjamin Ball DO-[facility] Work Phone: Start: 92-51-2070Fshzsuxrjd Recurringangelina Hurst MDCancer Center Acute Work Phone: Start: 47-77-8684ncsbrlapinPli Yaser Al-Marrawi [facility]: 04-23-2025 End: 50-68-8984glhiyjzoseOddepqsq Ball DO Work Phone: [facility] Work Phone: Start: 04-23-2025 End: 20-71-9312Zbxrqch encounter procedureBenjamin Ball DO-[facility] Work Phone: Start: 04-12-2025 End: 77-04-5057cnazvkpykdHljcwkcj Ball DO Work Phone: [facility] Work Phone: Start: 04-12-2025 End: 73-99-2022Emkacbh encounter procedureSroseann Brady PCZB-SUH-Z-[facility] [place] Work Phone: Start: 04-07-2025 End: 41-64-1862vggdhdujmgLdnohwp P LORRAINEFacility:EU EduinwalkStart: 04-07-2025 End: 44-64-9481Ctyxnox encounter procedureCarlos A BAEZ [facility] Start: 03-04-2025 End: 17-81-4549vwfyloyofbOxjnuiso Ball DO Work Phone: [facility] Work Phone: Start: 03-04-2025 End: 66-85-9535Xjclfpx encounter procedureStaci Burnette MD-[facility] Work Phone: Start: 01-21-2025 End: 94-74-6118pzzqbiorsmBivbjyfd Ball DO Work Phone: [facility] Work Phone: Start: 01-21-2025 End: 44-71-6370Mhjoaua encounter procedureBenjamin Ball DO Work Phone: [facility] Work Phone: Start: 93-41-2863Agf-patient / Non-visitBenjamin Ball DO Work Phone: [facility] Work Phone: Start: 12-14-2024 End: 94-62-7020juyqoitljwZiogmcwg Ball DO Work Phone: [facility] Work Phone: Start: 12-14-2024 End: 56-03-9974Armxiqx encounter procedureBenjamin Ball DO Work Phone: [facility] Work Phone: Start: 12-11-2024 End: 27-32-8200sgppmnvehuQpxkja X OrzechFacility:EU [place]walkStart: 12-10-2024 End: 05-51-5720vpbbxtsdpuDylivwlv Ball DO Work Phone: [facility] Work Phone: Start: 12-10-2024 End: 69-68-5479Keofidi encounter procedureBenjamin Ball DO Work Phone: [facility] Work Phone: Start: 11-05-2024 End: 51-07-9565juxgaiakbaIinaqxqk Ball DO Work Phone: [facility] Work Phone: Start: 11-05-2024 End: 79-97-5345Eanmoxa encounter procedureBenjamin Ball DO Work Phone: [facility] Work Phone: Start: 39-95-3189Kknjlinhdr RecurringBenjamin Ball DO Work Phone: [facility] Acute Work Phone: Start: 10-22-2024 End: 63-99-1669Ygfcifbkw to same day surgery centerBenjamin Ball DO Work Phone: [facility]-CT Scan Main [place] Work Phone: Start: 10-22-2024 End: 28-14-0442hmiiywixqbYjbvlebu Ball DO Work Phone: [facility] Work Phone: Start: 10-21-2024 End: 80-36-0143iwzuoowvgbQhjcdkvw Ball DO Work Phone: [facility] Work Phone: Start: 10-21-2024 End: 96-09-6286Ruhlxiq encounter procedureBenjamin Ball DO Work Phone: [facility] Work Phone: Start: 45-53-7610Yxo-patient / Non-visitBenjamin Ball DO Work Phone: [facility] Work Phone: Start: 87-79-3717dddilbexrsEGCRDLZOBTMXT [facility] Ambulatory PPGStart: 74-77-0120See-patient / Non-visit Erich Ball DO Work Phone: [facility] Work Phone: Start: 21-43-9689Bhm-patient / Non-visitBenjamin Ball DO Work Phone: [facility] Work Phone: Start: 96-66-4979Spu-patient / Non-visitBenjamin Ball DO Work Phone: [facility] Work Phone: Start: 10-09-2024 End: 38-69-1920Dwesduupfh and management of inpatientBenjamin Ball DO Work Phone: [facility] [place] [facility] Work Phone: Start: 05-69-6790Vez-patient / Non-visitBenjamin Ball DO Work Phone: [facility] Work Phone: Start: 10-08-2024 End: 95-47-3391Dpygzngts department patient visitTELENEUROLOGY INPATIENT [facility] Ambulatory PPGStart: 26-84-1674Qhr-patient / Non-visit Erich Ball DO Work Phone: [facility] Work Phone: Start: 96-23-6163Vwj-patient / Non-visitBenjamin Ball DO Work Phone: [facility] Work Phone: Start: 10-05-2024 End: 86-77-3891Dybofqt encounter procedureAt[facility] Work Phone: Start: 10-05-2024 End: 05-19-6773Aykohe outpatient visit 15 minutesJailyn Sepulveda CLINICAL TRIALS SPECIALIST Work Phone: ana BELLEVUEComment on above:Imbalance (Primary Dx); Dizziness; Generalized weaknessStart: 10-05-2024 End: 28-36-9998nwhdlpplwkJCGVVQ [facility]ISNationwide [facility] Work Phone: Start: 10-05-2024 End: 31-59-3954Qlztjo Bandar Sepulveda CLINICAL TRIALS SPECIALIST Work Phone: ana BELLEVUEStart: 10-05-2024 End: 28-85-6219Babmls Jessicarocco Coco CLINICAL TRIALS SPECIALIST Work Phone: ana BELLEVUEStart: 09-01-2024 End: 73-84-2364Kviyoem encounter procedureAtrium Health Physician GroupC[facility] Work Phone: Start: 99-85-6312Ylf-patient / Non-visitAtrium Health Physician GroupProv[facility] Work Phone: Start: 07-15-2024 End: 31-07-1573zmqmqrujunTxolnxyokDunlap Memorial Hospital Work Phone: Start: 07-15-2024 End: 11-76-4446Tuwjcyj encounter procedureAtrium Health Physician GroupCincinnati [facility] Work Phone: Start: 86-33-0953Tfsypti encounter [facility]: 07-06-2024 End: 11-17-8065Dbsflf Jessicarocco Coco CLINICAL TRIALS SPECIALIST Work Phone: [facility] [address] [facility]TEStart: 07-06-2024 End: 13-17-3888Vbafww Jessicarocco Coco CLINICAL TRIALS SPECIALIST Work Phone: noMS [address] STATE ROUTEStart: 07-06-2024 End: 42-04-6240Orzgao outpatient visit 15 minutesGregoriorocco Coco CLINICAL TRIALS SPECIALIST Work Phone: noMS [address] STATE ROUTEComment on above:Imbalance (Primary Dx); Dizziness; Generalized weakness; Daytime hypersomnolenceStart: 07-06-2024 End: 66-28-3905iklhdycuupYSNKGM MORRISNot AvailableStart: 22-82-0597Oyx-patient / Non-visitAtrium Health Physician GroupCinc[facility] Work Phone: Start: 06-30-2024 End: 38-21-2483npneoekediLyugnllomDunlap Memorial Hospital Work Phone: Start: 06-30-2024 End: 66-13-8539Jznkqfq encounter procedureFirriverside health system Physician GroupCinc[facility] Work Phone: Start: 05-26-2024 End: 06-23-9161dxxllevmdmWdotwiitwDunlap Memorial Hospital Work Phone: Start: 05-26-2024 End: 85-91-7715Cslicoj encounter procedureAtrium Health Physician GroupCincinnati [facility] Work Phone: Start: 04-18-7678Dmk-patient / Non-visitAtrium Health Physician Group-[facility] Out[facility] Work Phone: Start: 04-15-2024 End: 48-52-5150kaqnosdqyqYbxjbod P COOKFacility:EU EduinwalkStart: 04-15-2024 End: 80-83-0442Snqwfkw encounter procedureGregmu BAEZ [facility] Start: 04-07-2024 End: 02-94-6209oxhkoodriuDfbnqhbzdDunlap Memorial Hospital Work Phone: Start: 04-07-2024 End: 77-15-8688Zhxobcw encounter procedureAt[facility] Health Physician [facility] Work Phone: Start: 02-05-2024 End: 47-45-8740iadsyiovfcMvowearswDunlap Memorial Hospital Work Phone: Start: 02-05-2024 End: 12-88-4992Bjwbrzs encounter procedureAtrium Health Physician GroupCincinnati [facility] Work Phone: Start: 01-30-2024 End: 84-67-0717uyyrgrrhhlJUCKXU COCONot AvailableStart: 01-29-2024 End: 80-75-9807Bkwdkzn encounter procedureGregory Alfonso BAEZ [facility] Start: 27-50-9503Xjo-patient / Non-visitFirelands Physician Group-[facility] [employer] [facility] [employer] Work Phone: Start: 82-20-9357Jwf-patient / Non-visitFirelands Physician Group-[facility] Work Phone: Start: 12-19-2023 End: 75-41-0183zpahlbcteiQwwgpxaomCherrington Hospital Work Phone: Start: 12-19-2023 End: 64-42-7724Oyzlmxw encounter procedureFirelands Physician Group-[facility] Work Phone: Start: 11-06-2023 End: 32-33-5201Iladtrj encounter procedureFirelands Physician Group-[facility] Work Phone: Start: 10-03-2023 End: 50-74-0763njvhhtajmnKbisjzxl Ball Other [employer] Other Start: 57-73-6771Rveyvxhop encounterBenjamin BallFPG [facility] ClinicStart: 78-62-2959Ozyzjvc encounter procedureFirelands Physician Group-Start: 10-02-2023 End: 88-90-8963okdrouxjjzXcctjcgl Ball Other [employer] Other Start: 40-53-8798Lkpzcmrgl encounterBenjamin BallFPG [facility] ClinicStart: 2023 End: 03-34-9256ruwuoaxmwkWdicdvxg Ball Other [employer] Other Start: 50-53-7800Uvnnrwito encounterBenjamin BallFPG [facility] ClinicStart: 08-23-2023 End: 76-85-4134ldqrtfitpsYdcouptr Ball Other [employer] Other Start: 16-17-7471Kmobyahxx encounterBenjamin BallFPG [facility] ClinicStart: 08-07-2023 End: 92-50-2378etmboprwuyKqokvjbq Ball Other [employer] Other Start: 65-73-5531Hiczsq outpatient visit 25 minutes Erich BallFPG [facility] ClinicStart: 07-23-2023 End: 23-10-1862ddfspjhajlAmcimbwa Ball Other [employer] Other Start: 52-65-3327Ryvjkxj evaluation of patient and reportBenjamin BallFPG [facility] ClinicStart: 06-18-2023 End: 98-79-7538pcryfpcpbaNebzhugr Ball Other [employer] Other Start: 38-19-3275Ptcemnz evaluation of patient and reportBenjamin BallFPG [facility] ClinicStart: 06-05-2023 End: 35-03-7576ognpdagobuFyfnzgdu Ball Other [employer] Other Start: 03-33-8180Zoguzsdps encounterBenjamin BallFPG [facility] ClinicStart: 06-04-2023 End: 63-07-7709ztffvfsldyPxssymrf Ball Other [employer] Other Start: 28-12-2814Biihssges encounterBenjamin BallFPG [facility] ClinicStart: 05-08-2023 End: 51-21-8927ldfeuppxagGqaixsbh Ball Other [employer] Other Start: 11-44-6707Ibaxeln encounter procedureBenjamin BallFPG [facility] ClinicStart: 04-22-2023 End: 04-06-4203dhbjnchpleQrfzbgpy Ball Other [employer] Other Start: 46-43-9390Lgfnumbdd encounterBenjamin BallFPG [facility] ClinicStart: 03-20-2023 End: 03-44-1457fseqqdpifyTyzkpnds Ball Other [facility] [employer] Other Start: 19-13-1269Vgpsrif evaluation of patient and reportBenjamin BallFPG [facility] ClinicStart: 07-57-4344Aejpfg outpatient visit 15 minutesBenjamin E Ball Work Phone: [phone]-Eihxc [facility] [address] DO Work Phone: Start: 94-08-6651eoorhkgvpcFS CATHLEEN LOPEZ Facility:[id number]: 02-14-2023 End: 71-58-2630gxrtjysefzWagflehs Ball Other [place] [employer] Other Start: 76-00-0593Csshsiefk encounterBenjamin BallFPG [facility] ClinicStart: 02-13-2023 End: 14-67-8730djqnjeipfzVpucjpxe Ball Other [facility] [employer] Other Start: 75-83-4344Hwjrepdke encounterBenjamin BallFPG [facility] ClinicStart: 02-11-2023 End: 54-18-5841qmrqoubrqcAgkufs Burnette Other [place] [employer] Other Start: 62-74-9287Bdiioef evaluation of patient and reportMarcia BraunFPG [facility] ClinicStart: 02-05-2023 End: 24-84-4586srseevoxynDqswtami Ball Other [facility] [employer] Other Start: 13-49-8032Rkwiqi outpatient visit 25 minutes Erich BallFPG [facility] ClinicStart: 01-10-2023 End: 77-17-2917fpgplvdgtzPftcbcnd Ball Other [employer] Other Start: 71-58-6271Wzelonz evaluation of patient and reportBehuy Alejandro Medical ClinicStart: 99-97-5660Tmqmcdymo encounter Erich Alejandro Medical ClinicStart: 04-19-7155Wvnjzi outpatient visit 25 minutesBenjamin E Ball Work Phone: [phone]-Elgjg [facility] 250 DO Work Phone: Start: 26-29-1666ghizezrywcXW CATHLEEN LOPEZ Facility:[id number]: 17-56-8559nxvbptoeilNq. Cathleen Blackmonjosuécility:9844Start: 81-42-5648Geujjwa encounter procedureBenjamin E Ball Work Phone: [phone]-Hudjg [facility] [address] [place] Work Phone: Start: 88-37-1584jltyumtaysEyRl Cathleen Lopez Facility:[id number]: 12-03-2022 End: 61-17-3150byoxauvlhcRrmababy Ball Other [employer] Other Start: 96-35-5898Gmfzkdakw encounterBehuy Alejandro Medical ClinicStart: 11-21-2022 End: 24-96-9047azjvkaetgmJupjnfaj Ball Other [employer] Other Start: 24-31-3965Uchhws outpatient visit 25 minutes Erich Alejandro Medical ClinicStart: 85-80-6531Rluihv consultation new/estab patient 60 minBenjamin E Ball Work Phone: [phone]-Nlpca [facility] [address] DO Work Phone: Start: 58-40-0796Yphouhm encounter procedureBenjamin E Ball Work Phone: [phone]-Pcvxt [facility] 250 DO Work Phone: start: 21-36-0402tjgfbkvcfdPO CATHLEEN LOPEZ Facility:[id number]: 10-26-2022 End: 48-02-4163aktyhznpaoTdawyeln Ball Other [employer] Other Start: 55-02-2771Ukbsvl outpatient visit 25 minutes Erich BallFPG [facility] ClinicStart: 10-07-2022 End: 29-44-6281jklrnxkmeyTfwlrubu Ball Other [facility] [employer] Other Start: 90-48-9097Elvvihfbr encounterBenjamin BallFPG [facility] ClinicStart: 10-03-2022 End: 21-93-8448vqpsoefnqhPacxmlxt Ball Other [employer] Other Start: 79-24-1786Vryzplpuh encounterBenjamin BallFPG [facility] ClinicStart: 09-25-2022 End: 83-51-0848hhgexuxbzgZbnbhjkh Ball Other [facility] [employer] Other Start: 96-73-6253Tfcrqcbic encounterBenjamin BallFPG [facility] ClinicStart: 09-19-2022 End: 24-83-5684Zss-Silvio VelasquezinExtended Care Start: 09-10-2022 End: 95-04-9297divklivybbRyxxjjuz Ball Other [employer] Other Start: 74-65-9551Ctsbpebqz encounterBenjamin BallFPG [facility] ClinicStart: 09-10-2022 End: 25-29-1719Snz-SitePascual PRINCE [facility] Start: 09-08-2022 End: 13-09-4453Gkdhczsogc and management of inpatientJejason PRINCE [facility] Start: 09-05-2022 End: 56-83-6214unfdbvpgjdHyyjmyjv Ball Other [facility] [employer] Other Start: 26-16-7609Qiswgktfc encounterBensandi AlejandroNort Neusoft Grouprt: 80-51-1111ckjsaqzguwNz. Erich Alejandro Facility:[id number]: 09-04-2022 End: 84-87-4139Dhjyaatall and management of inpatientDO Erich Alejandro Work Phone: [facility] [place] [facility] Work Phone: Start: 09-04-2022 End: 36-32-7621oaiplwkuovXT ERICH BALLFacility:Q5Qttlo: 04-24-2022 End: 73-09-0917ggwwiwwkjmYK ERICH BALLFacility:Y8Anebn: 90-40-4159Gkybw health examinationBehuy Alejandro Other [facility] [employer] Other Start: 11-29-2021 End: 06-62-6382kydijsptxyPD ERICH ALEJANDROFacility:C3Tioak: 10-30-2021 End: 44-46-4970zahzhinngfGB ERICH ALEJANDROFacility:H1 Procedures DateProcedureProcedure DetailPerforming ClinicianStart: 67-41-5471Qium marrow samplingBensandi Ball DO Work Phone: Start: 70-59-0990RH of abdomen and pelvis without contrastBenelielmin Ball DO Work Phone: Start: 96-53-3214Qtqbfrw ultrasonography of bilateral carotid arteriesBensandi Ball DO Work Phone: Start: 22-39-1507SMHK Antigen (LFIA)DO Erich Alejandro Work Phone: Start: 05-05-7991VY of thorax with contrastDO Erich Alejandro Work Phone: Start: 75-24-6808Svrxv chest X-rayDO Erich [employer] Work Phone: Start: 97-53-9194Rkic reduction of fracture with internal fixationPascual PRINCE Comment on above:HUMERAL SHAFT WITH EXTENSION OF HUMERAL HEAD.Start: 79-73-4590Faml upper arm structure (body structure)Pascual PRINCE Start: 65-18-5322Ipzhesdbwhdwxcrgf with dilation of urethral stricturePascual PRINCE Start: 03-35-5960Psdpuzaekcqtw prostatectomyJejason PRINCE Cataract surgeryBenjamin E Ball Work Phone: Depression screeningBenjamin Ball Other Operation on colonBenjamin E Ball Work Phone: Surgical repair of upper extremityBenjamin E Ball Work Phone: TonsillectomyPascual PRINCE TonsillectomyBenjamin E Ball Work Phone: Total colectomyPascual PRINCE Total colonoscopyBenjamin E Ball Work Phone: Plan of Treatment DateCare ActivityDetailAuthorStart: 04-12-2025 End: 48-79-3486Bvkamle encounter dffbxftev21/11/2025 1:00 PM EDT Office Visit [facility] [address] [place] [address] Gracia Brady NP [address] [place] [id number] KI GHOSHtart: 10-22-2024 End: 78-66-4793WsdseyvtiPremier Health Miami Valley Hospitaltart: 54-52-9960Vrxa marrow samplingPremier Health Miami Valley Hospitaltart: 34-49-1114Lkgp marrow sampling [facility] Hospitaltart: 99-13-6161AaiqpzonoPremier Health Miami Valley Hospitaltart: 49-68-9048TxcqukgygPremier Health Miami Valley Hospitaltart: 10-11-2024 Referral to hematologistPremier Health Miami Valley Hospitaltart: 10-10-2024 [facility] Hospitaltart: 52-76-0066Vqlajwxi to abstracter [facility] Hospitaltart: 14-63-6881Giaegijn admissionPremier Health Miami Valley Hospitaltart: 10-05-2024 End: 80-19-3210Wtaljru encounter procedureNOPARKVIEW HEALTH ROUTEComment on above:ArrivedStart: 07-06-2024 End: 93-29-1179Vmflyqi encounter tmxajrpjd56/04/2024 1:00 PM EST Office Visit [facility] [address] [place] [address] Jailyn Sepulveda NP [address] [place], [place] [id number] ArrivedNOPARKVIEW HEALTH ROUTEComment on above:ArrivedStart: 53-61-1123Alxjmxplx vaccinationInfluenza Vaccine (#1)[facility] CenterStart: 06-93-4441WWY, Provider: Cathleen Lopez, Status: Pen, Time: 12:45 PMFUV, Provider: Cathleen Lopez, Status: Pen, Time: 12:[facility] Work Phone: Start: 57-99-3097LAD, Provider: Cathleen Lopez, Status: Pen, Time: 2:45 PMFUV, Provider: Cathleen Lopez, Status: Pen, Time: [facility] Work Phone: Start: 12-65-3984UDFD ONLY, Provider: DON COVARRUBIASI NUCLEAR 01,[id number], Status: Pen, Time: 12:30 PMREST ONLY, Provider: DON COVARRUBIASI NUCLEAR 01,[id number], Status: Pen, Time: 12:30 PM[facility] 250 DO Work Phone: Start: 72-91-3682RWPRMBZVL0, Provider: DON HHVI NUCLEAR 01,[id number], Status: Pen, Time: 2:00 PMSTRESSNUC2, Provider: DON HHVI NUCLEAR 01,[id number], Status: Pen, Time: 2:00 [facility] Work Phone: Start: 10-39-4660ShdzgkuwuSelect [facility] Start: 41-31-5560Myslxgwu admissionSelect Medical [facility] Comprehensive metabolic 1999 panel - Serum or PlasmaSelect Medical [facility] Rehabilitation Hospital, Edwin ShawComprehenve metabolic 1999 panel - Serum or PlasmaSelect Medical [facility] Clinic Rehabilitation Hospital, Edwin ShawComprehenve metabolic 1999 panel - Serum or [facility] 1999 panel - Serum or Plasma [facility] ShawComprehenve metabolic 1999 panel - Serum or PlasmaSelect Medical [facility] Clinic Rehabilitation Hospital, Edwin ShawKaryotype [Identifier] in Unspecified specimen NominalSelect Medical Cleveland Clinic Rehabilitation Hospital, Edwin ShawMicroalbumin [Mass/volume] in UrineSelect Medical Cleveland Clinic Rehabilitation Hospital, Edwin ShawPatient EducationNewark Hospital Ctr Work Phone: Patient [facility] Work Phone: [facility] Immunizations Immunization DateImmunizationNotesCare GostalmxSzksukxp07-22-0987zsovcerth virus vaccine, unspecified formulationJailyn Sepulveda NP Work Phone: [facility] CenterPlnsvhrrnw13-67-6972Vbfdtzb High-Dose Quadrivalent 0.7 ML Intramuscular Suspension Prefilled SyringeBenjamin E Ball Work Phone: [phone]-[facility]fJohnson [facility] 250 DO Work Phone: [phone]dciom virus vaccine, unspecified formulationPascual PRINCE [address] [place], [place] 2728305-24-2022Comirnaty 30 MCG/0.3ML Intramuscular SuspensionBenjamin E Ball Work Phone: [phone]-Uqmlj [facility] 250 DO Work Phone: [phone]-LbZ-5 mRNA (gfiryvxgnxv-zsmw-wbmfesk) vaccinePascual PRINCE [facility]11-03-2021COVID-19, mRNA, LNP-S, PF, 100 mcg or 50 mcg dosePascual PRINCE [facility]10-22-2021influenza virus vaccine, split virus (incl. purified surface antigen)Erich Alejandro Other [employer] Other [id number] virus vaccine, unspecified formulationSelect Medical [facility]08-26-2021tetanus toxoid, reduced diphtheria toxoid, and acellular pertussis vaccine, adsorbedPascual PRINCE [facility] ToledoComment on above: Early/Late Reason: Early/Late Reason: Other : .41-05-3801AMOL-CoV-2 (COVID-19) mRNA-1273 vaccinePascual PRINCE [facility]01-13-2021SARS-CoV-2 (COVID-19) mRNA-1273 vaccinePascual PRINCE [facility]ue10-01-2020influenza virus vaccine, unspecified formulationPascual PRINCE [facility]01-18-2020zoster vaccine, liveBenjamin Ball Other [facility]09-28-2019influenza virus vaccine, split virus (incl. purified surface antigen)Erich Alejandro Other [employer] Other 09-045582-23-3796hihvykykw virus vaccine, unspecified formulationSelect Medical [facility], [facility]09-28-2019zoster vaccine recombinant Pascual PRINCE [facility]10-10-2018influenza virus vaccine, split virus (incl. purified surface antigen)Erich Alejandro [facility] [employer] Other [id number] virus vaccine, unspecified formulationSelect Medical [facility]09-30-2017influenza virus vaccine, split virus (incl. purified surface antigen)Erich Alejandro Other [facility] [employer] Other 09-170587-90-5708rkvoqiymz virus vaccine, unspecified formulationSelect Medical [facility], [facility]06-25-2016pneumococcal polysaccharide vaccine, 23 valentBenjamin Javon Other [facility]04-18-2015 pneumococcal conjugate vaccine, 13 valentBenjamin Javon Other [facility]11-09-2005influenza virus vaccine, whole virusBenjamin E Javon Work Phone: [phone]-UsvxySt. [facility] Hospital 250 DO Work Phone: [phone]xzod polysaccharide vaccine, 23 valentPascual NIKI [facility] Payers DatePayer CategoryPayerPolicy [id number] Health [id number] BCBS Member Subscriber Plan / Payer (Effective 2011-Present) Name: Jose L Ames Relation to Subscriber: Self Name: Jose L Ames Payer ID: Not on file Type: Not on file Address: [facility] [address] [place] [id number] 2004Medicare [id number] [id number] 2.840.1.815620.3.57[id number] 2.840.1.501622.3.57[id number] 2.840.1.076959.3.57[id number] 2.840.1.896424.3.57[id number] 2.16840.1.821989.3.57[id number] 2.16840.1.815792.3.57[id number] 2.16840.1.566978.3.57[id number] 2.16840.1.024387.3.57[id number] 2.16.840.1.522182.3.57[id number] 2.840.1.487419.3.57[id number] 2.16840.1.002142.3.57[id number] 2.840.1.246361.3.57[id number] 2.840.1.845966.3.57[id number] 2.840.1.681093.3.57[id number] 2.840.1.937879.3.57[id number] 2.840.1.749357.3.57[id number] 2.840.1.204108.3.57[id number] 2.840.1.289943.3.57[id number] 2.840.1.083434.3.57[id number] 2.840.1.071445.[id number] 2.840.1.7[id number] 2.840.1.310224.3.579.2.531 [id number] 2.840.1.621111.3.579.2.531 Social History DateTypeDetailFacilityStart: 08-07-2021 End: 63-30-2172Bieonsr smoking statusLight tobacco smoker (finding)[facility] CenterStart: 16-25-8364Ees [facility]igned At [facility]tart: 09-04-2022 End: 27-40-9829Taoohco smoking status NHISEx-smoker (finding)[facility] Hospitaltart: 67-34-7511Bxw Assigned At [facility]: 02-55-6133Ff alcohol useNo alcohol useMP-[facility] 250 DO Work Phone: Comment on above:quit smoking in 2019;Start: 67-97-8784Qvgwegp smoking status NHISNever smoked tobaccoDAVIS HOSPITAL AND MED[facility]ENTER HealthcareStart: 01-30-2024 End: 05-14-6725Wdsjvznep beverage intakeLifetime non-drinker (finding)[facility] HealthcareStart: 30-79-2926Egl assigned at birthNot on fileNOUT HealthcareStart: 01-14-2018 End: 84-34-3407AjmPrsi (finding)[facility] Hospitaltart: 10-11-2024 End: 62-52-8403Nrolknv smoking status NHISCurrent some day smokerPremier Health Miami Valley Hospitaltart: 81-12-1287BILK Follow upSDOH Follow upMer[facility] Work Phone: Tobacco smoking statusNeverExecutive Urology of Parkwood Hospitalexual OrientationExecutive Urology of [facility] Medical Equipment Procedure CodeEquipment CodeEquipment Original TextEquipment IdentifierDates HUMERUS FRACTURE ORIF Edward Maxwell DO 05/01/21 Unknown Arm LFDAStart: 59-96-4832ICCVSSB FRACTURE ORIF Edward Maxwell DO 05/01/21 Unknown Arm L FDAStart: 65-82-5771TISOCKB FRACTURE ORIF Edward Maxwell DO 05/01/21 Unknown Arm LFDAStart: 60-70-7445OIVKWJH FRACTURE ORIF Alissa CRISTINA Edward Jesusita 05/01/21 Unknown Arm LFDAStart: 85-74-9355MAEISDC FRACTURE ORIF Zach Maxwell DOolas K. 05/01/21 Unknown Arm LFDAStart: 06-00-0880CAQUMOG FRACTURE ORIF Zach Maxwell DOolas K. 05/01/21 Unknown Arm LFDAStart: 62-92-6830XYLMYHL FRACTURE ORIF Zach Maxwell DOolas K. 05/01/21 Unknown Arm LFDAStart: 05-01-2021 HUMERUS FRACTURE ORIF Alissa CRISTINA Edward K. 05/01/21 Unknown Arm LFDAStart: 21-75-4494OUHRROC FRACTURE ORIF Alissa CRISTINA Edward Mariam. 05/01/21 Unknown Arm L FDAStart: 84-10-3843CWWWRUA FRACTURE ORIF Alissa CRISTINA Edward Mariam. 05/01/21 Unknown Arm LFDAStart: 15-64-0815IMQNAOO FRACTURE ORIF Zach Maxwell DOolas Mariam. 05/01/21 Unknown Arm LFDAStart: 96-41-3780USHCHGJ FRACTURE ORIF Alissa CRISTINA Edward Jesusita 05/01/21 Unknown Arm LFDAStart: 62-76-7231JSZNFWA FRACTURE ORIF Zach Maxwell DOolas Mariam. 05/01/21 Unknown Arm LFDAStart: 93-33-1609XGLNHGY FRACTURE ORIF Alissa CRISTINA Edward Mc 05/01/21 Unknown Arm LFDAStart: 05-01-2021 HUMERUS FRACTURE ORIF Alissa CRISTINA Edward K. 05/01/21 Unknown Arm LFDAStart: 32-25-9661JDNAZJA FRACTURE ORIF Alissa CRISTINA Edward K. 05/01/21 Unknown Arm L FDAStart: 20-85-0442EVYWPXP FRACTURE ORIF Alissa CRISTINA Edward K. 05/01/21 Unknown Arm LFDAStart: 44-60-4749TVAGXQX FRACTURE ORIF Alissa CRISTINA Edward Jesusita 05/01/21 Unknown Arm LFDAStart: 40-61-7635QFIUVYH FRACTURE ORIF Zach Maxwell DOolas Jesusita 05/01/21 Unknown Arm LFDAStart: 78-92-1790YDGJGPB FRACTURE ORIF Zach Maxwell DOolas K. 05/01/21 Unknown Arm LFDAStart: 83-53-6929YIHVDNZ FRACTURE ORIF Rica Maxwell DOs K. 05/01/21 Unknown Arm LFDAStart: 05-01-2021 HUMERUS FRACTURE ORIF Zach Maxwell DOolas K. 05/01/21 Unknown Arm LFDAStart: 21-22-9109XXJLDKF FRACTURE ORIF Rica Maxwell DOs K. 05/01/21 Unknown Arm L FDAStart: 58-25-2300UQKSHIY FRACTURE ORIF Zach Maxwell DOolas K. 05/01/21 Unknown Arm LFDAStart: 45-77-6542ILDQKJY FRACTURE ORIF Zach Maxwell DOolas K. 05/01/21 Unknown Arm LFDAStart: 38-48-3043NSKKWAW FRACTURE ORIF Rica Maxwell DOs Mariam. 05/01/21 Unknown Arm LFDAStart: 51-51-3296ERHGBVC FRACTURE ORIF Rica Maxwell DOs K. 05/01/21 Unknown Arm LFDAStart: 71-78-6011CSSJESR FRACTURE ORIF Zach Maxwell DOkirstin Becerra. 05/01/21 Unknown Arm LFDAStart: 05-01-2021 HUMERUS FRACTURE ORIF Zach Maxwell DOolas K. 05/01/21 Unknown Arm LFDAStart: 45-43-1970GUPPYSI FRACTURE ORIF Zach Maxwell DOolas Mariam. 05/01/21 Unknown Arm L FDAStart: 50-60-8713IQQWLWY FRACTURE ORIF Zach Maxwell DOolas K. 05/01/21 Unknown Arm LFDAStart: 31-96-0724ZBYDWCE FRACTURE ORIF Zach Maxwell DOolas K. 05/01/21 Unknown Arm LFDAStart: 06-15-8831OQNMVLQ FRACTURE ORIF Zach Maxwell DOolas K. 05/01/21 Unknown Arm LFDAStart: 14-32-2590KLZXLAN FRACTURE ORIF Zach Maxwell DOolas Mariam. 05/01/21 Unknown Arm LFDAStart: 36-48-9986XWGAGDR FRACTURE ORIF Zach Maxwell DOolas K. 05/01/21 Unknown Arm LFDAStart: 05-01-2021 HUMERUS FRACTURE ORIF Zach Maxwell DOolas K. 05/01/21 Unknown Arm LFDAStart: 40-91-4414XKHLAUZ FRACTURE ORIF Zach Maxwell DOolas K. 05/01/21 Unknown Arm L FDAStart: 18-62-8011LYVKJIA FRACTURE ORIF Zach Maxwell DOolas K. 05/01/21 Unknown Arm LFDAStart: 89-66-5929KQXSGWA FRACTURE ORIF Alissa CRISTINA Edward K. 05/01/21 Unknown Arm LFDAStart: 94-90-6254BNVDCTX FRACTURE ORIF Zach Maxwell DOolas K. 05/01/21 Unknown Arm LFDAStart: 90-74-1807MKALPJA FRACTURE ORIF Alissa CRISTINA Edward K. 05/01/21 Unknown Arm LFDAStart: 46-34-2218ZUFCXUZ FRACTURE ORIF Zach Maxwell DOolas K. 05/01/21 Unknown Arm LFDAStart: 05-01-2021 HUMERUS FRACTURE ORIF Alissa CRISTINA Edward K. 05/01/21 Unknown Arm LFDAStart: 82-52-0224ZALYYNR FRACTURE ORIF Alissa CRISTINA Edward K. 05/01/21 Unknown Arm L FDAStart: 23-07-9433GEOLVIF FRACTURE ORIF Alissa CRISTINA Edward K. 05/01/21 Unknown Arm LFDAStart: 40-45-3607SZRNWZC FRACTURE ORIF Alissa CRISTINA Edward K. 05/01/21 Unknown Arm LFDAStart: 99-78-3096LWERQNA FRACTURE ORIF Alissa CRISTINA Edward K. 05/01/21 Unknown Arm LFDAStart: 52-07-7636LUDRGXT FRACTURE ORIF Alissa CRISTINA Edward K. 05/01/21 Unknown Arm LFDAStart: 67-52-2591DRZTARA FRACTURE ORIF Alissa CRISTINA Edward K. 05/01/21 Unknown Arm LFDAStart: 05-01-2021 HUMERUS FRACTURE ORIF Edward Maxwell DO. 05/01/21 Unknown Arm LFDAStart: 39-18-4878XJRAGLF FRACTURE ORIF Edward Maxwell DO. 05/01/21 Unknown Arm L FDAStart: 15-67-5702CMCROPG FRACTURE ORIF Edward Maxwell DO. 05/01/21 Unknown Arm LFDAStart: 73-53-5578UCQTRYL FRACTURE ORIF Edward Maxwell DO. 05/01/21 Unknown Arm LFDAStart: 88-31-7936BVXQYVS FRACTURE ORIF Rica Maxwell DOs Mariam. 05/01/21 Unknown Arm LFDAStart: 81-83-0546Qqqkm: 22-05-5918Ikazk Sugar Diagnostic (Freestyle Lite Strips) stripStart: 03-20-8797UPFBTTE FRACTURE ORIF Edward Maxwell DORl 05/01/21 Unknown Arm LFDAStart: 62-59-7611YBUBTRH FRACTURE ORIF Edward Maxwell DO. 05/01/21 Unknown Arm LFDAStart: 05-01-2021 HUMERUS FRACTURE ORIF Edward Maxwell DORl 05/01/21 Unknown Arm LFDAStart: 39-81-1617WWDNVSQ FRACTURE ORIF Edward Maxwell DO. 05/01/21 Unknown Arm L FDAStart: 19-64-4138QSVXMHX FRACTURE ORIF Rica Maxwell DObetsy Mc 05/01/21 Unknown Arm LFDAStart: 31-70-0230GEZVJBJ FRACTURE ORIF Rica Maxwell DOs Mariam. 05/01/21 Unknown Arm LFDAStart: 89-54-1352DCWPFNA FRACTURE ORIF Rica Maxwell DOs K. 05/01/21 Unknown Arm LFDAStart: 44-83-6804UEUNSNI FRACTURE ORIF Rica Maxwell DOs K. 05/01/21 Unknown Arm LFDAStart: 69-35-5562PRNCJOU FRACTURE ORIF Rica Maxwell DOs MariamRl 05/01/21 Unknown Arm LFDAStart: 05-01-2021 HUMERUS FRACTURE ORIF Rica Maxwell DOs K. 05/01/21 Unknown Arm LFDAStart: 82-97-1210KTCALKT FRACTURE ORIF Alissa CRISTINA, Edward K. 05/01/21 Unknown Arm L FDAStart: 50-72-9617UMQSXFN FRACTURE ORIF Alissa DO, Edward K. 05/01/21 Unknown Arm LFDAStart: 27-70-7866GOAANFU FRACTURE ORIF Alissa CRISTINA, Edward K. 05/01/21 Unknown Arm LFDAStart: 62-16-1955QFBPENH FRACTURE ORIF Alissa DO, Edward K. 05/01/21 Unknown Arm LFDAStart: 90-59-7390FGJADZS FRACTURE ORIF Alissa CRISTINA, Edward K. 05/01/21 Unknown Arm LFDAStart: 52-02-2889ZRATQFA FRACTURE ORIF Alissa CRISTINA, Edward K. 05/01/21 Unknown Arm LFDAStart: 05-01-2021 HUMERUS FRACTURE ORIF Alissa CRISTINA, Edward K. 05/01/21 Unknown Arm LFDAStart: 71-62-2910RFCNFDM FRACTURE ORIF Alissa CRISTINA, Edward K. 05/01/21 Unknown Arm L FDAStart: 24-09-2643Rfuax Sugar Diagnostic (Freestyle Lite Strips) stripStart: 13-98-0582Rwmua Sugar Diagnostic (Freestyle Lite Strips) stripStart: 11-05-2023 Lancets (Freestyle Lancets) 28 gauge miscStart: 01-04-5299Cyhomcu (Freestyle Lancets) 28 gauge miscStart: 01-13-2024 End: 89-45-2110Ytkvd Sugar Diagnostic (Freestyle Lite Strips) stripStart: 59-73-3096Eawbiyj (Freestyle Lancets) 28 gauge miscStart: 57-93-6798Xbo Needle, Diabetic (Bd Ultra-Fine Mini Pen Needle) 31 gauge x 3/16 needleStart: 48-20-5873Rofgh Sugar Diagnostic (Freestyle Lite Strips) stripStart: 11-05-2023 End: 90-04-7417Smtrbap (Freestyle Lancets) 28 gauge miscStart: 01-13-2024 End: 51-25-3274Qeg Needle, Diabetic (Bd Ultra-Fine Mini Pen Needle) 31 gauge x 3/16 needleStart: 02-06-2024 End: 02-78-7275QNBUUVZ FRACTURE ORIF Rica Maxwell DOs K. 05/01/21 Unknown Arm LFDAStart: 95-91-0133OFUIDGN FRACTURE ORIF Zach Maxwell DOolas K. 05/01/21 Unknown Arm LFDAStart: 17-43-8704BEBQSIZ FRACTURE ORIF Zach Maxwell DOolas K. 05/01/21 Unknown Arm LFDAStart: 53-79-3424FISVISS FRACTURE ORIF Zach Maxwell DOolas K. 05/01/21 Unknown Arm LFDAStart: 54-28-6576CGJUXAH FRACTURE ORIF Zach Maxwell DOolas K. 05/01/21 Unknown Arm LFDAStart: 77-24-7348ERJISFA FRACTURE ORIF Zach Maxwell DOolas K. 05/01/21 Unknown Arm LFDAStart: 05-01-2021 HUMERUS FRACTURE ORIF Zach Maxwell DOolas K. 05/01/21 Unknown Arm LFDAStart: 59-05-0193FOSRFCF FRACTURE ORIF Alissa CRISTINA Edward K. 05/01/21 Unknown Arm L FDAStart: 44-28-0942IKCDEPJ FRACTURE ORIF Zach Maxwell DOolas K. 05/01/21 Unknown Arm LFDAStart: 43-68-5379EJTUIGZ FRACTURE ORIF Alissa CRISTINA Edward K. 05/01/21 Unknown Arm LFDAStart: 07-06-9530XHINSDH FRACTURE ORIF Zach Maxwell DOolas K. 05/01/21 Unknown Arm LFDAStart: 27-28-3732QORDHBV FRACTURE ORIF Alissa CRISTINA Edward K. 05/01/21 Unknown Arm LFDAStart: 15-88-3712JBFXOFE FRACTURE ORIF Zach Maxwell DOolas K. 05/01/21 Unknown Arm LFDAStart: 05-01-2021 HUMERUS FRACTURE ORIF Alissa CRISTINA Edward K. 05/01/21 Unknown Arm LFDAStart: 04-21-4985PTSVKBH FRACTURE ORIF [place] , Edward K. 05/01/21 Unknown Arm L FDAStart: 11-89-3421PBPJHFU FRACTURE ORIF [place] DO, Edward K. 05/01/21 Unknown Arm LFDAStart: 50-02-8032AIZUHYX FRACTURE ORIF [place] DO, Edward K. 05/01/21 Unknown Arm LFDAStart: 80-87-7690TUQDCMK FRACTURE ORIF [place] DO, Edward K. 05/01/21 Unknown Arm LFDAStart: 98-82-6128Swkpc Sugar Diagnostic (Freestyle Lite Strips) stripStart: 90-45-9288Rzasmni (Freestyle Lancets) 28 gauge miscStart: 23-20-4960Vgu Needle, Diabetic (Bd Ultra-Fine Mini Pen Needle) 31 gauge x 3/16 needleStart: 03-07-4299Ngdzi Sugar Diagnostic (Freestyle Lite Strips) stripStart: 11-05-2023 End: 14-47-8136Dqoivrf (Freestyle Lancets) 28 gauge miscStart: 01-13-2024 End: 78-57-2616Jmf Needle, Diabetic (Bd Ultra-Fine Mini Pen Needle) 31 gauge x 3/16 needleStart: 02-06-2024 End: 86-84-1265Qcsfu Sugar Diagnostic (Freestyle Lite Strips) stripStart: 52-60-3286Pomoowi (Freestyle Lancets) 28 gauge miscStart: 56-85-3673Ypx Needle, Diabetic (Bd Ultra-Fine Mini Pen Needle) 31 gauge x 3/16 needleStart: 26-65-2274Mojtq Sugar Diagnostic (Freestyle Lite Strips) stripStart: 11-05-2023 End: 84-03-5424Enyegno (Freestyle Lancets) 28 gauge miscStart: 01-13-2024 End: 37-60-4223Jty Needle, Diabetic (Bd Ultra-Fine Mini Pen Needle) 31 gauge x 3/16 needleStart: 02-06-2024 End: 15-71-8855Npeji Sugar Diagnostic (Freestyle Lite Strips) stripStart: 67-56-8719Ddwlrqd (Freestyle Lancets) 28 gauge miscStart: 69-61-3686Jen Needle, Diabetic (Bd Ultra-Fine Mini Pen Needle) 31 gauge x 3/16 needleStart: 42-85-6205Soxzq Sugar Diagnostic (Freestyle Lite Strips) stripStart: 11-05-2023 End: 98-80-7753Xobpoef (Freestyle Lancets) 28 gauge miscStart: 01-13-2024 End: 80-89-7846Zxy Needle, Diabetic (Bd Ultra-Fine Mini Pen Needle) 31 gauge x 3/16 needleStart: 02-06-2024 End: 77-67-5081Mrmss Sugar Diagnostic (Freestyle Lite Strips) stripStart: 55-62-7967Dhkxsvo (Freestyle Lancets) 28 gauge miscStart: 40-03-0763Ufh Needle, Diabetic (Bd Ultra-Fine Mini Pen Needle) 31 gauge x 3/16 needleStart: 79-57-9689Oygzj Sugar Diagnostic (Freestyle Lite Strips) stripStart: 11-05-2023 End: 65-21-7273Efpcpnc (Freestyle Lancets) 28 gauge miscStart: 01-13-2024 End: 79-20-8859Xwa Needle, Diabetic (Bd Ultra-Fine Mini Pen Needle) 31 gauge x 3/16 needleStart: 02-06-2024 End: 20-91-9619Xpppr Sugar Diagnostic (Freestyle Lite Strips) stripStart: 60-79-5147Sjdfipn (Freestyle Lancets) 28 gauge miscStart: 79-54-5766Oxp Needle, Diabetic (Bd Ultra-Fine Mini Pen Needle) 31 gauge x 3/16 needleStart: 77-95-2911Tebjp Sugar Diagnostic (Freestyle Lite Strips) stripStart: 11-05-2023 End: 10-57-9945Meceerj (Freestyle Lancets) 28 gauge miscStart: 01-13-2024 End: 54-04-2921Xgp Needle, Diabetic (Bd Ultra-Fine Mini Pen Needle) 31 gauge x 3/16 needleStart: 02-06-2024 End: 65-36-5785Ygost Sugar Diagnostic (Freestyle Lite Strips) stripStart: 20-22-3933Exbzohr (Freestyle Lancets) 28 gauge miscStart: 69-83-7285Plp Needle, Diabetic (Bd Ultra-Fine Mini Pen Needle) 31 gauge x 3/16 needleStart: 29-95-2355Sriiv Sugar Diagnostic (Freestyle Lite Strips) stripStart: 11-05-2023 End: 88-90-4516Wwfsvwj (Freestyle Lancets) 28 gauge miscStart: 01-13-2024 End: 95-37-9052Xsk Needle, Diabetic (Bd Ultra-Fine Mini Pen Needle) 31 gauge x 3/16 needleStart: 02-06-2024 End: 86-68-3157Bpjnh Sugar Diagnostic (Freestyle Lite Strips) stripStart: 06-61-1447Gglvels (Freestyle Lancets) 28 gauge miscStart: 31-66-1402Ejd Needle, Diabetic (Bd Ultra-Fine Mini Pen Needle) 31 gauge x 3/16 needleStart: 51-44-4543Sxglq Sugar Diagnostic (Freestyle Lite Strips) stripStart: 11-05-2023 End: 99-47-1022Ntyafrv (Freestyle Lancets) 28 gauge miscStart: 01-13-2024 End: 13-67-3853Icw Needle, Diabetic (Bd Ultra-Fine Mini Pen Needle) 31 gauge x 3/16 needleStart: 02-06-2024 End: 01-03-1036Xhhes Sugar Diagnostic (Freestyle Lite Strips) stripStart: 10-54-0955Peqcnta (Freestyle Lancets) 28 gauge miscStart: 65-65-5368Grs Needle, Diabetic (Bd Ultra-Fine Mini Pen Needle) 31 gauge x 3/16 needleStart: 30-22-5474Fscjm Sugar Diagnostic (Freestyle Lite Strips) stripStart: 11-05-2023 End: 16-15-4557Encgbnn (Freestyle Lancets) 28 gauge miscStart: 01-13-2024 End: 39-09-4179Luk Needle, Diabetic (Bd Ultra-Fine Mini Pen Needle) 31 gauge x 3/16 needleStart: 02-06-2024 End: 59-66-9950Tliqf Sugar Diagnostic (Freestyle Lite Strips) stripStart: 68-27-0025Mkyggai (Freestyle Lancets) 28 gauge miscStart: 55-29-1737Qof Needle, Diabetic (Bd Ultra-Fine Mini Pen Needle) 31 gauge x 3/16 needleStart: 42-75-5541Ivdso Sugar Diagnostic (Freestyle Lite Strips) stripStart: 11-05-2023 End: 89-62-2249Aomceqa (Freestyle Lancets) 28 gauge miscStart: 01-13-2024 End: 33-52-1135Reg Needle, Diabetic (Bd Ultra-Fine Mini Pen Needle) 31 gauge x 3/16 needleStart: 02-06-2024 End: 19-16-1056Wvafl Sugar Diagnostic (Freestyle Lite Strips) stripStart: 99-45-0273Fddwcnd (Freestyle Lancets) 28 gauge miscStart: 28-67-0661Mhc Needle, Diabetic (Bd Ultra-Fine Mini Pen Needle) 31 gauge x 3/16 needleStart: 13-58-8930Ilnda Sugar Diagnostic (Freestyle Lite Strips) stripStart: 11-05-2023 End: 19-71-9430Asnjfaf (Freestyle Lancets) 28 gauge miscStart: 01-13-2024 End: 52-32-7319Whv Needle, Diabetic (Bd Ultra-Fine Mini Pen Needle) 31 gauge x 3/16 needleStart: 02-06-2024 End: 31-75-5733Khhzj Sugar Diagnostic (Freestyle Lite Strips) stripStart: 33-22-9069Okheerj (Freestyle Lancets) 28 gauge miscStart: 69-38-7455Wej Needle, Diabetic (Bd Ultra-Fine Mini Pen Needle) 31 gauge x 3/16 needleStart: 60-98-7463Tjlcr Sugar Diagnostic (Freestyle Lite Strips) stripStart: 11-05-2023 End: 10-32-2218Hokjqgp (Freestyle Lancets) 28 gauge miscStart: 01-13-2024 End: 14-08-6713Apz Needle, Diabetic (Bd Ultra-Fine Mini Pen Needle) 31 gauge x 3/16 needleStart: 02-06-2024 End: 19-67-0482Wzoxx Sugar Diagnostic (Freestyle Lite Strips) stripStart: 68-17-5524Wyqgmiv (Freestyle Lancets) 28 gauge miscStart: 26-38-8704Yig Needle, Diabetic (Bd Ultra-Fine Mini Pen Needle) 31 gauge x 3/16 needleStart: 72-92-1574Txmrz Sugar Diagnostic (Freestyle Lite Strips) stripStart: 11-05-2023 End: 92-77-9288Midpnnx (Freestyle Lancets) 28 gauge miscStart: 01-13-2024 End: 71-55-8436Lcw Needle, Diabetic (Bd Ultra-Fine Mini Pen Needle) 31 gauge x 3/16 needleStart: 02-06-2024 End: 33-93-7738OWJOTUA FRACTURE ORIF Maxwell Edward CRISTINA 05/01/21 Unknown Arm LFDAStart: 60-04-6828WRWDZWH FRACTURE ORIF Alissa Rica CRISTINAs K. 05/01/21 Unknown Arm LFDAStart: 41-71-8753KHEFISD FRACTURE ORIF Alissa Rica CRISTINAs K. 05/01/21 Unknown Arm LFDAStart: 67-83-2372JPYZGPW FRACTURE ORIF Alissa Rica CRISTINAs K. 05/01/21 Unknown Arm LFDAStart: 52-60-5653FOIBJWD FRACTURE ORIF Alissa Rica CRISTINAs K. 05/01/21 Unknown Arm LFDAStart: 00-19-5374CVKJVKY FRACTURE ORIF Alissa Zach CRISTINAolas K. 05/01/21 Unknown Arm LFDAStart: 05-01-2021 HUMERUS FRACTURE ORIF Maxwell Zach CRISTINAolas K. 05/01/21 Unknown Arm LFDAStart: 25-17-1552LEKXSZH FRACTURE ORIF Maxwell Zach CRISTINAolas K. 05/01/21 Unknown Arm L FDAStart: 29-42-5806GSITVEE FRACTURE ORIF Maxwell Zach CRISTINAolas K. 05/01/21 Unknown Arm LFDAStart: 05-46-2860EWVBTER FRACTURE ORIF Alissa CRISTINA, Edward K. 05/01/21 Unknown Arm LFDAStart: 46-44-1037ZSWSNOS FRACTURE ORIF Alissa CRISTINA, Edward K. 05/01/21 Unknown Arm LFDAStart: 80-53-9937QXHMYUX FRACTURE ORIF Alissa CRISTINA, Edward K. 05/01/21 Unknown Arm LFDAStart: 30-28-6736XCCJBNE FRACTURE ORIF Alissa CRISTINA, Edward K. 05/01/21 Unknown Arm LFDAStart: 05-01-2021 HUMERUS FRACTURE ORIF Alissa CRISTINA, Edward K. 05/01/21 Unknown Arm LFDAStart: 87-95-7497XVKIIRM FRACTURE ORIF Alissa CRISTINA, Edward K. 05/01/21 Unknown Arm L FDAStart: 95-76-1605PZTIHKC FRACTURE ORIF Alissa CRISTINA, Edward K. 05/01/21 Unknown Arm LFDAStart: 79-93-1695XEUAMPK FRACTURE ORIF Alissa CRISTINA, Edward K. 05/01/21 Unknown Arm LFDAStart: 41-62-2459FGGWQKU FRACTURE ORIF Alissa CRISTINA, Edward K. 05/01/21 Unknown Arm LFDAStart: 06-97-5414Ewzhp Sugar Diagnostic (Freestyle Lite Strips) stripStart: 06-84-0889Lzzvnkj (Freestyle Lancets) 28 gauge miscStart: 26-28-7779Fhl Needle, Diabetic (Bd Ultra-Fine Mini Pen Needle) 31 gauge x 3/16 needleStart: 82-49-1726Lniva Sugar Diagnostic (Freestyle Lite Strips) stripStart: 01-09-2024 End: 91-29-9048Nfbht Sugar Diagnostic (Freestyle Lite Strips) stripStart: 11-05-2023 End: 59-24-8798Silnkoo (Freestyle Lancets) 28 gauge miscStart: 01-13-2024 End: 47-65-9724Keq Needle, Diabetic (Bd Ultra-Fine Mini Pen Needle) 31 gauge x 3/16 needleStart: 02-06-2024 End: 36-48-1417Zmjwh Sugar Diagnostic (Freestyle Lite Strips) stripStart: 14-55-9020Tmrphbn (Freestyle Lancets) 28 gauge miscStart: 67-85-7281Fja Needle, Diabetic (Bd Ultra-Fine Mini Pen Needle) 31 gauge x 3/16 needleStart: 85-91-9118Cxbsv Sugar Diagnostic (Freestyle Lite Strips) stripStart: 01-09-2024 End: 21-73-7979Bezus Sugar Diagnostic (Freestyle Lite Strips) stripStart: 11-05-2023 End: 75-98-5379Snhmgzt (Freestyle Lancets) 28 gauge miscStart: 01-13-2024 End: 91-81-0519Mhn Needle, Diabetic (Bd Ultra-Fine Mini Pen Needle) 31 gauge x 3/16 needleStart: 02-06-2024 End: 16-13-4230Ippty Sugar Diagnostic (Freestyle Lite Strips) stripStart: 59-05-6428Hizmsse (Freestyle Lancets) 28 gauge miscStart: 42-63-2110Aui Needle, Diabetic (Bd Ultra-Fine Mini Pen Needle) 31 gauge x 3/16 needleStart: 41-16-2480Pbydu Sugar Diagnostic (Freestyle Lite Strips) stripStart: 01-09-2024 End: 54-91-4183Iokbl Sugar Diagnostic (Freestyle Lite Strips) stripStart: 11-05-2023 End: 87-32-5483Nytueuo (Freestyle Lancets) 28 gauge miscStart: 01-13-2024 End: 80-32-7517Ylu Needle, Diabetic (Bd Ultra-Fine Mini Pen Needle) 31 gauge x 3/16 needleStart: 02-06-2024 End: 02-06-2024 Goals DatePatient GoalDesired Activity/State Functional Status MnryMtniyyioniUckktwMfntslix79-38-6307Apaiwxzjfm statusPatient at Baseline [facility] Work Phone: 1(337) 441-351102435088-31-4246Zjgmozxyxn statusDisability Status [facility] Work Phone: [phone]) [phone]gwahvydrs StatusN/AExec[facility]01-07-2023Functional statusPatient at BaselineMer[facility] Work Phone: Mental Status GzhkGabzzydkkoIuoczhGhjvylfl89-55-3358Fcjcnfbbg functionCognitive Status Patient at [facility] Work Phone: 1([phone]dzctb functionCognitive Status Patient at [facility] Work Phone: Clinical Notes 12-02-2019 to 04-07-2025 Note Date & JksvKfhcAbffcdei74-58-3927 Hospital Discharge instructions Patient Education 04/07/2025 10:37:44 [...] your health care provider. General instructions Take gbdn-cnn-xywjfgx and prescription medicines only as told by [...] provider. Document Revised: 05/08/2021 Document Reviewed: 05/08/2021 [employer] Patient Education 2023 [employer]. Follow Up Care 12/11/2024 09:41:12 With:LORRAINE DAUGHERTY, Carlos A Hamilton, URL Address: [address] [place], [place] [address]- When: Unknown [facility] 08-06-2025 NotePatient Education Obstetrics and Gynecology Overactive [...] health care provider. General instructions ??? Take jlwx-eog-qqrzprv and prescription medicines only as told by [...] you drink, and whe (more content not included)...[facility]07-03-2025 Evaluation note* Diagnosis Onset Date Resolution [...] 2 diabetes mellitus with hyperglycemiaacuteAugust 2024 10:53am [facility] Work Phone: 1([phone]) 605-131507-03-2025 Evaluation note* Diagnosis Onset Date Resolution Status [...] 2 diabetes mellitus with hyperglycemiaacuteSeptember 2024 11:43am [facility] Work Phone: 1(474) 468-236105-22-2025 Evaluation note* Diagnosis Onset Date Resolution Status [...] 2024 3:26pmVitamin B12 deficiency noneactiveJuly 2024 3:26pm [facility] Work Phone: 1(553) 280-755104-11-2025 NotePatient Education Obstetrics and Gynecology Overactive Bladder, [...] health care provider. General instructions ??? Take clyx-kcf-rbsgtjx and prescription medicines only as told by [...] you drink, and whe (more content not included)...[facility]04-10-2025 Evaluation note* Diagnosis Onset Date Resolution [...] with hyperglycemiaacuteMay 2024 10:28amPolyuria noneactiveMay 2024 10:28am [facility] Work Phone: 1(738) 439-183203-06-2025 Evaluation note* Diagnosis Onset Date Resolution Status [...] with hyperglycemiaacuteMay 2024 10:28amPolyuria noneactiveMay 2024 10:28am [facility] Work Phone: 1(323) 364-802503-06-2025 Progress noteUnH[facility] [place] [address] Cancer Center Note Signed Patient: Jose L Ames MR#: [id number] 2655 : 1940 Acct:[id number] Age/Sex: 84 / M Type: REG AMB [...] T2DM, HTN, YASMANI, AAA who presented to [facility] emergency room for altered mental status and weakness. [facility] chart review?patient arrived to [facility] via EMS for altered mental status, increased [...] day, denies alcohol or illicit druguse. At [facility], his iron studies were c/w anemia [...] mg (1/2 x 20 mg) PO BID aw-svp-bujgr-W4-zideaue-xvjgon 654-71-414-300 mcg (Centrum Silver Men) 1 tab PO [...] up with labs and imaging for review. 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 Pernicious anemia Mucopurulent chronic bronchitis Lumbar spondylosis assisted (current) use of insulin Left humeral fracture [...] MD DD/ 0857 Signed By: 11/05/24 0944 [facility]02-11-2025 Progress note Author West Caraballo [facility] ShawNote Date/TimeFebruary 2024 12:55pm [place] [address] Hospitalist Progress Note Signed Patient: Jose L Ames MR#: [id number] 2655 : 1940 Acct:[id number] Age/Sex: 84 / M Adm Date: 5 Loc: Room: [address] [place] [address] Type: ADM IN Attending Dr: West Caraballo [...] can be done as an outpatient. -Check [facility] for any evidence of positive culture results [...] came back neg -Nursing team checked with [place] yesterday blood cultures were still pending,we were [...] <Electronically signed by West Caraballo MD> 10/13/[address] [facility] Work Phone: 1(761) 662-729302-11-2025 [place] [address] Hospitalist Progress Note Signed Patient: Jose L Ames MR#: [id number] 2655 : 1940 Acct:[id number] Age/Sex: 84 / M Adm Date: 5 Loc: Room: [address] [place] [address] Type: ADM IN Attending Dr: West Caraballo [...] can be done as an outpatient. -Check [facility] for any evidence of positive culture results [...] MD 5 1239 Signed By: 10/13/24 1255 [facility]02-10-2025 Progress note Author Javier Mruray [facility] ShawNote Date/TimeFebruary 2024 12:56pm [place] [address] Hospitalist Progress Note Signed Patient: Jose L Ames MR#: [id number] 2655 : 1940 Acct:[id number] Age/Sex: 84 / M Adm Date: 5 Loc: 4 Room: [address] [place] [address] Type: ADM IN Attending Dr: Javier Murray [...] <Electronically signed by Javier Murray MD> 10/12/24 [facility] [facility] Work Phone: 1(283) 863-398602-10-2025 [place] [address] Hospitalist Progress Note Signed Patient: Jose L Ames MR#: [id number] 2655 : 1940 Acct:[id number] Age/Sex: 84 / M Adm Date: 5 Loc: 4 Room: [address] [place] [address] Type: ADM IN Attending Dr: Javier Murray [...] all came back -Nursing team checked with [place] yesterday blood cultures were still pending,we were [...] MD 10/12/24 12 53 Signed By: 10/12/[address] [place], [place] 7314202-10-2025 Progress note Author Loyda Carlos [facility]Note Date/TimeFebruary 2024 10:02pm [place] [address] Hospitalist Progress Note Signed with Addenda Patient: Jose L Ames MR#: [id number] 2655 : 1940 Acct:[id number] Age/Sex: 84 / M Adm Date: 5 Loc: Room: [address] [place] [address] Type: ADM IN Attending Dr: Loyda Carlos [...] Ml SUBCUT 10/09/25 07:59 Not Given TID.WM.HS SHRAI Protocol Loperamide HCl 2 mg 10/09/24 15:26 [...] <Electronically signed by Loyda Carlos MD> 10/11/242199 [facility] Work Phone: 1(602) [phone] [place] [address] Hospitalist Progress Note Signed with Addenda Patient: Jose L Ames MR#: [id number] 2655 : 1940 Acct:[id number] Age/Sex: 84 / M Adm Date: 5 Loc: Room: [address] [place] [address] Type: ADM IN Attending Dr: Loyda Carlos [...] all came back -Nursing team checked with [place] yesterday blood cultures were still pending,we were [...] MD 10/11/24 1127 Signed By: 10/11/24 2200 [facility]02-09-2025 Consult note Author Angelo Iglesias [facility] Date/TimeFebruary 2024 1:10pm [place] [id number] Med Onc/Hem Consult Note Signed Patient: Jose L Ames MR#: [id number] 2655 : 1940 Acct:[id number] Age/Sex: 84 / M Adm Date: 5 Loc: 4C Room: 0F4297-8 Type: ADM IN Attending Dr: Loyda Carlos [...] T2DM, HTN, YASMANI, AAA who presented to [facility] emergency room for altered mental status and weakness. [facility] chart review?patient arrived to [facility] via EMS for altered mental status, increased [...] day, denies alcohol or illicit druguse. 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 Work Phone: 1([phone]) 469-135602-09-2025 [place] [address] Med Onc/Hem Consult Note Signed Patient: Jose L Ames MR#: [id number] 2655 : 1940 Acct:[id number] Age/Sex: 84 / M Adm Date: 5 Loc: Room: 1D3901-4 Type: ADM IN Attending Dr: Loyda Carlos [...] T2DM, HTN, YASMANI, AAA who presented to [facility] emergency room for altered mental status and weakness. [facility] chart review?patient arrived to [facility] via EMS for altered mental status, increased [...] day, denies alcohol or illicit druguse. 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 Pernicious anemia Mucopurulent chronic bronchitis 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 Left humeral fracture [...] 20 unit subcutDAILY 11/05/23 [History Confirmed 07/15/24] iqndffjj-vd-qcqeh 300 mcg-K 60 mcg-lycop 600 mcg-lutein 300 [...] % (Auto) 64.7, Lymph % (Auto) 22.0, Kendall % (Auto) 11.4, Eos % (Auto) 1.1, Baso % (Auto) 0.8, Nucleat RBC Rel Count 0.1, Neut #(Auto) 1.8, Lymph # (Auto) 0.6 L, Kendall # (Auto) 0.3, Eos # (Auto) 0.0, [...] MD 10/11/24 1256 Signed By: 10/11/24 1310 [facility]02-09-2025 Progress note Author Loyda Carlos [facility] Date/TimeFebruary 2024 11:33pm [place] [address] Hospitalist Progress Note Signed Patient: Jose L Ames MR#: [id number] 2655 : 1940 Acct:[id number] Age/Sex: 84 / M Adm Date: 5 Loc: Room: 6N9349-7 Type: ADM IN Attending Dr: Loyda Carlos [...] consulted GI - Follow blood cultures from [facility] which were drawn when pt was at [place], I asked the nursing teamto confirm the [...] signed by Loyda Carlos MD> 10/10/[address] [facility] Work Phone: 1([phone]) 370-899502-08-2025 [place] [address]370 Hospitalist Progress Note Signed Patient: Jose L Ames MR#: [id number] 2655 : 1940 Acct:[id number] Age/Sex: 84 / M Adm Date: 5 Loc: Room: [address] [place] [address] Type: ADM IN Attending Dr: Loyda Carlos [...] Levophed IV 10/09/25 04:29 Not Given .Q24H HSARI Protocol 5 MCG/MIN Piperacillin Sod/Tazobactam Sod 3.375 [...] consulted GI - Follow blood cultures from [facility] which were drawn when pt was at [place], I asked the nursing teamto confirm the [...] MD 10/10/24 1225 Signed By: 10/10/24 2333 [facility]02-08-2025 Consult note Author Mateusz Arellano [facility] Date/TimeFebruary 2024 12:09pm [place] [address] Gastroenterology Consult Note Signed Patient: Jose L Ames MR#: [id number] 2655 : 1940 Acct:[id number] Age/Sex: 84 / M Adm Date: 5 Loc: Room: [address] [place] [address] Type: ADM IN Attending Dr: Loyda Carlos [...] Hematologic/Lymphatic: Denies easy bruising and Denies lymphadenopathy [facility] Medical History (Updated 10/09/24 @ 13:11 by Vince Welsh MD) Chronic kidney disease Medicare annual wellness visit, subsequent Thrombocytopenia Chronic heart failure with preserved ejection fraction (HFpEF) Echo: LVEF 65%, LVH, normal RV size/function, no valve defect - 09/2022 Anemia Vitamin D deficiency 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 Pernicious anemia Mucopurulent chronic bronchitis 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 Left humeral fracture [...] 20 unit subcutDAILY 11/05/23 [History Confirmed 07/15/24] fynjyjud-la-ocqjs 300 mcg-K 60 mcg-lycop 600 mcg-lutein 300 [...] MPV Neut % (Auto) Lymph % (Auto) Kendall % (Auto) Eos % (Auto) Baso % (Auto) Nucleat RBC Rel Count Neut # (Auto) Lymph # (Auto) Kendall # (Auto) Eos # (Auto) Baso # [...] % (Auto) 69.2 Lymph % (Auto) 11.5 Kendall % (Auto) 18.2 Eos % (Auto) 0.5 Baso % (Auto) 0.6 Nucleat RBC Rel Count 0.1 Neut # (Auto) 3.2 Lymph # (Auto) 0.5 L Kendall # (Auto) 0.8 Eos # (Auto) 0.0 [...] MPV Neut % (Auto) Lymph % (Auto) Kendall % (Auto) Eos % (Auto) Baso % (Auto) Nucleat RBC Rel Count Neut # (Auto) Lymph # (Auto) Kendall # (Auto) Eos # (Auto) Baso # [...] signed by Mateusz Arellano MD> 10/10/[address] [facility] Work Phone: 1(193) 828-877702-08-2025 Progress note Author Sergio Oliva [facility] Date/TimeFebruary 2024 10:49am [place] [address] Pulmonology Progress Note Signed Patient: Jose L Ames MR#: [id number] 2655 : 1940 Acct:[id number] Age/Sex: 84 / M Adm Date: 5 Loc: Room: [address] [place] [address] Type: ADM IN Attending Dr: Loyda Carlos [...] signed by Sergio Oliva MD> 10/10/[address] [facility] Work Phone: 1(990) 461-165302-08-2025 [place] [address] Gastroenterology Consult Note Signed Patient: Jose L Ames MR#: [id number] 2655 : 1940 Acct:[id number] Age/Sex: 84 / M Adm Date: 5 Loc: Room: 7Z4507-9 Type: ADM IN Attending Dr: Loyda Carlos [...] Hematologic/Lymphatic: Denies easy bruising and Denies lymphadenopathy [facility] Medical History (Updated 10/09/24 @ 13:11 by Vince Welsh MD) Chronic kidney disease Medicare annual wellness visit, subsequent Thrombocytopenia Chronic heart failure with preserved ejection fraction (HFpEF) Echo: LVEF 65%, LVH, normal RV size/function, no valve defect - 09/2022 Anemia Vitamin D deficiency 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 Pernicious anemia Mucopurulent chronic bronchitis Lumbar spondylosis assisted (current) use of insulin Left humeral fracture [...] 20 unit subcutDAILY 11/05/23 [History Confirmed 07/15/24] gybtcxao-zf-crbqy 300 mcg-K 60 mcg-lycop 600 mcg-lutein 300 [...] MPV Neut % (Auto) Lymph % (Auto) Kendall % (Auto) Eos % (Auto) Baso % (Auto) Nucleat RBC Rel Count Neut # (Auto) Lymph # (Auto) Kendall # (Auto) Eos # (Auto) Baso # [...] % (Auto) 69.2 Lymph % (Auto) 11.5 Kendall % (Auto) 18.2 Eos % (Auto) 0.5 Baso % (Auto) 0.6 Nucleat RBC Rel Count 0.1 Neut # (Auto) 3.2 Lymph # (Auto) 0.5 L Kendall # (Auto) 0.8 Eos # (Auto) 0.0 [...] MPV Neut % (Auto) Lymph % (Auto) Kendall % (Auto) Eos % (Auto) Baso % (Auto) Nucleat RBC Rel Count Neut # (Auto) Lymph # (Auto) Kendall # (Auto) Eos # (Auto) Baso # [...] MD 10/10/24 120 Signed By: 10/10/24 1209 [facility]02-08-2025 [place] [address] Pulmonology Progress Note Signed Patient: Jose L Ames MR#: [id number] 2655 : 1940 Acct:[id number] Age/Sex: 84 / M Adm Date: 5 Loc: Room: [address] [place] [address] Type: ADM IN Attending Dr: Loyda Carlos [...] MD 10/10/24 1040 Signed By: 10/10/24 1049 [facility]02-08-2025 Progress note Author Loyda Carlos [facility] Date/TimeFebruary 2024 10:01pm [place] [address] Hospitalist Progress Note Signed Patient: Jose L Ames MR#: [id number] 2655 : 1940 Acct:[id number] Age/Sex: 84 / M Adm Date: 5 Loc: Room: [address] [place] [address] Type: ADM IN Attending Dr: Loyda Carlos [...] Noted that stroke alert was called at [place] and deemed by telestroke team due to [...] <Electronically signed by Loyda Carlos MD> 10/09/24 [facility] Work Phone: 1(398) 283-937902-07-2025 [place] [address] Hospitalist Progress Note Signed Patient: Jose L Ames MR#: [id number] 2655 : 1940 Acct:[id number] Age/Sex: 84 / M Adm Date: 5 Loc: Room: [address] [place] [address] Type: ADM IN Attending Dr: Loyda Carlos [...] consulted GI - Follow blood cultures from [facility] -Hold nephrotoxic medications - Hold b/p medications for now Syncope- likely syncopal episode at home from hypovolemia, hypotension - Carotid US in am, Echo in am - Up with assist, fall precautions - Noted that stroke alert was called at [place] and deemed by telestroke team due to [...] MD 10/09/24 1336 Signed By: 10/09/24 2201 [facility]02-07-2025 Radiology Diagnostic study note [facility] [place] [address] [place] [address] CT Scan Report Signed Patient: Jose L Ames MR#: [id number] 2655 : 1940 Acct:[id number] Age/Sex: 84 / M ADM Date: 5 Loc: Room: [address] [place] [address] Type: ADM IN Attending Dr: Loyda Carlos [...] Pascual Harris M.D.10/09/2024 4:57 PM Dictation Location: [place] [address] Transcribed By: [facility] 10/09/241656 Dictated By: Pascual Harrsi DO 10/09/241644 Signed By: 10/09/24 1657 [facility]02-07-2025 Consult note Author Vince Welsh [facility] Date/TimeFebruary 2024 1:16pm [place] [address] Pulmonology Consult Note Signed Patient: Jose L Ames MR#: [id number] 2655 : 1940 Acct:[id number] Age/Sex: 84 / M Adm Date: 5 Loc: Room: [address] [place] [address] Type: ADM IN Attending Dr: Loyda Carlos [...] Patient was accepted in transfer from the [facility] emergency department for altered mental status and [...] negative unless noted below or in HPI [facility] Medical History (Updated 10/09/24 @ 13:11 by Vince Welsh MD) Chronic kidney disease Medicare annual wellness visit, subsequent Thrombocytopenia Chronic heart failure with preserved ejection fraction (HFpEF) Echo: LVEF 65%, LVH, normal RV size/function, no valve defect - 09/2022 Anemia Vitamin D deficiency 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 Work Phone: 1(104) 779-721402-07-2025 [place] [address] Pulmonology Consult Note Signed Patient: Jose L Ames MR#: [id number] 2655 : 1940 Acct:[id number] Age/Sex: 84 / M Adm Date: 5 Loc: Room: [address] [place] [address] Type: ADM IN Attending Dr: Loyda Carlos [...] Patient was accepted in transfer from the [facility] emergency department for altered mental status and [...] negative unless noted below or in HPI [facility] Medical History (Updated 10/09/24 @ 13:11 by Vince Welsh MD) Chronic kidney disease Medicare annual wellness visit, subsequent Thrombocytopenia Chronic heart failure with preserved ejection fraction (HFpEF) Echo: LVEF 65%, LVH, normal RV size/function, no valve defect - 09/2022 Anemia Vitamin D deficiency 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 Pernicious anemia Mucopurulent chronic bronchitis Lumbar spondylosis assisted (current) use of insulin Left humeral fracture [...] 20 unit subcutDAILY 11/05/23 [History Confirmed 07/15/24] duqpbnin-be-denvc 300 mcg-K 60 mcg-lycop 600 mcg-lutein 300 [...] day #1 for patient transferred from the [facility] for presumptive hypovolemic shock due to dehydration [...] MD 5 1304 Signed By: 10/09/24 1316 [facility]02-07-2025 Radiology Diagnostic study note [facility] [place] [address] [place] [address] Ultrasound Report Signed Patient: Jose L Ames MR#: [id number] 2655 : 1940 Acct:[id number] Age/Sex: 84 / M ADM Date: 5 Loc: Room: [address] [place] [address] Type: ADM IN Attending Dr: Loyda Carlos [...] The velocities of the left common carotidartery omr801 cm/s peak systolic and 21.1 cm/s end-diastolic [...] Dean Barnard MD10/09/2024 9:26 AM Dictation Location: [place] [address] Tech: Sunita Box Transcribed By: KAYLEIGH 10/09/24925 Dictated By: Dean Barnard MD 10/09/24925 Signed By: 10/09/24925 [facility] Work Phone: 1(369) 760-409802-07-2025 History and physical note Author Lakesha Haskins [facility] Date/TimeFebruary 2024 4:20am [place] [address] Hospitalist H&P Signed Patient: Jose L Ames MR#: [id number] 2655 : 1940 Acct:[id number] Age/Sex: 84 / M Adm Date: 5 Loc: Room: [address] [place] [address] Type: ADM IN Attending Dr: Javier Murray MD Copies to: DO Javier Delatorre MD Paula G Smith, DRILLING MACHINE RUNNER~ HPI DATE OF EXAMINATION: 10/09/24 CHIEF COMPLAINT: I don't remember HISTORY OF PRESENT ILLNESS: Mr. Ames is an 84-year-old male with a PMH of CKD, diastolic heart failure?last EF 65%, BPH, T2DM, HTN, YASMANI, AAA who presented to [facility] emergency room for altered mental status and weakness. Patient seen and examined upon transfer here to [facility] at bedside. Heis very pleasant, alert and [...] day, denies alcohol or illicit drug use. [facility] chart review?patient arrived to [facility] via EMS for altered mental status, increased [...] unless noted in the HPI or below. 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 Work Phone: 1(245) 338-800902-07-2025 History and physical [address] [address] Hospitalist H&P Signed Patient: Jose L Ames MR#: [id number] : 1940 Acct:[id number] Age/Sex: 84 / M Adm Date: 5 Loc: Room: [address] [place] [address] Type: ADM IN Attending Dr: Javier Murray MD Copies to: DO Javier Delatorre MD Paula G Smith, DOROTHY~ HPI DATE OF EXAMINATION: 10/09/24 CHIEF COMPLAINT: I don't remember HISTORY OF PRESENT ILLNESS: Mr. Ames is an 84-year-old male with a PMH of CKD, diastolic heart failure?last EF 65%, BPH, T2DM, HTN, YASMANI, AAA who presented to [facility] emergency room for altered mental status and weakness. Patient seen and examined upon transfer here to [facility] at bedside. Heis very pleasant, alert and [...] day, denies alcohol or illicit drug use. [facility] chart review?patient arrived to [facility] via EMS for altered mental status, increased [...] unless noted in the HPI or below. 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 Left humeral fracture [...] 20 unit subcutDAILY 11/05/23 [History Confirmed 07/15/24] umshfhoj-gd-svdga 300 mcg-K 60 mcg-lycop 600 mcg-lutein 300 [...] for now - Follow blood cultures from [facility] - CBC, CMP, Mag in am - Hold nephrotoxic medications - Hold b/p medications for now Syncope- likely syncopal episode at home from hypovolemia, hypotension - Carotid US in am, Echo in am - Up with assist, fall precautions - Noted that stroke alert was called at [place] and deemed by telestroke team due to [...] Haskins APRN 10/09/24 0228 Signed By: 10/09/2431010/09/24419 [facility]02-07-2025 Evaluation note* Diagnosis Onset Date Resolution Status Admit Date ANGIE (acute kidney injury) acuteFebruary 2024 1:47amChronic heart failure with preserved ejection fraction (HFpEF)acuteFebruary 2024 1:47amChronic kidney diseaseacute October 09, 2024 1:47amDiarrheaacuteFebruary 2024 1:47amGastroenteritis acuteFebruary 2024 1:47amHypovolemic shockacuteFebruary 2024 1:47amOSA (obstructive sleep apnea)acuteFebruary 2024 1:47amPancytopeniaacute October 09, 2024 1:47amSepsisacuteFebruary 2024 1:47amSyncopeacute October 09, 2024 1:47amType 2 diabetes mellitus with hyperglycemiaacute October 09, 2024 1:47am [facility] Work Phone: 1(102) [phone] Evaluation note* Diagnosis Onset Date Resolution Status [...] 2 diabetes mellitus with hyperglycemiaacuteFebruary 2024 11:31am [facility] Work Phone: 1([phone]) 266-280402-07-2025 Evaluation note* Diagnosis Onset Date Resolution Status [...] anemiaacute October 22, 2024 8:53amThrombocytopeniaacuteFebruary 2024 8:53am [facility] Work Phone: 1(380) [phone] Evaluation note* Diagnosis Onset Date Resolution Status [...] anemiaacute October 22, 2024 8:53amThrombocytopeniaacuteFebruary 2024 8:53am [facility]53[facility] Work Phone: 1([phone]) 939-694402-07-2025 Evaluation note* Diagnosis Onset Date Resolution Status [...] 2 diabetes mellitus with hyperglycemiaacuteApril 2024 2:34pm [facility] Work Phone: 1(659) 128-987702-03-2025 History of Present illness Narrative* Jailyn Sepulveda, [...] wrist extensors , wrist flexor 5/5 , graphic design assistant strength 4+/5. LUE Strength deltoid , biceps , triceps , wrist extensors , wrist flexor 5/5 , graphic design assistant strength 4-/5. RLE Strength illopsoas, quadriceps, tibialis anterior, and gastrocnemius strength 5/5. LLE Strength illopsoas, quadriceps, tibialis anterior, and gastrocnemius strength 5/5. Normal tone x4 extremities. Bulk is normal. Sensory: Sensation is intact to light touch throughout distal extremities. Reflexes: Deep tendon reflexes diffusely hypoactive throughout. Coordination: Rzqsvm-fm-jmpn testing is normal Rapid alternating movements are normal Gait: Cane Review and summary of old records: [facility] 10/03/23: sitting 124/68 95 supine 130/78 97 standing 110/61 97 patient admits mild lightheadedness upon standing MRI of the brain at [facility] on 08/21/23: No acute intracranial process. [...] surgeon) MRI cervical spine without contrast at [facility] on 03/30/21: Mild discogenic disease without central [...] and return instructions documented in this encounterSaint John's [facility] [id number] Evaluation note* Diagnosis Onset Date Resolution Status [...] mellitus with hyperglycemiaacute July 15, 2024 1:53pm [facility] Work Phone: 1(199) 242-640611-04-2024 History of Present illness Narrative* Jailyn Sepulveda [...] wrist extensors , wrist flexor 5/5 , graphic design assistant strength 4+/5. LUE Strength deltoid , biceps , triceps , wrist extensors , wrist flexor 5/5 , graphic design assistant strength 4-/5. RLE Strength illopsoas, quadriceps, tibialis anterior, and gastrocnemius strength 5/5. LLE Strength illopsoas, quadriceps, tibialis anterior, and gastrocnemius strength 5/5. Normal tone x4 extremities. Bulk is normal. Sensory: Sensation is intact to light touch throughout distal extremities. Reflexes: Deep tendon reflexes diffusely hypoactive throughout. Coordination: Dnpjgz-ar-bggq testing is normal Rapid alternating movements are normal Gait: Cane Review and summary of old records: [facility] 10/03/23: sitting 124/68 95 supine 130/78 97 standing 110/61 97 patient admits mild lightheadedness upon standing MRI of the brain at [facility] on 08/21/24: No acute intracranial process. [...] surgeon) MRI cervical spine without contrast at [facility] on 03/30/21: Mild discogenic disease without central [...] and return instructions documented in this encounterSaint John's B[facility] [id number] Evaluation note* Diagnosis Onset Date Resolution Status Admit Date Vitamin B12 deficiency noneactiveSept2023 3:25pmChronic heart failure with preserved ejection fraction (HFpEF)[facility] 1:53pmChronic kidney disease [facility]Psych[facility]2023 1:53pmChronic venous insufficiency of lower extremity acutePsych[facility]2023 1:53pmGenerally unsteadyacuteThe [facility] 2023 1:53pm HTN (hypertension)[facility]Psych[facility]2023 1:53pmMedicare annual wellness visit, subsequentacuteJuly 15, 2024 1:53pmNicotine dependenceacutePsychiatric Hospital2023 1:53pmOSA (obstructive sleep apnea)[facility]Psych[facility]2023 1:53pm Pernicious anemiaacuteNov2023 1:53pmType 2 diabetes mellitus with hyperglycemiaacutePsychiatric Hospital2023 1:53pm [facility] Work Phone: 1(607) 950-567308-14-2024 Hospital Discharge instructions Patient Education 04/15/2024 13:28:07 [...] your health care provider. General instructions Take gycs-jpc-qbcdwou and prescription medicines only as told by [...] provider. Document Revised: 05/08/2021 Document Reviewed: 05/08/2021 [employer] Patient Education 2022 [employer]. Follow Up Care 01/29/2024 14:49:01 With:LORRAINE DAUGHERTY, Carlos A Hamilton, URL Address: [facility] [employer] [address] [place], [place] [id number]- When: Unknown [facility] 08-14-2024 NotePatient Education Obstetrics and Gynecology Overactive [...] health care provider. General instructions ? Take reej-xhu-rvwxngq and prescription medicines only as told by [...] help your health care (more content not included)...[facility]05-29-2024 Hospital Discharge instructions Patient Education 01/29/2024 [...] your health care provider. General instructions Take vuig-woz-islcgjd and prescription medicines only as told by [...] provider. Document Revised: 05/08/2021 Document Reviewed: 05/08/2021 [employer] Patient Education 2022 [employer]. Follow Up Care 01/28/2024 16:14:14 With:LORRAINE DAUGHERTY, Carlos A Hamilton, URL Address: [facility] [employer] [address] [place], [place] [id number]- When: Unknown [facility] 01-19-2024 Evaluation note* Encounter Date Diagnosis Assessment Notes Treatment Notes Treatment Clinical Notes Sep, Acute prostatitis (ICD-10 - N41. 0) [facility] Other 12-06-2023 Evaluation note* Encounter Date Diagnosis [...] HOB elevated, avoid back sleeping. Weight loss [facility] Other 11-21-2023 Evaluation note* Encounter Date Diagnosis Assessment Notes Treatment Notes Treatment Clinical Notes Jul, Pernicious anemia (ICD-10 - D51. 0) [facility] Other 10-17-2023 Evaluation note* Encounter Date Diagnosis Assessment Notes Treatment Notes Treatment Clinical Notes Jun, Pernicious anemia (ICD-10 - D51. 0) [facility] Other 09-06-2023 Evaluation note* Encounter Date Diagnosis [...] use, the patient reduces the risk for KS, CVA, HTN, cardiac dysrhythmias and sudden cardiac [...] to respiratory infections, vascular disease and cancers. [facility] Other 08-21-2023 Evaluation note* Encounter Date Diagnosis Assessment Notes Treatment Notes Treatment Clinical Notes Apr, Mucopurulent chronic bronchitis (ICD-10 - J41.1) [facility] Other 07-19-2023 Evaluation note* Encounter Date Diagnosis Assessment Notes Treatment Notes Treatment Clinical Notes Mar, Pernicious anemia (ICD-10 - D51. 0) [facility] Other 06-12-2023 Evaluation note* Encounter Date Diagnosis Assessment Notes Treatment Notes Treatment Clinical Notes Jan, Pernicious anemia (ICD-10 - D51. 0) [facility] Other 06-06-2023 Evaluation note* Encounter Date Diagnosis [...] Vasiliy, 2023Fatigue, unspecified type (ICD-10 - R53.83) [facility] Other 05-11-2023 Evaluation note* Encounter Date Diagnosis Assessment Notes Treatment Notes Treatment Clinical Notes December, Pernicious anemia (ICD-10 - D51. 0) [facility] Other 03-22-2023 Evaluation note* Encounter Date Diagnosis [...] Z79.4) Oct,Surgical wound infection (ICD-10 - T81.49XA) [facility] Other 02-24-2023 Evaluation note* Encounter Date Diagnosis [...] laterality (ICD-10 - J18.9)Review imaging results from [facility]. CT vs CXR f/u to ensure resolution [facility] Other 02-05-2023 Evaluation note* Encounter Date Diagnosis Assessment Notes Treatment Notes Treatment Clinical Notes Oct, Mucopurulent chronic bronchitis (ICD-10 - J41.1) [facility] Other 01-24-2023 Evaluation note* Encounter Date Diagnosis Assessment Notes Treatment Notes Treatment Clinical Notes Sep, Community acquired p neumonia, unspecified laterality (ICD-10 - J18.9) [facility] [employer] Other 01-24-2023 Evaluation note* Encounter Date Diagnosis Assessment Notes Treatment Notes Treatment Clinical Notes Sep, Mucopurulent chronic bronchitis (ICD-10 - J41.1) Sep,hronic venous insufficiency (ICD-10 - I87.2) [facility] [employer] Other 01-07-2023 Discharge summary Author Randolph Velasquez [facility] September 08, 2022 9:31amNote Date/TimeJan2022 9:31[place] [address] Discharge Summary Signed Patient: Jose L Ames MR#: [id number] 2655 : 1940 Acct:[id number] Age/Sex: 81 / M Adm Date: 3 Loc: Room: [address] [place] [address]: Randolph Velasquez MD Copies to: [...] course: Patient was transferred to [facility] with respiratory distress and hypoxic respiratory failure requiring the use of oxygen. I orderedCAT scan of the chest which showed bilateral infiltration suspected to have pneumonia. Patient had bilateral wheezing indicative of acute COPD exacerbationand bronchospasm. Blood culture from [place] came back negative thus far Patient was [...] ask your primary care provider to obtain [facility] records entirely to follow up on all of the abnormal physical, laboratory, and imaging findings that I have not addressed. Please return back to the emergency room or seek medical attention if your symptoms worsen or return. Discharging you from [facility] does not mean that your medical [...] % (Auto) 91.6, Lymph % (Auto) 3.6, Kend[place] % (Auto) 4.5, Eos % (Auto)0.0, Baso % (Auto) 0.3, Nucleat RBC Rel Count 0.0, Neut # (Auto) 11.9 H, Lymph #(Auto) 0.5 L, Kend[place] # (Auto) 0.6, Eos # (Auto) 0.0, [...] at rest or with minimal exertion. HEENT: [place] conjunctiva and NL buccal mucosa Neck: Supple, [...] []] Discharge Plan Discharge Plan Patient Disposition: Long Term Facility Additional Instructions: I may not have addressed or treated all of your medical illnesses or the abnormal blood work or imaging studies during this hospitalization. Please ask your primary care provider to obtain [facility] records entirely to follow up on [...] current CAT scan done at [facility]. Please collaborate with his primary care doctor [...] symptoms worsen or return. Discharging you from [facility] does not mean that your medical [...] PO HS fluticasone propionate [Flonase] 50 mcg/actuation [place],Suspension 1 spray INTRANASAL DAILY PRN (Reason: Congestion) hydrochlorothiazide 12.5 mg tablet 12.5 mg PO DAILY Follow Up: Liz Plata MD [Active Staff] - (Suspect underlying CAD) Vince Welsh MD [Active Staff] - (COPD. Abnormal CT of the chest) Erich Alejandro DO [Primary Care Provider] - (Follow-up with your Primary Care Provider after discharge from Rehab) Documented By: Randolph Velasquez MD 09/08/22 8531 Signed By: <Electronically signed by Randolph Velasquez MD> 09/08/22 0961 [facility] Work Phone: 1([phone]) 303-896101-06-2023 Progress note Author Randolph Velasquez [facility] September 07, 2022 9:02amNote Date/TimeJan2022 9:[address] [address] Hospitalist Progress Note Signed Patient: Jose L Ames MR#: [id number] : 1940 Acct:[id number] Age/Sex: 81 / M Adm Date: 3 Loc: 4 Room: [address] [place] [address] Type: ADM IN Attending Dr: Randolph Velasquez [...] and is sitting up in bed HEENT: [place] conjunctiva and NL buccal mucosa Neck: Supple, [...] Propionate 1 spray 09/04/22 23:34 Fluticasone Propionate [place] 120 [place]/16 Gm Bottle INTRANASAL 09/04/23 23:33 DAILY PRN [...] over the last 24 hours. We called [place] to inquire about the blood culture. Blood culture from [place] showed no growththus far. Swallow evaluation did [...] signed by Randolph Velasquez MD> 09/07/[address] [facility] Work Phone: [phone]) [phone] Progress note Author Randolph Velasquez [facility] September 06, 2022 9:15amNote Date/TimeJan2022 9:15[place] [id number] Hospitalist Progress Note Signed Patient: Jose L Ames MR#: [id number] : 1940 Acct:[id number] Age/Sex: 81 / M Adm Date: 3 Loc: Room: [address] [place] [address] Type: ADM IN Attending Dr: Randolph Vealsquez MD Copies to: ~ Date of Service: [...] and is sitting up in bed HEENT: [place] conjunctiva and NL buccal mucosa Neck: Supple, [...] Propionate 1 spray 09/04/22 23:34 Fluticasone Propionate [place] 120 [place]/16 Gm Bottle INTRANASAL 09/04/23 23:33 DAILY PRN [...] Units/3 Ml Insuln.Pen SUBCUT 09/06/23 09:09 DAILY [facility] Methylprednisolone Sodium Succinate 40 mg 09/05/22 [...] <Electronically signed by Randolph Velasquez MD> 09/06/[address] [facility] Work Phone: [phone]) [phone] Progress note Author Randolph Velasquez [facility] September 05, 2022 9:46amNote Date/TimeJan2022 9:[place] [address] Hospitalist Progress Note Signed Patient: Jose L Ames MR#: [id number] : 1940 Acct:[id number] Age/Sex: 81 / M Adm Date: 3 Loc: Room: [address] [place] [address] Type: ADM IN Attending Dr: Randolph Velasquez [...] patient is on oxygen. Morbidly obese HEENT: [place] conjunctiva and NL buccal mucosa Neck: Supple, [...] Mg/0.4 Ml Syringe SUBCUT 09/05/23 09:59 DAILY@1000 [facility] Fluticasone Propionate 1 spray 09/04/22 23:34 Fluticasone Propionate [place] 120 [place]/16 Gm Bottle INTRANASAL 09/04/23 23:33 DAILY PRN Congestion Furosemide 40 mg 09/05/22 08:00 Furosemide 40 Mg/4 Ml Vial IV-PUSH 09/05/23 07:59 BID@0800,1600 [facility] Glucose 0 gm 09/05/22 09:37 Dextrose [...] Units/3 Ml Insuln.Pen SUBCUT 09/05/23 11:59 TID.WM.HS [facility] Protocol Insulin Glargine 15 units 09/05/22 09:45 Insulin Glargine 300 Units/3 Ml Insuln.Pen SUBCUT 09/05/23 09:44 DAILY [facility] Methylprednisolone Sodium Succinate 40 mg 09/05/22 [...] 0.4 Mg Cap.Er.24h PO 09/05/23 20:59 QPM [facility] A&P - Hospitalist Assessment/Plan (1) Acute [...] ? Blood cultures were obtained at the [facility] -Counseling about tobacco addiction and [...] findings and plan. Patient was transferred from [facility]. Initial working diagnosis: -Sepsis secondary to community-acquired pneumonia: Started IV antibiotics. Blood cultures were collected at [place]. Follow-up and de-escalate accordingly. -Acute hypoxic respiratory failure secondary to pneumonia: Requiring oxygen. Wean off as tolerated -Suspect new onset CHF given elevated BNP, chest x-ray with bilateral vascular congestion, leg edema on exam. Given Lasix. Check echocardiogram Javier Jerry MD Documented By: Randolph Velasquez MD 09/05/22941 Signed By: <Electronically signed by Randolph Velasquez MD> 09/05/[address] [facility] Work Phone: 1([phone]) 552-409901-04-2023 History and physical note Author Javier Murray [facility] September 05, 2022 1:03amNote Date/TimeJanuary 2022 11:14pm[place] [address] Hospitalist H&P Signed Patient: Jose L Ames MR#: [id number] : 1940 Acct:[id number] Age/Sex: 81 / M Adm Date: 3 Loc: 4 Room: [address] [place] [address] Type: ADM IN Attending Dr: Clyde Wright DO Copies to: DO Javier Delatorre MD Paula G Smith, DRILLING MACHINE RUNNER Clyde Wright, DO~ HPI DATE OF EXAMINATION: 09/04/22 CHIEF COMPLAINT: shortness of breath, cough, fever, chills HISTORY OF PRESENT ILLNESS: Mr. Ames is an 81-year-old male with a PMH of T2DM, HTN, BPH that was transferred from the [facility] for elevated troponin, shortness of [...] pain with palpation. Patient arrived to the [facility] emergency room with a pulse [...] unless noted in the HPI or below. [facility] Social History Smoking Status: Former smoker [...] ? Blood cultures were obtained at the [facility] Pulmonary edema?recheck BNP ? Lasix [...] findings and plan. Patient was transferred from [facility]. Initial working diagnosis: -Sepsis secondary to community-acquired pneumonia: Started IV antibiotics. Blood cultures were collected at [place]. Follow-up and de-escalate accordingly. -Acute hypoxic respiratory failure secondary to pneumonia: Requiring oxygen. Wean off as tolerated -Suspect new onset CHF given elevated BNP, chest x-ray with bilateral vascular congestion, leg edema on exam. Given Lasix. Check echocardiogram Javier Jerry MD Documented By: Lakesha Haskins APRN 09/04/22 6337 Signed By: <Electronically signed by DOROTHY Haskins> 09/04/22 5676 <Electronically signed by Javier Murray MD> 09/05/22 0103 [facility] Work Phone: 1(120) [phone] History of Present illness Narrative* Patient is [...] multiple comorbidities, [facility] due to pneumonia, could not exclude diastolic heart failure, and had mild elevation of troponin. * Diagnosis is elevated troponin not related to myocardial injury, but possibly related to supply demand mismatch. * Patient has chronic diastolic heart failure * Shortness of breath class III multifactorial * EKG today sinus rhythm 85 first-degree AV block [place] interval 218 ms compared to EKG of 09/05/2022 heart rate has decreased. * 1 Uses cane as ambulatory aid, no falls [facility] DO Work Phone: Chief complaint Narrative - ReportedLARRY KWAKU is being seen for CAD referral S/P [facility] [employer] DO Work Phone: Chicc complaint Narrative - ReportedLARRY KWAKU is being seen for CAD referral S/P [facility] [employer] DO Work Phone: Evaluation + Plan note No data available for this section [facility] Evaluation + Plan note Future Appointments Appointment Date:04/15/2024 01:00:00 PM Scheduled Provider:Carlos A BAEZ MD Location:[facility] Appointment Type:URO Office Visit [facility] [facility] Plan note Future Appointments Appointment Date:10/14/2024 01:00:00 PM Scheduled Provider:Carlos A BAEZ MD Location:[facility] Appointment Type:URO Office Visit [facility] Evaluation + Plan note Future Appointments Appointment Date:08/18/2025 02:00:00 PM Scheduled Provider:Carlos A BAEZ MD Location:[facility] Appointment Type:URO Office Visit [facility] Evaluation note* Diagnosis Onset Date Resolution Status Acute respiratory failure with hypoxia acuteCommunity acquired pneumoniaacuteElevated troponinacuteHypertensionacute Multifactorial functional impairmentacuteType 2 diabetes mellitus[address] [facility] Work Phone: evaluation noteNo StatSocial Other Evaluation note* Diagnosis Onset Date Resolution Status Cervical spondylosis acuteChronic venous insufficiency of lower extremityacuteGenerally unsteadyacute HTN (hypertension)acuteHypercholesterolemiaacuteNicotine dependenceacuteOSA (obstructive sleep apnea)acutePernicious anemiaacuteType 2 diabetes mellitus with hyperglycemiaacute [facility] Work Phone: Evaluation note* Diagnosis Onset Date Resolution Status Chronic heart failure with preserved eje ction fraction (HFpEF) acuteChronic venous insufficiency of lower extremityacuteGenerally unsteadyacute HTN (hypertension)acuteHypercholesterolemiaacuteNicotine dependenceacuteOSA (obstructive sleep apnea)acutePernicious anemiaacuteStage 3b chronic kidney diseaseacuteType 2 diabetes mellitus with hyperglycemiaacute [facility] Work Phone: Evaluation note* Diagnosis Onset [...] kidney diseaseacuteType 2 diabetes mellitus with hyperglycemiaacute [facility] Work Phone: Evaluation note* Diagnosis Onset Date Resolution Status Chronic heart failure with preserved eje ction fraction (HFpEF) acuteChronic venous insufficiency of lower extremityacuteGenerally unsteadyacute HTN (hypertension)acuteNicotine dependenceacuteOSA (obstructive sleep apnea) acutePernicious anemiaacuteStage 3b chronic kidney diseaseacuteType 2 diabetes mellitus with hyperglycemiaacuteVitamin B12 deficiencynonea[facility] Work Phone: Evaluation note* Diagnosis Imbalance- Primary [...] HistoryPart of colon removed Surgical HistoryCATARACT EXTRACTION, [id number]/2021Surgical HistoryORIF, HUMERUS, [id number]/2021Surgical HistoryCOLON RESECTION, OPEN [id number]/2020 Surgical HistoryTONSILLECTOMYSurgical HistoryCOLONOSCOPYSurgical HistoryTURP WITH [id number] HistoryBellevue HospitalHospitalization HistorySEE SURGICAL Presentigo Other History general Narrative - ReportedNort [employer] Other History general Narrative - Reported* Type [...] HistoryPart of colon removed Surgical HistoryCATARACT EXTRACTION, [id number]/2021Surgical HistoryORIF, HUMERUS, [id number]/2021Surgical HistoryCOLON RESECTION, OPEN [id number]/2020 Surgical HistoryTONSILLECTOMYSurgical HistoryCOLONOSCOPYSurgical HistoryTURP WITH [id number] HistoryOSA (AHI 17, low O2 82)Hospitalization HistoryBellevue HospitalHospitalization HistorySEE SURGICAL Presentigo Other History of Present illness Narrative* 82-year-old [...] was prompted by a hospital stay at [facility].Patient was admitted in transfer from [facility], with hypoxemia cough congestion, treated [...] today sinus rhythm 85 first-degree AV block [place] interval 218 ms compared to EKG of [...] arise, * Sincerely, * Cathleen Lopez MD [facility] * I told patient that he should bring his inhalers and use them prior to his perfusion study. [facility] [address] DO Work Phone: Hospital Discharge instructions No data available for this section [facility] Discharge instructions Additional Instructions I may not have addressed or treated all of your medical illnesses or the abnormal blood work or imaging studies during this hospitalization. Please ask your primary care provider to obtain [facility] records entirely to follow up on [...] current CAT scan done at [facility]. Please collaborate with his primary care doctor [...] or your primary care provider. Thank you. [facility] Rehab to manage [...] Repeat urinalysis in 2 weeks - dx [facility] Work Phone: Progress note No data available for this section [facility] Progress note Author Angelo Iglesias [facility] ShawNote Date/TimeMarch 2024 8:44[facility] [place] [address] Cancer Center Note Signed Patient: Jose L Ames MR#: [id number] : 1940 Acct:[id number] Age/Sex: 84 / M Type: REG AMB [...] T2DM, HTN, YASMANI, AAA who presented to [facility] emergency room for altered mental status and weakness. [facility] chart review?patient arrived to [facility] via EMS for altered mental status, increased [...] day, denies alcohol or illicit druguse. At [facility], his iron studies were c/w anemia [...] mg (1/2 x 20 mg) PO BID [id number] [id number] mcg (Centrum Silver Men) 1 tab PO [...] up with labs and imaging for review. 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 Pernicious anemia Mucopurulent chronic bronchitis Lumbar spondylosis assisted (current) use of insulin Left humeral fracture [...] signed by Angelo Iglesias MD> 11/05/24 0944 [facility] Work Phone: Reason for referral (narrative)No reason for referral information availableNationwide Children'S Hospital Work Phone: Chief Complaint and Reason for Visit Chief Complaint Sepsis second to pne umonia Reason for Visit Acute respiratory fa ilure with hypoxia Community acquired pneumonia Elevated troponin Hypertension Multifactorial functional impairment Type 2 diabetes mellitus Chief Complaint 3 month follow up [id number] for VisitCervical spondylosis Chronic venous insufficiency of [...] :47am Type 2 diabetes mellitus with hyperglyce [facility] October 09, 2024 1:47am Hypovolemic shock [...] :47am Type 2 diabetes mellitus with hyperglyce [facility] October 09, 2024 1:47am Hypovolemic shock [...] 11:31am Type 2 diabetes mellitus with hyperglyce [facility] October 21, 2024 11:31am Pernicious anemia [...] :47am Type 2 diabetes mellitus with hyperglyce [facility] October 09, 2024 1:47am Hypovolemic shock [...] April 23, 2025 1 0:53am Nicotine dependence [place] 22nd, 2025 10 :53am Obesity April 23, [...] 2023 End: December 19, 2023Melissa Sneed APRN CLINICAL TRIALS SPECIALIST-CAttending ProviderActive Start: December 19, 2023 End: December [...] DateEnd Date Erich Alejandro MD [address] [place] [facility] [place] [id number] PCP - GeneralInternal Medicine01/30/24Team MemberRelationshipSpecialtyStart Date End Date Erich Alejandro MD [address] [place] [address] PCP - GeneralInternal Medicine01/30/24Team MemberRelationshipSpecialtyStart Date End Date Erich Alejandro MD [address] [place] [facility] [place] [address] PCP - GeneralInternal Medicine01/30/24 Jailyn Sepulveda NP [address] [place], [place] [id number] Nurse JbqspvsqljenHwzvfcbxc63/4/24 Vince Cherry DO [address] [place] [id number] Referring CcdabgmpdOjbalrwjv54/4/24Team MemberRelationshipSpecialtyStart DateEnd Date Erich Alejandro MD [address] [place] [facility] [place] [address] PCP - GeneralInternal Medicine01/30/24 Jailyn Sepulveda NP [address] [place], [place] [id number] Nurse EgqxebriydmdZzlnoykem93/4/24 Vince Cherry DO [address] [place] [id number] Referring SjllufiudPuuinljav90/4/24 Team Status: Inactive Member Role Status Jeremiah [...] and content) DATE CREATED AUTHOR 10/26/2022 [facility] DATE CREATED AUTHOR AUTHOR'S ORGANIZ ATION 03/09/2023 [facility] DATE CREATED AUTHOR AUTHOR'S ORGANIZ ATION 03/12/2023 [facility] DATE CREATED AUTHOR AUTHOR'S ORGANIZ ATION 03/12/2023 [employer] DATE CREATED AUTHOR AUTHOR'S ORGANIZ ATION 10/06/2024 [facility] DATE CREATED AUTHOR AUTHOR'S ORGANIZ ATION 11/04/2024 [facility] DATE CREATED AUTHOR AUTHOR'S ORGANIZ ATION 04/09/2025 [facility] DATE CREATED AUTHOR AUTHOR'S ORGANIZ ATION 05/03/2025 [facility] Goals (unrecognized section and [...] BE BASED ON THE PRIMARY CLINICAL RECORDS. [facility]. provides no warranty or guarantee of the accuracy or completeness of information in this document.
[2025-07-20] MEDS: LISINOPRIL 10 MG TABLET PO (09:54)
[2025-07-20] MEDS: METOPROLOL TARTRATE 25 MG TABLET 12.5 MG PO ×2 (09:54→21:49)
--- NOTE | 2025-07-20 10:21 | CM.NOTE ---
Pt updated on change in status, pt now inpatient status. Important Message From Medicare discussed with pt, pt verbalizes understanding and signs paper. Original given to pt and copy placed on pt's chart.
--- NOTE | 2025-07-20 11:35 | SWNOTE1 ---
SW reviewed therapy evals and OT recommends home health and PT recommends returning home with family. SW discussed recommendations with pt. SW advised it would be beneficial to allow home health services to come in for a few visits to help with the transition home. SW let him know it would be therapy and a nurse. Pt is in agreement with the recommendation. He does not have a preference on a HH company. SW [facility] Pt is in agreement. SW asked if SW could call anyone in the family to update? Pt voiced there is no need to. SW asked if his would be in this afternoon. Pt voiced yes she would be in. SW to stop back by and provide patient and with list from Medicare.gov with HH companies on it. Pt in agreement.
[2025-07-20] MEDS: INSULIN ASPART 300 UNIT/3 ML PEN SUBQ ×3 (11:48→21:51)
--- NOTE | 2025-07-20 12:27 | PM.CN ---
Consult Note: HPI Data of Consult Patient: new to practice Consult date: 07/20/25 Requesting Physician: Randolph Velasquez MD Primary Care Provider: Erich Key DO Consult Narrative Reason for consult: left leg/ankle cellulitis Narrative: Patient is a pleasant 84-year-old male with type 2 diabetes who was admitted yesterday for left lower extremity cellulitis and concern for sepsis. Patient relates that over the weekend he was very active with household and yard chores and does not recall any injury. Then on Saturday he noticed his left lateral leg/ankle was red hot and swollen. He also related to feeling weak, fatigued and febrile. He presented to the emergency department and laboratory evaluation revealed leukocytosis of 13,300, CRP of 12.88, hyperglycemia and anemia. X-rays were obtained and negative for acute bony pathology. He was placed on broad-spectrum antibiotics and I was consulted for possible surgical intervention. Today at bedside patient is alert and overall relates to feeling much better. He relates to left ankle pain with direct pressure but denies pain with ankle and hindfoot range of motion. He denies history of diabetic foot ulceration (hemoglobin A1c 6.4). He denies symptoms of claudication and rest pain. cc:: CC: Randolph Velasquez MD Review of Systems ROS Status of ROS 10 or more systems reviewed and unremarkable except as noted in history and below [facility] Social History (System 10/12/24 @ 13:10 by Leslie Booth) Highest level of school completed/degree received: high school graduate Little interest or pleasure in doing things: not at all Feeling down, depressed, or hopeless: not at all Meds Home Medications and Allergies Home Medications ?Medication ?Instructions ?Recorded ?Confirmed ?Type lisinopril 20 mg tablet 10 mg PO BID 10/08/24 07/19/25 History potassium chloride 10 mEq 10 meq PO DAILY 10/08/24 07/19/25 History tablet,extended release semaglutide 0.25 mg or 0.5 mg (2 0.5 mg subcut QWEEK 10/08/24 07/19/25 History mg/3 mL) subcutaneous pen injector (Rei-Frontier) aspirin 81 mg chewable tablet 81 mg PO DAILY 07/19/25 07/19/25 History (Sarah Chewable Low Dose Aspirin) calcium carbonate (Oyster Shell 500 mg PO DAILY 07/19/25 07/19/25 History Calcium) cholecalciferol (vitamin D3) 25 50 mcg PO BID 07/19/25 07/19/25 History mcg (1,000 unit) capsule cyanocobalamin (vitamin B-12) 1,000 mcg subcut .ONCE A MONTH 07/19/25 07/19/25 History 1,000 mcg/mL injection solution insulin glargine 100 unit/mL 10 unit subcut BID 07/19/25 07/19/25 History subcutaneous solution (Lantus U-100 Insulin) multivitamin-ferrous 1 tab PO QDAY 07/19/25 07/19/25 History fumarate-folic acid 18 mg-400 mcg tablet (Centrum Complete) torsemide 10 mg tablet 10 mg PO .COMPLEX 07/19/25 07/19/25 History Allergies Allergy/AdvReac Type Severity Reaction Status Date / Time No Known Drug Allergies Allergy Verified 07/18/25 23:47 Exam Narrative Exam Narrative: Skin: Dry loosely attached scab on anterior lateral left leg which is easily removed noting healthy skin. No visible ulceration but there is erythema and edema to left lateral ankle. Skin on right lower extremity is unremarkable Vascular: Feet are warm with capillary refill of less than 5 seconds. Faintly palpable posterior tibial pulse Musculoskeletal: Pain on palpation over the lateral ankle specifically near the peroneal tendons just proximal to the tibiotalar joint. Passive and active range of motion of the ankle is supple and pain-free. Muscle strength is equal and symmetric with no focal deficit. Lesser toe contractures are notable. No fluctuance. Constitutional Vital Signs, click to edit/add: Last Vital Signs Temp 98.2 F 07/20/25 08:00 Pulse 84 07/20/25 08:00 Resp 18 07/20/25 08:00 BP 159/82 H 07/20/25 08:00 Pulse Ox 91 L 07/20/25 08:00 O2 Del Method Room Air 07/20/25 08:00 Results Labs Labs: Short CBC 07/20/25 Range/Units 06:43 WBC 8.6 (4.0-11.0) 10^3/uL Hgb 10.5 L (14.0-18.0) g/dL Hct 30.5 L (42.0-54.0) % Plt Count 74 L (150-450) 10^3/uL BMP 07/20/25 06:43 Sodium 139 Potassium 3.8 Chloride 106 Carbon Dioxide 26.6 BUN 13.0 Creatinine 1.14 Glucose 133 H Calcium 8.0 L Assessment and Plan Assessment and Plan (1) Sepsis: (2) Left leg cellulitis: Plan Patient was seen and evaluated. I also discussed the case with Dr. Velasquez. Given there is no pain out of proportion or significant pain with range of motion of his ankle or hindfoot I do not believe arthrocentesis is necessary and concern for septic joint is very low. Patient has improved subjectively and objectively since admission on broad-spectrum antibiotics. Patient may be discharged on p.o. antibiotics per the hospitalist. Weightbearing as tolerated. Use of walker or cane may be necessary to prevent falls Patient may follow-up with me in my podiatry office 1 week from discharge Please call with any updates or changes as I will sign off for now.
[2025-07-20 12:56] VITALS: BP 150/83; PULSE 65; TEMP 36.8; O2SAT 92
--- NOTE | 2025-07-20 13:35 | SWNOTE1 ---
BALJEET stopped in to speak with pt and his , Iva, in the room. Pt was on phone, but gave permission to speak with his . BALJEET let pt's know the recommendations of home health services. Pt's in agreement and stated they have both had it in the past. She does not remember the company and does not have a preference. BALJEET provided pt's with list from Medicare.gov, she again voiced no preference. BALJEET to send the referral to [facility].
--- NOTE | 2025-07-20 13:37 | SWNOTE1 ---
Referral sent to [facility]. Referral included face sheet, ED note, H&P, provider notes, case management report, and PT/OT notes.
[2025-07-20 16:26] VITALS: BP 150/84; PULSE 76; TEMP 36.6; O2SAT 94
[2025-07-20 19:47] VITALS: BP 131/68; PULSE 81; TEMP 36.4; O2SAT 93
[2025-07-20] MEDS: INSULIN GLARGINE 300 UNIT/3 ML INSULN.PEN 14 UNIT SQ (21:50)
[2025-07-21] VITALS (7 sets, daily range): BP systolic 143–180; BP diastolic 76–88; PULSE 63–87; TEMP 36.4–36.6; O2SAT 92–95
[2025-07-21] MEDS: ACETAMINOPHEN 325 MG TABLET 650 MG PO ×3 (05:57→21:14)
[2025-07-21 06:02] LABS: Anion Gap 10.0; Blood Urea Nitrogen 13.0 mg/dL (7.0-18.0); Calcium 8.1 mg/dL (8.5-10.1); Carbon Dioxide 25.9 mmol/L (21.0-32.0); Chloride 110 mmol/L (98-107); Estimated GFR (African America >60 (>=60 mL/min/1.73m^2); Estimated GFR (Non-African Ame >60 (>=60 mL/min/1.73m^2); Glucose 138 mg/dL (74-106); Potassium 3.9 mmol/L (3.5-5.1); Sodium 142 mmol/L (136-145)
--- NOTE | 2025-07-21 08:20 | CM.NOTE ---
Rounds made with Dr. Velasquez, discussed plan of care with pt. Continue IV antibiotics as ordered. No discharge today.
[2025-07-21] MEDS: LISINOPRIL 10 MG TABLET PO ×3 (08:27→21:16)
[2025-07-21] MEDS: ASPIRIN 81 MG TAB.CHEW PO (08:27)
[2025-07-21] MEDS: VANCOMYCIN HCL 1,500 MG in 0.9 % SODIUM CHLORIDE 500 ML 250 MG IV (08:28)
[2025-07-21] MEDS: METOPROLOL SUCCINATE 25 MG TAB.ER.24H PO (08:30)
[2025-07-21] MEDS: INSULIN GLARGINE 300 UNIT/3 ML INSULN.PEN 14 UNIT SQ ×2 (08:31→21:14)
--- NOTE | 2025-07-21 10:35 | P.PN_ITS ---
Progress Note: Subjective Subjective Interval history: Patient continues to report pain in the left leg on the lateral aspect of the left graves down to the ankle. No chest pain. No abdominal pain. Exam Narrative Exam Narrative: [pt is awake and alert. oriented to place, time and person, no confusion or disorientation. HEENT: [place] conjunctiva and NL buccal mucosa Neck: Very supple, no tenderness Endocrine: No Thyromegaly. Vascular: No JVD or carotid bruit. Lymphatic: No cervical lymphadenopathy. Chest: CTA no DTP. Heart RRR, no extra sound or murmur. Abd: Soft, no tenderness, no rebound and no rigidity. Increase abd girth therefore clinically I could not exclude the possibility of intra abd mass or organomegaly. LE: No cyanosis or clubbing, no varices or edema. Scabbing of the skin noted on the anterolateral aspect of the left graves with surrounding erythema. Erythema also down to the lateral aspect of the graevs to the ankle. No persistent small ankle effusion but patient is tender on the lateral aspect of the ankle. Neuro: A A O. Nl speech, comprehension and attention. Nl and symetrical motor and tone examination through out. No confusion or disorientation. []] Constitutional Vital Signs, click to edit/add: Last Vital Signs Temp 97.9 F 07/21/25 07:58 Pulse 79 07/21/25 07:58 Resp 18 07/21/25 07:58 BP 180/87 H 07/21/25 07:58 Pulse Ox 94 L 07/21/25 07:58 O2 Del Method Room Air 07/21/25 07:58 Progress Note: Objective Labs Labs: [facility] 07/21/25 04:45 Sodium 142 Potassium 3.9 Chloride 110 H Carbon Dioxide 25.9 BUN 13.0 Creatinine 0.93 Glucose 138 H Calcium 8.1 L Progress Note: A&P Assessment and Plan (1) Sepsis: (2) Left leg cellulitis: Plan Sepsis present on admission associated with multiple sepsis related organ dysfunction as listed below Worsening erythema, induration and tenderness on the lateral aspect of the left graves and ankle. Development of mild left lateral ankle effusion. ANGIE secondary to sepsis, resolved. Confusion, disorientation, metabolic encephalopathy, septic encephalopathy, resolved. Lactic acid elevation, resolved. Leukocytosis have resolved. Hypotension, early shock, resolved. White count is trending down from 13 to 8. CRP is trending down from 13 to 9 Blood cultures is negative. CT abdomen does not show any acute intra-abdominal process UA is negative for UTI CT chest showed faint tree-in-bud opacity. Patient reported that he has moist cough. Start patient on doxycycline 100 mg twice daily Discontinue ceftriaxone and continue vancomycin. CRP is trending down. Requested a podiatry consultation in case patient needs ankle aspiration. Patient was seen by stone derrickman and rigger Dr. Law who did not recommend aspiration of the joint due to low suspicion of septic joint. Hypertension. Patient presented with hypotension Hypotension had resolved Blood pressure is climbing up. Resumed BP meds. Adjust meds to keep systolic between 135 and 155. CKD stage III, not far from baseline. ANGIE secondary to sepsis had resolved. UA showed only few WBC Avoid nephrotoxic drugs. Monitor urine output. Diabetes with hyperglycemia Resumed home insulin. Add sliding scale. Continue to titrate to keep blood sugar between 125 and 180. Thrombocytopenia. Appears to be chronic dating back to 2022. Acute worsening thrombocytopenia could be related to sepsis. Continue to monitor platelet count Avoid anticoagulation and tell platelets goes above 90. DVT prophylax Avoid pharmacological intervention due to thrombocytopenia with a platelet count at 79 SCD for DVT prophylaxis Encourage ambulation. Avoid SCD due to infected left leg. Functional impairment secondary to above Patient lives with his who is unable to take care of him. Requested PT OT eval and treatment Requested case management consultation to see if patient qualifies to go to SNF care. Anemia, no evidence of acute blood loss. Patient will likely require to have anemia workup to be done in the outpatient setting to be handled by PCP in collaboration with other needed outpatient providers. This may include but not limited to EGD, colonoscopy, referral to see hematology and other needed age-appropriate cancer screening. Chronic, subacute medical conditions not listed above, abnormal labs and imaging, incidental findings seen on labs and or imaging. These would need to be addressed. Could be addressed later on or in the outpatient setting by PCP collaboration with other needed outpatient providers when time and condition are appropriate. I discussed this case with his and daughter on 07/19 outside his room. I discussed this case with his daughter and son-in-law at the bedside on 07/20 I provided him information about his disease, prognosis, expectation and trajectory. I answered all her questions
[2025-07-21] MEDS: DOXYCYCLINE MONOHYDRATE 100 MG CAPSULE PO ×2 (11:26→21:14)
[2025-07-21] MEDS: TORSEMIDE 20 MG TABLET 10 MG PO (11:26)
[2025-07-21] MEDS: INSULIN ASPART 300 UNIT/3 ML PEN SUBQ ×3 (11:26→21:15)
--- NOTE | 2025-07-21 11:27 | PT.DAILY ---
Physical Therapy Daily Note PT Daily Note/Assess Start: 07/20/25 11:11 Freq: Status: Active Protocol: Document 07/21/25 11:25 BHARATHI (Rec: 07/21/25 11:27 BHARATHI [id number]) Physical Therapy Daily Note/Assessment Time In/Time Out Time In 11:02 Time Out 11:12 Pain In Pain N/A Pain Out Pain N/A Subjective Subjective Pt sitting in BS chair upon arrival. agrees to PT. Denies pain currently. Therapeutic Exercise Time Therapeutic Exercise 4 Minutes (minutes) Therapeutic Exercise 0 Units Therapeutic Exercise Treatment Therapeutic Exercise Seated bilat LE ex complete 10x ea in bS chair to Treatment improve functional mobility prior to gait and transfers . Therapeutic Activity Time Therapeutic Activity 6 Minutes (minutes) Therapeutic Activity 1 Units Therapeutic Activity Treatment Chair Transfer Contact Guard Assist Ability Therapeutic Activity Sit>stand from BS chair CGA. pt amb 120' with RW, CGA/ Comments close SBA for safety. Slow vic but steady. Returned to BS chair with call light within reach and chair alarm activated. Total Physical Therapy Time Total Therapy 10 Minutes Total Physical 1 Therapy Units Summary Daily Note Summary Improved gait endurance with RW.
--- NOTE | 2025-07-21 11:55 | PM.PN ---
Progress Note: Subjective Subjective Interval history: Patient seen at bedside. He relates to overall feeling better and was out of bed yesterday and walked to the hallway and back a couple of times. He relates to having continued pain over the left lateral ankle which is present only with direct pressure over the lateral malleolus. He believes the redness has gotten better yet the swelling has not changed. He denies systemic signs of infection specifically relating to good appetite, and denying nausea, vomiting, chest pain, calf pain and shortness of breath Exam Narrative Exam Narrative: Skin: All skin intact without visible ulceration. Erythema has improved over the left lateral ankle but is still present encompassing 5 cm circumferentially around the lateral malleolus. Vascular: Posterior tibial pulses are palpable. No calf pain on squeeze. Moderate nonpitting edema over left ankle and dorsal foot with mild nonpitting edema on right dorsal foot and ankle Musculoskeletal: POP directly over the lateral malleolus. No fluctuation in soft tissues. Active and passive range of motion of the ankles is pain-free Constitutional Vital Signs, click to edit/add: Last Vital Signs Temp 97.8 F 07/21/25 11:20 Pulse 87 07/21/25 11:20 Resp 16 07/21/25 11:20 BP 170/78 H 07/21/25 11:20 Pulse Ox 95 07/21/25 11:20 O2 Del Method Room Air 07/21/25 11:20 Progress Note: Objective Labs Labs: [facility] 07/21/25 04:45 Sodium 142 Potassium 3.9 Chloride 110 H Carbon Dioxide 25.9 BUN 13.0 Creatinine 0.93 Glucose 138 H Calcium 8.1 L Progress Note: A&P Assessment and Plan (1) Sepsis: (2) Left leg cellulitis: Plan Patient seen at bedside. He has improved from yesterday however still having pain and erythema over the left lateral ankle. He has been switched to doxycycline. No surgical intervention planned at this point however please call me directly with any issues or changes in the patient's status. He may continue weightbearing as tolerated. He should follow-up in my office within 1 week of discharge
--- NOTE | 2025-07-21 14:24 | SWNOTE1 ---
BALJEET faxed updates to [facility]. This included; podiatry consult and note from today, hospitalist note from today, and PT/OT notes from today.
[2025-07-22] VITALS (7 sets, daily range): BP systolic 135–173; BP diastolic 52–92; PULSE 73–86; TEMP 36.3–37.1; O2SAT 92–95
[2025-07-22] MEDS: ACETAMINOPHEN 325 MG TABLET 650 MG PO ×3 (05:01→21:29)
[2025-07-22 05:17] LABS: Hematocrit 34.3 % (42.0-54.0); Hemoglobin 11.5 g/dL (14.0-18.0); Mean Corpuscular HGB Conc 33.5 g/dL (29.9-35.2); Mean Corpuscular Hemoglobin 33.8 pg (25.9-34.0); Mean Corpuscular Volume 100.9 fL (80.0-94.0); Platelet Count 84 10^3/uL (150-450); Red Blood Count 3.40 10^6/uL (4.70-6.10); White Blood Count 4.6 10^3/uL (4.0-11.0)
[2025-07-22] MEDS: VANCOMYCIN HCL 1,500 MG in 0.9 % SODIUM CHLORIDE 500 ML 250 MG IV (07:56)
--- NOTE | 2025-07-22 08:15 | CM.NOTE ---
Rounds made with Dr. Velasquez, no discharge today. Discussed with pt plan of care, continue IV antibiotics as ordered. Pt will discharge with [facility].
--- NOTE | 2025-07-22 10:23 | P.PN_ITS ---
Progress Note: Subjective Subjective Interval history: Patient is feeling slightly better. No acute symptoms otherwise. Exam Narrative Exam Narrative: [pt is awake and alert. oriented to place, time and person, no confusion or disorientation. HEENT: [place] conjunctiva and NL buccal mucosa Neck: Very supple, no tenderness Endocrine: No Thyromegaly. Vascular: No JVD or carotid bruit. Lymphatic: No cervical lymphadenopathy. Chest: CTA no DTP. Heart RRR, no extra sound or murmur. Abd: Soft, no tenderness, no rebound and no rigidity. Increase abd girth therefore clinically I could not exclude the possibility of intra abd mass or organomegaly. LE: No cyanosis or clubbing, no varices or edema. Scabbing of the skin noted on the anterolateral aspect of the left graves with surrounding erythema. Some resolution of the erythema also down to the lateral aspect of the graves to the ankle. No persistent small ankle effusion but patient is tender on the lateral aspect of the ankle. Neuro: A A O. Nl speech, comprehension and attention. Nl and symetrical motor and tone examination through out. No confusion or disorientation. []] Constitutional Vital Signs, click to edit/add: Last Vital Signs Temp 98.7 F 07/22/25 08:14 Pulse 86 07/22/25 08:14 Resp 16 07/22/25 08:14 BP 173/92 H 07/22/25 08:14 Pulse Ox 95 07/22/25 08:14 O2 Del Method Room Air 07/22/25 08:14 Progress Note: Objective Labs Labs: Short CBC 07/22/25 Range/Units 04:54 WBC 4.6 (4.0-11.0) 10^3/uL Hgb 11.5 L (14.0-18.0) g/dL Hct 34.3 L (42.0-54.0) % Plt Count 84 L (150-450) 10^3/uL Progress Note: A&P Assessment and Plan (1) Sepsis: (2) Left leg cellulitis: Plan Sepsis present on admission associated with multiple sepsis related organ dysfunction as listed below Worsening erythema, induration and tenderness on the lateral aspect of the left graves and ankle. Development of mild left lateral ankle effusion. ANGIE secondary to sepsis, resolved. Confusion, disorientation, metabolic encephalopathy, septic encephalopathy, resolved. Lactic acid elevation, resolved. Leukocytosis have resolved. Hypotension, early shock, resolved. White count is trending down from 13 to 8 and down to 4.6. CRP is trending down from 13 to 9 and down to 5 Blood cultures is negative. CT abdomen does not show any acute intra-abdominal process UA is negative for UTI. Urine culture showed mixed organism. CT chest showed faint tree-in-bud opacity. Patient reported that he has moist cough. Started patient on doxycycline 100 mg twice daily Discontinue ceftriaxone and continue vancomycin. CRP is trending down. Requested a podiatry consultation in case patient needs ankle aspiration. Patient was seen by felt hat flanging operator Dr. Law who did not recommend aspiration of the joint due to low suspicion of septic joint. Hypertension. Patient presented with hypotension Hypotension had resolved Blood pressure is climbing up. Resumed BP meds. Increase lisinopril up to 15 mg twice a day. Adjust meds to keep systolic between 135 and 155. CKD stage III, not far from baseline. ANGIE secondary to sepsis had resolved. UA showed only few WBC Avoid nephrotoxic drugs. Monitor urine output. Diabetes with hyperglycemia Resumed home insulin. Add sliding scale. Continue to titrate to keep blood sugar between 125 and 180. Thrombocytopenia. Appears to be chronic dating back to 2022. Acute worsening thrombocytopenia could be related to sepsis. Continue to monitor platelet count Avoid anticoagulation and tell platelets goes above 90. DVT prophylax Avoid pharmacological intervention due to thrombocytopenia with a platelet count at 84 SCD for DVT prophylaxis Encourage ambulation. Avoid SCD due to infected left leg. Functional impairment secondary to above Patient lives with his who is unable to take care of him. Requested PT OT eval and treatment Requested case management consultation to see if patient qualifies to go to SNF care. Anemia, no evidence of acute blood loss. Patient will likely require to have anemia workup to be done in the outpatient setting to be handled by PCP in collaboration with other needed outpatient providers. This may include but not limited to EGD, colonoscopy, referral to see hematology and other needed age-appropriate cancer screening. Chronic, subacute medical conditions not listed above, abnormal labs and imaging, incidental findings seen on labs and or imaging. These would need to be addressed. Could be addressed later on or in the outpatient setting by PCP collaboration with other needed outpatient providers when time and condition are appropriate. I discussed this case with his and daughter on 07/19 outside his room. I discussed this case with his daughter and son-in-law at the bedside on 07/20 I provided him information about his disease, prognosis, expectation and trajectory. I answered all her questions
[2025-07-22] MEDS: DOXYCYCLINE MONOHYDRATE 100 MG CAPSULE PO ×2 (10:40→21:29)
[2025-07-22] MEDS: ASPIRIN 81 MG TAB.CHEW PO (10:40)
[2025-07-22] MEDS: INSULIN GLARGINE 300 UNIT/3 ML INSULN.PEN 14 UNIT SQ ×2 (10:40→21:31)
[2025-07-22] MEDS: METOPROLOL SUCCINATE 25 MG TAB.ER.24H PO (10:42)
[2025-07-22] MEDS: TORSEMIDE 20 MG TABLET 10 MG PO (10:42)
[2025-07-22] MEDS: LISINOPRIL 10 MG TABLET 15 MG PO ×2 (10:43→21:29)
[2025-07-22] MEDS: INSULIN ASPART 300 UNIT/3 ML PEN SUBQ ×3 (11:42→21:32)
--- NOTE | 2025-07-22 15:35 | SWNOTE1 ---
BALJEET faxed updates to [facility]. Updates included PT/OT from today and physician note from today. Pt improved with therapy and did walk 300 feet with walker.
[2025-07-23] MEDS: VANCOMYCIN HCL 1,500 MG in 0.9 % SODIUM CHLORIDE 500 ML 250 MG IV ×2 (01:21→21:11)
[2025-07-23 04:00] VITALS: BP 143/67; PULSE 71; TEMP 36.4; O2SAT 93
[2025-07-23] MEDS: ACETAMINOPHEN 325 MG TABLET 650 MG PO ×3 (05:15→21:12)
[2025-07-23 06:05] LABS: Anion Gap 10.8; Blood Urea Nitrogen 14.0 mg/dL (7.0-18.0); Calcium 8.2 mg/dL (8.5-10.1); Carbon Dioxide 29.1 mmol/L (21.0-32.0); Chloride 105 mmol/L (98-107); Estimated GFR (African America >60 (>=60 mL/min/1.73m^2); Estimated GFR (Non-African Ame >60 (>=60 mL/min/1.73m^2); Glucose 95 mg/dL (74-106); Potassium 3.9 mmol/L (3.5-5.1); Sodium 141 mmol/L (136-145)
[2025-07-23 08:29] VITALS: BP 180/78; PULSE 71; TEMP 36.6; O2SAT 93
[2025-07-23] MEDS: DOXYCYCLINE MONOHYDRATE 100 MG CAPSULE PO ×2 (09:29→21:11)
[2025-07-23] MEDS: TORSEMIDE 20 MG TABLET 10 MG PO (09:29)
[2025-07-23] MEDS: ASPIRIN 81 MG TAB.CHEW PO (09:29)
[2025-07-23] MEDS: LISINOPRIL 10 MG TABLET 15 MG PO (09:30)
[2025-07-23] MEDS: INSULIN GLARGINE 300 UNIT/3 ML INSULN.PEN 14 UNIT SQ ×2 (09:30→21:11)
[2025-07-23] MEDS: METOPROLOL SUCCINATE 25 MG TAB.ER.24H PO (09:30)
--- NOTE | 2025-07-23 11:01 | PM.PN ---
Progress Note: Subjective Subjective Interval history: Patient is feeling slightly better. No acute symptoms otherwise. Less redness and discomfort. Exam Narrative Exam Narrative: [pt is awake and alert. oriented to place, time and person, no confusion or disorientation. HEENT: [place] conjunctiva and NL buccal mucosa Neck: Very supple, no tenderness Endocrine: No Thyromegaly. Vascular: No JVD or carotid bruit. Lymphatic: No cervical lymphadenopathy. Chest: CTA no DTP. Heart RRR, no extra sound or murmur. Abd: Soft, no tenderness, no rebound and no rigidity. Increase abd girth therefore clinically I could not exclude the possibility of intra abd mass or organomegaly. LE: No cyanosis or clubbing, no varices or edema. Scabbing of the skin noted on the anterolateral aspect of the left graves with surrounding erythema. Some noticeable resolution of the erythema also down to the lateral aspect of the graves to the ankle. Resolution of small ankle effusion but patient is tender on the lateral aspect of the ankle. Patient is able to flex and extend his ankle fully without limitation of range of motion Neuro: A A O. Nl speech, comprehension and attention. Nl and symetrical motor and tone examination through out. No confusion or disorientation. []] Constitutional Vital Signs, click to edit/add: Last Vital Signs Temp 97.8 F 07/23/25 08:29 Pulse 71 07/23/25 08:29 Resp 18 07/23/25 08:29 BP 180/78 H 07/23/25 08:29 Pulse Ox 93 L 07/23/25 08:29 O2 Del Method Room Air 07/23/25 08:29 Progress Note: Objective Labs Labs: [facility] 07/23/25 04:51 Sodium 141 Potassium 3.9 Chloride 105 Carbon Dioxide 29.1 BUN 14.0 Creatinine 1.15 Glucose 95 Calcium 8.2 L Progress Note: A&P Assessment and Plan (1) Sepsis: (2) Left leg cellulitis: Plan Sepsis present on admission associated with multiple sepsis related organ dysfunction as listed below Worsening erythema, induration and tenderness on the lateral aspect of the left graves and ankle. Development of mild left lateral ankle effusion. ANGIE secondary to sepsis, resolved. Confusion, disorientation, metabolic encephalopathy, septic encephalopathy, resolved. Lactic acid elevation, resolved. Leukocytosis have resolved. Hypotension, early shock, resolved. White count is trending down from 13 to 8 and down to 4.6. CRP is trending down from 13 to 9 and down to 5 Blood cultures is negative. CT abdomen does not show any acute intra-abdominal process UA is negative for UTI. Urine culture showed mixed organism. CT chest showed faint tree-in-bud opacity. Patient reported that he has moist cough. Started patient on doxycycline 100 mg twice daily Discontinue ceftriaxone and continue vancomycin. CRP is trending down. Requested a podiatry consultation in case patient needs ankle aspiration. Patient was seen by cyanide furnace operator Dr. Law who did not recommend aspiration of the joint due to low suspicion of septic joint. Noticeable improvement of erythema, induration and tenderness at the lateral aspect of the left leg and ankle. Complete range of motion of the ankle. Potentially patient could be discharged home but patient does not feel comfortable 100% going home and requesting another day of hospitalization. Hypertension. Patient presented with hypotension Hypotension had resolved Blood pressure is climbing up. Resumed BP meds. Increase lisinopril up to 20 mg twice a day. Continue Toprol 25 mg daily Adjust meds to keep systolic between 135 and 155. CKD stage III, not far from baseline. ANGIE secondary to sepsis had resolved. UA showed only few WBC Avoid nephrotoxic drugs. Monitor urine output. Diabetes with hyperglycemia Resumed home insulin. Add sliding scale. Continue to titrate to keep blood sugar between 125 and 180. Thrombocytopenia. Appears to be chronic dating back to 2022. Acute worsening thrombocytopenia could be related to sepsis. Continue to monitor platelet count Avoid anticoagulation and tell platelets goes above 90. DVT prophylax Avoid pharmacological intervention due to thrombocytopenia with a platelet count at 84 SCD for DVT prophylaxis Encourage ambulation. Avoid SCD due to infected left leg. Functional impairment secondary to above Patient lives with his who is unable to take care of him. Requested PT OT eval and treatment Requested case management consultation to see if patient qualifies to go to SNF care. Anemia, no evidence of acute blood loss. Patient will likely require to have anemia workup to be done in the outpatient setting to be handled by PCP in collaboration with other needed outpatient providers. This may include but not limited to EGD, colonoscopy, referral to see hematology and other needed age-appropriate cancer screening. Chronic, subacute medical conditions not listed above, abnormal labs and imaging, incidental findings seen on labs and or imaging. These would need to be addressed. Could be addressed later on or in the outpatient setting by PCP collaboration with other needed outpatient providers when time and condition are appropriate. I discussed this case with his and daughter on 07/19 outside his room. I discussed this case with his daughter and son-in-law at the bedside on 07/20 I provided him information about his disease, prognosis, expectation and trajectory. I answered all her questions I called his daughter Ishaan this morning 07/23. I gave her update on his condition, status and treatment plan and the likelihood of discharge tomorrow.
--- NOTE | 2025-07-23 11:33 | CM.NOTE ---
Rounds made with Dr. Velasquez, no discharge today. Discussed with pt plan of care, continue IV antibiotics as ordered. Pt will discharge with [facility] tomorrow.
[2025-07-23] MEDS: INSULIN ASPART 300 UNIT/3 ML PEN SUBQ ×3 (11:39→21:13)
[2025-07-23 11:50] VITALS: BP 154/77; PULSE 76; O2SAT 95
--- NOTE | 2025-07-23 14:45 | SWNOTE1 ---
Plan is for patient to discharge tomorrow. BALJEET sent updated physician note and PT note to [facility]. BALJEET took home health packet to the floor for nurse to send dc orders once pt is stable for discharge.
[2025-07-23 20:00] VITALS: BP 198/93; PULSE 78; TEMP 36.7; O2SAT 95
[2025-07-23] MEDS: LISINOPRIL 20 MG TABLET PO (21:12)
[2025-07-24] VITALS (7 sets, daily range): BP systolic 114–158; BP diastolic 60–89; PULSE 55–87; TEMP 36.6–36.8; O2SAT 90–95
[2025-07-24] MEDS: ACETAMINOPHEN 325 MG TABLET 650 MG PO ×3 (06:17→21:55)
[2025-07-24] MEDS: METOPROLOL SUCCINATE 25 MG TAB.ER.24H PO (09:12)
[2025-07-24] MEDS: ASPIRIN 81 MG TAB.CHEW PO (09:12)
[2025-07-24] MEDS: LISINOPRIL 20 MG TABLET PO (09:12)
[2025-07-24] MEDS: TORSEMIDE 20 MG TABLET 10 MG PO (09:12)
[2025-07-24] MEDS: DOXYCYCLINE MONOHYDRATE 100 MG CAPSULE PO ×2 (09:12→21:55)
[2025-07-24] MEDS: INSULIN GLARGINE 300 UNIT/3 ML INSULN.PEN 14 UNIT SQ ×2 (09:13→21:57)
--- NOTE | 2025-07-24 09:58 | P.PN_ITS ---
Progress Note: Subjective Subjective Interval history: Persistent redness involving the lateral aspect of the left ankle. 10 system review otherwise negative for acute signs or symptoms Exam Narrative Exam Narrative: [pt is awake and alert. oriented to place, time and person, no confusion or disorientation. HEENT: [place] conjunctiva and NL buccal mucosa Neck: Very supple, no tenderness Endocrine: No Thyromegaly. Vascular: No JVD or carotid bruit. Lymphatic: No cervical lymphadenopathy. Chest: CTA no DTP. Heart RRR, no extra sound or murmur. Abd: Soft, no tenderness, no rebound and no rigidity. Increase abd girth therefore clinically I could not exclude the possibility of intra abd mass or organomegaly. LE: No cyanosis or clubbing, no varices or edema. Scabbing of the skin noted on the anterolateral aspect of the left graves with surrounding erythema. Some noticeable resolution of the erythema also down to the lateral aspect of the graves to the ankle. Resolution of small ankle effusion but patient is tender on the lateral aspect of the ankle. Patient is able to flex and extend his ankle fully without limitation of range of motion. +1 pitting edema in the left leg. Duplex venous is negative for DVT Neuro: A A O. Nl speech, comprehension and attention. Nl and symetrical motor and tone examination through out. No confusion or disorientation. []] Constitutional Vital Signs, click to edit/add: Last Vital Signs Temp 98.0 F 07/24/25 08:09 Pulse 72 07/24/25 08:09 Resp 16 07/24/25 08:09 BP 155/89 H 07/24/25 08:09 Pulse Ox 95 07/24/25 08:09 O2 Del Method Room Air 07/24/25 08:09 Progress Note: A&P Assessment and Plan (1) Sepsis: (2) Left leg cellulitis: Plan Sepsis present on admission associated with multiple sepsis related organ dysfunction as listed below Left leg cellulitis as described ANGIE secondary to sepsis, resolved. Confusion, disorientation, metabolic encephalopathy, septic encephalopathy, resolved. Lactic acid elevation, resolved. Leukocytosis have resolved. Hypotension, early shock, resolved. White count is trending down from 13 to 8 and down to 4.6. CRP is trending down from 13 to 9 and down to 5 Blood cultures is negative. CT abdomen does not show any acute intra-abdominal process UA is negative for UTI. Urine culture showed mixed organism. CT chest showed faint tree-in-bud opacity. Patient reported that he has moist cough. Started patient on doxycycline 100 mg twice daily Very slow improvement of the erythema involving the left ankle. Patient is able to flex it, extended, medially and laterally rotate his ankle without any limitation in range of motion. Patient has been on vancomycin and doxycycline Added triamcinolone. This may help with the local inflammation. Hypertension. Patient presented with hypotension Hypotension had resolved Blood pressure is climbing up. Resumed BP meds. Increase lisinopril up to 20 mg twice a day. Continue Toprol 25 mg daily Adjust meds to keep systolic between 135 and 155. CKD stage III, not far from baseline. ANGIE secondary to sepsis had resolved. UA showed only few WBC Avoid nephrotoxic drugs. Monitor urine output. Diabetes with hyperglycemia Resumed home insulin. Add sliding scale. Continue to titrate to keep blood sugar between 125 and 180. Thrombocytopenia. Appears to be chronic dating back to 2022. Acute worsening thrombocytopenia could be related to sepsis. Continue to monitor platelet count Avoid anticoagulation and tell platelets goes above 90. DVT prophylax Avoid pharmacological intervention due to thrombocytopenia with a platelet count at 84 SCD for DVT prophylaxis Encourage ambulation. Avoid SCD due to infected left leg. Functional impairment secondary to above Patient lives with his who is unable to take care of him. Requested PT OT eval and treatment Requested case management consultation to see if patient qualifies to go to SNF care. Anemia, no evidence of acute blood loss. Patient will likely require to have anemia workup to be done in the outpatient setting to be handled by PCP in collaboration with other needed outpatient providers. This may include but not limited to EGD, colonoscopy, referral to see hematology and other needed age-appropriate cancer screening. Chronic, subacute medical conditions not listed above, abnormal labs and imaging, incidental findings seen on labs and or imaging. These would need to be addressed. Could be addressed later on or in the outpatient setting by PCP collaboration with other needed outpatient providers when time and condition are appropriate. I discussed this case with his and daughter on 07/19 outside his room. I discussed this case with his daughter and son-in-law at the bedside on 07/20 I provided him information about his disease, prognosis, expectation and trajectory. I answered all her questions I called his daughter Ishaan this morning 07/23. I gave her update on his condition, status and treatment plan and the likelihood of discharge tomorrow.
--- NOTE | 2025-07-24 10:46 | PT.DAILY ---
Physical Therapy Daily Note PT Daily Note/Assess Start: 07/20/25 11:11 Freq: Status: Active Protocol: Document 07/24/25 10:20 CLARISSE (Rec: 07/24/25 10:46 CLARISSE [id number]) Physical Therapy Daily Note/Assessment Time In/Time Out Time In 10:20 Time Out 10:43 Subjective Subjective Reports foot and leg hurt, but wants to get up and walk . Frustrated that night nurses won't let him go to the bathroom by himself. Therapeutic Exercise Time Therapeutic Exercise 10 Minutes (minutes) Therapeutic Exercise 1 Units Therapeutic Exercise Treatment Therapeutic Exercise Standing exercise program 15 reps each. Treatment Therapeutic Activity Time Therapeutic Activity 13 Minutes (minutes) Therapeutic Activity 1 Units Therapeutic Activity Treatment Chair Transfer Modified Independent Ability Therapeutic Activity Gait greater than 500' with RW modified Ind. Comments Total Physical Therapy Time Total Therapy 23 Minutes Total Physical 2 Therapy Units Summary Daily Note Summary Improved distance with gait. Progressed to standing exercises. At this time all acute care goals are met. Patient in chair with call light in reach and all needs met post RX.
[2025-07-24] MEDS: FUROSEMIDE 40 MG/4 ML VIAL IVP (10:57)
[2025-07-24] MEDS: TRIAMCINOLONE ACETONIDE 0.1% CREAM 15 GM TUBE 1 APPLIC TOPICAL ×2 (10:58→21:53)
[2025-07-24 11:51] LABS: Hematocrit 35.0 % (42.0-54.0); Hemoglobin 12.1 g/dL (14.0-18.0); Mean Corpuscular HGB Conc 34.6 g/dL (29.9-35.2); Mean Corpuscular Hemoglobin 34.8 pg (25.9-34.0); Mean Corpuscular Volume 100.6 fL (80.0-94.0); Platelet Count 114 10^3/uL (150-450); Red Blood Count 3.48 10^6/uL (4.70-6.10); White Blood Count 5.2 10^3/uL (4.0-11.0)
[2025-07-24] MEDS: INSULIN ASPART 300 UNIT/3 ML PEN SUBQ ×3 (12:06→21:58)
[2025-07-24] MEDS: POTASSIUM CHLORIDE 10 MEQ ER TABLET 20 MEQ PO (13:58)
[2025-07-24] MEDS: HEPARIN SODIUM (PORCINE) 5,000 UNIT/ML VIAL 5000 UNIT SUBQ ×2 (13:58→21:56)
[2025-07-24] MEDS: FUROSEMIDE 20 MG/2 ML VIAL IVP (17:13)
[2025-07-25 03:56] VITALS: BP 135/66; PULSE 72; TEMP 36.8; O2SAT 93
[2025-07-25] MEDS: ACETAMINOPHEN 325 MG TABLET 650 MG PO ×3 (06:28→21:10)
[2025-07-25 06:42] LABS: Hematocrit 33.6 % (42.0-54.0); Hemoglobin 11.3 g/dL (14.0-18.0); Mean Corpuscular HGB Conc 33.6 g/dL (29.9-35.2); Mean Corpuscular Hemoglobin 34.0 pg (25.9-34.0); Mean Corpuscular Volume 101.2 fL (80.0-94.0); Platelet Count 109 10^3/uL (150-450); Red Blood Count 3.32 10^6/uL (4.70-6.10); White Blood Count 4.8 10^3/uL (4.0-11.0)
[2025-07-25 06:56] LABS: Anion Gap 8.1; Blood Urea Nitrogen 20.0 mg/dL (7.0-18.0); Calcium 8.3 mg/dL (8.5-10.1); Carbon Dioxide 31.9 mmol/L (21.0-32.0); Chloride 105 mmol/L (98-107); Estimated GFR (African America >60 (>=60 mL/min/1.73m^2); Estimated GFR (Non-African Ame 58 (>=60 mL/min/1.73m^2); Glucose 86 mg/dL (74-106); Potassium 4.0 mmol/L (3.5-5.1); Sodium 141 mmol/L (136-145)
[2025-07-25 07:13] VITALS: BP 152/81; PULSE 76; TEMP 36.8; O2SAT 94
[2025-07-25] MEDS: INSULIN GLARGINE 300 UNIT/3 ML INSULN.PEN 14 UNIT SQ (08:49)
[2025-07-25] MEDS: DOXYCYCLINE MONOHYDRATE 100 MG CAPSULE PO (08:51)
[2025-07-25] MEDS: METOPROLOL SUCCINATE 25 MG TAB.ER.24H PO (08:51)
[2025-07-25] MEDS: LISINOPRIL 20 MG TABLET PO (08:51)
[2025-07-25] MEDS: ASPIRIN 81 MG TAB.CHEW PO (08:51)
[2025-07-25] MEDS: TORSEMIDE 20 MG TABLET 10 MG PO (08:51)
[2025-07-25] MEDS: TRIAMCINOLONE ACETONIDE 0.1% CREAM 15 GM TUBE 1 APPLIC TOPICAL ×2 (08:52→21:10)
--- NOTE | 2025-07-25 09:10 | PM.PN ---
Progress Note: Subjective Subjective Interval history: Persistent but improved redness involving the lateral aspect of the left ankle. 10 system review otherwise negative for acute signs or symptoms Exam Narrative Exam Narrative: [pt is awake and alert. oriented to place, time and person, no confusion or disorientation. HEENT: [place] conjunctiva and NL buccal mucosa Neck: Very supple, no tenderness Endocrine: No Thyromegaly. Vascular: No JVD or carotid bruit. Lymphatic: No cervical lymphadenopathy. Chest: CTA no DTP. Heart RRR, no extra sound or murmur. Abd: Soft, no tenderness, no rebound and no rigidity. Increase abd girth therefore clinically I could not exclude the possibility of intra abd mass or organomegaly. LE: No cyanosis or clubbing, no varices or edema. Scabbing of the skin noted on the anterolateral aspect of the left graves with surrounding erythema which had resolved. Some noticeable resolution of the erythema also down to the lateral aspect of the graves to the ankle. Resolution of small ankle effusion but patient is tender on the lateral aspect of the ankle. Patient is able to flex and extend his ankle fully without limitation of range of motion. Patient also is able to abduct and adduct without any limitation. Trace pitting edema in the left leg. Duplex venous is negative for DVT Neuro: A A O. Nl speech, comprehension and attention. Nl and symetrical motor and tone examination through out. No confusion or disorientation. []] Constitutional Vital Signs, click to edit/add: Last Vital Signs Temp 98.2 F 07/25/25 07:13 Pulse 76 07/25/25 07:13 Resp 18 07/25/25 07:13 BP 152/81 H 07/25/25 07:13 Pulse Ox 94 L 07/25/25 07:13 O2 Del Method Room Air 07/25/25 07:13 Progress Note: Objective Labs Labs: Short CBC 07/24/25 07/25/25 Range/Units 11:03 06:19 WBC 5.2 4.8 (4.0-11.0) 10^3/uL Hgb 12.1 L 11.3 L (14.0-18.0) g/dL Hct 35.0 L 33.6 L (42.0-54.0) % Plt Count 114 L 109 L (150-450) 10^3/uL BMP 07/25/25 06:19 Sodium 141 Potassium 4.0 Chloride 105 Carbon Dioxide 31.9 BUN 20.0 H Creatinine 1.19 Glucose 86 Calcium 8.3 L Progress Note: A&P Assessment and Plan (1) Sepsis: (2) Left leg cellulitis: Plan Sepsis present on admission associated with multiple sepsis related organ dysfunction as listed below Left leg cellulitis as described ANGIE secondary to sepsis, resolved. Confusion, disorientation, metabolic encephalopathy, septic encephalopathy, resolved. Lactic acid elevation, resolved. Leukocytosis have resolved. White count is down from 13 to 5 CRP is down from 13 down to 0.9 Hypotension, early shock, resolved. Thrombocytopenia had resolved. (Patient does have chronic thrombocytopenia but the acute component had resolved ) Significant resolution of inflammatory markers and organ dysfunction Continue antibiotic Patient wants to stay another day. Hypertension. Patient presented with hypotension Hypotension had resolved Blood pressure is climbing up. Resumed BP meds. Increase lisinopril up to 20 mg twice a day. Continue Toprol 25 mg daily Adjust meds to keep systolic between 135 and 155. CKD stage III, not far from baseline. ANGIE secondary to sepsis had resolved. UA showed only few WBC Avoid nephrotoxic drugs. Monitor urine output. Diabetes with hyperglycemia Resumed home insulin. Add sliding scale. Continue to titrate to keep blood sugar between 125 and 180. Blood sugar has been under good control Thrombocytopenia. Appears to be acute on chronic dating back to 2022. Acute worsening thrombocytopenia could be related to sepsis. Platelet count had improved from 74 up to 114 DVT prophylax Avoided pharmacological intervention due to thrombocytopenia with a platelet count at 84 SCD for DVT prophylaxis Encourage ambulation. Patient was started on heparin 5000 units SQ every 8 hours the day before yesterday when his platelets started to improve. Functional impairment secondary to above Patient lives with his who is unable to take care of him. Requested PT OT eval and treatment Requested case management consultation to see if patient qualifies to go to SNF care. Anemia, no evidence of acute blood loss. Patient will likely require to have anemia workup to be done in the outpatient setting to be handled by PCP in collaboration with other needed outpatient providers. This may include but not limited to EGD, colonoscopy, referral to see hematology and other needed age-appropriate cancer screening. Chronic, subacute medical conditions not listed above, abnormal labs and imaging, incidental findings seen on labs and or imaging. These would need to be addressed. Could be addressed later on or in the outpatient setting by PCP collaboration with other needed outpatient providers when time and condition are appropriate. I discussed this case with his and daughter on 07/19 outside his room. I discussed this case with his daughter and son-in-law at the bedside on 07/20 I provided him information about his disease, prognosis, expectation and trajectory. I answered all her questions I called his daughter Ishaan this morning 07/23. I gave her update on his condition, status and treatment plan and the likelihood of discharge tomorrow.
[2025-07-25] MEDS: FUROSEMIDE 20 MG/2 ML VIAL IVP ×2 (10:14→16:01)
[2025-07-25 11:44] VITALS: BP 140/74; PULSE 82; TEMP 36.6; O2SAT 94
[2025-07-25] MEDS: INSULIN ASPART 300 UNIT/3 ML PEN SUBQ ×3 (11:49→21:12)
[2025-07-25] MEDS: HEPARIN SODIUM (PORCINE) 5,000 UNIT/ML VIAL 5000 UNIT SUBQ ×2 (14:42→21:10)
[2025-07-25 15:42] VITALS: BP 127/62; PULSE 82; TEMP 36.8; O2SAT 94
[2025-07-25] MEDS: POTASSIUM CHLORIDE 10 MEQ ER TABLET 20 MEQ PO (16:01)
[2025-07-25 19:27] VITALS: BP 120/73; PULSE 76; TEMP 36.3; O2SAT 94
[2025-07-25] MEDS: DOXYCYCLINE HYCLATE 100 MG in 0.9 % SODIUM CHLORIDE 100 ML IV (21:10)
[2025-07-25] MEDS: INSULIN GLARGINE 300 UNIT/3 ML INSULN.PEN 10 UNIT SQ (21:11)
[2025-07-25 23:20] VITALS: BP 156/69; PULSE 81; TEMP 36.4; O2SAT 95
[2025-07-26 03:22] VITALS: BP 148/84; PULSE 73; TEMP 36.4; O2SAT 91
[2025-07-26] MEDS: ACETAMINOPHEN 325 MG TABLET 650 MG PO (05:17)
[2025-07-26] MEDS: HEPARIN SODIUM (PORCINE) 5,000 UNIT/ML VIAL 5000 UNIT SUBQ (05:17)
[2025-07-26 07:13] VITALS: BP 159/88; PULSE 73; TEMP 36.6; O2SAT 95
--- NOTE | 2025-07-26 07:50 | CM.NOTE ---
Rounds made with Dr. Velasquez, pt will discharge to home today with [facility]. Pt will discharge on oral antibiotics. Pt will f/u with PCP and Dr. Law.
--- NOTE | 2025-07-26 09:05 | PM.DS1 ---
DS: Providers Provider Date of admission: 07/19/25 03:05 Primary care physician: Erich Key DO Consults: 07/20/25 Consult to Podiatry Routine Consulting Provider: Camilo Law Reason for consultation: Lt ankle cellulitis Occupational Therapy Eval and Treat Routine Reason for consultation: weakness Physical Therapy Eval and Treat Routine Reason for consultation: weakness DS: Diagnosis Discharge Diagnosis (1) Sepsis: (2) Left leg cellulitis: Plan As listed above, below and others that are not listed DS: Summary Hospital Course Hospital Course: Mr. Mauricio is an 84-year-old gentleman who came in not feeling well and was found to have the following: Sepsis present on admission associated with multiple sepsis related organ dysfunction as listed below Left leg cellulitis as described. Much improved over the last 48 hours ANGIE secondary to sepsis, resolved. Confusion, disorientation, metabolic encephalopathy, septic encephalopathy, resolved. Lactic acid elevation, resolved. Leukocytosis have resolved. White count is down from 13 to 5 CRP is down from 13 down to 0.9 Hypotension, early shock, resolved. Thrombocytopenia had resolved. (Patient does have chronic thrombocytopenia but the acute component had resolved ) Significant resolution of inflammatory markers and organ dysfunction Blood cultures negative Patient will be discharged home on oral doxycycline Patient was seen by railway signal technician who did not feel that the ankle joint is involved. Patient is able to flex, extend, abduct and adduct the ankle without any limitation. Hypertension. Patient presented with hypotension Hypotension had resolved Blood pressure is climbing up. Resumed BP meds. Increase lisinopril up to 20 mg daily Continue Toprol 25 mg daily Adjust meds to keep systolic between 135 and 155. CKD stage III, not far from baseline. ANGIE secondary to sepsis had resolved. UA showed only few WBC Avoid nephrotoxic drugs. Monitor urine output. Diabetes with hyperglycemia Resumed home insulin. Add sliding scale. Continue to titrate to keep blood sugar between 125 and 180. Blood sugar has been under good control Thrombocytopenia. Appears to be acute on chronic dating back to 2022. Acute worsening thrombocytopenia could be related to sepsis. Acute component had resolved. Platelet count had improved from 74 up to 114 DVT prophylax Avoided pharmacological intervention due to thrombocytopenia with a platelet count at 84 SCD for DVT prophylaxis Encourage ambulation. Patient was started on heparin 5000 units SQ every 8 hours several days ago when his platelets started to improve. Functional impairment secondary to above Patient lives with his who is unable to take care of him. Requested PT OT eval and treatment Requested case management consultation to see if patient qualifies to go to SNF care. Patient does not want to go to any nursing facility. He wants to go home Anemia, no evidence of acute blood loss. Patient will likely require to have anemia workup to be done in the outpatient setting to be handled by PCP in collaboration with other needed outpatient providers. This may include but not limited to EGD, colonoscopy, referral to see hematology and other needed age-appropriate cancer screening. Chronic, subacute medical conditions not listed above, abnormal labs and imaging, incidental findings seen on labs and or imaging. These would need to be addressed. Could be addressed later on or in the outpatient setting by PCP collaboration with other needed outpatient providers when time and condition are appropriate. Patient has multiple complex medical issues as listed above and others that are not listed. All appear to be stable. I do not have any clear or strong clinical justification to extend inpatient hospitalization. Patient however will require close and frequent monitoring as well as additional work-up, investigation and therapeutic intervention that could take place from this point on post discharge. That is to prevent relapse, decompensation, rehospitalization and other medical implications. Discharge medications as listed are not final or set in stone. Primary care doctor and other out patient providers will need to titrate and adjust medications as soon as the first post discharge visit based on clinical progression, vitals signs, volume status and other related organs function. I instructed patient to ask her primary care doctor to obtain [facility] record entirely to address abnormalities seen on labs and imaging that I have and have not addressed during this hospitalization, follow-up on pending blood work, imaging and pathology is if available and to follow-up on needed medical care in the outpatient setting. Time Spent with Patient Time attestation: Total time spent providing and/or coordinating discharge services: Exam Narrative Exam Narrative: [pt is awake and alert. oriented to place, time and person, no confusion or disorientation. HEENT: [place] conjunctiva and NL buccal mucosa Neck: Very supple, no tenderness Endocrine: No Thyromegaly. Vascular: No JVD or carotid bruit. Lymphatic: No cervical lymphadenopathy. Chest: CTA no DTP. Heart RRR, no extra sound or murmur. Abd: Soft, no tenderness, no rebound and no rigidity. Increase abd girth therefore clinically I could not exclude the possibility of intra abd mass or organomegaly. LE: No cyanosis or clubbing, no varices or edema.significant resolution of erythema, induration and tenderness involving the left leg laterally. Patient is able to stand up and ambulate without any difficulties. He was able to flex, extend, abduct and adduct without any major limitation in range of motion. Neuro: A A O. Nl speech, comprehension and attention. Nl and symetrical motor and tone examination through out. No confusion or disorientation. []] Constitutional Vital Signs, click to edit/add: Last Vital Signs Temp 97.8 F 07/26/25 07:13 Pulse 73 07/26/25 07:13 Resp 16 07/26/25 07:13 BP 159/88 H 07/26/25 07:13 Pulse Ox 95 07/26/25 07:13 O2 Del Method Room Air 07/26/25 07:13 DS: Data Data Completed and Pending Labs on day of discharge: Labs from last 24 hours 07/26/25 07/25/25 07/25/25 07:16 21:02 16:00 POC Glucose 115 H 145 H 214 H 07/25/25 10:12 POC Glucose 174 H Discharge Plan Discharge Disposition: Home Health Service Condition: Fair Discharge Medications: New doxycycline monohydrate 100 mg Capsule 100 mg PO BID 7 Days Qty: 14 0RF metoprolol succinate 25 mg Tablet Extended Release 24 Hr 25 mg PO QD Qty: 60 1RF Probiotic 3 billion cell capsule 3,000 mmu cells PO DAILY Qty: 15 0RF Rx Instructions: administer with a meal Continued lisinopril 20 mg tablet 10 mg PO BID potassium chloride 10 mEq tablet extended release 10 meq PO DAILY Ozempic 0.25 mg or 0.5 mg (2 mg/3 mL) pen injector 0.5 mg SUBCUT QWEEK Rx Instructions: On . torsemide 10 mg tablet 10 mg PO .COMPLEX Patient Comments: PER RETAIL FILL HISTORY ORDER IS 2 TABS ONCE A DAY BUT PER THE PATIENT'S TAKES ENTERED ABOVE Rx Instructions: 10 mg orally TWICE A DAY EVERY OTHER DAY; aspirin [Sarah Chewable Aspirin] 81 mg tablet,chewable 81 mg PO DAILY insulin glargine [Lantus U-100 Insulin] 100 unit/mL solution 10 unit subcut BID Rx Instructions: states when he wants to take it Centrum Complete 18-400 mg-mcg tablet 1 tab PO QDAY cholecalciferol (vitamin D3) 25 mcg (1,000 unit) capsule 50 mcg PO BID calcium carbonate [Oyster Shell Calcium] 500 mg calcium (1,250 mg) tablet 500 mg PO DAILY cyanocobalamin (vitamin B-12) 1,000 mcg/mL solution 1,000 mcg subcut .ONCE A MONTH Print Language: [place] Activity Restrictions/Additional Instructions: I may not have addressed or treated all of your medical illnesses or the abnormal blood work or imaging studies during this hospitalization. Please ask your primary care provider to obtain [facility] records entirely to follow up on all of the abnormal physical, laboratory, and imaging findings that I have not addressed. Please return back to the emergency room or seek medical attention if your symptoms worsen or return. Discharging you from [facility] does not mean that your medical care ends here and now. You may still need additional monitoring, work up, investigation, and treatment plan to be handled from this point on by out patient providers including your primary care provider and specialists. For any medication question, please contact your retail pharmacist or your primary care provider. Thank you. Second Language Tutor/Fish And Wildlife Technician Instructions: Discharge with [facility]. [facility] should contact you within 48 hours of discharge. If you do not hear from [facility] within 48 hours, please contact them at [phone] Forms: Portal Instructions Follow Up Appointments: Dr Key Aug 11:30
[2025-07-26] MEDS: DOXYCYCLINE HYCLATE 100 MG in 0.9 % SODIUM CHLORIDE 100 ML IV (09:13)
[2025-07-26] MEDS: TRIAMCINOLONE ACETONIDE 0.1% CREAM 15 GM TUBE 1 APPLIC TOPICAL (09:14)
[2025-07-26] MEDS: INSULIN GLARGINE 300 UNIT/3 ML INSULN.PEN 10 UNIT SQ (09:14)
[2025-07-26] MEDS: ASPIRIN 81 MG TAB.CHEW PO (09:15)
[2025-07-26] MEDS: LISINOPRIL 20 MG TABLET PO (09:15)
[2025-07-26] MEDS: TORSEMIDE 20 MG TABLET 10 MG PO (09:15)
[2025-07-26] MEDS: METOPROLOL SUCCINATE 25 MG TAB.ER.24H PO (09:15)
--- NOTE | 2025-07-26 10:44 | SWNOTE1 ---
Pt is ready for discharge today. BALJEET faxed progress note from 07/24, 07/25, discharge summary, PT note, CRF, and dc med rec to [facility].
--- NOTE | 2025-07-26 11:25 | CM.NOTE ---
2nd Important Message From Medicare discussed with pt, pt denies any questions or concerns.
[2025-07-26 12:08] VITALS: BP 151/74; PULSE 78; TEMP 36.7; O2SAT 95
[2025-07-26] MEDS: INSULIN ASPART 300 UNIT/3 ML PEN SUBQ (12:10)
--- NOTE | 2025-07-27 09:07 | PC.NURSE ---
Follow up with Dr. Law - 08/05 @ 11:30am
--- NOTE | 2025-07-27 14:19 | CM.DCFOLLOWU ---
1st attempt 07/27/25, no answer
--- NOTE | 2025-07-28 14:55 | CM.DCFOLLOWU ---
Person spoke with:patient How are you feeling? doing alright How is your pain?none Did you understand your discharge instructions?yes Do you have any questions about your discharge instructions?no Were you given any prescriptions at discharge?yes Were you able to get your prescriptions filled?yes Do you understand how to take your medications as ordered?yes Do you have any questions about your follow up appointment and do you plan to keep your follow up appointment? no questions, follow up reviewed Is there anything else that you would like to discuss?no Questions/Comments/Concerns/Other: none
== END 2025-07-26 14:04 | disposition home health service (06) | DRG 871 ==
LOC: ER 07-19 01:23 → MS 07-20 08:50
PROVIDERS: Admitting Provider Internal Medicine; Emergency Provider Emergency Medicine; PCP Internal Medicine; Visit Provider Internal Medicine
DX: A41.9 Sepsis, unspecified organism (principal); G93.41 Metabolic encephalopathy; R65.21 Severe sepsis with septic shock; N17.9 Acute kidney failure, unspecified; L03.116 Cellulitis of left lower limb; I12.9 Hypertensive chronic kidney disease with stage 1 through stage 4 chronic kidney disease, or unspecified chronic kidney disease; N18.30 Chronic kidney disease, stage 3 unspecified; E11.22 Type 2 diabetes mellitus with diabetic chronic kidney disease; D69.6 Thrombocytopenia, unspecified; Z79.4 Long term (current) use of insulin; Z79.85 Long-term (current) use of injectable non-insulin antidiabetic drugs; Z79.899 Other long term (current) drug therapy; R53.1 Weakness; M79.662 Pain in left lower leg; M25.472 Effusion, left ankle; I95.9 Hypotension, unspecified; E11.65 Type 2 diabetes mellitus with hyperglycemia; D64.9 Anemia, unspecified; R53.81 Other malaise; Z79.82 Long term (current) use of aspirin
CPT/HCPCS: 36415; 70450; 71045; 71250; 73600; 74176; 80048; 80076; 80202; 81001; 82948; 83605; 84484; 85025; 85027; 86140; 87040; 87086; 87804; 87811; 93005; 93971; 96365; 96366; 96368; 97110; 97161; 97165; 97530; 97535; 99285; G0378; J0696; J1644; J1938; J2543; J3373